=== PATIENT | female | born 1970 | race Caucasian/White ===

== ENCOUNTER 2022-03-14 11:56 | Observation (INO) | payer MEDICARE, OTHER ==
[2022-03-14] MEDS ORDERED: IPRATROPIUM-ALBUTEROL 3 ML NEB INHALATION STA (12:27)
[2022-03-14] MEDS ORDERED: methylPREDNISolone SOD SUCCI 125 MG/2 ML VIAL IV STA (12:27)
--- NOTE | 2022-03-14 12:56 | XR ---
EXAMINATION TYPE: XR chest 2V DATE OF EXAM: 03/14/2022 COMPARISON: NONE HISTORY: Difficulty in breathing. TECHNIQUE: Frontal and lateral views of the chest are obtained. FINDINGS: There is mild chronic emphysematous change without suspicious focal air space opacity, ple ural effusion, or pneumothorax seen. The cardiac silhouette size is within normal limits. Overlying EKG leads. Underlying scoliotic curvature in the upper lumbar spine is seen. IMPRESSION: Chronic emphysematous change without acute pulmonary process.
[2022-03-14 13:00] LABS: Basophils # (A) 0.1 k/uL (0-0.2); Basophils % (A) 1 %; Eosinophils # (A) 0.2 k/uL (0-0.7); Eosinophils % (A) 3 %; HCT 44.3 % (34.0-46.0); HGB 14.9 gm/dL (11.4-16.0); Lymphocytes # (A) 2.2 k/uL (1.0-4.8); Lymphocytes % (A) 40 %; MCH 33.5 pg (25.0-35.0); MCHC 33.6 g/dL (31.0-37.0); MCV 99.8 fL (80.0-100.0); Mean Platelet Volume 7.4; Monocytes # (A) 0.3 k/uL (0-1.0); Monocytes % (A) 6 %; Neutrophils # (A) 2.6 k/uL (1.3-7.7); Neutrophils % (A) 46 %; Platelet Count 308 k/uL (150-450); RBC 4.44 m/uL (3.80-5.40); RDW 12.9 % (11.5-15.5); WBC 5.5 k/uL (3.8-10.6)
[2022-03-14 13:19] LABS: INR 0.9 (<1.2); Prothrombin Time 10.3 sec (9.0-12.0)
[2022-03-14 13:21] LABS: ALT 21 U/L (4-34); AST 24 U/L (14-36); African American GFR (CKD) >90 (>60 ml/min/1.73 sqM); Albumin 4.9 g/dL (3.5-5.0); Alkaline Phosphatase 82 U/L (38-126); Anion Gap 5 mmol/L; Blood Urea Nitrogen 7 mg/dL (7-17); Calcium 9.2 mg/dL (8.4-10.2); Carbon Dioxide 30 mmol/L (22-30); Chloride 100 mmol/L (98-107); Glucose 92 mg/dL (74-99); Magnesium 2.1 mg/dL (1.6-2.3); Non-African American GFR(CKD) >90 (>60 ml/min/1.73 sqM); Potassium 4.2 mmol/L (3.5-5.1); Sodium 135 mmol/L (137-145); Total Bilirubin 0.5 mg/dL (0.2-1.3); Total Protein 7.2 g/dL (6.3-8.2)
--- NOTE | 2022-03-14 13:44 | ED ---
General Adult HPI - General Chief complaint: Shortness of Breath Stated complaint: asthma, COPD Time Seen by Provider: 03/14/22 12:16 Source: patient, RN notes reviewed Mode of arrival: ambulatory Limitations: no limitations - History of Present Illness Initial comments: This a 51-year-old female presents emergency Department with chief complaint of dyspnea. Patient states she has underlying asthma, COPD, HIV. Patient states that she is out of her medications unable to get them filled. She states she's been off for 10 days she states she's having increasing severe dyspnea and which she cannot complete a full sentence, she has difficulty and bleeding because the shortness of breath. She states she currently walk short distances. Patient reports increasing cough, cold like symptoms. Patient denies any abdominal pain. Patient states she is concerned that she is running out of her HIV medication is unable to obtain them. - Related Data Home Medications Medication Instructions Recorded Confirmed Albuterol Nebulized [Ventolin 2.5 mg INHALATION RT-Q4H PRN 03/14/22 03/14/22 Nebulized] Albuterol Sulfate [Albuterol 2 puff PO RT-Q6H PRN 03/14/22 03/14/22 Sulfate Hfa] Ascorbic Acid [Vitamin C] 500 mg PO DAILY 03/14/22 03/14/22 Bictegrav/Emtricit/Tenofov Ala 1 tab PO DAILY 03/14/22 03/14/22 [Biktarvy 50-200-25 mg Tablet] Cholecalciferol [Vitamin D3 (25 50 mcg PO DAILY 03/14/22 03/14/22 Mcg = 1000 Iu)] Ferrous Sulfate [Feosol] 325 mg PO DAILY 03/14/22 03/14/22 Fluticasone/Umeclidin/Vilanter 1 puff INHALATION RT-DAILY 03/14/22 03/14/22 [Trelegy Ellipta 200-62.5-25] Sertraline [Zoloft] 100 mg PO DAILY 03/14/22 03/14/22 traZODone HCL [Desyrel] 50 mg PO HS 03/14/22 03/14/22 Allergies Allergy/AdvReac Type Severity Reaction Status Date / Time Penicillins Allergy Anaphylaxis Verified 03/14/22 14:14 Review of Systems ROS Statement: Those systems with pertinent positive or pertinent negative responses have been documented in the HPI. ROS Other: All systems not noted in ROS Statement are negative. Past Medical History Past Medical History: Asthma, COPD Additional Past Medical History / Comment(s): hiv History of Any Multi-Drug Resistant Organisms: None Reported Past Surgical History: No Surgical Hx Reported Past Psychological History: Depression Smoking Status: Current every day smoker Past Alcohol Use History: None Reported Past Drug Use History: None Reported General Exam Limitations: no limitations General appearance: alert, in no apparent distress Head exam: Present: atraumatic, normocephalic, normal inspection Eye exam: Present: normal appearance, PERRL, EOMI. Absent: scleral icterus, conjunctival injection, periorbital swelling ENT exam: Present: normal exam, normal oropharynx, mucous membranes moist Neck exam: Present: normal inspection, full ROM. Absent: tenderness, meningismus, lymphadenopathy Respiratory exam: Present: respiratory distress, wheezes, decreased breath sounds. Absent: rales, rhonchi, stridor Cardiovascular Exam: Present: regular rate, normal rhythm, normal heart sounds. Absent: systolic murmur, diastolic murmur, rubs, gallop, clicks GI/Abdominal exam: Present: soft, normal bowel sounds. Absent: distended, tenderness, guarding, rebound, rigid Course Vital Signs 03/14/22 03/14/22 03/14/22 12:06 12:17 12:30 Temperature 98.1 F Pulse Rate 72 70 Respiratory 20 23 Rate Blood Pressure 161/109 160/100 O2 Sat by Pulse 100 97 98 Oximetry 03/14/22 03/14/22 03/14/22 13:00 13:05 13:15 Temperature Pulse Rate 63 66 65 Respiratory 20 Rate Blood Pressure 128/95 O2 Sat by Pulse 100 Oximetry 03/14/22 13:30 Temperature Pulse Rate 76 Respiratory 20 Rate Blood Pressure 138/99 O2 Sat by Pulse 99 Oximetry EKG Findings - EKG Comments: EKG Findings:: EKG performed at 12:17 sinus rhythm rate of 64 MS 157 QRS 80 QT/QTC 350/360 - EKG Results: EKG: interpreted by YIFAN Medical Decision Making - Medical Decision Making 51-year-old female presented for increasing dyspnea. Patient has Asthma, COPD, patient having acute exacerbation with no improvement after multiple treatments. Patiently admitted for IV steroids, further monitoring and she has HIV, - Lab Data Result diagrams: 03/14/22 12:33 03/14/22 12:33 Lab Results 03/14/22 03/14/22 03/14/22 Range/Units 12:33 12:33 12:33 WBC 5.5 (3.8-10.6) k/uL RBC 4.44 (3.80-5.40) m/uL Hgb 14.9 (11.4-16.0) gm/dL Hct 44.3 (34.0-46.0) % MCV 99.8 (80.0-100.0) fL MCH 33.5 (25.0-35.0) pg MCHC 33.6 (31.0-37.0) g/dL RDW 12.9 (11.5-15.5) % Plt Count 308 (150-450) k/uL MPV 7.4 Neutrophils % 46 % Lymphocytes % 40 % Monocytes % 6 % Eosinophils % 3 % Basophils % 1 % Neutrophils # 2.6 (1.3-7.7) k/uL Lymphocytes # 2.2 (1.0-4.8) k/uL Monocytes # 0.3 (0-1.0) k/uL Eosinophils # 0.2 (0-0.7) k/uL Basophils # 0.1 (0-0.2) k/uL PT 10.3 (9.0-12.0) sec INR 0.9 (<1.2) APTT 27.0 (22.0-30.0) sec Sodium 135 L (137-145) mmol/L Potassium 4.2 (3.5-5.1) mmol/L Chloride 100 (98-107) mmol/L Carbon Dioxide 30 (22-30) mmol/L Anion Gap 5 mmol/L BUN 7 (7-17) mg/dL Creatinine 0.62 (0.52-1.04) mg/dL Est GFR (CKD-EPI)AfAm >90 (>60 ml/min/1.73 sqM) Est GFR (CKD-EPI)NonAf >90 (>60 ml/min/1.73 sqM) Glucose 92 (74-99) mg/dL Plasma Lactic Acid Jarad (0.7-2.0) mmol/L Calcium 9.2 (8.4-10.2) mg/dL Magnesium 2.1 (1.6-2.3) mg/dL Total Bilirubin 0.5 (0.2-1.3) mg/dL AST 24 (14-36) U/L ALT 21 (4-34) U/L Alkaline Phosphatase 82 (38-126) U/L Troponin I (0.000-0.034) ng/mL NT-Pro-B Natriuret Pep pg/mL Total Protein 7.2 (6.3-8.2) g/dL Albumin 4.9 (3.5-5.0) g/dL 03/14/22 03/14/22 03/14/22 Range/Units 12:33 12:33 12:33 WBC (3.8-10.6) k/uL RBC (3.80-5.40) m/uL Hgb (11.4-16.0) gm/dL Hct (34.0-46.0) % MCV (80.0-100.0) fL MCH (25.0-35.0) pg MCHC (31.0-37.0) g/dL RDW (11.5-15.5) % Plt Count (150-450) k/uL MPV Neutrophils % % Lymphocytes % % Monocytes % % Eosinophils % % Basophils % % Neutrophils # (1.3-7.7) k/uL Lymphocytes # (1.0-4.8) k/uL Monocytes # (0-1.0) k/uL Eosinophils # (0-0.7) k/uL Basophils # (0-0.2) k/uL PT (9.0-12.0) sec INR (<1.2) APTT (22.0-30.0) sec Sodium (137-145) mmol/L Potassium (3.5-5.1) mmol/L Chloride (98-107) mmol/L Carbon Dioxide (22-30) mmol/L Anion Gap mmol/L BUN (7-17) mg/dL Creatinine (0.52-1.04) mg/dL Est GFR (CKD-EPI)AfAm (>60 ml/min/1.73 sqM) Est GFR (CKD-EPI)NonAf (>60 ml/min/1.73 sqM) Glucose (74-99) mg/dL Plasma Lactic Acid Jarad 1.0 (0.7-2.0) mmol/L Calcium (8.4-10.2) mg/dL Magnesium (1.6-2.3) mg/dL Total Bilirubin (0.2-1.3) mg/dL AST (14-36) U/L ALT (4-34) U/L Alkaline Phosphatase (38-126) U/L Troponin I <0.012 (0.000-0.034) ng/mL NT-Pro-B Natriuret Pep 55 pg/mL Total Protein (6.3-8.2) g/dL Albumin (3.5-5.0) g/dL Disposition Clinical Impression: COPD (chronic obstructive pulmonary disease), Acute respiratory distress, HIV disease Disposition: ADMITTED IP TO THIS HOSP Condition: Fair Is patient prescribed a controlled substance at d/c from ED?: No Referrals: None,Stated [Primary Care Provider] - 1-2 days Time of Disposition: 14:23
[2022-03-14] MEDS ORDERED: NALOXONE 0.4 MG/ML 1 ML VIAL IVP PRN (14:31)
[2022-03-14] MEDS ORDERED: IPRATROPIUM-ALBUTEROL 3 ML NEB INHALATION PRN (14:31)
[2022-03-14] MEDS: IPRATROPIUM-ALBUTEROL 3 ML NEB INHALATION SCH ×2 (17:18→21:06)
[2022-03-14] MEDS: methylPREDNISolone SOD SUCCI 125 MG/2 ML VIAL IV SCH (18:28)
[2022-03-14] MEDS ORDERED: DEXTROSE 50% SYRINGE 50 ML IVP PRN ×2 (18:50)
--- NOTE | 2022-03-14 19:08 | P.HPIM ---
History of Present Illness This is a pleasant 51 years old female with past medical history of COPD presents because of worsening dyspnea over the last 7-10 days, she stated productive cough with clear phlegm no hemoptysis. She is complaining of from chest pain in the lower lip gauge with cough only. 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 Patient is on 2 L oxygen via nasal cannula at home. She still smokes cigarettes and her 1 pack last 3 days, she states that she usually uses Chantix and she does not want a patch but she agrees to try to quit when she was counseled. Denies alcohol or illicit drugs. Vitals stable, afebrile saturating 98% on 2 L oxygen Labs reviewed showing unremarkable CBC, BMP, liver enzymes, troponin, proBNP. Influenza and Covid and RSV are undetected. Chest x-ray showing chronic emphysematous changes without acute pulmonary process. Patient was started on steroids and pulmonary team were consulted Patient states that she takes anti-HIV medication and she was following up with ID team in [place] before she moved to [place], she says she used to follow-up with Dr. Zaragoza and she will is willing to see him again Review of Systems Review of systems CONSTITUTIONAL: No fever, no malaise, no fatigue. HEENT: No recent visual problems or hearing problems. Denied any sore throat. CARDIOVASCULAR: No orthopnea, PND, no palpitations, no syncope. PULMONARY: No chest wall tenderness, no hemoptysis. GASTROINTESTINAL: No diarrhea, no nausea, no vomiting, no abdominal pain. Normoactive bowel sounds. NEUROLOGICAL: No headaches, no weakness, no numbness. HEMATOLOGICAL: Denies any bleeding or petechiae. GENITOURINARY: Denies any burning micturition, frequency, or urgency. MUSCULOSKELETAL/RHEUMATOLOGICAL: Denies any joint pain, swelling, or any muscle pain. ENDOCRINE: Denies any polyuria or polydipsia. Past Medical History Past Medical History: Asthma, COPD Additional Past Medical History / Comment(s): hiv History of Any Multi-Drug Resistant Organisms: None Reported Past Surgical History: No Surgical Hx Reported Past Psychological History: Depression Smoking Status: Current every day smoker Past Alcohol Use History: None Reported Past Drug Use History: None Reported Medications and Allergies Home Medications Medication Instructions Recorded Confirmed Type Albuterol Nebulized [Ventolin 2.5 mg INHALATION RT-Q4H PRN 03/14/22 03/14/22 History Nebulized] Albuterol Sulfate [Albuterol 2 puff PO RT-Q6H PRN 03/14/22 03/14/22 History Sulfate Hfa] Ascorbic Acid [Vitamin C] 500 mg PO DAILY 03/14/22 03/14/22 History Bictegrav/Emtricit/Tenofov Ala 1 tab PO DAILY 03/14/22 03/14/22 History [Biktarvy 50-200-25 mg Tablet] Cholecalciferol [Vitamin D3 (25 50 mcg PO DAILY 03/14/22 03/14/22 History Mcg = 1000 Iu)] Ferrous Sulfate [Feosol] 325 mg PO DAILY 03/14/22 03/14/22 History Fluticasone/Umeclidin/Vilanter 1 puff INHALATION RT-DAILY 03/14/22 03/14/22 History [Trelegy Ellipta 200-62.5-25] Sertraline [Zoloft] 100 mg PO DAILY 03/14/22 03/14/22 History traZODone HCL [Desyrel] 50 mg PO HS 03/14/22 03/14/22 History Allergies Allergy/AdvReac Type Severity Reaction Status Date / Time Penicillins Allergy Anaphylaxis Verified 03/14/22 14:14 Physical Exam Vitals: Vital Signs Temp Pulse Resp BP Pulse Ox 03/14/22 13:30 76 20 138/99 99 03/14/22 13:15 65 03/14/22 13:05 66 03/14/22 13:00 63 20 128/95 100 03/14/22 12:30 70 23 160/100 98 03/14/22 12:17 97 03/14/22 12:06 98.1 F 72 20 161/109 100 Intake and Output 03/13/22 03/14/22 03/14/22 22:59 06:59 14:59 Other: Weight 56.245 kg GENERAL: The patient is alert and oriented x3, not in any acute distress. Well developed, well nourished. HEENT: Pupils are round and equally reacting to light. EOMI. No scleral icterus. No conjunctival pallor. Normocephalic, atraumatic. No pharyngeal erythema. No thyromegaly. CARDIOVASCULAR: S1 and S2 present. No murmurs, rubs, or gallops. -PULMONARY: Chest is clear to auscultation, Bilateral expiratory wheezing. No crackles. ABDOMEN: Soft, nontender, nondistended, normoactive bowel sounds. No palpable organomegaly. MUSCULOSKELETAL: No joint swelling or deformity. EXTREMITIES: No cyanosis, clubbing, or pedal edema. NEUROLOGICAL: Gross neurological examination did not reveal any focal deficits. SKIN: No rashes. no petechiae. Results CBC & Chem 7: 03/14/22 12:33 03/14/22 12:33 Labs: Abnormal Lab Results - Last 24 Hours (Table) 03/14/22 Range/Units 12:33 Sodium 135 L (137-145) mmol/L Assessment and Plan Assessment: Acute COPD exacerbation Chronic hypoxic respiratory failure Patient with known diagnosis of HIV on a treatment Plan: Continue with IV Solu-Medrol Continue with bronchodilator Continue with home dose of oxygen Pulmonary consult Consult Dr. Zaragoza and resume her HIV medication Discontinue iron pills as hemoglobin is normal Labs and medication were reviewed.. Continue same treatment. Continue with symptomatic treatment. Resume home medication. Monitor lytes and vitals. DVT and GI prophylaxis. Further recommendations as per clinical course of the patient DVT prophylaxis: Subcutaneous heparin GI Prophylaxis: Pepcid
[2022-03-14] MEDS: traZODone HCL 50 MG TAB PO SCH (21:13)
[2022-03-14] MEDS: FAMOTIDINE 20 MG/2 ML VIAL IV SCH (21:13)
[2022-03-14] MEDS: HEPARIN SODIUM,PORCINE/PF 5,000 UNIT/0.5 ML SYRINGE SQ SCH (21:13)
[2022-03-14 22:08] LABS: Glucose,Whole Blood 168 mg/dL (70-110)
[2022-03-14] MEDS: INSULIN ASPART (NovoLOG) 100 UNIT/ML VIAL SQ SCH (22:14)
[2022-03-15] MEDS: methylPREDNISolone SOD SUCCI 125 MG/2 ML VIAL IV SCH ×4 (00:11→16:59)
[2022-03-15 06:53] LABS: Glucose,Whole Blood 143 mg/dL (70-110)
[2022-03-15] MEDS: INSULIN ASPART (NovoLOG) 100 UNIT/ML VIAL SQ SCH ×4 (06:56→21:49)
--- NOTE | 2022-03-15 06:57 | P.CNPUL ---
History of Present Illness Consult date: 03/15/22 Requesting physician: Kendall E Airstides Reason for consult: dyspnea, cough, COPD, hypoxemia Chief complaint: Shortness of breath, cough, wheezing. History of present illness: Pulmonary consult dated 03/15/2022. 51-year-old female who recently moved back to [place] from [place]. The patient does not have a family doctor. She presented to the emergency room on March 14, complaining of increasing shortness of breath. She has had a history of COPD, and HIV. The patient does not have a family doctor in this area. She's been smoking for many years. She comes in complaining of shortness of breath, cough, with occasional phlegm production, and wheezing. Currently, she is on 2 L of oxygen. She's not receiving any IV fluids. At home, she typically will have a nebulizer machine, a concentrator, an albuterol inhaler, and a Trelegy inhaler. She does not have any medications available to her at this time. She was admitted to the emergency department with a COPD exacerbation. CBC was normal. Coagulation studies were normal. Chemistry was essentially normal. Glucose 168. Troponin was negative. N-terminal proBNP was 55. Testing for influenza A and influenza B, RSV, and coronavirus, were all negative. Chest x-ray showed chronic emphysematous changes without acute abnormality. Review of Systems REVIEW OF SYSTEMS: CONSTITUTIONAL: [Negative.] NEUROLOGIC: [ Negative.] HEENT: [ Negative.] CARDIAC: [Negative.] PULMONARY: Shortness of breath, cough, and wheezing, with occasional phlegm production. GI: [Negative.] : [Negative.] RHEUMATOLOGIC: [ Negative.] IMMUNOLOGIC: [ Negative.] ENDOCRINE: [Negative. ] DERMATOLOGIC: [Negative.] Past Medical History Past Medical History: Asthma, COPD Additional Past Medical History / Comment(s): hiv History of Any Multi-Drug Resistant Organisms: None Reported Past Surgical History: No Surgical Hx Reported Past Psychological History: Depression Smoking Status: Current every day smoker Past Alcohol Use History: None Reported Past Drug Use History: None Reported Medications and Allergies Home Medications Medication Instructions Recorded Confirmed Type Albuterol Nebulized [Ventolin 2.5 mg INHALATION RT-Q4H PRN 03/14/22 03/14/22 History Nebulized] Albuterol Sulfate [Albuterol 2 puff PO RT-Q6H PRN 03/14/22 03/14/22 History Sulfate Hfa] Ascorbic Acid [Vitamin C] 500 mg PO DAILY 03/14/22 03/14/22 History Bictegrav/Emtricit/Tenofov Ala 1 tab PO DAILY 03/14/22 03/14/22 History [Biktarvy 50-200-25 mg Tablet] Cholecalciferol [Vitamin D3 (25 50 mcg PO DAILY 03/14/22 03/14/22 History Mcg = 1000 Iu)] Ferrous Sulfate [Feosol] 325 mg PO DAILY 03/14/22 03/14/22 History Fluticasone/Umeclidin/Vilanter 1 puff INHALATION RT-DAILY 03/14/22 03/14/22 History [Trelegy Ellipta 200-62.5-25] Sertraline [Zoloft] 100 mg PO DAILY 03/14/22 03/14/22 History traZODone HCL [Desyrel] 50 mg PO HS 03/14/22 03/14/22 History Allergies Allergy/AdvReac Type Severity Reaction Status Date / Time Penicillins Allergy Anaphylaxis Verified 03/14/22 14:14 Physical Exam Osteopathic Statement: *. No significant issues noted on an osteopathic structural exam other than those noted in the History and Physical/Consult. Vitals: Vital Signs Temp Pulse Pulse Resp BP BP Pulse Ox 03/15/22 02:49 97.6 F 71 19 102/70 94 L 03/14/22 19:59 98.8 F 78 18 120/72 99 03/14/22 18:09 98.6 F 76 17 139/82 98 03/14/22 17:57 97.8 F 82 20 137/82 99 03/14/22 17:34 72 03/14/22 17:18 68 03/14/22 17:00 71 21 130/80 100 03/14/22 16:00 66 20 131/75 98 03/14/22 15:00 67 22 124/93 99 03/14/22 14:00 74 20 153/75 100 03/14/22 13:30 76 20 138/99 99 03/14/22 13:15 65 03/14/22 13:05 66 03/14/22 13:00 63 20 128/95 100 03/14/22 12:30 70 23 160/100 98 03/14/22 12:17 97 03/14/22 12:06 98.1 F 72 20 161/109 100 Intake and Output 03/14/22 03/14/22 03/15/22 14:59 22:59 06:59 Other: Voiding Method Toilet # Voids 2 2 Weight 56.245 kg 56.245 kg No acute distress, oriented 3. No conversational dyspnea, audible wheezing, or use of accessory muscles. HEENT examination is grossly unremarkable. Neck supple. Full range of motion. No adenopathy thyromegaly or neck vein distention. Cardiovascular examination reveals regular rhythm rate. S1-S2 normal. No S3 or S4. No discernible murmur noted. Heart rate 71 bpm. Lungs reveal diffuse and course, bilateral inspiratory and expiratory rhonchi and wheezes. No crackles. Chest is rather noisy. 2 L saturation is 94%. Abdomen soft bowel sounds are heard. No masses or tenderness. Extremities are intact. No cyanosis clubbing or edema. Skin is without rash or lesion. Neurologic examination is brief but nonfocal. Results - Laboratory Findings CBC and BMP: 03/14/22 12:33 03/14/22 12:33 PT/INR, D-dimer PT 10.3 sec (9.0-12.0) 03/14/22 12:33 INR 0.9 (<1.2) 03/14/22 12:33 Abnormal lab findings: Abnormal Labs 03/14/22 03/14/22 12:33 22:07 Sodium 135 L POC Glucose (mg/dL) 168 H - Diagnostic Findings Chest x-ray: image reviewed Assessment and Plan Assessment: Acute COPD exacerbation, likely complicated by purulent tracheobronchitis. History of ongoing tobacco use with nicotine addition. History of HIV. Plan: Plan dated 03/15/2022. The patient is getting Solu-Medrol 60 mg every 6 hours. She is also getting 4 times a day and when necessary albuterol sulfate and ipratropium bromide. I will add Symbicort 160/4.5, 2 puffs twice a day, and a short course of oral antibiotics. She's counseled about the importance of smoking cessation. Nicotine patch should be added. We'll continue to follow. She will need to get a family doctor in this area. Time with Patient: Greater than 30
[2022-03-15] MEDS ORDERED: FERROUS SULFATE 325 MG TAB PO SCH (09:00)
[2022-03-15] MEDS: NICOTINE 14MG/24HR PATCH TRANSDERM SCH (09:02)
[2022-03-15] MEDS: CHOLECALCIFEROL 25 MCG (1000 IU) TABLET PO SCH (09:02)
[2022-03-15] MEDS: SERTRALINE 100 MG TAB PO SCH (09:02)
[2022-03-15] MEDS: FAMOTIDINE 20 MG/2 ML VIAL IV SCH (09:02)
[2022-03-15] MEDS: ASCORBIC ACID 500 MG TAB PO SCH (09:02)
[2022-03-15] MEDS: AZITHROMYCIN 500 MG TAB PO SCH (09:02)
[2022-03-15] MEDS: HEPARIN SODIUM,PORCINE/PF 5,000 UNIT/0.5 ML SYRINGE SQ SCH ×2 (09:02→21:49)
[2022-03-15] MEDS: IPRATROPIUM-ALBUTEROL 3 ML NEB INHALATION SCH ×4 (09:11→19:50)
[2022-03-15] MEDS: SYMBICORT 160-4.5 MCG INHALER INHALATION SCH ×2 (09:11→19:50)
[2022-03-15 12:05] LABS: Glucose,Whole Blood 162 mg/dL (70-110)
--- NOTE | 2022-03-15 12:50 | P.PN ---
Subjective This is a pleasant 51 years old female with past medical history of COPD presents because of worsening dyspnea over the last 7-10 days, she stated p roductive cough with clear phlegm no hemoptysis. She is complaining of from chest pain in the lower lip gauge with cough only. 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 Patient is on 2 L oxygen via nasal cannula at home. She still smokes cigarettes and her 1 pack last 3 days, she states that she usually uses Chantix and she does not want a patch but she agrees to try to quit when she was counseled. Denies alcohol or illicit drugs. Vitals stable, afebrile saturating 98% on 2 L oxygen Labs reviewed showing unremarkable CBC, BMP, liver enzymes, troponin, proBNP. Influenza and Covid and RSV are undetected. Chest x-ray showing chronic emphysematous changes without acute pulmonary process. Patient was started on steroids and pulmonary team were consulted Patient states that she takes anti-HIV medication and she was following up with ID team in [place] before she moved to [place], she says she used to follow-up with Dr. Zaragoza and she will is willing to see him again 03/15/2012 She is sitting up in bed, looks comfortable, minimal wheezing and dyspnea/tachypnea at rest. Chest x-ray showed chronic emphysematous changes Continue with IV Solu-Medrol Pulmonary consult Possible discharge in 24-48 or once pulmonary team clear The patient for dc Objective - Vital Signs Vital signs: Vital Signs Temp 98.1 F 03/15/22 07:00 Pulse 68 03/15/22 12:42 Resp 16 03/15/22 07:00 BP 116/73 03/15/22 07:00 Pulse Ox 98 03/15/22 09:14 FiO2 Intake & Output 03/14/22 03/15/22 03/15/22 18:59 06:59 18:59 Weight 56.245 kg Other: Voiding Method Toilet # Voids 2 - Exam GENERAL: The patient is alert and oriented x3, not in any acute distress. Well developed, well nourished. HEENT: Pupils are round and equally reacting to light. EOMI. No scleral icterus. No conjunctival pallor. Normocephalic, atraumatic. No pharyngeal erythema. No thyromegaly. CARDIOVASCULAR: S1 and S2 present. No murmurs, rubs, or gallops. -PULMONARY: Chest is clear to auscultation, scattered wheezing. No crepitation ABDOMEN: Soft, nontender, nondistended, normoactive bowel sounds. No palpable organomegaly. MUSCULOSKELETAL: No joint swelling or deformity. EXTREMITIES: No cyanosis, clubbing, or pedal edema. NEUROLOGICAL: Gross neurological examination did not reveal any focal deficits. SKIN: No rashes. no petechiae. - Labs CBC & Chem 7: 03/14/22 12:33 03/14/22 12:33 Labs: Abnormal Lab Results - Last 24 Hours (Table) 03/14/22 03/14/22 03/15/22 Range/Units 12:33 22:07 06:52 Sodium 135 L (137-145) mmol/L POC Glucose (mg/dL) 168 H 143 H (70-110) mg/dL 03/15/22 Range/Units 12:03 Sodium (137-145) mmol/L POC Glucose (mg/dL) 162 H (70-110) mg/dL Assessment and Plan Assessment: Acute COPD exacerbation Chronic hypoxic respiratory failure Patient with known diagnosis of HIV on a treatment Plan: Continue with IV Solu-Medrol Continue with bronchodilator Continue with home dose of oxygen Pulmonary consult Consult Dr. Zaragoza and resume her HIV medication Discontinue iron pills as hemoglobin is normal Labs and medication were reviewed.. Continue same treatment. Continue with symptomatic treatment. Resume home medication. Monitor lytes and vitals. DVT and GI prophylaxis. Further recommendations as per clinical course of the patient DVT prophylaxis: Subcutaneous heparin GI Prophylaxis: Pepcid
[2022-03-15 16:32] LABS: Glucose,Whole Blood 155 mg/dL (70-110)
[2022-03-15 21:46] LABS: Glucose,Whole Blood 181 mg/dL (70-110)
[2022-03-15] MEDS: FAMOTIDINE 20 MG TAB PO SCH (21:48)
[2022-03-15] MEDS: traZODone HCL 50 MG TAB PO SCH (21:48)
--- NOTE | 2022-03-15 23:56 | P.CONS ---
History of Present Illness - Reason for Consult Consult date: 03/15/22 - History of Present Illness Patient is a 51-year female with a past medical history difficult for HIV for many years patient currently has been on Biktarvy and the patient has previously followed with me however subsequently moved to [place] and has been following with an ID physician there patient has moved back to [place] however has not established with me in the office patient presented to [facility] yesterday afternoon for evaluation of increasing shortness of breath in this patient symptom has been getting worse for a day or 2 before presentation to the hospital patient mention she did use some inhaler without any improvement has been complaining of mostly shortness of breath but denies have any worsening cough or sputum production denies having any fever or any chills no nausea vomit ing no abdominal pain or any diarrhea patient on presentation to the hospital was afebrile and no fever has been recorded subsequently patient did have normal white count kidney function has been normal liver enzymes are normal patient did have a negative COVID RSV and influenza PCR patient did have a chest x-ray chronic emphysematous changes without acute process patient was admitted to hospital for COPD exacerbation infectious he was consulted for management of her HIV during this hospital stay and need for antibiotic therapy Past Medical History Past Medical History: Asthma, COPD Additional Past Medical History / Comment(s): hiv History of Any Multi-Drug Resistant Organisms: None Reported Past Surgical History: No Surgical Hx Reported Past Psychological History: Depression Smoking Status: Current every day smoker Past Alcohol Use History: None Reported Past Drug Use History: None Reported Medications and Allergies Home Medications Medication Instructions Recorded Confirmed Type Albuterol Nebulized [Ventolin 2.5 mg INHALATION RT-Q4H PRN 03/14/22 03/14/22 History Nebulized] Albuterol Sulfate [Albuterol 2 puff PO RT-Q6H PRN 03/14/22 03/14/22 History Sulfate Hfa] Ascorbic Acid [Vitamin C] 500 mg PO DAILY 03/14/22 03/14/22 History Bictegrav/Emtricit/Tenofov Ala 1 tab PO DAILY 03/14/22 03/14/22 History [Biktarvy 50-200-25 mg Tablet] Cholecalciferol [Vitamin D3 (25 50 mcg PO DAILY 03/14/22 03/14/22 History Mcg = 1000 Iu)] Ferrous Sulfate [Feosol] 325 mg PO DAILY 03/14/22 03/14/22 History Fluticasone/Umeclidin/Vilanter 1 puff INHALATION RT-DAILY 03/14/22 03/14/22 History [Trelegy Ellipta 200-62.5-25] Sertraline [Zoloft] 100 mg PO DAILY 03/14/22 03/14/22 History traZODone HCL [Desyrel] 50 mg PO HS 03/14/22 03/14/22 History Bictegrav/Emtricit/Tenofov Ala 1 each PO DAILY #30 tab 03/15/22 Rx [Biktarvy 50-200-25 mg Tablet] Allergies Allergy/AdvReac Type Severity Reaction Status Date / Time Penicillins Allergy Anaphylaxis Verified 03/14/22 14:14 Physical Exam Vitals: Vital Signs Temp Pulse Pulse Resp BP BP Pulse Ox 03/15/22 09:22 74 03/15/22 09:14 98 03/15/22 09:11 68 03/15/22 07:00 98.1 F 68 16 116/73 100 03/15/22 02:49 97.6 F 71 19 102/70 94 L 03/14/22 19:59 98.8 F 78 18 120/72 99 03/14/22 18:09 98.6 F 76 17 139/82 98 03/14/22 17:57 97.8 F 82 20 137/82 99 03/14/22 17:34 72 03/14/22 17:18 68 03/14/22 17:00 71 21 130/80 100 03/14/22 16:00 66 20 131/75 98 03/14/22 15:00 67 22 124/93 99 03/14/22 14:00 74 20 153/75 100 03/14/22 13:30 76 20 138/99 99 03/14/22 13:15 65 03/14/22 13:05 66 03/14/22 13:00 63 20 128/95 100 03/14/22 12:30 70 23 160/100 98 03/14/22 12:17 97 03/14/22 12:06 98.1 F 72 20 161/109 100 Intake and Output 03/14/22 03/15/22 03/15/22 22:59 06:59 14:59 Other: Voiding Method Toilet # Voids 2 2 Weight 56.245 kg Results CBC & Chem 7: 03/14/22 12:33 03/14/22 12:33 Labs: Abnormal Lab Results - Last 24 Hours (Table) 03/14/22 03/14/22 03/15/22 Range/Units 12:33 22:07 06:52 Sodium 135 L (137-145) mmol/L POC Glucose (mg/dL) 168 H 143 H (70-110) mg/dL Assessment and Plan Plan: 1patient with HIV for many years for the patient has been on Biktarvy and apparently the patient did have a controlled virological response with it prescription for Biktarvy has been sent to the pharmacy downstairs RN has been instructed was the patient received her prescription to send it on to the pharmacy to label it so the patient can receive her Biktarvy while the patient is in the hospital. 2 Patient with increasing shortness of breath more likely COPD exacerbation clinically not behaving as pneumonia no need for antibiotic therapy continue with the steroids and bronchodilator per pulmonary We will follow on clinical condition and cultures to further adjust medication if needed Thank you for this consultation will follow this patient along with you Time with Patient: Greater than 30
[2022-03-16] MEDS: methylPREDNISolone SOD SUCCI 125 MG/2 ML VIAL IV SCH ×2 (00:23→06:13)
[2022-03-16 06:08] LABS: Glucose,Whole Blood 137 mg/dL (70-110)
[2022-03-16] MEDS: INSULIN ASPART (NovoLOG) 100 UNIT/ML VIAL SQ SCH (06:11)
[2022-03-16 06:51] VITALS: BP 118/69; RESP 18; TEMP 97.7
--- NOTE | 2022-03-16 06:52 | P.PN ---
Subjective Progress Note Date: 03/16/22 Principal diagnosis: Shortness of breath. Pulmonary consult dated 03/15/2022. 51-year-old female who recently moved back to [place] from [place]. The patient does not have a family doctor. She presented to the emergency room on March 14, complaining of increasing shortness of breath. She has had a history of COPD, and HIV. The patient does not have a family doctor in this area. She's been smoking for many years. She comes in complaining of shortness of breath, cough, with occasional phlegm production, and wheezing. Currently, she is on 2 L of oxygen. She's not receiving any IV fluids. At home, she typically will have a nebulizer machine, a concentrator, an albuterol inhaler, and a Trelegy inhaler. She does not have any medications available to her at this time. She was admitted to the emergency department with a COPD exacerbation. CBC was normal. Coagulation studies were normal. Chemistry was essentially normal. Glucose 168. Troponin was negative. N-terminal proBNP was 55. Testing for influenza A and influenza B, RSV, and coronavirus, were all negative. Chest x-ray showed chronic emphysematous changes without acute abnormality. Progress note dated 03/16/2022. 51-year-old female, seen yesterday in consultation. She is seen again today is 632. The patient has a history of COPD, and is HIV positive. She came in basically with a COPD exacerbation. Has a history of ongoing heavy tobacco use. Currently, she is on room air. She's not receiving any IV fluids. She is doing much better today than she did yesterday. No new labs today other than a glucose of 137. The patient was given Zithromax, Symbicort, albuterol sulfate, ipratropium bromide, and Solu-Medrol. In my opinion, the patient has improved significantly since yesterday, and could be considered for possible discharge. Objective - Vital Signs Vital signs: Vital Signs Temp 97.9 F 03/16/22 03:39 Pulse 86 03/16/22 03:39 Resp 16 03/16/22 03:39 BP 113/73 03/16/22 03:39 Pulse Ox 92 L 03/16/22 03:39 FiO2 Intake & Output 03/15/22 03/15/22 03/16/22 06:59 18:59 06:59 Intake Total 236 Balance 236 Intake: Oral 236 Other: Voiding Method Toilet Toilet # Voids 2 1 1 - Exam No acute distress, oriented 3. No conversational dyspnea, audible wheezing, or use of accessory muscles. HEENT examination is grossly unremarkable. Neck supple. Full range of motion. No adenopathy thyromegaly or neck vein distention. Cardiovascular examination reveals regular rhythm rate. S1-S2 normal. No S3 or S4. No discernible murmur noted. Heart rate 86 bpm. Lungs reveal much improved bilateral breath sounds. Minimal scattered rhonchi. No wheezes or crackles. Breath sounds are diminished throughout. Abdomen soft bowel sounds are heard. No masses or tenderness. Extremities are intact. No cyanosis clubbing or edema. Skin is without rash or lesion. Neurologic examination is brief but nonfocal. - Labs CBC & Chem 7: 03/14/22 12:33 03/14/22 12:33 Labs: Abnormal Lab Results - Last 24 Hours (Table) 03/15/22 03/15/22 03/15/22 Range/Units 06:52 12:03 16:29 POC Glucose (mg/dL) 143 H 162 H 155 H (70-110) mg/dL 03/15/22 03/16/22 Range/Units 21:45 06:07 POC Glucose (mg/dL) 181 H 137 H (70-110) mg/dL Assessment and Plan Assessment: Acute COPD exacerbation, likely complicated by purulent tracheobronchitis. History of ongoing tobacco use with nicotine addition. History of HIV. Plan: Plan dated 03/15/2022. The patient is getting Solu-Medrol 60 mg every 6 hours. She is also getting 4 times a day and when necessary albuterol sulfate and ipratropium bromide. I will add Symbicort 160/4.5, 2 puffs twice a day, and a short course of oral antibiotics. She's counseled about the importance of smoking cessation. Nicotine patch should be added. We'll continue to follow. She will need to get a family doctor in this area. Plan dated 03/16/2022. The patient's much improved. She was not receiving any supplemental fluids, or oxygen. She sitting up in bed. There is no conversational dyspnea, or audible wheezing, or use of accessory muscles. In my opinion, the patient's much better. She is counseled about the importance of smoking cessation. She will need to find a family doctor. She could also be considered for discharge. I sent her home on albuterol, Symbicort, or equivalent, and prednisone with a burst and taper. Prednisone should be 40 mg, for 4 days, 30 mg for 4 days, 20 mg for 4 days, 10 mg 4 days, then stop. The patient's overall prognosis is guarded. I seriously doubt that she'll stop smoking. Time with Patient: Less than 30
[2022-03-16] MEDS: SYMBICORT 160-4.5 MCG INHALER INHALATION SCH (08:14)
[2022-03-16] MEDS: IPRATROPIUM-ALBUTEROL 3 ML NEB INHALATION SCH ×2 (08:15→11:20)
[2022-03-16] MEDS: HEPARIN SODIUM,PORCINE/PF 5,000 UNIT/0.5 ML SYRINGE SQ SCH (09:52)
[2022-03-16] MEDS: NICOTINE 14MG/24HR PATCH TRANSDERM SCH (09:52)
[2022-03-16] MEDS: AZITHROMYCIN 500 MG TAB PO SCH (09:53)
[2022-03-16] MEDS: CHOLECALCIFEROL 25 MCG (1000 IU) TABLET PO SCH (09:53)
[2022-03-16] MEDS: FAMOTIDINE 20 MG TAB PO SCH (09:53)
[2022-03-16] MEDS: SERTRALINE 100 MG TAB PO SCH (09:53)
[2022-03-16] MEDS: ASCORBIC ACID 500 MG TAB PO SCH (09:53)
[2022-03-16 11:29] VITALS: PULSE 78
[2022-03-16 12:09] LABS: Glucose,Whole Blood 132 mg/dL (70-110)
--- NOTE | 2022-03-16 22:23 | P.DS ---
Providers Date of admission: 03/14/22 15:22 Attending physician: Kendall Irving MD Consults: 03/14/22 14:31 Consult Physician Routine Consulting Provider: Davin Pro Consult Reason/Comments: copd Do you want consulting provider notified?: Yes 03/14/22 19:04 Consult Physician Routine Consulting Provider: Tushar Zaragoza Consult Reason/Comments: HIV Do you want consulting provider notified?: Yes, Notify in am Primary care physician: Stated None Hospital Course: Diagnoses: Acute COPD exacerbation Chronic hypoxic respiratory failure Patient with known diagnosis of HIV on a treatment Hospital course: This is a pleasant 51 years old female with past medical history of COPD presents because of worsening dyspnea over the last 7-10 days, she stated productive cough with clear phlegm no hemoptysis. She is complaining of from chest pain in the lower lip gauge with cough only. 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 Patient is on 2 L oxygen via nasal cannula at home. Patient admitted with COPD exacerbation and she was treated with IV Solu-Medrol, bronchodilator and short course of oral antibiotics and she showed interval improvement in her breathing is significantly improved and she does not need supplemental oxygen. She is on 2 L oxygen at home but she does not use it all the time and she has tabletop oxygen concentrator at home as well. On the day of discharge she denies chest pain or dyspnea. No GI or urinary symptoms. No fever. She is breathing quietly with his having muscles and she agrees to go home today Patient was cleared for discharge by welding machine operator plasma arc Problems and management plan were discussed with the patient and he verbalized understanding and acceptance Patient was found stable and can be discharged home in guarded prognosis however he needs follow-up as an outpatient. Patient was instructed to follow up with PCP within one week and patient agrees Patient was instructed to call her insurance provider to find PCP and she agrees Patient was instructed to follow up with Dr. Pro in [address] Zaragoza for her HIV treatment in 2 weeks and she agrees Physical exam Gen: patient is a AAOx3, no distress CVS: S1-S2, RRR, no murmur Lungs: B/L CTA, no wheezing Abdomen: soft, no distention, no tenderness, positive bowel sounds Extremity: no leg edema or induration Time spent more than 35 minutes Patient Condition at Discharge: Good Plan - Discharge Summary Discharge Rx Participant: No New Discharge Prescriptions: New INSULIN ASPART (NovoLOG) [NovoLOG (formulary)] 0 unit SQ ACHS each predniSONE 10 mg PO DIRECTED #40 tab Bictegrav/Emtricit/Tenofov Ala [Biktarvy 50-200-25 mg Tablet] 1 each PO DAILY #30 tab Famotidine [Pepcid] 20 mg PO BID #60 tab Budesonide-Formot 160-4.5 Mcg [Symbicort 160-4.5 Mcg Inhaler] 2 puff INHALATION RT-BID 30 Days #1 each Continue Albuterol Sulfate [Albuterol Sulfate Hfa] 2 puff PO RT-Q6H PRN PRN Reason: Shortness Of Breath traZODone HCL [Desyrel] 50 mg PO HS #15 tab Albuterol Nebulized [Ventolin Nebulized] 2.5 mg INHALATION RT-Q4H PRN #10 ml PRN Reason: Shortness Of Breath Cholecalciferol [Vitamin D3 (25 Mcg = 1000 Iu)] 50 mcg PO DAILY #20 tab Sertraline [Zoloft] 100 mg PO DAILY #30 tab Ascorbic Acid [Vitamin C] 500 mg PO DAILY #30 tab Discontinued Fluticasone/Umeclidin/Vilanter [Trelegy Ellipta 200-62.5-25] 1 puff INHALATION RT-DAILY Bictegrav/Emtricit/Tenofov Ala [Biktarvy 50-200-25 mg Tablet] 1 tab PO DAILY No Action Ferrous Sulfate [Feosol] 325 mg PO DAILY Discharge Medication List Albuterol Sulfate [Albuterol Sulfate Hfa] 2 puff PO RT-Q6H PRN 03/14/22 [History] Ferrous Sulfate [Feosol] 325 mg PO DAILY 03/14/22 [History] Bictegrav/Emtricit/Tenofov Ala [Biktarvy 50-200-25 mg Tablet] 1 each PO DAILY #30 tab 03/15/22 [Rx] Albuterol Nebulized [Ventolin Nebulized] 2.5 mg INHALATION RT-Q4H PRN #10 ml 03/16/22 [Rx] Ascorbic Acid [Vitamin C] 500 mg PO DAILY #30 tab 03/16/22 [Rx] Budesonide-Formot 160-4.5 Mcg [Symbicort 160-4.5 Mcg Inhaler] 2 puff INHALATION RT-BID 30 Days #1 each 03/16/22 [Rx] Cholecalciferol [Vitamin D3 (25 Mcg = 1000 Iu)] 50 mcg PO DAILY #20 tab 03/16/22 [Rx] Famotidine [Pepcid] 20 mg PO BID #60 tab 03/16/22 [Rx] INSULIN ASPART (NovoLOG) [NovoLOG (formulary)] 0 unit SQ ACHS each 03/16/22 [Rx] Sertraline [Zoloft] 100 mg PO DAILY #30 tab 03/16/22 [Rx] predniSONE 10 mg PO DIRECTED #40 tab 03/16/22 [Rx] traZODone HCL [Desyrel] 50 mg PO HS #15 tab 03/16/22 [Rx] Follow up Appointment(s)/Referral(s): Davin Pro DO [Doctor of Osteopathic Medicine] - 04/15/22 10:15 am None,Stated [Primary Care Provider] - 1-2 days Tushar Zaragoza MD [STAFF PHYSICIAN] - 03/28/22 2:00 pm Patient Instructions/Handouts: Famotidine (By mouth), Trazodone (By mouth), Albuterol (By breathing), Prednisone (By mouth), Ascorbic Acid (By mouth), Sertraline (By mouth), Vitamin D (By mouth), Budesonide/Formoterol (By breathing), Bictegravir/Emtricitabine/Tenofovir Alafenamide (By mouth), How to Stop Smoking (DC), COPD (Chronic Obstructive Pulmonary Disease) (DC), Basic Carbohydrate Counting (DC) Activity/Diet/Wound Care/Special Instructions: Low carbohydrate diet Activity is restricted till you see your doctor Call your health insurance provider to find nearby primary care doctor, call and make appointment within 1 week Discharge Disposition: HOME SELF-CARE
== END 2022-03-16 13:32 | disposition home or self-care (01) ==
LOC: EC 11:56 → 6NMEDSUR 15:22
PROVIDERS: ADMIT Internal Medicine; ATTEND Internal Medicine
DX: J44.1 Chronic obstructive pulmonary disease with (acute) exacerbation (principal); J96.11 Chronic respiratory failure with hypoxia; F32.A Depression, unspecified; B20 Human immunodeficiency virus [HIV] disease; F17.210 Nicotine dependence, cigarettes, uncomplicated; Z79.899 Other long term (current) drug therapy; Z88.0 Allergy status to penicillin; Z20.822 Contact with and (suspected) exposure to COVID-19
CPT/HCPCS: 96372 ×3; 96375; 96376 ×3; 96374; 99285; 36415; 94640 ×6; 94760 ×2; 93005; 83880; 80053; 83605; 83735; 84484; 85025; 85610; 85730; 83036; 87636; 71046; G0378 ×3; S4990 ×2; J2930 ×3; J1644 ×3

== ENCOUNTER → 2023-03-10 | Outpatient (CLI) | payer MEDICARE ==
--- NOTE | 2023-03-13 12:46 | MM ---
Reason for Exam: Screening (asymptomatic). Last mammogram was performed 11 year(s) and 0 month(s) ago. Patient History: Menarche at age 10. Patient has no children. Postmenopausal. 2007, Excisional Biopsy on the Left side. Paternal aunt had breast cancer. Risk Values: Princess 5 year model risk: 1.6%. NCI Lifetime model risk: 12.0%. Prior Study Comparison: 03/15/2012 Bilateral Diagnostic Mammogram, [facility]. 03/28/2012 Right Diagnostic Mammogram, [facility]. 09/27/2012 Right Diagnostic Mammogram, [facility]. Tissue Density: The breast tissue is heterogeneously dense. This may lower the sensitivity of mammography. Findings: Analyzed By CAD. There is no suspicious group of microcalcifications or new suspicious mass in either breast. Overall Assessment: Benign, BI-RAD 2 Management: Screening Mammogram of both breasts in 1 year. . Patient should continue monthly self-breast exams. A clinical breast exam by your physician is recommended on an annual basis. This exam should not preclude additional follow-up of suspicious palpable abnormalities. Note on Princess scores and lifetime risk: 1. A Princess score greater than 3% is considered moderate risk. If this is the case, consider specialist referral to assess eligibility for a risk reducing agent. 2. If overall lifetime risk for the development of breast cancer is 20% or higher, the patient may qualify for future screening with alternating mammogram and breast MRI. Electronically signed and approved by: Thiago Ortega M.D. Radiologis
== END | disposition home or self-care (01) ==
LOC: RADMAMWWP 13:54
PROVIDERS: ATTEND Family Medicine
DX: Z12.31 Encounter for screening mammogram for malignant neoplasm of breast (principal); Z78.0 Asymptomatic menopausal state; Z80.3 Family history of malignant neoplasm of breast
CPT/HCPCS: 77063; 77067

== ENCOUNTER 2023-08-10 12:59 | Inpatient (IN) | payer MEDICARE, OTHER ==
--- NOTE | 2023-08-10 13:15 | ED ---
General Adult HPI - General Chief complaint: Shortness of Breath Stated complaint: SOB Time Seen by Provider: 08/10/23 13:09 Source: patient, EMS, RN notes reviewed Mode of arrival: EMS Limitations: no limitations - History of Present Illness Initial comments: Patient is a 52-year-old female presenting to the emergency department with difficulty breathing. Symptoms have been present for the past 3 days. Occasional cough, nonproductive. No fever or recent upper respiratory infection. No calf pain or leg swelling. Patient does have history of similar symptoms previously associated with COPD. Patient is a former smoker. - Related Data Home Medications Medication Instructions Recorded Confirmed Albuterol Sulfate [Albuterol 2 puff PO RT-Q6H PRN 03/14/22 03/14/22 Sulfate Hfa] Ferrous Sulfate [Feosol] 325 mg PO DAILY 03/14/22 03/14/22 Previous Rx's Medication Instructions Recorded Bictegrav/Emtricit/Tenofov Ala 1 each PO DAILY #30 tab 03/15/22 [Biktarvy 50-200-25 mg Tablet] Albuterol Nebulized [Ventolin 2.5 mg INHALATION RT-Q4H PRN #10 ml 03/16/22 Nebulized] Ascorbic Acid [Vitamin C] 500 mg PO DAILY #30 tab 03/16/22 Budesonide-Formot 160-4.5 Mcg 2 puff INHALATION RT-BID 30 Days 03/16/22 [Symbicort 160-4.5 Mcg Inhaler] #1 each Cholecalciferol [Vitamin D3 (25 50 mcg PO DAILY #20 tab 03/16/22 Mcg = 1000 Iu)] Famotidine [Pepcid] 20 mg PO BID #60 tab 03/16/22 INSULIN ASPART (NovoLOG) [NovoLOG 0 unit SQ ACHS each 03/16/22 (formulary)] Sertraline [Zoloft] 100 mg PO DAILY #30 tab 03/16/22 predniSONE 10 mg PO DIRECTED #40 tab 03/16/22 traZODone HCL [Desyrel] 50 mg PO HS #15 tab 03/16/22 Allergies Allergy/AdvReac Type Severity Reaction Status Date / Time Penicillins Allergy Anaphylaxis Verified 05/22/23 19:02 Review of Systems ROS Statement: Those systems with pertinent positive or pertinent negative responses have been documented in the HPI. ROS Other: All systems not noted in ROS Statement are negative. Constitutional: Denies: fever Eyes: Denies: eye pain ENT: Denies: ear pain Respiratory: Reports: as per HPI, dyspnea Cardiovascular: Denies: chest pain Endocrine: Reports: fatigue Gastrointestinal: Denies: abdominal pain Musculoskeletal: Denies: back pain Past Medical History Past Medical History: Asthma, Blood Disorder, COPD Additional Past Medical History / Comment(s): hiv History of Any Multi-Drug Resistant Organisms: None Reported Past Surgical History: No Surgical Hx Reported Past Psychological History: Depression Smoking Status: Current every day smoker Past Alcohol Use History: None Reported, Occasional Past Drug Use History: None Reported General Exam Limitations: no limitations General appearance: alert Head exam: Present: normocephalic Eye exam: Present: normal appearance ENT exam: Present: normal oropharynx Neck exam: Present: normal inspection Respiratory exam: Present: respiratory distress, wheezes, decreased breath sounds Cardiovascular Exam: Present: regular rate, normal rhythm GI/Abdominal exam: Present: soft. Absent: tenderness Extremities exam: Present: normal inspection. Absent: pedal edema, calf tenderness Neurological exam: Present: alert Psychiatric exam: Present: normal affect, normal mood Skin exam: Present: normal color Course Vital Signs 08/10/23 08/10/23 08/10/23 13:04 13:10 13:25 Temperature 98.3 F Pulse Rate 84 Respiratory 26 H 26 H Rate Blood Pressure 146/74 O2 Sat by Pulse 100 Oximetry Fraction of 28 Inspired Oxygen (FIO2) 08/10/23 08/10/23 13:41 13:50 Temperature Pulse Rate 80 82 Respiratory Rate Blood Pressure O2 Sat by Pulse Oximetry Fraction of Inspired Oxygen (FIO2) EKG Findings - EKG Results: EKG: interpreted by ERMD (Right axis.), sinus rhythm, normal QRS, normal ST/T Medical Decision Making - Medical Decision Making Was pt. sent in by a medical professional or institution (, PA, RESIDENTIAL SALES CONSULTANT, urgent care, hospital, or alf...) When possible be specific @ -No Did you speak to anyone other than the patient for history (EMS, parent, family, police, friend...)? What history was obtained from this source @ -EMS provides history of medications provided during transport Did you review nursing and triage notes (agree or disagree)? Why? @ -I reviewed and agree with nursing and triage notes Were old charts reviewed (outside hosp., previous admission, EMS record, old EKG, old radiological studies, urgent care reports/EKG's, alf records)? Report findings @ -Previous chest x-ray shows no acute process, similar to today's findings. Differential Diagnosis (chest pain, altered mental status, abdominal pain women, abdominal pain men, vaginal bleeding, weakness, fever, dyspnea, syncope, headache, dizziness, GI bleed, back pain, seizure, CVA, palpatations, mental health, musculoskeletal)? @ -Differential Dyspnea: Coronary syndrome, arrhythmia, tamponade, asthma, COPD, pulmonary embolism, pneumonia, pneumothorax, pulmonary effusion, anaphylaxis, diabetic ketoacidosis, flailed chest, pulmonary contusion, diaphragmatic rupture, anemia, neuromuscular, this is not meant to be an all-inclusive list. EKG interpreted by me (3pts min.). @ -As above X-rays interpreted by me (1pt min.). @ -Chest x-ray shows no acute process CT interpreted by me (1pt min.). @ -None done U/S interpreted by me (1pt. min.). @ -None done What testing was considered but not performed or refused? (CT, X-rays, U/S, labs)? Why? @ -None What meds were considered but not given or refused? Why? @ -None Did you discuss the management of the patient with other professionals (professionals i.e. , PA, RESIDENTIAL SALES CONSULTANT, lab, RT, psych nurse, social sciences instructor, crop ranch hand, teacher, environmental protection officer, case operator)? Give summary @ -[facility] physician, Dr. Mejia who will admit covering Dr. Harvey. Was smoking cessation discussed for >3mins.? @ -No Was critical care preformed (if so, how long)? @ -31 minutes critical care time Were there social determinants of health that impacted care today? How? (Homelessness, low income, unemployed, alcoholism, drug addiction, transportation, low edu. Level, literacy, decrease access to med. care, [facility], rehab)? @ -No Was there de-escalation of care discussed even if they declined (Discuss DNR or withdrawal of care, Hospice)? DNR status @ -No What co-morbidities impacted this encounter? (DM, HTN, Smoking, COPD, CAD, Cancer, CVA, ARF, Chemo, Hep., AIDS, mental health diagnosis, sleep apnea, morbid obesity)? @ -COPD history and former smoker Was patient admitted / discharged? Hospital course, mention meds given and route, prescriptions, significant lab abnormalities, going to OR and other pertinent info. @ -Patient presents with respiratory distress and COPD. Patient significantly improved with nebulizers and BiPAP. Patient will be admitted. Admission orders written. C pulmonary consult will be placed t Undiagnosed new problem with uncertain prognosis? @ -No Drug Therapy requiring intensive monitoring for toxicity (Heparin, Nitro, Insulin, Cardizem)? @ -No Were any procedures done? @ -No Diagnosis/symptom? @ -COPD, respiratory failure, hyponatremia Acute, or Chronic, or Acute on Chronic? @ -Acute, acute Uncomplicated (without systemic symptoms) or Complicated (systemic symptoms)? @ -Complicated with hyponatremia and need for BiPAP Side effects of treatment? @ -No Exacerbation, Progression, or Severe Exacerbation? @ -No Poses a threat to life or bodily function? How? (Chest pain, USA, PA, pneumonia, PE, COPD, DKA, ARF, appy, cholecystitis, CVA, Diverticulitis, Homicidal, Arreola icidal, threat to staff... and all critical care pts) @ -No - Lab Data Result diagrams: 08/10/23 13:19 08/10/23 13:19 Lab Results 08/10/23 08/10/23 08/10/23 Range/Units 13:19 13:19 13:19 WBC 4.7 (3.8-10.6) k/uL RBC 4.53 (3.80-5.40) m/uL Hgb 14.5 (11.4-16.0) gm/dL Hct 45.3 (34.0-46.0) % MCV 100.0 (80.0-100.0) fL MCH 31.9 (25.0-35.0) pg MCHC 32.0 (31.0-37.0) g/dL RDW 12.9 (11.5-15.5) % Plt Count 241 (150-450) k/uL MPV 6.9 Neutrophils % 56 % Lymphocytes % 29 % Monocytes % 9 % Eosinophils % 2 % Basophils % 1 % Neutrophils # 2.6 (1.3-7.7) k/uL Lymphocytes # 1.3 (1.0-4.8) k/uL Monocytes # 0.4 (0-1.0) k/uL Eosinophils # 0.1 (0-0.7) k/uL Basophils # 0.1 (0-0.2) k/uL Sodium 126 L (137-145) mmol/L Potassium 4.3 (3.5-5.1) mmol/L Chloride 93 L (98-107) mmol/L Carbon Dioxide 29 (22-30) mmol/L Anion Gap 4 mmol/L BUN 8 (7-17) mg/dL Creatinine 0.39 L (0.52-1.04) mg/dL Est GFR (CKD-EPI)AfAm >90 (>60 ml/min/1.73 sqM) Est GFR (CKD-EPI)NonAf >90 (>60 ml/min/1.73 sqM) Glucose 107 H (74-99) mg/dL Plasma Lactic Acid Jarad 0.8 (0.7-2.0) mmol/L Calcium 8.0 L (8.4-10.2) mg/dL Magnesium 1.9 (1.6-2.3) mg/dL Total Bilirubin 0.3 (0.2-1.3) mg/dL AST 40 H (14-36) U/L ALT 38 H (4-34) U/L Alkaline Phosphatase 85 (38-126) U/L Total Protein 6.4 (6.3-8.2) g/dL Albumin 4.0 (3.5-5.0) g/dL Influenza Type A (PCR) (Not Detectd) Influenza Type B (PCR) (Not Detectd) RSV (PCR) (Not Detectd) SARS-CoV-2 (PCR) (Not Detectd) 08/10/23 Range/Units 13:19 WBC (3.8-10.6) k/uL RBC (3.80-5.40) m/uL Hgb (11.4-16.0) gm/dL Hct (34.0-46.0) % MCV (80.0-100.0) fL MCH (25.0-35.0) pg MCHC (31.0-37.0) g/dL RDW (11.5-15.5) % Plt Count (150-450) k/uL MPV Neutrophils % % Lymphocytes % % Monocytes % % Eosinophils % % Basophils % % Neutrophils # (1.3-7.7) k/uL Lymphocytes # (1.0-4.8) k/uL Monocytes # (0-1.0) k/uL Eosinophils # (0-0.7) k/uL Basophils # (0-0.2) k/uL Sodium (137-145) mmol/L Potassium (3.5-5.1) mmol/L Chloride (98-107) mmol/L Carbon Dioxide (22-30) mmol/L Anion Gap mmol/L BUN (7-17) mg/dL Creatinine (0.52-1.04) mg/dL Est GFR (CKD-EPI)AfAm (>60 ml/min/1.73 sqM) Est GFR (CKD-EPI)NonAf (>60 ml/min/1.73 sqM) Glucose (74-99) mg/dL Plasma Lactic Acid Jarad (0.7-2.0) mmol/L Calcium (8.4-10.2) mg/dL Magnesium (1.6-2.3) mg/dL Total Bilirubin (0.2-1.3) mg/dL AST (14-36) U/L ALT (4-34) U/L Alkaline Phosphatase (38-126) U/L Total Protein (6.3-8.2) g/dL Albumin (3.5-5.0) g/dL Influenza Type A (PCR) Not Detected (Not Detectd) Influenza Type B (PCR) Not Detected (Not Detectd) RSV (PCR) Not Detected (Not Detectd) SARS-CoV-2 (PCR) Not Detected (Not Detectd) Critical Care Time Critical Care Time: Yes Disposition Clinical Impression: COPD (chronic obstructive pulmonary disease), Acute respiratory failure, Hyponatremia Disposition: ADMITTED IP TO THIS [facility] Condition: Serious Is patient prescribed a controlled substance at d/c from ED?: No Referrals: Marlene Elizondo NPC [REFERRING] - 1-2 days Time of Disposition: 14:31
[2023-08-10 13:32] LABS: Basophils # (A) 0.1 k/uL (0-0.2); Basophils % (A) 1 %; Eosinophils # (A) 0.1 k/uL (0-0.7); Eosinophils % (A) 2 %; HCT 45.3 % (34.0-46.0); HGB 14.5 gm/dL (11.4-16.0); Lymphocytes # (A) 1.3 k/uL (1.0-4.8); Lymphocytes % (A) 29 %; MCH 31.9 pg (25.0-35.0); Mean Platelet Volume 6.9; Monocytes # (A) 0.4 k/uL (0-1.0); Monocytes % (A) 9 %; Neutrophils # (A) 2.6 k/uL (1.3-7.7); Neutrophils % (A) 56 %; Platelet Count 241 k/uL (150-450); RBC 4.53 m/uL (3.80-5.40); RDW 12.9 % (11.5-15.5); WBC 4.7 k/uL (3.8-10.6)
[2023-08-10] MEDS: methylPREDNISolone SOD SUCCI 125 MG/2 ML VIAL IV STA (13:38)
[2023-08-10] MEDS: SODIUM CHLORIDE 0.9% 1,000 ML IV STA (13:38)
[2023-08-10] MEDS: IPRATROPIUM-ALBUTEROL 3 ML NEB INHALATION STA (13:38)
[2023-08-10 13:49] LABS: ALT 38 U/L (4-34); AST 40 U/L (14-36); African American GFR (CKD) >90 (>60 ml/min/1.73 sqM); Alkaline Phosphatase 85 U/L (38-126); Anion Gap 4 mmol/L; Blood Urea Nitrogen 8 mg/dL (7-17); Carbon Dioxide 29 mmol/L (22-30); Chloride 93 mmol/L (98-107); Glucose 107 mg/dL (74-99); Magnesium 1.9 mg/dL (1.6-2.3); Non-African American GFR(CKD) >90 (>60 ml/min/1.73 sqM); Potassium 4.3 mmol/L (3.5-5.1); Sodium 126 mmol/L (137-145); Total Bilirubin 0.3 mg/dL (0.2-1.3); Total Protein 6.4 g/dL (6.3-8.2)
--- NOTE | 2023-08-10 13:59 | XR ---
EXAMINATION TYPE: XR chest 1V portable DATE OF EXAM: 08/10/2023 HISTORY: Shortness of breath. COMPARISON: 03/14/2022 TECHNIQUE: Single view of the chest is submitted. FINDINGS: Demonstrated are scattered senescent parenchymal change. Inflation compatible with COPD. There is no evidence for focal infiltrate. The heart is stable. Hilar and mediastinal structures are within normal limits. Degenerative changes are seen of the dorsal spine. IMPRESSION: 1. Chronic changes without evidence for acute pulmonary disease.
[2023-08-10] MEDS: AZITHROMYCIN 500 MG in SODIUM CHLORIDE 0.9% 250 ML IVPB SCH (16:05)
[2023-08-10] MEDS: IPRATROPIUM-ALBUTEROL 3 ML NEB INHALATION SCH (17:05)
[2023-08-10] MEDS: methylPREDNISolone SOD SUCCI 125 MG/2 ML VIAL IV SCH (17:49)
--- NOTE | 2023-08-10 21:37 | P.CNPUL ---
History of Present Illness Consult date: 08/10/23 Reason for consult: dyspnea, COPD History of present illness: This is a 52-year-old female patient with known history of COPD. The patient is maintained on Trelegy Ellipta on outpatient basis and she also has a DuoNeb nebulized treatment to be used on an as-needed basis. She is known to have HIV and currently she is on Biktarvy followed up by Dr. Salguero on outpatient basis regarding her HIV. She is not aware of her recent CD4 counts and viral loads. 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 She received several rounds of antibiotics and steroids for our office for PHARMACEUTICAL BOTANIST exacerbation she did not encounter any significant improvement. She ultimately came into the hospital for increased shortness of breath. She was briefly placed on BiPAP and the patient is currently on oxygen at 6 L/min nasal cannula with a pulse ox of 98%. She is quite short of breath even at rest. Not using accessory muscles of breathing. Sodium levels at 126, potassium is 4.3, bicarb is 29, BUN is at 8 with a creatinine of 0.39. WBC count of 4.7 with a hemoglobin of 14.5 and a platelet count of 241. The viral screen came back negative. The chest x-ray shows no acute abnormalities. There is hyperinflation consistent with COPD. Scattered senescent parenchymal changes are seen bilaterally. Findings are essentially consistent with COPD. She was started on bronchodilators with D uoNeb updrafts. She is also on IV Solu-Medrol. She was started on Zithromax as an empiric antibiotic coverage and she is also normal saline at rate of 75 cc an hour. No frequent hospital admissions for COPD exacerbation. Her last admission to the hospital was back in 2021 essentially same presentation. She has been trying to quit smoking and she has not smoked for the past several months. She has been smoking since the age of 11 and she carries more than [id number] smoking history. Review of Systems Constitutional: Reports as per HPI Eyes: denies as per HPI, denies blurred vision, denies bulging eye, denies decreased vision, denies diplopia, denies discharge, denies dry eye, denies irritation, denies itching, denies pain, denies photophobia, denies loss of peripheral vision, denies loss of vision, denies tunnel vision/blind spots Ears: deny: decreased hearing, ear discharge, earache, tinnitus Ears, nose, mouth and throat: Reports as per HPI Breasts: absent: as per HPI, change in shape, gynecomastia, masses, nipple discharge, pain, skin changes, swelling Cardiovascular: Reports decreased exercise tolerance, Reports dyspnea on exertion Respiratory: Reports cough, Reports dyspnea, Reports wheezing Gastrointestinal: Reports as per HPI Genitourinary: Reports as per HPI Menstruation: Reports as per HPI Musculoskeletal: Reports as per HPI Musculoskeletal: absent: ankle pain, ankle stiffness, ankle swelling, as per HPI, elbow pain, elbow stiffness, elbow swelling, foot pain, foot stiffness, foot swelling, hand pain, hand stiffness, hand swelling, hip pain, hip stiffness, hip swelling, knee pain, knee stiffness, knee swelling, shoulder pain, shoulder stiffness, shoulder swelling, wrist pain, wrist stiffness, wrist swelling Neurological: Reports as per HPI Psychiatric: Reports as per HPI Endocrine: Reports as per HPI Hematologic/Lymphatic: Reports as per HPI Allergic/Immunologic: Reports as per HPI Past Medical History Past Medical History: Asthma, Blood Disorder, COPD Additional Past Medical History / Comment(s): hiv History of Any Multi-Drug Resistant Organisms: None Reported Past Surgical History: No Surgical Hx Reported Past Psychological History: Depression Smoking Status: Current every day smoker Past Alcohol Use History: None Reported, Occasional Past Drug Use History: None Reported Medications and Allergies Home Medications Medication Instructions Recorded Confirmed Type Albuterol Sulfate [Albuterol 2 puff PO RT-Q4H PRN 03/14/22 08/10/23 History Sulfate Hfa] Bictegrav/Emtricit/Tenofov Ala 1 tab PO DAILY 08/10/23 08/10/23 History [Biktarvy 50-200-25 mg Tablet] Fluticasone/Umeclidin/Vilanter 1 puff INHALATION RT-DAILY 08/10/23 08/10/23 History [Trelegy Ellipta 200-62.5-25] Ipratropium-Albuterol Nebulize 3 ml INHALATION RT-Q6H PRN 08/10/23 08/10/23 History [Duoneb 0.5 mg-3 mg/3 ml Soln] Sertraline [Zoloft] 50 mg PO DAILY 08/10/23 08/10/23 History traZODone HCL [Desyrel] 100 mg PO HS 08/10/23 08/10/23 History Allergies Allergy/AdvReac Type Severity Reaction Status Date / Time Penicillins Allergy Anaphylaxis Verified 08/10/23 14:58 Physical Exam Vitals: Vital Signs Temp Pulse Resp BP Pulse Ox FiO2 08/10/23 20:03 88 08/10/23 19:57 84 08/10/23 17:55 86 18 142/76 98 08/10/23 17:14 82 08/10/23 17:06 78 08/10/23 16:05 89 22 140/78 99 08/10/23 15:31 96 08/10/23 14:47 80 26 H 142/74 100 08/10/23 13:50 82 08/10/23 13:41 80 08/10/23 13:25 28 08/10/23 13:10 26 H 100 08/10/23 13:04 98.3 F 84 26 H 146/74 100 Intake and Output 08/10/23 08/10/23 08/10/23 06:59 14:59 22:59 Other: Weight 63.503 kg Patient is mild degree of respiratory distress even at rest. She is currently on 6 L of O2 nasal cannula and she has been taken off the BiPAP. No signs of any CO2 narcosis. Head exam was generally normal. There was no scleral icterus or corneal arcus. Mucous membranes were moist. Neck was supple and without jugular venous distension, thyromegaly, or carotid bruits. Carotids were easily palpable bilaterally. There was no adenopathy. Lung sounds are diminished and the patient has a barrel chest. Marked diminished breath sound bilaterally patient lung bases. Scattered expiratory wheezes also appreciated. Cardiac exam revealed the PMI to be normally situated and sized. The rhythm was regular and no extrasystoles were noted during several minutes of auscultation. The first and second heart sounds were normal and physiologic splitting of the second heart sound was noted. There were no murmurs, rubs, clicks, or gallops. Abdominal exam revealed normal bowel sounds. The abdomen was soft, non-tender, and without masses, organomegaly, or appreciable enlargement of the abdominal aorta. Examination of the extremities revealed easily palpable radial, femoral and pedal pulses. There was no cyanosis, clubbing or edema. Examination of the skin revealed no evidence of significant rashes, suspicious appearing nevi or other concerning lesions. Neurologically, the patient is awake and alert and the patient does not have any focal neurological deficit. Cranial nerves are essentially intact. Results - Laboratory Findings CBC and BMP: 08/10/23 13:19 08/10/23 13:19 Abnormal lab findings: Abnormal Labs 08/10/23 13:19 Sodium 126 L Chloride 93 L Creatinine 0.39 L Glucose 107 H Calcium 8.0 L AST 40 H ALT 38 H - Diagnostic Findings Chest x-ray: image reviewed Assessment and Plan Plan: Acute exacerbation of chronic COPD, failed outpatient treatment despite being on antibiotics and steroids. Presented with worsening shortness of breath. Currently off the BiPAP and the patient is currently on 6 L of O2 nasal cannula, chest x-ray free of any acute pulmonary infiltrates Acute hypoxic respiratory failure secondary to above Advanced COPD at baseline and the patient has been maintained on Trelegy Ellipta on outpatient basis History of smoking History of HIV currently on Biktarvy. Viral count and CD4 counts are not known. No previous history of a persistent infections. The patient has not been receiving any form of antibiotic treatments such as Bactrim. I am assuming that her CD4 counts are adequate. Her infectious disease doctor is Dr. Salguero. Plan Agree on the current management of bronchodilators and steroids Continue DuoNeb updrafts Continue IV Solu-Medrol 60 mg every 6 hours Empiric antibiotic coverage with Zithromax Check CD4 count and viral load May be able to resume Trelegy Ellipta from home We will continue to follow.
[2023-08-10] MEDS: traZODone HCL 100 MG TAB PO SCH (21:44)
[2023-08-11] MEDS: SERTRALINE 50 MG TAB PO SCH (08:35)
[2023-08-11] MEDS: SYMBICORT 80-4.5 MCG INHALER INHALATION SCH (08:38)
[2023-08-11] MEDS: methylPREDNISolone SOD SUCCI 125 MG/2 ML VIAL IV SCH (12:10)
--- NOTE | 2023-08-11 14:50 | P.HPIM ---
History of Present Illness H&P Date: 08/11/23 Chief Complaint: As of breath 52-year-old female presenting to the emergency department with difficulty breathing. Symptoms have been present for the past 3 days. Occasional cough, nonproductive. No fever or recent upper respiratory infection. No calf pain or leg swelling. Patient does have history of similar symptoms previously associated with COPD. Patient is a former smoker, patient has more than 40 pack years history of smoking. Sodium levels at 126, potassium is 4.3, bicarb is 29, BUN is at 8 with a creatinine of 0.39. WBC count of 4.7 with a hemoglobin of 14.5 and a platelet count of 241. The viral screen came back negative. The chest x-ray shows no ac kole abnormalities. There is hyperinflation consistent with COPD. Scattered senescent parenchymal changes are seen bilaterally. Findings are essentially consistent with COPD. She was briefly placed on BiPAP and the patient is currently on oxygen at 6 L/min nasal cannula with a pulse ox of 98%. She is quite short of breath even at rest. Not using accessory muscles of breathing. She was started on bronchodilators with DuoNeb updrafts. She is also on IV Solu-Medrol. She was started on Zithromax as an empiric antibiotic coverage and she is also normal saline at rate of 75 cc an hour. Review of Systems REVIEW OF SYSTEMS: CONSTITUTIONAL: No fever, no malaise, no fatigue. HEENT: No recent visual problems or hearing problems. Denied any sore throat. CARDIOVASCULAR: No chest pain, orthopnea, PND, no palpitations, no syncope. PULMONARY: No shortness of breath, no cough, no hemoptysis. GASTROINTESTINAL: No diarrhea, no nausea, no vomiting, no abdominal pain. NEUROLOGICAL: No headaches, no weakness, no numbness. HEMATOLOGICAL: Denies any bleeding or petechiae. GENITOURINARY: Denies any burning micturition, frequency, or urgency. MUSCULOSKELETAL/RHEUMATOLOGICAL: Denies any joint pain, swelling, or any muscle pain. ENDOCRINE: Denies any polyuria or polydipsia. The rest of the 14-point review of systems is negative. Past Medical History Past Medical History: Asthma, Blood Disorder, COPD Additional Past Medical History / Comment(s): hiv History of Any Multi-Drug Resistant Organisms: None Reported Past Surgical History: No Surgical Hx Reported Past Psychological History: Depression Smoking Status: Current every day smoker Past Alcohol Use History: None Reported, Occasional Past Drug Use History: None Reported Medications and Allergies Home Medications Medication Instructions Recorded Confirmed Type Albuterol Sulfate [Albuterol 2 puff PO RT-Q4H PRN 03/14/22 08/10/23 History Sulfate Hfa] Bictegrav/Emtricit/Tenofov Ala 1 tab PO DAILY 08/10/23 08/10/23 History [Biktarvy 50-200-25 mg Tablet] Fluticasone/Umeclidin/Vilanter 1 puff INHALATION RT-DAILY 08/10/23 08/10/23 History [Trelegy Ellipta 200-62.5-25] Ipratropium-Albuterol Nebulize 3 ml INHALATION RT-Q6H PRN 08/10/23 08/10/23 History [Duoneb 0.5 mg-3 mg/3 ml Soln] Sertraline [Zoloft] 50 mg PO DAILY 08/10/23 08/10/23 History traZODone HCL [Desyrel] 100 mg PO HS 08/10/23 08/10/23 History Allergies Allergy/AdvReac Type Severity Reaction Status Date / Time Penicillins Allergy Anaphylaxis Verified 08/10/23 14:58 Physical Exam Vitals: Vital Signs Temp Pulse Resp BP Pulse Ox FiO2 08/11/23 10:59 98.1 F 89 18 119/84 97 08/11/23 08:51 80 18 08/11/23 08:40 79 20 08/11/23 08:33 78 20 116/87 97 08/11/23 06:29 84 18 155/90 98 08/11/23 04:10 80 16 112/70 98 08/11/23 01:23 72 16 125/72 98 08/10/23 20:03 88 08/10/23 19:57 84 08/10/23 17:55 86 18 142/76 98 08/10/23 17:14 82 08/10/23 17:06 78 08/10/23 16:05 89 22 140/78 99 08/10/23 15:31 96 08/10/23 14:47 80 26 H 142/74 100 08/10/23 13:50 82 08/10/23 13:41 80 08/10/23 13:25 28 08/10/23 13:10 26 H 100 08/10/23 13:04 98.3 F 84 26 H 146/74 100 Patient is mild degree of respiratory distress even at rest. She is currently on 6 L of O2 nasal cannula and she has been taken off the BiPAP. No signs of any CO2 narcosis. Head exam was generally normal. There was no scleral icterus or corneal arcus. Mucous membranes were moist. Neck was supple and without jugular venous distension, thyromegaly, or carotid bruits. Carotids were easily palpable bilaterally. There was no adenopathy. Lung sounds are diminished and the patient has a barrel chest. Marked diminished breath sound bilaterally patient lung bases. Scattered expiratory wheezes also appreciated. Cardiac exam revealed the PMI to be normally situated and sized. The rhythm was regular and no extrasystoles were noted during several minutes of auscultation. The first and second heart sounds were normal and physiologic splitting of the second heart sound was noted. There were no murmurs, rubs, clicks, or gallops. Abdominal exam revealed normal bowel sounds. The abdomen was soft, non-tender, and without masses, organomegaly, or appreciable enlargement of the abdominal aorta. Examination of the extremities revealed easily palpable radial, femoral and pedal pulses. There was no cyanosis, clubbing or edema. Examination of the skin revealed no evidence of significant rashes, suspicious appearing nevi or other concerning lesions. Neurologically, the patient is awake and alert and the patient does not have any focal neurological deficit. Cranial nerves are essentially intact. Results CBC & Chem 7: 08/10/23 13:19 08/10/23 13:19 Labs: Abnormal Lab Results - Last 24 Hours (Table) 08/10/23 Range/Units 13:19 Sodium 126 L (137-145) mmol/L Chloride 93 L (98-107) mmol/L Creatinine 0.39 L (0.52-1.04) mg/dL Glucose 107 H (74-99) mg/dL Calcium 8.0 L (8.4-10.2) mg/dL AST 40 H (14-36) U/L ALT 38 H (4-34) U/L Assessment and Plan Assessment: 1. Acute hypoxic respiratory failure; related to COPD exacerbation --We will continue with O2 at 6 L per nasal cannula keeping O2 saturation greater than 90% -Continue with Solu-Medrol nebulizer treatments -- Empiric antibiotic coverage with IV Rocephin 2. History of smoking cessation; counseling done on need for quitting smoking 3. HIV/AIDS; patient is currently on Biktarvy; viral load and CD4 counts have been addressed VT prophylaxis; SCDs CODE STATUS; full code
--- NOTE | 2023-08-11 15:32 | P.PN ---
Subjective Progress Note Date: 08/11/23 This is a 52-year-old female patient with known history of COPD. The patient is maintained on Trelegy Ellipta on outpatient basis and she also has a DuoNeb nebulized treatment to be used on an as-needed basis. She is known to have HIV and currently she is on Biktarvy followed up by Dr. Salguero on outpatient basis regarding her HIV. She is not aware of her recent CD4 counts and viral loads. She has been having issues with increased respiratory distress and [employer] exacerbation for the past 2 to 3 weeks. She received several rounds of antibiotics and steroids for our office for [employer] exacerbation she did not encounter any significant improvement. She ultimately came into the hospital for increased shortness of breath. She was briefly placed on BiPAP and the patient is currently on oxygen at 6 L/min nasal cannula with a pulse ox of 98%. She is quite short of breath even at rest. Not using accessory muscles of breathing. Sodium levels at 126, potassium is 4.3, bicarb is 29, BUN is at 8 with a creatinine of 0.39. WBC count of 4.7 with a hemoglobin of 14.5 and a platelet count of 241. The viral screen came back negative. The chest x-ray shows no acute abnormalities. There is hyperinflation consistent with COPD. Scattered senescent parenchymal changes are seen bilaterally. Findings are essentially consistent with COPD. She was started on bronchodilators with DuoNeb updrafts. She is also on IV Solu-Medrol. She was started on Zithromax as an empiric antibiotic coverage and she is also normal saline at rate of 75 cc an hour. No frequent hospital admissions for COPD exacerbation. Her last admission to the hospital was back in 2021 essentially same presentation. She has been trying to quit smoking and she has not smoked for the past several months. She has been smoking since the age of 11 and she carries more than [id number] smoking history. On 08/11/2023, the patient is being seen for a follow-up. The patient was hospitalized for an acute Exacerbation the patient is feeling better on today's evaluation this bronchospastic and wheezy. She is known to have HIV. Viral constant CD4 counts are still pending for now. She is currently on Zithromax, IV Solu-Medrol, DuoNeb nebulized treatments [id number]. She has failed outpatient treatment for that reason the patient was hospitalized. No fever. No altered mentation. No other new complaints otherwise for now. Oxygenation is stable on 3 L O2 nasal cannula with a pulse ox of 98%. Objective - Vital Signs Vital signs: Vital Signs Temp 98.5 F 08/11/23 11:25 Pulse 90 08/11/23 11:25 Resp 19 08/11/23 11:25 BP 131/75 08/11/23 11:25 Pulse Ox 98 08/11/23 11:25 FiO2 28 08/10/23 13:25 Intake & Output 08/10/23 08/11/23 08/11/23 18:59 06:59 18:59 Weight 63.503 kg - Exam Patient is mild degree of respiratory distress even at rest. She is currently on 6 L of O2 nasal cannula and she has been taken off the BiPAP. No signs of any CO2 narcosis. Head exam was generally normal. There was no scleral icterus or corneal arcus. Mucous membranes were moist. Neck was supple and without jugular venous distension, thyromegaly, or carotid bruits. Carotids were easily palpable bilaterally. There was no adenopathy. Lung sounds are diminished and the patient has a barrel chest. Marked diminished breath sound bilaterally patient lung bases. Scattered expiratory wheezes also appreciated. Cardiac exam revealed the PMI to be normally situated and sized. The rhythm was regular and no extrasystoles were noted during several minutes of auscultation. The first and second heart sounds were normal and physiologic splitting of the second heart sound was noted. There were no murmurs, rubs, clicks, or gallops. Abdominal exam revealed normal bowel sounds. The abdomen was soft, non-tender, and without masses, organomegaly, or appreciable enlargement of the abdominal aorta. Examination of the extremities revealed easily palpable radial, femoral and pedal pulses. There was no cyanosis, clubbing or edema. Examination of the skin revealed no evidence of significant rashes, suspicious appearing nevi or other concerning lesions. Neurologically, the patient is awake and alert and the patient does not have any focal neurological deficit. Cranial nerves are essentially intact. - Labs CBC & Chem 7: 08/10/23 13:19 08/10/23 13:19 Labs: Abnormal Lab Results - Last 24 Hours (Table) 08/10/23 Range/Units 13:19 Sodium 126 L (137-145) mmol/L Chloride 93 L (98-107) mmol/L Creatinine 0.39 L (0.52-1.04) mg/dL Glucose 107 H (74-99) mg/dL Calcium 8.0 L (8.4-10.2) mg/dL AST 40 H (14-36) U/L ALT 38 H (4-34) U/L Assessment and Plan Plan: Acute exacerbation of chronic COPD, failed outpatient treatment despite being on antibiotics and steroids. Presented with worsening shortness of breath. Currently off the BiPAP and the patient is currently on 3 L of O2 nasal cannula, chest x-ray free of any acute pulmonary infiltrates Acute hypoxic respiratory failure secondary to above, improved and the patient is currently on 3 L of oxygen nasal cannula Advanced COPD at baseline and the patient has been maintained on Trelegy Ellipta on outpatient basis History of smoking History of HIV currently on Biktarvy. Viral count and CD4 counts are not known. No previous history of a persistent infections. The patient has not been receiving any form of antibiotic treatments such as Bactrim. I am assuming that her CD4 counts are adequate. Her infectious disease doctor is Dr. Salguero. Plan Clinically improved and better compared to yesterday Agree on the current management of bronchodilators and steroids [facility] Continue IV Solu-Medrol 60 mg every 6 hours Empiric antibiotic coverage with Zithromax Check CD4 count and viral load May be able to resume Trelegy Ellipta from home We will continue to follow.
[2023-08-11] MEDS: guaiFENesin-DM 100-10MG/5ML 10 ML CUP PO PRN (21:32)
[2023-08-12] MEDS: IPRATROPIUM-ALBUTEROL 3 ML NEB INHALATION PRN (02:02)
[2023-08-12 12:22] LABS: T Helper Cell (CD4) 81 cell/ul (443-1471); T Helper Cell (CD4) % 28 % (35-66); T Suppressor Cell (CD8) 128 cell/ul (190-832); T Suppressor Cell (CD8) % 44 % (9-37); T4/T8 Ratio (CD4:CD8) 0.6 (1.0-3.7)
[2023-08-12 12:58] LABS: African American GFR (CKD) >90 (>60 ml/min/1.73 sqM); Anion Gap 3 mmol/L; Blood Urea Nitrogen 19 mg/dL (7-17); Calcium 8.8 mg/dL (8.4-10.2); Carbon Dioxide 37 mmol/L (22-30); Chloride 98 mmol/L (98-107); Glucose 119 mg/dL (74-99); Non-African American GFR(CKD) >90 (>60 ml/min/1.73 sqM); Potassium 4.5 mmol/L (3.5-5.1); Sodium 138 mmol/L (137-145)
[2023-08-12] MEDS: ALPRAZolam 0.5 MG TAB PO PRN (13:40)
--- NOTE | 2023-08-12 15:50 | P.PN ---
Subjective Progress Note Date: 08/12/23 This is a 52-year-old female patient with known history of COPD. The patient is maintained on Trelegy Ellipta on outpatient basis and she also has a DuoNeb nebulized treatment to be used on an as-needed basis. She is known to have HIV and currently she is on Biktarvy followed up by Dr. Salguero on outpatient basis regarding her HIV. She is not aware of her recent CD4 counts and viral loads. She has been having issues with increased respiratory distress and [employer] exacerbation for the past 2 to 3 weeks. She received several rounds of antibiotics and steroids for our office for [employer] exacerbation she did not encounter any significant improvement. She ultimately came into the hospital for increased shortness of breath. She was briefly placed on BiPAP and the patient is currently on oxygen at 6 L/min nasal cannula with a pulse ox of 98%. She is quite short of breath even at rest. Not using accessory muscles of breathing. Sodium levels at 126, potassium is 4.3, bicarb is 29, BUN is at 8 with a creatinine of 0.39. WBC count of 4.7 with a hemoglobin of 14.5 and a platelet count of 241. The viral screen came back negative. The chest x-ray shows no acute abnormalities. There is hyperinflation consistent with COPD. Scattered senescent parenchymal changes are seen bilaterally. Findings are essentially consistent with COPD. She was started on bronchodilators with DuoNeb updrafts. She is also on IV Solu-Medrol. She was started on Zithromax as an empiric antibiotic coverage and she is also normal saline at rate of 75 cc an hour. No frequent hospital admissions for COPD exacerbation. Her last admission to the hospital was back in 2021 essentially same presentation. She has been trying to quit smoking and she has not smoked for the past several months. She has been smoking since the age of 11 and she carries more than [id number] smoking history. On 08/11/2023, the patient is being seen for a follow-up. The patient was hospitalized for an acute Exacerbation the patient is feeling better on today's evaluation this bronchospastic and wheezy. She is known to have HIV. Viral constant CD4 counts are still pending for now. She is currently on Zithromax, IV Solu-Medrol, DuoNeb nebulized treatments [id number]. She has failed outpatient treatment for that reason the patient was hospitalized. No fever. No altered mentation. No other new complaints otherwise for now. Oxygenation is stable on 3 L O2 nasal cannula with a pulse ox of 98%. On today's evaluation of 08/12/2023, the patient reports limited improvement since yesterday. Still bronchospastic and wheezy and continues to be short of breath. Maintained on Symbicort and DuoNeb updrafts and maintained on IV Solu- Medrol 60 mg every 6 hours. She remains on empiric antibiotic coverage with IV Zithromax. No nausea vomiting or diarrhea. BUN is at 19 with a creatinine of 0.5 and a sodium levels at 138. No other significant events otherwise for now. The patient has a impaired CD4 count of 81. As such, the patient is high immunosuppressed and she may be potentially at risk of opportunistic infection. Patient continue antiretroviral treatment. Obtain a follow-up chest x-ray tomorrow. Objective - Vital Signs Vital signs: Vital Signs Temp 98.1 F 08/12/23 07:50 Pulse 98 08/12/23 09:35 Resp 17 08/12/23 07:50 BP 138/82 08/12/23 07:50 Pulse Ox 98 08/12/23 09:25 FiO2 28 08/10/23 13:25 Intake & Output 08/11/23 08/12/23 08/12/23 18:59 06:59 18:59 Other: Voiding Method Bedside Commode Diaper # Voids 5 - Exam Patient is mild degree of respiratory distress even at rest. She is currently on 6 L of O2 nasal cannula and she has been taken off the BiPAP. No signs of any CO2 narcosis. Head exam was generally normal. There was no scleral icterus or corneal arcus. Mucous membranes were moist. Neck was supple and without jugular venous distension, thyromegaly, or carotid bruits. Carotids were easily palpable bilaterally. There was no adenopathy. Lung sounds are diminished and the patient has a barrel chest. Marked diminished breath sound bilaterally patient lung bases. Scattered expiratory wheezes also appreciated. Cardiac exam revealed the PMI to be normally situated and sized. The rhythm was regular and no extrasystoles were noted during several minutes of auscultation. The first and second heart sounds were normal and physiologic splitting of the second heart sound was noted. There were no murmurs, rubs, clicks, or gallops. Abdominal exam revealed normal bowel sounds. The abdomen was soft, non-tender, and without masses, organomegaly, or appreciable enlargement of the abdominal aorta. Examination of the extremities revealed easily palpable radial, femoral and pedal pulses. There was no cyanosis, clubbing or edema. Examination of the skin revealed no evidence of significant rashes, suspicious appearing nevi or other concerning lesions. Neurologically, the patient is awake and alert and the patient does not have any focal neurological deficit. Cranial nerves are essentially intact. - Labs CBC & Chem 7: 08/10/23 13:19 08/12/23 12:13 Labs: Microbiology - Last 24 Hours (Table) 08/10/23 13:19 Blood Culture - Preliminary Blood Assessment and Plan Plan: Acute exacerbation of chronic COPD, failed outpatient treatment despite being on antibiotics and steroids. Presented with worsening shortness of breath. Currently off the BiPAP and the patient is currently on 3 L of O2 nasal cannula, chest x-ray free of any acute pulmonary infiltrates. The patient continues to be symptomatic although there is some limited improvement since yesterday. Acute hypoxic respiratory failure secondary to above, improved and the patient is currently on 3 L of oxygen nasal cannula Advanced COPD at baseline and the patient has been maintained on Trelegy Ellipta on outpatient basis History of smoking History of HIV currently on Biktarvy. Viral count and CD4 counts are not known. No previous history of a persistent infections. The patient has not been receiving any form of antibiotic treatments such as Bactrim. Her infectious disease doctor is Dr. Salguero. The CD4 count is at 81 Plan Clinically improved and better compared to yesterday, improvement is slow but steady. Agree on the current management of bronchodilators and steroids Continue [facility] Continue IV Solu-Medrol 60 mg every 6 hours Empiric antibiotic coverage with Zithromax The patient is immunosuppressed with a CD4 count of 81. Awaiting the viral load Repeat chest x-ray in the morning May be able to resume Trelegy Ellipta from home We will continue to follow.
--- NOTE | 2023-08-12 17:00 | P.PN ---
Subjective Progress Note Date: 08/12/23 52-year-old female presenting to the emergency department with difficulty breathing. Symptoms have been present for the past 3 days. Occasional cough, nonproductive. No fever or recent upper respiratory infection. No calf pain or leg swelling. Patient does have history of similar symptoms previously associated with COPD. Patient is a former smoker, patient has more than 40 pack years history of smoking. Sodium levels at 126, potassium is 4.3, bicarb is 29, BUN is at 8 with a creatinine of 0.39. WBC count of 4.7 with a hemoglobin of 14.5 and a platelet count of 241. The viral screen came back negative. The chest x-ray shows no acute abnormalities. There is hyperinflation consistent with COPD. Scattered senescent parenchymal changes are seen bilaterally. Findings are essentially consistent with COPD. She was briefly placed on BiPAP and the patient is currently on oxygen at 6 L/min nasal cannula with a pulse ox of 98%. She is quite short of breath even at rest. Not using accessory muscles of breathing. She was started on bronchodilators with Karen cramer. She is also on IV Solu-Medrol. She was started on Zithromax as an empiric antibiotic coverage and she is also normal saline at rate of 75 cc an hour. Objective - Vital Signs Vital signs: Vital Signs Temp 98.1 F 08/12/23 07:50 Pulse 98 08/12/23 09:35 Resp 17 08/12/23 07:50 BP 138/82 08/12/23 07:50 Pulse Ox 98 08/12/23 09:25 FiO2 28 08/10/23 13:25 Intake & Output 08/11/23 08/12/23 08/12/23 18:59 06:59 18:59 Other: Voiding Method Bedside Commode Diaper # Voids 5 - Exam Patient is mild degree of respiratory distress even at rest. She is currently on 6 L of O2 nasal cannula and she has been taken off the BiPAP. No signs of any CO2 narcosis. Head exam was generally normal. There was no scleral icterus or corneal arcus. Mucous membranes were moist. Neck was supple and without jugular venous distension, thyromegaly, or carotid bruits. Carotids were easily palpable bilaterally. There was no adenopathy. Lung sounds are diminished and the patient has a barrel chest. Marked diminished breath sound bilaterally patient lung bases. Scattered expiratory wheezes also appreciated. Cardiac exam revealed the PMI to be normally situated and sized. The rhythm was regular and no extrasystoles were noted during several minutes of auscultation. The first and second heart sounds were normal and physiologic splitting of the second heart sound was noted. There were no murmurs, rubs, clicks, or gallops. Abdominal exam revealed normal bowel sounds. The abdomen was soft, non-tender, and without masses, organomegaly, or appreciable enlargement of the abdominal aorta. Examination of the extremities revealed easily palpable radial, femoral and pedal pulses. There was no cyanosis, clubbing or edema. Examination of the skin revealed no evidence of significant rashes, suspicious appearing nevi or other concerning lesions. Neurologically, the patient is awake and alert and the patient does not have any focal neurological deficit. Cranial nerves are essentially intact. - Labs CBC & Chem 7: 08/10/23 13:19 08/12/23 12:13 Labs: Microbiology - Last 24 Hours (Table) 08/10/23 13:19 Blood Culture - Preliminary Blood Assessment and Plan Assessment: 1. Acute hypoxic respiratory failure; related to COPD exacerbation --We will continue with O2 at 6 L per nasal cannula keeping O2 saturation greater than 90% -Continue with Solu-Medrol nebulizer treatments -- Empiric antibiotic coverage with IV Rocephin 2. History of smoking cessation; counseling done on need for quitting smoking 3. HIV/AIDS; patient is currently on Biktarvy; viral load and CD4 counts have been addressed VT prophylaxis; SCDs CODE STATUS; full code
[2023-08-12] MEDS: ALPRAZolam 0.5 MG TAB PO STA (18:37)
[2023-08-12] MEDS: ONDANSETRON 4 MG/2 ML VIAL IVP PRN (20:37)
[2023-08-13 02:12] LABS: ABG Base Excess 15.1 mmol/L; ABG PH 7.24 (7.35-7.45); ABG PO2 69 mmHg (83-108); ABG TCO2 46 mmol/L (19-24); Allen Test Performed? Yes
[2023-08-13 02:16] LABS: ABG HCO3 43 mmol/L (21-25); ABG PCO2 98 mmHg (35-45)
[2023-08-13] MEDS: LORazepam 2 MG/ML INJ IV PRN (02:35)
[2023-08-13 02:48] LABS: Glucose,Whole Blood 146 mg/dL (70-110)
--- NOTE | 2023-08-13 02:56 | XR ---
EXAM: XR Chest, 1 View CLINICAL HISTORY: ITS.REASON XR Reason: hypercapnia TECHNIQUE: Frontal view of the chest. COMPARISON: No relevant prior studies available. FINDINGS: Lungs: No consolidation or mass. Pleural space: No acute findings Heart: No cardiomegaly. Bones/joints: No acute findings. IMPRESSION: No acute cardiopulmonary process.
[2023-08-13 05:55] LABS: Glucose,Whole Blood 120 mg/dL (70-110)
[2023-08-13] MEDS: INSULIN ASPART (NovoLOG) 100 UNIT/ML VIAL SQ SCH ×2 (06:00→18:09)
--- NOTE | 2023-08-13 07:45 | XR ---
EXAM: XR chest 1V portable CLINICAL INDICATION:Female, 52 years old with history of respiratory failure; [facility] COMPARISON: 08/13/2023 241AM, 08/10/2023 TECHNIQUE: Chest single view. FINDINGS: Lines/tubes/devices: No indwelling lines are seen. There are moderately dense and other extrinsic den sities over the field of view which can interfere with interpretation. Cardiomediastinum: Cardiac silhouette appears normal in size. Unremarkable mediastinal silhouette. Vasculature: No increased pulmonary vasculature. Lungs/pleura: No consolidation, sizeable effusion, or visible pneumothorax. Stable mildly prominent interstitial liberty ng markings and mild hyperinflation, likely chronic changes. Bones/soft tissues: Bony thorax appears grossly intact as seen. Regional soft tissues appear unremarkable. Mild degenerative changes. IMPRESSION: No acute findings, or significant interval change.
[2023-08-13 10:16] LABS: VBG PH 7.22 (7.31-7.41)
[2023-08-13 10:35] LABS: Basophils # (A) 0.1 k/uL (0-0.2); Basophils % (A) 0 %; Eosinophils % (A) 0 %; HCT 46.6 % (34.0-46.0); HGB 14.5 gm/dL (11.4-16.0); Hypochromasia Marked; Lymphocytes # (A) 1.3 k/uL (1.0-4.8); Lymphocytes % (A) 8 %; MCH 33.2 pg (25.0-35.0); Macrocytosis Moderate; Mean Platelet Volume 7.2; Monocytes # (A) 0.8 k/uL (0-1.0); Monocytes % (A) 5 %; Neutrophils # (A) 13.3 k/uL (1.3-7.7); Neutrophils % (A) 85 %; Platelet Count 306 k/uL (150-450); RBC 4.35 m/uL (3.80-5.40); WBC 15.7 k/uL (3.8-10.6)
--- NOTE | 2023-08-13 10:35 | P.PN ---
Subjective Progress Note Date: 08/13/23 This is a 52-year-old female patient with known history of COPD. The patient is maintained on Trelegy Ellipta on outpatient basis and she also has a DuoNeb nebulized treatment to be used on an as-needed basis. She is known to have HIV and currently she is on Biktarvy followed up by Dr. Salguero on outpatient basis regarding her HIV. She is not aware of her recent CD4 counts and viral loads. She has been having issues with increased respiratory distress and [employer] exacerbation for the past 2 to 3 weeks. She received several rounds of antibiotics and steroids for our office for [employer] exacerbation she did not encounter any significant improvement. She ultimately came into the hospital for increased shortness of breath. She was briefly placed on BiPAP and the patient is currently on oxygen at 6 L/min nasal cannula with a pulse ox of 98%. She is quite short of breath even at rest. Not using accessory muscles of breathing. Sodium levels at 126, potassium is 4.3, bicarb is 29, BUN is at 8 with a creatinine of 0.39. WBC count of 4.7 with a hemoglobin of 14.5 and a platelet count of 241. The viral screen came back negative. The chest x-ray shows no acute abnormalities. There is hyperinflation consistent with COPD. Scattered senescent parenchymal changes are seen bilaterally. Findings are essentially consistent with COPD. She was started on bronchodilators with DuoNeb updrafts. She is also on IV Solu-Medrol. She was started on Zithromax as an empiric antibiotic coverage and she is also normal saline at rate of 75 cc an hour. No frequent hospital admissions for COPD exacerbation. Her last admission to the hospital was back in 2021 essentially same presentation. She has been trying to quit smoking and she has not smoked for the past several months. She has been smoking since the age of 11 and she carries more than [id number] smoking history. On 08/11/2023, the patient is being seen for a follow-up. The patient was hospitalized for an acute Exacerbation the patient is feeling better on today's evaluation this bronchospastic and wheezy. She is known to have HIV. Viral constant CD4 counts are still pending for now. She is currently on Zithromax, IV Solu-Medrol, DuoNeb nebulized treatments [id number]. She has failed outpatient treatment for that reason the patient was hospitalized. No fever. No altered mentation. No other new complaints otherwise for now. Oxygenation is stable on 3 L O2 nasal cannula with a pulse ox of 98%. On today's evaluation of 08/12/2023, the patient reports limited improvement since yesterday. Still bronchospastic and wheezy and continues to be short of breath. Maintained on Symbicort and DuoNeb updrafts and maintained on IV Solu- Medrol 60 mg every 6 hours. She remains on empiric antibiotic coverage with IV Zithromax. No nausea vomiting or diarrhea. BUN is at 19 with a creatinine of 0.5 and a sodium levels at 138. No other significant events otherwise for now. The patient has a impaired CD4 count of 81. As such, the patient is high immunosuppressed and she may be potentially at risk of opportunistic infection. Patient continue antiretroviral treatment. Obtain a follow-up chest x-ray tomorrow. On 08/13/2023, the patient is quite lethargic on a BiPAP. Events from yesterday was noted. The patient became progressively more short of breath. She became restless, anxious, along with increased agitation and respiratory distress. The patient accordingly was placed on a BiPAP at a pressure of 12 over 5 cm of water and currently she is on #2 of 60%. She is generating a tidal volume of around about 400 with a minute ventilation of 7.4. Respirate is currently at 18. She is actively bronchospastic and wheezy. Blood gases that was done before the BiPAP utilization showed a pH of 7.24 with a pCO2 of 98 and pO2 of 69. Rest of the labs from today are still pending. A repeat chest x-ray was done this morning and it shows no evidence of any acute cardiopulmonary process. The patient remains on bronchodilators. The patient remains on IV Solu-Medrol 60 mg every 6 hours. As mentioned earlier, her CD4 count was low at 81. Nevertheless, no indication for any opportunistic infections at this point in time. Her temperature is low and the patient is afebrile and hemodynamically stable. She did receive Ativan 1 mg and she seems to be much more comfortable and synchronous with the BiPAP treatment. Will transfer the patient to the intensive care unit. Will repeat her blood gas. Use Precedex if needed. Objective - Vital Signs Vital signs: Vital Signs Temp 97.6 F 08/13/23 05:02 Pulse 98 08/13/23 08:55 Resp 17 08/13/23 05:02 BP 144/84 08/13/23 08:40 Pulse Ox 94 L 08/13/23 08:55 FiO2 80 08/13/23 09:30 Intake & Output 08/12/23 08/13/23 08/13/23 18:59 06:59 18:59 Other: Voiding Method Incontinent # Voids 3 - Exam Patient is mild degree of respiratory distress even at rest. She is currently on BiPAP at a pressure of 12 over 5 cm of water with an FiO2 of 60%. She is sedated on that effect of Ativan. The patient is tolerating the BiPAP reasonably well. Head exam was generally normal. There was no scleral icterus or corneal arcus. Mucous membranes were moist. Neck was supple and without jugular venous distension, thyromegaly, or carotid bruits. Carotids were easily palpable bilaterally. There was no adenopathy. Lung sounds are diminished and the patient has a barrel chest. Marked diminished breath sound bilaterally patient lung bases. Scattered expiratory wheezes also appreciated. There is prolongation of exhalation phase of breathing and marked diminished breath sounds bilaterally. Cardiac exam revealed the PMI to be normally situated and sized. The rhythm was regular and no extrasystoles were noted during several minutes of auscultation. The first and second heart sounds were normal and physiologic splitting of the second heart sound was noted. There were no murmurs, rubs, clicks, or gallops. Abdominal exam revealed normal bowel sounds. The abdomen was soft, non-tender, and without masses, organomegaly, or appreciable enlargement of the abdominal aorta. Examination of the extremities revealed easily palpable radial, femoral and pedal pulses. There was no cyanosis, clubbing or edema. Examination of the skin revealed no evidence of significant rashes, suspicious appearing nevi or other concerning lesions. Neurologically, the patient is lethargic and drowsy under the effect of Ativan. She is also on a BiPAP. Also, patient does not have any focal neurological deficit. Cranial nerves are essentially intact. - Labs CBC & Chem 7: 08/10/23 13:19 08/12/23 12:13 Labs: Abnormal Lab Results - Last 24 Hours (Table) 08/10/23 08/12/23 08/13/23 Range/Units 22:02 12:13 02:02 ABG pH 7.24 L (7.35-7.45) ABG pCO2 98 H* (35-45) mmHg ABG pO2 69 L (83-108) mmHg ABG HCO3 43 H* (21-25) mmol/L ABG Total CO2 46 H (19-24) mmol/L ABG O2 Saturation 93.0 L (94-97) % Carbon Dioxide 37 H (22-30) mmol/L BUN 19 H (7-17) mg/dL Glucose 119 H (74-99) mg/dL POC Glucose (mg/dL) (70-110) mg/dL T-Suppressor Cells 128 L (190-832) cell/ul % CD4 [place] 28 L (35-66) % Absolute CD4 [place] 81 L (443-1471) cell/ul CD4/CD8 Ratio 0.6 L (1.0-3.7) % CD8 Suppressor 44 H (9-37) % 08/13/23 08/13/23 Range/Units 02:47 05:54 ABG pH (7.35-7.45) ABG pCO2 (35-45) mmHg ABG pO2 (83-108) mmHg ABG HCO3 (21-25) mmol/L ABG Total CO2 (19-24) mmol/L ABG O2 Saturation (94-97) % Carbon Dioxide (22-30) mmol/L BUN (7-17) mg/dL Glucose (74-99) mg/dL POC Glucose (mg/dL) 146 H 120 H (70-110) mg/dL T-Suppressor Cells (190-832) cell/ul % CD4 [place] (35-66) % Absolute CD4 [place] (443-1471) cell/ul CD4/CD8 Ratio (1.0-3.7) % CD8 Suppressor (9-37) % Microbiology - Last 24 Hours (Table) 08/10/23 13:19 Blood Culture - Preliminary Blood Assessment and Plan Plan: Acute exacerbation of chronic COPD, failed outpatient treatment despite being on antibiotics and steroids. Presented with worsening shortness of breath. The patient was initially placed on a BiPAP and subsequently she was weaned off the BiPAP. However, over the past 12 to 24 hours, she has become more short of braulio th and she developed an acute on chronic hypercapnic respiratory failure. Requiring back to be placed on a BiPAP pressure of 12 over 5 cm of water with an FiO2 of 60%. She will need close monitoring while on the BiPAP. High risk for intubation mechanical ventilation. Chest x-ray shows no acute airspace disease or consolidation or pneumonia at this point. She remains on bronchodilators. She remains on IV Solu-Medrol. /Hypercapnic respiratory failure secondary to above Acute hypoxic Advanced COPD at baseline and the patient has been maintained on Trelegy Ellipta on outpatient basis History of smoking History of HIV currently on Biktarvy. Viral count and CD4 counts are not known. No previous history of a persistent infections. The patient has not been receiving any form of antibiotic treatments such as Bactrim. Her infectious disease doctor is Dr. Salguero. The CD4 count is at 81 Plan Transfer the patient to the intensive care unit Continue BiPAP therapy Obtain a follow-up blood gas Consider intubation if there is further decompensation or worsening in the respiratory acidosis Use Precedex if needed Agree on the current management of bronchodilators and steroids Continue [facility] Continue IV Solu-Medrol 60 mg every 6 hours Empiric antibiotic coverage with Zithromax in combination with Rocephin. The patient is immunosuppressed with a CD4 count of 81. Awaiting the viral load Repeat chest x-ray in the morning We will continue to follow. Condition is critical. This evaluation was done more than 30 minutes. Time with Patient: Greater than 30
[2023-08-13 10:46] LABS: MCV 107.1 fL (80.0-100.0)
[2023-08-13 11:10] LABS: Glucose,Whole Blood 163 mg/dL (70-110)
[2023-08-13 11:29] LABS: Glucose,Whole Blood 148 mg/dL (70-110)
[2023-08-13] MEDS: AZITHROMYCIN 500 MG in SODIUM CHLORIDE 0.9% 250 ML IVPB SCH (11:31)
[2023-08-13] MEDS: SODIUM CHLORIDE 0.9% 1,000 ML IV SCH (11:31)
[2023-08-13 11:36] LABS: ABG Base Excess 16.8 mmol/L; ABG Oxygen Saturation 99.1 % (94-97); ABG PH 7.22 (7.35-7.45); ABG PO2 205 mmHg (83-108); ABG TCO2 48 mmol/L (19-24); Allen Test Performed? Yes
[2023-08-13 11:42] LABS: ABG HCO3 45 mmol/L (21-25); ABG PCO2 109 mmHg (35-45)
[2023-08-13] MEDS: LEVOFLOXACIN 750MG-D5W PMX 750 MG in DEXTROSE/WATER 1 150ML.BAG IVPB SCH (12:08)
[2023-08-13] MEDS: CISATRACURIUM 2 MG/ML 5 ML VIAL IV ONE (12:44)
[2023-08-13 12:57] LABS: Calcium 9.1 mg/dL (8.7-10.3); Carbon Dioxide 38.2 mmol/L (21.6-31.8); Chloride 94 mmol/L (96-109); Glucose 168 mg/dL (70-110); Potassium 5.4 mmol/L (3.5-5.5); Sodium 141 mmol/L (135-145)
--- NOTE | 2023-08-13 13:34 | P.PCN ---
Date of Procedure: 08/13/23 Operative Findings: Preoperative Diagnosis: Acute hypercapnic respiratory failure Postoperative Diagnosis: Same Procedure(s) Performed: Intubation, insertion of a central line, insertion of an arterial line, bronchoscopy with bronchoalveolar lavage of the lingula Surgeon: Patti Portillo Estimated Blood Loss (ml): 0 Pathology: other Condition: critical Disposition: ICU Operative Findings: Intubation This procedure was done under emergency settings. At that point, the patient was given 10 mg of IV propofol. Following that, a #4 laryngoscope was utilized to visualize the posterior pharynx and larynx. Epiglottis was identified. The upper airway was full of gastric material, greenish, liquidy, and the material was also extending into her upper trachea. Manual aspiration was done using a suctioning device. While undergoing continuous aspiration and suctioning, I was able to utilize a #4 laryngoscope, a MAC blade, and I was able to visualize the vocal cords. Immediately under direct visualization, and #8 orotracheal tube was inserted and the balloon was inflated and manual bagging was performed. I noted some of the gastric material within the orotracheal tube. Breath sounds were equal bilaterally and there was positive, dioxide change on the, dioxide detector. Central Line Procedure Note Central Line Location: [_] Right or [_x] Left [_] Internal Jugular Vein or [x_] Subclavian Vein or [_] Femoral Vein Consent: [_] Consent was obtained from prior to the procedure. Indications, risks and benefits were discussed prior to the procedure. [x_] The procedure was performed emergently and the permission was implied because of the emergent nature. The [facility] Central Line Insertion Practices form was completed during and immediately following the procedure. A time out was performed. My hands were washed immediately prior to the procedure. I wore a surgical cap, mask with protective eyewear, full gown and sterile gloves throughout the procedure. The patient was placed in Trendelenburg position. The Left chest was prepped using chlorhexidine scrub and draped in sterile fashion using a three quarter sheet drape and sterile towels. Skin preparation was allowed to dry prior to skin puncture. Anatomic landmarks were identified. Anesthesia was achieved over the vein using 1% lidocaine. The introducer needle was inserted into the vein. Venous blood was withdrawn. The syringe was removed and a guidewire was advanced into the introducer needle. A small incision was made at the skin surface with a scalpel and the introducer needle was exchanged for a dilator over the guide wire. After appropriate dilation was obtained, the dilator was exchanged over the wire for an antimicrobial coated central venous catheter. The wire was removed and the catheter was sutured in place . A biopatch was placed at the insertion site. A sterile op-site was placed over the catheter and biopatch. The patient tolerated the procedure without any hemodynamic compromise. At time of procedure completion, all ports aspirated and flushed properly. Post-procedure chest x-ray : [_] Is pending at this time. [_x ] Shows adequate positioning of the catheter for use. Arterial line Indication: Hemodynamic monitoring. A time-out was completed verifying correct patient, procedure, site, positioning, and implant(s) or special equipment if applicable. The patients right groin was prepped and draped in sterile fashion. 1% Lidocaine was used to anesthetize the area. An 18G [place] arterial line was introduced into the right femoral artery. The catheter was threaded over the guide wire and the needle was removed with appropriate pulsatile blood return. Blood loss was minimal. The catheter was then sutured in place to the skin and a sterile dressing applied. Perfusion to the extremity distal to the point of catheter insertion was checked and found to be adequate. The patient tolerated the procedure well and there were no complications. Bronchoscopy This patient is already intubated on mechanical ventilator. Patient is sedated and paralyzed. Using the disposable bronchoscope, the procedure was completed. The flexible bronchoscope was easily passed through the orotracheal tube and a complete airway examination was done. Airways visualized including distal trachea, bilateral mainstem bronchi, right upper lobe bronchus, bronchus intermedius, right middle lobe and right lower lobe bronchus and the various 10 segments on the right and examination of the left side include the left upper lobe bronchus and the left lower lobe bronchus and the various 8 segments on the left. No abnormalities identified. No secretions. No mucosal abnormalities. The bronchoscope was wedged into superior segment of the lingula. A total of 0 cc of saline was infused. 20 cc was aspirated. Aspirate was nonbloody. This was sent for microbial cultures and analysis. Bronchoscope was removed. Oxygen saturations throughout the procedure. Patient tolerated the procedure well without any hemodynamic instability.
--- NOTE | 2023-08-13 13:37 | XR ---
EXAMINATION TYPE: XR chest 1V portable DATE OF EXAM: 08/13/2023 1:22 PM CLINICAL INDICATION:Female, 52 years old with history of Intubation, OGT insert, central line placeme nt; [facility] COMPARISON: Chest radiographs from 08/13/2023 TECHNIQUE: XR chest 1V portable Frontal view of the chest. FINDINGS: Lungs/Pleura: There is no evidence of pleural effusion, focal consolidation, or pneumothorax. Pulmonary vascularity: Unremarkable. Heart/mediastinum: Cardiomediastinal silhouette is unremarkable. Musculoskeletal: No acute osseous pathology. Other findings: None Lines/Tubes: Endotracheal tube with distal tip 7.9 cm above the angel. Nasogastric tube with its distal tip and side-port projecting under the diaphragm. Left central venous catheter with distal tip at the cavoatrial junction. IMPRESSION: 1. Consider advancement of 4 cm for optimal placement of endotracheal tube. 2. No acute cardiopulmonary disease/process.
[2023-08-13 13:41] LABS: ABG PH 7.35 (7.35-7.45); ABG PO2 >400 mmHg (83-108); ABG TCO2 44 mmol/L (19-24); Allen Test Performed? Yes
[2023-08-13 13:43] LABS: ABG HCO3 42 mmol/L (21-25); ABG PCO2 76 mmHg (35-45)
[2023-08-13 13:44] LABS: ABG Oxygen Saturation 99.7 % (94-97)
[2023-08-13 13:52] LABS: ALT 80 U/L (4-34); African American GFR (CKD) >90 (>60 ml/min/1.73 sqM); Albumin 3.4 g/dL (3.5-5.0); Anion Gap 1 mmol/L; Blood Urea Nitrogen 31 mg/dL (7-17); Calcium 8.2 mg/dL (8.4-10.2); Carbon Dioxide 39 mmol/L (22-30); Chloride 95 mmol/L (98-107); Glucose 182 mg/dL (74-99); Non-African American GFR(CKD) >90 (>60 ml/min/1.73 sqM); Sodium 135 mmol/L (137-145); Total Bilirubin 0.4 mg/dL (0.2-1.3); Total Protein 5.8 g/dL (6.3-8.2)
[2023-08-13 13:57] LABS: AST 52 U/L (14-36); Potassium 5.1 mmol/L (3.5-5.1)
[2023-08-13 13:58] LABS: Alkaline Phosphatase 53 U/L (38-126)
[2023-08-13] MEDS: CISATRACURIUM 200 MG in SODIUM CHLORIDE 0.9% 180 ML IV SCH (14:37)
--- NOTE | 2023-08-13 14:40 | P.PN ---
Subjective Progress Note Date: 08/13/23 52-year-old female presenting to the emergency department with difficulty breathing. Symptoms have been present for the past 3 days. Occasional cough, nonproductive. No fever or recent upper respiratory infection. No calf pain or leg swelling. Patient does have history of similar symptoms previously associated with COPD. Patient is a former smoker, patient has more than 40 pack years history of smoking. Sodium levels at 126, potassium is 4.3, bicarb is 29, BUN is at 8 with a creatinine of 0.39. WBC count of 4.7 with a hemoglobin of 14.5 and a platelet count of 241. The viral screen came back negative. The chest x-ray shows no acute abnormalities. There is hyperinflation consistent with COPD. Scattered senescent parenchymal changes are seen bilaterally. Findings are essentially consistent with COPD. She was briefly placed on BiPAP and the patient is currently on oxygen at 6 L/min nasal cannula with a pulse ox of 98%. She is quite short of breath even at rest. Not using accessory muscles of breathing. She was started on bronchodilators with Karen rinconfts. She is also on IV Solu-Medrol. She was started on Zithromax as an empiric antibiotic coverage and she is also normal saline at rate of 75 cc an hour. 08/13/2023 Patient is seen and evaluated in room at bedside; has been transferred to selective care unit; patient was getting short of breath and anxious with increasing agitation; patient was transferred to stepdown unit and placed on BiPAP --Patient continuing to be more lethargic this morning; evaluated by critical care service -- Chest x-ray completed this morning is negative for any acute process -Patient is currently on IV Solu-Medrol, bronchodilator nebulizer treatments and antibiotic therapy -- Patient is breathing comfortably with BiPAP; critical care planning to transfer patient to ICU for close monitoring with further recommendations once repeat blood gases are available Objective - Vital Signs Vital signs: Vital Signs Temp 97.6 F 08/13/23 05:02 Pulse 98 08/13/23 08:55 Resp 17 08/13/23 05:02 BP 144/84 08/13/23 08:40 Pulse Ox 94 L 08/13/23 08:55 FiO2 80 08/13/23 09:30 Intake & Output 04/13/24 04/14/24 04/14/24 18:59 06:59 18:59 Other: Voiding Method Incontinent # Voids 3 - Exam Patient is mild degree of respiratory distress even at rest. Patient is less responsive this morning. Head exam was generally normal. There was no scleral icterus or corneal arcus. M ucous membranes were moist. Neck was supple and without jugular venous distension, thyromegaly, or carotid bruits. Carotids were easily palpable bilaterally. There was no adenopathy. Lung sounds are diminished and the patient has a barrel chest. Marked diminished breath sound bilaterally patient lung bases. Scattered expiratory wheezes also appreciated. Cardiac exam revealed the PMI to be normally situated and sized. The rhythm was regular and no extrasystoles were noted during several minutes of auscultation. The first and second heart sounds were normal and physiologic splitting of the second heart sound was noted. There were no murmurs, rubs, clicks, or gallops. Abdominal exam revealed normal bowel sounds. The abdomen was soft, non-tender, and without masses, organomegaly, or appreciable enlargement of the abdominal aorta. Examination of the extremities revealed easily palpable radial, femoral and pedal pulses. There was no cyanosis, clubbing or edema. Examination of the skin revealed no evidence of significant rashes, suspicious appearing nevi or other concerning lesions. Neurologically; patient is more sleepy and lethargic; patient does not have any focal neurological deficit. Cranial nerves are essentially intact. - Labs CBC & Chem 7: 08/13/23 08:56 08/13/23 13:27 Labs: Abnormal Lab Results - Last 24 Hours (Table) 08/10/23 08/12/23 08/13/23 Range/Units 22:02 12:13 02:02 ABG pH 7.24 L (7.35-7.45) ABG pCO2 98 H* (35-45) mmHg ABG pO2 69 L (83-108) mmHg ABG HCO3 43 H* (21-25) mmol/L ABG Total CO2 46 H (19-24) mmol/L ABG O2 Saturation 93.0 L (94-97) % Carbon Dioxide 37 H (22-30) mmol/L BUN 19 H (7-17) mg/dL Glucose 119 H (74-99) mg/dL POC Glucose (mg/dL) (70-110) mg/dL T-Suppressor Cells 128 L (190-832) cell/ul % CD4 [place] 28 L (35-66) % Absolute CD4 [place] 81 L (443-1471) cell/ul CD4/CD8 Ratio 0.6 L (1.0-3.7) % CD8 Suppressor 44 H (9-37) % 08/13/23 08/13/23 Range/Units 02:47 05:54 ABG pH (7.35-7.45) ABG pCO2 (35-45) mmHg ABG pO2 (83-108) mmHg ABG HCO3 (21-25) mmol/L ABG Total CO2 (19-24) mmol/L ABG O2 Saturation (94-97) % Carbon Dioxide (22-30) mmol/L BUN (7-17) mg/dL Glucose (74-99) mg/dL POC Glucose (mg/dL) 146 H 120 H (70-110) mg/dL T-Suppressor Cells (190-832) cell/ul % CD4 [place] (35-66) % Absolute CD4 [place] (443-1471) cell/ul CD4/CD8 Ratio (1.0-3.7) % CD8 Suppressor (9-37) % Microbiology - Last 24 Hours (Table) 08/10/23 13:19 Blood Culture - Preliminary Blood Assessment and Plan Assessment: 1. Acute hypoxic respiratory failure; related to COPD exacerbation --We will continue with O2 at 6 L per nasal cannula keeping O2 saturation greater than 90% -Continue with Solu-Medrol nebulizer treatments -- Empiric antibiotic coverage with IV Rocephin 2. History of smoking cessation; counseling done on need for quitting smoking 3. HIV/AIDS; patient is currently on Biktarvy; viral load and CD4 counts have been addressed VT prophylaxis; SCDs CODE STATUS; full code
--- NOTE | 2023-08-13 17:13 | CT ---
EXAMINATION TYPE: CT brain wo con CT DLP: 1133.4 mGycm, Automated exposure control for dose reduction was used. DATE OF EXAM: 08/13/2023 4:44 PM COMPARISON: None. CLINICAL INDICATION:Female, 52 years old with history of unequal pupils, unequal pupils. r/o stroke TECHNIQUE: Brain: Axial CT images of the brain were obtained with coronal and sagittal reformats created and rev iewed. Contrast used: None. Oral contrast used: None. FINDINGS: Brain: Extra-axial spaces: No abnormal extra-axial fluid collections. Ventricular system: Within normal limits Cerebral parenchyma: No acute intraparenchymal hemorrhage or mass effect. Focal area of hypoattenuat ion involving the inferior right temporal lobe. Cerebellum: Unremarkable. Mass effect: No evidence of midline shift. Intracranial vasculature: unremarkable Soft tissues: Normal. Calvarium/osseous structures: No depressed skull fracture. Paranasal sinuses and mastoid air cells: Mucous retention cyst involving the right maxillary sinus. M ild mucosal thickening of ethmoid air cells. Visualized orbits: Orbital contents are intact. IMPRESSION: Focal area of hypoattenuation involving the inferior right temporal lobe. Findings may represent age- indeterminate infarct. Consider follow-up MRI of the brain for further evaluation. No evidence of hem orrhage.
[2023-08-13 18:04] LABS: Glucose,Whole Blood 161 mg/dL (70-110)
[2023-08-13] MEDS: CHLORHEXIDINE GLUCONATE 15 ML CUP MUCOUS MEM SCH (20:06)
[2023-08-13] MEDS: SODIUM CHLORIDE 0.9% 1,000 ML IV ONE (21:27)
[2023-08-13 23:38] LABS: Glucose,Whole Blood 162 mg/dL (70-110)
[2023-08-14 05:20] LABS: Basophils % (A) 0 %; Eosinophils % (A) 0 %; HGB 12.5 gm/dL (11.4-16.0); Hypochromasia Slight; Lymphocytes # (A) 0.6 k/uL (1.0-4.8); Lymphocytes % (A) 6 %; MCH 32.4 pg (25.0-35.0); MCHC 31.3 g/dL (31.0-37.0); MCV 103.7 fL (80.0-100.0); Macrocytosis Slight; Mean Platelet Volume 7.7; Monocytes # (A) 0.4 k/uL (0-1.0); Monocytes % (A) 4 %; Neutrophils # (A) 8.2 k/uL (1.3-7.7); Neutrophils % (A) 89 %; Platelet Count 206 k/uL (150-450); RBC 3.85 m/uL (3.80-5.40); RDW 13.3 % (11.5-15.5); WBC 9.2 k/uL (3.8-10.6)
[2023-08-14 05:30] LABS: African American GFR (CKD) >90 (>60 ml/min/1.73 sqM); Anion Gap -2 mmol/L; Blood Urea Nitrogen 29 mg/dL (7-17); Calcium 8.3 mg/dL (8.4-10.2); Carbon Dioxide 37 mmol/L (22-30); Chloride 100 mmol/L (98-107); Glucose 151 mg/dL (74-99); Non-African American GFR(CKD) >90 (>60 ml/min/1.73 sqM); Potassium 4.4 mmol/L (3.5-5.1); Sodium 135 mmol/L (137-145)
[2023-08-14 05:50] LABS: Glucose,Whole Blood 167 mg/dL (70-110)
[2023-08-14 06:08] LABS: ABG Base Excess 13.2 mmol/L; ABG HCO3 37 mmol/L (21-25); ABG PCO2 51 mmHg (35-45); ABG PH 7.47 (7.35-7.45); ABG TCO2 38 mmol/L (19-24); Allen Test Performed? Yes
[2023-08-14 06:12] LABS: ABG PO2 59 mmHg (83-108)
--- NOTE | 2023-08-14 07:57 | XR ---
EXAMINATION TYPE: XR chest 1V portable DATE OF EXAM: 08/14/2023 COMPARISON: 08/13/2023 INDICATION: Tube placement TECHNIQUE: Single frontal view of the chest is obtained. FINDINGS: The heart size is normal. The pulmonary vasculature is normal. The lungs are clear. There is hyperinflation compatible with COPD Endotracheal tube tip is above the angel. Nasogastric tube tip is in the left upper quadrant of the abdomen. Left central venous catheter tip is in the distal superior vena cava region. IMPRESSION: 1. No acute pulmonary process. 2. Emphysematous changes. 3. Multiple lines and catheters discussed above.
[2023-08-14] MEDS: PANTOPRAZOLE 40 MG/10 ML VIAL IV SCH (09:00)
[2023-08-14 09:07] LABS: HIV-1 RNA Not detected (Not detected)
[2023-08-14] MEDS: ENOXAPARIN 40 MG/0.4 ML SYRINGE SQ SCH (09:43)
[2023-08-14] MEDS: HYDROmorphone 1 MG/ML 1 ML SYRINGE IVP SCH (10:11)
--- NOTE | 2023-08-14 10:55 | P.PN ---
Subjective Progress Note Date: 08/14/23 Principal diagnosis: Acute hypoxic respiratory failure secondary to acute exacerbation of COPD This is a 52-year-old female patient with known history of COPD. The patient is maintained on Trelegy Ellipta on outpatient basis and she also has a DuoNeb nebulized treatment to be used on an as-needed basis. She is known to have HIV and currently she is on Biktarvy followed up by Dr. Salguero on outpatient basis regarding her HIV. She is not aware of her recent CD4 counts and viral loads. She has been having issues with increased respiratory distress and [employer] exacerbation for the past 2 to 3 weeks. She received several rounds of antibiotics and steroids for our office for [employer] OPER[employer] exacerbation she did not encounter any significant improvement. She ultimately came into the hospital for increased shortness of breath. She was briefly placed on BiPAP and the patient is currently on oxygen at 6 L/min nasal cannula with a pulse ox of 98%. She is quite short of breath even at rest. Not using accessory muscles of breathing. Sodium levels at 126, potassium is 4.3, bicarb is 29, BUN is at 8 with a creatinine of 0.39. WBC count of 4.7 with a hemoglobin of 14.5 and a platelet count of 241. The viral screen came back negative. The chest x-ray shows no acute abnormalities. There is hyperinflation consistent with COPD. Scattered senescent parenchymal changes are seen bilaterally. Findings are essentially consistent with COPD. She was started on bronchodilators with D uoNeb updrafts. She is also on IV Solu-Medrol. She was started on Zithromax as an empiric antibiotic coverage and she is also normal saline at rate of 75 cc an hour. No frequent hospital admissions for COPD exacerbation. Her last admission to the hospital was back in 2021 essentially same presentation. She has been trying to quit smoking and she has not smoked for the past several months. She has been smoking since the age of 11 and she carries more than [id number] smoking history. On 08/11/2023, the patient is being seen for a follow-up. The patient was hospitalized for an acute Exacerbation the patient is feeling better on today's evaluation this bronchospastic and wheezy. She is known to have HIV. Viral constant CD4 counts are still pending for now. She is currently on Zithromax, IV Solu-Medrol, DuoNeb nebulized treatments [id number]. She has failed outpatient treatment for that reason the patient was hospitalized. No fever. No altered mentation. No other new complaints otherwise for now. Oxygenation is stable on 3 L O2 nasal cannula with a pulse ox of 98%. On today's evaluation of 08/12/2023, the patient reports limited improvement since yesterday. Still bronchospastic and wheezy and continues to be short of breath. Maintained on Symbicort and DuoNeb updrafts and maintained on IV Solu- Medrol 60 mg every 6 hours. She remains on empiric antibiotic coverage with IV Zithromax. No nausea vomiting or diarrhea. BUN is at 19 with a creatinine of 0.5 and a sodium levels at 138. No other significant events otherwise for now. The patient has a impaired CD4 count of 81. As such, the patient is high immunosuppressed and she may be potentially at risk of opportunistic infection. Patient continue antiretroviral treatment. Obtain a follow-up chest x-ray tomorrow. On 08/13/2023, the patient is quite lethargic on a BiPAP. Events from yesterday was noted. The patient became progressively more short of breath. She became restless, anxious, along with increased agitation and respiratory distress. The patient accordingly was placed on a BiPAP at a pressure of 12 over 5 cm of water and currently she is on #2 of 60%. She is generating a tidal volume of around about 400 with a minute ventilation of 7.4. Respirate is currently at 18. She is actively bronchospastic and wheezy. Blood gases that was done before the BiPAP utilization showed a pH of 7.24 with a pCO2 of 98 and pO2 of 69. Rest of the labs from today are still pending. A repeat chest x-ray was done this morning and it shows no evidence of any acute cardiopulmonary process. The patient remains on bronchodilators. The patient remains on IV Solu-Medrol 60 mg every 6 hours. As mentioned earlier, her CD4 count was low at 81. Nevertheless, no indication for any opportunistic infections at this point in time. Her temperature is low and the patient is afebrile and hemodynamically stable. She did receive Ativan 1 mg and she seems to be much more comfortable and synchronous with the BiPAP treatment. Will transfer the patient to the intensive care unit. Will repeat her blood gas. Use Precedex if needed. Patient was placed today on 08/14/2023, patient was admitted few days ago, however yesterday patient was intubated and required mechanical ventilation. Patient is now on assist-control rate of 16 tidal volume 350 FiO2 45% and PEEP of 5 ABG on 40% and rate of 16 showed a pO2 of 59 pCO2 51 pH of 7.47 hence I increased the FiO2 to 45% and cut down the rate to 14. Patient will be allowed to have more permissive hypercapnia patient is still requiring significant amount of sedation including propofol at 50 mcg/kg/min Nimbex at 2 mcg/kg/min she is also on Dilaudid [id number], on Lovenox enteral feeding, and IV fluid at 0.9 normal saline at 75 cc/h. Patient is not requiring any pressors or any inotropes. Patient is immunocompromise, she does have history of HIV, and she has very low CD4 count of 81. She is definitely high risk for opportunistic infections, infectious disease was consulted. Considering her gases and considering her physical exam findings, patient is not quite ready for weaning, and I have no plans to wean and extubate today. I will keep the patient presently on Nimbex, she got intubated last night, and will continue broncho dilators, continue steroids, and continue enteral feeding/nutritional support. Chest x-ray this morning showed emphysematous changes, no acute pulmonary process. CT of the brain showed a focal area of hypoattenuation involving the inferior right temporal lobe.May represent an infarct, possibly chronic. BBC count today is 9.2 hemoglobin is 12.5 basic metabolic profile is normal bicarb is 37, renal profile is normal. Objective - Vital Signs Vital signs: Vital Signs Temp 98 F 08/14/23 00:00 Pulse 104 H 08/14/23 08:02 Resp 16 08/14/23 06:00 BP 138/83 08/14/23 06:00 Pulse Ox 98 08/14/23 06:00 FiO2 45 08/14/23 08:05 Intake & Output 08/13/23 08/14/23 08/14/23 18:59 06:59 18:59 Intake Total 9926.519 2412 94.937 Output Total 535 325 Balance 192.110 4163 94.937 Weight 55.2 kg 56.2 kg Intake: IV 968 1936 Azithromycin 500 mg In 250 Sodium Chloride 0.9% 250 ml @ 250 mls/hr IVPB DAILY [facility] Rx#:[id number] Levofloxacin 750Mg-D5w 100 Pmx 750 mg In Dextrose/ Water 1 150ml.bag @ 100 mls/hr IVPB Q24H [facility] Rx#: [id number] Normal Saline Pressure 18 36 Bag Sodium Chloride 0.9% 1, 600 900 000 ml @ 75 mls/hr IV . [id number] [facility] Rx#:[id number] Sodium Chloride 0.9% 1, 1000 000 ml @ 999 mls/hr IV . Q1H1M [facility] Rx#:[id number] Intake, IV Titration 73.686 200 94.937 Amount Cisatracurium 200 mg In 3.864 Sodium Chloride 0.9% 180 ml @ 1 MCG/KG/MIN 3.312 mls/hr IV .Q24H [facility] Rx#: [id number] propofoL 1,000 mg In 69.822 200 94.937 Empty Bag 1 bag @ 15 MCG/ KG/MIN 5.715 mls/hr IV . [id number] [facility] Rx#:[id number] Other 60 Output: Urine 535 325 Other: Voiding Method Indwelling Catheter Indwelling Catheter ABP, PAP, CO, CI - Last Documented Arterial Blood Pressure 109/74 - Exam General: Revealed 52-year-old female intubated mechanically ventilated sedated and paralyzed, in no distress Skin: Skin is warm and dry and no rashes or lesions are noted. Eye: Pupils are equal, round and reactive to light, extra-ocular movements are intact; there is normal conjunctiva bilaterally. Ears, nose, mouth and throat: There are moist mucous membranes and no oral lesions. Endotracheal tube and orogastric tubes are intact. Neck: The neck is supple, there is no tenderness or JVD. Cardiovascular: Normal S1-S2, no S3 gallop. No murmur. Respiratory: Extremely diminished breath sound bilaterally no rhonchi no wheezes Gastrointestinal: Soft, non-distended, non-tender abdomen without masses or organomegaly noted. There is no rebound or guarding present. Bowel sounds are unremarkable. Back: There is no tenderness to palpation in the midline. There is no obvious deformity. Musculoskeletal: Deformities and no limitation range of motion Neurological: Could not not assess patient is sedated and paralyzed Psychiatric: Could not assess patient is sedated and paralyzed - Labs CBC & Chem 7: 08/14/23 04:33 08/14/23 04:33 Labs: Abnormal Lab Results - Last 24 Hours (Table) 08/13/23 08/13/23 08/13/23 Range/Units 08:53 08:53 08:56 WBC 15.7 H (3.8-10.6) k/uL Hct 46.6 H (34.0-46.0) % MCV 107.1 H D (80.0-100.0) fL Neutrophils # 13.3 H (1.3-7.7) k/uL Lymphocytes # (1.0-4.8) k/uL ABG pH (7.35-7.45) ABG pCO2 (35-45) mmHg ABG pO2 (83-108) mmHg ABG HCO3 (21-25) mmol/L ABG Total CO2 (19-24) mmol/L ABG O2 Saturation (94-97) % VBG pH 7.22 L (7.31-7.41) VBG pCO2 95 H* (37-51) mmHg VBG HCO3 39 H (24-28) mmol/L Sodium (137-145) mmol/L Chloride 94 L (96-109) mmol/L Carbon Dioxide 38.2 H (21.6-31.8) mmol/L BUN (7-17) mg/dL Creatinine 0.5 L (0.6-1.5) mg/dL BUN/Creatinine Ratio 46.00 H (12.00-20.00) Ratio Glucose 168 H (70-110) mg/dL POC Glucose (mg/dL) (70-110) mg/dL Calcium (8.4-10.2) mg/dL AST (14-36) U/L ALT (4-34) U/L Total Protein (6.3-8.2) g/dL Albumin (3.5-5.0) g/dL 08/13/23 08/13/23 08/13/23 Range/Units 11:07 11:26 11:28 WBC (3.8-10.6) k/uL Hct (34.0-46.0) % MCV (80.0-100.0) fL Neutrophils # (1.3-7.7) k/uL Lymphocytes # (1.0-4.8) k/uL ABG pH 7.22 L (7.35-7.45) ABG pCO2 109 H* (35-45) mmHg ABG pO2 205 H (83-108) mmHg ABG HCO3 45 H* (21-25) mmol/L ABG Total CO2 48 H (19-24) mmol/L ABG O2 Saturation 99.1 H (94-97) % VBG pH (7.31-7.41) VBG pCO2 (37-51) mmHg VBG HCO3 (24-28) mmol/L Sodium (137-145) mmol/L Chloride (96-109) mmol/L Carbon Dioxide (21.6-31.8) mmol/L BUN (7-17) mg/dL Creatinine (0.6-1.5) mg/dL BUN/Creatinine Ratio (12.00-20.00) Ratio Glucose (70-110) mg/dL POC Glucose (mg/dL) 163 H 148 H (70-110) mg/dL Calcium (8.4-10.2) mg/dL AST (14-36) U/L ALT (4-34) U/L Total Protein (6.3-8.2) g/dL Albumin (3.5-5.0) g/dL 08/13/23 08/13/23 08/13/23 Range/Units 13:27 13:39 18:03 WBC (3.8-10.6) k/uL Hct (34.0-46.0) % MCV (80.0-100.0) fL Neutrophils # (1.3-7.7) k/uL Lymphocytes # (1.0-4.8) k/uL ABG pH (7.35-7.45) ABG pCO2 76 H* (35-45) mmHg ABG pO2 >400 H (83-108) mmHg ABG HCO3 42 H* (21-25) mmol/L ABG Total CO2 44 H (19-24) mmol/L ABG O2 Saturation 99.7 H (94-97) % VBG pH (7.31-7.41) VBG pCO2 (37-51) mmHg VBG HCO3 (24-28) mmol/L Sodium 135 L (137-145) mmol/L Chloride 95 L (96-109) mmol/L Carbon Dioxide 39 H (21.6-31.8) mmol/L BUN 31 H (7-17) mg/dL Creatinine 0.39 L (0.6-1.5) mg/dL BUN/Creatinine Ratio (12.00-20.00) Ratio Glucose 182 H (70-110) mg/dL POC Glucose (mg/dL) 161 H (70-110) mg/dL Calcium 8.2 L (8.4-10.2) mg/dL AST 52 H (14-36) U/L ALT 80 H (4-34) U/L Total Protein 5.8 L (6.3-8.2) g/dL Albumin 3.4 L (3.5-5.0) g/dL 08/13/23 08/14/23 08/14/23 Range/Units 23:37 04:33 04:33 WBC (3.8-10.6) k/uL Hct (34.0-46.0) % MCV 103.7 H (80.0-100.0) fL Neutrophils # 8.2 H (1.3-7.7) k/uL Lymphocytes # 0.6 L (1.0-4.8) k/uL ABG pH (7.35-7.45) ABG pCO2 (35-45) mmHg ABG pO2 (83-108) mmHg ABG HCO3 (21-25) mmol/L ABG Total CO2 (19-24) mmol/L ABG O2 Saturation (94-97) % VBG pH (7.31-7.41) VBG pCO2 (37-51) mmHg VBG HCO3 (24-28) mmol/L Sodium 135 L (137-145) mmol/L Chloride (96-109) mmol/L Carbon Dioxide 37 H (21.6-31.8) mmol/L BUN 29 H (7-17) mg/dL Creatinine 0.43 L (0.6-1.5) mg/dL BUN/Creatinine Ratio (12.00-20.00) Ratio Glucose 151 H (70-110) mg/dL POC Glucose (mg/dL) 162 H (70-110) mg/dL Calcium 8.3 L (8.4-10.2) mg/dL AST (14-36) U/L ALT (4-34) U/L Total Protein (6.3-8.2) g/dL Albumin (3.5-5.0) g/dL 08/14/23 08/14/23 Range/Units 05:48 06:01 WBC (3.8-10.6) k/uL Hct (34.0-46.0) % MCV (80.0-100.0) fL Neutrophils # (1.3-7.7) k/uL Lymphocytes # (1.0-4.8) k/uL ABG pH 7.47 H (7.35-7.45) ABG pCO2 51 H (35-45) mmHg ABG pO2 59 L* (83-108) mmHg ABG HCO3 37 H (21-25) mmol/L ABG Total CO2 38 H (19-24) mmol/L ABG O2 Saturation (94-97) % VBG pH (7.31-7.41) VBG pCO2 (37-51) mmHg VBG HCO3 (24-28) mmol/L Sodium (137-145) mmol/L Chloride (96-109) mmol/L Carbon Dioxide (21.6-31.8) mmol/L BUN (7-17) mg/dL Creatinine (0.6-1.5) mg/dL BUN/Creatinine Ratio (12.00-20.00) Ratio Glucose (70-110) mg/dL POC Glucose (mg/dL) 167 H (70-110) mg/dL Calcium (8.4-10.2) mg/dL AST (14-36) U/L ALT (4-34) U/L Total Protein (6.3-8.2) g/dL Albumin (3.5-5.0) g/dL Microbiology - Last 24 Hours (Table) 08/10/23 13:19 Blood Culture - Preliminary Blood Assessment and Plan Assessment: Impression: Acute hypoxic respiratory failure secondary to acute exacerbation of COPD requiring intubation mechanical ventilation on 08/13/2023. Advanced COPD History of HIV, currently on biktarvy, patient has very low CD4 count, she is prone to opportunistic infections, the plan is to continue empiric antibiotics, she is on Rocephin and Zithromax, will consult infectious disease to evaluate. Patient is status post bronchoscopy and BAL on 08/12, workup is pending cultures are pending.. Status post bronchoscopy and BAL 08/12 Recommendation: Continue ventilatory support Continue GI and DVT prophylaxis Starting nutritional support/enteral feeding Continue bronchodilators and steroids including Solu-Medrol 60 mg IV push every 6 hours, Zithromax and Rocephin Considering low CD4 count, infectious disease was consulted. Chest x-ray was reviewed Labs were all reviewed Patient is critically ill, she is in critical condition prognosis is guarded. Critical care time is over 30 minutes not including the time for procedures Will continue tofollow Time with Patient: Greater than 30
[2023-08-14 11:47] LABS: Glucose,Whole Blood 167 mg/dL (70-110)
[2023-08-14] MEDS: CLEVIDIPINE BUTYRATE 25 MG in EMPTY BAG 1 BAG IV SCH (12:10)
--- NOTE | 2023-08-14 12:12 | OP ---
OPERATIVE REPORT DATE OF SERVICE : PROCEDURE PERFORMED: Placement of right brachial arterial line. PREOPERATIVE DIAGNOSIS: Acute hypoxic respiratory failure. POSTOPERATIVE DIAGNOSIS: Acute hypoxic respiratory failure. ANESTHESIA USED: None deployed. DESCRIPTION OF PROCEDURE: The patient was placed in a supine position, right brachial region was prepared in a sterile fashion. Drapes were applied. The right brachial artery was palpated, easily cannulated. A guidewire was placed and a Cook's catheter was inserted over the guidewire. Good blood flow, good waveform noted, no complications. Line was secured using 3.0 silk sutures. Again, no complications. MMODL / IJN: [id number] /
--- NOTE | 2023-08-14 13:31 | P.PN ---
Subjective Progress Note Date: 08/14/23 52-year-old female presenting to the emergency department with difficulty breathing. Symptoms have been present for the past 3 days. Occasional cough, nonproductive. No fever or recent upper respiratory infection. No calf pain or leg swelling. Patient does have history of similar symptoms previously a ssociated with COPD. Patient is a former smoker, patient has more than 40 pack years history of smoking. Sodium levels at 126, potassium is 4.3, bicarb is 29, BUN is at 8 with a creatinine of 0.39. WBC count of 4.7 with a hemoglobin of 14.5 and a platelet count of 241. The viral screen came back negative. The chest x-ray shows no acute abnormalities. There is hyperinflation consistent with COPD. Scattered senescent parenchymal changes are seen bilaterally. Findings are essentially consistent with COPD. She was briefly placed on BiPAP and the patient is currently on oxygen at 6 L/min nasal cannula with a pulse ox of 98%. She is quite short of breath even at rest. Not using accessory muscles of breathing. She was started on bronchodilators with DuWoo salgadorafts. She is also on IV Solu-Medrol. She was started on Zithromax as an empiric antibiotic coverage and she is also normal saline at rate of 75 cc an hour. 08/13/2023 Patient is seen and evaluated in room at bedside; has been transferred to selective care unit; patient was getting short of breath and anxious with increasing agitation; patient was transferred to stepdown unit and placed on BiPAP --Patient continuing to be more lethargic this morning; evaluated by critical care service -- Chest x-ray completed this morning is negative for any acute process -Patient is currently on IV Solu-Medrol, bronchodilator nebulizer treatments and antibiotic therapy -- Patient is breathing comfortably with BiPAP; critical care planning to transfer patient to ICU for close monitoring with further recommendations once repeat blood gases are available 08/13. Patient seen and examined. Continues to be intubated. Patient history of HIV. Currently on propofol. Getting tube feeding as well REVIEW OF SYSTEMS: Intubated PHYSICAL EXAMINATION: GENERAL: The patient is alert and oriented x3, not in any acute distress. Well developed, well nourished. HEENT: Pupils are round and equally reacting to light. EOMI. No scleral icterus. No conjunctival pallor. Normocephalic, atraumatic. No pharyngeal erythema. No thyromegaly. CARDIOVASCULAR: S1 and S2 present. No murmurs, rubs, or gallops. PULMONARY: Chest is clear to auscultation, no wheezing or crackles. ABDOMEN: Soft, nontender, nondistended, normoactive bowel sounds. No palpable organomegaly. MUSCULOSKELETAL: No joint swelling or deformity. EXTREMITIES: No cyanosis, clubbing, or pedal edema. NEUROLOGICAL: Gross neurological examination did not reveal any focal deficits. SKIN: No rashes. Assessment and plan Acute exacerbation of chronic COPD Acute hypoxemic hypercapnic respiratory failure Advanced COPD at baseline History of smoking History of HIV currently on Biktarvy. Viral count and CD4 counts are not known. No previous history of a persistent infections. The patient has not been receiving any form of antibiotic treatments such as Bactrim. Her infectious disease doctor is Dr. Salguero. The CD4 count is at 81 Monitor vital signs Monitor CBC Monitor CMP Continue telemetry monitoring Aggressive bronchopulmonary hygiene Continue vent management per ICU Continue IV Solu-Medrol Continue IV Levaquin and azithromycin Continue breathing treatments Critical care following ID consulted Labs and medication were reviewed.. Continue same treatment. Continue with symptomatic treatment. Resume home medication. Monitor labs and vitals. DVT and GI prophylaxis. Further recommendations as per clinical course of the p atient Dictation was produced using [employer] dictation software. please excuse any grammatical, word or spelling errors. Objective - Vital Signs Vital signs: Vital Signs Temp 98 F 08/14/23 00:00 Pulse 104 H 08/14/23 08:02 Resp 16 08/14/23 06:00 BP 138/83 08/14/23 06:00 Pulse Ox 98 08/14/23 06:00 FiO2 45 08/14/23 08:05 Intake & Output 08/13/23 08/14/23 08/14/23 18:59 06:59 18:59 Intake Total 0906.391 2712 94.937 Output Total 535 325 Balance 761.273 5415 94.937 Weight 55.2 kg 56.2 kg Intake: IV 968 1936 Azithromycin 500 mg In 250 Sodium Chloride 0.9% 250 ml @ 250 mls/hr IVPB DAILY [facility] Rx#:[id number] Levofloxacin 750Mg-D5w 100 Pmx 750 mg In Dextrose/ Water 1 150ml.bag @ 100 mls/hr IVPB Q24H [facility] Rx#: [id number] Normal Saline Pressure 18 36 Bag Sodium Chloride 0.9% 1, 600 900 000 ml @ 75 mls/hr IV . [id number] [facility] Rx#:[id number] Sodium Chloride 0.9% 1, 1000 000 ml @ 999 mls/hr IV . Q1H1M [facility] Rx#:[id number] Intake, IV Titration 73.686 200 94.937 Amount Cisatracurium 200 mg In 3.864 Sodium Chloride 0.9% 180 ml @ 1 MCG/KG/MIN 3.312 mls/hr IV .Q24H [facility] Rx#: [id number] propofoL 1,000 mg In 69.822 200 94.937 Empty Bag 1 bag @ 15 MCG/ KG/MIN 5.715 mls/hr IV . [id number] [facility] Rx#:[id number] Other 60 Output: Urine 535 325 Other: Voiding Method Indwelling Catheter Indwelling Catheter ABP, PAP, CO, CI - Last Documented Arterial Blood Pressure 109/74 - Labs CBC & Chem 7: 08/14/23 04:33 08/14/23 04:33 Labs: Abnormal Lab Results - Last 24 Hours (Table) 08/13/23 08/13/23 08/13/23 Range/Units 08:53 08:53 08:56 WBC 15.7 H (3.8-10.6) k/uL Hct 46.6 H (34.0-46.0) % MCV 107.1 H D (80.0-100.0) fL Neutrophils # 13.3 H (1.3-7.7) k/uL Lymphocytes # (1.0-4.8) k/uL ABG pH (7.35-7.45) ABG pCO2 (35-45) mmHg ABG pO2 (83-108) mmHg ABG HCO3 (21-25) mmol/L ABG Total CO2 (19-24) mmol/L ABG O2 Saturation (94-97) % VBG pH 7.22 L (7.31-7.41) VBG pCO2 95 H* (37-51) mmHg VBG HCO3 39 H (24-28) mmol/L Sodium (137-145) mmol/L Chloride 94 L (96-109) mmol/L Carbon Dioxide 38.2 H (21.6-31.8) mmol/L BUN (7-17) mg/dL Creatinine 0.5 L (0.6-1.5) mg/dL BUN/Creatinine Ratio 46.00 H (12.00-20.00) Ratio Glucose 168 H (70-110) mg/dL POC Glucose (mg/dL) (70-110) mg/dL Calcium (8.4-10.2) mg/dL AST (14-36) U/L ALT (4-34) U/L Total Protein (6.3-8.2) g/dL Albumin (3.5-5.0) g/dL 08/13/23 08/13/23 08/13/23 Range/Units 11:07 11:26 11:28 WBC (3.8-10.6) k/uL Hct (34.0-46.0) % MCV (80.0-100.0) fL Neutrophils # (1.3-7.7) k/uL Lymphocytes # (1.0-4.8) k/uL ABG pH 7.22 L (7.35-7.45) ABG pCO2 109 H* (35-45) mmHg ABG pO2 205 H (83-108) mmHg ABG HCO3 45 H* (21-25) mmol/L ABG Total CO2 48 H (19-24) mmol/L ABG O2 Saturation 99.1 H (94-97) % VBG pH (7.31-7.41) VBG pCO2 (37-51) mmHg VBG HCO3 (24-28) mmol/L Sodium (137-145) mmol/L Chloride (96-109) mmol/L Carbon Dioxide (21.6-31.8) mmol/L BUN (7-17) mg/dL Creatinine (0.6-1.5) mg/dL BUN/Creatinine Ratio (12.00-20.00) Ratio Glucose (70-110) mg/dL POC Glucose (mg/dL) 163 H 148 H (70-110) mg/dL Calcium (8.4-10.2) mg/dL AST (14-36) U/L ALT (4-34) U/L Total Protein (6.3-8.2) g/dL Albumin (3.5-5.0) g/dL 08/13/23 08/13/23 08/13/23 Range/Units 13:27 13:39 18:03 WBC (3.8-10.6) k/uL Hct (34.0-46.0) % MCV (80.0-100.0) fL Neutrophils # (1.3-7.7) k/uL Lymphocytes # (1.0-4.8) k/uL ABG pH (7.35-7.45) ABG pCO2 76 H* (35-45) mmHg ABG pO2 >400 H (83-108) mmHg ABG HCO3 42 H* (21-25) mmol/L ABG Total CO2 44 H (19-24) mmol/L ABG O2 Saturation 99.7 H (94-97) % VBG pH (7.31-7.41) VBG pCO2 (37-51) mmHg VBG HCO3 (24-28) mmol/L Sodium 135 L (137-145) mmol/L Chloride 95 L (96-109) mmol/L Carbon Dioxide 39 H (21.6-31.8) mmol/L BUN 31 H (7-17) mg/dL Creatinine 0.39 L (0.6-1.5) mg/dL BUN/Creatinine Ratio (12.00-20.00) Ratio Glucose 182 H (70-110) mg/dL POC Glucose (mg/dL) 161 H (70-110) mg/dL Calcium 8.2 L (8.4-10.2) mg/dL AST 52 H (14-36) U/L ALT 80 H (4-34) U/L Total Protein 5.8 L (6.3-8.2) g/dL Albumin 3.4 L (3.5-5.0) g/dL 08/13/23 08/14/23 08/14/23 Range/Units 23:37 04:33 04:33 WBC (3.8-10.6) k/uL Hct (34.0-46.0) % MCV 103.7 H (80.0-100.0) fL Neutrophils # 8.2 H (1.3-7.7) k/uL Lymphocytes # 0.6 L (1.0-4.8) k/uL ABG pH (7.35-7.45) ABG pCO2 (35-45) mmHg ABG pO2 (83-108) mmHg ABG HCO3 (21-25) mmol/L ABG Total CO2 (19-24) mmol/L ABG O2 Saturation (94-97) % VBG pH (7.31-7.41) VBG pCO2 (37-51) mmHg VBG HCO3 (24-28) mmol/L Sodium 135 L (137-145) mmol/L Chloride (96-109) mmol/L Carbon Dioxide 37 H (21.6-31.8) mmol/L BUN 29 H (7-17) mg/dL Creatinine 0.43 L (0.6-1.5) mg/dL BUN/Creatinine Ratio (12.00-20.00) Ratio Glucose 151 H (70-110) mg/dL POC Glucose (mg/dL) 162 H (70-110) mg/dL Calcium 8.3 L (8.4-10.2) mg/dL AST (14-36) U/L ALT (4-34) U/L Total Protein (6.3-8.2) g/dL Albumin (3.5-5.0) g/dL 08/14/23 08/14/23 Range/Units 05:48 06:01 WBC (3.8-10.6) k/uL Hct (34.0-46.0) % MCV (80.0-100.0) fL Neutrophils # (1.3-7.7) k/uL Lymphocytes # (1.0-4.8) k/uL ABG pH 7.47 H (7.35-7.45) ABG pCO2 51 H (35-45) mmHg ABG pO2 59 L* (83-108) mmHg ABG HCO3 37 H (21-25) mmol/L ABG Total CO2 38 H (19-24) mmol/L ABG O2 Saturation (94-97) % VBG pH (7.31-7.41) VBG pCO2 (37-51) mmHg VBG HCO3 (24-28) mmol/L Sodium (137-145) mmol/L Chloride (96-109) mmol/L Carbon Dioxide (21.6-31.8) mmol/L BUN (7-17) mg/dL Creatinine (0.6-1.5) mg/dL BUN/Creatinine Ratio (12.00-20.00) Ratio Glucose (70-110) mg/dL POC Glucose (mg/dL) 167 H (70-110) mg/dL Calcium (8.4-10.2) mg/dL AST (14-36) U/L ALT (4-34) U/L Total Protein (6.3-8.2) g/dL Albumin (3.5-5.0) g/dL Microbiology - Last 24 Hours (Table) 08/10/23 13:19 Blood Culture - Preliminary Blood
[2023-08-14] MEDS: CISATRACURIUM 200 MG in SODIUM CHLORIDE 0.9% 180 ML IV SCH (15:19)
[2023-08-14 16:15] LABS: Appearance,BF Cloudy (Clear); RBC, Body Fluid 250 /UL (0-2000)
[2023-08-14] MEDS: CEFEPIME 2 GM in SODIUM CHLORIDE 0.9% 100 ML IVPB SCH (16:24)
[2023-08-14 17:14] LABS: Nucleated Cells, Body Fluid 14600 /UL
[2023-08-14 18:06] LABS: Glucose,Whole Blood 136 mg/dL (70-110)
[2023-08-14] MEDS: BUDESONIDE 1 MG/2 ML NEBU INHALATION SCH (19:33)
[2023-08-14] MEDS: FORMOTEROL FUMARATE 20 MCG/2 ML NEBU INHALATION SCH (19:33)
--- NOTE | 2023-08-14 21:20 | P.CONS ---
History of Present Illness - Reason for Consult Consult date: 08/14/23 HIV, respiratory failure Requesting physician: Pauline Green - Chief Complaint Increasing shortness of breath x few days - History of Present Illness Patient is a 52-year-old female with a past medical history significant for HIV on Biktarvy, also with a history of COPD presenting to the hospital 4 days ago for evaluation of increasing shortness of breath that ap parently has been getting worse for 3 days before presentation to the hospital patient on admission to the hospital was afebrile and no fever have been recorded subsequently, patient did have a normal white count elevation 4.7 white count was up to 15.7 yesterday however is down to 9.2 today kidney function has been normal liver enzymes mildly elevated, patient did have a negative influenza RSV and COVID testing, patient did have a chest x-ray on admission chronic changes without evidence for acute pulmonary process patient has been evaluated pulmonary service and the patient has been treated with the bronchodilators steroids and Levaquin patient did have worsening of respiratory status requiring intubation and admission to the ICU infectious disease was consulted this morning for further management of her antibiotic therapy at the time my evaluation the patient is intubated on the vent FiO2 is down to 45% patient is currently not requiring any pressor support, the local history of any nausea or vomiting led to her worsening respiratory status and intubation and no diarrhea has been reported history remains to be admitted. The patient intubated on the vent Review of Systems Positive points has been mentioned in HPI complete review could not be obtained because patient intubated on the vent Past Medical History Past Medical History: Asthma, Blood Disorder, COPD Additional Past Medical History / Comment(s): hiv History of Any Multi-Drug Resistant Organisms: None Reported Past Surgical History: No Surgical Hx Reported Past Psychological History: Depression Smoking Status: Current every day smoker Past Alcohol Use History: None Reported, Occasional Past Drug Use History: None Reported Medications and Allergies Home Medications Medication Instructions Recorded Confirmed Type Albuterol Sulfate [Albuterol 2 puff PO RT-Q4H PRN 03/14/22 08/10/23 History Sulfate Hfa] Bictegrav/Emtricit/Tenofov Ala 1 tab PO DAILY 08/10/23 08/10/23 History [Biktarvy 50-200-25 mg Tablet] Fluticasone/Umeclidin/Vilanter 1 puff INHALATION RT-DAILY 08/10/23 08/10/23 History [Trelegy Ellipta 200-62.5-25] Ipratropium-Albuterol Nebulize 3 ml INHALATION RT-Q6H PRN 08/10/23 08/10/23 H istory [Duoneb 0.5 mg-3 mg/3 ml Soln] Sertraline [Zoloft] 50 mg PO DAILY 08/10/23 08/10/23 History traZODone HCL [Desyrel] 100 mg PO HS 08/10/23 08/10/23 History Sulfamethox-Tmp 800-160Mg [Bactrim 1 tab PO DAILY #30 tab 09/04/23 Rx DS 800-160 mg] Bictegrav/Emtricit/Tenofov Ala 1 each PO DAILY 6 Days #30 tab 09/11/23 Rx [Biktarvy 50-200-25 mg Tablet] Docusate Oral Soln [Colace Oral 100 mg PO DAILY PRN ml 09/12/23 Rx Soln] Enoxaparin [Lovenox] 40 mg SQ DAILY each 09/12/23 Rx INSULIN ASPART (NovoLOG) [NovoLOG 0 unit SQ Q6HR each 09/12/23 Rx (formulary)] Lactulose [Cephulac] 20 gm PO BID PRN ml 09/12/23 Rx Magnesium Hydroxide [Milk of 2,400 mg PO BID PRN ml 09/12/23 Rx Magnesia] Metoprolol Tartrate [Lopressor] 12.5 mg PO BID tab 09/12/23 Rx Pantoprazole [Protonix] 40 mg PEG/G-TUBE DAILY #30 tab 09/12/23 Rx busPIRone HCl [Buspar] 30 mg PO BID tab 09/12/23 Rx predniSONE 10 mg PO DAILY tab 09/12/23 Rx Allergies Allergy/AdvReac Type Severity Reaction Status Date / Time Penicillins Allergy Anaphylaxis Verified 08/10/23 14:58 Physical Exam Vitals: Vital Signs Temp Pulse Resp BP Pulse Ox FiO2 08/14/23 08:05 45 08/14/23 08:02 104 H 08/14/23 07:50 105 H 08/14/23 06:10 45 08/14/23 06:00 110 H 16 138/83 98 45 08/14/23 05:00 95 16 120/77 98 40 04/15/24 04:25 92 08/14/23 04:18 40 08/14/23 04:16 84 08/14/23 04:00 92 16 125/80 98 40 08/14/23 03:00 92 16 135/89 100 40 08/14/23 02:00 94 16 166/104 100 40 08/14/23 01:00 104 H 16 124/77 100 40 08/14/23 00:00 98 F 106 H 16 139/90 100 40 08/13/23 23:48 40 08/13/23 23:37 99 08/13/23 23:31 40 08/13/23 23:30 98 08/13/23 23:00 88 16 149/88 100 40 08/13/23 22:00 99 16 123/88 100 40 08/13/23 21:00 106 H 16 104/76 99 40 08/13/23 20:24 112 H 08/13/23 20:19 40 08/13/23 20:18 102 H 08/13/23 20:00 99 F 105 H 16 106/81 100 40 08/13/23 19:00 105 H 16 97/74 93 L 40 08/13/23 18:00 108 H 16 130/89 97 40 08/13/23 17:00 99 16 129/89 100 40 08/13/23 16:02 90 08/13/23 16:00 97.9 F 87 16 111/74 100 40 08/13/23 15:52 88 08/13/23 15:00 89 16 108/76 98 40 08/13/23 14:00 93 19 136/93 100 40 08/13/23 13:57 40 08/13/23 13:38 100 08/13/23 13:00 117 H 16 142/91 100 100 08/13/23 12:48 100 08/13/23 12:00 97.6 F 129 H 17 142/91 99 60 08/13/23 11:38 93 08/13/23 11:37 60 08/13/23 11:28 90 08/13/23 11:27 92 24 133/86 99 08/13/23 11:11 60 Intake and Output 08/13/23 08/14/23 08/14/23 22:59 06:59 14:59 Intake Total 1927.780 724 94.937 Output Total 265 220 Balance 1662.780 504 94.937 Intake: IV 1702 624 Normal Saline Pressure 27 24 Bag Sodium Chloride 0.9% 1, 675 600 000 ml @ 75 mls/hr IV . [id number] [facility] Rx#:[id number] Sodium Chloride 0.9% 1, 1000 000 ml @ 999 mls/hr IV . Q1H1M [facility] Rx#:[id number] Intake, IV Titration 165.780 100 94.937 Amount Cisatracurium 200 mg In 3.864 Sodium Chloride 0.9% 180 ml @ 1 MCG/KG/MIN 3.312 mls/hr IV .Q24H [facility] Rx#: [id number] propofoL 1,000 mg In 161.916 100 94.937 Empty Bag 1 bag @ 15 MCG/ KG/MIN 5.715 mls/hr IV . [id number] [facility] Rx#:[id number] Other 60 Output: Urine 265 220 Other: Voiding Method Indwelling Catheter Indwelling Catheter Weight 56.2 kg ABP, PAP, CO, CI - Last 8 Hours Arterial Blood Pressure 109/74 Arterial Blood Pressure 115/70 Arterial Blood Pressure 100/60 GENERAL DESCRIPTION: Middle-aged female intubated on the [facility] HEENT: Shows Pallor , no scleral icterus. Oral mucous membrane is dry. NECK: Trachea central, no thyromegaly. LUNGS: Unlabored breathing. Decreased breath sounds at the base HEART: S1, S2, regular rate and rhythm. No loud murmur ABDOMEN: Soft, no tenderness , guarding or rigidity, no organomegaly EXTREMITIES: No edema of feet. SKIN: No rash, no masses palpable. NEUROLOGICAL: The patient is sedated on the vent Results CBC & Chem 7: 09/12/23 06:21 09/12/23 06:21 Labs: Abnormal Lab Results - Last 24 Hours (Table) 08/13/23 08/13/23 08/13/23 Range/Units 08:53 11:07 11:26 MCV (80.0-100.0) fL Neutrophils # (1.3-7.7) k/uL Lymphocytes # (1.0-4.8) k/uL ABG pH 7.22 L (7.35-7.45) ABG pCO2 109 H* (35-45) mmHg ABG pO2 205 H (83-108) mmHg ABG HCO3 45 H* (21-25) mmol/L ABG Total CO2 48 H (19-24) mmol/L ABG O2 Saturation 99.1 H (94-97) % Sodium (137-145) mmol/L Chloride 94 L (96-109) mmol/L Carbon Dioxide 38.2 H (21.6-31.8) mmol/L BUN (7-17) mg/dL Creatinine 0.5 L (0.6-1.5) mg/dL BUN/Creatinine Ratio 46.00 H (12.00-20.00) Ratio Glucose 168 H (70-110) mg/dL POC Glucose (mg/dL) 163 H (70-110) mg/dL Calcium (8.4-10.2) mg/dL AST (14-36) U/L ALT (4-34) U/L Total Protein (6.3-8.2) g/dL Albumin (3.5-5.0) g/dL 08/13/23 08/13/23 08/13/23 Range/Units 11:28 13:27 13:39 MCV (80.0-100.0) fL Neutrophils # (1.3-7.7) k/uL Lymphocytes # (1.0-4.8) k/uL ABG pH (7.35-7.45) ABG pCO2 76 H* (35-45) mmHg ABG pO2 >400 H (83-108) mmHg ABG HCO3 42 H* (21-25) mmol/L ABG Total CO2 44 H (19-24) mmol/L ABG O2 Saturation 99.7 H (94-97) % Sodium 135 L (137-145) mmol/L Chloride 95 L (96-109) mmol/L Carbon Dioxide 39 H (21.6-31.8) mmol/L BUN 31 H (7-17) mg/dL Creatinine 0.39 L (0.6-1.5) mg/dL BUN/Creatinine Ratio (12.00-20.00) Ratio Glucose 182 H (70-110) mg/dL POC Glucose (mg/dL) 148 H (70-110) mg/dL Calcium 8.2 L (8.4-10.2) mg/dL AST 52 H (14-36) U/L ALT 80 H (4-34) U/L Total Protein 5.8 L (6.3-8.2) g/dL Albumin 3.4 L (3.5-5.0) g/dL 08/13/23 08/13/23 08/14/23 Range/Units 18:03 23:37 04:33 MCV 103.7 H (80.0-100.0) fL Neutrophils # 8.2 H (1.3-7.7) k/uL Lymphocytes # 0.6 L (1.0-4.8) k/uL ABG pH (7.35-7.45) ABG pCO2 (35-45) mmHg ABG pO2 (83-108) mmHg ABG HCO3 (21-25) mmol/L ABG Total CO2 (19-24) mmol/L ABG O2 Saturation (94-97) % Sodium (137-145) mmol/L Chloride (96-109) mmol/L Carbon Dioxide (21.6-31.8) mmol/L BUN (7-17) mg/dL Creatinine (0.6-1.5) mg/dL BUN/Creatinine Ratio (12.00-20.00) Ratio Glucose (70-110) mg/dL POC Glucose (mg/dL) 161 H 162 H (70-110) mg/dL Calcium (8.4-10.2) mg/dL AST (14-36) U/L ALT (4-34) U/L Total Protein (6.3-8.2) g/dL Albumin (3.5-5.0) g/dL 08/14/23 08/14/23 08/14/23 Range/Units 04:33 05:48 06:01 MCV (80.0-100.0) fL Neutrophils # (1.3-7.7) k/uL Lymphocytes # (1.0-4.8) k/uL ABG pH 7.47 H (7.35-7.45) ABG pCO2 51 H (35-45) mmHg ABG pO2 59 L* (83-108) mmHg ABG HCO3 37 H (21-25) mmol/L ABG Total CO2 38 H (19-24) mmol/L ABG O2 Saturation (94-97) % Sodium 135 L (137-145) mmol/L Chloride (96-109) mmol/L Carbon Dioxide 37 H (21.6-31.8) mmol/L BUN 29 H (7-17) mg/dL Creatinine 0.43 L (0.6-1.5) mg/dL BUN/Creatinine Ratio (12.00-20.00) Ratio Glucose 151 H (70-110) mg/dL POC Glucose (mg/dL) 167 H (70-110) mg/dL Calcium 8.3 L (8.4-10.2) mg/dL AST (14-36) U/L ALT (4-34) U/L Total Protein (6.3-8.2) g/dL Albumin (3.5-5.0) g/dL Microbiology - Last 24 Hours (Table) 08/10/23 13:19 Blood Culture - Preliminary Blood Assessment and Plan (1) Acute respiratory failure Status: Acute Code(s): J96.00 - ACUTE RESPIRATORY FAILURE, UNSP W HYPOXIA OR HYPERCAPNIA SNOMED Code(s): 99704806 (2) HIV disease Status: Acute Code(s): B20 - HUMAN IMMUNODEFICIENCY VIRUS [HIV] DISEASE SNOMED Code(s): 31577240 Plan: 1patient presented to hospital with increasing shortness of breath which is likely multifactorial in this patient who did have a history of COPD and likely COPD is a patient with a tracheobronchitis underlying pneumonia less likely but not adequately especially patient with no fever or any elevated white count except 1 day 2-patient may benefit from CT angiogram of the chest diminished evidence of any PE and no significant evidence of any acute infiltrate as not has been seen on the chest x-ray 3-patient did have a penicillin allergy that will limit the number of antibiotics safe to use 4-patient empirically add cefepime and continue with the Levaquin We will follow on clinical condition and cultures to further adjust medication if needed Thank you for this consultation we will follow the patient along with you Dictation was produced using [employer] dictation software. please excuse any grammatical, word or spelling errors. Time with Patient: Greater than 30
[2023-08-15 00:01] LABS: Glucose,Whole Blood 162 mg/dL (70-110)
--- NOTE | 2023-08-15 00:07 | CT ---
EXAM: CT Angiography Chest With Intravenous Contrast CLINICAL HISTORY: ITS.REASON CT Reason: PE/Pneumonia TECHNIQUE: Axial computed tomographic angiography images of the chest with intravenous contrast. CTDI is 34.1 mGy and DLP is 391.1 mGy-cm. This CT exam was performed using one or more of the following dose reduction techniques: automated exposure control, adjustment of the mA and/or kV according to patient size, and/or use of iterative reconstruction technique. MIP reconstructed images were created and reviewed. COMPARISON: No relevant prior studies available. FINDINGS: Pulmonary arteries: Unremarkable. No pulmonary embolism. Aorta: No acute findings. No thoracic aortic aneurysm. Lungs: Spiculated nodule at the LEFT lung apex measures 9 mm. PET/CT scan should be considered to exclude lung cancer. Moderate-severe centrilobular emphysema. No consolidation. Pleural space: Unremarkable. No significant effusion. No pneumothorax. Heart: Unremarkable. No cardiomegaly. No significant pericardial effusion. No evidence of RV dysfunction. Bones/joints: No acute fracture. No dislocation. Soft tissues: Unremarkable. Lymph nodes: Unremarkable. No enlarged lymph nodes. Liver: Hepatic steatosis. Tubes, lines and devices: Endotracheal tube terminates in the trachea. Feeding tube terminates in the stomach. LEFT PICC line terminates in the SVC. IMPRESSION: 1. Spiculated nodule at the LEFT lung apex measures 9 mm. PET/CT scan should be considered to exclude lung cancer. 2. Endotracheal tube terminates in the trachea. 3. Moderate-severe centrilobular emphysema.
[2023-08-15 05:28] LABS: Glucose,Whole Blood 171 mg/dL (70-110)
[2023-08-15 05:47] LABS: Basophils % (A) 0 %; Eosinophils % (A) 0 %; HCT 34.3 % (34.0-46.0); HGB 10.3 gm/dL (11.4-16.0); Hypochromasia Moderate; Lymphocytes # (A) 0.2 k/uL (1.0-4.8); Lymphocytes % (A) 6 %; MCHC 30.2 g/dL (31.0-37.0); MCV 105.9 fL (80.0-100.0); Macrocytosis Moderate; Mean Platelet Volume 7.4; Monocytes # (A) 0.2 k/uL (0-1.0); Monocytes % (A) 5 %; Neutrophils # (A) 3.7 k/uL (1.3-7.7); Neutrophils % (A) 88 %; Platelet Count 187 k/uL (150-450); RBC 3.24 m/uL (3.80-5.40); RDW 13.1 % (11.5-15.5); WBC 4.2 k/uL (3.8-10.6)
[2023-08-15 05:47] LABS: ABG HCO3 37 mmol/L (21-25); ABG PH 7.29 (7.35-7.45); ABG PO2 165 mmHg (83-108); ABG TCO2 39 mmol/L (19-24); Allen Test Performed? Yes
[2023-08-15 05:49] LABS: ABG PCO2 76 mmHg (35-45)
[2023-08-15 05:58] LABS: African American GFR (CKD) >90 (>60 ml/min/1.73 sqM); Anion Gap -5 mmol/L; Blood Urea Nitrogen 25 mg/dL (7-17); C Reactive Protein 0.6 mg/dL (<1.0); Calcium 8.4 mg/dL (8.4-10.2); Carbon Dioxide 39 mmol/L (22-30); Chloride 103 mmol/L (98-107); Glucose 174 mg/dL (74-99); Non-African American GFR(CKD) >90 (>60 ml/min/1.73 sqM); Potassium 4.3 mmol/L (3.5-5.1); Sodium 137 mmol/L (137-145)
--- NOTE | 2023-08-15 09:25 | XR ---
EXAMINATION TYPE: XR chest 1V portable DATE OF EXAM: 08/15/2023 Comparison: 08/14/2023 Clinical History: 52-year-old female Tube placement Findings: ET and NG tube are satisfactory. Left subclavian CVC tip lower SVC. Heart normal size. Aorta and pulm onary vasculature within normal limits. Hyperinflation. No consolidation or pleural effusion. Impression: Hyperinflation may relate to a depth of inspiration or underlying emphysema. No acute process seen.
[2023-08-15] MEDS: fentaNYL (PF). 1,000 MCG in SODIUM CHLORIDE 0.9% 80 ML IV SCH (09:40)
[2023-08-15 11:23] LABS: Glucose,Whole Blood 173 mg/dL (70-110)
--- NOTE | 2023-08-15 12:04 | P.PN ---
Subjective Progress Note Date: 08/15/23 Principal diagnosis: Acute hypoxic respiratory failure secondary to acute exacerbation of COPD This is a 52-year-old female patient with known history of COPD. The patient is maintained on Trelegy Ellipta on outpatient basis and she also has a DuoNeb nebulized treatment to be used on an as-needed basis. She is known to have HIV and currently she is on Biktarvy followed up by Dr. Salguero on outpatient basis regarding her HIV. She is not aware of her recent CD4 counts and viral loads. She has been having issues with increased respiratory distress and [employer] exacerbation for the past 2 to 3 weeks. She received several rounds of antibiotics and steroids for our office for [employer] exacerbation she did not encounter any significant improvement. She ultimately came into the hospital for increased shortness of breath. She was briefly placed on BiPAP and the patient is currently on oxygen at 6 L/min nasal cannula with a pulse ox of 98%. She is quite short of breath even at rest. Not using accessory muscles of breathing. Sodium levels at 126, potassium is 4.3, bicarb is 29, BUN is at 8 with a creatinine of 0.39. WBC count of 4.7 with a hemoglobin of 14.5 and a platelet count of 241. The viral screen came back negative. The chest x-ray shows no acute abnormalities. There is hyperinflation consistent with COPD. Scattered senescent parenchymal changes are seen bilaterally. Findings are essentially consistent with COPD. She was started on bronchodilators with D uoNeb updrafts. She is also on IV Solu-Medrol. She was started on Zithromax as an empiric antibiotic coverage and she is also normal saline at rate of 75 cc an hour. No frequent hospital admissions for COPD exacerbation. Her last admission to the hospital was back in 2021 essentially same presentation. She has been trying to quit smoking and she has not smoked for the past several months. She has been smoking since the age of 11 and she carries more than [id number] smoking history. On 08/11/2023, the patient is being seen for a follow-up. The patient was hospitalized for an acute Exacerbation the patient is feeling better on today's evaluation this bronchospastic and wheezy. She is known to have HIV. Viral constant CD4 counts are still pending for now. She is currently on Zithromax, IV Solu-Medrol, DuoNeb nebulized treatments [id number]. She has failed outpatient treatment for that reason the patient was hospitalized. No fever. No altered mentation. No other new complaints otherwise for now. Oxygenation is stable on 3 L O2 nasal cannula with a pulse ox of 98%. On today's evaluation of 08/12/2023, the patient reports limited improvement since yesterday. Still bronchospastic and wheezy and continues to be short of breath. Maintained on Symbicort and DuoNeb updrafts and maintained on IV Solu- Medrol 60 mg every 6 hours. She remains on empiric antibiotic coverage with IV Zithromax. No nausea vomiting or diarrhea. BUN is at 19 with a creatinine of 0.5 and a sodium levels at 138. No other significant events otherwise for now. The patient has a impaired CD4 count of 81. As such, the patient is high immunosuppressed and she may be potentially at risk of opportunistic infection. Patient continue antiretroviral treatment. Obtain a follow-up chest x-ray tomorrow. On 08/13/2023, the patient is quite lethargic on a BiPAP. Events from yesterday was noted. The patient became progressively more short of breath. She became restless, anxious, along with increased agitation and respiratory distress. The patient accordingly was placed on a BiPAP at a pressure of 12 over 5 cm of water and currently she is on #2 of 60%. She is generating a tidal volume of around about 400 with a minute ventilation of 7.4. Respirate is currently at 18. She is actively bronchospastic and wheezy. Blood gases that was done before the BiPAP utilization showed a pH of 7.24 with a pCO2 of 98 and pO2 of 69. Rest of the labs from today are still pending. A repeat chest x-ray was done this morning and it shows no evidence of any acute cardiopulmonary process. The patient remains on bronchodilators. The patient remains on IV Solu-Medrol 60 mg every 6 hours. As mentioned earlier, her CD4 count was low at 81. Nevertheless, no indication for any opportunistic infections at this point in time. Her temperature is low and the patient is afebrile and hemodynamically stable. She did receive Ativan 1 mg and she seems to be much more comfortable and synchronous with the BiPAP treatment. Will transfer the patient to the intensive care unit. Will repeat her blood gas. Use Precedex if needed. Patient was placed today on 08/14/2023, patient was admitted few days ago, however yesterday patient was intubated and required mechanical ventilation. Patient is now on assist-control rate of 16 tidal volume 350 FiO2 45% and PEEP of 5 ABG on 40% and rate of 16 showed a pO2 of 59 pCO2 51 pH of 7.47 hence I increased the FiO2 to 45% and cut down the rate to 14. Patient will be allowed to have more permissive hypercapnia patient is still requiring significant amount of sedation including propofol at 50 mcg/kg/min Nimbex at 2 mcg/kg/min she is also on Dilaudid [id number], on Lovenox enteral feeding, and IV fluid at 0.9 normal saline at 75 cc/h. Patient is not requiring any pressors or any inotropes. Patient is immunocompromise, she does have history of HIV, and she has very low CD4 count of 81. She is definitely high risk for opportunistic infections, infectious disease was consulted. Considering her gases and considering her physical exam findings, patient is not quite ready for weaning, and I have no plans to wean and extubate today. I will keep the patient presently on Nimbex, she got intubated last night, and will continue broncho dilators, continue steroids, and continue enteral feeding/nutritional support. Chest x-ray this morning showed emphysematous changes, no acute pulmonary process. CT of the brain showed a focal area of hypoattenuation involving the inferior right temporal lobe.May represent an infarct, possibly chronic. BBC count today is 9.2 hemoglobin is 12.5 basic metabolic profile is normal bicarb is 37, renal profile is normal. Patient was reevaluated today on 08/15/2023, remains intubated and mechanically ventilated, remains in the ICU, she is on assist-control rate of 14 tidal volume 350 FiO2 45% PEEP of 5 ABG showed a pO2 of 165 pCO2 76 pH of 7.29. ABG showed a pO2 of 165 pCO2 76 pH of 7.29, hence FiO2 was cut down to 35% and rate increased up to 18. Remains on propofol at 50 mcg/kg/min, Nimbex at 2 mcg/kg/min, she is also on normal saline at 75 cc/h and receiving vital AF . Today my plan is to discontinue Nimbex, and likely start the patient on fentanyl at 0.5 mcg/kg/h. Antibiotics beltran the patient remains on cefepime and Levaquin. For some reason the infectious disease physician ordered a CT angiogram of the chest yesterday, although her presentation was clearly a presentation of COPD and the presentation clearly explains her clinical picture, CT angiogram of course showed no evidence of pulmonary embolism, it did show a 9 mm nodule which is something needs to be followed on outpatient basis, and possibly repeat CT of the chest in 6 months. Or at least try to retrieve any old scans on this patient in the past and see if this nodule was present before nonetheless the p atient will need a low-dose CT of the chest on annual basis anyway. Labs today showed WBC count of 4.2 hemoglobin 10.3, basic metabolic profile is normal renal profile is normal. Procalcitonin is less than 0.02 patient was seen by infectious disease and he kept the patient empirically on Levaquin and cefepime Objective - Vital Signs Vital signs: Vital Signs Temp 97.9 F 08/15/23 08:00 Pulse 86 08/15/23 11:30 Resp 18 08/15/23 11:00 BP 117/77 08/15/23 09:00 Pulse Ox 100 08/15/23 11:00 FiO2 35 08/15/23 11:24 Intake & Output 08/14/23 08/15/23 08/15/23 18:59 06:59 18:59 Intake Total 7489.739 7649.27 628.79 Output Total 335 415 180 Balance 1273.491 889.27 448.79 Weight 56.2 kg 60.1 kg Intake: IV 1258 936 390 Azithromycin 500 mg In 250 Sodium Chloride 0.9% 250 ml @ 250 mls/hr IVPB DAILY [facility] Rx#:[id number] Levofloxacin 750Mg-D5w 150 75 Pmx 750 mg In Dextrose/ Water 1 150ml.bag @ 100 mls/hr IVPB Q24H [facility] Rx#: [id number] Normal Saline Pressure 33 36 15 Bag Sodium Chloride 0.9% 1, 825 825 375 000 ml @ 75 mls/hr IV . [id number] [facility] Rx#:[id number] Intake, IV Titration 350.491 188.27 218.79 Amount Cefepime 2 gm In Sodium 100 Chloride 0.9% 100 ml @ 25 mls/hr IVPB Q8HR [facility] Rx# :[id number] Cisatracurium 200 mg In 155.554 118.79 Sodium Chloride 0.9% 180 ml @ 1 MCG/KG/MIN 3.312 mls/hr IV .Q24H [facility] Rx#: [id number] propofoL 1,000 mg In 194.937 188.27 Empty Bag 1 bag @ 15 MCG/ KG/MIN 5.715 mls/hr IV . [id number] [facility] Rx#:[id number] Tube Feeding 180 20 Output: Urine 335 415 180 Other: Voiding Method Indwelling Catheter Indwelling Catheter Indwelling Catheter ABP, PAP, CO, CI - Last Documented Arterial Blood Pressure 137/65 - Exam General: Revealed 52-year-old female intubated mechanically ventilated sedated and paralyzed, in no distress Skin: Skin is warm and dry and no rashes or lesions are noted. Eye: Pupils are equal, round and reactive to light, extra-ocular movements are intact; there is normal conjunctiva bilaterally. Ears, nose, mouth and throat: There are moist mucous membranes and no oral lesions. Endotracheal tube and orogastric tubes are intact. Neck: The neck is supple, there is no tenderness or JVD. Cardiovascular: Normal S1-S2, no S3 gallop. No murmur. Respiratory: Extremely diminished breath sound bilaterally no rhonchi no wheezes Gastrointestinal: Soft, non-distended, non-tender abdomen without masses or organomegaly noted. There is no rebound or guarding present. Bowel sounds are unremarkable. Back: There is no tenderness to palpation in the midline. There is no obvious deformity. Musculoskeletal: Deformities and no limitation range of motion Neurological: Could not not assess patient is sedated and paralyzed Psychiatric: Could not assess patient is sedated and paralyzed - Labs CBC & Chem 7: 08/15/23 05:27 08/15/23 05:27 Labs: Abnormal Lab Results - Last 24 Hours (Table) 08/13/23 08/14/23 08/14/23 Range/Units 13:30 18:04 23:59 RBC (3.80-5.40) m/uL Hgb (11.4-16.0) gm/dL MCV (80.0-100.0) fL MCHC (31.0-37.0) g/dL Lymphocytes # (1.0-4.8) k/uL ABG pH (7.35-7.45) ABG pCO2 (35-45) mmHg ABG pO2 (83-108) mmHg ABG HCO3 (21-25) mmol/L ABG Total CO2 (19-24) mmol/L ABG O2 Saturation (94-97) % Carbon Dioxide (22-30) mmol/L BUN (7-17) mg/dL Creatinine (0.52-1.04) mg/dL Glucose (74-99) mg/dL POC Glucose (mg/dL) 136 H 162 H (70-110) mg/dL Fluid Appearance Cloudy A (Clear) 08/15/23 08/15/23 08/15/23 Range/Units 05:22 05:27 05:27 RBC 3.24 L (3.80-5.40) m/uL Hgb 10.3 L (11.4-16.0) gm/dL MCV 105.9 H (80.0-100.0) fL MCHC 30.2 L (31.0-37.0) g/dL Lymphocytes # 0.2 L (1.0-4.8) k/uL ABG pH (7.35-7.45) ABG pCO2 (35-45) mmHg ABG pO2 (83-108) mmHg ABG HCO3 (21-25) mmol/L ABG Total CO2 (19-24) mmol/L ABG O2 Saturation (94-97) % Carbon Dioxide 39 H (22-30) mmol/L BUN 25 H (7-17) mg/dL Creatinine 0.47 L (0.52-1.04) mg/dL Glucose 174 H (74-99) mg/dL POC Glucose (mg/dL) 171 H (70-110) mg/dL Fluid Appearance (Clear) 08/15/23 08/15/23 Range/Units 05:44 11:21 RBC (3.80-5.40) m/uL Hgb (11.4-16.0) gm/dL MCV (80.0-100.0) fL MCHC (31.0-37.0) g/dL Lymphocytes # (1.0-4.8) k/uL ABG pH 7.29 L (7.35-7.45) ABG pCO2 76 H* (35-45) mmHg ABG pO2 165 H (83-108) mmHg ABG HCO3 37 H (21-25) mmol/L ABG Total CO2 39 H (19-24) mmol/L ABG O2 Saturation 98.0 H (94-97) % Carbon Dioxide (22-30) mmol/L BUN (7-17) mg/dL Creatinine (0.52-1.04) mg/dL Glucose (74-99) mg/dL POC Glucose (mg/dL) 173 H (70-110) mg/dL Fluid Appearance (Clear) Microbiology - Last 24 Hours (Table) 08/13/23 13:30 Gram Stain - Preliminary Bronchial Washings - Random Bronchial Washings Culture - Preliminary Rimma albicans Assessment and Plan Assessment: Impression: Acute hypoxic respiratory failure secondary to acute exacerbation of COPD requiring intubation mechanical ventilation on 08/13/2023. Advanced COPD Incidental finding of a left upper lobe 9 mm nodule seen on CT of the chest, needs outpatient follow History of HIV, currently on biktarvy, patient has very low CD4 count, she is prone to opportunistic infections, cultures have been negative from BAL, patient is empirically on cefepime and Levaquin Status post bronchoscopy and BAL 08/12 Recommendation: Discontinue Nimbex today. Vent changes were made today based on ABG. Antibiotics as per ID were noted. Continue ventilatory support Continue GI and DVT prophylaxis Continue nutritional support/enteral feeding Continue bronchodilators and steroids including Solu-Medrol 60 mg IV push every 6 hours Chest x-ray was reviewed Labs were all reviewed Remains critically ill, will likely transition in the next to fentanyl. Patient is not ready for any weaning based on the ABG findings today Critical care time is over 30 minutes not including the time for procedures Will continue tofollow Time with Patient: Greater than 30
[2023-08-15] MEDS: METOCLOPRAMIDE 5 MG/ML 2 ML VIAL IVP SCH (12:43)
--- NOTE | 2023-08-15 12:45 | P.PN ---
Subjective Progress Note Date: 08/15/23 52-year-old female presenting to the emergency department with difficulty breathing. Symptoms have been present for the past 3 days. Occasional cough, nonproductive. No fever or recent upper respiratory infection. No calf pain or leg swelling. Patient does have history of similar symptoms previously a ssociated with COPD. Patient is a former smoker, patient has more than 40 pack years history of smoking. Sodium levels at 126, potassium is 4.3, bicarb is 29, BUN is at 8 with a creatinine of 0.39. WBC count of 4.7 with a hemoglobin of 14.5 and a platelet count of 241. The viral screen came back negative. The chest x-ray shows no acute abnormalities. There is hyperinflation consistent with COPD. Scattered senescent parenchymal changes are seen bilaterally. Findings are essentially consistent with COPD. She was briefly placed on BiPAP and the patient is currently on oxygen at 6 L/min nasal cannula with a pulse ox of 98%. She is quite short of breath even at rest. Not using accessory muscles of breathing. She was started on bronchodilators with DuWoo salgadorafts. She is also on IV Solu-Medrol. She was started on Zithromax as an empiric antibiotic coverage and she is also normal saline at rate of 75 cc an hour. 08/13/2023 Patient is seen and evaluated in room at bedside; has been transferred to selective care unit; patient was getting short of breath and anxious with increasing agitation; patient was transferred to stepdown unit and placed on BiPAP --Patient continuing to be more lethargic this morning; evaluated by critical care service -- Chest x-ray completed this morning is negative for any acute process -Patient is currently on IV Solu-Medrol, bronchodilator nebulizer treatments and antibiotic therapy -- Patient is breathing comfortably with BiPAP; critical care planning to transfer patient to ICU for close monitoring with further recommendations once repeat blood gases are available 08/13. Patient seen and examined. Continues to be intubated. Patient history of HIV. Currently on propofol. Getting tube feeding as well 08/14. Patient seen and examined. Continues to be intubated. Blood work this morning showed WBC 4.2, hemoglobin 10.3, platelet count 187, sodium 130, potassium 4.3, BUN 25, creatinine 0.47. Antibiotics changed to IV cefepime and Levaquin REVIEW OF SYSTEMS: Intubated PHYSICAL EXAMINATION: GENERAL: The patient is intubated HEENT: Pupils are round and equally reacting to light. EOMI. No scleral icterus. No conjunctival pallor. Normocephalic, atraumatic. No pharyngeal erythema. No thyromegaly. CARDIOVASCULAR: S1 and S2 present. No murmurs, rubs, or gallops. PULMONARY: Chest is clear to auscultation, no wheezing or crackles. ABDOMEN: Soft, nontender, nondistended, normoactive bowel sounds. No palpable organomegaly. MUSCULOSKELETAL: No joint swelling or deformity. EXTREMITIES: No cyanosis, clubbing, or pedal edema. NEUROLOGICAL: Intubated and sedated SKIN: No rashes. Assessment and plan Acute exacerbation of chronic COPD Acute hypoxemic hypercapnic respiratory failure Pneumonia Advanced COPD at baseline History of smoking History of HIV currently on Biktarvy. Viral count and CD4 counts are not known. No previous history of a persistent infections. The patient has not been rec eiving any form of antibiotic treatments such as Bactrim. Her infectious disease doctor is Dr. Salguero. The CD4 count is at 81 Monitor vital signs Monitor CBC Monitor CMP Continue telemetry monitoring Aggressive bronchopulmonary hygiene Continue vent management per ICU Continue IV Solu-Medrol Continue IV Levaquin and cefepime Continue breathing treatments Continue tube feeding Critical care following ID following Labs and medication were reviewed.. Continue same treatment. Continue with sym ptomatic treatment. Resume home medication. Monitor labs and vitals. DVT and GI prophylaxis. Further recommendations as per clinical course of the patient Dictation was produced using [employer] dictation software. please excuse any grammatical, word or spelling errors. Objective - Vital Signs Vital signs: Vital Signs Temp 97.9 F 08/15/23 08:00 Pulse 86 08/15/23 11:30 Resp 18 08/15/23 11:00 BP 117/77 08/15/23 09:00 Pulse Ox 100 08/15/23 11:00 FiO2 35 08/15/23 11:24 Intake & Output 08/14/23 08/15/23 08/15/23 18:59 06:59 18:59 Intake Total 9251.097 0621.27 628.79 Output Total 335 415 180 Balance 1273.491 889.27 448.79 Weight 56.2 kg 60.1 kg Intake: IV 1258 936 390 Azithromycin 500 mg In 250 Sodium Chloride 0.9% 250 ml @ 250 mls/hr IVPB DAILY [facility] Rx#:[id number] Levofloxacin 750Mg-D5w 150 75 Pmx 750 mg In Dextrose/ Water 1 150ml.bag @ 100 mls/hr IVPB Q24H [facility] Rx#: [id number] Normal Saline Pressure 33 36 15 Bag Sodium Chloride 0.9% 1, 825 825 375 000 ml @ 75 mls/hr IV . [id number] [facility] Rx#:[id number] Intake, IV Titration 350.491 188.27 218.79 Amount Cefepime 2 gm In Sodium 100 Chloride 0.9% 100 ml @ 25 mls/hr IVPB Q8HR [facility] Rx# :[id number] Cisatracurium 200 mg In 155.554 118.79 Sodium Chloride 0.9% 180 ml @ 1 MCG/KG/MIN 3.312 mls/hr IV .Q24H [facility] Rx#: [id number] propofoL 1,000 mg In 194.937 188.27 Empty Bag 1 bag @ 15 MCG/ KG/MIN 5.715 mls/hr IV . [id number] [facility] Rx#:[id number] Tube Feeding 180 20 Output: Urine 335 415 180 Other: Voiding Method Indwelling Catheter Indwelling Catheter Indwelling Catheter ABP, PAP, CO, CI - Last Documented Arterial Blood Pressure 137/65 - Labs CBC & Chem 7: 08/15/23 05:27 08/15/23 05:27 Labs: Abnormal Lab Results - Last 24 Hours (Table) 08/13/23 08/14/23 08/14/23 Range/Units 13:30 18:04 23:59 RBC (3.80-5.40) m/uL Hgb (11.4-16.0) gm/dL MCV (80.0-100.0) fL MCHC (31.0-37.0) g/dL Lymphocytes # (1.0-4.8) k/uL ABG pH (7.35-7.45) ABG pCO2 (35-45) mmHg ABG pO2 (83-108) mmHg ABG HCO3 (21-25) mmol/L ABG Total CO2 (19-24) mmol/L ABG O2 Saturation (94-97) % Carbon Dioxide (22-30) mmol/L BUN (7-17) mg/dL Creatinine (0.52-1.04) mg/dL Glucose (74-99) mg/dL POC Glucose (mg/dL) 136 H 162 H (70-110) mg/dL Fluid Appearance Cloudy A (Clear) 08/15/23 08/15/23 08/15/23 Range/Units 05:22 05:27 05:27 RBC 3.24 L (3.80-5.40) m/uL Hgb 10.3 L (11.4-16.0) gm/dL MCV 105.9 H (80.0-100.0) fL MCHC 30.2 L (31.0-37.0) g/dL Lymphocytes # 0.2 L (1.0-4.8) k/uL ABG pH (7.35-7.45) ABG pCO2 (35-45) mmHg ABG pO2 (83-108) mmHg ABG HCO3 (21-25) mmol/L ABG Total CO2 (19-24) mmol/L ABG O2 Saturation (94-97) % Carbon Dioxide 39 H (22-30) mmol/L BUN 25 H (7-17) mg/dL Creatinine 0.47 L (0.52-1.04) mg/dL Glucose 174 H (74-99) mg/dL POC Glucose (mg/dL) 171 H (70-110) mg/dL Fluid Appearance (Clear) 08/15/23 08/15/23 Range/Units 05:44 11:21 RBC (3.80-5.40) m/uL Hgb (11.4-16.0) gm/dL MCV (80.0-100.0) fL MCHC (31.0-37.0) g/dL Lymphocytes # (1.0-4.8) k/uL ABG pH 7.29 L (7.35-7.45) ABG pCO2 76 H* (35-45) mmHg ABG pO2 165 H (83-108) mmHg ABG HCO3 37 H (21-25) mmol/L ABG Total CO2 39 H (19-24) mmol/L ABG O2 Saturation 98.0 H (94-97) % Carbon Dioxide (22-30) mmol/L BUN (7-17) mg/dL Creatinine (0.52-1.04) mg/dL Glucose (74-99) mg/dL POC Glucose (mg/dL) 173 H (70-110) mg/dL Fluid Appearance (Clear) Microbiology - Last 24 Hours (Table) 08/13/23 13:30 Gram Stain - Preliminary Bronchial Washings - Random Bronchial Washings Culture - Preliminary Rimma albicans
--- NOTE | 2023-08-15 12:54 | P.PN ---
Subjective Progress Note Date: 08/15/23 Principal diagnosis: Reason for follow-up is HIV and possible pneumonia Patient is a 52-year-old female with a past medical history significant for HIV on Biktarvy, also with a history of COPD presenting to the hospital for evaluation of increasing shortness of breath patient did have worsening respiratory status got intubated, patient did have a CT angiogram of the chest that was negative for PE did shows a lung nodule did not mention any infiltrate or consolidation. On today's evaluation that is 08/15/2023 patient remains to be afebrile, the patient remains to be intubated on the vent FiO2 is currently at 35% patient not requiring any pressor support to maintain her blood pressure no diarrhea and the changes reported by the nursing staff. Patient white count is 4.2, creatinine 0.47, bronchial wash currently growing Rimma albicans Objective - Vital Signs Vital signs: Vital Signs Temp 97.9 F 08/15/23 08:00 Pulse 86 08/15/23 11:00 Resp 18 08/15/23 11:00 BP 117/77 08/15/23 09:00 Pulse Ox 100 08/15/23 11:00 FiO2 35 08/15/23 10:00 Intake & Output 08/14/23 08/15/23 08/15/23 18:59 06:59 18:59 Intake Total 2922.526 6151.27 628.79 Output Total 335 415 180 Balance 1273.491 889.27 448.79 Weight 56.2 kg 60.1 kg Intake: IV 1258 936 390 Azithromycin 500 mg In 250 Sodium Chloride 0.9% 250 ml @ 250 mls/hr IVPB DAILY [facility] Rx#:[id number] Levofloxacin 750Mg-D5w 150 75 Pmx 750 mg In Dextrose/ Water 1 150ml.bag @ 100 mls/hr IVPB Q24H [facility] Rx#: [id number] Normal Saline Pressure 33 36 15 Bag Sodium Chloride 0.9% 1, 825 825 375 000 ml @ 75 mls/hr IV . [id number] [facility] Rx#:[id number] Intake, IV Titration 350.491 188.27 218.79 Amount Cefepime 2 gm In Sodium 100 Chloride 0.9% 100 ml @ 25 mls/hr IVPB Q8HR [facility] Rx# :[id number] Cisatracurium 200 mg In 155.554 118.79 Sodium Chloride 0.9% 180 ml @ 1 MCG/KG/MIN 3.312 mls/hr IV .Q24H [facility] Rx#: [id number] propofoL 1,000 mg In 194.937 188.27 Empty Bag 1 bag @ 15 MCG/ KG/MIN 5.715 mls/hr IV . [id number] [facility] Rx#:[id number] Tube Feeding 180 20 Output: Urine 335 415 180 Other: Voiding Method Indwelling Catheter Indwelling Catheter ABP, PAP, CO, CI - Last Documented Arterial Blood Pressure 137/65 - Exam GENERAL DESCRIPTION: Middle-aged female intubated on the vent RESPIRATORY SYSTEM: Unlabored breathing , decreased breath sounds at bases HEART: S1 S2 regular rate and rhythm , ABDOMEN: Soft , no tenderness EXTREMITIES: No edema feet - Labs CBC & Chem 7: 08/15/23 05:27 08/15/23 05:27 Labs: Abnormal Lab Results - Last 24 Hours (Table) 08/13/23 08/14/23 08/14/23 Range/Units 13:30 11:45 18:04 RBC (3.80-5.40) m/uL Hgb (11.4-16.0) gm/dL MCV (80.0-100.0) fL MCHC (31.0-37.0) g/dL Lymphocytes # (1.0-4.8) k/uL ABG pH (7.35-7.45) ABG pCO2 (35-45) mmHg ABG pO2 (83-108) mmHg ABG HCO3 (21-25) mmol/L ABG Total CO2 (19-24) mmol/L ABG O2 Saturation (94-97) % Carbon Dioxide (22-30) mmol/L BUN (7-17) mg/dL Creatinine (0.52-1.04) mg/dL Glucose (74-99) mg/dL POC Glucose (mg/dL) 167 H 136 H (70-110) mg/dL Fluid Appearance Cloudy A (Clear) 08/14/23 08/15/23 08/15/23 Range/Units 23:59 05:22 05:27 RBC (3.80-5.40) m/uL Hgb (11.4-16.0) gm/dL MCV (80.0-100.0) fL MCHC (31.0-37.0) g/dL Lymphocytes # (1.0-4.8) k/uL ABG pH (7.35-7.45) ABG pCO2 (35-45) mmHg ABG pO2 (83-108) mmHg ABG HCO3 (21-25) mmol/L ABG Total CO2 (19-24) mmol/L ABG O2 Saturation (94-97) % Carbon Dioxide 39 H (22-30) mmol/L BUN 25 H (7-17) mg/dL Creatinine 0.47 L (0.52-1.04) mg/dL Glucose 174 H (74-99) mg/dL POC Glucose (mg/dL) 162 H 171 H (70-110) mg/dL Fluid Appearance (Clear) 08/15/23 08/15/23 Range/Units 05:27 05:44 RBC 3.24 L (3.80-5.40) m/uL Hgb 10.3 L (11.4-16.0) gm/dL MCV 105.9 H (80.0-100.0) fL MCHC 30.2 L (31.0-37.0) g/dL Lymphocytes # 0.2 L (1.0-4.8) k/uL ABG pH 7.29 L (7.35-7.45) ABG pCO2 76 H* (35-45) mmHg ABG pO2 165 H (83-108) mmHg ABG HCO3 37 H (21-25) mmol/L ABG Total CO2 39 H (19-24) mmol/L ABG O2 Saturation 98.0 H (94-97) % Carbon Dioxide (22-30) mmol/L BUN (7-17) mg/dL Creatinine (0.52-1.04) mg/dL Glucose (74-99) mg/dL POC Glucose (mg/dL) (70-110) mg/dL Fluid Appearance (Clear) Microbiology - Last 24 Hours (Table) 08/13/23 13:30 Gram Stain - Preliminary Bronchial Washings - Random Assessment and Plan (1) Acute respiratory failure Current Visit: Yes Status: Acute Code(s): J96.00 - ACUTE RESPIRATORY FAILURE, UNSP W HYPOXIA OR HYPERCAPNIA SNOMED Code(s): 59324420 (2) HIV disease Current Visit: No Status: Acute Code(s): B20 - HUMAN IMMUNODEFICIENCY VIRUS [HIV] DISEASE SNOMED Code(s): 13371010 Plan: 1patient presented to hospital with increasing shortness of breath which is likely multifactorial in this patient who did have a history of COPD and likely COPD is a patient with a tracheobronchitis underlying pneumonia less likely but not adequately especially patient with no fever or any elevated white count except 1 day 2-patient did have a CT angiogram of the chest that was negative for PE did not show any evidence of pneumonia or interstitial infiltrate 3-patient did have a penicillin allergy that will limit the number of antibiotics safe to use 4-patient to continue with the cefepime and Levaquin, check urine for Legionella antigen Dictation was produced using [employer] dictation software. please excuse any grammatical, word or spelling errors. Time with Patient: Less than 30
[2023-08-15] MEDS: MIDAZOLAM HCL 50 MG in SODIUM CHLORIDE 0.9% 40 ML IV SCH (14:12)
[2023-08-15] MEDS: CISATRACURIUM 200 MG in SODIUM CHLORIDE 0.9% 180 ML IV SCH (14:46)
--- NOTE | 2023-08-15 15:04 | XR ---
EXAMINATION TYPE: XR chest 1V portable DATE OF EXAM: 08/15/2023 Comparison: Earlier today Clinical History: 52-year-old female shortness of breath Findings: ET and NG tubes are satisfactory. Left subclavian CVC tip lower SVC. Heart normal size. Mild hyperinf lation. No consolidation or pleural effusion. Impression: COPD. No acute process seen.
[2023-08-15 17:33] LABS: Glucose,Whole Blood 157 mg/dL (70-110)
[2023-08-15 23:41] LABS: Glucose,Whole Blood 157 mg/dL (70-110)
[2023-08-16] MEDS: ARTIFICIAL TEARS-HYPROMELLOSE DROPS 15 ML BTL BOTH EYES SCH (00:51)
[2023-08-16] MEDS: ARTIFICIAL TEARS OINTMENT 3.5 GM TUBE BOTH EYES SCH (00:51)
[2023-08-16 05:01] LABS: Basophils % (A) 0 %; Eosinophils % (A) 0 %; HCT 39.3 % (34.0-46.0); Hypochromasia Moderate; Lymphocytes # (A) 0.3 k/uL (1.0-4.8); Lymphocytes % (A) 5 %; MCH 32.3 pg (25.0-35.0); MCHC 30.5 g/dL (31.0-37.0); Macrocytosis Moderate; Mean Platelet Volume 7.2; Monocytes # (A) 0.2 k/uL (0-1.0); Monocytes % (A) 4 %; Neutrophils # (A) 4.5 k/uL (1.3-7.7); Neutrophils % (A) 90 %; Platelet Count 234 k/uL (150-450); RBC 3.71 m/uL (3.80-5.40); RDW 13.2 % (11.5-15.5)
[2023-08-16 05:12] LABS: African American GFR (CKD) >90 (>60 ml/min/1.73 sqM); Anion Gap -5 mmol/L; Blood Urea Nitrogen 27 mg/dL (7-17); Calcium 8.4 mg/dL (8.4-10.2); Carbon Dioxide 37 mmol/L (22-30); Chloride 107 mmol/L (98-107); Glucose 171 mg/dL (74-99); Non-African American GFR(CKD) >90 (>60 ml/min/1.73 sqM); Potassium 4.3 mmol/L (3.5-5.1); Sodium 139 mmol/L (137-145)
[2023-08-16 05:47] LABS: ABG Base Excess 8.2 mmol/L; ABG HCO3 35 mmol/L (21-25); ABG Oxygen Saturation 98.5 % (94-97); ABG PCO2 68 mmHg (35-45); ABG PH 7.31 (7.35-7.45); ABG PO2 103 mmHg (83-108); ABG TCO2 37 mmol/L (19-24); Allen Test Performed? Yes
[2023-08-16 05:53] LABS: Glucose,Whole Blood 152 mg/dL (70-110)
--- NOTE | 2023-08-16 08:15 | XR ---
EXAMINATION TYPE: XR chest 1V portable DATE OF EXAM: 08/16/2023 COMPARISON: 08/15/2023 INDICATION: Tube placement TECHNIQUE: Single frontal view of the chest is obtained. FINDINGS: The heart size is normal. The pulmonary vasculature is normal. Is some blunting left costophrenic angle. Minimal effusion may be present. Lung moralez otherwise appe ar clear Endotracheal tube tip is 4.7 cm above the angel. Nasogastric tube tip is within the left upper quadr ant of the abdomen. Left central venous catheter is present with the tip in the distal superior vena cava region. IMPRESSION: 1. Minimal left pleural effusion. 2. Lines and catheters discussed above.
[2023-08-16] MEDS: IPRATROPIUM-ALBUTEROL 3 ML NEB INHALATION SCH (11:15)
[2023-08-16 11:57] LABS: Glucose,Whole Blood 177 mg/dL (70-110)
--- NOTE | 2023-08-16 12:25 | P.PN ---
Subjective Progress Note Date: 08/16/23 Principal diagnosis: Acute hypoxic respiratory failure secondary to acute exacerbation of COPD This is a 52-year-old female patient with known history of COPD. The patient is maintained on Trelegy Ellipta on outpatient basis and she also has a DuoNeb nebulized treatment to be used on an as-needed basis. She is known to have HIV and currently she is on Biktarvy followed up by Dr. Salguero on outpatient basis regarding her HIV. She is not aware of her recent CD4 counts and viral loads. She has been having issues with increased respiratory distress and [employer] exacerbation for the past 2 to 3 weeks. She received several rounds of antibiotics and steroids for our office for [employer] exacerbation she did not encounter any significant improvement. She ultimately came into the hospital for increased shortness of breath. She was briefly placed on BiPAP and the patient is currently on oxygen at 6 L/min nasal cannula with a pulse ox of 98%. She is quite short of breath even at rest. Not using accessory muscles of breathing. Sodium levels at 126, potassium is 4.3, bicarb is 29, BUN is at 8 with a creatinine of 0.39. WBC count of 4.7 with a hemoglobin of 14.5 and a platelet count of 241. The viral screen came back negative. The chest x-ray shows no acute abnormalities. There is hyperinflation consistent with COPD. Scattered senescent parenchymal changes are seen bilaterally. Findings are essentially consistent with COPD. She was started on bronchodilators with D uoNeb updrafts. She is also on IV Solu-Medrol. She was started on Zithromax as an empiric antibiotic coverage and she is also normal saline at rate of 75 cc an hour. No frequent hospital admissions for COPD exacerbation. Her last admission to the hospital was back in 2021 essentially same presentation. She has been trying to quit smoking and she has not smoked for the past several months. She has been smoking since the age of 11 and she carries more than [id number] smoking history. On 08/11/2023, the patient is being seen for a follow-up. The patient was hospitalized for an acute Exacerbation the patient is feeling better on today's evaluation this bronchospastic and wheezy. She is known to have HIV. Viral constant CD4 counts are still pending for now. She is currently on Zithromax, IV Solu-Medrol, DuoNeb nebulized treatments [id number]. She has failed outpatient treatment for that reason the patient was hospitalized. No fever. No altered mentation. No other new complaints otherwise for now. Oxygenation is stable on 3 L O2 nasal cannula with a pulse ox of 98%. On today's evaluation of 08/12/2023, the patient reports limited improvement since yesterday. Still bronchospastic and wheezy and continues to be short of breath. Maintained on Symbicort and DuoNeb updrafts and maintained on IV Solu- Medrol 60 mg every 6 hours. She remains on empiric antibiotic coverage with IV Zithromax. No nausea vomiting or diarrhea. BUN is at 19 with a creatinine of 0.5 and a sodium levels at 138. No other significant events otherwise for now. The patient has a impaired CD4 count of 81. As such, the patient is high immunosuppressed and she may be potentially at risk of opportunistic infection. Patient continue antiretroviral treatment. Obtain a follow-up chest x-ray tomorrow. On 08/13/2023, the patient is quite lethargic on a BiPAP. Events from yesterday was noted. The patient became progressively more short of breath. She became restless, anxious, along with increased agitation and respiratory distress. The patient accordingly was placed on a BiPAP at a pressure of 12 over 5 cm of water and currently she is on #2 of 60%. She is generating a tidal volume of around about 400 with a minute ventilation of 7.4. Respirate is currently at 18. She is actively bronchospastic and wheezy. Blood gases that was done before the BiPAP utilization showed a pH of 7.24 with a pCO2 of 98 and pO2 of 69. Rest of the labs from today are still pending. A repeat chest x-ray was done this morning and it shows no evidence of any acute cardiopulmonary process. The patient remains on bronchodilators. The patient remains on IV Solu-Medrol 60 mg every 6 hours. As mentioned earlier, her CD4 count was low at 81. Nevertheless, no indication for any opportunistic infections at this point in time. Her temperature is low and the patient is afebrile and hemodynamically stable. She did receive Ativan 1 mg and she seems to be much more comfortable and synchronous with the BiPAP treatment. Will transfer the patient to the intensive care unit. Will repeat her blood gas. Use Precedex if needed. Patient was placed today on 08/14/2023, patient was admitted few days ago, however yesterday patient was intubated and required mechanical ventilation. Patient is now on assist-control rate of 16 tidal volume 350 FiO2 45% and PEEP of 5 ABG on 40% and rate of 16 showed a pO2 of 59 pCO2 51 pH of 7.47 hence I increased the FiO2 to 45% and cut down the rate to 14. Patient will be allowed to have more permissive hypercapnia patient is still requiring significant amount of sedation including propofol at 50 mcg/kg/min Nimbex at 2 mcg/kg/min she is also on Dilaudid [id number], on Lovenox enteral feeding, and IV fluid at 0.9 normal saline at 75 cc/h. Patient is not requiring any pressors or any inotropes. Patient is immunocompromise, she does have history of HIV, and she has very low CD4 count of 81. She is definitely high risk for opportunistic infections, infectious disease was consulted. Considering her gases and considering her physical exam findings, patient is not quite ready for weaning, and I have no plans to wean and extubate today. I will keep the patient presently on Nimbex, she got intubated last night, and will continue broncho dilators, continue steroids, and continue enteral feeding/nutritional support. Chest x-ray this morning showed emphysematous changes, no acute pulmonary process. CT of the brain showed a focal area of hypoattenuation involving the inferior right temporal lobe.May represent an infarct, possibly chronic. BBC count today is 9.2 hemoglobin is 12.5 basic metabolic profile is normal bicarb is 37, renal profile is normal. Patient was reevaluated today on 08/15/2023, remains intubated and mechanically ventilated, remains in the ICU, she is on assist-control rate of 14 tidal volume 350 FiO2 45% PEEP of 5 ABG showed a pO2 of 165 pCO2 76 pH of 7.29. ABG showed a pO2 of 165 pCO2 76 pH of 7.29, hence FiO2 was cut down to 35% and rate increased up to 18. Remains on propofol at 50 mcg/kg/min, Nimbex at 2 mcg/kg/min, she is also on normal saline at 75 cc/h and receiving vital AF . Today my plan is to discontinue Nimbex, and likely start the patient on fentanyl at 0.5 mcg/kg/h. Antibiotics beltran the patient remains on cefepime and Levaquin. For some reason the infectious disease physician ordered a CT angiogram of the chest yesterday, although her presentation was clearly a presentation of COPD and the presentation clearly explains her clinical picture, CT angiogram of course showed no evidence of pulmonary embolism, it did show a 9 mm nodule which is something needs to be followed on outpatient basis, and possibly repeat CT of the chest in 6 months. Or at least try to retrieve any old scans on this patient in the past and see if this nodule was present before nonetheless the p atient will need a low-dose CT of the chest on annual basis anyway. Labs today showed WBC count of 4.2 hemoglobin 10.3, basic metabolic profile is normal renal profile is normal. Procalcitonin is less than 0.02 patient was seen by infectious disease and he kept the patient empirically on Levaquin and cefepime Patient was elevated today on 08/16/2023, remains in the ICU, intubated and mechanically ventilated. Remains on assist-control rate of 18 tidal volume 350 FiO2 35% PEEP of 5 ABG showed a pO2 of 103 pCO2 68 pH of 7.31, hence no changes were made in vent settings. Patient continues to have relatively high peak airway pressures in the high 30s. Continues to be tight and seems to have poor air exchange. Yesterday the patient was given a trial off Nimbex, however could not tolerate going off Nimbex in spite of using propofol fentanyl and Versed. Patient had to go back on Nimbex yesterday because of extreme agitation and she was not synchronous with the ventilator, noted to be tachypneic, tachycardic, and she was bucking the ventilator. Not to mention she was developing signif icantly high airway pressure. Today the patient is back on Nimbex at 2 mcg/kg/min Fentanyl 1 mcg/kg/h propofol 60 mcg/kg/min she is receiving vital AF she is also 1.9 normal saline at 75 cc/h. Remains on antibiotics in the form of Levaquin and cefepime. Her cultures have been negative including BAL culture, she did have Rimma, doubt any significance, I infectious disease is addressing. Considering what I have noted yesterday when the patient was off Nimbex, and considering her overall clinical condition today, I have no plans to discontinue discontinue Nimbex today. Will continue with the present cocktail sedation including Nimbex fentanyl and propofol, and will continue mechanical ventilation without any major change. Also continue antibiotics. And bronchodilators as well as IV Solu-Medrol. Objective - Vital Signs Vital signs: Vital Signs Temp 97.6 F 08/16/23 08:00 Pulse 82 08/16/23 11:31 Resp 18 08/16/23 10:00 BP 128/78 08/16/23 10:00 Pulse Ox 100 08/16/23 10:00 FiO2 35 08/16/23 11:14 Intake & Output 08/15/23 08/16/23 08/16/23 18:59 06:59 18:59 Intake Total 9422.261 2090.447 746.972 Output Total 445 605 190 Balance 1094.348 481.447 556.972 Weight 60.1 kg 58.7 kg Intake: IV 1014 858 312 Normal Saline Pressure 39 33 12 Bag Sodium Chloride 0.9% 1, 975 825 300 000 ml @ 75 mls/hr IV . [id number] [facility] Rx#:[id number] Intake, IV Titration 505.348 228.447 341.972 Amount Cefepime 2 gm In Sodium 100 100 Chloride 0.9% 100 ml @ 25 mls/hr IVPB Q8HR [facility] Rx# :[id number] Cisatracurium 200 mg In 118.79 Sodium Chloride 0.9% 180 ml @ 1 MCG/KG/MIN 3.312 mls/hr IV .Q24H [facility] Rx#: [id number] Cisatracurium 200 mg In 153.195 Sodium Chloride 0.9% 180 ml @ 2 MCG/KG/MIN 7.212 mls/hr IV .Q24H [facility] Rx#: [id number] Midazolam HCl 50 mg In 0.167 Sodium Chloride 0.9% 40 ml @ 1 MG/HR 1 mls/hr IV .Q24H [facility] Rx#:[id number] fentaNYL (PF). 1,000 mcg 49.733 28.447 In Sodium Chloride 0.9% 80 ml @ 0.5 MCG/KG/HR 3. 005 mls/hr IV .Q24H [facility] Rx#:[id number] propofoL 1,000 mg In 236.658 200 88.777 Empty Bag 1 bag @ 15 MCG/ KG/MIN 5.715 mls/hr IV . [id number] [facility] Rx#:[id number] Tube Feeding 20 63 Other 30 Output: Urine 445 605 190 Other: Voiding Method Indwelling Catheter Indwelling Catheter Indwelling Catheter ABP, PAP, CO, CI - Last Documented Arterial Blood Pressure 122/53 - Exam General: Revealed 52-year-old female intubated mechanically ventilated sedated and paralyzed, in no distress Skin: Skin is warm and dry and no rashes or lesions are noted. Eye: Pupils are equal, round and reactive to light, extra-ocular movements are intact; there is normal conjunctiva bilaterally. Ears, nose, mouth and throat: There are moist mucous membranes and no oral lesions. Endotracheal tube and orogastric tubes are intact. Neck: The neck is supple, there is no tenderness or JVD. Cardiovascular: Normal S1-S2, no S3 gallop. No murmur. Respiratory: Minich breath sound bilaterally some wheezing bilaterally is also noted. Gastrointestinal: Soft, non-distended, non-tender abdomen without masses or organomegaly noted. no rebound or guarding present. Bowel sounds are unrema rkable. Musculoskeletal: No deformities noted. Neurological: Could not not assess patient is sedated and paralyzed Psychiatric: Could not assess patient is sedated and paralyzed - Labs CBC & Chem 7: 08/16/23 04:27 08/16/23 04:27 Labs: Abnormal Lab Results - Last 24 Hours (Table) 08/15/23 08/15/23 08/16/23 Range/Units 17:32 23:40 04:27 RBC 3.71 L (3.80-5.40) m/uL MCV 106.0 H (80.0-100.0) fL MCHC 30.5 L (31.0-37.0) g/dL Lymphocytes # 0.3 L (1.0-4.8) k/uL ABG pH (7.35-7.45) ABG pCO2 (35-45) mmHg ABG HCO3 (21-25) mmol/L ABG Total CO2 (19-24) mmol/L ABG O2 Saturation (94-97) % Carbon Dioxide (22-30) mmol/L BUN (7-17) mg/dL Creatinine (0.52-1.04) mg/dL Glucose (74-99) mg/dL POC Glucose (mg/dL) 157 H 157 H (70-110) mg/dL 08/16/23 08/16/23 08/16/23 Range/Units 04:27 05:43 05:52 RBC (3.80-5.40) m/uL MCV (80.0-100.0) fL MCHC (31.0-37.0) g/dL Lymphocytes # (1.0-4.8) k/uL ABG pH 7.31 L (7.35-7.45) ABG pCO2 68 H (35-45) mmHg ABG HCO3 35 H (21-25) mmol/L ABG Total CO2 37 H (19-24) mmol/L ABG O2 Saturation 98.5 H (94-97) % Carbon Dioxide 37 H (22-30) mmol/L BUN 27 H (7-17) mg/dL Creatinine 0.47 L (0.52-1.04) mg/dL Glucose 171 H (74-99) mg/dL POC Glucose (mg/dL) 152 H (70-110) mg/dL 08/16/23 Range/Units 11:55 RBC (3.80-5.40) m/uL MCV (80.0-100.0) fL MCHC (31.0-37.0) g/dL Lymphocytes # (1.0-4.8) k/uL ABG pH (7.35-7.45) ABG pCO2 (35-45) mmHg ABG HCO3 (21-25) mmol/L ABG Total CO2 (19-24) mmol/L ABG O2 Saturation (94-97) % Carbon Dioxide (22-30) mmol/L BUN (7-17) mg/dL Creatinine (0.52-1.04) mg/dL Glucose (74-99) mg/dL POC Glucose (mg/dL) 177 H (70-110) mg/dL Microbiology - Last 24 Hours (Table) 08/13/23 13:30 Gram Stain - Final Bronchial Washings - Random Bronchial Washings Culture - Final Rimma albicans 08/13/23 13:30 Acid Fast Bacilli Smear - Preliminary Sputum 08/10/23 13:19 Blood Culture - Final Blood Assessment and Plan Assessment: Impression: Acute hypoxic respiratory failure secondary to acute exacerbation of COPD requiring intubation mechanical ventilation on 08/13/2023. Advanced COPD Incidental finding of a left upper lobe 9 mm nodule seen on CT of the chest, needs outpatient follow History of HIV, on biktarvy, patient has very low CD4 count, she is prone to opportunistic infections, cultures have been negative from BAL, patient is empirically on cefepime and Levaquin Status post bronchoscopy and BAL 08/12 Rimma in the sputum/BAL, doubt significance however considering the patient has very low CD4 count, infectious disease may decide to treat Recommendation: Patient failed trial of stopping Nimbex hence she will go back on Nimbex again Continue same ventilatory settings and ventilatory support Continue antibiotics Continue GI and DVT prophylaxis Continue nutritional support/enteral feeding Continue bronchodilators and steroids including Solu-Medrol 60 mg IV push every 6 hours Daily x-rays of the chest Daily labs and address accordingly Remains critically ill, requiring significant amount of sedation and paralysis, otherwise could not properly ventilate. No plans to wean today or stop sedation or paralysis today. May have to seriously consider plans for tracheostomy and PEG tube placement if the patient remains as such. This will be decided upon in the next 4 to 5 days Critical care time is over 30 minutes not including the time for procedures Will continue tofollow Time with Patient: Greater than 30
--- NOTE | 2023-08-16 13:14 | P.PN ---
Subjective Progress Note Date: 08/16/23 52-year-old female presenting to the emergency department with difficulty breathing. Symptoms have been present for the past 3 days. Occasional cough, nonproductive. No fever or recent upper respiratory infection. No calf pain or leg swelling. Patient does have history of similar symptoms previously a ssociated with COPD. Patient is a former smoker, patient has more than 40 pack years history of smoking. Sodium levels at 126, potassium is 4.3, bicarb is 29, BUN is at 8 with a creatinine of 0.39. WBC count of 4.7 with a hemoglobin of 14.5 and a platelet count of 241. The viral screen came back negative. The chest x-ray shows no acute abnormalities. There is hyperinflation consistent with COPD. Scattered senescent parenchymal changes are seen bilaterally. Findings are essentially consistent with COPD. She was briefly placed on BiPAP and the patient is currently on oxygen at 6 L/min nasal cannula with a pulse ox of 98%. She is quite short of breath even at rest. Not using accessory muscles of breathing. She was started on bronchodilators with DuWoo salgadorafts. She is also on IV Solu-Medrol. She was started on Zithromax as an empiric antibiotic coverage and she is also normal saline at rate of 75 cc an hour. 08/13/2023 Patient is seen and evaluated in room at bedside; has been transferred to selective care unit; patient was getting short of breath and anxious with increasing agitation; patient was transferred to stepdown unit and placed on BiPAP --Patient continuing to be more lethargic this morning; evaluated by critical care service -- Chest x-ray completed this morning is negative for any acute process -Patient is currently on IV Solu-Medrol, bronchodilator nebulizer treatments and antibiotic therapy -- Patient is breathing comfortably with BiPAP; critical care planning to transfer patient to ICU for close monitoring with further recommendations once repeat blood gases are available 08/13. Patient seen and examined. Continues to be intubated. Patient history of HIV. Currently on propofol. Getting tube feeding as well 08/14. Patient seen and examined. Continues to be intubated. Blood work this morning showed WBC 4.2, hemoglobin 10.3, platelet count 187, sodium 130, potassium 4.3, BUN 25, creatinine 0.47. Antibiotics changed to IV cefepime and Levaquin 08/15. Patient seen examined. Continues to be intubated in the ICU, currently on propofol, Nimbex and fentanyl. Blood work done this morning showed WBC 5, hemoglobin 12, platelet count 234, sodium 139, potassium 4.3, BUN 27, creatinine 0.47 REVIEW OF SYSTEMS: Intubated PHYSICAL EXAMINATION: GENERAL: The patient is intubated HEENT: Pupils are round and equally reacting to light. EOMI. No scleral icterus. No conjunctival pallor. Normocephalic, atraumatic. No pharyngeal erythema. No thyromegaly. CARDIOVASCULAR: S1 and S2 present. No murmurs, rubs, or gallops. PULMONARY: Chest is clear to auscultation, no wheezing or crackles. ABDOMEN: Soft, nontender, nondistended, normoactive bowel sounds. No palpable organomegaly. MUSCULOSKELETAL: No joint swelling or deformity. EXTREMITIES: No cyanosis, clubbing, or pedal edema. NEUROLOGICAL: Intubated and sedated SKIN: No rashes. Assessment and plan Acute exacerbation of chronic COPD Acute hypoxemic hypercapnic respiratory failure Pneumonia Advanced COPD at baseline History of smoking History of HIV currently on Biktarvy. Viral count and CD4 counts are not known. No previous history of a persistent infections. The patient has not been receiving any form of antibiotic treatments such as Bactrim. Her infectious disease doctor is Dr. Salguero. The CD4 count is at 81 Monitor vital signs Monitor CBC Monitor CMP Continue telemetry monitoring Aggressive bronchopulmonary hygiene Continue vent management per ICU Continue IV Solu-Medrol Continue IV Levaquin and cefepime Continue breathing treatments Continue tube feeding Critical care following ID following Labs and medication were reviewed.. Continue same treatment. Continue with symptomatic treatment. Resume home medication. Monitor labs and vitals. DVT and GI prophylaxis. Further recommendations as per clinical course of the patient Dictation was produced using [employer] dictation software. please excuse any grammatical, word or spelling errors. Objective - Vital Signs Vital signs: Vital Signs Temp 97.9 F 08/16/23 12:00 Pulse 91 08/16/23 13:00 Resp 18 08/16/23 13:00 BP 122/72 08/16/23 13:00 Pulse Ox 99 08/16/23 13:00 FiO2 35 08/16/23 12:00 Intake & Output 08/15/23 08/16/23 08/16/23 18:59 06:59 18:59 Intake Total 8601.512 9674.447 746.972 Output Total 445 605 190 Balance 1094.348 481.447 556.972 Weight 60.1 kg 58.7 kg Intake: IV 1014 858 312 Normal Saline Pressure 39 33 12 Bag Sodium Chloride 0.9% 1, 975 825 300 000 ml @ 75 mls/hr IV . [id number] [facility] Rx#:[id number] Intake, IV Titration 505.348 228.447 341.972 Amount Cefepime 2 gm In Sodium 100 100 Chloride 0.9% 100 ml @ 25 mls/hr IVPB Q8HR [facility] Rx# :[id number] Cisatracurium 200 mg In 118.79 Sodium Chloride 0.9% 180 ml @ 1 MCG/KG/MIN 3.312 mls/hr IV .Q24H [facility] Rx#: [id number] Cisatracurium 200 mg In 153.195 Sodium Chloride 0.9% 180 ml @ 2 MCG/KG/MIN 7.212 mls/hr IV .Q24H [facility] Rx#: [id number] Midazolam HCl 50 mg In 0.167 Sodium Chloride 0.9% 40 ml @ 1 MG/HR 1 mls/hr IV .Q24H [facility] Rx#:[id number] fentaNYL (PF). 1,000 mcg 49.733 28.447 In Sodium Chloride 0.9% 80 ml @ 0.5 MCG/KG/HR 3. 005 mls/hr IV .Q24H [facility] Rx#:[id number] propofoL 1,000 mg In 236.658 200 88.777 Empty Bag 1 bag @ 15 MCG/ KG/MIN 5.715 mls/hr IV . [id number] [facility] Rx#:[id number] Tube Feeding 20 63 Other 30 Output: Urine 445 605 190 Other: Voiding Method Indwelling Catheter Indwelling Catheter Indwelling Catheter ABP, PAP, CO, CI - Last Documented Arterial Blood Pressure 120/53 - Labs CBC & Chem 7: 08/16/23 04:27 08/16/23 04:27 Labs: Abnormal Lab Results - Last 24 Hours (Table) 08/15/23 08/15/23 08/16/23 Range/Units 17:32 23:40 04:27 RBC 3.71 L (3.80-5.40) m/uL MCV 106.0 H (80.0-100.0) fL MCHC 30.5 L (31.0-37.0) g/dL Lymphocytes # 0.3 L (1.0-4.8) k/uL ABG pH (7.35-7.45) ABG pCO2 (35-45) mmHg ABG HCO3 (21-25) mmol/L ABG Total CO2 (19-24) mmol/L ABG O2 Saturation (94-97) % Carbon Dioxide (22-30) mmol/L BUN (7-17) mg/dL Creatinine (0.52-1.04) mg/dL Glucose (74-99) mg/dL POC Glucose (mg/dL) 157 H 157 H (70-110) mg/dL 08/16/23 08/16/23 08/16/23 Range/Units 04:27 05:43 05:52 RBC (3.80-5.40) m/uL MCV (80.0-100.0) fL MCHC (31.0-37.0) g/dL Lymphocytes # (1.0-4.8) k/uL ABG pH 7.31 L (7.35-7.45) ABG pCO2 68 H (35-45) mmHg ABG HCO3 35 H (21-25) mmol/L ABG Total CO2 37 H (19-24) mmol/L ABG O2 Saturation 98.5 H (94-97) % Carbon Dioxide 37 H (22-30) mmol/L BUN 27 H (7-17) mg/dL Creatinine 0.47 L (0.52-1.04) mg/dL Glucose 171 H (74-99) mg/dL POC Glucose (mg/dL) 152 H (70-110) mg/dL 08/16/23 Range/Units 11:55 RBC (3.80-5.40) m/uL MCV (80.0-100.0) fL MCHC (31.0-37.0) g/dL Lymphocytes # (1.0-4.8) k/uL ABG pH (7.35-7.45) ABG pCO2 (35-45) mmHg ABG HCO3 (21-25) mmol/L ABG Total CO2 (19-24) mmol/L ABG O2 Saturation (94-97) % Carbon Dioxide (22-30) mmol/L BUN (7-17) mg/dL Creatinine (0.52-1.04) mg/dL Glucose (74-99) mg/dL POC Glucose (mg/dL) 177 H (70-110) mg/dL Microbiology - Last 24 Hours (Table) 08/13/23 13:30 Gram Stain - Final Bronchial Washings - Random Bronchial Washings Culture - Final Rimma albicans 08/13/23 13:30 Acid Fast Bacilli Smear - Preliminary Sputum 08/10/23 13:19 Blood Culture - Final Blood
[2023-08-16 13:44] LABS: Pneumocystis jirovecii by DFA Negative (Negative)
--- NOTE | 2023-08-16 17:48 | P.PN ---
Subjective Progress Note Date: 08/16/23 Principal diagnosis: Reason for follow-up is HIV and possible pneumonia Patient is a 52-year-old female with a past medical history significant for HIV on Biktarvy, also with a history of COPD presenting to the hospital for evaluation of increasing shortness of breath patient did have worsening respiratory status got intubated, patient did have a CT angiogram of the chest that was negative for PE did shows a lung nodule did not mention any infiltrate or consolidation. On today's evaluation that is 08/16/2023, Patient is afebrile patient is currently on on the vent FiO2 of 35% no significant purulent secretions through the ET, patient cannot requiring any pressor support tolerating her tube feeds and no diarrhea has been reported. Patient did have a white count 5.0 creatinine 0.47, urine for Legionella antigen is negative, sputum for pneumocystis antigen negative Objective - Vital Signs Vital signs: Vital Signs Temp 97.9 F 08/16/23 16:00 Pulse 97 08/16/23 17:00 Resp 18 08/16/23 17:00 BP 113/73 08/16/23 17:00 Pulse Ox 96 08/16/23 17:00 FiO2 35 08/16/23 16:00 Intake & Output 08/15/23 08/16/23 08/16/23 18:59 06:59 18:59 Intake Total 9403.353 8857.447 2003.767 Output Total 445 605 570 Balance 1094.348 370.129 0728.767 Weight 60.1 kg 58.7 kg Intake: IV 1014 858 958 Levofloxacin 750Mg-D5w 100 Pmx 750 mg In Dextrose/ Water 1 150ml.bag @ 100 mls/hr IVPB Q24H [facility] Rx#: [id number] Normal Saline Pressure 39 33 33 Bag Sodium Chloride 0.9% 1, 975 825 825 000 ml @ 75 mls/hr IV . [id number] [facility] Rx#:[id number] Intake, IV Titration 505.348 228.447 745.767 Amount Cefepime 2 gm In Sodium 100 200 Chloride 0.9% 100 ml @ 25 mls/hr IVPB Q8HR [facility] Rx# :[id number] Cisatracurium 200 mg In 118.79 Sodium Chloride 0.9% 180 ml @ 1 MCG/KG/MIN 3.312 mls/hr IV .Q24H [facility] Rx#: [id number] Cisatracurium 200 mg In 173.479 Sodium Chloride 0.9% 180 ml @ 2 MCG/KG/MIN 7.212 mls/hr IV .Q24H [facility] Rx#: [id number] Midazolam HCl 50 mg In 0.167 Sodium Chloride 0.9% 40 ml @ 1 MG/HR 1 mls/hr IV .Q24H [facility] Rx#:[id number] fentaNYL (PF). 1,000 mcg 49.733 28.447 98.163 In Sodium Chloride 0.9% 80 ml @ 0.5 MCG/KG/HR 3. 005 mls/hr IV .Q24H [facility] Rx#:[id number] propofoL 1,000 mg In 236.658 200 274.125 Empty Bag 1 bag @ 15 MCG/ KG/MIN 5.715 mls/hr IV . [id number] [facility] Rx#:[id number] Tube Feeding 20 210 Other 90 Output: Urine 445 605 570 Other: Voiding Method Indwelling Catheter Indwelling Catheter Indwelling Catheter ABP, PAP, CO, CI - Last Documented Arterial Blood Pressure 108/77 - Exam GENERAL DESCRIPTION: Middle-aged female intubated on the vent RESPIRATORY SYSTEM: Unlabored breathing , decreased breath sounds at bases HEART: S1 S2 regular rate and rhythm , ABDOMEN: Soft , no tenderness EXTREMITIES: No edema feet - Labs CBC & Chem 7: 08/16/23 04:27 08/16/23 04:27 Labs: Abnormal Lab Results - Last 24 Hours (Table) 08/15/23 08/16/23 08/16/23 Range/Units 23:40 04:27 04:27 RBC 3.71 L (3.80-5.40) m/uL MCV 106.0 H (80.0-100.0) fL MCHC 30.5 L (31.0-37.0) g/dL Lymphocytes # 0.3 L (1.0-4.8) k/uL ABG pH (7.35-7.45) ABG pCO2 (35-45) mmHg ABG HCO3 (21-25) mmol/L ABG Total CO2 (19-24) mmol/L ABG O2 Saturation (94-97) % Carbon Dioxide 37 H (22-30) mmol/L BUN 27 H (7-17) mg/dL Creatinine 0.47 L (0.52-1.04) mg/dL Glucose 171 H (74-99) mg/dL POC Glucose (mg/dL) 157 H (70-110) mg/dL 08/16/23 08/16/23 08/16/23 Range/Units 05:43 05:52 11:55 RBC (3.80-5.40) m/uL MCV (80.0-100.0) fL MCHC (31.0-37.0) g/dL Lymphocytes # (1.0-4.8) k/uL ABG pH 7.31 L (7.35-7.45) ABG pCO2 68 H (35-45) mmHg ABG HCO3 35 H (21-25) mmol/L ABG Total CO2 37 H (19-24) mmol/L ABG O2 Saturation 98.5 H (94-97) % Carbon Dioxide (22-30) mmol/L BUN (7-17) mg/dL Creatinine (0.52-1.04) mg/dL Glucose (74-99) mg/dL POC Glucose (mg/dL) 152 H 177 H (70-110) mg/dL Microbiology - Last 24 Hours (Table) 08/13/23 13:30 Gram Stain - Preliminary Sputum 08/13/23 13:30 Gram Stain - Final Bronchial Washings - Random Bronchial Washings Culture - Final Rimma albicans 08/13/23 13:30 Acid Fast Bacilli Smear - Preliminary Sputum 08/10/23 13:19 Blood Culture - Final Blood Assessment and Plan (1) Acute respiratory failure Current Visit: Yes Status: Acute Code(s): J96.00 - ACUTE RESPIRATORY FAILURE, UNSP W HYPOXIA OR HYPERCAPNIA SNOMED Code(s): 03171036 (2) HIV disease Current Visit: No Status: Acute Code(s): B20 - HUMAN IMMUNODEFICIENCY VIRUS [HIV] DISEASE SNOMED Code(s): 38294232 Plan: 1patient presented to hospital with increasing shortness of breath which is likely multifactorial in this patient who did have a history of COPD and likely COPD is a patient with a tracheobronchitis underlying pneumonia less likely but not adequately especially patient with no fever or any elevated white count except 1 day 2-patient did have a CT angiogram of the chest that was negative for PE did not show any evidence of pneumonia or interstitial infiltrate 3-patient did have a penicillin allergy that will limit the number of antibiotics safe to use 4-patient sputum is growing Rimma which is likely colonization, pneumocystis and Legionella antigens were negative May continue antibiotic for another day or 2 and monitor clinical course closely Dictation was produced using [employer] dictation software. please excuse any grammatical, word or spelling errors. Time with Patient: Less than 30
[2023-08-16 18:02] LABS: Glucose,Whole Blood 141 mg/dL (70-110)
[2023-08-16 23:19] LABS: Glucose,Whole Blood 156 mg/dL (70-110)
[2023-08-17 05:14] LABS: Basophils % (A) 0 %; Eosinophils % (A) 0 %; HCT 38.8 % (34.0-46.0); Hypochromasia Moderate; Lymphocytes # (A) 0.2 k/uL (1.0-4.8); Lymphocytes % (A) 4 %; MCH 32.6 pg (25.0-35.0); MCV 105.3 fL (80.0-100.0); Macrocytosis Slight; Mean Platelet Volume 7.7; Monocytes # (A) 0.2 k/uL (0-1.0); Monocytes % (A) 4 %; Neutrophils # (A) 5.7 k/uL (1.3-7.7); Neutrophils % (A) 92 %; Platelet Count 231 k/uL (150-450); RBC 3.68 m/uL (3.80-5.40); RDW 13.3 % (11.5-15.5); WBC 6.2 k/uL (3.8-10.6)
[2023-08-17 05:36] LABS: African American GFR (CKD) >90 (>60 ml/min/1.73 sqM); Anion Gap -1 mmol/L; Blood Urea Nitrogen 29 mg/dL (7-17); Calcium 8.3 mg/dL (8.4-10.2); Carbon Dioxide 33 mmol/L (22-30); Chloride 108 mmol/L (98-107); Glucose 152 mg/dL (74-99); Non-African American GFR(CKD) >90 (>60 ml/min/1.73 sqM); Potassium 4.5 mmol/L (3.5-5.1); Sodium 140 mmol/L (137-145)
[2023-08-17 05:58] LABS: Glucose,Whole Blood 128 mg/dL (70-110)
[2023-08-17 06:13] LABS: ABG Base Excess 8.1 mmol/L; ABG HCO3 34 mmol/L (21-25); ABG Oxygen Saturation 98.6 % (94-97); ABG PCO2 65 mmHg (35-45); ABG PH 7.33 (7.35-7.45); ABG PO2 102 mmHg (83-108); ABG TCO2 36 mmol/L (19-24); Allen Test Performed? Yes
[2023-08-17] MEDS: DOCUSATE ORAL SOLN 100 MG/10 ML CUP PO PRN (09:31)
[2023-08-17 11:50] LABS: Glucose,Whole Blood 158 mg/dL (70-110)
[2023-08-17] MEDS: MIDAZOLAM HCL 50 MG in SODIUM CHLORIDE 0.9% 40 ML IV SCH (11:50)
--- NOTE | 2023-08-17 11:51 | XR ---
EXAMINATION TYPE: XR chest 1V portable DATE OF EXAM: 08/17/2023 Comparison: 08/16/2023 Clinical History: 52-year-old female mechanical ventilation Findings: Heart normal size. Aorta and pulmonary vasculature within normal limits. Mild hyperinflation. ET tube satisfactory. NG tube courses below the diaphragm. Left subclavian CVC tip lower SVC. Mild hyperinfl ation. No consolidation or pleural effusion. Impression: Hyperinflation may relate to depth of inspiration or underlying emphysema. No acute process seen.
--- NOTE | 2023-08-17 12:04 | P.PN ---
Subjective Progress Note Date: 08/17/23 Principal diagnosis: Acute hypoxic respiratory failure secondary to acute exacerbation of COPD This is a 52-year-old female patient with known history of COPD. The patient is maintained on Trelegy Ellipta on outpatient basis and she also has a DuoNeb nebulized treatment to be used on an as-needed basis. She is known to have HIV and currently she is on Biktarvy followed up by Dr. Salguero on outpatient basis regarding her HIV. She is not aware of her recent CD4 counts and viral loads. She has been having issues with increased respiratory distress and FISH PACKER exacerbation for the past 2 to 3 weeks. She received several rounds of antibiotics and steroids for our office for FISH PACKER exacerbation she did not encounter any significant improvement. She ultimately came into the hospital for increased shortness of breath. She was briefly placed on BiPAP and the patient is currently on oxygen at 6 L/min nasal cannula with a pulse ox of 98%. She is quite short of breath even at rest. Not using accessory muscles of breathing. Sodium levels at 126, potassium is 4.3, bicarb is 29, BUN is at 8 with a creatinine of 0.39. WBC count of 4.7 with a hemoglobin of 14.5 and a platelet count of 241. The viral screen came back negative. The chest x-ray shows no acute abnormalities. There is hyperinflation consistent with COPD. Scattered senescent parenchymal changes are seen bilaterally. Findings are essentially consistent with COPD. She was started on bronchodilators with D uoNeb updrafts. She is also on IV Solu-Medrol. She was started on Zithromax as an empiric antibiotic coverage and she is also normal saline at rate of 75 cc an hour. No frequent hospital admissions for COPD exacerbation. Her last admission to the hospital was back in 2021 essentially same presentation. She has been trying to quit smoking and she has not smoked for the past several months. She has been smoking since the age of 11 and she carries more than [id number] smoking history. On 08/11/2023, the patient is being seen for a follow-up. The patient was hospitalized for an acute Exacerbation the patient is feeling better on today's evaluation this bronchospastic and wheezy. She is known to have HIV. Viral constant CD4 counts are still pending for now. She is currently on Zithromax, IV Solu-Medrol, DuoNeb nebulized treatments [id number]. She has failed outpatient treatment for that reason the patient was hospitalized. No fever. No altered mentation. No other new complaints otherwise for now. Oxygenation is stable on 3 L O2 nasal cannula with a pulse ox of 98%. On today's evaluation of 08/12/2023, the patient reports limited improvement since yesterday. Still bronchospastic and wheezy and continues to be short of breath. Maintained on Symbicort and DuoNeb updrafts and maintained on IV Solu- Medrol 60 mg every 6 hours. She remains on empiric antibiotic coverage with IV Zithromax. No nausea vomiting or diarrhea. BUN is at 19 with a creatinine of 0.5 and a sodium levels at 138. No other significant events otherwise for now. The patient has a impaired CD4 count of 81. As such, the patient is high immunosuppressed and she may be potentially at risk of opportunistic infection. Patient continue antiretroviral treatment. Obtain a follow-up chest x-ray tomorrow. On 08/13/2023, the patient is quite lethargic on a BiPAP. Events from yesterday was noted. The patient became progressively more short of breath. She became restless, anxious, along with increased agitation and respiratory distress. The patient accordingly was placed on a BiPAP at a pressure of 12 over 5 cm of water and currently she is on #2 of 60%. She is generating a tidal volume of around about 400 with a minute ventilation of 7.4. Respirate is currently at 18. She is actively bronchospastic and wheezy. Blood gases that was done before the BiPAP utilization showed a pH of 7.24 with a pCO2 of 98 and pO2 of 69. Rest of the labs from today are still pending. A repeat chest x-ray was done this morning and it shows no evidence of any acute cardiopulmonary process. The patient remains on bronchodilators. The patient remains on IV Solu-Medrol 60 mg every 6 hours. As mentioned earlier, her CD4 count was low at 81. Nevertheless, no indication for any opportunistic infections at this point in time. Her temperature is low and the patient is afebrile and hemodynamically stable. She did receive Ativan 1 mg and she seems to be much more comfortable and synchronous with the BiPAP treatment. Will transfer the patient to the intensive care unit. Will repeat her blood gas. Use Precedex if needed. Patient was placed today on 08/14/2023, patient was admitted few days ago, however yesterday patient was intubated and required mechanical ventilation. Patient is now on assist-control rate of 16 tidal volume 350 FiO2 45% and PEEP of 5 ABG on 40% and rate of 16 showed a pO2 of 59 pCO2 51 pH of 7.47 hence I increased the FiO2 to 45% and cut down the rate to 14. Patient will be allowed to have more permissive hypercapnia patient is still requiring significant amount of sedation including propofol at 50 mcg/kg/min Nimbex at 2 mcg/kg/min she is also on Dilaudid [id number], on Lovenox enteral feeding, and IV fluid at 0.9 normal saline at 75 cc/h. Patient is not requiring any pressors or any inotropes. Patient is immunocompromise, she does have history of HIV, and she has very low CD4 count of 81. She is definitely high risk for opportunistic infections, infectious disease was consulted. Considering her gases and considering her physical exam findings, patient is not quite ready for weaning, and I have no plans to wean and extubate today. I will keep the patient presently on Nimbex, she got intubated last night, and will continue broncho dilators, continue steroids, and continue enteral feeding/nutritional support. Chest x-ray this morning showed emphysematous changes, no acute pulmonary process. CT of the brain showed a focal area of hypoattenuation involving the inferior right temporal lobe.May represent an infarct, possibly chronic. BBC count today is 9.2 hemoglobin is 12.5 basic metabolic profile is normal bicarb is 37, renal profile is normal. Patient was reevaluated today on 08/15/2023, remains intubated and mechanically ventilated, remains in the ICU, she is on assist-control rate of 14 tidal volume 350 FiO2 45% PEEP of 5 ABG showed a pO2 of 165 pCO2 76 pH of 7.29. ABG showed a pO2 of 165 pCO2 76 pH of 7.29, hence FiO2 was cut down to 35% and rate increased up to 18. Remains on propofol at 50 mcg/kg/min, Nimbex at 2 mcg/kg/min, she is also on normal saline at 75 cc/h and receiving vital AF . Today my plan is to discontinue Nimbex, and likely start the patient on fentanyl at 0.5 mcg/kg/h. Antibiotics beltran the patient remains on cefepime and Levaquin. For some reason the infectious disease physician ordered a CT angiogram of the chest yesterday, although her presentation was clearly a presentation of COPD and the presentation clearly explains her clinical picture, CT angiogram of course showed no evidence of pulmonary embolism, it did show a 9 mm nodule which is something needs to be followed on outpatient basis, and possibly repeat CT of the chest in 6 months. Or at least try to retrieve any old scans on this patient in the past and see if this nodule was present before nonetheless the p atient will need a low-dose CT of the chest on annual basis anyway. Labs today showed WBC count of 4.2 hemoglobin 10.3, basic metabolic profile is normal renal profile is normal. Procalcitonin is less than 0.02 patient was seen by infectious disease and he kept the patient empirically on Levaquin and cefepime Patient was elevated today on 08/16/2023, remains in the ICU, intubated and mechanically ventilated. Remains on assist-control rate of 18 tidal volume 350 FiO2 35% PEEP of 5 ABG showed a pO2 of 103 pCO2 68 pH of 7.31, hence no changes were made in vent settings. Patient continues to have relatively high peak airway pressures in the high 30s. Continues to be tight and seems to have poor air exchange. Yesterday the patient was given a trial off Nimbex, however could not tolerate going off Nimbex in spite of using propofol fentanyl and Versed. Patient had to go back on Nimbex yesterday because of extreme agitation and she was not synchronous with the ventilator, noted to be tachypneic, tachycardic, and she was bucking the ventilator. Not to mention she was developing signif icantly high airway pressure. Today the patient is back on Nimbex at 2 mcg/kg/min Fentanyl 1 mcg/kg/h propofol 60 mcg/kg/min she is receiving vital AF she is also 1.9 normal saline at 75 cc/h. Remains on antibiotics in the form of Levaquin and cefepime. Her cultures have been negative including BAL culture, she did have Rimma, doubt any significance, I infectious disease is addressing. Considering what I have noted yesterday when the patient was off Nimbex, and considering her overall clinical condition today, I have no plans to discontinue discontinue Nimbex today. Will continue with the present cocktail sedation including Nimbex fentanyl and propofol, and will continue mechanical ventilation without any major change. Also continue antibiotics. And bronchodilators as well as IV Solu-Medrol. Reevaluate today on 08/17/2023, patient remains in the ICU, intubated and mechanically ventilated. Remains on assist-control rate of 18 tidal volume 350 FiO2 35% and PEEP of 5 ABG showed a pO2 of 102 pCO2 65 pH of 7.33. Chest x-ray continues to show no evidence of any active process. Patient remains on propofol at 60 mcg/kg/min, Nimbex at 2 mcg/kg/min Fentanyl at 1 mcg/kg/h patient is receiving vital AF at she is remains on cefepime and Levaquin as per ID on the case. Today I plan to discontinue Nimbex and see if we could control patient's agitation adequately will fentanyl propofol and Versed if needed. Have tried in the past doing this, could not ventilate the patient without having to use Nimbex. However will try again to discontinue Nimbex and try to manage the patient with fentanyl propofol and Versed if possible. Otherwise I will place her back on Nimbex. Patient is hemodynamically stable, she is not requiring any pressors. She is receiving antibiotics is also receiving enteral feeding, and she is on GI and DVT prophylaxis. Objective - Vital Signs Vital signs: Vital Signs Temp 98.2 F 08/17/23 08:00 Pulse 90 08/17/23 11:05 Resp 18 08/17/23 10:00 BP 112/68 08/17/23 10:00 Pulse Ox 98 08/17/23 10:00 FiO2 35 08/17/23 10:55 Intake & Output 08/16/23 08/17/23 08/17/23 18:59 06:59 18:59 Intake Total 2102.767 1664.699 834.227 Output Total 610 710 200 Balance 1492.767 954.699 634.227 Weight 63.9 kg Intake: IV 1036 936 312 Levofloxacin 750Mg-D5w 100 Pmx 750 mg In Dextrose/ Water 1 150ml.bag @ 100 mls/hr IVPB Q24H [facility] Rx#: [id number] Normal Saline Pressure 36 36 12 Bag Sodium Chloride 0.9% 1, 900 900 300 000 ml @ 75 mls/hr IV . [id number] [facility] Rx#:[id number] Intake, IV Titration 745.767 386.699 348.227 Amount Cefepime 2 gm In Sodium 200 100 Chloride 0.9% 100 ml @ 25 mls/hr IVPB Q8HR [facility] Rx# :[id number] Cisatracurium 200 mg In 173.479 127.292 Sodium Chloride 0.9% 180 ml @ 2 MCG/KG/MIN 7.212 mls/hr IV .Q24H [facility] Rx#: [id number] fentaNYL (PF). 1,000 mcg 98.163 99.065 20.935 In Sodium Chloride 0.9% 80 ml @ 0.5 MCG/KG/HR 3. 005 mls/hr IV .Q24H [facility] Rx#:[id number] propofoL 1,000 mg In 274.125 287.634 100.000 Empty Bag 1 bag @ 15 MCG/ KG/MIN 5.715 mls/hr IV . [id number] [facility] Rx#:[id number] Tube Feeding 231 252 84 Other 90 90 90 Output: Urine 610 710 200 Other: Voiding Method Indwelling Catheter Indwelling Catheter Indwelling Catheter ABP, PAP, CO, CI - Last Documented Arterial Blood Pressure 138/59 - Exam General: Revealed 52-year-old female intubated mechanically ventilated sedated and paralyzed, in no distress Skin: Skin is warm and dry and no rashes or lesions are noted. Eye: Pupils are equal, round and reactive to light, extra-ocular movements are intact; there is normal conjunctiva bilaterally. Ears, nose, mouth and throat: There are moist mucous membranes and no oral lesions. Endotracheal tube and orogastric tubes are intact. Neck: The neck is supple, there is no tenderness or JVD. Cardiovascular: Normal S1-S2, no S3 gallop. No murmur. Respiratory: Minich breath sound bilaterally some wheezing bilaterally is also noted. Gastrointestinal: Soft, non-distended, non-tender abdomen without masses or organomegaly noted. no rebound or guarding present. Bowel sounds are unremarkable. Musculoskeletal: No deformities noted. Neurological: Could not not assess patient is sedated and paralyzed Psychiatric: Could not assess patient is sedated and paralyzed - Labs CBC & Chem 7: 08/17/23 04:51 08/17/23 04:51 Labs: Abnormal Lab Results - Last 24 Hours (Table) 08/16/23 08/16/23 08/17/23 Range/Units 18:00 23:17 04:51 RBC 3.68 L (3.80-5.40) m/uL MCV 105.3 H (80.0-100.0) fL Lymphocytes # 0.2 L (1.0-4.8) k/uL ABG pH (7.35-7.45) ABG pCO2 (35-45) mmHg ABG HCO3 (21-25) mmol/L ABG Total CO2 (19-24) mmol/L ABG O2 Saturation (94-97) % Chloride (98-107) mmol/L Carbon Dioxide (22-30) mmol/L BUN (7-17) mg/dL Creatinine (0.52-1.04) mg/dL Glucose (74-99) mg/dL POC Glucose (mg/dL) 141 H 156 H (70-110) mg/dL Calcium (8.4-10.2) mg/dL 08/17/23 08/17/23 08/17/23 Range/Units 04:51 05:57 06:07 RBC (3.80-5.40) m/uL MCV (80.0-100.0) fL Lymphocytes # (1.0-4.8) k/uL ABG pH 7.33 L (7.35-7.45) ABG pCO2 65 H (35-45) mmHg ABG HCO3 34 H (21-25) mmol/L ABG Total CO2 36 H (19-24) mmol/L ABG O2 Saturation 98.6 H (94-97) % Chloride 108 H (98-107) mmol/L Carbon Dioxide 33 H (22-30) mmol/L BUN 29 H (7-17) mg/dL Creatinine 0.49 L (0.52-1.04) mg/dL Glucose 152 H (74-99) mg/dL POC Glucose (mg/dL) 128 H (70-110) mg/dL Calcium 8.3 L (8.4-10.2) mg/dL 08/17/23 Range/Units 11:49 RBC (3.80-5.40) m/uL MCV (80.0-100.0) fL Lymphocytes # (1.0-4.8) k/uL ABG pH (7.35-7.45) ABG pCO2 (35-45) mmHg ABG HCO3 (21-25) mmol/L ABG Total CO2 (19-24) mmol/L ABG O2 Saturation (94-97) % Chloride (98-107) mmol/L Carbon Dioxide (22-30) mmol/L BUN (7-17) mg/dL Creatinine (0.52-1.04) mg/dL Glucose (74-99) mg/dL POC Glucose (mg/dL) 158 H (70-110) mg/dL Calcium (8.4-10.2) mg/dL Microbiology - Last 24 Hours (Table) 08/13/23 13:30 Gram Stain - Preliminary Sputum 08/13/23 13:30 Gram Stain - Final Bronchial Washings - Random Bronchial Washings Culture - Final Rimma albicans Assessment and Plan Assessment: Impression: Acute hypoxic respiratory failure secondary to acute exacerbation of COPD requiring intubation mechanical ventilation on 08/13/2023. Advanced COPD Incidental finding of a left upper lobe 9 mm nodule seen on CT of the chest, needs outpatient follow History of HIV, on biktarvy, patient has very low CD4 count, she is prone to opportunistic infections, cultures have been negative from BAL, patient is empirically on cefepime and Levaquin Status post bronchoscopy and BAL 08/12 Rimma in the sputum/BAL, doubt significance Failure to discontinue Nimbex, otherwise the patient will become extremely agitated and could not be ventilated and keep her synchronous with the ventilator. However we will try taking Nimbex off again Recommendation: Patient failed trial of stopping Nimbex Continue same ventilatory settings and ventilatory support Continue antibiotics Continue GI and DVT prophylaxis Continue nutritional support/enteral feeding Continue bronchodilators and steroids including Solu-Medrol 60 mg IV push every 6 hours Continue to monitor daily x-rays of the chest Continue to monitor daily labs Remains critically ill, requiring significant amount of sedation and paralysis, otherwise could not properly ventilate. No plans to wean today but will have an attempt of stopping Nimbex. May have to seriously consider plans for tracheostomy and PEG tube placement if the patient remains as such. This will be decided upon in the next 4 to 5 days Critical care time is over 30 minutes not including the time for procedures Will continue tofollow Time with Patient: Greater than 30
[2023-08-17] MEDS: MAGNESIUM HYDROXIDE 2,400 MG/30 ML CUP PO PRN (13:16)
--- NOTE | 2023-08-17 13:21 | P.PN ---
Subjective Progress Note Date: 08/17/23 52-year-old female presenting to the emergency department with difficulty breathing. Symptoms have been present for the past 3 days. Occasional cough, nonproductive. No fever or recent upper respiratory infection. No calf pain or leg swelling. Patient does have history of similar symptoms previously a ssociated with COPD. Patient is a former smoker, patient has more than 40 pack years history of smoking. Sodium levels at 126, potassium is 4.3, bicarb is 29, BUN is at 8 with a creatinine of 0.39. WBC count of 4.7 with a hemoglobin of 14.5 and a platelet count of 241. The viral screen came back negative. The chest x-ray shows no acute abnormalities. There is hyperinflation consistent with COPD. Scattered senescent parenchymal changes are seen bilaterally. Findings are essentially consistent with COPD. She was briefly placed on BiPAP and the patient is currently on oxygen at 6 L/min nasal cannula with a pulse ox of 98%. She is quite short of breath even at rest. Not using accessory muscles of breathing. She was started on bronchodilators with DuWoo salgadorafts. She is also on IV Solu-Medrol. She was started on Zithromax as an empiric antibiotic coverage and she is also normal saline at rate of 75 cc an hour. 08/13/2023 Patient is seen and evaluated in room at bedside; has been transferred to selective care unit; patient was getting short of breath and anxious with increasing agitation; patient was transferred to stepdown unit and placed on BiPAP --Patient continuing to be more lethargic this morning; evaluated by critical care service -- Chest x-ray completed this morning is negative for any acute process -Patient is currently on IV Solu-Medrol, bronchodilator nebulizer treatments and antibiotic therapy -- Patient is breathing comfortably with BiPAP; critical care planning to transfer patient to ICU for close monitoring with further recommendations once repeat blood gases are available 08/13. Patient seen and examined. Continues to be intubated. Patient history of HIV. Currently on propofol. Getting tube feeding as well 08/14. Patient seen and examined. Continues to be intubated. Blood work this morning showed WBC 4.2, hemoglobin 10.3, platelet count 187, sodium 130, potassium 4.3, BUN 25, creatinine 0.47. Antibiotics changed to IV cefepime and Levaquin 08/15. Patient seen examined. Continues to be intubated in the ICU, currently on propofol, Nimbex and fentanyl. Blood work done this morning showed WBC 5, hemoglobin 12, platelet count 234, sodium 139, potassium 4.3, BUN 27, creatinine 0.47 08/16. Patient seen and examined. Currently in ICU. Blood work done this morning showed WBC 6.2, hemoglobin 12, platelet count 231, sodium 140, potassium 4.5, BUN 29, creatinine 0.49. Nimbex was discontinued, continues to be on propofol and fentanyl. REVIEW OF SYSTEMS: Intubated PHYSICAL EXAMINATION: GENERAL: The patient is intubated HEENT: Pupils are round and equally reacting to light. EOMI. No scleral icterus. No conjunctival pallor. Normocephalic, atraumatic. No pharyngeal erythema. No thyromegaly. CARDIOVASCULAR: S1 and S2 present. No murmurs, rubs, or gallops. PULMONARY: Chest is clear to auscultation, no wheezing or crackles. ABDOMEN: Soft, nontender, nondistended, normoactive bowel sounds. No palpable organomegaly. MUSCULOSKELETAL: No joint swelling or deformity. EXTREMITIES: No cyanosis, clubbing, or pedal edema. NEUROLOGICAL: Intubated and sedated SKIN: No rashes. Assessment and plan Acute exacerbation of chronic COPD Acute hypoxemic hypercapnic respiratory failure Pneumonia Advanced COPD at baseline History of smoking History of HIV currently on Biktarvy. Viral count and CD4 counts are not known. No previous history of a persistent infections. The patient has not been receiving any form of antibiotic treatments such as Bactrim. Her infectious disease doctor is Dr. Salguero. The CD4 count is at 81 Monitor vital signs Monitor CBC Monitor CMP Continue telemetry monitoring Aggressive bronchopulmonary hygiene Continue vent management per ICU Continue IV Solu-Medrol Continue IV Levaquin and cefepime Continue breathing treatments Continue tube feeding Critical care following ID following Labs and medication were reviewed.. Continue same treatment. Continue with symptomatic treatment. Resume home medication. Monitor labs and vitals. DVT and GI prophylaxis. Further recommendations as per clinical course of the patient Dictation was produced using [employer] dictation software. please excuse any grammatical, word or spelling errors. Objective - Vital Signs Vital signs: Vital Signs Temp 98.3 F 08/17/23 12:00 Pulse 107 H 08/17/23 12:00 Resp 19 08/17/23 12:00 BP 112/68 08/17/23 09:00 Pulse Ox 95 08/17/23 12:00 FiO2 60 08/17/23 12:00 Intake & Output 08/16/23 08/17/23 08/17/23 18:59 06:59 18:59 Intake Total 2102.767 5347.579 3340.844 Output Total 610 710 280 Balance 1492.767 954.699 882.844 Weight 63.9 kg Intake: IV 1036 936 568 Levofloxacin 750Mg-D5w 100 100 Pmx 750 mg In Dextrose/ Water 1 150ml.bag @ 100 mls/hr IVPB Q24H [facility] Rx#: [id number] Normal Saline Pressure 36 36 18 Bag Sodium Chloride 0.9% 1, 900 900 450 000 ml @ 75 mls/hr IV . [id number] [facility] Rx#:[id number] Intake, IV Titration 745.767 386.699 348.844 Amount Cefepime 2 gm In Sodium 200 100 Chloride 0.9% 100 ml @ 25 mls/hr IVPB Q8HR [facility] Rx# :[id number] Cisatracurium 200 mg In 173.479 127.292 Sodium Chloride 0.9% 180 ml @ 2 MCG/KG/MIN 7.212 mls/hr IV .Q24H [facility] Rx#: [id number] Midazolam HCl 50 mg In 0.617 Sodium Chloride 0.9% 40 ml @ 1 MG/HR 1 mls/hr IV .Q24H [facility] Rx#:[id number] fentaNYL (PF). 1,000 mcg 98.163 99.065 20.935 In Sodium Chloride 0.9% 80 ml @ 0.5 MCG/KG/HR 3. 005 mls/hr IV .Q24H [facility] Rx#:[id number] propofoL 1,000 mg In 274.125 287.634 100.000 Empty Bag 1 bag @ 15 MCG/ KG/MIN 5.715 mls/hr IV . [id number] [facility] Rx#:[id number] Tube Feeding 231 252 126 Other 90 90 120 Output: Urine 610 710 280 Other: Voiding Method Indwelling Catheter Indwelling Catheter Indwelling Catheter ABP, PAP, CO, CI - Last Documented Arterial Blood Pressure 123/62 - Labs CBC & Chem 7: 08/17/23 04:51 08/17/23 04:51 Labs: Abnormal Lab Results - Last 24 Hours (Table) 08/16/23 08/16/23 08/17/23 Range/Units 18:00 23:17 04:51 RBC 3.68 L (3.80-5.40) m/uL MCV 105.3 H (80.0-100.0) fL Lymphocytes # 0.2 L (1.0-4.8) k/uL ABG pH (7.35-7.45) ABG pCO2 (35-45) mmHg ABG HCO3 (21-25) mmol/L ABG Total CO2 (19-24) mmol/L ABG O2 Saturation (94-97) % Chloride (98-107) mmol/L Carbon Dioxide (22-30) mmol/L BUN (7-17) mg/dL Creatinine (0.52-1.04) mg/dL Glucose (74-99) mg/dL POC Glucose (mg/dL) 141 H 156 H (70-110) mg/dL Calcium (8.4-10.2) mg/dL 08/17/23 08/17/23 08/17/23 Range/Units 04:51 05:57 06:07 RBC (3.80-5.40) m/uL MCV (80.0-100.0) fL Lymphocytes # (1.0-4.8) k/uL ABG pH 7.33 L (7.35-7.45) ABG pCO2 65 H (35-45) mmHg ABG HCO3 34 H (21-25) mmol/L ABG Total CO2 36 H (19-24) mmol/L ABG O2 Saturation 98.6 H (94-97) % Chloride 108 H (98-107) mmol/L Carbon Dioxide 33 H (22-30) mmol/L BUN 29 H (7-17) mg/dL Creatinine 0.49 L (0.52-1.04) mg/dL Glucose 152 H (74-99) mg/dL POC Glucose (mg/dL) 128 H (70-110) mg/dL Calcium 8.3 L (8.4-10.2) mg/dL 08/17/23 Range/Units 11:49 RBC (3.80-5.40) m/uL MCV (80.0-100.0) fL Lymphocytes # (1.0-4.8) k/uL ABG pH (7.35-7.45) ABG pCO2 (35-45) mmHg ABG HCO3 (21-25) mmol/L ABG Total CO2 (19-24) mmol/L ABG O2 Saturation (94-97) % Chloride (98-107) mmol/L Carbon Dioxide (22-30) mmol/L BUN (7-17) mg/dL Creatinine (0.52-1.04) mg/dL Glucose (74-99) mg/dL POC Glucose (mg/dL) 158 H (70-110) mg/dL Calcium (8.4-10.2) mg/dL Microbiology - Last 24 Hours (Table) 08/13/23 13:30 Gram Stain - Preliminary Sputum 08/13/23 13:30 Gram Stain - Final Bronchial Washings - Random Bronchial Washings Culture - Final Rimma albicans
--- NOTE | 2023-08-17 14:25 | P.PN ---
Subjective Progress Note Date: 08/17/23 Principal diagnosis: Reason for follow-up is HIV and possible pneumonia Patient is a 52-year-old female with a past medical history significant for HIV on Biktarvy, also with a history of COPD presenting to the hospital for evaluation of increasing shortness of breath patient did have worsening respiratory status got intubated, patient did have a CT angiogram of the chest that was negative for PE did shows a lung nodule did not mention any infiltrate or consolidation. On today's evaluation that is 08/17/2023, patient has been afebrile, patient remains to be debated on the vent patient apparently was currently on 60% no significant purulent secretions related has been tolerating her tube feeds no diarrhea has been reported by the patient has no bowel movement for the last few days as reported by the nursing staff. Patient white count 6.2, creatinine 0.49 bronchial wash with Rimma albicans chest x-ray hyperinflation no acute processes seen Objective - Vital Signs Vital signs: Vital Signs Temp 98.3 F 08/17/23 12:00 Pulse 106 H 08/17/23 13:00 Resp 18 08/17/23 13:00 BP 100/81 08/17/23 13:00 Pulse Ox 96 08/17/23 13:00 FiO2 60 08/17/23 12:00 Intake & Output 08/16/23 08/17/23 08/17/23 18:59 06:59 18:59 Intake Total 2102.767 9008.143 7546.611 Output Total 610 710 330 Balance 1492.767 954.699 965.611 Weight 63.9 kg Intake: IV 1036 936 646 Levofloxacin 750Mg-D5w 100 100 Pmx 750 mg In Dextrose/ Water 1 150ml.bag @ 100 mls/hr IVPB Q24H [facility] Rx#: [id number] Normal Saline Pressure 36 36 21 Bag Sodium Chloride 0.9% 1, 900 900 525 000 ml @ 75 mls/hr IV . [id number] [facility] Rx#:[id number] Intake, IV Titration 745.767 386.699 352.611 Amount Cefepime 2 gm In Sodium 200 100 Chloride 0.9% 100 ml @ 25 mls/hr IVPB Q8HR [facility] Rx# :[id number] Cisatracurium 200 mg In 173.479 127.292 Sodium Chloride 0.9% 180 ml @ 2 MCG/KG/MIN 7.212 mls/hr IV .Q24H [facility] Rx#: [id number] Midazolam HCl 50 mg In 4.384 Sodium Chloride 0.9% 40 ml @ 1 MG/HR 1 mls/hr IV .Q24H [facility] Rx#:[id number] fentaNYL (PF). 1,000 mcg 98.163 99.065 20.935 In Sodium Chloride 0.9% 80 ml @ 0.5 MCG/KG/HR 3. 005 mls/hr IV .Q24H [facility] Rx#:[id number] propofoL 1,000 mg In 274.125 287.634 100.000 Empty Bag 1 bag @ 15 MCG/ KG/MIN 5.715 mls/hr IV . [id number] [facility] Rx#:[id number] Tube Feeding 231 252 147 Other 90 90 150 Output: Urine 610 710 330 Other: Voiding Method Indwelling Catheter Indwelling Catheter Indwelling Catheter ABP, PAP, CO, CI - Last Documented Arterial Blood Pressure 124/56 - Exam GENERAL DESCRIPTION: Middle-aged female intubated on the vent RESPIRATORY SYSTEM: Unlabored breathing , decreased breath sounds at bases HEART: S1 S2 regular rate and rhythm , ABDOMEN: Soft , no tenderness EXTREMITIES: No edema feet - Labs CBC & Chem 7: 08/17/23 04:51 08/17/23 04:51 Labs: Abnormal Lab Results - Last 24 Hours (Table) 08/16/23 08/16/23 08/17/23 Range/Units 18:00 23:17 04:51 RBC 3.68 L (3.80-5.40) m/uL MCV 105.3 H (80.0-100.0) fL Lymphocytes # 0.2 L (1.0-4.8) k/uL ABG pH (7.35-7.45) ABG pCO2 (35-45) mmHg ABG HCO3 (21-25) mmol/L ABG Total CO2 (19-24) mmol/L ABG O2 Saturation (94-97) % Chloride (98-107) mmol/L Carbon Dioxide (22-30) mmol/L BUN (7-17) mg/dL Creatinine (0.52-1.04) mg/dL Glucose (74-99) mg/dL POC Glucose (mg/dL) 141 H 156 H (70-110) mg/dL Calcium (8.4-10.2) mg/dL 08/17/23 08/17/23 08/17/23 Range/Units 04:51 05:57 06:07 RBC (3.80-5.40) m/uL MCV (80.0-100.0) fL Lymphocytes # (1.0-4.8) k/uL ABG pH 7.33 L (7.35-7.45) ABG pCO2 65 H (35-45) mmHg ABG HCO3 34 H (21-25) mmol/L ABG Total CO2 36 H (19-24) mmol/L ABG O2 Saturation 98.6 H (94-97) % Chloride 108 H (98-107) mmol/L Carbon Dioxide 33 H (22-30) mmol/L BUN 29 H (7-17) mg/dL Creatinine 0.49 L (0.52-1.04) mg/dL Glucose 152 H (74-99) mg/dL POC Glucose (mg/dL) 128 H (70-110) mg/dL Calcium 8.3 L (8.4-10.2) mg/dL 08/17/23 Range/Units 11:49 RBC (3.80-5.40) m/uL MCV (80.0-100.0) fL Lymphocytes # (1.0-4.8) k/uL ABG pH (7.35-7.45) ABG pCO2 (35-45) mmHg ABG HCO3 (21-25) mmol/L ABG Total CO2 (19-24) mmol/L ABG O2 Saturation (94-97) % Chloride (98-107) mmol/L Carbon Dioxide (22-30) mmol/L BUN (7-17) mg/dL Creatinine (0.52-1.04) mg/dL Glucose (74-99) mg/dL POC Glucose (mg/dL) 158 H (70-110) mg/dL Calcium (8.4-10.2) mg/dL Microbiology - Last 24 Hours (Table) 08/13/23 13:30 Gram Stain - Preliminary Sputum Assessment and Plan (1) Acute respiratory failure Current Visit: Yes Status: Acute Code(s): J96.00 - ACUTE RESPIRATORY FAILURE, UNSP W HYPOXIA OR HYPERCAPNIA SNOMED Code(s): 95309815 (2) HIV disease Current Visit: No Status: Acute Code(s): B20 - HUMAN IMMUNODEFICIENCY VIRUS [HIV] DISEASE SNOMED Code(s): 81591006 Plan: 1patient presented to hospital with increasing shortness of breath which is likely multifactorial in this patient who did have a history of COPD and likely COPD is a patient with a tracheobronchitis underlying pneumonia less likely but not entirely excluded 2-patient did have a CT angiogram of the chest that was negative for PE did not show any evidence of pneumonia or interstitial infiltrate 3-patient did have a penicillin allergy that will limit the number of antibioti cs safe to use 4-patient sputum is growing Rimma which is likely colonization, pneumocystis and Legionella antigens were negative, We will discontinue cefepime and monitor closely off antibiotic therapy continue the [employer] for HIV Dictation was produced using [employer] dictation software. please excuse any grammatical, word or spelling errors. Time with Patient: Less than 30
[2023-08-17 17:37] LABS: Glucose,Whole Blood 127 mg/dL (70-110)
[2023-08-17 23:43] LABS: Glucose,Whole Blood 151 mg/dL (70-110)
[2023-08-18 05:11] LABS: Basophils % (A) 0 %; Eosinophils % (A) 0 %; HGB 11.9 gm/dL (11.4-16.0); Hypochromasia Slight; Lymphocytes # (A) 0.4 k/uL (1.0-4.8); Lymphocytes % (A) 7 %; MCH 33.8 pg (25.0-35.0); MCHC 32.3 g/dL (31.0-37.0); MCV 104.8 fL (80.0-100.0); Macrocytosis Slight; Mean Platelet Volume 7.9; Monocytes # (A) 0.2 k/uL (0-1.0); Monocytes % (A) 4 %; Neutrophils # (A) 5.2 k/uL (1.3-7.7); Neutrophils % (A) 88 %; Platelet Count 216 k/uL (150-450); RBC 3.53 m/uL (3.80-5.40); RDW 13.6 % (11.5-15.5); WBC 5.9 k/uL (3.8-10.6)
[2023-08-18 05:29] LABS: African American GFR (CKD) >90 (>60 ml/min/1.73 sqM); Anion Gap -2 mmol/L; Blood Urea Nitrogen 30 mg/dL (7-17); Calcium 8.2 mg/dL (8.4-10.2); Carbon Dioxide 36 mmol/L (22-30); Chloride 107 mmol/L (98-107); Glucose 155 mg/dL (74-99); Non-African American GFR(CKD) >90 (>60 ml/min/1.73 sqM); Potassium 4.6 mmol/L (3.5-5.1); Sodium 141 mmol/L (137-145)
[2023-08-18 05:43] LABS: Glucose,Whole Blood 146 mg/dL (70-110)
[2023-08-18 05:44] LABS: ABG Base Excess 10.9 mmol/L; ABG HCO3 37 mmol/L (21-25); ABG Oxygen Saturation 97.2 % (94-97); ABG PCO2 66 mmHg (35-45); ABG PH 7.35 (7.35-7.45); ABG PO2 85 mmHg (83-108); ABG TCO2 39 mmol/L (19-24); Allen Test Performed? Yes
--- NOTE | 2023-08-18 08:31 | XR ---
EXAMINATION TYPE: XR chest 1V portable DATE OF EXAM: 08/18/2023 COMPARISON: 08/17/2023 INDICATION: Assess lungs short of breath TECHNIQUE: Single frontal view of the chest is obtained. FINDINGS: The heart size is normal. The pulmonary vasculature is normal. There is minimal right pleural effusion, tiny left pleural effusion is present. There is endotracheal tube and nasogastric tube are in position. IMPRESSION: 1. Minimal pleural effusions. 2. Lines and catheters discussed above
[2023-08-18 12:16] LABS: Glucose,Whole Blood 158 mg/dL (70-110)
--- NOTE | 2023-08-18 13:23 | P.PN ---
Subjective Progress Note Date: 08/18/23 Principal diagnosis: Acute hypoxic respiratory failure secondary to acute exacerbation of COPD This is a 52-year-old female patient with known history of COPD. The patient is maintained on Trelegy Ellipta on outpatient basis and she also has a DuoNeb nebulized treatment to be used on an as-needed basis. She is known to have HIV and currently she is on Biktarvy followed up by Dr. Salguero on outpatient basis regarding her HIV. She is not aware of her recent CD4 counts and viral loads. She has been having issues with increased respiratory distress and SURGICAL CORSETIER exacerbation for the past 2 to 3 weeks. She received several rounds of antibiotics and steroids for our office for SURGICAL CORSETIER exacerbation she did not encounter any significant improvement. She ultimately came into the hospital for increased shortness of breath. She was briefly placed on BiPAP and the patient is currently on oxygen at 6 L/min nasal cannula with a pulse ox of 98%. She is quite short of breath even at rest. Not using accessory muscles of breathing. Sodium levels at 126, potassium is 4.3, bicarb is 29, BUN is at 8 with a creatinine of 0.39. WBC count of 4.7 with a hemoglobin of 14.5 and a platelet count of 241. The viral screen came back negative. The chest x-ray shows no acute abnormalities. There is hyperinflation consistent with COPD. Scattered senescent parenchymal changes are seen bilaterally. Findings are essentially consistent with COPD. She was started on bronchodilators with D uoNeb updrafts. She is also on IV Solu-Medrol. She was started on Zithromax as an empiric antibiotic coverage and she is also normal saline at rate of 75 cc an hour. No frequent hospital admissions for COPD exacerbation. Her last admission to the hospital was back in 2021 essentially same presentation. She has been trying to quit smoking and she has not smoked for the past several months. She has been smoking since the age of 11 and she carries more than [id number] smoking history. On 08/11/2023, the patient is being seen for a follow-up. The patient was hospitalized for an acute Exacerbation the patient is feeling better on today's evaluation this bronchospastic and wheezy. She is known to have HIV. Viral constant CD4 counts are still pending for now. She is currently on Zithromax, IV Solu-Medrol, DuoNeb nebulized treatments [id number]. She has failed outpatient treatment for that reason the patient was hospitalized. No fever. No altered mentation. No other new complaints otherwise for now. Oxygenation is stable on 3 L O2 nasal cannula with a pulse ox of 98%. On today's evaluation of 08/12/2023, the patient reports limited improvement since yesterday. Still bronchospastic and wheezy and continues to be short of breath. Maintained on Symbicort and DuoNeb updrafts and maintained on IV Solu- Medrol 60 mg every 6 hours. She remains on empiric antibiotic coverage with IV Zithromax. No nausea vomiting or diarrhea. BUN is at 19 with a creatinine of 0.5 and a sodium levels at 138. No other significant events otherwise for now. The patient has a impaired CD4 count of 81. As such, the patient is high immunosuppressed and she may be potentially at risk of opportunistic infection. Patient continue antiretroviral treatment. Obtain a follow-up chest x-ray tomorrow. On 08/13/2023, the patient is quite lethargic on a BiPAP. Events from yesterday was noted. The patient became progressively more short of breath. She became restless, anxious, along with increased agitation and respiratory distress. The patient accordingly was placed on a BiPAP at a pressure of 12 over 5 cm of water and currently she is on #2 of 60%. She is generating a tidal volume of around about 400 with a minute ventilation of 7.4. Respirate is currently at 18. She is actively bronchospastic and wheezy. Blood gases that was done before the BiPAP utilization showed a pH of 7.24 with a pCO2 of 98 and pO2 of 69. Rest of the labs from today are still pending. A repeat chest x-ray was done this morning and it shows no evidence of any acute cardiopulmonary process. The patient remains on bronchodilators. The patient remains on IV Solu-Medrol 60 mg every 6 hours. As mentioned earlier, her CD4 count was low at 81. Nevertheless, no indication for any opportunistic infections at this point in time. Her temperature is low and the patient is afebrile and hemodynamically stable. She did receive Ativan 1 mg and she seems to be much more comfortable and synchronous with the BiPAP treatment. Will transfer the patient to the intensive care unit. Will repeat her blood gas. Use Precedex if needed. Patient was placed today on 08/14/2023, patient was admitted few days ago, however yesterday patient was intubated and required mechanical ventilation. Patient is now on assist-control rate of 16 tidal volume 350 FiO2 45% and PEEP of 5 ABG on 40% and rate of 16 showed a pO2 of 59 pCO2 51 pH of 7.47 hence I increased the FiO2 to 45% and cut down the rate to 14. Patient will be allowed to have more permissive hypercapnia patient is still requiring significant amount of sedation including propofol at 50 mcg/kg/min Nimbex at 2 mcg/kg/min she is also on Dilaudid [id number], on Lovenox enteral feeding, and IV fluid at 0.9 normal saline at 75 cc/h. Patient is not requiring any pressors or any inotropes. Patient is immunocompromise, she does have history of HIV, and she has very low CD4 count of 81. She is definitely high risk for opportunistic infections, infectious disease was consulted. Considering her gases and considering her physical exam findings, patient is not quite ready for weaning, and I have no plans to wean and extubate today. I will keep the patient presently on Nimbex, she got intubated last night, and will continue broncho dilators, continue steroids, and continue enteral feeding/nutritional support. Chest x-ray this morning showed emphysematous changes, no acute pulmonary process. CT of the brain showed a focal area of hypoattenuation involving the inferior right temporal lobe.May represent an infarct, possibly chronic. BBC count today is 9.2 hemoglobin is 12.5 basic metabolic profile is normal bicarb is 37, renal profile is normal. Patient was reevaluated today on 08/15/2023, remains intubated and mechanically ventilated, remains in the ICU, she is on assist-control rate of 14 tidal volume 350 FiO2 45% PEEP of 5 ABG showed a pO2 of 165 pCO2 76 pH of 7.29. ABG showed a pO2 of 165 pCO2 76 pH of 7.29, hence FiO2 was cut down to 35% and rate increased up to 18. Remains on propofol at 50 mcg/kg/min, Nimbex at 2 mcg/kg/min, she is also on normal saline at 75 cc/h and receiving vital AF . Today my plan is to discontinue Nimbex, and likely start the patient on fentanyl at 0.5 mcg/kg/h. Antibiotics beltran the patient remains on cefepime and Levaquin. For some reason the infectious disease physician ordered a CT angiogram of the chest yesterday, although her presentation was clearly a presentation of COPD and the presentation clearly explains her clinical picture, CT angiogram of course showed no evidence of pulmonary embolism, it did show a 9 mm nodule which is something needs to be followed on outpatient basis, and possibly repeat CT of the chest in 6 months. Or at least try to retrieve any old scans on this patient in the past and see if this nodule was present before nonetheless the p atient will need a low-dose CT of the chest on annual basis anyway. Labs today showed WBC count of 4.2 hemoglobin 10.3, basic metabolic profile is normal renal profile is normal. Procalcitonin is less than 0.02 patient was seen by infectious disease and he kept the patient empirically on Levaquin and cefepime Patient was elevated today on 08/16/2023, remains in the ICU, intubated and mechanically ventilated. Remains on assist-control rate of 18 tidal volume 350 FiO2 35% PEEP of 5 ABG showed a pO2 of 103 pCO2 68 pH of 7.31, hence no changes were made in vent settings. Patient continues to have relatively high peak airway pressures in the high 30s. Continues to be tight and seems to have poor air exchange. Yesterday the patient was given a trial off Nimbex, however could not tolerate going off Nimbex in spite of using propofol fentanyl and Versed. Patient had to go back on Nimbex yesterday because of extreme agitation and she was not synchronous with the ventilator, noted to be tachypneic, tachycardic, and she was bucking the ventilator. Not to mention she was developing signif icantly high airway pressure. Today the patient is back on Nimbex at 2 mcg/kg/min Fentanyl 1 mcg/kg/h propofol 60 mcg/kg/min she is receiving vital AF she is also 1.9 normal saline at 75 cc/h. Remains on antibiotics in the form of Levaquin and cefepime. Her cultures have been negative including BAL culture, she did have Rimma, doubt any significance, I infectious disease is addressing. Considering what I have noted yesterday when the patient was off Nimbex, and considering her overall clinical condition today, I have no plans to discontinue discontinue Nimbex today. Will continue with the present cocktail sedation including Nimbex fentanyl and propofol, and will continue mechanical ventilation without any major change. Also continue antibiotics. And bronchodilators as well as IV Solu-Medrol. Reevaluate today on 08/17/2023, patient remains in the ICU, intubated and mechanically ventilated. Remains on assist-control rate of 18 tidal volume 350 FiO2 35% and PEEP of 5 ABG showed a pO2 of 102 pCO2 65 pH of 7.33. Chest x-ray continues to show no evidence of any active process. Patient remains on propofol at 60 mcg/kg/min, Nimbex at 2 mcg/kg/min Fentanyl at 1 mcg/kg/h patient is receiving vital AF at she is remains on cefepime and Levaquin as per ID on the case. Today I plan to discontinue Nimbex and see if we could control patient's agitation adequately will fentanyl propofol and Versed if needed. Have tried in the past doing this, could not ventilate the patient without having to use Nimbex. However will try again to discontinue Nimbex and try to manage the patient with fentanyl propofol and Versed if possible. Otherwise I will place her back on Nimbex. Patient is hemodynamically stable, she is not requiring any pressors. She is receiving antibiotics is also receiving enteral feeding, and she is on GI and DVT prophylaxis. Reevaluate today on 08/18/2023, patient remains in the ICU, intubated and mechanically ventilated, on assist-control rate of 18 tidal volume 350 FiO2 35% PEEP of 5 ABG showed a pO2 of 85 pCO2 66 pH of 7.35 hence no changes were made in ventilator settings. Patient remains on fentanyl at 2 mcg/kg/h, Versed 4 mg/h propofol at 70 mcg/kg/min she is off Nimbex now for the last 24 hours, and able to control patient with sedation as such. Patient is on vital AF , the plan is to cut down her propofol to 50 and increase her Versed if needed. No plans to wean and extubate today, however will start possibly attempting sedation holidays beginning tomorrow. Chest x-ray continues to show no evidence of active disease. WBC count is 5.9 hemoglobin is 11.9 basic metabolic profile is normal renal profile is normal Objective - Vital Signs Vital signs: Vital Signs Temp 97.1 F L 08/18/23 12:00 Pulse 83 08/18/23 12:00 Resp 18 08/18/23 12:00 BP 118/71 08/18/23 12:00 Pulse Ox 96 08/18/23 12:00 FiO2 35 08/18/23 11:33 Intake & Output 08/17/23 08/18/23 08/18/23 18:59 06:59 18:59 Intake Total 2109.529 1761 682.874 Output Total 550 780 260 Balance 1559.529 981 422.874 Weight 68.2 kg 68.2 kg Intake: IV 1036 1014 312 Levofloxacin 750Mg-D5w 100 Pmx 750 mg In Dextrose/ Water 1 150ml.bag @ 100 mls/hr IVPB Q24H [facility] Rx#: [id number] Normal Saline Pressure 36 39 12 Bag Sodium Chloride 0.9% 1, 900 975 300 000 ml @ 75 mls/hr IV . [id number] [facility] Rx#:[id number] Intake, IV Titration 641.529 441 256.874 Amount Cefepime 2 gm In Sodium 100 Chloride 0.9% 100 ml @ 25 mls/hr IVPB Q8HR [facility] Rx# :[id number] Cisatracurium 200 mg In 127.292 Sodium Chloride 0.9% 180 ml @ 2 MCG/KG/MIN 7.212 mls/hr IV .Q24H [facility] Rx#: [id number] Midazolam HCl 50 mg In 22.318 41 50.317 Sodium Chloride 0.9% 40 ml @ 1 MG/HR 1 mls/hr IV .Q24H [facility] Rx#:[id number] fentaNYL (PF). 1,000 mcg 100.000 100 100 In Sodium Chloride 0.9% 80 ml @ 0.5 MCG/KG/HR 3. 005 mls/hr IV .Q24H [facility] Rx#:[id number] propofoL 1,000 mg In 291.919 300 106.557 Empty Bag 1 bag @ 15 MCG/ KG/MIN 5.715 mls/hr IV . [id number] [facility] Rx#:[id number] Tube Feeding 252 273 84 Other 180 33 30 Output: Urine 550 780 260 Other: Voiding Method Indwelling Catheter Indwelling Catheter ABP, PAP, CO, CI - Last Documented Arterial Blood Pressure 123/61 - Exam General: Revealed 52-year-old female intubated mechanically ventilated sedated, not paralyzed today. Skin: Skin is warm and dry and no rashes or lesions are noted. Eye: Pupils are equal, round and reactive to light, extra-ocular movements are intact Ears, nose, mouth and throat: There are moist mucous membranes and no oral lesions. Endotracheal tube and orogastric tubes are intact. Neck: The neck is supple, there is no tenderness or JVD. Cardiovascular: Normal S1-S2, no S3 gallop. No murmur. Respiratory: Decreased breath sounds at the bases, no rhonchi no wheezes. Gastrointestinal: Soft nontender no megaly no rebound no guarding Musculoskeletal: No deformities noted. Neurological: Could not not assess patient is sedated Psychiatric: Could not assess patient is sedated - Labs CBC & Chem 7: 08/18/23 04:40 08/18/23 04:40 Labs: Abnormal Lab Results - Last 24 Hours (Table) 08/17/23 08/17/23 08/18/23 Range/Units 17:36 23:42 04:40 RBC 3.53 L (3.80-5.40) m/uL MCV 104.8 H (80.0-100.0) fL Lymphocytes # 0.4 L (1.0-4.8) k/uL ABG pCO2 (35-45) mmHg ABG HCO3 (21-25) mmol/L ABG Total CO2 (19-24) mmol/L ABG O2 Saturation (94-97) % Carbon Dioxide (22-30) mmol/L BUN (7-17) mg/dL Creatinine (0.52-1.04) mg/dL Glucose (74-99) mg/dL POC Glucose (mg/dL) 127 H 151 H (70-110) mg/dL Calcium (8.4-10.2) mg/dL 08/18/23 08/18/23 08/18/23 Range/Units 04:40 05:40 05:42 RBC (3.80-5.40) m/uL MCV (80.0-100.0) fL Lymphocytes # (1.0-4.8) k/uL ABG pCO2 66 H (35-45) mmHg ABG HCO3 37 H (21-25) mmol/L ABG Total CO2 39 H (19-24) mmol/L ABG O2 Saturation 97.2 H (94-97) % Carbon Dioxide 36 H (22-30) mmol/L BUN 30 H (7-17) mg/dL Creatinine 0.40 L (0.52-1.04) mg/dL Glucose 155 H (74-99) mg/dL POC Glucose (mg/dL) 146 H (70-110) mg/dL Calcium 8.2 L (8.4-10.2) mg/dL 08/18/23 Range/Units 12:14 RBC (3.80-5.40) m/uL MCV (80.0-100.0) fL Lymphocytes # (1.0-4.8) k/uL ABG pCO2 (35-45) mmHg ABG HCO3 (21-25) mmol/L ABG Total CO2 (19-24) mmol/L ABG O2 Saturation (94-97) % Carbon Dioxide (22-30) mmol/L BUN (7-17) mg/dL Creatinine (0.52-1.04) mg/dL Glucose (74-99) mg/dL POC Glucose (mg/dL) 158 H (70-110) mg/dL Calcium (8.4-10.2) mg/dL Microbiology - Last 24 Hours (Table) 08/13/23 13:30 Fungal Culture - Preliminary Bronchial Washings - Random Rimma albicans 08/13/23 13:30 Gram Stain - Final Sputum Sputum Culture - Final Rimma albicans Assessment and Plan Assessment: Impression: Acute hypoxic respiratory failure secondary to acute exacerbation of COPD requiring intubation mechanical ventilation on 08/13/2023. Advanced COPD Incidental finding of a left upper lobe 9 mm nodule seen on CT of the chest, needs outpatient follow History of HIV, on biktarvy, patient has very low CD4 count, she is prone to opportunistic infections, cultures have been negative from BAL, patient is empirically on cefepime and Levaquin Status post bronchoscopy and BAL 08/12, nondiagnostic Rimma in the sputum/BAL, doubt significance Recommendation: Continue sedation for now with fentanyl, propofol, and Versed, keep patient off Nimbex. Continue same ventilatory settings and ventilatory support Continue antibiotics Continue GI and DVT prophylaxis Continue nutritional support/enteral feeding Continue bronchodilators and steroids including Solu-Medrol 60 mg IV push every 6 hours Continue to monitor daily labs Remains critically ill Will start sedation interruption and sedation holidays in the next 24 hours Considering her severe COPD may eventually require trach and PEG tube placement but that is yet to be decided early next week. Critical care time is over 30 minutes Will continue tofollow Time with Patient: Greater than 30
--- NOTE | 2023-08-18 14:47 | P.PN ---
Subjective Progress Note Date: 08/18/23 52-year-old female presenting to the emergency department with difficulty breathing. Symptoms have been present for the past 3 days. Occasional cough, nonproductive. No fever or recent upper respiratory infection. No calf pain or leg swelling. Patient does have history of similar symptoms previously a ssociated with COPD. Patient is a former smoker, patient has more than 40 pack years history of smoking. Sodium levels at 126, potassium is 4.3, bicarb is 29, BUN is at 8 with a creatinine of 0.39. WBC count of 4.7 with a hemoglobin of 14.5 and a platelet count of 241. The viral screen came back negative. The chest x-ray shows no acute abnormalities. There is hyperinflation consistent with COPD. Scattered senescent parenchymal changes are seen bilaterally. Findings are essentially consistent with COPD. She was briefly placed on BiPAP and the patient is currently on oxygen at 6 L/min nasal cannula with a pulse ox of 98%. She is quite short of breath even at rest. Not using accessory muscles of breathing. She was started on bronchodilators with DuWoo salgadorafts. She is also on IV Solu-Medrol. She was started on Zithromax as an empiric antibiotic coverage and she is also normal saline at rate of 75 cc an hour. 08/13/2023 Patient is seen and evaluated in room at bedside; has been transferred to selective care unit; patient was getting short of breath and anxious with increasing agitation; patient was transferred to stepdown unit and placed on BiPAP --Patient continuing to be more lethargic this morning; evaluated by critical care service -- Chest x-ray completed this morning is negative for any acute process -Patient is currently on IV Solu-Medrol, bronchodilator nebulizer treatments and antibiotic therapy -- Patient is breathing comfortably with BiPAP; critical care planning to transfer patient to ICU for close monitoring with further recommendations once repeat blood gases are available 08/13. Patient seen and examined. Continues to be intubated. Patient history of HIV. Currently on propofol. Getting tube feeding as well 08/14. Patient seen and examined. Continues to be intubated. Blood work this morning showed WBC 4.2, hemoglobin 10.3, platelet count 187, sodium 130, potassium 4.3, BUN 25, creatinine 0.47. Antibiotics changed to IV cefepime and Levaquin 08/15. Patient seen examined. Continues to be intubated in the ICU, currently on propofol, Nimbex and fentanyl. Blood work done this morning showed WBC 5, hemoglobin 12, platelet count 234, sodium 139, potassium 4.3, BUN 27, creatinine 0.47 08/16. Patient seen and examined. Currently in ICU. Blood work done this morning showed WBC 6.2, hemoglobin 12, platelet count 231, sodium 140, potassium 4.5, BUN 29, creatinine 0.49. Nimbex was discontinued, continues to be on propofol and fentanyl. 08/17. Patient seen and examined. Currently on Versed, fentanyl and propofol. REVIEW OF SYSTEMS: Intubated PHYSICAL EXAMINATION: GENERAL: The patient is intubated HEENT: Pupils are round and equally reacting to light. EOMI. No scleral icterus. No conjunctival pallor. Normocephalic, atraumatic. No pharyngeal erythema. No thyromegaly. CARDIOVASCULAR: S1 and S2 present. No murmurs, rubs, or gallops. PULMONARY: Chest is clear to auscultation, no wheezing or crackles. ABDOMEN: Soft, nontender, nondistended, normoactive bowel sounds. No palpable organomegaly. MUSCULOSKELETAL: No joint swelling or deformity. EXTREMITIES: No cyanosis, clubbing, or pedal edema. NEUROLOGICAL: Intubated and sedated SKIN: No rashes. Assessment and plan Acute exacerbation of chronic COPD Acute hypoxemic hypercapnic respiratory failure Pneumonia Advanced COPD at baseline History of smoking History of HIV currently on Biktarvy. Viral count and CD4 counts are not known. No previous history of a persistent infections. The patient has not been receiving any form of antibiotic treatments such as Bactrim. Her infectious disease doctor is Dr. Salguero. The CD4 count is at 81 Monitor vital signs Monitor CBC Monitor CMP Continue telemetry monitoring Aggressive bronchopulmonary hygiene Continue vent management per ICU Continue IV Solu-Medrol Continue IV Levaquin Continue breathing treatments Continue tube feeding Critical care following ID following Labs and medication were reviewed.. Continue same treatment. Continue with symptomatic treatment. Resume home medication. Monitor labs and vitals. DVT and GI prophylaxis. Further recommendations as per clinical course of the patient Dictation was produced using [employer] dictation software. please excuse any grammatical, word or spelling errors. Objective - Vital Signs Vital signs: Vital Signs Temp 97.1 F L 08/18/23 12:00 Pulse 82 08/18/23 14:00 Resp 18 08/18/23 14:00 BP 118/71 08/18/23 12:00 Pulse Ox 96 08/18/23 14:00 FiO2 35 08/18/23 12:00 Intake & Output 08/17/23 08/18/23 08/18/23 18:59 06:59 18:59 Intake Total 2109.529 1761 1011.957 Output Total 550 780 410 Balance 1559.529 981 601.957 Weight 68.2 kg 68.2 kg Intake: IV 1036 1014 546 Levofloxacin 750Mg-D5w 100 Pmx 750 mg In Dextrose/ Water 1 150ml.bag @ 100 mls/hr IVPB Q24H [facility] Rx#: [id number] Normal Saline Pressure 36 39 21 Bag Sodium Chloride 0.9% 1, 900 975 525 000 ml @ 75 mls/hr IV . [id number] [facility] Rx#:[id number] Intake, IV Titration 641.529 441 258.957 Amount Cefepime 2 gm In Sodium 100 Chloride 0.9% 100 ml @ 25 mls/hr IVPB Q8HR [facility] Rx# :[id number] Cisatracurium 200 mg In 127.292 Sodium Chloride 0.9% 180 ml @ 2 MCG/KG/MIN 7.212 mls/hr IV .Q24H [facility] Rx#: [id number] Midazolam HCl 50 mg In 22.318 41 52.400 Sodium Chloride 0.9% 40 ml @ 1 MG/HR 1 mls/hr IV .Q24H [facility] Rx#:[id number] fentaNYL (PF). 1,000 mcg 100.000 100 100 In Sodium Chloride 0.9% 80 ml @ 0.5 MCG/KG/HR 3. 005 mls/hr IV .Q24H [facility] Rx#:[id number] propofoL 1,000 mg In 291.919 300 106.557 Empty Bag 1 bag @ 15 MCG/ KG/MIN 5.715 mls/hr IV . [id number] [facility] Rx#:[id number] Tube Feeding 252 273 147 Other 180 33 60 Output: Urine 550 780 410 Other: Voiding Method Indwelling Catheter Indwelling Catheter ABP, PAP, CO, CI - Last Documented Arterial Blood Pressure 129/63 - Labs CBC & Chem 7: 08/18/23 04:40 08/18/23 04:40 Labs: Abnormal Lab Results - Last 24 Hours (Table) 08/17/23 08/17/23 08/18/23 Range/Units 17:36 23:42 04:40 RBC 3.53 L (3.80-5.40) m/uL MCV 104.8 H (80.0-100.0) fL Lymphocytes # 0.4 L (1.0-4.8) k/uL ABG pCO2 (35-45) mmHg ABG HCO3 (21-25) mmol/L ABG Total CO2 (19-24) mmol/L ABG O2 Saturation (94-97) % Carbon Dioxide (22-30) mmol/L BUN (7-17) mg/dL Creatinine (0.52-1.04) mg/dL Glucose (74-99) mg/dL POC Glucose (mg/dL) 127 H 151 H (70-110) mg/dL Calcium (8.4-10.2) mg/dL 08/18/23 08/18/23 08/18/23 Range/Units 04:40 05:40 05:42 RBC (3.80-5.40) m/uL MCV (80.0-100.0) fL Lymphocytes # (1.0-4.8) k/uL ABG pCO2 66 H (35-45) mmHg ABG HCO3 37 H (21-25) mmol/L ABG Total CO2 39 H (19-24) mmol/L ABG O2 Saturation 97.2 H (94-97) % Carbon Dioxide 36 H (22-30) mmol/L BUN 30 H (7-17) mg/dL Creatinine 0.40 L (0.52-1.04) mg/dL Glucose 155 H (74-99) mg/dL POC Glucose (mg/dL) 146 H (70-110) mg/dL Calcium 8.2 L (8.4-10.2) mg/dL 08/18/23 Range/Units 12:14 RBC (3.80-5.40) m/uL MCV (80.0-100.0) fL Lymphocytes # (1.0-4.8) k/uL ABG pCO2 (35-45) mmHg ABG HCO3 (21-25) mmol/L ABG Total CO2 (19-24) mmol/L ABG O2 Saturation (94-97) % Carbon Dioxide (22-30) mmol/L BUN (7-17) mg/dL Creatinine (0.52-1.04) mg/dL Glucose (74-99) mg/dL POC Glucose (mg/dL) 158 H (70-110) mg/dL Calcium (8.4-10.2) mg/dL Microbiology - Last 24 Hours (Table) 08/13/23 13:30 Fungal Culture - Preliminary Bronchial Washings - Random Rimam albicans 08/13/23 13:30 Gram Stain - Final Sputum Sputum Culture - Final Rimma albicans
--- NOTE | 2023-08-18 14:49 | P.PN ---
Subjective Progress Note Date: 08/18/23 Principal diagnosis: Reason for follow-up is HIV and possible pneumonia Patient is a 52-year-old female with a past medical history significant for HIV on Biktarvy, also with a history of COPD presenting to the hospital for evaluation of increasing shortness of breath patient did have worsening respiratory status got intubated, patient did have a CT angiogram of the chest that was negative for PE did shows a lung nodule did not mention any infiltrate or consolidation. On today's evaluation that is 08/18/2023,the patient remains to be afebrile, the patient remains to be debated on the vent FiO2 is currently at 35% no significant purulent secretions through the ET patient currently not on any pressor support no diarrhea has been reported slowly being taken off the paralytics. The patient white count is 5.8, creatinine 0.40 sputum and bronchial washings are growing Rimma albicans Objective - Vital Signs Vital signs: Vital Signs Temp 97.1 F L 08/18/23 12:00 Pulse 82 08/18/23 14:00 Resp 18 08/18/23 14:00 BP 118/71 08/18/23 12:00 Pulse Ox 96 08/18/23 14:00 FiO2 35 08/18/23 12:00 Intake & Output 08/17/23 08/18/23 08/18/23 18:59 06:59 18:59 Intake Total 2109.529 1761 1011.957 Output Total 550 780 410 Balance 1559.529 981 601.957 Weight 68.2 kg 68.2 kg Intake: IV 1036 1014 546 Levofloxacin 750Mg-D5w 100 Pmx 750 mg In Dextrose/ Water 1 150ml.bag @ 100 mls/hr IVPB Q24H [facility] Rx#: [id number] Normal Saline Pressure 36 39 21 Bag Sodium Chloride 0.9% 1, 900 975 525 000 ml @ 75 mls/hr IV . [id number] [facility] Rx#:[id number] Intake, IV Titration 641.529 441 258.957 Amount Cefepime 2 gm In Sodium 100 Chloride 0.9% 100 ml @ 25 mls/hr IVPB Q8HR [facility] Rx# :[id number] Cisatracurium 200 mg In 127.292 Sodium Chloride 0.9% 180 ml @ 2 MCG/KG/MIN 7.212 mls/hr IV .Q24H [facility] Rx#: [id number] Midazolam HCl 50 mg In 22.318 41 52.400 Sodium Chloride 0.9% 40 ml @ 1 MG/HR 1 mls/hr IV .Q24H [facility] Rx#:[id number] fentaNYL (PF). 1,000 mcg 100.000 100 100 In Sodium Chloride 0.9% 80 ml @ 0.5 MCG/KG/HR 3. 005 mls/hr IV .Q24H [facility] Rx#:[id number] propofoL 1,000 mg In 291.919 300 106.557 Empty Bag 1 bag @ 15 MCG/ KG/MIN 5.715 mls/hr IV . [id number] [facility] Rx#:[id number] Tube Feeding 252 273 147 Other 180 33 60 Output: Urine 550 780 410 Other: Voiding Method Indwelling Catheter Indwelling Catheter ABP, PAP, CO, CI - Last Documented Arterial Blood Pressure 129/63 - Exam GENERAL DESCRIPTION: Middle-aged female intubated on the vent RESPIRATORY SYSTEM: Unlabored breathing , decreased breath sounds at bases HEART: S1 S2 regular rate and rhythm , ABDOMEN: Soft , no tenderness EXTREMITIES: No edema feet - Labs CBC & Chem 7: 08/18/23 04:40 08/18/23 04:40 Labs: Abnormal Lab Results - Last 24 Hours (Table) 08/17/23 08/17/23 08/18/23 Range/Units 17:36 23:42 04:40 RBC 3.53 L (3.80-5.40) m/uL MCV 104.8 H (80.0-100.0) fL Lymphocytes # 0.4 L (1.0-4.8) k/uL ABG pCO2 (35-45) mmHg ABG HCO3 (21-25) mmol/L ABG Total CO2 (19-24) mmol/L ABG O2 Saturation (94-97) % Carbon Dioxide (22-30) mmol/L BUN (7-17) mg/dL Creatinine (0.52-1.04) mg/dL Glucose (74-99) mg/dL POC Glucose (mg/dL) 127 H 151 H (70-110) mg/dL Calcium (8.4-10.2) mg/dL 08/18/23 08/18/23 08/18/23 Range/Units 04:40 05:40 05:42 RBC (3.80-5.40) m/uL MCV (80.0-100.0) fL Lymphocytes # (1.0-4.8) k/uL ABG pCO2 66 H (35-45) mmHg ABG HCO3 37 H (21-25) mmol/L ABG Total CO2 39 H (19-24) mmol/L ABG O2 Saturation 97.2 H (94-97) % Carbon Dioxide 36 H (22-30) mmol/L BUN 30 H (7-17) mg/dL Creatinine 0.40 L (0.52-1.04) mg/dL Glucose 155 H (74-99) mg/dL POC Glucose (mg/dL) 146 H (70-110) mg/dL Calcium 8.2 L (8.4-10.2) mg/dL 08/18/23 Range/Units 12:14 RBC (3.80-5.40) m/uL MCV (80.0-100.0) fL Lymphocytes # (1.0-4.8) k/uL ABG pCO2 (35-45) mmHg ABG HCO3 (21-25) mmol/L ABG Total CO2 (19-24) mmol/L ABG O2 Saturation (94-97) % Carbon Dioxide (22-30) mmol/L BUN (7-17) mg/dL Creatinine (0.52-1.04) mg/dL Glucose (74-99) mg/dL POC Glucose (mg/dL) 158 H (70-110) mg/dL Calcium (8.4-10.2) mg/dL Microbiology - Last 24 Hours (Table) 08/13/23 13:30 Fungal Culture - Preliminary Bronchial Washings - Random Rimma albicans 08/13/23 13:30 Gram Stain - Final Sputum Sputum Culture - Final Rimma albicans Assessment and Plan (1) Acute respiratory failure Current Visit: Yes Status: Acute Code(s): J96.00 - ACUTE RESPIRATORY FAILURE, UNSP W HYPOXIA OR HYPERCAPNIA SNOMED Code(s): 88941659 (2) HIV disease Current Visit: No Status: Acute Code(s): B20 - HUMAN IMMUNODEFICIENCY VIRUS [HIV] DISEASE SNOMED Code(s): 34975130 Plan: 1patient presented to hospital with increasing shortness of breath which is likely multifactorial in this patient who did have a history of COPD and likely COPD is a patient with a tracheobronchitis underlying pneumonia less likely but not entirely excluded 2-patient did have a CT angiogram of the chest that was negative for PE did not show any evidence of pneumonia or interstitial infiltrate 3-patient did have a penicillin allergy that will limit the number of antibiotics safe to use 4-patient sputum is growing Rimma which is likely colonization, pneumocystis and Legionella antigens were negative 5-Pt to continue the Biktarvy for HIV, Levaquin can be safely discontinued Dictation was produced using [employer] dictation software. please excuse any grammatical, word or spelling errors. Time with Patient: Less than 30
[2023-08-18 18:09] LABS: Glucose,Whole Blood 155 mg/dL (70-110)
[2023-08-18 23:37] LABS: Glucose,Whole Blood 145 mg/dL (70-110)
[2023-08-19 04:56] LABS: ABG Base Excess 11.6 mmol/L; ABG HCO3 37 mmol/L (21-25); ABG PCO2 68 mmHg (35-45); ABG PH 7.35 (7.35-7.45); ABG PO2 84 mmHg (83-108); ABG TCO2 39 mmol/L (19-24)
[2023-08-19 04:58] LABS: Allen Test Performed? No
[2023-08-19 05:32] LABS: Glucose,Whole Blood 106 mg/dL (70-110)
[2023-08-19 05:35] LABS: African American GFR (CKD) >90 (>60 ml/min/1.73 sqM); Anion Gap -1 mmol/L; Blood Urea Nitrogen 33 mg/dL (7-17); Calcium 8.2 mg/dL (8.4-10.2); Carbon Dioxide 36 mmol/L (22-30); Chloride 108 mmol/L (98-107); Glucose 142 mg/dL (74-99); Non-African American GFR(CKD) >90 (>60 ml/min/1.73 sqM); Potassium 4.8 mmol/L (3.5-5.1); Sodium 143 mmol/L (137-145)
[2023-08-19 05:38] LABS: HCT 39.5 % (34.0-46.0); HGB 11.9 gm/dL (11.4-16.0); Hypochromasia Moderate; MCH 32.1 pg (25.0-35.0); MCHC 30.1 g/dL (31.0-37.0); MCV 106.7 fL (80.0-100.0); Macrocytosis Moderate; Mean Platelet Volume 8.3; Platelet Count 233 k/uL (150-450); RDW 13.4 % (11.5-15.5); WBC 7.3 k/uL (3.8-10.6)
--- NOTE | 2023-08-19 08:41 | XR ---
EXAMINATION TYPE: XR chest 1V portable DATE OF EXAM: 08/19/2023 Comparison: 08/18/2023 Clinical History: 52-year-old female COPD exacerbation Findings: ET and NG tubes are satisfactory. Left subclavian CVC tip lower SVC. Heart normal size. Hyperinflatio n. No consolidation or pleural effusion. Impression: COPD. No acute cardiopulmonary process.
--- NOTE | 2023-08-19 11:56 | P.PN ---
Subjective Progress Note Date: 08/19/23 Principal diagnosis: Acute hypoxic respiratory failure secondary to acute exacerbation of COPD This is a 52-year-old female patient with known history of COPD. The patient is maintained on Trelegy Ellipta on outpatient basis and she also has a DuoNeb nebulized treatment to be used on an as-needed basis. She is known to have HIV and currently she is on Biktarvy followed up by Dr. Salguero on outpatient basis regarding her HIV. She is not aware of her recent CD4 counts and viral loads. She has been having issues with increased respiratory distress and [employer] exacerbation for the past 2 to 3 weeks. She received several rounds of antibiotics and steroids for our office for [employer] exacerbation she did not encounter any significant improvement. She ultimately came into the hospital for increased shortness of breath. She was briefly placed on BiPAP and the patient is currently on oxygen at 6 L/min nasal cannula with a pulse ox of 98%. She is quite short of breath even at rest. Not using accessory muscles of breathing. Sodium levels at 126, potassium is 4.3, bicarb is 29, BUN is at 8 with a creatinine of 0.39. WBC count of 4.7 with a hemoglobin of 14.5 and a platelet count of 241. The viral screen came back negative. The chest x-ray shows no acute abnormalities. There is hyperinflation consistent with COPD. Scattered senescent parenchymal changes are seen bilaterally. Findings are essentially consistent with COPD. She was started on bronchodilators with D uoNeb updrafts. She is also on IV Solu-Medrol. She was started on Zithromax as an empiric antibiotic coverage and she is also normal saline at rate of 75 cc an hour. No frequent hospital admissions for COPD exacerbation. Her last admission to the hospital was back in 2021 essentially same presentation. She has been trying to quit smoking and she has not smoked for the past several months. She has been smoking since the age of 11 and she carries more than [id number] smoking history. On 08/11/2023, the patient is being seen for a follow-up. The patient was hospitalized for an acute Exacerbation the patient is feeling better on today's evaluation this bronchospastic and wheezy. She is known to have HIV. Viral constant CD4 counts are still pending for now. She is currently on Zithromax, IV Solu-Medrol, DuoNeb nebulized treatments [id number]. She has failed outpatient treatment for that reason the patient was hospitalized. No fever. No altered mentation. No other new complaints otherwise for now. Oxygenation is stable on 3 L O2 nasal cannula with a pulse ox of 98%. On today's evaluation of 08/12/2023, the patient reports limited improvement since yesterday. Still bronchospastic and wheezy and continues to be short of breath. Maintained on Symbicort and DuoNeb updrafts and maintained on IV Solu- Medrol 60 mg every 6 hours. She remains on empiric antibiotic coverage with IV Zithromax. No nausea vomiting or diarrhea. BUN is at 19 with a creatinine of 0.5 and a sodium levels at 138. No other significant events otherwise for now. The patient has a impaired CD4 count of 81. As such, the patient is high immunosuppressed and she may be potentially at risk of opportunistic infection. Patient continue antiretroviral treatment. Obtain a follow-up chest x-ray tomorrow. On 08/13/2023, the patient is quite lethargic on a BiPAP. Events from yesterday was noted. The patient became progressively more short of breath. She became restless, anxious, along with increased agitation and respiratory distress. The patient accordingly was placed on a BiPAP at a pressure of 12 over 5 cm of water and currently she is on #2 of 60%. She is generating a tidal volume of around about 400 with a minute ventilation of 7.4. Respirate is currently at 18. She is actively bronchospastic and wheezy. Blood gases that was done before the BiPAP utilization showed a pH of 7.24 with a pCO2 of 98 and pO2 of 69. Rest of the labs from today are still pending. A repeat chest x-ray was done this morning and it shows no evidence of any acute cardiopulmonary process. The patient remains on bronchodilators. The patient remains on IV Solu-Medrol 60 mg every 6 hours. As mentioned earlier, her CD4 count was low at 81. Nevertheless, no indication for any opportunistic infections at this point in time. Her temperature is low and the patient is afebrile and hemodynamically stable. She did receive Ativan 1 mg and she seems to be much more comfortable and synchronous with the BiPAP treatment. Will transfer the patient to the intensive care unit. Will repeat her blood gas. Use Precedex if needed. Patient was placed today on 08/14/2023, patient was admitted few days ago, however yesterday patient was intubated and required mechanical ventilation. Patient is now on assist-control rate of 16 tidal volume 350 FiO2 45% and PEEP of 5 ABG on 40% and rate of 16 showed a pO2 of 59 pCO2 51 pH of 7.47 hence I increased the FiO2 to 45% and cut down the rate to 14. Patient will be allowed to have more permissive hypercapnia patient is still requiring significant amount of sedation including propofol at 50 mcg/kg/min Nimbex at 2 mcg/kg/min she is also on Dilaudid [id number], on Lovenox enteral feeding, and IV fluid at 0.9 normal saline at 75 cc/h. Patient is not requiring any pressors or any inotropes. Patient is immunocompromise, she does have history of HIV, and she has very low CD4 count of 81. She is definitely high risk for opportunistic infections, infectious disease was consulted. Considering her gases and considering her physical exam findings, patient is not quite ready for weaning, and I have no plans to wean and extubate today. I will keep the patient presently on Nimbex, she got intubated last night, and will continue broncho dilators, continue steroids, and continue enteral feeding/nutritional support. Chest x-ray this morning showed emphysematous changes, no acute pulmonary process. CT of the brain showed a focal area of hypoattenuation involving the inferior right temporal lobe.May represent an infarct, possibly chronic. BBC count today is 9.2 hemoglobin is 12.5 basic metabolic profile is normal bicarb is 37, renal profile is normal. Patient was reevaluated today on 08/15/2023, remains intubated and mechanically ventilated, remains in the ICU, she is on assist-control rate of 14 tidal volume 350 FiO2 45% PEEP of 5 ABG showed a pO2 of 165 pCO2 76 pH of 7.29. ABG showed a pO2 of 165 pCO2 76 pH of 7.29, hence FiO2 was cut down to 35% and rate increased up to 18. Remains on propofol at 50 mcg/kg/min, Nimbex at 2 mcg/kg/min, she is also on normal saline at 75 cc/h and receiving vital AF . Today my plan is to discontinue Nimbex, and likely start the patient on fentanyl at 0.5 mcg/kg/h. Antibiotics beltran the patient remains on cefepime and Levaquin. For some reason the infectious disease physician ordered a CT angiogram of the chest yesterday, although her presentation was clearly a presentation of COPD and the presentation clearly explains her clinical picture, CT angiogram of course showed no evidence of pulmonary embolism, it did show a 9 mm nodule which is something needs to be followed on outpatient basis, and possibly repeat CT of the chest in 6 months. Or at least try to retrieve any old scans on this patient in the past and see if this nodule was present before nonetheless the p atient will need a low-dose CT of the chest on annual basis anyway. Labs today showed WBC count of 4.2 hemoglobin 10.3, basic metabolic profile is normal renal profile is normal. Procalcitonin is less than 0.02 patient was seen by infectious disease and he kept the patient empirically on Levaquin and cefepime Patient was elevated today on 08/16/2023, remains in the ICU, intubated and mechanically ventilated. Remains on assist-control rate of 18 tidal volume 350 FiO2 35% PEEP of 5 ABG showed a pO2 of 103 pCO2 68 pH of 7.31, hence no changes were made in vent settings. Patient continues to have relatively high peak airway pressures in the high 30s. Continues to be tight and seems to have poor air exchange. Yesterday the patient was given a trial off Nimbex, however could not tolerate going off Nimbex in spite of using propofol fentanyl and Versed. Patient had to go back on Nimbex yesterday because of extreme agitation and she was not synchronous with the ventilator, noted to be tachypneic, tachycardic, and she was bucking the ventilator. Not to mention she was developing signif icantly high airway pressure. Today the patient is back on Nimbex at 2 mcg/kg/min Fentanyl 1 mcg/kg/h propofol 60 mcg/kg/min she is receiving vital AF she is also 1.9 normal saline at 75 cc/h. Remains on antibiotics in the form of Levaquin and cefepime. Her cultures have been negative including BAL culture, she did have Rimma, doubt any significance, I infectious disease is addressing. Considering what I have noted yesterday when the patient was off Nimbex, and considering her overall clinical condition today, I have no plans to discontinue discontinue Nimbex today. Will continue with the present cocktail sedation including Nimbex fentanyl and propofol, and will continue mechanical ventilation without any major change. Also continue antibiotics. And bronchodilators as well as IV Solu-Medrol. Reevaluate today on 08/17/2023, patient remains in the ICU, intubated and mechanically ventilated. Remains on assist-control rate of 18 tidal volume 350 FiO2 35% and PEEP of 5 ABG showed a pO2 of 102 pCO2 65 pH of 7.33. Chest x-ray continues to show no evidence of any active process. Patient remains on propofol at 60 mcg/kg/min, Nimbex at 2 mcg/kg/min Fentanyl at 1 mcg/kg/h patient is receiving vital AF at she is remains on cefepime and Levaquin as per ID on the case. Today I plan to discontinue Nimbex and see if we could control patient's agitation adequately will fentanyl propofol and Versed if needed. Have tried in the past doing this, could not ventilate the patient without having to use Nimbex. However will try again to discontinue Nimbex and try to manage the patient with fentanyl propofol and Versed if possible. Otherwise I will place her back on Nimbex. Patient is hemodynamically stable, she is not requiring any pressors. She is receiving antibiotics is also receiving enteral feeding, and she is on GI and DVT prophylaxis. Reevaluate today on 08/18/2023, patient remains in the ICU, intubated and mechanically ventilated, on assist-control rate of 18 tidal volume 350 FiO2 35% PEEP of 5 ABG showed a pO2 of 85 pCO2 66 pH of 7.35 hence no changes were made in ventilator settings. Patient remains on fentanyl at 2 mcg/kg/h, Versed 4 mg/h propofol at 70 mcg/kg/min she is off Nimbex now for the last 24 hours, and able to control patient with sedation as such. Patient is on vital AF , the plan is to cut down her propofol to 50 and increase her Versed if needed. No plans to wean and extubate today, however will start possibly attempting sedation holidays beginning tomorrow. Chest x-ray continues to show no evidence of active disease. WBC count is 5.9 hemoglobin is 11.9 basic metabolic profile is normal renal profile is normal Patient was reevaluated today on 08/19/2023, remains in the ICU, intubated and mechanically ventilated, presently on assist-control rate of 18 tidal volume 350 FiO2 35% PEEP of 5 ABG showed a pO2 of 84 pCO2 68 pH of 7.35. Patient is close most likely to her baseline pCO2 in the 60s. Patient is on enteral feeding/vital HP she is also on propofol at 15 but the plan to increase up to 50 and discontinue Versed which is 3 mg/h at present patient is also on fentanyl 1 mcg/kg/h and an IV fluid at 75 cc/h in the form of saline. I am planning today to hold sedation, and assess mental status, but I am not planning to proceed to extubation. Her overall pulmonary status remains marginal at best, chest x-ray showed COPD but no evidence of pneumonia. WBC count is normal 7.3 hemoglobin is 11.9 basic metabolic profile is normal bicarb is 36 renal profile is normal Objective - Vital Signs Vital signs: Vital Signs Temp 98.3 F 08/19/23 08:00 Pulse 92 08/19/23 11:47 Resp 18 08/19/23 11:00 BP 114/72 08/19/23 00:00 Pulse Ox 99 08/19/23 11:00 FiO2 35 08/19/23 11:37 Intake & Output 08/18/23 08/19/23 08/19/23 18:59 06:59 18:59 Intake Total 7856.713 8670.539 549.883 Output Total 595 735 440 Balance 1073.202 750.539 109.883 Weight 68.2 kg 67.4 kg Intake: IV 858 936 390 Normal Saline Pressure 33 36 15 Bag Sodium Chloride 0.9% 1, 825 900 375 000 ml @ 75 mls/hr IV . [id number] [facility] Rx#:[id number] Intake, IV Titration 489.202 297.539 24.883 Amount Midazolam HCl 50 mg In 86.550 44.117 12.183 Sodium Chloride 0.9% 40 ml @ 1 MG/HR 1 mls/hr IV .Q24H [facility] Rx#:[id number] fentaNYL (PF). 1,000 mcg 200 116.794 In Sodium Chloride 0.9% 80 ml @ 0.5 MCG/KG/HR 3. 005 mls/hr IV .Q24H [facility] Rx#:[id number] propofoL 1,000 mg In 202.652 136.628 12.7 Empty Bag 1 bag @ 15 MCG/ KG/MIN 5.715 mls/hr IV . [id number] [facility] Rx#:[id number] Tube Feeding 231 252 105 Other 90 30 Output: Urine 595 735 440 Other: Voiding Method Indwelling Catheter Indwelling Catheter ABP, PAP, CO, CI - Last Documented Arterial Blood Pressure 119/63 - Exam General: Revealed 52-year-old female intubated mechanically ventilated sedated, on propofol and Versed well as fentanyl Skin: Skin is warm and dry and no rashes or lesions are noted. Eye: Pupils are equal, round and reactive to light, extra-ocular movements are intact Ears, nose, mouth and throat: There are moist mucous membranes and no oral lesions. Endotracheal tube and orogastric tubes are intact. Neck: The neck is supple, there is no tenderness or JVD. Cardiovascular: Normal S1-S2, no S3 gallop. No murmur. Respiratory: Good breath sound bilaterally no rhonchi no wheezes Gastrointestinal: Soft nontender no megaly no rebound no guarding Musculoskeletal: No deformities noted. Neurological: Could not not assess patient is sedated Psychiatric: Could not assess patient is sedated - Labs CBC & Chem 7: 08/19/23 04:50 08/19/23 04:50 Labs: Abnormal Lab Results - Last 24 Hours (Table) 08/18/23 08/18/23 08/18/23 Range/Units 12:14 18:07 23:36 RBC (3.80-5.40) m/uL MCV (80.0-100.0) fL MCHC (31.0-37.0) g/dL ABG pCO2 (35-45) mmHg ABG HCO3 (21-25) mmol/L ABG Total CO2 (19-24) mmol/L Chloride (98-107) mmol/L Carbon Dioxide (22-30) mmol/L BUN (7-17) mg/dL Creatinine (0.52-1.04) mg/dL Glucose (74-99) mg/dL POC Glucose (mg/dL) 158 H 155 H 145 H (70-110) mg/dL Calcium (8.4-10.2) mg/dL 08/19/23 08/19/23 08/19/23 Range/Units 04:50 04:50 04:50 RBC 3.70 L (3.80-5.40) m/uL MCV 106.7 H (80.0-100.0) fL MCHC 30.1 L (31.0-37.0) g/dL ABG pCO2 68 H (35-45) mmHg ABG HCO3 37 H (21-25) mmol/L ABG Total CO2 39 H (19-24) mmol/L Chloride 108 H (98-107) mmol/L Carbon Dioxide 36 H (22-30) mmol/L BUN 33 H (7-17) mg/dL Creatinine 0.40 L (0.52-1.04) mg/dL Glucose 142 H (74-99) mg/dL POC Glucose (mg/dL) (70-110) mg/dL Calcium 8.2 L (8.4-10.2) mg/dL Microbiology - Last 24 Hours (Table) 08/13/23 13:30 Fungal Culture - Preliminary Bronchial Washings - Random Rimma albicans 08/13/23 13:30 Gram Stain - Final Sputum Sputum Culture - Final Rimma albicans Assessment and Plan Assessment: Impression: Acute hypoxic respiratory failure secondary to acute exacerbation of COPD requiring intubation mechanical ventilation on 08/13/2023. Advanced COPD Incidental finding of a left upper lobe 9 mm nodule seen on CT of the chest, needs outpatient follow History of HIV,patient has very low CD4 count, she is prone to opportunistic infections, cultures have been negative from BAL, patient is empirically on Levaquin, her cefepime has been discontinued Status post bronchoscopy and BAL 08/12, nondiagnostic Rimma in the sputum/BAL, doubt significance Recommendation: Continue sedation but most likely the patient will be sedated only with propofol instead of propofol and Versed and continue fentanyl. Patient to be having sedation interruption today/sedation holiday, and will assess mental status In the meantime continue same ventilatory settings and ventilatory support Continue antibiotics, as per infectious disease on the case. Continue GI and DVT prophylaxis Continue nutritional support/enteral feeding Continue bronchodilators and steroids including Solu-Medrol 60 mg IV push every 6 hours Remains critically ill Daily sedation interruption will be started today. And assessment of mental status even assessment for weaning depending on the mental status Evaristo critically ill. Critical care time is over 30 minutes Will continue tofollow Time with Patient: Greater than 30
[2023-08-19 12:40] LABS: Glucose,Whole Blood 115 mg/dL (70-110)
--- NOTE | 2023-08-19 14:40 | P.PN ---
Subjective Progress Note Date: 08/19/23 52-year-old female presenting to the emergency department with difficulty breathing. Symptoms have been present for the past 3 days. Occasional cough, nonproductive. No fever or recent upper respiratory infection. No calf pain or leg swelling. Patient does have history of similar symptoms previously a ssociated with COPD. Patient is a former smoker, patient has more than 40 pack years history of smoking. Sodium levels at 126, potassium is 4.3, bicarb is 29, BUN is at 8 with a creatinine of 0.39. WBC count of 4.7 with a hemoglobin of 14.5 and a platelet count of 241. The viral screen came back negative. The chest x-ray shows no acute abnormalities. There is hyperinflation consistent with COPD. Scattered senescent parenchymal changes are seen bilaterally. Findings are essentially consistent with COPD. She was briefly placed on BiPAP and the patient is currently on oxygen at 6 L/min nasal cannula with a pulse ox of 98%. She is quite short of breath even at rest. Not using accessory muscles of breathing. She was started on bronchodilators with DuWoo salgadorafts. She is also on IV Solu-Medrol. She was started on Zithromax as an empiric antibiotic coverage and she is also normal saline at rate of 75 cc an hour. 08/13/2023 Patient is seen and evaluated in room at bedside; has been transferred to selective care unit; patient was getting short of breath and anxious with increasing agitation; patient was transferred to stepdown unit and placed on BiPAP --Patient continuing to be more lethargic this morning; evaluated by critical care service -- Chest x-ray completed this morning is negative for any acute process -Patient is currently on IV Solu-Medrol, bronchodilator nebulizer treatments and antibiotic therapy -- Patient is breathing comfortably with BiPAP; critical care planning to transfer patient to ICU for close monitoring with further recommendations once repeat blood gases are available 08/13. Patient seen and examined. Continues to be intubated. Patient history of HIV. Currently on propofol. Getting tube feeding as well 08/14. Patient seen and examined. Continues to be intubated. Blood work this morning showed WBC 4.2, hemoglobin 10.3, platelet count 187, sodium 130, potassium 4.3, BUN 25, creatinine 0.47. Antibiotics changed to IV cefepime and Levaquin 08/15. Patient seen examined. Continues to be intubated in the ICU, currently on propofol, Nimbex and fentanyl. Blood work done this morning showed WBC 5, hemoglobin 12, platelet count 234, sodium 139, potassium 4.3, BUN 27, creatinine 0.47 08/16. Patient seen and examined. Currently in ICU. Blood work done this morning showed WBC 6.2, hemoglobin 12, platelet count 231, sodium 140, potassium 4.5, BUN 29, creatinine 0.49. Nimbex was discontinued, continues to be on propofol and fentanyl. 08/17. Patient seen and examined. Currently on Versed, fentanyl and propofol. 08/18. Patient examined in the ICU. Currently intubated. critical care planning sedation holiday today.prognosis remains guarded REVIEW OF SYSTEMS: Intubated PHYSICAL EXAMINATION: GENERAL: The patient is intubated HEENT: Pupils are round and equally reacting to light. EOMI. No scleral icterus. No conjunctival pallor. Normocephalic, atraumatic. No pharyngeal erythema. No thyromegaly. CARDIOVASCULAR: S1 and S2 present. No murmurs, rubs, or gallops. PULMONARY: Chest is clear to auscultation, no wheezing or crackles. ABDOMEN: Soft, nontender, nondistended, normoactive bowel sounds. No palpable organomegaly. MUSCULOSKELETAL: No joint swelling or deformity. EXTREMITIES: No cyanosis, clubbing, or pedal edema. NEUROLOGICAL: Intubated and sedated SKIN: No rashes. Assessment and plan Acute exacerbation of chronic COPD Acute hypoxemic hypercapnic respiratory failure Pneumonia Advanced COPD at baseline History of smoking History of HIV currently on Biktarvy. Viral count and CD4 counts are not known. No previous history of a persistent infections. The patient has not been receiving any form of antibiotic treatments such as Bactrim. Her infectious disease doctor is Dr. Salguero. The CD4 count is at 81 Monitor vital signs Monitor CBC Monitor CMP Continue telemetry monitoring Aggressive bronchopulmonary hygiene Continue vent management per ICU Continue IV Solu-Medrol Continue IV Levaquin Continue breathing treatments Continue tube feeding Critical care following ID following prognosis remains guarded Labs and medication were reviewed.. Continue same treatment. Continue with symptomatic treatment. Resume home medication. Monitor labs and vitals. DVT and GI prophylaxis. Further recommendations as per clinical course of the patient Dictation was produced using [employer] dictation software. please excuse any grammatical, word or spelling errors. Objective - Vital Signs Vital signs: Vital Signs Temp 98.3 F 08/19/23 12:00 Pulse 101 H 08/19/23 13:00 Resp 18 08/19/23 13:00 BP 114/72 08/19/23 00:00 Pulse Ox 95 08/19/23 13:00 FiO2 3 08/19/23 12:00 Intake & Output 08/18/23 08/19/23 08/19/23 18:59 06:59 18:59 Intake Total 9617.407 7778.539 831.586 Output Total 595 735 540 Balance 1073.202 750.539 291.586 Weight 68.2 kg 67.4 kg Intake: IV 858 936 546 Normal Saline Pressure 33 36 21 Bag Sodium Chloride 0.9% 1, 825 900 525 000 ml @ 75 mls/hr IV . [id number] [facility] Rx#:[id number] Intake, IV Titration 489.202 297.539 48.586 Amount Midazolam HCl 50 mg In 86.550 44.117 12.183 Sodium Chloride 0.9% 40 ml @ 1 MG/HR 1 mls/hr IV .Q24H [facility] Rx#:[id number] fentaNYL (PF). 1,000 mcg 200 116.794 In Sodium Chloride 0.9% 80 ml @ 0.5 MCG/KG/HR 3. 005 mls/hr IV .Q24H [facility] Rx#:[id number] propofoL 1,000 mg In 202.652 136.628 36.403 Empty Bag 1 bag @ 15 MCG/ KG/MIN 5.715 mls/hr IV . [id number] [facility] Rx#:[id number] Tube Feeding 231 252 147 Other 90 90 Output: Urine 595 735 540 Other: Voiding Method Indwelling Catheter Indwelling Catheter Indwelling Catheter ABP, PAP, CO, CI - Last Documented Arterial Blood Pressure 126/66 - Labs CBC & Chem 7: 08/19/23 04:50 08/19/23 04:50 Labs: Abnormal Lab Results - Last 24 Hours (Table) 08/18/23 08/18/23 08/19/23 Range/Units 18:07 23:36 04:50 RBC 3.70 L (3.80-5.40) m/uL MCV 106.7 H (80.0-100.0) fL MCHC 30.1 L (31.0-37.0) g/dL ABG pCO2 (35-45) mmHg ABG HCO3 (21-25) mmol/L ABG Total CO2 (19-24) mmol/L Chloride (98-107) mmol/L Carbon Dioxide (22-30) mmol/L BUN (7-17) mg/dL Creatinine (0.52-1.04) mg/dL Glucose (74-99) mg/dL POC Glucose (mg/dL) 155 H 145 H (70-110) mg/dL Calcium (8.4-10.2) mg/dL 08/19/23 08/19/23 08/19/23 Range/Units 04:50 04:50 12:39 RBC (3.80-5.40) m/uL MCV (80.0-100.0) fL MCHC (31.0-37.0) g/dL ABG pCO2 68 H (35-45) mmHg ABG HCO3 37 H (21-25) mmol/L ABG Total CO2 39 H (19-24) mmol/L Chloride 108 H (98-107) mmol/L Carbon Dioxide 36 H (22-30) mmol/L BUN 33 H (7-17) mg/dL Creatinine 0.40 L (0.52-1.04) mg/dL Glucose 142 H (74-99) mg/dL POC Glucose (mg/dL) 115 H (70-110) mg/dL Calcium 8.2 L (8.4-10.2) mg/dL Microbiology - Last 24 Hours (Table) 08/13/23 13:30 Fungal Culture - Preliminary Bronchial Washings - Random Rimma albicans 08/13/23 13:30 Gram Stain - Final Sputum Sputum Culture - Final Rimma albicans
[2023-08-19 17:53] LABS: Glucose,Whole Blood 107 mg/dL (70-110)
--- NOTE | 2023-08-19 19:23 | P.PN ---
Subjective Progress Note Date: 08/19/23 Principal diagnosis: Reason for follow-up is HIV and possible pneumonia Patient is a 52-year-old female with a past medical history significant for HIV on Biktarvy, also with a history of COPD presenting to the hospital for evaluation of increasing shortness of breath patient did have worsening respiratory status got intubated, patient did have a CT angiogram of the chest that was negative for PE did shows a lung nodule did not mention any infiltrate or consolidation. On today's evaluation that is 08/19/2023,the patient remains to be afebrile, patient is on the vent FiO2 is currently at 35% sedation is slowly being weaned off no significant purulent secretions related the patient is hemodynamically stable not requiring any pressor support and no diarrhea has been reported. Patient white count 7.3, creatinine 0.40 Objective - Vital Signs Vital signs: Vital Signs Temp 98.3 F 08/19/23 08:00 Pulse 92 08/19/23 11:47 Resp 18 08/19/23 11:00 BP 114/72 08/19/23 00:00 Pulse Ox 99 08/19/23 11:00 FiO2 35 08/19/23 11:37 Intake & Output 08/18/23 08/19/23 08/19/23 18:59 06:59 18:59 Intake Total 6275.000 7400.539 549.883 Output Total 595 735 440 Balance 1073.202 750.539 109.883 Weight 68.2 kg 67.4 kg Intake: IV 858 936 390 Normal Saline Pressure 33 36 15 Bag Sodium Chloride 0.9% 1, 825 900 375 000 ml @ 75 mls/hr IV . [id number] [facility] Rx#:[id number] Intake, IV Titration 489.202 297.539 24.883 Amount Midazolam HCl 50 mg In 86.550 44.117 12.183 Sodium Chloride 0.9% 40 ml @ 1 MG/HR 1 mls/hr IV .Q24H [facility] Rx#:[id number] fentaNYL (PF). 1,000 mcg 200 116.794 In Sodium Chloride 0.9% 80 ml @ 0.5 MCG/KG/HR 3. 005 mls/hr IV .Q24H [facility] Rx#:[id number] propofoL 1,000 mg In 202.652 136.628 12.7 Empty Bag 1 bag @ 15 MCG/ KG/MIN 5.715 mls/hr IV . [id number] [facility] Rx#:[id number] Tube Feeding 231 252 105 Other 90 30 Output: Urine 595 735 440 Other: Voiding Method Indwelling Catheter Indwelling Catheter ABP, PAP, CO, CI - Last Documented Arterial Blood Pressure 119/63 - Exam GENERAL DESCRIPTION: Middle-aged female intubated on the vent RESPIRATORY SYSTEM: Unlabored breathing , decreased breath sounds at bases HEART: S1 S2 regular rate and rhythm , ABDOMEN: Soft , no tenderness EXTREMITIES: No edema feet Exam completed with the help of [employer] - Labs CBC & Chem 7: 08/19/23 04:50 08/19/23 04:50 Labs: Abnormal Lab Results - Last 24 Hours (Table) 08/18/23 08/18/23 08/18/23 Range/Units 12:14 18:07 23:36 RBC (3.80-5.40) m/uL MCV (80.0-100.0) fL MCHC (31.0-37.0) g/dL ABG pCO2 (35-45) mmHg ABG HCO3 (21-25) mmol/L ABG Total CO2 (19-24) mmol/L Chloride (98-107) mmol/L Carbon Dioxide (22-30) mmol/L BUN (7-17) mg/dL Creatinine (0.52-1.04) mg/dL Glucose (74-99) mg/dL POC Glucose (mg/dL) 158 H 155 H 145 H (70-110) mg/dL Calcium (8.4-10.2) mg/dL 08/19/23 08/19/23 08/19/23 Range/Units 04:50 04:50 04:50 RBC 3.70 L (3.80-5.40) m/uL MCV 106.7 H (80.0-100.0) fL MCHC 30.1 L (31.0-37.0) g/dL ABG pCO2 68 H (35-45) mmHg ABG HCO3 37 H (21-25) mmol/L ABG Total CO2 39 H (19-24) mmol/L Chloride 108 H (98-107) mmol/L Carbon Dioxide 36 H (22-30) mmol/L BUN 33 H (7-17) mg/dL Creatinine 0.40 L (0.52-1.04) mg/dL Glucose 142 H (74-99) mg/dL POC Glucose (mg/dL) (70-110) mg/dL Calcium 8.2 L (8.4-10.2) mg/dL Microbiology - Last 24 Hours (Table) 08/13/23 13:30 Fungal Culture - Preliminary Bronchial Washings - Random Rimma albicans 08/13/23 13:30 Gram Stain - Final Sputum Sputum Culture - Final Rimma albicans Assessment and Plan (1) Acute respiratory failure Current Visit: Yes Status: Acute Code(s): J96.00 - ACUTE RESPIRATORY FAILURE, UNSP W HYPOXIA OR HYPERCAPNIA SNOMED Code(s): 39998741 (2) HIV disease Current Visit: No Status: Acute Code(s): B20 - HUMAN IMMUNODEFICIENCY VIRUS [HIV] DISEASE SNOMED Code(s): 35319652 Plan: 1patient presented to hospital with increasing shortness of breath which is likely multifactorial in this patient who did have a history of COPD and likely COPD is a patient with a tracheobronchitis underlying pneumonia less likely but not entirely excluded 2-patient did have a CT angiogram of the chest that was negative for PE did not show any evidence of pneumonia or interstitial infiltrate 3-patient did have a penicillin allergy that will limit the number of antibiotics safe to use 4-patient sputum is growing Rimma which is likely colonization, pneumocystis and Legionella antigens has been negative 5-patient to continue with Biktarvy for HIV, no need for systemic antibiotics continue with the steroids and bronchodilators per pulmonary Dictation was produced using [employer] dictation software. please excuse any grammatical, word or spelling errors. Time with Patient: Less than 30
[2023-08-19 23:02] LABS: Glucose,Whole Blood 136 mg/dL (70-110)
[2023-08-20 06:01] LABS: HCT 38.3 % (34.0-46.0); HGB 12.1 gm/dL (11.4-16.0); Hypochromasia Slight; MCH 32.9 pg (25.0-35.0); MCHC 31.5 g/dL (31.0-37.0); MCV 104.5 fL (80.0-100.0); Macrocytosis Slight; Mean Platelet Volume 7.4; Platelet Count 230 k/uL (150-450); RBC 3.67 m/uL (3.80-5.40); RDW 13.3 % (11.5-15.5); WBC 10.1 k/uL (3.8-10.6)
[2023-08-20 06:10] LABS: ABG Base Excess 16.9 mmol/L; ABG PCO2 68 mmHg (35-45); ABG PO2 71 mmHg (83-108); ABG TCO2 44 mmol/L (19-24)
[2023-08-20 06:13] LABS: African American GFR (CKD) >90 (>60 ml/min/1.73 sqM); Blood Urea Nitrogen 33 mg/dL (7-17); Calcium 8.2 mg/dL (8.4-10.2); Chloride 102 mmol/L (98-107); Glucose 135 mg/dL (74-99); Non-African American GFR(CKD) >90 (>60 ml/min/1.73 sqM); Potassium 4.4 mmol/L (3.5-5.1); Sodium 138 mmol/L (137-145)
[2023-08-20 06:13] LABS: Glucose,Whole Blood 139 mg/dL (70-110)
[2023-08-20 06:23] LABS: Anion Gap -3 mmol/L
[2023-08-20 06:28] LABS: Carbon Dioxide 39 mmol/L (22-30)
[2023-08-20 06:30] LABS: ABG HCO3 42 mmol/L (21-25)
--- NOTE | 2023-08-20 07:48 | XR ---
EXAMINATION TYPE: XR chest 1V portable DATE OF EXAM: 08/20/2023 Comparison: 08/19/2023 Clinical History: 52-year-old female copd exacerbation Findings: ET tube satisfactory. NG tube tip just below the GE junction level. Consider further advancement by 7 cm so that the sidehole enters the stomach. Heart normal size. Mild hyperinflation. Left subclavian CVC tip lower SVC. Patchy right lower lung opacity is developing. Impression: 1. Consider advancing the NG tube by 7 cm so that the sidehole enters the stomach. 2. Developing patchy opacity at the right lower lung.
[2023-08-20] MEDS: NYSTATIN 100,000 UNIT/ML SUSP 500,000 UNIT/5 ML CUP PO SCH (13:09)
--- NOTE | 2023-08-20 13:31 | P.PN ---
Subjective Progress Note Date: 08/20/23 Principal diagnosis: Acute hypoxic respiratory failure secondary to acute exacerbation of COPD This is a 52-year-old female patient with known history of COPD. The patient is maintained on Trelegy Ellipta on outpatient basis and she also has a DuoNeb nebulized treatment to be used on an as-needed basis. She is known to have HIV and currently she is on Biktarvy followed up by Dr. Salguero on outpatient basis regarding her HIV. She is not aware of her recent CD4 counts and viral loads. She has been having issues with increased respiratory distress and [employer] exacerbation for the past 2 to 3 weeks. She received several rounds of antibiotics and steroids for our office for [employer] exacerbation she did not encounter any significant improvement. She ultimately came into the hospital for increased shortness of breath. She was briefly placed on BiPAP and the patient is currently on oxygen at 6 L/min nasal cannula with a pulse ox of 98%. She is quite short of breath even at rest. Not using accessory muscles of breathing. Sodium levels at 126, potassium is 4.3, bicarb is 29, BUN is at 8 with a creatinine of 0.39. WBC count of 4.7 with a hemoglobin of 14.5 and a platelet count of 241. The viral screen came back negative. The chest x-ray shows no acute abnormalities. There is hyperinflation consistent with COPD. Scattered senescent parenchymal changes are seen bilaterally. Findings are essentially consistent with COPD. She was started on bronchodilators with D uoNeb updrafts. She is also on IV Solu-Medrol. She was started on Zithromax as an empiric antibiotic coverage and she is also normal saline at rate of 75 cc an hour. No frequent hospital admissions for COPD exacerbation. Her last admission to the hospital was back in 2021 essentially same presentation. She has been trying to quit smoking and she has not smoked for the past several months. She has been smoking since the age of 11 and she carries more than [id number] smoking history. On 08/11/2023, the patient is being seen for a follow-up. The patient was hospitalized for an acute Exacerbation the patient is feeling better on today's evaluation this bronchospastic and wheezy. She is known to have HIV. Viral constant CD4 counts are still pending for now. She is currently on Zithromax, IV Solu-Medrol, DuoNeb nebulized treatments [id number]. She has failed outpatient treatment for that reason the patient was hospitalized. No fever. No altered mentation. No other new complaints otherwise for now. Oxygenation is stable on 3 L O2 nasal cannula with a pulse ox of 98%. On today's evaluation of 08/12/2023, the patient reports limited improvement since yesterday. Still bronchospastic and wheezy and continues to be short of breath. Maintained on Symbicort and DuoNeb updrafts and maintained on IV Solu- Medrol 60 mg every 6 hours. She remains on empiric antibiotic coverage with IV Zithromax. No nausea vomiting or diarrhea. BUN is at 19 with a creatinine of 0.5 and a sodium levels at 138. No other significant events otherwise for now. The patient has a impaired CD4 count of 81. As such, the patient is high immunosuppressed and she may be potentially at risk of opportunistic infection. Patient continue antiretroviral treatment. Obtain a follow-up chest x-ray tomorrow. On 08/13/2023, the patient is quite lethargic on a BiPAP. Events from yesterday was noted. The patient became progressively more short of breath. She became restless, anxious, along with increased agitation and respiratory distress. The patient accordingly was placed on a BiPAP at a pressure of 12 over 5 cm of water and currently she is on #2 of 60%. She is generating a tidal volume of around about 400 with a minute ventilation of 7.4. Respirate is currently at 18. She is actively bronchospastic and wheezy. Blood gases that was done before the BiPAP utilization showed a pH of 7.24 with a pCO2 of 98 and pO2 of 69. Rest of the labs from today are still pending. A repeat chest x-ray was done this morning and it shows no evidence of any acute cardiopulmonary process. The patient remains on bronchodilators. The patient remains on IV Solu-Medrol 60 mg every 6 hours. As mentioned earlier, her CD4 count was low at 81. Nevertheless, no indication for any opportunistic infections at this point in time. Her temperature is low and the patient is afebrile and hemodynamically stable. She did receive Ativan 1 mg and she seems to be much more comfortable and synchronous with the BiPAP treatment. Will transfer the patient to the intensive care unit. Will repeat her blood gas. Use Precedex if needed. Patient was placed today on 08/14/2023, patient was admitted few days ago, however yesterday patient was intubated and required mechanical ventilation. Patient is now on assist-control rate of 16 tidal volume 350 FiO2 45% and PEEP of 5 ABG on 40% and rate of 16 showed a pO2 of 59 pCO2 51 pH of 7.47 hence I increased the FiO2 to 45% and cut down the rate to 14. Patient will be allowed to have more permissive hypercapnia patient is still requiring significant amount of sedation including propofol at 50 mcg/kg/min Nimbex at 2 mcg/kg/min she is also on Dilaudid [id number], on Lovenox enteral feeding, and IV fluid at 0.9 normal saline at 75 cc/h. Patient is not requiring any pressors or any inotropes. Patient is immunocompromise, she does have history of HIV, and she has very low CD4 count of 81. She is definitely high risk for opportunistic infections, infectious disease was consulted. Considering her gases and considering her physical exam findings, patient is not quite ready for weaning, and I have no plans to wean and extubate today. I will keep the patient presently on Nimbex, she got intubated last night, and will continue broncho dilators, continue steroids, and continue enteral feeding/nutritional support. Chest x-ray this morning showed emphysematous changes, no acute pulmonary process. CT of the brain showed a focal area of hypoattenuation involving the inferior right temporal lobe.May represent an infarct, possibly chronic. BBC count today is 9.2 hemoglobin is 12.5 basic metabolic profile is normal bicarb is 37, renal profile is normal. Patient was reevaluated today on 08/15/2023, remains intubated and mechanically ventilated, remains in the ICU, she is on assist-control rate of 14 tidal volume 350 FiO2 45% PEEP of 5 ABG showed a pO2 of 165 pCO2 76 pH of 7.29. ABG showed a pO2 of 165 pCO2 76 pH of 7.29, hence FiO2 was cut down to 35% and rate increased up to 18. Remains on propofol at 50 mcg/kg/min, Nimbex at 2 mcg/kg/min, she is also on normal saline at 75 cc/h and receiving vital AF . Today my plan is to discontinue Nimbex, and likely start the patient on fentanyl at 0.5 mcg/kg/h. Antibiotics beltran the patient remains on cefepime and Levaquin. For some reason the infectious disease physician ordered a CT angiogram of the chest yesterday, although her presentation was clearly a presentation of COPD and the presentation clearly explains her clinical picture, CT angiogram of course showed no evidence of pulmonary embolism, it did show a 9 mm nodule which is something needs to be followed on outpatient basis, and possibly repeat CT of the chest in 6 months. Or at least try to retrieve any old scans on this patient in the past and see if this nodule was present before nonetheless the p atient will need a low-dose CT of the chest on annual basis anyway. Labs today showed WBC count of 4.2 hemoglobin 10.3, basic metabolic profile is normal renal profile is normal. Procalcitonin is less than 0.02 patient was seen by infectious disease and he kept the patient empirically on Levaquin and cefepime Patient was elevated today on 08/16/2023, remains in the ICU, intubated and mechanically ventilated. Remains on assist-control rate of 18 tidal volume 350 FiO2 35% PEEP of 5 ABG showed a pO2 of 103 pCO2 68 pH of 7.31, hence no changes were made in vent settings. Patient continues to have relatively high peak airway pressures in the high 30s. Continues to be tight and seems to have poor air exchange. Yesterday the patient was given a trial off Nimbex, however could not tolerate going off Nimbex in spite of using propofol fentanyl and Versed. Patient had to go back on Nimbex yesterday because of extreme agitation and she was not synchronous with the ventilator, noted to be tachypneic, tachycardic, and she was bucking the ventilator. Not to mention she was developing signif icantly high airway pressure. Today the patient is back on Nimbex at 2 mcg/kg/min Fentanyl 1 mcg/kg/h propofol 60 mcg/kg/min she is receiving vital AF she is also 1.9 normal saline at 75 cc/h. Remains on antibiotics in the form of Levaquin and cefepime. Her cultures have been negative including BAL culture, she did have Rimma, doubt any significance, I infectious disease is addressing. Considering what I have noted yesterday when the patient was off Nimbex, and considering her overall clinical condition today, I have no plans to discontinue discontinue Nimbex today. Will continue with the present cocktail sedation including Nimbex fentanyl and propofol, and will continue mechanical ventilation without any major change. Also continue antibiotics. And bronchodilators as well as IV Solu-Medrol. Reevaluate today on 08/17/2023, patient remains in the ICU, intubated and mechanically ventilated. Remains on assist-control rate of 18 tidal volume 350 FiO2 35% and PEEP of 5 ABG showed a pO2 of 102 pCO2 65 pH of 7.33. Chest x-ray continues to show no evidence of any active process. Patient remains on propofol at 60 mcg/kg/min, Nimbex at 2 mcg/kg/min Fentanyl at 1 mcg/kg/h patient is receiving vital AF at she is remains on cefepime and Levaquin as per ID on the case. Today I plan to discontinue Nimbex and see if we could control patient's agitation adequately will fentanyl propofol and Versed if needed. Have tried in the past doing this, could not ventilate the patient without having to use Nimbex. However will try again to discontinue Nimbex and try to manage the patient with fentanyl propofol and Versed if possible. Otherwise I will place her back on Nimbex. Patient is hemodynamically stable, she is not requiring any pressors. She is receiving antibiotics is also receiving enteral feeding, and she is on GI and DVT prophylaxis. Reevaluate today on 08/18/2023, patient remains in the ICU, intubated and mechanically ventilated, on assist-control rate of 18 tidal volume 350 FiO2 35% PEEP of 5 ABG showed a pO2 of 85 pCO2 66 pH of 7.35 hence no changes were made in ventilator settings. Patient remains on fentanyl at 2 mcg/kg/h, Versed 4 mg/h propofol at 70 mcg/kg/min she is off Nimbex now for the last 24 hours, and able to control patient with sedation as such. Patient is on vital AF , the plan is to cut down her propofol to 50 and increase her Versed if needed. No plans to wean and extubate today, however will start possibly attempting sedation holidays beginning tomorrow. Chest x-ray continues to show no evidence of active disease. WBC count is 5.9 hemoglobin is 11.9 basic metabolic profile is normal renal profile is normal Patient was reevaluated today on 08/19/2023, remains in the ICU, intubated and mechanically ventilated, presently on assist-control rate of 18 tidal volume 350 FiO2 35% PEEP of 5 ABG showed a pO2 of 84 pCO2 68 pH of 7.35. Patient is close most likely to her baseline pCO2 in the 60s. Patient is on enteral feeding/vital HP she is also on propofol at 15 but the plan to increase up to 50 and discontinue Versed which is 3 mg/h at present patient is also on fentanyl 1 mcg/kg/h and an IV fluid at 75 cc/h in the form of saline. I am planning today to hold sedation, and assess mental status, but I am not planning to proceed to extubation. Her overall pulmonary status remains marginal at best, chest x-ray showed COPD but no evidence of pneumonia. WBC count is normal 7.3 hemoglobin is 11.9 basic metabolic profile is normal bicarb is 36 renal profile is normal Patient evaluated today on 08/20/2023, remains in the ICU, intubated and mechanically ventilated. Patient was given sedation holiday yesterday and early this morning, she gets extremely restless agitated, she was able to wiggle toes only, could not get any other responses on lower doses of sedation. However considering the patient is quite hypertensive off sedation, considering that the patient is definitely not ready for any form of weaning, the plan is to place back on fentanyl at 1 mcg/kg/h propofol will be increased back to 50 mcg/kg/min and will use Versed if necessary presently Versed is on hold. She is on 0.9 normal saline at 75 cc/h she is on Cleviprex at 13 mg/h patient is remains on antibiotics/Levaquin. Patient is developing a minimal patchy opacity in the right lower lobe which was not present previously, she is definitely a good set up for developing pneumonia. Ventilator settings today are assist-control rate of 18 tidal volume 350 FiO2 35% PEEP of 5 ABG showed a pO2 of 71 pCO2 68 pH of 7.40 hence no changes were made in vent settings. WBC count is 10.1 hemoglobin is 12 basic metabolic profile is normal except bicarb of 39 BUN is 33 creatinine 0.3 Objective - Vital Signs Vital signs: Vital Signs Temp 98.8 F 08/20/23 08:30 Pulse 98 08/20/23 12:38 Resp 18 08/20/23 11:15 BP 162/76 08/20/23 11:15 Pulse Ox 94 L 08/20/23 11:15 FiO2 35 08/20/23 11:26 Intake & Output 08/19/23 08/20/23 08/20/23 18:59 06:59 18:59 Intake Total 6874.316 8047.397 880.217 Output Total 870 1984 970 Balance 595.491 -763.603 -89.783 Weight 68.2 kg Intake: IV 936 936 476 Normal Saline Pressure 36 36 21 Bag Sodium Chloride 0.9% 1, 900 900 455 000 ml @ 75 mls/hr IV . [id number] [facility] Rx#:[id number] Intake, IV Titration 157.491 264.397 218.217 Amount Clevidipine Butyrate 25 51.834 82.800 mg In Empty Bag 1 bag @ 1 MG/HR 2 mls/hr IV .Q24H [facility] Rx#:[id number] Midazolam HCl 50 mg In 12.183 16.767 6.683 Sodium Chloride 0.9% 40 ml @ 1 MG/HR 1 mls/hr IV .Q24H [facility] Rx#:[id number] fentaNYL (PF). 1,000 mcg 73.122 100 In Sodium Chloride 0.9% 80 ml @ 0.5 MCG/KG/HR 3. 005 mls/hr IV .Q24H [facility] Rx#:[id number] propofoL 1,000 mg In 72.186 195.796 28.734 Empty Bag 1 bag @ 15 MCG/ KG/MIN 5.715 mls/hr IV . [id number] [facility] Rx#:[id number] Tube Feeding 252 21 126 Other 120 60 Output: Urine 870 1984 970 Other: Voiding Method Indwelling Catheter Indwelling Catheter Indwelling Catheter ABP, PAP, CO, CI - Last Documented Arterial Blood Pressure 158/67 - Exam General: Revealed 52-year-old female intubated mechanically ventilated sedated, on propofol, and fentanyl, presently Versed is on hold Skin: Skin is warm and dry and no rashes or lesions are noted. Eye: Pupils are equal, round and reactive to light, extra-ocular movements are intact Ears, nose, mouth and throat: There are moist mucous membranes and no oral lesions. Endotracheal tube and orogastric tubes are intact. Neck: The neck is supple, there is no tenderness or JVD. Cardiovascular: Normal S1-S2, no S3 gallop. No murmur. Respiratory: Good breath sound bilaterally no rhonchi no wheezes Gastrointestinal: Soft nontender no megaly no rebound no guarding Musculoskeletal: No deformities noted. Neurological: Opens eyes, wiggles toes, but no other responses could be obtained on lower dose of sedation Psychiatric: Could not assess - Labs CBC & Chem 7: 08/20/23 05:40 08/20/23 05:40 Labs: Abnormal Lab Results - Last 24 Hours (Table) 08/19/23 08/20/23 08/20/23 Range/Units 23:01 05:40 05:40 RBC 3.67 L (3.80-5.40) m/uL MCV 104.5 H (80.0-100.0) fL ABG pCO2 (35-45) mmHg ABG pO2 (83-108) mmHg ABG HCO3 (21-25) mmol/L ABG Total CO2 (19-24) mmol/L Carbon Dioxide 39 H (22-30) mmol/L BUN 33 H (7-17) mg/dL Creatinine 0.38 L (0.52-1.04) mg/dL Glucose 135 H (74-99) mg/dL POC Glucose (mg/dL) 136 H (70-110) mg/dL Calcium 8.2 L (8.4-10.2) mg/dL 08/20/23 08/20/23 Range/Units 06:13 06:20 RBC (3.80-5.40) m/uL MCV (80.0-100.0) fL ABG pCO2 68 H (35-45) mmHg ABG pO2 71 L (83-108) mmHg ABG HCO3 42 H* (21-25) mmol/L ABG Total CO2 44 H (19-24) mmol/L Carbon Dioxide (22-30) mmol/L BUN (7-17) mg/dL Creatinine (0.52-1.04) mg/dL Glucose (74-99) mg/dL POC Glucose (mg/dL) 139 H (70-110) mg/dL Calcium (8.4-10.2) mg/dL Assessment and Plan Assessment: Impression: Acute hypoxic respiratory failure secondary to acute exacerbation of COPD requiring intubation mechanical ventilation on 08/13/2023. Advanced COPD Incidental finding of a left upper lobe 9 mm nodule seen on CT of the chest, needs outpatient follow History of HIV,patient has very low CD4 count, she is prone to opportunistic infections, cultures have been negative from BAL, patient is empirically on Levaquin Status post bronchoscopy and BAL 08/12, nondiagnostic Rimma in the sputum/BAL, doubt clinical significance Recommendation: Continue ventilatory support Continue sedation, avoid Nimbex at any cost for now. Daily interruption of sedation and assessment of mental status and assessment for possible weaning although I believe patient will not wean easily and most likely she will require tracheostomy and PEG tube placement. Continue nutritional support/enteral feeding presently at goal Continue antibiotics, as per infectious disease on the case. Continue GI and DVT prophylaxis Continue bronchodilators and steroids including Solu-Medrol 60 mg IV push every 6 hours Patient is critically ill, prognosis is guarded, family was updated on her condition yesterday at bedside. And made aware that she may eventually require tracheostomy and PEG tube placement Critical care time is over 30 minutes Will continue tofollow Time with Patient: Greater than 30
[2023-08-20 13:40] LABS: Glucose,Whole Blood 138 mg/dL (70-110)
--- NOTE | 2023-08-20 13:56 | P.PN ---
Subjective Progress Note Date: 08/20/23 52-year-old female presenting to the emergency department with difficulty breathing. Symptoms have been present for the past 3 days. Occasional cough, nonproductive. No fever or recent upper respiratory infection. No calf pain or leg swelling. Patient does have history of similar symptoms previously a ssociated with COPD. Patient is a former smoker, patient has more than 40 pack years history of smoking. Sodium levels at 126, potassium is 4.3, bicarb is 29, BUN is at 8 with a creatinine of 0.39. WBC count of 4.7 with a hemoglobin of 14.5 and a platelet count of 241. The viral screen came back negative. The chest x-ray shows no acute abnormalities. There is hyperinflation consistent with COPD. Scattered senescent parenchymal changes are seen bilaterally. Findings are essentially consistent with COPD. She was briefly placed on BiPAP and the patient is currently on oxygen at 6 L/min nasal cannula with a pulse ox of 98%. She is quite short of breath even at rest. Not using accessory muscles of breathing. She was started on bronchodilators with DuWoo salgadorafts. She is also on IV Solu-Medrol. She was started on Zithromax as an empiric antibiotic coverage and she is also normal saline at rate of 75 cc an hour. 08/13/2023 Patient is seen and evaluated in room at bedside; has been transferred to selective care unit; patient was getting short of breath and anxious with increasing agitation; patient was transferred to stepdown unit and placed on BiPAP --Patient continuing to be more lethargic this morning; evaluated by critical care service -- Chest x-ray completed this morning is negative for any acute process -Patient is currently on IV Solu-Medrol, bronchodilator nebulizer treatments and antibiotic therapy -- Patient is breathing comfortably with BiPAP; critical care planning to transfer patient to ICU for close monitoring with further recommendations once repeat blood gases are available 08/13. Patient seen and examined. Continues to be intubated. Patient history of HIV. Currently on propofol. Getting tube feeding as well 08/14. Patient seen and examined. Continues to be intubated. Blood work this morning showed WBC 4.2, hemoglobin 10.3, platelet count 187, sodium 130, potassium 4.3, BUN 25, creatinine 0.47. Antibiotics changed to IV cefepime and Levaquin 08/15. Patient seen examined. Continues to be intubated in the ICU, currently on propofol, Nimbex and fentanyl. Blood work done this morning showed WBC 5, hemoglobin 12, platelet count 234, sodium 139, potassium 4.3, BUN 27, creatinine 0.47 08/16. Patient seen and examined. Currently in ICU. Blood work done this morning showed WBC 6.2, hemoglobin 12, platelet count 231, sodium 140, potassium 4.5, BUN 29, creatinine 0.49. Nimbex was discontinued, continues to be on propofol and fentanyl. 08/17. Patient seen and examined. Currently on Versed, fentanyl and propofol. 08/18. Patient examined in the ICU. Currently intubated. critical care planning sedation holiday today.prognosis remains guarded 08/19. Patient seen and examined. Patient was given sedation holiday, was moving only her toes. Continues to be intubated REVIEW OF SYSTEMS: Intubated PHYSICAL EXAMINATION: GENERAL: The patient is intubated HEENT: Pupils are round and equally reacting to light. EOMI. No scleral icterus. No conjunctival pallor. Normocephalic, atraumatic. No pharyngeal erythema. No thyromegaly. CARDIOVASCULAR: S1 and S2 present. No murmurs, rubs, or gallops. PULMONARY: Chest is clear to auscultation, no wheezing or crackles. ABDOMEN: Soft, nontender, nondistended, normoactive bowel sounds. No palpable organomegaly. MUSCULOSKELETAL: No joint swelling or deformity. EXTREMITIES: No cyanosis, clubbing, or pedal edema. NEUROLOGICAL: Intubated and sedated SKIN: No rashes. Assessment and plan Acute exacerbation of chronic COPD Acute hypoxemic hypercapnic respiratory failure Pneumonia Advanced COPD at baseline History of smoking History of HIV currently on Biktarvy. Viral count and CD4 counts are not known. No previous history of a persistent infections. The patient has not been receiving any form of antibiotic treatments such as Bactrim. Her infectious disease doctor is Dr. Salguero. The CD4 count is at 81 Monitor vital signs Monitor CBC Monitor CMP Continue telemetry monitoring Aggressive bronchopulmonary hygiene Continue vent management per ICU Continue IV Solu-Medrol Continue IV antibiotics Continue breathing treatments Continue tube feeding Critical care following ID following prognosis remains guarded Labs and medication were reviewed.. Continue same treatment. Continue with symptomatic treatment. Resume home medication. Monitor labs and vitals. DVT and GI prophylaxis. Further recommendations as per clinical course of the patient Dictation was produced using [employer] dictation software. please excuse any grammatical, word or spelling errors. Objective - Vital Signs Vital signs: Vital Signs Temp 98.8 F 08/20/23 08:30 Pulse 120 H 08/20/23 08:51 Resp 21 08/20/23 08:30 BP 128/61 08/20/23 07:30 Pulse Ox 92 L 08/20/23 08:30 FiO2 35 08/20/23 08:30 Intake & Output 08/19/23 08/20/23 08/20/23 18:59 06:59 18:59 Intake Total 1318.389 2882.397 220.864 Output Total 870 1985 120 Balance 595.491 -763.603 100.864 Weight 68.2 kg Intake: IV 936 936 156 Normal Saline Pressure 36 36 6 Bag Sodium Chloride 0.9% 1, 900 900 150 000 ml @ 75 mls/hr IV . [id number] [facility] Rx#:[id number] Intake, IV Titration 157.491 264.397 13.864 Amount Clevidipine Butyrate 25 51.834 1.266 mg In Empty Bag 1 bag @ 1 MG/HR 2 mls/hr IV .Q24H [facility] Rx#:[id number] Midazolam HCl 50 mg In 12.183 16.767 0.533 Sodium Chloride 0.9% 40 ml @ 1 MG/HR 1 mls/hr IV .Q24H [facility] Rx#:[id number] fentaNYL (PF). 1,000 mcg 73.122 In Sodium Chloride 0.9% 80 ml @ 0.5 MCG/KG/HR 3. 005 mls/hr IV .Q24H [facility] Rx#:[id number] propofoL 1,000 mg In 72.186 195.796 12.065 Empty Bag 1 bag @ 15 MCG/ KG/MIN 5.715 mls/hr IV . [id number] [facility] Rx#:[id number] Tube Feeding 252 21 21 Other 120 30 Output: Urine 870 1985 120 Other: Voiding Method Indwelling Catheter Indwelling Catheter ABP, PAP, CO, CI - Last Documented Arterial Blood Pressure 170/78 - Labs CBC & Chem 7: 08/20/23 05:40 08/20/23 05:40 Labs: Abnormal Lab Results - Last 24 Hours (Table) 08/19/23 08/19/23 08/20/23 Range/Units 12:39 23:01 05:40 RBC 3.67 L (3.80-5.40) m/uL MCV 104.5 H (80.0-100.0) fL ABG pCO2 (35-45) mmHg ABG pO2 (83-108) mmHg ABG HCO3 (21-25) mmol/L ABG Total CO2 (19-24) mmol/L Carbon Dioxide (22-30) mmol/L BUN (7-17) mg/dL Creatinine (0.52-1.04) mg/dL Glucose (74-99) mg/dL POC Glucose (mg/dL) 115 H 136 H (70-110) mg/dL Calcium (8.4-10.2) mg/dL 08/20/23 08/20/23 08/20/23 Range/Units 05:40 06:13 06:20 RBC (3.80-5.40) m/uL MCV (80.0-100.0) fL ABG pCO2 68 H (35-45) mmHg ABG pO2 71 L (83-108) mmHg ABG HCO3 42 H* (21-25) mmol/L ABG Total CO2 44 H (19-24) mmol/L Carbon Dioxide 39 H (22-30) mmol/L BUN 33 H (7-17) mg/dL Creatinine 0.38 L (0.52-1.04) mg/dL Glucose 135 H (74-99) mg/dL POC Glucose (mg/dL) 139 H (70-110) mg/dL Calcium 8.2 L (8.4-10.2) mg/dL
--- NOTE | 2023-08-20 14:09 | OP ---
OPERATIVE REPORT DATE OF SERVICE : PROCEDURE PERFORMED: Placement of right radial arterial line. PREOPERATIVE DIAGNOSIS: Acute hypoxic and hypercapnic respiratory failure. POSTOPERATIVE DIAGNOSIS: Acute hypoxic and hypercapnic respiratory failure. ANESTHESIA USED: None deployed. DESCRIPTION OF PROCEDURE: The patient was placed in a supine position, the right wrist was prepped and draped in a sterile fashion. Drapes were applied. The right radial artery was palpated, cannulated, a guidewire was placed. A Cook's catheter was inserted over the guidewire, and the guidewire was removed. Good blood flow, good waveform, no complications. Line was secured using 3.0 silk sutures. MMODL / IJN: [id number] /
[2023-08-20 18:38] LABS: Glucose,Whole Blood 143 mg/dL (70-110)
[2023-08-20 23:26] LABS: Glucose,Whole Blood 127 mg/dL (70-110)
[2023-08-21 05:10] LABS: ABG Base Excess 19.1 mmol/L; ABG Oxygen Saturation 93.9 % (94-97); ABG PCO2 70 mmHg (35-45); ABG PO2 63 mmHg (83-108); ABG TCO2 46 mmol/L (19-24); Allen Test Performed? Yes
[2023-08-21 05:10] LABS: Basophils % (A) 0 %; Eosinophils % (A) 0 %; HCT 38.3 % (34.0-46.0); HGB 12.2 gm/dL (11.4-16.0); Lymphocytes # (A) 0.5 k/uL (1.0-4.8); Lymphocytes % (A) 5 %; MCHC 31.9 g/dL (31.0-37.0); MCV 103.5 fL (80.0-100.0); Macrocytosis Slight; Mean Platelet Volume 7.2; Monocytes # (A) 0.4 k/uL (0-1.0); Monocytes % (A) 3 %; Neutrophils # (A) 10.5 k/uL (1.3-7.7); Neutrophils % (A) 91 %; Platelet Count 248 k/uL (150-450); RDW 13.3 % (11.5-15.5); WBC 11.6 k/uL (3.8-10.6)
[2023-08-21 05:31] LABS: ABG HCO3 44 mmol/L (21-25)
[2023-08-21 05:39] LABS: African American GFR (CKD) >90 (>60 ml/min/1.73 sqM); Anion Gap -2 mmol/L; Blood Urea Nitrogen 23 mg/dL (7-17); Calcium 7.7 mg/dL (8.4-10.2); Chloride 95 mmol/L (98-107); Glucose 161 mg/dL (74-99); Non-African American GFR(CKD) >90 (>60 ml/min/1.73 sqM); Potassium 4.1 mmol/L (3.5-5.1); Sodium 133 mmol/L (137-145)
[2023-08-21 05:40] LABS: Glucose,Whole Blood 164 mg/dL (70-110)
[2023-08-21 05:46] LABS: Carbon Dioxide 40 mmol/L (22-30)
--- NOTE | 2023-08-21 07:48 | XR ---
EXAMINATION TYPE: XR chest 1V portable DATE OF EXAM: 08/21/2023 COMPARISON: 08/20/2023 HISTORY: SOB, Follow Up FINDINGS: Indwelling tubes and catheters are unchanged. Improved aeration at the lung bases. Stable appearance of the cardio-mediastinal structures at this time. IMPRESSION: 1. Improved aeration at the lung bases.Clinical correlation and follow up until resolution is recomm ended.
--- NOTE | 2023-08-21 11:27 | P.PN ---
Subjective Progress Note Date: 08/21/23 Principal diagnosis: Respiratory failure. Patient was elevated today on 08/16/2023, remains in the ICU, intubated and mechanically ventilated. Remains on assist-control rate of 18 tidal volume 350 FiO2 35% PEEP of 5 ABG showed a pO2 of 103 pCO2 68 pH of 7.31, hence no changes were made in vent settings. Patient continues to have relatively high peak airway pressures in the high 30s. Continues to be tight and seems to have poor air exchange. Yesterday the patient was given a trial off Nimbex, however could not tolerate going off Nimbex in spite of using propofol fentanyl and Versed. Patient had to go back on Nimbex yesterday because of extreme agitation and she was not synchronous with the ventilator, noted to be tachypneic, tachycardic, and she was bucking the ventilator. Not to mention she was developing significantly high airway pressure. Today the patient is back on Nimbex at 2 mcg/kg/min Fentanyl 1 mcg/kg/h propofol 60 mcg/kg/min she is receiving vital AF she is also 1.9 normal saline at 75 cc/h. Remains on antibiotics in the form of Levaquin and cefepime. Her cultures have been negative including BAL culture, she did have Rimma, doubt any significance, I infectious disease is addressing. Considering what I have noted yesterday when the patient was off Nimbex, and considering her overall clinical condition today, I have no plans to discontinue discontinue Nimbex today. Will continue with the present cocktail sedation including Nimbex fentanyl and propofol, and will continue mechanical ventilation without any major change. Also continue antibiotics. And bronchodilators as well as IV Solu-Medrol. Reevaluate today on 08/17/2023, patient remains in the ICU, intubated and mechanically ventilated. Remains on assist-control rate of 18 tidal volume 350 FiO2 35% and PEEP of 5 ABG showed a pO2 of 102 pCO2 65 pH of 7.33. Chest x-ray continues to show no evidence of any active process. Patient remains on propofol at 60 mcg/kg/min, Nimbex at 2 mcg/kg/min Fentanyl at 1 mcg/kg/h patient is receiving vital AF at she is remains on cefepime and Levaquin as per ID on the case. Today I plan to discontinue Nimbex and see if we could control patient's agitation adequately will fentanyl propofol and Versed if needed. Have tried in the past doing this, could not ventilate the patient without having to use Nimbex. However will try again to discontinue Nimbex and try to manage the patient with fentanyl propofol and Versed if possible. Otherwise I will place her back on Nimbex. Patient is hemodynamically stable, she is not requiring any pressors. She is receiving antibiotics is also receiving enteral feeding, and she is on GI and DVT prophylaxis. Reevaluate today on 08/18/2023, patient remains in the ICU, intubated and mechanically ventilated, on assist-control rate of 18 tidal volume 350 FiO2 35% PEEP of 5 ABG showed a pO2 of 85 pCO2 66 pH of 7.35 hence no changes were made in ventilator settings. Patient remains on fentanyl at 2 mcg/kg/h, Versed 4 mg/h propofol at 70 mcg/kg/min she is off Nimbex now for the last 24 hours, and able to control patient with sedation as such. Patient is on vital AF , the plan is to cut down her propofol to 50 and increase her Versed if needed. No plans to wean and extubate today, however will start possibly attempting sedation holidays beginning tomorrow. Chest x-ray continues to show no evidence of active disease. WBC count is 5.9 hemoglobin is 11.9 basic metabolic profile is normal renal profile is normal Patient was reevaluated today on 08/19/2023, remains in the ICU, intubated and mechanically ventilated, presently on assist-control rate of 18 tidal volume 350 FiO2 35% PEEP of 5 ABG showed a pO2 of 84 pCO2 68 pH of 7.35. Patient is close most likely to her baseline pCO2 in the 60s. Patient is on enteral feeding/vital HP she is also on propofol at 15 but the plan to increase up to 50 and discontinue Versed which is 3 mg/h at present patient is also on fentanyl 1 mcg/kg/h and an IV fluid at 75 cc/h in the form of saline. I am planning today to hold sedation, and assess mental status, but I am not planning to proceed to extubation. Her overall pulmonary status remains marginal at best, chest x-ray showed COPD but no evidence of pneumonia. WBC count is normal 7.3 hemoglobin is 11.9 basic metabolic profile is normal bicarb is 36 renal profile is normal Patient evaluated today on 08/20/2023, remains in the ICU, intubated and mechanically ventilated. Patient was given sedation holiday yesterday and early this morning, she gets extremely restless agitated, she was able to wiggle toes only, could not get any other responses on lower doses of sedation. However considering the patient is quite hypertensive off sedation, considering that the patient is definitely not ready for any form of weaning, the plan is to place back on fentanyl at 1 mcg/kg/h propofol will be increased back to 50 mcg/kg/min and will use Versed if necessary presently Versed is on hold. She is on 0.9 normal saline at 75 cc/h she is on Cleviprex at 13 mg/h patient is remains on antibiotics/Levaquin. Patient is developing a minimal patchy opacity in the right lower lobe which was not present previously, she is definitely a good set up for developing pneumonia. Ventilator settings today are assist-control rate of 18 tidal volume 350 FiO2 35% PEEP of 5 ABG showed a pO2 of 71 pCO2 68 pH of 7.40 hence no changes were made in vent settings. WBC count is 10.1 hemoglobin is 12 basic metabolic profile is normal except bicarb of 39 BUN is 33 creatinine 0.3 Progress note dated August 21, 2023. This is a 52-year-old female who was admitted on August 09. She came in with COPD exacerbation, and was intubated on August 12. She remains on the ventilator. She is on volume assist-control, rate 18, tidal volume 350, FiO2 35%, and PEEP of 5. Blood gases show pO2 of 63, pCO2 of 70, pH is 7.40. She continues on propofol at 40 mcg/kg/min, fentanyl at 1.5 mcg/kg/h, and Versed at 3 mg an hour. She is getting saline at 75 cc an hour, and vital AF at goal, which is 21 cc an hour. Because she has not made any headway towards weaning and extubation, we will ask surgery for tracheostomy and PEG tube placement. Current laboratory includes a white count 11.6, hemoglobin 12.2, hematocrit 38.3, and a normal platelet count. Sodium 133, potassium 4.1, chloride 95, CO2 40, BUN 23, and creatinine 0.29. Calcium 7.7. Sputum and bronchial washings were positive only for Rimma albicans. Chest x-ray shows improved aeration at the lung bases. Objective - Vital Signs Vital signs: Vital Signs Temp 98.7 F 08/21/23 04:00 Pulse 98 08/21/23 08:34 Resp 18 08/21/23 07:00 BP 98/61 08/21/23 07:00 Pulse Ox 95 08/21/23 07:00 FiO2 35 08/21/23 08:17 Intake & Output 08/20/23 08/21/23 08/21/23 18:59 06:59 18:59 Intake Total 0107.161 3791.701 146.299 Output Total 1505 1710 40 Balance 209.649 -26.299 106.299 Weight 68.4 kg 68.4 kg Intake: IV 966 936 78 Levofloxacin 750Mg-D5w 100 Pmx 750 mg In Dextrose/ Water 1 150ml.bag @ 100 mls/hr IVPB Q24H [facility] Rx#: [id number] Normal Saline Pressure 36 36 3 Bag Sodium Chloride 0.9% 1, 830 900 75 000 ml @ 75 mls/hr IV . [id number] [facility] Rx#:[id number] Intake, IV Titration 427.649 465.701 47.299 Amount Clevidipine Butyrate 25 159.100 110.401 mg In Empty Bag 1 bag @ 1 MG/HR 2 mls/hr IV .Q24H [facility] Rx#:[id number] Midazolam HCl 50 mg In 15.416 43.199 6.801 Sodium Chloride 0.9% 40 ml @ 1 MG/HR 1 mls/hr IV .Q24H [facility] Rx#:[id number] fentaNYL (PF). 1,000 mcg 141.068 58.932 In Sodium Chloride 0.9% 80 ml @ 0.5 MCG/KG/HR 3. 005 mls/hr IV .Q24H [facility] Rx#:[id number] propofoL 1,000 mg In 112.065 253.169 40.498 Empty Bag 1 bag @ 15 MCG/ KG/MIN 5.715 mls/hr IV . [id number] [facility] Rx#:[id number] Tube Feeding 231 252 21 Other 90 30 Output: Urine 1505 1710 40 Other: Voiding Method Indwelling Catheter Indwelling Catheter ABP, PAP, CO, CI - Last Documented Arterial Blood Pressure 101/46 - Exam No acute distress, sedated, with an orally placed endotracheal tube. HEENT examination is grossly unremarkable. Neck supple. Full range of motion. No adenopathy thyromegaly or neck vein distention. Cardiovascular examination reveals regular rhythm rate. S1-S2 normal. No S3 or S4. No discernible murmur noted. Heart sounds are distant. Heart rate 98 bpm. Lungs reveal scattered bilateral rhonchi. No wheezes or crackles. Breath sounds equal. Saturations are in the mid 90s. Abdomen soft, with bowel sounds. No masses or tenderness. Extremities are intact. No cyanosis clubbing or edema. Skin is without rash or lesion. Neurologic examination cannot be adequately assessed at this time. - Labs CBC & Chem 7: 08/21/23 04:50 08/21/23 04:50 Labs: Abnormal Lab Results - Last 24 Hours (Table) 08/20/23 08/20/23 08/20/23 Range/Units 13:39 18:36 23:24 WBC (3.8-10.6) k/uL RBC (3.80-5.40) m/uL MCV (80.0-100.0) fL Neutrophils # (1.3-7.7) k/uL Lymphocytes # (1.0-4.8) k/uL ABG pCO2 (35-45) mmHg ABG pO2 (83-108) mmHg ABG HCO3 (21-25) mmol/L ABG Total CO2 (19-24) mmol/L ABG O2 Saturation (94-97) % Sodium (137-145) mmol/L Chloride (98-107) mmol/L Carbon Dioxide (22-30) mmol/L BUN (7-17) mg/dL Creatinine (0.52-1.04) mg/dL Glucose (74-99) mg/dL POC Glucose (mg/dL) 138 H 143 H 127 H (70-110) mg/dL Calcium (8.4-10.2) mg/dL 08/21/23 08/21/23 08/21/23 Range/Units 04:50 04:50 05:08 WBC 11.6 H (3.8-10.6) k/uL RBC 3.70 L (3.80-5.40) m/uL MCV 103.5 H (80.0-100.0) fL Neutrophils # 10.5 H (1.3-7.7) k/uL Lymphocytes # 0.5 L (1.0-4.8) k/uL ABG pCO2 70 H (35-45) mmHg ABG pO2 63 L (83-108) mmHg ABG HCO3 44 H* (21-25) mmol/L ABG Total CO2 46 H (19-24) mmol/L ABG O2 Saturation 93.9 L (94-97) % Sodium 133 L (137-145) mmol/L Chloride 95 L (98-107) mmol/L Carbon Dioxide 40 H (22-30) mmol/L BUN 23 H (7-17) mg/dL Creatinine 0.29 L (0.52-1.04) mg/dL Glucose 161 H (74-99) mg/dL POC Glucose (mg/dL) (70-110) mg/dL Calcium 7.7 L (8.4-10.2) mg/dL 08/21/23 Range/Units 05:38 WBC (3.8-10.6) k/uL RBC (3.80-5.40) m/uL MCV (80.0-100.0) fL Neutrophils # (1.3-7.7) k/uL Lymphocytes # (1.0-4.8) k/uL ABG pCO2 (35-45) mmHg ABG pO2 (83-108) mmHg ABG HCO3 (21-25) mmol/L ABG Total CO2 (19-24) mmol/L ABG O2 Saturation (94-97) % Sodium (137-145) mmol/L Chloride (98-107) mmol/L Carbon Dioxide (22-30) mmol/L BUN (7-17) mg/dL Creatinine (0.52-1.04) mg/dL Glucose (74-99) mg/dL POC Glucose (mg/dL) 164 H (70-110) mg/dL Calcium (8.4-10.2) mg/dL Assessment and Plan Assessment: Acute hypoxemic respiratory failure, secondary to COPD exacerbation, status post intubation and mechanical ventilation on August 13, 2023. Advanced COPD. Left upper lobe pulmonary nodule, 9 mm. History of HIV. Status post bronchoscopy and BAL, August 12, nondiagnostic. Sputum samples, positive for Rimma albicans. Plan: Plan dated August 21, 2023. The patient has not really made any headway towards weaning and extubation. She was intubated on August 12. She has not been intubated for 9 days. Will ask surgery for tracheostomy and PEG tube placement. Patient continues on propofol, fentanyl, and Versed. She is receiving tube feedings. Blood gases have been reviewed. Labs, x-rays, and all medications are reviewed. Prognosis is guarded. We will continue to follow make recommendations along the way. Time with Patient: Greater than 30
[2023-08-21 11:53] LABS: Glucose,Whole Blood 154 mg/dL (70-110)
--- NOTE | 2023-08-21 12:41 | P.PN ---
Subjective Progress Note Date: 08/21/23 This is a 52-year-old female who initially came into the hospital due to difficulty breathing and cough. Patient was found to have significant COPD exacerbation and required intubation. She continues in the intensive care unit she is on the mechanical ventilator with an FiO2 of 35% with a PEEP of 5. She is currently on an IV Versed and IV fentanyl infusion as well as IV Solu-Medrol. She is currently sedated with propofol. patient is maintained on Biktarvy also for history of HIV. On enteral feedings. Chest x-ray today shows improved aeration of the lung bases. Labs today reveal a white blood cell count of 11.6, sodium 133, BUN of 23, creatinine of 0.29. Her glucose is in the 120s to 130s range. CO2 of 40. Sputum culture was found to be positive for Rimma. She is being considered for trach and PEG tube placement. Unable to complete a review of systems as patient is currently intubated and sedated on the mechanical ventilator PHYSICAL EXAMINATION: GENERAL: The patient is alert and oriented x0, not in any acute distress. Well developed, well nourished. Sedated. HEENT: Pupils are round and equally reacting to light. EOMI. No scleral icterus. No conjunctival pallor. Normocephalic, atraumatic. No pharyngeal erythema. No thyromegaly. CARDIOVASCULAR: S1 and S2 present. No murmurs, rubs, or gallops. PULMONARY: Chest is clear to auscultation, no wheezing or crackles. ABDOMEN: Soft, nontender, nondistended, normoactive bowel sounds. No palpable organomegaly. MUSCULOSKELETAL: No joint swelling or deformity. EXTREMITIES: No cyanosis, clubbing, or pedal edema. NEUROLOGICAL: Unable to asses pt is sedated SKIN: No rashes. Assessment and Plan -Acute exacerbation of chronic COPD -Acute hypoxemic hypercapnic respiratory failure requiring mechanical intubation -Rimma albicans in the sputum -Left upper lobe nodule -Steroid induced hyperglycemia -Advanced COPD at baseline -History of smoking -History of HIV currently on Biktarvy. Viral count and CD4 counts are not known. No previous history of a persistent infections. The patient has not been receiving any form of antibiotic treatments such as Bactrim. Her infectious disease doctor is Dr. Salguero. The CD4 count is at 81 -Chronic nicotine use GI prophylaxis: Protonix DVT prophylaxis: Lovenox Full Code Plan Continue with IV solumedrol, updrafts Mechanical ventilator per nuclear operations specialist Continue on enteral tube feedings Continue accuchecks Q6h and sliding scale insulin Patient is being considered for trach and PEG tube placement Continues on propofol, fentanyl and versed Repeat labs in the AM The impression and plan of care has been dictated by Vangie Barton Nurse Practitioner as directed. Dr. Dann MD I have performed a history and physical examination and medical decision making of this patient, discussed the same with the dictator, and agree with the dictators assessment and plan as written, documented as a scribe. Based on total visit time, I have performed more than 50% of this visit. Objective - Vital Signs Vital signs: Vital Signs Temp 98.7 F 08/21/23 04:00 Pulse 80 08/21/23 11:40 Resp 18 08/21/23 07:00 BP 98/61 08/21/23 07:00 Pulse Ox 95 08/21/23 07:00 FiO2 35 08/21/23 11:28 Intake & Output 08/20/23 08/21/23 08/21/23 18:59 06:59 18:59 Intake Total 5929.601 1966.701 146.299 Output Total 1505 1710 40 Balance 209.649 -26.299 106.299 Weight 68.4 kg 68.4 kg Intake: IV 966 936 78 Levofloxacin 750Mg-D5w 100 Pmx 750 mg In Dextrose/ Water 1 150ml.bag @ 100 mls/hr IVPB Q24H [facility] Rx#: [id number] Normal Saline Pressure 36 36 3 Bag Sodium Chloride 0.9% 1, 830 900 75 000 ml @ 75 mls/hr IV . [id number] [facility] Rx#:[id number] Intake, IV Titration 427.649 465.701 47.299 Amount Clevidipine Butyrate 25 159.100 110.401 mg In Empty Bag 1 bag @ 1 MG/HR 2 mls/hr IV .Q24H [facility] Rx#:[id number] Midazolam HCl 50 mg In 15.416 43.199 6.801 Sodium Chloride 0.9% 40 ml @ 1 MG/HR 1 mls/hr IV .Q24H [facility] Rx#:[id number] fentaNYL (PF). 1,000 mcg 141.068 58.932 In Sodium Chloride 0.9% 80 ml @ 0.5 MCG/KG/HR 3. 005 mls/hr IV .Q24H [facility] Rx#:[id number] propofoL 1,000 mg In 112.065 253.169 40.498 Empty Bag 1 bag @ 15 MCG/ KG/MIN 5.715 mls/hr IV . [id number] [facility] Rx#:[id number] Tube Feeding 231 252 21 Other 90 30 Output: Urine 1505 1710 40 Other: Voiding Method Indwelling Catheter Indwelling Catheter ABP, PAP, CO, CI - Last Documented Arterial Blood Pressure 101/46 - Labs CBC & Chem 7: 08/21/23 04:50 08/21/23 04:50 Labs: Abnormal Lab Results - Last 24 Hours (Table) 08/20/23 08/20/23 08/20/23 Range/Units 13:39 18:36 23:24 WBC (3.8-10.6) k/uL RBC (3.80-5.40) m/uL MCV (80.0-100.0) fL Neutrophils # (1.3-7.7) k/uL Lymphocytes # (1.0-4.8) k/uL ABG pCO2 (35-45) mmHg ABG pO2 (83-108) mmHg ABG HCO3 (21-25) mmol/L ABG Total CO2 (19-24) mmol/L ABG O2 Saturation (94-97) % Sodium (137-145) mmol/L Chloride (98-107) mmol/L Carbon Dioxide (22-30) mmol/L BUN (7-17) mg/dL Creatinine (0.52-1.04) mg/dL Glucose (74-99) mg/dL POC Glucose (mg/dL) 138 H 143 H 127 H (70-110) mg/dL Calcium (8.4-10.2) mg/dL 08/21/23 08/21/23 08/21/23 Range/Units 04:50 04:50 05:08 WBC 11.6 H (3.8-10.6) k/uL RBC 3.70 L (3.80-5.40) m/uL MCV 103.5 H (80.0-100.0) fL Neutrophils # 10.5 H (1.3-7.7) k/uL Lymphocytes # 0.5 L (1.0-4.8) k/uL ABG pCO2 70 H (35-45) mmHg ABG pO2 63 L (83-108) mmHg ABG HCO3 44 H* (21-25) mmol/L ABG Total CO2 46 H (19-24) mmol/L ABG O2 Saturation 93.9 L (94-97) % Sodium 133 L (137-145) mmol/L Chloride 95 L (98-107) mmol/L Carbon Dioxide 40 H (22-30) mmol/L BUN 23 H (7-17) mg/dL Creatinine 0.29 L (0.52-1.04) mg/dL Glucose 161 H (74-99) mg/dL POC Glucose (mg/dL) (70-110) mg/dL Calcium 7.7 L (8.4-10.2) mg/dL 08/21/23 08/21/23 Range/Units 05:38 11:51 WBC (3.8-10.6) k/uL RBC (3.80-5.40) m/uL MCV (80.0-100.0) fL Neutrophils # (1.3-7.7) k/uL Lymphocytes # (1.0-4.8) k/uL ABG pCO2 (35-45) mmHg ABG pO2 (83-108) mmHg ABG HCO3 (21-25) mmol/L ABG Total CO2 (19-24) mmol/L ABG O2 Saturation (94-97) % Sodium (137-145) mmol/L Chloride (98-107) mmol/L Carbon Dioxide (22-30) mmol/L BUN (7-17) mg/dL Creatinine (0.52-1.04) mg/dL Glucose (74-99) mg/dL POC Glucose (mg/dL) 164 H 154 H (70-110) mg/dL Calcium (8.4-10.2) mg/dL Assessment and Plan Time with Patient: Less than 30
--- NOTE | 2023-08-21 15:45 | P.GSCN ---
History of Present Illness Consult date: 08/21/23 History of present illness: CHIEF COMPLAINT: Shortness of breath HISTORY OF PRESENT ILLNESS: This is a 52-year-old male who presented the hospital with shortness of breath thousand to have evidence of COPD exacerbation and respiratory failure. Patient was intubated on August 12. They are having difficulty weaning patient. Surgical consult has been requested for tra cheostomy and PEG tube placement. PAST MEDICAL HISTORY: Asthma, COPD, HIV PAST SURGICAL HISTORY: See below MEDICATIONS: See below ALLERGIES: See below SOCIAL HISTORY: No illicit drug use. REVIEW OF SYSTEMS: Patient intubated and sedated unable to obtain PHYSICAL EXAM: VITAL SIGNS: Reviewed GENERAL: no acute distress. ABDOMEN: Soft. Nondistended. Nontender NEUROLOGIC: Intubated and sedated LABORATORY DATA: WBC 11.6 Hgb 12.2 platelets 248 Sodium is 133 potassium 4.1 creatinine 0.29 Albumin 3.4 IMAGING: ASSESSMENT: 1. Acute hypoxic respiratory failure with difficulty to wean from the vent 2. COPD exacerbation 3. Moderate protein calorie malnutrition 4. History of HIV PLAN: -Patient scheduled for PEG tube placement and tracheostomy tomorrow, 08/22/[address] Chiu -Hold tube feedings after midnight and hold Lovenox in the morning Physician Floor Winder note has been reviewed by physician. Signing provider agrees with the documented findings, assessment, and plan of care. Past Medical History Past Medical History: Asthma, Blood Disorder, COPD Additional Past Medical History / Comment(s): hiv History of Any Multi-Drug Resistant Organisms: None Reported Past Surgical History: No Surgical Hx Reported Past Psychological History: Depression Smoking Status: Current every day smoker Past Alcohol Use History: None Reported, Occasional Past Drug Use History: None Reported Medications and Allergies Home Medications Medication Instructions Recorded Confirmed Type Albuterol Sulfate [Albuterol 2 puff PO RT-Q4H PRN 03/14/22 08/10/23 History Sulfate Hfa] Bictegrav/Emtricit/Tenofov Ala 1 tab PO DAILY 08/10/23 08/10/23 History [Biktarvy 50-200-25 mg Tablet] Fluticasone/Umeclidin/Vilanter 1 puff INHALATION RT-DAILY 08/10/23 08/10/23 History [Trelegy Ellipta 200-62.5-25] Ipratropium-Albuterol Nebulize 3 ml INHALATION RT-Q6H PRN 08/10/23 08/10/23 History [Duoneb 0.5 mg-3 mg/3 ml Soln] Sertraline [Zoloft] 50 mg PO DAILY 08/10/23 08/10/23 History traZODone HCL [Desyrel] 100 mg PO HS 08/10/23 08/10/23 History Allergies Allergy/AdvReac Type Severity Reaction Status Date / Time Penicillins Allergy Anaphylaxis Verified 08/10/23 14:58 Surgical - Exam Vital Signs Temp Pulse Resp BP Pulse Ox 98.3 F 84 26 H 146/74 100 08/10/23 13:04 08/10/23 13:04 08/10/23 13:04 08/10/23 13:04 08/10/23 13:04 Results - Labs 08/21/23 04:50 08/21/23 04:50 Abnormal Lab Results - Last 24 Hours (Table) 08/20/23 08/20/23 08/21/23 Range/Units 18:36 23:24 04:50 WBC (3.8-10.6) k/uL RBC (3.80-5.40) m/uL MCV (80.0-100.0) fL Neutrophils # (1.3-7.7) k/uL Lymphocytes # (1.0-4.8) k/uL ABG pCO2 (35-45) mmHg ABG pO2 (83-108) mmHg ABG HCO3 (21-25) mmol/L ABG Total CO2 (19-24) mmol/L ABG O2 Saturation (94-97) % Sodium 133 L (137-145) mmol/L Chloride 95 L (98-107) mmol/L Carbon Dioxide 40 H (22-30) mmol/L BUN 23 H (7-17) mg/dL Creatinine 0.29 L (0.52-1.04) mg/dL Glucose 161 H (74-99) mg/dL POC Glucose (mg/dL) 143 H 127 H (70-110) mg/dL Calcium 7.7 L (8.4-10.2) mg/dL 08/21/23 08/21/23 08/21/23 Range/Units 04:50 05:08 05:38 WBC 11.6 H (3.8-10.6) k/uL RBC 3.70 L (3.80-5.40) m/uL MCV 103.5 H (80.0-100.0) fL Neutrophils # 10.5 H (1.3-7.7) k/uL Lymphocytes # 0.5 L (1.0-4.8) k/uL ABG pCO2 70 H (35-45) mmHg ABG pO2 63 L (83-108) mmHg ABG HCO3 44 H* (21-25) mmol/L ABG Total CO2 46 H (19-24) mmol/L ABG O2 Saturation 93.9 L (94-97) % Sodium (137-145) mmol/L Chloride (98-107) mmol/L Carbon Dioxide (22-30) mmol/L BUN (7-17) mg/dL Creatinine (0.52-1.04) mg/dL Glucose (74-99) mg/dL POC Glucose (mg/dL) 164 H (70-110) mg/dL Calcium (8.4-10.2) mg/dL 08/21/23 Range/Units 11:51 WBC (3.8-10.6) k/uL RBC (3.80-5.40) m/uL MCV (80.0-100.0) fL Neutrophils # (1.3-7.7) k/uL Lymphocytes # (1.0-4.8) k/uL ABG pCO2 (35-45) mmHg ABG pO2 (83-108) mmHg ABG HCO3 (21-25) mmol/L ABG Total CO2 (19-24) mmol/L ABG O2 Saturation (94-97) % Sodium (137-145) mmol/L Chloride (98-107) mmol/L Carbon Dioxide (22-30) mmol/L BUN (7-17) mg/dL Creatinine (0.52-1.04) mg/dL Glucose (74-99) mg/dL POC Glucose (mg/dL) 154 H (70-110) mg/dL Calcium (8.4-10.2) mg/dL Diabetes panel 08/21/23 Range/Units 04:50 Sodium 133 L (137-145) mmol/L Potassium 4.1 (3.5-5.1) mmol/L Chloride 95 L (98-107) mmol/L Carbon Dioxide 40 H (22-30) mmol/L BUN 23 H (7-17) mg/dL Creatinine 0.29 L (0.52-1.04) mg/dL Glucose 161 H (74-99) mg/dL Calcium 7.7 L (8.4-10.2) mg/dL Calcium panel 08/21/23 Range/Units 04:50 Calcium 7.7 L (8.4-10.2) mg/dL Pituitary panel 08/21/23 Range/Units 04:50 Sodium 133 L (137-145) mmol/L Potassium 4.1 (3.5-5.1) mmol/L Chloride 95 L (98-107) mmol/L Carbon Dioxide 40 H (22-30) mmol/L BUN 23 H (7-17) mg/dL Creatinine 0.29 L (0.52-1.04) mg/dL Glucose 161 H (74-99) mg/dL Calcium 7.7 L (8.4-10.2) mg/dL Adrenal panel 08/21/23 Range/Units 04:50 Sodium 133 L (137-145) mmol/L Potassium 4.1 (3.5-5.1) mmol/L Chloride 95 L (98-107) mmol/L Carbon Dioxide 40 H (22-30) mmol/L BUN 23 H (7-17) mg/dL Creatinine 0.29 L (0.52-1.04) mg/dL Glucose 161 H (74-99) mg/dL Calcium 7.7 L (8.4-10.2) mg/dL
[2023-08-21 17:52] LABS: Glucose,Whole Blood 164 mg/dL (70-110)
[2023-08-21 23:31] LABS: Glucose,Whole Blood 162 mg/dL (70-110)
[2023-08-22 05:41] LABS: Glucose,Whole Blood 136 mg/dL (70-110)
[2023-08-22 05:50] LABS: Basophils % (A) 0 %; Eosinophils % (A) 0 %; HGB 11.6 gm/dL (11.4-16.0); Lymphocytes # (A) 0.6 k/uL (1.0-4.8); Lymphocytes % (A) 6 %; MCH 32.1 pg (25.0-35.0); MCHC 31.5 g/dL (31.0-37.0); MCV 102.1 fL (80.0-100.0); Macrocytosis Slight; Mean Platelet Volume 7.5; Monocytes # (A) 0.3 k/uL (0-1.0); Monocytes % (A) 3 %; Neutrophils # (A) 9.6 k/uL (1.3-7.7); Neutrophils % (A) 90 %; Platelet Count 224 k/uL (150-450); RBC 3.62 m/uL (3.80-5.40); RDW 13.3 % (11.5-15.5); WBC 10.7 k/uL (3.8-10.6)
[2023-08-22 06:02] LABS: African American GFR (CKD) >90 (>60 ml/min/1.73 sqM); Blood Urea Nitrogen 25 mg/dL (7-17); Calcium 7.9 mg/dL (8.4-10.2); Chloride 97 mmol/L (98-107); Glucose 136 mg/dL (74-99); Magnesium 2.4 mg/dL (1.6-2.3); Non-African American GFR(CKD) >90 (>60 ml/min/1.73 sqM); Potassium 4.5 mmol/L (3.5-5.1); Sodium 135 mmol/L (137-145)
[2023-08-22 06:08] LABS: Anion Gap 2 mmol/L
[2023-08-22 06:13] LABS: ABG Base Excess 19.1 mmol/L; ABG PCO2 67 mmHg (35-45); ABG PH 7.42 (7.35-7.45); ABG PO2 80 mmHg (83-108); ABG TCO2 46 mmol/L (19-24); Allen Test Performed? Yes
[2023-08-22 06:14] LABS: ABG HCO3 44 mmol/L (21-25)
[2023-08-22 06:15] LABS: Carbon Dioxide 36 mmol/L (22-30)
--- NOTE | 2023-08-22 08:43 | XR ---
EXAMINATION TYPE: XR chest 1V portable DATE OF EXAM: 08/22/2023 COMPARISON: 08/21/2023 HISTORY: SOB, Follow Up FINDINGS: Indwelling tubes and catheters are unchanged. No focal infiltrates seen. Stable appearance of the cardio-mediastinal structures at this time. Blunting left costophrenic angle. IMPRESSION: 1. Stable portable chest. Clinical correlation and follow up until resolution is recommended.
--- NOTE | 2023-08-22 10:34 | P.PN ---
Subjective Progress Note Date: 08/22/23 Principal diagnosis: Respiratory failure. Patient was elevated today on 08/16/2023, remains in the ICU, intubated and mechanically ventilated. Remains on assist-control rate of 18 tidal volume 350 FiO2 35% PEEP of 5 ABG showed a pO2 of 103 pCO2 68 pH of 7.31, hence no changes were made in vent settings. Patient continues to have relatively high peak airway pressures in the high 30s. Continues to be tight and seems to have poor air exchange. Yesterday the patient was given a trial off Nimbex, however could not tolerate going off Nimbex in spite of using propofol fentanyl and Versed. Patient had to go back on Nimbex yesterday because of extreme agitation and she was not synchronous with the ventilator, noted to be tachypneic, tachycardic, and she was bucking the ventilator. Not to mention she was developing significantly high airway pressure. Today the patient is back on Nimbex at 2 mcg/kg/min Fentanyl 1 mcg/kg/h propofol 60 mcg/kg/min she is receiving vital AF she is also 1.9 normal saline at 75 cc/h. Remains on antibiotics in the form of Levaquin and cefepime. Her cultures have been negative including BAL culture, she did have Rimma, doubt any significance, I infectious disease is addressing. Considering what I have noted yesterday when the patient was off Nimbex, and considering her overall clinical condition today, I have no plans to discontinue discontinue Nimbex today. Will continue with the present cocktail sedation including Nimbex fentanyl and propofol, and will continue mechanical ventilation without any major change. Also continue antibiotics. And bronchodilators as well as IV Solu-Medrol. Reevaluate today on 08/17/2023, patient remains in the ICU, intubated and mechanically ventilated. Remains on assist-control rate of 18 tidal volume 350 FiO2 35% and PEEP of 5 ABG showed a pO2 of 102 pCO2 65 pH of 7.33. Chest x-ray continues to show no evidence of any active process. Patient remains on propofol at 60 mcg/kg/min, Nimbex at 2 mcg/kg/min Fentanyl at 1 mcg/kg/h patient is receiving vital AF at she is remains on cefepime and Levaquin as per ID on the case. Today I plan to discontinue Nimbex and see if we could control patient's agitation adequately will fentanyl propofol and Versed if needed. Have tried in the past doing this, could not ventilate the patient without having to use Nimbex. However will try again to discontinue Nimbex and try to manage the patient with fentanyl propofol and Versed if possible. Otherwise I will place her back on Nimbex. Patient is hemodynamically stable, she is not requiring any pressors. She is receiving antibiotics is also receiving enteral feeding, and she is on GI and DVT prophylaxis. Reevaluate today on 08/18/2023, patient remains in the ICU, intubated and mechanically ventilated, on assist-control rate of 18 tidal volume 350 FiO2 35% PEEP of 5 ABG showed a pO2 of 85 pCO2 66 pH of 7.35 hence no changes were made in ventilator settings. Patient remains on fentanyl at 2 mcg/kg/h, Versed 4 mg/h propofol at 70 mcg/kg/min she is off Nimbex now for the last 24 hours, and able to control patient with sedation as such. Patient is on vital AF , the plan is to cut down her propofol to 50 and increase her Versed if needed. No plans to wean and extubate today, however will start possibly attempting sedation holidays beginning tomorrow. Chest x-ray continues to show no evidence of active disease. WBC count is 5.9 hemoglobin is 11.9 basic metabolic profile is normal renal profile is normal Patient was reevaluated today on 08/19/2023, remains in the ICU, intubated and mechanically ventilated, presently on assist-control rate of 18 tidal volume 350 FiO2 35% PEEP of 5 ABG showed a pO2 of 84 pCO2 68 pH of 7.35. Patient is close most likely to her baseline pCO2 in the 60s. Patient is on enteral feeding/vital HP she is also on propofol at 15 but the plan to increase up to 50 and discontinue Versed which is 3 mg/h at present patient is also on fentanyl 1 mcg/kg/h and an IV fluid at 75 cc/h in the form of saline. I am planning today to hold sedation, and assess mental status, but I am not planning to proceed to extubation. Her overall pulmonary status remains marginal at best, chest x-ray showed COPD but no evidence of pneumonia. WBC count is normal 7.3 hemoglobin is 11.9 basic metabolic profile is normal bicarb is 36 renal profile is normal Patient evaluated today on 08/20/2023, remains in the ICU, intubated and mechanically ventilated. Patient was given sedation holiday yesterday and early this morning, she gets extremely restless agitated, she was able to wiggle toes only, could not get any other responses on lower doses of sedation. However considering the patient is quite hypertensive off sedation, considering that the patient is definitely not ready for any form of weaning, the plan is to place back on fentanyl at 1 mcg/kg/h propofol will be increased back to 50 mcg/kg/min and will use Versed if necessary presently Versed is on hold. She is on 0.9 normal saline at 75 cc/h she is on Cleviprex at 13 mg/h patient is remains on antibiotics/Levaquin. Patient is developing a minimal patchy opacity in the right lower lobe which was not present previously, she is definitely a good set up for developing pneumonia. Ventilator settings today are assist-control rate of 18 tidal volume 350 FiO2 35% PEEP of 5 ABG showed a pO2 of 71 pCO2 68 pH of 7.40 hence no changes were made in vent settings. WBC count is 10.1 hemoglobin is 12 basic metabolic profile is normal except bicarb of 39 BUN is 33 creatinine 0.3 Progress note dated August 21, 2023. This is a 52-year-old female who was admitted on August 09. She came in with COPD exacerbation, and was intubated on August 12. She remains on the ventilator. She is on volume assist-control, rate 18, tidal volume 350, FiO2 35%, and PEEP of 5. Blood gases show pO2 of 63, pCO2 of 70, pH is 7.40. She continues on propofol at 40 mcg/kg/min, fentanyl at 1.5 mcg/kg/h, and Versed at 3 mg an hour. She is getting saline at 75 cc an hour, and vital AF at goal, which is 21 cc an hour. Because she has not made any headway towards weaning and extubation, we will ask surgery for tracheostomy and PEG tube placement. Current laboratory includes a white count 11.6, hemoglobin 12.2, hematocrit 38.3, and a normal platelet count. Sodium 133, potassium 4.1, chloride 95, CO2 40, BUN 23, and creatinine 0.29. Calcium 7.7. Sputum and bronchial washings were positive only for Rimma albicans. Chest x-ray shows improved aeration at the lung bases. Progress note dated August 22, 2023. This is a 52-year-old female who was admitted on August 09. She came in with COPD exacerbation, and was intubated on August 12. She remains on the ventilator. The patient's ventilator settings include volume assist-control, rate 18, tidal volume 350, FiO2 35%, and PEEP of 5. Blood gases show pO2 of 80, pCO2 of 67, pH is 7.42. The patient is getting saline at 75 cc an hour, propofol at 55 mcg/kg/min, fentanyl at 1.5 mcg/kg/h, Versed at 6 mg an hour, and tube feedings are on hold, for possible tracheostomy and PEG tube placement today. The patient's peak airway pressures 37, with a plateau pressure of 20. White count of 10.7, hemoglobin 11.6, hematocrit 37, and platelet count was normal. Sodium 135, potassium 4.5, chlorides 97, CO2 36, BUN 25, and creatinine is 0.36. Glucose is 136. Magnesium 2.4. Calcium 7.9. Chest x-ray shows no changes, compared to the prior chest x-ray. Objective - Vital Signs Vital signs: Vital Signs Temp 97.9 F 08/22/23 08:00 Pulse 73 08/22/23 10:00 Resp 18 08/22/23 10:00 BP 128/86 08/22/23 07:00 Pulse Ox 99 08/22/23 10:00 FiO2 35 08/22/23 08:00 Intake & Output 08/21/23 08/22/23 08/22/23 18:59 06:59 18:59 Intake Total 9352.374 2677.447 312 Output Total 630 565 245 Balance 742.947 774.447 67 Weight 68.4 kg 71 kg Intake: IV 1011 858 312 Normal Saline Pressure 36 33 12 Bag Sodium Chloride 0.9% 1, 975 825 300 000 ml @ 75 mls/hr IV . [id number] [facility] Rx#:[id number] Intake, IV Titration 340.947 349.447 Amount Clevidipine Butyrate 25 20.901 43.2 mg In Empty Bag 1 bag @ 1 MG/HR 2 mls/hr IV .Q24H [facility] Rx#:[id number] Midazolam HCl 50 mg In 36.601 70.2 Sodium Chloride 0.9% 40 ml @ 1 MG/HR 1 mls/hr IV .Q24H [facility] Rx#:[id number] fentaNYL (PF). 1,000 mcg 100 88.197 In Sodium Chloride 0.9% 80 ml @ 0.5 MCG/KG/HR 3. 005 mls/hr IV .Q24H [facility] Rx#:[id number] propofoL 1,000 mg In 183.445 147.85 Empty Bag 1 bag @ 15 MCG/ KG/MIN 5.715 mls/hr IV . [id number] [facility] Rx#:[id number] Tube Feeding 21 132 Output: Urine 630 565 245 Other: Voiding Method Indwelling Catheter Indwelling Catheter Indwelling Catheter # Bowel Movements 0 ABP, PAP, CO, CI - Last Documented Arterial Blood Pressure 154/74 - Exam No acute distress, sedated, with an orally placed endotracheal tube. HEENT examination is grossly unremarkable. Neck supple. Full range of motion. No adenopathy thyromegaly or neck vein distention. Cardiovascular examination reveals regular rhythm rate. S1-S2 normal. No S3 or S4. No discernible murmur noted. Heart sounds are distant. Heart rate 73 bpm. Lungs reveal scattered bilateral rhonchi. No wheezes or crackles. Breath sounds equal. Saturations are 99% Abdomen soft, with bowel sounds. No masses or tenderness. Extremities are intact. No cyanosis clubbing or edema. Skin is without rash or lesion. Neurologic examination cannot be adequately assessed at this time. - Labs CBC & Chem 7: 08/22/23 05:25 08/22/23 05:25 Labs: Abnormal Lab Results - Last 24 Hours (Table) 08/21/23 08/21/23 08/21/23 Range/Units 11:51 17:51 23:30 WBC (3.8-10.6) k/uL RBC (3.80-5.40) m/uL MCV (80.0-100.0) fL Neutrophils # (1.3-7.7) k/uL Lymphocytes # (1.0-4.8) k/uL ABG pCO2 (35-45) mmHg ABG pO2 (83-108) mmHg ABG HCO3 (21-25) mmol/L ABG Total CO2 (19-24) mmol/L Sodium (137-145) mmol/L Chloride (98-107) mmol/L Carbon Dioxide (22-30) mmol/L BUN (7-17) mg/dL Creatinine (0.52-1.04) mg/dL Glucose (74-99) mg/dL POC Glucose (mg/dL) 154 H 164 H 162 H (70-110) mg/dL Calcium (8.4-10.2) mg/dL Magnesium (1.6-2.3) mg/dL 08/22/23 08/22/23 08/22/23 Range/Units 05:25 05:25 05:39 WBC 10.7 H (3.8-10.6) k/uL RBC 3.62 L (3.80-5.40) m/uL MCV 102.1 H (80.0-100.0) fL Neutrophils # 9.6 H (1.3-7.7) k/uL Lymphocytes # 0.6 L (1.0-4.8) k/uL ABG pCO2 (35-45) mmHg ABG pO2 (83-108) mmHg ABG HCO3 (21-25) mmol/L ABG Total CO2 (19-24) mmol/L Sodium 135 L (137-145) mmol/L Chloride 97 L (98-107) mmol/L Carbon Dioxide 36 H (22-30) mmol/L BUN 25 H (7-17) mg/dL Creatinine 0.36 L (0.52-1.04) mg/dL Glucose 136 H (74-99) mg/dL POC Glucose (mg/dL) 136 H (70-110) mg/dL Calcium 7.9 L (8.4-10.2) mg/dL Magnesium 2.4 H (1.6-2.3) mg/dL 08/22/23 Range/Units 06:10 WBC (3.8-10.6) k/uL RBC (3.80-5.40) m/uL MCV (80.0-100.0) fL Neutrophils # (1.3-7.7) k/uL Lymphocytes # (1.0-4.8) k/uL ABG pCO2 67 H (35-45) mmHg ABG pO2 80 L (83-108) mmHg ABG HCO3 44 H* (21-25) mmol/L ABG Total CO2 46 H (19-24) mmol/L Sodium (137-145) mmol/L Chloride (98-107) mmol/L Carbon Dioxide (22-30) mmol/L BUN (7-17) mg/dL Creatinine (0.52-1.04) mg/dL Glucose (74-99) mg/dL POC Glucose (mg/dL) (70-110) mg/dL Calcium (8.4-10.2) mg/dL Magnesium (1.6-2.3) mg/dL Microbiology - Last 24 Hours (Table) 08/13/23 13:30 Acid Fast Bacilli Smear - Preliminary Sputum Acid Fast Bacilli Culture - Preliminary Assessment and Plan Assessment: Acute hypoxemic respiratory failure, secondary to COPD exacerbation, status post intubation and mechanical ventilation on August 13, 2023. Anticipated tracheostomy and PEG tube placement, August 22, 2023. Advanced COPD. Left upper lobe pulmonary nodule, 9 mm. History of HIV. Status post bronchoscopy and BAL, August 12, nondiagnostic. Sputum samples, positive for Rimma albicans. Plan: Plan dated August 21, 2023. The patient has not really made any headway towards weaning and extubation. She was intubated on August 12. She has not been intubated for 9 days. Will ask surgery for tracheostomy and PEG tube placement. Patient continues on propofol, fentanyl, and Versed. She is receiving tube feedings. Blood gases have been reviewed. Labs, x-rays, and all medications are reviewed. Prognosis is guarded. We will continue to follow make recommendations along the way. Plan dated August 22, 2023. The patient's tube feeds are on hold, for anticipated tracheostomy tube placement and PEG tube placement today. The patient has a very high peak airway pressure 37 cm of water, and a plateau pressure of 20. The large peak to plateau difference, suggest increased airway resistance. Labs, x-rays, and medications are reviewed. The patient is maintained on propofol, fentanyl, and Versed. Blood gases show pO2 of 80, pCO2 of 67, and a pH of 7.42. Labs, x- rays, medications are reviewed. Prognosis is certainly guarded. We will continue to follow the patient, and make recommendations along the way. Time with Patient: Greater than 30
[2023-08-22 12:46] LABS: Glucose,Whole Blood 139 mg/dL (70-110)
--- NOTE | 2023-08-22 14:12 | P.PN ---
Subjective Progress Note Date: 08/21/23 Principal diagnosis: Reason for follow-up is HIV and possible pneumonia Patient is a 52-year-old female with a past medical history significant for HIV on Biktarvy, also with a history of COPD presenting to the hospital for evaluation of increasing shortness of breath patient did have worsening respiratory status got intubated, patient did have a CT angiogram of the chest that was negative for PE did shows a lung nodule did not mention any infiltrate or consolidation. On today's evaluation that is 08/21/2023, Patient is afebrile patient is currently on on the vent FiO2 of 35% no significant purulent secretions through the ET patient oriented to face no diarrhea has been reported patient requiring any pressor support Patient did have white count 11.6 creatinine is 0.29 Objective - Vital Signs Vital signs: Vital Signs Temp 98.6 F 08/21/23 20:00 Pulse 100 08/21/23 21:00 Resp 27 H 08/21/23 21:00 BP 113/63 08/21/23 21:00 Pulse Ox 97 08/21/23 21:00 FiO2 35 08/21/23 21:00 Intake & Output 08/21/23 08/21/23 08/22/23 06:59 18:59 06:59 Intake Total 7019.901 7724.947 313.05 Output Total 1710 630 150 Balance -26.299 742.947 163.05 Weight 68.4 kg 68.4 kg Intake: IV 936 1011 156 Normal Saline Pressure 36 36 6 Bag Sodium Chloride 0.9% 1, 900 975 150 000 ml @ 75 mls/hr IV . [id number] [facility] Rx#:[id number] Intake, IV Titration 465.701 340.947 91.05 Amount Clevidipine Butyrate 25 110.401 20.901 43.2 mg In Empty Bag 1 bag @ 1 MG/HR 2 mls/hr IV .Q24H [facility] Rx#:[id number] Midazolam HCl 50 mg In 43.199 36.601 Sodium Chloride 0.9% 40 ml @ 1 MG/HR 1 mls/hr IV .Q24H [facility] Rx#:[id number] fentaNYL (PF). 1,000 mcg 58.932 100 In Sodium Chloride 0.9% 80 ml @ 0.5 MCG/KG/HR 3. 005 mls/hr IV .Q24H [facility] Rx#:[id number] propofoL 1,000 mg In 253.169 183.445 47.85 Empty Bag 1 bag @ 15 MCG/ KG/MIN 5.715 mls/hr IV . [id number] [facility] Rx#:[id number] Tube Feeding 252 21 66 Other 30 Output: Urine 1710 630 150 Other: Voiding Method Indwelling Catheter Indwelling Catheter ABP, PAP, CO, CI - Last Documented Arterial Blood Pressure 110/57 - Exam GENERAL DESCRIPTION: Middle-aged female intubated on the vent RESPIRATORY SYSTEM: Unlabored breathing , decreased breath sounds at bases HEART: S1 S2 regular rate and rhythm , ABDOMEN: Soft , no tenderness EXTREMITIES: No edema feet - Labs CBC & Chem 7: 08/22/23 05:25 08/22/23 05:25 Labs: Abnormal Lab Results - Last 24 Hours (Table) 08/20/23 08/21/23 08/21/23 Range/Units 23:24 04:50 04:50 WBC 11.6 H (3.8-10.6) k/uL RBC 3.70 L (3.80-5.40) m/uL MCV 103.5 H (80.0-100.0) fL Neutrophils # 10.5 H (1.3-7.7) k/uL Lymphocytes # 0.5 L (1.0-4.8) k/uL ABG pCO2 (35-45) mmHg ABG pO2 (83-108) mmHg ABG HCO3 (21-25) mmol/L ABG Total CO2 (19-24) mmol/L ABG O2 Saturation (94-97) % Sodium 133 L (137-145) mmol/L Chloride 95 L (98-107) mmol/L Carbon Dioxide 40 H (22-30) mmol/L BUN 23 H (7-17) mg/dL Creatinine 0.29 L (0.52-1.04) mg/dL Glucose 161 H (74-99) mg/dL POC Glucose (mg/dL) 127 H (70-110) mg/dL Calcium 7.7 L (8.4-10.2) mg/dL 08/21/23 08/21/23 08/21/23 Range/Units 05:08 05:38 11:51 WBC (3.8-10.6) k/uL RBC (3.80-5.40) m/uL MCV (80.0-100.0) fL Neutrophils # (1.3-7.7) k/uL Lymphocytes # (1.0-4.8) k/uL ABG pCO2 70 H (35-45) mmHg ABG pO2 63 L (83-108) mmHg ABG HCO3 44 H* (21-25) mmol/L ABG Total CO2 46 H (19-24) mmol/L ABG O2 Saturation 93.9 L (94-97) % Sodium (137-145) mmol/L Chloride (98-107) mmol/L Carbon Dioxide (22-30) mmol/L BUN (7-17) mg/dL Creatinine (0.52-1.04) mg/dL Glucose (74-99) mg/dL POC Glucose (mg/dL) 164 H 154 H (70-110) mg/dL Calcium (8.4-10.2) mg/dL 08/21/23 Range/Units 17:51 WBC (3.8-10.6) k/uL RBC (3.80-5.40) m/uL MCV (80.0-100.0) fL Neutrophils # (1.3-7.7) k/uL Lymphocytes # (1.0-4.8) k/uL ABG pCO2 (35-45) mmHg ABG pO2 (83-108) mmHg ABG HCO3 (21-25) mmol/L ABG Total CO2 (19-24) mmol/L ABG O2 Saturation (94-97) % Sodium (137-145) mmol/L Chloride (98-107) mmol/L Carbon Dioxide (22-30) mmol/L BUN (7-17) mg/dL Creatinine (0.52-1.04) mg/dL Glucose (74-99) mg/dL POC Glucose (mg/dL) 164 H (70-110) mg/dL Calcium (8.4-10.2) mg/dL Microbiology - Last 24 Hours (Table) 08/13/23 13:30 Acid Fast Bacilli Smear - Preliminary Sputum Acid Fast Bacilli Culture - Preliminary Assessment and Plan (1) Acute respiratory failure Current Visit: Yes Status: Acute Code(s): J96.00 - ACUTE RESPIRATORY FAILURE, UNSP W HYPOXIA OR HYPERCAPNIA SNOMED Code(s): 63949100 (2) HIV disease Current Visit: No Status: Acute Code(s): B20 - HUMAN IMMUNODEFICIENCY VIRUS [HIV] DISEASE SNOMED Code(s): 16209740 Plan: 1patient presented to hospital with increasing shortness of breath which is likely multifactorial in this patient who did have a history of COPD and likely COPD is a patient with a tracheobronchitis underlying pneumonia less likely but not entirely excluded 2-patient did have a CT angiogram of the chest that was negative for PE did not show any evidence of pneumonia or interstitial infiltrate 3-patient did have a penicillin allergy that will limit the number of antibiotics safe to use 4-patient sputum is growing Rimma which is likely colonization, pneumocystis and Legionella antigens has been negative, patient is currently being monitored closely off antibiotic therapy 5-patient to continue with Biktarvy for HIV and continue supportive care Dictation was produced using [employer] dictation software. please excuse any grammatical, word or spelling errors. Time with Patient: Less than 30
--- NOTE | 2023-08-22 14:14 | P.PN ---
Subjective Progress Note Date: 08/22/23 Principal diagnosis: Reason for follow-up is HIV and possible pneumonia Patient is a 52-year-old female with a past medical history significant for HIV on Biktarvy, also with a history of COPD presenting to the hospital for evaluation of increasing shortness of breath patient did have worsening respiratory status got intubated, patient did have a CT angiogram of the chest that was negative for PE did shows a lung nodule did not mention any infiltrate or consolidation. On today's evaluation that is 08/22/2023, patient has been afebrile, patient remains to be debated on the vent FiO2 is at 35% no significant purulent secretions through the ET no diarrhea has been reported and the patient not requiring any pressor support per the nursing staff Patient white count is down to 10.7 creatinine 0.36 Objective - Vital Signs Vital signs: Vital Signs Temp 97.7 F 08/22/23 12:00 Pulse 74 08/22/23 14:00 Resp 18 08/22/23 14:00 BP 128/86 08/22/23 07:00 Pulse Ox 98 08/22/23 14:00 FiO2 35 08/22/23 12:00 Intake & Output 08/21/23 08/22/23 08/22/23 18:59 06:59 18:59 Intake Total 6189.244 2705.447 843.4 Output Total 630 565 430 Balance 742.947 774.447 413.4 Weight 68.4 kg 71 kg 71 kg Intake: IV 1011 858 624 Normal Saline Pressure 36 33 24 Bag Sodium Chloride 0.9% 1, 975 825 600 000 ml @ 75 mls/hr IV . [id number] [facility] Rx#:[id number] Intake, IV Titration 340.947 349.447 219.4 Amount Clevidipine Butyrate 25 20.901 43.2 mg In Empty Bag 1 bag @ 1 MG/HR 2 mls/hr IV .Q24H [facility] Rx#:[id number] Midazolam HCl 50 mg In 36.601 70.2 19.4 Sodium Chloride 0.9% 40 ml @ 1 MG/HR 1 mls/hr IV .Q24H [facility] Rx#:[id number] fentaNYL (PF). 1,000 mcg 100 88.197 100 In Sodium Chloride 0.9% 80 ml @ 0.5 MCG/KG/HR 3. 005 mls/hr IV .Q24H [facility] Rx#:[id number] propofoL 1,000 mg In 183.445 147.85 100 Empty Bag 1 bag @ 15 MCG/ KG/MIN 5.715 mls/hr IV . [id number] [facility] Rx#:[id number] Tube Feeding 21 132 Output: Urine 630 565 430 Other: Voiding Method Indwelling Catheter Indwelling Catheter Indwelling Catheter # Bowel Movements 0 ABP, PAP, CO, CI - Last Documented Arterial Blood Pressure 156/74 - Exam GENERAL DESCRIPTION: Middle-aged female intubated on the vent RESPIRATORY SYSTEM: Unlabored breathing , decreased breath sounds at bases HEART: S1 S2 regular rate and rhythm , ABDOMEN: Soft , no tenderness EXTREMITIES: No edema feet - Labs CBC & Chem 7: 08/22/23 05:25 08/22/23 05:25 Labs: Abnormal Lab Results - Last 24 Hours (Table) 08/21/23 08/21/23 08/22/23 Range/Units 17:51 23:30 05:25 WBC 10.7 H (3.8-10.6) k/uL RBC 3.62 L (3.80-5.40) m/uL MCV 102.1 H (80.0-100.0) fL Neutrophils # 9.6 H (1.3-7.7) k/uL Lymphocytes # 0.6 L (1.0-4.8) k/uL ABG pCO2 (35-45) mmHg ABG pO2 (83-108) mmHg ABG HCO3 (21-25) mmol/L ABG Total CO2 (19-24) mmol/L Sodium (137-145) mmol/L Chloride (98-107) mmol/L Carbon Dioxide (22-30) mmol/L BUN (7-17) mg/dL Creatinine (0.52-1.04) mg/dL Glucose (74-99) mg/dL POC Glucose (mg/dL) 164 H 162 H (70-110) mg/dL Calcium (8.4-10.2) mg/dL Magnesium (1.6-2.3) mg/dL 08/22/23 08/22/23 08/22/23 Range/Units 05:25 05:39 06:10 WBC (3.8-10.6) k/uL RBC (3.80-5.40) m/uL MCV (80.0-100.0) fL Neutrophils # (1.3-7.7) k/uL Lymphocytes # (1.0-4.8) k/uL ABG pCO2 67 H (35-45) mmHg ABG pO2 80 L (83-108) mmHg ABG HCO3 44 H* (21-25) mmol/L ABG Total CO2 46 H (19-24) mmol/L Sodium 135 L (137-145) mmol/L Chloride 97 L (98-107) mmol/L Carbon Dioxide 36 H (22-30) mmol/L BUN 25 H (7-17) mg/dL Creatinine 0.36 L (0.52-1.04) mg/dL Glucose 136 H (74-99) mg/dL POC Glucose (mg/dL) 136 H (70-110) mg/dL Calcium 7.9 L (8.4-10.2) mg/dL Magnesium 2.4 H (1.6-2.3) mg/dL 08/22/23 Range/Units 12:43 WBC (3.8-10.6) k/uL RBC (3.80-5.40) m/uL MCV (80.0-100.0) fL Neutrophils # (1.3-7.7) k/uL Lymphocytes # (1.0-4.8) k/uL ABG pCO2 (35-45) mmHg ABG pO2 (83-108) mmHg ABG HCO3 (21-25) mmol/L ABG Total CO2 (19-24) mmol/L Sodium (137-145) mmol/L Chloride (98-107) mmol/L Carbon Dioxide (22-30) mmol/L BUN (7-17) mg/dL Creatinine (0.52-1.04) mg/dL Glucose (74-99) mg/dL POC Glucose (mg/dL) 139 H (70-110) mg/dL Calcium (8.4-10.2) mg/dL Magnesium (1.6-2.3) mg/dL Microbiology - Last 24 Hours (Table) 08/13/23 13:30 Acid Fast Bacilli Smear - Preliminary Sputum Acid Fast Bacilli Culture - Preliminary Assessment and Plan (1) Acute respiratory failure Current Visit: Yes Status: Acute Code(s): J96.00 - ACUTE RESPIRATORY FAILURE, UNSP W HYPOXIA OR HYPERCAPNIA SNOMED Code(s): 96141923 (2) HIV disease Current Visit: No Status: Acute Code(s): B20 - HUMAN IMMUNODEFICIENCY VIRUS [HIV] DISEASE SNOMED Code(s): 54791702 Plan: 1patient presented to hospital with increasing shortness of breath which is likely multifactorial in this patient who did have a history of COPD and likely COPD is a patient with a tracheobronchitis underlying pneumonia less likely but not entirely excluded 2-patient did have a CT angiogram of the chest that was negative for PE did not show any evidence of pneumonia or interstitial infiltrate 3-patient did have a penicillin allergy that will limit the number of antibiotics safe to use 4-patient sputum is growing Rimma which is likely colonization, pneumocystis and Legionella antigens has been negative, patient is currently being monitored closely off antibiotic therapy, did have mild elevated white count yesterday trending down and will be monitored closely 5-patient to continue with Biktarvy for HIV scheduled for trach and PEG as the patient failed to be weaned off the vent as per discussion with nursing staff Dictation was produced using [email or web address] dictation software. please excuse any grammatical, word or spelling errors. Time with Patient: Less than 30
--- NOTE | 2023-08-22 14:39 | P.PN ---
Subjective Progress Note Date: 08/22/23 This is a 52-year-old female who initially came into the hospital due to difficulty breathing and cough. Patient was found to have significant COPD exacerbation and required intubation. She continues in the intensive care unit she is on the mechanical ventilator with an FiO2 of 35% with a PEEP of 5. She is currently on an IV Versed and IV fentanyl infusion as well as IV Solu-Medrol. She is currently sedated with propofol. patient is maintained on Biktarvy also for history of HIV. On enteral feedings. Chest x-ray today shows improved aeration of the lung bases. Labs today reveal a white blood cell count of 11.6, sodium 133, BUN of 23, creatinine of 0.29. Her glucose is in the 120s to 130s range. CO2 of 40. Sputum culture was found to be positive for Rimma. She is being considered for trach and PEG tube placement. 08/22/2023 Patient evaluated in follow up today in the ICU. Remains on the mechanical ventilator with FiO2 of 35% and PEEP of 5. Patient is scheduled for PEG/Trach placement today. Remains on IV fentanyl, IV versed, IV propofol, IV solumedrol. Patient is being hydrated with normal saline. Chest xray today shows no focal infiltrates. Unable to complete a review of systems as patient is currently intubated and sedated on the mechanical ventilator PHYSICAL EXAMINATION: GENERAL: The patient is alert and oriented x0, not in any acute distress. Well developed, well nourished. Sedated. HEENT: Pupils are round and equally reacting to light. EOMI. No scleral icterus. No conjunctival pallor. Normocephalic, atraumatic. No pharyngeal erythema. No thyromegaly. CARDIOVASCULAR: S1 and S2 present. No murmurs, rubs, or gallops. PULMONARY: Chest is clear to auscultation, no wheezing or crackles. ABDOMEN: Soft, nontender, nondistended, normoactive bowel sounds. No palpable organomegaly. MUSCULOSKELETAL: No joint swelling or deformity. EXTREMITIES: No cyanosis, clubbing, or pedal edema. NEUROLOGICAL: Unable to asses pt is sedated SKIN: No rashes. Assessment and Plan -Acute exacerbation of chronic COPD -Acute hypoxemic hypercapnic respiratory failure requiring mechanical intubation -Rimma albicans in the sputum -Left upper lobe nodule -Steroid induced hyperglycemia -Advanced COPD at baseline -History of smoking -History of HIV currently on Biktarvy. Viral count and CD4 counts are not known. No previous history of a persistent infections. The patient has not been receiving any form of antibiotic treatments such as Bactrim. Her infectious disease doctor is Dr. Salguero. The CD4 count is at 81 -Chronic nicotine use GI prophylaxis: Protonix DVT prophylaxis: Lovenox Full Code Plan Continue with IV solumedrol, updrafts Mechanical ventilator per rivet tosser Continue on enteral tube feedings Continue accuchecks Q6h and sliding scale insulin Patient is being considered for trach and PEG tube placement Continues on propofol, fentanyl and versed Repeat labs in the AM The impression and plan of care has been dictated by Vangie Barton, Nurse Practitioner as directed. Dr. Dann MD I have performed a history and physical examination and medical decision making of this patient, discussed the same with the dictator, and agree with the d ictators assessment and plan as written, documented as a scribe. Based on total visit time, I have performed more than 50% of this visit. Objective - Vital Signs Vital signs: Vital Signs Temp 97.7 F 08/22/23 12:00 Pulse 79 08/22/23 12:00 Resp 18 08/22/23 12:00 BP 128/86 08/22/23 07:00 Pulse Ox 98 08/22/23 12:00 FiO2 35 08/22/23 12:00 Intake & Output 08/21/23 08/22/23 08/22/23 18:59 06:59 18:59 Intake Total 6429.685 3784.447 587.4 Output Total 630 565 330 Balance 742.947 774.447 257.4 Weight 68.4 kg 71 kg Intake: IV 1011 858 468 Normal Saline Pressure 36 33 18 Bag Sodium Chloride 0.9% 1, 975 825 450 000 ml @ 75 mls/hr IV . [id number] [facility] Rx#:[id number] Intake, IV Titration 340.947 349.447 119.4 Amount Clevidipine Butyrate 25 20.901 43.2 mg In Empty Bag 1 bag @ 1 MG/HR 2 mls/hr IV .Q24H [facility] Rx#:[id number] Midazolam HCl 50 mg In 36.601 70.2 19.4 Sodium Chloride 0.9% 40 ml @ 1 MG/HR 1 mls/hr IV .Q24H [facility] Rx#:[id number] fentaNYL (PF). 1,000 mcg 100 88.197 100 In Sodium Chloride 0.9% 80 ml @ 0.5 MCG/KG/HR 3. 005 mls/hr IV .Q24H [facility] Rx#:[id number] propofoL 1,000 mg In 183.445 147.85 Empty Bag 1 bag @ 15 MCG/ KG/MIN 5.715 mls/hr IV . [id number] [facility] Rx#:[id number] Tube Feeding 21 132 Output: Urine 630 565 330 Other: Voiding Method Indwelling Catheter Indwelling Catheter Indwelling Catheter # Bowel Movements 0 ABP, PAP, CO, CI - Last Documented Arterial Blood Pressure 151/71 - Labs CBC & Chem 7: 08/22/23 05:25 08/22/23 05:25 Labs: Abnormal Lab Results - Last 24 Hours (Table) 08/21/23 08/21/23 08/22/23 Range/Units 17:51 23:30 05:25 WBC 10.7 H (3.8-10.6) k/uL RBC 3.62 L (3.80-5.40) m/uL MCV 102.1 H (80.0-100.0) fL Neutrophils # 9.6 H (1.3-7.7) k/uL Lymphocytes # 0.6 L (1.0-4.8) k/uL ABG pCO2 (35-45) mmHg ABG pO2 (83-108) mmHg ABG HCO3 (21-25) mmol/L ABG Total CO2 (19-24) mmol/L Sodium (137-145) mmol/L Chloride (98-107) mmol/L Carbon Dioxide (22-30) mmol/L BUN (7-17) mg/dL Creatinine (0.52-1.04) mg/dL Glucose (74-99) mg/dL POC Glucose (mg/dL) 164 H 162 H (70-110) mg/dL Calcium (8.4-10.2) mg/dL Magnesium (1.6-2.3) mg/dL 08/22/23 08/22/23 08/22/23 Range/Units 05:25 05:39 06:10 WBC (3.8-10.6) k/uL RBC (3.80-5.40) m/uL MCV (80.0-100.0) fL Neutrophils # (1.3-7.7) k/uL Lymphocytes # (1.0-4.8) k/uL ABG pCO2 67 H (35-45) mmHg ABG pO2 80 L (83-108) mmHg ABG HCO3 44 H* (21-25) mmol/L ABG Total CO2 46 H (19-24) mmol/L Sodium 135 L (137-145) mmol/L Chloride 97 L (98-107) mmol/L Carbon Dioxide 36 H (22-30) mmol/L BUN 25 H (7-17) mg/dL Creatinine 0.36 L (0.52-1.04) mg/dL Glucose 136 H (74-99) mg/dL POC Glucose (mg/dL) 136 H (70-110) mg/dL Calcium 7.9 L (8.4-10.2) mg/dL Magnesium 2.4 H (1.6-2.3) mg/dL 08/22/23 Range/Units 12:43 WBC (3.8-10.6) k/uL RBC (3.80-5.40) m/uL MCV (80.0-100.0) fL Neutrophils # (1.3-7.7) k/uL Lymphocytes # (1.0-4.8) k/uL ABG pCO2 (35-45) mmHg ABG pO2 (83-108) mmHg ABG HCO3 (21-25) mmol/L ABG Total CO2 (19-24) mmol/L Sodium (137-145) mmol/L Chloride (98-107) mmol/L Carbon Dioxide (22-30) mmol/L BUN (7-17) mg/dL Creatinine (0.52-1.04) mg/dL Glucose (74-99) mg/dL POC Glucose (mg/dL) 139 H (70-110) mg/dL Calcium (8.4-10.2) mg/dL Magnesium (1.6-2.3) mg/dL Microbiology - Last 24 Hours (Table) 08/13/23 13:30 Acid Fast Bacilli Smear - Preliminary Sputum Acid Fast Bacilli Culture - Preliminary Assessment and Plan Time with Patient: Less than 30
--- NOTE | 2023-08-22 14:40 | P.PN ---
Subjective Progress Note Date: 08/22/23 CHIEF COMPLAINT: Respiratory failure HISTORY OF PRESENT ILLNESS: Patient remains in the ICU intubated and on mechanical ventilation. Patient having difficulty to wean from the vent. Afebrile. WBC 10.7 PHYSICAL EXAM: VITAL SIGNS: Reviewed. GENERAL: no acute distress. HEENT: No sclera icterus. Moist buccal mucosa. Head is atraumatic, normocephalic. ABDOMEN: Soft. Nondistended. Nontender. NEUROLOGIC: Intubated and sedated ASSESSMENT: 1. Acute hypoxic respiratory failure with difficulty to wean from the vent 2. COPD exacerbation 3. Moderate protein calorie malnutrition 4. History of HIV PLAN: -Patient scheduled for tracheostomy today with Dr. Chiu and PEG tube has been rescheduled for tomorrow Physician Roofing Superintendent note has been reviewed by physician. Signing provider agrees with the documented findings, assessment, and plan of care. Objective - Vital Signs Vital signs: Vital Signs Temp 97.7 F 08/22/23 12:00 Pulse 74 08/22/23 14:00 Resp 18 08/22/23 14:00 BP 128/86 08/22/23 07:00 Pulse Ox 98 08/22/23 14:00 FiO2 35 08/22/23 12:00 Intake & Output 08/21/23 08/22/23 08/22/23 18:59 06:59 18:59 Intake Total 8759.473 8896.447 843.4 Output Total 630 565 430 Balance 742.947 774.447 413.4 Weight 68.4 kg 71 kg 71 kg Intake: IV 1011 858 624 Normal Saline Pressure 36 33 24 Bag Sodium Chloride 0.9% 1, 975 825 600 000 ml @ 75 mls/hr IV . [id number] [facility] Rx#:[id number] Intake, IV Titration 340.947 349.447 219.4 Amount Clevidipine Butyrate 25 20.901 43.2 mg In Empty Bag 1 bag @ 1 MG/HR 2 mls/hr IV .Q24H [facility] Rx#:[id number] Midazolam HCl 50 mg In 36.601 70.2 19.4 Sodium Chloride 0.9% 40 ml @ 1 MG/HR 1 mls/hr IV .Q24H [facility] Rx#:[id number] fentaNYL (PF). 1,000 mcg 100 88.197 100 In Sodium Chloride 0.9% 80 ml @ 0.5 MCG/KG/HR 3. 005 mls/hr IV .Q24H [facility] Rx#:[id number] propofoL 1,000 mg In 183.445 147.85 100 Empty Bag 1 bag @ 15 MCG/ KG/MIN 5.715 mls/hr IV . [id number] [facility] Rx#:[id number] Tube Feeding 21 132 Output: Urine 630 565 430 Other: Voiding Method Indwelling Catheter Indwelling Catheter Indwelling Catheter # Bowel Movements 0 ABP, PAP, CO, CI - Last Documented Arterial Blood Pressure 156/74 - Labs CBC & Chem 7: 08/22/23 05:25 08/22/23 05:25 Labs: Abnormal Lab Results - Last 24 Hours (Table) 08/21/23 08/21/23 08/22/23 Range/Units 17:51 23:30 05:25 WBC 10.7 H (3.8-10.6) k/uL RBC 3.62 L (3.80-5.40) m/uL MCV 102.1 H (80.0-100.0) fL Neutrophils # 9.6 H (1.3-7.7) k/uL Lymphocytes # 0.6 L (1.0-4.8) k/uL ABG pCO2 (35-45) mmHg ABG pO2 (83-108) mmHg ABG HCO3 (21-25) mmol/L ABG Total CO2 (19-24) mmol/L Sodium (137-145) mmol/L Chloride (98-107) mmol/L Carbon Dioxide (22-30) mmol/L BUN (7-17) mg/dL Creatinine (0.52-1.04) mg/dL Glucose (74-99) mg/dL POC Glucose (mg/dL) 164 H 162 H (70-110) mg/dL Calcium (8.4-10.2) mg/dL Magnesium (1.6-2.3) mg/dL 08/22/23 08/22/23 08/22/23 Range/Units 05:25 05:39 06:10 WBC (3.8-10.6) k/uL RBC (3.80-5.40) m/uL MCV (80.0-100.0) fL Neutrophils # (1.3-7.7) k/uL Lymphocytes # (1.0-4.8) k/uL ABG pCO2 67 H (35-45) mmHg ABG pO2 80 L (83-108) mmHg ABG HCO3 44 H* (21-25) mmol/L ABG Total CO2 46 H (19-24) mmol/L Sodium 135 L (137-145) mmol/L Chloride 97 L (98-107) mmol/L Carbon Dioxide 36 H (22-30) mmol/L BUN 25 H (7-17) mg/dL Creatinine 0.36 L (0.52-1.04) mg/dL Glucose 136 H (74-99) mg/dL POC Glucose (mg/dL) 136 H (70-110) mg/dL Calcium 7.9 L (8.4-10.2) mg/dL Magnesium 2.4 H (1.6-2.3) mg/dL 08/22/23 Range/Units 12:43 WBC (3.8-10.6) k/uL RBC (3.80-5.40) m/uL MCV (80.0-100.0) fL Neutrophils # (1.3-7.7) k/uL Lymphocytes # (1.0-4.8) k/uL ABG pCO2 (35-45) mmHg ABG pO2 (83-108) mmHg ABG HCO3 (21-25) mmol/L ABG Total CO2 (19-24) mmol/L Sodium (137-145) mmol/L Chloride (98-107) mmol/L Carbon Dioxide (22-30) mmol/L BUN (7-17) mg/dL Creatinine (0.52-1.04) mg/dL Glucose (74-99) mg/dL POC Glucose (mg/dL) 139 H (70-110) mg/dL Calcium (8.4-10.2) mg/dL Magnesium (1.6-2.3) mg/dL Microbiology - Last 24 Hours (Table) 08/13/23 13:30 Acid Fast Bacilli Smear - Preliminary Sputum Acid Fast Bacilli Culture - Preliminary
[2023-08-22 18:06] LABS: Glucose,Whole Blood 124 mg/dL (70-110)
[2023-08-23 00:12] LABS: Glucose,Whole Blood 112 mg/dL (70-110)
[2023-08-23 05:09] LABS: Basophils % (A) 0 %; Eosinophils % (A) 0 %; HCT 37.4 % (34.0-46.0); Lymphocytes # (A) 0.5 k/uL (1.0-4.8); Lymphocytes % (A) 4 %; MCH 32.6 pg (25.0-35.0); MCHC 32.1 g/dL (31.0-37.0); MCV 101.3 fL (80.0-100.0); Mean Platelet Volume 7.5; Monocytes # (A) 0.5 k/uL (0-1.0); Monocytes % (A) 4 %; Neutrophils # (A) 12.2 k/uL (1.3-7.7); Neutrophils % (A) 92 %; Platelet Count 230 k/uL (150-450); RBC 3.69 m/uL (3.80-5.40); RDW 13.3 % (11.5-15.5); WBC 13.4 k/uL (3.8-10.6)
[2023-08-23 05:29] LABS: African American GFR (CKD) >90 (>60 ml/min/1.73 sqM); Blood Urea Nitrogen 19 mg/dL (7-17); Calcium 8.1 mg/dL (8.4-10.2); Chloride 100 mmol/L (98-107); Glucose 134 mg/dL (74-99); Non-African American GFR(CKD) >90 (>60 ml/min/1.73 sqM); Potassium 4.1 mmol/L (3.5-5.1); Sodium 136 mmol/L (137-145)
[2023-08-23 05:32] LABS: Glucose,Whole Blood 128 mg/dL (70-110)
[2023-08-23 05:35] LABS: Anion Gap -6 mmol/L
[2023-08-23 05:38] LABS: ABG Base Excess 18.1 mmol/L; ABG Oxygen Saturation 98.2 % (94-97); ABG PCO2 63 mmHg (35-45); ABG PH 7.44 (7.35-7.45); ABG PO2 91 mmHg (83-108); ABG TCO2 44 mmol/L (19-24); Allen Test Performed? Yes
[2023-08-23 05:43] LABS: ABG HCO3 42 mmol/L (21-25)
[2023-08-23 05:46] LABS: Carbon Dioxide 42 mmol/L (22-30)
--- NOTE | 2023-08-23 07:33 | XR ---
EXAMINATION TYPE: XR chest 1V portable DATE OF EXAM: 08/23/2023 COMPARISON: NONE HISTORY: SOB, Follow Up FINDINGS: Indwelling tubes and catheters are unchanged. Vascular crowding left medial lung base. No definite focal consolidation. Stable appearance of the cardio-mediastinal structures at this time. IMPRESSION: 1. Stable portable chest. Clinical correlation and follow up until resolution is recommended.
[2023-08-23] MEDS: LIDOCAINE 1% INJ 10MG/ML (20 ML MDV) SQ ONE (10:44)
--- NOTE | 2023-08-23 11:29 | P.PN ---
Subjective Progress Note Date: 08/23/23 Principal diagnosis: Respiratory failure. Patient was elevated today on 08/16/2023, remains in the ICU, intubated and mechanically ventilated. Remains on assist-control rate of 18 tidal volume 350 FiO2 35% PEEP of 5 ABG showed a pO2 of 103 pCO2 68 pH of 7.31, hence no changes were made in vent settings. Patient continues to have relatively high peak airway pressures in the high 30s. Continues to be tight and seems to have poor air exchange. Yesterday the patient was given a trial off Nimbex, however could not tolerate going off Nimbex in spite of using propofol fentanyl and Versed. Patient had to go back on Nimbex yesterday because of extreme agitation and she was not synchronous with the ventilator, noted to be tachypneic, tachycardic, and she was bucking the ventilator. Not to mention she was developing significantly high airway pressure. Today the patient is back on Nimbex at 2 mcg/kg/min Fentanyl 1 mcg/kg/h propofol 60 mcg/kg/min she is receiving vital AF she is also 1.9 normal saline at 75 cc/h. Remains on antibiotics in the form of Levaquin and cefepime. Her cultures have been negative including BAL culture, she did have Rimma, doubt any significance, I infectious disease is addressing. Considering what I have noted yesterday when the patient was off Nimbex, and considering her overall clinical condition today, I have no plans to discontinue discontinue Nimbex today. Will continue with the present cocktail sedation including Nimbex fentanyl and propofol, and will continue mechanical ventilation without any major change. Also continue antibiotics. And bronchodilators as well as IV Solu-Medrol. Reevaluate today on 08/17/2023, patient remains in the ICU, intubated and mechanically ventilated. Remains on assist-control rate of 18 tidal volume 350 FiO2 35% and PEEP of 5 ABG showed a pO2 of 102 pCO2 65 pH of 7.33. Chest x-ray continues to show no evidence of any active process. Patient remains on propofol at 60 mcg/kg/min, Nimbex at 2 mcg/kg/min Fentanyl at 1 mcg/kg/h patient is receiving vital AF at she is remains on cefepime and Levaquin as per ID on the case. Today I plan to discontinue Nimbex and see if we could control patient's agitation adequately will fentanyl propofol and Versed if needed. Have tried in the past doing this, could not ventilate the patient without having to use Nimbex. However will try again to discontinue Nimbex and try to manage the patient with fentanyl propofol and Versed if possible. Otherwise I will place her back on Nimbex. Patient is hemodynamically stable, she is not requiring any pressors. She is receiving antibiotics is also receiving enteral feeding, and she is on GI and DVT prophylaxis. Reevaluate today on 08/18/2023, patient remains in the ICU, intubated and mechanically ventilated, on assist-control rate of 18 tidal volume 350 FiO2 35% PEEP of 5 ABG showed a pO2 of 85 pCO2 66 pH of 7.35 hence no changes were made in ventilator settings. Patient remains on fentanyl at 2 mcg/kg/h, Versed 4 mg/h propofol at 70 mcg/kg/min she is off Nimbex now for the last 24 hours, and able to control patient with sedation as such. Patient is on vital AF , the plan is to cut down her propofol to 50 and increase her Versed if needed. No plans to wean and extubate today, however will start possibly attempting sedation holidays beginning tomorrow. Chest x-ray continues to show no evidence of active disease. WBC count is 5.9 hemoglobin is 11.9 basic metabolic profile is normal renal profile is normal Patient was reevaluated today on 08/19/2023, remains in the ICU, intubated and mechanically ventilated, presently on assist-control rate of 18 tidal volume 350 FiO2 35% PEEP of 5 ABG showed a pO2 of 84 pCO2 68 pH of 7.35. Patient is close most likely to her baseline pCO2 in the 60s. Patient is on enteral feeding/vital HP she is also on propofol at 15 but the plan to increase up to 50 and discontinue Versed which is 3 mg/h at present patient is also on fentanyl 1 mcg/kg/h and an IV fluid at 75 cc/h in the form of saline. I am planning today to hold sedation, and assess mental status, but I am not planning to proceed to extubation. Her overall pulmonary status remains marginal at best, chest x-ray showed COPD but no evidence of pneumonia. WBC count is normal 7.3 hemoglobin is 11.9 basic metabolic profile is normal bicarb is 36 renal profile is normal Patient evaluated today on 08/20/2023, remains in the ICU, intubated and mechanically ventilated. Patient was given sedation holiday yesterday and early this morning, she gets extremely restless agitated, she was able to wiggle toes only, could not get any other responses on lower doses of sedation. However considering the patient is quite hypertensive off sedation, considering that the patient is definitely not ready for any form of weaning, the plan is to place back on fentanyl at 1 mcg/kg/h propofol will be increased back to 50 mcg/kg/min and will use Versed if necessary presently Versed is on hold. She is on 0.9 normal saline at 75 cc/h she is on Cleviprex at 13 mg/h patient is remains on antibiotics/Levaquin. Patient is developing a minimal patchy opacity in the right lower lobe which was not present previously, she is definitely a good set up for developing pneumonia. Ventilator settings today are assist-control rate of 18 tidal volume 350 FiO2 35% PEEP of 5 ABG showed a pO2 of 71 pCO2 68 pH of 7.40 hence no changes were made in vent settings. WBC count is 10.1 hemoglobin is 12 basic metabolic profile is normal except bicarb of 39 BUN is 33 creatinine 0.3 Progress note dated August 21, 2023. This is a 52-year-old female who was admitted on August 09. She came in with COPD exacerbation, and was intubated on August 12. She remains on the ventilator. She is on volume assist-control, rate 18, tidal volume 350, FiO2 35%, and PEEP of 5. Blood gases show pO2 of 63, pCO2 of 70, pH is 7.40. She continues on propofol at 40 mcg/kg/min, fentanyl at 1.5 mcg/kg/h, and Versed at 3 mg an hour. She is getting saline at 75 cc an hour, and vital AF at goal, which is 21 cc an hour. Because she has not made any headway towards weaning and extubation, we will ask surgery for tracheostomy and PEG tube placement. Current laboratory includes a white count 11.6, hemoglobin 12.2, hematocrit 38.3, and a normal platelet count. Sodium 133, potassium 4.1, chloride 95, CO2 40, BUN 23, and creatinine 0.29. Calcium 7.7. Sputum and bronchial washings were positive only for Rimma albicans. Chest x-ray shows improved aeration at the lung bases. Progress note dated August 22, 2023. This is a 52-year-old female who was admitted on August 09. She came in with COPD exacerbation, and was intubated on August 12. She remains on the ventilator. The patient's ventilator settings include volume assist-control, rate 18, tidal volume 350, FiO2 35%, and PEEP of 5. Blood gases show pO2 of 80, pCO2 of 67, pH is 7.42. The patient is getting saline at 75 cc an hour, propofol at 55 mcg/kg/min, fentanyl at 1.5 mcg/kg/h, Versed at 6 mg an hour, and tube feedings are on hold, for possible tracheostomy and PEG tube placement today. The patient's peak airway pressures 37, with a plateau pressure of 20. White count of 10.7, hemoglobin 11.6, hematocrit 37, and platelet count was normal. Sodium 135, potassium 4.5, chlorides 97, CO2 36, BUN 25, and creatinine is 0.36. Glucose is 136. Magnesium 2.4. Calcium 7.9. Chest x-ray shows no changes, compared to the prior chest x-ray. Progress note dated August 23, 2023. 52-year-old female admitted on August 09. She was admitted with a diagnosis of COPD exacerbation, and was intubated on August 12. She remains on the ventilator. Hopefully, today she will go for a tracheostomy, and PEG tube placement. She remains on the ventilator, with settings of volume assist- control, rate 18, tidal volume 350, FiO2 35%, and PEEP of 5. Blood gases show pO2 of 91, pCO2 of 63, pH is 7.44. The patient continues on saline at 75 cc an hour, Versed drip at 6 mg an hour, propofol at 55 mcg/kg/min, and fentanyl at 1.5 mcg/kg/h. Tube feeds are on hold. Will also ask for a PICC line, from interventional radiology. Currently, white count 13.4, globin 12, hematocrit 37.4, and platelet count 230,000. Sodium 136, potassium 4.1, chlorides 100, CO2 42, BUN 19, creatinine 0.30. Calcium is 8.1. Glucose is 128. Sputum, and bronchoscopy washings, does show evidence of Rimma albicans. Chest x-ray shows no definite focal consolidations. Objective - Vital Signs Vital signs: Vital Signs Temp 97.6 F 08/23/23 04:00 Pulse 104 H 08/23/23 11:00 Resp 20 08/23/23 11:00 BP 130/83 08/23/23 11:00 Pulse Ox 93 L 08/23/23 11:00 FiO2 35 08/23/23 10:43 Intake & Output 08/22/23 08/23/23 08/23/23 18:59 06:59 18:59 Intake Total 2420.617 4074.839 399.313 Output Total 760 2305 95 Balance 598.222 -970.161 304.313 Weight 71 kg 67.6 kg Intake: IV 936 861 234 Normal Saline Pressure 36 36 9 Bag Sodium Chloride 0.9% 1, 900 825 225 000 ml @ 75 mls/hr IV . [id number] [facility] Rx#:[id number] Intake, IV Titration 362.222 413.839 165.313 Amount Clevidipine Butyrate 25 0.067 52.5 mg In Empty Bag 1 bag @ 1 MG/HR 2 mls/hr IV .Q24H [facility] Rx#:[id number] Midazolam HCl 50 mg In 19.4 97.6 Sodium Chloride 0.9% 40 ml @ 1 MG/HR 1 mls/hr IV .Q24H [facility] Rx#:[id number] fentaNYL (PF). 1,000 mcg 154.391 45.609 100 In Sodium Chloride 0.9% 80 ml @ 0.5 MCG/KG/HR 3. 005 mls/hr IV .Q24H [facility] Rx#:[id number] propofoL 1,000 mg In 188.364 218.130 65.313 Empty Bag 1 bag @ 15 MCG/ KG/MIN 5.715 mls/hr IV . [id number] [facility] Rx#:[id number] Oral 60 Other 60 Output: Urine 760 2305 90 Estimated Blood Loss 5 Other: Voiding Method Indwelling Catheter Indwelling Catheter Indwelling Catheter # Bowel Movements 0 ABP, PAP, CO, CI - Last Documented Arterial Blood Pressure 152/86 - Exam No acute distress, sedated, with an orally placed endotracheal tube. HEENT examination is grossly unremarkable. Neck supple. Full range of motion. No adenopathy thyromegaly or neck vein distention. Cardiovascular examination reveals regular rhythm rate. S1-S2 normal. No S3 or S4. No discernible murmur noted. Heart sounds are distant. Heart rate 89 bpm. Lungs reveal scattered bilateral rhonchi. No wheezes or crackles. Breath sounds equal. Saturations are 97 % Abdomen soft, with bowel sounds. No masses or tenderness. Extremities are intact. No cyanosis clubbing or edema. Skin is without rash or lesion. Neurologic examination cannot be adequately assessed at this time. - Labs CBC & Chem 7: 08/23/23 04:54 08/23/23 04:54 Labs: Abnormal Lab Results - Last 24 Hours (Table) 08/22/23 08/22/23 08/23/23 Range/Units 12:43 18:05 00:11 WBC (3.8-10.6) k/uL RBC (3.80-5.40) m/uL MCV (80.0-100.0) fL Neutrophils # (1.3-7.7) k/uL Lymphocytes # (1.0-4.8) k/uL ABG pCO2 (35-45) mmHg ABG HCO3 (21-25) mmol/L ABG Total CO2 (19-24) mmol/L ABG O2 Saturation (94-97) % Sodium (137-145) mmol/L Carbon Dioxide (22-30) mmol/L BUN (7-17) mg/dL Creatinine (0.52-1.04) mg/dL Glucose (74-99) mg/dL POC Glucose (mg/dL) 139 H 124 H 112 H (70-110) mg/dL Calcium (8.4-10.2) mg/dL 08/23/23 08/23/23 08/23/23 Range/Units 04:54 04:54 05:30 WBC 13.4 H (3.8-10.6) k/uL RBC 3.69 L (3.80-5.40) m/uL MCV 101.3 H (80.0-100.0) fL Neutrophils # 12.2 H (1.3-7.7) k/uL Lymphocytes # 0.5 L (1.0-4.8) k/uL ABG pCO2 (35-45) mmHg ABG HCO3 (21-25) mmol/L ABG Total CO2 (19-24) mmol/L ABG O2 Saturation (94-97) % Sodium 136 L (137-145) mmol/L Carbon Dioxide 42 H* (22-30) mmol/L BUN 19 H (7-17) mg/dL Creatinine 0.30 L (0.52-1.04) mg/dL Glucose 134 H (74-99) mg/dL POC Glucose (mg/dL) 128 H (70-110) mg/dL Calcium 8.1 L (8.4-10.2) mg/dL 08/23/23 Range/Units 05:40 WBC (3.8-10.6) k/uL RBC (3.80-5.40) m/uL MCV (80.0-100.0) fL Neutrophils # (1.3-7.7) k/uL Lymphocytes # (1.0-4.8) k/uL ABG pCO2 63 H (35-45) mmHg ABG HCO3 42 H* (21-25) mmol/L ABG Total CO2 44 H (19-24) mmol/L ABG O2 Saturation 98.2 H (94-97) % Sodium (137-145) mmol/L Carbon Dioxide (22-30) mmol/L BUN (7-17) mg/dL Creatinine (0.52-1.04) mg/dL Glucose (74-99) mg/dL POC Glucose (mg/dL) (70-110) mg/dL Calcium (8.4-10.2) mg/dL Assessment and Plan Assessment: Acute hypoxemic respiratory failure, secondary to COPD exacerbation, status post intubation and mechanical ventilation on August 13, 2023. Anticipated tracheostomy and PEG tube placement, August 23, 2023. Advanced COPD. Left upper lobe pulmonary nodule, 9 mm. History of HIV. Status post bronchoscopy and BAL, August 12, nondiagnostic. Sputum samples, positive for Rimma albicans. Plan: Plan dated August 21, 2023. The patient has not really made any headway towards weaning and extubation. She was intubated on August 12. She has not been intubated for 9 days. Will ask surgery for tracheostomy and PEG tube placement. Patient continues on propofol, fentanyl, and Versed. She is receiving tube feedings. Blood gases have been reviewed. Labs, x-rays, and all medications are reviewed. Prognosis is guarded. We will continue to follow make recommendations along the way. Plan dated August 22, 2023. The patient's tube feeds are on hold, for anticipated tracheostomy tube placement and PEG tube placement today. The patient has a very high peak airway pressure 37 cm of water, and a plateau pressure of 20. The large peak to p lateau difference, suggest increased airway resistance. Labs, x-rays, and medications are reviewed. The patient is maintained on propofol, fentanyl, and Versed. Blood gases show pO2 of 80, pCO2 of 67, and a pH of 7.42. Labs, x- rays, medications are reviewed. Prognosis is certainly guarded. We will continue to follow the patient, and make recommendations along the way. Plan dated August 23, 2023. The patient is supposed to go to the operating room today, for tracheostomy tube, and feeding tube/PEG tube. In addition, we will ask interventional radiology to place a PICC line on this patient. The patient continues on saline at 75 cc an hour, Versed at 6 mg an hour, propofol at 55 mcg/kg/min, and fentanyl at 1.5 mcg/kg/h. In addition, blood gases show pO2 of 91, pCO2 of 63, and a pH of 7.44. Labs, x-rays, and medications are reviewed. The patient's overall prognosis remains guarded. We will continue to follow the patient, and make recommendations along the way. Time with Patient: Greater than 30
[2023-08-23 11:46] LABS: Glucose,Whole Blood 170 mg/dL (70-110)
--- NOTE | 2023-08-23 12:34 | P.OP ---
Date of Procedure: 08/23/23 Preoperative Diagnosis: malnutrition Respiratory failure Postoperative Diagnosis: malnutrition Respiratory failure Procedure(s) Performed: tracheostomy and PEG tube Anesthesia: FEMI Surgeon: Rocco Chiu Estimated Blood Loss (ml): 5 Pathology: none sent Condition: stable Disposition: PACU Operative Findings: #8 Shiley fenestrated Description of Procedure: The patient's placed on the bed in the supine position. The patient received general anesthesia. The neck was prepped and draped in usual sterile fashion. A standard transverse skin incision was made approximately 2 cm above the sternal notch. Using electrocautery the subcutaneous tissues were divided. The platysma was divided. A Wheatlander retractor was placed in the wound. Next the strap muscles were divided in the midline. Another weatlander retractor was placed the wound. The pretracheal fat was then divided with left cautery. The trachea was exposed. At this point the SILVER CHASER advance the and the tracheal tube into the right mainstem bronchus. The balloon was inflated. A tracheotomy was then performed between the second and third tracheal rings. The perivascular tissues a gracilis the trachea. The endotracheal tube was brought back under direct vision. And then the #8 Portex tracheostomy tube was placed into the trachea. End-tidal CO2 was confirmed. The patient had been connected to the ventilator. The patient was ventilated satisfactory. The skin incision site was then closed with 3-0 nylon after the retractors were withdrawn. An umbilical tie was used to secure the tracheostomy tube. Next the gastroscope placed oropharynx passed in the esophagus and stomach. There is no evidence of any outlet obstruction. Stomach was insufflated with air. The light reflux seen the anterior abdominal wall. The abdomen was prepped and draped usual fashion. The skin was incised. And the needles placed and stomach under direct visualization. The needle was snared. And the wires placed through the needle and the wire was snared and brought the oropharynx. The PEG tube was placed over top the wire brought down to the stomach. The PEG tube was secured. At the 3 cm rubi. The one-piece bolster was used. Patient tolerated procedure well.
--- NOTE | 2023-08-23 16:31 | P.PN ---
Subjective Progress Note Date: 08/23/23 This is a 52-year-old female who initially came into the hospital due to difficulty breathing and cough. Patient was found to have significant COPD exacerbation and required intubation. She continues in the intensive care unit she is on the mechanical ventilator with an FiO2 of 35% with a PEEP of 5. She is currently on an IV Versed and IV fentanyl infusion as well as IV Solu-Medrol. She is currently sedated with propofol. patient is maintained on Biktarvy also for history of HIV. On enteral feedings. Chest x-ray today shows improved aeration of the lung bases. Labs today reveal a white blood cell count of 11.6, sodium 133, BUN of 23, creatinine of 0.29. Her glucose is in the 120s to 130s range. CO2 of 40. Sputum culture was found to be positive for Rimma. She is being considered for trach and PEG tube placement. 08/22/2023 Patient evaluated in follow up today in the ICU. Remains on the mechanical ventilator with FiO2 of 35% and PEEP of 5. Patient is scheduled for PEG/Trach placement today. Remains on IV fentanyl, IV versed, IV propofol, IV solumedrol. Patient is being hydrated with normal saline. Chest xray today shows no focal infiltrates. 08/23/2023 Patient remains in the intensive care unit. Patient is currently on the mechanical ventilator. Patient underwent trach and PEG tube placement today. Remains on IV fentanyl, IV versed, IV propofol, IV solumedrol. Patient remains on Biktarvy. Unable to be considered for rehab or select specialty at this time due to the cost of the Biktarvy medication which will need to be continued at this time. White blood cell count today 13.4, sodium 136, BUN 19, creatinine 0.30. CO2 level 42. Blood glucose 170. Unable to complete a review of systems as patient is currently intubated and sedated on the mechanical ventilator PHYSICAL EXAMINATION: GENERAL: The patient is alert and oriented x0, not in any acute distress. Well developed, well nourished. Sedated. HEENT: Pupils are round and equally reacting to light. EOMI. No scleral icterus. No conjunctival pallor. Normocephalic, atraumatic. No pharyngeal erythema. No thyromegaly. CARDIOVASCULAR: S1 and S2 present. No murmurs, rubs, or gallops. PULMONARY: Chest is clear to auscultation, no wheezing or crackles. ABDOMEN: Soft, nontender, nondistended, normoactive bowel sounds. No palpable organomegaly. MUSCULOSKELETAL: No joint swelling or deformity. EXTREMITIES: No cyanosis, clubbing, or pedal edema. NEUROLOGICAL: Unable to asses pt is sedated SKIN: No rashes. Assessment and Plan -Acute exacerbation of chronic COPD -Acute hypoxemic hypercapnic respiratory failure requiring mechanical intubation -Rimma albicans in the sputum -Left upper lobe nodule -Steroid induced hyperglycemia -Advanced COPD at baseline -History of smoking -History of HIV currently on Biktarvy. Viral count and CD4 counts are not known. No previous history of a persistent infections. The patient has not been receiving any form of antibiotic treatments such as Bactrim. Her infectious disease doctor is Dr. Salguero. The CD4 count is at 81 -Chronic nicotine use GI prophylaxis: Protonix DVT prophylaxis: Lovenox Full Code Plan Continue with IV solumedrol, updrafts Mechanical ventilator per gripper attacher Continue on enteral tube feedings Continue accuchecks Q6h and sliding scale insulin Status post trach and PEG tube placement. Continues on propofol, fentanyl and versed Repeat labs in the AM Prognosis remains guarded. The impression and plan of care has been dictated by Vangie Barton, Nurse Practitioner as directed. Dr. Dann MD I have performed a history and physical examination and medical decision making of this patient, discussed the same with the dictator, and agree with the dictators assessment and plan as written, documented as a scribe. Based on total visit time, I have performed more than 50% of this visit. Objective - Vital Signs Vital signs: Vital Signs Temp 97.6 F 08/23/23 04:00 Pulse 66 08/23/23 13:30 Resp 18 08/23/23 13:30 BP 119/79 08/23/23 13:30 Pulse Ox 100 08/23/23 13:30 FiO2 100 08/23/23 12:00 Intake & Output 08/22/23 08/23/23 08/23/23 18:59 06:59 18:59 Intake Total 1338.668 6805.839 605.313 Output Total 760 2305 150 Balance 598.222 -970.161 455.313 Weight 71 kg 67.6 kg Intake: IV 936 861 390 Normal Saline Pressure 36 36 15 Bag Sodium Chloride 0.9% 1, 900 825 375 000 ml @ 75 mls/hr IV . [id number] [facility] Rx#:[id number] Intake, IV Titration 362.222 413.839 215.313 Amount Clevidipine Butyrate 25 0.067 52.5 mg In Empty Bag 1 bag @ 1 MG/HR 2 mls/hr IV .Q24H [facility] Rx#:[id number] Midazolam HCl 50 mg In 19.4 97.6 50 Sodium Chloride 0.9% 40 ml @ 1 MG/HR 1 mls/hr IV .Q24H [facility] Rx#:[id number] fentaNYL (PF). 1,000 mcg 154.391 45.609 100 In Sodium Chloride 0.9% 80 ml @ 0.5 MCG/KG/HR 3. 005 mls/hr IV .Q24H [facility] Rx#:[id number] propofoL 1,000 mg In 188.364 218.130 65.313 Empty Bag 1 bag @ 15 MCG/ KG/MIN 5.715 mls/hr IV . [id number] [facility] Rx#:[id number] Oral 60 Other 60 Output: Urine 760 2305 145 Estimated Blood Loss 5 Other: Voiding Method Indwelling Catheter Indwelling Catheter Indwelling Catheter # Bowel Movements 0 ABP, PAP, CO, CI - Last Documented Arterial Blood Pressure 143/79 - Labs CBC & Chem 7: 08/23/23 04:54 08/23/23 04:54 Labs: Abnormal Lab Results - Last 24 Hours (Table) 08/22/23 08/23/23 08/23/23 Range/Units 18:05 00:11 04:54 WBC 13.4 H (3.8-10.6) k/uL RBC 3.69 L (3.80-5.40) m/uL MCV 101.3 H (80.0-100.0) fL Neutrophils # 12.2 H (1.3-7.7) k/uL Lymphocytes # 0.5 L (1.0-4.8) k/uL ABG pCO2 (35-45) mmHg ABG HCO3 (21-25) mmol/L ABG Total CO2 (19-24) mmol/L ABG O2 Saturation (94-97) % Sodium (137-145) mmol/L Carbon Dioxide (22-30) mmol/L BUN (7-17) mg/dL Creatinine (0.52-1.04) mg/dL Glucose (74-99) mg/dL POC Glucose (mg/dL) 124 H 112 H (70-110) mg/dL Calcium (8.4-10.2) mg/dL 08/23/23 08/23/23 08/23/23 Range/Units 04:54 05:30 05:40 WBC (3.8-10.6) k/uL RBC (3.80-5.40) m/uL MCV (80.0-100.0) fL Neutrophils # (1.3-7.7) k/uL Lymphocytes # (1.0-4.8) k/uL ABG pCO2 63 H (35-45) mmHg ABG HCO3 42 H* (21-25) mmol/L ABG Total CO2 44 H (19-24) mmol/L ABG O2 Saturation 98.2 H (94-97) % Sodium 136 L (137-145) mmol/L Carbon Dioxide 42 H* (22-30) mmol/L BUN 19 H (7-17) mg/dL Creatinine 0.30 L (0.52-1.04) mg/dL Glucose 134 H (74-99) mg/dL POC Glucose (mg/dL) 128 H (70-110) mg/dL Calcium 8.1 L (8.4-10.2) mg/dL 08/23/23 Range/Units 11:44 WBC (3.8-10.6) k/uL RBC (3.80-5.40) m/uL MCV (80.0-100.0) fL Neutrophils # (1.3-7.7) k/uL Lymphocytes # (1.0-4.8) k/uL ABG pCO2 (35-45) mmHg ABG HCO3 (21-25) mmol/L ABG Total CO2 (19-24) mmol/L ABG O2 Saturation (94-97) % Sodium (137-145) mmol/L Carbon Dioxide (22-30) mmol/L BUN (7-17) mg/dL Creatinine (0.52-1.04) mg/dL Glucose (74-99) mg/dL POC Glucose (mg/dL) 170 H (70-110) mg/dL Calcium (8.4-10.2) mg/dL Assessment and Plan Time with Patient: Less than 30
[2023-08-23 17:12] LABS: Glucose,Whole Blood 130 mg/dL (70-110)
[2023-08-23 17:59] LABS: Glucose,Whole Blood 127 mg/dL (70-110)
[2023-08-23 23:50] LABS: Glucose,Whole Blood 78 mg/dL (70-110)
[2023-08-24 04:28] LABS: Basophils % (A) 0 %; Eosinophils % (A) 0 %; HCT 37.5 % (34.0-46.0); HGB 12.2 gm/dL (11.4-16.0); Lymphocytes # (A) 0.4 k/uL (1.0-4.8); Lymphocytes % (A) 3 %; MCH 32.8 pg (25.0-35.0); MCHC 32.4 g/dL (31.0-37.0); MCV 101.2 fL (80.0-100.0); Macrocytosis Slight; Mean Platelet Volume 7.7; Monocytes # (A) 0.6 k/uL (0-1.0); Monocytes % (A) 4 %; Neutrophils % (A) 93 %; Platelet Count 202 k/uL (150-450); RBC 3.71 m/uL (3.80-5.40); RDW 13.6 % (11.5-15.5)
[2023-08-24 04:33] LABS: ALT 88 U/L (4-34); AST 73 U/L (14-36); African American GFR (CKD) >90 (>60 ml/min/1.73 sqM); Albumin 2.6 g/dL (3.5-5.0); Alkaline Phosphatase 46 U/L (38-126); Blood Urea Nitrogen 26 mg/dL (7-17); Chloride 102 mmol/L (98-107); Glucose 125 mg/dL (74-99); Magnesium 2.3 mg/dL (1.6-2.3); Non-African American GFR(CKD) >90 (>60 ml/min/1.73 sqM); Potassium 4.2 mmol/L (3.5-5.1); Sodium 136 mmol/L (137-145); Total Bilirubin 0.4 mg/dL (0.2-1.3); Total Protein 4.6 g/dL (6.3-8.2)
[2023-08-24 04:39] LABS: Anion Gap 0 mmol/L
[2023-08-24 04:51] LABS: Carbon Dioxide 34 mmol/L (22-30)
[2023-08-24 05:22] LABS: Glucose,Whole Blood 87 mg/dL (70-110)
[2023-08-24 05:51] LABS: ABG Base Excess 15.2 mmol/L; ABG Oxygen Saturation 96.2 % (94-97); ABG PCO2 63 mmHg (35-45); ABG PH 7.41 (7.35-7.45); ABG PO2 76 mmHg (83-108); ABG TCO2 42 mmol/L (19-24); Allen Test Performed? Yes
[2023-08-24 05:52] LABS: ABG HCO3 39 mmol/L (21-25)
--- NOTE | 2023-08-24 07:55 | XR ---
EXAMINATION TYPE: XR chest 1V portable DATE OF EXAM: 08/24/2023 HISTORY: Shortness of breath. COMPARISON: 08/23/2023 TECHNIQUE: Single view of the chest is submitted. FINDINGS: Tracheostomy tube is in place. Left subclavian central venous line unchanged. Increased density right perihilar and right suprahilar region may reflect underlying infiltrate. The heart is stable. Hilar and mediastinal structures are within normal limits. Degenerative changes are seen of the dorsal spine. IMPRESSION: 1. Increased density right perihilar and right suprahilar region may reflect underlying infiltrate.
[2023-08-24] MEDS: LIDOCAINE 1% INJ 10MG/ML (20 ML MDV) SQ ONE (10:21)
--- NOTE | 2023-08-24 11:05 | XR ---
EXAMINATION TYPE: XR chest 1V portable DATE OF EXAM: 08/24/2023 HISTORY: Shortness of breath. COMPARISON: 08/24/2023 TECHNIQUE: Single view of the chest is submitted. FINDINGS: Right-sided PICC line with distal tip overlying the SVC. No evidence for pneumothorax. Tracheostomy t ube in place. Hyperinflation persists. There is no evidence for focal infiltrate. The heart is stable. Hilar and mediastinal structures are within normal limits. Degenerative changes are seen of the dorsal spine. IMPRESSION: 1. Chronic changes without evidence for acute pulmonary disease.
--- NOTE | 2023-08-24 11:19 | P.OP ---
Date of Procedure: 08/24/23 Description of Procedure: Date of Procedure: Preoperative Diagnosis: Need for long-term IV antibiotic access. Postoperative Diagnosis: Same. Procedure(s) Performed: Ultrasound-guided cannulation right brachial vein. Insertion of peripherally inserted central catheter under fluoroscopic guidance using chest x-rays. Anesthesia: local (1% Xylocaine.) Surgeon: Angel Estimated Blood Loss (ml): 5 IV fluids (ml): 0 Urine output (ml): 0 Pathology: none sent Condition: stable Disposition: no change Description of Procedure: Patient was in ICU and remained here for the procedure the right upper extremity sterilely prepped and draped in usual manner. Ultrasound was utilized to identify the brachial vein which was normally compressible free of visible thrombus. There was no suitable appearing basilic or cephalic vein noted. There was significant edema through the tissues. Permenant image was stored. 1% Xylocaine was utilized for local anesthesia tissues overlying the vein. Through this anesthetized area and with the aid of ultrasound a micropuncture needle was utilized to cannulate the vein. Once cannulated, Softip guidewire was advanced into the vein. The needle was withdrawn and a micropuncture sheath and dilator advanced over the guidewire. The guidewire was withdrawn, the PICC line was measured externally. The catheter was cut to size and advanced without resistance. The sheath was peeled away. Site was confirmed with a chest x-ray and interpretation with adequate positioning in the cavoatrial junction. Blood was easily withdrawn through the catheter and the catheter was then flushed with heparinized saline solution and secured to the skin. Patient tolerated procedure well and was returned to their room in satisfactory and stable condition.
[2023-08-24 11:35] LABS: Glucose,Whole Blood 111 mg/dL (70-110)
--- NOTE | 2023-08-24 11:51 | P.PN ---
Subjective Progress Note Date: 08/24/23 CHIEF COMPLAINT: Respiratory failure HISTORY OF PRESENT ILLNESS: Patient remains in the ICU on mechanical ventilation. She is postop day #1 status post tracheostomy and PEG tube placement. Afebrile. WBC 15 PHYSICAL EXAM: VITAL SIGNS: Reviewed. GENERAL: no acute distress. HEENT: Trach site clean dry and intact ABDOMEN: Soft. Nondistended. Nontender. PEG tube site clean dry and intact NEUROLOGIC: Intubated and sedated ASSESSMENT: 1. Acute hypoxic respiratory failure with difficulty to wean from the vent 2. COPD exacerbation 3. Moderate protein calorie malnutrition 4. History of HIV PLAN: -Consult dietitian to start tube feedings today -Continue ICU management -Continue supportive care Physician Voice Studies Director note has been reviewed by physician. Signing provider agrees with the documented findings, assessment, and plan of care. Objective - Vital Signs Vital signs: Vital Signs Temp 97.5 F L 08/24/23 08:00 Pulse 89 08/24/23 11:32 Resp 18 08/24/23 11:32 BP 121/78 08/24/23 10:00 Pulse Ox 98 08/24/23 10:00 FiO2 35 08/24/23 11:27 Intake & Output 08/23/23 08/24/23 08/24/23 18:59 06:59 18:59 Intake Total 3294.513 5747.72 400.65 Output Total 345 525 100 Balance 828.313 825.72 300.65 Weight 74.7 kg Intake: IV 858 1014 234 Normal Saline Pressure 33 39 9 Bag Sodium Chloride 0.9% 1, 825 975 225 000 ml @ 75 mls/hr IV . [id number] [facility] Rx#:[id number] Intake, IV Titration 315.313 336.72 116.65 Amount Midazolam HCl 50 mg In 50 103.0 16.65 Sodium Chloride 0.9% 40 ml @ 1 MG/HR 1 mls/hr IV .Q24H [facility] Rx#:[id number] fentaNYL (PF). 1,000 mcg 100 100 100 In Sodium Chloride 0.9% 80 ml @ 0.5 MCG/KG/HR 3. 005 mls/hr IV .Q24H [facility] Rx#:[id number] propofoL 1,000 mg In 165.313 133.72 Empty Bag 1 bag @ 15 MCG/ KG/MIN 5.715 mls/hr IV . [id number] [facility] Rx#:[id number] Tube Feeding 50 Output: Urine 340 525 100 Estimated Blood Loss 5 Other: Voiding Method Indwelling Catheter Indwelling Catheter Indwelling Catheter ABP, PAP, CO, CI - Last Documented Arterial Blood Pressure 135/64 - Labs CBC & Chem 7: 08/24/23 04:00 08/24/23 04:00 Labs: Abnormal Lab Results - Last 24 Hours (Table) 08/23/23 08/23/23 08/23/23 Range/Units 11:44 17:10 17:58 WBC (3.8-10.6) k/uL RBC (3.80-5.40) m/uL MCV (80.0-100.0) fL Neutrophils # (1.3-7.7) k/uL Lymphocytes # (1.0-4.8) k/uL ABG pCO2 (35-45) mmHg ABG pO2 (83-108) mmHg ABG HCO3 (21-25) mmol/L ABG Total CO2 (19-24) mmol/L Sodium (137-145) mmol/L Carbon Dioxide (22-30) mmol/L BUN (7-17) mg/dL Creatinine (0.52-1.04) mg/dL Glucose (74-99) mg/dL POC Glucose (mg/dL) 170 H 130 H 127 H (70-110) mg/dL Calcium (8.4-10.2) mg/dL AST (14-36) U/L ALT (4-34) U/L Total Protein (6.3-8.2) g/dL Albumin (3.5-5.0) g/dL 08/24/23 08/24/23 08/24/23 Range/Units 04:00 04:00 05:47 WBC 15.0 H (3.8-10.6) k/uL RBC 3.71 L (3.80-5.40) m/uL MCV 101.2 H (80.0-100.0) fL Neutrophils # 14.0 H (1.3-7.7) k/uL Lymphocytes # 0.4 L (1.0-4.8) k/uL ABG pCO2 63 H (35-45) mmHg ABG pO2 76 L (83-108) mmHg ABG HCO3 39 H (21-25) mmol/L ABG Total CO2 42 H (19-24) mmol/L Sodium 136 L (137-145) mmol/L Carbon Dioxide 34 H (22-30) mmol/L BUN 26 H (7-17) mg/dL Creatinine 0.28 L (0.52-1.04) mg/dL Glucose 125 H (74-99) mg/dL POC Glucose (mg/dL) (70-110) mg/dL Calcium 8.0 L (8.4-10.2) mg/dL AST 73 H (14-36) U/L ALT 88 H (4-34) U/L Total Protein 4.6 L (6.3-8.2) g/dL Albumin 2.6 L (3.5-5.0) g/dL 08/24/23 Range/Units 11:33 WBC (3.8-10.6) k/uL RBC (3.80-5.40) m/uL MCV (80.0-100.0) fL Neutrophils # (1.3-7.7) k/uL Lymphocytes # (1.0-4.8) k/uL ABG pCO2 (35-45) mmHg ABG pO2 (83-108) mmHg ABG HCO3 (21-25) mmol/L ABG Total CO2 (19-24) mmol/L Sodium (137-145) mmol/L Carbon Dioxide (22-30) mmol/L BUN (7-17) mg/dL Creatinine (0.52-1.04) mg/dL Glucose (74-99) mg/dL POC Glucose (mg/dL) 111 H (70-110) mg/dL Calcium (8.4-10.2) mg/dL AST (14-36) U/L ALT (4-34) U/L Total Protein (6.3-8.2) g/dL Albumin (3.5-5.0) g/dL
--- NOTE | 2023-08-24 12:07 | P.PN ---
Subjective Progress Note Date: 08/24/23 Principal diagnosis: Respiratory failure. Patient was elevated today on 08/16/2023, remains in the ICU, intubated and mechanically ventilated. Remains on assist-control rate of 18 tidal volume 350 FiO2 35% PEEP of 5 ABG showed a pO2 of 103 pCO2 68 pH of 7.31, hence no changes were made in vent settings. Patient continues to have relatively high peak airway pressures in the high 30s. Continues to be tight and seems to have poor air exchange. Yesterday the patient was given a trial off Nimbex, however could not tolerate going off Nimbex in spite of using propofol fentanyl and Versed. Patient had to go back on Nimbex yesterday because of extreme agitation and she was not synchronous with the ventilator, noted to be tachypneic, tachycardic, and she was bucking the ventilator. Not to mention she was developing significantly high airway pressure. Today the patient is back on Nimbex at 2 mcg/kg/min Fentanyl 1 mcg/kg/h propofol 60 mcg/kg/min she is receiving vital AF she is also 1.9 normal saline at 75 cc/h. Remains on antibiotics in the form of Levaquin and cefepime. Her cultures have been negative including BAL culture, she did have Rimma, doubt any significance, I infectious disease is addressing. Considering what I have noted yesterday when the patient was off Nimbex, and considering her overall clinical condition today, I have no plans to discontinue discontinue Nimbex today. Will continue with the present cocktail sedation including Nimbex fentanyl and propofol, and will continue mechanical ventilation without any major change. Also continue antibiotics. And bronchodilators as well as IV Solu-Medrol. Reevaluate today on 08/17/2023, patient remains in the ICU, intubated and mechanically ventilated. Remains on assist-control rate of 18 tidal volume 350 FiO2 35% and PEEP of 5 ABG showed a pO2 of 102 pCO2 65 pH of 7.33. Chest x-ray continues to show no evidence of any active process. Patient remains on propofol at 60 mcg/kg/min, Nimbex at 2 mcg/kg/min Fentanyl at 1 mcg/kg/h patient is receiving vital AF at she is remains on cefepime and Levaquin as per ID on the case. Today I plan to discontinue Nimbex and see if we could control patient's agitation adequately will fentanyl propofol and Versed if needed. Have tried in the past doing this, could not ventilate the patient without having to use Nimbex. However will try again to discontinue Nimbex and try to manage the patient with fentanyl propofol and Versed if possible. Otherwise I will place her back on Nimbex. Patient is hemodynamically stable, she is not requiring any pressors. She is receiving antibiotics is also receiving enteral feeding, and she is on GI and DVT prophylaxis. Reevaluate today on 08/18/2023, patient remains in the ICU, intubated and mechanically ventilated, on assist-control rate of 18 tidal volume 350 FiO2 35% PEEP of 5 ABG showed a pO2 of 85 pCO2 66 pH of 7.35 hence no changes were made in ventilator settings. Patient remains on fentanyl at 2 mcg/kg/h, Versed 4 mg/h propofol at 70 mcg/kg/min she is off Nimbex now for the last 24 hours, and able to control patient with sedation as such. Patient is on vital AF , the plan is to cut down her propofol to 50 and increase her Versed if needed. No plans to wean and extubate today, however will start possibly attempting sedation holidays beginning tomorrow. Chest x-ray continues to show no evidence of active disease. WBC count is 5.9 hemoglobin is 11.9 basic metabolic profile is normal renal profile is normal Patient was reevaluated today on 08/19/2023, remains in the ICU, intubated and mechanically ventilated, presently on assist-control rate of 18 tidal volume 350 FiO2 35% PEEP of 5 ABG showed a pO2 of 84 pCO2 68 pH of 7.35. Patient is close most likely to her baseline pCO2 in the 60s. Patient is on enteral feeding/vital HP she is also on propofol at 15 but the plan to increase up to 50 and discontinue Versed which is 3 mg/h at present patient is also on fentanyl 1 mcg/kg/h and an IV fluid at 75 cc/h in the form of saline. I am planning today to hold sedation, and assess mental status, but I am not planning to proceed to extubation. Her overall pulmonary status remains marginal at best, chest x-ray showed COPD but no evidence of pneumonia. WBC count is normal 7.3 hemoglobin is 11.9 basic metabolic profile is normal bicarb is 36 renal profile is normal Patient evaluated today on 08/20/2023, remains in the ICU, intubated and mechanically ventilated. Patient was given sedation holiday yesterday and early this morning, she gets extremely restless agitated, she was able to wiggle toes only, could not get any other responses on lower doses of sedation. However considering the patient is quite hypertensive off sedation, considering that the patient is definitely not ready for any form of weaning, the plan is to place back on fentanyl at 1 mcg/kg/h propofol will be increased back to 50 mcg/kg/min and will use Versed if necessary presently Versed is on hold. She is on 0.9 normal saline at 75 cc/h she is on Cleviprex at 13 mg/h patient is remains on antibiotics/Levaquin. Patient is developing a minimal patchy opacity in the right lower lobe which was not present previously, she is definitely a good set up for developing pneumonia. Ventilator settings today are assist-control rate of 18 tidal volume 350 FiO2 35% PEEP of 5 ABG showed a pO2 of 71 pCO2 68 pH of 7.40 hence no changes were made in vent settings. WBC count is 10.1 hemoglobin is 12 basic metabolic profile is normal except bicarb of 39 BUN is 33 creatinine 0.3 Progress note dated August 21, 2023. This is a 52-year-old female who was admitted on August 09. She came in with COPD exacerbation, and was intubated on August 12. She remains on the ventilator. She is on volume assist-control, rate 18, tidal volume 350, FiO2 35%, and PEEP of 5. Blood gases show pO2 of 63, pCO2 of 70, pH is 7.40. She continues on propofol at 40 mcg/kg/min, fentanyl at 1.5 mcg/kg/h, and Versed at 3 mg an hour. She is getting saline at 75 cc an hour, and vital AF at goal, which is 21 cc an hour. Because she has not made any headway towards weaning and extubation, we will ask surgery for tracheostomy and PEG tube placement. Current laboratory includes a white count 11.6, hemoglobin 12.2, hematocrit 38.3, and a normal platelet count. Sodium 133, potassium 4.1, chloride 95, CO2 40, BUN 23, and creatinine 0.29. Calcium 7.7. Sputum and bronchial washings were positive only for Rimma albicans. Chest x-ray shows improved aeration at the lung bases. Progress note dated August 22, 2023. This is a 52-year-old female who was admitted on August 09. She came in with COPD exacerbation, and was intubated on August 12. She remains on the ventilator. The patient's ventilator settings include volume assist-control, rate 18, tidal volume 350, FiO2 35%, and PEEP of 5. Blood gases show pO2 of 80, pCO2 of 67, pH is 7.42. The patient is getting saline at 75 cc an hour, propofol at 55 mcg/kg/min, fentanyl at 1.5 mcg/kg/h, Versed at 6 mg an hour, and tube feedings are on hold, for possible tracheostomy and PEG tube placement today. The patient's peak airway pressures 37, with a plateau pressure of 20. White count of 10.7, hemoglobin 11.6, hematocrit 37, and platelet count was normal. Sodium 135, potassium 4.5, chlorides 97, CO2 36, BUN 25, and creatinine is 0.36. Glucose is 136. Magnesium 2.4. Calcium 7.9. Chest x-ray shows no changes, compared to the prior chest x-ray. Progress note dated August 23, 2023. 52-year-old female admitted on August 09. She was admitted with a diagnosis of COPD exacerbation, and was intubated on August 12. She remains on the ventilator. Hopefully, today she will go for a tracheostomy, and PEG tube placement. She remains on the ventilator, with settings of volume assist- control, rate 18, tidal volume 350, FiO2 35%, and PEEP of 5. Blood gases show pO2 of 91, pCO2 of 63, pH is 7.44. The patient continues on saline at 75 cc an hour, Versed drip at 6 mg an hour, propofol at 55 mcg/kg/min, and fentanyl at 1.5 mcg/kg/h. Tube feeds are on hold. Will also ask for a PICC line, from interventional radiology. Currently, white count 13.4, globin 12, hematocrit 37.4, and platelet count 230,000. Sodium 136, potassium 4.1, chlorides 100, CO2 42, BUN 19, creatinine 0.30. Calcium is 8.1. Glucose is 128. Sputum, and bronchoscopy washings, does show evidence of Rimma albicans. Chest x-ray shows no definite focal consolidations. Progress note dated August 24, 2023. 52-year-old female admitted on August 09. She was admitted with a diagnosis of COPD exacerbation, and was intubated on August 12. She remains on the ventilator. The patient underwent a tracheostomy and PEG tube placement yesterday. She will have a PICC line placed today, i.e. August 23. Current ventilator settings include volume assist-control, rate 18, tidal volume 350, FiO2 35%, PEEP of 5. Blood gases show pO2 of 76, pCO2 of 63, pH is 7.41. The patient continues on Versed at 4 mg an hour, saline at 75 cc an hour, propofol at 40 mcg/kg/min, and fentanyl at 1.5 mcg/kg/h. Current white count 15, hemoglobin 12.2, hematocrit 37.5, and platelet count was normal. Sodium 136, potassium 4.2, chlorides 102, CO2 34, BUN 26, and creatinine 0.28. Glucose is 111. Albumin is 2.6 calcium 8.0. Chest x-ray is largely unchanged. Objective - Vital Signs Vital signs: Vital Signs Temp 97.5 F L 08/24/23 08:00 Pulse 89 08/24/23 11:42 Resp 18 08/24/23 11:42 BP 121/78 08/24/23 10:00 Pulse Ox 98 08/24/23 10:00 FiO2 35 08/24/23 11:27 Intake & Output 08/23/23 08/24/23 08/24/23 18:59 06:59 18:59 Intake Total 9722.591 7195.72 400.65 Output Total 345 525 100 Balance 828.313 825.72 300.65 Weight 74.7 kg Intake: IV 858 1014 234 Normal Saline Pressure 33 39 9 Bag Sodium Chloride 0.9% 1, 825 975 225 000 ml @ 75 mls/hr IV . [id number] [facility] Rx#:[id number] Intake, IV Titration 315.313 336.72 116.65 Amount Midazolam HCl 50 mg In 50 103.0 16.65 Sodium Chloride 0.9% 40 ml @ 1 MG/HR 1 mls/hr IV .Q24H [facility] Rx#:[id number] fentaNYL (PF). 1,000 mcg 100 100 100 In Sodium Chloride 0.9% 80 ml @ 0.5 MCG/KG/HR 3. 005 mls/hr IV .Q24H [facility] Rx#:[id number] propofoL 1,000 mg In 165.313 133.72 Empty Bag 1 bag @ 15 MCG/ KG/MIN 5.715 mls/hr IV . [id number] [facility] Rx#:[id number] Tube Feeding 50 Output: Urine 340 525 100 Estimated Blood Loss 5 Other: Voiding Method Indwelling Catheter Indwelling Catheter Indwelling Catheter ABP, PAP, CO, CI - Last Documented Arterial Blood Pressure 135/64 - Exam No acute distress, sedated, with an midline tracheostomy tube. HEENT examination is grossly unremarkable. Neck supple. Full range of motion. No adenopathy thyromegaly or neck vein distention. Cardiovascular examination reveals regular rhythm rate. S1-S2 normal. No S3 or S4. No discernible murmur noted. Heart sounds are distant. Heart rate 85 bpm. Lungs reveal scattered bilateral rhonchi. No wheezes or crackles. Breath sounds equal. Saturations are 98 % Abdomen soft, with bowel sounds. No masses or tenderness. PEG tube is noted. Extremities are intact. No cyanosis clubbing or edema. Skin is without rash or lesion. Neurologic examination cannot be adequately assessed at this time. - Labs CBC & Chem 7: 08/24/23 04:00 08/24/23 04:00 Labs: Abnormal Lab Results - Last 24 Hours (Table) 08/23/23 08/23/23 08/24/23 Range/Units 17:10 17:58 04:00 WBC 15.0 H (3.8-10.6) k/uL RBC 3.71 L (3.80-5.40) m/uL MCV 101.2 H (80.0-100.0) fL Neutrophils # 14.0 H (1.3-7.7) k/uL Lymphocytes # 0.4 L (1.0-4.8) k/uL ABG pCO2 (35-45) mmHg ABG pO2 (83-108) mmHg ABG HCO3 (21-25) mmol/L ABG Total CO2 (19-24) mmol/L Sodium (137-145) mmol/L Carbon Dioxide (22-30) mmol/L BUN (7-17) mg/dL Creatinine (0.52-1.04) mg/dL Glucose (74-99) mg/dL POC Glucose (mg/dL) 130 H 127 H (70-110) mg/dL Calcium (8.4-10.2) mg/dL AST (14-36) U/L ALT (4-34) U/L Total Protein (6.3-8.2) g/dL Albumin (3.5-5.0) g/dL 08/24/23 08/24/23 08/24/23 Range/Units 04:00 05:47 11:33 WBC (3.8-10.6) k/uL RBC (3.80-5.40) m/uL MCV (80.0-100.0) fL Neutrophils # (1.3-7.7) k/uL Lymphocytes # (1.0-4.8) k/uL ABG pCO2 63 H (35-45) mmHg ABG pO2 76 L (83-108) mmHg ABG HCO3 39 H (21-25) mmol/L ABG Total CO2 42 H (19-24) mmol/L Sodium 136 L (137-145) mmol/L Carbon Dioxide 34 H (22-30) mmol/L BUN 26 H (7-17) mg/dL Creatinine 0.28 L (0.52-1.04) mg/dL Glucose 125 H (74-99) mg/dL POC Glucose (mg/dL) 111 H (70-110) mg/dL Calcium 8.0 L (8.4-10.2) mg/dL AST 73 H (14-36) U/L ALT 88 H (4-34) U/L Total Protein 4.6 L (6.3-8.2) g/dL Albumin 2.6 L (3.5-5.0) g/dL Assessment and Plan Assessment: Acute hypoxemic respiratory failure, secondary to COPD exacerbation, status post intubation and mechanical ventilation on August 13, 2023. S/P tracheostomy and PEG tube placement, August 23, 2023. Advanced COPD. Left upper lobe pulmonary nodule, 9 mm. History of HIV. Status post bronchoscopy and BAL, August 12, nondiagnostic. Sputum samples, positive for Rimma albicans. Plan: Plan dated August 21, 2023. The patient has not really made any headway towards weaning and extubation. She was intubated on August 12. She has not been intubated for 9 days. Will ask surgery for tracheostomy and PEG tube placement. Patient continues on propofol, fentanyl, and Versed. She is receiving tube feedings. Blood gases have been reviewed. Labs, x-rays, and all medications are reviewed. Prognosis is guarded. We will continue to follow make recommendations along the way. Plan dated August 22, 2023. The patient's tube feeds are on hold, for anticipated tracheostomy tube placement and PEG tube placement today. The patient has a very high peak airway pressure 37 cm of water, and a plateau pressure of 20. The large peak to plateau difference, suggest increased airway resistance. Labs, x-rays, and medications are reviewed. The patient is maintained on propofol, fentanyl, and Versed. Blood gases show pO2 of 80, pCO2 of 67, and a pH of 7.42. Labs, x- rays, medications are reviewed. Prognosis is certainly guarded. We will continue to follow the patient, and make recommendations along the way. Plan dated August 23, 2023. The patient is supposed to go to the operating room today, for tracheostomy tube, and feeding tube/PEG tube. In addition, we will ask interventional radiology to place a PICC line on this patient. The patient continues on saline at 75 cc an hour, Versed at 6 mg an hour, propofol at 55 mcg/kg/min, and fe ntanyl at 1.5 mcg/kg/h. In addition, blood gases show pO2 of 91, pCO2 of 63, and a pH of 7.44. Labs, x-rays, and medications are reviewed. The patient's overall prognosis remains guarded. We will continue to follow the patient, and make recommendations along the way. Plan dated August 24, 2023. The patient had a tracheostomy and PEG tube placed yesterday. The patient will have a PICC line placed today. The patient continues on the ventilator. Gases show a pO2 of 76, pCO2 of 63, pH is 7.41. The patient continues on Versed 4 mg an hour, saline at 75 cc an hour, propofol at 40 mcg/kg/min, and fentanyl at 1.5 mcg/kg/h. Labs, x-rays, and medications are reviewed. We will continue to fo llow the patient, make recommendations along the way. Prognosis is certainly very guarded. Time with Patient: Greater than 30
[2023-08-24 12:39] LABS: Glucose,Whole Blood 62 mg/dL (70-110)
[2023-08-24] MEDS: DEXTROSE 50% SYRINGE 50 ML IVP STA (12:41)
--- NOTE | 2023-08-24 12:52 | IR ---
EXAMINATION TYPE: IR cvc insert >=5 years DATE OF EXAM: 08/24/2023 FLUOROSCOPY Incomp IVF/Blood draws, port CRX, 5F 32mc rt brachial PICC. No images provided. No radiation dose pro vided. Please refer to vascular surgery procedure note.
[2023-08-24 13:07] LABS: Glucose,Whole Blood 71 mg/dL (70-110)
[2023-08-24 15:27] LABS: Glucose,Whole Blood 100 mg/dL (70-110)
--- NOTE | 2023-08-24 15:55 | P.PN ---
Subjective Progress Note Date: 08/23/23 Principal diagnosis: Reason for follow-up is HIV and possible pneumonia Patient is a 52-year-old female with a past medical history significant for HIV on Biktarvy, also with a history of COPD presenting to the hospital for evaluation of increasing shortness of breath patient did have worsening respiratory status got intubated, patient did have a CT angiogram of the chest that was negative for PE did shows a lung nodule did not mention any infiltrate or consolidation. On today's evaluation that is 08/23/2023,the patient remains to be afebrile patient remains to be debated on the vent FiO2 currently at 35% no significant paralyzation the ED diarrhea or any other changes reported by nursing staff the patient is scheduled for a tracheostomy this morning. Patient white count is 13.4, creatinine is 0.30 Objective - Vital Signs Vital signs: Vital Signs Temp 97.6 F 08/23/23 04:00 Pulse 104 H 08/23/23 11:00 Resp 20 08/23/23 11:00 BP 130/83 08/23/23 11:00 Pulse Ox 93 L 08/23/23 11:00 FiO2 35 08/23/23 12:00 Intake & Output 08/22/23 08/23/23 08/23/23 18:59 06:59 18:59 Intake Total 8955.758 7705.839 555.313 Output Total 760 2305 150 Balance 598.222 -970.161 405.313 Weight 71 kg 67.6 kg Intake: IV 936 861 390 Normal Saline Pressure 36 36 15 Bag Sodium Chloride 0.9% 1, 900 825 375 000 ml @ 75 mls/hr IV . [id number] [facility] Rx#:[id number] Intake, IV Titration 362.222 413.839 165.313 Amount Clevidipine Butyrate 25 0.067 52.5 mg In Empty Bag 1 bag @ 1 MG/HR 2 mls/hr IV .Q24H [facility] Rx#:[id number] Midazolam HCl 50 mg In 19.4 97.6 Sodium Chloride 0.9% 40 ml @ 1 MG/HR 1 mls/hr IV .Q24H [facility] Rx#:[id number] fentaNYL (PF). 1,000 mcg 154.391 45.609 100 In Sodium Chloride 0.9% 80 ml @ 0.5 MCG/KG/HR 3. 005 mls/hr IV .Q24H [facility] Rx#:[id number] propofoL 1,000 mg In 188.364 218.130 65.313 Empty Bag 1 bag @ 15 MCG/ KG/MIN 5.715 mls/hr IV . [id number] [facility] Rx#:[id number] Oral 60 Other 60 Output: Urine 760 2305 145 Estimated Blood Loss 5 Other: Voiding Method Indwelling Catheter Indwelling Catheter Indwelling Catheter # Bowel Movements 0 ABP, PAP, CO, CI - Last Documented Arterial Blood Pressure 152/86 - Exam GENERAL DESCRIPTION: Middle-aged female intubated on the vent RESPIRATORY SYSTEM: Unlabored breathing , decreased breath sounds at bases HEART: S1 S2 regular rate and rhythm , ABDOMEN: Soft , no tenderness EXTREMITIES: No edema feet - Labs CBC & Chem 7: 08/24/23 04:00 08/24/23 04:00 Labs: Abnormal Lab Results - Last 24 Hours (Table) 08/22/23 08/22/23 08/23/23 Range/Units 12:43 18:05 00:11 WBC (3.8-10.6) k/uL RBC (3.80-5.40) m/uL MCV (80.0-100.0) fL Neutrophils # (1.3-7.7) k/uL Lymphocytes # (1.0-4.8) k/uL ABG pCO2 (35-45) mmHg ABG HCO3 (21-25) mmol/L ABG Total CO2 (19-24) mmol/L ABG O2 Saturation (94-97) % Sodium (137-145) mmol/L Carbon Dioxide (22-30) mmol/L BUN (7-17) mg/dL Creatinine (0.52-1.04) mg/dL Glucose (74-99) mg/dL POC Glucose (mg/dL) 139 H 124 H 112 H (70-110) mg/dL Calcium (8.4-10.2) mg/dL 08/23/23 08/23/23 08/23/23 Range/Units 04:54 04:54 05:30 WBC 13.4 H (3.8-10.6) k/uL RBC 3.69 L (3.80-5.40) m/uL MCV 101.3 H (80.0-100.0) fL Neutrophils # 12.2 H (1.3-7.7) k/uL Lymphocytes # 0.5 L (1.0-4.8) k/uL ABG pCO2 (35-45) mmHg ABG HCO3 (21-25) mmol/L ABG Total CO2 (19-24) mmol/L ABG O2 Saturation (94-97) % Sodium 136 L (137-145) mmol/L Carbon Dioxide 42 H* (22-30) mmol/L BUN 19 H (7-17) mg/dL Creatinine 0.30 L (0.52-1.04) mg/dL Glucose 134 H (74-99) mg/dL POC Glucose (mg/dL) 128 H (70-110) mg/dL Calcium 8.1 L (8.4-10.2) mg/dL 08/23/23 08/23/23 Range/Units 05:40 11:44 WBC (3.8-10.6) k/uL RBC (3.80-5.40) m/uL MCV (80.0-100.0) fL Neutrophils # (1.3-7.7) k/uL Lymphocytes # (1.0-4.8) k/uL ABG pCO2 63 H (35-45) mmHg ABG HCO3 42 H* (21-25) mmol/L ABG Total CO2 44 H (19-24) mmol/L ABG O2 Saturation 98.2 H (94-97) % Sodium (137-145) mmol/L Carbon Dioxide (22-30) mmol/L BUN (7-17) mg/dL Creatinine (0.52-1.04) mg/dL Glucose (74-99) mg/dL POC Glucose (mg/dL) 170 H (70-110) mg/dL Calcium (8.4-10.2) mg/dL Assessment and Plan (1) Acute respiratory failure Current Visit: Yes Status: Acute Code(s): J96.00 - ACUTE RESPIRATORY FAILURE, UNSP W HYPOXIA OR HYPERCAPNIA SNOMED Code(s): 43704144 (2) HIV disease Current Visit: No Status: Acute Code(s): B20 - HUMAN IMMUNODEFICIENCY VIRUS [HIV] DISEASE SNOMED Code(s): 48413675 Plan: 1patient presented to hospital with increasing shortness of breath which is likely multifactorial in this patient who did have a history of COPD and likely COPD is a patient with a tracheobronchitis underlying pneumonia less likely but not entirely excluded 2-patient did have a CT angiogram of the chest that was negative for PE did not show any evidence of pneumonia or interstitial infiltrate 3-patient did have a penicillin allergy that will limit the number of antibiotics safe to use 4-patient sputum is growing Rimma which is likely colonization, pneumocystis and Legionella antigens has been negative, patient is currently being monitored closely off antibiotic therapy, patient did have a slight worsening of leukocytosis if any persistent elevation of white count we will add Diflucan/Eraxis depending upon drug interaction 5-patient to continue with Biktarvy for HIV issue of patient not able to get her Biktarvy at this especially discussed with the wrapper caser however discontinuation of antibiotic for a month or 2 may may risk worsening of her HIV infection this was explained to the wrapper caser in layman terms Dictation was produced using [employer] dictation software. please excuse any grammatical, word or spelling errors. Time with Patient: Less than 30
--- NOTE | 2023-08-24 15:57 | P.PN ---
Subjective Progress Note Date: 08/24/23 Principal diagnosis: Reason for follow-up is HIV and possible pneumonia Patient is a 52-year-old female with a past medical history significant for HIV on Biktarvy, also with a history of COPD presenting to the hospital for evaluation of increasing shortness of breath patient did have worsening respiratory status got intubated, patient did have a CT angiogram of the chest that was negative for PE did shows a lung nodule did not mention any infiltrate or consolidation.Patient is status post tracheostomy completed on 08/23/2023 On today's evaluation that is 08/24/2023,the patient remains to be afebrile, patient is on the vent through the trach FiO2 stable at 35% no significant purulent secretions through the ET diarrhea or any other changes reported by nursing staff. Patient white count is up to 15,000, creatinine is 0.28, sputum and bronchial washing has been Rimma albicans Objective - Vital Signs Vital signs: Vital Signs Temp 97.3 F L 08/24/23 12:00 Pulse 108 H 08/24/23 15:28 Resp 18 08/24/23 15:28 BP 152/90 08/24/23 12:30 Pulse Ox 98 08/24/23 12:30 FiO2 35 08/24/23 15:10 Intake & Output 08/23/23 08/24/23 08/24/23 18:59 06:59 18:59 Intake Total 1548.140 6170.72 622.93 Output Total 345 525 180 Balance 828.313 825.72 442.93 Weight 74.7 kg Intake: IV 858 1014 390 Normal Saline Pressure 33 39 15 Bag Sodium Chloride 0.9% 1, 825 975 375 000 ml @ 75 mls/hr IV . [id number] [facility] Rx#:[id number] Intake, IV Titration 315.313 336.72 182.93 Amount Midazolam HCl 50 mg In 50 103.0 16.65 Sodium Chloride 0.9% 40 ml @ 1 MG/HR 1 mls/hr IV .Q24H [facility] Rx#:[id number] fentaNYL (PF). 1,000 mcg 100 100 100 In Sodium Chloride 0.9% 80 ml @ 0.5 MCG/KG/HR 3. 005 mls/hr IV .Q24H [facility] Rx#:[id number] propofoL 1,000 mg In 165.313 133.72 66.28 Empty Bag 1 bag @ 15 MCG/ KG/MIN 5.715 mls/hr IV . [id number] [facility] Rx#:[id number] Tube Feeding 50 Output: Urine 340 525 180 Estimated Blood Loss 5 Other: Voiding Method Indwelling Catheter Indwelling Catheter Indwelling Catheter ABP, PAP, CO, CI - Last Documented Arterial Blood Pressure 153/76 - Exam GENERAL DESCRIPTION: Middle-aged female intubated on the vent through the trach RESPIRATORY SYSTEM: Unlabored breathing , decreased breath sounds at bases HEART: S1 S2 regular rate and rhythm , ABDOMEN: Soft , no tenderness EXTREMITIES: No edema feet - Labs CBC & Chem 7: 08/24/23 04:00 08/24/23 04:00 Labs: Abnormal Lab Results - Last 24 Hours (Table) 08/23/23 08/23/23 08/24/23 Range/Units 17:10 17:58 04:00 WBC 15.0 H (3.8-10.6) k/uL RBC 3.71 L (3.80-5.40) m/uL MCV 101.2 H (80.0-100.0) fL Neutrophils # 14.0 H (1.3-7.7) k/uL Lymphocytes # 0.4 L (1.0-4.8) k/uL ABG pCO2 (35-45) mmHg ABG pO2 (83-108) mmHg ABG HCO3 (21-25) mmol/L ABG Total CO2 (19-24) mmol/L Sodium (137-145) mmol/L Carbon Dioxide (22-30) mmol/L BUN (7-17) mg/dL Creatinine (0.52-1.04) mg/dL Glucose (74-99) mg/dL POC Glucose (mg/dL) 130 H 127 H (70-110) mg/dL Calcium (8.4-10.2) mg/dL AST (14-36) U/L ALT (4-34) U/L Total Protein (6.3-8.2) g/dL Albumin (3.5-5.0) g/dL 08/24/23 08/24/23 08/24/23 Range/Units 04:00 05:47 11:33 WBC (3.8-10.6) k/uL RBC (3.80-5.40) m/uL MCV (80.0-100.0) fL Neutrophils # (1.3-7.7) k/uL Lymphocytes # (1.0-4.8) k/uL ABG pCO2 63 H (35-45) mmHg ABG pO2 76 L (83-108) mmHg ABG HCO3 39 H (21-25) mmol/L ABG Total CO2 42 H (19-24) mmol/L Sodium 136 L (137-145) mmol/L Carbon Dioxide 34 H (22-30) mmol/L BUN 26 H (7-17) mg/dL Creatinine 0.28 L (0.52-1.04) mg/dL Glucose 125 H (74-99) mg/dL POC Glucose (mg/dL) 111 H (70-110) mg/dL Calcium 8.0 L (8.4-10.2) mg/dL AST 73 H (14-36) U/L ALT 88 H (4-34) U/L Total Protein 4.6 L (6.3-8.2) g/dL Albumin 2.6 L (3.5-5.0) g/dL // Range/Units 12:38 WBC (3.8-10.6) k/uL RBC (3.80-5.40) m/uL MCV (80.0-100.0) fL Neutrophils # (1.3-7.7) k/uL Lymphocytes # (1.0-4.8) k/uL ABG pCO2 (35-45) mmHg ABG pO2 (83-108) mmHg ABG HCO3 (21-25) mmol/L ABG Total CO2 (19-24) mmol/L Sodium (137-145) mmol/L Carbon Dioxide (22-30) mmol/L BUN (7-17) mg/dL Creatinine (0.52-1.04) mg/dL Glucose (74-99) mg/dL POC Glucose (mg/dL) 62 L (70-110) mg/dL Calcium (8.4-10.2) mg/dL AST (14-36) U/L ALT (4-34) U/L Total Protein (6.3-8.2) g/dL Albumin (3.5-5.0) g/dL Assessment and Plan (1) Acute respiratory failure Current Visit: Yes Status: Acute Code(s): J96.00 - ACUTE RESPIRATORY FAILURE, UNSP W HYPOXIA OR HYPERCAPNIA SNOMED Code(s): 17761028 (2) HIV disease Current Visit: No Status: Acute Code(s): B20 - HUMAN IMMUNODEFICIENCY VIRUS [HIV] DISEASE SNOMED Code(s): 08797030 Plan: 1patient presented to hospital with increasing shortness of breath which is likely multifactorial in this patient who did have a history of COPD and likely COPD is a patient with a tracheobronchitis underlying pneumonia less likely but not entirely excluded 2-patient did have a CT angiogram of the chest that was negative for PE did not show any evidence of pneumonia or interstitial infiltrate 3-patient did have a penicillin allergy that will limit the number of antibiotics safe to use 4-patient to continue with Biktarvy for HIV 5-patient sputum is growing Rimma which is likely colonization however the patient did have further worsening of the white count could be component of oropharyngeal candidiasis we will add Eraxis as we are not able to add Diflucan because of drug interaction with the propofol and monitor her vitals closely Dictation was produced using [employer] dictation software. please excuse any grammatical, word or spelling errors. Time with Patient: Less than 30
[2023-08-24] MEDS: CLEVIDIPINE BUTYRATE 25 MG in EMPTY BAG 1 BAG IV SCH (16:10)
[2023-08-24] MEDS: DEXTROSE 50% SYRINGE 50 ML IVP ONE (16:11)
[2023-08-24] MEDS: ANIDULAFUNGIN 200 MG in SODIUM CHLORIDE 0.9% 200 ML IVPB ONE (17:51)
--- NOTE | 2023-08-24 20:54 | P.PN ---
Subjective Progress Note Date: 08/24/23 This is a 52-year-old female who initially came into the hospital due to difficulty breathing and cough. Patient was found to have significant COPD exacerbation and required intubation. She continues in the intensive care unit she is on the mechanical ventilator with an FiO2 of 35% with a PEEP of 5. She is currently on an IV Versed and IV fentanyl infusion as well as IV Solu-Medrol. She is currently sedated with propofol. patient is maintained on Biktarvy also for history of HIV. On enteral feedings. Chest x-ray today shows improved aeration of the lung bases. Labs today reveal a white blood cell count of 11.6, sodium 133, BUN of 23, creatinine of 0.29. Her glucose is in the 120s to 130s range. CO2 of 40. Sputum culture was found to be positive for Sergio. She is being considered for trach and PEG tube placement. 08/22/2023 Patient evaluated in follow up today in the ICU. Remains on the mechanical ventilator with FiO2 of 35% and PEEP of 5. Patient is scheduled for PEG/Trach placement today. Remains on IV fentanyl, IV versed, IV propofol, IV solumedrol. Patient is being hydrated with normal saline. Chest xray today shows no focal infiltrates. 08/23/2023 Patient remains in the intensive care unit. Patient is currently on the mechanical ventilator. Patient underwent trach and PEG tube placement today. Remains on IV fentanyl, IV versed, IV propofol, IV solumedrol. Patient remains on Biktarvy. Unable to be considered for rehab or select specialty at this time due to the cost of the Biktarvy medication which will need to be continued at this time. White blood cell count today 13.4, sodium 136, BUN 19, creatinine 0.30. CO2 level 42. Blood glucose 170. 08/24/2023 Patient is evaluated today in the ICU. Patient is postoperative trach and peg tube placement. Remains on mechanical ventilator with FiO2 of 35% and PEEP of 5. Currently on IV fentanyl, IV versed, IV propofol and remains on high dose IV solumedrol. Sputum culture was positive for sergio patient is having worsening WBC today is 15k and ID has recommended to start the patient on IV anidulafungin. Patient is being hydrated with normal saline running at 75 mls/hr. Tube feedings were placed on hold for the PEG tube placement and are to be resumed today. Unable to complete a review of systems as patient is currently intubated and sedated on the mechanical ventilator PHYSICAL EXAMINATION: GENERAL: The patient is alert and oriented x0, not in any acute distress. Well developed, well nourished. Sedated. HEENT: Pupils are round and equally reacting to light. EOMI. No scleral icterus. No conjunctival pallor. Normocephalic, atraumatic. No pharyngeal erythema. No thyromegaly. CARDIOVASCULAR: S1 and S2 present. No murmurs, rubs, or gallops. PULMONARY: Chest is clear to auscultation, no wheezing or crackles. ABDOMEN: Soft, nontender, nondistended, normoactive bowel sounds. No palpable organomegaly. MUSCULOSKELETAL: No joint swelling or deformity. EXTREMITIES: No cyanosis, clubbing, or pedal edema. NEUROLOGICAL: Unable to asses pt is sedated SKIN: No rashes. Assessment and Plan -Acute exacerbation of chronic COPD -Acute hypoxemic hypercapnic respiratory failure requiring mechanical vent ilation -Sergio albicans in the sputum -Left upper lobe nodule -Steroid induced hyperglycemia -Advanced COPD at baseline -History of smoking -History of HIV currently on Biktarvy. Viral count and CD4 counts are not known. No previous history of a persistent infections. The patient has not bee n receiving any form of antibiotic treatments such as Bactrim. Her infectious disease doctor is Dr. Salguero. The CD4 count is at 81 -Moderate protein calorie malnutrition -Chronic nicotine use GI prophylaxis: Protonix DVT prophylaxis: Lovenox Full Code Plan Continue with IV solumedrol, [facility] Mechanical ventilator per gas adjuster Continue on enteral tube feedings which are to be resumed today Continue accuchecks Q6h and sliding scale insulin Status post trach and PEG tube placement. Continues on propofol, fentanyl and versed Patient has been started on IV anidulafungin Repeat labs in the AM Prognosis remains guarded. The impression and plan of care has been dictated by Vangie Barton, Nurse Practitioner as directed. Dr. Dann MD I have performed a history and physical examination and medical decision making of this patient, discussed the same with the dictator, and agree with the dictators assessment and plan as written, documented as a scribe. Based on total visit time, I have performed more than 50% of this visit. Objective - Vital Signs Vital signs: Vital Signs Temp 97.3 F L 08/24/23 12:00 Pulse 87 08/24/23 12:30 Resp 17 08/24/23 12:30 BP 152/90 08/24/23 12:30 Pulse Ox 98 08/24/23 12:30 FiO2 35 08/24/23 12:00 Intake & Output 08/23/23 08/24/23 08/24/23 18:59 06:59 18:59 Intake Total 6086.640 3541.72 622.93 Output Total 345 525 180 Balance 828.313 825.72 442.93 Weight 74.7 kg Intake: IV 858 1014 390 Normal Saline Pressure 33 39 15 Bag Sodium Chloride 0.9% 1, 825 975 375 000 ml @ 75 mls/hr IV . [id number] [facility] Rx#:[id number] Intake, IV Titration 315.313 336.72 182.93 Amount Midazolam HCl 50 mg In 50 103.0 16.65 Sodium Chloride 0.9% 40 ml @ 1 MG/HR 1 mls/hr IV .Q24H [facility] Rx#:[id number] fentaNYL (PF). 1,000 mcg 100 100 100 In Sodium Chloride 0.9% 80 ml @ 0.5 MCG/KG/HR 3. 005 mls/hr IV .Q24H [facility] Rx#:[id number] propofoL 1,000 mg In 165.313 133.72 66.28 Empty Bag 1 bag @ 15 MCG/ KG/MIN 5.715 mls/hr IV . [id number] [facility] Rx#:[id number] Tube Feeding 50 Output: Urine 340 525 180 Estimated Blood Loss 5 Other: Voiding Method Indwelling Catheter Indwelling Catheter Indwelling Catheter ABP, PAP, CO, CI - Last Documented Arterial Blood Pressure 153/76 - Labs CBC & Chem 7: 08/24/23 04:00 08/24/23 04:00 Labs: Abnormal Lab Results - Last 24 Hours (Table) 08/23/23 08/23/23 08/24/23 Range/Units 17:10 17:58 04:00 WBC 15.0 H (3.8-10.6) k/uL RBC 3.71 L (3.80-5.40) m/uL MCV 101.2 H (80.0-100.0) fL Neutrophils # 14.0 H (1.3-7.7) k/uL Lymphocytes # 0.4 L (1.0-4.8) k/uL ABG pCO2 (35-45) mmHg ABG pO2 (83-108) mmHg ABG HCO3 (21-25) mmol/L ABG Total CO2 (19-24) mmol/L Sodium (137-145) mmol/L Carbon Dioxide (22-30) mmol/L BUN (7-17) mg/dL Creatinine (0.52-1.04) mg/dL Glucose (74-99) mg/dL POC Glucose (mg/dL) 130 H 127 H (70-110) mg/dL Calcium (8.4-10.2) mg/dL AST (14-36) U/L ALT (4-34) U/L Total Protein (6.3-8.2) g/dL Albumin (3.5-5.0) g/dL 08/24/23 08/24/23 08/24/23 Range/Units 04:00 05:47 11:33 WBC (3.8-10.6) k/uL RBC (3.80-5.40) m/uL MCV (80.0-100.0) fL Neutrophils # (1.3-7.7) k/uL Lymphocytes # (1.0-4.8) k/uL ABG pCO2 63 H (35-45) mmHg ABG pO2 76 L (83-108) mmHg ABG HCO3 39 H (21-25) mmol/L ABG Total CO2 42 H (19-24) mmol/L Sodium 136 L (137-145) mmol/L Carbon Dioxide 34 H (22-30) mmol/L BUN 26 H (7-17) mg/dL Creatinine 0.28 L (0.52-1.04) mg/dL Glucose 125 H (74-99) mg/dL POC Glucose (mg/dL) 111 H (70-110) mg/dL Calcium 8.0 L (8.4-10.2) mg/dL AST 73 H (14-36) U/L ALT 88 H (4-34) U/L Total Protein 4.6 L (6.3-8.2) g/dL Albumin 2.6 L (3.5-5.0) g/dL 08/24/23 Range/Units 12:38 WBC (3.8-10.6) k/uL RBC (3.80-5.40) m/uL MCV (80.0-100.0) fL Neutrophils # (1.3-7.7) k/uL Lymphocytes # (1.0-4.8) k/uL ABG pCO2 (35-45) mmHg ABG pO2 (83-108) mmHg ABG HCO3 (21-25) mmol/L ABG Total CO2 (19-24) mmol/L Sodium (137-145) mmol/L Carbon Dioxide (22-30) mmol/L BUN (7-17) mg/dL Creatinine (0.52-1.04) mg/dL Glucose (74-99) mg/dL POC Glucose (mg/dL) 62 L (70-110) mg/dL Calcium (8.4-10.2) mg/dL AST (14-36) U/L ALT (4-34) U/L Total Protein (6.3-8.2) g/dL Albumin (3.5-5.0) g/dL Assessment and Plan Time with Patient: Less than 30
[2023-08-24 23:33] LABS: Glucose,Whole Blood 100 mg/dL (70-110)
[2023-08-25 04:48] LABS: Basophils # (A) 0.1 k/uL (0-0.2); Basophils % (A) 0 %; Eosinophils % (A) 0 %; HGB 13.7 gm/dL (11.4-16.0); Lymphocytes # (A) 0.3 k/uL (1.0-4.8); Lymphocytes % (A) 2 %; MCHC 31.8 g/dL (31.0-37.0); MCV 100.6 fL (80.0-100.0); Mean Platelet Volume 7.4; Monocytes # (A) 0.7 k/uL (0-1.0); Monocytes % (A) 4 %; Neutrophils # (A) 15.7 k/uL (1.3-7.7); Neutrophils % (A) 93 %; Platelet Count 233 k/uL (150-450); RBC 4.28 m/uL (3.80-5.40); RDW 13.4 % (11.5-15.5); WBC 16.9 k/uL (3.8-10.6)
[2023-08-25 04:56] LABS: African American GFR (CKD) >90 (>60 ml/min/1.73 sqM); Blood Urea Nitrogen 24 mg/dL (7-17); Chloride 100 mmol/L (98-107); Glucose 155 mg/dL (74-99); Non-African American GFR(CKD) >90 (>60 ml/min/1.73 sqM); Sodium 136 mmol/L (137-145)
[2023-08-25 05:03] LABS: Anion Gap -1 mmol/L; Carbon Dioxide 37 mmol/L (22-30)
[2023-08-25 05:26] LABS: Glucose,Whole Blood 64 mg/dL (70-110)
[2023-08-25 05:28] LABS: ABG Base Excess 15.3 mmol/L; ABG HCO3 39 mmol/L (21-25); ABG Oxygen Saturation 95.3 % (94-97); ABG PCO2 56 mmHg (35-45); ABG PH 7.45 (7.35-7.45); ABG PO2 69 mmHg (83-108); ABG TCO2 41 mmol/L (19-24)
[2023-08-25 06:15] LABS: Allen Test Performed? no
[2023-08-25 06:25] LABS: Glucose,Whole Blood 91 mg/dL (70-110)
--- NOTE | 2023-08-25 07:13 | XR ---
EXAMINATION TYPE: XR chest 1V portable DATE OF EXAM: 08/25/2023 HISTORY: Shortness of breath. COMPARISON: 08/24/2023 TECHNIQUE: Single view of the chest is submitted. FINDINGS: Hyperinflation compatible with COPD. Tracheostomy tube is unchanged in position. Right-sided PICC line is also noted. There is no evidence for focal infiltrate. The heart is stable. Hilar and mediastinal structures are within normal limits. Degenerative changes are seen of the dorsal spine. IMPRESSION: 1. Chronic changes without evidence for acute pulmonary disease.
[2023-08-25] MEDS: LORazepam 1 MG TAB PO SCH (09:15)
--- NOTE | 2023-08-25 11:11 | P.PN ---
Subjective Progress Note Date: 08/25/23 Principal diagnosis: Respiratory failure. Patient was elevated today on 08/16/2023, remains in the ICU, intubated and mechanically ventilated. Remains on assist-control rate of 18 tidal volume 350 FiO2 35% PEEP of 5 ABG showed a pO2 of 103 pCO2 68 pH of 7.31, hence no changes were made in vent settings. Patient continues to have relatively high peak airway pressures in the high 30s. Continues to be tight and seems to have poor air exchange. Yesterday the patient was given a trial off Nimbex, however could not tolerate going off Nimbex in spite of using propofol fentanyl and Versed. Patient had to go back on Nimbex yesterday because of extreme agitation and she was not synchronous with the ventilator, noted to be tachypneic, tachycardic, and she was bucking the ventilator. Not to mention she was developing significantly high airway pressure. Today the patient is back on Nimbex at 2 mcg/kg/min Fentanyl 1 mcg/kg/h propofol 60 mcg/kg/min she is receiving vital AF she is also 1.9 normal saline at 75 cc/h. Remains on antibiotics in the form of Levaquin and cefepime. Her cultures have been negative including BAL culture, she did have Rimma, doubt any significance, I infectious disease is addressing. Considering what I have noted yesterday when the patient was off Nimbex, and considering her overall clinical condition today, I have no plans to discontinue discontinue Nimbex today. Will continue with the present cocktail sedation including Nimbex fentanyl and propofol, and will continue mechanical ventilation without any major change. Also continue antibiotics. And bronchodilators as well as IV Solu-Medrol. Reevaluate today on 08/17/2023, patient remains in the ICU, intubated and mechanically ventilated. Remains on assist-control rate of 18 tidal volume 350 FiO2 35% and PEEP of 5 ABG showed a pO2 of 102 pCO2 65 pH of 7.33. Chest x-ray continues to show no evidence of any active process. Patient remains on propofol at 60 mcg/kg/min, Nimbex at 2 mcg/kg/min Fentanyl at 1 mcg/kg/h patient is receiving vital AF at she is remains on cefepime and Levaquin as per ID on the case. Today I plan to discontinue Nimbex and see if we could control patient's agitation adequately will fentanyl propofol and Versed if needed. Have tried in the past doing this, could not ventilate the patient without having to use Nimbex. However will try again to discontinue Nimbex and try to manage the patient with fentanyl propofol and Versed if possible. Otherwise I will place her back on Nimbex. Patient is hemodynamically stable, she is not requiring any pressors. She is receiving antibiotics is also receiving enteral feeding, and she is on GI and DVT prophylaxis. Reevaluate today on 08/18/2023, patient remains in the ICU, intubated and mechanically ventilated, on assist-control rate of 18 tidal volume 350 FiO2 35% PEEP of 5 ABG showed a pO2 of 85 pCO2 66 pH of 7.35 hence no changes were made in ventilator settings. Patient remains on fentanyl at 2 mcg/kg/h, Versed 4 mg/h propofol at 70 mcg/kg/min she is off Nimbex now for the last 24 hours, and able to control patient with sedation as such. Patient is on vital AF , the plan is to cut down her propofol to 50 and increase her Versed if needed. No plans to wean and extubate today, however will start possibly attempting sedation holidays beginning tomorrow. Chest x-ray continues to show no evidence of active disease. WBC count is 5.9 hemoglobin is 11.9 basic metabolic profile is normal renal profile is normal Patient was reevaluated today on 08/19/2023, remains in the ICU, intubated and mechanically ventilated, presently on assist-control rate of 18 tidal volume 350 FiO2 35% PEEP of 5 ABG showed a pO2 of 84 pCO2 68 pH of 7.35. Patient is close most likely to her baseline pCO2 in the 60s. Patient is on enteral feeding/vital HP she is also on propofol at 15 but the plan to increase up to 50 and discontinue Versed which is 3 mg/h at present patient is also on fentanyl 1 mcg/kg/h and an IV fluid at 75 cc/h in the form of saline. I am planning today to hold sedation, and assess mental status, but I am not planning to proceed to extubation. Her overall pulmonary status remains marginal at best, chest x-ray showed COPD but no evidence of pneumonia. WBC count is normal 7.3 hemoglobin is 11.9 basic metabolic profile is normal bicarb is 36 renal profile is normal Patient evaluated today on 08/20/2023, remains in the ICU, intubated and mechanically ventilated. Patient was given sedation holiday yesterday and early this morning, she gets extremely restless agitated, she was able to wiggle toes only, could not get any other responses on lower doses of sedation. However considering the patient is quite hypertensive off sedation, considering that the patient is definitely not ready for any form of weaning, the plan is to place back on fentanyl at 1 mcg/kg/h propofol will be increased back to 50 mcg/kg/min and will use Versed if necessary presently Versed is on hold. She is on 0.9 normal saline at 75 cc/h she is on Cleviprex at 13 mg/h patient is remains on antibiotics/Levaquin. Patient is developing a minimal patchy opacity in the right lower lobe which was not present previously, she is definitely a good set up for developing pneumonia. Ventilator settings today are assist-control rate of 18 tidal volume 350 FiO2 35% PEEP of 5 ABG showed a pO2 of 71 pCO2 68 pH of 7.40 hence no changes were made in vent settings. WBC count is 10.1 hemoglobin is 12 basic metabolic profile is normal except bicarb of 39 BUN is 33 creatinine 0.3 Progress note dated August 21, 2023. This is a 52-year-old female who was admitted on August 09. She came in with COPD exacerbation, and was intubated on August 12. She remains on the ventilator. She is on volume assist-control, rate 18, tidal volume 350, FiO2 35%, and PEEP of 5. Blood gases show pO2 of 63, pCO2 of 70, pH is 7.40. She continues on propofol at 40 mcg/kg/min, fentanyl at 1.5 mcg/kg/h, and Versed at 3 mg an hour. She is getting saline at 75 cc an hour, and vital AF at goal, which is 21 cc an hour. Because she has not made any headway towards weaning and extubation, we will ask surgery for tracheostomy and PEG tube placement. Current laboratory includes a white count 11.6, hemoglobin 12.2, hematocrit 38.3, and a normal platelet count. Sodium 133, potassium 4.1, chloride 95, CO2 40, BUN 23, and creatinine 0.29. Calcium 7.7. Sputum and bronchial washings were positive only for Rimma albicans. Chest x-ray shows improved aeration at the lung bases. Progress note dated August 22, 2023. This is a 52-year-old female who was admitted on August 09. She came in with COPD exacerbation, and was intubated on August 12. She remains on the ventilator. The patient's ventilator settings include volume assist-control, rate 18, tidal volume 350, FiO2 35%, and PEEP of 5. Blood gases show pO2 of 80, pCO2 of 67, pH is 7.42. The patient is getting saline at 75 cc an hour, propofol at 55 mcg/kg/min, fentanyl at 1.5 mcg/kg/h, Versed at 6 mg an hour, and tube feedings are on hold, for possible tracheostomy and PEG tube placement today. The patient's peak airway pressures 37, with a plateau pressure of 20. White count of 10.7, hemoglobin 11.6, hematocrit 37, and platelet count was normal. Sodium 135, potassium 4.5, chlorides 97, CO2 36, BUN 25, and creatinine is 0.36. Glucose is 136. Magnesium 2.4. Calcium 7.9. Chest x-ray shows no changes, compared to the prior chest x-ray. Progress note dated August 23, 2023. 52-year-old female admitted on August 09. She was admitted with a diagnosis of COPD exacerbation, and was intubated on August 12. She remains on the ventilator. Hopefully, today she will go for a tracheostomy, and PEG tube placement. She remains on the ventilator, with settings of volume assist- control, rate 18, tidal volume 350, FiO2 35%, and PEEP of 5. Blood gases show pO2 of 91, pCO2 of 63, pH is 7.44. The patient continues on saline at 75 cc an hour, Versed drip at 6 mg an hour, propofol at 55 mcg/kg/min, and fentanyl at 1.5 mcg/kg/h. Tube feeds are on hold. Will also ask for a PICC line, from interventional radiology. Currently, white count 13.4, globin 12, hematocrit 37.4, and platelet count 230,000. Sodium 136, potassium 4.1, chlorides 100, CO2 42, BUN 19, creatinine 0.30. Calcium is 8.1. Glucose is 128. Sputum, and bronchoscopy washings, does show evidence of Rimma albicans. Chest x-ray shows no definite focal consolidations. Progress note dated August 24, 2023. 52-year-old female admitted on August 09. She was admitted with a diagnosis of COPD exacerbation, and was intubated on August 12. She remains on the ventilator. The patient underwent a tracheostomy and PEG tube placement yesterday. She will have a PICC line placed today, i.e. August 23. Current ventilator settings include volume assist-control, rate 18, tidal volume 350, FiO2 35%, PEEP of 5. Blood gases show pO2 of 76, pCO2 of 63, pH is 7.41. The patient continues on Versed at 4 mg an hour, saline at 75 cc an hour, propofol at 40 mcg/kg/min, and fentanyl at 1.5 mcg/kg/h. Current white count 15, hemoglobin 12.2, hematocrit 37.5, and platelet count was normal. Sodium 136, potassium 4.2, chlorides 102, CO2 34, BUN 26, and creatinine 0.28. Glucose is 111. Albumin is 2.6 calcium 8.0. Chest x-ray is largely unchanged. Progress note dated August 25, 2023. 52-year-old female admitted on August 09, with a diagnosis of COPD exacerbation. The patient was intubated on August 12, for respiratory failure. The patient had a tracheostomy tube placed and PEG tube placed, on August 22. She remains on the mechanical ventilator. She is on volume assist-control, rate 18, tidal volume 350, FiO2 35%, PEEP of 5. Blood gases show pO2 of 69, pCO2 of 56, pH is 7.45. The patient is getting saline at 75 cc an hour, Cleveprex is currently off. The patient is also receiving propofol at 50 mcg/kg/min, and fentanyl at 2 mcg/kg/h. In addition, the patient is receiving Versed at 5 mg an hour, and vital, at goal, which is 33 cc an hour. White count is 16.9, hemoglobin 13.7, hematocrit 43, platelet count 233,000. Sodium 136, potassium 4, chlorides 100, CO2 37, BUN 24, creatinine 0.27. Glucose is 91. Calcium is 8. Microbiologic sampling is revealing evidence of Rimma albicans, in sputum, and bronchial washings. The patient's chest x-ray is mostly unchanged. Chronic changes are noted bilaterally. Objective - Vital Signs Vital signs: Vital Signs Temp 98.1 F 08/25/23 08:00 Pulse 84 08/25/23 10:00 Resp 18 08/25/23 10:00 BP 100/61 08/25/23 10:00 Pulse Ox 98 08/25/23 10:00 FiO2 35 08/25/23 08:13 Intake & Output 08/24/23 08/25/23 08/25/23 18:59 06:59 18:59 Intake Total 5406.420 9696.136 424.316 Output Total 410 1560 380 Balance 1033.430 -203.864 44.316 Weight 73.5 kg Intake: IV 858 1014 9 Normal Saline Pressure 33 39 9 Bag Sodium Chloride 0.9% 1, 825 975 000 ml @ 75 mls/hr IV . [id number] [facility] Rx#:[id number] Intake, IV Titration 307.430 342.136 41.316 Amount Clevidipine Butyrate 25 8.667 5.267 21.1 mg In Empty Bag 1 bag @ 1 MG/HR 2 mls/hr IV .Q24H [facility] Rx#:[id number] Midazolam HCl 50 mg In 32.483 54.116 20.216 Sodium Chloride 0.9% 40 ml @ 1 MG/HR 1 mls/hr IV .Q24H [facility] Rx#:[id number] fentaNYL (PF). 1,000 mcg 100 182.753 In Sodium Chloride 0.9% 80 ml @ 0.5 MCG/KG/HR 3. 005 mls/hr IV .Q24H [facility] Rx#:[id number] propofoL 1,000 mg In 166.280 100 Empty Bag 1 bag @ 15 MCG/ KG/MIN 5.715 mls/hr IV . [id number] [facility] Rx#:[id number] Tube Feeding 248 99 Lipid 225 Sodium Chloride 0.9% 1, 225 000 ml @ 75 mls/hr IV . [id number] [facility] Rx#:[id number] Other 30 50 Output: Urine 410 1560 380 Other: Voiding Method Indwelling Catheter Indwelling Catheter Indwelling Catheter ABP, PAP, CO, CI - Last Documented Arterial Blood Pressure 93/49 - Exam No acute distress, sedated, with an midline tracheostomy tube. HEENT examination is grossly unremarkable. Neck supple. Full range of motion. No adenopathy thyromegaly or neck vein distention. Cardiovascular examination reveals regular rhythm rate. S1-S2 normal. No S3 or S4. No discernible murmur noted. Heart sounds are distant. Heart rate 84 bpm. Lungs reveal scattered bilateral rhonchi. No wheezes or crackles. Breath sounds equal. Saturations are 97 % Abdomen soft, with bowel sounds. No masses or tenderness. PEG tube is noted. Extremities are intact. No cyanosis clubbing or edema. Skin is without rash or lesion. Neurologic examination cannot be adequately assessed at this time. - Labs CBC & Chem 7: 08/25/23 04:37 08/25/23 04:37 Labs: Abnormal Lab Results - Last 24 Hours (Table) 08/24/23 08/24/23 08/25/23 Range/Units 11:33 12:38 04:37 WBC 16.9 H (3.8-10.6) k/uL MCV 100.6 H (80.0-100.0) fL Neutrophils # 15.7 H (1.3-7.7) k/uL Lymphocytes # 0.3 L (1.0-4.8) k/uL ABG pCO2 (35-45) mmHg ABG pO2 (83-108) mmHg ABG HCO3 (21-25) mmol/L ABG Total CO2 (19-24) mmol/L Sodium (137-145) mmol/L Carbon Dioxide (22-30) mmol/L BUN (7-17) mg/dL Creatinine (0.52-1.04) mg/dL Glucose (74-99) mg/dL POC Glucose (mg/dL) 111 H 62 L (70-110) mg/dL Calcium (8.4-10.2) mg/dL 08/25/23 08/25/23 08/25/23 Range/Units 04:37 05:23 05:26 WBC (3.8-10.6) k/uL MCV (80.0-100.0) fL Neutrophils # (1.3-7.7) k/uL Lymphocytes # (1.0-4.8) k/uL ABG pCO2 56 H (35-45) mmHg ABG pO2 69 L (83-108) mmHg ABG HCO3 39 H (21-25) mmol/L ABG Total CO2 41 H (19-24) mmol/L Sodium 136 L (137-145) mmol/L Carbon Dioxide 37 H (22-30) mmol/L BUN 24 H (7-17) mg/dL Creatinine 0.27 L (0.52-1.04) mg/dL Glucose 155 H (74-99) mg/dL POC Glucose (mg/dL) 64 L (70-110) mg/dL Calcium 8.0 L (8.4-10.2) mg/dL Assessment and Plan Assessment: Acute hypoxemic respiratory failure, secondary to COPD exacerbation, status post intubation and mechanical ventilation on August 13, 2023. S/P tracheostomy and PEG tube placement, August 23, 2023. Advanced COPD. Left upper lobe pulmonary nodule, 9 mm. History of HIV. Status post bronchoscopy and BAL, August 12, nondiagnostic. Sputum samples, positive for Rimma albicans. Plan: Plan dated August 21, 2023. The patient has not really made any headway towards weaning and extubation. She was intubated on August 12. She has not been intubated for 9 days. Will ask surgery for tracheostomy and PEG tube placement. Patient continues on propofol, fentanyl, and Versed. She is receiving tube feedings. Blood gases have been reviewed. Labs, x-rays, and all medications are reviewed. Prognosis is guarded. We will continue to follow make recommendations along the way. Plan dated August 22, 2023. The patient's tube feeds are on hold, for anticipated tracheostomy tube placement and PEG tube placement today. The patient has a very high peak airway pressure 37 cm of water, and a plateau pressure of 20. The large peak to plateau difference, suggest increased airway resistance. Labs, x-rays, and medications are reviewed. The patient is maintained on propofol, fentanyl, and Versed. Blood gases show pO2 of 80, pCO2 of 67, and a pH of 7.42. Labs, x- rays, medications are reviewed. Prognosis is certainly guarded. We will continue to follow the patient, and make recommendations along the way. Plan dated August 23, 2023. The patient is supposed to go to the operating room today, for tracheostomy tube , and feeding tube/PEG tube. In addition, we will ask interventional radiology to place a PICC line on this patient. The patient continues on saline at 75 cc an hour, Versed at 6 mg an hour, propofol at 55 mcg/kg/min, and fentanyl at 1.5 mcg/kg/h. In addition, blood gases show pO2 of 91, pCO2 of 63, and a pH of 7.44. Labs, x-rays, and medications are reviewed. The patient's overall prognosis remains guarded. We will continue to follow the patient, and make recommendations along the way. Plan dated August 24, 2023. The patient had a tracheostomy and PEG tube placed yesterday. The patient will have a PICC line placed today. The patient continues on the ventilator. Gases show a pO2 of 76, pCO2 of 63, pH is 7.41. The patient continues on Versed 4 mg an hour, saline at 75 cc an hour, propofol at 40 mcg/kg/min, and fentanyl at 1.5 mcg/kg/h. Labs, x-rays, and medications are reviewed. We will continue to follow the patient, make recommendations along the way. Prognosis is certainly very guarded. Plan dated August 25, 2023. The patient continues on appropriate antibiotics. In addition, we will add some Ativan 1 mg every 6 hours, down the PEG tube, to see if we can get the patient off of the Versed drip. Labs, x-rays, and medications are reviewed. Blood gases are reasonable with a pO2 of 69, pCO2 of 56, pH is 7.45. The patient continues on propofol, fentanyl, and Versed. The patient is receiving tube feedings at goal. The patient is also getting saline at 75 cc an hour. The patient's overall prognosis remains very guarded. We will continue to follow and make recommendations along the way. Time with Patient: Greater than 30
[2023-08-25 11:39] LABS: Glucose,Whole Blood 158 mg/dL (70-110)
[2023-08-25] MEDS ORDERED: LORazepam 1 MG TAB PO SCH (12:00)
[2023-08-25 14:27] LABS: Hepatitis B Surface Antigen Nonreactive (Nonreactive); Hepatitis C IgG Antibody Nonreactive (Nonreactive)
[2023-08-25] MEDS: ANIDULAFUNGIN 100 MG in SODIUM CHLORIDE 0.9% 100 ML IVPB SCH (15:47)
--- NOTE | 2023-08-25 16:20 | P.PN ---
Subjective Progress Note Date: 08/25/23 CHIEF COMPLAINT: Respiratory failure HISTORY OF PRESENT ILLNESS: Patient remains in the ICU on mechanical ventilation. She is postop day #2 status post tracheostomy and PEG tube placement. Patient on tube feeds at 33 mL/h afebrile. PHYSICAL EXAM: VITAL SIGNS: Reviewed. GENERAL: no acute distress. HEENT: Trach site clean dry and intact ABDOMEN: Soft. Nondistended. Nontender. PEG tube site clean dry and intact NEUROLOGIC: Intubated and sedated ASSESSMENT: 1. Acute hypoxic respiratory failure with difficulty to wean from the vent 2. COPD exacerbation 3. Moderate protein calorie malnutrition 4. History of HIV PLAN: -Continue tube feeds. Titrate tube feeds per dietitian recommendations -Continue ICU management -Continue supportive care Physician Supervisor [employer] note has been reviewed by physician. Signing provider agrees with the documented findings, assessment, and plan of care. Objective - Vital Signs Vital signs: Vital Signs Temp 97.6 F 08/25/23 16:00 Pulse 80 08/25/23 16:00 Resp 22 08/25/23 16:00 BP 104/64 08/25/23 16:00 Pulse Ox 98 08/25/23 16:00 FiO2 35 08/25/23 16:00 Intake & Output 08/24/23 08/25/23 08/25/23 18:59 06:59 18:59 Intake Total 1918.800 2239.136 1484.527 Output Total 410 1560 580 Balance 1033.430 -203.864 904.527 Weight 73.5 kg Intake: IV 858 1014 702 Normal Saline Pressure 33 39 27 Bag Sodium Chloride 0.9% 1, 825 975 675 000 ml @ 75 mls/hr IV . [id number] [facility] Rx#:[id number] Intake, IV Titration 307.430 342.136 345.527 Amount Anidulafungin 100 mg In 100 Sodium Chloride 0.9% 100 ml @ 84 mls/hr IVPB DAILY @1600 [facility] Rx#:[id number] Clevidipine Butyrate 25 8.667 5.267 21.1 mg In Empty Bag 1 bag @ 1 MG/HR 2 mls/hr IV .Q24H [facility] Rx#:[id number] Midazolam HCl 50 mg In 32.483 54.116 27.466 Sodium Chloride 0.9% 40 ml @ 1 MG/HR 1 mls/hr IV .Q24H [facility] Rx#:[id number] fentaNYL (PF). 1,000 mcg 100 182.753 96.961 In Sodium Chloride 0.9% 80 ml @ 0.5 MCG/KG/HR 3. 005 mls/hr IV .Q24H [facility] Rx#:[id number] propofoL 1,000 mg In 166.280 100 100 Empty Bag 1 bag @ 15 MCG/ KG/MIN 5.715 mls/hr IV . [id number] [facility] Rx#:[id number] Tube Feeding 248 297 Other 30 140 Output: Urine 410 1560 580 Other: Voiding Method Indwelling Catheter Indwelling Catheter Indwelling Catheter ABP, PAP, CO, CI - Last Documented Arterial Blood Pressure 145/70 - Labs CBC & Chem 7: 08/25/23 04:37 08/25/23 04:37 Labs: Abnormal Lab Results - Last 24 Hours (Table) 08/25/23 08/25/23 08/25/23 Range/Units 04:37 04:37 05:23 WBC 16.9 H (3.8-10.6) k/uL MCV 100.6 H (80.0-100.0) fL Neutrophils # 15.7 H (1.3-7.7) k/uL Lymphocytes # 0.3 L (1.0-4.8) k/uL ABG pCO2 (35-45) mmHg ABG pO2 (83-108) mmHg ABG HCO3 (21-25) mmol/L ABG Total CO2 (19-24) mmol/L Sodium 136 L (137-145) mmol/L Carbon Dioxide 37 H (22-30) mmol/L BUN 24 H (7-17) mg/dL Creatinine 0.27 L (0.52-1.04) mg/dL Glucose 155 H (74-99) mg/dL POC Glucose (mg/dL) 64 L (70-110) mg/dL Calcium 8.0 L (8.4-10.2) mg/dL 08/25/23 08/25/23 Range/Units 05:26 11:36 WBC (3.8-10.6) k/uL MCV (80.0-100.0) fL Neutrophils # (1.3-7.7) k/uL Lymphocytes # (1.0-4.8) k/uL ABG pCO2 56 H (35-45) mmHg ABG pO2 69 L (83-108) mmHg ABG HCO3 39 H (21-25) mmol/L ABG Total CO2 41 H (19-24) mmol/L Sodium (137-145) mmol/L Carbon Dioxide (22-30) mmol/L BUN (7-17) mg/dL Creatinine (0.52-1.04) mg/dL Glucose (74-99) mg/dL POC Glucose (mg/dL) 158 H (70-110) mg/dL Calcium (8.4-10.2) mg/dL
[2023-08-25 17:48] LABS: Glucose,Whole Blood 122 mg/dL (70-110)
--- NOTE | 2023-08-25 20:24 | P.PN ---
Subjective Progress Note Date: 08/25/23 This is a 52-year-old female who initially came into the hospital due to difficulty breathing and cough. Patient was found to have significant COPD exacerbation and required intubation. She continues in the intensive care unit she is on the mechanical ventilator with an FiO2 of 35% with a PEEP of 5. She is currently on an IV Versed and IV fentanyl infusion as well as IV Solu-Medrol. She is currently sedated with propofol. patient is maintained on Biktarvy also for history of HIV. On enteral feedings. Chest x-ray today shows improved aeration of the lung bases. Labs today reveal a white blood cell count of 11.6, sodium 133, BUN of 23, creatinine of 0.29. Her glucose is in the 120s to 130s range. CO2 of 40. Sputum culture was found to be positive for Sergio. She is being considered for trach and PEG tube placement. 08/22/2023 Patient evaluated in follow up today in the ICU. Remains on the mechanical ventilator with FiO2 of 35% and PEEP of 5. Patient is scheduled for PEG/Trach placement today. Remains on IV fentanyl, IV versed, IV propofol, IV solumedrol. Patient is being hydrated with normal saline. Chest xray today shows no focal infiltrates. 08/23/2023 Patient remains in the intensive care unit. Patient is currently on the mechanical ventilator. Patient underwent trach and PEG tube placement today. Remains on IV fentanyl, IV versed, IV propofol, IV solumedrol. Patient remains on Biktarvy. Unable to be considered for rehab or select specialty at this time due to the cost of the Biktarvy medication which will need to be continued at this time. White blood cell count today 13.4, sodium 136, BUN 19, creatinine 0.30. CO2 level 42. Blood glucose 170. 08/24/2023 Patient is evaluated today in the ICU. Patient is postoperative trach and peg tube placement. Remains on mechanical ventilator with FiO2 of 35% and PEEP of 5. Currently on IV fentanyl, IV versed, IV propofol and remains on high dose IV solumedrol. Sputum culture was positive for sergio patient is having worsening WBC today is 15k and ID has recommended to start the patient on IV anidulafungin. Patient is being hydrated with normal saline running at 75 mls/hr. Tube feedings were placed on hold for the PEG tube placement and are to be resumed today. 08/25/2023 Patient evaluated today in the ICU, patient remains on the mechanical ventilator. White blood cell count up to 16.9. Continues on IV anidulafungin. Chest xray today reveals chronic changes without acute cardiopulmonary disease. Patient on IV precedex, IV fentanyl, IV versed, IV propofol. Remains on normal saline. Continues on high dose IV solumedrol. Resumed on enteral feedings. Unable to complete a review of systems as patient is currently intubated and sedated on the mechanical ventilator PHYSICAL EXAMINATION: GENERAL: The patient is alert and oriented x0, not in any acute distress. Well developed, well nourished. Sedated. HEENT: Pupils are round and equally reacting to light. EOMI. No scleral icterus. No conjunctival pallor. Normocephalic, atraumatic. No pharyngeal erythema. No thyromegaly. CARDIOVASCULAR: S1 and S2 present. No murmurs, rubs, or gallops. PULMONARY: Chest is clear to auscultation, no wheezing or crackles. ABDOMEN: Soft, nontender, nondistended, normoactive bowel sounds. No palpable organomegaly. MUSCULOSKELETAL: No joint swelling or deformity. EXTREMITIES: No cyanosis, clubbing, or pedal edema. NEUROLOGICAL: Unable to asses pt is sedated SKIN: No rashes. Assessment and Plan -Acute exacerbation of chronic COPD -Acute hypoxemic hypercapnic respiratory failure requiring intubation on 08/12 -Sergio albicans in the sputum -Left upper lobe nodule -Steroid induced hyperglycemia -Advanced COPD at baseline -History of smoking -History of HIV currently on Biktarvy. Viral count and CD4 counts are not known. No previous history of a persistent infections. The patient has not been receiving any form of antibiotic treatments such as Bactrim. Her infectious disease doctor is Dr. Salguero. The CD4 count is at 81 -Moderate protein calorie malnutrition -Chronic nicotine use GI prophylaxis: Protonix DVT prophylaxis: Lovenox Full Code Plan Continue with IV solumedrol, updrafts Mechanical ventilator per special education secretary Continue on enteral tube feedings which have been resumed. Continue accuchecks Q6h and sliding scale insulin Status post trach and PEG tube placement. Continues on propofol, fentanyl and versed Educational Specialist starting the patient on ativan with the goal of weaning off the versed gtt. Patient has been started on IV anidulafungin Repeat labs in the AM Prognosis remains guarded. The impression and plan of care has been dictated by Vangie Barton, Nurse Practitioner as directed. Dr. Dann MD I have performed a history and physical examination and medical decision making of this patient, discussed the same with the dictator, and agree with the dictators assessment and plan as written, documented as a scribe. Based on total visit time, I have performed more than 50% of this visit. Objective - Vital Signs Vital signs: Vital Signs Temp 98 F 08/25/23 12:00 Pulse 70 08/25/23 14:00 Resp 18 08/25/23 14:00 BP 106/75 08/25/23 14:00 Pulse Ox 97 08/25/23 14:00 FiO2 35 08/25/23 12:00 Intake & Output 08/24/23 08/25/23 08/25/23 18:59 06:59 18:59 Intake Total 5543.192 8987.136 782.783 Output Total 410 1560 455 Balance 1033.430 -203.864 327.783 Weight 73.5 kg Intake: IV 858 1014 390 Normal Saline Pressure 33 39 15 Bag Sodium Chloride 0.9% 1, 825 975 375 000 ml @ 75 mls/hr IV . [id number] [facility] Rx#:[id number] Intake, IV Titration 307.430 342.136 147.783 Amount Clevidipine Butyrate 25 8.667 5.267 21.1 mg In Empty Bag 1 bag @ 1 MG/HR 2 mls/hr IV .Q24H [facility] Rx#:[id number] Midazolam HCl 50 mg In 32.483 54.116 26.683 Sodium Chloride 0.9% 40 ml @ 1 MG/HR 1 mls/hr IV .Q24H [facility] Rx#:[id number] fentaNYL (PF). 1,000 mcg 100 182.753 In Sodium Chloride 0.9% 80 ml @ 0.5 MCG/KG/HR 3. 005 mls/hr IV .Q24H [facility] Rx#:[id number] propofoL 1,000 mg In 166.280 100 100 Empty Bag 1 bag @ 15 MCG/ KG/MIN 5.715 mls/hr IV . [id number] [facility] Rx#:[id number] Tube Feeding 248 165 Other 30 80 Output: Urine 410 1560 455 Other: Voiding Method Indwelling Catheter Indwelling Catheter Indwelling Catheter ABP, PAP, CO, CI - Last Documented Arterial Blood Pressure 107/53 - Labs CBC & Chem 7: 08/25/23 04:37 08/25/23 04:37 Labs: Abnormal Lab Results - Last 24 Hours (Table) 08/25/23 08/25/23 08/25/23 Range/Units 04:37 04:37 05:23 WBC 16.9 H (3.8-10.6) k/uL MCV 100.6 H (80.0-100.0) fL Neutrophils # 15.7 H (1.3-7.7) k/uL Lymphocytes # 0.3 L (1.0-4.8) k/uL ABG pCO2 (35-45) mmHg ABG pO2 (83-108) mmHg ABG HCO3 (21-25) mmol/L ABG Total CO2 (19-24) mmol/L Sodium 136 L (137-145) mmol/L Carbon Dioxide 37 H (22-30) mmol/L BUN 24 H (7-17) mg/dL Creatinine 0.27 L (0.52-1.04) mg/dL Glucose 155 H (74-99) mg/dL POC Glucose (mg/dL) 64 L (70-110) mg/dL Calcium 8.0 L (8.4-10.2) mg/dL 08/25/23 08/25/23 Range/Units 05:26 11:36 WBC (3.8-10.6) k/uL MCV (80.0-100.0) fL Neutrophils # (1.3-7.7) k/uL Lymphocytes # (1.0-4.8) k/uL ABG pCO2 56 H (35-45) mmHg ABG pO2 69 L (83-108) mmHg ABG HCO3 39 H (21-25) mmol/L ABG Total CO2 41 H (19-24) mmol/L Sodium (137-145) mmol/L Carbon Dioxide (22-30) mmol/L BUN (7-17) mg/dL Creatinine (0.52-1.04) mg/dL Glucose (74-99) mg/dL POC Glucose (mg/dL) 158 H (70-110) mg/dL Calcium (8.4-10.2) mg/dL Assessment and Plan Time with Patient: Less than 30
--- NOTE | 2023-08-25 20:55 | P.PN ---
Subjective Progress Note Date: 08/25/23 Principal diagnosis: Reason for follow-up is HIV and possible pneumonia Patient is a 52-year-old female with a past medical history significant for HIV on Biktarvy, also with a history of COPD presenting to the hospital for evaluation of increasing shortness of breath patient did have worsening respiratory status got intubated, patient did have a CT angiogram of the chest that was negative for PE did shows a lung nodule did not mention any infiltrate or consolidation.Patient is status post tracheostomy completed on 08/23/2023 On today's evaluation that is 08/25/2023, the patient continues to be afebrile, the patient is intubated on the vent through the trach with FiO2 of 35% no significant purulent secretions through the ET vomiting or any diarrhea rather patient is constipated no bowel movement. Patient white count is 16.27 Objective - Vital Signs Vital signs: Vital Signs Temp 97.6 F 08/25/23 16:00 Pulse 87 08/25/23 20:14 Resp 20 08/25/23 19:58 BP 147/93 08/25/23 19:00 Pulse Ox 98 08/25/23 19:00 FiO2 35 08/25/23 19:43 Intake & Output 08/25/23 08/25/23 08/26/23 06:59 18:59 06:59 Intake Total 8675.543 1740.594 123.399 Output Total 1560 645 30 Balance -407.958 9903.594 93.399 Weight 73.5 kg 73.5 kg Intake: IV 1014 858 78 Normal Saline Pressure 39 33 3 Bag Sodium Chloride 0.9% 1, 975 825 75 000 ml @ 75 mls/hr IV . [id number] [facility] Rx#:[id number] Intake, IV Titration 342.136 445.594 12.399 Amount Anidulafungin 100 mg In 100 Sodium Chloride 0.9% 100 ml @ 84 mls/hr IVPB DAILY @1600 [facility] Rx#:[id number] Clevidipine Butyrate 25 5.267 21.167 11.133 mg In Empty Bag 1 bag @ 1 MG/HR 2 mls/hr IV .Q24H [facility] Rx#:[id number] Midazolam HCl 50 mg In 54.116 27.466 1.266 Sodium Chloride 0.9% 40 ml @ 1 MG/HR 1 mls/hr IV .Q24H [facility] Rx#:[id number] fentaNYL (PF). 1,000 mcg 182.753 96.961 In Sodium Chloride 0.9% 80 ml @ 0.5 MCG/KG/HR 3. 005 mls/hr IV .Q24H [facility] Rx#:[id number] propofoL 1,000 mg In 100 200 Empty Bag 1 bag @ 15 MCG/ KG/MIN 5.715 mls/hr IV . [id number] [facility] Rx#:[id number] Tube Feeding 363 33 Other 170 Output: Urine 1560 645 30 Other: Voiding Method Indwelling Catheter Indwelling Catheter ABP, PAP, CO, CI - Last Documented Arterial Blood Pressure 167/83 - Exam GENERAL DESCRIPTION: Middle-aged female intubated on the vent through the trach RESPIRATORY SYSTEM: Unlabored breathing , decreased breath sounds at bases HEART: S1 S2 regular rate and rhythm , ABDOMEN: Soft , no tenderness EXTREMITIES: No edema feet - Labs CBC & Chem 7: 08/25/23 04:37 08/25/23 04:37 Labs: Abnormal Lab Results - Last 24 Hours (Table) 08/25/23 08/25/23 08/25/23 Range/Units 04:37 04:37 05:23 WBC 16.9 H (3.8-10.6) k/uL MCV 100.6 H (80.0-100.0) fL Neutrophils # 15.7 H (1.3-7.7) k/uL Lymphocytes # 0.3 L (1.0-4.8) k/uL ABG pCO2 (35-45) mmHg ABG pO2 (83-108) mmHg ABG HCO3 (21-25) mmol/L ABG Total CO2 (19-24) mmol/L Sodium 136 L (137-145) mmol/L Carbon Dioxide 37 H (22-30) mmol/L BUN 24 H (7-17) mg/dL Creatinine 0.27 L (0.52-1.04) mg/dL Glucose 155 H (74-99) mg/dL POC Glucose (mg/dL) 64 L (70-110) mg/dL Calcium 8.0 L (8.4-10.2) mg/dL 08/25/23 08/25/23 08/25/23 Range/Units 05:26 11:36 17:47 WBC (3.8-10.6) k/uL MCV (80.0-100.0) fL Neutrophils # (1.3-7.7) k/uL Lymphocytes # (1.0-4.8) k/uL ABG pCO2 56 H (35-45) mmHg ABG pO2 69 L (83-108) mmHg ABG HCO3 39 H (21-25) mmol/L ABG Total CO2 41 H (19-24) mmol/L Sodium (137-145) mmol/L Carbon Dioxide (22-30) mmol/L BUN (7-17) mg/dL Creatinine (0.52-1.04) mg/dL Glucose (74-99) mg/dL POC Glucose (mg/dL) 158 H 122 H (70-110) mg/dL Calcium (8.4-10.2) mg/dL Assessment and Plan (1) Acute respiratory failure Current Visit: Yes Status: Acute Code(s): J96.00 - ACUTE RESPIRATORY FAILURE, UNSP W HYPOXIA OR HYPERCAPNIA SNOMED Code(s): 46202759 (2) HIV disease Current Visit: No Status: Acute Code(s): B20 - HUMAN IMMUNODEFICIENCY VIRUS [HIV] DISEASE SNOMED Code(s): 21918021 Plan: 1patient presented to hospital with increasing shortness of breath which is likely multifactorial in this patient who did have a history of COPD and likely COPD is a patient with a tracheobronchitis underlying pneumonia less likely but not entirely excluded 2-patient did have a CT angiogram of the chest that was negative for PE did not show any evidence of pneumonia or interstitial infiltrate 3-patient did have a penicillin allergy that will limit the number of antibiotics safe to use 4-patient to continue with Biktarvy for HIV 5-patient sputum is growing Rimma which is likely colonization however the patient did have worsening of the white count could be component of orophar yngeal candidiasis patient to continue with Eraxis and watch her white count closely Dictation was produced using [employer] dictation software. please excuse any grammatical, word or spelling errors. Time with Patient: Less than 30
[2023-08-25 23:45] LABS: Glucose,Whole Blood 126 mg/dL (70-110)
[2023-08-26 04:19] LABS: Basophils # (A) 0.1 k/uL (0-0.2); Basophils % (A) 0 %; Eosinophils % (A) 0 %; HCT 41.4 % (34.0-46.0); HGB 12.9 gm/dL (11.4-16.0); Lymphocytes # (A) 0.2 k/uL (1.0-4.8); Lymphocytes % (A) 1 %; MCH 31.1 pg (25.0-35.0); MCHC 31.1 g/dL (31.0-37.0); MCV 99.9 fL (80.0-100.0); Mean Platelet Volume 7.4; Monocytes # (A) 0.6 k/uL (0-1.0); Monocytes % (A) 4 %; Neutrophils # (A) 16.7 k/uL (1.3-7.7); Neutrophils % (A) 94 %; Platelet Count 238 k/uL (150-450); RBC 4.14 m/uL (3.80-5.40); RDW 13.4 % (11.5-15.5); WBC 17.7 k/uL (3.8-10.6)
[2023-08-26 04:42] LABS: African American GFR (CKD) >90 (>60 ml/min/1.73 sqM); Blood Urea Nitrogen 21 mg/dL (7-17); Calcium 7.7 mg/dL (8.4-10.2); Chloride 99 mmol/L (98-107); Glucose 143 mg/dL (74-99); Magnesium 2.4 mg/dL (1.6-2.3); Non-African American GFR(CKD) >90 (>60 ml/min/1.73 sqM); Sodium 135 mmol/L (137-145)
[2023-08-26 04:49] LABS: Anion Gap -2 mmol/L
[2023-08-26 04:56] LABS: Carbon Dioxide 38 mmol/L (22-30)
[2023-08-26 06:10] LABS: ABG Base Excess 15.9 mmol/L; ABG Oxygen Saturation 96.5 % (94-97); ABG PCO2 57 mmHg (35-45); ABG PH 7.46 (7.35-7.45); ABG PO2 74 mmHg (83-108); ABG TCO2 42 mmol/L (19-24)
[2023-08-26 06:37] LABS: ABG HCO3 40 mmol/L (21-25)
[2023-08-26 06:40] LABS: Glucose,Whole Blood 153 mg/dL (70-110)
--- NOTE | 2023-08-26 09:17 | XR ---
EXAMINATION TYPE: XR chest 1V portable DATE OF EXAM: 08/26/2023 Comparison: 08/25/2023 Clinical History: 52-year-old female Tracheostomy tube placement Findings: Tracheostomy cannula. Heart normal size. Hyperinflation. Right PICC line to the mid SVC level. No fra nk consolidation. No sizable pleural effusion on the frontal view. Impression: COPD. No definite acute process.
[2023-08-26] MEDS: LORazepam 1 MG TAB PO SCH (09:23)
[2023-08-26] MEDS: HYDROmorphone 1 MG/ML 1 ML SYRINGE IVP SCH ×2 (09:35→12:50)
[2023-08-26 11:39] LABS: Glucose,Whole Blood 148 mg/dL (70-110)
[2023-08-26] MEDS ORDERED: HYDROmorphone 1 MG/ML 1 ML SYRINGE IVP SCH (12:00)
--- NOTE | 2023-08-26 13:14 | P.PN ---
Subjective Progress Note Date: 08/26/23 Principal diagnosis: Respiratory failure. Patient was elevated today on 08/16/2023, remains in the ICU, intubated and mechanically ventilated. Remains on assist-control rate of 18 tidal volume 350 FiO2 35% PEEP of 5 ABG showed a pO2 of 103 pCO2 68 pH of 7.31, hence no changes were made in vent settings. Patient continues to have relatively high peak airway pressures in the high 30s. Continues to be tight and seems to have poor air exchange. Yesterday the patient was given a trial off Nimbex, however could not tolerate going off Nimbex in spite of using propofol fentanyl and Versed. Patient had to go back on Nimbex yesterday because of extreme agitation and she was not synchronous with the ventilator, noted to be tachypneic, tachycardic, and she was bucking the ventilator. Not to mention she was developing significantly high airway pressure. Today the patient is back on Nimbex at 2 mcg/kg/min Fentanyl 1 mcg/kg/h propofol 60 mcg/kg/min she is receiving vital AF she is also 1.9 normal saline at 75 cc/h. Remains on antibiotics in the form of Levaquin and cefepime. Her cultures have been negative including BAL culture, she did have Rimma, doubt any significance, I infectious disease is addressing. Considering what I have noted yesterday when the patient was off Nimbex, and considering her overall clinical condition today, I have no plans to discontinue discontinue Nimbex today. Will continue with the present cocktail sedation including Nimbex fentanyl and propofol, and will continue mechanical ventilation without any major change. Also continue antibiotics. And bronchodilators as well as IV Solu-Medrol. Reevaluate today on 08/17/2023, patient remains in the ICU, intubated and mechanically ventilated. Remains on assist-control rate of 18 tidal volume 350 FiO2 35% and PEEP of 5 ABG showed a pO2 of 102 pCO2 65 pH of 7.33. Chest x-ray continues to show no evidence of any active process. Patient remains on propofol at 60 mcg/kg/min, Nimbex at 2 mcg/kg/min Fentanyl at 1 mcg/kg/h patient is receiving vital AF at she is remains on cefepime and Levaquin as per ID on the case. Today I plan to discontinue Nimbex and see if we could control patient's agitation adequately will fentanyl propofol and Versed if needed. Have tried in the past doing this, could not ventilate the patient without having to use Nimbex. However will try again to discontinue Nimbex and try to manage the patient with fentanyl propofol and Versed if possible. Otherwise I will place her back on Nimbex. Patient is hemodynamically stable, she is not requiring any pressors. She is receiving antibiotics is also receiving enteral feeding, and she is on GI and DVT prophylaxis. Reevaluate today on 08/18/2023, patient remains in the ICU, intubated and mechanically ventilated, on assist-control rate of 18 tidal volume 350 FiO2 35% PEEP of 5 ABG showed a pO2 of 85 pCO2 66 pH of 7.35 hence no changes were made in ventilator settings. Patient remains on fentanyl at 2 mcg/kg/h, Versed 4 mg/h propofol at 70 mcg/kg/min she is off Nimbex now for the last 24 hours, and able to control patient with sedation as such. Patient is on vital AF , the plan is to cut down her propofol to 50 and increase her Versed if needed. No plans to wean and extubate today, however will start possibly attempting sedation holidays beginning tomorrow. Chest x-ray continues to show no evidence of active disease. WBC count is 5.9 hemoglobin is 11.9 basic metabolic profile is normal renal profile is normal Patient was reevaluated today on 08/19/2023, remains in the ICU, intubated and mechanically ventilated, presently on assist-control rate of 18 tidal volume 350 FiO2 35% PEEP of 5 ABG showed a pO2 of 84 pCO2 68 pH of 7.35. Patient is close most likely to her baseline pCO2 in the 60s. Patient is on enteral feeding/vital HP she is also on propofol at 15 but the plan to increase up to 50 and discontinue Versed which is 3 mg/h at present patient is also on fentanyl 1 mcg/kg/h and an IV fluid at 75 cc/h in the form of saline. I am planning today to hold sedation, and assess mental status, but I am not planning to proceed to extubation. Her overall pulmonary status remains marginal at best, chest x-ray showed COPD but no evidence of pneumonia. WBC count is normal 7.3 hemoglobin is 11.9 basic metabolic profile is normal bicarb is 36 renal profile is normal Patient evaluated today on 08/20/2023, remains in the ICU, intubated and mechanically ventilated. Patient was given sedation holiday yesterday and early this morning, she gets extremely restless agitated, she was able to wiggle toes only, could not get any other responses on lower doses of sedation. However considering the patient is quite hypertensive off sedation, considering that the patient is definitely not ready for any form of weaning, the plan is to place back on fentanyl at 1 mcg/kg/h propofol will be increased back to 50 mcg/kg/min and will use Versed if necessary presently Versed is on hold. She is on 0.9 normal saline at 75 cc/h she is on Cleviprex at 13 mg/h patient is remains on antibiotics/Levaquin. Patient is developing a minimal patchy opacity in the right lower lobe which was not present previously, she is definitely a good set up for developing pneumonia. Ventilator settings today are assist-control rate of 18 tidal volume 350 FiO2 35% PEEP of 5 ABG showed a pO2 of 71 pCO2 68 pH of 7.40 hence no changes were made in vent settings. WBC count is 10.1 hemoglobin is 12 basic metabolic profile is normal except bicarb of 39 BUN is 33 creatinine 0.3 Progress note dated August 21, 2023. This is a 52-year-old female who was admitted on August 09. She came in with COPD exacerbation, and was intubated on August 12. She remains on the ventilator. She is on volume assist-control, rate 18, tidal volume 350, FiO2 35%, and PEEP of 5. Blood gases show pO2 of 63, pCO2 of 70, pH is 7.40. She continues on propofol at 40 mcg/kg/min, fentanyl at 1.5 mcg/kg/h, and Versed at 3 mg an hour. She is getting saline at 75 cc an hour, and vital AF at goal, which is 21 cc an hour. Because she has not made any headway towards weaning and extubation, we will ask surgery for tracheostomy and PEG tube placement. Current laboratory includes a white count 11.6, hemoglobin 12.2, hematocrit 38.3, and a normal platelet count. Sodium 133, potassium 4.1, chloride 95, CO2 40, BUN 23, and creatinine 0.29. Calcium 7.7. Sputum and bronchial washings were positive only for Rimma albicans. Chest x-ray shows improved aeration at the lung bases. Progress note dated August 22, 2023. This is a 52-year-old female who was admitted on August 09. She came in with COPD exacerbation, and was intubated on August 12. She remains on the ventilator. The patient's ventilator settings include volume assist-control, rate 18, tidal volume 350, FiO2 35%, and PEEP of 5. Blood gases show pO2 of 80, pCO2 of 67, pH is 7.42. The patient is getting saline at 75 cc an hour, propofol at 55 mcg/kg/min, fentanyl at 1.5 mcg/kg/h, Versed at 6 mg an hour, and tube feedings are on hold, for possible tracheostomy and PEG tube placement today. The patient's peak airway pressures 37, with a plateau pressure of 20. White count of 10.7, hemoglobin 11.6, hematocrit 37, and platelet count was normal. Sodium 135, potassium 4.5, chlorides 97, CO2 36, BUN 25, and creatinine is 0.36. Glucose is 136. Magnesium 2.4. Calcium 7.9. Chest x-ray shows no changes, compared to the prior chest x-ray. Progress note dated August 23, 2023. 52-year-old female admitted on August 09. She was admitted with a diagnosis of COPD exacerbation, and was intubated on August 12. She remains on the ventilator. Hopefully, today she will go for a tracheostomy, and PEG tube placement. She remains on the ventilator, with settings of volume assist- control, rate 18, tidal volume 350, FiO2 35%, and PEEP of 5. Blood gases show pO2 of 91, pCO2 of 63, pH is 7.44. The patient continues on saline at 75 cc an hour, Versed drip at 6 mg an hour, propofol at 55 mcg/kg/min, and fentanyl at 1.5 mcg/kg/h. Tube feeds are on hold. Will also ask for a PICC line, from interventional radiology. Currently, white count 13.4, globin 12, hematocrit 37.4, and platelet count 230,000. Sodium 136, potassium 4.1, chlorides 100, CO2 42, BUN 19, creatinine 0.30. Calcium is 8.1. Glucose is 128. Sputum, and bronchoscopy washings, does show evidence of Rimma albicans. Chest x-ray shows no definite focal consolidations. Progress note dated August 24, 2023. 52-year-old female admitted on August 09. She was admitted with a diagnosis of COPD exacerbation, and was intubated on August 12. She remains on the ventilator. The patient underwent a tracheostomy and PEG tube placement yesterday. She will have a PICC line placed today, i.e. August 23. Current ventilator settings include volume assist-control, rate 18, tidal volume 350, FiO2 35%, PEEP of 5. Blood gases show pO2 of 76, pCO2 of 63, pH is 7.41. The patient continues on Versed at 4 mg an hour, saline at 75 cc an hour, propofol at 40 mcg/kg/min, and fentanyl at 1.5 mcg/kg/h. Current white count 15, hemoglobin 12.2, hematocrit 37.5, and platelet count was normal. Sodium 136, potassium 4.2, chlorides 102, CO2 34, BUN 26, and creatinine 0.28. Glucose is 111. Albumin is 2.6 calcium 8.0. Chest x-ray is largely unchanged. Progress note dated August 25, 2023. 52-year-old female admitted on August 09, with a diagnosis of COPD exacerbation. The patient was intubated on August 12, for respiratory failure. The patient had a tracheostomy tube placed and PEG tube placed, on August 22. She remains on the mechanical ventilator. She is on volume assist-control, rate 18, tidal volume 350, FiO2 35%, PEEP of 5. Blood gases show pO2 of 69, pCO2 of 56, pH is 7.45. The patient is getting saline at 75 cc an hour, Cleveprex is currently off. The patient is also receiving propofol at 50 mcg/kg/min, and fentanyl at 2 mcg/kg/h. In addition, the patient is receiving Versed at 5 mg an hour, and vital, at goal, which is 33 cc an hour. White count is 16.9, hemoglobin 13.7, hematocrit 43, platelet count 233,000. Sodium 136, potassium 4, chlorides 100, CO2 37, BUN 24, creatinine 0.27. Glucose is 91. Calcium is 8. Microbiologic sampling is revealing evidence of Rimma albicans, in sputum, and bronchial washings. The patient's chest x-ray is mostly unchanged. Chronic changes are noted bilaterally. Progress note dated August 26, 2023. The patient is seen today in room 253. She remains on the mechanical ventilator. She is on volume assist-control, rate 18, tidal volume 350, FiO2 35%, PEEP of 5. Blood gases show pO2 74, pCO2 57, pH is 7.46. He is getting saline at 75 cc an hour, she has been on and off of Cleviprex. Currently, Versed is off. The patient continues on fentanyl at 2 mcg/kg/h, and vital AF at 33 cc an hour, which is goal. In addition, the patient's Solu-Medrol was converted to prednisone 40 mg a day. We will add Dilaudid, increase the Ativan frequency, and the patient continues on her antifungal, i.e. Eraxis. White count is 17.7, hemoglobin 12.9, hematocrit 41.4, and platelet count 238,000. Sodium 135, potassium 4, chloride 99, CO2 38, BUN 21, and creatinine 0.25. Magnesium is 2.4. Calcium 7.7. Glucose 148. The patient's chest x-ray is largely unchanged. Objective - Vital Signs Vital signs: Vital Signs Temp 97.9 F 08/26/23 12:00 Pulse 79 08/26/23 12:00 Resp 18 08/26/23 12:00 BP 100/59 08/26/23 12:00 Pulse Ox 100 08/26/23 12:00 FiO2 35 08/26/23 12:00 Intake & Output 08/25/23 08/26/23 08/26/23 18:59 06:59 18:59 Intake Total 8296.794 9676.406 689.156 Output Total 645 1095 420 Balance 1191.594 678.406 269.156 Weight 73.5 kg 75.2 kg Intake: IV 858 936 390 Normal Saline Pressure 33 36 15 Bag Sodium Chloride 0.9% 1, 825 900 375 000 ml @ 75 mls/hr IV . [id number] [facility] Rx#:[id number] Intake, IV Titration 445.594 351.406 74.156 Amount Anidulafungin 100 mg In 100 Sodium Chloride 0.9% 100 ml @ 84 mls/hr IVPB DAILY @1600 [facility] Rx#:[id number] Clevidipine Butyrate 25 21.167 23.033 mg In Empty Bag 1 bag @ 1 MG/HR 2 mls/hr IV .Q24H [facility] Rx#:[id number] Midazolam HCl 50 mg In 27.466 19.832 Sodium Chloride 0.9% 40 ml @ 1 MG/HR 1 mls/hr IV .Q24H [facility] Rx#:[id number] fentaNYL (PF). 1,000 mcg 96.961 132.655 74.156 In Sodium Chloride 0.9% 80 ml @ 0.5 MCG/KG/HR 3. 005 mls/hr IV .Q24H [facility] Rx#:[id number] propofoL 1,000 mg In 200 175.886 Empty Bag 1 bag @ 15 MCG/ KG/MIN 5.715 mls/hr IV . [id number] [facility] Rx#:[id number] Tube Feeding 363 396 165 Other 170 90 60 Output: Urine 645 1095 420 Other: Voiding Method Indwelling Catheter Indwelling Catheter Indwelling Catheter # Bowel Movements 1 ABP, PAP, CO, CI - Last Documented Arterial Blood Pressure 115/50 - Exam No acute distress, sedated, with an midline tracheostomy tube. HEENT examination is grossly unremarkable. Neck supple. Full range of motion. No adenopathy thyromegaly or neck vein distention. Cardiovascular examination reveals regular rhythm rate. S1-S2 normal. No S3 or S4. No discernible murmur noted. Heart sounds are distant. Heart rate 79 bpm. Lungs reveal scattered bilateral rhonchi. No wheezes or crackles. Breath sounds equal. Saturations are 96 % Abdomen soft, with bowel sounds. No masses or tenderness. PEG tube is noted. Extremities are intact. No cyanosis clubbing or edema. Skin is without rash or lesion. Neurologic examination cannot be adequately assessed at this time. - Labs CBC & Chem 7: 08/26/23 04:08 08/26/23 04:08 Labs: Abnormal Lab Results - Last 24 Hours (Table) 08/25/23 08/25/23 08/26/23 Range/Units 17:47 23:44 04:08 WBC 17.7 H (3.8-10.6) k/uL Neutrophils # 16.7 H (1.3-7.7) k/uL Lymphocytes # 0.2 L (1.0-4.8) k/uL ABG pH (7.35-7.45) ABG pCO2 (35-45) mmHg ABG pO2 (83-108) mmHg ABG HCO3 (21-25) mmol/L ABG Total CO2 (19-24) mmol/L Sodium (137-145) mmol/L Carbon Dioxide (22-30) mmol/L BUN (7-17) mg/dL Creatinine (0.52-1.04) mg/dL Glucose (74-99) mg/dL POC Glucose (mg/dL) 122 H 126 H (70-110) mg/dL Calcium (8.4-10.2) mg/dL Magnesium (1.6-2.3) mg/dL 08/26/23 08/26/23 08/26/23 Range/Units 04:08 04:10 06:38 WBC (3.8-10.6) k/uL Neutrophils # (1.3-7.7) k/uL Lymphocytes # (1.0-4.8) k/uL ABG pH 7.46 H (7.35-7.45) ABG pCO2 57 H (35-45) mmHg ABG pO2 74 L (83-108) mmHg ABG HCO3 40 H* (21-25) mmol/L ABG Total CO2 42 H (19-24) mmol/L Sodium 135 L (137-145) mmol/L Carbon Dioxide 38 H (22-30) mmol/L BUN 21 H (7-17) mg/dL Creatinine 0.25 L (0.52-1.04) mg/dL Glucose 143 H (74-99) mg/dL POC Glucose (mg/dL) 153 H (70-110) mg/dL Calcium 7.7 L (8.4-10.2) mg/dL Magnesium 2.4 H (1.6-2.3) mg/dL 08/26/23 Range/Units 11:37 WBC (3.8-10.6) k/uL Neutrophils # (1.3-7.7) k/uL Lymphocytes # (1.0-4.8) k/uL ABG pH (7.35-7.45) ABG pCO2 (35-45) mmHg ABG pO2 (83-108) mmHg ABG HCO3 (21-25) mmol/L ABG Total CO2 (19-24) mmol/L Sodium (137-145) mmol/L Carbon Dioxide (22-30) mmol/L BUN (7-17) mg/dL Creatinine (0.52-1.04) mg/dL Glucose (74-99) mg/dL POC Glucose (mg/dL) 148 H (70-110) mg/dL Calcium (8.4-10.2) mg/dL Magnesium (1.6-2.3) mg/dL Assessment and Plan Assessment: Acute hypoxemic respiratory failure, secondary to COPD exacerbation, status post intubation and mechanical ventilation on August 13, 2023. S/P tracheostomy and PEG tube placement, August 23, 2023. Advanced COPD. Left upper lobe pulmonary nodule, 9 mm. History of HIV. Status post bronchoscopy and BAL, August 12, nondiagnostic. Sputum samples, positive for Rimma albicans. Plan: Plan dated August 21, 2023. The patient has not really made any headway towards weaning and extubation. She was intubated on August 12. She has not been intubated for 9 days. Will ask surgery for tracheostomy and PEG tube placement. Patient continues on propofol, fentanyl, and Versed. She is receiving tube feedings. Blood gases have been reviewed. Labs, x-rays, and all medications are reviewed. Prognosis is guarded. We will continue to follow make recommendations along the way. Plan dated August 22, 2023. The patient's tube feeds are on hold, for anticipated tracheostomy tube placement and PEG tube placement today. The patient has a very high peak airway pressure 37 cm of water, and a plateau pressure of 20. The large peak to plateau difference, suggest increased airway resistance. Labs, x-rays, and medications are reviewed. The patient is maintained on propofol, fentanyl, and Versed. Blood gases show pO2 of 80, pCO2 of 67, and a pH of 7.42. Labs, x- rays, medications are reviewed. Prognosis is certainly guarded. We will continue to follow the patient, and make recommendations along the way. Plan dated August 23, 2023. The patient is supposed to go to the operating room today, for tracheostomy tube, and feeding tube/PEG tube. In addition, we will ask interventional radiology to place a PICC line on this patient. The patient continues on saline at 75 cc an hour, Versed at 6 mg an hour, propofol at 55 mcg/kg/min, and fentanyl at 1.5 mcg/kg/h. In addition, blood gases show pO2 of 91, pCO2 of 63, and a pH of 7.44. Labs, x-rays, and medications are reviewed. The patient's overall prognosis remains guarded. We will continue to follow the patient, and make recommendations along the way. Plan dated August 24, 2023. The patient had a tracheostomy and PEG tube placed yesterday. The patient will have a PICC line placed today. The patient continues on the ventilator. Gases show a pO2 of 76, pCO2 of 63, pH is 7.41. The patient continues on Versed 4 mg an hour, saline at 75 cc an hour, propofol at 40 mcg/kg/min, and fentanyl at 1.5 mcg/kg/h. Labs, x-rays, and medications are reviewed. We will continue to follow the patient, make recommendations along the way. Prognosis is certainly very guarded. Plan dated August 25, 2023. The patient continues on appropriate antibiotics. In addition, we will add some Ativan 1 mg every 6 hours, down the PEG tube, to see if we can get the patient off of the Versed drip. Labs, x-rays, and medications are reviewed. Blood gases are reasonable with a pO2 of 69, pCO2 of 56, pH is 7.45. The patient continues on propofol, fentanyl, and Versed. The patient is receiving tube f eedings at goal. The patient is also getting saline at 75 cc an hour. The patient's overall prognosis remains very guarded. We will continue to follow and make recommendations along the way. Plan dated August 26, 2023. The patient is seen today in room 253. The patient continues on the mechanical ventilator. In addition, she continues on saline at 75 cc an hour. Throughout the night, she has been on and off of Cleviprex. Currently, the Versed has been weaned off. She continues on fentanyl at 2 mcg/kg/h. She is also getting tube feedings at goal, which is 33 cc an hour. We will add Dilaudid to the regimen, and increase the frequency of Ativan. In addition, we will convert the Solu- Medrol to prednisone. The patient does continue on Eraxis. Labs, x-rays, and medications are reviewed. The patient's overall prognosis remains very guarded. We will continue to follow and make recommendations where appropriate. Time with Patient: Greater than 30
[2023-08-26 17:30] LABS: Glucose,Whole Blood 109 mg/dL (70-110)
--- NOTE | 2023-08-26 18:33 | P.PN ---
Subjective Progress Note Date: 08/26/23 Patient on ventilator full support. Patient is status post tracheostomy and gastrostomy tube placement. Patient is tolerating tube feeds at this time. No reports of moderate residuals. Neck: Tracheostomy intact. Abdomen: Gastrostomy tube intact. Plan: 1. Wean vent as tolerated. 2. Tube feeds goals per dietitian Objective - Vital Signs Vital signs: Vital Signs Temp 97.8 F 08/26/23 16:00 Pulse 90 08/26/23 18:00 Resp 17 08/26/23 18:00 BP 162/86 08/26/23 18:00 Pulse Ox 97 08/26/23 18:00 FiO2 35 08/26/23 16:00 Intake & Output 08/25/23 08/26/23 08/26/23 18:59 06:59 18:59 Intake Total 8737.880 5560.406 1855.558 Output Total 645 1095 975 Balance 1191.594 678.406 880.558 Weight 73.5 kg 75.2 kg Intake: IV 858 936 936 Normal Saline Pressure 33 36 36 Bag Sodium Chloride 0.9% 1, 825 900 900 000 ml @ 75 mls/hr IV . [id number] [facility] Rx#:[id number] Intake, IV Titration 445.594 351.406 353.558 Amount Anidulafungin 100 mg In 100 100 Sodium Chloride 0.9% 100 ml @ 84 mls/hr IVPB DAILY @1600 [facility] Rx#:[id number] Clevidipine Butyrate 25 21.167 23.033 38.333 mg In Empty Bag 1 bag @ 1 MG/HR 2 mls/hr IV .Q24H [facility] Rx#:[id number] Midazolam HCl 50 mg In 27.466 19.832 Sodium Chloride 0.9% 40 ml @ 1 MG/HR 1 mls/hr IV .Q24H [facility] Rx#:[id number] fentaNYL (PF). 1,000 mcg 96.961 132.655 115.225 In Sodium Chloride 0.9% 80 ml @ 0.5 MCG/KG/HR 3. 005 mls/hr IV .Q24H [facility] Rx#:[id number] propofoL 1,000 mg In 200 175.886 100 Empty Bag 1 bag @ 15 MCG/ KG/MIN 5.715 mls/hr IV . [id number] [facility] Rx#:[id number] Tube Feeding 363 396 396 Other 170 90 170 Output: Urine 705 1095 975 Other: Voiding Method Indwelling Catheter Indwelling Catheter Indwelling Catheter # Bowel Movements 1 ABP, PAP, CO, CI - Last Documented Arterial Blood Pressure 121/62 - Labs CBC & Chem 7: 08/26/23 04:08 08/26/23 04:08 Labs: Abnormal Lab Results - Last 24 Hours (Table) 08/25/23 08/26/23 08/26/23 Range/Units 23:44 04:08 04:08 WBC 17.7 H (3.8-10.6) k/uL Neutrophils # 16.7 H (1.3-7.7) k/uL Lymphocytes # 0.2 L (1.0-4.8) k/uL ABG pH (7.35-7.45) ABG pCO2 (35-45) mmHg ABG pO2 (83-108) mmHg ABG HCO3 (21-25) mmol/L ABG Total CO2 (19-24) mmol/L Sodium 135 L (137-145) mmol/L Carbon Dioxide 38 H (22-30) mmol/L BUN 21 H (7-17) mg/dL Creatinine 0.25 L (0.52-1.04) mg/dL Glucose 143 H (74-99) mg/dL POC Glucose (mg/dL) 126 H (70-110) mg/dL Calcium 7.7 L (8.4-10.2) mg/dL Magnesium 2.4 H (1.6-2.3) mg/dL 08/26/23 08/26/23 08/26/23 Range/Units 04:10 06:38 11:37 WBC (3.8-10.6) k/uL Neutrophils # (1.3-7.7) k/uL Lymphocytes # (1.0-4.8) k/uL ABG pH 7.46 H (7.35-7.45) ABG pCO2 57 H (35-45) mmHg ABG pO2 74 L (83-108) mmHg ABG HCO3 40 H* (21-25) mmol/L ABG Total CO2 42 H (19-24) mmol/L Sodium (137-145) mmol/L Carbon Dioxide (22-30) mmol/L BUN (7-17) mg/dL Creatinine (0.52-1.04) mg/dL Glucose (74-99) mg/dL POC Glucose (mg/dL) 153 H 148 H (70-110) mg/dL Calcium (8.4-10.2) mg/dL Magnesium (1.6-2.3) mg/dL
--- NOTE | 2023-08-26 19:18 | P.PN ---
Subjective Progress Note Date: 08/26/23 This is a 52-year-old female who initially came into the hospital due to difficulty breathing and cough. Patient was found to have significant COPD exacerbation and required intubation. She continues in the intensive care unit she is on the mechanical ventilator with an FiO2 of 35% with a PEEP of 5. She is currently on an IV Versed and IV fentanyl infusion as well as IV Solu-Medrol. She is currently sedated with propofol. patient is maintained on Biktarvy also for history of HIV. On enteral feedings. Chest x-ray today shows improved aeration of the lung bases. Labs today reveal a white blood cell count of 11.6, sodium 133, BUN of 23, creatinine of 0.29. Her glucose is in the 120s to 130s range. CO2 of 40. Sputum culture was found to be positive for Sergio. She is being considered for trach and PEG tube placement. 08/22/2023 Patient evaluated in follow up today in the ICU. Remains on the mechanical ventilator with FiO2 of 35% and PEEP of 5. Patient is scheduled for PEG/Trach placement today. Remains on IV fentanyl, IV versed, IV propofol, IV solumedrol. Patient is being hydrated with normal saline. Chest xray today shows no focal infiltrates. 08/23/2023 Patient remains in the intensive care unit. Patient is currently on the mechanical ventilator. Patient underwent trach and PEG tube placement today. Remains on IV fentanyl, IV versed, IV propofol, IV solumedrol. Patient remains on Biktarvy. Unable to be considered for rehab or select specialty at this time due to the cost of the Biktarvy medication which will need to be continued at this time. White blood cell count today 13.4, sodium 136, BUN 19, creatinine 0.30. CO2 level 42. Blood glucose 170. 08/24/2023 Patient is evaluated today in the ICU. Patient is postoperative trach and peg tube placement. Remains on mechanical ventilator with FiO2 of 35% and PEEP of 5. Currently on IV fentanyl, IV versed, IV propofol and remains on high dose IV solumedrol. Sputum culture was positive for sergio patient is having worsening WBC today is 15k and ID has recommended to start the patient on IV anidulafungin. Patient is being hydrated with normal saline running at 75 mls/hr. Tube feedings were placed on hold for the PEG tube placement and are to be resumed today. 08/25/2023 Patient evaluated today in the ICU, patient remains on the mechanical ventilator. White blood cell count up to 16.9. Continues on IV anidulafungin. Chest xray today reveals chronic changes without acute cardiopulmonary disease. Patient on IV precedex, IV fentanyl, IV versed, IV propofol. Remains on normal saline. Continues on high dose IV solumedrol. Resumed on enteral feedings. 08/26/2023 Patient seen in follow-up continues to be in the ICU with multiple medical consultations following. Patient remains on mechanical ventilation with an FiO2 of 35%. Patient is currently weaned off Cleviprex and continues on fentanyl. Patient also maintained on antifungal with infectious disease following. Tube feedings at goal and patient is tolerating. Patient is afebrile although white count continues to remain elevated, possibly steroid effect and patient is being transition to oral prednisone. Continue with breathing inhalational treatments and follow-up on chest x-ray. Unable to complete a review of systems as patient is currently intubated and sedated on the mechanical ventilator PHYSICAL EXAMINATION: GENERAL: The patient is alert and oriented x0, not in any acute distress. Well developed, well nourished. Sedated. Ill-appearing HEENT: Pupils are round and equally reacting to light. EOMI. No scleral icterus. No conjunctival pallor. Normocephalic, atraumatic. No pharyngeal erythema. No thyromegaly. CARDIOVASCULAR: S1 and S2 present. No murmurs, rubs, or gallops. PULMONARY: Diminished breath sounds bilaterally with scattered rhonchi noted.. ABDOMEN: Soft, nontender, nondistended, normoactive bowel sounds. No palpable organomegaly. MUSCULOSKELETAL: No joint swelling or deformity. EXTREMITIES: No cyanosis, clubbing, mild generalized edema noted NEUROLOGICAL: Unable to asses pt is sedated SKIN: No rashes. Assessment and Plan -Acute exacerbation of chronic COPD -Acute hypoxemic hypercapnic respiratory failure requiring intubation on 08/12 status post PEG tube and tracheostomy placement -Sergio albicans in the sputum -Left upper lobe nodule -Steroid induced hyperglycemia -Advanced COPD at baseline -History of smoking -History of HIV currently on Biktarvy. Viral count and CD4 counts are not kno wn. No previous history of a persistent infections. The patient has not been receiving any form of antibiotic treatments such as Bactrim. Her infectious disease doctor is Dr. Salguero. The CD4 count is at 81 -Moderate protein calorie malnutrition -Chronic nicotine use GI prophylaxis: Protonix DVT prophylaxis: Lovenox Full Code Plan Continue with updrafts with pulmonary following and patient has been transition to oral prednisone Continue antifungals with infectious disease following Mechanical ventilator per director federal, status post PEG and trach FiO2 is 35% with a PEEP of 5 Continue on enteral tube feedings currently at goal and tolerating, monitor for residuals closely Continue accuchecks Q6h and sliding scale insulin Continues on propofol, fentanyl and versed, undergoing weaning trials Mh Teacher continues with the patient on ativan with the goal of weaning off the versed gtt. Repeat labs in the AM Overall prognosis is extremely poor and remains guarded. The impression and plan of care has been dictated by Deirdre Ashley, Nurse Practitioner as directed. Dr. Dann MD I have performed a history and physical examination and medical decision making of this patient, discussed the same with the dictator, and agree with the dictators assessment and plan as written, documented as a scribe. Based on total visit time, I have performed more than 50% of this visit. Objective - Vital Signs Vital signs: Vital Signs Temp 98.1 F 08/26/23 08:00 Pulse 81 08/26/23 09:00 Resp 18 08/26/23 09:00 BP 102/59 08/26/23 09:00 Pulse Ox 98 08/26/23 09:00 FiO2 35 08/26/23 08:00 Intake & Output 08/25/23 08/26/23 08/26/23 18:59 06:59 18:59 Intake Total 1771.284 3658.406 393 Output Total 645 1095 270 Balance 1191.594 678.406 123 Weight 73.5 kg 75.2 kg Intake: IV 858 936 234 Normal Saline Pressure 33 36 9 Bag Sodium Chloride 0.9% 1, 825 900 225 000 ml @ 75 mls/hr IV . [id number] [facility] Rx#:[id number] Intake, IV Titration 445.594 351.406 Amount Anidulafungin 100 mg In 100 Sodium Chloride 0.9% 100 ml @ 84 mls/hr IVPB DAILY @1600 [facility] Rx#:[id number] Clevidipine Butyrate 25 21.167 23.033 mg In Empty Bag 1 bag @ 1 MG/HR 2 mls/hr IV .Q24H [facility] Rx#:[id number] Midazolam HCl 50 mg In 27.466 19.832 Sodium Chloride 0.9% 40 ml @ 1 MG/HR 1 mls/hr IV .Q24H [facility] Rx#:[id number] fentaNYL (PF). 1,000 mcg 96.961 132.655 In Sodium Chloride 0.9% 80 ml @ 0.5 MCG/KG/HR 3. 005 mls/hr IV .Q24H [facility] Rx#:[id number] propofoL 1,000 mg In 200 175.886 Empty Bag 1 bag @ 15 MCG/ KG/MIN 5.715 mls/hr IV . [id number] [facility] Rx#:[id number] Tube Feeding 363 396 99 Other 170 90 60 Output: Urine 645 1095 270 Other: Voiding Method Indwelling Catheter Indwelling Catheter # Bowel Movements 1 ABP, PAP, CO, CI - Last Documented Arterial Blood Pressure 123/58 - Labs CBC & Chem 7: 08/26/23 04:08 08/26/23 04:08 Labs: Abnormal Lab Results - Last 24 Hours (Table) 08/25/23 08/25/23 08/25/23 Range/Units 11:36 17:47 23:44 WBC (3.8-10.6) k/uL Neutrophils # (1.3-7.7) k/uL Lymphocytes # (1.0-4.8) k/uL ABG pH (7.35-7.45) ABG pCO2 (35-45) mmHg ABG pO2 (83-108) mmHg ABG HCO3 (21-25) mmol/L ABG Total CO2 (19-24) mmol/L Sodium (137-145) mmol/L Carbon Dioxide (22-30) mmol/L BUN (7-17) mg/dL Creatinine (0.52-1.04) mg/dL Glucose (74-99) mg/dL POC Glucose (mg/dL) 158 H 122 H 126 H (70-110) mg/dL Calcium (8.4-10.2) mg/dL Magnesium (1.6-2.3) mg/dL 08/26/23 08/26/23 08/26/23 Range/Units 04:08 04:08 04:10 WBC 17.7 H (3.8-10.6) k/uL Neutrophils # 16.7 H (1.3-7.7) k/uL Lymphocytes # 0.2 L (1.0-4.8) k/uL ABG pH 7.46 H (7.35-7.45) ABG pCO2 57 H (35-45) mmHg ABG pO2 74 L (83-108) mmHg ABG HCO3 40 H* (21-25) mmol/L ABG Total CO2 42 H (19-24) mmol/L Sodium 135 L (137-145) mmol/L Carbon Dioxide 38 H (22-30) mmol/L BUN 21 H (7-17) mg/dL Creatinine 0.25 L (0.52-1.04) mg/dL Glucose 143 H (74-99) mg/dL POC Glucose (mg/dL) (70-110) mg/dL Calcium 7.7 L (8.4-10.2) mg/dL Magnesium 2.4 H (1.6-2.3) mg/dL 08/26/23 Range/Units 06:38 WBC (3.8-10.6) k/uL Neutrophils # (1.3-7.7) k/uL Lymphocytes # (1.0-4.8) k/uL ABG pH (7.35-7.45) ABG pCO2 (35-45) mmHg ABG pO2 (83-108) mmHg ABG HCO3 (21-25) mmol/L ABG Total CO2 (19-24) mmol/L Sodium (137-145) mmol/L Carbon Dioxide (22-30) mmol/L BUN (7-17) mg/dL Creatinine (0.52-1.04) mg/dL Glucose (74-99) mg/dL POC Glucose (mg/dL) 153 H (70-110) mg/dL Calcium (8.4-10.2) mg/dL Magnesium (1.6-2.3) mg/dL
--- NOTE | 2023-08-26 21:29 | P.PN ---
Subjective Progress Note Date: 08/26/23 Principal diagnosis: Reason for follow-up is HIV and possible pneumonia Patient is a 52-year-old female with a past medical history significant for HIV on Biktarvy, also with a history of COPD presenting to the hospital for evaluation of increasing shortness of breath patient did have worsening respiratory status got intubated, patient did have a CT angiogram of the chest that was negative for PE did shows a lung nodule did not mention any infiltrate or consolidation.Patient is status post tracheostomy completed on 08/23/2023 On today's evaluation that is 08/26/2023, Patient is afebrile patient is currently on the vent through the trach FiO2 35% no significant purulent secretions in the ET,, diarrhea or any other changes reported by the nursing staff. Patient white count is 17.7, creatinine is 0.25 sputum with Rimma albicans Objective - Vital Signs Vital signs: Vital Signs Temp 97.9 F 08/26/23 12:00 Pulse 87 08/26/23 15:45 Resp 22 08/26/23 15:45 BP 139/85 08/26/23 15:45 Pulse Ox 98 08/26/23 15:45 FiO2 35 08/26/23 15:14 Intake & Output 08/25/23 08/26/23 08/26/23 18:59 06:59 18:59 Intake Total 9128.202 5058.406 1297.029 Output Total 645 1095 575 Balance 1191.594 678.406 722.029 Weight 73.5 kg 75.2 kg Intake: IV 858 936 702 Normal Saline Pressure 33 36 27 Bag Sodium Chloride 0.9% 1, 825 900 675 000 ml @ 75 mls/hr IV . [id number] [facility] Rx#:[id number] Intake, IV Titration 445.594 351.406 188.029 Amount Anidulafungin 100 mg In 100 Sodium Chloride 0.9% 100 ml @ 84 mls/hr IVPB DAILY @1600 [facility] Rx#:[id number] Clevidipine Butyrate 25 21.167 23.033 0.200 mg In Empty Bag 1 bag @ 1 MG/HR 2 mls/hr IV .Q24H [facility] Rx#:[id number] Midazolam HCl 50 mg In 27.466 19.832 Sodium Chloride 0.9% 40 ml @ 1 MG/HR 1 mls/hr IV .Q24H [facility] Rx#:[id number] fentaNYL (PF). 1,000 mcg 96.961 132.655 87.829 In Sodium Chloride 0.9% 80 ml @ 0.5 MCG/KG/HR 3. 005 mls/hr IV .Q24H [facility] Rx#:[id number] propofoL 1,000 mg In 200 175.886 100 Empty Bag 1 bag @ 15 MCG/ KG/MIN 5.715 mls/hr IV . [id number] [facility] Rx#:[id number] Tube Feeding 363 396 297 Other 170 90 110 Output: Urine 645 1095 575 Other: Voiding Method Indwelling Catheter Indwelling Catheter Indwelling Catheter # Bowel Movements 1 ABP, PAP, CO, CI - Last Documented Arterial Blood Pressure 141/63 - Exam GENERAL DESCRIPTION: Middle-aged female intubated on the vent through the trach RESPIRATORY SYSTEM: Unlabored breathing , decreased breath sounds at bases HEART: S1 S2 regular rate and rhythm , ABDOMEN: Soft , no tenderness EXTREMITIES: No edema feet - Labs CBC & Chem 7: 08/26/23 04:08 08/26/23 04:08 Labs: Abnormal Lab Results - Last 24 Hours (Table) 08/25/23 08/25/23 08/26/23 Range/Units 17:47 23:44 04:08 WBC 17.7 H (3.8-10.6) k/uL Neutrophils # 16.7 H (1.3-7.7) k/uL Lymphocytes # 0.2 L (1.0-4.8) k/uL ABG pH (7.35-7.45) ABG pCO2 (35-45) mmHg ABG pO2 (83-108) mmHg ABG HCO3 (21-25) mmol/L ABG Total CO2 (19-24) mmol/L Sodium (137-145) mmol/L Carbon Dioxide (22-30) mmol/L BUN (7-17) mg/dL Creatinine (0.52-1.04) mg/dL Glucose (74-99) mg/dL POC Glucose (mg/dL) 122 H 126 H (70-110) mg/dL Calcium (8.4-10.2) mg/dL Magnesium (1.6-2.3) mg/dL 08/26/23 08/26/23 08/26/23 Range/Units 04:08 04:10 06:38 WBC (3.8-10.6) k/uL Neutrophils # (1.3-7.7) k/uL Lymphocytes # (1.0-4.8) k/uL ABG pH 7.46 H (7.35-7.45) ABG pCO2 57 H (35-45) mmHg ABG pO2 74 L (83-108) mmHg ABG HCO3 40 H* (21-25) mmol/L ABG Total CO2 42 H (19-24) mmol/L Sodium 135 L (137-145) mmol/L Carbon Dioxide 38 H (22-30) mmol/L BUN 21 H (7-17) mg/dL Creatinine 0.25 L (0.52-1.04) mg/dL Glucose 143 H (74-99) mg/dL POC Glucose (mg/dL) 153 H (70-110) mg/dL Calcium 7.7 L (8.4-10.2) mg/dL Magnesium 2.4 H (1.6-2.3) mg/dL 08/26/23 Range/Units 11:37 WBC (3.8-10.6) k/uL Neutrophils # (1.3-7.7) k/uL Lymphocytes # (1.0-4.8) k/uL ABG pH (7.35-7.45) ABG pCO2 (35-45) mmHg ABG pO2 (83-108) mmHg ABG HCO3 (21-25) mmol/L ABG Total CO2 (19-24) mmol/L Sodium (137-145) mmol/L Carbon Dioxide (22-30) mmol/L BUN (7-17) mg/dL Creatinine (0.52-1.04) mg/dL Glucose (74-99) mg/dL POC Glucose (mg/dL) 148 H (70-110) mg/dL Calcium (8.4-10.2) mg/dL Magnesium (1.6-2.3) mg/dL Assessment and Plan (1) Acute respiratory failure Current Visit: Yes Status: Acute Code(s): J96.00 - ACUTE RESPIRATORY DONTE LURE, UNSP W HYPOXIA OR HYPERCAPNIA SNOMED Code(s): 10131227 (2) HIV disease Current Visit: No Status: Acute Code(s): B20 - HUMAN IMMUNODEFICIENCY VIRUS [HIV] DISEASE SNOMED Code(s): 16220603 Plan: 1patient presented to hospital with increasing shortness of breath which is likely multifactorial in this patient who did have a history of COPD and likely COPD is a patient with a tracheobronchitis underlying pneumonia less likely but not entirely excluded 2-patient did have a CT angiogram of the chest that was negative for PE did not show any evidence of pneumonia or interstitial infiltrate 3-patient did have a penicillin allergy that will limit the number of antibiotics safe to use 4-patient to continue with Biktarvy for HIV 5-patient sputum is growing Rimma which is likely colonization however the patient did have worsening of the white count could be component of oropharyngeal candidiasis, for the patient was started on Eraxis white count still trending up more likely steroid related as no history of any worsening infection and will monitor closely Dictation was produced using [employer] dictation software. please excuse any grammatical, word or spelling errors. Time with Patient: Less than 30
[2023-08-26 23:27] LABS: Glucose,Whole Blood 96 mg/dL (70-110)
[2023-08-27 04:31] LABS: African American GFR (CKD) >90 (>60 ml/min/1.73 sqM); Blood Urea Nitrogen 19 mg/dL (7-17); Calcium 7.4 mg/dL (8.4-10.2); Chloride 100 mmol/L (98-107); Glucose 86 mg/dL (74-99); Magnesium 2.3 mg/dL (1.6-2.3); Non-African American GFR(CKD) >90 (>60 ml/min/1.73 sqM); Potassium 3.8 mmol/L (3.5-5.1); Sodium 136 mmol/L (137-145)
[2023-08-27 04:37] LABS: Anion Gap 0 mmol/L; Carbon Dioxide 36 mmol/L (22-30)
[2023-08-27 04:43] LABS: Basophils % (A) 0 %; Eosinophils % (A) 0 %; HCT 39.4 % (34.0-46.0); HGB 12.4 gm/dL (11.4-16.0); Lymphocytes # (A) 1.7 k/uL (1.0-4.8); Lymphocytes % (A) 12 %; MCH 31.5 pg (25.0-35.0); MCHC 31.6 g/dL (31.0-37.0); MCV 99.8 fL (80.0-100.0); Mean Platelet Volume 7.6; Monocytes # (A) 0.5 k/uL (0-1.0); Monocytes % (A) 3 %; Neutrophils % (A) 84 %; Platelet Count 202 k/uL (150-450); RBC 3.95 m/uL (3.80-5.40); RDW 13.6 % (11.5-15.5); WBC 14.3 k/uL (3.8-10.6)
[2023-08-27 05:13] LABS: ABG Base Excess 15.2 mmol/L; ABG Oxygen Saturation 96.7 % (94-97); ABG PCO2 60 mmHg (35-45); ABG PH 7.43 (7.35-7.45); ABG PO2 79 mmHg (83-108); ABG TCO2 41 mmol/L (19-24)
[2023-08-27 05:58] LABS: ABG HCO3 40 mmol/L (21-25); Allen Test Performed? no
[2023-08-27] MEDS: POTASSIUM CHLORIDE 10 MEQ in WATER FOR INJECTION 1 100ML.BAG IVPB SCH (06:46)
[2023-08-27 06:56] LABS: Glucose,Whole Blood 60 mg/dL (70-110)
[2023-08-27] MEDS ORDERED: DEXTROSE 50% SYRINGE 50 ML IVP PRN (06:59)
[2023-08-27] MEDS: DEXTROSE 50% SYRINGE 50 ML IVP PRN (07:02)
[2023-08-27 07:22] LABS: Glucose,Whole Blood 101 mg/dL (70-110)
[2023-08-27] MEDS: DEXTROSE 50% SYRINGE 50 ML IVP ONE (08:01)
[2023-08-27] MEDS: predniSONE 20 MG TAB PO SCH (08:02)
[2023-08-27] MEDS: QUEtiapine 50 MG TAB PO SCH (09:57)
--- NOTE | 2023-08-27 10:04 | XR ---
EXAM: XR chest 1V portable CLINICAL INDICATION:Female, 52 years old with history of trach tube placement; [facility] COMPARISON: 08/26/2023 and before TECHNIQUE: Chest single view. FINDINGS: Lines/tubes/devices: Tracheostomy cannula noted in place. Stable position of right arm PICC or centra l line with tip over the SVC. EKG leads and other presumed extrinsic radiodensities overlie the chest . Cardiomediastinum: Cardiac silhouette appears normal in size. Stable mediastinal silhouette. Vasculature: No increased pulmonary vasculature. Lungs/pleura: No consolidation, sizeable effusion, or visible pneumothorax. Similar-appearing mild coarsening of in terstitium. Bones/soft tissues: Bony thorax appears grossly intact as seen. Regional soft tissues appear unremarkable. IMPRESSION: 1. Lines and tubes in place, as above. 2. Stable cardiopulmonary status.
[2023-08-27 11:39] LABS: Glucose,Whole Blood 115 mg/dL (70-110)
[2023-08-27 11:39] LABS: Glucose,Whole Blood 106 mg/dL (70-110)
--- NOTE | 2023-08-27 11:50 | P.PN ---
Subjective Progress Note Date: 08/27/23 Principal diagnosis: Respiratory failure. Patient was elevated today on 08/16/2023, remains in the ICU, intubated and mechanically ventilated. Remains on assist-control rate of 18 tidal volume 350 FiO2 35% PEEP of 5 ABG showed a pO2 of 103 pCO2 68 pH of 7.31, hence no changes were made in vent settings. Patient continues to have relatively high peak airway pressures in the high 30s. Continues to be tight and seems to have poor air exchange. Yesterday the patient was given a trial off Nimbex, however could not tolerate going off Nimbex in spite of using propofol fentanyl and Versed. Patient had to go back on Nimbex yesterday because of extreme agitation and she was not synchronous with the ventilator, noted to be tachypneic, tachycardic, and she was bucking the ventilator. Not to mention she was developing significantly high airway pressure. Today the patient is back on Nimbex at 2 mcg/kg/min Fentanyl 1 mcg/kg/h propofol 60 mcg/kg/min she is receiving vital AF she is also 1.9 normal saline at 75 cc/h. Remains on antibiotics in the form of Levaquin and cefepime. Her cultures have been negative including BAL culture, she did have Rimma, doubt any significance, I infectious disease is addressing. Considering what I have noted yesterday when the patient was off Nimbex, and considering her overall clinical condition today, I have no plans to discontinue discontinue Nimbex today. Will continue with the present cocktail sedation including Nimbex fentanyl and propofol, and will continue mechanical ventilation without any major change. Also continue antibiotics. And bronchodilators as well as IV Solu-Medrol. Reevaluate today on 08/17/2023, patient remains in the ICU, intubated and mechanically ventilated. Remains on assist-control rate of 18 tidal volume 350 FiO2 35% and PEEP of 5 ABG showed a pO2 of 102 pCO2 65 pH of 7.33. Chest x-ray continues to show no evidence of any active process. Patient remains on propofol at 60 mcg/kg/min, Nimbex at 2 mcg/kg/min Fentanyl at 1 mcg/kg/h patient is receiving vital AF at she is remains on cefepime and Levaquin as per ID on the case. Today I plan to discontinue Nimbex and see if we could control patient's agitation adequately will fentanyl propofol and Versed if needed. Have tried in the past doing this, could not ventilate the patient without having to use Nimbex. However will try again to discontinue Nimbex and try to manage the patient with fentanyl propofol and Versed if possible. Otherwise I will place her back on Nimbex. Patient is hemodynamically stable, she is not requiring any pressors. She is receiving antibiotics is also receiving enteral feeding, and she is on GI and DVT prophylaxis. Reevaluate today on 08/18/2023, patient remains in the ICU, intubated and mechanically ventilated, on assist-control rate of 18 tidal volume 350 FiO2 35% PEEP of 5 ABG showed a pO2 of 85 pCO2 66 pH of 7.35 hence no changes were made in ventilator settings. Patient remains on fentanyl at 2 mcg/kg/h, Versed 4 mg/h propofol at 70 mcg/kg/min she is off Nimbex now for the last 24 hours, and able to control patient with sedation as such. Patient is on vital AF , the plan is to cut down her propofol to 50 and increase her Versed if needed. No plans to wean and extubate today, however will start possibly attempting sedation holidays beginning tomorrow. Chest x-ray continues to show no evidence of active disease. WBC count is 5.9 hemoglobin is 11.9 basic metabolic profile is normal renal profile is normal Patient was reevaluated today on 08/19/2023, remains in the ICU, intubated and mechanically ventilated, presently on assist-control rate of 18 tidal volume 350 FiO2 35% PEEP of 5 ABG showed a pO2 of 84 pCO2 68 pH of 7.35. Patient is close most likely to her baseline pCO2 in the 60s. Patient is on enteral feeding/vital HP she is also on propofol at 15 but the plan to increase up to 50 and discontinue Versed which is 3 mg/h at present patient is also on fentanyl 1 mcg/kg/h and an IV fluid at 75 cc/h in the form of saline. I am planning today to hold sedation, and assess mental status, but I am not planning to proceed to extubation. Her overall pulmonary status remains marginal at best, chest x-ray showed COPD but no evidence of pneumonia. WBC count is normal 7.3 hemoglobin is 11.9 basic metabolic profile is normal bicarb is 36 renal profile is normal Patient evaluated today on 08/20/2023, remains in the ICU, intubated and mechanically ventilated. Patient was given sedation holiday yesterday and early this morning, she gets extremely restless agitated, she was able to wiggle toes only, could not get any other responses on lower doses of sedation. However considering the patient is quite hypertensive off sedation, considering that the patient is definitely not ready for any form of weaning, the plan is to place back on fentanyl at 1 mcg/kg/h propofol will be increased back to 50 mcg/kg/min and will use Versed if necessary presently Versed is on hold. She is on 0.9 normal saline at 75 cc/h she is on Cleviprex at 13 mg/h patient is remains on antibiotics/Levaquin. Patient is developing a minimal patchy opacity in the right lower lobe which was not present previously, she is definitely a good set up for developing pneumonia. Ventilator settings today are assist-control rate of 18 tidal volume 350 FiO2 35% PEEP of 5 ABG showed a pO2 of 71 pCO2 68 pH of 7.40 hence no changes were made in vent settings. WBC count is 10.1 hemoglobin is 12 basic metabolic profile is normal except bicarb of 39 BUN is 33 creatinine 0.3 Progress note dated August 21, 2023. This is a 52-year-old female who was admitted on August 09. She came in with COPD exacerbation, and was intubated on August 12. She remains on the ventilator. She is on volume assist-control, rate 18, tidal volume 350, FiO2 35%, and PEEP of 5. Blood gases show pO2 of 63, pCO2 of 70, pH is 7.40. She continues on propofol at 40 mcg/kg/min, fentanyl at 1.5 mcg/kg/h, and Versed at 3 mg an hour. She is getting saline at 75 cc an hour, and vital AF at goal, which is 21 cc an hour. Because she has not made any headway towards weaning and extubation, we will ask surgery for tracheostomy and PEG tube placement. Current laboratory includes a white count 11.6, hemoglobin 12.2, hematocrit 38.3, and a normal platelet count. Sodium 133, potassium 4.1, chloride 95, CO2 40, BUN 23, and creatinine 0.29. Calcium 7.7. Sputum and bronchial washings were positive only for Rimma albicans. Chest x-ray shows improved aeration at the lung bases. Progress note dated August 22, 2023. This is a 52-year-old female who was admitted on August 09. She came in with COPD exacerbation, and was intubated on August 12. She remains on the ventilator. The patient's ventilator settings include volume assist-control, rate 18, tidal volume 350, FiO2 35%, and PEEP of 5. Blood gases show pO2 of 80, pCO2 of 67, pH is 7.42. The patient is getting saline at 75 cc an hour, propofol at 55 mcg/kg/min, fentanyl at 1.5 mcg/kg/h, Versed at 6 mg an hour, and tube feedings are on hold, for possible tracheostomy and PEG tube placement today. The patient's peak airway pressures 37, with a plateau pressure of 20. White count of 10.7, hemoglobin 11.6, hematocrit 37, and platelet count was normal. Sodium 135, potassium 4.5, chlorides 97, CO2 36, BUN 25, and creatinine is 0.36. Glucose is 136. Magnesium 2.4. Calcium 7.9. Chest x-ray shows no changes, compared to the prior chest x-ray. Progress note dated August 23, 2023. 52-year-old female admitted on August 09. She was admitted with a diagnosis of COPD exacerbation, and was intubated on August 12. She remains on the ventilator. Hopefully, today she will go for a tracheostomy, and PEG tube placement. She remains on the ventilator, with settings of volume assist- control, rate 18, tidal volume 350, FiO2 35%, and PEEP of 5. Blood gases show pO2 of 91, pCO2 of 63, pH is 7.44. The patient continues on saline at 75 cc an hour, Versed drip at 6 mg an hour, propofol at 55 mcg/kg/min, and fentanyl at 1.5 mcg/kg/h. Tube feeds are on hold. Will also ask for a PICC line, from interventional radiology. Currently, white count 13.4, globin 12, hematocrit 37.4, and platelet count 230,000. Sodium 136, potassium 4.1, chlorides 100, CO2 42, BUN 19, creatinine 0.30. Calcium is 8.1. Glucose is 128. Sputum, and bronchoscopy washings, does show evidence of Rimma albicans. Chest x-ray shows no definite focal consolidations. Progress note dated August 24, 2023. 52-year-old female admitted on August 09. She was admitted with a diagnosis of COPD exacerbation, and was intubated on August 12. She remains on the ventilator. The patient underwent a tracheostomy and PEG tube placement yesterday. She will have a PICC line placed today, i.e. August 23. Current ventilator settings include volume assist-control, rate 18, tidal volume 350, FiO2 35%, PEEP of 5. Blood gases show pO2 of 76, pCO2 of 63, pH is 7.41. The patient continues on Versed at 4 mg an hour, saline at 75 cc an hour, propofol at 40 mcg/kg/min, and fentanyl at 1.5 mcg/kg/h. Current white count 15, hemoglobin 12.2, hematocrit 37.5, and platelet count was normal. Sodium 136, potassium 4.2, chlorides 102, CO2 34, BUN 26, and creatinine 0.28. Glucose is 111. Albumin is 2.6 calcium 8.0. Chest x-ray is largely unchanged. Progress note dated August 25, 2023. 52-year-old female admitted on August 09, with a diagnosis of COPD exacerbation. The patient was intubated on August 12, for respiratory failure. The patient had a tracheostomy tube placed and PEG tube placed, on August 22. She remains on the mechanical ventilator. She is on volume assist-control, rate 18, tidal volume 350, FiO2 35%, PEEP of 5. Blood gases show pO2 of 69, pCO2 of 56, pH is 7.45. The patient is getting saline at 75 cc an hour, Cleveprex is currently off. The patient is also receiving propofol at 50 mcg/kg/min, and fentanyl at 2 mcg/kg/h. In addition, the patient is receiving Versed at 5 mg an hour, and vital, at goal, which is 33 cc an hour. White count is 16.9, hemoglobin 13.7, hematocrit 43, platelet count 233,000. Sodium 136, potassium 4, chlorides 100, CO2 37, BUN 24, creatinine 0.27. Glucose is 91. Calcium is 8. Microbiologic sampling is revealing evidence of Rimma albicans, in sputum, and bronchial washings. The patient's chest x-ray is mostly unchanged. Chronic changes are noted bilaterally. Progress note dated August 26, 2023. The patient is seen today in room 253. She remains on the mechanical ventilator. She is on volume assist-control, rate 18, tidal volume 350, FiO2 35%, PEEP of 5. Blood gases show pO2 74, pCO2 57, pH is 7.46. He is getting saline at 75 cc an hour, she has been on and off of Cleviprex. Currently, Versed is off. The patient continues on fentanyl at 2 mcg/kg/h, and vital AF at 33 cc an hour, which is goal. In addition, the patient's Solu-Medrol was converted to prednisone 40 mg a day. We will add Dilaudid, increase the Ativan frequency, and the patient continues on her antifungal, i.e. Eraxis. White count is 17.7, hemoglobin 12.9, hematocrit 41.4, and platelet count 238,000. Sodium 135, potassium 4, chloride 99, CO2 38, BUN 21, and creatinine 0.25. Magnesium is 2.4. Calcium 7.7. Glucose 148. The patient's chest x-ray is largely unchanged. Progress note dated August 27, 2023. The patient is again seen today in the intensive care unit, room 253. She remains on the volume assist-control mode, rate 18, tidal volume 350, FiO2 35%, PEEP of 5. Blood gases show pO2 79, pCO2 of 60, pH 7.43. The patient is getting saline at 75 cc an hour, propofol at 50 mcg/kg/min, and vital AF at goal, which is 33 cc an hour. White count 14.3, hemoglobin 12.4, hematocrit 39.4, and platelet count normal. Sodium 136, potassium 3.8, chlorides 100, CO2 36, BUN 19, and creatinine 0.33. Glucose is 106. Microbiologic sampling has always been negative, save for Rimma albicans. The patient does continue on a Eraxis. The patient's chest x-ray is largely unchanged. Objective - Vital Signs Vital signs: Vital Signs Temp 98.4 F 08/27/23 08:00 Pulse 102 H 08/27/23 11:26 Resp 18 08/27/23 11:00 BP 100/62 08/27/23 11:00 Pulse Ox 99 08/27/23 11:00 FiO2 35 08/27/23 11:12 Intake & Output 08/26/23 08/27/23 08/27/23 18:59 06:59 18:59 Intake Total 0016.638 4337.063 700.297 Output Total 975 1165 380 Balance 981.259 462.063 320.297 Weight 76.1 kg Intake: IV 936 861 315 Normal Saline Pressure 36 36 15 Bag Sodium Chloride 0.9% 1, 900 825 300 000 ml @ 75 mls/hr IV . [id number] [facility] Rx#:[id number] Intake, IV Titration 454.259 280.063 173.297 Amount Anidulafungin 100 mg In 100 Sodium Chloride 0.9% 100 ml @ 84 mls/hr IVPB DAILY @1600 [facility] Rx#:[id number] Clevidipine Butyrate 25 38.800 mg In Empty Bag 1 bag @ 1 MG/HR 2 mls/hr IV .Q24H [facility] Rx#:[id number] Potassium Chloride 10 meq 100 In Water For Injection 1 100ml.bag @ 100 mls/hr IVPB Q1H [facility] Rx#: [id number] fentaNYL (PF). 1,000 mcg 116.076 59.883 In Sodium Chloride 0.9% 80 ml @ 0.5 MCG/KG/HR 3. 005 mls/hr IV .Q24H [facility] Rx#:[id number] propofoL 1,000 mg In 199.383 220.180 73.297 Empty Bag 1 bag @ 15 MCG/ KG/MIN 5.715 mls/hr IV . [id number] [facility] Rx#:[id number] Tube Feeding 396 396 132 Other 170 90 80 Output: Urine 975 1165 380 Other: Voiding Method Indwelling Catheter Indwelling Catheter Indwelling Catheter ABP, PAP, CO, CI - Last Documented Arterial Blood Pressure 135/60 - Exam No acute distress, sedated, with an midline tracheostomy tube. HEENT examination is grossly unremarkable. Neck supple. Full range of motion. No adenopathy thyromegaly or neck vein distention. Cardiovascular examination reveals regular rhythm rate. S1-S2 normal. No S3 or S4. No discernible murmur noted. Heart sounds are distant. Heart rate 88 bpm. Lungs reveal scattered bilateral rhonchi. No wheezes or crackles. Breath sounds equal. Saturations are 98 % Abdomen soft, with bowel sounds. No masses or tenderness. PEG tube is noted. Extremities are intact. No cyanosis clubbing or edema. Skin is without rash or lesion. Neurologic examination cannot be adequately assessed at this time. - Labs CBC & Chem 7: 08/27/23 04:03 08/27/23 04:03 Labs: Abnormal Lab Results - Last 24 Hours (Table) 08/27/23 08/27/23 08/27/23 Range/Units 04:03 04:03 05:11 WBC 14.3 H (3.8-10.6) k/uL Neutrophils # 12.0 H (1.3-7.7) k/uL ABG pCO2 60 H (35-45) mmHg ABG pO2 79 L (83-108) mmHg ABG HCO3 40 H* (21-25) mmol/L ABG Total CO2 41 H (19-24) mmol/L Sodium 136 L (137-145) mmol/L Carbon Dioxide 36 H (22-30) mmol/L BUN 19 H (7-17) mg/dL Creatinine 0.33 L (0.52-1.04) mg/dL POC Glucose (mg/dL) (70-110) mg/dL Calcium 7.4 L (8.4-10.2) mg/dL 08/27/23 08/27/23 Range/Units 06:55 11:36 WBC (3.8-10.6) k/uL Neutrophils # (1.3-7.7) k/uL ABG pCO2 (35-45) mmHg ABG pO2 (83-108) mmHg ABG HCO3 (21-25) mmol/L ABG Total CO2 (19-24) mmol/L Sodium (137-145) mmol/L Carbon Dioxide (22-30) mmol/L BUN (7-17) mg/dL Creatinine (0.52-1.04) mg/dL POC Glucose (mg/dL) 60 L 115 H (70-110) mg/dL Calcium (8.4-10.2) mg/dL Assessment and Plan Assessment: Acute hypoxemic respiratory failure, secondary to COPD exacerbation, status post intubation and mechanical ventilation on August 13, 2023. S/P tracheostomy and PEG tube placement, August 23, 2023. Advanced COPD. Left upper lobe pulmonary nodule, 9 mm. History of HIV. Status post bronchoscopy and BAL, August 12, nondiagnostic. Sputum samples, positive for Rimma albicans. Plan: Plan dated August 21, 2023. The patient has not really made any headway towards weaning and extubation. She was intubated on August 12. She has not been intubated for 9 days. Will ask surgery for tracheostomy and PEG tube placement. Patient continues on propofol, fentanyl, and Versed. She is receiving tube feedings. Blood gases have been reviewed. Labs, x-rays, and all medications are reviewed. Prognosis is guarded. We will continue to follow make recommendations along the way. Plan dated August 22, 2023. The patient's tube feeds are on hold, for anticipated tracheostomy tube placement and PEG tube placement today. The patient has a very high peak airway pressure 37 cm of water, and a plateau pressure of 20. The large peak to plateau difference, suggest increased airway resistance. Labs, x-rays, and medications are reviewed. The patient is maintained on propofol, fentanyl, and Versed. Blood gases show pO2 of 80, pCO2 of 67, and a pH of 7.42. Labs, x- rays, medications are reviewed. Prognosis is certainly guarded. We will continue to follow the patient, and make recommendations along the way. Plan dated August 23, 2023. The patient is supposed to go to the operating room today, for tracheostomy tube, and feeding tube/PEG tube. In addition, we will ask interventional radiology to place a PICC line on this patient. The patient continues on saline at 75 cc an hour, Versed at 6 mg an hour, propofol at 55 mcg/kg/min, and fentanyl at 1.5 mcg/kg/h. In addition, blood gases show pO2 of 91, pCO2 of 63, and a pH of 7.44. Labs, x-rays, and medications are reviewed. The patient's era prognosis remains guarded. We will continue to follow the patient, and make recommendations along the way. Plan dated August 24, 2023. The patient had a tracheostomy and PEG tube placed yesterday. The patient will have a PICC line placed today. The patient continues on the ventilator. Gases show a pO2 of 76, pCO2 of 63, pH is 7.41. The patient continues on Versed 4 mg an hour, saline at 75 cc an hour, propofol at 40 mcg/kg/min, and fentanyl at 1.5 mcg/kg/h. Labs, x-rays, and medications are reviewed. We will continue to follow the patient, make recommendations along the way. Prognosis is certainly very guarded. Plan dated August 25, 2023. The patient continues on appropriate antibiotics. In addition, we will add some Ativan 1 mg every 6 hours, down the PEG tube, to see if we can get the patient off of the Versed drip. Labs, x-rays, and medications are reviewed. Blood g ases are reasonable with a pO2 of 69, pCO2 of 56, pH is 7.45. The patient continues on propofol, fentanyl, and Versed. The patient is receiving tube feedings at goal. The patient is also getting saline at 75 cc an hour. The patient's overall prognosis remains very guarded. We will continue to follow and make recommendations along the way. Plan dated August 26, 2023. The patient is seen today in room 253. The patient continues on the mechanical ventilator. In addition, she continues on saline at 75 cc an hour. Throughout the night, she has been on and off of Cleviprex. Currently, the Versed has been weaned off. She continues on fentanyl at 2 mcg/kg/h. She is also getting tube feedings at goal, which is 33 cc an hour. We will add Dilaudid to the regimen, and increase the frequency of Ativan. In addition, we will convert the Solu- Medrol to prednisone. The patient does continue on Eraxis. Labs, x-rays, and medications are reviewed. The patient's overall prognosis remains very guarded. We will continue to follow and make recommendations where appropriate. Plan dated August 27, 2023. The patient is seen today in room 253. The patient continues on mechanical ventilator. The patient continues on propofol at 50 mcg/kg/min. Will start Seroquel 50 mg 3 times a day. She continues on Eraxis as per infectious diseases. We will check a chest x-ray today. In addition to the propofol, she continues on Dilaudid, and Ativan. We have been able to wean her off the Versed , and the fentanyl. She continues on tube feedings at 33 cc an hour, which is goal. Labs x-rays, and medications are reviewed. We will continue to follow make recommendations were appropriate. Prognosis is certainly guarded. Time with Patient: Greater than 30
--- NOTE | 2023-08-27 12:23 | P.PN ---
Progress Note - Text Progress Note Date: 08/27/23 patient remained stable in the ICU. Her tracheostomy site is clean dry tach. She'll continue receive supportive care.
--- NOTE | 2023-08-27 13:41 | P.PN ---
Subjective Progress Note Date: 08/27/23 52-year-old female who initially came into the hospital due to difficulty breathing and cough. Patient was found to have significant COPD exacerbation and required intubation. She continues in the intensive care unit she is on the mechanical ventilator with an FiO2 of 35% with a PEEP of 5. She is currently on an IV Versed and IV fentanyl infusion as well as IV Solu-Medrol. She is currently sedated with propofol. patient is maintained on Biktarvy also for history of HIV. On enteral feedings. Chest x-ray today shows improved aeration of the lung bases. Labs today reveal a white blood cell count of 11.6, sodium 133, BUN of 23, creatinine of 0.29. Her glucose is in the 120s to 130s range. CO2 of 40. Sputum culture was found to be positive for Rimma. She is being considered for trach and PEG tube placement. 08/22/2023 Patient evaluated in follow up today in the ICU. Remains on the mechanical ventilator with FiO2 of 35% and PEEP of 5. Patient is scheduled for PEG/Trach placement today. Remains on IV fentanyl, IV versed, IV propofol, IV solumedrol. Patient is being hydrated with normal saline. Chest xray today shows no focal infiltrates. 08/23/2023 Patient remains in the intensive care unit. Patient is currently on the mechanical ventilator. Patient underwent trach and PEG tube placement today. Remains on IV fentanyl, IV versed, IV propofol, IV solumedrol. Patient remains on Biktarvy. Unable to be considered for rehab or select specialty at this time due to the cost of the Biktarvy medication which will need to be continued at this time. White blood cell count today 13.4, sodium 136, BUN 19, creatinine 0.30. CO2 level 42. Blood glucose 170. 08/24/2023 Patient is evaluated today in the ICU. Patient is postoperative trach and peg tube placement. Remains on mechanical ventilator with FiO2 of 35% and PEEP of 5. Currently on IV fentanyl, IV versed, IV propofol and remains on high dose IV solumedrol. Sputum culture was positive for rimma patient is having worsening WBC today is 15k and ID has recommended to start the patient on IV anidulafungin. Patient is being hydrated with normal saline running at 75 mls/hr. Tube feedings were placed on hold for the PEG tube placement and are to be resumed today. 08/25/2023 Patient evaluated today in the ICU, patient remains on the mechanical ventilator. White blood cell count up to 16.9. Continues on IV anidulafungin. Chest xray today reveals chronic changes without acute cardiopulmonary disease. Patient on IV precedex, IV fentanyl, IV versed, IV propofol. Remains on normal saline. Continues on high dose IV solumedrol. Resumed on enteral feedings. 08/26/2023 Patient seen in follow-up continues to be in the ICU with multiple medical consultations following. Patient remains on mechanical ventilation with an FiO2 of 35%. Patient is currently weaned off Cleviprex and continues on fentanyl. Patient also maintained on antifungal with infectious disease following. Tube feedings at goal and patient is tolerating. Patient is afebrile although white count continues to remain elevated, possibly steroid effect and patient is being transition to oral prednisone. Continue with breathing inhalational treatments and follow-up on chest x-ray. 08/27/23 : Patient seen and evaluated in medical ICU vitals reviewed, blood work reviewed WBC 14.3, arterial blood gas reviewed pH 7.43/pCO2 60/pO2 79/serum chemistry sodium 136 BUN 19 creatinine 0.33 calcium of 7.4 PHYSICAL EXAMINATION: GENERAL: The patient is alert and oriented x 0, Sedated. Ill-appearing, trach in place, on vent HEENT: Normocephalic, atraumatic. CARDIOVASCULAR: S1 and S2 present. No murmurs, rubs, or gallops. PULMONARY: Diminished breath sounds bilaterally with scattered rhonchi noted.. ABDOMEN: Soft, nontender, nondistended, normoactive bowel sounds. No palpable organomegaly. MUSCULOSKELETAL: No joint swelling or deformity. EXTREMITIES: No cyanosis, clubbing, mild generalized edema noted NEUROLOGICAL: Patient is sedated Assessment and Plan -Acute exacerbation of chronic COPD -Acute hypoxemic hypercapnic respiratory failure requiring intubation on 08/12 status post PEG tube and tracheostomy placement -Rimma albicans in the sputum -Left upper lobe nodule -History of HIV currently on Biktarvy. Viral count and CD4 counts are not known. No previous history of a persistent infections. The patient has not been receiving any form of antibiotic treatments such as Bactrim. Her infectious disease doctor is Dr. Salguero. The CD4 count is at 81 -Moderate protein calorie malnutrition -Chronic nicotine use * Continue medical management in ICU, seen by pulmonary medicine, infectious disease * In regards to hypoxemic hypercapnic respiratory failure continue patient on mechanical ventilation, s/p PEG tube placement, s/p trach, continue sedation with fentanyl and propofol * In regards to malnutrition continue patient on enteral tube feeding * Wean vent as tolerated, tube feeds at goal managed by dietitian * In regards to HIV continue current treatment seen by infectious disease * Prognosis remains guarded Objective - Vital Signs Vital signs: Vital Signs Temp 98.4 F 08/27/23 08:00 Pulse 90 08/27/23 09:00 Resp 18 08/27/23 09:00 BP 142/80 08/27/23 09:00 Pulse Ox 98 08/27/23 09:00 FiO2 35 08/27/23 08:00 Intake & Output 08/26/23 08/27/23 08/27/23 18:59 06:59 18:59 Intake Total 5964.297 4579.063 331.675 Output Total 975 1165 100 Balance 981.259 462.063 231.675 Weight 76.1 kg Intake: IV 936 861 81 Normal Saline Pressure 36 36 6 Bag Sodium Chloride 0.9% 1, 900 825 75 000 ml @ 75 mls/hr IV . [id number] [facility] Rx#:[id number] Intake, IV Titration 454.259 280.063 157.675 Amount Anidulafungin 100 mg In 100 Sodium Chloride 0.9% 100 ml @ 84 mls/hr IVPB DAILY @1600 [facility] Rx#:[id number] Clevidipine Butyrate 25 38.800 mg In Empty Bag 1 bag @ 1 MG/HR 2 mls/hr IV .Q24H [facility] Rx#:[id number] Potassium Chloride 10 meq 100 In Water For Injection 1 100ml.bag @ 100 mls/hr IVPB Q1H [facility] Rx#: [id number] fentaNYL (PF). 1,000 mcg 116.076 59.883 In Sodium Chloride 0.9% 80 ml @ 0.5 MCG/KG/HR 3. 005 mls/hr IV .Q24H [facility] Rx#:[id number] propofoL 1,000 mg In 199.383 220.180 57.675 Empty Bag 1 bag @ 15 MCG/ KG/MIN 5.715 mls/hr IV . [id number] [facility] Rx#:[id number] Tube Feeding 396 396 33 Other 170 90 60 Output: Urine 975 1165 100 Other: Voiding Method Indwelling Catheter Indwelling Catheter Indwelling Catheter ABP, PAP, CO, CI - Last Documented Arterial Blood Pressure 131/60 - Labs CBC & Chem 7: 08/27/23 04:03 08/27/23 04:03 Labs: Abnormal Lab Results - Last 24 Hours (Table) 08/26/23 08/27/23 08/27/23 Range/Units 11:37 04:03 04:03 WBC 14.3 H (3.8-10.6) k/uL Neutrophils # 12.0 H (1.3-7.7) k/uL ABG pCO2 (35-45) mmHg ABG pO2 (83-108) mmHg ABG HCO3 (21-25) mmol/L ABG Total CO2 (19-24) mmol/L Sodium 136 L (137-145) mmol/L Carbon Dioxide 36 H (22-30) mmol/L BUN 19 H (7-17) mg/dL Creatinine 0.33 L (0.52-1.04) mg/dL POC Glucose (mg/dL) 148 H (70-110) mg/dL Calcium 7.4 L (8.4-10.2) mg/dL 08/27/23 08/27/23 Range/Units 05:11 06:55 WBC (3.8-10.6) k/uL Neutrophils # (1.3-7.7) k/uL ABG pCO2 60 H (35-45) mmHg ABG pO2 79 L (83-108) mmHg ABG HCO3 40 H* (21-25) mmol/L ABG Total CO2 41 H (19-24) mmol/L Sodium (137-145) mmol/L Carbon Dioxide (22-30) mmol/L BUN (7-17) mg/dL Creatinine (0.52-1.04) mg/dL POC Glucose (mg/dL) 60 L (70-110) mg/dL Calcium (8.4-10.2) mg/dL
[2023-08-27 18:17] LABS: Glucose,Whole Blood 100 mg/dL (70-110)
[2023-08-28 00:59] LABS: Glucose,Whole Blood 64 mg/dL (70-110)
[2023-08-28 01:16] LABS: Glucose,Whole Blood 77 mg/dL (70-110)
[2023-08-28 03:33] LABS: Glucose,Whole Blood 98 mg/dL (70-110)
[2023-08-28 04:29] LABS: HGB 11.7 gm/dL (11.4-16.0); MCH 32.4 pg (25.0-35.0); MCHC 32.5 g/dL (31.0-37.0); MCV 99.5 fL (80.0-100.0); Mean Platelet Volume 7.9; Platelet Count 190 k/uL (150-450); RBC 3.62 m/uL (3.80-5.40); RDW 13.8 % (11.5-15.5); WBC 12.6 k/uL (3.8-10.6)
[2023-08-28 04:45] LABS: ABG Base Excess 17.6 mmol/L; ABG Oxygen Saturation 98.2 % (94-97); ABG PCO2 56 mmHg (35-45); ABG PH 7.48 (7.35-7.45); ABG PO2 93 mmHg (83-108); ABG TCO2 43 mmol/L (19-24)
[2023-08-28 04:48] LABS: ABG HCO3 41 mmol/L (21-25); Allen Test Performed? no
[2023-08-28 04:58] LABS: African American GFR (CKD) >90 (>60 ml/min/1.73 sqM); Anion Gap -3 mmol/L; Blood Urea Nitrogen 15 mg/dL (7-17); Calcium 7.4 mg/dL (8.4-10.2); Carbon Dioxide 39 mmol/L (22-30); Chloride 99 mmol/L (98-107); Glucose 93 mg/dL (74-99); Non-African American GFR(CKD) >90 (>60 ml/min/1.73 sqM); Potassium 3.8 mmol/L (3.5-5.1); Sodium 135 mmol/L (137-145)
[2023-08-28 06:16] LABS: Glucose,Whole Blood 71 mg/dL (70-110)
[2023-08-28] MEDS: POTASSIUM CHLORIDE 10 MEQ in WATER FOR INJECTION 1 100ML.BAG IVPB SCH (06:36)
[2023-08-28 06:57] LABS: Glucose,Whole Blood 77 mg/dL (70-110)
--- NOTE | 2023-08-28 07:17 | XR ---
EXAMINATION TYPE: XR chest 1V portable DATE OF EXAM: 08/28/2023 4:59 AM CLINICAL INDICATION:Female, 52 years old with history of trach tube placement; COMPARISON: Chest radiograph from one day prior. TECHNIQUE: XR chest 1V portable Frontal view of the chest. FINDINGS: Lungs/Pleura: There is no evidence of pleural effusion, focal consolidation, or pneumothorax. Pulmonary vascularity: Unremarkable. Heart/mediastinum: Cardiomediastinal silhouette is unremarkable. Musculoskeletal: No acute osseous pathology. Other findings: None Lines/Tubes: Tracheostomy cannula tip projecting over the trachea. Right-sided PICC line with distal tip at the cavoatrial junction. IMPRESSION: No acute cardiopulmonary disease/process.
--- NOTE | 2023-08-28 07:55 | P.PN ---
Subjective Progress Note Date: 08/27/23 Principal diagnosis: Reason for follow-up is HIV and possible pneumonia Patient is a 52-year-old female with a past medical history significant for HIV on Biktarvy, also with a history of COPD presenting to the hospital for evaluation of increasing shortness of breath patient did have worsening respiratory status got intubated, patient did have a CT angiogram of the chest that was negative for PE did shows a lung nodule did not mention any infiltrate or consolidation.Patient is status post tracheostomy completed on 08/23/2023 On today's evaluation that is 08/27/2023, patient has been afebrile, patient is breathing comfortably and is currently on the vent through the trach FiO2 35% no significant purulent secretions through the ET patient is hemodynamically stable not requiring pressor support and no diarrhea has been reported. Patient white count is trending down to 14.3 creatinine 0.33 Objective - Vital Signs Vital signs: Vital Signs Temp 98.6 F 08/27/23 12:00 Pulse 101 H 08/27/23 14:00 Resp 18 08/27/23 14:00 BP 86/51 08/27/23 14:00 Pulse Ox 100 08/27/23 14:00 FiO2 35 08/27/23 12:00 Intake & Output 08/26/23 08/27/23 08/27/23 18:59 06:59 18:59 Intake Total 7310.621 4855.063 1124.747 Output Total 975 1165 1430 Balance 981.259 462.063 -305.253 Weight 76.1 kg Intake: IV 936 861 549 Normal Saline Pressure 36 36 24 Bag Sodium Chloride 0.9% 1, 900 825 525 000 ml @ 75 mls/hr IV . [id number] [facility] Rx#:[id number] Intake, IV Titration 454.259 280.063 214.747 Amount Anidulafungin 100 mg In 100 Sodium Chloride 0.9% 100 ml @ 84 mls/hr IVPB DAILY @1600 [facility] Rx#:[id number] Clevidipine Butyrate 25 38.800 mg In Empty Bag 1 bag @ 1 MG/HR 2 mls/hr IV .Q24H [facility] Rx#:[id number] Potassium Chloride 10 meq 100 In Water For Injection 1 100ml.bag @ 100 mls/hr IVPB Q1H [facility] Rx#: [id number] fentaNYL (PF). 1,000 mcg 116.076 59.883 In Sodium Chloride 0.9% 80 ml @ 0.5 MCG/KG/HR 3. 005 mls/hr IV .Q24H [facility] Rx#:[id number] propofoL 1,000 mg In 199.383 220.180 114.747 Empty Bag 1 bag @ 15 MCG/ KG/MIN 5.715 mls/hr IV . [id number] [facility] Rx#:[id number] Tube Feeding 396 396 231 Other 170 90 130 Output: Urine 975 1165 1430 Other: Voiding Method Indwelling Catheter Indwelling Catheter Indwelling Catheter ABP, PAP, CO, CI - Last Documented Arterial Blood Pressure 112/51 - Exam GENERAL DESCRIPTION: Middle-aged female intubated on the vent through the trach RESPIRATORY SYSTEM: Unlabored breathing , decreased breath sounds at bases HEART: S1 S2 regular rate and rhythm , ABDOMEN: Soft , no tenderness EXTREMITIES: No edema feet - Labs CBC & Chem 7: 08/28/23 04:10 08/28/23 04:10 Labs: Abnormal Lab Results - Last 24 Hours (Table) 08/27/23 08/27/23 08/27/23 Range/Units 04:03 04:03 05:11 WBC 14.3 H (3.8-10.6) k/uL Neutrophils # 12.0 H (1.3-7.7) k/uL ABG pCO2 60 H (35-45) mmHg ABG pO2 79 L (83-108) mmHg ABG HCO3 40 H* (21-25) mmol/L ABG Total CO2 41 H (19-24) mmol/L Sodium 136 L (137-145) mmol/L Carbon Dioxide 36 H (22-30) mmol/L BUN 19 H (7-17) mg/dL Creatinine 0.33 L (0.52-1.04) mg/dL POC Glucose (mg/dL) (70-110) mg/dL Calcium 7.4 L (8.4-10.2) mg/dL 08/27/23 08/27/23 Range/Units 06:55 11:36 WBC (3.8-10.6) k/uL Neutrophils # (1.3-7.7) k/uL ABG pCO2 (35-45) mmHg ABG pO2 (83-108) mmHg ABG HCO3 (21-25) mmol/L ABG Total CO2 (19-24) mmol/L Sodium (137-145) mmol/L Carbon Dioxide (22-30) mmol/L BUN (7-17) mg/dL Creatinine (0.52-1.04) mg/dL POC Glucose (mg/dL) 60 L 115 H (70-110) mg/dL Calcium (8.4-10.2) mg/dL Assessment and Plan (1) Acute respiratory failure Current Visit: Yes Status: Acute Code(s): J96.00 - ACUTE RESPIRATORY FAILURE, UNSP W HYPOXIA OR HYPERCAPNIA SNOMED Code(s): 93800199 (2) HIV disease Current Visit: No Status: Acute Code(s): B20 - HUMAN IMMUNODEFICIENCY VIRUS [HIV] DISEASE SNOMED Code(s): 07677403 Plan: 1patient presented to hospital with increasing shortness of breath which is likely multifactorial in this patient who did have a history of COPD and likely COPD is a patient with a tracheobronchitis underlying pneumonia less likely but not entirely excluded 2-patient did have a CT angiogram of the chest that was negative for PE did not show any evidence of pneumonia or interstitial infiltrate 3-patient did have a penicillin allergy that will limit the number of antibiotics safe to use 4-patient to continue with Biktarvy for HIV 5-patient sputum is growing Rimma which is likely colonization however the patient did have worsening of the white count could be component of oropharyngeal candidiasis, patient white count is trending down with addition of Eraxis to continue and will monitor clinical course closely Dictation was produced using [employer] dictation software. please excuse any grammatical, word or spelling errors. Time with Patient: Less than 30
[2023-08-28] MEDS: DEXMEDETOMIDINE/0.9% NACL(PMX) 400 MCG in EMPTY BAG 1 BAG IV SCH (09:32)
[2023-08-28 12:03] LABS: Glucose,Whole Blood 83 mg/dL (70-110)
--- NOTE | 2023-08-28 12:10 | P.PN ---
Subjective Progress Note Date: 08/28/23 52-year-old female who initially came into the hospital due to difficulty breathing and cough. Patient was found to have significant COPD exacerbation and required intubation. She continues in the intensive care unit she is on the mechanical ventilator with an FiO2 of 35% with a PEEP of 5. She is currently on an IV Versed and IV fentanyl infusion as well as IV Solu-Medrol. She is currently sedated with propofol. patient is maintained on Biktarvy also for history of HIV. On enteral feedings. Chest x-ray today shows improved aeration of the lung bases. Labs today reveal a white blood cell count of 11.6, sodium 133, BUN of 23, creatinine of 0.29. Her glucose is in the 120s to 130s range. CO2 of 40. Sputum culture was found to be positive for Rimma. She is being considered for trach and PEG tube placement. 08/22/2023 Patient evaluated in follow up today in the ICU. Remains on the mechanical ventilator with FiO2 of 35% and PEEP of 5. Patient is scheduled for PEG/Trach placement today. Remains on IV fentanyl, IV versed, IV propofol, IV solumedrol. Patient is being hydrated with normal saline. Chest xray today shows no focal infiltrates. 08/23/2023 Patient remains in the intensive care unit. Patient is currently on the mechanical ventilator. Patient underwent trach and PEG tube placement today. Remains on IV fentanyl, IV versed, IV propofol, IV solumedrol. Patient remains on Biktarvy. Unable to be considered for rehab or select specialty at this time due to the cost of the Biktarvy medication which will need to be continued at this time. White blood cell count today 13.4, sodium 136, BUN 19, creatinine 0.30. CO2 level 42. Blood glucose 170. 08/24/2023 Patient is evaluated today in the ICU. Patient is postoperative trach and peg tube placement. Remains on mechanical ventilator with FiO2 of 35% and PEEP of 5. Currently on IV fentanyl, IV versed, IV propofol and remains on high dose IV solumedrol. Sputum culture was positive for rimma patient is having worsening WBC today is 15k and ID has recommended to start the patient on IV anidulafungin. Patient is being hydrated with normal saline running at 75 mls/hr. Tube feedings were placed on hold for the PEG tube placement and are to be resumed today. 08/25/2023 Patient evaluated today in the ICU, patient remains on the mechanical ventilator. White blood cell count up to 16.9. Continues on IV anidulafungin. Chest xray today reveals chronic changes without acute cardiopulmonary disease. Patient on IV precedex, IV fentanyl, IV versed, IV propofol. Remains on normal saline. Continues on high dose IV solumedrol. Resumed on enteral feedings. 08/26/2023 Patient seen in follow-up continues to be in the ICU with multiple medical consultations following. Patient remains on mechanical ventilation with an FiO2 of 35%. Patient is currently weaned off Cleviprex and continues on fentanyl. Patient also maintained on antifungal with infectious disease following. Tube feedings at goal and patient is tolerating. Patient is afebrile although white count continues to remain elevated, possibly steroid effect and patient is being transition to oral prednisone. Continue with breathing inhalational treatments and follow-up on chest x-ray. 08/27/23 : Patient seen and evaluated in medical ICU vitals reviewed, blood work reviewed WBC 14.3, arterial blood gas reviewed pH 7.43/pCO2 60/pO2 79/serum chemistry sodium 136 BUN 19 creatinine 0.33 calcium of 7.4 08/28/23: Patient seen and evaluated at bedside, patient remains on ventilator through trach, vitals reviewed, FiO2 35% and arterial blood gas reviewed, serum chemistry showed sodium 135 creatinine 0.17 calcium of 7.4 blood glucose of 77, continue antifungal, infectious disease following. Patient transition to Precedex, propofol weaned off PHYSICAL EXAMINATION: GENERAL: The patient is alert and oriented x 0, Sedated. Ill-appearing, trach in place, on vent HEENT: Normocephalic, atraumatic. CARDIOVASCULAR: S1 and S2 present. No murmurs, rubs, or gallops. PULMONARY: Diminished breath sounds bilaterally with scattered rhonchi noted.. ABDOMEN: Soft, nontender, nondistended, normoactive bowel sounds. No palpable organomegaly. MUSCULOSKELETAL: No joint swelling or deformity. EXTREMITIES: No cyanosis, clubbing, mild generalized edema noted NEUROLOGICAL: Patient is sedated Assessment and Plan * Acute hypoxemic hypercapnic respiratory failure requiring intubation on 08/12 status post PEG tube and tracheostomy placement * Acute exacerbation of COPD * S/p tracheostomy * Multifocal pneumonia, with Rimma albicans * Left upper lobe nodule * History of HIV currently on Biktarvy. Viral count and CD4 counts are not known. No previous history of a persistent infections. The patient has not been receiving any form of antibiotic treatments such as Bactrim. Her infectious disease doctor is Dr. Salguero. The CD4 count is at 81 * Moderate protein calorie malnutrition * Chronic nicotine use * Continue medical management in ICU, seen by pulmonary medicine, infectious disease * In regards to hypoxemic hypercapnic respiratory failure continue patient on mechanical ventilation, s/p PEG tube placement, s/p trach, continue sedation, weaned off propofol, on Precedex * In regards to malnutrition continue patient on enteral tube feeding * Wean vent as tolerated, tube feeds at goal managed by dietitian * In regards to HIV continue current treatment seen by infectious disease * Prognosis remains guarded Objective - Vital Signs Vital signs: Vital Signs Temp 98.4 F 08/28/23 04:00 Pulse 109 H 08/28/23 08:21 Resp 18 08/28/23 07:00 BP 116/70 08/28/23 07:00 Pulse Ox 98 08/28/23 07:00 FiO2 35 08/28/23 07:52 Intake & Output 08/27/23 08/28/23 08/28/23 18:59 06:59 18:59 Intake Total 5790.944 9829.692 118.620 Output Total 2115 2290 175 Balance -354.784 -712.308 -56.380 Weight 78.2 kg Intake: IV 861 936 78 Normal Saline Pressure 36 36 3 Bag Sodium Chloride 0.9% 1, 825 900 75 000 ml @ 75 mls/hr IV . [id number] [facility] Rx#:[id number] Intake, IV Titration 356.216 155.692 7.620 Amount Anidulafungin 100 mg In 100 Sodium Chloride 0.9% 100 ml @ 84 mls/hr IVPB DAILY @1600 [facility] Rx#:[id number] Potassium Chloride 10 meq 100 In Water For Injection 1 100ml.bag @ 100 mls/hr IVPB Q1H [facility] Rx#: [id number] propofoL 1,000 mg In 156.216 155.692 7.620 Empty Bag 1 bag @ 15 MCG/ KG/MIN 5.715 mls/hr IV . [id number] [facility] Rx#:[id number] Tube Feeding 363 396 33 Other 180 90 Output: Urine 2110 2290 175 Other: Voiding Method Indwelling Catheter Indwelling Catheter ABP, PAP, CO, CI - Last Documented Arterial Blood Pressure 145/68 - Labs CBC & Chem 7: 08/28/23 04:10 08/28/23 04:10 Labs: Abnormal Lab Results - Last 24 Hours (Table) 08/27/23 08/28/23 08/28/23 Range/Units 11:36 00:57 04:10 WBC 12.6 H (3.8-10.6) k/uL RBC 3.62 L (3.80-5.40) m/uL ABG pH (7.35-7.45) ABG pCO2 (35-45) mmHg ABG HCO3 (21-25) mmol/L ABG Total CO2 (19-24) mmol/L ABG O2 Saturation (94-97) % Sodium (137-145) mmol/L Carbon Dioxide (22-30) mmol/L Creatinine (0.52-1.04) mg/dL POC Glucose (mg/dL) 115 H 64 L (70-110) mg/dL Calcium (8.4-10.2) mg/dL 08/28/23 08/28/23 Range/Units 04:10 04:42 WBC (3.8-10.6) k/uL RBC (3.80-5.40) m/uL ABG pH 7.48 H (7.35-7.45) ABG pCO2 56 H (35-45) mmHg ABG HCO3 41 H* (21-25) mmol/L ABG Total CO2 43 H (19-24) mmol/L ABG O2 Saturation 98.2 H (94-97) % Sodium 135 L (137-145) mmol/L Carbon Dioxide 39 H (22-30) mmol/L Creatinine 0.17 L (0.52-1.04) mg/dL POC Glucose (mg/dL) (70-110) mg/dL Calcium 7.4 L (8.4-10.2) mg/dL
--- NOTE | 2023-08-28 12:21 | P.PN ---
Subjective Progress Note Date: 08/28/23 CHIEF COMPLAINT: Respiratory failure HISTORY OF PRESENT ILLNESS: Patient remains in the ICU on mechanical ventilation. She is status post tracheostomy and PEG tube placement. Patient is tolerating tube feeds. Tube feeds are at 28 mL/h. PHYSICAL EXAM: VITAL SIGNS: Reviewed. GENERAL: no acute distress. HEENT: Trach site clean dry and intact ABDOMEN: Soft. Nondistended. Nontender. PEG tube site clean dry and intact NEUROLOGIC: Intubated and sedated ASSESSMENT: 1. Acute hypoxic respiratory failure with difficulty to wean from the vent 2. COPD exacerbation 3. Moderate protein calorie malnutrition 4. History of HIV PLAN: -Continue tube feeds. Titrate tube feeds per dietitian recommendations -Continue ICU management -Continue supportive care Physician [employer] note has been reviewed by physician. Signing provider agrees with the documented findings, assessment, and plan of care. Objective - Vital Signs Vital signs: Vital Signs Temp 98.7 F 08/28/23 12:00 Pulse 115 H 08/28/23 12:15 Resp 17 08/28/23 12:00 BP 101/54 08/28/23 12:00 Pulse Ox 99 08/28/23 12:00 FiO2 35 08/28/23 12:10 Intake & Output 08/27/23 08/28/23 08/28/23 18:59 06:59 18:59 Intake Total 3387.436 1242.692 825.787 Output Total 2115 2290 1975 Balance -354.784 -712.308 -1149.213 Weight 78.2 kg Intake: IV 861 936 568 Normal Saline Pressure 36 36 18 Bag Potassium Chloride 10 meq 100 In Water For Injection 1 100ml.bag @ 100 mls/hr IVPB Q1H [facility] Rx#: [id number] Sodium Chloride 0.9% 1, 825 900 450 000 ml @ 75 mls/hr IV . [id number] [facility] Rx#:[id number] Intake, IV Titration 356.216 155.692 14.787 Amount Anidulafungin 100 mg In 100 Sodium Chloride 0.9% 100 ml @ 84 mls/hr IVPB DAILY @1600 [facility] Rx#:[id number] Clevidipine Butyrate 25 7.167 mg In Empty Bag 1 bag @ 1 MG/HR 2 mls/hr IV .Q24H [facility] Rx#:[id number] Potassium Chloride 10 meq 100 In Water For Injection 1 100ml.bag @ 100 mls/hr IVPB Q1H [facility] Rx#: [id number] propofoL 1,000 mg In 156.216 155.692 7.620 Empty Bag 1 bag @ 15 MCG/ KG/MIN 5.715 mls/hr IV . [id number] [facility] Rx#:[id number] Tube Feeding 363 396 183 Other 180 90 60 Output: Urine 2115 2290 1975 Other: Voiding Method Indwelling Catheter Indwelling Catheter # Bowel Movements 1 ABP, PAP, CO, CI - Last Documented Arterial Blood Pressure 109/58 - Labs CBC & Chem 7: 08/28/23 04:10 08/28/23 04:10 Labs: Abnormal Lab Results - Last 24 Hours (Table) 08/28/23 08/28/23 08/28/23 Range/Units 00:57 04:10 04:10 WBC 12.6 H (3.8-10.6) k/uL RBC 3.62 L (3.80-5.40) m/uL ABG pH (7.35-7.45) ABG pCO2 (35-45) mmHg ABG HCO3 (21-25) mmol/L ABG Total CO2 (19-24) mmol/L ABG O2 Saturation (94-97) % Sodium 135 L (137-145) mmol/L Carbon Dioxide 39 H (22-30) mmol/L Creatinine 0.17 L (0.52-1.04) mg/dL POC Glucose (mg/dL) 64 L (70-110) mg/dL Calcium 7.4 L (8.4-10.2) mg/dL 08/28/23 Range/Units 04:42 WBC (3.8-10.6) k/uL RBC (3.80-5.40) m/uL ABG pH 7.48 H (7.35-7.45) ABG pCO2 56 H (35-45) mmHg ABG HCO3 41 H* (21-25) mmol/L ABG Total CO2 43 H (19-24) mmol/L ABG O2 Saturation 98.2 H (94-97) % Sodium (137-145) mmol/L Carbon Dioxide (22-30) mmol/L Creatinine (0.52-1.04) mg/dL POC Glucose (mg/dL) (70-110) mg/dL Calcium (8.4-10.2) mg/dL
--- NOTE | 2023-08-28 13:06 | P.PN ---
Subjective Progress Note Date: 08/28/23 On today's evaluation of 08/28/2023, the patient is being seen for a follow-up. This is a case of advanced COPD maintained on Trelegy Ellipta on outpatient basis along with HIV with low CD4 counts, presented to the hospital with respiratory failure multiple requiring intubation and mechanical ventilation. The patient is post prolonged ventilator dependent respiratory failure and the patient was given a tracheostomy tube that was inserted on 08/23/2023. Noted the patient was intubated on 08/13/2023. This morning, the patient is on propofol running at 50 mcg/kg/min and the patient will be given a sedation holiday. The patient is also normal sinus rate of 75 cc an hour. She is on assist-control mode at the rate of 18, tidal volume of 350, FiO2 is at 35% with a PEEP of 5. The chest x-ray from today is showing adequate positioning of the tracheostomy tube. The patient also has a right upper extremity PICC line catheter in place. No evidence of any cardiopulmonary abnormalities. No infiltrates or airspace disease. The patient remains on bronchodilators [id number] with DuoNedex updrafts. The patient remains on prednisone 40 mg p.o. daily as part of burst taper. The patient is on Lovenox for DVT prophylaxis. The patient is sitting PEG tube feeding and the patient has a vital AF at a rate of 33 cc an hour. Fluid balance is -1 L over the past 24 hours. No other significant events overnight. The blood gas from today shows a pH of 7.48 with a pCO2 of 56 and pO2 of 93. WBC count of 12.6 with a hemoglobin of 11.7, BUN is at 15 with a creatinine of 0.17 and sodium is at 135 and a potassium level of 3.8. Blood sugars at 83 from this morning. The bronchial wash was positive for Rimma and the patient is currently on Eraxis. Objective - Vital Signs Vital signs: Vital Signs Temp 98.4 F 08/28/23 04:00 Pulse 105 H 08/28/23 08:02 Resp 18 08/28/23 07:00 BP 116/70 08/28/23 07:00 Pulse Ox 98 08/28/23 07:00 FiO2 35 08/28/23 07:52 Intake & Output 04/28/24 04/29/24 04/29/24 18:59 06:59 18:59 Intake Total 6967.298 8008.692 118.620 Output Total 2115 2290 175 Balance -354.784 -712.308 -56.380 Weight 78.2 kg Intake: IV 861 936 78 Normal Saline Pressure 36 36 3 Bag Sodium Chloride 0.9% 1, 825 900 75 000 ml @ 75 mls/hr IV . [id number] [facility] Rx#:[id number] Intake, IV Titration 356.216 155.692 7.620 Amount Anidulafungin 100 mg In 100 Sodium Chloride 0.9% 100 ml @ 84 mls/hr IVPB DAILY @1600 [facility] Rx#:[id number] Potassium Chloride 10 meq 100 In Water For Injection 1 100ml.bag @ 100 mls/hr IVPB Q1H [facility] Rx#: [id number] propofoL 1,000 mg In 156.216 155.692 7.620 Empty Bag 1 bag @ 15 MCG/ KG/MIN 5.715 mls/hr IV . [id number] [facility] Rx#:[id number] Tube Feeding 363 396 33 Other 180 90 Output: Urine 2114 2290 175 Other: Voiding Method Indwelling Catheter Indwelling Catheter ABP, PAP, CO, CI - Last Documented Arterial Blood Pressure 145/68 - Exam Patient is currently sedated and calm and comfortable on the mechanical ventilator. Tracheostomy tube in place. Head exam was generally normal. There was no scleral icterus or corneal arcus. Mucous membranes were moist. Neck was supple and without jugular venous distension, thyromegaly, or carotid bruits. Carotids were easily palpable bilaterally. There was no adenopathy. The patient is tracheostomy tube in place and exit site is dry clean and intact and patient has a number HI tracheostomy tube in place Lung sounds are diminished and the patient has a barrel chest. Marked diminished breath sound bilaterally patient lung bases. Scattered expiratory wheezes also appreciated. There is prolongation of exhalation phase of breathing and marked diminished breath sounds bilaterally. Cardiac exam revealed the PMI to be normally situated and sized. The rhythm was regular and no extrasystoles were noted during several minutes of auscultation. The first and second heart sounds were normal and physiologic splitting of the second heart sound was noted. There were no murmurs, rubs, clicks, or gallops. Abdominal exam revealed normal bowel sounds. The abdomen was soft, non-tender, and without masses, organomegaly, or appreciable enlargement of the abdominal aorta. PEG tube site is dry clean and intact Examination of the extremities revealed easily palpable radial, femoral and pedal pulses. There was no cyanosis, clubbing or edema. Examination of the skin revealed no evidence of significant rashes, suspicious appearing nevi or other concerning lesions. Neurologically, the patient is lethargic and sleepy at this point. Significant motor weakness in all 4 extremities. Pupils are equal reactive to light. No facial asymmetry. - Labs CBC & Chem 7: 08/28/23 04:10 08/28/23 04:10 Labs: Abnormal Lab Results - Last 24 Hours (Table) 08/27/23 08/28/23 08/28/23 Range/Units 11:36 00:57 04:10 WBC 12.6 H (3.8-10.6) k/uL RBC 3.62 L (3.80-5.40) m/uL ABG pH (7.35-7.45) ABG pCO2 (35-45) mmHg ABG HCO3 (21-25) mmol/L ABG Total CO2 (19-24) mmol/L ABG O2 Saturation (94-97) % Sodium (137-145) mmol/L Carbon Dioxide (22-30) mmol/L Creatinine (0.52-1.04) mg/dL POC Glucose (mg/dL) 115 H 64 L (70-110) mg/dL Calcium (8.4-10.2) mg/dL 08/28/23 08/28/23 Range/Units 04:10 04:42 WBC (3.8-10.6) k/uL RBC (3.80-5.40) m/uL ABG pH 7.48 H (7.35-7.45) ABG pCO2 56 H (35-45) mmHg ABG HCO3 41 H* (21-25) mmol/L ABG Total CO2 43 H (19-24) mmol/L ABG O2 Saturation 98.2 H (94-97) % Sodium 135 L (137-145) mmol/L Carbon Dioxide 39 H (22-30) mmol/L Creatinine 0.17 L (0.52-1.04) mg/dL POC Glucose (mg/dL) (70-110) mg/dL Calcium 7.4 L (8.4-10.2) mg/dL Assessment and Plan Plan: Acute exacerbation of chronic COPD, failed outpatient treatment despite being on antibiotics and steroids. The patient failed inpatient BiPAP therapy and the patient ultimately was intubated on 08/13/2023 and the patient is a tracheostomy tube insertion on 08/23/2023 for prolonged ventilator dependent respiratory failure. Chest x-ray remains free of any pulm pulmonary infiltrates. Bronchoscopy yielded Rimma and the patient is currently on Eraxis. Prolonged respiratory failure requiring intubation and mechanical ventilation and tracheostomy tube for ongoing respiratory support. Acute hypoxic/hypercapnic respiratory failure secondary to above, remains on mechanical ventilator for respiratory support. Advanced COPD at baseline and the patient has been maintained on Trelegy Ellipta on outpatient basis History of smoking History of HIV currently on Biktarvy. Viral count and CD4 counts are not known. No previous history of a persistent infections. The patient has not been receiving any form of antibiotic treatments such as Bactrim. Her infectious disease doctor is Dr. Salguero. The CD4 count is at 81 Enteral feeding for nutritional support and the patient was given a PEG tube Left upper lobe pulmonary nodule measuring 9 mm in size, nonspecific finding. Plan Continue ventilator support for now, no changes Continue bronchodilators Continue prednisone burst taper Continue Eraxis Provide the patient is sedation holiday and assess readiness to wean, check weaning parameters if possible. Use Precedex if needed. Continue Lovenox for DVT prophylaxis Continue enteral feeding for nutritional support Rest of the medication will be kept unchanged including Biktarvy for HIV treatment Prognosis remains poor. Will continue to follow make further recommendations based on her progress. Condition is critical. This evaluation was done more than 30 minutes. Time with Patient: Greater than 30
[2023-08-28 17:42] LABS: Glucose,Whole Blood 114 mg/dL (70-110)
[2023-08-29 00:21] LABS: Glucose,Whole Blood 106 mg/dL (70-110)
[2023-08-29 04:55] LABS: HCT 36.4 % (34.0-46.0); HGB 11.4 gm/dL (11.4-16.0); MCH 31.6 pg (25.0-35.0); MCHC 31.5 g/dL (31.0-37.0); MCV 100.5 fL (80.0-100.0); Mean Platelet Volume 8.3; Platelet Count 210 k/uL (150-450); RBC 3.62 m/uL (3.80-5.40); RDW 13.5 % (11.5-15.5); WBC 13.1 k/uL (3.8-10.6)
[2023-08-29 05:05] LABS: ABG Base Excess 15.4 mmol/L; ABG PCO2 59 mmHg (35-45); ABG PH 7.44 (7.35-7.45); ABG PO2 122 mmHg (83-108); ABG TCO2 41 mmol/L (19-24); Allen Test Performed? Yes
[2023-08-29 05:08] LABS: ABG HCO3 40 mmol/L (21-25)
[2023-08-29 05:18] LABS: African American GFR (CKD) >90 (>60 ml/min/1.73 sqM); Blood Urea Nitrogen 13 mg/dL (7-17); Calcium 7.6 mg/dL (8.4-10.2); Chloride 98 mmol/L (98-107); Glucose 106 mg/dL (74-99); Non-African American GFR(CKD) >90 (>60 ml/min/1.73 sqM); Potassium 3.9 mmol/L (3.5-5.1); Sodium 133 mmol/L (137-145)
[2023-08-29 05:24] LABS: Anion Gap -3 mmol/L; Carbon Dioxide 38 mmol/L (22-30)
[2023-08-29 05:28] LABS: Glucose,Whole Blood 109 mg/dL (70-110)
[2023-08-29] MEDS: POTASSIUM BICARBONATE/CIT AC 20 MEQ TABLET.EFF NG-TUBE SCH (06:03)
--- NOTE | 2023-08-29 07:49 | P.PN ---
Subjective Progress Note Date: 08/28/23 Principal diagnosis: Reason for follow-up is HIV and possible pneumonia Patient is a 52-year-old female with a past medical history significant for HIV on Biktarvy, also with a history of COPD presenting to the hospital for evaluation of increasing shortness of breath patient did have worsening respiratory status got intubated, patient did have a CT angiogram of the chest that was negative for PE did shows a lung nodule did not mention any infiltrate or consolidation.Patient is status post tracheostomy completed on 08/23/2023 On today's evaluation that is 08/28/2023,the patient remains to be afebrile, patient is on the vent through the trach FiO2 of 35%, the patient is hemodynamically stable not requiring any pressor support no diarrhea or any other changes reported by nursing staff. Patient white count is down to 12.6, creatinine is 0.17 Objective - Vital Signs Vital signs: Vital Signs Temp 98.7 F 08/28/23 12:00 Pulse 123 H 08/28/23 14:00 Resp 17 08/28/23 14:00 BP 104/87 08/28/23 14:00 Pulse Ox 99 08/28/23 14:00 FiO2 35 08/28/23 14:00 Intake & Output 08/27/23 08/28/23 08/28/23 18:59 06:59 18:59 Intake Total 5534.846 6277.692 1037.787 Output Total 2115 2290 2525 Balance -354.784 -712.308 -1487.213 Weight 78.2 kg 78.2 kg Intake: IV 861 936 724 Normal Saline Pressure 36 36 24 Bag Potassium Chloride 10 meq 100 In Water For Injection 1 100ml.bag @ 100 mls/hr IVPB Q1H [facility] Rx#: [id number] Sodium Chloride 0.9% 1, 825 900 600 000 ml @ 75 mls/hr IV . [id number] [facility] Rx#:[id number] Intake, IV Titration 356.216 155.692 14.787 Amount Anidulafungin 100 mg In 100 Sodium Chloride 0.9% 100 ml @ 84 mls/hr IVPB DAILY @1600 [facility] Rx#:[id number] Clevidipine Butyrate 25 7.167 mg In Empty Bag 1 bag @ 1 MG/HR 2 mls/hr IV .Q24H [facility] Rx#:[id number] Potassium Chloride 10 meq 100 In Water For Injection 1 100ml.bag @ 100 mls/hr IVPB Q1H [facility] Rx#: [id number] propofoL 1,000 mg In 156.216 155.692 7.620 Empty Bag 1 bag @ 15 MCG/ KG/MIN 5.715 mls/hr IV . [id number] [facility] Rx#:[id number] Tube Feeding 363 396 239 Other 180 90 60 Output: Urine 2115 2290 2525 Other: Voiding Method Indwelling Catheter Indwelling Catheter Indwelling Catheter # Bowel Movements 1 ABP, PAP, CO, CI - Last Documented Arterial Blood Pressure 109/58 - Exam GENERAL DESCRIPTION: Middle-aged female intubated on the vent through the trach RESPIRATORY SYSTEM: Unlabored breathing , decreased breath sounds at bases HEART: S1 S2 regular rate and rhythm , ABDOMEN: Soft , no tenderness EXTREMITIES: No edema feet - Labs CBC & Chem 7: 08/29/23 04:42 08/29/23 04:42 Labs: Abnormal Lab Results - Last 24 Hours (Table) 08/28/23 08/28/23 08/28/23 Range/Units 00:57 04:10 04:10 WBC 12.6 H (3.8-10.6) k/uL RBC 3.62 L (3.80-5.40) m/uL ABG pH (7.35-7.45) ABG pCO2 (35-45) mmHg ABG HCO3 (21-25) mmol/L ABG Total CO2 (19-24) mmol/L ABG O2 Saturation (94-97) % Sodium 135 L (137-145) mmol/L Carbon Dioxide 39 H (22-30) mmol/L Creatinine 0.17 L (0.52-1.04) mg/dL POC Glucose (mg/dL) 64 L (70-110) mg/dL Calcium 7.4 L (8.4-10.2) mg/dL 08/28/23 Range/Units 04:42 WBC (3.8-10.6) k/uL RBC (3.80-5.40) m/uL ABG pH 7.48 H (7.35-7.45) ABG pCO2 56 H (35-45) mmHg ABG HCO3 41 H* (21-25) mmol/L ABG Total CO2 43 H (19-24) mmol/L ABG O2 Saturation 98.2 H (94-97) % Sodium (137-145) mmol/L Carbon Dioxide (22-30) mmol/L Creatinine (0.52-1.04) mg/dL POC Glucose (mg/dL) (70-110) mg/dL Calcium (8.4-10.2) mg/dL Assessment and Plan (1) Acute respiratory failure Current Visit: Yes Status: Acute Code(s): J96.00 - ACUTE RESPIRATORY FAILURE, UNSP W HYPOXIA OR HYPERCAPNIA SNOMED Code(s): 86522072 (2) HIV disease Current Visit: No Status: Acute Code(s): B20 - HUMAN IMMUNODEFICIENCY VIRUS [HIV] DISEASE SNOMED Code(s): 96515057 Plan: 1patient presented to hospital with increasing shortness of breath which is likely multifactorial in this patient who did have a history of COPD and likely COPD is a patient with a tracheobronchitis underlying pneumonia less likely but not entirely excluded 2-patient did have a CT angiogram of the chest that was negative for PE did not show any evidence of pneumonia or interstitial infiltrate 3-patient did have a penicillin allergy that will limit the number of antibiotics safe to use 4-patient to continue with Biktarvy for HIV 5-patient sputum is growing Rimma which is likely colonization however the patient did have worsening of the white count could be component of oropharyn geal candidiasis, patient has been started on Eraxis and the patient white count is trending down to continue and monitor clinical course closely Dictation was produced using [employer] dictation software. please excuse any grammatical, word or spelling errors. Time with Patient: Less than 30
[2023-08-29] MEDS: HYDROmorphone 1 MG/ML 1 ML SYRINGE IVP SCH (09:15)
[2023-08-29] MEDS: NALOXONE 0.4 MG/ML 1 ML VIAL IVP PRN (09:58)
[2023-08-29 11:11] LABS: Glucose,Whole Blood 135 mg/dL (70-110)
--- NOTE | 2023-08-29 11:46 | P.PN ---
Subjective Progress Note Date: 08/29/23 CHIEF COMPLAINT: Respiratory failure HISTORY OF PRESENT ILLNESS: Patient remains in the ICU on mechanical ventilation. She is status post tracheostomy and PEG tube placement. Patient is tolerating tube feeds. Tube feeds are at 28 mL/h. There is a small leak at the trach site. Patient is holding her tidal volumes. Afebrile. PHYSICAL EXAM: VITAL SIGNS: Reviewed. GENERAL: no acute distress. HEENT: Trach site with small leak. ABDOMEN: Soft. Nondistended. Nontender. PEG tube site clean dry and intact NEUROLOGIC: Intubated and sedated ASSESSMENT: 1. Acute hypoxic respiratory failure with difficulty to wean from the vent 2. COPD exacerbation 3. Moderate protein calorie malnutrition 4. History of HIV PLAN: -Continue tube feeds. Titrate tube feeds per dietitian recommendations -Continue to monitor tracheostomy -Continue ICU management -Continue supportive care Physician Instructor Psych[employer] A[employer] note has been reviewed by physician. Signing provider agrees with the documented findings, assessment, and plan of care. Objective - Vital Signs Vital signs: Vital Signs Temp 98.6 F 08/29/23 10:00 Pulse 107 H 08/29/23 11:00 Resp 20 08/29/23 11:00 BP 113/90 08/29/23 11:00 Pulse Ox 99 08/29/23 11:00 FiO2 35 08/29/23 08:37 Intake & Output 08/28/23 08/29/23 08/29/23 18:59 06:59 18:59 Intake Total 5726.768 4506.907 494.577 Output Total 3675 2900 2075 Balance -1977.213 -1546.093 -1580.423 Weight 78.2 kg 77 kg Intake: IV 1214 936 312 Anidulafungin 100 mg In 100 Sodium Chloride 0.9% 100 ml @ 84 mls/hr IVPB DAILY @1600 [facility] Rx#:[id number] Normal Saline Pressure 39 36 12 Bag Potassium Chloride 10 meq 100 In Water For Injection 1 100ml.bag @ 100 mls/hr IVPB Q1H [facility] Rx#: [id number] Sodium Chloride 0.9% 1, 975 900 300 000 ml @ 75 mls/hr IV . [id number] [facility] Rx#:[id number] Intake, IV Titration 14.787 77.907 12.577 Amount Clevidipine Butyrate 25 7.167 mg In Empty Bag 1 bag @ 1 MG/HR 2 mls/hr IV .Q24H [facility] Rx#:[id number] Dexmedetomidine/0.9% NaCl 77.907 12.577 (Pmx) 400 mcg In Empty Bag 1 bag @ 0.2 MCG/KG/HR 3.91 mls/hr IV .Q24H [facility] Rx#:[id number] propofoL 1,000 mg In 7.620 Empty Bag 1 bag @ 15 MCG/ KG/MIN 5.715 mls/hr IV . [id number] [facility] Rx#:[id number] Tube Feeding 379 280 140 Other 90 60 30 Output: Urine 3675 2900 2075 Other: Voiding Method Indwelling Catheter Indwelling Catheter Indwelling Catheter # Bowel Movements 1 1 ABP, PAP, CO, CI - Last Documented Arterial Blood Pressure 109/59 - Labs CBC & Chem 7: 08/29/23 04:42 08/29/23 04:42 Labs: Abnormal Lab Results - Last 24 Hours (Table) 08/28/23 08/29/23 08/29/23 Range/Units 17:40 04:42 04:42 WBC 13.1 H (3.8-10.6) k/uL RBC 3.62 L (3.80-5.40) m/uL MCV 100.5 H (80.0-100.0) fL ABG pCO2 (35-45) mmHg ABG pO2 (83-108) mmHg ABG HCO3 (21-25) mmol/L ABG Total CO2 (19-24) mmol/L ABG O2 Saturation (94-97) % Sodium 133 L (137-145) mmol/L Carbon Dioxide 38 H (22-30) mmol/L Creatinine 0.20 L (0.52-1.04) mg/dL Glucose 106 H (74-99) mg/dL POC Glucose (mg/dL) 114 H (70-110) mg/dL Calcium 7.6 L (8.4-10.2) mg/dL 08/29/23 08/29/23 Range/Units 05:00 11:09 WBC (3.8-10.6) k/uL RBC (3.80-5.40) m/uL MCV (80.0-100.0) fL ABG pCO2 59 H (35-45) mmHg ABG pO2 122 H (83-108) mmHg ABG HCO3 40 H* (21-25) mmol/L ABG Total CO2 41 H (19-24) mmol/L ABG O2 Saturation 99.0 H (94-97) % Sodium (137-145) mmol/L Carbon Dioxide (22-30) mmol/L Creatinine (0.52-1.04) mg/dL Glucose (74-99) mg/dL POC Glucose (mg/dL) 135 H (70-110) mg/dL Calcium (8.4-10.2) mg/dL Microbiology - Last 24 Hours (Table) 08/13/23 13:30 Acid Fast Bacilli Smear - Preliminary Sputum Acid Fast Bacilli Culture - Preliminary
--- NOTE | 2023-08-29 12:29 | P.PN ---
Subjective Progress Note Date: 08/29/23 52-year-old female who initially came into the hospital due to difficulty breathing and cough. Patient was found to have significant COPD exacerbation and required intubation. She continues in the intensive care unit she is on the mechanical ventilator with an FiO2 of 35% with a PEEP of 5. She is currently on an IV Versed and IV fentanyl infusion as well as IV Solu-Medrol. She is currently sedated with propofol. patient is maintained on Biktarvy also for history of HIV. On enteral feedings. Chest x-ray today shows improved aeration of the lung bases. Labs today reveal a white blood cell count of 11.6, sodium 133, BUN of 23, creatinine of 0.29. Her glucose is in the 120s to 130s range. CO2 of 40. Sputum culture was found to be positive for Rimma. She is being considered for trach and PEG tube placement. 08/22/2023 Patient evaluated in follow up today in the ICU. Remains on the mechanical ventilator with FiO2 of 35% and PEEP of 5. Patient is scheduled for PEG/Trach placement today. Remains on IV fentanyl, IV versed, IV propofol, IV solumedrol. Patient is being hydrated with normal saline. Chest xray today shows no focal infiltrates. 08/23/2023 Patient remains in the intensive care unit. Patient is currently on the mechanical ventilator. Patient underwent trach and PEG tube placement today. Remains on IV fentanyl, IV versed, IV propofol, IV solumedrol. Patient remains on Biktarvy. Unable to be considered for rehab or select specialty at this time due to the cost of the Biktarvy medication which will need to be continued at this time. White blood cell count today 13.4, sodium 136, BUN 19, creatinine 0.30. CO2 level 42. Blood glucose 170. 08/24/2023 Patient is evaluated today in the ICU. Patient is postoperative trach and peg tube placement. Remains on mechanical ventilator with FiO2 of 35% and PEEP of 5. Currently on IV fentanyl, IV versed, IV propofol and remains on high dose IV solumedrol. Sputum culture was positive for rimma patient is having worsening WBC today is 15k and ID has recommended to start the patient on IV anidulafungin. Patient is being hydrated with normal saline running at 75 mls/hr. Tube feedings were placed on hold for the PEG tube placement and are to be resumed today. 08/25/2023 Patient evaluated today in the ICU, patient remains on the mechanical ventilator. White blood cell count up to 16.9. Continues on IV anidulafungin. Chest xray today reveals chronic changes without acute cardiopulmonary disease. Patient on IV precedex, IV fentanyl, IV versed, IV propofol. Remains on normal saline. Continues on high dose IV solumedrol. Resumed on enteral feedings. 08/26/2023 Patient seen in follow-up continues to be in the ICU with multiple medical consultations following. Patient remains on mechanical ventilation with an FiO2 of 35%. Patient is currently weaned off Cleviprex and continues on fentanyl. Patient also maintained on antifungal with infectious disease following. Tube feedings at goal and patient is tolerating. Patient is afebrile although white count continues to remain elevated, possibly steroid effect and patient is being transition to oral prednisone. Continue with breathing inhalational treatments and follow-up on chest x-ray. 08/27/23 : Patient seen and evaluated in medical ICU vitals reviewed, blood work reviewed WBC 14.3, arterial blood gas reviewed pH 7.43/pCO2 60/pO2 79/serum chemistry sodium 136 BUN 19 creatinine 0.33 calcium of 7.4 08/28/23: Patient seen and evaluated at bedside, patient remains on ventilator through trach, vitals reviewed, FiO2 35% and arterial blood gas reviewed, serum chemistry showed sodium 135 creatinine 0.17 calcium of 7.4 blood glucose of 77, continue antifungal, infectious disease following. Patient transition to Precedex, propofol weaned off 08/29/23: Patient seen and evaluated bedside, planning to wean off ventilator, serial ABGs obtained, spontaneous breathing trial done, serum chemistry reviewed sodium 133, carbon dioxide 38, arterial blood gas shows metabolic alkalosis with respiratory compensation, continue management and medical ICU. PHYSICAL EXAMINATION: GENERAL: The patient is alert and oriented x 0, Sedated. Ill-appearing, trach in place, on vent HEENT: Normocephalic, atraumatic. CARDIOVASCULAR: S1 and S2 present. Tachycardia noted PULMONARY: Diminished breath sounds bilaterally with scattered rhonchi noted.. ABDOMEN: Soft, nontender, nondistended, normoactive bowel sounds. No palpable organomegaly. MUSCULOSKELETAL: No joint swelling or deformity. EXTREMITIES: No cyanosis, clubbing, mild generalized edema noted NEUROLOGICAL: Patient is sedated Assessment and Plan * Acute hypoxemic hypercapnic respiratory failure requiring intubation on 08/12 status post PEG tube and tracheostomy placement * Acute exacerbation of COPD * S/p tracheostomy * Multifocal pneumonia, with Rimma albicans * Left upper lobe nodule * History of HIV currently on Biktarvy. Viral count and CD4 counts are not known. No previous history of a persistent infections. The patient has not been receiving any form of antibiotic treatments such as Bactrim. Her infectious disease doctor is Dr. Salguero. The CD4 count is at 81 * Moderate protein calorie malnutrition * Chronic nicotine use * Continue medical management in ICU, seen by pulmonary medicine, infectious disease * In regards to hypoxemic hypercapnic respiratory failure continue patient on mechanical ventilation, s/p PEG tube placement, s/p trach, continue sedation, weaned off propofol, on Precedex which has been weaned off as well. Patient continues to remain encephalopathic, difficult to arouse. * In regards to malnutrition continue patient on enteral tube feeding * Wean vent as tolerated, tube feeds at goal managed by dietitian * In regards to HIV continue current treatment seen by infectious disease * Prognosis remains guarded Objective - Vital Signs Vital signs: Vital Signs Temp 97.7 F 08/29/23 04:00 Pulse 125 H 08/29/23 09:00 Resp 21 08/29/23 09:00 BP 152/99 08/29/23 09:00 Pulse Ox 100 08/29/23 09:00 FiO2 35 08/29/23 08:37 Intake & Output 08/28/23 08/29/23 08/29/23 18:59 06:59 18:59 Intake Total 9953.685 7415.907 242 Output Total 3675 2900 550 Balance -1977.213 -1546.093 -308 Weight 78.2 kg 77 kg Intake: IV 1214 936 156 Anidulafungin 100 mg In 100 Sodium Chloride 0.9% 100 ml @ 84 mls/hr IVPB DAILY @1600 [facility] Rx#:[id number] Normal Saline Pressure 39 36 6 Bag Potassium Chloride 10 meq 100 In Water For Injection 1 100ml.bag @ 100 mls/hr IVPB Q1H [facility] Rx#: [id number] Sodium Chloride 0.9% 1, 975 900 150 000 ml @ 75 mls/hr IV . [id number] [facility] Rx#:[id number] Intake, IV Titration 14.787 77.907 Amount Clevidipine Butyrate 25 7.167 mg In Empty Bag 1 bag @ 1 MG/HR 2 mls/hr IV .Q24H [facility] Rx#:[id number] Dexmedetomidine/0.9% NaCl 77.907 (Pmx) 400 mcg In Empty Bag 1 bag @ 0.2 MCG/KG/HR 3.91 mls/hr IV .Q24H [facility] Rx#:[id number] propofoL 1,000 mg In 7.620 Empty Bag 1 bag @ 15 MCG/ KG/MIN 5.715 mls/hr IV . [id number] [facility] Rx#:[id number] Tube Feeding 379 280 56 Other 90 60 30 Output: Urine 3675 2900 550 Other: Voiding Method Indwelling Catheter Indwelling Catheter # Bowel Movements 1 1 ABP, PAP, CO, CI - Last Documented Arterial Blood Pressure 177/86 - Labs CBC & Chem 7: 08/29/23 04:42 08/29/23 04:42 Labs: Abnormal Lab Results - Last 24 Hours (Table) 08/28/23 08/29/23 08/29/23 Range/Units 17:40 04:42 04:42 WBC 13.1 H (3.8-10.6) k/uL RBC 3.62 L (3.80-5.40) m/uL MCV 100.5 H (80.0-100.0) fL ABG pCO2 (35-45) mmHg ABG pO2 (83-108) mmHg ABG HCO3 (21-25) mmol/L ABG Total CO2 (19-24) mmol/L ABG O2 Saturation (94-97) % Sodium 133 L (137-145) mmol/L Carbon Dioxide 38 H (22-30) mmol/L Creatinine 0.20 L (0.52-1.04) mg/dL Glucose 106 H (74-99) mg/dL POC Glucose (mg/dL) 114 H (70-110) mg/dL Calcium 7.6 L (8.4-10.2) mg/dL 08/29/23 Range/Units 05:00 WBC (3.8-10.6) k/uL RBC (3.80-5.40) m/uL MCV (80.0-100.0) fL ABG pCO2 59 H (35-45) mmHg ABG pO2 122 H (83-108) mmHg ABG HCO3 40 H* (21-25) mmol/L ABG Total CO2 41 H (19-24) mmol/L ABG O2 Saturation 99.0 H (94-97) % Sodium (137-145) mmol/L Carbon Dioxide (22-30) mmol/L Creatinine (0.52-1.04) mg/dL Glucose (74-99) mg/dL POC Glucose (mg/dL) (70-110) mg/dL Calcium (8.4-10.2) mg/dL Microbiology - Last 24 Hours (Table) 08/13/23 13:30 Acid Fast Bacilli Smear - Preliminary Sputum Acid Fast Bacilli Culture - Preliminary
--- NOTE | 2023-08-29 12:40 | XR ---
EXAMINATION TYPE: XR chest 1V portable DATE OF EXAM: 08/29/2023 COMPARISON: 08/28/2023 INDICATION: Mechanical ventilation TECHNIQUE: Single frontal view of the chest is obtained. FINDINGS: The heart size is normal. The pulmonary vasculature is normal. The lungs are clear. PICC line is present on the right with the tip in the superior vena cava region. Tracheostomy tube is in the midline. IMPRESSION: 1. No acute pulmonary process.
--- NOTE | 2023-08-29 13:01 | P.PN ---
Subjective Progress Note Date: 08/29/23 On today's evaluation of 08/28/2023, the patient is being seen for a follow-up. This is a case of advanced COPD maintained on Trelegy Ellipta on outpatient basis along with HIV with low CD4 counts, presented to the hospital with respiratory failure multiple requiring intubation and mechanical ventilation. The patient is post prolonged ventilator dependent respiratory failure and the patient was given a tracheostomy tube that was inserted on 08/23/2023. Noted the patient was intubated on 08/13/2023. This morning, the patient is on propofol running at 50 mcg/kg/min and the patient will be given a sedation holiday. The patient is also normal sinus rate of 75 cc an hour. She is on assist-control mode at the rate of 18, tidal volume of 350, FiO2 is at 35% with a PEEP of 5. The chest x-ray from today is showing adequate positioning of the tracheostomy tube. The patient also has a right upper extremity PICC line catheter in place. No evidence of any cardiopulmonary abnormalities. No infiltrates or airspace disease. The patient remains on bronchodilators [id number] with Karen cramer. The patient remains on prednisone 40 mg p.o. daily as part of burst taper. The patient is on Lovenox for DVT prophylaxis. The patient is sitting PEG tube feeding and the patient has a vital AF at a rate of 33 cc an hour. Fluid balance is -1 L over the past 24 hours. No other significant events overnight. The blood gas from today shows a pH of 7.48 with a pCO2 of 56 and pO2 of 93. WBC count of 12.6 with a hemoglobin of 11.7, BUN is at 15 with a creatinine of 0.17 and sodium is at 135 and a potassium level of 3.8. Blood sugars at 83 from this morning. The bronchial wash was positive for Rimma and the patient is currently on Eraxis. On today's evaluation of 08/29/2023, I am seeing the patient for a follow-up. The patient remains on mechanical ventilator and the patient has a tracheostomy tube in place. The patient has been off propofol for the past 24 hours. Currently she is not receiving any form of sedative medications. She is very sluggishly responsive. Unable to communicate. Remains quite obtunded. Could be residual effect of various sedatives given to this patient over the past few weeks. She remains assist-control mode of mechanical ventilation at the rate of 18, tidal volume of 350, FiO2 of 35% with a PEEP of 5. Blood gas with a pH of 7.44 with pCO2 of 39 and pO2 of 122. Chest x-ray shows no acute abnormalities. Is consistent with COPD. Last procedure consolidation. Sodium level is 133 with a potassium level of 3.9, BUN is at 15 with a creatinine of 0.2 and a potassium level is at 3.9. WBC count is at 15.1 with a hemoglobin of 11.4 and a platelet count of 210. Remains on DuoNeb nebulized treatments [id number]. Remains on prednisone 40 mg p.o. daily. Remains on Lovenox for DVT prophylaxis 40 mg subcu on a daily basis. SSI scale coverage and the patient is also receiving enteral feeding for nutritional support with vital AF at the rate of 23 cc an hour through a PEG tube. Cardiac rhythm is sinus. No other significant events over the past 24 hours at this point in time. Objective - Vital Signs Vital signs: Vital Signs Temp 97.7 F 08/29/23 04:00 Pulse 120 H 08/29/23 08:44 Resp 18 08/29/23 07:00 BP 123/86 08/29/23 07:00 Pulse Ox 98 08/29/23 07:00 FiO2 35 08/29/23 08:37 Intake & Output 08/28/23 08/29/23 08/29/23 18:59 06:59 18:59 Intake Total 0604.697 4182.907 242 Output Total 3675 2900 550 Balance -1977.213 -1546.093 -308 Weight 78.2 kg 77 kg Intake: IV 1214 936 156 Anidulafungin 100 mg In 100 Sodium Chloride 0.9% 100 ml @ 84 mls/hr IVPB DAILY @1600 [facility] Rx#:[id number] Normal Saline Pressure 39 36 6 Bag Potassium Chloride 10 meq 100 In Water For Injection 1 100ml.bag @ 100 mls/hr IVPB Q1H [facility] Rx#: [id number] Sodium Chloride 0.9% 1, 975 900 150 000 ml @ 75 mls/hr IV . [id number] [facility] Rx#:[id number] Intake, IV Titration 14.787 77.907 Amount Clevidipine Butyrate 25 7.167 mg In Empty Bag 1 bag @ 1 MG/HR 2 mls/hr IV .Q24H [facility] Rx#:[id number] Dexmedetomidine/0.9% NaCl 77.907 (Pmx) 400 mcg In Empty Bag 1 bag @ 0.2 MCG/KG/HR 3.91 mls/hr IV .Q24H [facility] Rx#:[id number] propofoL 1,000 mg In 7.620 Empty Bag 1 bag @ 15 MCG/ KG/MIN 5.715 mls/hr IV . [id number] [facility] Rx#:[id number] Tube Feeding 379 280 56 Other 90 60 30 Output: Urine 3675 2900 550 Other: Voiding Method Indwelling Catheter Indwelling Catheter # Bowel Movements 1 1 ABP, PAP, CO, CI - Last Documented Arterial Blood Pressure 138/63 - Exam Patient is currently sedated and calm and comfortable on the mechanical ventilator. Tracheostomy tube in place. Lethargic, currently off sedation. Responds to painful stimulation. Does not follow commands. Motor function is essentially absent and extremely weak Head exam was generally normal. There was no scleral icterus or corneal arcus. Mucous membranes were moist. Neck was supple and without jugular venous distension, thyromegaly, or carotid bruits. Carotids were easily palpable bilaterally. There was no adenopathy. The patient is tracheostomy tube in place and exit site is dry clean and intact and patient has a number HI tracheostomy tube in place Lung sounds are diminished and the patient has a barrel chest. Marked diminished breath sound bilaterally patient lung bases. Scattered expiratory wheezes also appreciated. There is prolongation of exhalation phase of breathing and marked diminished breath sounds bilaterally. Cardiac exam revealed the PMI to be normally situated and sized. The rhythm was regular and no extrasystoles were noted during several minutes of auscultation. The first and second heart sounds were normal and physiologic splitting of the second heart sound was noted. There were no murmurs, rubs, clicks, or gallops. Abdominal exam revealed normal bowel sounds. The abdomen was soft, non-tender, and without masses, organomegaly, or appreciable enlargement of the abdominal aorta. PEG tube site is dry clean and intact Examination of the extremities revealed easily palpable radial, femoral and pedal pulses. There was no cyanosis, clubbing or edema. Examination of the skin revealed no evidence of significant rashes, suspicious appearing nevi or other concerning lesions. Neurologically, the patient is lethargic and sleepy at this point. Significant motor weakness in all 4 extremities. Pupils are equal reactive to light. No facial asymmetry. - Labs CBC & Chem 7: 08/29/23 04:42 08/29/23 04:42 Labs: Abnormal Lab Results - Last 24 Hours (Table) 08/28/23 08/29/23 08/29/23 Range/Units 17:40 04:42 04:42 WBC 13.1 H (3.8-10.6) k/uL RBC 3.62 L (3.80-5.40) m/uL MCV 100.5 H (80.0-100.0) fL ABG pCO2 (35-45) mmHg ABG pO2 (83-108) mmHg ABG HCO3 (21-25) mmol/L ABG Total CO2 (19-24) mmol/L ABG O2 Saturation (94-97) % Sodium 133 L (137-145) mmol/L Carbon Dioxide 38 H (22-30) mmol/L Creatinine 0.20 L (0.52-1.04) mg/dL Glucose 106 H (74-99) mg/dL POC Glucose (mg/dL) 114 H (70-110) mg/dL Calcium 7.6 L (8.4-10.2) mg/dL 08/29/23 Range/Units 05:00 WBC (3.8-10.6) k/uL RBC (3.80-5.40) m/uL MCV (80.0-100.0) fL ABG pCO2 59 H (35-45) mmHg ABG pO2 122 H (83-108) mmHg ABG HCO3 40 H* (21-25) mmol/L ABG Total CO2 41 H (19-24) mmol/L ABG O2 Saturation 99.0 H (94-97) % Sodium (137-145) mmol/L Carbon Dioxide (22-30) mmol/L Creatinine (0.52-1.04) mg/dL Glucose (74-99) mg/dL POC Glucose (mg/dL) (70-110) mg/dL Calcium (8.4-10.2) mg/dL Microbiology - Last 24 Hours (Table) 08/13/23 13:30 Acid Fast Bacilli Smear - Preliminary Sputum Acid Fast Bacilli Culture - Preliminary Assessment and Plan Plan: Acute exacerbation of chronic COPD, failed outpatient treatment despite being on antibiotics and steroids. The patient failed inpatient BiPAP therapy and the patient ultimately was intubated on 08/13/2023 and the patient is a tracheostomy tube insertion on 08/23/2023 for prolonged ventilator dependent respiratory failure. Chest x-ray remains free of any pulm pulmonary infiltrates. Bronchoscopy yielded Rimma and the patient is currently on Eraxis. Prolonged respiratory failure requiring intubation and mechanical ventilation and tracheostomy tube for ongoing respiratory support. Adequate oxygenation and ventilation on today's blood gases. Chest x-ray shows no acute abnormalities and is consistent with COPD. Acute hypoxic/hypercapnic respiratory failure secondary to above, remains on mechanical ventilator for respiratory support. Advanced COPD at baseline and the patient has been maintained on Trelegy Ellipta on outpatient basis History of smoking History of HIV currently on Biktarvy. Viral count and CD4 counts are not known. No previous history of a persistent infections. The patient has not been receiving any form of antibiotic treatments such as Bactrim. Her infectious disease doctor is Dr. Salguero. The CD4 count is at 81 Enteral feeding for nutritional support and the patient was given a PEG tube Left upper lobe pulmonary nodule measuring 9 mm in size, nonspecific finding. Encephalopathy, likely drug-induced and monitoring the mental status. 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 Plan Continue ventilator support and switch this patient from assist-control mode of mechanical ventilation to pressure support and I put the patient on pressure support of 20 with a PEEP of 5. She demonstrated adequate tidal volumes and adequate respiratory rate. She was comfortable on this mode of mechanical ventilation. Will keep the patient off sedative medications for now and monitor mental status. Continue bronchodilators Continue prednisone burst taper Continue Eraxis There is profound weakness along with encephalopathy this patient. This could be a drug-induced encephalopathy due to the large dose of medication the patient received for sedation. Continue Lovenox for DVT prophylaxis Continue enteral feeding for nutritional support Rest of the medication will be kept unchanged including Biktarvy for HIV treatment Prognosis remains poor. Will continue to follow make further recommendations based on her progress. Condition is critical. This evaluation was done more than 30 minutes. Time with Patient: Greater than 30
[2023-08-29] MEDS: HYDROmorphone 0.5 MG/0.5 ML SYRINGE IVP SCH (17:00)
[2023-08-29 17:49] LABS: Glucose,Whole Blood 143 mg/dL (70-110)
[2023-08-30 00:27] LABS: Glucose,Whole Blood 107 mg/dL (70-110)
[2023-08-30 04:47] LABS: ABG Base Excess 13.2 mmol/L; ABG HCO3 37 mmol/L (21-25); ABG Oxygen Saturation 98.5 % (94-97); ABG PCO2 50 mmHg (35-45); ABG PH 7.47 (7.35-7.45); ABG PO2 101 mmHg (83-108); ABG TCO2 38 mmol/L (19-24); Allen Test Performed? Yes
[2023-08-30 05:14] LABS: HCT 35.8 % (34.0-46.0); HGB 11.6 gm/dL (11.4-16.0); MCH 32.3 pg (25.0-35.0); MCHC 32.5 g/dL (31.0-37.0); MCV 99.2 fL (80.0-100.0); Mean Platelet Volume 7.4; Platelet Count 225 k/uL (150-450); RBC 3.61 m/uL (3.80-5.40); RDW 13.4 % (11.5-15.5); WBC 12.9 k/uL (3.8-10.6)
[2023-08-30 05:14] LABS: Glucose,Whole Blood 68 mg/dL (70-110)
[2023-08-30 05:25] LABS: African American GFR (CKD) >90 (>60 ml/min/1.73 sqM); Anion Gap -3 mmol/L; Blood Urea Nitrogen 14 mg/dL (7-17); Calcium 7.8 mg/dL (8.4-10.2); Carbon Dioxide 37 mmol/L (22-30); Chloride 97 mmol/L (98-107); Glucose 88 mg/dL (74-99); Non-African American GFR(CKD) >90 (>60 ml/min/1.73 sqM); Potassium 3.6 mmol/L (3.5-5.1); Sodium 131 mmol/L (137-145)
[2023-08-30 05:40] LABS: Glucose,Whole Blood 122 mg/dL (70-110)
--- NOTE | 2023-08-30 06:37 | CA ---
Transthoracic Echo Report Name: Neli Veloz Age: 52 Gender: F : 1970 Exam Date: 08/29/2023 08:52 Exam Location: [facility] Ht (in): 65 Wt (lb): 172 Ordering Physician: Patti Portillo MD Attending/Referring Phys: Blasting Entryman Janette Dhillon RDCS Procedure CPT: Indications: LV function Cardiac Hx: Technical Quality: Very technically difficult study Contrast 1: Definity Total Dose (mL): 2 Contrast 2: Total Dose (mL): MEASUREMENTS (Male / Female) Normal Values 2D ECHO LV Diastolic Volume MOD BP 66.9 cm??? 67 - 155 / 56 - 104 cm??? LV Systolic Volume MOD BP 20.0 cm??? 22 - 58 / 19 - 49 cm??? LV Ejection Fraction MOD BP 70.2 % >= 55 % LV Cardiac Index MOD BP 3187.7 cm???/min???m??? LV Diastolic Volume MOD 4C 58.1 cm??? LV Systolic Volume MOD 4C 16.1 cm??? LV Ejection Fraction MOD 4C 72.2 % LV Cardiac Index MOD 4C 2853.8 cm???/min???m??? LV Diastolic Length 4C 7.5 cm LV Systolic Length 4C 5.8 cm LV Diastolic Volume MOD 2C 73.9 cm??? LV Systolic Volume MOD 2C 24.7 cm??? LV Ejection Fraction MOD 2C 66.6 % LV Cardiac Index MOD 2C 3343.8 cm???/min???m??? LV Diastolic Length 2C 7.8 cm LV Systolic Length 2C 5.7 cm DOPPLER AV Peak Velocity 132.5 cm/s AV Peak Gradient 7.0 mmHg AV Mean Velocity 91.2 cm/s AV Mean Gradient 3.8 mmHg AV Velocity Time Integral 22.1 cm FINDINGS Left Ventricle Left ventricular ejection fraction is estimated at 65-70 %. Left ventricular cavity size normal. No obvious regional wall motion abnormalities. Right Ventricle Right ventricle not well visualized. Unable to estimate the right ventricular systolic pressure. Right Atrium Right atrium not well visualized. Left Atrium Normal left atrial size. Mitral Valve Structurally normal mitral valve. No mitral stenosis, regurgitation or prolapse. Aortic Valve Aortic valve not well visualized. No aortic valve stenosis or regurgitation. Tricuspid Valve Structurally normal tricuspid valve. No tricuspid stenosis, regurgitation or prolapse. Pulmonic Valve Pulmonic valve not well visualized. Pericardium No pericardial effusion. Left pleural effusion. Aorta Aortic root and proximal ascending aorta not well visualized. CONCLUSIONS Technically difficult study Normal LV systolic function Poorly visualized intracardiac valves Previewed by: Dr. Cristobal Covington MD (Electronically Signed) Final Date: 30 Aug 2023 06:36
--- NOTE | 2023-08-30 07:38 | XR ---
EXAMINATION TYPE: XR chest 1V portable DATE OF EXAM: 08/30/2023 5:24 AM CLINICAL INDICATION:Female, 52 years old with history of mechanical ventilation; [facility] COMPARISON: Chest radiographs from 08/29/2023. TECHNIQUE: XR chest 1V portable Frontal view of the chest. FINDINGS: Lungs/Pleura: There is no evidence of pleural effusion, focal consolidation, or pneumothorax. Pulmonary vascularity: Unremarkable. Heart/mediastinum: Cardiomediastinal silhouette is unremarkable. Musculoskeletal: No acute osseous pathology. Other findings: None Lines/Tubes: Tracheostomy cannula tip projecting over the trachea. Right-sided PICC line with distal tip at the cavoatrial junction. IMPRESSION: No acute cardiopulmonary disease/process.
[2023-08-30] MEDS: busPIRone HCl 10 MG TAB PO SCH (09:25)
[2023-08-30 11:27] LABS: Glucose,Whole Blood 125 mg/dL (70-110)
--- NOTE | 2023-08-30 11:31 | P.PN ---
Subjective Progress Note Date: 08/30/23 CHIEF COMPLAINT: Respiratory failure HISTORY OF PRESENT ILLNESS: Patient remains in the ICU on mechanical ventilation. She is status post tracheostomy and PEG tube placement. Patient is tolerating tube feeds. Tube feeds are at 28 mL/h which is goal. There is a small leak at the trach site. Patient is holding her tidal volumes. Afebrile. WBC 12.9 PHYSICAL EXAM: VITAL SIGNS: Reviewed. GENERAL: no acute distress. HEENT: Trach site with small leak. ABDOMEN: Soft. Nondistended. Nontender. PEG tube site clean dry and intact NEUROLOGIC: Intubated and sedated ASSESSMENT: 1. Acute hypoxic respiratory failure with difficulty to wean from the vent 2. COPD exacerbation 3. Moderate protein calorie malnutrition 4. History of HIV PLAN: -Continue tube feeds -Continue to monitor tracheostomy -Continue ICU management -Continue supportive care Physician Cell Inspector note has been reviewed by physician. Signing provider agrees with the documented findings, assessment, and plan of care. Objective - Vital Signs Vital signs: Vital Signs Temp 98.3 F 08/30/23 08:00 Pulse 83 08/30/23 11:00 Resp 18 08/30/23 11:00 BP 95/71 08/30/23 11:00 Pulse Ox 100 08/30/23 11:00 FiO2 35 08/30/23 11:16 Intake & Output 08/29/23 08/30/23 08/30/23 18:59 06:59 18:59 Intake Total 1974.116 7138 557.17 Output Total 3560 2525 550 Balance -2201.142 -1147 7.17 Weight 71.9 kg Intake: IV 858 1014 312 Normal Saline Pressure 33 39 12 Bag Sodium Chloride 0.9% 1, 825 975 300 000 ml @ 75 mls/hr IV . [id number] [facility] Rx#:[id number] Intake, IV Titration 14.858 33.17 Amount Dexmedetomidine/0.9% NaCl 14.858 33.17 (Pmx) 400 mcg In Empty Bag 1 bag @ 0.2 MCG/KG/HR 3.91 mls/hr IV .Q24H [facility] Rx#:[id number] Oral 70 Tube Feeding 336 364 112 Other 150 30 Output: Urine 3560 2525 550 Other: Voiding Method Indwelling Catheter Indwelling Catheter Indwelling Catheter # Bowel Movements 2 ABP, PAP, CO, CI - Last Documented Arterial Blood Pressure 98/44 - Labs CBC & Chem 7: 08/30/23 04:35 08/30/23 04:35 Labs: Abnormal Lab Results - Last 24 Hours (Table) 08/29/23 08/30/23 08/30/23 Range/Units 17:46 04:35 04:35 WBC 12.9 H (3.8-10.6) k/uL RBC 3.61 L (3.80-5.40) m/uL ABG pH (7.35-7.45) ABG pCO2 (35-45) mmHg ABG HCO3 (21-25) mmol/L ABG Total CO2 (19-24) mmol/L ABG O2 Saturation (94-97) % Sodium 131 L (137-145) mmol/L Chloride 97 L (98-107) mmol/L Carbon Dioxide 37 H (22-30) mmol/L Creatinine 0.18 L (0.52-1.04) mg/dL POC Glucose (mg/dL) 143 H (70-110) mg/dL Calcium 7.8 L (8.4-10.2) mg/dL 08/30/23 08/30/23 08/30/23 Range/Units 04:45 05:13 05:38 WBC (3.8-10.6) k/uL RBC (3.80-5.40) m/uL ABG pH 7.47 H (7.35-7.45) ABG pCO2 50 H (35-45) mmHg ABG HCO3 37 H (21-25) mmol/L ABG Total CO2 38 H (19-24) mmol/L ABG O2 Saturation 98.5 H (94-97) % Sodium (137-145) mmol/L Chloride (98-107) mmol/L Carbon Dioxide (22-30) mmol/L Creatinine (0.52-1.04) mg/dL POC Glucose (mg/dL) 68 L 122 H (70-110) mg/dL Calcium (8.4-10.2) mg/dL 08/30/23 Range/Units 11:26 WBC (3.8-10.6) k/uL RBC (3.80-5.40) m/uL ABG pH (7.35-7.45) ABG pCO2 (35-45) mmHg ABG HCO3 (21-25) mmol/L ABG Total CO2 (19-24) mmol/L ABG O2 Saturation (94-97) % Sodium (137-145) mmol/L Chloride (98-107) mmol/L Carbon Dioxide (22-30) mmol/L Creatinine (0.52-1.04) mg/dL POC Glucose (mg/dL) 125 H (70-110) mg/dL Calcium (8.4-10.2) mg/dL
--- NOTE | 2023-08-30 11:36 | P.PN ---
Subjective Progress Note Date: 08/30/23 On today's evaluation of 08/28/2023, the patient is being seen for a follow-up. This is a case of advanced COPD maintained on Trelegy Ellipta on outpatient basis along with HIV with low CD4 counts, presented to the hospital with respiratory failure multiple requiring intubation and mechanical ventilation. The patient is post prolonged ventilator dependent respiratory failure and the patient was given a tracheostomy tube that was inserted on 08/23/2023. Noted the patient was intubated on 08/13/2023. This morning, the patient is on propofol running at 50 mcg/kg/min and the patient will be given a sedation holiday. The patient is also normal sinus rate of 75 cc an hour. She is on assist-control mode at the rate of 18, tidal volume of 350, FiO2 is at 35% with a PEEP of 5. The chest x-ray from today is showing adequate positioning of the tracheostomy tube. The patient also has a right upper extremity PICC line catheter in place. No evidence of any cardiopulmonary abnormalities. No infiltrates or airspace disease. The patient remains on bronchodilators [id number] with Karen cramer. The patient remains on prednisone 40 mg p.o. daily as part of burst taper. The patient is on Lovenox for DVT prophylaxis. The patient is sitting PEG tube feeding and the patient has a vital AF at a rate of 33 cc an hour. Fluid balance is -1 L over the past 24 hours. No other significant events overnight. The blood gas from today shows a pH of 7.48 with a pCO2 of 56 and pO2 of 93. WBC count of 12.6 with a hemoglobin of 11.7, BUN is at 15 with a creatinine of 0.17 and sodium is at 135 and a potassium level of 3.8. Blood sugars at 83 from this morning. The bronchial wash was positive for Rimma and the patient is currently on Eraxis. On today's evaluation of 08/29/2023, I am seeing the patient for a follow-up. The patient remains on mechanical ventilator and the patient has a tracheostomy tube in place. The patient has been off propofol for the past 24 hours. Currently she is not receiving any form of sedative medications. She is very sluggishly responsive. Unable to communicate. Remains quite obtunded. Could be residual effect of various sedatives given to this patient over the past few weeks. She remains assist-control mode of mechanical ventilation at the rate of 18, tidal volume of 350, FiO2 of 35% with a PEEP of 5. Blood gas with a pH of 7.44 with pCO2 of 39 and pO2 of 122. Chest x-ray shows no acute abnormalities. Is consistent with COPD. Last procedure consolidation. Sodium level is 133 with a potassium level of 3.9, BUN is at 15 with a creatinine of 0.2 and a potassium level is at 3.9. WBC count is at 15.1 with a hemoglobin of 11.4 and a platelet count of 210. Remains on DuoNeb nebulized treatments [id number]. Remains on prednisone 40 mg p.o. daily. Remains on Lovenox for DVT prophylaxis 40 mg subcu on a daily basis. SSI scale coverage and the patient is also receiving enteral feeding for nutritional support with vital AF at the rate of 23 cc an hour through a PEG tube. Cardiac rhythm is sinus. No other significant events over the past 24 hours at this point in time. On today's evaluation of 08/30/2023, the patient seems to be struggling while being on a volume cycle mechanical ventilation. The patient is on a assist- control of 18, tidal volume of 350, FiO2 of 35% with a PEEP of 5. Chest x-ray remains unchanged. The patient has been off Precedex. The sedation was discontinued 7 AM in the morning. While being off sedation, the patient does not show adequate mentation. She senses painful stimulation. Does not follow any commands. She is profoundly weak and debilitated. She remains in normal sinus rhythm 75 cc an hour. Fluid balance is -3.5 L over the past 24 hours. Blood gas from today show a pH of 7.47 with a pCO2 of 50 and pO2 of 101. The patient is on vital AF at rate of 28 cc an hour. She remains on bronchodilators. She remains on prednisone 40 mg p.o. daily. She is also on Seroquel. Seroquel is being given a dose of 50 mg 3 times daily and the patient is also on Zoloft 50 mg p.o. daily. BuSpar will be also added for increased anxiety. Objective - Vital Signs Vital signs: Vital Signs Temp 98.3 F 08/30/23 08:00 Pulse 83 08/30/23 11:00 Resp 18 08/30/23 11:00 BP 95/71 08/30/23 11:00 Pulse Ox 100 08/30/23 11:00 FiO2 35 08/30/23 11:16 Intake & Output 08/29/23 08/30/23 08/30/23 18:59 06:59 18:59 Intake Total 3582.214 3657 557.17 Output Total 3560 2525 550 Balance -2201.142 -1147 7.17 Weight 71.9 kg Intake: IV 858 1014 312 Normal Saline Pressure 33 39 12 Bag Sodium Chloride 0.9% 1, 825 975 300 000 ml @ 75 mls/hr IV . [id number] [facility] Rx#:[id number] Intake, IV Titration 14.858 33.17 Amount Dexmedetomidine/0.9% NaCl 14.858 33.17 (Pmx) 400 mcg In Empty Bag 1 bag @ 0.2 MCG/KG/HR 3.91 mls/hr IV .Q24H [facility] Rx#:[id number] Oral 70 Tube Feeding 336 364 112 Other 150 30 Output: Urine 3560 2525 550 Other: Voiding Method Indwelling Catheter Indwelling Catheter Indwelling Catheter # Bowel Movements 2 ABP, PAP, CO, CI - Last Documented Arterial Blood Pressure 98/44 - Exam Patient is currently sedated and calm and comfortable on the mechanical ventilator. Tracheostomy tube in place. Lethargic, currently off sedation. Responds to painful stimulation. Does not follow commands. Motor function is essentially absent and extremely weak Head exam was generally normal. There was no scleral icterus or corneal arcus. Mucous membranes were moist. Neck was supple and without jugular venous distension, thyromegaly, or carotid bruits. Carotids were easily palpable bilaterally. There was no adenopathy. The patient is tracheostomy tube in place and exit site is dry clean and intact and patient has a number HI tracheostomy tube in place Lung sounds are diminished and the patient has a barrel chest. Marked diminished breath sound bilaterally patient lung bases. Scattered expiratory wheezes also appreciated. There is prolongation of exhalation phase of breathing and marked diminished breath sounds bilaterally. Cardiac exam revealed the PMI to be normally situated and sized. The rhythm was regular and no extrasystoles were noted during several minutes of auscultation. The first and second heart sounds were normal and physiologic splitting of the second heart sound was noted. There were no murmurs, rubs, clicks, or gallops. Abdominal exam revealed normal bowel sounds. The abdomen was soft, non-tender, and without masses, organomegaly, or appreciable enlargement of the abdominal aorta. PEG tube site is dry clean and intact Examination of the extremities revealed easily palpable radial, femoral and pedal pulses. There was no cyanosis, clubbing or edema. Examination of the skin revealed no evidence of significant rashes, suspicious appearing nevi or other concerning lesions. Neurologically, the patient is lethargic and sleepy at this point. Significant motor weakness in all 4 extremities. Pupils are equal reactive to light. No facial asymmetry. - Labs CBC & Chem 7: 08/30/23 04:35 08/30/23 04:35 Labs: Abnormal Lab Results - Last 24 Hours (Table) 08/29/23 08/30/23 08/30/23 Range/Units 17:46 04:35 04:35 WBC 12.9 H (3.8-10.6) k/uL RBC 3.61 L (3.80-5.40) m/uL ABG pH (7.35-7.45) ABG pCO2 (35-45) mmHg ABG HCO3 (21-25) mmol/L ABG Total CO2 (19-24) mmol/L ABG O2 Saturation (94-97) % Sodium 131 L (137-145) mmol/L Chloride 97 L (98-107) mmol/L Carbon Dioxide 37 H (22-30) mmol/L Creatinine 0.18 L (0.52-1.04) mg/dL POC Glucose (mg/dL) 143 H (70-110) mg/dL Calcium 7.8 L (8.4-10.2) mg/dL 08/30/23 08/30/23 08/30/23 Range/Units 04:45 05:13 05:38 WBC (3.8-10.6) k/uL RBC (3.80-5.40) m/uL ABG pH 7.47 H (7.35-7.45) ABG pCO2 50 H (35-45) mmHg ABG HCO3 37 H (21-25) mmol/L ABG Total CO2 38 H (19-24) mmol/L ABG O2 Saturation 98.5 H (94-97) % Sodium (137-145) mmol/L Chloride (98-107) mmol/L Carbon Dioxide (22-30) mmol/L Creatinine (0.52-1.04) mg/dL POC Glucose (mg/dL) 68 L 122 H (70-110) mg/dL Calcium (8.4-10.2) mg/dL 08/30/23 Range/Units 11:26 WBC (3.8-10.6) k/uL RBC (3.80-5.40) m/uL ABG pH (7.35-7.45) ABG pCO2 (35-45) mmHg ABG HCO3 (21-25) mmol/L ABG Total CO2 (19-24) mmol/L ABG O2 Saturation (94-97) % Sodium (137-145) mmol/L Chloride (98-107) mmol/L Carbon Dioxide (22-30) mmol/L Creatinine (0.52-1.04) mg/dL POC Glucose (mg/dL) 125 H (70-110) mg/dL Calcium (8.4-10.2) mg/dL Assessment and Plan Plan: Acute exacerbation of chronic COPD, failed outpatient treatment despite being on antibiotics and steroids. The patient failed inpatient BiPAP therapy and the patient ultimately was intubated on 08/13/2023 and the patient is a tracheostomy tube insertion on 08/23/2023 for prolonged ventilator dependent respiratory failure. Chest x-ray remains free of any pulm pulmonary infiltrates. Bronchoscopy yielded Rimma and the patient is currently on Eraxis. Prolonged respiratory failure requiring intubation and mechanical ventilation and tracheostomy tube for ongoing respiratory support. Adequate oxygenation and ventilation on today's blood gases. Chest x-ray shows no acute abnormalities and is consistent with COPD. Acute hypoxic/hypercapnic respiratory failure secondary to above, remains [facility] for respiratory support. Advanced COPD at baseline and the patient has been maintained on Trelegy Ellipta on outpatient basis History of smoking History of HIV currently on Biktarvy. Viral count and CD4 counts are not known. No previous history of a persistent infections. The patient has not been receiving any form of antibiotic treatments such as Bactrim. Her infectious disease doctor is Dr. Salguero. The CD4 count is at 81 Enteral feeding for nutritional support and the patient was given a PEG tube Left upper lobe pulmonary nodule measuring 9 mm in size, nonspecific finding. Encephalopathy, likely drug-induced and monitoring the mental status. The patient is still requiring sedation on and off. Precedex was discontinued this morning at around 7:00. 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 Plan Keep the patient off Precedex and monitor the mentation. Add BuSpar for increased anxiety Continue Seroquel and Zoloft Continue ventilator support and switch this patient to pressure control mode of mechanical ventilation at rate of 18, pressure control of 15, PEEP of 5 and an inspiratory time of 0.8. Will keep the patient off sedative medications for now and monitor mental status. Continue bronchodilators Continue prednisone burst taper, currently on 40 mg Continue Eraxis There is profound weakness along with encephalopathy this patient. This could be a drug-induced encephalopathy due to the large dose of medication the patient received for sedation. Continue Lovenox for DVT prophylaxis Continue enteral feeding for nutritional support Rest of the medication will be kept unchanged including Biktarvy for HIV treatment Prognosis remains poor. Will continue to follow make further recommendations based on her progress. Will try to transfer this patient to select specialty. Is going to be a very difficult wean. Patient is profoundly weak and debilitated. Mental status is also an ongoing issue although I believe that this is still part related to metabolic encephalopathy/drug-induced encephalopathy. Condition is critical. This evaluation was done more than 30 minutes. Time with Patient: Greater than 30
[2023-08-30 17:07] LABS: Glucose,Whole Blood 137 mg/dL (70-110)
--- NOTE | 2023-08-30 23:30 | P.PN ---
Subjective 52-year-old female who initially came into the hospital due to difficulty breathing and cough. Patient was found to have significant COPD exacerbation and required intubation. She continues in the intensive care unit she is on the mechanical ventilator with an FiO2 of 35% with a PEEP of 5. She is currently on an IV Versed and IV fentanyl infusion as well as IV Solu-Medrol. She is currently sedated with propofol. patient is maintained on Biktarvy also for history of HIV. On enteral feedings. Chest x-ray today shows improved aeration of the lung bases. Labs today reveal a white blood cell count of 11.6, sodium 133, BUN of 23, creatinine of 0.29. Her glucose is in the 120s to 130s range. CO2 of 40. Sputum culture was found to be positive for Rimma. She is being considered for trach and PEG tube placement. 08/22/2023 Patient evaluated in follow up today in the ICU. Remains on the mechanical ventilator with FiO2 of 35% and PEEP of 5. Patient is scheduled for PEG/Trach placement today. Remains on IV fentanyl, IV versed, IV propofol, IV solumedrol. Patient is being hydrated with normal saline. Chest xray today shows no focal infiltrates. 08/23/2023 Patient remains in the intensive care unit. Patient is currently on the [facility] ventilator. Patient underwent trach and PEG tube placement today. Remains on IV fentanyl, IV versed, IV propofol, IV solumedrol. Patient remains on Biktarvy. Unable to be considered for rehab or select specialty at this time due to the cost of the Biktarvy medication which will need to be continued at this time. White blood cell count today 13.4, sodium 136, BUN 19, creatinine 0.30. CO2 level 42. Blood glucose 170. 08/24/2023 Patient is evaluated today in the ICU. Patient is postoperative trach and peg tube placement. Remains on mechanical ventilator with FiO2 of 35% and PEEP of 5. Currently on IV fentanyl, IV versed, IV propofol and remains on high dose IV solumedrol. Sputum culture was positive for rimma patient is having worsening WBC today is 15k and ID has recommended to start the patient on IV anidulafungin. Patient is being hydrated with normal saline running at 75 m ls/hr. Tube feedings were placed on hold for the PEG tube placement and are to be resumed today. 08/25/2023 Patient evaluated today in the ICU, patient remains on the mechanical ventilator. White blood cell count up to 16.9. Continues on IV anidulafungin. Chest xray today reveals chronic changes without acute cardiopulmonary disease. Patient on IV precedex, IV fentanyl, IV versed, IV propofol. Remains on normal saline. Continues on high dose IV solumedrol. Resumed on enteral feedings. 08/26/2023 Patient seen in follow-up continues to be in the ICU with multiple medical consultations following. Patient remains on mechanical ventilation with an FiO2 of 35%. Patient is currently weaned off Cleviprex and continues on fentanyl. Patient also maintained on antifungal with infectious disease following. Tube feedings at goal and patient is tolerating. Patient is afebrile although white count continues to remain elevated, possibly steroid effect and patient is being transition to oral prednisone. Continue with breathing inhalational treatments and follow-up on chest x-ray. 08/27/23 : Patient seen and evaluated in medical ICU vitals reviewed, blood work reviewed WBC 14.3, arterial blood gas reviewed pH 7.43/pCO2 60/pO2 79/serum chemistry sodium 136 BUN 19 creatinine 0.33 calcium of 7.4 08/28/23: Patient seen and evaluated at bedside, patient remains on ventilator through trach, vitals reviewed, FiO2 35% and arterial blood gas reviewed, serum chemistry showed sodium 135 creatinine 0.17 calcium of 7.4 blood glucose of 77, continue antifungal, infectious disease following. Patient transition to Precedex, propofol weaned off 08/29/23: Patient seen and evaluated bedside, planning to wean off ventilator, serial ABGs obtained, spontaneous breathing trial done, serum chemistry reviewed sodium 133, carbon dioxide 38, arterial blood gas shows metabolic alkalosis with respiratory compensation, continue management and medical ICU. 08/30/2023 Patient is a sleepy, she was still on Precedex when seen in the morning Tracheostomy on mechanical ventilation, PEEP of 5 and FiO2 of 35% Blood pressure is 81/35, heart rate 92 Patient has Ortiz catheter with clear yellow urine. Fecal management system. Mild leukocytosis of 12.9 Sputum culture growing Rimma, patient currently on Eraxis and nystatin Also on prednisone 40 mg for her severe COPD seen on CT of the chest Patient also on HIV treatment and normal saline 75 mL/h Objective - Vital Signs Vital signs: Vital Signs Temp 98.3 F 08/30/23 08:00 Pulse 126 H 08/30/23 09:00 Resp 22 08/30/23 09:00 BP 91/61 08/30/23 08:00 Pulse Ox 98 08/30/23 09:00 FiO2 35 08/30/23 09:10 Intake & Output 08/29/23 08/30/23 08/30/23 18:59 06:59 18:59 Intake Total 3513.934 8189 345.17 Output Total 3560 2525 350 Balance -2201.142 -1147 -4.83 Weight 71.9 kg Intake: IV 858 1014 156 Normal Saline Pressure 33 39 6 Bag Sodium Chloride 0.9% 1, 825 975 150 000 ml @ 75 mls/hr IV . [id number] [facility] Rx#:[id number] Intake, IV Titration 14.858 33.17 Amount Dexmedetomidine/0.9% NaCl 14.858 33.17 (Pmx) 400 mcg In Empty Bag 1 bag @ 0.2 MCG/KG/HR 3.91 mls/hr IV .Q24H [facility] Rx#:[id number] Oral 70 Tube Feeding 336 364 56 Other 150 30 Output: Urine 3560 2525 350 Other: Voiding Method Indwelling Catheter Indwelling Catheter Indwelling Catheter # Bowel Movements 2 ABP, PAP, CO, CI - Last Documented Arterial Blood Pressure 173/85 - Exam -GENERAL: The patient is sleepy HEENT: Pupils are round and equally reacting to light. EOMI. No scleral icterus. No conjunctival pallor. Normocephalic, atraumatic. No pharyngeal erythema. No thyromegaly. CARDIOVASCULAR: S1 and S2 present. No murmurs, rubs, or gallops. -PULMONARY: Chest is clear to auscultation, no wheezing , no crackles. S/p trach collar, on mechanical ventilation ABDOMEN: Soft, nontender, nondistended, normoactive bowel sounds. No palpable organomegaly. MUSCULOSKELETAL: No joint swelling or deformity. EXTREMITIES: No cyanosis, clubbing, or pedal edema. NEUROLOGICAL: Gross neurological examination did not reveal any focal deficits. SKIN: No rashes. no petechiae. - Labs CBC & Chem 7: 08/30/23 04:35 08/30/23 04:35 Labs: Abnormal Lab Results - Last 24 Hours (Table) 08/29/23 08/29/23 08/30/23 Range/Units 11:09 17:46 04:35 WBC 12.9 H (3.8-10.6) k/uL RBC 3.61 L (3.80-5.40) m/uL ABG pH (7.35-7.45) ABG pCO2 (35-45) mmHg ABG HCO3 (21-25) mmol/L ABG Total CO2 (19-24) mmol/L ABG O2 Saturation (94-97) % Sodium (137-145) mmol/L Chloride (98-107) mmol/L Carbon Dioxide (22-30) mmol/L Creatinine (0.52-1.04) mg/dL POC Glucose (mg/dL) 135 H 143 H (70-110) mg/dL Calcium (8.4-10.2) mg/dL 08/30/23 08/30/23 08/30/23 Range/Units 04:35 04:45 05:13 WBC (3.8-10.6) k/uL RBC (3.80-5.40) m/uL ABG pH 7.47 H (7.35-7.45) ABG pCO2 50 H (35-45) mmHg ABG HCO3 37 H (21-25) mmol/L ABG Total CO2 38 H (19-24) mmol/L ABG O2 Saturation 98.5 H (94-97) % Sodium 131 L (137-145) mmol/L Chloride 97 L (98-107) mmol/L Carbon Dioxide 37 H (22-30) mmol/L Creatinine 0.18 L (0.52-1.04) mg/dL POC Glucose (mg/dL) 68 L (70-110) mg/dL Calcium 7.8 L (8.4-10.2) mg/dL 08/30/23 Range/Units 05:38 WBC (3.8-10.6) k/uL RBC (3.80-5.40) m/uL ABG pH (7.35-7.45) ABG pCO2 (35-45) mmHg ABG HCO3 (21-25) mmol/L ABG Total CO2 (19-24) mmol/L ABG O2 Saturation (94-97) % Sodium (137-145) mmol/L Chloride (98-107) mmol/L Carbon Dioxide (22-30) mmol/L Creatinine (0.52-1.04) mg/dL POC Glucose (mg/dL) 122 H (70-110) mg/dL Calcium (8.4-10.2) mg/dL Assessment and Plan Assessment: * Acute hypoxemic hypercapnic respiratory failure requiring intubation on 08/12 status post PEG tube and tracheostomy placement, S/p tracheostomy * Acute exacerbation of COPD * metabolic toxic encephalopathy * Patient with right inferior temporal infarct * Multifocal pneumonia, with Rimma albicans * Left upper lobe nodule , spiculated ,require PET scan at a later stage * HIV currently on Biktarvy. Viral count and CD4 counts are not known. No previous history of a persistent infections. The patient has not been receiving any form of antibiotic treatments such as Bactrim. Her infectious disease doctor is Dr. Salguero. The CD4 count is at 81 * Moderate protein calorie malnutrition * Chronic nicotine use Plan: Patient remains on mechanical ventilation with pulmonary/critical care team on the case Patient remains on sedation Remains on antifungal treatment with Eraxis and nystatin Continue with prednisone 40 mg Continue with normal saline 75 mL/h HIV treatment biktravy Pulmonary, infectious disease and general surgery team on the case Labs and medication were reviewed.. Monitor labs and vitals. DVT and GI prophylaxis. Further recommendations as per clinical course of the patient DVT prophylaxis: Subcutaneous Lovenoxheparin GI Prophylaxis: Pepcid Prognosis is guarded
[2023-08-31 00:05] LABS: Glucose,Whole Blood 60 mg/dL (70-110)
[2023-08-31 00:58] LABS: Glucose,Whole Blood 41 mg/dL (70-110)
[2023-08-31 01:02] LABS: Glucose,Whole Blood 131 mg/dL (70-110)
[2023-08-31 04:57] LABS: HCT 33.9 % (34.0-46.0); HGB 10.9 gm/dL (11.4-16.0); MCH 31.9 pg (25.0-35.0); MCHC 32.2 g/dL (31.0-37.0); Mean Platelet Volume 7.7; Platelet Count 234 k/uL (150-450); RBC 3.42 m/uL (3.80-5.40); RDW 13.7 % (11.5-15.5); WBC 13.5 k/uL (3.8-10.6)
[2023-08-31 05:10] LABS: African American GFR (CKD) >90 (>60 ml/min/1.73 sqM); Anion Gap 0 mmol/L; Blood Urea Nitrogen 13 mg/dL (7-17); Calcium 7.7 mg/dL (8.4-10.2); Carbon Dioxide 34 mmol/L (22-30); Chloride 99 mmol/L (98-107); Glucose 88 mg/dL (74-99); Non-African American GFR(CKD) >90 (>60 ml/min/1.73 sqM); Potassium 3.4 mmol/L (3.5-5.1); Sodium 133 mmol/L (137-145)
[2023-08-31 05:44] LABS: Glucose,Whole Blood 96 mg/dL (70-110)
[2023-08-31 06:07] LABS: ABG Base Excess 10.7 mmol/L; ABG HCO3 34 mmol/L (21-25); ABG Oxygen Saturation 98.9 % (94-97); ABG PCO2 45 mmHg (35-45); ABG PH 7.49 (7.35-7.45); ABG PO2 112 mmHg (83-108); ABG TCO2 36 mmol/L (19-24); Allen Test Performed? Yes
--- NOTE | 2023-08-31 06:11 | P.PN ---
Subjective Progress Note Date: 08/31/23 Principal diagnosis: Respiratory failure. Patient was elevated today on 08/16/2023, remains in the ICU, intubated and mechanically ventilated. Remains on assist-control rate of 18 tidal volume 350 FiO2 35% PEEP of 5 ABG showed a pO2 of 103 pCO2 68 pH of 7.31, hence no changes were made in vent settings. Patient continues to have relatively high peak airway pressures in the high 30s. Continues to be tight and seems to have poor air exchange. Yesterday the patient was given a trial off Nimbex, however could not tolerate going off Nimbex in spite of using propofol fentanyl and Versed. Patient had to go back on Nimbex yesterday because of extreme agitation and she was not synchronous with the ventilator, noted to be tachypneic, tachycardic, and she was bucking the ventilator. Not to mention she was developing significantly high airway pressure. Today the patient is back on Nimbex at 2 mcg/kg/min Fentanyl 1 mcg/kg/h propofol 60 mcg/kg/min she is receiving vital AF she is also 1.9 normal saline at 75 cc/h. Remains on antibiotics in the form of Levaquin and cefepime. Her cultures have been negative including BAL culture, she did have Rimma, doubt any significance, I infectious disease is addressing. Considering what I have noted yesterday when the patient was off Nimbex, and considering her overall clinical condition today, I have no plans to discontinue discontinue Nimbex today. Will continue with the present cocktail sedation including Nimbex fentanyl and propofol, and will continue mechanical ventilation without any major change. Also continue antibiotics. And bronchodilators as well as IV Solu-Medrol. Reevaluate today on 08/17/2023, patient remains in the ICU, intubated and mechanically ventilated. Remains on assist-control rate of 18 tidal volume 350 FiO2 35% and PEEP of 5 ABG showed a pO2 of 102 pCO2 65 pH of 7.33. Chest x-ray continues to show no evidence of any active process. Patient remains on propofol at 60 mcg/kg/min, Nimbex at 2 mcg/kg/min Fentanyl at 1 mcg/kg/h patient is receiving vital AF at she is remains on cefepime and Levaquin as per ID on the case. Today I plan to discontinue Nimbex and see if we could control patient's agitation adequately will fentanyl propofol and Versed if needed. Have tried in the past doing this, could not ventilate the patient without having to use Nimbex. However will try again to discontinue Nimbex and try to manage the patient with fentanyl propofol and Versed if possible. Otherwise I will place her back on Nimbex. Patient is hemodynamically stable, she is not requiring any pressors. She is receiving antibiotics is also receiving enteral feeding, and she is on GI and DVT prophylaxis. Reevaluate today on 08/18/2023, patient remains in the ICU, intubated and mechanically ventilated, on assist-control rate of 18 tidal volume 350 FiO2 35% PEEP of 5 ABG showed a pO2 of 85 pCO2 66 pH of 7.35 hence no changes were made in ventilator settings. Patient remains on fentanyl at 2 mcg/kg/h, Versed 4 mg/h propofol at 70 mcg/kg/min she is off Nimbex now for the last 24 hours, and able to control patient with sedation as such. Patient is on vital AF , the plan is to cut down her propofol to 50 and increase her Versed if needed. No plans to wean and extubate today, however will start possibly attempting sedation holidays beginning tomorrow. Chest x-ray continues to show no evidence of active disease. WBC count is 5.9 hemoglobin is 11.9 basic metabolic profile is normal renal profile is normal Patient was reevaluated today on 08/19/2023, remains in the ICU, intubated and mechanically ventilated, presently on assist-control rate of 18 tidal volume 350 FiO2 35% PEEP of 5 ABG showed a pO2 of 84 pCO2 68 pH of 7.35. Patient is close most likely to her baseline pCO2 in the 60s. Patient is on enteral feeding/vital HP she is also on propofol at 15 but the plan to increase up to 50 and discontinue Versed which is 3 mg/h at present patient is also on fentanyl 1 mcg/kg/h and an IV fluid at 75 cc/h in the form of saline. I am planning today to hold sedation, and assess mental status, but I am not planning to proceed to extubation. Her overall pulmonary status remains marginal at best, chest x-ray showed COPD but no evidence of pneumonia. WBC count is normal 7.3 hemoglobin is 11.9 basic metabolic profile is normal bicarb is 36 renal profile is normal Patient evaluated today on 08/20/2023, remains in the ICU, intubated and mechanically ventilated. Patient was given sedation holiday yesterday and early this morning, she gets extremely restless agitated, she was able to wiggle toes only, could not get any other responses on lower doses of sedation. However considering the patient is quite hypertensive off sedation, considering that the patient is definitely not ready for any form of weaning, the plan is to place back on fentanyl at 1 mcg/kg/h propofol will be increased back to 50 mcg/kg/min and will use Versed if necessary presently Versed is on hold. She is on 0.9 normal saline at 75 cc/h she is on Cleviprex at 13 mg/h patient is remains on antibiotics/Levaquin. Patient is developing a minimal patchy opacity in the right lower lobe which was not present previously, she is definitely a good set up for developing pneumonia. Ventilator settings today are assist-control rate of 18 tidal volume 350 FiO2 35% PEEP of 5 ABG showed a pO2 of 71 pCO2 68 pH of 7.40 hence no changes were made in vent settings. WBC count is 10.1 hemoglobin is 12 basic metabolic profile is normal except bicarb of 39 BUN is 33 creatinine 0.3 Progress note dated August 21, 2023. This is a 52-year-old female who was admitted on August 09. She came in with COPD exacerbation, and was intubated on August 12. She remains on the ventilator. She is on volume assist-control, rate 18, tidal volume 350, FiO2 35%, and PEEP of 5. Blood gases show pO2 of 63, pCO2 of 70, pH is 7.40. She continues on propofol at 40 mcg/kg/min, fentanyl at 1.5 mcg/kg/h, and Versed at 3 mg an hour. She is getting saline at 75 cc an hour, and vital AF at goal, which is 21 cc an hour. Because she has not made any headway towards weaning and extubation, we will ask surgery for tracheostomy and PEG tube placement. Current laboratory includes a white count 11.6, hemoglobin 12.2, hematocrit 38.3, and a normal platelet count. Sodium 133, potassium 4.1, chloride 95, CO2 40, BUN 23, and creatinine 0.29. Calcium 7.7. Sputum and bronchial washings were positive only for Rimma albicans. Chest x-ray shows improved aeration at the lung bases. Progress note dated August 22, 2023. This is a 52-year-old female who was admitted on August 09. She came in with COPD exacerbation, and was intubated on August 12. She remains on the ventilator. The patient's ventilator settings include volume assist-control, rate 18, tidal volume 350, FiO2 35%, and PEEP of 5. Blood gases show pO2 of 80, pCO2 of 67, pH is 7.42. The patient is getting saline at 75 cc an hour, propofol at 55 mcg/kg/min, fentanyl at 1.5 mcg/kg/h, Versed at 6 mg an hour, and tube feedings are on hold, for possible tracheostomy and PEG tube placement today. The patient's peak airway pressures 37, with a plateau pressure of 20. White count of 10.7, hemoglobin 11.6, hematocrit 37, and platelet count was normal. Sodium 135, potassium 4.5, chlorides 97, CO2 36, BUN 25, and creatinine is 0.36. Glucose is 136. Magnesium 2.4. Calcium 7.9. Chest x-ray shows no changes, compared to the prior chest x-ray. Progress note dated August 23, 2023. 52-year-old female admitted on August 09. She was admitted with a diagnosis of COPD exacerbation, and was intubated on August 12. She remains on the ventilator. Hopefully, today she will go for a tracheostomy, and PEG tube placement. She remains on the ventilator, with settings of volume assist- control, rate 18, tidal volume 350, FiO2 35%, and PEEP of 5. Blood gases show pO2 of 91, pCO2 of 63, pH is 7.44. The patient continues on saline at 75 cc an hour, Versed drip at 6 mg an hour, propofol at 55 mcg/kg/min, and fentanyl at 1.5 mcg/kg/h. Tube feeds are on hold. Will also ask for a PICC line, from interventional radiology. Currently, white count 13.4, globin 12, hematocrit 37.4, and platelet count 230,000. Sodium 136, potassium 4.1, chlorides 100, CO2 42, BUN 19, creatinine 0.30. Calcium is 8.1. Glucose is 128. Sputum, and bronchoscopy washings, does show evidence of Rimma albicans. Chest x-ray shows no definite focal consolidations. Progress note dated August 24, 2023. 52-year-old female admitted on August 09. She was admitted with a diagnosis of COPD exacerbation, and was intubated on August 12. She remains on the ventilator. The patient underwent a tracheostomy and PEG tube placement yesterday. She will have a PICC line placed today, i.e. August 23. Current ventilator settings include volume assist-control, rate 18, tidal volume 350, FiO2 35%, PEEP of 5. Blood gases show pO2 of 76, pCO2 of 63, pH is 7.41. The patient continues on Versed at 4 mg an hour, saline at 75 cc an hour, propofol at 40 mcg/kg/min, and fentanyl at 1.5 mcg/kg/h. Current white count 15, hemoglobin 12.2, hematocrit 37.5, and platelet count was normal. Sodium 136, potassium 4.2, chlorides 102, CO2 34, BUN 26, and creatinine 0.28. Glucose is 111. Albumin is 2.6 calcium 8.0. Chest x-ray is largely unchanged. Progress note dated August 25, 2023. 52-year-old female admitted on August 09, with a diagnosis of COPD exacerbation. The patient was intubated on August 12, for respiratory failure. The patient had a tracheostomy tube placed and PEG tube placed, on August 22. She remains on the mechanical ventilator. She is on volume assist-control, rate 18, tidal volume 350, FiO2 35%, PEEP of 5. Blood gases show pO2 of 69, pCO2 of 56, pH is 7.45. The patient is getting saline at 75 cc an hour, Cleveprex is currently off. The patient is also receiving propofol at 50 mcg/kg/min, and fentanyl at 2 mcg/kg/h. In addition, the patient is receiving Versed at 5 mg an hour, and vital, at goal, which is 33 cc an hour. White count is 16.9, hemoglobin 13.7, hematocrit 43, platelet count 233,000. Sodium 136, potassium 4, chlorides 100, CO2 37, BUN 24, creatinine 0.27. Glucose is 91. Calcium is 8. Microbiologic sampling is revealing evidence of Rimma albicans, in sputum, and bronchial washings. The patient's chest x-ray is mostly unchanged. Chronic changes are noted bilaterally. Progress note dated August 26, 2023. The patient is seen today in room 253. She remains on the mechanical ventilator. She is on volume assist-control, rate 18, tidal volume 350, FiO2 35%, PEEP of 5. Blood gases show pO2 74, pCO2 57, pH is 7.46. He is getting saline at 75 cc an hour, she has been on and off of Cleviprex. Currently, Versed is off. The patient continues on fentanyl at 2 mcg/kg/h, and vital AF at 33 cc an hour, which is goal. In addition, the patient's Solu-Medrol was converted to prednisone 40 mg a day. We will add Dilaudid, increase the Ativan frequency, and the patient continues on her antifungal, i.e. Eraxis. White count is 17.7, hemoglobin 12.9, hematocrit 41.4, and platelet count 238,000. Sodium 135, potassium 4, chloride 99, CO2 38, BUN 21, and creatinine 0.25. Magnesium is 2.4. Calcium 7.7. Glucose 148. The patient's chest x-ray is largely unchanged. Progress note dated August 27, 2023. The patient is again seen today in the intensive care unit, room 253. She remains on the volume assist-control mode, rate 18, tidal volume 350, FiO2 35%, PEEP of 5. Blood gases show pO2 79, pCO2 of 60, pH 7.43. The patient is getting saline at 75 cc an hour, propofol at 50 mcg/kg/min, and vital AF at goal, which is 33 cc an hour. White count 14.3, hemoglobin 12.4, hematocrit 39.4, and platelet count normal. Sodium 136, potassium 3.8, chlorides 100, CO2 36, BUN 19, and creatinine 0.33. Glucose is 106. Microbiologic sampling has always been negative, save for Rimma albicans. The patient does continue on a Eraxis. The patient's chest x-ray is largely unchanged. On today's evaluation of 08/28/2023, the patient is being seen for a follow-up. This is a case of advanced COPD maintained on Trelegy Ellipta on outpatient basis along with HIV with low CD4 counts, presented to the hospital with respiratory failure multiple requiring intubation and mechanical ventilation. T he patient is post prolonged ventilator dependent respiratory failure and the patient was given a tracheostomy tube that was inserted on 08/23/2023. Noted the patient was intubated on 08/13/2023. This morning, the patient is on propofol running at 50 mcg/kg/min and the patient will be given a sedation holiday. The patient is also normal sinus rate of 75 cc an hour. She is on assist-control mode at the rate of 18, tidal volume of 350, FiO2 is at 35% with a PEEP of 5. The chest x-ray from today is showing adequate positioning of the tracheostomy tube. The patient also has a right upper extremity PICC line catheter in place. No evidence of any cardiopulmonary abnormalities. No infiltrates or airspace disease. The patient remains on bronchodilators [id number] with DuoNeb updrafts. The patient remains on prednisone 40 mg p.o. daily as part of burst taper. The patient is on Lovenox for DVT prophylaxis. The patient is sitting PEG tube feeding and the patient has a vital AF at a rate of 33 cc an hour. Fluid balance is -1 L over the past 24 hours. No other significant events overnight. The blood gas from today shows a pH of 7.48 with a pCO2 of 56 and pO2 of 93. WBC count of 12.6 with a hemoglobin of 11.7, BUN is at 15 with a creatinine of 0.17 and sodium is at 135 and a potassium level of 3.8. Blood sugars at 83 from this morning. The bronchial wash was positive for Rimma and the patient is currently on Eraxis. On today's evaluation of 08/29/2023, I am seeing the patient for a follow-up. The patient remains on mechanical ventilator and the patient has a tracheostomy tube in place. The patient has been off propofol for the past 24 hours. Currently she is not receiving any form of sedative medications. She is very sluggishly responsive. Unable to communicate. Remains quite obtunded. Could be residual effect of various sedatives given to this patient over the past few weeks. She remains assist-control mode of mechanical ventilation at the rate of 18, tidal volume of 350, FiO2 of 35% with a PEEP of 5. Blood gas with a pH of 7.44 with pCO2 of 39 and pO2 of 122. Chest x-ray shows no acute abnormalities. Is consistent with COPD. Last procedure consolidation. Sodium level is 133 with a potassium level of 3.9, BUN is at 15 with a creatinine of 0.2 and a potassium level is at 3.9. WBC count is at 15.1 with a hemoglobin of 11.4 and a platelet count of 210. Remains on DuoNeb nebulized treatments [id number]. Remains on prednisone 40 mg p.o. daily. Remains on Lovenox for DVT prophylaxis 40 mg subcu on a daily basis. SSI scale coverage and the patient is also receiving enteral feeding for nutritional support with vital AF at the rate of 23 cc an hour through a PEG tube. Cardiac rhythm is sinus. No other significant events over the past 24 hours at this point in time. On today's evaluation of 08/30/2023, the patient seems to be struggling while being on a volume cycle mechanical ventilation. The patient is on a assist-co ntrol of 18, tidal volume of 350, FiO2 of 35% with a PEEP of 5. Chest x-ray remains unchanged. The patient has been off Precedex. The sedation was discontinued 7 AM in the morning. While being off sedation, the patient does not show adequate mentation. She senses painful stimulation. Does not follow any commands. She is profoundly weak and debilitated. She remains in normal sinus rhythm 75 cc an hour. Fluid balance is -3.5 L over the past 24 hours. Blood gas from today show a pH of 7.47 with a pCO2 of 50 and pO2 of 101. The patient is on vital AF at rate of 28 cc an hour. She remains on bronchodilators. She remains on prednisone 40 mg p.o. daily. She is also on Seroquel. Seroquel is being given a dose of 50 mg 3 times daily and the patient is also on Zoloft 50 mg p.o. daily. BuSpar will be also added for increased anxiety. Progress note dated August 31, 2023. The patient is seen today in room 253. The patient has been converted to pressure assist control mode of ventilation. Her inspiratory pressure is 15 cmH2O, and a respiratory time of 0.75 seconds. Her rate is 18, FiO2 35%, PEEP of 5. Currently, she is on saline at 75 cc an hour, vital AF at 38 cc an hour, which is goal, and I have asked the nurse to use Cleviprex, as needed, for blood pressure support. Current laboratory data includes a white count 13.5, hemoglobin 10.9, hematocrit 33.9, and a normal platelet count. Sodium 133, potassium 3.4, chlorides 99, CO2 34, BUN 13, creatinine 0.17. Glucose is 88. Calcium is 7.7. Blood gases are currently pending. Chest x-ray reveals clear lung moralez. There is a midline tracheostomy tube. Objective - Vital Signs Vital signs: Vital Signs Temp 98.0 F 08/31/23 00:00 Pulse 107 H 08/31/23 04:24 Resp 15 08/31/23 03:00 BP 139/95 08/31/23 03:00 Pulse Ox 93 L 08/31/23 03:00 FiO2 35 08/31/23 04:10 Intake & Output 08/30/23 08/30/23 08/31/23 06:59 18:59 06:59 Intake Total 1378 1487.17 928 Output Total 2525 3210 1525 Balance -1147 -1722.83 -597 Weight 71.9 kg 71.9 kg 66.4 kg Intake: IV 1014 936 624 Normal Saline Pressure 39 36 24 Bag Sodium Chloride 0.9% 1, 975 900 600 000 ml @ 75 mls/hr IV . [id number] [facility] Rx#:[id number] Intake, IV Titration 33.17 0 Amount Clevidipine Butyrate 25 0 mg In Empty Bag 1 bag @ 1 MG/HR 2 mls/hr IV .Q24H [facility] Rx#:[id number] Dexmedetomidine/0.9% NaCl 33.17 (Pmx) 400 mcg In Empty Bag 1 bag @ 0.2 MCG/KG/HR 3.91 mls/hr IV .Q24H [facility] Rx#:[id number] Oral 70 Tube Feeding 364 358 304 Other 90 Output: Urine 2525 3210 1525 Other: Voiding Method Indwelling Catheter Indwelling Catheter Indwelling Catheter # Bowel Movements 2 ABP, PAP, CO, CI - Last Documented Arterial Blood Pressure 167/79 - Exam No acute distress, off sedation, with an midline tracheostomy tube. HEENT examination is grossly unremarkable. Neck supple. Full range of motion. No adenopathy thyromegaly or neck vein distention. Cardiovascular examination reveals regular rhythm rate. S1-S2 normal. No S3 or S4. No discernible murmur noted. Heart sounds are distant. Heart rate 100 bpm. Lungs reveal scattered bilateral rhonchi. No wheezes or crackles. Breath sounds equal. Saturations are 94 % Abdomen soft, with bowel sounds. No masses or tenderness. PEG tube is noted. Extremities are intact. No cyanosis clubbing or edema. Skin is without rash or lesion. Neurologic examination is improved. - Labs CBC & Chem 7: 08/31/23 04:21 08/31/23 04:21 Labs: Abnormal Lab Results - Last 24 Hours (Table) 08/30/23 08/30/23 08/31/23 Range/Units 11:26 16:57 00:03 WBC (3.8-10.6) k/uL RBC (3.80-5.40) m/uL Hgb (11.4-16.0) gm/dL Hct (34.0-46.0) % Sodium (137-145) mmol/L Potassium (3.5-5.1) mmol/L Carbon Dioxide (22-30) mmol/L Creatinine (0.52-1.04) mg/dL POC Glucose (mg/dL) 125 H 137 H 60 L (70-110) mg/dL Calcium (8.4-10.2) mg/dL 08/31/23 08/31/23 08/31/23 Range/Units 00:57 01:00 04:21 WBC 13.5 H (3.8-10.6) k/uL RBC 3.42 L (3.80-5.40) m/uL Hgb 10.9 L (11.4-16.0) gm/dL Hct 33.9 L (34.0-46.0) % Sodium (137-145) mmol/L Potassium (3.5-5.1) mmol/L Carbon Dioxide (22-30) mmol/L Creatinine (0.52-1.04) mg/dL POC Glucose (mg/dL) 41 L 131 H (70-110) mg/dL Calcium (8.4-10.2) mg/dL 08/31/23 Range/Units 04:21 WBC (3.8-10.6) k/uL RBC (3.80-5.40) m/uL Hgb (11.4-16.0) gm/dL Hct (34.0-46.0) % Sodium 133 L (137-145) mmol/L Potassium 3.4 L (3.5-5.1) mmol/L Carbon Dioxide 34 H (22-30) mmol/L Creatinine 0.17 L (0.52-1.04) mg/dL POC Glucose (mg/dL) (70-110) mg/dL Calcium 7.7 L (8.4-10.2) mg/dL Assessment and Plan Assessment: Acute exacerbation of chronic COPD, failed outpatient treatment despite being on antibiotics and steroids. The patient failed inpatient BiPAP therapy and the patient ultimately was intubated on 08/13/2023 and the patient is a tracheostomy tube insertion on 08/23/2023 for prolonged ventilator dependent respiratory failure. Chest x-ray remains free of any pulm pulmonary infiltrates. Bronchoscopy yielded Rimma and the patient is currently on Eraxis. Prolonged respiratory failure requiring intubation and mechanical ventilation and tracheostomy tube for ongoing respiratory support. Adequate oxygenation and ventilation on today's blood gases. Chest x-ray shows no acute abnormalities and is consistent with COPD. Acute hypoxic/hypercapnic respiratory failure secondary to above, remains on mechanical ventilator for respiratory support. Advanced COPD at baseline and the patient has been maintained on Trelegy Ellipta on outpatient basis History of smoking History of HIV currently on Biktarvy. Viral count and CD4 counts are not known. No previous history of a persistent infections. The patient has not been receiving any form of antibiotic treatments such as Bactrim. Her infectious disease doctor is Dr. Salguero. The CD4 count is at 81 Enteral feeding for nutritional support and the patient was given a PEG tube Left upper lobe pulmonary nodule measuring 9 mm in size, nonspecific finding. Encephalopathy, likely drug-induced and monitoring the mental status. The patient is still requiring sedation on and off. Precedex was discontinued this morning at around 7:00. 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 Plan: Plan dated August 21, 2023. The patient has not really made any headway towards weaning and extubation. She was intubated on August 12. She has not been intubated for 9 days. Will ask surgery for tracheostomy and PEG tube placement. Patient continues on propofol, fentanyl, and Versed. She is receiving tube feedings. Blood gases have been reviewed. Labs, x-rays, and all medications are reviewed. Prognosis is guarded. We will continue to follow make recommendations along the way. Plan dated August 22, 2023. The patient's tube feeds are on hold, for anticipated tracheostomy tube placement and PEG tube placement today. The patient has a very high peak airway pressure 37 cm of water, and a plateau pressure of 20. The large peak to plateau difference, suggest increased airway resistance. Labs, x-rays, and medications are reviewed. The patient is maintained on propofol, fentanyl, and Versed. Blood gases show pO2 of 80, pCO2 of 67, and a pH of 7.42. Labs, x- rays, medications are reviewed. Prognosis is certainly guarded. We will continue to follow the patient, and make recommendations along the way. Plan dated August 23, 2023. The patient is supposed to go to the operating room today, for tracheostomy t ube, and feeding tube/PEG tube. In addition, we will ask interventional radiology to place a PICC line on this patient. The patient continues on saline at 75 cc an hour, Versed at 6 mg an hour, propofol at 55 mcg/kg/min, and fentanyl at 1.5 mcg/kg/h. In addition, blood gases show pO2 of 91, pCO2 of 63, and a pH of 7.44. Labs, x-rays, and medications are reviewed. The patient's overall prognosis remains guarded. We will continue to follow the patient, and make recommendations along the way. Plan dated August 24, 2023. The patient had a tracheostomy and PEG tube placed yesterday. The patient will have a PICC line placed today. The patient continues on the ventilator. Gases show a pO2 of 76, pCO2 of 63, pH is 7.41. The patient continues on Versed 4 mg an hour, saline at 75 cc an hour, propofol at 40 mcg/kg/min, and fentanyl at 1.5 mcg/kg/h. Labs, x-rays, and medications are reviewed. We will continue to follow the patient, make recommendations along the way. Prognosis is certainly very guarded. Plan dated August 25, 2023. The patient continues on appropriate antibiotics. In addition, we will add some Ativan 1 mg every 6 hours, down the PEG tube, to see if we can get the patient off of the Versed drip. Labs, x-rays, and medications are reviewed. Blood gases are reasonable with a pO2 of 69, pCO2 of 56, pH is 7.45. The patient continues on propofol, fentanyl, and Versed. The patient is receiving tube feedings at goal. The patient is also getting saline at 75 cc an hour. The patient's overall prognosis remains very guarded. We will continue to follow and make recommendations along the way. Plan dated August 26, 2023. The patient is seen today in room 253. The patient continues on the mechanical ventilator. In addition, she continues on saline at 75 cc an hour. Throughout the night, she has been on and off of Cleviprex. Currently, the Versed has been weaned off. She continues on fentanyl at 2 mcg/kg/h. She is also getting tube feedings at goal, which is 33 cc an hour. We will add Dilaudid to the regimen, and increase the frequency of Ativan. In addition, we will convert the Solu- Medrol to prednisone. The patient does continue on Eraxis. Labs, x-rays, and medications are reviewed. The patient's overall prognosis remains very guarded. We will continue to follow and make recommendations where appropriate. Plan dated August 27, 2023. The patient is seen today in room 253. The patient continues on mechanical ventilator. The patient continues on propofol at 50 mcg/kg/min. Will start Seroquel 50 mg 3 times a day. She continues on Eraxis as per infectious diseases. We will check a chest x-ray today. In addition to the propofol, she continues on Dilaudid, and Ativan. We have been able to wean her off the Versed, and the fentanyl. She continues on tube feedings at 33 cc an hour, which is goal. Labs x-rays, and medications are reviewed. We will continue to follow make recommendations were appropriate. Prognosis is certainly guarded. Plan dated August 31, 2023. Keep the patient off Precedex and monitor the mentation. Add BuSpar for increased anxiety Continue Seroquel and Zoloft Continue ventilator support and switch this patient to pressure control mode of mechanical ventilation at rate of 18, pressure control of 15, PEEP of 5 and an inspiratory time of 0.8. Will keep the patient off sedative medications for now and monitor mental status. Continue bronchodilators Continue prednisone burst taper, currently on 40 mg Continue Eraxis There is profound weakness along with encephalopathy this patient. This could be a drug-induced encephalopathy due to the large dose of medication the patient received for sedation. Continue Lovenox for DVT prophylaxis Continue enteral feeding for nutritional support Rest of the medication will be kept unchanged including Biktarvy for HIV treatment Prognosis remains poor. Will continue to follow make further recommendations based on her progress. Will try to transfer this patient to select specialty. Is going to be a very difficult wean. Patient is profoundly weak and debilitated. Mental status is also an ongoing issue although I believe that this is still part related to metabolic encephalopathy/drug-induced encephalopathy. Cleviprex as needed for blood pressure control. Time with Patient: Greater than 30
--- NOTE | 2023-08-31 08:22 | XR ---
EXAMINATION TYPE: XR chest 1V portable DATE OF EXAM: 08/31/2023 COMPARISON: 08/30/2023 INDICATION: Mechanical ventilation TECHNIQUE: Single frontal view of the chest is obtained. Patient is rotated to the right FINDINGS: The heart size is normal. The pulmonary vasculature is normal. The lungs are clear. Catheter enters on the right with tip in the superior vena cava region. Tracheostomy tube is in the m idline. IMPRESSION: 1. No acute pulmonary process.
[2023-08-31] MEDS: POTASSIUM CHLORIDE 10 MEQ in WATER FOR INJECTION 1 100ML.BAG IVPB SCH (08:35)
--- NOTE | 2023-08-31 09:59 | P.PN ---
Subjective Progress Note Date: 08/31/23 CHIEF COMPLAINT: Respiratory failure HISTORY OF PRESENT ILLNESS: Patient remains in the ICU on mechanical ventilation. She is status post tracheostomy and PEG tube placement. Patient is tolerating tube feeds. Tube feeds are at 38 mL/h. Afebrile PHYSICAL EXAM: VITAL SIGNS: Reviewed. GENERAL: no acute distress. HEENT: Trach site clean, dry no leak currently ABDOMEN: Soft. Nondistended. Nontender. PEG tube site clean dry and intact NEUROLOGIC: Intubated and sedated ASSESSMENT: 1. Acute hypoxic respiratory failure with difficulty to wean from the vent 2. COPD exacerbation 3. Moderate protein calorie malnutrition 4. History of HIV PLAN: -Continue tube feeds -Continue to monitor tracheostomy -Continue ICU management -Continue supportive care Physician [place] Superintendent note has been reviewed by physician. Signing provider agrees with the documented findings, assessment, and plan of care. Objective - Vital Signs Vital signs: Vital Signs Temp 98.6 F 08/31/23 08:00 Pulse 134 H 08/31/23 09:00 Resp 17 08/31/23 09:00 BP 110/62 08/31/23 09:00 Pulse Ox 100 08/31/23 09:00 FiO2 35 08/31/23 08:00 Intake & Output 08/30/23 08/31/23 08/31/23 18:59 06:59 18:59 Intake Total 1487.17 1276.933 508 Output Total 3210 2150 275 Balance -1722.83 -873.067 233 Weight 71.9 kg 66.4 kg Intake: IV 936 858 234 Normal Saline Pressure 36 33 9 Bag Sodium Chloride 0.9% 1, 900 825 225 000 ml @ 75 mls/hr IV . [id number] [facility] Rx#:[id number] Intake, IV Titration 33.17 0.933 100 Amount Clevidipine Butyrate 25 0.933 mg In Empty Bag 1 bag @ 1 MG/HR 2 mls/hr IV .Q24H [facility] Rx#:[id number] Dexmedetomidine/0.9% NaCl 33.17 (Pmx) 400 mcg In Empty Bag 1 bag @ 0.2 MCG/KG/HR 3.91 mls/hr IV .Q24H [facility] Rx#:[id number] Potassium Chloride 10 meq 100 In Water For Injection 1 100ml.bag @ 100 mls/hr IVPB Q1HR [facility] Rx#: [id number] Oral 70 Tube Feeding 358 418 114 Other 90 60 Output: Urine 3210 2150 275 Other: Voiding Method Indwelling Catheter Indwelling Catheter # Bowel Movements 1 ABP, PAP, CO, CI - Last Documented Arterial Blood Pressure 117/67 - Labs CBC & Chem 7: 08/31/23 04:21 08/31/23 04:21 Labs: Abnormal Lab Results - Last 24 Hours (Table) 08/30/23 08/30/23 08/31/23 Range/Units 11:26 16:57 00:03 WBC (3.8-10.6) k/uL RBC (3.80-5.40) m/uL Hgb (11.4-16.0) gm/dL Hct (34.0-46.0) % ABG pH (7.35-7.45) ABG pO2 (83-108) mmHg ABG HCO3 (21-25) mmol/L ABG Total CO2 (19-24) mmol/L ABG O2 Saturation (94-97) % Sodium (137-145) mmol/L Potassium (3.5-5.1) mmol/L Carbon Dioxide (22-30) mmol/L Creatinine (0.52-1.04) mg/dL POC Glucose (mg/dL) 125 H 137 H 60 L (70-110) mg/dL Calcium (8.4-10.2) mg/dL 08/31/23 08/31/23 08/31/23 Range/Units 00:57 01:00 04:21 WBC 13.5 H (3.8-10.6) k/uL RBC 3.42 L (3.80-5.40) m/uL Hgb 10.9 L (11.4-16.0) gm/dL Hct 33.9 L (34.0-46.0) % ABG pH (7.35-7.45) ABG pO2 (83-108) mmHg ABG HCO3 (21-25) mmol/L ABG Total CO2 (19-24) mmol/L ABG O2 Saturation (94-97) % Sodium (137-145) mmol/L Potassium (3.5-5.1) mmol/L Carbon Dioxide (22-30) mmol/L Creatinine (0.52-1.04) mg/dL POC Glucose (mg/dL) 41 L 131 H (70-110) mg/dL Calcium (8.4-10.2) mg/dL 08/31/23 08/31/23 Range/Units 04:21 06:04 WBC (3.8-10.6) k/uL RBC (3.80-5.40) m/uL Hgb (11.4-16.0) gm/dL Hct (34.0-46.0) % ABG pH 7.49 H (7.35-7.45) ABG pO2 112 H (83-108) mmHg ABG HCO3 34 H (21-25) mmol/L ABG Total CO2 36 H (19-24) mmol/L ABG O2 Saturation 98.9 H (94-97) % Sodium 133 L (137-145) mmol/L Potassium 3.4 L (3.5-5.1) mmol/L Carbon Dioxide 34 H (22-30) mmol/L Creatinine 0.17 L (0.52-1.04) mg/dL POC Glucose (mg/dL) (70-110) mg/dL Calcium 7.7 L (8.4-10.2) mg/dL
[2023-08-31 12:00] LABS: Glucose,Whole Blood 141 mg/dL (70-110)
--- NOTE | 2023-08-31 13:45 | P.PN ---
Subjective 52-year-old female who initially came into the hospital due to difficulty breathing and cough. Patient was found to have significant COPD exacerbation and required intubation. She continues in the intensive care unit she is on the mechanical ventilator with an FiO2 of 35% with a PEEP of 5. She is currently on an IV Versed and IV fentanyl infusion as well as IV Solu-Medrol. She is currently sedated with propofol. patient is maintained on Biktarvy also for history of HIV. On enteral feedings. Chest x-ray today shows improved aeration of the lung bases. Labs today reveal a white blood cell count of 11.6, sodium 133, BUN of 23, creatinine of 0.29. Her glucose is in the 120s to 130s range. CO2 of 40. Sputum culture was found to be positive for Rimma. She is being considered for trach and PEG tube placement. 08/22/2023 Patient evaluated in follow up today in the ICU. Remains on the mechanical ventilator with FiO2 of 35% and PEEP of 5. Patient is scheduled for PEG/Trach placement today. Remains on IV fentanyl, IV versed, IV propofol, IV solumedrol. Patient is being hydrated with normal saline. Chest xray today shows no focal infiltrates. 08/23/2023 Patient remains in the intensive care unit. Patient is currently on the [facility] ventilator. Patient underwent trach and PEG tube placement today. Remains on IV fentanyl, IV versed, IV propofol, IV solumedrol. Patient remains on Biktarvy. Unable to be considered for rehab or select specialty at this time due to the cost of the Biktarvy medication which will need to be continued at this time. White blood cell count today 13.4, sodium 136, BUN 19, creatinine 0.30. CO2 level 42. Blood glucose 170. 08/24/2023 Patient is evaluated today in the ICU. Patient is postoperative trach and peg tube placement. Remains on mechanical ventilator with FiO2 of 35% and PEEP of 5. Currently on IV fentanyl, IV versed, IV propofol and remains on high dose IV solumedrol. Sputum culture was positive for rimma patient is having worsening WBC today is 15k and ID has recommended to start the patient on IV anidulafungin. Patient is being hydrated with normal saline running at 75 m ls/hr. Tube feedings were placed on hold for the PEG tube placement and are to be resumed today. 08/25/2023 Patient evaluated today in the ICU, patient remains on the mechanical ventilator. White blood cell count up to 16.9. Continues on IV anidulafungin. Chest xray today reveals chronic changes without acute cardiopulmonary disease. Patient on IV precedex, IV fentanyl, IV versed, IV propofol. Remains on normal saline. Continues on high dose IV solumedrol. Resumed on enteral feedings. 08/26/2023 Patient seen in follow-up continues to be in the ICU with multiple medical consultations following. Patient remains on mechanical ventilation with an FiO2 of 35%. Patient is currently weaned off Cleviprex and continues on fentanyl. Patient also maintained on antifungal with infectious disease following. Tube feedings at goal and patient is tolerating. Patient is afebrile although white count continues to remain elevated, possibly steroid effect and patient is being transition to oral prednisone. Continue with breathing inhalational treatments and follow-up on chest x-ray. 08/27/23 : Patient seen and evaluated in medical ICU vitals reviewed, blood work reviewed WBC 14.3, arterial blood gas reviewed pH 7.43/pCO2 60/pO2 79/serum chemistry sodium 136 BUN 19 creatinine 0.33 calcium of 7.4 08/28/23: Patient seen and evaluated at bedside, patient remains on ventilator through trach, vitals reviewed, FiO2 35% and arterial blood gas reviewed, serum chemistry showed sodium 135 creatinine 0.17 calcium of 7.4 blood glucose of 77, continue antifungal, infectious disease following. Patient transition to Precedex, propofol weaned off 08/29/23: Patient seen and evaluated bedside, planning to wean off ventilator, serial ABGs obtained, spontaneous breathing trial done, serum chemistry reviewed sodium 133, carbon dioxide 38, arterial blood gas shows metabolic alkalosis with respiratory compensation, continue management and medical ICU. 08/30/2023 Patient is a sleepy, she was still on Precedex when seen in the morning Tracheostomy on mechanical ventilation, PEEP of 5 and FiO2 of 35% Blood pressure is 81/35, heart rate 92 Patient has Ortiz catheter with clear yellow urine. Fecal management system. Mild leukocytosis of 12.9 Sputum culture growing Rimma, patient currently on Eraxis and nystatin Also on prednisone 40 mg for her severe COPD seen on CT of the chest Patient also on HIV treatment and normal saline 75 mL/h 08/31/2023 Patient s/p tracheostomy, patient nonverbal today but she open her eyes spontaneously after stopping Precedex yesterday. She able to follow simple commands slowly for example opening her mouth. Other exam is restricted. Patient is still generally weak She is still treated for her pneumonia and COPD exacerbation with Eraxis for culture positive for Rimma and also she is on prednisone 40 mg taper She is to receive HIV medication which is her home medication no other new complaint Plan to discharge to select with pulmonary team recommendation will follow closely for her pneumonia and respiratory failure other medical problem Objective - Vital Signs Vital signs: Vital Signs Temp 98.6 F 08/31/23 08:00 Pulse 85 08/31/23 11:18 Resp 18 08/31/23 11:00 BP 95/54 08/31/23 11:00 Pulse Ox 100 08/31/23 11:00 FiO2 35 08/31/23 11:06 Intake & Output 08/30/23 08/31/23 08/31/23 18:59 06:59 18:59 Intake Total 1487.17 1276.933 940 Output Total 3210 2150 815 Balance -1722.83 -873.067 125 Weight 71.9 kg 66.4 kg Intake: IV 936 858 390 Normal Saline Pressure 36 33 15 Bag Sodium Chloride 0.9% 1, 900 825 375 000 ml @ 75 mls/hr IV . [id number] [facility] Rx#:[id number] Intake, IV Titration 33.17 0.933 300 Amount Clevidipine Butyrate 25 0.933 mg In Empty Bag 1 bag @ 1 MG/HR 2 mls/hr IV .Q24H [facility] Rx#:[id number] Dexmedetomidine/0.9% NaCl 33.17 (Pmx) 400 mcg In Empty Bag 1 bag @ 0.2 MCG/KG/HR 3.91 mls/hr IV .Q24H [facility] Rx#:[id number] Potassium Chloride 10 meq 300 In Water For Injection 1 100ml.bag @ 100 mls/hr IVPB Q1HR [facility] Rx#: [id number] Oral 70 Tube Feeding 358 418 190 Other 90 60 Output: Urine 3210 2150 815 Other: Voiding Method Indwelling Catheter Indwelling Catheter Indwelling Catheter # Bowel Movements 1 ABP, PAP, CO, CI - Last Documented Arterial Blood Pressure 83/47 - Exam -GENERAL: The patient is sleepy HEENT: Pupils are round and equally reacting to light. EOMI. No scleral icterus. No conjunctival pallor. Normocephalic, atraumatic. No pharyngeal erythema. No thyromegaly. CARDIOVASCULAR: S1 and S2 present. No murmurs, rubs, or gallops. -PULMONARY: Chest is clear to auscultation, no wheezing , no crackles. S/p trach collar, on mechanical ventilation ABDOMEN: Soft, nontender, nondistended, normoactive bowel sounds. No palpable organomegaly. MUSCULOSKELETAL: No joint swelling or deformity. EXTREMITIES: No cyanosis, clubbing, or pedal edema. NEUROLOGICAL: Gross neurological examination did not reveal any focal deficits. SKIN: No rashes. no petechiae. - Labs CBC & Chem 7: 08/31/23 04:21 08/31/23 04:21 Labs: Abnormal Lab Results - Last 24 Hours (Table) 08/30/23 08/31/23 08/31/23 Range/Units 16:57 00:03 00:57 WBC (3.8-10.6) k/uL RBC (3.80-5.40) m/uL Hgb (11.4-16.0) gm/dL Hct (34.0-46.0) % ABG pH (7.35-7.45) ABG pO2 (83-108) mmHg ABG HCO3 (21-25) mmol/L ABG Total CO2 (19-24) mmol/L ABG O2 Saturation (94-97) % Sodium (137-145) mmol/L Potassium (3.5-5.1) mmol/L Carbon Dioxide (22-30) mmol/L Creatinine (0.52-1.04) mg/dL POC Glucose (mg/dL) 137 H 60 L 41 L (70-110) mg/dL Calcium (8.4-10.2) mg/dL 08/31/23 08/31/23 08/31/23 Range/Units 01:00 04:21 04:21 WBC 13.5 H (3.8-10.6) k/uL RBC 3.42 L (3.80-5.40) m/uL Hgb 10.9 L (11.4-16.0) gm/dL Hct 33.9 L (34.0-46.0) % ABG pH (7.35-7.45) ABG pO2 (83-108) mmHg ABG HCO3 (21-25) mmol/L ABG Total CO2 (19-24) mmol/L ABG O2 Saturation (94-97) % Sodium 133 L (137-145) mmol/L Potassium 3.4 L (3.5-5.1) mmol/L Carbon Dioxide 34 H (22-30) mmol/L Creatinine 0.17 L (0.52-1.04) mg/dL POC Glucose (mg/dL) 131 H (70-110) mg/dL Calcium 7.7 L (8.4-10.2) mg/dL 08/31/23 08/31/23 Range/Units 06:04 11:57 WBC (3.8-10.6) k/uL RBC (3.80-5.40) m/uL Hgb (11.4-16.0) gm/dL Hct (34.0-46.0) % ABG pH 7.49 H (7.35-7.45) ABG pO2 112 H (83-108) mmHg ABG HCO3 34 H (21-25) mmol/L ABG Total CO2 36 H (19-24) mmol/L ABG O2 Saturation 98.9 H (94-97) % Sodium (137-145) mmol/L Potassium (3.5-5.1) mmol/L Carbon Dioxide (22-30) mmol/L Creatinine (0.52-1.04) mg/dL POC Glucose (mg/dL) 141 H (70-110) mg/dL Calcium (8.4-10.2) mg/dL Assessment and Plan Assessment: * Acute hypoxemic hypercapnic respiratory failure requiring intubation on 08/12 status post PEG tube and tracheostomy placement, S/p tracheostomy * Acute exacerbation of COPD * metabolic toxic encephalopathy * Patient with right inferior temporal infarct * Multifocal pneumonia, with Rimma albicans * Left upper lobe nodule , spiculated ,require PET scan at a later stage * HIV currently on Biktarvy. Viral count and CD4 counts are not known. No previous history of a persistent infections. The patient has not been receiving any form of antibiotic treatments such as Bactrim. Her infectious disease doctor is Dr. Salguero. The CD4 count is at 81 * Moderate protein calorie malnutrition * Chronic nicotine use Plan: Patient remains on mechanical ventilation with pulmonary/critical care team on the case Patient remains on sedation Remains on antifungal treatment with Eraxis and nystatin Continue with prednisone 40 mg Continue with normal saline 75 mL/h HIV treatment biktravy Pulmonary, infectious disease and general surgery team on the case Labs and medication were reviewed.. Monitor labs and vitals. DVT and GI prophylaxis. Further recommendations as per clinical course of the patient DVT prophylaxis: Subcutaneous Lovenoxheparin GI Prophylaxis: Pepcid Prognosis is guarded
[2023-08-31 18:03] LABS: Glucose,Whole Blood 127 mg/dL (70-110)
[2023-09-01] MEDS ORDERED: Potassium Replacement Protocol 1 EACH MISC MISCELLANE PRN (00:03)
[2023-09-01 00:58] LABS: Glucose,Whole Blood 88 mg/dL (70-110)
[2023-09-01] MEDS: POTASSIUM CHLORIDE ER 20 MEQ TAB.ER PO SCH ×2 (01:18→20:17)
[2023-09-01 05:31] LABS: Glucose,Whole Blood 85 mg/dL (70-110)
[2023-09-01 05:44] LABS: ABG Base Excess 10.3 mmol/L; ABG HCO3 34 mmol/L (21-25); ABG Oxygen Saturation 98.9 % (94-97); ABG PCO2 45 mmHg (35-45); ABG PH 7.48 (7.35-7.45); ABG PO2 118 mmHg (83-108); ABG TCO2 35 mmol/L (19-24); Allen Test Performed? Yes
[2023-09-01 06:28] LABS: HCT 31.7 % (34.0-46.0); HGB 10.5 gm/dL (11.4-16.0); MCH 32.4 pg (25.0-35.0); MCHC 33.2 g/dL (31.0-37.0); MCV 97.5 fL (80.0-100.0); Mean Platelet Volume 7.7; Platelet Count 249 k/uL (150-450); RBC 3.25 m/uL (3.80-5.40); RDW 13.8 % (11.5-15.5); WBC 9.7 k/uL (3.8-10.6)
[2023-09-01 06:34] LABS: African American GFR (CKD) >90 (>60 ml/min/1.73 sqM); Anion Gap 1 mmol/L; Blood Urea Nitrogen 12 mg/dL (7-17); Calcium 8.2 mg/dL (8.4-10.2); Carbon Dioxide 32 mmol/L (22-30); Chloride 99 mmol/L (98-107); Glucose 93 mg/dL (74-99); Non-African American GFR(CKD) >90 (>60 ml/min/1.73 sqM); Potassium 3.6 mmol/L (3.5-5.1); Sodium 132 mmol/L (137-145)
[2023-09-01] MEDS: POTASSIUM CHLORIDE 10 MEQ in WATER FOR INJECTION 1 100ML.BAG IVPB SCH (08:06)
--- NOTE | 2023-09-01 09:08 | P.PN ---
Subjective Progress Note Date: 08/29/23 Principal diagnosis: Reason for follow-up is HIV and possible pneumonia Patient is a 52-year-old female with a past medical history significant for HIV on Biktarvy, also with a history of COPD presenting to the hospital for evaluation of increasing shortness of breath patient did have worsening respiratory status got intubated, patient did have a CT angiogram of the chest that was negative for PE did shows a lung nodule did not mention any infiltrate or consolidation.Patient is status post tracheostomy completed on 08/23/2023 On today's evaluation that is 08/29/2023,the patient remains to be afebrile, patient is on the vent FiO2 is currently stable at 35% no significant purulent secretions through the ET patient has been tolerating her tube feeds and no diarrhea has been reported. Patient white count is 13.1, creatinine 0.20 Objective - Vital Signs Vital signs: Vital Signs Temp 98.6 F 08/29/23 10:00 Pulse 98 08/29/23 13:00 Resp 16 08/29/23 13:00 BP 110/76 08/29/23 12:00 Pulse Ox 100 08/29/23 13:00 FiO2 35 08/29/23 12:27 Intake & Output 08/28/23 08/29/23 08/29/23 18:59 06:59 18:59 Intake Total 1592.909 7499.907 708.858 Output Total 3675 2900 2400 Balance -1977.213 -1546.093 -1691.142 Weight 78.2 kg 77 kg Intake: IV 1214 936 468 Anidulafungin 100 mg In 100 Sodium Chloride 0.9% 100 ml @ 84 mls/hr IVPB DAILY @1600 [facility] Rx#:[id number] Normal Saline Pressure 39 36 18 Bag Potassium Chloride 10 meq 100 In Water For Injection 1 100ml.bag @ 100 mls/hr IVPB Q1H [facility] Rx#: [id number] Sodium Chloride 0.9% 1, 975 900 450 000 ml @ 75 mls/hr IV . [id number] [facility] Rx#:[id number] Intake, IV Titration 14.787 77.907 14.858 Amount Clevidipine Butyrate 25 7.167 mg In Empty Bag 1 bag @ 1 MG/HR 2 mls/hr IV .Q24H [facility] Rx#:[id number] Dexmedetomidine/0.9% NaCl 77.907 14.858 (Pmx) 400 mcg In Empty Bag 1 bag @ 0.2 MCG/KG/HR 3.91 mls/hr IV .Q24H [facility] Rx#:[id number] propofoL 1,000 mg In 7.620 Empty Bag 1 bag @ 15 MCG/ KG/MIN 5.715 mls/hr IV . [id number] [facility] Rx#:[id number] Tube Feeding 379 280 196 Other 90 60 30 Output: Urine 3675 2900 2400 Other: Voiding Method Indwelling Catheter Indwelling Catheter Indwelling Catheter # Bowel Movements 1 1 ABP, PAP, CO, CI - Last Documented Arterial Blood Pressure 86/47 - Exam GENERAL DESCRIPTION: Middle-aged female intubated on the vent through the trach RESPIRATORY SYSTEM: Unlabored breathing , decreased breath sounds at bases HEART: S1 S2 regular rate and rhythm , ABDOMEN: Soft , no tenderness EXTREMITIES: No edema feet - Labs CBC & Chem 7: 09/01/23 05:47 09/01/23 05:47 Labs: Abnormal Lab Results - Last 24 Hours (Table) 08/28/23 08/29/23 08/29/23 Range/Units 17:40 04:42 04:42 WBC 13.1 H (3.8-10.6) k/uL RBC 3.62 L (3.80-5.40) m/uL MCV 100.5 H (80.0-100.0) fL ABG pCO2 (35-45) mmHg ABG pO2 (83-108) mmHg ABG HCO3 (21-25) mmol/L ABG Total CO2 (19-24) mmol/L ABG O2 Saturation (94-97) % Sodium 133 L (137-145) mmol/L Carbon Dioxide 38 H (22-30) mmol/L Creatinine 0.20 L (0.52-1.04) mg/dL Glucose 106 H (74-99) mg/dL POC Glucose (mg/dL) 114 H (70-110) mg/dL Calcium 7.6 L (8.4-10.2) mg/dL 08/29/23 08/29/23 Range/Units 05:00 11:09 WBC (3.8-10.6) k/uL RBC (3.80-5.40) m/uL MCV (80.0-100.0) fL ABG pCO2 59 H (35-45) mmHg ABG pO2 122 H (83-108) mmHg ABG HCO3 40 H* (21-25) mmol/L ABG Total CO2 41 H (19-24) mmol/L ABG O2 Saturation 99.0 H (94-97) % Sodium (137-145) mmol/L Carbon Dioxide (22-30) mmol/L Creatinine (0.52-1.04) mg/dL Glucose (74-99) mg/dL POC Glucose (mg/dL) 135 H (70-110) mg/dL Calcium (8.4-10.2) mg/dL Microbiology - Last 24 Hours (Table) 08/13/23 13:30 Acid Fast Bacilli Smear - Preliminary Sputum Acid Fast Bacilli Culture - Preliminary Assessment and Plan (1) Acute respiratory failure Current Visit: Yes Status: Acute Code(s): J96.00 - ACUTE RESPIRATORY FAILURE, UNSP W HYPOXIA OR HYPERCAPNIA SNOMED Code(s): 02266488 (2) HIV disease Current Visit: No Status: Acute Code(s): B20 - HUMAN IMMUNODEFICIENCY VIRUS [HIV] DISEASE SNOMED Code(s): 10635318 Plan: 1patient presented to hospital with increasing shortness of breath which is likely multifactorial in this patient who did have a history of COPD and likely COPD is a patient with a tracheobronchitis underlying pneumonia less likely but not entirely excluded 2-patient did have a CT angiogram of the chest that was negative for PE did not show any evidence of pneumonia or interstitial infiltrate 3-patient did have a penicillin allergy that will limit the number of an tibiotics safe to use 4-patient to continue with Biktarvy for HIV 5-patient sputum is growing Rimma which is likely colonization however the patient did have worsening of the white count could be component of oropharyngeal candidiasis 6-we will continue the patient on Eraxis and monitor white count closely Dictation was produced using [employer] dictation software. please excuse any grammatical, word or spelling errors. Time with Patient: Less than 30
--- NOTE | 2023-09-01 09:09 | P.PN ---
Subjective Progress Note Date: 08/30/23 Principal diagnosis: Reason for follow-up is HIV and possible pneumonia Patient is a 52-year-old female with a past medical history significant for HIV on Biktarvy, also with a history of COPD presenting to the hospital for evaluation of increasing shortness of breath patient did have worsening respiratory status got intubated, patient did have a CT angiogram of the chest that was negative for PE did shows a lung nodule did not mention any infiltrate or consolidation.Patient is status post tracheostomy completed on 08/23/2023 On today's evaluation that is 08/30/2023, the patient continues to be afebrile, the patient is on the vent intubated through the trach no significant purulent secretions through the ET patient not requiring any pressor support and no other changes reported by nursing staff Patient white count is down to 12.9, creatinine is 0.18 Objective - Vital Signs Vital signs: Vital Signs Temp 98.2 F 08/30/23 12:00 Pulse 89 08/30/23 12:00 Resp 18 08/30/23 12:00 BP 92/59 08/30/23 12:00 Pulse Ox 99 08/30/23 12:00 FiO2 35 08/30/23 12:00 Intake & Output 08/29/23 08/30/23 08/30/23 18:59 06:59 18:59 Intake Total 6062.258 1469 635.17 Output Total 3560 2525 900 Balance -2201.142 -1147 -264.83 Weight 71.9 kg Intake: IV 858 1014 390 Normal Saline Pressure 33 39 15 Bag Sodium Chloride 0.9% 1, 825 975 375 000 ml @ 75 mls/hr IV . [id number] [facility] Rx#:[id number] Intake, IV Titration 14.858 33.17 Amount Dexmedetomidine/0.9% NaCl 14.858 33.17 (Pmx) 400 mcg In Empty Bag 1 bag @ 0.2 MCG/KG/HR 3.91 mls/hr IV .Q24H [facility] Rx#:[id number] Oral 70 Tube Feeding 336 364 112 Other 150 30 Output: Urine 3560 2525 900 Other: Voiding Method Indwelling Catheter Indwelling Catheter Indwelling Catheter # Bowel Movements 2 ABP, PAP, CO, CI - Last Documented Arterial Blood Pressure 111/51 - Exam GENERAL DESCRIPTION: Middle-aged female intubated on the vent through the trach RESPIRATORY SYSTEM: Unlabored breathing , decreased breath sounds at bases HEART: S1 S2 regular rate and rhythm , ABDOMEN: Soft , no tenderness EXTREMITIES: No edema feet - Labs CBC & Chem 7: 09/01/23 05:47 09/01/23 05:47 Labs: Abnormal Lab Results - Last 24 Hours (Table) 08/29/23 08/30/23 08/30/23 Range/Units 17:46 04:35 04:35 WBC 12.9 H (3.8-10.6) k/uL RBC 3.61 L (3.80-5.40) m/uL ABG pH (7.35-7.45) ABG pCO2 (35-45) mmHg ABG HCO3 (21-25) mmol/L ABG Total CO2 (19-24) mmol/L ABG O2 Saturation (94-97) % Sodium 131 L (137-145) mmol/L Chloride 97 L (98-107) mmol/L Carbon Dioxide 37 H (22-30) mmol/L Creatinine 0.18 L (0.52-1.04) mg/dL POC Glucose (mg/dL) 143 H (70-110) mg/dL Calcium 7.8 L (8.4-10.2) mg/dL 08/30/23 08/30/23 08/30/23 Range/Units 04:45 05:13 05:38 WBC (3.8-10.6) k/uL RBC (3.80-5.40) m/uL ABG pH 7.47 H (7.35-7.45) ABG pCO2 50 H (35-45) mmHg ABG HCO3 37 H (21-25) mmol/L ABG Total CO2 38 H (19-24) mmol/L ABG O2 Saturation 98.5 H (94-97) % Sodium (137-145) mmol/L Chloride (98-107) mmol/L Carbon Dioxide (22-30) mmol/L Creatinine (0.52-1.04) mg/dL POC Glucose (mg/dL) 68 L 122 H (70-110) mg/dL Calcium (8.4-10.2) mg/dL 08/30/23 Range/Units 11:26 WBC (3.8-10.6) k/uL RBC (3.80-5.40) m/uL ABG pH (7.35-7.45) ABG pCO2 (35-45) mmHg ABG HCO3 (21-25) mmol/L ABG Total CO2 (19-24) mmol/L ABG O2 Saturation (94-97) % Sodium (137-145) mmol/L Chloride (98-107) mmol/L Carbon Dioxide (22-30) mmol/L Creatinine (0.52-1.04) mg/dL POC Glucose (mg/dL) 125 H (70-110) mg/dL Calcium (8.4-10.2) mg/dL Assessment and Plan (1) Acute respiratory failure Current Visit: Yes Status: Acute Code(s): J96.00 - ACUTE RESPIRATORY FAILURE, UNSP W HYPOXIA OR HYPERCAPNIA SNOMED Code(s): 29063912 (2) HIV disease Current Visit: No Status: Acute Code(s): B20 - HUMAN IMMUNODEFICIENCY VIRUS [HIV] DISEASE SNOMED Code(s): 56012350 Plan: 1patient presented to hospital with increasing shortness of breath which is likely multifactorial in this patient who did have a history of COPD and likely COPD is a patient with a tracheobronchitis underlying pneumonia less likely but not entirely excluded 2-patient did have a CT angiogram of the chest that was negative for PE did not show any evidence of pneumonia or interstitial infiltrate 3-patient did have a penicillin allergy that will limit the number of antibiotics safe to use 4-patient to continue with Biktarvy for HIV 5-patient sputum is growing Rimma which is likely colonization however the patient did have worsening of the white count could be component of oropharyngeal candidiasis 6-patient white count is trending down continue with Eraxis and monitor clinical course closely Dictation was produced using [employer] dictation software. please excuse any grammatical, word or spelling errors. Time with Patient: Less than 30
--- NOTE | 2023-09-01 09:10 | P.PN ---
Subjective Progress Note Date: 08/31/23 Principal diagnosis: Reason for follow-up is HIV and possible pneumonia Patient is a 52-year-old female with a past medical history significant for HIV on Biktarvy, also with a history of COPD presenting to the hospital for evaluation of increasing shortness of breath patient did have worsening respiratory status got intubated, patient did have a CT angiogram of the chest that was negative for PE did shows a lung nodule did not mention any infiltrate or consolidation.Patient is status post tracheostomy completed on 08/23/2023 On today's evaluation that is 08/31/2023, Patient is afebrile patient is currently intubated on the vent through the trach patient FiO2 is stable at 35% patient seem to be slightly more awake and try to communicate but hard to understand still having some diarrhea however the patient has had multiple laxatives Patient white count slightly up to 13.5, creatinine 0.17 Objective - Vital Signs Vital signs: Vital Signs Temp 98.6 F 08/31/23 08:00 Pulse 81 08/31/23 14:00 Resp 18 08/31/23 14:00 BP 138/86 08/31/23 14:00 Pulse Ox 100 08/31/23 14:00 FiO2 35 08/31/23 12:00 Intake & Output 08/30/23 08/31/23 08/31/23 18:59 06:59 18:59 Intake Total 1487.17 5834.964 8778 Output Total 3210 2150 1989 Balance -1722.83 -873.067 -572 Weight 71.9 kg 66.4 kg Intake: IV 936 858 624 Normal Saline Pressure 36 33 24 Bag Sodium Chloride 0.9% 1, 900 825 600 000 ml @ 75 mls/hr IV . [id number] [facility] Rx#:[id number] Intake, IV Titration 33.17 0.933 400 Amount Clevidipine Butyrate 25 0.933 mg In Empty Bag 1 bag @ 1 MG/HR 2 mls/hr IV .Q24H [facility] Rx#:[id number] Dexmedetomidine/0.9% NaCl 33.17 (Pmx) 400 mcg In Empty Bag 1 bag @ 0.2 MCG/KG/HR 3.91 mls/hr IV .Q24H [facility] Rx#:[id number] Potassium Chloride 10 meq 400 In Water For Injection 1 100ml.bag @ 100 mls/hr IVPB Q1HR [facility] Rx#: [id number] Oral 70 Tube Feeding 358 418 304 Other 90 90 Output: Urine 3210 2150 1989 Other: Voiding Method Indwelling Catheter Indwelling Catheter Indwelling Catheter # Bowel Movements 1 ABP, PAP, CO, CI - Last Documented Arterial Blood Pressure 95/54 - Exam GENERAL DESCRIPTION: Middle-aged female intubated on the vent through the trach RESPIRATORY SYSTEM: Unlabored breathing , decreased breath sounds at bases HEART: S1 S2 regular rate and rhythm , ABDOMEN: Soft , no tenderness EXTREMITIES: No edema feet - Labs CBC & Chem 7: 09/01/23 05:47 09/01/23 05:47 Labs: Abnormal Lab Results - Last 24 Hours (Table) 08/30/23 08/31/23 08/31/23 Range/Units 16:57 00:03 00:57 WBC (3.8-10.6) k/uL RBC (3.80-5.40) m/uL Hgb (11.4-16.0) gm/dL Hct (34.0-46.0) % ABG pH (7.35-7.45) ABG pO2 (83-108) mmHg ABG HCO3 (21-25) mmol/L ABG Total CO2 (19-24) mmol/L ABG O2 Saturation (94-97) % Sodium (137-145) mmol/L Potassium (3.5-5.1) mmol/L Carbon Dioxide (22-30) mmol/L Creatinine (0.52-1.04) mg/dL POC Glucose (mg/dL) 137 H 60 L 41 L (70-110) mg/dL Calcium (8.4-10.2) mg/dL 08/31/23 08/31/23 08/31/23 Range/Units 01:00 04:21 04:21 WBC 13.5 H (3.8-10.6) k/uL RBC 3.42 L (3.80-5.40) m/uL Hgb 10.9 L (11.4-16.0) gm/dL Hct 33.9 L (34.0-46.0) % ABG pH (7.35-7.45) ABG pO2 (83-108) mmHg ABG HCO3 (21-25) mmol/L ABG Total CO2 (19-24) mmol/L ABG O2 Saturation (94-97) % Sodium 133 L (137-145) mmol/L Potassium 3.4 L (3.5-5.1) mmol/L Carbon Dioxide 34 H (22-30) mmol/L Creatinine 0.17 L (0.52-1.04) mg/dL POC Glucose (mg/dL) 131 H (70-110) mg/dL Calcium 7.7 L (8.4-10.2) mg/dL 08/31/23 08/31/23 Range/Units 06:04 11:57 WBC (3.8-10.6) k/uL RBC (3.80-5.40) m/uL Hgb (11.4-16.0) gm/dL Hct (34.0-46.0) % ABG pH 7.49 H (7.35-7.45) ABG pO2 112 H (83-108) mmHg ABG HCO3 34 H (21-25) mmol/L ABG Total CO2 36 H (19-24) mmol/L ABG O2 Saturation 98.9 H (94-97) % Sodium (137-145) mmol/L Potassium (3.5-5.1) mmol/L Carbon Dioxide (22-30) mmol/L Creatinine (0.52-1.04) mg/dL POC Glucose (mg/dL) 141 H (70-110) mg/dL Calcium (8.4-10.2) mg/dL Assessment and Plan (1) Acute respiratory failure Current Visit: Yes Status: Acute Code(s): J96.00 - ACUTE RESPIRATORY FAILURE, UNSP W HYPOXIA OR HYPERCAPNIA SNOMED Code(s): 66553131 (2) HIV disease Current Visit: No Status: Acute Code(s): B20 - HUMAN IMMUNODEFICIENCY VIRUS [HIV] DISEASE SNOMED Code(s): 20248635 Plan: 1patient presented to hospital with increasing shortness of breath which is likely multifactorial in this patient who did have a history of COPD and likely COPD is a patient with a tracheobronchitis underlying pneumonia less likely but not entirely excluded 2-patient did have a CT angiogram of the chest that was negative for PE did not show any evidence of pneumonia or interstitial infiltrate 3-patient did have a penicillin allergy that will limit the number of antibiotics safe to use 4-patient to continue with Biktarvy for HIV 5-patient sputum is growing Rimma which is likely colonization however the patient did have worsening of the white count could be component of oropharyngeal candidiasis 6-patient to continue with Eraxis will repeat CBC with a.m. labs and monitor clinical course closely Dictation was produced using [employer] dictation software. please excuse any grammatical, word or spelling errors. Time with Patient: Less than 30
--- NOTE | 2023-09-01 09:24 | XR ---
EXAMINATION TYPE: XR chest 1V portable DATE OF EXAM: 09/01/2023 5:25 AM CLINICAL INDICATION:Female, 52 years old with history of vent; COMPARISON: Chest radiographs from 08/31/2023. TECHNIQUE: XR chest 1V portable Frontal view of the chest. FINDINGS: Lungs/Pleura: There is no evidence of pleural effusion, focal consolidation, or pneumothorax. Pulmonary vascularity: Unremarkable. Heart/mediastinum: Cardiomediastinal silhouette is unremarkable. Musculoskeletal: No acute osseous pathology. Other findings: None Lines/Tubes: Tracheostomy cannula tip projecting over the trachea. IMPRESSION: No acute cardiopulmonary disease/process.
[2023-09-01] MEDS: FUROSEMIDE 10 MG/ML 4 ML VIAL IV STA (10:12)
--- NOTE | 2023-09-01 12:00 | P.PN ---
Subjective Progress Note Date: 09/01/23 CHIEF COMPLAINT: Respiratory failure HISTORY OF PRESENT ILLNESS: Patient remains in the ICU on mechanical ventilation. She is status post tracheostomy and PEG tube placement. Patient is tolerating tube feeds. Tube feeds are at 48 mL/h. Afebrile PHYSICAL EXAM: VITAL SIGNS: Reviewed. GENERAL: no acute distress. HEENT: Trach site clean, dry no leak currently ABDOMEN: Soft. Nondistended. Nontender. PEG tube site clean dry and intact ASSESSMENT: 1. Acute hypoxic respiratory failure with difficulty to wean from the vent 2. COPD exacerbation 3. Moderate protein calorie malnutrition 4. History of HIV PLAN: -Continue tube feeds -Continue to monitor tracheostomy -Continue ICU management -Continue supportive care Physician Drying Unit Felting Machine Operator note has been reviewed by physician. Signing provider agrees with the documented findings, assessment, and plan of care. Objective - Vital Signs Vital signs: Vital Signs Temp 98.3 F 09/01/23 08:00 Pulse 122 H 09/01/23 11:56 Resp 17 09/01/23 11:00 BP 153/92 09/01/23 10:00 Pulse Ox 92 L 09/01/23 11:00 FiO2 35 09/01/23 11:11 Intake & Output 08/31/23 09/01/23 09/01/23 18:59 06:59 18:59 Intake Total 1882 1412 430 Output Total 3190 2825 1045 Balance -1308 -1413 -615 Weight 62.6 kg Intake: IV 936 936 182 Normal Saline Pressure 36 36 12 Bag Sodium Chloride 0.9% 1, 900 900 170 000 ml @ 20 mls/hr IV . Q24H [facility] Rx#:[id number] Intake, IV Titration 400 200 Amount Potassium Chloride 10 meq 200 In Water For Injection 1 100ml.bag @ 100 mls/hr IVPB Q1H [facility] Rx#: [id number] Potassium Chloride 10 meq 400 In Water For Injection 1 100ml.bag @ 100 mls/hr IVPB Q1HR [facility] Rx#: [id number] Tube Feeding 456 476 48 Other 90 Output: Urine 3190 2825 1045 Other: Voiding Method Indwelling Catheter Indwelling Catheter Indwelling Catheter # Bowel Movements 1 1 ABP, PAP, CO, CI - Last Documented Arterial Blood Pressure 133/72 - Labs CBC & Chem 7: 09/01/23 05:47 09/01/23 05:47 Labs: Abnormal Lab Results - Last 24 Hours (Table) 08/31/23 08/31/23 09/01/23 Range/Units 11:57 18:01 05:39 RBC (3.80-5.40) m/uL Hgb (11.4-16.0) gm/dL Hct (34.0-46.0) % ABG pH 7.48 H (7.35-7.45) ABG pO2 118 H (83-108) mmHg ABG HCO3 34 H (21-25) mmol/L ABG Total CO2 35 H (19-24) mmol/L ABG O2 Saturation 98.9 H (94-97) % Sodium (137-145) mmol/L Carbon Dioxide (22-30) mmol/L Creatinine (0.52-1.04) mg/dL POC Glucose (mg/dL) 141 H 127 H (70-110) mg/dL Calcium (8.4-10.2) mg/dL 09/01/23 09/01/23 Range/Units 05:47 05:47 RBC 3.25 L (3.80-5.40) m/uL Hgb 10.5 L (11.4-16.0) gm/dL Hct 31.7 L (34.0-46.0) % ABG pH (7.35-7.45) ABG pO2 (83-108) mmHg ABG HCO3 (21-25) mmol/L ABG Total CO2 (19-24) mmol/L ABG O2 Saturation (94-97) % Sodium 132 L (137-145) mmol/L Carbon Dioxide 32 H (22-30) mmol/L Creatinine 0.18 L (0.52-1.04) mg/dL POC Glucose (mg/dL) (70-110) mg/dL Calcium 8.2 L (8.4-10.2) mg/dL
[2023-09-01 12:08] LABS: Magnesium 1.8 mg/dL (1.6-2.3)
[2023-09-01 12:21] LABS: Glucose,Whole Blood 147 mg/dL (70-110)
--- NOTE | 2023-09-01 13:07 | P.PN ---
Subjective Progress Note Date: 09/01/23 On today's evaluation of 08/28/2023, the patient is being seen for a follow-up. This is a case of advanced COPD maintained on Trelegy Ellipta on outpatient basis along with HIV with low CD4 counts, presented to the hospital with respiratory failure multiple requiring intubation and mechanical ventilation. The patient is post prolonged ventilator dependent respiratory failure and the patient was given a tracheostomy tube that was inserted on 08/23/2023. Noted the patient was intubated on 08/13/2023. This morning, the patient is on propofol running at 50 mcg/kg/min and the patient will be given a sedation holiday. The patient is also normal sinus rate of 75 cc an hour. She is on assist-control mode at the rate of 18, tidal volume of 350, FiO2 is at 35% with a PEEP of 5. The chest x-ray from today is showing adequate positioning of the tracheostomy tube. The patient also has a right upper extremity PICC line catheter in place. No evidence of any cardiopulmonary abnormalities. No infiltrates or airspace disease. The patient remains on bronchodilators [id number] with Karen cramer. The patient remains on prednisone 40 mg p.o. daily as part of burst taper. The patient is on Lovenox for DVT prophylaxis. The patient is sitting PEG tube feeding and the patient has a vital AF at a rate of 33 cc an hour. Fluid balance is -1 L over the past 24 hours. No other significant events overnight. The blood gas from today shows a pH of 7.48 with a pCO2 of 56 and pO2 of 93. WBC count of 12.6 with a hemoglobin of 11.7, BUN is at 15 with a creatinine of 0.17 and sodium is at 135 and a potassium level of 3.8. Blood sugars at 83 from this morning. The bronchial wash was positive for Rimma and the patient is currently on Eraxis. On today's evaluation of 08/29/2023, I am seeing the patient for a follow-up. The patient remains on mechanical ventilator and the patient has a tracheostomy tube in place. The patient has been off propofol for the past 24 hours. Currently she is not receiving any form of sedative medications. She is very sluggishly responsive. Unable to communicate. Remains quite obtunded. Could be residual effect of various sedatives given to this patient over the past few weeks. She remains assist-control mode of mechanical ventilation at the rate of 18, tidal volume of 350, FiO2 of 35% with a PEEP of 5. Blood gas with a pH of 7.44 with pCO2 of 39 and pO2 of 122. Chest x-ray shows no acute abnormalities. Is consistent with COPD. Last procedure consolidation. Sodium level is 133 with a potassium level of 3.9, BUN is at 15 with a creatinine of 0.2 and a potassium level is at 3.9. WBC count is at 15.1 with a hemoglobin of 11.4 and a platelet count of 210. Remains on DuoNeb nebulized treatments [id number]. Remains on prednisone 40 mg p.o. daily. Remains on Lovenox for DVT prophylaxis 40 mg subcu on a daily basis. SSI scale coverage and the patient is also receiving enteral feeding for nutritional support with vital AF at the rate of 23 cc an hour through a PEG tube. Cardiac rhythm is sinus. No other significant events over the past 24 hours at this point in time. On today's evaluation of 08/30/2023, the patient seems to be struggling while being on a volume cycle mechanical ventilation. The patient is on a assist- control of 18, tidal volume of 350, FiO2 of 35% with a PEEP of 5. Chest x-ray remains unchanged. The patient has been off Precedex. The sedation was discontinued 7 AM in the morning. While being off sedation, the patient does not show adequate mentation. She senses painful stimulation. Does not follow any commands. She is profoundly weak and debilitated. She remains in normal sinus rhythm 75 cc an hour. Fluid balance is -3.5 L over the past 24 hours. Blood gas from today show a pH of 7.47 with a pCO2 of 50 and pO2 of 101. The patient is on vital AF at rate of 28 cc an hour. She remains on bronchodilators. She remains on prednisone 40 mg p.o. daily. She is also on Seroquel. Seroquel is being given a dose of 50 mg 3 times daily and the patient is also on Zoloft 50 mg p.o. daily. BuSpar will be also added for increased anxiety. On 09/01/2023, the patient is being seen for a follow-up. 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 Nevertheless, the patient is very comfortable in her breathing. She is off sedation for the past 48 hours. She is currently on a pressure control mode of mechanical ventilation at rate of 18, with a pressure control of 15, FiO2 35% with a PEEP of 5. Blood gas showed pH of 7.48 with a pCO2 of 45 and pO2 of 118. Chest x-ray from today shows no acute abnormalities. The patient has a tracheostomy tube in place. No significant orotracheal secretions. Hemodynamically stable. Receiving vital AF at rate of 40 cc an hour. She has a fecal management system in place and she has some liquidy stool. Overall fluid balance is -2.5 L over the past 24 hours and the patient is producing excess amount of urine output. WBC count at 9.7 hemoglobin 10.5 and a platelet count of 249. BUN is at 12 with a creatinine of 0.18 and a sodium level is at 132. Responsive, able to communicate and answer questions appropriately. No significant agitation. Objective - Vital Signs Vital signs: Vital Signs Temp 99.2 F 09/01/23 04:00 Pulse 116 H 09/01/23 08:52 Resp 18 09/01/23 07:00 BP 144/102 09/01/23 07:00 Pulse Ox 100 09/01/23 07:00 FiO2 35 09/01/23 07:58 Intake & Output 08/31/23 09/01/23 09/01/23 18:59 06:59 18:59 Intake Total 1882 1412 126 Output Total 3190 2825 300 Balance -1308 -1413 -174 Weight 62.6 kg Intake: IV 936 936 78 Normal Saline Pressure 36 36 3 Bag Sodium Chloride 0.9% 1, 900 900 75 000 ml @ 75 mls/hr IV . [id number] FREDO Rx#:[id number] Intake, IV Titration 400 Amount Potassium Chloride 10 meq 400 In Water For Injection 1 100ml.bag @ 100 mls/hr IVPB Q1HR [facility]O Rx#: [id number] Tube Feeding 456 476 48 Other 90 Output: Urine 3190 2825 300 Other: Voiding Method Indwelling Catheter Indwelling Catheter # Bowel Movements 1 1 ABP, PAP, CO, CI - Last Documented Arterial Blood Pressure 124/67 - Exam Patient is currently sedated and calm and comfortable on the mechanical ventilator. Tracheostomy tube in place. Lethargic, currently off sedation. Communicating and alert and the patient is currently off sedatives. Head exam was generally normal. There was no scleral icterus or corneal arcus. Mucous membranes were moist. Neck was supple and without jugular venous distension, thyromegaly, or carotid bruits. Carotids were easily palpable bilaterally. There was no adenopathy. The patient is tracheostomy tube in place and exit site is dry clean and intact and patient has a number HI tracheostomy tube in place Lung sounds are diminished and the patient has a barrel chest. Marked diminished breath sound bilaterally patient lung bases. Scattered expiratory wheezes also appreciated. There is prolongation of exhalation phase of breathing and marked diminished breath sounds bilaterally. Cardiac exam revealed the PMI to be normally situated and sized. The rhythm was regular and no extrasystoles were noted during several minutes of auscultation. The first and second heart sounds were normal and physiologic splitting of the second heart sound was noted. There were no murmurs, rubs, clicks, or gallops. Abdominal exam revealed normal bowel sounds. The abdomen was soft, non-tender, and without masses, organomegaly, or appreciable enlargement of the abdominal aorta. PEG tube site is dry clean and intact Examination of the extremities revealed easily palpable radial, femoral and pedal pulses. There was no cyanosis, clubbing or edema. Examination of the skin revealed no evidence of significant rashes, suspicious appearing nevi or other concerning lesions. Neurologically, the patient is awake and alert. Significant motor weakness in all 4 extremities. Pupils are equal reactive to light. No facial asymmetry. - Labs CBC & Chem 7: 09/01/23 05:47 09/01/23 11:45 Labs: Abnormal Lab Results - Last 24 Hours (Table) 08/31/23 08/31/23 09/01/23 Range/Units 11:57 18:01 05:39 RBC (3.80-5.40) m/uL Hgb (11.4-16.0) gm/dL Hct (34.0-46.0) % ABG pH 7.48 H (7.35-7.45) ABG pO2 118 H (83-108) mmHg ABG HCO3 34 H (21-25) mmol/L ABG Total CO2 35 H (19-24) mmol/L ABG O2 Saturation 98.9 H (94-97) % Sodium (137-145) mmol/L Carbon Dioxide (22-30) mmol/L Creatinine (0.52-1.04) mg/dL POC Glucose (mg/dL) 141 H 127 H (70-110) mg/dL Calcium (8.4-10.2) mg/dL 09/01/23 09/01/23 Range/Units 05:47 05:47 RBC 3.25 L (3.80-5.40) m/uL Hgb 10.5 L (11.4-16.0) gm/dL Hct 31.7 L (34.0-46.0) % ABG pH (7.35-7.45) ABG pO2 (83-108) mmHg ABG HCO3 (21-25) mmol/L ABG Total CO2 (19-24) mmol/L ABG O2 Saturation (94-97) % Sodium 132 L (137-145) mmol/L Carbon Dioxide 32 H (22-30) mmol/L Creatinine 0.18 L (0.52-1.04) mg/dL POC Glucose (mg/dL) (70-110) mg/dL Calcium 8.2 L (8.4-10.2) mg/dL Assessment and Plan Plan: Acute exacerbation of chronic COPD, failed outpatient treatment despite being on antibiotics and steroids. The patient failed inpatient BiPAP therapy and the patient ultimately was intubated on 08/13/2023 and the patient is a tracheostomy tube insertion on 08/23/2023 for prolonged ventilator dependent respiratory fa ilure. Chest x-ray remains free of any pulm pulmonary infiltrates. Bronchoscopy yielded Rimma and the patient is currently on Eraxis. The patient is currently on pressure control mode of mechanical ventilation. Breathing comfortably, chest x-ray is adequate. Blood gas is also adequate. Prolonged respiratory failure requiring intubation and mechanical ventilation and tracheostomy tube for ongoing respiratory support. Adequate oxygenation and ventilation on today's blood gases. Chest x-ray shows no acute abnormalities and is consistent with COPD. Acute hypoxic/hypercapnic respiratory failure secondary to above, remains on mechanical ventilator for respiratory support. The patient is post tracheostomy tube insertion Advanced COPD at baseline and the patient has been maintained on Trelegy Ellipta on outpatient basis History of smoking History of HIV currently on Biktarvy. Viral count and CD4 counts are not known. No previous history of a persistent infections. The patient has not been receiving any form of antibiotic treatments such as Bactrim. Her infectious disease doctor is Dr. Salguero. The CD4 count is at 81 Enteral feeding for nutritional support and the patient was given a PEG tube Left upper lobe pulmonary nodule measuring 9 mm in size, nonspecific finding. Encephalopathy, likely drug-induced and monitoring the mental status. The patient is still requiring sedation on and off. Precedex was discontinued this morning at around 7:00. 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 Plan Keep the patient off sedatives Continue BuSpar for increased anxiety Continue Seroquel and Zoloft Switch this patient to a pressure support mode of mechanical ventilation with a pressure support of 7 and a PEEP of 5 IV fluids will be switched to KVO Decrease the prednisone down to 20 mg p.o. daily Mental status is adequate and the patient has profound weakness in all 4 extremities. She would benefit from aggressive physical therapy. Continue bronchodilators Continue prednisone burst taper, currently on 40 mg Continue Lovenox for DVT prophylaxis Continue enteral feeding for nutritional support Rest of the medication will be kept unchanged including Biktarvy for HIV treatment Prognosis remains poor. Will continue to follow make further recommendations based on her progress. Good candidate for select specialty and appropriate consultation will be done. She will need obviously prolonged weaning and rehabilitation. Condition is critical. This evaluation was done more than 30 minutes. Time with Patient: Greater than 30
[2023-09-01] MEDS ORDERED: Magnesium Replacement Protocol 1 EACH MISC MISCELLANE PRN (14:32)
[2023-09-01] MEDS: MAGNESIUM SULFATE-D5W PMX 1 GM in DEXTROSE/WATER 1 100ML.BAG IVPB ONE (14:46)
[2023-09-01 17:51] LABS: Glucose,Whole Blood 147 mg/dL (70-110)
--- NOTE | 2023-09-01 19:32 | P.PN ---
Subjective 52-year-old female who initially came into the hospital due to difficulty breathing and cough. Patient was found to have significant COPD exacerbation and required intubation. She continues in the intensive care unit she is on the mechanical ventilator with an FiO2 of 35% with a PEEP of 5. She is currently on an IV Versed and IV fentanyl infusion as well as IV Solu-Medrol. She is currently sedated with propofol. patient is maintained on Biktarvy also for history of HIV. On enteral feedings. Chest x-ray today shows improved aeration of the lung bases. Labs today reveal a white blood cell count of 11.6, sodium 133, BUN of 23, creatinine of 0.29. Her glucose is in the 120s to 130s range. CO2 of 40. Sputum culture was found to be positive for Rimma. She is being considered for trach and PEG tube placement. 08/22/2023 Patient evaluated in follow up today in the ICU. Remains on the mechanical ventilator with FiO2 of 35% and PEEP of 5. Patient is scheduled for PEG/Trach placement today. Remains on IV fentanyl, IV versed, IV propofol, IV solumedrol. Patient is being hydrated with normal saline. Chest xray today shows no focal infiltrates. 08/23/2023 Patient remains in the intensive care unit. Patient is currently on the [facility] ventilator. Patient underwent trach and PEG tube placement today. Remains on IV fentanyl, IV versed, IV propofol, IV solumedrol. Patient remains on Biktarvy. Unable to be considered for rehab or select specialty at this time due to the cost of the Biktarvy medication which will need to be continued at this time. White blood cell count today 13.4, sodium 136, BUN 19, creatinine 0.30. CO2 level 42. Blood glucose 170. 08/24/2023 Patient is evaluated today in the ICU. Patient is postoperative trach and peg tube placement. Remains on mechanical ventilator with FiO2 of 35% and PEEP of 5. Currently on IV fentanyl, IV versed, IV propofol and remains on high dose IV solumedrol. Sputum culture was positive for rimma patient is having worsening WBC today is 15k and ID has recommended to start the patient on IV anidulafungin. Patient is being hydrated with normal saline running at 75 m ls/hr. Tube feedings were placed on hold for the PEG tube placement and are to be resumed today. 08/25/2023 Patient evaluated today in the ICU, patient remains on the mechanical ventilator. White blood cell count up to 16.9. Continues on IV anidulafungin. Chest xray today reveals chronic changes without acute cardiopulmonary disease. Patient on IV precedex, IV fentanyl, IV versed, IV propofol. Remains on normal saline. Continues on high dose IV solumedrol. Resumed on enteral feedings. 08/26/2023 Patient seen in follow-up continues to be in the ICU with multiple medical consultations following. Patient remains on mechanical ventilation with an FiO2 of 35%. Patient is currently weaned off Cleviprex and continues on fentanyl. Patient also maintained on antifungal with infectious disease following. Tube feedings at goal and patient is tolerating. Patient is afebrile although white count continues to remain elevated, possibly steroid effect and patient is being transition to oral prednisone. Continue with breathing inhalational treatments and follow-up on chest x-ray. 08/27/23 : Patient seen and evaluated in medical ICU vitals reviewed, blood work reviewed WBC 14.3, arterial blood gas reviewed pH 7.43/pCO2 60/pO2 79/serum chemistry sodium 136 BUN 19 creatinine 0.33 calcium of 7.4 08/28/23: Patient seen and evaluated at bedside, patient remains on ventilator through trach, vitals reviewed, FiO2 35% and arterial blood gas reviewed, serum chemistry showed sodium 135 creatinine 0.17 calcium of 7.4 blood glucose of 77, continue antifungal, infectious disease following. Patient transition to Precedex, propofol weaned off 08/29/23: Patient seen and evaluated bedside, planning to wean off ventilator, serial ABGs obtained, spontaneous breathing trial done, serum chemistry reviewed sodium 133, carbon dioxide 38, arterial blood gas shows metabolic alkalosis with respiratory compensation, continue management and medical ICU. 08/30/2023 Patient is a sleepy, she was still on Precedex when seen in the morning Tracheostomy on mechanical ventilation, PEEP of 5 and FiO2 of 35% Blood pressure is 81/35, heart rate 92 Patient has Ortiz catheter with clear yellow urine. Fecal management system. Mild leukocytosis of 12.9 Sputum culture growing Rimma, patient currently on Eraxis and nystatin Also on prednisone 40 mg for her severe COPD seen on CT of the chest Patient also on HIV treatment and normal saline 75 mL/h 08/31/2023 Patient s/p tracheostomy, patient nonverbal today but she open her eyes spontaneously after stopping Precedex yesterday. She able to follow simple commands slowly for example opening her mouth. Other exam is restricted. Patient is still generally weak She is still treated for her pneumonia and COPD exacerbation with Eraxis for culture positive for Rimma and also she is on prednisone 40 mg taper She is to receive HIV medication which is her home medication no other new complaint Plan to discharge to select with pulmonary team recommendation will follow closely for her pneumonia and respiratory failure other medical problem 09/01/2023 Patient today is awake and interactive however nonverbal because of the tracheostomy. 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 We will check creatinine kinase tomorrow She remains on Eraxis and nystatin orally. Prednisone dose lowered to 20 mg today and WBC came back to normal at 9.7. Hemoglobin stable. She remains for HIV treatment Objective - Vital Signs Vital signs: Vital Signs Temp 98.9 F 09/01/23 12:00 Pulse 110 H 09/01/23 13:00 Resp 18 09/01/23 13:00 BP 153/92 09/01/23 10:00 Pulse Ox 99 09/01/23 13:00 FiO2 35 09/01/23 12:00 Intake & Output 08/31/23 09/01/23 09/01/23 18:59 06:59 18:59 Intake Total 1882 1412 476 Output Total 3190 2825 3245 Balance -8781 -4600 -9149 Weight 62.6 kg 62.6 kg Intake: IV 936 936 228 Normal Saline Pressure 36 36 18 Bag Sodium Chloride 0.9% 1, 900 900 210 000 ml @ 20 mls/hr IV . Q24H [facility] Rx#:[id number] Intake, IV Titration 400 200 Amount Potassium Chloride 10 meq 200 In Water For Injection 1 100ml.bag @ 100 mls/hr IVPB Q1H [facility] Rx#: [id number] Potassium Chloride 10 meq 400 In Water For Injection 1 100ml.bag @ 100 mls/hr IVPB Q1HR [facility]O Rx#: [id number] Tube Feeding 456 476 48 Other 90 Output: Urine 3190 2825 3245 Other: Voiding Method Indwelling Catheter Indwelling Catheter Indwelling Catheter # Bowel Movements 1 1 ABP, PAP, CO, CI - Last Documented Arterial Blood Pressure 97/51 - Exam -GENERAL: The patient is sleepy HEENT: Pupils are round and equally reacting to light. EOMI. No scleral icterus. No conjunctival pallor. Normocephalic, atraumatic. No pharyngeal erythema. No thyromegaly. CARDIOVASCULAR: S1 and S2 present. No murmurs, rubs, or gallops. -PULMONARY: Chest is clear to auscultation, no wheezing , no crackles. S/p trach collar, on mechanical ventilation ABDOMEN: Soft, nontender, nondistended, normoactive bowel sounds. No palpable organomegaly. MUSCULOSKELETAL: No joint swelling or deformity. EXTREMITIES: No cyanosis, clubbing, or pedal edema. NEUROLOGICAL: Gross neurological examination did not reveal any focal deficits. SKIN: No rashes. no petechiae. - Labs CBC & Chem 7: 09/01/23 05:47 09/01/23 18:45 Labs: Abnormal Lab Results - Last 24 Hours (Table) 08/31/23 09/01/23 09/01/23 Range/Units 18:01 05:39 05:47 RBC 3.25 L (3.80-5.40) m/uL Hgb 10.5 L (11.4-16.0) gm/dL Hct 31.7 L (34.0-46.0) % ABG pH 7.48 H (7.35-7.45) ABG pO2 118 H (83-108) mmHg ABG HCO3 34 H (21-25) mmol/L ABG Total CO2 35 H (19-24) mmol/L ABG O2 Saturation 98.9 H (94-97) % Sodium (137-145) mmol/L Carbon Dioxide (22-30) mmol/L Creatinine (0.52-1.04) mg/dL POC Glucose (mg/dL) 127 H (70-110) mg/dL Calcium (8.4-10.2) mg/dL 09/01/23 09/01/23 Range/Units 05:47 12:19 RBC (3.80-5.40) m/uL Hgb (11.4-16.0) gm/dL Hct (34.0-46.0) % ABG pH (7.35-7.45) ABG pO2 (83-108) mmHg ABG HCO3 (21-25) mmol/L ABG Total CO2 (19-24) mmol/L ABG O2 Saturation (94-97) % Sodium 132 L (137-145) mmol/L Carbon Dioxide 32 H (22-30) mmol/L Creatinine 0.18 L (0.52-1.04) mg/dL POC Glucose (mg/dL) 147 H (70-110) mg/dL Calcium 8.2 L (8.4-10.2) mg/dL Assessment and Plan Assessment: * Acute hypoxemic hypercapnic respiratory failure requiring intubation on 08/12 status post PEG tube and tracheostomy placement, S/p tracheostomy * Acute exacerbation of COPD * metabolic toxic encephalopathy * Patient with right inferior temporal infarct * Multifocal pneumonia, with Rimma albicans * Left upper lobe nodule , spiculated ,require PET scan at a later stage * HIV currently on Biktarvy. Viral count and CD4 counts are not known. No previous history of a persistent infections. The patient has not been receiving any form of antibiotic treatments such as Bactrim. Her infectious disease doctor is Dr. Salguero. The CD4 count is at 81 * Moderate protein calorie malnutrition * Chronic nicotine use Plan: Patient remains on mechanical ventilation with pulmonary/critical care team on the case Patient currently is awake Remains on antifungal treatment with Eraxis and nystatin Continue with prednisone 20 mg HIV treatment biktravy Pulmonary, infectious disease and general surgery team on the case Labs and medication were reviewed.. Monitor labs and vitals. DVT and GI prophylaxis. Further recommendations as per clinical course of the patient DVT prophylaxis: Subcutaneous Lovenoxheparin GI Prophylaxis: Pepcid Prognosis is guarded
[2023-09-01 23:42] LABS: Glucose,Whole Blood 105 mg/dL (70-110)
[2023-09-02 06:11] LABS: Glucose,Whole Blood 111 mg/dL (70-110)
[2023-09-02 06:14] LABS: ABG Base Excess 10.2 mmol/L; ABG HCO3 34 mmol/L (21-25); ABG Oxygen Saturation 99.1 % (94-97); ABG PCO2 48 mmHg (35-45); ABG PH 7.46 (7.35-7.45); ABG PO2 131 mmHg (83-108); ABG TCO2 36 mmol/L (19-24); Allen Test Performed? Yes
--- NOTE | 2023-09-02 06:44 | XR ---
EXAMINATION TYPE: XR chest 1V portable DATE OF EXAM: 09/02/2023 COMPARISON: 09/01/2023 HISTORY: Shortness of breath TECHNIQUE: Single frontal view of the chest is obtained. FINDINGS: There is a right-sided PICC line tip which is in the SVC/junction. There is a tracheostomy tube. The lungs are clear. There is no pleural effusion or pneumothorax. Heart and pulmonary vasculature are normal. The osseous structures are intact IMPRESSION: No acute cardiopulmonary disease with no interval change.
[2023-09-02 06:53] LABS: HCT 32.3 % (34.0-46.0); HGB 10.7 gm/dL (11.4-16.0); MCH 32.4 pg (25.0-35.0); MCHC 33.2 g/dL (31.0-37.0); MCV 97.5 fL (80.0-100.0); Mean Platelet Volume 7.6; Platelet Count 285 k/uL (150-450); RBC 3.31 m/uL (3.80-5.40); RDW 13.3 % (11.5-15.5); WBC 8.9 k/uL (3.8-10.6)
[2023-09-02 07:18] LABS: African American GFR (CKD) >90 (>60 ml/min/1.73 sqM); Anion Gap 1 mmol/L; Blood Urea Nitrogen 19 mg/dL (7-17); Carbon Dioxide 33 mmol/L (22-30); Chloride 99 mmol/L (98-107); Glucose 119 mg/dL (74-99); Non-African American GFR(CKD) >90 (>60 ml/min/1.73 sqM); Potassium 3.5 mmol/L (3.5-5.1); Sodium 133 mmol/L (137-145)
--- NOTE | 2023-09-02 07:33 | P.PN ---
Subjective Progress Note Date: 09/01/23 Principal diagnosis: Reason for follow-up is HIV and possible pneumonia Patient is a 52-year-old female with a past medical history significant for HIV on Biktarvy, also with a history of COPD presenting to the hospital for evaluation of increasing shortness of breath patient did have worsening respiratory status got intubated, patient did have a CT angiogram of the chest that was negative for PE did shows a lung nodule did not mention any infiltrate or consolidation.Patient is status post tracheostomy completed on 08/23/2023 On today's evaluation that is 09/01/2023, patient has been afebrile, patient is breathing comfortably and is currently on the vent through the trach FiO2 35% patient is awake and able to communicate with the nursing staff and express need s no vomiting or any worsening diarrhea has been reported. Patient white count is normal at 9.7 creatinine 0.18 Objective - Vital Signs Vital signs: Vital Signs Temp 98.9 F 09/01/23 12:00 Pulse 120 H 09/01/23 12:00 Resp 18 09/01/23 12:00 BP 153/92 09/01/23 10:00 Pulse Ox 99 09/01/23 12:00 FiO2 35 09/01/23 12:00 Intake & Output 08/31/23 09/01/23 09/01/23 18:59 06:59 18:59 Intake Total 1882 1412 476 Output Total 3190 2825 3245 Balance -9398 -6373 -2119 Weight 62.6 kg 62.6 kg Intake: IV 936 936 228 Normal Saline Pressure 36 36 18 Bag Sodium Chloride 0.9% 1, 900 900 210 000 ml @ 20 mls/hr IV . Q24H [facility] Rx#:[id number] Intake, IV Titration 400 200 Amount Potassium Chloride 10 meq 200 In Water For Injection 1 100ml.bag @ 100 mls/hr IVPB Q1H [facility] Rx#: [id number] Potassium Chloride 10 meq 400 In Water For Injection 1 100ml.bag @ 100 mls/hr IVPB Q1HR [facility] Rx#: [id number] Tube Feeding 456 476 48 Other 90 Output: Urine 3190 2825 3245 Other: Voiding Method Indwelling Catheter Indwelling Catheter Indwelling Catheter # Bowel Movements 1 1 ABP, PAP, CO, CI - Last Documented Arterial Blood Pressure 114/61 - Exam GENERAL DESCRIPTION: Middle-aged female intubated on the vent through the trach RESPIRATORY SYSTEM: Unlabored breathing , decreased breath sounds at bases HEART: S1 S2 regular rate and rhythm , ABDOMEN: Soft , no tenderness EXTREMITIES: No edema feet - Labs CBC & Chem 7: 09/02/23 05:00 09/02/23 06:51 Labs: Abnormal Lab Results - Last 24 Hours (Table) 08/31/23 09/01/23 09/01/23 Range/Units 18:01 05:39 05:47 RBC 3.25 L (3.80-5.40) m/uL Hgb 10.5 L (11.4-16.0) gm/dL Hct 31.7 L (34.0-46.0) % ABG pH 7.48 H (7.35-7.45) ABG pO2 118 H (83-108) mmHg ABG HCO3 34 H (21-25) mmol/L ABG Total CO2 35 H (19-24) mmol/L ABG O2 Saturation 98.9 H (94-97) % Sodium (137-145) mmol/L Carbon Dioxide (22-30) mmol/L Creatinine (0.52-1.04) mg/dL POC Glucose (mg/dL) 127 H (70-110) mg/dL Calcium (8.4-10.2) mg/dL 09/01/23 09/01/23 Range/Units 05:47 12:19 RBC (3.80-5.40) m/uL Hgb (11.4-16.0) gm/dL Hct (34.0-46.0) % ABG pH (7.35-7.45) ABG pO2 (83-108) mmHg ABG HCO3 (21-25) mmol/L ABG Total CO2 (19-24) mmol/L ABG O2 Saturation (94-97) % Sodium 132 L (137-145) mmol/L Carbon Dioxide 32 H (22-30) mmol/L Creatinine 0.18 L (0.52-1.04) mg/dL POC Glucose (mg/dL) 147 H (70-110) mg/dL Calcium 8.2 L (8.4-10.2) mg/dL Assessment and Plan (1) Acute respiratory failure Current Visit: Yes Status: Acute Code(s): J96.00 - ACUTE RESPIRATORY FAILURE, UNSP W HYPOXIA OR HYPERCAPNIA SNOMED Code(s): 47555560 (2) HIV disease Current Visit: No Status: Acute Code(s): B20 - HUMAN IMMUNODEFICIENCY VIRUS [HIV] DISEASE SNOMED Code(s): 47960502 Plan: 1patient presented to hospital with increasing shortness of breath which is likely multifactorial in this patient who did have a history of COPD and likely COPD is a patient with a tracheobronchitis underlying pneumonia less likely but not entirely excluded 2-patient did have a CT angiogram of the chest that was negative for PE did not show any evidence of pneumonia or interstitial infiltrate 3-patient did have a penicillin allergy that will limit the number of antibiotics safe to use 4-patient to continue with Biktarvy for HIV 5-patient sputum is growing Rimma which is likely colonization however the patient did have worsening of the white count could be component of oropharyngeal candidiasis, the patient white count has normalized with addition of Eraxis which will be continued and monitor clinical course closely Dictation was produced using [employer] dictation software. please excuse any grammatical, word or spelling errors. Time with Patient: Less than 30
[2023-09-02] MEDS ORDERED: POTASSIUM CHLORIDE ER 20 MEQ TAB.ER PO SCH (08:00)
[2023-09-02] MEDS: predniSONE 20 MG TAB PO SCH (08:33)
[2023-09-02] MEDS: POTASSIUM BICARBONATE/CIT AC 20 MEQ TABLET.EFF NG-TUBE SCH (08:33)
[2023-09-02 11:59] LABS: Glucose,Whole Blood 133 mg/dL (70-110)
--- NOTE | 2023-09-02 12:47 | P.PN ---
Subjective Progress Note Date: 09/02/23 On today's evaluation of 08/28/2023, the patient is being seen for a follow-up. This is a case of advanced COPD maintained on Trelegy Ellipta on outpatient basis along with HIV with low CD4 counts, presented to the hospital with respiratory failure multiple requiring intubation and mechanical ventilation. The patient is post prolonged ventilator dependent respiratory failure and the patient was given a tracheostomy tube that was inserted on 08/23/2023. Noted the patient was intubated on 08/13/2023. This morning, the patient is on propofol running at 50 mcg/kg/min and the patient will be given a sedation holiday. The patient is also normal sinus rate of 75 cc an hour. She is on assist-control mode at the rate of 18, tidal volume of 350, FiO2 is at 35% with a PEEP of 5. The chest x-ray from today is showing adequate positioning of the tracheostomy tube. The patient also has a right upper extremity PICC line catheter in place. No evidence of any cardiopulmonary abnormalities. No infiltrates or airspace disease. The patient remains on bronchodilators [id number] with Karen cramer. The patient remains on prednisone 40 mg p.o. daily as part of burst taper. The patient is on Lovenox for DVT prophylaxis. The patient is sitting PEG tube feeding and the patient has a vital AF at a rate of 33 cc an hour. Fluid balance is -1 L over the past 24 hours. No other significant events overnight. The blood gas from today shows a pH of 7.48 with a pCO2 of 56 and pO2 of 93. WBC count of 12.6 with a hemoglobin of 11.7, BUN is at 15 with a creatinine of 0.17 and sodium is at 135 and a potassium level of 3.8. Blood sugars at 83 from this morning. The bronchial wash was positive for Rimma and the patient is currently on Eraxis. On today's evaluation of 08/29/2023, I am seeing the patient for a follow-up. The patient remains on mechanical ventilator and the patient has a tracheostomy tube in place. The patient has been off propofol for the past 24 hours. Currently she is not receiving any form of sedative medications. She is very sluggishly responsive. Unable to communicate. Remains quite obtunded. Could be residual effect of various sedatives given to this patient over the past few weeks. She remains assist-control mode of mechanical ventilation at the rate of 18, tidal volume of 350, FiO2 of 35% with a PEEP of 5. Blood gas with a pH of 7.44 with pCO2 of 39 and pO2 of 122. Chest x-ray shows no acute abnormalities. Is consistent with COPD. Last procedure consolidation. Sodium level is 133 with a potassium level of 3.9, BUN is at 15 with a creatinine of 0.2 and a potassium level is at 3.9. WBC count is at 15.1 with a hemoglobin of 11.4 and a platelet count of 210. Remains on DuoNeb nebulized treatments [id number]. Remains on prednisone 40 mg p.o. daily. Remains on Lovenox for DVT prophylaxis 40 mg subcu on a daily basis. SSI scale coverage and the patient is also receiving enteral feeding for nutritional support with vital AF at the rate of 23 cc an hour through a PEG tube. Cardiac rhythm is sinus. No other significant events over the past 24 hours at this point in time. On today's evaluation of 08/30/2023, the patient seems to be struggling while being on a volume cycle mechanical ventilation. The patient is on a assist- control of 18, tidal volume of 350, FiO2 of 35% with a PEEP of 5. Chest x-ray remains unchanged. The patient has been off Precedex. The sedation was discontinued 7 AM in the morning. While being off sedation, the patient does not show adequate mentation. She senses painful stimulation. Does not follow any commands. She is profoundly weak and debilitated. She remains in normal sinus rhythm 75 cc an hour. Fluid balance is -3.5 L over the past 24 hours. Blood gas from today show a pH of 7.47 with a pCO2 of 50 and pO2 of 101. The patient is on vital AF at rate of 28 cc an hour. She remains on bronchodilators. She remains on prednisone 40 mg p.o. daily. She is also on Seroquel. Seroquel is being given a dose of 50 mg 3 times daily and the patient is also on Zoloft 50 mg p.o. daily. BuSpar will be also added for increased anxiety. On 09/01/2023, the patient is being seen for a follow-up. 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 Nevertheless, the patient is very comfortable in her breathing. She is off sedation for the past 48 hours. She is currently on a pressure control mode of mechanical ventilation at rate of 18, with a pressure control of 15, FiO2 35% with a PEEP of 5. Blood gas showed pH of 7.48 with a pCO2 of 45 and pO2 of 118. Chest x-ray from today shows no acute abnormalities. The patient has a tracheostomy tube in place. No significant orotracheal secretions. Hemodynamically stable. Receiving vital AF at rate of 40 cc an hour. She has a fecal management system in place and she has some liquidy stool. Overall fluid balance is -2.5 L over the past 24 hours and the patient is producing excess amount of urine output. WBC count at 9.7 hemoglobin 10.5 and a platelet count of 249. BUN is at 12 with a creatinine of 0.18 and a sodium level is at 132. Responsive, able to communicate and answer questions appropriately. No significant agitation. On 09/02/2023, the patient is being seen for a follow-up. Awake and alert and communicating. 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 Currently on pressure control at the rate of 18, pressure control of 15 with a nighttime of 0.7 seconds with an FiO2 of 35% with a PEEP of 5. Blood gas showed pH of 7.46 with a pCO2 of 48 and pO2 of 131. She is negative fluid balance of 4.6 L. IV fluids at KVO. She is on vital AF at the rate of 65 cc an hour. No other complaints otherwise for now. Blood work from today show a WBC count of 8.9, sodium is at 133, potassium is at 3.5, BUN is 19 with a creatinine 0.2. Glucose is 133. She is calm and comfortable. She is currently on BuSpar. She is also on Seroquel 50 mg p.o. 3 times daily. She remains on bronchodilators. No other changes in her condition. Objective - Vital Signs Vital signs: Vital Signs Temp 99.2 F 09/02/23 04:00 Pulse 106 H 09/02/23 08:58 Resp 18 09/02/23 07:00 BP 132/78 09/01/23 15:00 Pulse Ox 99 09/02/23 07:00 FiO2 35 09/02/23 08:36 Intake & Output 09/01/23 09/02/23 09/02/23 18:59 06:59 18:59 Intake Total 774 917 74 Output Total 4215 2080 175 Balance -3441 -1163 -101 Weight 62.6 kg 61.8 kg Intake: IV 296 156 13 Normal Saline Pressure 36 36 3 Bag Sodium Chloride 0.9% 1, 260 120 10 000 ml @ 20 mls/hr IV . Q24H [facility] Rx#:[id number] Intake, IV Titration 430 Amount Anidulafungin 100 mg In 100 Sodium Chloride 0.9% 100 ml @ 84 mls/hr IVPB DAILY @1600 [facility] Rx#:[id number] Magnesium Sulfate-D5w Pmx 100 1 gm In Dextrose/Water 1 100ml.bag @ 100 mls/hr IVPB ONCE ONE Rx#: [id number] Potassium Chloride 10 meq 200 In Water For Injection 1 100ml.bag @ 100 mls/hr IVPB Q1H [facility] Rx#: [id number] Sodium Chloride 0.9% 1, 30 000 ml @ 20 mls/hr IV . Q24H [facility] Rx#:[id number] Tube Feeding 48 671 61 Other 90 Output: Urine 421 2080 175 Other: Voiding Method Indwelling Catheter Indwelling Catheter # Bowel Movements 1 ABP, PAP, CO, CI - Last Documented Arterial Blood Pressure 108/52 - Exam Patient is currently sedated and calm and comfortable on the mechanical ventilator. Tracheostomy tube in place. Lethargic, currently off sedation. Communicating and alert and the patient is currently off sedatives. Head exam was generally normal. There was no scleral icterus or corneal arcus. Mucous membranes were moist. Neck was supple and without jugular venous distension, thyromegaly, or carotid bruits. Carotids were easily palpable bilaterally. There was no adenopathy. The patient is tracheostomy tube in place and exit site is dry clean and intact and patient has a number HI tracheostomy tube in place Lung sounds are diminished and the patient has a barrel chest. Marked diminished breath sound bilaterally patient lung bases. Scattered expiratory wheezes also appreciated. There is prolongation of exhalation phase of breathing and marked diminished breath sounds bilaterally. Cardiac exam revealed the PMI to be normally situated and sized. The rhythm was regular and no extrasystoles were noted during several minutes of auscultation. The first and second heart sounds were normal and physiologic splitting of the second heart sound was noted. There were no murmurs, rubs, clicks, or gallops. Abdominal exam revealed normal bowel sounds. The abdomen was soft, non-tender, and without masses, organomegaly, or appreciable enlargement of the abdominal aorta. PEG tube site is dry clean and intact Examination of the extremities revealed easily palpable radial, femoral and pedal pulses. There was no cyanosis, clubbing or edema. Examination of the skin revealed no evidence of significant rashes, suspicious appearing nevi or other concerning lesions. Neurologically, the patient is awake and alert. Significant motor weakness in all 4 extremities. Pupils are equal reactive to light. No facial asymmetry. - Labs CBC & Chem 7: 09/02/23 05:00 09/02/23 06:51 Labs: Abnormal Lab Results - Last 24 Hours (Table) 09/01/23 09/01/23 09/02/23 Range/Units 12:19 17:50 05:00 RBC 3.31 L (3.80-5.40) m/uL Hgb 10.7 L (11.4-16.0) gm/dL Hct 32.3 L (34.0-46.0) % ABG pH (7.35-7.45) ABG pCO2 (35-45) mmHg ABG pO2 (83-108) mmHg ABG HCO3 (21-25) mmol/L ABG Total CO2 (19-24) mmol/L ABG O2 Saturation (94-97) % Sodium (137-145) mmol/L Carbon Dioxide (22-30) mmol/L BUN (7-17) mg/dL Creatinine (0.52-1.04) mg/dL Glucose (74-99) mg/dL POC Glucose (mg/dL) 147 H 147 H (70-110) mg/dL Calcium (8.4-10.2) mg/dL 09/02/23 09/02/23 09/02/23 Range/Units 06:08 06:10 06:51 RBC (3.80-5.40) m/uL Hgb (11.4-16.0) gm/dL Hct (34.0-46.0) % ABG pH 7.46 H (7.35-7.45) ABG pCO2 48 H (35-45) mmHg ABG pO2 131 H (83-108) mmHg ABG HCO3 34 H (21-25) mmol/L ABG Total CO2 36 H (19-24) mmol/L ABG O2 Saturation 99.1 H (94-97) % Sodium 133 L (137-145) mmol/L Carbon Dioxide 33 H (22-30) mmol/L BUN 19 H (7-17) mg/dL Creatinine 0.20 L (0.52-1.04) mg/dL Glucose 119 H (74-99) mg/dL POC Glucose (mg/dL) 111 H (70-110) mg/dL Calcium 8.0 L (8.4-10.2) mg/dL Assessment and Plan Plan: Acute exacerbation of chronic COPD, failed outpatient treatment despite being on antibiotics and steroids. The patient failed inpatient BiPAP therapy and the patient ultimately was intubated on 08/13/2023 and the patient is a tracheostomy tube insertion on 08/23/2023 for prolonged ventilator dependent respiratory failure. Chest x-ray remains free of any pulm pulmonary infiltrates. Bronchoscopy yielded Rimma and the patient is currently on Eraxis. The patient is currently on pressure control mode of mechanical ventilation. Breathing comfortably, chest x-ray is adequate. Blood gas is also adequate. Prolonged respiratory failure requiring intubation and mechanical ventilation and tracheostomy tube for ongoing respiratory support. Adequate oxygenation and ventilation on today's blood gases. Chest x-ray shows no acute abnormalities and is consistent with COPD. Acute hypoxic/hypercapnic respiratory failure secondary to above, remains on mechanical ventilator for respiratory support. The patient is post tracheostomy tube insertion Advanced COPD at baseline and the patient has been maintained on Trelegy Ellipta on outpatient basis History of smoking History of HIV currently on Biktarvy. Viral count and CD4 counts are not known. No previous history of a persistent infections. The patient has not been receiving any form of antibiotic treatments such as Bactrim. Her infectious disease doctor is Dr. Salguero. The CD4 count is at 81 Enteral feeding for nutritional support and the patient was given a PEG tube Left upper lobe pulmonary nodule measuring 9 mm in size, nonspecific finding. Encephalopathy, likely drug-induced and monitoring the mental status. The patient is still requiring sedation on and off. Precedex was discontinued this morning at around 7:00. 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 Plan Keep the patient off sedatives I will keep the patient off sedative. Continue BuSpar for increased anxiety Continue Seroquel and Zoloft Switch this patient to a pressure support mode of mechanical ventilation with a pressure support of 12 and a PEEP of 5, this which was done and the patient is able to breathe comfortably IV fluids KVO Decrease the prednisone down to 20 mg p.o. daily Mental status is adequate and the patient has profound weakness in all 4 extremities. She would benefit from aggressive physical therapy. Continue bronchodilators Continue prednisone burst taper, currently on 40 mg, will gradually taper down the steroids due to ongoing weakness. Drop the prednisone down to 20 mg p.o. daily. Continue Lovenox for DVT prophylaxis Continue enteral feeding for nutritional support Rest of the medication will be kept unchanged including Biktarvy for HIV treatment Prognosis remains poor. Will continue to follow make further recommendations based on her progress. Good candidate for select specialty and appropriate consultation will be done. She will need obviously prolonged weaning and rehabilitation. Condition is critical. This evaluation was done more than 30 minutes. Time with Patient: Greater than 30
--- NOTE | 2023-09-02 13:10 | P.PN ---
Subjective Progress Note Date: 09/02/23 Principal diagnosis: Reason for follow-up is HIV and possible pneumonia Patient is a 52-year-old female with a past medical history significant for HIV on Biktarvy, also with a history of COPD presenting to the hospital for evaluation of increasing shortness of breath patient did have worsening respiratory status got intubated, patient did have a CT angiogram of the chest that was negative for PE did shows a lung nodule did not mention any infiltrate or consolidation.Patient is status post tracheostomy completed on 08/23/2023 On today's evaluation that is 09/02/2023,the patient remains to be afebrile the patient remains to be intubated on the vent through the trach, FiO2 stable at 35% patient is hemodynamic stable not requiring any pressor support no worsening reported by the nursing staff. Patient did have a white count of 8.9, creatinine 0.20 Objective - Vital Signs Vital signs: Vital Signs Temp 98.4 F 09/02/23 08:00 Pulse 116 H 09/02/23 12:05 Resp 19 09/02/23 11:00 BP 132/78 09/01/23 15:00 Pulse Ox 100 09/02/23 11:00 FiO2 35 09/02/23 12:03 Intake & Output 09/01/23 09/02/23 09/02/23 18:59 06:59 18:59 Intake Total 774 917 400 Output Total 4218 2080 1225 [facility] -3441 -1163 -825 Weight 62.6 kg 61.8 kg Intake: IV 296 156 65 Normal Saline Pressure 36 36 15 Bag Sodium Chloride 0.9% 1, 260 120 50 000 ml @ 20 mls/hr IV . Q24H [facility] Rx#:[id number] Intake, IV Titration 430 Amount Anidulafungin 100 mg In 100 Sodium Chloride 0.9% 100 ml @ 84 mls/hr IVPB DAILY @1600 [facility] Rx#:[id number] Magnesium Sulfate-D5w Pmx 100 1 gm In Dextrose/Water 1 100ml.bag @ 100 mls/hr IVPB ONCE ONE Rx#: [id number] Potassium Chloride 10 meq 200 In Water For Injection 1 100ml.bag @ 100 mls/hr IVPB Q1H [facility] Rx#: [id number] Sodium Chloride 0.9% 1, 30 000 ml @ 20 mls/hr IV . Q24H [facility] Rx#:[id number] Tube Feeding 48 671 305 Other 90 30 Output: Urine 4215 5087 1225 Other: Voiding Method Indwelling Catheter Indwelling Catheter Indwelling Catheter # Bowel Movements 1 ABP, PAP, CO, CI - Last Documented Arterial Blood Pressure 138/64 - Exam GENERAL DESCRIPTION: Middle-aged female intubated on the vent through the trach RESPIRATORY SYSTEM: Unlabored breathing , decreased breath sounds at bases HEART: S1 S2 regular rate and rhythm , ABDOMEN: Soft , no tenderness EXTREMITIES: No edema feet - Labs CBC & Chem 7: 09/02/23 05:00 09/02/23 06:51 Labs: Abnormal Lab Results - Last 24 Hours (Table) 09/01/23 09/01/23 09/02/23 Range/Units 12:19 17:50 05:00 RBC 3.31 L (3.80-5.40) m/uL Hgb 10.7 L (11.4-16.0) gm/dL Hct 32.3 L (34.0-46.0) % ABG pH (7.35-7.45) ABG pCO2 (35-45) mmHg ABG pO2 (83-108) mmHg ABG HCO3 (21-25) mmol/L ABG Total CO2 (19-24) mmol/L ABG O2 Saturation (94-97) % Sodium (137-145) mmol/L Carbon Dioxide (22-30) mmol/L BUN (7-17) mg/dL Creatinine (0.52-1.04) mg/dL Glucose (74-99) mg/dL POC Glucose (mg/dL) 147 H 147 H (70-110) mg/dL Calcium (8.4-10.2) mg/dL 09/02/23 09/02/23 09/02/23 Range/Units 06:08 06:10 06:51 RBC (3.80-5.40) m/uL Hgb (11.4-16.0) gm/dL Hct (34.0-46.0) % ABG pH 7.46 H (7.35-7.45) ABG pCO2 48 H (35-45) mmHg ABG pO2 131 H (83-108) mmHg ABG HCO3 34 H (21-25) mmol/L ABG Total CO2 36 H (19-24) mmol/L ABG O2 Saturation 99.1 H (94-97) % Sodium 133 L (137-145) mmol/L Carbon Dioxide 33 H (22-30) mmol/L BUN 19 H (7-17) mg/dL Creatinine 0.20 L (0.52-1.04) mg/dL Glucose 119 H (74-99) mg/dL POC Glucose (mg/dL) 111 H (70-110) mg/dL Calcium 8.0 L (8.4-10.2) mg/dL 09/02/23 Range/Units 11:57 RBC (3.80-5.40) m/uL Hgb (11.4-16.0) gm/dL Hct (34.0-46.0) % ABG pH (7.35-7.45) ABG pCO2 (35-45) mmHg ABG pO2 (83-108) mmHg ABG HCO3 (21-25) mmol/L ABG Total CO2 (19-24) mmol/L ABG O2 Saturation (94-97) % Sodium (137-145) mmol/L Carbon Dioxide (22-30) mmol/L BUN (7-17) mg/dL Creatinine (0.52-1.04) mg/dL Glucose (74-99) mg/dL POC Glucose (mg/dL) 133 H (70-110) mg/dL Calcium (8.4-10.2) mg/dL Assessment and Plan (1) Acute respiratory failure Current Visit: Yes Status: Acute Code(s): J96.00 - ACUTE RESPIRATORY FAILURE, UNSP W HYPOXIA OR HYPERCAPNIA SNOMED Code(s): 29850493 (2) HIV disease Current Visit: No Status: Acute Code(s): B20 - HUMAN IMMUNODEFICIENCY VIRUS [HIV] DISEASE SNOMED Code(s): 40215648 Plan: 1patient presented to hospital with increasing shortness of breath which is likely multifactorial in this patient who did have a history of COPD and likely COPD is a patient with a tracheobronchitis underlying pneumonia less likely but not entirely excluded 2-patient did have a CT angiogram of the chest that was negative for PE did not show any evidence of pneumonia or interstitial infiltrate 3-patient did have a penicillin allergy that will limit the number of antibiotics safe to use 4-patient to continue with Biktarvy for HIV, HIV viral load is currently pending 5-patient sputum is growing Rimma which is likely colonization however the patient did have worsening of the white count could be component of oropharyngeal candidiasis, the patient white count has normalized with addition of Eraxis which will be continued over the weekend and monitor clinical course closely Dictation was produced using [employer] dictation software. please excuse any grammatical, word or spelling errors. Time with Patient: Less than 30
--- NOTE | 2023-09-02 13:18 | P.PN ---
Subjective Progress Note Date: 09/02/23 52-year-old female who initially came into the hospital due to difficulty breathing and cough. Patient was found to have significant COPD exacerbation and required intubation. She continues in the intensive care unit she is on the mechanical ventilator with an FiO2 of 35% with a PEEP of 5. She is currently on an IV Versed and IV fentanyl infusion as well as IV Solu-Medrol. She is currently sedated with propofol. patient is maintained on Biktarvy also for history of HIV. On enteral feedings. Chest x-ray today shows improved aeration of the lung bases. Labs today reveal a white blood cell count of 11.6, sodium 133, BUN of 23, creatinine of 0.29. Her glucose is in the 120s to 130s range. CO2 of 40. Sputum culture was found to be positive for Rimma. She is being considered for trach and PEG tube placement. 08/22/2023 Patient evaluated in follow up today in the ICU. Remains on the mechanical ventilator with FiO2 of 35% and PEEP of 5. Patient is scheduled for PEG/Trach placement today. Remains on IV fentanyl, IV versed, IV propofol, IV solumedrol. Patient is being hydrated with normal saline. Chest xray today shows no focal infiltrates. 08/23/2023 Patient remains in the intensive care unit. Patient is currently on the mechanical ventilator. Patient underwent trach and PEG tube placement today. Remains on IV fentanyl, IV versed, IV propofol, IV solumedrol. Patient remains on Biktarvy. Unable to be considered for rehab or select specialty at this time due to the cost of the Biktarvy medication which will need to be continued at this time. White blood cell count today 13.4, sodium 136, BUN 19, creatinine 0.30. CO2 level 42. Blood glucose 170. 08/24/2023 Patient is evaluated today in the ICU. Patient is postoperative trach and peg tube placement. Remains on mechanical ventilator with FiO2 of 35% and PEEP of 5. Currently on IV fentanyl, IV versed, IV propofol and remains on high dose IV solumedrol. Sputum culture was positive for rimma patient is having worsening WBC today is 15k and ID has recommended to start the patient on IV anidulafungin. Patient is being hydrated with normal saline running at 75 mls/hr. Tube feedings were placed on hold for the PEG tube placement and are to be resumed today. 08/25/2023 Patient evaluated today in the ICU, patient remains on the mechanical ventilator. White blood cell count up to 16.9. Continues on IV anidulafungin. Chest xray today reveals chronic changes without acute cardiopulmonary disease. Patient on IV precedex, IV fentanyl, IV versed, IV propofol. Remains on normal saline. Continues on high dose IV solumedrol. Resumed on enteral feedings. 08/26/2023 Patient seen in follow-up continues to be in the ICU with multiple medical consultations following. Patient remains on mechanical ventilation with an FiO2 of 35%. Patient is currently weaned off Cleviprex and continues on fentanyl. Patient also maintained on antifungal with infectious disease following. Tube feedings at goal and patient is tolerating. Patient is afebrile although white count continues to remain elevated, possibly steroid effect and patient is being transition to oral prednisone. Continue with breathing inhalational treatments and follow-up on chest x-ray. 08/27/23 : Patient seen and evaluated in medical ICU vitals reviewed, blood work reviewed WBC 14.3, arterial blood gas reviewed pH 7.43/pCO2 60/pO2 79/serum chemistry sodium 136 BUN 19 creatinine 0.33 calcium of 7.4 08/28/23: Patient seen and evaluated at bedside, patient remains on ventilator through trach, vitals reviewed, FiO2 35% and arterial blood gas reviewed, serum chemistry showed sodium 135 creatinine 0.17 calcium of 7.4 blood glucose of 77, continue antifungal, infectious disease following. Patient transition to Precedex, propofol weaned off 08/29/23: Patient seen and evaluated bedside, planning to wean off ventilator, serial ABGs obtained, spontaneous breathing trial done, serum chemistry reviewed sodium 133, carbon dioxide 38, arterial blood gas shows metabolic alkalosis with respiratory compensation, continue management and medical ICU. 08/30/2023 Patient is a sleepy, she was still on Precedex when seen in the morning Tracheostomy on mechanical ventilation, PEEP of 5 and FiO2 of 35% Blood pressure is 81/35, heart rate 92 Patient has Ortiz catheter with clear yellow urine. Fecal management system. Mild leukocytosis of 12.9 Sputum culture growing Rimma, patient currently on Eraxis and nystatin Also on prednisone 40 mg for her severe COPD seen on CT of the chest Patient also on HIV treatment and normal saline 75 mL/h 08/31/2023 Patient s/p tracheostomy, patient nonverbal today but she open her eyes spontaneously after stopping Precedex yesterday. She able to follow simple commands slowly for example opening her mouth. Other exam is restricted. Patient is still generally weak She is still treated for her pneumonia and COPD exacerbation with Eraxis for culture positive for Rimma and also she is on prednisone 40 mg taper She is to receive HIV medication which is her home medication no other new complaint Plan to discharge to select with pulmonary team recommendation will follow closely for her pneumonia and respiratory failure other medical problem 09/01/2023 Patient today is awake and interactive however nonverbal because of the tracheostomy. 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 We will check creatinine kinase tomorrow She remains on Eraxis and nystatin orally. Prednisone dose lowered to 20 mg today and WBC came back to normal at 9.7. Hemoglobin stable. She remains for HIV treatment 09/02/2023 : Patient seen and evaluated bedside, patient remains on mechanical ventilator through tracheostomy serum chemistry reviewed, sodium 133 potassium 3.5 BUN 19 creatinine 0.2 calcium of 8. Arterial blood gas reviewed pH 7.46, pCO2 48, bicarb 34. Patient is off Precedex, continue to remain disoriented PHYSICAL EXAMINATION: GENERAL: The patient is alert and oriented x 1 , Ill-appearing, trach in place, on vent HEENT: Normocephalic, atraumatic. CARDIOVASCULAR: S1 and S2 present. Tachycardia noted PULMONARY: Diminished breath sounds bilaterally with scattered rhonchi noted.. ABDOMEN: Soft, nontender, nondistended, normoactive bowel sounds. No palpable organomegaly. MUSCULOSKELETAL: No joint swelling or deformity. EXTREMITIES: No cyanosis, clubbing, mild generalized edema noted NEUROLOGICAL: Alert however disoriented not following commands Assessment and Plan * Acute hypoxemic hypercapnic respiratory failure requiring intubation on 08/12 status post PEG tube and tracheostomy placement * Acute exacerbation of COPD * S/p tracheostomy * Multifocal pneumonia, with Rimma albicans * Left upper lobe nodule * History of HIV currently on Biktarvy. Viral count and CD4 counts are not known. No previous history of a persistent infections. The patient has not been receiving any form of antibiotic treatments such as Bactrim. Her infectious disease doctor is Dr. Salguero. The CD4 count is at 81 * Moderate protein calorie malnutrition * Chronic nicotine use * Continue medical management in ICU, seen by pulmonary medicine, infectious disease * In regards to hypoxemic hypercapnic respiratory failure continue patient on mechanical ventilation, s/p PEG tube placement, s/p trach, continue sedation, weaned off propofol, on Precedex which has been weaned off as well. Patient continues to remain encephalopathic, disoriented * In regards to malnutrition continue patient on enteral tube feeding * Wean vent as tolerated, tube feeds at goal managed by dietitian * In regards to HIV continue current treatment seen by infectious disease * Prognosis remains guarded Objective - Vital Signs Vital signs: Vital Signs Temp 99.2 F 09/02/23 04:00 Pulse 106 H 09/02/23 08:58 Resp 18 09/02/23 07:00 BP 132/78 09/01/23 15:00 Pulse Ox 99 09/02/23 07:00 FiO2 35 09/02/23 08:36 Intake & Output 09/01/23 09/02/23 09/02/23 18:59 06:59 18:59 Intake Total 774 917 74 Output Total 4215 2080 175 Balance -3441 -1163 -101 Weight 62.6 kg 61.8 kg Intake: IV 296 156 13 Normal Saline Pressure 36 36 3 Bag Sodium Chloride 0.9% 1, 260 120 10 000 ml @ 20 mls/hr IV . Q24H [facility] Rx#:[id number] Intake, IV Titration 430 Amount Anidulafungin 100 mg In 100 Sodium Chloride 0.9% 100 ml @ 84 mls/hr IVPB DAILY @1600 [facility] Rx#:[id number] Magnesium Sulfate-D5w Pmx 100 1 gm In Dextrose/Water 1 100ml.bag @ 100 mls/hr IVPB ONCE ONE Rx#: [id number] Potassium Chloride 10 meq 200 In Water For Injection 1 100ml.bag @ 100 mls/hr IVPB Q1H [facility] Rx#: [id number] Sodium Chloride 0.9% 1, 30 000 ml @ 20 mls/hr IV . Q24H [facility] Rx#:[id number] Tube Feeding 48 671 61 Other 90 Output: Urine 4215 2080 175 Other: Voiding Method Indwelling Catheter Indwelling Catheter # Bowel Movements 1 ABP, PAP, CO, CI - Last Documented Arterial Blood Pressure 108/52 - Labs CBC & Chem 7: 09/02/23 05:00 09/02/23 06:51 Labs: Abnormal Lab Results - Last 24 Hours (Table) 09/01/23 09/01/23 09/02/23 Range/Units 12:19 17:50 05:00 RBC 3.31 L (3.80-5.40) m/uL Hgb 10.7 L (11.4-16.0) gm/dL Hct 32.3 L (34.0-46.0) % ABG pH (7.35-7.45) ABG pCO2 (35-45) mmHg ABG pO2 (83-108) mmHg ABG HCO3 (21-25) mmol/L ABG Total CO2 (19-24) mmol/L ABG O2 Saturation (94-97) % Sodium (137-145) mmol/L Carbon Dioxide (22-30) mmol/L BUN (7-17) mg/dL Creatinine (0.52-1.04) mg/dL Glucose (74-99) mg/dL POC Glucose (mg/dL) 147 H 147 H (70-110) mg/dL Calcium (8.4-10.2) mg/dL 09/02/23 09/02/23 09/02/23 Range/Units 06:08 06:10 06:51 RBC (3.80-5.40) m/uL Hgb (11.4-16.0) gm/dL Hct (34.0-46.0) % ABG pH 7.46 H (7.35-7.45) ABG pCO2 48 H (35-45) mmHg ABG pO2 131 H (83-108) mmHg ABG HCO3 34 H (21-25) mmol/L ABG Total CO2 36 H (19-24) mmol/L ABG O2 Saturation 99.1 H (94-97) % Sodium 133 L (137-145) mmol/L Carbon Dioxide 33 H (22-30) mmol/L BUN 19 H (7-17) mg/dL Creatinine 0.20 L (0.52-1.04) mg/dL Glucose 119 H (74-99) mg/dL POC Glucose (mg/dL) 111 H (70-110) mg/dL Calcium 8.0 L (8.4-10.2) mg/dL
[2023-09-02 18:42] LABS: Glucose,Whole Blood 130 mg/dL (70-110)
[2023-09-03 01:03] LABS: Glucose,Whole Blood 108 mg/dL (70-110)
[2023-09-03 05:54] LABS: ABG Base Excess 10.1 mmol/L; ABG HCO3 34 mmol/L (21-25); ABG Oxygen Saturation 98.9 % (94-97); ABG PCO2 46 mmHg (35-45); ABG PH 7.48 (7.35-7.45); ABG PO2 133 mmHg (83-108); ABG TCO2 35 mmol/L (19-24); Allen Test Performed? Yes
[2023-09-03 06:12] LABS: HCT 29.5 % (34.0-46.0); HGB 9.6 gm/dL (11.4-16.0); MCH 31.9 pg (25.0-35.0); MCHC 32.7 g/dL (31.0-37.0); MCV 97.8 fL (80.0-100.0); Mean Platelet Volume 9.1; Platelet Count 265 k/uL (150-450); RBC 3.02 m/uL (3.80-5.40); RDW 13.4 % (11.5-15.5)
--- NOTE | 2023-09-03 06:21 | XR ---
EXAMINATION TYPE: XR chest 1V portable DATE OF EXAM: 09/03/2023 COMPARISON: 09/02/2023 HISTORY: Shortness of breath TECHNIQUE: Single frontal view of the chest is obtained. FINDINGS: No change in the tracheostomy tube and right-sided PICC line.. There is a percutaneous gastrostomy tu be in the stomach. Heart and pulmonary vasculature are normal. The lungs are clear. There is no pleural effusion or pneu mothorax. The osseous structures are intact IMPRESSION: No acute cardiopulmonary disease and no interval change.
[2023-09-03 06:42] LABS: African American GFR (CKD) >90 (>60 ml/min/1.73 sqM); Anion Gap 0 mmol/L; Blood Urea Nitrogen 22 mg/dL (7-17); Calcium 8.3 mg/dL (8.4-10.2); Carbon Dioxide 34 mmol/L (22-30); Chloride 99 mmol/L (98-107); Glucose 102 mg/dL (74-99); Non-African American GFR(CKD) >90 (>60 ml/min/1.73 sqM); Sodium 133 mmol/L (137-145)
[2023-09-03 11:13] LABS: Glucose,Whole Blood 169 mg/dL (70-110)
--- NOTE | 2023-09-03 11:31 | P.PN ---
Subjective Progress Note Date: 09/03/23 On today's evaluation of 08/28/2023, the patient is being seen for a follow-up. This is a case of advanced COPD maintained on Trelegy Ellipta on outpatient basis along with HIV with low CD4 counts, presented to the hospital with respiratory failure multiple requiring intubation and mechanical ventilation. The patient is post prolonged ventilator dependent respiratory failure and the patient was given a tracheostomy tube that was inserted on 08/23/2023. Noted the patient was intubated on 08/13/2023. This morning, the patient is on propofol running at 50 mcg/kg/min and the patient will be given a sedation holiday. The patient is also normal sinus rate of 75 cc an hour. She is on assist-control mode at the rate of 18, tidal volume of 350, FiO2 is at 35% with a PEEP of 5. The chest x-ray from today is showing adequate positioning of the tracheostomy tube. The patient also has a right upper extremity PICC line catheter in place. No evidence of any cardiopulmonary abnormalities. No infiltrates or airspace disease. The patient remains on bronchodilators [id number] with Karen cramer. The patient remains on prednisone 40 mg p.o. daily as part of burst taper. The patient is on Lovenox for DVT prophylaxis. The patient is sitting PEG tube feeding and the patient has a vital AF at a rate of 33 cc an hour. Fluid balance is -1 L over the past 24 hours. No other significant events overnight. The blood gas from today shows a pH of 7.48 with a pCO2 of 56 and pO2 of 93. WBC count of 12.6 with a hemoglobin of 11.7, BUN is at 15 with a creatinine of 0.17 and sodium is at 135 and a potassium level of 3.8. Blood sugars at 83 from this morning. The bronchial wash was positive for Rimma and the patient is currently on Eraxis. On today's evaluation of 08/29/2023, I am seeing the patient for a follow-up. The patient remains on mechanical ventilator and the patient has a tracheostomy tube in place. The patient has been off propofol for the past 24 hours. Currently she is not receiving any form of sedative medications. She is very sluggishly responsive. Unable to communicate. Remains quite obtunded. Could be residual effect of various sedatives given to this patient over the past few weeks. She remains assist-control mode of mechanical ventilation at the rate of 18, tidal volume of 350, FiO2 of 35% with a PEEP of 5. Blood gas with a pH of 7.44 with pCO2 of 39 and pO2 of 122. Chest x-ray shows no acute abnormalities. Is consistent with COPD. Last procedure consolidation. Sodium level is 133 with a potassium level of 3.9, BUN is at 15 with a creatinine of 0.2 and a potassium level is at 3.9. WBC count is at 15.1 with a hemoglobin of 11.4 and a platelet count of 210. Remains on DuoNeb nebulized treatments [id number]. Remains on prednisone 40 mg p.o. daily. Remains on Lovenox for DVT prophylaxis 40 mg subcu on a daily basis. SSI scale coverage and the patient is also receiving enteral feeding for nutritional support with vital AF at the rate of 23 cc an hour through a PEG tube. Cardiac rhythm is sinus. No other significant events over the past 24 hours at this point in time. On today's evaluation of 08/30/2023, the patient seems to be struggling while being on a volume cycle mechanical ventilation. The patient is on a assist- control of 18, tidal volume of 350, FiO2 of 35% with a PEEP of 5. Chest x-ray remains unchanged. The patient has been off Precedex. The sedation was discontinued 7 AM in the morning. While being off sedation, the patient does not show adequate mentation. She senses painful stimulation. Does not follow any commands. She is profoundly weak and debilitated. She remains in normal sinus rhythm 75 cc an hour. Fluid balance is -3.5 L over the past 24 hours. Blood gas from today show a pH of 7.47 with a pCO2 of 50 and pO2 of 101. The patient is on vital AF at rate of 28 cc an hour. She remains on bronchodilators. She remains on prednisone 40 mg p.o. daily. She is also on Seroquel. Seroquel is being given a dose of 50 mg 3 times daily and the patient is also on Zoloft 50 mg p.o. daily. BuSpar will be also added for increased anxiety. On 09/01/2023, the patient is being seen for a follow-up. 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 Nevertheless, the patient is very comfortable in her breathing. She is off sedation for the past 48 hours. She is currently on a pressure control mode of mechanical ventilation at rate of 18, with a pressure control of 15, FiO2 35% with a PEEP of 5. Blood gas showed pH of 7.48 with a pCO2 of 45 and pO2 of 118. Chest x-ray from today shows no acute abnormalities. The patient has a tracheostomy tube in place. No significant orotracheal secretions. Hemodynamically stable. Receiving vital AF at rate of 40 cc an hour. She has a fecal management system in place and she has some liquidy stool. Overall fluid balance is -2.5 L over the past 24 hours and the patient is producing excess amount of urine output. WBC count at 9.7 hemoglobin 10.5 and a platelet count of 249. BUN is at 12 with a creatinine of 0.18 and a sodium level is at 132. Responsive, able to communicate and answer questions appropriately. No significant agitation. On 09/02/2023, the patient is being seen for a follow-up. Awake and alert and communicating. 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 Currently on pressure control at the rate of 18, pressure control of 15 with a nighttime of 0.7 seconds with an FiO2 of 35% with a PEEP of 5. Blood gas showed pH of 7.46 with a pCO2 of 48 and pO2 of 131. She is negative fluid balance of 4.6 L. IV fluids at KVO. She is on vital AF at the rate of 65 cc an hour. No other complaints otherwise for now. Blood work from today show a WBC count of 8.9, sodium is at 133, potassium is at 3.5, BUN is 19 with a creatinine 0.2. Glucose is 133. She is calm and comfortable. She is currently on BuSpar. She is also on Seroquel 50 mg p.o. 3 times daily. She remains on bronchodilators. No other changes in her condition. 09/03/2023, the patient is awake, sitting up on a recliner on a pressure support mode of mechanical ventilation at the pressure of 12 with a PEEP of 5. She is comfortable with the blood gas showed a pH of 7.48 with a pCO2 of 46 and pO2 of 133. She is profoundly weak. Trying to move her extremities and she is involved in physical therapy and passive range of motion. She is still on the same bronchodilators. Prednisone is currently down to 20 mg. She is on vital AF at the rate of 61. She is looking into going into select specialty. The white cell count is at 7 with a hemoglobin of 9.6 and a platelet count of 265. BUN is 22 with a creatinine 0.15 and a sodium level is at 133 with a potassium level of 4.0. No fever. Mental status is adequate. No agitation. Fluid balance is -2.1 L over the past 24 hours. Objective - Vital Signs Vital signs: Vital Signs Temp 98.6 F 09/03/23 08:00 Pulse 111 H 09/03/23 09:08 Resp 17 09/03/23 09:00 BP 132/80 09/03/23 09:00 Pulse Ox 98 09/03/23 09:00 FiO2 40 09/03/23 09:05 Intake & Output 09/02/23 09/03/23 09/03/23 18:59 06:59 18:59 Intake Total 1152 116 168 Output Total 2490 900 375 Balance -1338 -784 -207 Weight 62 kg Intake: IV 269 116 6 Anidulafungin 100 mg In 100 Sodium Chloride 0.9% 100 ml @ 84 mls/hr IVPB DAILY @1600 [facility] Rx#:[id number] Normal Saline Pressure 39 36 6 Bag Sodium Chloride 0.9% 1, 130 80 000 ml @ 20 mls/hr IV . Q24H [facility] Rx#:[id number] Intake, IV Titration 40 Amount Sodium Chloride 0.9% 1, 40 000 ml @ 20 mls/hr IV . Q24H [facility] Rx#:[id number] Tube Feeding 793 122 Other 90 Output: Urine 2490 900 375 Other: Voiding Method Indwelling Catheter Indwelling Catheter # Bowel Movements 1 ABP, PAP, CO, CI - Last Documented Arterial Blood Pressure 138/70 - Exam Patient is currently sedated and calm and comfortable on the mechanical ventilator. Tracheostomy tube in place. Lethargic, currently off sedation. Awake and alert and communicating Head exam was generally normal. There was no scleral icterus or corneal arcus. Mucous membranes were moist. Neck was supple and without jugular venous distension, thyromegaly, or carotid bruits. Carotids were easily palpable bilaterally. There was no adenopathy. The patient is tracheostomy tube in place and exit site is dry clean and intact and patient has a number HI tracheostomy tube in place Lung sounds are diminished and the patient has a barrel chest. Marked diminished breath sound bilaterally patient lung bases. Scattered expiratory wheezes also appreciated. There is prolongation of exhalation phase of breathing and marked diminished breath sounds bilaterally. Cardiac exam revealed the PMI to be normally situated and sized. The rhythm was regular and no extrasystoles were noted during several minutes of auscultation. The first and second heart sounds were normal and physiologic splitting of the second heart sound was noted. There were no murmurs, rubs, clicks, or gallops. Abdominal exam revealed normal bowel sounds. The abdomen was soft, non-tender, and without masses, organomegaly, or appreciable enlargement of the abdominal aorta. PEG tube site is dry clean and intact Examination of the extremities revealed easily palpable radial, femoral and pedal pulses. There was no cyanosis, clubbing or edema. Examination of the skin revealed no evidence of significant rashes, suspicious appearing nevi or other concerning lesions. Neurologically, the patient is awake and alert. Significant motor weakness in all 4 extremities. Pupils are equal reactive to light. No facial asymmetry. - Labs CBC & Chem 7: 09/03/23 06:00 09/03/23 06:00 Labs: Abnormal Lab Results - Last 24 Hours (Table) 09/02/23 09/02/23 09/03/23 Range/Units 11:57 18:41 05:50 RBC (3.80-5.40) m/uL Hgb (11.4-16.0) gm/dL Hct (34.0-46.0) % ABG pH 7.48 H (7.35-7.45) ABG pCO2 46 H (35-45) mmHg ABG pO2 133 H (83-108) mmHg ABG HCO3 34 H (21-25) mmol/L ABG Total CO2 35 H (19-24) mmol/L ABG O2 Saturation 98.9 H (94-97) % Sodium (137-145) mmol/L Carbon Dioxide (22-30) mmol/L BUN (7-17) mg/dL Creatinine (0.52-1.04) mg/dL Glucose (74-99) mg/dL POC Glucose (mg/dL) 133 H 130 H (70-110) mg/dL Calcium (8.4-10.2) mg/dL 09/03/23 09/03/23 Range/Units 06:00 06:00 RBC 3.02 L (3.80-5.40) m/uL Hgb 9.6 L (11.4-16.0) gm/dL Hct 29.5 L (34.0-46.0) % ABG pH (7.35-7.45) ABG pCO2 (35-45) mmHg ABG pO2 (83-108) mmHg ABG HCO3 (21-25) mmol/L ABG Total CO2 (19-24) mmol/L ABG O2 Saturation (94-97) % Sodium 133 L (137-145) mmol/L Carbon Dioxide 34 H (22-30) mmol/L BUN 22 H (7-17) mg/dL Creatinine 0.15 L (0.52-1.04) mg/dL Glucose 102 H (74-99) mg/dL POC Glucose (mg/dL) (70-110) mg/dL Calcium 8.3 L (8.4-10.2) mg/dL Assessment and Plan Plan: Acute exacerbation of chronic COPD, failed outpatient treatment despite being on antibiotics and steroids. The patient failed inpatient BiPAP therapy and the patient ultimately was intubated on 08/13/2023 and the patient is a tracheostomy tube insertion on 08/23/2023 for prolonged ventilator dependent respiratory failure. Chest x-ray remains free of any pulm pulmonary infiltrates. Bronchoscopy yielded Rimma and the patient is currently on Eraxis. The patient is currently on pressure support mode of spontaneous breathing. Pressure support of 12 with a PEEP of 5. Adequate oxygenation. Chest x-ray findings are stable. Prolonged respiratory failure requiring intubation and mechanical ventilation and tracheostomy tube for ongoing respiratory support. Acute hypoxic/hypercapnic respiratory failure secondary to above, remains on mechanical ventilator for respiratory support. The patient is post tracheostomy tube insertion, undergoing gradual wean and currently she is on a pressure support mode of mechanical ventilation. Advanced COPD at baseline and the patient has been maintained on Trelegy Ellipta on outpatient basis History of smoking History of HIV currently on Biktarvy. Viral count and CD4 counts are not known. No previous history of a persistent infections. The patient has not been receiving any form of antibiotic treatments such as Bactrim. Her infectious disease doctor is Dr. Salguero. The CD4 count is at 81 Enteral feeding for nutritional support and the patient was given a PEG tube Left upper lobe pulmonary nodule measuring 9 mm in size, nonspecific finding. Encephalopathy, likely drug-induced and monitoring the mental status. The patient is still requiring sedation on and off. Precedex was discontinued this morning at around 7:00. 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 Plan Awake and alert and sitting up in a recliner Continue BuSpar for increased anxiety Continue Seroquel and Zoloft pressure support of 12 and a PEEP of 5, this which was done and the patient is able to breathe comfortably IV fluids KVO Decrease the prednisone down to 20 mg p.o. daily Mental status is adequate and the patient has profound weakness in all 4 extremi ties. She would benefit from aggressive physical therapy. Continue bronchodilators Continue prednisone burst taper, currently on 40 mg, will gradually taper down the steroids due to ongoing weakness. Drop the prednisone down to 20 mg p.o. daily. Continue Lovenox for DVT prophylaxis Continue enteral feeding for nutritional support Rest of the medication will be kept unchanged including Biktarvy for HIV treatment Prognosis remains poor. Will continue to follow make further recommendations based on her progress. Good candidate for select specialty and appropriate consultation will be done. She will need obviously prolonged weaning and rehabilitation. Condition is critical. This evaluation was done more than 30 minutes. Time with Patient: Greater than 30
--- NOTE | 2023-09-03 12:38 | P.PN ---
Subjective Progress Note Date: 09/03/23 52-year-old female who initially came into the hospital due to difficulty breathing and cough. Patient was found to have significant COPD exacerbation and required intubation. She continues in the intensive care unit she is on the mechanical ventilator with an FiO2 of 35% with a PEEP of 5. She is currently on an IV Versed and IV fentanyl infusion as well as IV Solu-Medrol. She is currently sedated with propofol. patient is maintained on Biktarvy also for history of HIV. On enteral feedings. Chest x-ray today shows improved aeration of the lung bases. Labs today reveal a white blood cell count of 11.6, sodium 133, BUN of 23, creatinine of 0.29. Her glucose is in the 120s to 130s range. CO2 of 40. Sputum culture was found to be positive for Rimma. She is being considered for trach and PEG tube placement. 08/22/2023 Patient evaluated in follow up today in the ICU. Remains on the mechanical ventilator with FiO2 of 35% and PEEP of 5. Patient is scheduled for PEG/Trach placement today. Remains on IV fentanyl, IV versed, IV propofol, IV solumedrol. Patient is being hydrated with normal saline. Chest xray today shows no focal infiltrates. 08/23/2023 Patient remains in the intensive care unit. Patient is currently on the mechanical ventilator. Patient underwent trach and PEG tube placement today. Remains on IV fentanyl, IV versed, IV propofol, IV solumedrol. Patient remains on Biktarvy. Unable to be considered for rehab or select specialty at this time due to the cost of the Biktarvy medication which will need to be continued at this time. White blood cell count today 13.4, sodium 136, BUN 19, creatinine 0.30. CO2 level 42. Blood glucose 170. 08/24/2023 Patient is evaluated today in the ICU. Patient is postoperative trach and peg tube placement. Remains on mechanical ventilator with FiO2 of 35% and PEEP of 5. Currently on IV fentanyl, IV versed, IV propofol and remains on high dose IV solumedrol. Sputum culture was positive for rimma patient is having worsening WBC today is 15k and ID has recommended to start the patient on IV anidulafungin. Patient is being hydrated with normal saline running at 75 mls/hr. Tube feedings were placed on hold for the PEG tube placement and are to be resumed today. 08/25/2023 Patient evaluated today in the ICU, patient remains on the mechanical ventilator. White blood cell count up to 16.9. Continues on IV anidulafungin. Chest xray today reveals chronic changes without acute cardiopulmonary disease. Patient on IV precedex, IV fentanyl, IV versed, IV propofol. Remains on normal saline. Continues on high dose IV solumedrol. Resumed on enteral feedings. 08/26/2023 Patient seen in follow-up continues to be in the ICU with multiple medical consultations following. Patient remains on mechanical ventilation with an FiO2 of 35%. Patient is currently weaned off Cleviprex and continues on fentanyl. Patient also maintained on antifungal with infectious disease following. Tube feedings at goal and patient is tolerating. Patient is afebrile although white count continues to remain elevated, possibly steroid effect and patient is being transition to oral prednisone. Continue with breathing inhalational treatments and follow-up on chest x-ray. 08/27/23 : Patient seen and evaluated in medical ICU vitals reviewed, blood work reviewed WBC 14.3, arterial blood gas reviewed pH 7.43/pCO2 60/pO2 79/serum chemistry sodium 136 BUN 19 creatinine 0.33 calcium of 7.4 08/28/23: Patient seen and evaluated at bedside, patient remains on ventilator through trach, vitals reviewed, FiO2 35% and arterial blood gas reviewed, serum chemistry showed sodium 135 creatinine 0.17 calcium of 7.4 blood glucose of 77, continue antifungal, infectious disease following. Patient transition to Precedex, propofol weaned off 08/29/23: Patient seen and evaluated bedside, planning to wean off ventilator, serial ABGs obtained, spontaneous breathing trial done, serum chemistry reviewed sodium 133, carbon dioxide 38, arterial blood gas shows metabolic alkalosis with respiratory compensation, continue management and medical ICU. 08/30/2023 Patient is a sleepy, she was still on Precedex when seen in the morning Tracheostomy on mechanical ventilation, PEEP of 5 and FiO2 of 35% Blood pressure is 81/35, heart rate 92 Patient has Ortiz catheter with clear yellow urine. Fecal management system. Mild leukocytosis of 12.9 Sputum culture growing Rimma, patient currently on Eraxis and nystatin Also on prednisone 40 mg for her severe COPD seen on CT of the chest Patient also on HIV treatment and normal saline 75 mL/h 08/31/2023 Patient s/p tracheostomy, patient nonverbal today but she open her eyes spontaneously after stopping Precedex yesterday. She able to follow simple commands slowly for example opening her mouth. Other exam is restricted. Patient is still generally weak She is still treated for her pneumonia and COPD exacerbation with Eraxis for culture positive for Rimma and also she is on prednisone 40 mg taper She is to receive HIV medication which is her home medication no other new complaint Plan to discharge to [facility] with pulmonary team recommendation will follow closely for her pneumonia and respiratory failure other medical problem 09/01/2023 Patient today is awake and interactive however nonverbal because of the tracheostomy. 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 We will check creatinine kinase tomorrow She remains on Eraxis and nystatin orally. Prednisone dose lowered to 20 mg today and WBC came back to normal at 9.7. Hemoglobin stable. She remains for HIV treatment 09/02/2023 : Patient seen and evaluated bedside, patient remains on mechanical ventilator through tracheostomy serum chemistry reviewed, sodium 133 potassium 3.5 BUN 19 creatinine 0.2 calcium of 8. Arterial blood gas reviewed pH 7.46, pCO2 48, bicarb 34. Patient is off Precedex, continue to remain disoriented 09/03/23: Patient seen and evaluated bedside, patient is ventilated, blood work reviewed, CBC reviewed hemoglobin 9.6, platelet count 265. Serum chemistry sod ium 133 potassium 4, and 0.15 patient weaned off sedation, weaned off ventilator placed on CPAP settings, pulmonary medicine following PHYSICAL EXAMINATION: GENERAL: The patient is alert and oriented x 1 , Ill-appearing, trach in place, on vent HEENT: Normocephalic, atraumatic. CARDIOVASCULAR: S1 and S2 present. Tachycardia noted PULMONARY: Diminished breath sounds bilaterally with scattered rhonchi noted.. ABDOMEN: Soft, nontender, nondistended, normoactive bowel sounds. No palpable organomegaly. MUSCULOSKELETAL: No joint swelling or deformity. EXTREMITIES: No cyanosis, clubbing, mild generalized edema noted NEUROLOGICAL: Alert however disoriented not following commands Assessment and Plan * Acute hypoxemic hypercapnic respiratory failure requiring intubation on 08/12 status post PEG tube and tracheostomy placement * Acute exacerbation of COPD * S/p tracheostomy * Multifocal pneumonia, with Rimma albicans * Left upper lobe nodule * History of HIV currently on Biktarvy. Viral count and CD4 counts are not know n. No previous history of a persistent infections. The patient has not been receiving any form of antibiotic treatments such as Bactrim. Her infectious disease doctor is Dr. Salguero. The CD4 count is at 81 * Moderate protein calorie malnutrition * Chronic nicotine use * Continue medical management in ICU, seen by pulmonary medicine, infectious disease * In regards to hypoxemic hypercapnic respiratory failure continue patient on mechanical ventilation, s/p PEG tube placement, s/p trach, continue sedation, weaned off propofol, on Precedex which has been weaned off as well. Patient continues to remain encephalopathic, disoriented * In regards to multifocal pneumonia with Rimma albicans continue patient on Eraxis * In regards to malnutrition continue patient on enteral tube feeding * Wean vent as tolerated, tube feeds at goal managed by dietitian * In regards to HIV continue current treatment seen by infectious disease * Prognosis remains guarded Objective - Vital Signs Vital signs: Vital Signs Temp 98.6 F 09/03/23 08:00 Pulse 111 H 09/03/23 09:08 Resp 17 09/03/23 09:00 BP 132/80 09/03/23 09:00 Pulse Ox 98 09/03/23 09:00 FiO2 40 09/03/23 09:05 Intake & Output 09/02/23 09/03/23 09/03/23 18:59 06:59 18:59 Intake Total 1152 116 168 Output Total 2490 900 375 Balance -1338 -784 -207 Weight 62 kg Intake: IV 269 116 6 Anidulafungin 100 mg In 100 Sodium Chloride 0.9% 100 ml @ 84 mls/hr IVPB DAILY @1600 [facility] Rx#:[id number] Normal Saline Pressure 39 36 6 Bag Sodium Chloride 0.9% 1, 130 80 000 ml @ 20 mls/hr IV . Q24H [facility] Rx#:[id number] Intake, IV Titration 40 Amount Sodium Chloride 0.9% 1, 40 000 ml @ 20 mls/hr IV . Q24H [facility] Rx#:[id number] Tube Feeding 793 122 Other 90 Output: Urine 2490 900 375 Other: Voiding Method Indwelling Catheter Indwelling Catheter # Bowel Movements 1 ABP, PAP, CO, CI - Last Documented Arterial Blood Pressure 138/70 - Labs CBC & Chem 7: 09/03/23 06:00 09/03/23 06:00 Labs: Abnormal Lab Results - Last 24 Hours (Table) 09/02/23 09/02/23 09/03/23 Range/Units 11:57 18:41 05:50 RBC (3.80-5.40) m/uL Hgb (11.4-16.0) gm/dL Hct (34.0-46.0) % ABG pH 7.48 H (7.35-7.45) ABG pCO2 46 H (35-45) mmHg ABG pO2 133 H (83-108) mmHg ABG HCO3 34 H (21-25) mmol/L ABG Total CO2 35 H (19-24) mmol/L ABG O2 Saturation 98.9 H (94-97) % Sodium (137-145) mmol/L Carbon Dioxide (22-30) mmol/L BUN (7-17) mg/dL Creatinine (0.52-1.04) mg/dL Glucose (74-99) mg/dL POC Glucose (mg/dL) 133 H 130 H (70-110) mg/dL Calcium (8.4-10.2) mg/dL 09/03/23 09/03/23 Range/Units 06:00 06:00 RBC 3.02 L (3.80-5.40) m/uL Hgb 9.6 L (11.4-16.0) gm/dL Hct 29.5 L (34.0-46.0) % ABG pH (7.35-7.45) ABG pCO2 (35-45) mmHg ABG pO2 (83-108) mmHg ABG HCO3 (21-25) mmol/L ABG Total CO2 (19-24) mmol/L ABG O2 Saturation (94-97) % Sodium 133 L (137-145) mmol/L Carbon Dioxide 34 H (22-30) mmol/L BUN 22 H (7-17) mg/dL Creatinine 0.15 L (0.52-1.04) mg/dL Glucose 102 H (74-99) mg/dL POC Glucose (mg/dL) (70-110) mg/dL Calcium 8.3 L (8.4-10.2) mg/dL
[2023-09-03 17:26] LABS: Glucose,Whole Blood 129 mg/dL (70-110)
--- NOTE | 2023-09-03 19:02 | P.PN ---
Subjective Progress Note Date: 09/03/23 Patient is sitting up in chair. She is awake and alert. She is at goal tube feeds. Neck: Tracheostomy intact. Abdomen: Gastrostomy tube intact. Plan: 1. [facility] when medically stable Objective - Vital Signs Vital signs: Vital Signs Temp 98.1 F 09/03/23 16:00 Pulse 99 09/03/23 18:00 Resp 12 09/03/23 18:00 BP 110/81 09/03/23 18:00 Pulse Ox 99 09/03/23 18:00 FiO2 35 09/03/23 16:00 Intake & Output 09/03/23 09/03/23 09/04/23 06:59 18:59 06:59 Intake Total 116 987 Output Total 900 1782 Balance -784 -795 Weight 62 kg Intake: IV 116 15 Normal Saline Pressure 36 15 Bag Sodium Chloride 0.9% 1, 80 000 ml @ 20 mls/hr IV . Q24H [facility] Rx#:[id number] Intake, IV Titration 240 Amount Sodium Chloride 0.9% 1, 240 000 ml @ 20 mls/hr IV . Q24H [facility] Rx#:[id number] Tube Feeding 732 Output: Urine 900 1782 Other: Voiding Method Indwelling Catheter Indwelling Catheter ABP, PAP, CO, CI - Last Documented Arterial Blood Pressure 109/53 - Labs CBC & Chem 7: 09/03/23 06:00 09/03/23 06:00 Labs: Abnormal Lab Results - Last 24 Hours (Table) 09/03/23 09/03/23 09/03/23 Range/Units 05:50 06:00 06:00 RBC 3.02 L (3.80-5.40) m/uL Hgb 9.6 L (11.4-16.0) gm/dL Hct 29.5 L (34.0-46.0) % ABG pH 7.48 H (7.35-7.45) ABG pCO2 46 H (35-45) mmHg ABG pO2 133 H (83-108) mmHg ABG HCO3 34 H (21-25) mmol/L ABG Total CO2 35 H (19-24) mmol/L ABG O2 Saturation 98.9 H (94-97) % Sodium 133 L (137-145) mmol/L Carbon Dioxide 34 H (22-30) mmol/L BUN 22 H (7-17) mg/dL Creatinine 0.15 L (0.52-1.04) mg/dL Glucose 102 H (74-99) mg/dL POC Glucose (mg/dL) (70-110) mg/dL Calcium 8.3 L (8.4-10.2) mg/dL 09/03/23 09/03/23 Range/Units 11:11 17:24 RBC (3.80-5.40) m/uL Hgb (11.4-16.0) gm/dL Hct (34.0-46.0) % ABG pH (7.35-7.45) ABG pCO2 (35-45) mmHg ABG pO2 (83-108) mmHg ABG HCO3 (21-25) mmol/L ABG Total CO2 (19-24) mmol/L ABG O2 Saturation (94-97) % Sodium (137-145) mmol/L Carbon Dioxide (22-30) mmol/L BUN (7-17) mg/dL Creatinine (0.52-1.04) mg/dL Glucose (74-99) mg/dL POC Glucose (mg/dL) 169 H 129 H (70-110) mg/dL Calcium (8.4-10.2) mg/dL
--- NOTE | 2023-09-03 21:59 | XR ---
EXAMINATION TYPE: XR chest 1V DATE OF EXAM: 09/03/2023 9:50 PM CLINICAL INDICATION:Female, 52 years old with history of Trach/SOB; [facility] COMPARISON: Chest radiographs from same day TECHNIQUE: XR chest 1V Frontal view of the chest. FINDINGS: Lungs/Pleura: There is no evidence of pleural effusion, focal consolidation, or pneumothorax. Pulmonary vascularity: Unremarkable. Heart/mediastinum: Cardiomediastinal silhouette is unremarkable. Musculoskeletal: No acute osseous pathology. Other findings: Right-sided PICC line terminating at the cavoatrial junction. Tracheostomy tube is se en in place. IMPRESSION: No acute cardiopulmonary disease/process.
[2023-09-04 00:24] LABS: Glucose,Whole Blood 106 mg/dL (70-110)
[2023-09-04 05:57] LABS: Glucose,Whole Blood 132 mg/dL (70-110)
[2023-09-04 06:10] LABS: Anion Gap 1 mmol/L; Blood Urea Nitrogen 18 mg/dL (7-17); Calcium 8.7 mg/dL (8.4-10.2); Carbon Dioxide 34 mmol/L (22-30); Chloride 98 mmol/L (98-107); Glucose 104 mg/dL (74-99); Potassium 3.3 mmol/L (3.5-5.1); Sodium 133 mmol/L (137-145)
[2023-09-04 07:03] LABS: HCT 29.6 % (34.0-46.0); HGB 9.9 gm/dL (11.4-16.0); MCH 33.2 pg (25.0-35.0); MCHC 33.4 g/dL (31.0-37.0); MCV 99.4 fL (80.0-100.0); Platelet Count 263 k/uL (150-450); RBC 2.98 m/uL (3.80-5.40); RDW 13.9 % (11.5-15.5); WBC 6.4 k/uL (3.8-10.6)
[2023-09-04 07:15] LABS: African American GFR (CKD) >90 (>60 ml/min/1.73 sqM); Non-African American GFR(CKD) >90 (>60 ml/min/1.73 sqM)
[2023-09-04] MEDS ORDERED: POTASSIUM CHLORIDE 10 MEQ in WATER FOR INJECTION 1 100ML.BAG IVPB SCH (09:15)
[2023-09-04] MEDS: POTASSIUM BICARBONATE/CIT AC 20 MEQ TABLET.EFF NG-TUBE SCH (09:34)
[2023-09-04 11:58] LABS: Glucose,Whole Blood 155 mg/dL (70-110)
--- NOTE | 2023-09-04 12:36 | P.PN ---
Subjective Progress Note Date: 09/04/23 CHIEF COMPLAINT: Respiratory failure HISTORY OF PRESENT ILLNESS: Patient remains in the ICU on mechanical ventilation. She is status post tracheostomy and PEG tube placement. Patient is tolerating tube feeds. Tube feeds are at 61 mL/h. Patient scheduled [facility] be [facility]. Per nursing staff there is an area of excoriation around the trach site. PHYSICAL EXAM: VITAL SIGNS: Reviewed. GENERAL: no acute distress. HEENT: Trach site clean, dry no leak currently ABDOMEN: Soft. Nondistended. Nontender. PEG tube site clean dry and intact ASSESSMENT: 1. Acute hypoxic respiratory failure with difficulty to wean from the vent 2. COPD exacerbation 3. Moderate protein calorie malnutrition 4. History of HIV PLAN: -Continue tube feeds -Continue local wound care to tracheostomy site -Patient scheduled to be discharged to [facility] today Physician Breakdown Worker note has been reviewed by physician. Signing provider agrees with the documented findings, assessment, and plan of care. Objective - Vital Signs Vital signs: Vital Signs Temp 98.1 F 09/04/23 08:00 Pulse 107 H 09/04/23 11:46 Resp 17 09/04/23 11:00 BP 143/91 09/04/23 11:00 Pulse Ox 98 09/04/23 11:00 FiO2 35 09/04/23 11:35 Intake & Output 09/03/23 09/04/23 09/04/23 18:59 06:59 18:59 Intake Total 1168 1062 121 Output Total 1882 620 110 Balance -714 442 11 Weight 55.2 kg 55.2 kg Intake: IV 115 40 Anidulafungin 100 mg In 100 Sodium Chloride 0.9% 100 ml @ 84 mls/hr IVPB DAILY @1600 [facility] Rx#:[id number] Normal Saline Pressure 15 Bag Sodium Chloride 0.9% 1, 40 000 ml @ 20 mls/hr IV . Q24H [facility] Rx#:[id number] Intake, IV Titration 260 240 20 Amount Sodium Chloride 0.9% 1, 260 240 20 000 ml @ 20 mls/hr IV . Q24H [facility] Rx#:[id number] Tube Feeding 793 732 61 Other 90 Output: Urine 1882 620 110 Other: Voiding Method Indwelling Catheter Indwelling Catheter Indwelling Catheter ABP, PAP, CO, CI - Last Documented Arterial Blood Pressure 109/53 - Labs CBC & Chem 7: 09/04/23 05:27 09/04/23 05:35 Labs: Abnormal Lab Results - Last 24 Hours (Table) 09/03/23 09/04/23 09/04/23 Range/Units 17:24 05:27 05:35 RBC 2.98 L (3.80-5.40) m/uL Hgb 9.9 L (11.4-16.0) gm/dL Hct 29.6 L (34.0-46.0) % Sodium 133 L (137-145) mmol/L Potassium 3.3 L (3.5-5.1) mmol/L Carbon Dioxide 34 H (22-30) mmol/L BUN 18 H (7-17) mg/dL Creatinine <0.15 L (0.52-1.04) mg/dL Glucose 104 H (74-99) mg/dL POC Glucose (mg/dL) 129 H (70-110) mg/dL 09/04/23 09/04/23 Range/Units 05:56 11:57 RBC (3.80-5.40) m/uL Hgb (11.4-16.0) gm/dL Hct (34.0-46.0) % Sodium (137-145) mmol/L Potassium (3.5-5.1) mmol/L Carbon Dioxide (22-30) mmol/L BUN (7-17) mg/dL Creatinine (0.52-1.04) mg/dL Glucose (74-99) mg/dL POC Glucose (mg/dL) 132 H 155 H (70-110) mg/dL
--- NOTE | 2023-09-04 12:41 | P.PN ---
Subjective Progress Note Date: 09/04/23 Principal diagnosis: Acute hypoxic respiratory failure secondary to acute exacerbation of COPD This is a 52-year-old female patient with known history of COPD. The patient is maintained on Trelegy Ellipta on outpatient basis and she also has a DuoNeb nebulized treatment to be used on an as-needed basis. She is known to have HIV and currently she is on Biktarvy followed up by Dr. Salguero on outpatient basis regarding her HIV. She is not aware of her recent CD4 counts and viral loads. She has been having issues with increased respiratory distress and [employer] exacerbation for the past 2 to 3 weeks. She received several rounds of antibiotics and steroids for our office for [employer] exacerbation she did not encounter any significant improvement. She ultimately came into the hospital for increased shortness of breath. She was briefly placed on BiPAP and the patient is currently on oxygen at 6 L/min nasal cannula with a pulse ox of 98%. She is quite short of breath even at rest. Not using accessory muscles of breathing. Sodium levels at 126, potassium is 4.3, bicarb is 29, BUN is at 8 with a creatinine of 0.39. WBC count of 4.7 with a hemoglobin of 14.5 and a platelet count of 241. The viral screen came back negative. The chest x-ray shows no acute abnormalities. There is hyperinflation consistent with COPD. Scattered senescent parenchymal changes are seen bilaterally. Findings are essentially consistent with COPD. She was started on bronchodilators with D uoNeb updrafts. She is also on IV Solu-Medrol. She was started on Zithromax as an empiric antibiotic coverage and she is also normal saline at rate of 75 cc an hour. No frequent hospital admissions for COPD exacerbation. Her last admission to the hospital was back in 2021 essentially same presentation. She has been trying to quit smoking and she has not smoked for the past several months. She has been smoking since the age of 11 and she carries more than [id number] smoking history. On 08/11/2023, the patient is being seen for a follow-up. The patient was hospitalized for an acute Exacerbation the patient is feeling better on today's evaluation this bronchospastic and wheezy. She is known to have HIV. Viral constant CD4 counts are still pending for now. She is currently on Zithromax, IV Solu-Medrol, DuoNeb nebulized treatments [id number]. She has failed outpatient treatment for that reason the patient was hospitalized. No fever. No altered mentation. No other new complaints otherwise for now. Oxygenation is stable on 3 L O2 nasal cannula with a pulse ox of 98%. On today's evaluation of 08/12/2023, the patient reports limited improvement since yesterday. Still bronchospastic and wheezy and continues to be short of breath. Maintained on Symbicort and DuoNeb updrafts and maintained on IV Solu- Medrol 60 mg every 6 hours. She remains on empiric antibiotic coverage with IV Zithromax. No nausea vomiting or diarrhea. BUN is at 19 with a creatinine of 0.5 and a sodium levels at 138. No other significant events otherwise for now. The patient has a impaired CD4 count of 81. As such, the patient is high immunosuppressed and she may be potentially at risk of opportunistic infection. Patient continue antiretroviral treatment. Obtain a follow-up chest x-ray tomorrow. On 08/13/2023, the patient is quite lethargic on a BiPAP. Events from yesterday was noted. The patient became progressively more short of breath. She became restless, anxious, along with increased agitation and respiratory distress. The patient accordingly was placed on a BiPAP at a pressure of 12 over 5 cm of water and currently she is on #2 of 60%. She is generating a tidal volume of around about 400 with a minute ventilation of 7.4. Respirate is currently at 18. She is actively bronchospastic and wheezy. Blood gases that was done before the BiPAP utilization showed a pH of 7.24 with a pCO2 of 98 and pO2 of 69. Rest of the labs from today are still pending. A repeat chest x-ray was done this morning and it shows no evidence of any acute cardiopulmonary process. The patient remains on bronchodilators. The patient remains on IV Solu-Medrol 60 mg every 6 hours. As mentioned earlier, her CD4 count was low at 81. Nevertheless, no indication for any opportunistic infections at this point in time. Her temperature is low and the patient is afebrile and hemodynamically stable. She did receive Ativan 1 mg and she seems to be much more comfortable and synchronous with the BiPAP treatment. Will transfer the patient to the intensive care unit. Will repeat her blood gas. Use Precedex if needed. Patient was placed today on 08/14/2023, patient was admitted few days ago, however yesterday patient was intubated and required mechanical ventilation. Patient is now on assist-control rate of 16 tidal volume 350 FiO2 45% and PEEP of 5 ABG on 40% and rate of 16 showed a pO2 of 59 pCO2 51 pH of 7.47 hence I increased the FiO2 to 45% and cut down the rate to 14. Patient will be allowed to have more permissive hypercapnia patient is still requiring significant amount of sedation including propofol at 50 mcg/kg/min Nimbex at 2 mcg/kg/min she is also on Dilaudid [id number], on Lovenox enteral feeding, and IV fluid at 0.9 normal saline at 75 cc/h. Patient is not requiring any pressors or any inotropes. Patient is immunocompromise, she does have history of HIV, and she has very low CD4 count of 81. She is definitely high risk for opportunistic infections, infectious disease was consulted. Considering her gases and considering her physical exam findings, patient is not quite ready for weaning, and I have no plans to wean and extubate today. I will keep the patient presently on Nimbex, she got intubated last night, and will continue broncho dilators, continue steroids, and continue enteral feeding/nutritional support. Chest x-ray this morning showed emphysematous changes, no acute pulmonary process. CT of the brain showed a focal area of hypoattenuation involving the inferior right temporal lobe.May represent an infarct, possibly chronic. BBC count today is 9.2 hemoglobin is 12.5 basic metabolic profile is normal bicarb is 37, renal profile is normal. 09/03/2023, the patient is awake, sitting up on a recliner on a pressure support mode of mechanical ventilation at the pressure of 12 with a PEEP of 5. She is comfortable with the blood gas showed a pH of 7.48 with a pCO2 of 46 and pO2 of 133. She is profoundly weak. Trying to move her extremities and she is involved in physical therapy and passive range of motion. She is still on the same bronchodilators. Prednisone is currently down to 20 mg. She is on vital AF at the rate of 61. She is [facility]. The white cell count is at 7 with a hemoglobin of 9.6 and a platelet count of 265. BUN is 22 with a creatinine 0.15 and a sodium level is at 133 with a potassium level of 4.0. No fever. Mental status is adequate. No agitation. Fluid balance is -2.1 L over the past 24 hours. Patient was reevaluated today on 09/04/2023, remains in the ICU, remains intubated and mechanically ventilated. However the patient is tolerating pressure support quite well. She is on pressure support of 12, and I cut down her pressure support to 10. Patient has been in the ICU now for the last 25 days. She is awake, follows all simple instructions but the patient is extremely and profoundly weak. 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 Patient continues to have tracheostomy in place, and I am not planning to go to [facility] at this point yet, we will try to taper down her pressure support from 12-10. Remains on enteral feeding receiving vital AF at 51 cc/h via PEG tube, this is at goal. Labs today were reviewed she had a WBC count of 6.4 hemoglobin 9.9 basic metabolic profile is normal potassium 3.3 bein g addressed accordingly renal profile is normal. Chest x-ray showed no evidence of pneumonia, patient does have right-sided PICC line terminating in the cavoatrial junction. Tracheostomy is intact her last sputum culture was +08/12 for Rimma albicans, her bronchial washings have been positive for Rimma albicans, patient has been receiving Eraxis all along. Infectious disease will most likely discontinue Eraxis today. Objective - Vital Signs Vital signs: Vital Signs Temp 98.1 F 09/04/23 08:00 Pulse 107 H 09/04/23 11:46 Resp 17 09/04/23 11:00 BP 143/91 09/04/23 11:00 Pulse Ox 98 09/04/23 11:00 FiO2 35 09/04/23 11:35 Intake & Output 09/03/23 09/04/23 09/04/23 18:59 06:59 18:59 Intake Total 1168 1062 121 Output Total 1882 620 110 Balance -714 442 11 Weight 55.2 kg 55.2 kg Intake: IV 115 40 Anidulafungin 100 mg In 100 Sodium Chloride 0.9% 100 ml @ 84 mls/hr IVPB DAILY @1600 [facility] Rx#:[id number] Normal Saline Pressure 15 Bag Sodium Chloride 0.9% 1, 40 000 ml @ 20 mls/hr IV . Q24H [facility] Rx#:[id number] Intake, IV Titration 260 240 20 Amount Sodium Chloride 0.9% 1, 260 240 20 000 ml @ 20 mls/hr IV . Q24H [facility] Rx#:[id number] Tube Feeding 793 732 61 Other 90 Output: Urine 1882 620 110 Other: Voiding Method Indwelling Catheter Indwelling Catheter Indwelling Catheter ABP, PAP, CO, CI - Last Documented Arterial Blood Pressure 109/53 - Exam General: Revealed 52-year-old female, awake, in no distress, she has tracheostomy in place, connected to mechanical ventilation presently on pressure support and CPAP Skin: Skin is warm and dry and no rashes or lesions are noted. Eye: Pupils are equal, round and reactive to light, extra-ocular movements are intact Ears, nose, mouth and throat: There are moist mucous membranes and no oral lesions. Neck: The neck is supple, there is no tenderness or JVD. Cardiovascular: Normal S1-S2, no S3 gallop. No murmur. Respiratory: Good breath sound bilaterally no rhonchi no wheezes Gastrointestinal: Soft nontender no megaly no rebound no guarding Musculoskeletal: Generalized and significant weakness noted bilaterally in upper and lower extremities. Neurological: Alert and oriented x 3, however the patient has profound weakness throughout related to critical illness polyneuropathy Psychiatric: Normal mood, affect and normal mental status examination. Skin: No rashes - Labs CBC & Chem 7: 09/04/23 05:27 09/04/23 05:35 Labs: Abnormal Lab Results - Last 24 Hours (Table) 09/03/23 09/04/23 09/04/23 Range/Units 17:24 05:27 05:35 RBC 2.98 L (3.80-5.40) m/uL Hgb 9.9 L (11.4-16.0) gm/dL Hct 29.6 L (34.0-46.0) % Sodium 133 L (137-145) mmol/L Potassium 3.3 L (3.5-5.1) mmol/L Carbon Dioxide 34 H (22-30) mmol/L BUN 18 H (7-17) mg/dL Creatinine <0.15 L (0.52-1.04) mg/dL Glucose 104 H (74-99) mg/dL POC Glucose (mg/dL) 129 H (70-110) mg/dL 09/04/23 09/04/23 Range/Units 05:56 11:57 RBC (3.80-5.40) m/uL Hgb (11.4-16.0) gm/dL Hct (34.0-46.0) % Sodium (137-145) mmol/L Potassium (3.5-5.1) mmol/L Carbon Dioxide (22-30) mmol/L BUN (7-17) mg/dL Creatinine (0.52-1.04) mg/dL Glucose (74-99) mg/dL POC Glucose (mg/dL) 132 H 155 H (70-110) mg/dL Assessment and Plan Assessment: Impression: Acute hypoxic respiratory failure secondary to acute exacerbation of COPD requiring intubation mechanical ventilation on 08/13/2023. Also requiring tracheostomy for failure to wean continues to have tracheostomy in place, and presently on pressure support mode of mechanical ventilation with CPAP and pressure support of 12 Advanced COPD left upper lobe 9 mm nodule seen on CT of the chest, needs outpatient follow History of HIV,patient has very low CD4 count, she is prone to opportunistic infections, cultures have been negative from BAL, patient is empirically on Levaquin Status post bronchoscopy and BAL 08/12, nondiagnostic Critical illness polyneuropathy with profound weakness Rimma in the sputum/BAL, receiving Eraxis as per ID on the case for Recommendation: Continue ventilatory support, however the patient is now on pressure support of 10 and CPAP. Continue BuSpar for anxiet Continue Seroquel and Zoloft. Continue nutritional support/enteral feeding, patient is on vital AF at 51 cc/h via PEG tube Infectious disease to address her Eraxis Continue bronchodilators Continue GI and DVT prophylaxis Continue the tapering of prednisone Continue on Biktarvy for HIV treatment financial services representative and case management working on possible placement for this patient especially with her critical illness polyneuropathy. Patient is a good candidate for [facility]. Critical care time is over 30 minutes Will continue to follow Time with Patient: Greater than 30
--- NOTE | 2023-09-04 13:06 | P.PN ---
Subjective Progress Note Date: 09/04/23 52-year-old female who initially came into the hospital due to difficulty breathing and cough. Patient was found to have significant COPD exacerbation and required intubation. She continues in the intensive care unit she is on the mechanical ventilator with an FiO2 of 35% with a PEEP of 5. She is currently on an IV Versed and IV fentanyl infusion as well as IV Solu-Medrol. She is currently sedated with propofol. patient is maintained on Biktarvy also for history of HIV. On enteral feedings. Chest x-ray today shows improved aeration of the lung bases. Labs today reveal a white blood cell count of 11.6, sodium 133, BUN of 23, creatinine of 0.29. Her glucose is in the 120s to 130s range. CO2 of 40. Sputum culture was found to be positive for Rimma. She is being considered for trach and PEG tube placement. 08/22/2023 Patient evaluated in follow up today in the ICU. Remains on the mechanical ventilator with FiO2 of 35% and PEEP of 5. Patient is scheduled for PEG/Trach placement today. Remains on IV fentanyl, IV versed, IV propofol, IV solumedrol. Patient is being hydrated with normal saline. Chest xray today shows no focal infiltrates. 08/23/2023 Patient remains in the intensive care unit. Patient is currently on the mechanical ventilator. Patient underwent trach and PEG tube placement today. Remains on IV fentanyl, IV versed, IV propofol, IV solumedrol. Patient remains on Biktarvy. Unable to be considered for rehab or select specialty at this time due to the cost of the Biktarvy medication which will need to be continued at this time. White blood cell count today 13.4, sodium 136, BUN 19, creatinine 0.30. CO2 level 42. Blood glucose 170. 08/24/2023 Patient is evaluated today in the ICU. Patient is postoperative trach and peg tube placement. Remains on mechanical ventilator with FiO2 of 35% and PEEP of 5. Currently on IV fentanyl, IV versed, IV propofol and remains on high dose IV solumedrol. Sputum culture was positive for rimma patient is having worsening WBC today is 15k and ID has recommended to start the patient on IV anidulafungin. Patient is being hydrated with normal saline running at 75 mls/hr. Tube feedings were placed on hold for the PEG tube placement and are to be resumed today. 08/25/2023 Patient evaluated today in the ICU, patient remains on the mechanical ventilator. White blood cell count up to 16.9. Continues on IV anidulafungin. Chest xray today reveals chronic changes without acute cardiopulmonary disease. Patient on IV precedex, IV fentanyl, IV versed, IV propofol. Remains on normal saline. Continues on high dose IV solumedrol. Resumed on enteral feedings. 08/26/2023 Patient seen in follow-up continues to be in the ICU with multiple medical consultations following. Patient remains on mechanical ventilation with an FiO2 of 35%. Patient is currently weaned off Cleviprex and continues on fentanyl. Patient also maintained on antifungal with infectious disease following. Tube feedings at goal and patient is tolerating. Patient is afebrile although white count continues to remain elevated, possibly steroid effect and patient is being transition to oral prednisone. Continue with breathing inhalational treatments and follow-up on chest x-ray. 08/27/23 : Patient seen and evaluated in medical ICU vitals reviewed, blood work reviewed WBC 14.3, arterial blood gas reviewed pH 7.43/pCO2 60/pO2 79/serum chemistry sodium 136 BUN 19 creatinine 0.33 calcium of 7.4 08/28/23: Patient seen and evaluated at bedside, patient remains on ventilator through trach, vitals reviewed, FiO2 35% and arterial blood gas reviewed, serum chemistry showed sodium 135 creatinine 0.17 calcium of 7.4 blood glucose of 77, continue antifungal, infectious disease following. Patient transition to Precedex, propofol weaned off 08/29/23: Patient seen and evaluated bedside, planning to wean off ventilator, serial ABGs obtained, spontaneous breathing trial done, serum chemistry reviewed sodium 133, carbon dioxide 38, arterial blood gas shows metabolic alkalosis with respiratory compensation, continue management and medical ICU. 08/30/2023 Patient is a sleepy, she was still on Precedex when seen in the morning Tracheostomy on mechanical ventilation, PEEP of 5 and FiO2 of 35% Blood pressure is 81/35, heart rate 92 Patient has Ortiz catheter with clear yellow urine. Fecal management system. Mild leukocytosis of 12.9 Sputum culture growing Rimma, patient currently on Eraxis and nystatin Also on prednisone 40 mg for her severe COPD seen on CT of the chest Patient also on HIV treatment and normal saline 75 mL/h 08/31/2023 Patient s/p tracheostomy, patient nonverbal today but she open her eyes spontaneously after stopping Precedex yesterday. She able to follow simple commands slowly for example opening her mouth. Other exam is restricted. Patient is still generally weak She is still treated for her pneumonia and COPD exacerbation with Eraxis for culture positive for Rimma and also she is on prednisone 40 mg taper She is to receive HIV medication which is her home medication no other new complaint Plan to discharge to [facility] with pulmonary team recommendation will follow closely for her pneumonia and respiratory failure other medical problem 09/01/2023 Patient today is awake and interactive however nonverbal because of the tracheostomy. 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 We will check creatinine kinase tomorrow She remains on Eraxis and nystatin orally. Prednisone dose lowered to 20 mg today and WBC came back to normal at 9.7. Hemoglobin stable. She remains for HIV treatment 09/02/2023 : Patient seen and evaluated bedside, patient remains on mechanical ventilator through tracheostomy serum chemistry reviewed, sodium 133 potassium 3.5 BUN 19 creatinine 0.2 calcium of 8. Arterial blood gas reviewed pH 7.46, pCO2 48, bicarb 34. Patient is off Precedex, continue to remain disoriented 09/03/23: Patient seen and evaluated bedside, patient is ventilated, blood work reviewed, CBC reviewed hemoglobin 9.6, platelet count 265. Serum chemistry sod ium 133 potassium 4, and 0.15 patient weaned off sedation, weaned off ventilator placed on CPAP settings, pulmonary medicine following 09/04/23: Patient seen and evaluated at bedside, blood work reviewed hemoglobin 9.9, serum chemistry sodium 133 potassium 3.3, patient remains on ventilator through trach. Potassium replaced and has improved patient does follow commands now PHYSICAL EXAMINATION: GENERAL: The patient is alert and oriented x 2 , Ill-appearing, trach in place, on vent, following commands HEENT: Normocephalic, atraumatic. CARDIOVASCULAR: S1 and S2 present. Tachycardia noted PULMONARY: Diminished breath sounds bilaterally with scattered rhonchi noted.. ABDOMEN: Soft, nontender, nondistended, normoactive bowel sounds. No palpable organomegaly. MUSCULOSKELETAL: No joint swelling or deformity. EXTREMITIES: No cyanosis, clubbing, mild generalized edema noted NEUROLOGICAL: Alert however disoriented not following commands Assessment and Plan * Acute hypoxemic hypercapnic respiratory failure requiring intubation on 08/12 status post PEG tube and tracheostomy placement * Acute exacerbation of COPD * S/p tracheostomy * Multifocal pneumonia, with Rimma albicans * Left upper lobe nodule * History of HIV currently on Biktarvy. Viral count and CD4 counts are not known. No previous history of a persistent infections. The patient has not been receiving any form of antibiotic treatments such as Bactrim. Her infectious disease doctor is Dr. Salguero. The CD4 count is at 81 * Moderate protein calorie malnutrition * Chronic nicotine use * Continue medical management in ICU, seen by pulmonary medicine, infectious disease * In regards to hypoxemic hypercapnic respiratory failure continue patient on mechanical ventilation, s/p PEG tube placement, s/p trach, continue sedation, weaned off propofol, on Precedex which has been weaned off as well. Patient continues to remain encephalopathic, disoriented * In regards to multifocal pneumonia with Rimma albicans continue patient on Eraxis, management infectious disease * In regards to malnutrition continue patient on enteral tube feeding * Wean vent as tolerated, tube feeds at goal managed by dietitian * In regards to HIV continue current treatment seen by infectious disease * Prognosis remains guarded Objective - Vital Signs Vital signs: Vital Signs Temp 99.2 F 09/04/23 04:00 Pulse 104 H 09/04/23 08:19 Resp 21 09/04/23 07:00 BP 135/94 09/04/23 06:00 Pulse Ox 100 09/04/23 07:00 FiO2 35 09/04/23 08:38 Intake & Output 09/03/23 09/04/23 09/04/23 18:59 06:59 18:59 Intake Total 1168 1062 81 Output Total 1882 620 35 Balance -714 442 46 Weight 55.2 kg Intake: IV 115 Anidulafungin 100 mg In 100 Sodium Chloride 0.9% 100 ml @ 84 mls/hr IVPB DAILY @1600 [facility] Rx#:[id number] Normal Saline Pressure 15 Bag Intake, IV Titration 260 240 20 Amount Sodium Chloride 0.9% 1, 260 240 20 000 ml @ 20 mls/hr IV . Q24H [facility] Rx#:[id number] Tube Feeding 793 732 61 Other 90 Output: Urine 1882 620 35 Other: Voiding Method Indwelling Catheter Indwelling Catheter ABP, PAP, CO, CI - Last Documented Arterial Blood Pressure 109/53 - Labs CBC & Chem 7: 09/04/23 05:27 09/04/23 05:35 Labs: Abnormal Lab Results - Last 24 Hours (Table) 09/03/23 09/03/23 09/04/23 Range/Units 11:11 17:24 05:27 RBC 2.98 L (3.80-5.40) m/uL Hgb 9.9 L (11.4-16.0) gm/dL Hct 29.6 L (34.0-46.0) % Sodium (137-145) mmol/L Potassium (3.5-5.1) mmol/L Carbon Dioxide (22-30) mmol/L BUN (7-17) mg/dL Creatinine (0.52-1.04) mg/dL Glucose (74-99) mg/dL POC Glucose (mg/dL) 169 H 129 H (70-110) mg/dL 09/04/23 09/04/23 Range/Units 05:35 05:56 RBC (3.80-5.40) m/uL Hgb (11.4-16.0) gm/dL Hct (34.0-46.0) % Sodium 133 L (137-145) mmol/L Potassium 3.3 L (3.5-5.1) mmol/L Carbon Dioxide 34 H (22-30) mmol/L BUN 18 H (7-17) mg/dL Creatinine <0.15 L (0.52-1.04) mg/dL Glucose 104 H (74-99) mg/dL POC Glucose (mg/dL) 132 H (70-110) mg/dL
[2023-09-04 14:33] LABS: HIV-1 RNA DETECTED (Not detected); HIV-1 RNA, Quant <20 Copies/mL (<20); LOG HIV Copies/mL <1.30 (<1.30)
[2023-09-04 14:49] LABS: Anion Gap 2 mmol/L; Blood Urea Nitrogen 19 mg/dL (7-17); Calcium 8.7 mg/dL (8.4-10.2); Carbon Dioxide 34 mmol/L (22-30); Chloride 97 mmol/L (98-107); Glucose 142 mg/dL (74-99); Potassium 4.8 mmol/L (3.5-5.1); Sodium 133 mmol/L (137-145)
[2023-09-04 14:53] LABS: African American GFR (CKD) >90 (>60 ml/min/1.73 sqM); Non-African American GFR(CKD) >90 (>60 ml/min/1.73 sqM)
[2023-09-04 17:46] LABS: Glucose,Whole Blood 137 mg/dL (70-110)
--- NOTE | 2023-09-04 19:09 | P.PN ---
Subjective Progress Note Date: 09/03/23 Principal diagnosis: Reason for follow-up is HIV and possible pneumonia Patient is a 52-year-old female with a past medical history significant for HIV on Biktarvy, also with a history of COPD presenting to the hospital for evaluation of increasing shortness of breath patient did have worsening respiratory status got intubated, patient did have a CT angiogram of the chest that was negative for PE did shows a lung nodule did not mention any infiltrate or consolidation.Patient is status post tracheostomy completed on 08/23/2023 On today's evaluation that is 09/03/2023,the patient remains to be afebrile, patient is on the vent FiO2 currently at 35% patient is awake and also some simple question patient has been tolerating her tube feeds no other changes reported by the nursing staff. Patient white count of 7.0 creatinine 0.15, HIV RNA is less than 20 Objective - Vital Signs Vital signs: Vital Signs Temp 98.1 F 09/03/23 16:00 Pulse 99 09/03/23 18:00 Resp 12 09/03/23 18:00 BP 110/81 09/03/23 18:00 Pulse Ox 99 09/03/23 18:00 FiO2 35 09/03/23 16:00 Intake & Output 09/02/23 09/03/23 09/03/23 18:59 06:59 18:59 Intake Total 1152 116 906 Output Total 2490 900 1652 [facility] -[phone] Weight 62 kg Intake: IV 269 116 15 Anidulafungin 100 mg In 100 Sodium Chloride 0.9% 100 ml @ 84 mls/hr IVPB DAILY @1600 [facility] Rx#:[id number] Normal Saline Pressure 39 36 15 Bag Sodium Chloride 0.9% 1, 130 80 000 ml @ 20 mls/hr IV . Q24H [facility] Rx#:[id number] Intake, IV Titration 220 Amount Sodium Chloride 0.9% 1, 220 000 ml @ 20 mls/hr IV . Q24H [facility] Rx#:[id number] Tube Feeding 793 671 Other 90 Output: Urine 2490 900 1652 Other: Voiding Method Indwelling Catheter Indwelling Catheter Indwelling Catheter # Bowel Movements 1 ABP, PAP, CO, CI - Last Documented Arterial Blood Pressure 109/53 - Exam GENERAL DESCRIPTION: Middle-aged female intubated on the vent through the trach RESPIRATORY SYSTEM: Unlabored breathing , decreased breath sounds at bases HEART: S1 S2 regular rate and rhythm , ABDOMEN: Soft , no tenderness EXTREMITIES: No edema feet - Labs CBC & Chem 7: 09/04/23 05:27 09/04/23 14:20 Labs: Abnormal Lab Results - Last 24 Hours (Table) 09/02/23 09/03/23 09/03/23 Range/Units 18:41 05:50 06:00 RBC 3.02 L (3.80-5.40) m/uL Hgb 9.6 L (11.4-16.0) gm/dL Hct 29.5 L (34.0-46.0) % ABG pH 7.48 H (7.35-7.45) ABG pCO2 46 H (35-45) mmHg ABG pO2 133 H (83-108) mmHg ABG HCO3 34 H (21-25) mmol/L ABG Total CO2 35 H (19-24) mmol/L ABG O2 Saturation 98.9 H (94-97) % Sodium (137-145) mmol/L Carbon Dioxide (22-30) mmol/L BUN (7-17) mg/dL Creatinine (0.52-1.04) mg/dL Glucose (74-99) mg/dL POC Glucose (mg/dL) 130 H (70-110) mg/dL Calcium (8.4-10.2) mg/dL 09/03/23 09/03/23 09/03/23 Range/Units 06:00 11:11 17:24 RBC (3.80-5.40) m/uL Hgb (11.4-16.0) gm/dL Hct (34.0-46.0) % ABG pH (7.35-7.45) ABG pCO2 (35-45) mmHg ABG pO2 (83-108) mmHg ABG HCO3 (21-25) mmol/L ABG Total CO2 (19-24) mmol/L ABG O2 Saturation (94-97) % Sodium 133 L (137-145) mmol/L Carbon Dioxide 34 H (22-30) mmol/L BUN 22 H (7-17) mg/dL Creatinine 0.15 L (0.52-1.04) mg/dL Glucose 102 H (74-99) mg/dL POC Glucose (mg/dL) 169 H 129 H (70-110) mg/dL Calcium 8.3 L (8.4-10.2) mg/dL Assessment and Plan (1) Acute respiratory failure Current Visit: Yes Status: Acute Code(s): J96.00 - ACUTE RESPIRATORY DONTE LURE, UNSP W HYPOXIA OR HYPERCAPNIA SNOMED Code(s): 16698652 (2) HIV disease Current Visit: No Status: Acute Code(s): B20 - HUMAN IMMUNODEFICIENCY VIRUS [HIV] DISEASE SNOMED Code(s): 07225674 Plan: 1patient presented to hospital with increasing shortness of breath which is likely multifactorial in this patient who did have a history of COPD and likely COPD is a patient with a tracheobronchitis underlying pneumonia less likely but not entirely excluded 2-patient did have a CT angiogram of the chest that was negative for PE did not show any evidence of pneumonia or interstitial infiltrate 3-patient did have a penicillin allergy that will limit the number of antibiotics safe to use 4-patient to continue with Biktarvy for HIV, HIV viral load is undetected 5-patient sputum is growing Rimma which is likely colonization however the patient did have worsening of the white count could be component of oropharyn geal candidiasis, the patient white count has normalized with addition of Eraxis which will be continued over the weekend and continue supportive care Dictation was produced using [employer] dictation software. please excuse any grammatical, word or spelling errors. Time with Patient: Less than 30
--- NOTE | 2023-09-04 19:10 | P.PN ---
Subjective Progress Note Date: 09/04/23 Principal diagnosis: Reason for follow-up is HIV and possible pneumonia Patient is a 52-year-old female with a past medical history significant for HIV on Biktarvy, also with a history of COPD presenting to the hospital for evaluation of increasing shortness of breath patient did have worsening respiratory status got intubated, patient did have a CT angiogram of the chest that was negative for PE did shows a lung nodule did not mention any infiltrate or consolidation.Patient is status post tracheostomy completed on 08/23/2023 On today's evaluation that is 09/04/2023, the patient continues to be afebrile, the patient is on the vent through the trach, patient FiO2 is currently stable at 35% no significant purulent secretions through the ET or any changes reported by the nursing staff. Patient white count 6.4, creatinine 0.15 Objective - Vital Signs Vital signs: Vital Signs Temp 98.1 F 09/04/23 08:00 Pulse 107 H 09/04/23 11:46 Resp 17 09/04/23 11:00 BP 143/91 09/04/23 11:00 Pulse Ox 98 09/04/23 11:00 FiO2 35 09/04/23 11:35 Intake & Output 09/03/23 09/04/23 09/04/23 18:59 06:59 18:59 Intake Total 1168 1062 121 Output Total 1882 620 110 Balance -714 442 11 Weight 55.2 kg 55.2 kg Intake: IV 115 40 Anidulafungin 100 mg In 100 Sodium Chloride 0.9% 100 ml @ 84 mls/hr IVPB DAILY @1600 [facility] Rx#:[id number] Normal Saline Pressure 15 Bag Sodium Chloride 0.9% 1, 40 000 ml @ 20 mls/hr IV . Q24H [facility] Rx#:[id number] Intake, IV Titration 260 240 20 Amount Sodium Chloride 0.9% 1, 260 240 20 000 ml @ 20 mls/hr IV . Q24H [facility] Rx#:[id number] Tube Feeding 793 732 61 Other 90 Output: Urine 1882 620 110 Other: Voiding Method Indwelling Catheter Indwelling Catheter Indwelling Catheter ABP, PAP, CO, CI - Last Documented Arterial Blood Pressure 109/53 - Exam GENERAL DESCRIPTION: Middle-aged female intubated on the vent through the trach RESPIRATORY SYSTEM: Unlabored breathing , decreased breath sounds at bases HEART: S1 S2 regular rate and rhythm , ABDOMEN: Soft , no tenderness EXTREMITIES: No edema feet - Labs CBC & Chem 7: 09/04/23 05:27 09/04/23 14:20 Labs: Abnormal Lab Results - Last 24 Hours (Table) 09/03/23 09/04/23 09/04/23 Range/Units 17:24 05:27 05:35 RBC 2.98 L (3.80-5.40) m/uL Hgb 9.9 L (11.4-16.0) gm/dL Hct 29.6 L (34.0-46.0) % Sodium 133 L (137-145) mmol/L Potassium 3.3 L (3.5-5.1) mmol/L Carbon Dioxide 34 H (22-30) mmol/L BUN 18 H (7-17) mg/dL Creatinine <0.15 L (0.52-1.04) mg/dL Glucose 104 H (74-99) mg/dL POC Glucose (mg/dL) 129 H (70-110) mg/dL 09/04/23 09/04/23 Range/Units 05:56 11:57 RBC (3.80-5.40) m/uL Hgb (11.4-16.0) gm/dL Hct (34.0-46.0) % Sodium (137-145) mmol/L Potassium (3.5-5.1) mmol/L Carbon Dioxide (22-30) mmol/L BUN (7-17) mg/dL Creatinine (0.52-1.04) mg/dL Glucose (74-99) mg/dL POC Glucose (mg/dL) 132 H 155 H (70-110) mg/dL Assessment and Plan (1) Acute respiratory failure Current Visit: Yes Status: Acute Code(s): J96.00 - ACUTE RESPIRATORY FAILURE, UNSP W HYPOXIA OR HYPERCAPNIA SNOMED Code(s): 59367369 (2) HIV disease Current Visit: No Status: Acute Code(s): B20 - HUMAN IMMUNODEFICIENCY VIRUS [HIV] DISEASE SNOMED Code(s): 39875633 Plan: 1patient presented to hospital with increasing shortness of breath which is likely multifactorial in this patient who did have a history of COPD and likely COPD is a patient with a tracheobronchitis underlying pneumonia less likely but not entirely excluded 2-patient did have a CT angiogram of the chest that was negative for PE did not show any evidence of pneumonia or interstitial infiltrate 3-patient did have a penicillin allergy that will limit the number of antibiotics safe to use 4-patient to continue with Biktarvy for HIV, Bactrim DS for PCP prophylaxis, the patient HIV viral load is undetected 5-patient sputum is growing Rimma which is likely colonization however the patient did have worsening of the white count could be component of oropharyngeal candidiasis, the patient white count has normalized with addition of Eraxis which can be discontinued on discharge as the patient has received adequate antifungal therapy Dictation was produced using [employer] dictation software. please excuse any grammatical, word or spelling errors. Time with Patient: Less than 30
[2023-09-04] MEDS: SULFAMETHOX-TMP 800-160MG 1 EACH TAB PO SCH (19:25)
[2023-09-04 23:36] LABS: Glucose,Whole Blood 99 mg/dL (70-110)
[2023-09-05 05:36] LABS: Glucose,Whole Blood 109 mg/dL (70-110)
[2023-09-05 06:25] LABS: HGB 9.7 gm/dL (11.4-16.0); MCH 32.2 pg (25.0-35.0); MCHC 32.4 g/dL (31.0-37.0); MCV 99.2 fL (80.0-100.0); Mean Platelet Volume 7.4; Platelet Count 318 k/uL (150-450); RBC 3.02 m/uL (3.80-5.40); RDW 13.7 % (11.5-15.5)
[2023-09-05 06:37] LABS: African American GFR (CKD) >90 (>60 ml/min/1.73 sqM); Anion Gap 2 mmol/L; Blood Urea Nitrogen 21 mg/dL (7-17); Calcium 8.8 mg/dL (8.4-10.2); Carbon Dioxide 32 mmol/L (22-30); Chloride 97 mmol/L (98-107); Glucose 102 mg/dL (74-99); Non-African American GFR(CKD) >90 (>60 ml/min/1.73 sqM); Sodium 131 mmol/L (137-145)
[2023-09-05 11:56] LABS: Glucose,Whole Blood 152 mg/dL (70-110)
--- NOTE | 2023-09-05 12:24 | P.PN ---
Subjective Progress Note Date: 09/05/23 CHIEF COMPLAINT: Respiratory failure HISTORY OF PRESENT ILLNESS: Patient remains in the ICU on mechanical ventilation. She is status post tracheostomy and PEG tube placement. Patient is tolerating tube feeds. Sitting at bedside chair. PHYSICAL EXAM: VITAL SIGNS: Reviewed. GENERAL: no acute distress. HEENT: Trach site clean, dry no leak currently ABDOMEN: Soft. Nondistended. Nontender. PEG tube site clean dry and intact ASSESSMENT: 1. Acute hypoxic respiratory failure with difficulty to wean from the vent 2. COPD exacerbation 3. Moderate protein calorie malnutrition 4. History of HIV PLAN: -Continue tube feeds -Continue local wound care to tracheostomy site -They are working on discharging patient to ECF when stable Physician Plate Hanger note has been reviewed by physician. Signing provider agrees with the documented findings, assessment, and plan of care. Objective - Vital Signs Vital signs: Vital Signs Temp 98.3 F 09/05/23 08:00 Pulse 99 09/05/23 11:19 Resp 15 09/05/23 11:19 BP 136/79 09/05/23 11:00 Pulse Ox 98 09/05/23 11:00 FiO2 35 09/05/23 11:19 Intake & Output 09/04/23 09/05/23 09/05/23 18:59 06:59 18:59 Intake Total 341 913 153 Output Total 765 775 110 Balance -424 138 43 Weight 55.2 kg 57.5 kg Intake: IV 260 240 100 Anidulafungin 100 mg In 100 Sodium Chloride 0.9% 100 ml @ 84 mls/hr IVPB DAILY @1600 [facility] Rx#:[id number] Sodium Chloride 0.9% 1, 160 240 100 000 ml @ 20 mls/hr IV . Q24H [facility] Rx#:[id number] Intake, IV Titration 20 Amount Sodium Chloride 0.9% 1, 20 000 ml @ 20 mls/hr IV . Q24H [facility] Rx#:[id number] Tube Feeding 61 583 53 Other 90 Output: Urine 765 775 110 Other: Voiding Method Indwelling Catheter Indwelling Catheter Indwelling Catheter ABP, PAP, CO, CI - Last Documented Arterial Blood Pressure 109/53 - Labs CBC & Chem 7: 09/05/23 05:38 09/05/23 05:38 Labs: Abnormal Lab Results - Last 24 Hours (Table) 0509/04/23 09/04/23 Range/Units 05:20 14:20 17:44 RBC (3.80-5.40) m/uL Hgb (11.4-16.0) gm/dL Hct (34.0-46.0) % Sodium 133 L (137-145) mmol/L Chloride 97 L (98-107) mmol/L Carbon Dioxide 34 H (22-30) mmol/L BUN 19 H (7-17) mg/dL Creatinine <0.15 L (0.52-1.04) mg/dL Glucose 142 H (74-99) mg/dL POC Glucose (mg/dL) 137 H (70-110) mg/dL HIV-1 RNA (PCR) DETECTED A (Not detected) 09/05/23 09/05/23 09/05/23 Range/Units 05:38 05:38 11:51 RBC 3.02 L (3.80-5.40) m/uL Hgb 9.7 L (11.4-16.0) gm/dL Hct 30.0 L (34.0-46.0) % Sodium 131 L (137-145) mmol/L Chloride 97 L (98-107) mmol/L Carbon Dioxide 32 H (22-30) mmol/L BUN 21 H (7-17) mg/dL Creatinine 0.17 L (0.52-1.04) mg/dL Glucose 102 H (74-99) mg/dL POC Glucose (mg/dL) 152 H (70-110) mg/dL HIV-1 RNA (PCR) (Not detected) Microbiology - Last 24 Hours (Table) 08/13/23 13:30 Acid Fast Bacilli Smear - Preliminary Sputum Acid Fast Bacilli Culture - Preliminary
[2023-09-05 12:57] LABS: Appearance,Urine Clear (Clear); Bacteria,Urine Rare /hpf; Bilirubin,Urine Negative (Negative); Blood,Urine Trace (Negative); Color,Urine Colorless; Glucose,Urine (UA) Negative (Negative); Ketones,Urine Negative (Negative); Leukocyte Esterase,Urine Negative (Negative); Nitrite,Urine Negative (Negative); Protein,Urine Negative (Negative); RBC,Urine 1 /hpf (0-5); Specific Gravity,Urine 1.003 (1.001-1.035); Urobilinogen,Urine <2.0 mg/dL (<2.0); WBC,Urine 1 /hpf (0-5)
--- NOTE | 2023-09-05 13:04 | P.PN ---
Subjective Progress Note Date: 09/05/23 Principal diagnosis: Acute hypoxic respiratory failure secondary to acute exacerbation of COPD This is a 52-year-old female patient with known history of COPD. The patient is maintained on Trelegy Ellipta on outpatient basis and she also has a DuoNeb nebulized treatment to be used on an as-needed basis. She is known to have HIV and currently she is on Biktarvy followed up by Dr. aSlguero on outpatient basis regarding her HIV. She is not aware of her recent CD4 counts and viral loads. She has been having issues with increased respiratory distress and HEAD BUCKER exacerbation for the past 2 to 3 weeks. She received several rounds of antibiotics and steroids for our office for HEAD BUCKER exacerbation she did not encounter any significant improvement. She ultimately came into the hospital for increased shortness of breath. She was briefly placed on BiPAP and the patient is currently on oxygen at 6 L/min nasal cannula with a pulse ox of 98%. She is quite short of breath even at rest. Not using accessory muscles of breathing. Sodium levels at 126, potassium is 4.3, bicarb is 29, BUN is at 8 with a creatinine of 0.39. WBC count of 4.7 with a hemoglobin of 14.5 and a platelet count of 241. The viral screen came back negative. The chest x-ray shows no acute abnormalities. There is hyperinflation consistent with COPD. Scattered senescent parenchymal changes are seen bilaterally. Findings are essentially consistent with COPD. She was started on bronchodilators with D uoNeb updrafts. She is also on IV Solu-Medrol. She was started on Zithromax as an empiric antibiotic coverage and she is also normal saline at rate of 75 cc an hour. No frequent hospital admissions for COPD exacerbation. Her last admission to the hospital was back in 2021 essentially same presentation. She has been trying to quit smoking and she has not smoked for the past several months. She has been smoking since the age of 11 and she carries more than [id number] smoking history. On 08/11/2023, the patient is being seen for a follow-up. The patient was hospitalized for an acute Exacerbation the patient is feeling better on today's evaluation this bronchospastic and wheezy. She is known to have HIV. Viral constant CD4 counts are still pending for now. She is currently on Zithromax, IV Solu-Medrol, DuoNeb nebulized treatments [id number]. She has failed outpatient treatment for that reason the patient was hospitalized. No fever. No altered mentation. No other new complaints otherwise for now. Oxygenation is stable on 3 L O2 nasal cannula with a pulse ox of 98%. On today's evaluation of 08/12/2023, the patient reports limited improvement since yesterday. Still bronchospastic and wheezy and continues to be short of breath. Maintained on Symbicort and DuoNeb updrafts and maintained on IV Solu- Medrol 60 mg every 6 hours. She remains on empiric antibiotic coverage with IV Zithromax. No nausea vomiting or diarrhea. BUN is at 19 with a creatinine of 0.5 and a sodium levels at 138. No other significant events otherwise for now. The patient has a impaired CD4 count of 81. As such, the patient is high immunosuppressed and she may be potentially at risk of opportunistic infection. Patient continue antiretroviral treatment. Obtain a follow-up chest x-ray tomorrow. On 08/13/2023, the patient is quite lethargic on a BiPAP. Events from yesterday was noted. The patient became progressively more short of breath. She became restless, anxious, along with increased agitation and respiratory distress. The patient accordingly was placed on a BiPAP at a pressure of 12 over 5 cm of water and currently she is on #2 of 60%. She is generating a tidal volume of around about 400 with a minute ventilation of 7.4. Respirate is currently at 18. She is actively bronchospastic and wheezy. Blood gases that was done before the BiPAP utilization showed a pH of 7.24 with a pCO2 of 98 and pO2 of 69. Rest of the labs from today are still pending. A repeat chest x-ray was done this morning and it shows no evidence of any acute cardiopulmonary process. The patient remains on bronchodilators. The patient remains on IV Solu-Medrol 60 mg every 6 hours. As mentioned earlier, her CD4 count was low at 81. Nevertheless, no indication for any opportunistic infections at this point in time. Her temperature is low and the patient is afebrile and hemodynamically stable. She did receive Ativan 1 mg and she seems to be much more comfortable and synchronous with the BiPAP treatment. Will transfer the patient to the intensive care unit. Will repeat her blood gas. Use Precedex if needed. Patient was placed today on 08/14/2023, patient was admitted few days ago, however yesterday patient was intubated and required mechanical ventilation. Patient is now on assist-control rate of 16 tidal volume 350 FiO2 45% and PEEP of 5 ABG on 40% and rate of 16 showed a pO2 of 59 pCO2 51 pH of 7.47 hence I increased the FiO2 to 45% and cut down the rate to 14. Patient will be allowed to have more permissive hypercapnia patient is still requiring significant amount of sedation including propofol at 50 mcg/kg/min Nimbex at 2 mcg/kg/min she is also on Dilaudid [id number], on Lovenox enteral feeding, and IV fluid at 0.9 normal saline at 75 cc/h. Patient is not requiring any pressors or any inotropes. Patient is immunocompromise, she does have history of HIV, and she has very low CD4 count of 81. She is definitely high risk for opportunistic infections, infectious disease was consulted. Considering her gases and considering her physical exam findings, patient is not quite ready for weaning, and I have no plans to wean and extubate today. I will keep the patient presently on Nimbex, she got intubated last night, and will continue broncho dilators, continue steroids, and continue enteral feeding/nutritional support. Chest x-ray this morning showed emphysematous changes, no acute pulmonary process. CT of the brain showed a focal area of hypoattenuation involving the inferior right temporal lobe.May represent an infarct, possibly chronic. BBC count today is 9.2 hemoglobin is 12.5 basic metabolic profile is normal bicarb is 37, renal profile is normal. 09/03/2023, the patient is awake, sitting up on a recliner on a pressure support mode of mechanical ventilation at the pressure of 12 with a PEEP of 5. She is comfortable with the blood gas showed a pH of 7.48 with a pCO2 of 46 and pO2 of 133. She is profoundly weak. Trying to move her extremities and she is involved in physical therapy and passive range of motion. She is still on the same bronchodilators. Prednisone is currently down to 20 mg. She is on vital AF at the rate of 61. She is looking into going into [facility]. The white cell count is at 7 with a hemoglobin of 9.6 and a platelet count of 265. BUN is 22 with a creatinine 0.15 and a sodium level is at 133 with a potassium level of 4.0. No fever. Mental status is adequate. No agitation. Fluid balance is -2.1 L over the past 24 hours. Patient was reevaluated today on 09/04/2023, remains in the ICU, remains intubated and mechanically ventilated. However the patient is tolerating pressure support quite well. She is on pressure support of 12, and I cut down her pressure support to 10. Patient has been in the ICU now for the last 25 days. She is awake, follows all simple instructions but the patient is extremely and profoundly weak. 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 Patient continues to have tracheostomy in place, and I am not planning to go to trach collar at this point yet, we will try to taper down her pressure support from 12-10. Remains on enteral feeding receiving vital AF at 51 cc/h via PEG tube, this is at goal. Labs today were reviewed she had a WBC count of 6.4 hemoglobin 9.9 basic metabolic profile is normal potassium 3.3 bein g addressed accordingly renal profile is normal. Chest x-ray showed no evidence of pneumonia, patient does have right-sided PICC line terminating in the cavoatrial junction. Tracheostomy is intact her last sputum culture was +08/12 for Rimma albicans, her bronchial washings have been positive for Rimma albicans, patient has been receiving Eraxis all along. Infectious disease will most likely discontinue Eraxis today. Patient was reevaluated today on 09/05/2023, patient is now sitting at the bedside chair, remains on pressure support mode of mechanical ventilation, today I gave the patient a trial of trach collar, patient failed within less than 10 minutes, she was noted to be short of breath, tachycardic, tachypneic, and she had to be placed back on pressure support mode of mechanical ventilation with pressure support of 12 and CPAP. Chest x-ray continues to show no evidence of active disease. CBC and basic metabolic profile today are relatively normal, bicarb is 32. Patient was denied transfer to LTAC facility, could not reach her insurance for peer to peer review. Left a message. Meantime we will continue to have daily trials and weaning trials for weaning this patient from mechanical ventilation. 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 Hence in my assessment patient will definitely benefit from transfer to an LTAC facility. They could handle the weaning process over a period of time. She needs physical therapy to get her muscle weakness improved. Objective - Vital Signs Vital signs: Vital Signs Temp 98.3 F 09/05/23 08:00 Pulse 99 09/05/23 11:19 Resp 15 09/05/23 11:19 BP 136/79 09/05/23 11:00 Pulse Ox 98 09/05/23 11:00 FiO2 35 09/05/23 11:19 Intake & Output 09/04/23 09/05/23 09/05/23 18:59 06:59 18:59 Intake Total 341 913 153 Output Total 765 775 110 Balance -424 138 43 Weight 55.2 kg 57.5 kg Intake: IV 260 240 100 Anidulafungin 100 mg In 100 Sodium Chloride 0.9% 100 ml @ 84 mls/hr IVPB DAILY @1600 [facility] Rx#:[id number] Sodium Chloride 0.9% 1, 160 240 100 000 ml @ 20 mls/hr IV . Q24H [facility] Rx#:[id number] Intake, IV Titration 20 Amount Sodium Chloride 0.9% 1, 20 000 ml @ 20 mls/hr IV . Q24H [facility] Rx#:[id number] Tube Feeding 61 583 53 Other 90 Output: Urine 765 775 110 Other: Voiding Method Indwelling Catheter Indwelling Catheter Indwelling Catheter ABP, PAP, CO, CI - Last Documented Arterial Blood Pressure 109/53 - Exam General: Revealed 52-year-old female, awake, in no distress, she has tracheostomy in place, Skin: Skin is warm and dry and no rashes or lesions are noted. Eye: Pupils are equal, round and reactive to light, extra-ocular movements are intact Ears, nose, mouth and throat: There are moist mucous membranes and no oral lesions. Neck: The neck is supple, there is no tenderness or JVD. Tracheostomy is intact. Cardiovascular: Normal S1-S2, no S3 gallop. No murmur. Respiratory: Good breath sound bilaterally no rhonchi no wheezes Gastrointestinal: Soft nontender no megaly no rebound no guarding Musculoskeletal: Generalized and significant weakness noted bilaterally in upper and lower extremities. Neurological: Alert and oriented x 3, however the patient has profound weakness throughout related to critical illness polyneuropathy Psychiatric: Normal mood, affect and normal mental status examination. Skin: No rashes - Labs CBC & Chem 7: 09/05/23 05:38 09/05/23 05:38 Labs: Abnormal Lab Results - Last 24 Hours (Table) 09/02/23 09/04/23 09/04/23 Range/Units 05:20 14:20 17:44 RBC (3.80-5.40) m/uL Hgb (11.4-16.0) gm/dL Hct (34.0-46.0) % Sodium 133 L (137-145) mmol/L Chloride 97 L (98-107) mmol/L Carbon Dioxide 34 H (22-30) mmol/L BUN 19 H (7-17) mg/dL Creatinine <0.15 L (0.52-1.04) mg/dL Glucose 142 H (74-99) mg/dL POC Glucose (mg/dL) 137 H (70-110) mg/dL Urine Blood (Negative) Urine Bacteria (None) /hpf HIV-1 RNA (PCR) DETECTED A (Not detected) 09/05/23 09/05/23 09/05/23 Range/Units 05:38 05:38 11:51 RBC 3.02 L (3.80-5.40) m/uL Hgb 9.7 L (11.4-16.0) gm/dL Hct 30.0 L (34.0-46.0) % Sodium 131 L (137-145) mmol/L Chloride 97 L (98-107) mmol/L Carbon Dioxide 32 H (22-30) mmol/L BUN 21 H (7-17) mg/dL Creatinine 0.17 L (0.52-1.04) mg/dL Glucose 102 H (74-99) mg/dL POC Glucose (mg/dL) 152 H (70-110) mg/dL Urine Blood (Negative) Urine Bacteria (None) /hpf HIV-1 RNA (PCR) (Not detected) 09/05/23 Range/Units 12:37 RBC (3.80-5.40) m/uL Hgb (11.4-16.0) gm/dL Hct (34.0-46.0) % Sodium (137-145) mmol/L Chloride (98-107) mmol/L Carbon Dioxide (22-30) mmol/L BUN (7-17) mg/dL Creatinine (0.52-1.04) mg/dL Glucose (74-99) mg/dL POC Glucose (mg/dL) (70-110) mg/dL Urine Blood Trace H (Negative) Urine Bacteria Rare H (None) /hpf HIV-1 RNA (PCR) (Not detected) Microbiology - Last 24 Hours (Table) 08/13/23 13:30 Acid Fast Bacilli Smear - Preliminary Sputum Acid Fast Bacilli Culture - Preliminary Assessment and Plan Assessment: Impression: Acute hypoxic respiratory failure secondary to acute exacerbation of COPD re quiring intubation mechanical ventilation on 08/13/2023. Also requiring tracheostomy for failure to wean continues to have tracheostomy in place, and presently on pressure support mode of mechanical ventilation with CPAP and pressure support of 12 Advanced COPD left upper lobe 9 mm nodule seen on CT of the chest, needs outpatient follow History of HIV,patient has very low CD4 count, she is prone to opportunistic infections, cultures have been negative from BAL, patient is empirically on Levaquin Status post bronchoscopy and BAL 08/12, nondiagnostic Critical illness polyneuropathy with profound weakness Rimma in the sputum/BAL, receiving Eraxis as per ID on the case Failure to wean from mechanical ventilation, patient is tolerating pressure support mode of mechanical ventilation with CPAP, however she could not tolerate trach collar for more than 10 minutes. Will continue to try daily assessment for weaning but I am strongly recommending transfer to LTAC. Recommendation: Continue ventilatory support, continue to taper down the pressure support she is presently on pressure support of 12 with CPAP Continue BuSpar for anxiet Continue Seroquel and Zoloft. Continue nutritional support/enteral feeding, patient is on vital AF at 51 cc/h via PEG tube Continue bronchodilators Continue GI and DVT prophylaxis Continue the tapering of prednisone Continue on Biktarvy for HIV treatment Chronically recommending LTAC transfer. Patient is a good candidate for [facility]. C Will continue to follow Time with Patient: Less than 30
[2023-09-05 18:55] LABS: Glucose,Whole Blood 130 mg/dL (70-110)
[2023-09-05 23:45] LABS: Glucose,Whole Blood 111 mg/dL (70-110)
[2023-09-06 05:40] LABS: Glucose,Whole Blood 123 mg/dL (70-110)
--- NOTE | 2023-09-06 06:00 | P.PN ---
Subjective Progress Note Date: 09/05/23 52-year-old female who initially came into the hospital due to difficulty breathing and cough. Patient was found to have significant COPD exacerbation and required intubation. She continues in the intensive care unit she is on the mechanical ventilator with an FiO2 of 35% with a PEEP of 5. She is currently on an IV Versed and IV fentanyl infusion as well as IV Solu-Medrol. She is currently sedated with propofol. patient is maintained on Biktarvy also for history of HIV. On enteral feedings. Chest x-ray today shows improved aeration of the lung bases. Labs today reveal a white blood cell count of 11.6, sodium 133, BUN of 23, creatinine of 0.29. Her glucose is in the 120s to 130s range. CO2 of 40. Sputum culture was found to be positive for Sergio. She is being considered for trach and PEG tube placement. 08/22/2023 Patient evaluated in follow up today in the ICU. Remains on the mechanical ventilator with FiO2 of 35% and PEEP of 5. Patient is scheduled for PEG/Trach placement today. Remains on IV fentanyl, IV versed, IV propofol, IV solumedrol. Patient is being hydrated with normal saline. Chest xray today shows no focal infiltrates. 08/23/2023 Patient remains in the intensive care unit. Patient is currently on the mechanical ventilator. Patient underwent trach and PEG tube placement today. Remains on IV fentanyl, IV versed, IV propofol, IV solumedrol. Patient remains on Biktarvy. Unable to be considered for rehab or select specialty at this time due to the cost of the Biktarvy medication which will need to be continued at this time. White blood cell count today 13.4, sodium 136, BUN 19, creatinine 0.30. CO2 level 42. Blood glucose 170. 08/24/2023 Patient is evaluated today in the ICU. Patient is postoperative trach and peg tube placement. Remains on mechanical ventilator with FiO2 of 35% and PEEP of 5. Currently on IV fentanyl, IV versed, IV propofol and remains on high dose IV solumedrol. Sputum culture was positive for sergio patient is having worsening WBC today is 15k and ID has recommended to start the patient on IV anidulafungin. Patient is being hydrated with normal saline running at 75 mls/hr. Tube feedings were placed on hold for the PEG tube placement and are to be resumed today. 08/25/2023 Patient evaluated today in the ICU, patient remains on the mechanical ventilator. White blood cell count up to 16.9. Continues on IV anidulafungin. C hest xray today reveals chronic changes without acute cardiopulmonary disease. Patient on IV precedex, IV fentanyl, IV versed, IV propofol. Remains on normal saline. Continues on high dose IV solumedrol. Resumed on enteral feedings. 08/26/2023 Patient seen in follow-up continues to be in the ICU with multiple medical consultations following. Patient remains on mechanical ventilation with an FiO2 of 35%. Patient is currently weaned off Cleviprex and continues on fentanyl. Patient also maintained on antifungal with infectious disease following. Tube feedings at goal and patient is tolerating. Patient is afebrile although white count continues to remain elevated, possibly steroid effect and patient is being transition to oral prednisone. Continue with breathing inhalational treatments and follow-up on chest x-ray. 08/27/23 : Patient seen and evaluated in medical ICU vitals reviewed, blood work reviewed WBC 14.3, arterial blood gas reviewed pH 7.43/pCO2 60/pO2 79/serum chemistry sodium 136 BUN 19 creatinine 0.33 calcium of 7.4 08/28/23: Patient seen and evaluated at bedside, patient remains on ventilator through trach, vitals reviewed, FiO2 35% and arterial blood gas reviewed, serum chemistry showed sodium 135 creatinine 0.17 calcium of 7.4 blood glucose of 77, continue antifungal, infectious disease following. Patient transition to Precedex, propofol weaned off 08/29/23: Patient seen and evaluated bedside, planning to wean off ventilator, serial ABGs obtained, spontaneous breathing trial done, serum chemistry reviewed sodium 133, carbon dioxide 38, arterial blood gas shows metabolic alkalosis with respiratory compensation, continue management and medical ICU. 08/30/2023 Patient is a sleepy, she was still on Precedex when seen in the morning Tracheostomy on mechanical ventilation, PEEP of 5 and FiO2 of 35% Blood pressure is 81/35, heart rate 92 Patient has Ortiz catheter with clear yellow urine. Fecal management system. Mild leukocytosis of 12.9 Sputum culture growing Sergio, patient currently on Eraxis and nystatin Also on prednisone 40 mg for her severe COPD seen on CT of the chest Patient also on HIV treatment and normal saline 75 mL/h 08/31/2023 Patient s/p tracheostomy, patient nonverbal today but she open her eyes spontaneously after stopping Precedex yesterday. She able to follow simple commands slowly for example opening her mouth. Other exam is restricted. Patient is still generally weak She is still treated for her pneumonia and COPD exacerbation with Eraxis for culture positive for Sergio and also she is on prednisone 40 mg taper She is to receive HIV medication which is her home medication no other new complaint Plan to discharge to select with pulmonary team recommendation will follow closely for her pneumonia and respiratory failure other medical problem 09/01/2023 Patient today is awake and interactive however nonverbal because of the tracheostomy. 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 We will check creatinine kinase tomorrow She remains on Eraxis and nystatin orally. Prednisone dose lowered to 20 mg today and WBC came back to normal at 9.7. Hemoglobin stable. She remains for HIV treatment 09/02/2023 : Patient seen and evaluated bedside, patient remains on mechanical ventilator through tracheostomy serum chemistry reviewed, sodium 133 potassium 3.5 BUN 19 creatinine 0.2 calcium of 8. Arterial blood gas reviewed pH 7.46, pCO2 48, bicarb 34. Patient is off Precedex, continue to remain disoriented 09/03/23: Patient seen and evaluated bedside, patient is ventilated, blood work reviewed, CBC reviewed hemoglobin 9.6, platelet count 265. Serum chemistry sodi um 133 potassium 4, and 0.15 patient weaned off sedation, weaned off ventilator placed on CPAP settings, pulmonary medicine following 09/04/23: Patient seen and evaluated at bedside, blood work reviewed hemoglobin 9.9, serum chemistry sodium 133 potassium 3.3, patient remains on ventilator through trach. Potassium replaced and has improved patient does follow commands now 09/05/2023 Patient is evaluated in follow up in the ICU. Patient is sitting up in the chair with visitor at the bedside. Patient is in good spirits. Able to communicate, alert and oriented. Continues on the ventilator through the trach, did fail an attempt to be weaned to the trach collar today. Continues on enteral feedings. Reports some mild abdominal cramping. White blood cell count normal. Stable hemoglobin. Sodium level 131. Does continue with significant peripheral edema. Review of Systems Constitutional: Denied any fatigue denied any fever. Cardio vascular: denied any chest pain, palpitations Gastrointestinal: denied any nausea, vomiting, diarrhea Pulmonary: Denied any shortness of breath cough Neurologic denied any new focal deficits All inpatient medications were reviewed and appropriate changes in these medications as dictated in the interval history and assessment and plan. PHYSICAL EXAMINATION: GENERAL: The patient is alert and oriented x 2 , Ill-appearing, trach in place, on vent, following commands HEENT: Normocephalic, atraumatic. CARDIOVASCULAR: S1 and S2 present. Tachycardia noted PULMONARY: Diminished breath sounds bilaterally with scattered rhonchi noted.. ABDOMEN: Soft, nontender, nondistended, normoactive bowel sounds. No palpable organomegaly. MUSCULOSKELETAL: No joint swelling or deformity. EXTREMITIES: No cyanosis, clubbing, mild generalized edema noted NEUROLOGICAL: Alert however disoriented not following commands Assessment and Plan -Acute hypoxemic hypercapnic respiratory failure requiring intubation on 08/12 status post PEG tube and tracheostomy placement continues on the mechanical ventilator -Acute exacerbation of COPD -S/p tracheostomy -Hyponatremia -Multifocal pneumonia, with Sergio albicans continue on eraxis while inpatient, mycostatin discontinued -Left upper lobe nodule -History of HIV currently on Biktarvy. Viral count and CD4 counts are not known. No previous history of a persistent infections. The patient has not been receiving any form of antibiotic treatments such as Bactrim. Her infectious disease doctor is Dr. Salguero. The CD4 count is at 81 -Moderate protein calorie malnutrition continues with enteral nutrition -Chronic nicotine use GI prophylaxis DVT prophylaxis Full Code Patient failed an attempt to wean to the trach collar today and remains on the mechanical ventilator. Repeat BMP in the AM. Discharge planning in progress. The impression and plan of care has been dictated by Vangie Barton, Nurse Practitioner as directed. Dr. Dann MD I have performed a history and physical examination and medical decision making of this patient, discussed the same with the dictator, and agree with the dictators assessment and plan as written, documented as a scribe. Based on total visit time, I have performed more than 50% of this visit. Objective - Vital Signs Vital signs: Vital Signs Temp 98.2 F 09/05/23 12:00 Pulse 105 H 09/05/23 14:00 Resp 14 09/05/23 14:00 BP 104/58 09/05/23 14:00 Pulse Ox 98 09/05/23 14:00 FiO2 35 09/05/23 12:00 Intake & Output 09/04/23 09/05/23 09/05/23 18:59 06:59 18:59 Intake Total 341 913 213 Output Total 765 775 116 Balance -424 138 -357 Weight 55.2 kg 57.5 kg Intake: IV 260 240 160 Anidulafungin 100 mg In 100 Sodium Chloride 0.9% 100 ml @ 84 mls/hr IVPB DAILY @1600 [facility] Rx#:[id number] Sodium Chloride 0.9% 1, 160 240 160 000 ml @ 20 mls/hr IV . Q24H [facility] Rx#:[id number] Intake, IV Titration 20 Amount Sodium Chloride 0.9% 1, 20 000 ml @ 20 mls/hr IV . Q24H [facility] Rx#:[id number] Tube Feeding 61 583 53 Other 90 Output: Urine 982 323 827 Other: Voiding Method Indwelling Catheter Indwelling Catheter Indwelling Catheter ABP, PAP, CO, CI - Last Documented Arterial Blood Pressure 109/53 - Labs CBC & Chem 7: 09/05/23 05:38 09/05/23 05:38 Labs: Abnormal Lab Results - Last 24 Hours (Table) 09/04/23 09/04/23 09/05/23 Range/Units 14:20 17:44 05:38 RBC 3.02 L (3.80-5.40) m/uL Hgb 9.7 L (11.4-16.0) gm/dL Hct 30.0 L (34.0-46.0) % Sodium 133 L (137-145) mmol/L Chloride 97 L (98-107) mmol/L Carbon Dioxide 34 H (22-30) mmol/L BUN 19 H (7-17) mg/dL Creatinine <0.15 L (0.52-1.04) mg/dL Glucose 142 H (74-99) mg/dL POC Glucose (mg/dL) 137 H (70-110) mg/dL Urine Blood (Negative) Urine Bacteria (None) /hpf 09/05/23 09/05/23 09/05/23 Range/Units 05:38 11:51 12:37 RBC (3.80-5.40) m/uL Hgb (11.4-16.0) gm/dL Hct (34.0-46.0) % Sodium 131 L (137-145) mmol/L Chloride 97 L (98-107) mmol/L Carbon Dioxide 32 H (22-30) mmol/L BUN 21 H (7-17) mg/dL Creatinine 0.17 L (0.52-1.04) mg/dL Glucose 102 H (74-99) mg/dL POC Glucose (mg/dL) 152 H (70-110) mg/dL Urine Blood Trace H (Negative) Urine Bacteria Rare H (None) /hpf Microbiology - Last 24 Hours (Table) 08/13/23 13:30 Acid Fast Bacilli Smear - Preliminary Sputum Acid Fast Bacilli Culture - Preliminary Assessment and Plan Time with Patient: Less than 30
[2023-09-06 06:22] LABS: Basophils % (A) 0 %; Eosinophils # (A) 0.1 k/uL (0-0.7); Eosinophils % (A) 3 %; HCT 29.1 % (34.0-46.0); HGB 9.5 gm/dL (11.4-16.0); Lymphocytes # (A) 1.2 k/uL (1.0-4.8); Lymphocytes % (A) 33 %; MCH 32.4 pg (25.0-35.0); MCHC 32.6 g/dL (31.0-37.0); MCV 99.3 fL (80.0-100.0); Mean Platelet Volume 7.3; Monocytes # (A) 0.3 k/uL (0-1.0); Monocytes % (A) 8 %; Neutrophils # (A) 2.1 k/uL (1.3-7.7); Neutrophils % (A) 54 %; Platelet Count 311 k/uL (150-450); RBC 2.93 m/uL (3.80-5.40); RDW 13.6 % (11.5-15.5); WBC 3.8 k/uL (3.8-10.6)
[2023-09-06 06:36] LABS: African American GFR (CKD) >90 (>60 ml/min/1.73 sqM); Anion Gap 1 mmol/L; Blood Urea Nitrogen 18 mg/dL (7-17); Calcium 8.9 mg/dL (8.4-10.2); Carbon Dioxide 32 mmol/L (22-30); Chloride 100 mmol/L (98-107); Glucose 125 mg/dL (74-99); Non-African American GFR(CKD) >90 (>60 ml/min/1.73 sqM); Potassium 3.4 mmol/L (3.5-5.1); Sodium 133 mmol/L (137-145)
[2023-09-06] MEDS: POTASSIUM BICARBONATE/CIT AC 20 MEQ TABLET.EFF NG-TUBE SCH (06:42)
--- NOTE | 2023-09-06 10:24 | P.PN ---
Subjective Progress Note Date: 09/06/23 CHIEF COMPLAINT: Respiratory failure HISTORY OF PRESENT ILLNESS: Patient remains in the ICU. She is status post tracheostomy and PEG tube placement. Patient is tolerating tube feeds. Sitting at bedside chair. PHYSICAL EXAM: VITAL SIGNS: Reviewed. GENERAL: no acute distress. HEENT: Trach site clean, dry and intact ABDOMEN: Soft. Nondistended. Nontender. PEG tube site clean dry and intact ASSESSMENT: 1. Acute hypoxic respiratory failure with difficulty to wean from the vent 2. COPD exacerbation 3. Moderate protein calorie malnutrition 4. History of HIV PLAN: -Continue tube feeds -Continue local wound care to tracheostomy site -They are working on discharging patient to ECF when stable Physician Air Bag Curer note has been reviewed by physician. Signing provider agrees with the documented findings, assessment, and plan of care. Objective - Vital Signs Vital signs: Vital Signs Temp 98.6 F 09/06/23 04:00 Pulse 113 H 09/06/23 08:28 Resp 21 09/06/23 08:28 BP 112/74 09/06/23 07:00 Pulse Ox 100 09/06/23 07:00 FiO2 35 09/06/23 08:42 Intake & Output 09/05/23 09/06/23 09/06/23 18:59 06:59 18:59 Intake Total 393 913 73 Output Total 925 930 50 Balance -532 -17 23 Weight 57.9 kg Intake: IV 340 240 20 Anidulafungin 100 mg In 100 Sodium Chloride 0.9% 100 ml @ 84 mls/hr IVPB DAILY @1600 [facility] Rx#:[id number] Sodium Chloride 0.9% 1, 240 240 20 000 ml @ 20 mls/hr IV . Q24H [facility] Rx#:[id number] Tube Feeding 53 583 53 Other 90 Output: Urine 925 930 50 Other: Voiding Method Indwelling Catheter Indwelling Catheter ABP, PAP, CO, CI - Last Documented Arterial Blood Pressure 109/53 - Labs CBC & Chem 7: 09/06/23 06:10 09/06/23 06:10 Labs: Abnormal Lab Results - Last 24 Hours (Table) 09/05/23 09/05/23 09/05/23 Range/Units 11:51 12:37 18:53 RBC (3.80-5.40) m/uL Hgb (11.4-16.0) gm/dL Hct (34.0-46.0) % Sodium (137-145) mmol/L Potassium (3.5-5.1) mmol/L Carbon Dioxide (22-30) mmol/L BUN (7-17) mg/dL Creatinine (0.52-1.04) mg/dL Glucose (74-99) mg/dL POC Glucose (mg/dL) 152 H 130 H (70-110) mg/dL Urine Blood Trace H (Negative) Urine Bacteria Rare H (None) /hpf 09/05/23 09/06/23 09/06/23 Range/Units 23:43 05:38 06:10 RBC 2.93 L (3.80-5.40) m/uL Hgb 9.5 L (11.4-16.0) gm/dL Hct 29.1 L (34.0-46.0) % Sodium (137-145) mmol/L Potassium (3.5-5.1) mmol/L Carbon Dioxide (22-30) mmol/L BUN (7-17) mg/dL Creatinine (0.52-1.04) mg/dL Glucose (74-99) mg/dL POC Glucose (mg/dL) 111 H 123 H (70-110) mg/dL Urine Blood (Negative) Urine Bacteria (None) /hpf 09/06/23 Range/Units 06:10 RBC (3.80-5.40) m/uL Hgb (11.4-16.0) gm/dL Hct (34.0-46.0) % Sodium 133 L (137-145) mmol/L Potassium 3.4 L (3.5-5.1) mmol/L Carbon Dioxide 32 H (22-30) mmol/L BUN 18 H (7-17) mg/dL Creatinine 0.18 L (0.52-1.04) mg/dL Glucose 125 H (74-99) mg/dL POC Glucose (mg/dL) (70-110) mg/dL Urine Blood (Negative) Urine Bacteria (None) /hpf
--- NOTE | 2023-09-06 11:14 | P.PN ---
Subjective Progress Note Date: 09/06/23 Principal diagnosis: Acute hypoxic respiratory failure secondary to acute exacerbation of COPD This is a 52-year-old female patient with known history of COPD. The patient is maintained on Trelegy Ellipta on outpatient basis and she also has a DuoNeb nebulized treatment to be used on an as-needed basis. She is known to have HIV and currently she is on Biktarvy followed up by Dr. Salguero on outpatient basis regarding her HIV. She is not aware of her recent CD4 counts and viral loads. She has been having issues with increased respiratory distress and [employer] exacerbation for the past 2 to 3 weeks. She received several rounds of antibiotics and steroids for our office for [employer] exacerbation she did not encounter any significant improvement. She ultimately came into the hospital for increased shortness of breath. She was briefly placed on BiPAP and the patient is currently on oxygen at 6 L/min nasal cannula with a pulse ox of 98%. She is quite short of breath even at rest. Not using accessory muscles of breathing. Sodium levels at 126, potassium is 4.3, bicarb is 29, BUN is at 8 with a creatinine of 0.39. WBC count of 4.7 with a hemoglobin of 14.5 and a platelet count of 241. The viral screen came back negative. The chest x-ray shows no acute abnormalities. There is hyperinflation consistent with COPD. Scattered senescent parenchymal changes are seen bilaterally. Findings are essentially consistent with COPD. She was started on bronchodilators with D uoNeb updrafts. She is also on IV Solu-Medrol. She was started on Zithromax as an empiric antibiotic coverage and she is also normal saline at rate of 75 cc an hour. No frequent hospital admissions for COPD exacerbation. Her last admission to the hospital was back in 2021 essentially same presentation. She has been trying to quit smoking and she has not smoked for the past several months. She has been smoking since the age of 11 and she carries more than [id number] smoking history. On 08/11/2023, the patient is being seen for a follow-up. The patient was hospitalized for an acute Exacerbation the patient is feeling better on today's evaluation this bronchospastic and wheezy. She is known to have HIV. Viral constant CD4 counts are still pending for now. She is currently on Zithromax, IV Solu-Medrol, DuoNeb nebulized treatments [id number]. She has failed outpatient treatment for that reason the patient was hospitalized. No fever. No altered mentation. No other new complaints otherwise for now. Oxygenation is stable on 3 L O2 nasal cannula with a pulse ox of 98%. On today's evaluation of 08/12/2023, the patient reports limited improvement since yesterday. Still bronchospastic and wheezy and continues to be short of breath. Maintained on Symbicort and DuoNeb updrafts and maintained on IV Solu- Medrol 60 mg every 6 hours. She remains on empiric antibiotic coverage with IV Zithromax. No nausea vomiting or diarrhea. BUN is at 19 with a creatinine of 0.5 and a sodium levels at 138. No other significant events otherwise for now. The patient has a impaired CD4 count of 81. As such, the patient is high immunosuppressed and she may be potentially at risk of opportunistic infection. Patient continue antiretroviral treatment. Obtain a follow-up chest x-ray tomorrow. On 08/13/2023, the patient is quite lethargic on a BiPAP. Events from yesterday was noted. The patient became progressively more short of breath. She became restless, anxious, along with increased agitation and respiratory distress. The patient accordingly was placed on a BiPAP at a pressure of 12 over 5 cm of water and currently she is on #2 of 60%. She is generating a tidal volume of around about 400 with a minute ventilation of 7.4. Respirate is currently at 18. She is actively bronchospastic and wheezy. Blood gases that was done before the BiPAP utilization showed a pH of 7.24 with a pCO2 of 98 and pO2 of 69. Rest of the labs from today are still pending. A repeat chest x-ray was done this morning and it shows no evidence of any acute cardiopulmonary process. The patient remains on bronchodilators. The patient remains on IV Solu-Medrol 60 mg every 6 hours. As mentioned earlier, her CD4 count was low at 81. Nevertheless, no indication for any opportunistic infections at this point in time. Her temperature is low and the patient is afebrile and hemodynamically stable. She did receive Ativan 1 mg and she seems to be much more comfortable and synchronous with the BiPAP treatment. Will transfer the patient to the intensive care unit. Will repeat her blood gas. Use Precedex if needed. Patient was placed today on 08/14/2023, patient was admitted few days ago, however yesterday patient was intubated and required mechanical ventilation. Patient is now on assist-control rate of 16 tidal volume 350 FiO2 45% and PEEP of 5 ABG on 40% and rate of 16 showed a pO2 of 59 pCO2 51 pH of 7.47 hence I increased the FiO2 to 45% and cut down the rate to 14. Patient will be allowed to have more permissive hypercapnia patient is still requiring significant amount of sedation including propofol at 50 mcg/kg/min Nimbex at 2 mcg/kg/min she is also on Dilaudid [id number], on Lovenox enteral feeding, and IV fluid at 0.9 normal saline at 75 cc/h. Patient is not requiring any pressors or any inotropes. Patient is immunocompromise, she does have history of HIV, and she has very low CD4 count of 81. She is definitely high risk for opportunistic infections, infectious disease was consulted. Considering her gases and considering her physical exam findings, patient is not quite ready for weaning, and I have no plans to wean and extubate today. I will keep the patient presently on Nimbex, she got intubated last night, and will continue broncho dilators, continue steroids, and continue enteral feeding/nutritional support. Chest x-ray this morning showed emphysematous changes, no acute pulmonary process. CT of the brain showed a focal area of hypoattenuation involving the inferior right temporal lobe.May represent an infarct, possibly chronic. BBC count today is 9.2 hemoglobin is 12.5 basic metabolic profile is normal bicarb is 37, renal profile is normal. 09/03/2023, the patient is awake, sitting up on a recliner on a pressure support mode of mechanical ventilation at the pressure of 12 with a PEEP of 5. She is comfortable with the blood gas showed a pH of 7.48 with a pCO2 of 46 and pO2 of 133. She is profoundly weak. Trying to move her extremities and she is involved in physical therapy and passive range of motion. She is still on the same bronchodilators. Prednisone is currently down to 20 mg. She is on vital AF at the rate of 61. She is looking into going into [facility]. The white cell count is at 7 with a hemoglobin of 9.6 and a platelet count of 265. BUN is 22 with a creatinine 0.15 and a sodium level is at 133 with a potassium level of 4.0. No fever. Mental status is adequate. No agitation. Fluid balance is -2.1 L over the past 24 hours. Patient was reevaluated today on 09/04/2023, remains in the ICU, remains intubated and mechanically ventilated. However the patient is tolerating pressure support quite well. She is on pressure support of 12, and I cut down her pressure support to 10. Patient has been in the ICU now for the last 25 days. She is awake, follows all simple instructions but the patient is extremely and profoundly weak. 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 Patient continues to have tracheostomy in place, and I am not planning to go to trach collar at this point yet, we will try to taper down her pressure support from 12-10. Remains on enteral feeding receiving vital AF at 51 cc/h via PEG tube, this is at goal. Labs today were reviewed she had a WBC count of 6.4 hemoglobin 9.9 basic metabolic profile is normal potassium 3.3 bein g addressed accordingly renal profile is normal. Chest x-ray showed no evidence of pneumonia, patient does have right-sided PICC line terminating in the cavoatrial junction. Tracheostomy is intact her last sputum culture was +08/12 for Rimma albicans, her bronchial washings have been positive for Rimma albicans, patient has been receiving Eraxis all along. Infectious disease will most likely discontinue Eraxis today. Patient was reevaluated today on 09/05/2023, patient is now sitting at the bedside chair, remains on pressure support mode of mechanical ventilation, today I gave the patient a trial of trach collar, patient failed within less than 10 minutes, she was noted to be short of breath, tachycardic, tachypneic, and she had to be placed back on pressure support mode of mechanical ventilation with pressure support of 12 and CPAP. Chest x-ray continues to show no evidence of active disease. CBC and basic metabolic profile today are relatively normal, bicarb is 32. Patient was denied transfer to LTAC facility, could not reach her insurance for peer to peer review. Left a message. Meantime we will continue to have daily trials and weaning trials for weaning this patient from mechanical ventilation. 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 Hence in my assessment patient will definitely benefit from transfer to an LTAC facility. They could handle the weaning process over a period of time. She needs physical therapy to get her muscle weakness improved. Patient was reevaluated today on 09/06/2023, patient has been doing fairly well over the last 24 hours with pressure support only of 14, however the patient seems to be tiring out, and seems to be developing more shortness of breath today compared to yesterday. She is getting a bit restless agitated, tachypneic and tachycardic, I tried the patient on IMV mode along with pressure support con tinue to do poorly, hence I transitioned the patient completely to assist- control mode of mechanical ventilation with assist-control rate of 12 tidal volume 400 FiO2 35% and PEEP of 5 obviously the patient is not ready to be weaned further and she is not doing great with pressure support only but she did well for 24 hours my plan today is to rest her back on assist-control mode of mechanical ventilation. Patient is getting nutritional support via PEG tube, she is on Eraxis and on Bactrim. Chest x-ray continues to show no evidence of infiltrate. WBC count today is 3.8 hemoglobin 9.5 basic metabolic profile is normal potassium is a bit low at 3.4 BUN is 18 creatinine 0.18. Patient remains on Biktarvy, patient is also on prednisone 20 mg daily. Remains on bronchodilators/DuoNeb updrafts and she is also on Pulmicort and Perforomist. Objective - Vital Signs Vital signs: Vital Signs Temp 98.4 F 09/06/23 08:00 Pulse 98 09/06/23 10:00 Resp 19 09/06/23 10:00 BP 105/58 09/06/23 10:00 Pulse Ox 97 09/06/23 10:00 FiO2 35 09/06/23 10:00 Intake & Output 09/05/23 09/06/23 09/06/23 18:59 06:59 18:59 Intake Total 393 913 73 Output Total 680 930 50 Balance -532 -17 23 Weight 57.9 kg Intake: IV 340 240 20 Anidulafungin 100 mg In 100 Sodium Chloride 0.9% 100 ml @ 84 mls/hr IVPB DAILY @1600 [facility] Rx#:[id number] Sodium Chloride 0.9% 1, 240 240 20 000 ml @ 20 mls/hr IV . Q24H [facility] Rx#:[id number] Tube Feeding 53 583 53 Other 90 Output: Urine 925 930 50 Other: Voiding Method Indwelling Catheter Indwelling Catheter # Bowel Movements 1 ABP, PAP, CO, CI - Last Documented Arterial Blood Pressure 109/53 - Exam General: Revealed 52-year-old female, awake, i seems to be in mild distress on pressure support mode of mechanical ventilation. Skin: Skin is warm and dry and no rashes or lesions are noted. Eye: Pupils are equal, round and reactive to light, extra-ocular movements are intact Ears, nose, mouth and throat: There are moist mucous membranes and no oral lesions. Neck: The neck is supple, there is no tenderness or JVD. Tracheostomy is intact. Cardiovascular: Normal S1-S2, no S3 gallop. No murmur. Respiratory: Good breath sound bilaterally no rhonchi no wheezes Gastrointestinal: Soft nontender no megaly no rebound no guarding Musculoskeletal: Generalized and significant weakness noted bilaterally in upper and lower extremities. Neurological: Alert and oriented x 3, however the patient has profound weakness throughout related to critical illness polyneuropathy Psychiatric: Normal mood, affect and normal mental status examination. Skin: No rashes - Labs CBC & Chem 7: 09/06/23 06:10 09/06/23 06:10 Labs: Abnormal Lab Results - Last 24 Hours (Table) 09/05/23 09/05/23 09/05/23 Range/Units 11:51 12:37 18:53 RBC (3.80-5.40) m/uL Hgb (11.4-16.0) gm/dL Hct (34.0-46.0) % Sodium (137-145) mmol/L Potassium (3.5-5.1) mmol/L Carbon Dioxide (22-30) mmol/L BUN (7-17) mg/dL Creatinine (0.52-1.04) mg/dL Glucose (74-99) mg/dL POC Glucose (mg/dL) 152 H 130 H (70-110) mg/dL Urine Blood Trace H (Negative) Urine Bacteria Rare H (None) /hpf 09/05/23 09/06/23 09/06/23 Range/Units 23:43 05:38 06:10 RBC 2.93 L (3.80-5.40) m/uL Hgb 9.5 L (11.4-16.0) gm/dL Hct 29.1 L (34.0-46.0) % Sodium (137-145) mmol/L Potassium (3.5-5.1) mmol/L Carbon Dioxide (22-30) mmol/L BUN (7-17) mg/dL Creatinine (0.52-1.04) mg/dL Glucose (74-99) mg/dL POC Glucose (mg/dL) 111 H 123 H (70-110) mg/dL Urine Blood (Negative) Urine Bacteria (None) /hpf 09/06/23 Range/Units 06:10 RBC (3.80-5.40) m/uL Hgb (11.4-16.0) gm/dL Hct (34.0-46.0) % Sodium 133 L (137-145) mmol/L Potassium 3.4 L (3.5-5.1) mmol/L Carbon Dioxide 32 H (22-30) mmol/L BUN 18 H (7-17) mg/dL Creatinine 0.18 L (0.52-1.04) mg/dL Glucose 125 H (74-99) mg/dL POC Glucose (mg/dL) (70-110) mg/dL Urine Blood (Negative) Urine Bacteria (None) /hpf Assessment and Plan Assessment: Impression: Acute hypoxic respiratory failure secondary to acute exacerbation of COPD requiring intubation mechanical ventilation on 08/13/2023. Also requiring tracheostomy for failure to wean continues to have tracheostomy in place, patient tolerated pressure support for mechanical ventilation for about 24 hours, however today I am switching her back to assist mode with volume control. Advanced COPD left upper lobe 9 mm nodule seen on CT of the chest, needs outpatient follow History of HIV,patient has very low CD4 count, she is prone to opportunistic infections, cultures have been negative from BAL, patient is empirically on Levaquin Status post bronchoscopy and BAL 08/12, nondiagnostic Critical illness polyneuropathy with profound weakness Rimma in the sputum/BAL, receiving Eraxis as per ID on the case Failure to wean from mechanical ventilation, still recommend patient needs to have to be transferred to LTAC facility. Recommendation: Placed back on assist mode of mechanical ventilation today. Patient is having difficulty with pressure support and did not tolerate pressure support with IMV mode. Continue BuSpar for anxiet Continue Seroquel and Zoloft. Continue nutritional support/enteral feeding, patient is on vital AF at 51 cc/h via PEG tube Continue bronchodilators Continue GI and DVT prophylaxis Continue the tapering of prednisone Continue on Biktarvy for HIV treatment, continue Bactrim, and Eraxis to be decided upon by infectious disease I am still recommending that the patient needs LTAC facility for further weaning Patient remains critically ill, critical care time is over 30-minute Will continue to follow Time with Patient: Greater than 30
[2023-09-06 11:53] LABS: Glucose,Whole Blood 161 mg/dL (70-110)
--- NOTE | 2023-09-06 12:02 | XR ---
EXAMINATION TYPE: XR chest 1V portable DATE OF EXAM: 09/06/2023 Comparison: 09/03/2023 Clinical History: 52-year-old female respiratory assessment Findings: Tracheostomy cannula. Right PICC tip lower SVC. Heart normal size. Mild hyperinflation. Interstitial density appears to be improving. No consolidation or pleural effusion. Impression: Suspect underlying COPD. Aeration appears to have improved. No definite acute process.
--- NOTE | 2023-09-06 15:45 | P.PN ---
Subjective Progress Note Date: 09/06/23 52-year-old female who initially came into the hospital due to difficulty breathing and cough. Patient was found to have significant COPD exacerbation and required intubation. She continues in the intensive care unit she is on the mechanical ventilator with an FiO2 of 35% with a PEEP of 5. She is currently on an IV Versed and IV fentanyl infusion as well as IV Solu-Medrol. She is currently sedated with propofol. patient is maintained on Biktarvy also for history of HIV. On enteral feedings. Chest x-ray today shows improved aeration of the lung bases. Labs today reveal a white blood cell count of 11.6, sodium 133, BUN of 23, creatinine of 0.29. Her glucose is in the 120s to 130s range. CO2 of 40. Sputum culture was found to be positive for Rimma. She is being considered for trach and PEG tube placement. 08/22/2023 Patient evaluated in follow up today in the ICU. Remains on the mechanical ventilator with FiO2 of 35% and PEEP of 5. Patient is scheduled for PEG/Trach placement today. Remains on IV fentanyl, IV versed, IV propofol, IV solumedrol. Patient is being hydrated with normal saline. Chest xray today shows no focal infiltrates. 08/23/2023 Patient remains in the intensive care unit. Patient is currently on the mechanical ventilator. Patient underwent trach and PEG tube placement today. Remains on IV fentanyl, IV versed, IV propofol, IV solumedrol. Patient remains on Biktarvy. Unable to be considered for rehab or select specialty at this time due to the cost of the Biktarvy medication which will need to be continued at this time. White blood cell count today 13.4, sodium 136, BUN 19, creatinine 0.30. CO2 level 42. Blood glucose 170. 08/24/2023 Patient is evaluated today in the ICU. Patient is postoperative trach and peg tube placement. Remains on mechanical ventilator with FiO2 of 35% and PEEP of 5. Currently on IV fentanyl, IV versed, IV propofol and remains on high dose IV solumedrol. Sputum culture was positive for rimma patient is having worsening WBC today is 15k and ID has recommended to start the patient on IV anidulafungin. Patient is being hydrated with normal saline running at 75 mls/hr. Tube feedings were placed on hold for the PEG tube placement and are to be resumed today. 08/25/2023 Patient evaluated today in the ICU, patient remains on the mechanical ventilator. White blood cell count up to 16.9. Continues on IV anidulafungin. C hest xray today reveals chronic changes without acute cardiopulmonary disease. Patient on IV precedex, IV fentanyl, IV versed, IV propofol. Remains on normal saline. Continues on high dose IV solumedrol. Resumed on enteral feedings. 08/26/2023 Patient seen in follow-up continues to be in the ICU with multiple medical consultations following. Patient remains on mechanical ventilation with an FiO2 of 35%. Patient is currently weaned off Cleviprex and continues on fentanyl. Patient also maintained on antifungal with infectious disease following. Tube feedings at goal and patient is tolerating. Patient is afebrile although white count continues to remain elevated, possibly steroid effect and patient is being transition to oral prednisone. Continue with breathing inhalational treatments and follow-up on chest x-ray. 08/27/23 : Patient seen and evaluated in medical ICU vitals reviewed, blood work reviewed WBC 14.3, arterial blood gas reviewed pH 7.43/pCO2 60/pO2 79/serum chemistry sodium 136 BUN 19 creatinine 0.33 calcium of 7.4 08/28/23: Patient seen and evaluated at bedside, patient remains on ventilator through trach, vitals reviewed, FiO2 35% and arterial blood gas reviewed, serum chemistry showed sodium 135 creatinine 0.17 calcium of 7.4 blood glucose of 77, continue antifungal, infectious disease following. Patient transition to Precedex, propofol weaned off 08/29/23: Patient seen and evaluated bedside, planning to wean off ventilator, serial ABGs obtained, spontaneous breathing trial done, serum chemistry reviewed sodium 133, carbon dioxide 38, arterial blood gas shows metabolic alkalosis with respiratory compensation, continue management and medical ICU. 08/30/2023 Patient is a sleepy, she was still on Precedex when seen in the morning Tracheostomy on mechanical ventilation, PEEP of 5 and FiO2 of 35% Blood pressure is 81/35, heart rate 92 Patient has Ortiz catheter with clear yellow urine. Fecal management system. Mild leukocytosis of 12.9 Sputum culture growing Rimma, patient currently on Eraxis and nystatin Also on prednisone 40 mg for her severe COPD seen on CT of the chest Patient also on HIV treatment and normal saline 75 mL/h 08/31/2023 Patient s/p tracheostomy, patient nonverbal today but she open her eyes spontaneously after stopping Precedex yesterday. She able to follow simple commands slowly for example opening her mouth. Other exam is restricted. Patient is still generally weak She is still treated for her pneumonia and COPD exacerbation with Eraxis for culture positive for Rimma and also she is on prednisone 40 mg taper She is to receive HIV medication which is her home medication no other new complaint Plan to discharge to select with pulmonary team recommendation will follow closely for her pneumonia and respiratory failure other medical problem 09/01/2023 Patient today is awake and interactive however nonverbal because of the tracheostomy. 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 We will check creatinine kinase tomorrow She remains on Eraxis and nystatin orally. Prednisone dose lowered to 20 mg today and WBC came back to normal at 9.7. Hemoglobin stable. She remains for HIV treatment 09/02/2023 : Patient seen and evaluated bedside, patient remains on mechanical ventilator through tracheostomy serum chemistry reviewed, sodium 133 potassium 3.5 BUN 19 creatinine 0.2 calcium of 8. Arterial blood gas reviewed pH 7.46, pCO2 48, bicarb 34. Patient is off Precedex, continue to remain disoriented 09/03/23: Patient seen and evaluated bedside, patient is ventilated, blood work reviewed, CBC reviewed hemoglobin 9.6, platelet count 265. Serum chemistry sodi um 133 potassium 4, and 0.15 patient weaned off sedation, weaned off ventilator placed on CPAP settings, pulmonary medicine following 09/04/23: Patient seen and evaluated at bedside, blood work reviewed hemoglobin 9.9, serum chemistry sodium 133 potassium 3.3, patient remains on ventilator through trach. Potassium replaced and has improved patient does follow commands now 09/05/2023 Patient is evaluated in follow up in the ICU. Patient is sitting up in the chair with visitor at the bedside. Patient is in good spirits. Able to communicate, alert and oriented. Continues on the ventilator through the trach, did fail an attempt to be weaned to the trach collar today. Continues on enteral feedings. Reports some mild abdominal cramping. White blood cell count normal. Stable hemoglobin. Sodium level 131. Does continue with significant peripheral edema. 09/06/2023 Patient is evaluated in follow-up today in the intensive care unit. She is currently sitting up at the bedside. Patient has been frustrated today with attempts at communication. She remains on the mechanical ventilator through the trach currently on an FiO2 of 35% with oxygen saturations in the high 90s. Patient will continue IV Eraxis while inpatient with no further antibiotics needed on discharge. Chest x-ray today which shows underlying COPD aeration appears to have improved with no definite acute process. Patient is pending a peer to peer for patient to discharge to LTAC. Review of Systems Constitutional: Denied any fatigue denied any fever. Cardio vascular: denied any chest pain , palpitations Gastrointestinal: denied any nausea, vomiting, diarrhea Pulmonary: Denied any shortness of breath cough Neurologic denied any new focal deficits All inpatient medications were reviewed and appropriate changes in these medications as dictated in the interval history and assessment and plan. PHYSICAL EXAMINATION: GENERAL: The patient is alert and oriented x 3 , Ill-appearing, trach in place, on vent, following commands HEENT: Normocephalic, atraumatic. CARDIOVASCULAR: S1 and S2 present. Tachycardia noted PULMONARY: Diminished breath sounds bilaterally with scattered rhonchi noted.. ABDOMEN: Soft, nontender, nondistended, normoactive bowel sounds. No palpable organomegaly. MUSCULOSKELETAL: No joint swelling or deformity. EXTREMITIES: No cyanosis, clubbing, mild generalized edema noted NEUROLOGICAL: Alert however disoriented not following commands Assessment and Plan -Acute hypoxemic hypercapnic respiratory failure requiring intubation on 08/12 status post PEG tube and tracheostomy placement continues on the mechanical ventilator -Acute exacerbation of COPD -S/p tracheostomy -Hyponatremia -Multifocal pneumonia, with Rimma albicans continue on eraxis while inpatient, mycostatin discontinued -Left upper lobe nodule -History of HIV currently on Biktarvy. Viral count and CD4 counts are not known. No previous history of a persistent infections. The patient has not been receiving any form of antibiotic treatments such as Bactrim. Her infectious disease doctor is Dr. Salguero. The CD4 count is at 81 -Moderate protein calorie malnutrition continues with enteral nutrition -Chronic nicotine use GI prophylaxis DVT prophylaxis Full Code Patient failed an attempt to wean to the trach collar today and remains on the mechanical ventilator. Repeat BMP in the AM. Discharge planning in progress needs peer to peer for discharge to LTAC. The impression and plan of care has been dictated by Vangie Barton, Nurse Practitioner as directed. Dr. Dann MD I have performed a history and physical examination and medical decision making of this patient, discussed the same with the dictator, and agree with the dictators assessment and plan as written, documented as a scribe. Based on total visit time, I have performed more than 50% of this visit. Objective - Vital Signs Vital signs: Vital Signs Temp 98.6 F 09/06/23 04:00 Pulse 113 H 09/06/23 08:28 Resp 21 09/06/23 08:28 BP 112/74 09/06/23 07:00 Pulse Ox 100 09/06/23 07:00 FiO2 35 09/06/23 08:42 Intake & Output 09/05/23 09/06/23 09/06/23 18:59 06:59 18:59 Intake Total 393 913 73 Output Total 925 930 50 Balance -532 -17 23 Weight 57.9 kg Intake: IV 340 240 20 Anidulafungin 100 mg In 100 Sodium Chloride 0.9% 100 ml @ 84 mls/hr IVPB DAILY @1600 [facility] Rx#:[id number] Sodium Chloride 0.9% 1, 240 240 20 000 ml @ 20 mls/hr IV . Q24H [facility] Rx#:[id number] Tube Feeding 53 583 53 Other 90 Output: Urine 925 930 50 Other: Voiding Method Indwelling Catheter Indwelling Catheter ABP, PAP, CO, CI - Last Documented Arterial Blood Pressure 109/53 - Labs CBC & Chem 7: 09/06/23 06:10 09/06/23 06:10 Labs: Abnormal Lab Results - Last 24 Hours (Table) 09/05/23 09/05/23 09/05/23 Range/Units 11:51 12:37 18:53 RBC (3.80-5.40) m/uL Hgb (11.4-16.0) gm/dL Hct (34.0-46.0) % Sodium (137-145) mmol/L Potassium (3.5-5.1) mmol/L Carbon Dioxide (22-30) mmol/L BUN (7-17) mg/dL Creatinine (0.52-1.04) mg/dL Glucose (74-99) mg/dL POC Glucose (mg/dL) 152 H 130 H (70-110) mg/dL Urine Blood Trace H (Negative) Urine Bacteria Rare H (None) /hpf 09/05/23 09/06/23 09/06/23 Range/Units 23:43 05:38 06:10 RBC 2.93 L (3.80-5.40) m/uL Hgb 9.5 L (11.4-16.0) gm/dL Hct 29.1 L (34.0-46.0) % Sodium (137-145) mmol/L Potassium (3.5-5.1) mmol/L Carbon Dioxide (22-30) mmol/L BUN (7-17) mg/dL Creatinine (0.52-1.04) mg/dL Glucose (74-99) mg/dL POC Glucose (mg/dL) 111 H 123 H (70-110) mg/dL Urine Blood (Negative) Urine Bacteria (None) /hpf 09/06/23 Range/Units 06:10 RBC (3.80-5.40) m/uL Hgb (11.4-16.0) gm/dL Hct (34.0-46.0) % Sodium 133 L (137-145) mmol/L Potassium 3.4 L (3.5-5.1) mmol/L Carbon Dioxide 32 H (22-30) mmol/L BUN 18 H (7-17) mg/dL Creatinine 0.18 L (0.52-1.04) mg/dL Glucose 125 H (74-99) mg/dL POC Glucose (mg/dL) (70-110) mg/dL Urine Blood (Negative) Urine Bacteria (None) /hpf Assessment and Plan Time with Patient: Less than 30
[2023-09-06 18:01] LABS: Glucose,Whole Blood 121 mg/dL (70-110)
[2023-09-07] LABS: Glucose,Whole Blood 107 mg/dL (70-110)
[2023-09-07 05:33] LABS: Basophils % (A) 0 %; Eosinophils # (A) 0.2 k/uL (0-0.7); Eosinophils % (A) 3 %; HCT 28.6 % (34.0-46.0); HGB 9.7 gm/dL (11.4-16.0); Lymphocytes # (A) 1.4 k/uL (1.0-4.8); Lymphocytes % (A) 30 %; MCH 33.5 pg (25.0-35.0); MCHC 33.9 g/dL (31.0-37.0); Mean Platelet Volume 7.6; Monocytes # (A) 0.3 k/uL (0-1.0); Monocytes % (A) 6 %; Neutrophils # (A) 2.7 k/uL (1.3-7.7); Neutrophils % (A) 56 %; Platelet Count 316 k/uL (150-450); RBC 2.89 m/uL (3.80-5.40); RDW 13.8 % (11.5-15.5); WBC 4.8 k/uL (3.8-10.6)
[2023-09-07 06:05] LABS: African American GFR (CKD) >90 (>60 ml/min/1.73 sqM); Anion Gap 4 mmol/L; Blood Urea Nitrogen 16 mg/dL (7-17); Calcium 8.9 mg/dL (8.4-10.2); Carbon Dioxide 28 mmol/L (22-30); Chloride 99 mmol/L (98-107); Glucose 116 mg/dL (74-99); Non-African American GFR(CKD) >90 (>60 ml/min/1.73 sqM); Potassium 3.6 mmol/L (3.5-5.1); Sodium 131 mmol/L (137-145)
[2023-09-07] MEDS: POTASSIUM CHLORIDE 10 MEQ in WATER FOR INJECTION 1 100ML.BAG IVPB SCH (06:19)
[2023-09-07 06:30] LABS: Glucose,Whole Blood 123 mg/dL (70-110)
[2023-09-07] MEDS: HYDROmorphone 0.5 MG/0.5 ML SYRINGE IVP PRN (10:08)
--- NOTE | 2023-09-07 10:29 | P.PN ---
Subjective Progress Note Date: 09/07/23 CHIEF COMPLAINT: Respiratory failure HISTORY OF PRESENT ILLNESS: Patient remains in the ICU. She is status post tracheostomy and PEG tube placement. Patient is tolerating tube feeds. HR 121. Afebrile. WBC 4.9 PHYSICAL EXAM: VITAL SIGNS: Reviewed. GENERAL: no acute distress. HEENT: Trach site clean, dry and intact ABDOMEN: Soft. Nondistended. Nontender. PEG tube site clean dry and intact ASSESSMENT: 1. Acute hypoxic respiratory failure with difficulty to wean from the vent 2. COPD exacerbation 3. Moderate protein calorie malnutrition 4. History of HIV PLAN: -Continue tube feeds -Continue local wound care to tracheostomy site -social work is arranging placement Physician Film Touch Up Inspector note has been reviewed by physician. Signing provider agrees with the documented findings, assessment, and plan of care. Objective - Vital Signs Vital signs: Vital Signs Temp 98.3 F 09/07/23 08:00 Pulse 121 H 09/07/23 10:00 Resp 23 09/07/23 10:00 BP 124/72 09/07/23 10:00 Pulse Ox 99 09/07/23 10:00 FiO2 35 09/07/23 08:25 Intake & Output 09/06/23 09/07/23 09/07/23 18:59 06:59 18:59 Intake Total 1013 913 422 Output Total 875 840 110 Balance 138 73 312 Weight 58 kg Intake: IV 330 240 180 Anidulafungin 100 mg In 100 Sodium Chloride 0.9% 100 ml @ 84 mls/hr IVPB DAILY @1600 [facility] Rx#:[id number] Potassium Chloride 10 meq 100 In Water For Injection 1 100ml.bag @ 100 mls/hr IVPB Q1H [facility] Rx#: [id number] Sodium Chloride 0.9% 1, 230 240 80 000 ml @ 20 mls/hr IV . Q24H [facility] Rx#:[id number] Oral 100 Tube Feeding 583 583 212 Other 90 30 Output: Urine 875 840 110 Other: Voiding Method Indwelling Catheter Indwelling Catheter Indwelling Catheter # Bowel Movements 1 ABP, PAP, CO, CI - Last Documented Arterial Blood Pressure 109/53 - Labs CBC & Chem 7: 09/07/23 05:10 09/07/23 05:10 Labs: Abnormal Lab Results - Last 24 Hours (Table) 09/06/23 09/06/23 09/07/23 Range/Units 11:51 17:59 05:10 RBC 2.89 L (3.80-5.40) m/uL Hgb 9.7 L (11.4-16.0) gm/dL Hct 28.6 L (34.0-46.0) % Sodium (137-145) mmol/L Creatinine (0.52-1.04) mg/dL Glucose (74-99) mg/dL POC Glucose (mg/dL) 161 H 121 H (70-110) mg/dL 09/07/23 09/07/23 Range/Units 05:10 06:29 RBC (3.80-5.40) m/uL Hgb (11.4-16.0) gm/dL Hct (34.0-46.0) % Sodium 131 L (137-145) mmol/L Creatinine 0.15 L (0.52-1.04) mg/dL Glucose 116 H (74-99) mg/dL POC Glucose (mg/dL) 123 H (70-110) mg/dL
[2023-09-07 11:51] LABS: Glucose,Whole Blood 142 mg/dL (70-110)
--- NOTE | 2023-09-07 12:26 | P.PN ---
Subjective Progress Note Date: 09/07/23 Principal diagnosis: Acute hypoxic respiratory failure secondary to acute exacerbation of COPD This is a 52-year-old female patient with known history of COPD. The patient is maintained on Trelegy Ellipta on outpatient basis and she also has a DuoNeb nebulized treatment to be used on an as-needed basis. She is known to have HIV and currently she is on Biktarvy followed up by Dr. Salguero on outpatient basis regarding her HIV. She is not aware of her recent CD4 counts and viral loads. 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 She ultimately came into the hospital for increased shortness of breath. She was briefly placed on BiPAP and the patient is currently on oxygen at 6 L/min nasal cannula with a pulse ox of 98%. She is quite short of breath even at rest. Not using accessory muscles of breathing. Sodium levels at 126, potassium is 4.3, bicarb is 29, BUN is at 8 with a creatinine of 0.39. WBC count of 4.7 with a hemoglobin of 14.5 and a platelet count of 241. The viral screen came back negative. The chest x-ray shows no acute abnormalities. There is hyperinflation consistent with COPD. Scattered senescent parenchymal changes are seen bilaterally. Findings are essentially consistent with COPD. She was started on bronchodilators with D uoNeb updrafts. She is also on IV Solu-Medrol. She was started on Zithromax as an empiric antibiotic coverage and she is also normal saline at rate of 75 cc an hour. No frequent hospital admissions for COPD exacerbation. Her last admission to the hospital was back in 2021 essentially same presentation. She has been trying to quit smoking and she has not smoked for the past several months. She has been smoking since the age of 11 and she carries more than [id number] smoking history. On 08/11/2023, the patient is being seen for a follow-up. The patient was hospitalized for an acute Exacerbation the patient is feeling better on today's evaluation this bronchospastic and wheezy. She is known to have HIV. Viral constant CD4 counts are still pending for now. She is currently on Zithromax, IV Solu-Medrol, DuoNeb nebulized treatments [id number]. She has failed outpatient treatment for that reason the patient was hospitalized. No fever. No altered mentation. No other new complaints otherwise for now. Oxygenation is stable on 3 L O2 nasal cannula with a pulse ox of 98%. On today's evaluation of 08/12/2023, the patient reports limited improvement since yesterday. Still bronchospastic and wheezy and continues to be short of breath. Maintained on Symbicort and DuoNeb updrafts and maintained on IV Solu- Medrol 60 mg every 6 hours. She remains on empiric antibiotic coverage with IV Zithromax. No nausea vomiting or diarrhea. BUN is at 19 with a creatinine of 0.5 and a sodium levels at 138. No other significant events otherwise for now. The patient has a impaired CD4 count of 81. As such, the patient is high immunosuppressed and she may be potentially at risk of opportunistic infection. Patient continue antiretroviral treatment. Obtain a follow-up chest x-ray tomorrow. On 08/13/2023, the patient is quite lethargic on a BiPAP. Events from yesterday was noted. The patient became progressively more short of breath. She became restless, anxious, along with increased agitation and respiratory distress. The patient accordingly was placed on a BiPAP at a pressure of 12 over 5 cm of water and currently she is on #2 of 60%. She is generating a tidal volume of around about 400 with a minute ventilation of 7.4. Respirate is currently at 18. She is actively bronchospastic and wheezy. Blood gases that was done before the BiPAP utilization showed a pH of 7.24 with a pCO2 of 98 and pO2 of 69. Rest of the labs from today are still pending. A repeat chest x-ray was done this morning and it shows no evidence of any acute cardiopulmonary process. The patient remains on bronchodilators. The patient remains on IV Solu-Medrol 60 mg every 6 hours. As mentioned earlier, her CD4 count was low at 81. Nevertheless, no indication for any opportunistic infections at this point in time. Her temperature is low and the patient is afebrile and hemodynamically stable. She did receive Ativan 1 mg and she seems to be much more comfortable and synchronous with the BiPAP treatment. Will transfer the patient to the intensive care unit. Will repeat her blood gas. Use Precedex if needed. Patient was placed today on 08/14/2023, patient was admitted few days ago, however yesterday patient was intubated and required mechanical ventilation. Patient is now on assist-control rate of 16 tidal volume 350 FiO2 45% and PEEP of 5 ABG on 40% and rate of 16 showed a pO2 of 59 pCO2 51 pH of 7.47 hence I increased the FiO2 to 45% and cut down the rate to 14. Patient will be allowed to have more permissive hypercapnia patient is still requiring significant amount of sedation including propofol at 50 mcg/kg/min Nimbex at 2 mcg/kg/min she is also on Dilaudid [id number], on Lovenox enteral feeding, and IV fluid at 0.9 normal saline at 75 cc/h. Patient is not requiring any pressors or any inotropes. Patient is immunocompromise, she does have history of HIV, and she has very low CD4 count of 81. She is definitely high risk for opportunistic infections, infectious disease was consulted. Considering her gases and considering her physical exam findings, patient is not quite ready for weaning, and I have no plans to wean and extubate today. I will keep the patient presently on Nimbex, she got intubated last night, and will continue broncho dilators, continue steroids, and continue enteral feeding/nutritional support. Chest x-ray this morning showed emphysematous changes, no acute pulmonary process. CT of the brain showed a focal area of hypoattenuation involving the inferior right temporal lobe.May represent an infarct, possibly chronic. BBC count today is 9.2 hemoglobin is 12.5 basic metabolic profile is normal bicarb is 37, renal profile is normal. 09/03/2023, the patient is awake, sitting up on a recliner on a pressure support mode of mechanical ventilation at the pressure of 12 with a PEEP of 5. She is comfortable with the blood gas showed a pH of 7.48 with a pCO2 of 46 and pO2 of 133. She is profoundly weak. Trying to move her extremities and she is involved in physical therapy and passive range of motion. She is still on the same bronchodilators. Prednisone is currently down to 20 mg. She is on vital AF at the rate of 61. She is looking into going into [facility]. The white cell count is at 7 with a hemoglobin of 9.6 and a platelet count of 265. BUN is 22 with a creatinine 0.15 and a sodium level is at 133 with a potassium level of 4.0. No fever. Mental status is adequate. No agitation. Fluid balance is -2.1 L over the past 24 hours. Patient was reevaluated today on 09/04/2023, remains in the ICU, remains intubated and mechanically ventilated. However the patient is tolerating pressure support quite well. She is on pressure support of 12, and I cut down her pressure support to 10. Patient has been in the ICU now for the last 25 days. She is awake, follows all simple instructions but the patient is extremely and profoundly weak. 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 Patient continues to have tracheostomy in place, and I am not planning to go to trach collar at this point yet, we will try to taper down her pressure support from 12-10. Remains on enteral feeding receiving vital AF at 51 cc/h via PEG tube, this is at goal. Labs today were reviewed she had a WBC count of 6.4 hemoglobin 9.9 basic metabolic profile is normal potassium 3.3 bein g addressed accordingly renal profile is normal. Chest x-ray showed no evidence of pneumonia, patient does have right-sided PICC line terminating in the cavoatrial junction. Tracheostomy is intact her last sputum culture was +08/12 for Rimma albicans, her bronchial washings have been positive for Rimma albicans, patient has been receiving Eraxis all along. Infectious disease will most likely discontinue Eraxis today. Patient was reevaluated today on 09/05/2023, patient is now sitting at the bedside chair, remains on pressure support mode of mechanical ventilation, today I gave the patient a trial of trach collar, patient failed within less than 10 minutes, she was noted to be short of breath, tachycardic, tachypneic, and she had to be placed back on pressure support mode of mechanical ventilation with pressure support of 12 and CPAP. Chest x-ray continues to show no evidence of active disease. CBC and basic metabolic profile today are relatively normal, bicarb is 32. Patient was denied transfer to LTAC facility, could not reach her insurance for peer to peer review. Left a message. Meantime we will continue to have daily trials and weaning trials for weaning this patient from mechanical ventilation. 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 Hence in my assessment patient will definitely benefit from transfer to an LTAC facility. They could handle the weaning process over a period of time. She needs physical therapy to get her muscle weakness improved. Patient was reevaluated today on 09/06/2023, patient has been doing fairly well over the last 24 hours with pressure support only of 14, however the patient seems to be tiring out, and seems to be developing more shortness of breath today compared to yesterday. She is getting a bit restless agitated, tachypneic and tachycardic, I tried the patient on IMV mode along with pressure support con tinue to do poorly, hence I transitioned the patient completely to assist- control mode of mechanical ventilation with assist-control rate of 12 tidal volume 400 FiO2 35% and PEEP of 5 obviously the patient is not ready to be weaned further and she is not doing great with pressure support only but she did well for 24 hours my plan today is to rest her back on assist-control mode of mechanical ventilation. Patient is getting nutritional support via PEG tube, she is on Eraxis and on Bactrim. Chest x-ray continues to show no evidence of infiltrate. WBC count today is 3.8 hemoglobin 9.5 basic metabolic profile is normal potassium is a bit low at 3.4 BUN is 18 creatinine 0.18. Patient remains on Biktarvy, patient is also on prednisone 20 mg daily. Remains on bronchodilators/DuoNeb updrafts and she is also on Pulmicort and Perforomist. Patient was earlier today on 09/07/2023, remains in the ICU, intubated and mechanically ventilated. Patient is not tolerating trials of weaning, yesterday I had to place back on. Ventilatory support, and she remains on assist-control mode of mechanical ventilation, AC rate of 12, tidal volume 400 FiO2 35% and PEEP of 5. Patient seems to be very comfortable on that mode of mechanical ventilation, however I plan today to give her a trial of pressure support again and I will likely alternate pressure support mode of mechanical ventilation with pressure support of 14 and every 2 hours alternate with assist-control mode of mechanical ventilation. WBC count is 4.8 hemoglobin 9.7 basic metabolic profile is normal renal profile is normal. Chest x-ray showed no evidence of infiltrate Objective - Vital Signs Vital signs: Vital Signs Temp 97.7 F 09/07/23 12:00 Pulse 92 09/07/23 12:08 Resp 16 09/07/23 12:08 BP 99/56 09/07/23 12:00 Pulse Ox 100 09/07/23 12:00 FiO2 35 09/07/23 12:03 Intake & Output 09/06/23 09/07/23 09/07/23 18:59 06:59 18:59 Intake Total 1013 913 515 Output Total 875 840 365 Balance 138 73 150 Weight 58 kg Intake: IV 330 240 220 Anidulafungin 100 mg In 100 Sodium Chloride 0.9% 100 ml @ 84 mls/hr IVPB DAILY @1600 [facility] Rx#:[id number] Potassium Chloride 10 meq 100 In Water For Injection 1 100ml.bag @ 100 mls/hr IVPB Q1H [facility] Rx#: [id number] Sodium Chloride 0.9% 1, 230 240 120 000 ml @ 20 mls/hr IV . Q24H [facility] Rx#:[id number] Oral 100 Tube Feeding 583 583 265 Other 90 30 Output: Urine 875 840 365 Other: Voiding Method Indwelling Catheter Indwelling Catheter Indwelling Catheter # Bowel Movements 1 ABP, PAP, CO, CI - Last Documented Arterial Blood Pressure 109/53 - Exam General: Revealed 52-year-old female, awake, in no distress. Skin: Skin is warm and dry and no rashes or lesions are noted. Eye: Pupils are equal, round and reactive to light, extra-ocular movements are intact Ears, nose, mouth and throat: There are moist mucous membranes and no oral lesions. Neck: The neck is supple, there is no tenderness or JVD. Tracheostomy is intact. Cardiovascular: Normal S1-S2, no S3 gallop. No murmur. Respiratory: Good breath sound bilaterally no rhonchi no wheezes Gastrointestinal: Soft nontender no megaly no rebound no guarding Musculoskeletal: Continues to have profound muscle weakness bilaterally. Neurological: Alert and oriented x 3, generally weak Psychiatric: Normal mood, affect and normal mental status examination. Skin: No rashes - Labs CBC & Chem 7: 09/07/23 05:10 09/07/23 05:10 Labs: Abnormal Lab Results - Last 24 Hours (Table) 05/08/24 05/09/24 05/09/24 Range/Units 17:59 05:10 05:10 RBC 2.89 L (3.80-5.40) m/uL Hgb 9.7 L (11.4-16.0) gm/dL Hct 28.6 L (34.0-46.0) % Sodium 131 L (137-145) mmol/L Creatinine 0.15 L (0.52-1.04) mg/dL Glucose 116 H (74-99) mg/dL POC Glucose (mg/dL) 121 H (70-110) mg/dL 09/07/23 09/07/23 Range/Units 06:29 11:50 RBC (3.80-5.40) m/uL Hgb (11.4-16.0) gm/dL Hct (34.0-46.0) % Sodium (137-145) mmol/L Creatinine (0.52-1.04) mg/dL Glucose (74-99) mg/dL POC Glucose (mg/dL) 123 H 142 H (70-110) mg/dL Assessment and Plan Assessment: Impression: Acute hypoxic respiratory failure secondary to acute exacerbation of COPD requiring intubation mechanical ventilation on 08/13/2023. Also requiring tracheostomy for failure to wean continues to have tracheostomy in place, patient tolerated pressure support for mechanical ventilation for about 24 hours, today patient is on assist-control mode of mechanical ventilation, and will try out to alternate this mode with pressure support mode of mechanical ventilation every 2 hours. Advanced COPD left upper lobe 9 mm nodule seen on CT of the chest, needs outpatient follow History of HIV,patient has very low CD4 count, she is prone to opportunistic infections, cultures have been negative from BAL, patient is empirically on Levaquin Status post bronchoscopy and BAL 08/12, nondiagnostic Critical illness polyneuropathy with profound weakness Rimma in the sputum/BAL, receiving Eraxis as per ID on the case Failure to wean from mechanical ventilation, still recommend patient needs to have to be transferred to LTAC facility. Recommendation: Alternate pressure support and assist-control mode of mechanical ventilation today. Continue BuSpar for anxiet Continue Seroquel and Zoloft. Continue nutritional support/enteral feeding, patient is on vital AF at 51 cc/h via PEG tube Continue bronchodilators Continue GI and DVT prophylaxis Continue the tapering of prednisone Continue on Biktarvy for HIV treatment, continue Bactrim Based on the overall picture, I believe this patient will take a long time for full extubation for mechanical ventilation, hence I am recommending LTAC transfer this is going to be a very long process may take months I am still recommending that the patient needs LTAC facility for further weaning Patient remains critically ill, critical care time is over 30-minute Will continue to follow Time with Patient: Greater than 30
--- NOTE | 2023-09-07 17:34 | P.PN ---
Subjective Progress Note Date: 09/05/23 Principal diagnosis: Reason for follow-up is HIV and possible pneumonia Patient is a 52-year-old female with a past medical history significant for HIV on Biktarvy, also with a history of COPD presenting to the hospital for evaluation of increasing shortness of breath patient did have worsening respiratory status got intubated, patient did have a CT angiogram of the chest that was negative for PE did shows a lung nodule did not mention any infiltrate or consolidation.Patient is status post tracheostomy completed on 08/23/2023 On today's evaluation that is 09/05/2023, Patient did have low-grade fever 100.5 at midnight patient is afebrile since then, the patient intubated on the vent FiO2 is currently at 35% and no secretions through the ET patient not requiring any pressor support no diarrhea has been reported. Patient white count is 5.0 creatinine 0.17 Objective - Vital Signs Vital signs: Vital Signs Temp 98.2 F 09/05/23 12:00 Pulse 105 H 09/05/23 14:00 Resp 14 09/05/23 14:00 BP 104/58 09/05/23 14:00 Pulse Ox 98 09/05/23 14:00 FiO2 35 09/05/23 12:00 Intake & Output 09/04/23 09/05/23 09/05/23 18:59 06:59 18:59 Intake Total 341 913 213 Output Total 765 775 570 Balance -424 138 -357 Weight 55.2 kg 57.5 kg Intake: IV 260 240 160 Anidulafungin 100 mg In 100 Sodium Chloride 0.9% 100 ml @ 84 mls/hr IVPB DAILY @1600 [facility] Rx#:[id number] Sodium Chloride 0.9% 1, 160 240 160 000 ml @ 20 mls/hr IV . Q24H [facility] Rx#:[id number] Intake, IV Titration 20 Amount Sodium Chloride 0.9% 1, 20 000 ml @ 20 mls/hr IV . Q24H [facility] Rx#:[id number] Tube Feeding 61 583 53 Other 90 Output: Urine 765 775 570 Other: Voiding Method Indwelling Catheter Indwelling Catheter Indwelling Catheter ABP, PAP, CO, CI - Last Documented Arterial Blood Pressure 109/53 - Exam GENERAL DESCRIPTION: Middle-aged female intubated on the vent through the trach RESPIRATORY SYSTEM: Unlabored breathing , decreased breath sounds at bases HEART: S1 S2 regular rate and rhythm , ABDOMEN: Soft , no tenderness EXTREMITIES: No edema feet - Labs CBC & Chem 7: 09/07/23 05:10 09/07/23 12:17 Labs: Abnormal Lab Results - Last 24 Hours (Table) 09/04/23 09/05/23 09/05/23 Range/Units 17:44 05:38 05:38 RBC 3.02 L (3.80-5.40) m/uL Hgb 9.7 L (11.4-16.0) gm/dL Hct 30.0 L (34.0-46.0) % Sodium 131 L (137-145) mmol/L Chloride 97 L (98-107) mmol/L Carbon Dioxide 32 H (22-30) mmol/L BUN 21 H (7-17) mg/dL Creatinine 0.17 L (0.52-1.04) mg/dL Glucose 102 H (74-99) mg/dL POC Glucose (mg/dL) 137 H (70-110) mg/dL Urine Blood (Negative) Urine Bacteria (None) /hpf 09/05/23 09/05/23 Range/Units 11:51 12:37 RBC (3.80-5.40) m/uL Hgb (11.4-16.0) gm/dL Hct (34.0-46.0) % Sodium (137-145) mmol/L Chloride (98-107) mmol/L Carbon Dioxide (22-30) mmol/L BUN (7-17) mg/dL Creatinine (0.52-1.04) mg/dL Glucose (74-99) mg/dL POC Glucose (mg/dL) 152 H (70-110) mg/dL Urine Blood Trace H (Negative) Urine Bacteria Rare H (None) /hpf Microbiology - Last 24 Hours (Table) 08/13/23 13:30 Acid Fast Bacilli Smear - Preliminary Sputum Acid Fast Bacilli Culture - Preliminary Assessment and Plan (1) Acute respiratory failure Current Visit: Yes Status: Acute Code(s): J96.00 - ACUTE RESPIRATORY FAILURE, UNSP W HYPOXIA OR HYPERCAPNIA SNOMED Code(s): 56386308 (2) HIV disease Current Visit: No Status: Acute Code(s): B20 - HUMAN IMMUNODEFICIENCY VIRUS [HIV] DISEASE SNOMED Code(s): 95310524 (3) Oropharyngeal candidiasis Current Visit: Yes Status: Acute Code(s): B37.0 - CANDIDAL STOMATITIS SNOMED Code(s): 58392763 Plan: 1patient presented to hospital with increasing shortness of breath which is likely multifactorial in this patient who did have a history of COPD and likely COPD is a patient with a tracheobronchitis underlying pneumonia less likely but not entirely excluded 2-patient did have a CT angiogram of the chest that was negative for PE did not show any evidence of pneumonia or interstitial infiltrate 3-patient did have a penicillin allergy that will limit the number of antibiotics safe to use 4-patient to continue with Biktarvy for HIV, Bactrim DS for PCP prophylaxis, the patient HIV viral load is undetected 5-patient sputum is growing Rimma which is likely colonization however the patient did have worsening of the white count could be component of oropha ryngeal candidiasis, the patient white count has normalized with addition of Eraxis which can be continued to finish her course of therapy Dictation was produced using [employer] dictation software. please excuse any grammatical, word or spelling errors. Time with Patient: Less than 30
--- NOTE | 2023-09-07 17:35 | P.PN ---
Subjective Progress Note Date: 09/06/23 Principal diagnosis: Reason for follow-up is HIV and possible pneumonia Patient is a 52-year-old female with a past medical history significant for HIV on Biktarvy, also with a history of COPD presenting to the hospital for evaluation of increasing shortness of breath patient did have worsening respiratory status got intubated, patient did have a CT angiogram of the chest that was negative for PE did shows a lung nodule did not mention any infiltrate or consolidation.Patient is status post tracheostomy completed on 08/23/2023 On today's evaluation that is 09/06/2023, patient did have a low-grade fever of 99.8 at midnight however the patient has been afebrile since then, the patient remains to be intubated on the vent FiO2 stable at 35% no purulent secretions t hrough the ET diarrhea or any other changes reported by nursing staff patient not requiring any pressor support. Patient white count is 3.8 creatinine 0.18 Objective - Vital Signs Vital signs: Vital Signs Temp 98.4 F 09/06/23 08:00 Pulse 89 09/06/23 11:17 Resp 18 09/06/23 11:17 BP 104/55 09/06/23 11:00 Pulse Ox 97 09/06/23 11:00 FiO2 35 09/06/23 11:10 Intake & Output 09/05/23 09/06/23 09/06/23 18:59 06:59 18:59 Intake Total 393 913 465 Output Total 925 930 300 Balance -532 -17 165 Weight 57.9 kg Intake: IV 340 240 100 Anidulafungin 100 mg In 100 Sodium Chloride 0.9% 100 ml @ 84 mls/hr IVPB DAILY @1600 [facility] Rx#:[id number] Sodium Chloride 0.9% 1, 240 240 100 000 ml @ 20 mls/hr IV . Q24H [facility] Rx#:[id number] Oral 100 Tube Feeding 53 583 265 Other 90 Output: Urine 925 930 300 Other: Voiding Method Indwelling Catheter Indwelling Catheter # Bowel Movements 1 ABP, PAP, CO, CI - Last Documented Arterial Blood Pressure 109/53 - Exam GENERAL DESCRIPTION: Middle-aged female intubated on the vent through the trach RESPIRATORY SYSTEM: Unlabored breathing , decreased breath sounds at bases HEART: S1 S2 regular rate and rhythm , ABDOMEN: Soft , no tenderness EXTREMITIES: No edema feet - Labs CBC & Chem 7: 09/07/23 05:10 09/07/23 12:17 Labs: Abnormal Lab Results - Last 24 Hours (Table) 09/05/23 09/05/23 09/06/23 Range/Units 18:53 23:43 05:38 RBC (3.80-5.40) m/uL Hgb (11.4-16.0) gm/dL Hct (34.0-46.0) % Sodium (137-145) mmol/L Potassium (3.5-5.1) mmol/L Carbon Dioxide (22-30) mmol/L BUN (7-17) mg/dL Creatinine (0.52-1.04) mg/dL Glucose (74-99) mg/dL POC Glucose (mg/dL) 130 H 111 H 123 H (70-110) mg/dL 09/06/23 09/06/23 09/06/23 Range/Units 06:10 06:10 11:51 RBC 2.93 L (3.80-5.40) m/uL Hgb 9.5 L (11.4-16.0) gm/dL Hct 29.1 L (34.0-46.0) % Sodium 133 L (137-145) mmol/L Potassium 3.4 L (3.5-5.1) mmol/L Carbon Dioxide 32 H (22-30) mmol/L BUN 18 H (7-17) mg/dL Creatinine 0.18 L (0.52-1.04) mg/dL Glucose 125 H (74-99) mg/dL POC Glucose (mg/dL) 161 H (70-110) mg/dL Assessment and Plan (1) Acute respiratory failure Current Visit: Yes Status: Acute Code(s): J96.00 - ACUTE RESPIRATORY FAILURE, UNSP W HYPOXIA OR HYPERCAPNIA SNOMED Code(s): 72385196 (2) HIV disease Current Visit: No Status: Acute Code(s): B20 - HUMAN IMMUNODEFICIENCY VIRUS [HIV] DISEASE SNOMED Code(s): 07395463 Plan: 1patient presented to hospital with increasing shortness of breath which is likely multifactorial in this patient who did have a history of COPD and likely COPD is a patient with a tracheobronchitis underlying pneumonia less likely but not entirely excluded 2-patient did have a CT angiogram of the chest that was negative for PE did not show any evidence of pneumonia or interstitial infiltrate 3-patient did have a penicillin allergy that will limit the number of antibiotics safe to use 4-patient to continue with Biktarvy for HIV, Bactrim DS for PCP prophylaxis, the patient HIV viral load is undetected 5-patient sputum is growing Rimma which is likely colonization however the patient did have worsening of the white count could be component of oropharyngeal candidiasis, the patient white count has normalized with addition of Eraxis plan is to finish a total course of therapy Dictation was produced using [employer] dictation software. please excuse any grammatical, word or spelling errors. Time with Patient: Less than 30
--- NOTE | 2023-09-07 17:36 | P.PN ---
Subjective Progress Note Date: 09/07/23 Principal diagnosis: Reason for follow-up is HIV and possible pneumonia Patient is a 52-year-old female with a past medical history significant for HIV on Biktarvy, also with a history of COPD presenting to the hospital for evaluation of increasing shortness of breath patient did have worsening respiratory status got intubated, patient did have a CT angiogram of the chest that was negative for PE did shows a lung nodule did not mention any infiltrate or consolidation.Patient is status post tracheostomy completed on 08/23/2023 On today's evaluation that is 09/07/2023,the patient has been afebrile, patient remains to be on the vent FiO2 is currently stable at 35% no purulent secretions through the ET or any other changes reported by the nursing staff no diarrhea has been reported. Patient white count is 4.8 creatinine 0.15 Objective - Vital Signs Vital signs: Vital Signs Temp 97.7 F 09/07/23 12:00 Pulse 104 H 09/07/23 15:00 Resp 14 09/07/23 15:00 BP 98/65 09/07/23 15:00 Pulse Ox 99 09/07/23 15:00 FiO2 35 09/07/23 12:03 Intake & Output 09/06/23 09/07/23 09/07/23 18:59 06:59 18:59 Intake Total 1013 913 817 Output Total 875 840 625 Balance 138 73 192 Weight 58 kg 58 kg Intake: IV 330 240 280 Anidulafungin 100 mg In 100 Sodium Chloride 0.9% 100 ml @ 84 mls/hr IVPB DAILY @1600 [facility] Rx#:[id number] Potassium Chloride 10 meq 100 In Water For Injection 1 100ml.bag @ 100 mls/hr IVPB Q1H [facility] Rx#: [id number] Sodium Chloride 0.9% 1, 230 240 180 000 ml @ 20 mls/hr IV . Q24H [facility] Rx#:[id number] Oral 100 Tube Feeding 583 583 477 Other 90 60 Output: Urine 875 840 625 Other: Voiding Method Indwelling Catheter Indwelling Catheter Indwelling Catheter # Bowel Movements 1 ABP, PAP, CO, CI - Last Documented Arterial Blood Pressure 109/53 - Exam GENERAL DESCRIPTION: Middle-aged female intubated on the vent through the trach RESPIRATORY SYSTEM: Unlabored breathing , decreased breath sounds at bases HEART: S1 S2 regular rate and rhythm , ABDOMEN: Soft , no tenderness EXTREMITIES: No edema feet - Labs CBC & Chem 7: 09/07/23 05:10 09/07/23 12:17 Labs: Abnormal Lab Results - Last 24 Hours (Table) 09/06/23 09/07/23 09/07/23 Range/Units 17:59 05:10 05:10 RBC 2.89 L (3.80-5.40) m/uL Hgb 9.7 L (11.4-16.0) gm/dL Hct 28.6 L (34.0-46.0) % Sodium 131 L (137-145) mmol/L Creatinine 0.15 L (0.52-1.04) mg/dL Glucose 116 H (74-99) mg/dL POC Glucose (mg/dL) 121 H (70-110) mg/dL 09/07/23 09/07/23 Range/Units 06:29 11:50 RBC (3.80-5.40) m/uL Hgb (11.4-16.0) gm/dL Hct (34.0-46.0) % Sodium (137-145) mmol/L Creatinine (0.52-1.04) mg/dL Glucose (74-99) mg/dL POC Glucose (mg/dL) 123 H 142 H (70-110) mg/dL Assessment and Plan (1) Acute respiratory failure Current Visit: Yes Status: Acute Code(s): J96.00 - ACUTE RESPIRATORY FAILURE, UNSP W HYPOXIA OR HYPERCAPNIA SNOMED Code(s): 89256168 (2) HIV disease Current Visit: No Status: Acute Code(s): B20 - HUMAN IMMUNODEFICIENCY VIRUS [HIV] DISEASE SNOMED Code(s): 66007784 Plan: 1patient presented to hospital with increasing shortness of breath which is likely multifactorial in this patient who did have a history of COPD and likely COPD is a patient with a tracheobronchitis underlying pneumonia less likely but not entirely excluded 2-patient did have a CT angiogram of the chest that was negative for PE did not show any evidence of pneumonia or interstitial infiltrate 3-patient did have a penicillin allergy that will limit the number of antibiotics safe to use 4-patient to continue with Biktarvy for HIV, Bactrim DS for PCP prophylaxis, the patient HIV viral load is undetected 5-patient sputum is growing Rimma which is likely colonization however the patient did have worsening of the white count could be component of oropharyngeal candidiasis, the patient white count has normalized and the patient received adequate IV Eraxis for underlying oropharyngeal candidiasis required discontinue Eraxis and monitor the patient closely off antifungal therapy Dictation was produced using [employer] dictation software. please excuse any grammatical, word or spelling errors. Time with Patient: Less than 30
[2023-09-07 17:58] LABS: Glucose,Whole Blood 138 mg/dL (70-110)
--- NOTE | 2023-09-07 21:37 | P.PN ---
Subjective Progress Note Date: 09/07/23 52-year-old female who initially came into the hospital due to difficulty breathing and cough. Patient was found to have significant COPD exacerbation and required intubation. She continues in the intensive care unit she is on the mechanical ventilator with an FiO2 of 35% with a PEEP of 5. She is currently on an IV Versed and IV fentanyl infusion as well as IV Solu-Medrol. She is currently sedated with propofol. patient is maintained on Biktarvy also for history of HIV. On enteral feedings. Chest x-ray today shows improved aeration of the lung bases. Labs today reveal a white blood cell count of 11.6, sodium 133, BUN of 23, creatinine of 0.29. Her glucose is in the 120s to 130s range. CO2 of 40. Sputum culture was found to be positive for Sergio. She is being considered for trach and PEG tube placement. 08/22/2023 Patient evaluated in follow up today in the ICU. Remains on the mechanical ventilator with FiO2 of 35% and PEEP of 5. Patient is scheduled for PEG/Trach placement today. Remains on IV fentanyl, IV versed, IV propofol, IV solumedrol. Patient is being hydrated with normal saline. Chest xray today shows no focal infiltrates. 08/23/2023 Patient remains in the intensive care unit. Patient is currently on the mechanical ventilator. Patient underwent trach and PEG tube placement today. Remains on IV fentanyl, IV versed, IV propofol, IV solumedrol. Patient remains on Biktarvy. Unable to be considered for rehab or select specialty at this time due to the cost of the Biktarvy medication which will need to be continued at this time. White blood cell count today 13.4, sodium 136, BUN 19, creatinine 0.30. CO2 level 42. Blood glucose 170. 08/24/2023 Patient is evaluated today in the ICU. Patient is postoperative trach and peg tube placement. Remains on mechanical ventilator with FiO2 of 35% and PEEP of 5. Currently on IV fentanyl, IV versed, IV propofol and remains on high dose IV solumedrol. Sputum culture was positive for sergio patient is having worsening WBC today is 15k and ID has recommended to start the patient on IV anidulafungin. Patient is being hydrated with normal saline running at 75 mls/hr. Tube feedings were placed on hold for the PEG tube placement and are to be resumed today. 08/25/2023 Patient evaluated today in the ICU, patient remains on the mechanical ventilator. White blood cell count up to 16.9. Continues on IV anidulafungin. C hest xray today reveals chronic changes without acute cardiopulmonary disease. Patient on IV precedex, IV fentanyl, IV versed, IV propofol. Remains on normal saline. Continues on high dose IV solumedrol. Resumed on enteral feedings. 08/26/2023 Patient seen in follow-up continues to be in the ICU with multiple medical consultations following. Patient remains on mechanical ventilation with an FiO2 of 35%. Patient is currently weaned off Cleviprex and continues on fentanyl. Patient also maintained on antifungal with infectious disease following. Tube feedings at goal and patient is tolerating. Patient is afebrile although white count continues to remain elevated, possibly steroid effect and patient is being transition to oral prednisone. Continue with breathing inhalational treatments and follow-up on chest x-ray. 08/27/23 : Patient seen and evaluated in medical ICU vitals reviewed, blood work reviewed WBC 14.3, arterial blood gas reviewed pH 7.43/pCO2 60/pO2 79/serum chemistry sodium 136 BUN 19 creatinine 0.33 calcium of 7.4 08/28/23: Patient seen and evaluated at bedside, patient remains on ventilator through trach, vitals reviewed, FiO2 35% and arterial blood gas reviewed, serum chemistry showed sodium 135 creatinine 0.17 calcium of 7.4 blood glucose of 77, continue antifungal, infectious disease following. Patient transition to Precedex, propofol weaned off 08/29/23: Patient seen and evaluated bedside, planning to wean off ventilator, serial ABGs obtained, spontaneous breathing trial done, serum chemistry reviewed sodium 133, carbon dioxide 38, arterial blood gas shows metabolic alkalosis with respiratory compensation, continue management and medical ICU. 08/30/2023 Patient is a sleepy, she was still on Precedex when seen in the morning Tracheostomy on mechanical ventilation, PEEP of 5 and FiO2 of 35% Blood pressure is 81/35, heart rate 92 Patient has Ortiz catheter with clear yellow urine. Fecal management system. Mild leukocytosis of 12.9 Sputum culture growing Sergio, patient currently on Eraxis and nystatin Also on prednisone 40 mg for her severe COPD seen on CT of the chest Patient also on HIV treatment and normal saline 75 mL/h 08/31/2023 Patient s/p tracheostomy, patient nonverbal today but she open her eyes spontaneously after stopping Precedex yesterday. She able to follow simple commands slowly for example opening her mouth. Other exam is restricted. Patient is still generally weak She is still treated for her pneumonia and COPD exacerbation with Eraxis for culture positive for Sergio and also she is on prednisone 40 mg taper She is to receive HIV medication which is her home medication no other new complaint Plan to discharge to select with pulmonary team recommendation will follow closely for her pneumonia and respiratory failure other medical problem 09/01/2023 Patient today is awake and interactive however nonverbal because of the tracheostomy. 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 We will check creatinine kinase tomorrow She remains on Eraxis and nystatin orally. Prednisone dose lowered to 20 mg today and WBC came back to normal at 9.7. Hemoglobin stable. She remains for HIV treatment 09/02/2023 : Patient seen and evaluated bedside, patient remains on mechanical ventilator through tracheostomy serum chemistry reviewed, sodium 133 potassium 3.5 BUN 19 creatinine 0.2 calcium of 8. Arterial blood gas reviewed pH 7.46, pCO2 48, bicarb 34. Patient is off Precedex, continue to remain disoriented 09/03/23: Patient seen and evaluated bedside, patient is ventilated, blood work reviewed, CBC reviewed hemoglobin 9.6, platelet count 265. Serum chemistry sodi um 133 potassium 4, and 0.15 patient weaned off sedation, weaned off ventilator placed on CPAP settings, pulmonary medicine following 09/04/23: Patient seen and evaluated at bedside, blood work reviewed hemoglobin 9.9, serum chemistry sodium 133 potassium 3.3, patient remains on ventilator through trach. Potassium replaced and has improved patient does follow commands now 09/05/2023 Patient is evaluated in follow up in the ICU. Patient is sitting up in the chair with visitor at the bedside. Patient is in good spirits. Able to communicate, alert and oriented. Continues on the ventilator through the trach, did fail an attempt to be weaned to the trach collar today. Continues on enteral feedings. Reports some mild abdominal cramping. White blood cell count normal. Stable hemoglobin. Sodium level 131. Does continue with significant peripheral edema. 09/06/2023 Patient is evaluated in follow-up today in the intensive care unit. She is currently sitting up at the bedside. Patient has been frustrated today with attempts at communication. She remains on the mechanical ventilator through the trach currently on an FiO2 of 35% with oxygen saturations in the high 90s. Patient will continue IV Eraxis while inpatient with no further antibiotics needed on discharge. Chest x-ray today which shows underlying COPD aeration appears to have improved with no definite acute process. Patient is pending a peer to peer for patient to discharge to LTAC. 09/07/2023 Patient is evaluated today in the ICU. Failed weaning off the mechanical ventilator today. Pending peer to peer for LTAC and awaiting phone call back from [facility]. White blood cell count 4.8, hgb 9.7, sodium 131, potassium 3.6, BUN 16, creatinine 0.15. Glucose 130s. Remains on enteral feedings with vital AF at 53 mls/hr which is goal. Patient has been tachycardic today heart rate in the 110s. Review of Systems Constitutional: Denied any fatigue denied any fever. Cardio vascular: denied any chest pain , palpitations Gastrointestinal: denied any nausea, vomiting, diarrhea Pulmonary: Denied any shortness of breath cough Neurologic denied any new focal deficits All inpatient medications were reviewed and appropriate changes in these medications as dictated in the interval history and assessment and plan. PHYSICAL EXAMINATION: GENERAL: The patient is alert and oriented x 3 , Ill-appearing, trach in place, on vent, following commands HEENT: Normocephalic, atraumatic. CARDIOVASCULAR: S1 and S2 present. Tachycardia noted PULMONARY: Diminished breath sounds bilaterally with scattered rhonchi noted.. ABDOMEN: Soft, nontender, nondistended, normoactive bowel sounds. No palpable organomegaly. MUSCULOSKELETAL: No joint swelling or deformity. EXTREMITIES: No cyanosis, clubbing, mild generalized edema noted NEUROLOGICAL: Alert however disoriented not following commands Assessment and Plan -Acute hypoxemic hypercapnic respiratory failure requiring intubation on 08/12 status post PEG tube and tracheostomy placement continues on the mechanical ventilator -Acute exacerbation of COPD -S/p tracheostomy -Hyponatremia -Multifocal pneumonia, with Sergio albicans continue on eraxis while inpatient, mycostatin discontinued -Left upper lobe nodule -History of HIV currently on Biktarvy. Viral count and CD4 counts are not known. No previous history of a persistent infections. The patient has not been receiving any form of antibiotic treatments such as Bactrim. Her infectious disease doctor is Dr. Salguero. The CD4 count is at 81 -Moderate protein calorie malnutrition continues with enteral nutrition -Chronic nicotine use GI prophylaxis DVT prophylaxis Full Code Patient failed an attempt to wean to the trach collar today and remains on the mechanical ventilator. Repeat BMP in the AM. Start on low dose beta milton twice a day for the tachycardia. Discharge planning in progress needs peer to p eer for discharge to LTAC. The impression and plan of care has been dictated by Vangie Barton, Nurse Practitioner as directed. Dr. Dann MD I have performed a history and physical examination and medical decision making of this patient, discussed the same with the dictator, and agree with the dictators assessment and plan as written, documented as a scribe. Based on total visit time, I have performed more than 50% of this visit. Objective - Vital Signs Vital signs: Vital Signs Temp 98.7 F 09/07/23 16:00 Pulse 117 H 09/07/23 19:53 Resp 18 09/07/23 19:00 BP 110/71 09/07/23 19:00 Pulse Ox 98 09/07/23 19:00 FiO2 35 09/07/23 19:40 Intake & Output 09/07/23 09/07/23 09/08/23 06:59 18:59 06:59 Intake Total 913 1166 73 Output Total 840 930 100 Balance 73 236 -27 Weight 58 kg 58 kg Intake: IV 240 440 20 Anidulafungin 100 mg In 100 Sodium Chloride 0.9% 100 ml @ 84 mls/hr IVPB DAILY @1600 [facility] Rx#:[id number] Potassium Chloride 10 meq 100 In Water For Injection 1 100ml.bag @ 100 mls/hr IVPB Q1H [facility] Rx#: [id number] Sodium Chloride 0.9% 1, 240 240 20 000 ml @ 20 mls/hr IV . Q24H [facility] Rx#:[id number] Tube Feeding 583 636 53 Other 90 90 Output: Urine 840 930 100 Other: Voiding Method Indwelling Catheter Indwelling Catheter ABP, PAP, CO, CI - Last Documented Arterial Blood Pressure 109/53 - Labs CBC & Chem 7: 09/07/23 05:10 09/07/23 12:17 Labs: Abnormal Lab Results - Last 24 Hours (Table) 09/07/23 09/07/2309/06/24 Range/Units 05:10 05:10 06:29 RBC 2.89 L (3.80-5.40) m/uL Hgb 9.7 L (11.4-16.0) gm/dL Hct 28.6 L (34.0-46.0) % Sodium 131 L (137-145) mmol/L Creatinine 0.15 L (0.52-1.04) mg/dL Glucose 116 H (74-99) mg/dL POC Glucose (mg/dL) 123 H (70-110) mg/dL 09/07/23 09/07/23 Range/Units 11:50 17:56 RBC (3.80-5.40) m/uL Hgb (11.4-16.0) gm/dL Hct (34.0-46.0) % Sodium (137-145) mmol/L Creatinine (0.52-1.04) mg/dL Glucose (74-99) mg/dL POC Glucose (mg/dL) 142 H 138 H (70-110) mg/dL Assessment and Plan Time with Patient: Less than 30
[2023-09-07] MEDS: METOPROLOL TARTRATE 12.5 MG TAB PO SCH (21:50)
[2023-09-08 00:58] LABS: Glucose,Whole Blood 98 mg/dL (70-110)
[2023-09-08 04:50] LABS: Basophils % (A) 1 %; Eosinophils # (A) 0.1 k/uL (0-0.7); Eosinophils % (A) 2 %; HCT 31.5 % (34.0-46.0); Lymphocytes # (A) 1.5 k/uL (1.0-4.8); Lymphocytes % (A) 30 %; MCH 31.7 pg (25.0-35.0); MCHC 31.8 g/dL (31.0-37.0); MCV 99.7 fL (80.0-100.0); Mean Platelet Volume 7.2; Monocytes # (A) 0.3 k/uL (0-1.0); Monocytes % (A) 7 %; Neutrophils # (A) 2.8 k/uL (1.3-7.7); Neutrophils % (A) 57 %; Platelet Count 360 k/uL (150-450); RBC 3.16 m/uL (3.80-5.40); RDW 13.5 % (11.5-15.5); WBC 4.9 k/uL (3.8-10.6)
[2023-09-08 05:00] LABS: African American GFR (CKD) >90 (>60 ml/min/1.73 sqM); Anion Gap 4 mmol/L; Blood Urea Nitrogen 17 mg/dL (7-17); Carbon Dioxide 28 mmol/L (22-30); Chloride 98 mmol/L (98-107); Glucose 96 mg/dL (74-99); Non-African American GFR(CKD) >90 (>60 ml/min/1.73 sqM); Potassium 3.8 mmol/L (3.5-5.1); Sodium 130 mmol/L (137-145)
[2023-09-08] MEDS: POTASSIUM CHLORIDE 10 MEQ in WATER FOR INJECTION 1 100ML.BAG IVPB SCH (05:56)
[2023-09-08 06:46] LABS: Glucose,Whole Blood 108 mg/dL (70-110)
--- NOTE | 2023-09-08 08:12 | XR ---
EXAMINATION TYPE: XR abdomen 1V DATE OF EXAM: 09/08/2023 Comparison: 06/06/2010 Clinical History: 52-year-old female pain, distention, constipation Findings: Lung bases are clear. Supine imaging limited for assessment of free air. Prominent stool distending the rectum up to 7.6 cm wide. There is diffuse air distention of the colon with some portions dilated up to 6.3 cm. No dilated small bowel loops are seen. Impression: Diffuse air distention of the colon with some portions mildly dilated up to 6.3 cm. Given solid stool distending the rectum up to 7.6 cm wide, correlate to exclude the possibility of fecal impaction.
[2023-09-08] MEDS: LACTULOSE 20 GM/30 ML CUP PO PRN (09:31)
[2023-09-08] MEDS: bisacodyL 10 MG SUPP RECTAL PRN (11:38)
--- NOTE | 2023-09-08 11:48 | P.PN ---
Subjective Progress Note Date: 09/08/23 CHIEF COMPLAINT: Respiratory failure HISTORY OF PRESENT ILLNESS: Patient remains in the ICU. She is status post tracheostomy and PEG tube placement. Patient is tolerating tube feeds. Afebrile. PHYSICAL EXAM: VITAL SIGNS: Reviewed. HEENT: Trach site clean, dry and intact ABDOMEN: PEG tube site clean dry and intact ASSESSMENT: 1. Acute hypoxic respiratory failure 2. COPD exacerbation 3. Moderate protein calorie malnutrition 4. History of HIV PLAN: -Continue tube feeds -Continue local wound care to tracheostomy site -social work is arranging placement Physician Software Engineering Manager note has been reviewed by physician. Signing provider agrees with the documented findings, assessment, and plan of care. Objective - Vital Signs Vital signs: Vital Signs Temp 98.5 F 09/08/23 08:00 Pulse 94 09/08/23 11:46 Resp 21 09/08/23 11:46 BP 112/79 09/08/23 11:00 Pulse Ox 100 09/08/23 11:00 FiO2 35 09/08/23 11:42 Intake & Output 09/07/23 09/08/23 09/08/23 18:59 06:59 18:59 Intake Total 1166 880 240 Output Total 930 685 105 Balance 236 195 135 Weight 58 kg 58.7 kg Intake: IV 440 260 180 Anidulafungin 100 mg In 100 Sodium Chloride 0.9% 100 ml @ 84 mls/hr IVPB DAILY @1600 [facility] Rx#:[id number] Potassium Chloride 10 meq 100 In Water For Injection 1 100ml.bag @ 100 mls/hr IVPB Q1H [facility] Rx#: [id number] Potassium Chloride 10 meq 100 In Water For Injection 1 100ml.bag @ 100 mls/hr IVPB Q1H [facility] Rx#: [id number] Sodium Chloride 0.9% 1, 240 260 80 000 ml @ 20 mls/hr IV . Q24H [facility] Rx#:[id number] Oral 60 Tube Feeding 636 530 Other 90 90 Output: Urine 930 685 105 Other: Voiding Method Indwelling Catheter Indwelling Catheter Indwelling Catheter ABP, PAP, CO, CI - Last Documented Arterial Blood Pressure 109/53 - Labs CBC & Chem 7: 09/08/23 04:27 09/08/23 04:19 Labs: Abnormal Lab Results - Last 24 Hours (Table) 09/07/23 09/07/23 09/08/23 Range/Units 11:50 17:56 04:19 RBC (3.80-5.40) m/uL Hgb (11.4-16.0) gm/dL Hct (34.0-46.0) % Sodium 130 L (137-145) mmol/L Creatinine 0.16 L (0.52-1.04) mg/dL POC Glucose (mg/dL) 142 H 138 H (70-110) mg/dL 09/08/23 Range/Units 04:27 RBC 3.16 L (3.80-5.40) m/uL Hgb 10.0 L (11.4-16.0) gm/dL Hct 31.5 L (34.0-46.0) % Sodium (137-145) mmol/L Creatinine (0.52-1.04) mg/dL POC Glucose (mg/dL) (70-110) mg/dL
[2023-09-08 11:49] LABS: Glucose,Whole Blood 123 mg/dL (70-110)
--- NOTE | 2023-09-08 12:07 | P.PN ---
Subjective Progress Note Date: 09/08/23 Principal diagnosis: Acute hypoxic respiratory failure secondary to acute exacerbation of COPD This is a 52-year-old female patient with known history of COPD. The patient is maintained on Trelegy Ellipta on outpatient basis and she also has a DuoNeb nebulized treatment to be used on an as-needed basis. She is known to have HIV and currently she is on Biktarvy followed up by Dr. Salguero on outpatient basis regarding her HIV. She is not aware of her recent CD4 counts and viral loads. She has been having issues with increased respiratory distress and [employer] exacerbation for the past 2 to 3 weeks. She received several rounds of antibiotics and steroids for our office for [employer] exacerbation she did not encounter any significant improvement. She ultimately came into the hospital for increased shortness of breath. She was briefly placed on BiPAP and the patient is currently on oxygen at 6 L/min nasal cannula with a pulse ox of 98%. She is quite short of breath even at rest. Not using accessory muscles of breathing. Sodium levels at 126, potassium is 4.3, bicarb is 29, BUN is at 8 with a creatinine of 0.39. WBC count of 4.7 with a hemoglobin of 14.5 and a platelet count of 241. The viral screen came back negative. The chest x-ray shows no acute abnormalities. There is hyperinflation consistent with COPD. Scattered senescent parenchymal changes are seen bilaterally. Findings are essentially consistent with COPD. She was started on bronchodilators with D uoNeb updrafts. She is also on IV Solu-Medrol. She was started on Zithromax as an empiric antibiotic coverage and she is also normal saline at rate of 75 cc an hour. No frequent hospital admissions for COPD exacerbation. Her last admission to the hospital was back in 2021 essentially same presentation. She has been trying to quit smoking and she has not smoked for the past several months. She has been smoking since the age of 11 and she carries more than [id number] smoking history. On 08/11/2023, the patient is being seen for a follow-up. The patient was hospitalized for an acute Exacerbation the patient is feeling better on today's evaluation this bronchospastic and wheezy. She is known to have HIV. Viral constant CD4 counts are still pending for now. She is currently on Zithromax, IV Solu-Medrol, DuoNeb nebulized treatments [id number]. She has failed outpatient treatment for that reason the patient was hospitalized. No fever. No altered mentation. No other new complaints otherwise for now. Oxygenation is stable on 3 L O2 nasal cannula with a pulse ox of 98%. On today's evaluation of 08/12/2023, the patient reports limited improvement since yesterday. Still bronchospastic and wheezy and continues to be short of breath. Maintained on Symbicort and DuoNeb updrafts and maintained on IV Solu- Medrol 60 mg every 6 hours. She remains on empiric antibiotic coverage with IV Zithromax. No nausea vomiting or diarrhea. BUN is at 19 with a creatinine of 0.5 and a sodium levels at 138. No other significant events otherwise for now. The patient has a impaired CD4 count of 81. As such, the patient is high immunosuppressed and she may be potentially at risk of opportunistic infection. Patient continue antiretroviral treatment. Obtain a follow-up chest x-ray tomorrow. On 08/13/2023, the patient is quite lethargic on a BiPAP. Events from yesterday was noted. The patient became progressively more short of breath. She became restless, anxious, along with increased agitation and respiratory distress. The patient accordingly was placed on a BiPAP at a pressure of 12 over 5 cm of water and currently she is on #2 of 60%. She is generating a tidal volume of around about 400 with a minute ventilation of 7.4. Respirate is currently at 18. She is actively bronchospastic and wheezy. Blood gases that was done before the BiPAP utilization showed a pH of 7.24 with a pCO2 of 98 and pO2 of 69. Rest of the labs from today are still pending. A repeat chest x-ray was done this morning and it shows no evidence of any acute cardiopulmonary process. The patient remains on bronchodilators. The patient remains on IV Solu-Medrol 60 mg every 6 hours. As mentioned earlier, her CD4 count was low at 81. Nevertheless, no indication for any opportunistic infections at this point in time. Her temperature is low and the patient is afebrile and hemodynamically stable. She did receive Ativan 1 mg and she seems to be much more comfortable and synchronous with the BiPAP treatment. Will transfer the patient to the intensive care unit. Will repeat her blood gas. Use Precedex if needed. Patient was placed today on 08/14/2023, patient was admitted few days ago, however yesterday patient was intubated and required mechanical ventilation. Patient is now on assist-control rate of 16 tidal volume 350 FiO2 45% and PEEP of 5 ABG on 40% and rate of 16 showed a pO2 of 59 pCO2 51 pH of 7.47 hence I increased the FiO2 to 45% and cut down the rate to 14. Patient will be allowed to have more permissive hypercapnia patient is still requiring significant amount of sedation including propofol at 50 mcg/kg/min Nimbex at 2 mcg/kg/min she is also on Dilaudid [id number], on Lovenox enteral feeding, and IV fluid at 0.9 normal saline at 75 cc/h. Patient is not requiring any pressors or any inotropes. Patient is immunocompromise, she does have history of HIV, and she has very low CD4 count of 81. She is definitely high risk for opportunistic infections, infectious disease was consulted. Considering her gases and considering her physical exam findings, patient is not quite ready for weaning, and I have no plans to wean and extubate today. I will keep the patient presently on Nimbex, she got intubated last night, and will continue broncho dilators, continue steroids, and continue enteral feeding/nutritional support. Chest x-ray this morning showed emphysematous changes, no acute pulmonary process. CT of the brain showed a focal area of hypoattenuation involving the inferior right temporal lobe.May represent an infarct, possibly chronic. BBC count today is 9.2 hemoglobin is 12.5 basic metabolic profile is normal bicarb is 37, renal profile is normal. 09/03/2023, the patient is awake, sitting up on a recliner on a pressure support mode of mechanical ventilation at the pressure of 12 with a PEEP of 5. She is comfortable with the blood gas showed a pH of 7.48 with a pCO2 of 46 and pO2 of 133. She is profoundly weak. Trying to move her extremities and she is involved in physical therapy and passive range of motion. She is still on the same bronchodilators. Prednisone is currently down to 20 mg. She is on vital AF at the rate of 61. She is looking into going into [facility]. The white cell count is at 7 with a hemoglobin of 9.6 and a platelet count of 265. BUN is 22 with a creatinine 0.15 and a sodium level is at 133 with a potassium level of 4.0. No fever. Mental status is adequate. No agitation. Fluid balance is -2.1 L over the past 24 hours. Patient was reevaluated today on 09/04/2023, remains in the ICU, remains intubated and mechanically ventilated. However the patient is tolerating pressure support quite well. She is on pressure support of 12, and I cut down her pressure support to 10. Patient has been in the ICU now for the last 25 days. She is awake, follows all simple instructions but the patient is extremely and profoundly weak. 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 Patient continues to have tracheostomy in place, and I am not planning to go to trach collar at this point yet, we will try to taper down her pressure support from 12-10. Remains on enteral feeding receiving vital AF at 51 cc/h via PEG tube, this is at goal. Labs today were reviewed she had a WBC count of 6.4 hemoglobin 9.9 basic metabolic profile is normal potassium 3.3 bein g addressed accordingly renal profile is normal. Chest x-ray showed no evidence of pneumonia, patient does have right-sided PICC line terminating in the cavoatrial junction. Tracheostomy is intact her last sputum culture was +08/12 for Rimma albicans, her bronchial washings have been positive for Rimma albicans, patient has been receiving Eraxis all along. Infectious disease will most likely discontinue Eraxis today. Patient was reevaluated today on 09/05/2023, patient is now sitting at the bedside chair, remains on pressure support mode of mechanical ventilation, today I gave the patient a trial of trach collar, patient failed within less than 10 minutes, she was noted to be short of breath, tachycardic, tachypneic, and she had to be placed back on pressure support mode of mechanical ventilation with pressure support of 12 and CPAP. Chest x-ray continues to show no evidence of active disease. CBC and basic metabolic profile today are relatively normal, bicarb is 32. Patient was denied transfer to LTAC facility, could not reach her insurance for peer to peer review. Left a message. Meantime we will continue to have daily trials and weaning trials for weaning this patient from mechanical ventilation. 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 Hence in my assessment patient will definitely benefit from transfer to an LTAC facility. They could handle the weaning process over a period of time. She needs physical therapy to get her muscle weakness improved. Patient was reevaluated today on 09/06/2023, patient has been doing fairly well over the last 24 hours with pressure support only of 14, however the patient seems to be tiring out, and seems to be developing more shortness of breath today compared to yesterday. She is getting a bit restless agitated, tachypneic and tachycardic, I tried the patient on IMV mode along with pressure support con tinue to do poorly, hence I transitioned the patient completely to assist- control mode of mechanical ventilation with assist-control rate of 12 tidal volume 400 FiO2 35% and PEEP of 5 obviously the patient is not ready to be weaned further and she is not doing great with pressure support only but she did well for 24 hours my plan today is to rest her back on assist-control mode of mechanical ventilation. Patient is getting nutritional support via PEG tube, she is on Eraxis and on Bactrim. Chest x-ray continues to show no evidence of infiltrate. WBC count today is 3.8 hemoglobin 9.5 basic metabolic profile is normal potassium is a bit low at 3.4 BUN is 18 creatinine 0.18. Patient remains on Biktarvy, patient is also on prednisone 20 mg daily. Remains on bronchodilators/DuoNeb updrafts and she is also on Pulmicort and Perforomist. Patient was earlier today on 09/07/2023, remains in the ICU, intubated and mechanically ventilated. Patient is not tolerating trials of weaning, yesterday I had to place back on. Ventilatory support, and she remains on assist-control mode of mechanical ventilation, AC rate of 12, tidal volume 400 FiO2 35% and PEEP of 5. Patient seems to be very comfortable on that mode of mechanical ventilation, however I plan today to give her a trial of pressure support again and I will likely alternate pressure support mode of mechanical ventilation with pressure support of 14 and every 2 hours alternate with assist-control mode of mechanical ventilation. WBC count is 4.8 hemoglobin 9.7 basic metabolic profile is normal renal profile is normal. Chest x-ray showed no evidence of infiltrate Patient was currently on 09/08/2023, remains in the ICU intubated and mechanically ventilated, patient has been a failure to wean, yesterday we alternated pressure support mode of mechanical ventilation with assist-control mode of mechanical ventilation throughout the day and transitioning was done every 2 hours. Patient did well today I plan to extend the pressure support mode of mechanical ventilation longer or as long as the patient tolerates. She will be on pressure support of 14. No backup IMV rate, patient seems to be tolerating that mode very well. However the patient seems to have developed some fecal impaction or constipation with distended abdomen, and dilated bowel loops, patient is receiving MiraLAX and lactulose, and her abdominal distention will be addressed with decompression from the PEG tube, and will continue MiraLAX and lactulose. On physical examination she does not have a surgical abdomen but that is a bit of a concern if the patient does not decompress. For her severe critical illness polyneuropathy and myopathy I am recommending evaluation by neurology. Patient is again very difficult to wean, and I still believe the patient would benefit and she will be better off in LTAC, chest x- ray continues to show no infiltrate. WBC count is 4.9 hemoglobin is 10.0 basic metabolic profile is normal sodium is a bit low at 130 renal profile is normal Objective - Vital Signs Vital signs: Vital Signs Temp 98.5 F 09/08/23 08:00 Pulse 94 09/08/23 11:46 Resp 21 09/08/23 11:46 BP 112/79 09/08/23 11:00 Pulse Ox 100 09/08/23 11:00 FiO2 35 09/08/23 11:42 Intake & Output 09/07/23 09/08/23 09/08/23 18:59 06:59 18:59 Intake Total 1166 880 240 Output Total 930 685 105 Balance 236 195 135 Weight 58 kg 58.7 kg Intake: IV 440 260 180 Anidulafungin 100 mg In 100 Sodium Chloride 0.9% 100 ml @ 84 mls/hr IVPB DAILY @1600 [facility] Rx#:[id number] Potassium Chloride 10 meq 100 In Water For Injection 1 100ml.bag @ 100 mls/hr IVPB Q1H [facility] Rx#: [id number] Potassium Chloride 10 meq 100 In Water For Injection 1 100ml.bag @ 100 mls/hr IVPB Q1H [facility] Rx#: [id number] Sodium Chloride 0.9% 1, 240 260 80 000 ml @ 20 mls/hr IV . Q24H [facility] Rx#:[id number] Oral 60 Tube Feeding 636 530 Other 90 90 Output: Urine 930 685 105 Other: Voiding Method Indwelling Catheter Indwelling Catheter Indwelling Catheter ABP, PAP, CO, CI - Last Documented Arterial Blood Pressure 109/53 - Exam General: Revealed 52-year-old female, awake, in no distress. Presently on pressure support mode of mechanical ventilation with pressure support of 14 Skin: Skin is warm and dry and no rashes or lesions are noted. Eye: Pupils are equal, round and reactive to light, extra-ocular movements are intact Ears, nose, mouth and throat: There are moist mucous membranes and no oral lesions. Neck: The neck is supple, there is no tenderness or JVD. Tracheostomy is intact. Cardiovascular: Normal S1-S2, no S3 gallop. No murmur. Respiratory: Good breath sound bilaterally no rhonchi no wheezes Gastrointestinal: Abdomen is slightly distended tender, negative bowel sounds. Musculoskeletal: Continues to have profound muscle weakness bilaterally. Neurological: Alert and oriented x 3, generally weak Psychiatric: Normal mood, affect and normal mental status examination. Skin: No rashes - Labs CBC & Chem 7: 09/08/23 04:27 09/08/23 04:19 Labs: Abnormal Lab Results - Last 24 Hours (Table) 09/07/23 09/08/23 09/08/23 Range/Units 17:56 04:19 04:27 RBC 3.16 L (3.80-5.40) m/uL Hgb 10.0 L (11.4-16.0) gm/dL Hct 31.5 L (34.0-46.0) % Sodium 130 L (137-145) mmol/L Creatinine 0.16 L (0.52-1.04) mg/dL POC Glucose (mg/dL) 138 H (70-110) mg/dL 09/08/23 Range/Units 11:37 RBC (3.80-5.40) m/uL Hgb (11.4-16.0) gm/dL Hct (34.0-46.0) % Sodium (137-145) mmol/L Creatinine (0.52-1.04) mg/dL POC Glucose (mg/dL) 123 H (70-110) mg/dL Assessment and Plan Assessment: Impression: Acute hypoxic respiratory failure secondary to acute exacerbation of COPD requiring intubation mechanical ventilation on 08/13/2023. Also requiring tracheostomy for failure to wean continues to have tracheostomy in place, patient tolerated pressure support for mechanical ventilation for about 24 hours, today patient is on assist-control mode of mechanical ventilation, and will try out to alternate this mode with pressure support mode of mechanical ventilation every 2 hours. Advanced COPD left upper lobe 9 mm nodule seen on CT of the chest, needs outpatient follow History of HIV,patient has very low CD4 count, she is prone to opportunistic infections, cultures have been negative from BAL, patient is empirically on Levaquin Status post bronchoscopy and BAL 08/12, nondiagnostic Critical illness polyneuropathy with profound weakness Rimma in the sputum/BAL, receiving Eraxis as per ID on the case Failure to wean from mechanical ventilation, still recommend patient needs to have to be transferred to LTAC facility. Abdominal distention and possibly fecal impaction, patient is receiving MiraLAX lactulose and she will have PEG tube to suction Recommendation: Continue weaning trials with pressure support mode of mechanical ventilation today with pressure support of 14 Continue BuSpar for anxiet Continue Seroquel and Zoloft. Hold tube feeding and apply PEG tube to suction Continue MiraLAX and continue lactulose Hold enteral feeding for now today. Continue bronchodilators Continue GI and DVT prophylaxis Continue steroids, taper Continue on Biktarvy for HIV treatment, continue Bactrim Patient remains critically ill Critical care time is over 30 minutes Again I am strongly recommending placement of the patient in LTAC facility as she will be a very slow weaning process and may take months Will continue to follow Time with Patient: Greater than 30
--- NOTE | 2023-09-08 13:17 | P.CNNES ---
History of Present Illness Consult date: 09/08/23 Requesting physician: Cinthya Villegas Reason for Consult: foot drop History of Present Illness: This is a 52-year-old woman with history of HIV, who presented because of respiratory distress facility on 08/10/2023. Some of the history is obtained from ICU nurses, medical record. Please consulted for foot drop. According to the patient prior to coming to the hospital she was doing well she was walking without any assistance. And she could not give me the details of what transpired and that led her to come to the hospital. Seems she has been having respiratory distress and COPD exacerbation for the last 2 to 3 weeks per [facility] team. As a result of her shortness of breath and as a result she required intubation mechanical ventilation on 08/13/2023 then eventually she required a trach and a PEG. During this hospital visit she was on IV Nimbex. It was felt the patient is having foot drop per the ICU team. Patient continues to be in ICU. Per the patient she has minimal neck pain. Denies of any lower back pain. She was adamant that prior to this admission she was walking without any assistance and denies any difficulty swallowing. She denies any history of stroke or seizures in the past. Denies any recent contacts or fevers. Some of the workup during this hospital visit consisted of: Sodium is 130 POC glucose is 123 Calcium is 9.0 AST of 73 ALT of 88. CRP is 0.6. He suppressor cell is 128. Reviewed the rest of the lab workup. CT head is reported as focal area of hypoattenuation involving the inferior right temporal lobe. Finding may represent age-indeterminate infarct. Consider follow-up MRI of the brain for further evaluation. No evidence of hemorrhage. I personally reviewed the CT and I had a hard time appreciating the hypoattenuation reported. 2D echo was reported as technically difficult study. Normal left ventricle systolic function. Poorly visualized intracardiac valves. Review of Systems The positive and negative as per HPI. Past Medical History Past Medical History: Asthma, Blood Disorder, COPD Additional Past Medical History / Comment(s): hiv History of Any Multi-Drug Resistant Organisms: None Reported Past Surgical History: No Surgical Hx Reported Past Psychological History: Depression Smoking Status: Current every day smoker Past Alcohol Use History: None Reported, Occasional Past Drug Use History: None Reported Medications and Allergies Home Medications Medication Instructions Recorded Confirmed Type Albuterol Sulfate [Albuterol 2 puff PO RT-Q4H PRN 03/14/22 08/10/23 History Sulfate Hfa] Bictegrav/Emtricit/Tenofov Ala 1 tab PO DAILY 08/10/23 08/10/23 History [Biktarvy 50-200-25 mg Tablet] Fluticasone/Umeclidin/Vilanter 1 puff INHALATION RT-DAILY 08/10/23 08/10/23 History [Trelegy Ellipta 200-62.5-25] Ipratropium-Albuterol Nebulize 3 ml INHALATION RT-Q6H PRN 08/10/23 08/10/23 History [Duoneb 0.5 mg-3 mg/3 ml Soln] Sertraline [Zoloft] 50 mg PO DAILY 08/10/23 08/10/23 History traZODone HCL [Desyrel] 100 mg PO HS 08/10/23 08/10/23 History Sulfamethox-Tmp 800-160Mg [Bactrim 1 tab PO DAILY #30 tab 09/04/23 Rx DS 800-160 mg] Allergies Allergy/AdvReac Type Severity Reaction Status Date / Time Penicillins Allergy Anaphylaxis Verified 08/10/23 14:58 Physical Examination - Vital Signs Vital Signs: Vital Signs Temp Pulse Resp BP Pulse Ox FiO2 09/08/23 12:19 35 09/08/23 12:00 106 H 28 H 121/87 98 09/08/23 11:46 94 21 09/08/23 11:42 35 09/08/23 11:32 90 21 09/08/23 11:30 35 09/08/23 11:00 88 13 112/79 100 09/08/23 10:20 35 09/08/23 10:00 102 H 12 123/81 100 09/08/23 09:00 112 H 16 126/86 100 09/08/23 08:37 95 15 09/08/23 08:27 94 15 09/08/23 08:12 86 17 09/08/23 08:07 35 09/08/23 08:00 98.5 F 85 16 129/90 100 35 09/08/23 07:00 93 18 125/98 100 09/08/23 06:00 107 H 25 H 120/100 99 09/08/23 05:00 108 H 22 118/83 99 35 09/08/23 04:00 99 24 102/83 99 35 09/08/23 03:49 97 09/08/23 03:41 95 35 09/08/23 03:00 93 20 112/73 100 35 09/08/23 02:00 97 21 114/71 100 09/08/23 01:00 98.4 F 101 H 21 118/72 100 35 09/08/23 00:03 90 14 118/72 100 09/08/23 00:00 87 19 104/67 100 35 09/07/23 23:54 82 09/07/23 23:48 35 09/07/23 23:47 80 09/07/23 23:00 85 12 96/67 100 09/07/23 22:00 102 H 10 L 109/77 98 35 09/07/23 21:56 35 09/07/23 21:00 112 H 13 104/74 100 09/07/23 20:00 123 H 22 110/71 98 35 09/07/23 19:53 117 H 09/07/23 19:46 117 H 09/07/23 19:40 35 09/07/23 19:34 35 09/07/23 19:33 111 H 09/07/23 19:00 111 H 18 110/71 98 09/07/23 18:00 117 H 17 116/76 99 09/07/23 17:00 130 H 12 124/88 98 09/07/23 16:21 118 H 26 H 09/07/23 16:08 110 H 16 09/07/23 16:00 98.7 F 111 H 13 118/83 98 35 09/07/23 15:15 35 09/07/23 15:00 104 H 14 98/65 99 09/07/23 14:00 103 H 17 109/69 99 09/07/23 13:00 111 H 17 109/69 100 Intake and Output 09/07/23 09/08/23 09/08/23 22:59 06:59 14:59 Intake Total 774 528 260 Output Total 705 385 150 Balance 69 143 110 Intake: IV 260 180 200 Anidulafungin 100 mg In 100 Sodium Chloride 0.9% 100 ml @ 84 mls/hr IVPB DAILY @1600 [facility] Rx#:[id number] Potassium Chloride 10 meq 100 In Water For Injection 1 100ml.bag @ 100 mls/hr IVPB Q1H [facility] Rx#: [id number] Sodium Chloride 0.9% 1, 160 180 100 000 ml @ 20 mls/hr IV . Q24H [facility] Rx#:[id number] Oral 60 Tube Feeding 424 318 Other 90 30 Output: Urine 705 385 150 Other: Voiding Method Indwelling Catheter Indwelling Catheter Indwelling Catheter Weight 58.7 kg General: Lying in bed and is not in acute distress. HENT: Supple neck Resp: Trach on ventilator. Abdomen: +ve PEG tube Neuro: The patient is awake alert oriented to self and place. She is communicating and able to understand her thru reading her lip. She is following simple commands. Pupils are round, equal, about 3mm and reactive to light. Visual moralez are full to confrontation. EOM is intact and no nystagmus. No facial weakness. Motor: Limited. Strength is elbow extension are 4- to 4+ bilaterally, hand unified communications engineer are 2-3/5 bilaterally, otherwise uppers are 1-2. In lowers: hips are 2/5 bilaterally, knee extension are 4 bilaterally, ankle plantarflexion are 3/5 bilaterally, has bilateral foot drop. Reflex (R/L): biceps0-1+/0-1+ , triceps2+/1+, brachioradialis 1+/1+, patellar 2+/0-1+. ankles are 0/0. Plantars are mute bilaterally. Results - Laboratory Findings CBC and BMP: 09/08/23 04:27 09/08/23 04:19 Abnormal Lab Findings: Abnormal Labs 08/10/23 08/10/23 08/12/23 13:19 22:02 12:13 WBC RBC Hgb Hct MCV MCHC Neutrophils # Lymphocytes # ABG pH ABG pCO2 ABG pO2 ABG HCO3 ABG Total CO2 ABG O2 Saturation VBG pH VBG pCO2 VBG HCO3 Sodium 126 L Potassium Chloride 93 L Carbon Dioxide 37 H BUN 19 H Creatinine 0.39 L BUN/Creatinine Ratio Glucose 107 H 119 H POC Glucose (mg/dL) Calcium 8.0 L Magnesium AST 40 H ALT 38 H Total Protein Albumin Urine Blood Urine Bacteria Fluid Appearance T-Suppressor Cells 128 L % CD4 [place] 28 L Absolute CD4 [place] 81 L CD4/CD8 Ratio 0.6 L % CD8 Suppressor 44 H HIV-1 RNA (PCR) 08/13/23 08/13/23 08/13/23 02:02 02:47 05:54 WBC RBC Hgb Hct MCV MCHC Neutrophils # Lymphocytes # ABG pH 7.24 L ABG pCO2 98 H* ABG pO2 69 L ABG HCO3 43 H* ABG Total CO2 46 H ABG O2 Saturation 93.0 L VBG pH VBG pCO2 VBG HCO3 Sodium Potassium Chloride Carbon Dioxide BUN Creatinine BUN/Creatinine Ratio Glucose POC Glucose (mg/dL) 146 H 120 H Calcium Magnesium AST ALT Total Protein Albumin Urine Blood Urine Bacteria Fluid Appearance T-Suppressor Cells % CD4 [place] Absolute CD4 [place] CD4/CD8 Ratio % CD8 Suppressor HIV-1 RNA (PCR) 08/13/23 08/13/23 08/13/23 08:53 08:53 08:56 WBC 15.7 H RBC Hgb Hct 46.6 H MCV 107.1 H D MCHC Neutrophils # 13.3 H Lymphocytes # ABG pH ABG pCO2 ABG pO2 ABG HCO3 ABG Total CO2 ABG O2 Saturation VBG pH 7.22 L VBG pCO2 95 H* VBG HCO3 39 H Sodium Potassium Chloride 94 L Carbon Dioxide 38.2 H BUN Creatinine 0.5 L BUN/Creatinine Ratio 46.00 H Glucose 168 H POC Glucose (mg/dL) Calcium Magnesium AST ALT Total Protein Albumin Urine Blood Urine Bacteria Fluid Appearance T-Suppressor Cells % CD4 [place] Absolute CD4 [place] CD4/CD8 Ratio % CD8 Suppressor HIV-1 RNA (PCR) 08/13/23 08/13/23 08/13/23 11:07 11:26 11:28 WBC RBC Hgb Hct MCV MCHC Neutrophils # Lymphocytes # ABG pH 7.22 L ABG pCO2 109 H* ABG pO2 205 H ABG HCO3 45 H* ABG Total CO2 48 H ABG O2 Saturation 99.1 H VBG pH VBG pCO2 VBG HCO3 Sodium Potassium Chloride Carbon Dioxide BUN Creatinine BUN/Creatinine Ratio Glucose POC Glucose (mg/dL) 163 H 148 H Calcium Magnesium AST ALT Total Protein Albumin Urine Blood Urine Bacteria Fluid Appearance T-Suppressor Cells % CD4 [place] Absolute CD4 [place] CD4/CD8 Ratio % CD8 Suppressor HIV-1 RNA (PCR) 08/13/23 08/13/23 08/13/23 13:27 13:30 13:39 WBC RBC Hgb Hct MCV MCHC Neutrophils # Lymphocytes # ABG pH ABG pCO2 76 H* ABG pO2 >400 H ABG HCO3 42 H* ABG Total CO2 44 H ABG O2 Saturation 99.7 H VBG pH VBG pCO2 VBG HCO3 Sodium 135 L Potassium Chloride 95 L Carbon Dioxide 39 H BUN 31 H Creatinine 0.39 L BUN/Creatinine Ratio Glucose 182 H POC Glucose (mg/dL) Calcium 8.2 L Magnesium AST 52 H ALT 80 H Total Protein 5.8 L Albumin 3.4 L Urine Blood Urine Bacteria Fluid Appearance Cloudy A T-Suppressor Cells % CD4 [place] Absolute CD4 [place] CD4/CD8 Ratio % CD8 Suppressor HIV-1 RNA (PCR) 08/13/23 08/13/23 08/14/23 18:03 23:37 04:33 WBC RBC Hgb Hct MCV 103.7 H MCHC Neutrophils # 8.2 H Lymphocytes # 0.6 L ABG pH ABG pCO2 ABG pO2 ABG HCO3 ABG Total CO2 ABG O2 Saturation VBG pH VBG pCO2 VBG HCO3 Sodium Potassium Chloride Carbon Dioxide BUN Creatinine BUN/Creatinine Ratio Glucose POC Glucose (mg/dL) 161 H 162 H Calcium Magnesium AST ALT Total Protein Albumin Urine Blood Urine Bacteria Fluid Appearance T-Suppressor Cells % CD4 [place] Absolute CD4 [place] CD4/CD8 Ratio % CD8 Suppressor HIV-1 RNA (PCR) 08/14/23 08/14/23 08/14/23 04:33 05:48 06:01 WBC RBC Hgb Hct MCV MCHC Neutrophils # Lymphocytes # ABG pH 7.47 H ABG pCO2 51 H ABG pO2 59 L* ABG HCO3 37 H ABG Total CO2 38 H ABG O2 Saturation VBG pH VBG pCO2 VBG HCO3 Sodium 135 L Potassium Chloride Carbon Dioxide 37 H BUN 29 H Creatinine 0.43 L BUN/Creatinine Ratio Glucose 151 H POC Glucose (mg/dL) 167 H Calcium 8.3 L Magnesium AST ALT Total Protein Albumin Urine Blood Urine Bacteria Fluid Appearance T-Suppressor Cells % CD4 [place] Absolute CD4 [place] CD4/CD8 Ratio % CD8 Suppressor HIV-1 RNA (PCR) 08/14/23 08/14/23 08/14/23 11:45 18:04 23:59 WBC RBC Hgb Hct MCV MCHC Neutrophils # Lymphocytes # ABG pH ABG pCO2 ABG pO2 ABG HCO3 ABG Total CO2 ABG O2 Saturation VBG pH VBG pCO2 VBG HCO3 Sodium Potassium Chloride Carbon Dioxide BUN Creatinine BUN/Creatinine Ratio Glucose POC Glucose (mg/dL) 167 H 136 H 162 H Calcium Magnesium AST ALT Total Protein Albumin Urine Blood Urine Bacteria Fluid Appearance T-Suppressor Cells % CD4 [place] Absolute CD4 [place] CD4/CD8 Ratio % CD8 Suppressor HIV-1 RNA (PCR) 08/15/23 08/15/23 08/15/23 05:22 05:27 05:27 WBC RBC 3.24 L Hgb 10.3 L Hct MCV 105.9 H MCHC 30.2 L Neutrophils # Lymphocytes # 0.2 L ABG pH ABG pCO2 ABG pO2 ABG HCO3 ABG Total CO2 ABG O2 Saturation VBG pH VBG pCO2 VBG HCO3 Sodium Potassium Chloride Carbon Dioxide 39 H BUN 25 H Creatinine 0.47 L BUN/Creatinine Ratio Glucose 174 H POC Glucose (mg/dL) 171 H Calcium Magnesium AST ALT Total Protein Albumin Urine Blood Urine Bacteria Fluid Appearance T-Suppressor Cells % CD4 [place] Absolute CD4 [place] CD4/CD8 Ratio % CD8 Suppressor HIV-1 RNA (PCR) 08/15/23 08/15/23 08/15/23 05:44 11:21 17:32 WBC RBC Hgb Hct MCV MCHC Neutrophils # Lymphocytes # ABG pH 7.29 L ABG pCO2 76 H* ABG pO2 165 H ABG HCO3 37 H ABG Total CO2 39 H ABG O2 Saturation 98.0 H VBG pH VBG pCO2 VBG HCO3 Sodium Potassium Chloride Carbon Dioxide BUN Creatinine BUN/Creatinine Ratio Glucose POC Glucose (mg/dL) 173 H 157 H Calcium Magnesium AST ALT Total Protein Albumin Urine Blood Urine Bacteria Fluid Appearance T-Suppressor Cells % CD4 [place] Absolute CD4 [place] CD4/CD8 Ratio % CD8 Suppressor HIV-1 RNA (PCR) 08/15/23 08/16/23 08/16/23 23:40 04:27 04:27 WBC RBC 3.71 L Hgb Hct MCV 106.0 H MCHC 30.5 L Neutrophils # Lymphocytes # 0.3 L ABG pH ABG pCO2 ABG pO2 ABG HCO3 ABG Total CO2 ABG O2 Saturation VBG pH VBG pCO2 VBG HCO3 Sodium Potassium Chloride Carbon Dioxide 37 H BUN 27 H Creatinine 0.47 L BUN/Creatinine Ratio Glucose 171 H POC Glucose (mg/dL) 157 H Calcium Magnesium AST ALT Total Protein Albumin Urine Blood Urine Bacteria Fluid Appearance T-Suppressor Cells % CD4 [place] Absolute CD4 [place] CD4/CD8 Ratio % CD8 Suppressor HIV-1 RNA (PCR) 08/16/23 08/16/23 08/16/23 05:43 05:52 11:55 WBC RBC Hgb Hct MCV MCHC Neutrophils # Lymphocytes # ABG pH 7.31 L ABG pCO2 68 H ABG pO2 ABG HCO3 35 H ABG Total CO2 37 H ABG O2 Saturation 98.5 H VBG pH VBG pCO2 VBG HCO3 Sodium Potassium Chloride Carbon Dioxide BUN Creatinine BUN/Creatinine Ratio Glucose POC Glucose (mg/dL) 152 H 177 H Calcium Magnesium AST ALT Total Protein Albumin Urine Blood Urine Bacteria Fluid Appearance T-Suppressor Cells % CD4 [place] Absolute CD4 [place] CD4/CD8 Ratio % CD8 Suppressor HIV-1 RNA (PCR) 08/16/23 08/16/23 08/17/23 18:00 23:17 04:51 WBC RBC 3.68 L Hgb Hct MCV 105.3 H MCHC Neutrophils # Lymphocytes # 0.2 L ABG pH ABG pCO2 ABG pO2 ABG HCO3 ABG Total CO2 ABG O2 Saturation VBG pH VBG pCO2 VBG HCO3 Sodium Potassium Chloride Carbon Dioxide BUN Creatinine BUN/Creatinine Ratio Glucose POC Glucose (mg/dL) 141 H 156 H Calcium Magnesium AST ALT Total Protein Albumin Urine Blood Urine Bacteria Fluid Appearance T-Suppressor Cells % CD4 [place] Absolute CD4 [place] CD4/CD8 Ratio % CD8 Suppressor HIV-1 RNA (PCR) 08/17/23 08/17/23 08/17/23 04:51 05:57 06:07 WBC RBC Hgb Hct MCV MCHC Neutrophils # Lymphocytes # ABG pH 7.33 L ABG pCO2 65 H ABG pO2 ABG HCO3 34 H ABG Total CO2 36 H ABG O2 Saturation 98.6 H VBG pH VBG pCO2 VBG HCO3 Sodium Potassium Chloride 108 H Carbon Dioxide 33 H BUN 29 H Creatinine 0.49 L BUN/Creatinine Ratio Glucose 152 H POC Glucose (mg/dL) 128 H Calcium 8.3 L Magnesium AST ALT Total Protein Albumin Urine Blood Urine Bacteria Fluid Appearance T-Suppressor Cells % CD4 [place] Absolute CD4 [place] CD4/CD8 Ratio % CD8 Suppressor HIV-1 RNA (PCR) 08/17/23 08/17/23 08/17/23 11:49 17:36 23:42 WBC RBC Hgb Hct MCV MCHC Neutrophils # Lymphocytes # ABG pH ABG pCO2 ABG pO2 ABG HCO3 ABG Total CO2 ABG O2 Saturation VBG pH VBG pCO2 VBG HCO3 Sodium Potassium Chloride Carbon Dioxide BUN Creatinine BUN/Creatinine Ratio Glucose POC Glucose (mg/dL) 158 H 127 H 151 H Calcium Magnesium AST ALT Total Protein Albumin Urine Blood Urine Bacteria Fluid Appearance T-Suppressor Cells % CD4 [place] Absolute CD4 [place] CD4/CD8 Ratio % CD8 Suppressor HIV-1 RNA (PCR) 08/18/23 08/18/23 08/18/23 04:40 04:40 05:40 WBC RBC 3.53 L Hgb Hct MCV 104.8 H MCHC Neutrophils # Lymphocytes # 0.4 L ABG pH ABG pCO2 66 H ABG pO2 ABG HCO3 37 H ABG Total CO2 39 H ABG O2 Saturation 97.2 H VBG pH VBG pCO2 VBG HCO3 Sodium Potassium Chloride Carbon Dioxide 36 H BUN 30 H Creatinine 0.40 L BUN/Creatinine Ratio Glucose 155 H POC Glucose (mg/dL) Calcium 8.2 L Magnesium AST ALT Total Protein Albumin Urine Blood Urine Bacteria Fluid Appearance T-Suppressor Cells % CD4 [place] Absolute CD4 [place] CD4/CD8 Ratio % CD8 Suppressor HIV-1 RNA (PCR) 08/18/23 08/18/23 08/18/23 05:42 12:14 18:07 WBC RBC Hgb Hct MCV MCHC Neutrophils # Lymphocytes # ABG pH ABG pCO2 ABG pO2 ABG HCO3 ABG Total CO2 ABG O2 Saturation VBG pH VBG pCO2 VBG HCO3 Sodium Potassium Chloride Carbon Dioxide BUN Creatinine BUN/Creatinine Ratio Glucose POC Glucose (mg/dL) 146 H 158 H 155 H Calcium Magnesium AST ALT Total Protein Albumin Urine Blood Urine Bacteria Fluid Appearance T-Suppressor Cells % CD4 [place] Absolute CD4 [place] CD4/CD8 Ratio % CD8 Suppressor HIV-1 RNA (PCR) 08/18/23 08/19/23 08/19/23 23:36 04:50 04:50 WBC RBC 3.70 L Hgb Hct MCV 106.7 H MCHC 30.1 L Neutrophils # Lymphocytes # ABG pH ABG pCO2 ABG pO2 ABG HCO3 ABG Total CO2 ABG O2 Saturation VBG pH VBG pCO2 VBG HCO3 Sodium Potassium Chloride 108 H Carbon Dioxide 36 H BUN 33 H Creatinine 0.40 L BUN/Creatinine Ratio Glucose 142 H POC Glucose (mg/dL) 145 H Calcium 8.2 L Magnesium AST ALT Total Protein Albumin Urine Blood Urine Bacteria Fluid Appearance T-Suppressor Cells % CD4 [place] Absolute CD4 [place] CD4/CD8 Ratio % CD8 Suppressor HIV-1 RNA (PCR) 08/19/23 08/19/23 08/19/23 04:50 12:39 23:01 WBC RBC Hgb Hct MCV MCHC Neutrophils # Lymphocytes # ABG pH ABG pCO2 68 H ABG pO2 ABG HCO3 37 H ABG Total CO2 39 H ABG O2 Saturation VBG pH VBG pCO2 VBG HCO3 Sodium Potassium Chloride Carbon Dioxide BUN Creatinine BUN/Creatinine Ratio Glucose POC Glucose (mg/dL) 115 H 136 H Calcium Magnesium AST ALT Total Protein Albumin Urine Blood Urine Bacteria Fluid Appearance T-Suppressor Cells % CD4 [place] Absolute CD4 [place] CD4/CD8 Ratio % CD8 Suppressor HIV-1 RNA (PCR) 08/20/23 08/20/23 08/20/23 05:40 05:40 06:13 WBC RBC 3.67 L Hgb Hct MCV 104.5 H MCHC Neutrophils # Lymphocytes # ABG pH ABG pCO2 ABG pO2 ABG HCO3 ABG Total CO2 ABG O2 Saturation VBG pH VBG pCO2 VBG HCO3 Sodium Potassium Chloride Carbon Dioxide 39 H BUN 33 H Creatinine 0.38 L BUN/Creatinine Ratio Glucose 135 H POC Glucose (mg/dL) 139 H Calcium 8.2 L Magnesium AST ALT Total Protein Albumin Urine Blood Urine Bacteria Fluid Appearance T-Suppressor Cells % CD4 [place] Absolute CD4 [place] CD4/CD8 Ratio % CD8 Suppressor HIV-1 RNA (PCR) 08/20/23 08/20/23 08/20/23 06:20 13:39 18:36 WBC RBC Hgb Hct MCV MCHC Neutrophils # Lymphocytes # ABG pH ABG pCO2 68 H ABG pO2 71 L ABG HCO3 42 H* ABG Total CO2 44 H ABG O2 Saturation VBG pH VBG pCO2 VBG HCO3 Sodium Potassium Chloride Carbon Dioxide BUN Creatinine BUN/Creatinine Ratio Glucose POC Glucose (mg/dL) 138 H 143 H Calcium Magnesium AST ALT Total Protein Albumin Urine Blood Urine Bacteria Fluid Appearance T-Suppressor Cells % CD4 [place] Absolute CD4 [place] CD4/CD8 Ratio % CD8 Suppressor HIV-1 RNA (PCR) 08/20/23 08/21/23 08/21/23 23:24 04:50 04:50 WBC 11.6 H RBC 3.70 L Hgb Hct MCV 103.5 H MCHC Neutrophils # 10.5 H Lymphocytes # 0.5 L ABG pH ABG pCO2 ABG pO2 ABG HCO3 ABG Total CO2 ABG O2 Saturation VBG pH VBG pCO2 VBG HCO3 Sodium 133 L Potassium Chloride 95 L Carbon Dioxide 40 H BUN 23 H Creatinine 0.29 L BUN/Creatinine Ratio Glucose 161 H POC Glucose (mg/dL) 127 H Calcium 7.7 L Magnesium AST ALT Total Protein Albumin Urine Blood Urine Bacteria Fluid Appearance T-Suppressor Cells % CD4 [place] Absolute CD4 [place] CD4/CD8 Ratio % CD8 Suppressor HIV-1 RNA (PCR) 08/21/23 08/21/23 08/21/23 05:08 05:38 11:51 WBC RBC Hgb Hct MCV MCHC Neutrophils # Lymphocytes # ABG pH ABG pCO2 70 H ABG pO2 63 L ABG HCO3 44 H* ABG Total CO2 46 H ABG O2 Saturation 93.9 L VBG pH VBG pCO2 VBG HCO3 Sodium Potassium Chloride Carbon Dioxide BUN Creatinine BUN/Creatinine Ratio Glucose POC Glucose (mg/dL) 164 H 154 H Calcium Magnesium AST ALT Total Protein Albumin Urine Blood Urine Bacteria Fluid Appearance T-Suppressor Cells % CD4 [place] Absolute CD4 [place] CD4/CD8 Ratio % CD8 Suppressor HIV-1 RNA (PCR) 08/21/23 08/21/23 08/22/23 17:51 23:30 05:25 WBC 10.7 H RBC 3.62 L Hgb Hct MCV 102.1 H MCHC Neutrophils # 9.6 H Lymphocytes # 0.6 L ABG pH ABG pCO2 ABG pO2 ABG HCO3 ABG Total CO2 ABG O2 Saturation VBG pH VBG pCO2 VBG HCO3 Sodium Potassium Chloride Carbon Dioxide BUN Creatinine BUN/Creatinine Ratio Glucose POC Glucose (mg/dL) 164 H 162 H Calcium Magnesium AST ALT Total Protein Albumin Urine Blood Urine Bacteria Fluid Appearance T-Suppressor Cells % CD4 [place] Absolute CD4 [place] CD4/CD8 Ratio % CD8 Suppressor HIV-1 RNA (PCR) 08/22/23 08/22/23 08/22/23 05:25 05:39 06:10 WBC RBC Hgb Hct MCV MCHC Neutrophils # Lymphocytes # ABG pH ABG pCO2 67 H ABG pO2 80 L ABG HCO3 44 H* ABG Total CO2 46 H ABG O2 Saturation VBG pH VBG pCO2 VBG HCO3 Sodium 135 L Potassium Chloride 97 L Carbon Dioxide 36 H BUN 25 H Creatinine 0.36 L BUN/Creatinine Ratio Glucose 136 H POC Glucose (mg/dL) 136 H Calcium 7.9 L Magnesium 2.4 H AST ALT Total Protein Albumin Urine Blood Urine Bacteria Fluid Appearance T-Suppressor Cells % CD4 [place] Absolute CD4 [place] CD4/CD8 Ratio % CD8 Suppressor HIV-1 RNA (PCR) 08/22/23 08/22/23 08/23/23 12:43 18:05 00:11 WBC RBC Hgb Hct MCV MCHC Neutrophils # Lymphocytes # ABG pH ABG pCO2 ABG pO2 ABG HCO3 ABG Total CO2 ABG O2 Saturation VBG pH VBG pCO2 VBG HCO3 Sodium Potassium Chloride Carbon Dioxide BUN Creatinine BUN/Creatinine Ratio Glucose POC Glucose (mg/dL) 139 H 124 H 112 H Calcium Magnesium AST ALT Total Protein Albumin Urine Blood Urine Bacteria Fluid Appearance T-Suppressor Cells % CD4 [place] Absolute CD4 [place] CD4/CD8 Ratio % CD8 Suppressor HIV-1 RNA (PCR) 08/23/23 08/23/23 08/23/23 04:54 04:54 05:30 WBC 13.4 H RBC 3.69 L Hgb Hct MCV 101.3 H MCHC Neutrophils # 12.2 H Lymphocytes # 0.5 L ABG pH ABG pCO2 ABG pO2 ABG HCO3 ABG Total CO2 ABG O2 Saturation VBG pH VBG pCO2 VBG HCO3 Sodium 136 L Potassium Chloride Carbon Dioxide 42 H* BUN 19 H Creatinine 0.30 L BUN/Creatinine Ratio Glucose 134 H POC Glucose (mg/dL) 128 H Calcium 8.1 L Magnesium AST ALT Total Protein Albumin Urine Blood Urine Bacteria Fluid Appearance T-Suppressor Cells % CD4 [place] Absolute CD4 [place] CD4/CD8 Ratio % CD8 Suppressor HIV-1 RNA (PCR) 08/23/23 08/23/23 08/23/23 05:40 11:44 17:10 WBC RBC Hgb Hct MCV MCHC Neutrophils # Lymphocytes # ABG pH ABG pCO2 63 H ABG pO2 ABG HCO3 42 H* ABG Total CO2 44 H ABG O2 Saturation 98.2 H VBG pH VBG pCO2 VBG HCO3 Sodium Potassium Chloride Carbon Dioxide BUN Creatinine BUN/Creatinine Ratio Glucose POC Glucose (mg/dL) 170 H 130 H Calcium Magnesium AST ALT Total Protein Albumin Urine Blood Urine Bacteria Fluid Appearance T-Suppressor Cells % CD4 [place] Absolute CD4 [place] CD4/CD8 Ratio % CD8 Suppressor HIV-1 RNA (PCR) 08/23/23 08/24/23 08/24/23 17:58 04:00 04:00 WBC 15.0 H RBC 3.71 L Hgb Hct MCV 101.2 H MCHC Neutrophils # 14.0 H Lymphocytes # 0.4 L ABG pH ABG pCO2 ABG pO2 ABG HCO3 ABG Total CO2 ABG O2 Saturation VBG pH VBG pCO2 VBG HCO3 Sodium 136 L Potassium Chloride Carbon Dioxide 34 H BUN 26 H Creatinine 0.28 L BUN/Creatinine Ratio Glucose 125 H POC Glucose (mg/dL) 127 H Calcium 8.0 L Magnesium AST 73 H ALT 88 H Total Protein 4.6 L Albumin 2.6 L Urine Blood Urine Bacteria Fluid Appearance T-Suppressor Cells % CD4 [place] Absolute CD4 [place] CD4/CD8 Ratio % CD8 Suppressor HIV-1 RNA (PCR) 08/24/23 08/24/23 08/24/23 05:47 11:33 12:38 WBC RBC Hgb Hct MCV MCHC Neutrophils # Lymphocytes # ABG pH ABG pCO2 63 H ABG pO2 76 L ABG HCO3 39 H ABG Total CO2 42 H ABG O2 Saturation VBG pH VBG pCO2 VBG HCO3 Sodium Potassium Chloride Carbon Dioxide BUN Creatinine BUN/Creatinine Ratio Glucose POC Glucose (mg/dL) 111 H 62 L Calcium Magnesium AST ALT Total Protein Albumin Urine Blood Urine Bacteria Fluid Appearance T-Suppressor Cells % CD4 [place] Absolute CD4 [place] CD4/CD8 Ratio % CD8 Suppressor HIV-1 RNA (PCR) 08/25/23 08/25/23 08/25/23 04:37 04:37 05:23 WBC 16.9 H RBC Hgb Hct MCV 100.6 H MCHC Neutrophils # 15.7 H Lymphocytes # 0.3 L ABG pH ABG pCO2 ABG pO2 ABG HCO3 ABG Total CO2 ABG O2 Saturation VBG pH VBG pCO2 VBG HCO3 Sodium 136 L Potassium Chloride Carbon Dioxide 37 H BUN 24 H Creatinine 0.27 L BUN/Creatinine Ratio Glucose 155 H POC Glucose (mg/dL) 64 L Calcium 8.0 L Magnesium AST ALT Total Protein Albumin Urine Blood Urine Bacteria Fluid Appearance T-Suppressor Cells % CD4 [place] Absolute CD4 [place] CD4/CD8 Ratio % CD8 Suppressor HIV-1 RNA (PCR) 08/25/23 08/25/23 08/25/23 05:26 11:36 17:47 WBC RBC Hgb Hct MCV MCHC Neutrophils # Lymphocytes # ABG pH ABG pCO2 56 H ABG pO2 69 L ABG HCO3 39 H ABG Total CO2 41 H ABG O2 Saturation VBG pH VBG pCO2 VBG HCO3 Sodium Potassium Chloride Carbon Dioxide BUN Creatinine BUN/Creatinine Ratio Glucose POC Glucose (mg/dL) 158 H 122 H Calcium Magnesium AST ALT Total Protein Albumin Urine Blood Urine Bacteria Fluid Appearance T-Suppressor Cells % CD4 [place] Absolute CD4 [place] CD4/CD8 Ratio % CD8 Suppressor HIV-1 RNA (PCR) 0408/26/23 08/26/23 23:44 04:08 04:08 WBC 17.7 H RBC Hgb Hct MCV MCHC Neutrophils # 16.7 H Lymphocytes # 0.2 L ABG pH ABG pCO2 ABG pO2 ABG HCO3 ABG Total CO2 ABG O2 Saturation VBG pH VBG pCO2 VBG HCO3 Sodium 135 L Potassium Chloride Carbon Dioxide 38 H BUN 21 H Creatinine 0.25 L BUN/Creatinine Ratio Glucose 143 H POC Glucose (mg/dL) 126 H Calcium 7.7 L Magnesium 2.4 H AST ALT Total Protein Albumin Urine Blood Urine Bacteria Fluid Appearance T-Suppressor Cells % CD4 [place] Absolute CD4 [place] CD4/CD8 Ratio % CD8 Suppressor HIV-1 RNA (PCR) 08/26/23 08/26/23 08/26/23 04:10 06:38 11:37 WBC RBC Hgb Hct MCV MCHC Neutrophils # Lymphocytes # ABG pH 7.46 H ABG pCO2 57 H ABG pO2 74 L ABG HCO3 40 H* ABG Total CO2 42 H ABG O2 Saturation VBG pH VBG pCO2 VBG HCO3 Sodium Potassium Chloride Carbon Dioxide BUN Creatinine BUN/Creatinine Ratio Glucose POC Glucose (mg/dL) 153 H 148 H Calcium Magnesium AST ALT Total Protein Albumin Urine Blood Urine Bacteria Fluid Appearance T-Suppressor Cells % CD4 [place] Absolute CD4 [place] CD4/CD8 Ratio % CD8 Suppressor HIV-1 RNA (PCR) 08/27/23 08/27/23 08/27/23 04:03 04:03 05:11 WBC 14.3 H RBC Hgb Hct MCV MCHC Neutrophils # 12.0 H Lymphocytes # ABG pH ABG pCO2 60 H ABG pO2 79 L ABG HCO3 40 H* ABG Total CO2 41 H ABG O2 Saturation VBG pH VBG pCO2 VBG HCO3 Sodium 136 L Potassium Chloride Carbon Dioxide 36 H BUN 19 H Creatinine 0.33 L BUN/Creatinine Ratio Glucose POC Glucose (mg/dL) Calcium 7.4 L Magnesium AST ALT Total Protein Albumin Urine Blood Urine Bacteria Fluid Appearance T-Suppressor Cells % CD4 [place] Absolute CD4 [place] CD4/CD8 Ratio % CD8 Suppressor HIV-1 RNA (PCR) 08/27/23 08/27/23 08/28/23 06:55 11:36 00:57 WBC RBC Hgb Hct MCV MCHC Neutrophils # Lymphocytes # ABG pH ABG pCO2 ABG pO2 ABG HCO3 ABG Total CO2 ABG O2 Saturation VBG pH VBG pCO2 VBG HCO3 Sodium Potassium Chloride Carbon Dioxide BUN Creatinine BUN/Creatinine Ratio Glucose POC Glucose (mg/dL) 60 L 115 H 64 L Calcium Magnesium AST ALT Total Protein Albumin Urine Blood Urine Bacteria Fluid Appearance T-Suppressor Cells % CD4 [place] Absolute CD4 [place] CD4/CD8 Ratio % CD8 Suppressor HIV-1 RNA (PCR) 08/28/23 08/28/23 08/28/23 04:10 04:10 04:42 WBC 12.6 H RBC 3.62 L Hgb Hct MCV MCHC Neutrophils # Lymphocytes # ABG pH 7.48 H ABG pCO2 56 H ABG pO2 ABG HCO3 41 H* ABG Total CO2 43 H ABG O2 Saturation 98.2 H VBG pH VBG pCO2 VBG HCO3 Sodium 135 L Potassium Chloride Carbon Dioxide 39 H BUN Creatinine 0.17 L BUN/Creatinine Ratio Glucose POC Glucose (mg/dL) Calcium 7.4 L Magnesium AST ALT Total Protein Albumin Urine Blood Urine Bacteria Fluid Appearance T-Suppressor Cells % CD4 [place] CD4 [place] CD4/CD8 Ratio % CD8 Suppressor HIV-1 RNA (PCR) 08/28/23 08/29/23 08/29/23 17:40 04:42 04:42 WBC 13.1 H RBC 3.62 L Hgb Hct MCV 100.5 H MCHC Neutrophils # Lymphocytes # ABG pH ABG pCO2 ABG pO2 ABG HCO3 ABG Total CO2 ABG O2 Saturation VBG pH VBG pCO2 VBG HCO3 Sodium 133 L Potassium Chloride Carbon Dioxide 38 H BUN Creatinine 0.20 L BUN/Creatinine Ratio Glucose 106 H POC Glucose (mg/dL) 114 H Calcium 7.6 L Magnesium AST ALT Total Protein Albumin Urine Blood Urine Bacteria Fluid Appearance T-Suppressor Cells % CD4 [place] CD4 [place] CD4/CD8 Ratio % CD8 Suppressor HIV-1 RNA (PCR) 08/29/23 08/29/23 08/29/23 05:00 11:09 17:46 WBC RBC Hgb Hct MCV MCHC Neutrophils # Lymphocytes # ABG pH ABG pCO2 59 H ABG pO2 122 H ABG HCO3 40 H* ABG Total CO2 41 H ABG O2 Saturation 99.0 H VBG pH VBG pCO2 VBG HCO3 Sodium Potassium Chloride Carbon Dioxide BUN Creatinine BUN/Creatinine Ratio Glucose POC Glucose (mg/dL) 135 H 143 H Calcium Magnesium AST ALT Total Protein Albumin Urine Blood Urine Bacteria Fluid Appearance T-Suppressor Cells % CD4 [place] Absolute CD4 [place] CD4/CD8 Ratio % CD8 Suppressor HIV-1 RNA (PCR) 08/30/23 08/30/23 08/30/23 04:35 04:35 04:45 WBC 12.9 H RBC 3.61 L Hgb Hct MCV MCHC Neutrophils # Lymphocytes # ABG pH 7.47 H ABG pCO2 50 H ABG pO2 ABG HCO3 37 H ABG Total CO2 38 H ABG O2 Saturation 98.5 H VBG pH VBG pCO2 VBG HCO3 Sodium 131 L Potassium Chloride 97 L Carbon Dioxide 37 H BUN Creatinine 0.18 L BUN/Creatinine Ratio Glucose POC Glucose (mg/dL) Calcium 7.8 L Magnesium AST ALT Total Protein Albumin Urine Blood Urine Bacteria Fluid Appearance T-Suppressor Cells % CD4 [place] Absolute CD4 [place] CD4/CD8 Ratio % CD8 Suppressor HIV-1 RNA (PCR) 08/30/23 08/30/23 08/30/23 05:13 05:38 11:26 WBC RBC Hgb Hct MCV MCHC Neutrophils # Lymphocytes # ABG pH ABG pCO2 ABG pO2 ABG HCO3 ABG Total CO2 ABG O2 Saturation VBG pH VBG pCO2 VBG HCO3 Sodium Potassium Chloride Carbon Dioxide BUN Creatinine BUN/Creatinine Ratio Glucose POC Glucose (mg/dL) 68 L 122 H 125 H Calcium Magnesium AST ALT Total Protein Albumin Urine Blood Urine Bacteria Fluid Appearance T-Suppressor Cells % CD4 [place] Absolute CD4 [place] CD4/CD8 Ratio % CD8 Suppressor HIV-1 RNA (PCR) 08/30/23 08/31/23 08/31/23 16:57 00:03 00:57 WBC RBC Hgb Hct MCV MCHC Neutrophils # Lymphocytes # ABG pH ABG pCO2 ABG pO2 ABG HCO3 ABG Total CO2 ABG O2 Saturation VBG pH VBG pCO2 VBG HCO3 Sodium Potassium Chloride Carbon Dioxide BUN Creatinine BUN/Creatinine Ratio Glucose POC Glucose (mg/dL) 137 H 60 L 41 L Calcium Magnesium AST ALT Total Protein Albumin Urine Blood Urine Bacteria Fluid Appearance T-Suppressor Cells % CD4 [place] Absolute CD4 [place] CD4/CD8 Ratio % CD8 Suppressor HIV-1 RNA (PCR) 08/31/23 08/31/23 08/31/23 01:00 04:21 04:21 WBC 13.5 H RBC 3.42 L Hgb 10.9 L Hct 33.9 L MCV MCHC Neutrophils # Lymphocytes # ABG pH ABG pCO2 ABG pO2 ABG HCO3 ABG Total CO2 ABG O2 Saturation VBG pH VBG pCO2 VBG HCO3 Sodium 133 L Potassium 3.4 L Chloride Carbon Dioxide 34 H BUN Creatinine 0.17 L BUN/Creatinine Ratio Glucose POC Glucose (mg/dL) 131 H Calcium 7.7 L Magnesium AST ALT Total Protein Albumin Urine Blood Urine Bacteria Fluid Appearance T-Suppressor Cells % CD4 [place] Absolute CD4 [place] CD4/CD8 Ratio % CD8 Suppressor HIV-1 RNA (PCR) 08/31/23 08/31/23 08/31/23 06:04 11:57 18:01 WBC RBC Hgb Hct MCV MCHC Neutrophils # Lymphocytes # ABG pH 7.49 H ABG pCO2 ABG pO2 112 H ABG HCO3 34 H ABG Total CO2 36 H ABG O2 Saturation 98.9 H VBG pH VBG pCO2 VBG HCO3 Sodium Potassium Chloride Carbon Dioxide BUN Creatinine BUN/Creatinine Ratio Glucose POC Glucose (mg/dL) 141 H 127 H Calcium Magnesium AST ALT Total Protein Albumin Urine Blood Urine Bacteria Fluid Appearance T-Suppressor Cells % CD4 [place] Absolute CD4 [place] CD4/CD8 Ratio % CD8 Suppressor HIV-1 RNA (PCR) 09/01/23 09/01/23 09/01/23 05:39 05:47 05:47 WBC RBC 3.25 L Hgb 10.5 L Hct 31.7 L MCV MCHC Neutrophils # Lymphocytes # ABG pH 7.48 H ABG pCO2 ABG pO2 118 H ABG HCO3 34 H ABG Total CO2 35 H ABG O2 Saturation 98.9 H VBG pH VBG pCO2 VBG HCO3 Sodium 132 L Potassium Chloride Carbon Dioxide 32 H BUN Creatinine 0.18 L BUN/Creatinine Ratio Glucose POC Glucose (mg/dL) Calcium 8.2 L Magnesium AST ALT Total Protein Albumin Urine Blood Urine Bacteria Fluid Appearance T-Suppressor Cells % CD4 [place] Absolute CD4 [place] CD4/CD8 Ratio % CD8 Suppressor HIV-1 RNA (PCR) 09/01/23 09/01/23 09/02/23 12:19 17:50 05:00 WBC RBC 3.31 L Hgb 10.7 L Hct 32.3 L MCV MCHC Neutrophils # Lymphocytes # ABG pH ABG pCO2 ABG pO2 ABG HCO3 ABG Total CO2 ABG O2 Saturation VBG pH VBG pCO2 VBG HCO3 Sodium Potassium Chloride Carbon Dioxide BUN Creatinine BUN/Creatinine Ratio Glucose POC Glucose (mg/dL) 147 H 147 H Calcium Magnesium AST ALT Total Protein Albumin Urine Blood Urine Bacteria Fluid Appearance T-Suppressor Cells % CD4 [place] Absolute CD4 [place] CD4/CD8 Ratio % CD8 Suppressor HIV-1 RNA (PCR) 09/02/23 09/02/23 09/02/23 05:20 06:08 06:10 WBC RBC Hgb Hct MCV MCHC Neutrophils # Lymphocytes # ABG pH 7.46 H ABG pCO2 48 H ABG pO2 131 H ABG HCO3 34 H ABG Total CO2 36 H ABG O2 Saturation 99.1 H VBG pH VBG pCO2 VBG HCO3 Sodium Potassium Chloride Carbon Dioxide BUN Creatinine BUN/Creatinine Ratio Glucose POC Glucose (mg/dL) 111 H Calcium Magnesium AST ALT Total Protein Albumin Urine Blood Urine Bacteria Fluid Appearance T-Suppressor Cells % CD4 [place] Absolute CD4 [place] CD4/CD8 Ratio % CD8 Suppressor HIV-1 RNA (PCR) DETECTED A 09/02/23 09/02/23 09/02/23 06:51 11:57 18:41 WBC RBC Hgb Hct MCV MCHC Neutrophils # Lymphocytes # ABG pH ABG pCO2 ABG pO2 ABG HCO3 ABG Total CO2 ABG O2 Saturation VBG pH VBG pCO2 VBG HCO3 Sodium 133 L Potassium Chloride Carbon Dioxide 33 H BUN 19 H Creatinine 0.20 L BUN/Creatinine Ratio Glucose 119 H POC Glucose (mg/dL) 133 H 130 H Calcium 8.0 L Magnesium AST ALT Total Protein Albumin Urine Blood Urine Bacteria Fluid Appearance T-Suppressor Cells % CD4 [place] Absolute CD4 [place] CD4/CD8 Ratio % CD8 Suppressor HIV-1 RNA (PCR) 09/03/23 09/03/23 09/03/23 05:50 06:00 06:00 WBC RBC 3.02 L Hgb 9.6 L Hct 29.5 L MCV MCHC Neutrophils # Lymphocytes # ABG pH 7.48 H ABG pCO2 46 H ABG pO2 133 H ABG HCO3 34 H ABG Total CO2 35 H ABG O2 Saturation 98.9 H VBG pH VBG pCO2 VBG HCO3 Sodium 133 L Potassium Chloride Carbon Dioxide 34 H BUN 22 H Creatinine 0.15 L BUN/Creatinine Ratio Glucose 102 H POC Glucose (mg/dL) Calcium 8.3 L Magnesium AST ALT Total Protein Albumin Urine Blood Urine Bacteria Fluid Appearance T-Suppressor Cells % CD4 [place] Absolute CD4 [place] CD4/CD8 Ratio % CD8 Suppressor HIV-1 RNA (PCR) 09/03/23 09/03/23 09/04/23 11:11 17:24 05:27 WBC RBC 2.98 L Hgb 9.9 L Hct 29.6 L MCV MCHC Neutrophils # Lymphocytes # ABG pH ABG pCO2 ABG pO2 ABG HCO3 ABG Total CO2 ABG O2 Saturation VBG pH VBG pCO2 VBG HCO3 Sodium Potassium Chloride Carbon Dioxide BUN Creatinine BUN/Creatinine Ratio Glucose POC Glucose (mg/dL) 169 H 129 H Calcium Magnesium AST ALT Total Protein Albumin Urine Blood Urine Bacteria Fluid Appearance T-Suppressor Cells % CD4 [place] Absolute CD4 [place] CD4/CD8 Ratio % CD8 Suppressor HIV-1 RNA (PCR) 09/04/23 09/04/23 09/04/23 05:35 05:56 11:57 WBC RBC Hgb Hct MCV MCHC Neutrophils # Lymphocytes # ABG pH ABG pCO2 ABG pO2 ABG HCO3 ABG Total CO2 ABG O2 Saturation VBG pH VBG pCO2 VBG HCO3 Sodium 133 L Potassium 3.3 L Chloride Carbon Dioxide 34 H BUN 18 H Creatinine <0.15 L BUN/Creatinine Ratio Glucose 104 H POC Glucose (mg/dL) 132 H 155 H Calcium Magnesium AST ALT Total Protein Albumin Urine Blood Urine Bacteria Fluid Appearance T-Suppressor Cells % CD4 [place] Absolute CD4 [place] CD4/CD8 Ratio % CD8 Suppressor HIV-1 RNA (PCR) 09/04/23 09/04/23 09/05/23 14:20 17:44 05:38 WBC RBC 3.02 L Hgb 9.7 L Hct 30.0 L MCV MCHC Neutrophils # Lymphocytes # ABG pH ABG pCO2 ABG pO2 ABG HCO3 ABG Total CO2 ABG O2 Saturation VBG pH VBG pCO2 VBG HCO3 Sodium 133 L Potassium Chloride 97 L Carbon Dioxide 34 H BUN 19 H Creatinine <0.15 L BUN/Creatinine Ratio Glucose 142 H POC Glucose (mg/dL) 137 H Calcium Magnesium AST ALT Total Protein Albumin Urine Blood Urine Bacteria Fluid Appearance T-Suppressor Cells % CD4 [place] Absolute CD4 [place] CD4/CD8 Ratio % CD8 Suppressor HIV-1 RNA (PCR) 09/05/23 09/05/23 09/05/23 05:38 11:51 12:37 WBC RBC Hgb Hct MCV MCHC Neutrophils # Lymphocytes # ABG pH ABG pCO2 ABG pO2 ABG HCO3 ABG Total CO2 ABG O2 Saturation VBG pH VBG pCO2 VBG HCO3 Sodium 131 L Potassium Chloride 97 L Carbon Dioxide 32 H BUN 21 H Creatinine 0.17 L BUN/Creatinine Ratio Glucose 102 H POC Glucose (mg/dL) 152 H Calcium Magnesium AST ALT Total Protein Albumin Urine Blood Trace H Urine Bacteria Rare H Fluid Appearance T-Suppressor Cells % CD4 [place] Absolute CD4 [place] CD4/CD8 Ratio % CD8 Suppressor HIV-1 RNA (PCR) 09/05/23 09/05/23 09/06/23 18:53 23:43 05:38 WBC RBC Hgb Hct MCV MCHC Neutrophils # Lymphocytes # ABG pH ABG pCO2 ABG pO2 ABG HCO3 ABG Total CO2 ABG O2 Saturation VBG pH VBG pCO2 VBG HCO3 Sodium Potassium Chloride Carbon Dioxide BUN Creatinine BUN/Creatinine Ratio Glucose POC Glucose (mg/dL) 130 H 111 H 123 H Calcium Magnesium AST ALT Total Protein Albumin Urine Blood Urine Bacteria Fluid Appearance T-Suppressor Cells % CD4 [place] Absolute CD4 [place] CD4/CD8 Ratio % CD8 Suppressor HIV-1 RNA (PCR) 09/06/23 09/06/23 09/06/23 06:10 06:10 11:51 WBC RBC 2.93 L Hgb 9.5 L Hct 29.1 L MCV MCHC Neutrophils # Lymphocytes # ABG pH ABG pCO2 ABG pO2 ABG HCO3 ABG Total CO2 ABG O2 Saturation VBG pH VBG pCO2 VBG HCO3 Sodium 133 L Potassium 3.4 L Chloride Carbon Dioxide 32 H BUN 18 H Creatinine 0.18 L BUN/Creatinine Ratio Glucose 125 H POC Glucose (mg/dL) 161 H Calcium Magnesium AST ALT Total Protein Albumin Urine Blood Urine Bacteria Fluid Appearance T-Suppressor Cells % CD4 [place] Absolute CD4 [place] CD4/CD8 Ratio % CD8 Suppressor HIV-1 RNA (PCR) 09/06/23 09/07/23 09/07/23 17:59 05:10 05:10 WBC RBC 2.89 L Hgb 9.7 L Hct 28.6 L MCV MCHC Neutrophils # Lymphocytes # ABG pH ABG pCO2 ABG pO2 ABG HCO3 ABG Total CO2 ABG O2 Saturation VBG pH VBG pCO2 VBG HCO3 Sodium 131 L Potassium Chloride Carbon Dioxide BUN Creatinine 0.15 L BUN/Creatinine Ratio Glucose 116 H POC Glucose (mg/dL) 121 H Calcium Magnesium AST ALT Total Protein Albumin Urine Blood Urine Bacteria Fluid Appearance T-Suppressor Cells % CD4 [place] Absolute CD4 [place] CD4/CD8 Ratio % CD8 Suppressor HIV-1 RNA (PCR) 09/07/23 09/07/23 09/07/23 06:29 11:50 17:56 WBC RBC Hgb Hct MCV MCHC Neutrophils # Lymphocytes # ABG pH ABG pCO2 ABG pO2 ABG HCO3 ABG Total CO2 ABG O2 Saturation VBG pH VBG pCO2 VBG HCO3 Sodium Potassium Chloride Carbon Dioxide BUN Creatinine BUN/Creatinine Ratio Glucose POC Glucose (mg/dL) 123 H 142 H 138 H Calcium Magnesium AST ALT Total Protein Albumin Urine Blood Urine Bacteria Fluid Appearance T-Suppressor Cells % CD4 [place] Absolute CD4 [place] CD4/CD8 Ratio % CD8 Suppressor HIV-1 RNA (PCR) 09/08/23 09/08/23 09/08/23 04:19 04:27 11:37 WBC RBC 3.16 L Hgb 10.0 L Hct 31.5 L MCV MCHC Neutrophils # Lymphocytes # ABG pH ABG pCO2 ABG pO2 ABG HCO3 ABG Total CO2 ABG O2 Saturation VBG pH VBG pCO2 VBG HCO3 Sodium 130 L Potassium Chloride Carbon Dioxide BUN Creatinine 0.16 L BUN/Creatinine Ratio Glucose POC Glucose (mg/dL) 123 H Calcium Magnesium AST ALT Total Protein Albumin Urine Blood Urine Bacteria Fluid Appearance T-Suppressor Cells % CD4 [place] Absolute CD4 [place] CD4/CD8 Ratio % CD8 Suppressor HIV-1 RNA (PCR) Assessment and Plan Assessment: Is a 52-year-old woman with history of HIV, COPD who presented to the emergency department 08/10/2023 for respiratory distress. As a result patient was intubated on a ventilator on 08/13/2023 and then eventually got a tracheostomy a nd event 2. She was on Nimbex during the initial phase of her hospital visit. Patient is having generalized weakness. Generalized weakness seems more critical illness polyneuropathy versus myopathy. CT of the head on 08/13/2023 reveals focal area of hypoattenuation involving the inferior right temporal lobe of indeterminate age. That would not explain the patient's symptoms above. I reviewed the CT and I had difficulty appreciating any large hypoattenuation. Acute hypoxic respiratory failure secondary due to acute exacerbation of COPD requiring mechanical ventilation currently she has tracheostomy Mild transamnitis Advance COPD Left upper lobe 9 mm nodule on the CT chest AIDS with a CD4 less than 200 Abdominal distention and possibly fecal impaction Plan: I will get a repeat CT of the head. In addition I will get a CT of the cervical spine Ordered CK level, TSH, vitamin B12, folate, ammonia and Hemoglobin A1c. Commend EMG with nerve conduction study as an outpatient I would recommend MRI of the brain to assess whether her lesion reported on the CT is truly an old stroke versus a lesion from her immunosuppression leading to LELA virus possibly and leading into PML. PT and OT are on board and patient needs to work with therapy. Will defer the rest of the medical management to primary and other specialists The plan discussed with the patient and the ICU nurse Thank you for the consultation. Dr. Narayanan will resume neurology service tomorrow A.M. Time with Patient: Greater than 30
--- NOTE | 2023-09-08 14:44 | P.PN ---
Subjective Progress Note Date: 09/08/23 52-year-old female presenting to the emergency department with difficulty breathing. Symptoms have been present for the past 3 days. Occasional cough, nonproductive. No fever or recent upper respiratory infection. No calf pain or leg swelling. Patient does have history of similar symptoms previously associated with COPD. Patient is a former smoker, patient has more than 40 pack years history of smoking. Sodium levels at 126, potassium is 4.3, bicarb is 29, BUN is at 8 with a creatinine of 0.39. WBC count of 4.7 with a hemoglobin of 14.5 and a platelet count of 241. The viral screen came back negative. The chest x-ray shows no acute abnormalities. There is hyperinflation consistent with COPD. Scattered senescent parenchymal changes are seen bilaterally. Findings are essentially consistent with COPD. She was briefly placed on BiPAP and the patient is currently on oxygen at 6 L/min nasal cannula with a pulse ox of 98%. She is quite short of breath even at rest. Not using accessory muscles of breathing. She was started on bronchodilators with DuoNeb updrafts. She is also on IV Solu-Medrol. She was started on Zithromax as an empiric antibiotic coverage and she is also normal saline at rate of 75 cc an hour. 09/08/2023 Patient is seen and evaluated in room at bedside; patient presented to hospital with increasing shortness of breath which is li gerard multifactorial in this patient who did have a history of COPD and likely COPD is a patient with a tracheobronchitis underlying pneumonia less likely but not entirely excluded -patient did have a CT angiogram of the chest that was negative for PE did not show any evidence of pneumonia or interstitial infiltrate -patient did have a penicillin allergy that will limit the number of antibiotics safe to use -patient to continue with Biktarvy for HIV, Bactrim DS for PCP prophylaxis, the patient HIV viral load is undetected -patient sputum is growing Rim[place] which is likely colonization however the patient did have worsening of the white count could be component of oropharyngeal candidiasis, the patient white count has normalized and the patient received adequate IV Eraxis for underlying oropharyngeal candidiasis required discontinue Eraxis and monitor the patient closely off antifungal th erapy Objective - Vital Signs Vital signs: Vital Signs Temp 98.5 F 09/08/23 08:00 Pulse 112 H 05/10/24 09:00 Resp 16 09/08/23 09:00 BP 126/86 09/08/23 09:00 Pulse Ox 100 09/08/23 09:00 FiO2 35 09/08/23 08:07 Intake & Output 09/07/23 09/08/23 09/08/23 18:59 06:59 18:59 Intake Total 1166 880 140 Output Total 930 685 70 Balance 236 195 70 Weight 58 kg 58.7 kg Intake: IV 440 260 140 Anidulafungin 100 mg In 100 Sodium Chloride 0.9% 100 ml @ 84 mls/hr IVPB DAILY @1600 [facility] Rx#:[id number] Potassium Chloride 10 meq 100 In Water For Injection 1 100ml.bag @ 100 mls/hr IVPB Q1H [facility] Rx#: [id number] Potassium Chloride 10 meq 100 In Water For Injection 1 100ml.bag @ 100 mls/hr IVPB Q1H [facility] Rx#: [id number] Sodium Chloride 0.9% 1, 240 260 40 000 ml @ 20 mls/hr IV . Q24H [facility] Rx#:[id number] Tube Feeding 636 530 Other 90 90 Output: Urine 930 685 70 Other: Voiding Method Indwelling Catheter Indwelling Catheter Indwelling Catheter ABP, PAP, CO, CI - Last Documented Arterial Blood Pressure 109/53 - Exam General: Revealed 52-year-old female, awake, in no distress. Presently on pressure support mode of mechanical ventilation with pressure support of 14 Skin: Skin is warm and dry and no rashes or lesions are noted. Eye: Pupils are equal, round and reactive to light, extra-ocular movements are intact Ears, nose, mouth and throat: There are moist mucous membranes and no oral lesions. Neck: The neck is supple, there is no tenderness or JVD. Tracheostomy is intact. Cardiovascular: Normal S1-S2, no S3 gallop. No murmur. Respiratory: Good breath sound bilaterally no rhonchi no wheezes Gastrointestinal: Abdomen is slightly distended tender, negative bowel sounds. Musculoskeletal: Continues to have profound muscle weakness bilaterally. Neurological: Alert and oriented x 3, generally weak Psychiatric: Normal mood, affect and normal mental status examination. - Labs CBC & Chem 7: 09/08/23 04:27 09/08/23 04:19 Labs: Abnormal Lab Results - Last 24 Hours (Table) 09/07/23 09/07/23 09/08/23 Range/Units 11:50 17:56 04:19 RBC (3.80-5.40) m/uL Hgb (11.4-16.0) gm/dL Hct (34.0-46.0) % Sodium 130 L (137-145) mmol/L Creatinine 0.16 L (0.52-1.04) mg/dL POC Glucose (mg/dL) 142 H 138 H (70-110) mg/dL 09/08/23 Range/Units 04:27 RBC 3.16 L (3.80-5.40) m/uL Hgb 10.0 L (11.4-16.0) gm/dL Hct 31.5 L (34.0-46.0) % Sodium (137-145) mmol/L Creatinine (0.52-1.04) mg/dL POC Glucose (mg/dL) (70-110) mg/dL Assessment and Plan Assessment: 1. Acute hypoxic respiratory failure; related to COPD exacerbation --We will continue with O2 at 6 L per nasal cannula keeping O2 saturation greater than 90% -Continue with Solu-Medrol nebulizer treatments -- Empiric antibiotic coverage with IV Rocephin 2. History of smoking cessation; counseling done on need for quitting smoking 3. HIV/AIDS; patient is currently on Biktarvy; viral load and CD4 counts have been addressed VT prophylaxis; SCDs CODE STATUS; full code
--- NOTE | 2023-09-08 14:57 | CT ---
EXAMINATION TYPE: CT brain cspine wo con DATE OF EXAM: 09/08/2023 COMPARISON: Head CT dated 08/13/2023 HISTORY: ?hypoattenuation right temporal on 07/[address] DLP: 1247.8 mGycm Automated exposure control for dose reduction was used. TECHNIQUE: CT scan of the head and cervical spine are performed without contrast. Findings: Head CT: Ventricles, basal cisterns and sulci over convexities within normal limits and there is no mass, mass effect or shift of midline structures. No abnormal density is seen throughout the brain parenchyma and there is no acute intra or extra-axia l hemorrhage. No decreased density is seen within the right temporal lobe on the current study. Posterior fossa including the brainstem, fourth ventricle and cerebellar pontine angles are grossly n ormal. The intraorbital contents appear normal and symmetric. There is mild chronic inflammatory change in t he right maxillary sinus. Mastoid air cells are well aerated. CT cervical spine: Craniovertebral junction relationships and prevertebral soft tissues are normal. The cervical vertebral segments are normal in height and alignment and there is no fracture subluxati on. There is mild degenerative disc disease with mild disc space narrowing and spondylosis at the C5-6 an d C6-7 levels. There is moderate facet arthropathy in the upper cervical spine on the right. There is mild degenerat ion of the uncovertebral joints at C5-6 and C6-7. There is no bony encroachment of the cervical canal. There is mild bony neural foraminal encroachment at C2-3 on the right. The paraspinal soft tissues unremarkable. IMPRESSION: 1. Head CT: No acute bleed or mass effect. 2. CT cervical spine: No acute trauma. Degenerative changes as described above.
[2023-09-08 15:35] LABS: Creatine Kinase 59 U/L (30-135)
--- NOTE | 2023-09-08 16:00 | P.PN ---
Subjective Progress Note Date: 09/08/23 Principal diagnosis: Reason for follow-up is HIV and possible pneumonia Patient is a 52-year-old female with a past medical history significant for HIV on Biktarvy, also with a history of COPD presenting to the hospital for evaluation of increasing shortness of breath patient did have worsening respiratory status got intubated, patient did have a CT angiogram of the chest that was negative for PE did shows a lung nodule did not mention any infiltrate or consolidation.Patient is status post tracheostomy completed on 08/23/2023 On today's evaluation that is 09/08/2023,the patient remains to be afebrile, patient is on the vent through the trach FiO2 35% patient is awake alert and also some simple question no chest pain no vomiting or diarrhea has been reported by the nursing staff. Patient white count is 4.9, creatinine 0.16 Objective - Vital Signs Vital signs: Vital Signs Temp 98.5 F 09/08/23 08:00 Pulse 106 H 09/08/23 12:00 Resp 28 H 09/08/23 12:00 BP 121/87 09/08/23 12:00 Pulse Ox 98 09/08/23 12:00 FiO2 35 09/08/23 12:19 Intake & Output 09/07/23 09/08/23 09/08/23 18:59 06:59 18:59 Intake Total 1166 880 260 Output Total 930 685 150 Balance 236 195 110 Weight 58 kg 58.7 kg Intake: IV 440 260 200 Anidulafungin 100 mg In 100 Sodium Chloride 0.9% 100 ml @ 84 mls/hr IVPB DAILY @1600 [facility] Rx#:[id number] Potassium Chloride 10 meq 100 In Water For Injection 1 100ml.bag @ 100 mls/hr IVPB Q1H [facility] Rx#: [id number] Potassium Chloride 10 meq 100 In Water For Injection 1 100ml.bag @ 100 mls/hr IVPB Q1H [facility] Rx#: [id number] Sodium Chloride 0.9% 1, 240 260 100 000 ml @ 20 mls/hr IV . Q24H [facility] Rx#:[id number] Oral 60 Tube Feeding 636 530 Other 90 90 Output: Urine 930 685 150 Other: Voiding Method Indwelling Catheter Indwelling Catheter Indwelling Catheter ABP, PAP, CO, CI - Last Documented Arterial Blood Pressure 109/53 - Exam GENERAL DESCRIPTION: Middle-aged female intubated on the vent through the trach RESPIRATORY SYSTEM: Unlabored breathing , decreased breath sounds at bases HEART: S1 S2 regular rate and rhythm , ABDOMEN: Soft , no tenderness EXTREMITIES: No edema feet - Labs CBC & Chem 7: 09/08/23 04:27 09/08/23 04:19 Labs: Abnormal Lab Results - Last 24 Hours (Table) 09/07/23 09/08/23 09/08/23 Range/Units 17:56 04:19 04:27 RBC 3.16 L (3.80-5.40) m/uL Hgb 10.0 L (11.4-16.0) gm/dL Hct 31.5 L (34.0-46.0) % Sodium 130 L (137-145) mmol/L Creatinine 0.16 L (0.52-1.04) mg/dL POC Glucose (mg/dL) 138 H (70-110) mg/dL 09/08/23 Range/Units 11:37 RBC (3.80-5.40) m/uL Hgb (11.4-16.0) gm/dL Hct (34.0-46.0) % Sodium (137-145) mmol/L Creatinine (0.52-1.04) mg/dL POC Glucose (mg/dL) 123 H (70-110) mg/dL Assessment and Plan (1) Acute respiratory failure Current Visit: Yes Status: Acute Code(s): J96.00 - ACUTE RESPIRATORY FAILURE, UNSP W HYPOXIA OR HYPERCAPNIA SNOMED Code(s): 38498976 (2) HIV disease Current Visit: No Status: Acute Code(s): B20 - HUMAN IMMUNODEFICIENCY VIRUS [HIV] DISEASE SNOMED Code(s): 55017708 Plan: 1patient presented to hospital with increasing shortness of breath which is likely multifactorial in this patient who did have a history of COPD and likely COPD is a patient with a tracheobronchitis underlying pneumonia less likely but not entirely excluded 2-patient did have a CT angiogram of the chest that was negative for PE did not show any evidence of pneumonia or interstitial infiltrate 3-patient did have a penicillin allergy that will limit the number of antib iotics safe to use 4-patient to continue with Biktarvy for HIV, Bactrim DS for PCP prophylaxis, the patient HIV viral load is undetected 5-patient sputum is growing Rimma which is likely colonization however the patient did have worsening of the white count could be component of oropharyngeal candidiasis, the patient white count has normalized and the patient received adequate IV Eraxis for underlying oropharyngeal candidiasis and Eraxis has been discontinued will monitor closely Dictation was produced using [employer] dictation software. please excuse any grammatical, word or spelling errors. Time with Patient: Less than 30
[2023-09-08 18:07] LABS: Glucose,Whole Blood 120 mg/dL (70-110)
[2023-09-09 02:10] LABS: Glucose,Whole Blood 79 mg/dL (70-110)
[2023-09-09 04:29] LABS: Basophils % (A) 1 %; Eosinophils # (A) 0.2 k/uL (0-0.7); Eosinophils % (A) 2 %; HCT 32.7 % (34.0-46.0); HGB 10.4 gm/dL (11.4-16.0); Lymphocytes # (A) 1.8 k/uL (1.0-4.8); Lymphocytes % (A) 26 %; MCH 31.3 pg (25.0-35.0); MCHC 31.7 g/dL (31.0-37.0); MCV 98.7 fL (80.0-100.0); Mean Platelet Volume 7.5; Monocytes # (A) 0.5 k/uL (0-1.0); Monocytes % (A) 7 %; Neutrophils % (A) 61 %; Platelet Count 370 k/uL (150-450); RBC 3.31 m/uL (3.80-5.40); RDW 13.7 % (11.5-15.5); WBC 6.6 k/uL (3.8-10.6)
[2023-09-09 04:53] LABS: African American GFR (CKD) >90 (>60 ml/min/1.73 sqM); Anion Gap 5 mmol/L; Blood Urea Nitrogen 10 mg/dL (7-17); Calcium 8.4 mg/dL (8.4-10.2); Carbon Dioxide 27 mmol/L (22-30); Chloride 96 mmol/L (98-107); Glucose 81 mg/dL (74-99); Non-African American GFR(CKD) >90 (>60 ml/min/1.73 sqM); Potassium 3.5 mmol/L (3.5-5.1); Sodium 128 mmol/L (137-145)
[2023-09-09 05:29] LABS: Glucose,Whole Blood 82 mg/dL (70-110)
[2023-09-09] MEDS: POTASSIUM CHLORIDE 20 MEQ in WATER FOR INJECTION 1 100ML.BAG IVPB SCH (05:41)
--- NOTE | 2023-09-09 10:11 | P.PN ---
Subjective Progress Note Date: 09/09/23 Principal diagnosis: Acute hypoxic respiratory failure secondary to acute exacerbation of COPD This is a 52-year-old female patient with known history of COPD. The patient is maintained on Trelegy Ellipta on outpatient basis and she also has a DuoNeb nebulized treatment to be used on an as-needed basis. She is known to have HIV and currently she is on Biktarvy followed up by Dr. Salguero on outpatient basis regarding her HIV. She is not aware of her recent CD4 counts and viral loads. She has been having issues with increased respiratory distress and [employer] exacerbation for the past 2 to 3 weeks. She received several rounds of antibiotics and steroids for our office for [employer] exacerbation she did not encounter any significant improvement. She ultimately came into the hospital for increased shortness of breath. She was briefly placed on BiPAP and the patient is currently on oxygen at 6 L/min nasal cannula with a pulse ox of 98%. She is quite short of breath even at rest. Not using accessory muscles of breathing. Sodium levels at 126, potassium is 4.3, bicarb is 29, BUN is at 8 with a creatinine of 0.39. WBC count of 4.7 with a hemoglobin of 14.5 and a platelet count of 241. The viral screen came back negative. The chest x-ray shows no acute abnormalities. There is hyperinflation consistent with COPD. Scattered senescent parenchymal changes are seen bilaterally. Findings are essentially consistent with COPD. She was started on bronchodilators with D uoNeb updrafts. She is also on IV Solu-Medrol. She was started on Zithromax as an empiric antibiotic coverage and she is also normal saline at rate of 75 cc an hour. No frequent hospital admissions for COPD exacerbation. Her last admission to the hospital was back in 2021 essentially same presentation. She has been trying to quit smoking and she has not smoked for the past several months. She has been smoking since the age of 11 and she carries more than [id number] smoking history. On 08/11/2023, the patient is being seen for a follow-up. The patient was hospitalized for an acute Exacerbation the patient is feeling better on today's evaluation this bronchospastic and wheezy. She is known to have HIV. Viral constant CD4 counts are still pending for now. She is currently on Zithromax, IV Solu-Medrol, DuoNeb nebulized treatments [id number]. She has failed outpatient treatment for that reason the patient was hospitalized. No fever. No altered mentation. No other new complaints otherwise for now. Oxygenation is stable on 3 L O2 nasal cannula with a pulse ox of 98%. On today's evaluation of 08/12/2023, the patient reports limited improvement since yesterday. Still bronchospastic and wheezy and continues to be short of breath. Maintained on Symbicort and DuoNeb updrafts and maintained on IV Solu- Medrol 60 mg every 6 hours. She remains on empiric antibiotic coverage with IV Zithromax. No nausea vomiting or diarrhea. BUN is at 19 with a creatinine of 0.5 and a sodium levels at 138. No other significant events otherwise for now. The patient has a impaired CD4 count of 81. As such, the patient is high immunosuppressed and she may be potentially at risk of opportunistic infection. Patient continue antiretroviral treatment. Obtain a follow-up chest x-ray tomorrow. On 08/13/2023, the patient is quite lethargic on a BiPAP. Events from yesterday was noted. The patient became progressively more short of breath. She became restless, anxious, along with increased agitation and respiratory distress. The patient accordingly was placed on a BiPAP at a pressure of 12 over 5 cm of water and currently she is on #2 of 60%. She is generating a tidal volume of around about 400 with a minute ventilation of 7.4. Respirate is currently at 18. She is actively bronchospastic and wheezy. Blood gases that was done before the BiPAP utilization showed a pH of 7.24 with a pCO2 of 98 and pO2 of 69. Rest of the labs from today are still pending. A repeat chest x-ray was done this morning and it shows no evidence of any acute cardiopulmonary process. The patient remains on bronchodilators. The patient remains on IV Solu-Medrol 60 mg every 6 hours. As mentioned earlier, her CD4 count was low at 81. Nevertheless, no indication for any opportunistic infections at this point in time. Her temperature is low and the patient is afebrile and hemodynamically stable. She did receive Ativan 1 mg and she seems to be much more comfortable and synchronous with the BiPAP treatment. Will transfer the patient to the intensive care unit. Will repeat her blood gas. Use Precedex if needed. Patient was placed today on 08/14/2023, patient was admitted few days ago, however yesterday patient was intubated and required mechanical ventilation. Patient is now on assist-control rate of 16 tidal volume 350 FiO2 45% and PEEP of 5 ABG on 40% and rate of 16 showed a pO2 of 59 pCO2 51 pH of 7.47 hence I increased the FiO2 to 45% and cut down the rate to 14. Patient will be allowed to have more permissive hypercapnia patient is still requiring significant amount of sedation including propofol at 50 mcg/kg/min Nimbex at 2 mcg/kg/min she is also on Dilaudid [id number], on Lovenox enteral feeding, and IV fluid at 0.9 normal saline at 75 cc/h. Patient is not requiring any pressors or any inotropes. Patient is immunocompromise, she does have history of HIV, and she has very low CD4 count of 81. She is definitely high risk for opportunistic infections, infectious disease was consulted. Considering her gases and considering her physical exam findings, patient is not quite ready for weaning, and I have no plans to wean and extubate today. I will keep the patient presently on Nimbex, she got intubated last night, and will continue broncho dilators, continue steroids, and continue enteral feeding/nutritional support. Chest x-ray this morning showed emphysematous changes, no acute pulmonary process. CT of the brain showed a focal area of hypoattenuation involving the inferior right temporal lobe.May represent an infarct, possibly chronic. BBC count today is 9.2 hemoglobin is 12.5 basic metabolic profile is normal bicarb is 37, renal profile is normal. 09/03/2023, the patient is awake, sitting up on a recliner on a pressure support mode of mechanical ventilation at the pressure of 12 with a PEEP of 5. She is comfortable with the blood gas showed a pH of 7.48 with a pCO2 of 46 and pO2 of 133. She is profoundly weak. Trying to move her extremities and she is involved in physical therapy and passive range of motion. She is still on the same bronchodilators. Prednisone is currently down to 20 mg. She is on vital AF at the rate of 61. She is looking into [facility] into [facility]. The white cell count is at 7 with a hemoglobin of 9.6 and a platelet count of 265. BUN is 22 with a creatinine 0.15 and a sodium level is at 133 with a potassium level of 4.0. No fever. Mental status is adequate. No agitation. Fluid balance is -2.1 L over the past 24 hours. Patient was reevaluated today on 09/04/2023, remains in the ICU, remains intubated and mechanically ventilated. However the patient is tolerating pressure support quite well. She is on pressure support of 12, and I cut down her pressure support to 10. Patient has been in the ICU now for the last 25 days. She is awake, follows all simple instructions but the patient is extremely and profoundly weak. 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 Patient continues to have tracheostomy in place, and I am not planning to go to trach collar at this point yet, we will try to taper down her pressure support from 12-10. Remains on enteral feeding receiving vital AF at 51 cc/h via PEG tube, this is at goal. Labs today were reviewed she had a WBC count of 6.4 hemoglobin 9.9 basic metabolic profile is normal potassium 3.3 bein g addressed accordingly renal profile is normal. Chest x-ray showed no evidence of pneumonia, patient does have right-sided PICC line terminating in the cavoatrial junction. Tracheostomy is intact her last sputum culture was +08/12 for Rimma albicans, her bronchial washings have been positive for Rimma albicans, patient has been receiving Eraxis all along. Infectious disease will most likely discontinue Eraxis today. Patient was reevaluated today on 09/05/2023, patient is now sitting at the bedside chair, remains on pressure support mode of mechanical ventilation, today I gave the patient a trial of trach collar, patient failed within less than 10 minutes, she was noted to be short of breath, tachycardic, tachypneic, and she had to be placed back on pressure support mode of mechanical ventilation with pressure support of 12 and CPAP. Chest x-ray continues to show no evidence of active disease. CBC and basic metabolic profile today are relatively normal, bicarb is 32. Patient was denied transfer to LTAC facility, could not reach her insurance for peer to peer review. Left a message. Meantime we will continue to have daily trials and weaning trials for weaning this patient from mechanical ventilation. 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 Hence in my assessment patient will definitely benefit from transfer to an LTAC facility. They could handle the weaning process over a period of time. She needs physical therapy to get her muscle weakness improved. Patient was reevaluated today on 09/06/2023, patient has been doing fairly well over the last 24 hours with pressure support only of 14, however the patient seems to be tiring out, and seems to be developing more shortness of breath today compared to yesterday. She is getting a bit restless agitated, tachypneic and tachycardic, I tried the patient on IMV mode along with pressure support con tinue to do poorly, hence I transitioned the patient completely to assist- control mode of mechanical ventilation with assist-control rate of 12 tidal volume 400 FiO2 35% and PEEP of 5 obviously the patient is not ready to be weaned further and she is not doing great with pressure support only but she did well for 24 hours my plan today is to rest her back on assist-control mode of mechanical ventilation. Patient is getting nutritional support via PEG tube, she is on Eraxis and on Bactrim. Chest x-ray continues to show no evidence of infiltrate. WBC count today is 3.8 hemoglobin 9.5 basic metabolic profile is normal potassium is a bit low at 3.4 BUN is 18 creatinine 0.18. Patient remains on Biktarvy, patient is also on prednisone 20 mg daily. Remains on bronchodilators/DuoNeb updrafts and she is also on Pulmicort and Perforomist. Patient was earlier today on 09/07/2023, remains in the ICU, intubated and mechanically ventilated. Patient is not tolerating trials of weaning, yesterday I had to place back on. Ventilatory support, and she remains on assist-control mode of mechanical ventilation, AC rate of 12, tidal volume 400 FiO2 35% and PEEP of 5. Patient seems to be very comfortable on that mode of mechanical ventilation, however I plan today to give her a trial of pressure support again and I will likely alternate pressure support mode of mechanical ventilation with pressure support of 14 and every 2 hours alternate with assist-control mode of mechanical ventilation. WBC count is 4.8 hemoglobin 9.7 basic metabolic profile is normal renal profile is normal. Chest x-ray showed no evidence of infiltrate Patient was currently on 09/08/2023, remains in the ICU intubated and mechanically ventilated, patient has been a failure to wean, yesterday we alternated pressure support mode of mechanical ventilation with assist-control mode of mechanical ventilation throughout the day and transitioning was done every 2 hours. Patient did well today I plan to extend the pressure support mode of mechanical ventilation longer or as long as the patient tolerates. She will be on pressure support of 14. No backup IMV rate, patient seems to be tolerating that mode very well. However the patient seems to have developed some fecal impaction or constipation with distended abdomen, and dilated bowel loops, patient is receiving MiraLAX and lactulose, and her abdominal distention will be addressed with decompression from the PEG tube, and will continue MiraLAX and lactulose. On physical examination she does not have a surgical abdomen but that is a bit of a concern if the patient does not decompress. For her severe critical illness polyneuropathy and myopathy I am recommending evaluation by neurology. Patient is again very difficult to wean, and I still believe the patient would benefit and she will be better off in LTAC, chest x- ray continues to show no infiltrate. WBC count is 4.9 hemoglobin is 10.0 basic metabolic profile is normal sodium is a bit low at 130 renal profile is normal Patient was reevaluated today on 09/09/2023, remains in the ICU intubated and mechanically ventilated. Yesterday the patient had about 6 hours of pressure support mode of mechanical ventilation with pressure support of 14 and CPAP. However after 6 hours patient felt that she needed to go back on AC mode and she was placed back on AC mode has been on the AC mode for overnight. She is now on assist-control rate of 12 tidal volume 400 FiO2 55%, and PEEP of 5. WBC count today 6.6 hemoglobin 10.4, sodium is a bit low at 128 potassium 3.5 bicarb is 27 BUN is 10 creatinine 0.18. Patient continues to have some vague abdominal discomfort although she had a good bowel movement yesterday. And her abdominal findings are less concerning today, she is not as tender, and she is not as distended. Will likely resume feeding again today via PEG tube. Patient was seen by neurology yesterday for her critical illness polyneuropathy/myopathy the recommendation is mostly at this point physical therapy and Occupational Therapy and recommending EMG with nerve conduction study as an outpatient. Objective - Vital Signs Vital signs: Vital Signs Temp 98.2 F 09/09/23 04:00 Pulse 115 H 09/09/23 08:52 Resp 17 09/09/23 06:00 BP 143/93 09/09/23 06:00 Pulse Ox 99 09/09/23 06:00 FiO2 35 09/09/23 08:00 Intake & Output 09/08/23 09/09/23 09/09/23 18:59 06:59 18:59 Intake Total 380 240 Output Total 755 700 Balance -375 -460 Weight 57.1 kg Intake: IV 320 240 Potassium Chloride 10 meq 100 In Water For Injection 1 100ml.bag @ 100 mls/hr IVPB Q1H [facility] Rx#: [id number] Sodium Chloride 0.9% 1, 220 240 000 ml @ 20 mls/hr IV . Q24H [facility] Rx#:[id number] Oral 60 Output: Urine 755 700 Other: Voiding Method Indwelling Catheter Indwelling Catheter # Bowel Movements 1 ABP, PAP, CO, CI - Last Documented Arterial Blood Pressure 109/53 - Exam General: Revealed 52-year-old female, awake, in no distress. Remains on assist- control mode of mechanical ventilation this morning Skin: Skin is warm and dry and no rashes or lesions are noted. Eye: Pupils are equal, round and reactive to light, extra-ocular movements are intact Ears, nose, mouth and throat: There are moist mucous membranes and no oral lesions. Neck: The neck is supple, there is no tenderness or JVD. Tracheostomy is intact. Cardiovascular: Normal S1-S2, no S3 gallop. No murmur. Respiratory: Good breath sound bilaterally no rhonchi no wheezes Gastrointestinal: Soft, nontender, no rebound no guarding, not distended today as it was yesterday. Musculoskeletal: Continues to have profound muscle weakness bilaterally. Neurological: Alert and oriented x 3, generally weak Psychiatric: Normal mood, affect and normal mental status examination. Skin: No rashes - Labs CBC & Chem 7: 09/09/23 04:03 09/09/23 04:03 Labs: Abnormal Lab Results - Last 24 Hours (Table) 09/08/23 09/08/23 09/08/23 Range/Units 11:37 14:42 14:42 RBC (3.80-5.40) m/uL Hgb (11.4-16.0) gm/dL Hct (34.0-46.0) % Sodium (137-145) mmol/L Chloride (98-107) mmol/L Creatinine (0.52-1.04) mg/dL POC Glucose (mg/dL) 123 H (70-110) mg/dL Hemoglobin A1c 6.1 H (<=6.0) % Vitamin B12 1037.0 H (200.0-944.0) pg/mL 09/08/23 09/09/23 09/09/23 Range/Units 18:06 04:03 04:03 RBC 3.31 L (3.80-5.40) m/uL Hgb 10.4 L (11.4-16.0) gm/dL Hct 32.7 L (34.0-46.0) % Sodium 128 L (137-145) mmol/L Chloride 96 L (98-107) mmol/L Creatinine 0.18 L (0.52-1.04) mg/dL POC Glucose (mg/dL) 120 H (70-110) mg/dL Hemoglobin A1c (<=6.0) % Vitamin B12 (200.0-944.0) pg/mL Assessment and Plan Assessment: Impression: Acute hypoxic respiratory failure secondary to acute exacerbation of COPD requ iring intubation mechanical ventilation on 08/13/2023. Also requiring tracheostomy for failure to wean continues to have tracheostomy in place, patient tolerated pressure support for mechanical ventilation for about 24 hours, today patient is on assist-control mode of mechanical ventilation, and will try out to alternate this mode with pressure support mode of mechanical ventilation every 2 hours. Advanced COPD left upper lobe 9 mm nodule seen on CT of the chest, needs outpatient follow History of HIV,patient has very low CD4 count, she is prone to opportunistic infections, cultures have been negative from BAL, patient is empirically on Levaquin Status post bronchoscopy and BAL 08/12, nondiagnostic Critical illness polyneuropathy with profound weakness Rimma in the sputum/BAL, receiving Eraxis as per ID on the case Failure to wean from mechanical ventilation, still recommend patient needs to have to be transferred to LTAC facility. Abdominal distention, resolved today after she had a bowel movement yesterday. Recommendation: Patient will be placed back on pressure support mode of mechanical ventilation with a pressure support of 14, and will continue as long as is tolerated. Continue BuSpar for anxiet Continue Seroquel and Zoloft. Resume nutritional support/enteral feeding Continue MiraLAX and continue lactulose Continue bronchodilators Continue GI and DVT prophylaxis Continue steroids, taper Continue on Biktarvy for HIV treatment, continue Bactrim Patient remains critically ill Critical care time is over 30 minutes I am still recommending LTAC placement. Will continue to follow Time with Patient: Greater than 30
[2023-09-09 12:00] LABS: Glucose,Whole Blood 89 mg/dL (70-110)
--- NOTE | 2023-09-09 13:23 | P.PN ---
Subjective Progress Note Date: 09/09/23 Principal diagnosis: Reason for follow-up is HIV and possible pneumonia Patient is a 52-year-old female with a past medical history significant for HIV on Biktarvy, also with a history of COPD presenting to the hospital for evaluation of increasing shortness of breath patient did have worsening respiratory status got intubated, patient did have a CT angiogram of the chest that was negative for PE did shows a lung nodule did not mention any infiltrate or consolidation.Patient is status post tracheostomy completed on 08/23/2023 On today's evaluation that is 09/09/2023, the patient continues to be afebrile, the patient is on line through the trach with an FiO2 of 35% patient is awake alert and also some simple question denies any chest pain no worsening cough vom iting or diarrhea reported by the nursing staff. Patient white count is 6.6, creatinine 0.18 Objective - Vital Signs Vital signs: Vital Signs Temp 98.2 F 09/09/23 04:00 Pulse 115 H 09/09/23 08:52 Resp 17 09/09/23 06:00 BP 143/93 09/09/23 06:00 Pulse Ox 99 09/09/23 06:00 FiO2 35 09/09/23 07:32 Intake & Output 09/08/23 09/09/23 09/09/23 18:59 06:59 18:59 Intake Total 380 240 Output Total 755 700 Balance -375 -460 Weight 57.1 kg Intake: IV 320 240 Potassium Chloride 10 meq 100 In Water For Injection 1 100ml.bag @ 100 mls/hr IVPB Q1H [facility] Rx#: [id number] Sodium Chloride 0.9% 1, 220 240 000 ml @ 20 mls/hr IV . Q24H [facility] Rx#:[id number] Oral 60 Output: Urine 755 700 Other: Voiding Method Indwelling Catheter Indwelling Catheter # Bowel Movements 1 ABP, PAP, CO, CI - Last Documented Arterial Blood Pressure 109/53 - Exam GENERAL DESCRIPTION: Middle-aged female intubated on the vent through the trach RESPIRATORY SYSTEM: Unlabored breathing , decreased breath sounds at bases HEART: S1 S2 regular rate and rhythm , ABDOMEN: Soft , no tenderness EXTREMITIES: No edema feet - Labs CBC & Chem 7: 09/09/23 04:03 09/09/23 04:03 Labs: Abnormal Lab Results - Last 24 Hours (Table) 09/08/23 09/08/23 09/08/23 Range/Units 11:37 14:42 14:42 RBC (3.80-5.40) m/uL Hgb (11.4-16.0) gm/dL Hct (34.0-46.0) % Sodium (137-145) mmol/L Chloride (98-107) mmol/L Creatinine (0.52-1.04) mg/dL POC Glucose (mg/dL) 123 H (70-110) mg/dL Hemoglobin A1c 6.1 H (<=6.0) % Vitamin B12 1037.0 H (200.0-944.0) pg/mL 09/08/23 09/09/23 09/09/23 Range/Units 18:06 04:03 04:03 RBC 3.31 L (3.80-5.40) m/uL Hgb 10.4 L (11.4-16.0) gm/dL Hct 32.7 L (34.0-46.0) % Sodium 128 L (137-145) mmol/L Chloride 96 L (98-107) mmol/L Creatinine 0.18 L (0.52-1.04) mg/dL POC Glucose (mg/dL) 120 H (70-110) mg/dL Hemoglobin A1c (<=6.0) % Vitamin B12 (200.0-944.0) pg/mL Assessment and Plan (1) Acute respiratory failure Current Visit: Yes Status: Acute Code(s): J96.00 - ACUTE RESPIRATORY FAILURE, UNSP W HYPOXIA OR HYPERCAPNIA SNOMED Code(s): 53669751 (2) HIV disease Current Visit: No Status: Acute Code(s): B20 - HUMAN IMMUNODEFICIENCY VIRUS [HIV] DISEASE SNOMED Code(s): 99323921 Plan: 1patient presented to hospital with increasing shortness of breath which is likely multifactorial in this patient who did have a history of COPD and likely COPD is a patient with a tracheobronchitis underlying pneumonia less likely but not entirely excluded 2-patient did have a CT angiogram of the chest that was negative for PE did not show any evidence of pneumonia or interstitial infiltrate 3-patient did have a penicillin allergy that will limit the number of antibiotics safe to use 4-patient to continue with Biktarvy for HIV, Bactrim DS for PCP prophylaxis, the patient HIV viral load is undetectable 5-patient sputum is growing Rimma which is likely colonization however the patient did have worsening of the white count could be component of oropharyngeal candidiasis, the patient white count has normalized and the patient received adequate IV Eraxis for underlying oropharyngeal candidiasis we will continue to monitor the patient closely off antibiotic and antifungal Dictation was produced using [employer] dictation software. please excuse any grammatical, word or spelling errors. Time with Patient: Less than 30
--- NOTE | 2023-09-09 14:32 | P.PN ---
Subjective Progress Note Date: 09/09/23 52-year-old female presenting to the emergency department with difficulty breathing. Symptoms have been present for the past 3 days. Occasional cough, nonproductive. No fever or recent upper respiratory infection. No calf pain or leg swelling. Patient does have history of similar symptoms previously associated with COPD. Patient is a former smoker, patient has more than 40 pack years history of smoking. Sodium levels at 126, potassium is 4.3, bicarb is 29, BUN is at 8 with a creatinine of 0.39. WBC count of 4.7 with a hemoglobin of 14.5 and a platelet count of 241. The viral screen came back negative. The chest x-ray shows no acute abnormalities. There is hyperinflation consistent with COPD. Scattered senescent parenchymal changes are seen bilaterally. Findings are essentially consistent with COPD. She was briefly placed on BiPAP and the patient is currently on oxygen at 6 L/min nasal cannula with a pulse ox of 98%. She is quite short of breath even at rest. Not using accessory muscles of breathing. She was started on bronchodilators with DuoNeb updrafts. She is also on IV Solu-Medrol. She was started on Zithromax as an empiric antibiotic coverage and she is also normal saline at rate of 75 cc an hour. 09/08/2023 Patient is seen and evaluated in room at bedside; patient presented to hospital with increasing shortness of breath which is li gerard multifactorial in this patient who did have a history of COPD and likely COPD is a patient with a tracheobronchitis underlying pneumonia less likely but not entirely excluded -patient did have a CT angiogram of the chest that was negative for PE did not show any evidence of pneumonia or interstitial infiltrate -patient did have a penicillin allergy that will limit the number of antibiotics safe to use -patient to continue with Biktarvy for HIV, Bactrim DS for PCP prophylaxis, the patient HIV viral load is undetected -patient sputum is growing Rimma which is likely colonization however the patient did have worsening of the white count could be component of oropharyngeal candidiasis, the patient white count has normalized and the patient received adequate IV Eraxis for underlying oropharyngeal candidiasis required discontinue Eraxis and monitor the patient closely off antifungal th erapy 09/09/2023 Patient is seen and evaluated in room at [facility]; remains in the ICU intubated and mechanically ventilated. Vital signs review shows temperature of 98.2, pulse 115, respirations 17 and blood pressure 143/93 -- Labs are reviewed WBC count today 6.6 hemoglobin 10.4, sodium is a bit low at 128 potassium 3.5 bicarb is 27 BUN is 10 creatinine 0.18. - Will likely resume feeding again today via PEG tube. Patient was seen by neurology yesterday for her critical illness polyneuropathy/myopathy the recommendation is mostly at this point physical therapy and Occupational Therapy and recommending EMG with nerve conduction study as an outpatient. Objective - Vital Signs Vital signs: Vital Signs Temp 98.2 F 09/09/23 04:00 Pulse 115 H 09/09/23 08:52 Resp 17 09/09/23 06:00 BP 143/93 09/09/23 06:00 Pulse Ox 99 09/09/23 06:00 FiO2 35 09/09/23 07:32 Intake & Output 09/08/23 09/09/23 09/09/23 18:59 06:59 18:59 Intake Total 380 240 Output Total 755 700 Balance -375 -460 Weight 57.1 kg Intake: IV 320 240 Potassium Chloride 10 meq 100 In Water For Injection 1 100ml.bag @ 100 mls/hr IVPB Q1H [facility] Rx#: [id number] Sodium Chloride 0.9% 1, 220 240 000 ml @ 20 mls/hr IV . Q24H [facility] Rx#:[id number] Oral 60 Output: Urine 755 700 Other: Voiding Method Indwelling Catheter Indwelling Catheter # Bowel Movements 1 ABP, PAP, CO, CI - Last Documented Arterial Blood Pressure 109/53 - Exam General: Revealed 52-year-old female, awake, in no distress. Presently on pressure support mode of mechanical ventilation with pressure support of 14 Skin: Skin is warm and dry and no rashes or lesions are noted. Eye: Pupils are equal, round and reactive to light, extra-ocular movements are intact Ears, nose, mouth and throat: There are moist mucous membranes and no oral lesions. Neck: The neck is supple, there is no tenderness or JVD. Tracheostomy is intact. Cardiovascular: Normal S1-S2, no S3 gallop. No murmur. Respiratory: Good breath sound bilaterally no rhonchi no wheezes Gastrointestinal: Abdomen is slightly distended tender, negative bowel sounds. Musculoskeletal: Continues to have profound muscle weakness bilaterally. Neurological: Alert and oriented x 3, generally weak Psychiatric: Normal mood, affect and normal mental status examination. - Labs CBC & Chem 7: 09/09/23 04:03 09/09/23 04:03 Labs: Abnormal Lab Results - Last 24 Hours (Table) 09/08/23 09/08/23 09/08/23 Range/Units 11:37 14:42 14:42 RBC (3.80-5.40) m/uL Hgb (11.4-16.0) gm/dL Hct (34.0-46.0) % Sodium (137-145) mmol/L Chloride (98-107) mmol/L Creatinine (0.52-1.04) mg/dL POC Glucose (mg/dL) 123 H (70-110) mg/dL Hemoglobin A1c 6.1 H (<=6.0) % Vitamin B12 1037.0 H (200.0-944.0) pg/mL 09/08/23 09/09/23 09/09/23 Range/Units 18:06 04:03 04:03 RBC 3.31 L (3.80-5.40) m/uL Hgb 10.4 L (11.4-16.0) gm/dL Hct 32.7 L (34.0-46.0) % Sodium 128 L (137-145) mmol/L Chloride 96 L (98-107) mmol/L Creatinine 0.18 L (0.52-1.04) mg/dL POC Glucose (mg/dL) 120 H (70-110) mg/dL Hemoglobin A1c (<=6.0) % Vitamin B12 (200.0-944.0) pg/mL Assessment and Plan Assessment: 1. Acute hypoxic respiratory failure; related to COPD exacerbation --We will continue with O2 at 6 L per nasal cannula keeping O2 saturation greater than 90% -Continue with Solu-Medrol nebulizer treatments -- Empiric antibiotic coverage with IV Rocephin 2. History of smoking cessation; counseling done on need for quitting smoking 3. HIV/AIDS; patient is currently on Biktarvy; viral load and CD4 counts have been addressed VT prophylaxis; SCDs CODE STATUS; full code
[2023-09-09 17:19] LABS: Glucose,Whole Blood 89 mg/dL (70-110)
--- NOTE | 2023-09-09 18:11 | P.PN ---
Subjective Principal diagnosis: ASSESSMENT: 1. Acute hypoxic respiratory failure 2. COPD exacerbation 3. Moderate protein calorie malnutrition 4. History of HIV 5. constipation PLAN: -Continue tube feeds -Continue local wound care to tracheostomy site -social work is arranging placement Patient seen and evaluated at bedside. Patient doing well, patient has mild abdominal pain in the lower abdomen. Objective - Vital Signs Vital signs: Vital Signs Temp 98.2 F 09/09/23 16:00 Pulse 133 H 09/09/23 17:00 Resp 20 09/09/23 17:00 BP 163/91 09/09/23 17:00 Pulse Ox 98 09/09/23 13:00 FiO2 35 09/09/23 16:00 Intake & Output 09/08/23 09/09/23 09/09/23 18:59 06:59 18:59 Intake Total 380 240 400 Output Total 755 700 625 Balance -375 -460 -225 Weight 57.1 kg Intake: IV 320 240 200 Potassium Chloride 10 meq 100 In Water For Injection 1 100ml.bag @ 100 mls/hr IVPB Q1H [facility] Rx#: [id number] Sodium Chloride 0.9% 1, 220 240 200 000 ml @ 20 mls/hr IV . Q24H [facility] Rx#:[id number] Intake, IV Titration 100 Amount Potassium Chloride 20 meq 100 In Water For Injection 1 100ml.bag @ 50 mls/hr IVPB Q2H [facility] Rx#: [id number] Oral 60 100 Output: Urine 755 700 625 Other: Voiding Method Indwelling Catheter Indwelling Catheter Indwelling Catheter # Bowel Movements 1 ABP, PAP, CO, CI - Last Documented Arterial Blood Pressure 109/53 - Exam gen: nad cv: rrr pul: non labored currently on minimal vent settings abd: soft, tender to palpation in the lower abdomen w/ fullness - Labs CBC & Chem 7: 09/09/23 04:03 09/09/23 04:03 Labs: Abnormal Lab Results - Last 24 Hours (Table) 09/08/23 09/08/23 09/09/23 Range/Units 14:42 14:42 04:03 RBC 3.31 L (3.80-5.40) m/uL Hgb 10.4 L (11.4-16.0) gm/dL Hct 32.7 L (34.0-46.0) % Sodium (137-145) mmol/L Chloride (98-107) mmol/L Creatinine (0.52-1.04) mg/dL Hemoglobin A1c 6.1 H (<=6.0) % Vitamin B12 1037.0 H (200.0-944.0) pg/mL 09/09/23 Range/Units 04:03 RBC (3.80-5.40) m/uL Hgb (11.4-16.0) gm/dL Hct (34.0-46.0) % Sodium 128 L (137-145) mmol/L Chloride 96 L (98-107) mmol/L Creatinine 0.18 L (0.52-1.04) mg/dL Hemoglobin A1c (<=6.0) % Vitamin B12 (200.0-944.0) pg/mL
[2023-09-10 00:44] LABS: Glucose,Whole Blood 72 mg/dL (70-110)
[2023-09-10 05:01] LABS: HCT 31.8 % (34.0-46.0); HGB 10.2 gm/dL (11.4-16.0); MCH 31.5 pg (25.0-35.0); MCHC 32.1 g/dL (31.0-37.0); MCV 98.2 fL (80.0-100.0); Mean Platelet Volume 6.9; Platelet Count 433 k/uL (150-450); RBC 3.24 m/uL (3.80-5.40); RDW 13.4 % (11.5-15.5); WBC 6.9 k/uL (3.8-10.6)
[2023-09-10 05:13] LABS: African American GFR (CKD) >90 (>60 ml/min/1.73 sqM); Anion Gap 9 mmol/L; Blood Urea Nitrogen 12 mg/dL (7-17); Calcium 8.9 mg/dL (8.4-10.2); Carbon Dioxide 24 mmol/L (22-30); Chloride 91 mmol/L (98-107); Glucose 67 mg/dL (74-99); Non-African American GFR(CKD) >90 (>60 ml/min/1.73 sqM); Potassium 3.9 mmol/L (3.5-5.1); Sodium 124 mmol/L (137-145)
[2023-09-10 05:26] LABS: Glucose,Whole Blood 68 mg/dL (70-110)
[2023-09-10] MEDS: POTASSIUM CHLORIDE 10 MEQ in WATER FOR INJECTION 1 100ML.BAG IVPB SCH (05:48)
[2023-09-10 05:54] LABS: Glucose,Whole Blood 143 mg/dL (70-110)
--- NOTE | 2023-09-10 11:02 | P.PN ---
Subjective Progress Note Date: 09/10/23 Patient was seen for a follow-up. Patient is laying comfortably in the bed. Patient has tracheostomy. Per respiratory therapist, patient is CPAP being very well. Patient is fully alert and awake. She is not able to speak, but understands everything and sees with lips "feeling good". Patient nods "no" for headache. Patient is laying comfortably in the bed. Appears in no distress. Objective - Vital Signs Vital signs: Vital Signs Temp 98.2 F 09/09/23 16:00 Pulse 133 H 09/09/23 17:00 Resp 20 09/09/23 17:00 BP 163/91 09/09/23 17:00 Pulse Ox 98 09/09/23 13:00 FiO2 35 09/09/23 16:00 Intake & Output 09/08/23 09/09/23 09/09/23 18:59 06:59 18:59 Intake Total 380 240 400 Output Total 755 700 625 Balance -375 -460 -225 Weight 57.1 kg Intake: IV 320 240 200 Potassium Chloride 10 meq 100 In Water For Injection 1 100ml.bag @ 100 mls/hr IVPB Q1H [facility] Rx#: [id number] Sodium Chloride 0.9% 1, 220 240 200 000 ml @ 20 mls/hr IV . Q24H [facility] Rx#:[id number] Intake, IV Titration 100 Amount Potassium Chloride 20 meq 100 In Water For Injection 1 100ml.bag @ 50 mls/hr IVPB Q2H [facility] Rx#: [id number] Oral 60 100 Output: Urine 755 700 625 Other: Voiding Method Indwelling Catheter Indwelling Catheter Indwelling Catheter # Bowel Movements 1 ABP, PAP, CO, CI - Last Documented Arterial Blood Pressure 109/53 - Exam Patient is on ventilator, via tracheostomy. Patient is on CPAP at this time. Patient's comprehension is intact. Sensorium is very clear. On cranial nerve examination pupils are equal, round and reactive to light, visu al moralez are full, extraocular's are intact. Her face appears symmetric. On muscle strength testing her shoulder shrug is normal bilaterally. Deltoids are 3-2+, biceps 1-2, hip flexion 1-2, ankle dorsiflexion 2-3 bilaterally. Reflexes are trace at the biceps, 0 brachioradialis, 1+ at the knees and patient has boots on. Cerebellar functions and gait cannot be tested. Sensations are equal. - Labs CBC & Chem 7: 09/10/23 04:20 09/10/23 04:20 Labs: Abnormal Lab Results - Last 24 Hours (Table) 09/08/23 09/08/23 09/08/23 Range/Units 14:42 14:42 18:06 RBC (3.80-5.40) m/uL Hgb (11.4-16.0) gm/dL Hct (34.0-46.0) % Sodium (137-145) mmol/L Chloride (98-107) mmol/L Creatinine (0.52-1.04) mg/dL POC Glucose (mg/dL) 120 H (70-110) mg/dL Hemoglobin A1c 6.1 H (<=6.0) % Vitamin B12 1037.0 H (200.0-944.0) pg/mL 09/09/23 09/09/23 Range/Units 04:03 04:03 RBC 3.31 L (3.80-5.40) m/uL Hgb 10.4 L (11.4-16.0) gm/dL Hct 32.7 L (34.0-46.0) % Sodium 128 L (137-145) mmol/L Chloride 96 L (98-107) mmol/L Creatinine 0.18 L (0.52-1.04) mg/dL POC Glucose (mg/dL) (70-110) mg/dL Hemoglobin A1c (<=6.0) % Vitamin B12 (200.0-944.0) pg/mL Assessment and Plan Assessment: Is a 52-year-old woman with history of HIV, COPD who presented to the emergency department 08/10/2023 for respiratory distress. As a result patient was intubated on a ventilator on 08/13/2023 and then eventually got a tracheostomy. She was on Nimbex during the initial phase of her hospital visit. Patient is having generalized weakness. Generalized weakness seems more critical illness polyneuropathy versus myopathy. Patient has hyporeflexia, but reflexes are still present. CT of the head on 08/13/2023 reveals focal area of hypoattenuation involving the inferior right temporal lobe of indeterminate age. That would not explain the patient's symptoms above. I reviewed the CT and I had difficulty appreciating any large hypoattenuation. Acute hypoxic respiratory failure secondary due to acute exacerbation of COPD requiring mechanical ventilation currently she has tracheostomy Mild transamnitis Advance COPD Left upper lobe 9 mm nodule on the CT chest AIDS with a CD4 less than 200 Abdominal distention and possibly fecal impaction Plan: Repeat CT of the head and cervical spine from 09/08/2023, showed no acute process. Some degenerative changes of the spine. I personally reviewed CT head, agree with the findings. CK level 59, TSH 0.793, vitamin B12 1037, folate 21.7, ammonia 9 and Hemoglobin A1c 6.1, all normal. Commend EMG with nerve conduction study as an outpatient Dr. Pro has recommended MRI of the brain to assess whether her lesion reported on the CT is truly an old stroke versus a lesion from her immunosuppression leading to LELA virus possibly and leading into PML. PT and OT are on board and patient needs to work with therapy. Will defer the rest of the medical management to primary and other specialists Neurology will follow.
--- NOTE | 2023-09-10 11:05 | P.PN ---
Subjective Progress Note Date: 09/10/23 patient's PEG tube site is clean. Tracheostomy site is clean. She'll continue supportive care. Objective - Vital Signs Vital signs: Vital Signs Temp 98.1 F 09/10/23 09:00 Pulse 122 H 09/10/23 09:00 Resp 18 09/10/23 09:00 BP 134/89 09/10/23 09:00 Pulse Ox 99 09/10/23 09:00 FiO2 35 09/10/23 10:48 Intake & Output 09/09/23 09/10/23 09/10/23 18:59 06:59 18:59 Intake Total 450 335 150 Output Total 695 300 75 Balance -245 35 75 Intake: IV 240 220 140 Sodium Chloride 0.9% 1, 240 220 140 000 ml @ 75 mls/hr IV . [id number] [facility] Rx#:[id number] Intake, IV Titration 100 Amount Potassium Chloride 20 meq 100 In Water For Injection 1 100ml.bag @ 50 mls/hr IVPB Q2H [facility] Rx#: [id number] Oral 100 Tube Feeding 10 85 10 Other 30 Output: Urine 695 300 75 Other: Voiding Method Indwelling Catheter Indwelling Catheter Indwelling Catheter ABP, PAP, CO, CI - Last Documented Arterial Blood Pressure 109/53 - Labs CBC & Chem 7: 09/10/23 04:20 09/10/23 04:20 Labs: Abnormal Lab Results - Last 24 Hours (Table) 09/10/23 09/10/23 09/10/23 Range/Units 04:20 04:20 05:25 RBC 3.24 L (3.80-5.40) m/uL Hgb 10.2 L (11.4-16.0) gm/dL Hct 31.8 L (34.0-46.0) % Sodium 124 L (137-145) mmol/L Chloride 91 L (98-107) mmol/L Creatinine 0.21 L (0.52-1.04) mg/dL Glucose 67 L (74-99) mg/dL POC Glucose (mg/dL) 68 L (70-110) mg/dL 09/10/23 Range/Units 05:52 RBC (3.80-5.40) m/uL Hgb (11.4-16.0) gm/dL Hct (34.0-46.0) % Sodium (137-145) mmol/L Chloride (98-107) mmol/L Creatinine (0.52-1.04) mg/dL Glucose (74-99) mg/dL POC Glucose (mg/dL) 143 H (70-110) mg/dL
--- NOTE | 2023-09-10 11:11 | P.PN ---
Subjective Progress Note Date: 09/10/23 Principal diagnosis: Acute hypoxic respiratory failure secondary to acute exacerbation of COPD This is a 52-year-old female patient with known history of COPD. The patient is maintained on Trelegy Ellipta on outpatient basis and she also has a DuoNeb nebulized treatment to be used on an as-needed basis. She is known to have HIV and currently she is on Biktarvy followed up by Dr. Salguero on outpatient basis regarding her HIV. She is not aware of her recent CD4 counts and viral loads. She has been having issues with increased respiratory distress and OUTPATIENT THERAPIST exacerbation for the past 2 to 3 weeks. She received several rounds of antibiotics and steroids for our office for OUTPATIENT THERAPIST exacerbation she did not encounter any significant improvement. She ultimately came into the hospital for increased shortness of breath. She was briefly placed on BiPAP and the patient is currently on oxygen at 6 L/min nasal cannula with a pulse ox of 98%. She is quite short of breath even at rest. Not using accessory muscles of breathing. Sodium levels at 126, potassium is 4.3, bicarb is 29, BUN is at 8 with a creatinine of 0.39. WBC count of 4.7 with a hemoglobin of 14.5 and a platelet count of 241. The viral screen came back negative. The chest x-ray shows no acute abnormalities. There is hyperinflation consistent with COPD. Scattered senescent parenchymal changes are seen bilaterally. Findings are essentially consistent with COPD. She was started on bronchodilators with D uoNeb updrafts. She is also on IV Solu-Medrol. She was started on Zithromax as an empiric antibiotic coverage and she is also normal saline at rate of 75 cc an hour. No frequent hospital admissions for COPD exacerbation. Her last admission to the hospital was back in 2021 essentially same presentation. She has been trying to quit smoking and she has not smoked for the past several months. She has been smoking since the age of 11 and she carries more than [id number] smoking history. On 08/11/2023, the patient is being seen for a follow-up. The patient was hospitalized for an acute Exacerbation the patient is feeling better on today's evaluation this bronchospastic and wheezy. She is known to have HIV. Viral constant CD4 counts are still pending for now. She is currently on Zithromax, IV Solu-Medrol, DuoNeb nebulized treatments [id number]. She has failed outpatient treatment for that reason the patient was hospitalized. No fever. No altered mentation. No other new complaints otherwise for now. Oxygenation is stable on 3 L O2 nasal cannula with a pulse ox of 98%. On today's evaluation of 08/12/2023, the patient reports limited improvement since yesterday. Still bronchospastic and wheezy and continues to be short of breath. Maintained on Symbicort and DuoNeb updrafts and maintained on IV Solu- Medrol 60 mg every 6 hours. She remains on empiric antibiotic coverage with IV Zithromax. No nausea vomiting or diarrhea. BUN is at 19 with a creatinine of 0.5 and a sodium levels at 138. No other significant events otherwise for now. The patient has a impaired CD4 count of 81. As such, the patient is high immunosuppressed and she may be potentially at risk of opportunistic infection. Patient continue antiretroviral treatment. Obtain a follow-up chest x-ray tomorrow. On 08/13/2023, the patient is quite lethargic on a BiPAP. Events from yesterday was noted. The patient became progressively more short of breath. She became restless, anxious, along with increased agitation and respiratory distress. The patient accordingly was placed on a BiPAP at a pressure of 12 over 5 cm of water and currently she is on #2 of 60%. She is generating a tidal volume of around about 400 with a minute ventilation of 7.4. Respirate is currently at 18. She is actively bronchospastic and wheezy. Blood gases that was done before the BiPAP utilization showed a pH of 7.24 with a pCO2 of 98 and pO2 of 69. Rest of the labs from today are still pending. A repeat chest x-ray was done this morning and it shows no evidence of any acute cardiopulmonary process. The patient remains on bronchodilators. The patient remains on IV Solu-Medrol 60 mg every 6 hours. As mentioned earlier, her CD4 count was low at 81. Nevertheless, no indication for any opportunistic infections at this point in time. Her temperature is low and the patient is afebrile and hemodynamically stable. She did receive Ativan 1 mg and she seems to be much more comfortable and synchronous with the BiPAP treatment. Will transfer the patient to the intensive care unit. Will repeat her blood gas. Use Precedex if needed. Patient was placed today on 08/14/2023, patient was admitted few days ago, however yesterday patient was intubated and required mechanical ventilation. Patient is now on assist-control rate of 16 tidal volume 350 FiO2 45% and PEEP of 5 ABG on 40% and rate of 16 showed a pO2 of 59 pCO2 51 pH of 7.47 hence I increased the FiO2 to 45% and cut down the rate to 14. Patient will be allowed to have more permissive hypercapnia patient is still requiring significant amount of sedation including propofol at 50 mcg/kg/min Nimbex at 2 mcg/kg/min she is also on Dilaudid [id number], on Lovenox enteral feeding, and IV fluid at 0.9 normal saline at 75 cc/h. Patient is not requiring any pressors or any inotropes. Patient is immunocompromise, she does have history of HIV, and she has very low CD4 count of 81. She is definitely high risk for opportunistic infections, infectious disease was consulted. Considering her gases and considering her physical exam findings, patient is not quite ready for weaning, and I have no plans to wean and extubate today. I will keep the patient presently on Nimbex, she got intubated last night, and will continue broncho dilators, continue steroids, and continue enteral feeding/nutritional support. Chest x-ray this morning showed emphysematous changes, no acute pulmonary process. CT of the brain showed a focal area of hypoattenuation involving the inferior right temporal lobe.May represent an infarct, possibly chronic. BBC count today is 9.2 hemoglobin is 12.5 basic metabolic profile is normal bicarb is 37, renal profile is normal. 09/03/2023, the patient is awake, sitting up on a recliner on a pressure support mode of mechanical ventilation at the pressure of 12 with a PEEP of 5. She is comfortable with the blood gas showed a pH of 7.48 with a pCO2 of 46 and pO2 of 133. She is profoundly weak. Trying to move her extremities and she is involved in physical therapy and passive range of motion. She is still on the same bronchodilators. Prednisone is currently down to 20 mg. She is on vital AF at the rate of 61. She is looking into going into [facility]. The white cell count is at 7 with a hemoglobin of 9.6 and a platelet count of 265. BUN is 22 with a creatinine 0.15 and a sodium level is at 133 with a potassium level of 4.0. No fever. Mental status is adequate. No agitation. Fluid balance is -2.1 L over the past 24 hours. Patient was reevaluated today on 09/04/2023, remains in the ICU, remains intubated and mechanically ventilated. However the patient is tolerating pressure support quite well. She is on pressure support of 12, and I cut down her pressure support to 10. Patient has been in the ICU now for the last 25 days. She is awake, follows all simple instructions but the patient is extremely and profoundly weak. 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 Patient continues to have tracheostomy in place, and I am not planning to go to trach collar at this point yet, we will try to taper down her pressure support from 12-10. Remains on enteral feeding receiving vital AF at 51 cc/h via PEG tube, this is at goal. Labs today were reviewed she had a WBC count of 6.4 hemoglobin 9.9 basic metabolic profile is normal potassium 3.3 bein g addressed accordingly renal profile is normal. Chest x-ray showed no evidence of pneumonia, patient does have right-sided PICC line terminating in the cavoatrial junction. Tracheostomy is intact her last sputum culture was +08/12 for Rimma albicans, her bronchial washings have been positive for Rimma albicans, patient has been receiving Eraxis all along. Infectious disease will most likely discontinue Eraxis today. Patient was reevaluated today on 09/05/2023, patient is now sitting at the bedside chair, remains on pressure support mode of mechanical ventilation, today I gave the patient a trial of trach collar, patient failed within less than 10 minutes, she was noted to be short of breath, tachycardic, tachypneic, and she had to be placed back on pressure support mode of mechanical ventilation with pressure support of 12 and CPAP. Chest x-ray continues to show no evidence of active disease. CBC and basic metabolic profile today are relatively normal, bicarb is 32. Patient was denied transfer to LTAC facility, could not reach her insurance for peer to peer review. Left a message. Meantime we will continue to have daily trials and weaning trials for weaning this patient from mechanical ventilation. 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 Hence in my assessment patient will definitely benefit from transfer to an LTAC facility. They could handle the weaning process over a period of time. She needs physical therapy to get her muscle weakness improved. Patient was reevaluated today on 09/06/2023, patient has been doing fairly well over the last 24 hours with pressure support only of 14, however the patient seems to be tiring out, and seems to be developing more shortness of breath today compared to yesterday. She is getting a bit restless agitated, tachypneic and tachycardic, I tried the patient on IMV mode along with pressure support con tinue to do poorly, hence I transitioned the patient completely to assist- control mode of mechanical ventilation with assist-control rate of 12 tidal volume 400 FiO2 35% and PEEP of 5 obviously the patient is not ready to be weaned further and she is not doing great with pressure support only but she did well for 24 hours my plan today is to rest her back on assist-control mode of mechanical ventilation. Patient is getting nutritional support via PEG tube, she is on Eraxis and on Bactrim. Chest x-ray continues to show no evidence of infiltrate. WBC count today is 3.8 hemoglobin 9.5 basic metabolic profile is normal potassium is a bit low at 3.4 BUN is 18 creatinine 0.18. Patient remains on Biktarvy, patient is also on prednisone 20 mg daily. Remains on bronchodilators/DuoNeb updrafts and she is also on Pulmicort and Perforomist. Patient was earlier today on 09/07/2023, remains in the ICU, intubated and mechanically ventilated. Patient is not tolerating trials of weaning, yesterday I had to place back on. Ventilatory support, and she remains on assist-control mode of mechanical ventilation, AC rate of 12, tidal volume 400 FiO2 35% and PEEP of 5. Patient seems to be very comfortable on that mode of mechanical ventilation, however I plan today to give her a trial of pressure support again and I will likely alternate pressure support mode of mechanical ventilation with pressure support of 14 and every 2 hours alternate with assist-control mode of mechanical ventilation. WBC count is 4.8 hemoglobin 9.7 basic metabolic profile is normal renal profile is normal. Chest x-ray showed no evidence of infiltrate Patient was currently on 09/08/2023, remains in the ICU intubated and mechanically ventilated, patient has been a failure to wean, yesterday we alternated pressure support mode of mechanical ventilation with assist-control mode of mechanical ventilation throughout the day and transitioning was done every 2 hours. Patient did well today I plan to extend the pressure support mode of mechanical ventilation longer or as long as the patient tolerates. She will be on pressure support of 14. No backup IMV rate, patient seems to be tolerating that mode very well. However the patient seems to have developed some fecal impaction or constipation with distended abdomen, and dilated bowel loops, patient is receiving MiraLAX and lactulose, and her abdominal distention will be addressed with decompression from the PEG tube, and will continue MiraLAX and lactulose. On physical examination she does not have a surgical abdomen but that is a bit of a concern if the patient does not decompress. For her severe critical illness polyneuropathy and myopathy I am recommending evaluation by neurology. Patient is again very difficult to wean, and I still believe the patient would benefit and she will be better off in LTAC, chest x- ray continues to show no infiltrate. WBC count is 4.9 hemoglobin is 10.0 basic metabolic profile is normal sodium is a bit low at 130 renal profile is normal Patient was reevaluated today on 09/09/2023, remains in the ICU intubated and mechanically ventilated. Yesterday the patient had about 6 hours of pressure support mode of mechanical ventilation with pressure support of 14 and CPAP. However after 6 hours patient felt that she needed to go back on AC mode and she was placed back on AC mode has been on the AC mode for overnight. She is now on assist-control rate of 12 tidal volume 400 FiO2 55%, and PEEP of 5. WBC count today 6.6 hemoglobin 10.4, sodium is a bit low at 128 potassium 3.5 bicarb is 27 BUN is 10 creatinine 0.18. Patient continues to have some vague abdominal discomfort although she had a good bowel movement yesterday. And her abdominal findings are less concerning today, she is not as tender, and she is not as distended. Will likely resume feeding again today via PEG tube. Patient was seen by neurology yesterday for her critical illness polyneuropathy/myopathy the recommendation is mostly at this point physical therapy and Occupational Therapy and recommending EMG with nerve conduction study as an outpatient. Patient was reevaluated today on 09/10/2023 remains in the ICU, intubated, mecha nically ventilated. However the patient was able to tolerate at least 8 hours of pressure support/CPAP yesterday with a pressure support of 14. Patient will be given another trial of pressure support today and continue to give her these trials on a daily basis eventually cut down on the pressure support from 14 to lower pressures 12 and eventually to 8. In the meantime the patient continues to have intermittent episodes of abdominal distention her last bowel movement was 2 days ago, patient will have her PEG tube on suction today, will continue with the lactulose and with MiraLAX. For her low sodium today of 124, I am recommending 0.9 normal saline increased to 100 cc/h since we are planning to hold her feedings for the next 24 hours. Patient seems to be tolerating pressure support of 14 today well. Moving good tidal volumes in the range of 360-400 and her respiratory rate is in the teens. Overall the patient is doing well, the main 2 issues at this point are related to her profound critical illness polyneuropathy and weakness and related to failure to wean and decannulate tracheostomy, and both issues are related Objective - Vital Signs Vital signs: Vital Signs Temp 98.1 F 09/10/23 09:00 Pulse 122 H 09/10/23 09:00 Resp 18 09/10/23 09:00 BP 134/89 09/10/23 09:00 Pulse Ox 99 09/10/23 09:00 FiO2 35 09/10/23 10:48 Intake & Output 09/09/23 09/10/23 09/10/23 18:59 06:59 18:59 Intake Total 450 335 150 Output Total 695 300 75 Balance -245 35 75 Intake: IV 240 220 140 Sodium Chloride 0.9% 1, 240 220 140 000 ml @ 75 mls/hr IV . [id number] [facility] Rx#:[id number] Intake, IV Titration 100 Amount Potassium Chloride 20 meq 100 In Water For Injection 1 100ml.bag @ 50 mls/hr IVPB Q2H [facility] Rx#: [id number] Oral 100 Tube Feeding 10 85 10 Other 30 Output: Urine 695 300 75 Other: Voiding Method Indwelling Catheter Indwelling Catheter Indwelling Catheter ABP, PAP, CO, CI - Last Documented Arterial Blood Pressure 109/53 - Exam General: Revealed 52-year-old female, awake, in no distress. On pressure support mode of mechanical ventilation, pressure support of 14 Skin: Skin is warm and dry and no rashes or lesions are noted. Eye: Pupils are equal, round and reactive to light, extra-ocular movements are intact Ears, nose, mouth and throat: There are moist mucous membranes and no oral lesions. Neck: The neck is supple, there is no tenderness or JVD. Tracheostomy is intact. Cardiovascular: Normal S1-S2, no S3 gallop. No murmur. Respiratory: Good breath sound bilaterally no rhonchi no wheezes Gastrointestinal: Soft, nontender, no rebound no guarding, not distended today as it was yesterday. Musculoskeletal: Continues to have profound muscle weakness bilaterally. Neurological: Alert and oriented x 3, profoundly weak Psychiatric: Normal mood, affect and normal mental status examination. Skin: No rashes - Labs CBC & Chem 7: 09/10/23 04:20 09/10/23 04:20 Labs: Abnormal Lab Results - Last 24 Hours (Table) 09/10/23 09/10/23 09/10/23 Range/Units 04:20 04:20 05:25 RBC 3.24 L (3.80-5.40) m/uL Hgb 10.2 L (11.4-16.0) gm/dL Hct 31.8 L (34.0-46.0) % Sodium 124 L (137-145) mmol/L Chloride 91 L (98-107) mmol/L Creatinine 0.21 L (0.52-1.04) mg/dL Glucose 67 L (74-99) mg/dL POC Glucose (mg/dL) 68 L (70-110) mg/dL 09/10/23 Range/Units 05:52 RBC (3.80-5.40) m/uL Hgb (11.4-16.0) gm/dL Hct (34.0-46.0) % Sodium (137-145) mmol/L Chloride (98-107) mmol/L Creatinine (0.52-1.04) mg/dL Glucose (74-99) mg/dL POC Glucose (mg/dL) 143 H (70-110) mg/dL Assessment and Plan Assessment: Impression: Acute hypoxic respiratory failure secondary to acute exacerbation of COPD requiring intubation mechanical ventilation on 08/13/2023. Also requiring tracheostomy for failure to wean continues to have tracheostomy in place, patient tolerated pressure support for mechanical ventilation for about 24 hours, today patient is on assist-control mode of mechanical ventilation, and will try out to alternate this mode with pressure support mode of mechanical ventilation every 2 hours. Advanced COPD left upper lobe 9 mm nodule seen on CT of the chest, needs outpatient follow History of HIV,patient has very low CD4 count, she is prone to opportunistic infections, cultures have been negative from BAL, patient is empirically on Levaquin Status post bronchoscopy and BAL 08/12, nondiagnostic Critical illness polyneuropathy with profound weakness Rimma in the sputum/BAL, receiving Eraxis as per ID on the case Failure to wean from mechanical ventilation, still recommend patient needs to have to be transferred to LTAC facility. Abdominal distention, resolved today after she had a bowel movement yesterday. Recommendation: Continue physical therapy and Occupational Therapy Strongly recommend LTAC transfer patient will be difficult to wean and eventually decannulate this may take months. Continue daily trials of pressure support of 14 and eventually cut down the pressure support from 14 gradually down to 8 in the next few days. Continue Zoloft, patient is refusing to take her Seroquel. Enteral feeding once her abdominal discomfort and constipation resolved Continue MiraLAX and continue lactulose Continue bronchodilators Continue GI and DVT prophylaxis Continue tapering of steroids, patient is now on prednisone at 10 mg daily Continue on Biktarvy for HIV treatment, continue Bactrim Will continue to follow Time with Patient: Less than 30
[2023-09-10 11:58] LABS: Glucose,Whole Blood 90 mg/dL (70-110)
--- NOTE | 2023-09-10 13:25 | XR ---
EXAMINATION TYPE: XR chest 1V portable DATE OF EXAM: 09/10/2023 Comparison: 09/06/2023 Clinical History: 52-year-old female c/o sob Findings: Tracheostomy cannula. Right PICC tip mid SVC. Heart upper limits of normal in size. Hyperinflation. N o consolidation or pleural effusion. Impression: COPD. No definite acute process.
[2023-09-10 18:08] LABS: Glucose,Whole Blood 78 mg/dL (70-110)
[2023-09-10 23:38] LABS: Glucose,Whole Blood 64 mg/dL (70-110)
[2023-09-11 00:04] LABS: Glucose,Whole Blood 162 mg/dL (70-110)
[2023-09-11 06:08] LABS: HCT 31.3 % (34.0-46.0); MCH 31.3 pg (25.0-35.0); MCHC 31.9 g/dL (31.0-37.0); Platelet Count 444 k/uL (150-450); RDW 13.3 % (11.5-15.5); WBC 6.1 k/uL (3.8-10.6)
[2023-09-11 06:56] LABS: Band Neutrophils % 5 %; Eosinophils # (M) 0.18 k/uL (0-0.7); Lymphocytes # (M) 1.71 k/uL (1.0-4.8); Metamyelocytes # (M) 0.31 k/uL (0); Metamyelocytes % 5 %; Monocytes # (M) 0.67 k/uL (0-1.0); Myelocytes # (M) 0.06 k/uL (0); Myelocytes % 1 %; Neutrophils % (M) 47 %; Nucleated Red Blood Cells 0 /100 WBC (0-0); Total Cells Counted 200
[2023-09-11 07:03] LABS: African American GFR (CKD) >90 (>60 ml/min/1.73 sqM); Anion Gap 9 mmol/L; Blood Urea Nitrogen 6 mg/dL (7-17); Calcium 8.8 mg/dL (8.4-10.2); Carbon Dioxide 22 mmol/L (22-30); Chloride 93 mmol/L (98-107); Glucose 75 mg/dL (74-99); Non-African American GFR(CKD) >90 (>60 ml/min/1.73 sqM); Potassium 3.4 mmol/L (3.5-5.1); Sodium 124 mmol/L (137-145)
[2023-09-11] MEDS ORDERED: Potassium Replacement Protocol 1 EACH MISC MISCELLANE PRN (07:08)
[2023-09-11] MEDS: POTASSIUM BICARBONATE/CIT AC 20 MEQ TABLET.EFF NG-TUBE SCH (08:24)
[2023-09-11] MEDS: predniSONE 10 MG TAB PO SCH (08:25)
[2023-09-11 08:50] LABS: Glucose,Whole Blood 86 mg/dL (70-110)
--- NOTE | 2023-09-11 10:57 | P.PN ---
Subjective Progress Note Date: 09/11/23 Principal diagnosis: Respiratory failure. Patient was elevated today on 08/16/2023, remains in the ICU, intubated and mechanically ventilated. Remains on assist-control rate of 18 tidal volume 350 FiO2 35% PEEP of 5 ABG showed a pO2 of 103 pCO2 68 pH of 7.31, hence no changes were made in vent settings. Patient continues to have relatively high peak airway pressures in the high 30s. Continues to be tight and seems to have poor air exchange. Yesterday the patient was given a trial off Nimbex, however could not tolerate going off Nimbex in spite of using propofol fentanyl and Versed. Patient had to go back on Nimbex yesterday because of extreme agitation and she was not synchronous with the ventilator, noted to be tachypneic, tachycardic, and she was bucking the ventilator. Not to mention she was developing significantly high airway pressure. Today the patient is back on Nimbex at 2 mcg/kg/min Fentanyl 1 mcg/kg/h propofol 60 mcg/kg/min she is receiving vital AF she is also 1.9 normal saline at 75 cc/h. Remains on antibiotics in the form of Levaquin and cefepime. Her cultures have been negative including BAL culture, she did have Rimma, doubt any significance, I infectious disease is addressing. Considering what I have noted yesterday when the patient was off Nimbex, and considering her overall clinical condition today, I have no plans to discontinue discontinue Nimbex today. Will continue with the present cocktail sedation including Nimbex fentanyl and propofol, and will continue mechanical ventilation without any major change. Also continue antibiotics. And bronchodilators as well as IV Solu-Medrol. Reevaluate today on 08/17/2023, patient remains in the ICU, intubated and mechanically ventilated. Remains on assist-control rate of 18 tidal volume 350 FiO2 35% and PEEP of 5 ABG showed a pO2 of 102 pCO2 65 pH of 7.33. Chest x-ray continues to show no evidence of any active process. Patient remains on propofol at 60 mcg/kg/min, Nimbex at 2 mcg/kg/min Fentanyl at 1 mcg/kg/h patient is receiving vital AF at she is remains on cefepime and Levaquin as per ID on the case. Today I plan to discontinue Nimbex and see if we could control patient's agitation adequately will fentanyl propofol and Versed if needed. Have tried in the past doing this, could not ventilate the patient without having to use Nimbex. However will try again to discontinue Nimbex and try to manage the patient with fentanyl propofol and Versed if possible. Otherwise I will place her back on Nimbex. Patient is hemodynamically stable, she is not requiring any pressors. She is receiving antibiotics is also receiving enteral feeding, and she is on GI and DVT prophylaxis. Reevaluate today on 08/18/2023, patient remains in the ICU, intubated and mechanically ventilated, on assist-control rate of 18 tidal volume 350 FiO2 35% PEEP of 5 ABG showed a pO2 of 85 pCO2 66 pH of 7.35 hence no changes were made in ventilator settings. Patient remains on fentanyl at 2 mcg/kg/h, Versed 4 mg/h propofol at 70 mcg/kg/min she is off Nimbex now for the last 24 hours, and able to control patient with sedation as such. Patient is on vital AF , the plan is to cut down her propofol to 50 and increase her Versed if needed. No plans to wean and extubate today, however will start possibly attempting sedation holidays beginning tomorrow. Chest x-ray continues to show no evidence of active disease. WBC count is 5.9 hemoglobin is 11.9 basic metabolic profile is normal renal profile is normal Patient was reevaluated today on 08/19/2023, remains in the ICU, intubated and mechanically ventilated, presently on assist-control rate of 18 tidal volume 350 FiO2 35% PEEP of 5 ABG showed a pO2 of 84 pCO2 68 pH of 7.35. Patient is close most likely to her baseline pCO2 in the 60s. Patient is on enteral feeding/vital HP she is also on propofol at 15 but the plan to increase up to 50 and discontinue Versed which is 3 mg/h at present patient is also on fentanyl 1 mcg/kg/h and an IV fluid at 75 cc/h in the form of saline. I am planning today to hold sedation, and assess mental status, but I am not planning to proceed to extubation. Her overall pulmonary status remains marginal at best, chest x-ray showed COPD but no evidence of pneumonia. WBC count is normal 7.3 hemoglobin is 11.9 basic metabolic profile is normal bicarb is 36 renal profile is normal Patient evaluated today on 08/20/2023, remains in the ICU, intubated and mechanically ventilated. Patient was given sedation holiday yesterday and early this morning, she gets extremely restless agitated, she was able to wiggle toes only, could not get any other responses on lower doses of sedation. However considering the patient is quite hypertensive off sedation, considering that the patient is definitely not ready for any form of weaning, the plan is to place back on fentanyl at 1 mcg/kg/h propofol will be increased back to 50 mcg/kg/min and will use Versed if necessary presently Versed is on hold. She is on 0.9 normal saline at 75 cc/h she is on Cleviprex at 13 mg/h patient is remains on antibiotics/Levaquin. Patient is developing a minimal patchy opacity in the right lower lobe which was not present previously, she is definitely a good set up for developing pneumonia. Ventilator settings today are assist-control rate of 18 tidal volume 350 FiO2 35% PEEP of 5 ABG showed a pO2 of 71 pCO2 68 pH of 7.40 hence no changes were made in vent settings. WBC count is 10.1 hemoglobin is 12 basic metabolic profile is normal except bicarb of 39 BUN is 33 creatinine 0.3 Progress note dated August 21, 2023. This is a 52-year-old female who was admitted on August 09. She came in with COPD exacerbation, and was intubated on August 12. She remains on the ventilator. She is on volume assist-control, rate 18, tidal volume 350, FiO2 35%, and PEEP of 5. Blood gases show pO2 of 63, pCO2 of 70, pH is 7.40. She continues on propofol at 40 mcg/kg/min, fentanyl at 1.5 mcg/kg/h, and Versed at 3 mg an hour. She is getting saline at 75 cc an hour, and vital AF at goal, which is 21 cc an hour. Because she has not made any headway towards weaning and extubation, we will ask surgery for tracheostomy and PEG tube placement. Current laboratory includes a white count 11.6, hemoglobin 12.2, hematocrit 38.3, and a normal platelet count. Sodium 133, potassium 4.1, chloride 95, CO2 40, BUN 23, and creatinine 0.29. Calcium 7.7. Sputum and bronchial washings were positive only for Rimma albicans. Chest x-ray shows improved aeration at the lung bases. Progress note dated August 22, 2023. This is a 52-year-old female who was admitted on August 09. She came in with COPD exacerbation, and was intubated on August 12. She remains on the ventilator. The patient's ventilator settings include volume assist-control, rate 18, tidal volume 350, FiO2 35%, and PEEP of 5. Blood gases show pO2 of 80, pCO2 of 67, pH is 7.42. The patient is getting saline at 75 cc an hour, propofol at 55 mcg/kg/min, fentanyl at 1.5 mcg/kg/h, Versed at 6 mg an hour, and tube feedings are on hold, for possible tracheostomy and PEG tube placement today. The patient's peak airway pressures 37, with a plateau pressure of 20. White count of 10.7, hemoglobin 11.6, hematocrit 37, and platelet count was normal. Sodium 135, potassium 4.5, chlorides 97, CO2 36, BUN 25, and creatinine is 0.36. Glucose is 136. Magnesium 2.4. Calcium 7.9. Chest x-ray shows no changes, compared to the prior chest x-ray. Progress note dated August 23, 2023. 52-year-old female admitted on August 09. She was admitted with a diagnosis of COPD exacerbation, and was intubated on August 12. She remains on the ventilator. Hopefully, today she will go for a tracheostomy, and PEG tube placement. She remains on the ventilator, with settings of volume assist- control, rate 18, tidal volume 350, FiO2 35%, and PEEP of 5. Blood gases show pO2 of 91, pCO2 of 63, pH is 7.44. The patient continues on saline at 75 cc an hour, Versed drip at 6 mg an hour, propofol at 55 mcg/kg/min, and fentanyl at 1.5 mcg/kg/h. Tube feeds are on hold. Will also ask for a PICC line, from interventional radiology. Currently, white count 13.4, globin 12, hematocrit 37.4, and platelet count 230,000. Sodium 136, potassium 4.1, chlorides 100, CO2 42, BUN 19, creatinine 0.30. Calcium is 8.1. Glucose is 128. Sputum, and bronchoscopy washings, does show evidence of Rimma albicans. Chest x-ray shows no definite focal consolidations. Progress note dated August 24, 2023. 52-year-old female admitted on August 09. She was admitted with a diagnosis of COPD exacerbation, and was intubated on August 12. She remains on the ventilator. The patient underwent a tracheostomy and PEG tube placement yesterday. She will have a PICC line placed today, i.e. August 23. Current ventilator settings include volume assist-control, rate 18, tidal volume 350, FiO2 35%, PEEP of 5. Blood gases show pO2 of 76, pCO2 of 63, pH is 7.41. The patient continues on Versed at 4 mg an hour, saline at 75 cc an hour, propofol at 40 mcg/kg/min, and fentanyl at 1.5 mcg/kg/h. Current white count 15, hemoglobin 12.2, hematocrit 37.5, and platelet count was normal. Sodium 136, potassium 4.2, chlorides 102, CO2 34, BUN 26, and creatinine 0.28. Glucose is 111. Albumin is 2.6 calcium 8.0. Chest x-ray is largely unchanged. Progress note dated August 25, 2023. 52-year-old female admitted on August 09, with a diagnosis of COPD exacerbation. The patient was intubated on August 12, for respiratory failure. The patient had a tracheostomy tube placed and PEG tube placed, on August 22. She remains on the mechanical ventilator. She is on volume assist-control, rate 18, tidal volume 350, FiO2 35%, PEEP of 5. Blood gases show pO2 of 69, pCO2 of 56, pH is 7.45. The patient is getting saline at 75 cc an hour, Cleveprex is currently off. The patient is also receiving propofol at 50 mcg/kg/min, and fentanyl at 2 mcg/kg/h. In addition, the patient is receiving Versed at 5 mg an hour, and vital, at goal, which is 33 cc an hour. White count is 16.9, hemoglobin 13.7, hematocrit 43, platelet count 233,000. Sodium 136, potassium 4, chlorides 100, CO2 37, BUN 24, creatinine 0.27. Glucose is 91. Calcium is 8. Microbiologic sampling is revealing evidence of Rimma albicans, in sputum, and bronchial washings. The patient's chest x-ray is mostly unchanged. Chronic changes are noted bilaterally. Progress note dated August 26, 2023. The patient is seen today in room 253. She remains on the mechanical ventilator. She is on volume assist-control, rate 18, tidal volume 350, FiO2 35%, PEEP of 5. Blood gases show pO2 74, pCO2 57, pH is 7.46. He is getting saline at 75 cc an hour, she has been on and off of Cleviprex. Currently, Versed is off. The patient continues on fentanyl at 2 mcg/kg/h, and vital AF at 33 cc an hour, which is goal. In addition, the patient's Solu-Medrol was converted to prednisone 40 mg a day. We will add Dilaudid, increase the Ativan frequency, and the patient continues on her antifungal, i.e. Eraxis. White count is 17.7, hemoglobin 12.9, hematocrit 41.4, and platelet count 238,000. Sodium 135, potassium 4, chloride 99, CO2 38, BUN 21, and creatinine 0.25. Magnesium is 2.4. Calcium 7.7. Glucose 148. The patient's chest x-ray is largely unchanged. Progress note dated August 27, 2023. The patient is again seen today in the intensive care unit, room 253. She remains on the volume assist-control mode, rate 18, tidal volume 350, FiO2 35%, PEEP of 5. Blood gases show pO2 79, pCO2 of 60, pH 7.43. The patient is getting saline at 75 cc an hour, propofol at 50 mcg/kg/min, and vital AF at goal, which is 33 cc an hour. White count 14.3, hemoglobin 12.4, hematocrit 39.4, and platelet count normal. Sodium 136, potassium 3.8, chlorides 100, CO2 36, BUN 19, and creatinine 0.33. Glucose is 106. Microbiologic sampling has always been negative, save for Rimma albicans. The patient does continue on a Eraxis. The patient's chest x-ray is largely unchanged. On today's evaluation of 08/28/2023, the patient is being seen for a follow-up. This is a case of advanced COPD maintained on Trelegy Ellipta on outpatient basis along with HIV with low CD4 counts, presented to the hospital with respiratory failure multiple requiring intubation and mechanical ventilation. T he patient is post prolonged ventilator dependent respiratory failure and the patient was given a tracheostomy tube that was inserted on 08/23/2023. Noted the patient was intubated on 08/13/2023. This morning, the patient is on propofol running at 50 mcg/kg/min and the patient will be given a sedation holiday. The patient is also normal sinus rate of 75 cc an hour. She is on assist-control mode at the rate of 18, tidal volume of 350, FiO2 is at 35% with a PEEP of 5. The chest x-ray from today is showing adequate positioning of the tracheostomy tube. The patient also has a right upper extremity PICC line catheter in place. No evidence of any cardiopulmonary abnormalities. No infiltrates or airspace disease. The patient remains on bronchodilators [id number] with DuoNeb updrafts. The patient remains on prednisone 40 mg p.o. daily as part of burst taper. The patient is on Lovenox for DVT prophylaxis. The patient is sitting PEG tube feeding and the patient has a vital AF at a rate of 33 cc an hour. Fluid balance is -1 L over the past 24 hours. No other significant events overnight. The blood gas from today shows a pH of 7.48 with a pCO2 of 56 and pO2 of 93. WBC count of 12.6 with a hemoglobin of 11.7, BUN is at 15 with a creatinine of 0.17 and sodium is at 135 and a potassium level of 3.8. Blood sugars at 83 from this morning. The bronchial wash was positive for Rimma and the patient is currently on Eraxis. On today's evaluation of 08/29/2023, I am seeing the patient for a follow-up. The patient remains on mechanical ventilator and the patient has a tracheostomy tube in place. The patient has been off propofol for the past 24 hours. Currently she is not receiving any form of sedative medications. She is very sluggishly responsive. Unable to communicate. Remains quite obtunded. Could be residual effect of various sedatives given to this patient over the past few weeks. She remains assist-control mode of mechanical ventilation at the rate of 18, tidal volume of 350, FiO2 of 35% with a PEEP of 5. Blood gas with a pH of 7.44 with pCO2 of 39 and pO2 of 122. Chest x-ray shows no acute abnormalities. Is consistent with COPD. Last procedure consolidation. Sodium level is 133 with a potassium level of 3.9, BUN is at 15 with a creatinine of 0.2 and a potassium level is at 3.9. WBC count is at 15.1 with a hemoglobin of 11.4 and a platelet count of 210. Remains on DuoNeb nebulized treatments [id number]. Remains on prednisone 40 mg p.o. daily. Remains on Lovenox for DVT prophylaxis 40 mg subcu on a daily basis. SSI scale coverage and the patient is also receiving enteral feeding for nutritional support with vital AF at the rate of 23 cc an hour through a PEG tube. Cardiac rhythm is sinus. No other significant events over the past 24 hours at this point in time. On today's evaluation of 08/30/2023, the patient seems to be struggling while being on a volume cycle mechanical ventilation. The patient is on a assist-co ntrol of 18, tidal volume of 350, FiO2 of 35% with a PEEP of 5. Chest x-ray remains unchanged. The patient has been off Precedex. The sedation was discontinued 7 AM in the morning. While being off sedation, the patient does not show adequate mentation. She senses painful stimulation. Does not follow any commands. She is profoundly weak and debilitated. She remains in normal sinus rhythm 75 cc an hour. Fluid balance is -3.5 L over the past 24 hours. Blood gas from today show a pH of 7.47 with a pCO2 of 50 and pO2 of 101. The patient is on vital AF at rate of 28 cc an hour. She remains on bronchodilators. She remains on prednisone 40 mg p.o. daily. She is also on Seroquel. Seroquel is being given a dose of 50 mg 3 times daily and the patient is also on Zoloft 50 mg p.o. daily. BuSpar will be also added for increased anxiety. Progress note dated August 31, 2023. The patient is seen today in room 253. The patient has been converted to pressure assist control mode of ventilation. Her inspiratory pressure is 15 cmH2O, and a respiratory time of 0.75 seconds. Her rate is 18, FiO2 35%, PEEP of 5. Currently, she is on saline at 75 cc an hour, vital AF at 38 cc an hour, which is goal, and I have asked the nurse to use Cleviprex, as needed, for blood pressure support. Current laboratory data includes a white count 13.5, hemoglobin 10.9, hematocrit 33.9, and a normal platelet count. Sodium 133, potassium 3.4, chlorides 99, CO2 34, BUN 13, creatinine 0.17. Glucose is 88. Calcium is 7.7. Blood gases are currently pending. Chest x-ray reveals clear lung moralez. There is a midline tracheostomy tube. Patient was earlier today on 09/07/2023, remains in the ICU, intubated and mechanically ventilated. Patient is not tolerating trials of weaning, yesterday I had to place back on. Ventilatory support, and she remains on assist-control mode of mechanical ventilation, AC rate of 12, tidal volume 400 FiO2 35% and PEEP of 5. Patient seems to be very comfortable on that mode of mechanical ventilation, however I plan today to give her a trial of pressure support again and I will likely alternate pressure support mode of mechanical ventilation with pressure support of 14 and every 2 hours alternate with assist-control mode of mechanical ventilation. WBC count is 4.8 hemoglobin 9.7 basic metabolic profile is normal renal profile is normal. Chest x-ray showed no evidence of infiltrate Patient was currently on 09/08/2023, remains in the ICU intubated and mecha nically ventilated, patient has been a failure to wean, yesterday we alternated pressure support mode of mechanical ventilation with assist-control mode of mechanical ventilation throughout the day and transitioning was done every 2 hours. Patient did well today I plan to extend the pressure support mode of mechanical ventilation longer or as long as the patient tolerates. She will be on pressure support of 14. No backup IMV rate, patient seems to be tolerating that mode very well. However the patient seems to have developed some fecal impaction or constipation with distended abdomen, and dilated bowel loops, patient is receiving MiraLAX and lactulose, and her abdominal distention will be addressed with decompression from the PEG tube, and will continue MiraLAX and lactulose. On physical examination she does not have a surgical abdomen but that is a bit of a concern if the patient does not decompress. For her severe critical illness polyneuropathy and myopathy I am recommending evaluation by neurology. Patient is again very difficult to wean, and I still believe the patient would benefit and she will be better off in LTAC, chest x-ray continues to show no infiltrate. WBC count is 4.9 hemoglobin is 10.0 basic metabolic profile is normal sodium is a bit low at 130 renal profile is normal Patient was reevaluated today on 09/09/2023, remains in the ICU intubated and mechanically ventilated. Yesterday the patient had about 6 hours of pressure support mode of mechanical ventilation with pressure support of 14 and CPAP. However after 6 hours patient felt that she needed to go back on AC mode and she was placed back on AC mode has been on the AC mode for overnight. She is now on assist-control rate of 12 tidal volume 400 FiO2 55%, and PEEP of 5. WBC count today 6.6 hemoglobin 10.4, sodium is a bit low at 128 potassium 3.5 bicarb is 27 BUN is 10 creatinine 0.18. Patient continues to have some vague abdominal discomfort although she had a good bowel movement yesterday. And her abdominal findings are less concerning today, she is not as tender, and she is not as distended. Will likely resume feeding again today via PEG tube. Patient was seen by neurology yesterday for her critical illness polyneuropathy/myopathy the recommendation is mostly at this point physical therapy and Occupational Therapy and recommending EMG with nerve conduction study as an outpatient. Patient was reevaluated today on 09/10/2023 remains in the ICU, intubated, mechanically ventilated. However the patient was able to tolerate at least 8 hours of pressure support/CPAP yesterday with a pressure support of 14. Patient will be given another trial of pressure support today and continue to give her these trials on a daily basis eventually cut down on the pressure support from 14 to lower pressures 12 and eventually to 8. In the meantime the patient continues to have intermittent episodes of abdominal distention her last bowel movement was 2 days ago, patient will have her PEG tube on suction today, will continue with the lactulose and with MiraLAX. For her low sodium today of 124, I am recommending 0.9 normal saline increased to 100 cc/h since we are planning to hold her feedings for the next 24 hours. Patient seems to be tolerating pressure support of 14 today well. Moving good tidal volumes in the range of 360-400 and her respiratory rate is in the teens. Overall the patient is doing well, the main 2 issues at this point are related to her profound critical illness polyneuropathy and weakness and related to failure to wean and decannulate tracheostomy, and both issues are related Progress note dated September 11, 2023. The patient is seen today in room 253. The patient has not been in the hospital for 32 days. She is currently on pressure support of 14, to be turned down to 12, and CPAP of 5. She is getting FiO2 35%. She is also receiving saline at 75 cc an hour, vital AF at 20 cc an hour, and Bactrim DS. She request some trazodone for sleep at nighttime. We will discontinue her Seroquel. Current labs include a white count of 6.1, hemoglobin 10, hematocrit 31.3, and a platelet count of 444,000. Sodium 124, potassium 3.4, chloride 93, CO2 22, BUN 6, creatinine 0.20. Calcium is 8.8. Glucose is 86. Chest x-ray shows changes of COPD. No acute process is noted. She does have a midline tracheostomy tube. Objective - Vital Signs Vital signs: Vital Signs Temp 98.4 F 09/11/23 08:00 Pulse 105 H 09/11/23 10:00 Resp 12 09/11/23 10:00 BP 130/92 09/11/23 10:00 Pulse Ox 99 09/11/23 10:00 FiO2 35 09/11/23 08:00 Intake & Output 09/10/23 09/11/23 09/11/23 18:59 06:59 18:59 Intake Total 900 900 225 Output Total 965 820 350 Balance -65 80 -125 Weight 55 kg Intake: IV 290 900 225 Sodium Chloride 0.9% 1, 290 900 225 000 ml @ 75 mls/hr IV . [id number] [facility] Rx#:[id number] Intake, IV Titration 600 Amount Sodium Chloride 0.9% 1, 600 000 ml @ 75 mls/hr IV . [id number] [facility] Rx#:[id number] Tube Feeding 10 Output: Urine 965 820 350 Other: Voiding Method Indwelling Catheter Indwelling Catheter ABP, PAP, CO, CI - Last Documented Arterial Blood Pressure 109/53 - Exam No acute distress, off sedation, with an midline tracheostomy tube. HEENT examination is grossly unremarkable. Neck supple. Full range of motion. No adenopathy thyromegaly or neck vein distention. Cardiovascular examination reveals regular rhythm rate. S1-S2 normal. No S3 or S4. No discernible murmur noted. Heart sounds are distant. Heart rate 105 bpm. Lungs reveal scattered bilateral rhonchi. No wheezes or crackles. Breath sounds equal. Saturations are 99 % Abdomen soft, with bowel sounds. No masses or tenderness. PEG tube is noted. Extremities are intact. No cyanosis clubbing or edema. Skin is without rash or lesion. Neurologic examination is much improved. - Labs CBC & Chem 7: 09/11/23 05:39 09/11/23 05:39 Labs: Abnormal Lab Results - Last 24 Hours (Table) 09/10/23 09/11/23 09/11/23 Range/Units 23:36 00:02 05:39 RBC 3.20 L (3.80-5.40) m/uL Hgb 10.0 L (11.4-16.0) gm/dL Hct 31.3 L (34.0-46.0) % Metamyelocytes # (Man) 0.31 H (0) k/uL Myelocytes # (Manual) 0.06 H (0) k/uL Sodium (137-145) mmol/L Potassium (3.5-5.1) mmol/L Chloride (98-107) mmol/L BUN (7-17) mg/dL Creatinine (0.52-1.04) mg/dL POC Glucose (mg/dL) 64 L 162 H (70-110) mg/dL 09/11/23 Range/Units 05:39 RBC (3.80-5.40) m/uL Hgb (11.4-16.0) gm/dL Hct (34.0-46.0) % Metamyelocytes # (Man) (0) k/uL Myelocytes # (Manual) (0) k/uL Sodium 124 L (137-145) mmol/L Potassium 3.4 L (3.5-5.1) mmol/L Chloride 93 L (98-107) mmol/L BUN 6 L (7-17) mg/dL Creatinine 0.20 L (0.52-1.04) mg/dL POC Glucose (mg/dL) (70-110) mg/dL Assessment and Plan Assessment: Acute exacerbation of chronic COPD, failed outpatient treatment despite being on antibiotics and steroids. The patient failed inpatient BiPAP therapy and the patient ultimately was intubated on 08/13/2023 and the patient is a tracheostomy tube insertion on 08/23/2023 for prolonged ventilator dependent respiratory audra lure. Chest x-ray remains free of any pulm pulmonary infiltrates. Prolonged respiratory failure requiring intubation and mechanical ventilation and tracheostomy tube for ongoing respiratory support. Adequate oxygenation and ventilation on today's blood gases. Chest x-ray shows no acute abnormalities and is consistent with COPD. Acute hypoxic/hypercapnic respiratory failure secondary to above, remains on mechanical ventilator for respiratory support. Advanced COPD at baseline and the patient has been maintained on Trelegy Ellipta on outpatient basis History of smoking History of HIV currently on Biktarvy. Viral count and CD4 counts are not known. No previous history of a persistent infections. The patient has not been receiving any form of antibiotic treatments such as Bactrim. Her infectious disease doctor is Dr. Salguero. The CD4 count is at 81 Enteral feeding for nutritional support and the patient was given a PEG tube Left upper lobe pulmonary nodule measuring 9 mm in size, nonspecific finding. Encephalopathy, likely drug-induced and monitoring the mental status. Intermittent abdominal distention and pain, somewhat improved. 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 Plan: Plan dated August 21, 2023. The patient has not really made any headway towards weaning and extubation. She was intubated on August 12. She has not been intubated for 9 days. Will ask surgery for tracheostomy and PEG tube placement. Patient continues on propofol, fentanyl, and Versed. She is receiving tube feedings. Blood gases have been reviewed. Labs, x-rays, and all medications are reviewed. Prognosis is guarded. We will continue to follow make recommendations along the way. Plan dated August 22, 2023. The patient's tube feeds are on hold, for anticipated tracheostomy tube placement and PEG tube placement today. The patient has a very high peak airway pressure 37 cm of water, and a plateau pressure of 20. The large peak to plateau difference, suggest increased airway resistance. Labs, x-rays, and medications are reviewed. The patient is maintained on propofol, fentanyl, and Versed. Blood gases show pO2 of 80, pCO2 of 67, and a pH of 7.42. Labs, x- rays, medications are reviewed. Prognosis is certainly guarded. We will continue to follow the patient, and make recommendations along the way. Plan dated August 23, 2023. The patient is supposed to go to the operating room today, for tracheostomy tube, and feeding tube/PEG tube. In addition, we will ask interventional radiology to place a PICC line on this patient. The patient continues on saline at 75 cc an hour, Versed at 6 mg an hour, propofol at 55 mcg/kg/min, and fentanyl at 1.5 mcg/kg/h. In addition, blood gases show pO2 of 91, pCO2 of 63, and a pH of 7.44. Labs, x-rays, and medications are reviewed. The patient's overall prognosis remains guarded. We will continue to follow the patient, and make recommendations along the way. Plan dated August 24, 2023. The patient had a tracheostomy and PEG tube placed yesterday. The patient will have a PICC line placed today. The patient continues on the ventilator. Gases show a pO2 of 76, pCO2 of 63, pH is 7.41. The patient continues on Versed 4 mg an hour, saline at 75 cc an hour, propofol at 40 mcg/kg/min, and fentanyl at 1.5 mcg/kg/h. Labs, x-rays, and medications are reviewed. We will continue to follow the patient, make recommendations along the way. Prognosis is certainly very guarded. Plan dated August 25, 2023. The patient continues on appropriate antibiotics. In addition, we will add some Ativan 1 mg every 6 hours, down the PEG tube, to see if we can get the patient off of the Versed drip. Labs, x-rays, and medications are reviewed. Blood gases are reasonable with a pO2 of 69, pCO2 of 56, pH is 7.45. The patient continues on propofol, fentanyl, and Versed. The patient is receiving tube feedings at goal. The patient is also getting saline at 75 cc an hour. The patient's overall prognosis remains very guarded. We will continue to follow and make recommendations along the way. Plan dated August 26, 2023. The patient is seen today in room 253. The patient continues on the mechanical ventilator. In addition, she continues on saline at 75 cc an hour. Throughout the night, she has been on and off of Cleviprex. Currently, the Versed has been weaned off. She continues on fentanyl at 2 mcg/kg/h. She is also getting tube feedings at goal, which is 33 cc an hour. We will add Dilaudid to the regimen, and increase the frequency of Ativan. In addition, we will convert the Solu- Medrol to prednisone. The patient does continue on Eraxis. Labs, x-rays, and medications are reviewed. The patient's overall prognosis remains very guarded. We will continue to follow and make recommendations where appropriate. Plan dated August 27, 2023. The patient is seen today in room 253. The patient continues on mechanical ventilator. The patient continues on propofol at 50 mcg/kg/min. Will start S eroquel 50 mg 3 times a day. She continues on Eraxis as per infectious diseases. We will check a chest x-ray today. In addition to the propofol, she continues on Dilaudid, and Ativan. We have been able to wean her off the Versed, and the fentanyl. She continues on tube feedings at 33 cc an hour, which is goal. Labs x-rays, and medications are reviewed. We will continue to follow make recommendations were appropriate. Prognosis is certainly guarded. Plan dated September 11, 2023. The patient appears to be doing relatively well. We will lower her pressure support from 14-12, and eventually get her down to 5 blood pressure support, and attempt trach collar tomorrow. The patient is getting saline at 75 cc an hour. Vital AF is running at 20 cc an hour. That is been on and off because of abdominal pain and distention. She continues on Bactrim DS. FiO2 is 35%. Labs, x-rays, medications are reviewed. Her Seroquel was discontinued in favor of trazodone, 100 mg, at bedtime. We will continue to follow make recommendations. Prognosis is guarded. Time with Patient: Greater than 30
[2023-09-11 12:02] LABS: Glucose,Whole Blood 106 mg/dL (70-110)
[2023-09-11 14:16] VITALS: BMI 20.1
--- NOTE | 2023-09-11 15:46 | P.PN ---
Subjective Progress Note Date: 09/11/23 CHIEF COMPLAINT: Respiratory failure HISTORY OF PRESENT ILLNESS: Patient remains in the ICU. She is status post tracheostomy and PEG tube placement. Patient is tolerating tube feeds. PHYSICAL EXAM: VITAL SIGNS: Reviewed. HEENT: Trach site clean, dry and intact ABDOMEN: PEG tube site clean dry and intact ASSESSMENT: 1. Acute hypoxic respiratory failure 2. COPD exacerbation 3. Moderate protein calorie malnutrition 4. History of HIV PLAN: -Continue supportive care Physician Printing Supervisor note has been reviewed by physician. Signing provider agrees with the documented findings, assessment, and plan of care. Objective - Vital Signs Vital signs: Vital Signs Temp 98.4 F 09/11/23 08:00 Pulse 99 09/11/23 11:58 Resp 12 09/11/23 10:00 BP 130/92 09/11/23 10:00 Pulse Ox 99 09/11/23 10:00 FiO2 35 09/11/23 11:26 Intake & Output 09/10/23 09/11/23 09/11/23 18:59 06:59 18:59 Intake Total 900 900 225 Output Total 965 820 350 Balance -65 80 -125 Weight 55 kg Intake: IV 290 900 225 Sodium Chloride 0.9% 1, 290 900 225 000 ml @ 75 mls/hr IV . [id number] [facility] Rx#:[id number] Intake, IV Titration 600 Amount Sodium Chloride 0.9% 1, 600 000 ml @ 75 mls/hr IV . [id number] [facility] Rx#:[id number] Tube Feeding 10 Output: Urine 965 820 350 Other: Voiding Method Indwelling Catheter Indwelling Catheter ABP, PAP, CO, CI - Last Documented Arterial Blood Pressure 109/53 - Labs CBC & Chem 7: 09/11/23 05:39 09/11/23 05:39 Labs: Abnormal Lab Results - Last 24 Hours (Table) 09/10/23 09/11/23 09/11/23 Range/Units 23:36 00:02 05:39 RBC 3.20 L (3.80-5.40) m/uL Hgb 10.0 L (11.4-16.0) gm/dL Hct 31.3 L (34.0-46.0) % Metamyelocytes # (Man) 0.31 H (0) k/uL Myelocytes # (Manual) 0.06 H (0) k/uL Sodium (137-145) mmol/L Potassium (3.5-5.1) mmol/L Chloride (98-107) mmol/L BUN (7-17) mg/dL Creatinine (0.52-1.04) mg/dL POC Glucose (mg/dL) 64 L 162 H (70-110) mg/dL 09/11/23 Range/Units 05:39 RBC (3.80-5.40) m/uL Hgb (11.4-16.0) gm/dL Hct (34.0-46.0) % Metamyelocytes # (Man) (0) k/uL Myelocytes # (Manual) (0) k/uL Sodium 124 L (137-145) mmol/L Potassium 3.4 L (3.5-5.1) mmol/L Chloride 93 L (98-107) mmol/L BUN 6 L (7-17) mg/dL Creatinine 0.20 L (0.52-1.04) mg/dL POC Glucose (mg/dL) (70-110) mg/dL
[2023-09-11 16:33] VITALS: TEMP 98.2
[2023-09-11 18:51] LABS: Glucose,Whole Blood 86 mg/dL (70-110)
[2023-09-11] MEDS: traZODone HCL 100 MG TAB PO SCH (21:16)
--- NOTE | 2023-09-11 21:17 | XR ---
EXAMINATION TYPE: XR chest 1V portable DATE OF EXAM: 09/11/2023 9:08 PM CLINICAL INDICATION:Female, 52 years old with history of Trach/SOB; COMPARISON: Chest radiographs from 09/10/2023 TECHNIQUE: XR chest 1V portable Frontal view of the chest. FINDINGS: Lungs/Pleura: There is no evidence of pleural effusion, focal consolidation, or pneumothorax. Pulmonary vascularity: Unremarkable. Heart/mediastinum: Cardiomediastinal silhouette is unremarkable. Musculoskeletal: No acute osseous pathology. Other findings: None Lines/Tubes: Tracheostomy cannula tip projecting over the trachea. Right-sided PICC line with distal tip at the cavoatrial junction. IMPRESSION: No acute cardiopulmonary disease/process. Right PICC line tip and Tracheostomy cannula in stable/satisfactory position.
--- NOTE | 2023-09-11 22:00 | P.PN ---
Subjective Progress Note Date: 09/10/23 Principal diagnosis: Reason for follow-up is HIV and possible pneumonia Patient is a 52-year-old female with a past medical history significant for HIV on Biktarvy, also with a history of COPD presenting to the hospital for evaluation of increasing shortness of breath patient did have worsening respiratory status got intubated, patient did have a CT angiogram of the chest that was negative for PE did shows a lung nodule did not mention any infiltrate or consolidation.Patient is status post tracheostomy completed on 08/23/2023 On today's evaluation that is 09/10/2023, Patient is afebrile patient is currently on the vent through the trach FiO2 stable at 35% no significant purulent secretions through the ET patient tolerated tube feeds no diarrhea has been reported. Patient white count is 6.9 creatinine 0.21 Objective - Vital Signs Vital signs: Vital Signs Temp 98.1 F 09/10/23 09:00 Pulse 122 H 09/10/23 09:00 Resp 18 09/10/23 09:00 BP 134/89 09/10/23 09:00 Pulse Ox 99 09/10/23 09:00 FiO2 35 09/10/23 10:48 Intake & Output 09/09/23 09/10/23 09/10/23 18:59 06:59 18:59 Intake Total 450 335 150 Output Total 695 300 75 Balance -245 35 75 Intake: IV 240 220 140 Sodium Chloride 0.9% 1, 240 220 140 000 ml @ 75 mls/hr IV . [id number] [facility] Rx#:[id number] Intake, IV Titration 100 Amount Potassium Chloride 20 meq 100 In Water For Injection 1 100ml.bag @ 50 mls/hr IVPB Q2H [facility] Rx#: [id number] Oral 100 Tube Feeding 10 85 10 Other 30 Output: Urine 695 300 75 Other: Voiding Method Indwelling Catheter Indwelling Catheter Indwelling Catheter ABP, PAP, CO, CI - Last Documented Arterial Blood Pressure 109/53 - Exam GENERAL DESCRIPTION: Middle-aged female intubated on the vent through the trach RESPIRATORY SYSTEM: Unlabored breathing , decreased breath sounds at bases HEART: S1 S2 regular rate and rhythm , ABDOMEN: Soft , no tenderness EXTREMITIES: No edema feet - Labs CBC & Chem 7: 09/11/23 05:39 09/11/23 05:39 Labs: Abnormal Lab Results - Last 24 Hours (Table) 09/10/23 09/10/23 09/10/23 Range/Units 04:20 04:20 05:25 RBC 3.24 L (3.80-5.40) m/uL Hgb 10.2 L (11.4-16.0) gm/dL Hct 31.8 L (34.0-46.0) % Sodium 124 L (137-145) mmol/L Chloride 91 L (98-107) mmol/L Creatinine 0.21 L (0.52-1.04) mg/dL Glucose 67 L (74-99) mg/dL POC Glucose (mg/dL) 68 L (70-110) mg/dL 09/10/23 Range/Units 05:52 RBC (3.80-5.40) m/uL Hgb (11.4-16.0) gm/dL Hct (34.0-46.0) % Sodium (137-145) mmol/L Chloride (98-107) mmol/L Creatinine (0.52-1.04) mg/dL Glucose (74-99) mg/dL POC Glucose (mg/dL) 143 H (70-110) mg/dL Assessment and Plan (1) Acute respiratory failure Current Visit: Yes Status: Acute Code(s): J96.00 - ACUTE RESPIRATORY FAILURE, UNSP W HYPOXIA OR HYPERCAPNIA SNOMED Code(s): 41588665 (2) HIV disease Current Visit: No Status: Acute Code(s): B20 - HUMAN IMMUNODEFICIENCY VIRUS [HIV] DISEASE SNOMED Code(s): 01794795 Plan: 1patient presented to hospital with increasing shortness of breath which is likely multifactorial in this patient who did have a history of COPD and likely COPD is a patient with a tracheobronchitis underlying pneumonia less likely but not entirely excluded 2-patient did have a CT angiogram of the chest that was negative for PE did not show any evidence of pneumonia or interstitial infiltrate 3-patient did have a penicillin allergy that will limit the number of antibiotics safe to use 4-patient to continue with Biktarvy for HIV, Bactrim DS for PCP prophylaxis, the patient HIV viral load is undetectable 5-patient sputum is growing Rimma which is likely colonization however the patient did have worsening of the white count could be component of oropharyngeal candidiasis, for the patient received adequate antifungal therapy and is currently being monitored closely off antibiotic as well as antifungal therapy Dictation was produced using [employer] dictation software. please excuse any grammatical, word or spelling errors. Time with Patient: Less than 30
--- NOTE | 2023-09-11 22:03 | P.PN ---
Subjective Progress Note Date: 09/11/23 Principal diagnosis: Reason for follow-up is HIV and possible pneumonia Patient is a 52-year-old female with a past medical history significant for HIV on Biktarvy, also with a history of COPD presenting to the hospital for evaluation of increasing shortness of breath patient did have worsening respiratory status got intubated, patient did have a CT angiogram of the chest that was negative for PE did shows a lung nodule did not mention any infiltrate or consolidation.Patient is status post tracheostomy completed on 08/23/2023 On today's evaluation that is 09/11/2023, patient has been afebrile, patient is breathing comfortably and is currently on the vent through the trach FiO2 of 35% the patient is awake and alert and answer simple question denies any chest pain or worsening cough no vomiting or diarrhea has been reported. Patient did have white count 6.1, creatinine 0.20 Objective - Vital Signs Vital signs: Vital Signs Temp 98.4 F 09/11/23 08:00 Pulse 99 09/11/23 11:58 Resp 12 09/11/23 10:00 BP 130/92 09/11/23 10:00 Pulse Ox 99 09/11/23 10:00 FiO2 35 09/11/23 11:26 Intake & Output 09/10/23 09/11/23 09/11/23 18:59 06:59 18:59 Intake Total 900 900 225 Output Total 965 820 350 Balance -65 80 -125 Weight 55 kg Intake: IV 290 900 225 Sodium Chloride 0.9% 1, 290 900 225 000 ml @ 75 mls/hr IV . [id number] [facility] Rx#:[id number] Intake, IV Titration 600 Amount Sodium Chloride 0.9% 1, 600 000 ml @ 75 mls/hr IV . [id number] [facility] Rx#:[id number] Tube Feeding 10 Output: Urine 965 820 350 Other: Voiding Method Indwelling Catheter Indwelling Catheter ABP, PAP, CO, CI - Last Documented Arterial Blood Pressure 109/53 - Exam GENERAL DESCRIPTION: Middle-aged female intubated on the vent through the trach RESPIRATORY SYSTEM: Unlabored breathing , decreased breath sounds at bases HEART: S1 S2 regular rate and rhythm , ABDOMEN: Soft , no tenderness EXTREMITIES: No edema feet - Labs CBC & Chem 7: 09/11/23 05:39 09/11/23 05:39 Labs: Abnormal Lab Results - Last 24 Hours (Table) 09/10/23 09/11/23 09/11/23 Range/Units 23:36 00:02 05:39 RBC 3.20 L (3.80-5.40) m/uL Hgb 10.0 L (11.4-16.0) gm/dL Hct 31.3 L (34.0-46.0) % Metamyelocytes # (Man) 0.31 H (0) k/uL Myelocytes # (Manual) 0.06 H (0) k/uL Sodium (137-145) mmol/L Potassium (3.5-5.1) mmol/L Chloride (98-107) mmol/L BUN (7-17) mg/dL Creatinine (0.52-1.04) mg/dL POC Glucose (mg/dL) 64 L 162 H (70-110) mg/dL 09/11/23 Range/Units 05:39 RBC (3.80-5.40) m/uL Hgb (11.4-16.0) gm/dL Hct (34.0-46.0) % Metamyelocytes # (Man) (0) k/uL Myelocytes # (Manual) (0) k/uL Sodium 124 L (137-145) mmol/L Potassium 3.4 L (3.5-5.1) mmol/L Chloride 93 L (98-107) mmol/L BUN 6 L (7-17) mg/dL Creatinine 0.20 L (0.52-1.04) mg/dL POC Glucose (mg/dL) (70-110) mg/dL Assessment and Plan (1) Acute respiratory failure Current Visit: Yes Status: Acute Code(s): J96.00 - ACUTE RESPIRATORY FAILURE, UNSP W HYPOXIA OR HYPERCAPNIA SNOMED Code(s): 38188728 (2) HIV disease Current Visit: No Status: Acute Code(s): B20 - HUMAN IMMUNODEFICIENCY VIRUS [HIV] DISEASE SNOMED Code(s): 44625562 Plan: 1patient presented to hospital with increasing shortness of breath which is likely multifactorial in this patient who did have a history of COPD and likely COPD is a patient with a tracheobronchitis underlying pneumonia less likely but not entirely excluded 2-patient did have a CT angiogram of the chest that was negative for PE did not show any evidence of pneumonia or interstitial infiltrate 3-patient did have a penicillin allergy that will limit the number of antibiotics safe to use 4--patient sputum is growing Rimma which is likely colonization however the patient did have worsening of the white count could be component of oropharyngeal candidiasis, for the patient received adequate antifungal therapy and is currently being monitored closely off antibiotic as well as antifungal therapy 5-patient with HIV viral load undetectable patient to continue with the Biktarvy along with the Bactrim DS and the prescription for Biktarvy has been sent to the pharmacy so the patient can continue with her medication on transfer to [facility] Dictation was produced using [employer]ü dictation software. please excuse any grammatical, word or spelling errors. Time with Patient: Less than 30
[2023-09-12 06:17] LABS: Glucose,Whole Blood 80 mg/dL (70-110)
[2023-09-12 07:39] LABS: HCT 30.5 % (34.0-46.0); HGB 9.7 gm/dL (11.4-16.0); MCHC 31.9 g/dL (31.0-37.0); MCV 97.4 fL (80.0-100.0); Platelet Count 516 k/uL (150-450); RBC 3.13 m/uL (3.80-5.40); RDW 13.2 % (11.5-15.5); WBC 5.6 k/uL (3.8-10.6)
[2023-09-12 08:26] LABS: African American GFR (CKD) >90 (>60 ml/min/1.73 sqM); Anion Gap 5 mmol/L; Blood Urea Nitrogen 3 mg/dL (7-17); Calcium 8.8 mg/dL (8.4-10.2); Carbon Dioxide 27 mmol/L (22-30); Chloride 100 mmol/L (98-107); Glucose 76 mg/dL (74-99); Non-African American GFR(CKD) >90 (>60 ml/min/1.73 sqM); Potassium 3.6 mmol/L (3.5-5.1); Sodium 132 mmol/L (137-145)
[2023-09-12 08:41] LABS: Band Neutrophils % 6 %; Eosinophils # (M) 0.06 k/uL (0-0.7); Metamyelocytes # (M) 0.22 k/uL (0); Metamyelocytes % 4 %; Monocytes # (M) 0.84 k/uL (0-1.0); Myelocytes # (M) 0.17 k/uL (0); Myelocytes % 3 %; Neutrophils % (M) 47 %; Nucleated Red Blood Cells 0 /100 WBC (0-0); Total Cells Counted 200
--- NOTE | 2023-09-12 09:39 | P.PN ---
Subjective 52-year-old female who initially came into the hospital due to difficulty breathing and cough. Patient was found to have significant COPD exacerbation and required intubation. She continues in the intensive care unit she is on the mechanical ventilator with an FiO2 of 35% with a PEEP of 5. She is currently on an IV Versed and IV fentanyl infusion as well as IV Solu-Medrol. She is currently sedated with propofol. patient is maintained on Biktarvy also for history of HIV. On enteral feedings. Chest x-ray today shows improved aeration of the lung bases. Labs today reveal a white blood cell count of 11.6, sodium 133, BUN of 23, creatinine of 0.29. Her glucose is in the 120s to 130s range. CO2 of 40. Sputum culture was found to be positive for Rimma. She is being considered for trach and PEG tube placement. 08/22/2023 Patient evaluated in follow up today in the ICU. Remains on the mechanical ventilator with FiO2 of 35% and PEEP of 5. Patient is scheduled for PEG/Trach placement today. Remains on IV fentanyl, IV versed, IV propofol, IV solumedrol. Patient is being hydrated with normal saline. Chest xray today shows no focal infiltrates. 08/23/2023 Patient remains in the intensive care unit. [facility] Patient underwent trach and PEG tube placement today. Remains on IV fentanyl, IV versed, IV propofol, IV solumedrol. Patient remains on Biktarvy. Unable to be considered for rehab or select specialty at this time due to the cost of the Biktarvy medication which will need to be continued at this time. White blood cell count today 13.4, sodium 136, BUN 19, creatinine 0.30. CO2 level 42. Blood glucose 170. 08/24/2023 Patient is evaluated today in the ICU. Patient is postoperative trach and peg tube placement. Remains on mechanical ventilator with FiO2 of 35% and PEEP of 5. Currently on IV fentanyl, IV versed, IV propofol and remains on high dose IV solumedrol. Sputum culture was positive for rimma patient is having worsening WBC today is 15k and ID has recommended to start the patient on IV anidulafungin. Patient is being hydrated with normal saline running at 75 m ls/hr. Tube feedings were placed on hold for the PEG tube placement and are to be resumed today. 08/25/2023 Patient evaluated today in the ICU, patient remains on the mechanical ventilator. White blood cell count up to 16.9. Continues on IV anidulafungin. Chest xray today reveals chronic changes without acute cardiopulmonary disease. Patient on IV precedex, IV fentanyl, IV versed, IV propofol. Remains on normal saline. Continues on high dose IV solumedrol. Resumed on enteral feedings. 08/26/2023 Patient seen in follow-up continues to be in the ICU with multiple medical consultations following. Patient remains on mechanical ventilation with an FiO2 of 35%. Patient is currently weaned off Cleviprex and continues on fentanyl. Patient also maintained on antifungal with infectious disease following. Tube feedings at goal and patient is tolerating. Patient is afebrile although white count continues to remain elevated, possibly steroid effect and patient is being transition to oral prednisone. Continue with breathing inhalational treatments and follow-up on chest x-ray. 08/27/23 : Patient seen and evaluated in medical ICU vitals reviewed, blood work reviewed WBC 14.3, arterial blood gas reviewed pH 7.43/pCO2 60/pO2 79/serum chemistry sodium 136 BUN 19 creatinine 0.33 calcium of 7.4 08/28/23: Patient seen and evaluated at bedside, patient remains on ventilator through trach, vitals reviewed, FiO2 35% and arterial blood gas reviewed, serum chemistry showed sodium 135 creatinine 0.17 calcium of 7.4 blood glucose of 77, continue antifungal, infectious disease following. Patient transition to Precedex, propofol weaned off 08/29/23: Patient seen and evaluated bedside, planning to wean off ventilator, serial ABGs obtained, spontaneous breathing trial done, serum chemistry reviewed sodium 133, carbon dioxide 38, arterial blood gas shows metabolic alkalosis with respiratory compensation, continue management and medical ICU. 08/30/2023 Patient is a sleepy, she was still on Precedex when seen in the morning Tracheostomy on mechanical ventilation, PEEP of 5 and FiO2 of 35% Blood pressure is 81/35, heart rate 92 Patient has Ortiz catheter with clear yellow urine. Fecal management system. Mild leukocytosis of 12.9 Sputum culture growing Rimma, patient currently on Eraxis and nystatin Also on prednisone 40 mg for her severe COPD seen on CT of the chest Patient also on HIV treatment and normal saline 75 mL/h 08/31/2023 Patient s/p tracheostomy, patient nonverbal today but she open her eyes spontaneously after stopping Precedex yesterday. She able to follow simple commands slowly for example opening her mouth. Other exam is restricted. Patient is still generally weak She is still treated for her pneumonia and COPD exacerbation with Eraxis for culture positive for Rimma and also she is on prednisone 40 mg taper She is to receive HIV medication which is her home medication no other new complaint Plan to discharge to select with pulmonary team recommendation will follow closely for her pneumonia and respiratory failure other medical problem 09/01/2023 Patient today is awake and interactive however nonverbal because of the tracheostomy. 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 We will check creatinine kinase tomorrow She remains on Eraxis and nystatin orally. Prednisone dose lowered to 20 mg today and WBC came back to normal at 9.7. Hemoglobin stable. She remains for HIV treatment I am resuming the care of the patient on 09/11/2023 Fully awake and oriented, able to communicate through hands and lips Patient mentation significantly improved compared to last time, she is sitting up in bed She denies pain or any specific complaint Tracheostomy in place Objective - Vital Signs Vital signs: Vital Signs Temp 98.2 F 09/11/23 16:00 Pulse 100 09/11/23 22:00 Resp 18 09/11/23 22:00 BP 144/86 09/11/23 22:00 Pulse Ox 98 09/11/23 22:00 FiO2 35 09/11/23 20:00 Intake & Output 09/11/23 09/11/23 09/12/23 06:59 18:59 06:59 Intake Total 900 1025 345 Output Total 820 910 265 Balance 80 115 80 Weight 55 kg 55 kg Intake: IV 900 825 225 Sodium Chloride 0.9% 1, 900 825 225 000 ml @ 75 mls/hr IV . [id number] [facility] Rx#:[id number] Tube Feeding 200 90 Other 30 Output: Urine 820 910 265 Other: Voiding Method Indwelling Catheter Indwelling Catheter ABP, PAP, CO, CI - Last Documented Arterial Blood Pressure 109/53 - Exam -GENERAL: The patient is sleepy HEENT: Pupils are round and equally reacting to light. EOMI. No scleral icterus. No conjunctival pallor. Normocephalic, atraumatic. No pharyngeal erythema. No thyromegaly. CARDIOVASCULAR: S1 and S2 present. No murmurs, rubs, or gallops. -PULMONARY: Chest is clear to auscultation, no wheezing , no crackles. S/p trach collar, on mechanical ventilation ABDOMEN: Soft, nontender, nondistended, normoactive bowel sounds. No palpable organomegaly. MUSCULOSKELETAL: No joint swelling or deformity. EXTREMITIES: No cyanosis, clubbing, or pedal edema. NEUROLOGICAL: Gross neurological examination did not reveal any focal deficits. SKIN: No rashes. no petechiae. - Labs CBC & Chem 7: 09/11/23 05:39 09/11/23 05:39 Labs: Abnormal Lab Results - Last 24 Hours (Table) 09/10/23 09/11/23 09/11/23 Range/Units 23:36 00:02 05:39 RBC 3.20 L (3.80-5.40) m/uL Hgb 10.0 L (11.4-16.0) gm/dL Hct 31.3 L (34.0-46.0) % Metamyelocytes # (Man) 0.31 H (0) k/uL Myelocytes # (Manual) 0.06 H (0) k/uL Sodium (137-145) mmol/L Potassium (3.5-5.1) mmol/L Chloride (98-107) mmol/L BUN (7-17) mg/dL Creatinine (0.52-1.04) mg/dL POC Glucose (mg/dL) 64 L 162 H (70-110) mg/dL 09/11/23 Range/Units 05:39 RBC (3.80-5.40) m/uL Hgb (11.4-16.0) gm/dL Hct (34.0-46.0) % Metamyelocytes # (Man) (0) k/uL Myelocytes # (Manual) (0) k/uL Sodium 124 L (137-145) mmol/L Potassium 3.4 L (3.5-5.1) mmol/L Chloride 93 L (98-107) mmol/L BUN 6 L (7-17) mg/dL Creatinine 0.20 L (0.52-1.04) mg/dL POC Glucose (mg/dL) (70-110) mg/dL Microbiology - Last 24 Hours (Table) 08/13/23 13:30 Acid Fast Bacilli Smear - Preliminary Sputum Acid Fast Bacilli Culture - Preliminary Assessment and Plan Assessment: * Acute hypoxemic hypercapnic respiratory failure requiring intubation on 08/12 status post PEG tube and tracheostomy placement, S/p tracheostomy * Acute exacerbation of COPD * metabolic toxic encephalopathy * Patient with right inferior temporal infarct * Multifocal pneumonia, with Rimma albicans * Left upper lobe nodule , spiculated ,require PET scan at a later stage * HIV currently on Biktarvy. Viral count and CD4 counts are not known. No previous history of a persistent infections. The patient has not been receiving any form of antibiotic treatments such as Bactrim. Her infectious disease doctor is Dr. Salguero. The CD4 count is at 81 * Moderate protein calorie malnutrition * Chronic nicotine use Plan: Patient remains on mechanical ventilation with pulmonary/critical care team on the case Patient currently is awake Remains on antifungal treatment with Eraxis and nystatin Continue with prednisone 20 mg HIV treatment biktravy Pulmonary, infectious disease and general surgery team on the case Labs and medication were reviewed.. Monitor labs and vitals. DVT and GI prophylaxis. Further recommendations as per clinical course of the patient DVT prophylaxis: Subcutaneous Lovenoxheparin GI Prophylaxis: Pepcid Prognosis is guarded
--- NOTE | 2023-09-12 09:56 | P.DS ---
Providers Date of admission: 08/10/23 14:33 Attending physician: Kendall Irving MD Consults: 08/10/23 14:31 Consult Physician Routine Consulting Provider: Patti Portillo Consult Reason/Comments: copd, bipap Do you want consulting provider notified?: Yes 08/14/23 09:16 Consult Physician Routine Consulting Provider: Tushar Zaragoza Consult Reason/Comments: HIV, respiratory failure Do you want consulting provider notified?: Yes 08/21/23 15:07 Consult Physician Routine Consulting Provider: Rocco Chiu Consult Reason/Comments: trach and peg insertion Do you want consulting provider notified?: Already Contacted 09/08/23 09:04 Consult Physician Routine Consulting Provider: Davin Pro Consult Reason/Comments: Critical illness polymyopathy Do you want consulting provider notified?: Yes 09/08/23 11:24 Consult Physician Routine Consulting Provider: Steve Pro Consult Reason/Comments: foot drop Do you want consulting provider notified?: Already Contacted Primary care physician: Francisco Harvey Hospital Course: Discharge diagnoses: * Acute hypoxemic hypercapnic respiratory failure requiring intubation on 08/12 status post PEG tube and tracheostomy placement, S/p tracheostomy. Patient currently is vent dependent respiratory failure * Acute exacerbation of COPD with moderate to severe emphysema. Improved. Currently on steroids * metabolic toxic encephalopathy. Resolved and patient back to baseline * Patient with right inferior temporal infarct. Neurologist evaluated the patient and recommended MRI to differentiate stroke versus HIV infection, * * Left upper lobe nodule , spiculated ,require PET scan at a later stage * HIV currently on Biktarvy. Viral count and CD4 counts are not known. No previous history of a persistent infections. The patient has not been receiving any form of antibiotic treatments such as Bactrim. Her infectious disease doctor is Dr. Salguero. The CD4 count is at 81 * Moderate protein calorie malnutrition * Chronic nicotine use Hospital course: 52-year-old female who initially came into the hospital due to difficulty breathing and cough. Patient was found to have significant COPD exacerbation . Patient was treated in the ICU after she failed BiPAP and she was to be intubated on 08/12 and switch to tracheostomy on 08/22 patient was followed closely by pulmonary/critical care team and general surgery team. Also patient evaluated by neurologist and infectious disease team. Patient currently vent dependent respiratory failure, she is s/p tracheostomy and PEG tube placement. Her mentation was confused however improved with time. Currently she is awake alert and able to communicate through hand and lips, she cannot make sounds. She denies pain or specific complaint. No chest pain or send significant tachypnea. Abdomen looks soft and no urinary complaint. Patient is hemodynamically stable Patient evaluated by infectious disease team for her history of HIV, patient was on HIV medication Biktarvy at home which is continued here. Bactrim added to the regimen by infectious disease. Her infectious disease specialist in the outpatient setting is Dr. Salguero Neurologist also evaluated the patient and recommended MRI of the brain to assess whether her lesion reported on the CT is truly an old stroke versus a lesion from her immunosuppression leading to LELA virus possibly and leading into PML. Patient currently kept on normal saline 75 mL/h. She requiring IV Dilaudid once or twice a day and 0.5 mg. Also she received an empty emetic mastication. PEG tube was running. Patient was cleared for discharge by all consultants including pulmonary team infectious disease and general surgery team and neurologist Patient will be discharged to problems and management plan were discussed with the patient and he verbalized understanding and acceptance Patient was found stable and can be discharged home in guarded prognosis however he needs follow-up as an outpatient. Patient was instructed to follow up with PCP within one week and patient agrees Also patient is recommended to follow-up with her infectious disease, mechanic's assistant and neurologist as an outpatient Patient is going to [facility] Physical exam Gen: patient is a AAOx3, no distress. S/p tracheostomy and PEG tube in place CVS: S1-S2, RRR, no murmur Lungs: B/L CTA, no wheezing Abdomen: soft, no distention, no tenderness, positive bowel sounds Extremity: no leg edema or induration Time spent more than 35 minutes Patient Condition at Discharge: Serious Plan - Discharge Summary Discharge Rx Participant: Yes New Discharge Prescriptions: New Docusate Oral Soln [Colace Oral Soln] 100 mg PO DAILY PRN ml PRN Reason: Constipation Enoxaparin [Lovenox] 40 mg SQ DAILY each Magnesium Hydroxide [Milk of Magnesia] 2,400 mg PO BID PRN ml PRN Reason: Constipation INSULIN ASPART (NovoLOG) [NovoLOG (formulary)] 0 unit SQ Q6HR each predniSONE 10 mg PO DAILY tab Pantoprazole [Protonix] 40 mg PEG/G-TUBE DAILY #30 tab Sulfamethox-Tmp 800-160Mg [Bactrim DS 800-160 mg] 1 tab PO DAILY #30 tab Bictegrav/Emtricit/Tenofov Ala [Biktarvy 50-200-25 mg Tablet] 1 each PO DAILY 6 Days #30 tab busPIRone HCl [Buspar] 30 mg PO BID tab Lactulose [Cephulac] 20 gm PO BID PRN ml PRN Reason: Constipation Metoprolol Tartrate [Lopressor] 12.5 mg PO BID tab Continue Albuterol Sulfate [Albuterol Sulfate Hfa] 2 puff PO RT-Q4H PRN PRN Reason: Shortness Of Breath Sertraline [Zoloft] 50 mg PO DAILY Ipratropium-Albuterol Nebulize [Duoneb 0.5 mg-3 mg/3 ml Soln] 3 ml INHALATION RT-Q6H PRN PRN Reason: Shortness Of Breath Fluticasone/Umeclidin/Vilanter [Trelegy Ellipta 200-62.5-25] 1 puff INHALATION RT-DAILY traZODone HCL [Desyrel] 100 mg PO HS Bictegrav/Emtricit/Tenofov Ala [Biktarvy 50-200-25 mg Tablet] 1 tab PO DAILY Discharge Medication List Albuterol Sulfate [Albuterol Sulfate Hfa] 2 puff PO RT-Q4H PRN 03/14/22 [History] Bictegrav/Emtricit/Tenofov Ala [Biktarvy 50-200-25 mg Tablet] 1 tab PO DAILY 08/10/23 [History] Fluticasone/Umeclidin/Vilanter [Trelegy Ellipta 200-62.5-25] 1 puff INHALATION RT-DAILY 08/10/23 [History] Ipratropium-Albuterol Nebulize [Duoneb 0.5 mg-3 mg/3 ml Soln] 3 ml INHALATION RT-Q6H PRN 08/10/23 [History] Sertraline [Zoloft] 50 mg PO DAILY 08/10/23 [History] traZODone HCL [Desyrel] 100 mg PO HS 08/10/23 [History] Sulfamethox-Tmp 800-160Mg [Bactrim DS 800-160 mg] 1 tab PO DAILY #30 tab 09/04/23 [Rx] Bictegrav/Emtricit/Tenofov Ala [Biktarvy 50-200-25 mg Tablet] 1 each PO DAILY 6 Days #30 tab 09/11/23 [Rx] Docusate Oral Soln [Colace Oral Soln] 100 mg PO DAILY PRN ml 09/12/23 [Rx] Enoxaparin [Lovenox] 40 mg SQ DAILY each 09/12/23 [Rx] INSULIN ASPART (NovoLOG) [NovoLOG (formulary)] 0 unit SQ Q6HR each 09/12/23 [Rx] Lactulose [Cephulac] 20 gm PO BID PRN ml 09/12/23 [Rx] Magnesium Hydroxide [Milk of Magnesia] 2,400 mg PO BID PRN ml 09/12/23 [Rx] Metoprolol Tartrate [Lopressor] 12.5 mg PO BID tab 09/12/23 [Rx] Pantoprazole [Protonix] 40 mg PEG/G-TUBE DAILY #30 tab 09/12/23 [Rx] busPIRone HCl [Buspar] 30 mg PO BID tab 09/12/23 [Rx] predniSONE 10 mg PO DAILY tab 09/12/23 [Rx] Follow up Appointment(s)/Referral(s): Marlene Elizondo NPC [REFERRING] - 1-2 days Tushar Zaragoza MD [STAFF PHYSICIAN] - 4 Weeks Activity/Diet/Wound Care/Special Instructions: [employer] Appeal has been approved. Discharge to [facility] in [place] on 09/12/23
--- NOTE | 2023-09-12 10:50 | P.PN ---
Subjective Progress Note Date: 09/12/23 Principal diagnosis: Respiratory failure. Patient was elevated today on 08/16/2023, remains in the ICU, intubated and mechanically ventilated. Remains on assist-control rate of 18 tidal volume 350 FiO2 35% PEEP of 5 ABG showed a pO2 of 103 pCO2 68 pH of 7.31, hence no changes were made in vent settings. Patient continues to have relatively high peak airway pressures in the high 30s. Continues to be tight and seems to have poor air exchange. Yesterday the patient was given a trial off Nimbex, however could not tolerate going off Nimbex in spite of using propofol fentanyl and Versed. Patient had to go back on Nimbex yesterday because of extreme agitation and she was not synchronous with the ventilator, noted to be tachypneic, tachycardic, and she was bucking the ventilator. Not to mention she was developing significantly high airway pressure. Today the patient is back on Nimbex at 2 mcg/kg/min Fentanyl 1 mcg/kg/h propofol 60 mcg/kg/min she is receiving vital AF she is also 1.9 normal saline at 75 cc/h. Remains on antibiotics in the form of Levaquin and cefepime. Her cultures have been negative including BAL culture, she did have Rimma, doubt any significance, I infectious disease is addressing. Considering what I have noted yesterday when the patient was off Nimbex, and considering her overall clinical condition today, I have no plans to discontinue discontinue Nimbex today. Will continue with the present cocktail sedation including Nimbex fentanyl and propofol, and will continue mechanical ventilation without any major change. Also continue antibiotics. And bronchodilators as well as IV Solu-Medrol. Reevaluate today on 08/17/2023, patient remains in the ICU, intubated and mechanically ventilated. Remains on assist-control rate of 18 tidal volume 350 FiO2 35% and PEEP of 5 ABG showed a pO2 of 102 pCO2 65 pH of 7.33. Chest x-ray continues to show no evidence of any active process. Patient remains on propofol at 60 mcg/kg/min, Nimbex at 2 mcg/kg/min Fentanyl at 1 mcg/kg/h patient is receiving vital AF at she is remains on cefepime and Levaquin as per ID on the case. Today I plan to discontinue Nimbex and see if we could control patient's agitation adequately will fentanyl propofol and Versed if needed. Have tried in the past doing this, could not ventilate the patient without having to use Nimbex. However will try again to discontinue Nimbex and try to manage the patient with fentanyl propofol and Versed if possible. Otherwise I will place her back on Nimbex. Patient is hemodynamically stable, she is not requiring any pressors. She is receiving antibiotics is also receiving enteral feeding, and she is on GI and DVT prophylaxis. Reevaluate today on 08/18/2023, patient remains in the ICU, intubated and mechanically ventilated, on assist-control rate of 18 tidal volume 350 FiO2 35% PEEP of 5 ABG showed a pO2 of 85 pCO2 66 pH of 7.35 hence no changes were made in ventilator settings. Patient remains on fentanyl at 2 mcg/kg/h, Versed 4 mg/h propofol at 70 mcg/kg/min she is off Nimbex now for the last 24 hours, and able to control patient with sedation as such. Patient is on vital AF , the plan is to cut down her propofol to 50 and increase her Versed if needed. No plans to wean and extubate today, however will start possibly attempting sedation holidays beginning tomorrow. Chest x-ray continues to show no evidence of active disease. WBC count is 5.9 hemoglobin is 11.9 basic metabolic profile is normal renal profile is normal Patient was reevaluated today on 08/19/2023, remains in the ICU, intubated and mechanically ventilated, presently on assist-control rate of 18 tidal volume 350 FiO2 35% PEEP of 5 ABG showed a pO2 of 84 pCO2 68 pH of 7.35. Patient is close most likely to her baseline pCO2 in the 60s. Patient is on enteral feeding/vital HP she is also on propofol at 15 but the plan to increase up to 50 and discontinue Versed which is 3 mg/h at present patient is also on fentanyl 1 mcg/kg/h and an IV fluid at 75 cc/h in the form of saline. I am planning today to hold sedation, and assess mental status, but I am not planning to proceed to extubation. Her overall pulmonary status remains marginal at best, chest x-ray showed COPD but no evidence of pneumonia. WBC count is normal 7.3 hemoglobin is 11.9 basic metabolic profile is normal bicarb is 36 renal profile is normal Patient evaluated today on 08/20/2023, remains in the ICU, intubated and mechanically ventilated. Patient was given sedation holiday yesterday and early this morning, she gets extremely restless agitated, she was able to wiggle toes only, could not get any other responses on lower doses of sedation. However considering the patient is quite hypertensive off sedation, considering that the patient is definitely not ready for any form of weaning, the plan is to place back on fentanyl at 1 mcg/kg/h propofol will be increased back to 50 mcg/kg/min and will use Versed if necessary presently Versed is on hold. She is on 0.9 normal saline at 75 cc/h she is on Cleviprex at 13 mg/h patient is remains on antibiotics/Levaquin. Patient is developing a minimal patchy opacity in the right lower lobe which was not present previously, she is definitely a good set up for developing pneumonia. Ventilator settings today are assist-control rate of 18 tidal volume 350 FiO2 35% PEEP of 5 ABG showed a pO2 of 71 pCO2 68 pH of 7.40 hence no changes were made in vent settings. WBC count is 10.1 hemoglobin is 12 basic metabolic profile is normal except bicarb of 39 BUN is 33 creatinine 0.3 Progress note dated August 21, 2023. This is a 52-year-old female who was admitted on August 09. She came in with COPD exacerbation, and was intubated on August 12. She remains on the ventilator. She is on volume assist-control, rate 18, tidal volume 350, FiO2 35%, and PEEP of 5. Blood gases show pO2 of 63, pCO2 of 70, pH is 7.40. She continues on propofol at 40 mcg/kg/min, fentanyl at 1.5 mcg/kg/h, and Versed at 3 mg an hour. She is getting saline at 75 cc an hour, and vital AF at goal, which is 21 cc an hour. Because she has not made any headway towards weaning and extubation, we will ask surgery for tracheostomy and PEG tube placement. Current laboratory includes a white count 11.6, hemoglobin 12.2, hematocrit 38.3, and a normal platelet count. Sodium 133, potassium 4.1, chloride 95, CO2 40, BUN 23, and creatinine 0.29. Calcium 7.7. Sputum and bronchial washings were positive only for Rimma albicans. Chest x-ray shows improved aeration at the lung bases. Progress note dated August 22, 2023. This is a 52-year-old female who was admitted on August 09. She came in with COPD exacerbation, and was intubated on August 12. She remains on the ventilator. The patient's ventilator settings include volume assist-control, rate 18, tidal volume 350, FiO2 35%, and PEEP of 5. Blood gases show pO2 of 80, pCO2 of 67, pH is 7.42. The patient is getting saline at 75 cc an hour, propofol at 55 mcg/kg/min, fentanyl at 1.5 mcg/kg/h, Versed at 6 mg an hour, and tube feedings are on hold, for possible tracheostomy and PEG tube placement today. The patient's peak airway pressures 37, with a plateau pressure of 20. White count of 10.7, hemoglobin 11.6, hematocrit 37, and platelet count was normal. Sodium 135, potassium 4.5, chlorides 97, CO2 36, BUN 25, and creatinine is 0.36. Glucose is 136. Magnesium 2.4. Calcium 7.9. Chest x-ray shows no changes, compared to the prior chest x-ray. Progress note dated August 23, 2023. 52-year-old female admitted on August 09. She was admitted with a diagnosis of COPD exacerbation, and was intubated on August 12. She remains on the ventilator. Hopefully, today she will go for a tracheostomy, and PEG tube placement. She remains on the ventilator, with settings of volume assist- control, rate 18, tidal volume 350, FiO2 35%, and PEEP of 5. Blood gases show pO2 of 91, pCO2 of 63, pH is 7.44. The patient continues on saline at 75 cc an hour, Versed drip at 6 mg an hour, propofol at 55 mcg/kg/min, and fentanyl at 1.5 mcg/kg/h. Tube feeds are on hold. Will also ask for a PICC line, from interventional radiology. Currently, white count 13.4, globin 12, hematocrit 37.4, and platelet count 230,000. Sodium 136, potassium 4.1, chlorides 100, CO2 42, BUN 19, creatinine 0.30. Calcium is 8.1. Glucose is 128. Sputum, and bronchoscopy washings, does show evidence of Rimma albicans. Chest x-ray shows no definite focal consolidations. Progress note dated August 24, 2023. 52-year-old female admitted on August 09. She was admitted with a diagnosis of COPD exacerbation, and was intubated on August 12. She remains on the ventilator. The patient underwent a tracheostomy and PEG tube placement yesterday. She will have a PICC line placed today, i.e. August 23. Current ventilator settings include volume assist-control, rate 18, tidal volume 350, FiO2 35%, PEEP of 5. Blood gases show pO2 of 76, pCO2 of 63, pH is 7.41. The patient continues on Versed at 4 mg an hour, saline at 75 cc an hour, propofol at 40 mcg/kg/min, and fentanyl at 1.5 mcg/kg/h. Current white count 15, hemoglobin 12.2, hematocrit 37.5, and platelet count was normal. Sodium 136, potassium 4.2, chlorides 102, CO2 34, BUN 26, and creatinine 0.28. Glucose is 111. Albumin is 2.6 calcium 8.0. Chest x-ray is largely unchanged. Progress note dated August 25, 2023. 52-year-old female admitted on August 09, with a diagnosis of COPD exacerbation. The patient was intubated on August 12, for respiratory failure. The patient had a tracheostomy tube placed and PEG tube placed, on August 22. She remains on the mechanical ventilator. She is on volume assist-control, rate 18, tidal volume 350, FiO2 35%, PEEP of 5. Blood gases show pO2 of 69, pCO2 of 56, pH is 7.45. The patient is getting saline at 75 cc an hour, Cleveprex is currently off. The patient is also receiving propofol at 50 mcg/kg/min, and fentanyl at 2 mcg/kg/h. In addition, the patient is receiving Versed at 5 mg an hour, and vital, at goal, which is 33 cc an hour. White count is 16.9, hemoglobin 13.7, hematocrit 43, platelet count 233,000. Sodium 136, potassium 4, chlorides 100, CO2 37, BUN 24, creatinine 0.27. Glucose is 91. Calcium is 8. Microbiologic sampling is revealing evidence of Rimma albicans, in sputum, and bronchial washings. The patient's chest x-ray is mostly unchanged. Chronic changes are noted bilaterally. Progress note dated August 26, 2023. The patient is seen today in room 253. She remains on the mechanical ventilator. She is on volume assist-control, rate 18, tidal volume 350, FiO2 35%, PEEP of 5. Blood gases show pO2 74, pCO2 57, pH is 7.46. He is getting saline at 75 cc an hour, she has been on and off of Cleviprex. Currently, Versed is off. The patient continues on fentanyl at 2 mcg/kg/h, and vital AF at 33 cc an hour, which is goal. In addition, the patient's Solu-Medrol was converted to prednisone 40 mg a day. We will add Dilaudid, increase the Ativan frequency, and the patient continues on her antifungal, i.e. Eraxis. White count is 17.7, hemoglobin 12.9, hematocrit 41.4, and platelet count 238,000. Sodium 135, potassium 4, chloride 99, CO2 38, BUN 21, and creatinine 0.25. Magnesium is 2.4. Calcium 7.7. Glucose 148. The patient's chest x-ray is largely unchanged. Progress note dated August 27, 2023. The patient is again seen today in the intensive care unit, room 253. She remains on the volume assist-control mode, rate 18, tidal volume 350, FiO2 35%, PEEP of 5. Blood gases show pO2 79, pCO2 of 60, pH 7.43. The patient is getting saline at 75 cc an hour, propofol at 50 mcg/kg/min, and vital AF at goal, which is 33 cc an hour. White count 14.3, hemoglobin 12.4, hematocrit 39.4, and platelet count normal. Sodium 136, potassium 3.8, chlorides 100, CO2 36, BUN 19, and creatinine 0.33. Glucose is 106. Microbiologic sampling has always been negative, save for Rimma albicans. The patient does continue on a Eraxis. The patient's chest x-ray is largely unchanged. On today's evaluation of 08/28/2023, the patient is being seen for a follow-up. This is a case of advanced COPD maintained on Trelegy Ellipta on outpatient basis along with HIV with low CD4 counts, presented to the hospital with respiratory failure multiple requiring intubation and mechanical ventilation. T he patient is post prolonged ventilator dependent respiratory failure and the patient was given a tracheostomy tube that was inserted on 08/23/2023. Noted the patient was intubated on 08/13/2023. This morning, the patient is on propofol running at 50 mcg/kg/min and the patient will be given a sedation holiday. The patient is also normal sinus rate of 75 cc an hour. She is on assist-control mode at the rate of 18, tidal volume of 350, FiO2 is at 35% with a PEEP of 5. The chest x-ray from today is showing adequate positioning of the tracheostomy tube. The patient also has a right upper extremity PICC line catheter in place. No evidence of any cardiopulmonary abnormalities. No infiltrates or airspace disease. The patient remains on bronchodilators [id number] with DuoNeb updrafts. The patient remains on prednisone 40 mg p.o. daily as part of burst taper. The patient is on Lovenox for DVT prophylaxis. The patient is sitting PEG tube feeding and the patient has a vital AF at a rate of 33 cc an hour. Fluid balance is -1 L over the past 24 hours. No other significant events overnight. The blood gas from today shows a pH of 7.48 with a pCO2 of 56 and pO2 of 93. WBC count of 12.6 with a hemoglobin of 11.7, BUN is at 15 with a creatinine of 0.17 and sodium is at 135 and a potassium level of 3.8. Blood sugars at 83 from this morning. The bronchial wash was positive for Rimma and the patient is currently on Eraxis. On today's evaluation of 08/29/2023, I am seeing the patient for a follow-up. The patient remains on mechanical ventilator and the patient has a tracheostomy tube in place. The patient has been off propofol for the past 24 hours. Currently she is not receiving any form of sedative medications. She is very sluggishly responsive. Unable to communicate. Remains quite obtunded. Could be residual effect of various sedatives given to this patient over the past few weeks. She remains assist-control mode of mechanical ventilation at the rate of 18, tidal volume of 350, FiO2 of 35% with a PEEP of 5. Blood gas with a pH of 7.44 with pCO2 of 39 and pO2 of 122. Chest x-ray shows no acute abnormalities. Is consistent with COPD. Last procedure consolidation. Sodium level is 133 with a potassium level of 3.9, BUN is at 15 with a creatinine of 0.2 and a potassium level is at 3.9. WBC count is at 15.1 with a hemoglobin of 11.4 and a platelet count of 210. Remains on DuoNeb nebulized treatments [id number]. Remains on prednisone 40 mg p.o. daily. Remains on Lovenox for DVT prophylaxis 40 mg subcu on a daily basis. SSI scale coverage and the patient is also receiving enteral feeding for nutritional support with vital AF at the rate of 23 cc an hour through a PEG tube. Cardiac rhythm is sinus. No other significant events over the past 24 hours at this point in time. On today's evaluation of 08/30/2023, the patient seems to be struggling while being on a volume cycle mechanical ventilation. The patient is on a assist-co ntrol of 18, tidal volume of 350, FiO2 of 35% with a PEEP of 5. Chest x-ray remains unchanged. The patient has been off Precedex. The sedation was discontinued 7 AM in the morning. While being off sedation, the patient does not show adequate mentation. She senses painful stimulation. Does not follow any commands. She is profoundly weak and debilitated. She remains in normal sinus rhythm 75 cc an hour. Fluid balance is -3.5 L over the past 24 hours. Blood gas from today show a pH of 7.47 with a pCO2 of 50 and pO2 of 101. The patient is on vital AF at rate of 28 cc an hour. She remains on bronchodilators. She remains on prednisone 40 mg p.o. daily. She is also on Seroquel. Seroquel is being given a dose of 50 mg 3 times daily and the patient is also on Zoloft 50 mg p.o. daily. BuSpar will be also added for increased anxiety. Progress note dated August 31, 2023. The patient is seen today in room 253. The patient has been converted to pressure assist control mode of ventilation. Her inspiratory pressure is 15 cmH2O, and a respiratory time of 0.75 seconds. Her rate is 18, FiO2 35%, PEEP of 5. Currently, she is on saline at 75 cc an hour, vital AF at 38 cc an hour, which is goal, and I have asked the nurse to use Cleviprex, as needed, for blood pressure support. Current laboratory data includes a white count 13.5, hemoglobin 10.9, hematocrit 33.9, and a normal platelet count. Sodium 133, potassium 3.4, chlorides 99, CO2 34, BUN 13, creatinine 0.17. Glucose is 88. Calcium is 7.7. Blood gases are currently pending. Chest x-ray reveals clear lung moralez. There is a midline tracheostomy tube. Patient was earlier today on 09/07/2023, remains in the ICU, intubated and mechanically ventilated. Patient is not tolerating trials of weaning, yesterday I had to place back on. Ventilatory support, and she remains on assist-control mode of mechanical ventilation, AC rate of 12, tidal volume 400 FiO2 35% and PEEP of 5. Patient seems to be very comfortable on that mode of mechanical ventilation, however I plan today to give her a trial of pressure support again and I will likely alternate pressure support mode of mechanical ventilation with pressure support of 14 and every 2 hours alternate with assist-control mode of mechanical ventilation. WBC count is 4.8 hemoglobin 9.7 basic metabolic profile is normal renal profile is normal. Chest x-ray showed no evidence of infiltrate Patient was currently on 09/08/2023, remains in the ICU intubated and mecha nically ventilated, patient has been a failure to wean, yesterday we alternated pressure support mode of mechanical ventilation with assist-control mode of mechanical ventilation throughout the day and transitioning was done every 2 hours. Patient did well today I plan to extend the pressure support mode of mechanical ventilation longer or as long as the patient tolerates. She will be on pressure support of 14. No backup IMV rate, patient seems to be tolerating that mode very well. However the patient seems to have developed some fecal impaction or constipation with distended abdomen, and dilated bowel loops, patient is receiving MiraLAX and lactulose, and her abdominal distention will be addressed with decompression from the PEG tube, and will continue MiraLAX and lactulose. On physical examination she does not have a surgical abdomen but that is a bit of a concern if the patient does not decompress. For her severe critical illness polyneuropathy and myopathy I am recommending evaluation by neurology. Patient is again very difficult to wean, and I still believe the patient would benefit and she will be better off in LTAC, chest x-ray continues to show no infiltrate. WBC count is 4.9 hemoglobin is 10.0 basic metabolic profile is normal sodium is a bit low at 130 renal profile is normal Patient was reevaluated today on 09/09/2023, remains in the ICU intubated and mechanically ventilated. Yesterday the patient had about 6 hours of pressure support mode of mechanical ventilation with pressure support of 14 and CPAP. However after 6 hours patient felt that she needed to go back on AC mode and she was placed back on AC mode has been on the AC mode for overnight. She is now on assist-control rate of 12 tidal volume 400 FiO2 55%, and PEEP of 5. WBC count today 6.6 hemoglobin 10.4, sodium is a bit low at 128 potassium 3.5 bicarb is 27 BUN is 10 creatinine 0.18. Patient continues to have some vague abdominal discomfort although she had a good bowel movement yesterday. And her abdominal findings are less concerning today, she is not as tender, and she is not as distended. Will likely resume feeding again today via PEG tube. Patient was seen by neurology yesterday for her critical illness polyneuropathy/myopathy the recommendation is mostly at this point physical therapy and Occupational Therapy and recommending EMG with nerve conduction study as an outpatient. Patient was reevaluated today on 09/10/2023 remains in the ICU, intubated, mechanically ventilated. However the patient was able to tolerate at least 8 hours of pressure support/CPAP yesterday with a pressure support of 14. Patient will be given another trial of pressure support today and continue to give her these trials on a daily basis eventually cut down on the pressure support from 14 to lower pressures 12 and eventually to 8. In the meantime the patient continues to have intermittent episodes of abdominal distention her last bowel movement was 2 days ago, patient will have her PEG tube on suction today, will continue with the lactulose and with MiraLAX. For her low sodium today of 124, I am recommending 0.9 normal saline increased to 100 cc/h since we are planning to hold her feedings for the next 24 hours. Patient seems to be tolerating pressure support of 14 today well. Moving good tidal volumes in the range of 360-400 and her respiratory rate is in the teens. Overall the patient is doing well, the main 2 issues at this point are related to her profound critical illness polyneuropathy and weakness and related to failure to wean and decannulate tracheostomy, and both issues are related Progress note dated September 11, 2023. The patient is seen today in room 253. The patient has not been in the hospital for 32 days. She is currently on pressure support of 14, to be turned down to 12, and CPAP of 5. She is getting FiO2 35%. She is also receiving saline at 75 cc an hour, vital AF at 20 cc an hour, and Bactrim DS. She request some trazodone for sleep at nighttime. We will discontinue her Seroquel. Current labs include a white count of 6.1, hemoglobin 10, hematocrit 31.3, and a platelet count of 444,000. Sodium 124, potassium 3.4, chloride 93, CO2 22, BUN 6, creatinine 0.20. Calcium is 8.8. Glucose is 86. Chest x-ray shows changes of COPD. No acute process is noted. She does have a midline tracheostomy tube. Progress note dated September 12, 2023. The patient is seen today in room 253. The patient will likely be discharged to long-term acute care today. She continues on pressure support of 6, CPAP of 5. She is getting FiO2 35%. The patient is getting saline at 75 cc an hour, and vital AF at 30 cc an hour, with a goal of 53. The patient's formoterol will be discontinued, as she appears to have side effects from this medication. Labs include a white count 5.6, hemoglobin 9.7, hematocrit 30.5, and platelet count of 516,000. Sodium 132, potassium 3.6, chlorides 100, CO2 27, BUN 3, creatinine 0.18. Glucose is 80. Calcium is 8.8. No chest x-ray today. No blood gas today. The patient does have a midline tracheostomy tube. Objective - Vital Signs Vital signs: Vital Signs Temp 98.2 F 09/12/23 08:00 Pulse 94 09/12/23 10:00 Resp 26 H 09/12/23 10:00 BP 106/73 09/12/23 10:00 Pulse Ox 98 09/12/23 10:00 FiO2 35 09/12/23 10:36 Intake & Output 09/11/23 09/12/23 09/12/23 18:59 06:59 18:59 Intake Total 1025 1350 450 Output Total 910 1165 385 Balance 115 185 65 Weight 55 kg Intake: IV 825 900 300 Sodium Chloride 0.9% 1, 825 900 300 000 ml @ 75 mls/hr IV . [id number] [facility] [place] Rx#:[id number] Tube Feeding 200 360 120 Other 90 30 Output: Urine 910 1165 385 Other: Voiding Method Indwelling Catheter Indwelling Catheter ABP, PAP, CO, CI - Last Documented Arterial Blood Pressure 109/53 - Exam No acute distress, off sedation, with an midline tracheostomy tube. The patient is awake and alert. HEENT examination is grossly unremarkable. Neck supple. Full range of motion. No adenopathy thyromegaly or neck vein distention. Cardiovascular examination reveals regular rhythm rate. S1-S2 normal. No S3 or S4. No discernible murmur noted. Heart sounds are distant. Heart rate 94 bpm. Lungs reveal scattered bilateral rhonchi. No wheezes or crackles. Breath sounds equal. Saturations are 98 % Abdomen soft, with bowel sounds. No masses or tenderness. PEG tube is noted. Extremities are intact. No cyanosis clubbing or edema. Skin is without rash or lesion. Neurologic examination is much improved. - Labs CBC & Chem 7: 09/12/23 06:21 09/12/23 06:21 Labs: Abnormal Lab Results - Last 24 Hours (Table) 09/12/23 09/12/23 Range/Units 06:21 06:21 RBC 3.13 L (3.80-5.40) m/uL Hgb 9.7 L (11.4-16.0) gm/dL Hct 30.5 L (34.0-46.0) % Plt Count 516 H (150-450) k/uL Metamyelocytes # (Man) 0.22 H (0) k/uL Myelocytes # (Manual) 0.17 H (0) k/uL Sodium 132 L (137-145) mmol/L BUN 3 L (7-17) mg/dL Creatinine 0.18 L (0.52-1.04) mg/dL Microbiology - Last 24 Hours (Table) 08/13/23 13:30 Acid Fast Bacilli Smear - Preliminary Sputum Acid Fast Bacilli Culture - Preliminary Assessment and Plan Assessment: Acute exacerbation of chronic COPD, failed outpatient treatment despite being on antibiotics and steroids. The patient failed inpatient BiPAP therapy and the patient ultimately was intubated on 08/13/2023 and the patient is a tracheostomy tube insertion on 08/23/2023 for prolonged ventilator dependent respiratory failure. Chest x-ray remains free of any pulm pulmonary infiltrates. Prolonged respiratory failure requiring intubation and mechanical ventilation and tracheostomy tube for ongoing respiratory support. Adequate oxygenation and ventilation on today's blood gases. Chest x-ray shows no acute abnormalities and is consistent with COPD. Acute hypoxic/hypercapnic respiratory failure secondary to above, remains on mechanical ventilator for respiratory support. Advanced COPD at baseline and the patient has been maintained on Trelegy Ellipta on outpatient basis History of smoking History of HIV currently on Biktarvy. Viral count and CD4 counts are not known. No previous history of a persistent infections. The patient has not been receiving any form of antibiotic treatments such as Bactrim. Her infectious disease doctor is Dr. Salguero. The CD4 count is at 81 Enteral feeding for nutritional support and the patient was given a PEG tube Left upper lobe pulmonary nodule measuring 9 mm in size, nonspecific finding. Encephalopathy, likely drug-induced and monitoring the mental status. Intermittent abdominal distention and pain, somewhat improved. 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 Plan: Plan dated August 21, 2023. The patient has not really made any headway towards weaning and extubation. She was intubated on August 12. She has not been intubated for 9 days. Will ask surgery for tracheostomy and PEG tube placement. Patient continues on propofol, fentanyl, and Versed. She is receiving tube feedings. Blood gases have been reviewed. Labs, x-rays, and all medications are reviewed. Prognosis is guarded. We will continue to follow make recommendations along the way. Plan dated August 22, 2023. The patient's tube feeds are on hold, for anticipated tracheostomy tube placement and PEG tube placement today. The patient has a very high peak airway pressure 37 cm of water, and a plateau pressure of 20. The large peak to plateau difference, suggest increased airway resistance. Labs, x-rays, and medications are reviewed. The patient is maintained on propofol, fentanyl, and Versed. Blood gases show pO2 of 80, pCO2 of 67, and a pH of 7.42. Labs, x- rays, medications are reviewed. Prognosis is certainly guarded. We will continue to follow the patient, and make recommendations along the way. Plan dated August 23, 2023. The patient is supposed to go to the operating room today, for tracheostomy tube, and feeding tube/PEG tube. In addition, we will ask interventional radiology to place a PICC line on this patient. The patient continues on saline at 75 cc an hour, Versed at 6 mg an hour, propofol at 55 mcg/kg/min, and fentan yl at 1.5 mcg/kg/h. In addition, blood gases show pO2 of 91, pCO2 of 63, and a pH of 7.44. Labs, x-rays, and medications are reviewed. The patient's overall prognosis remains guarded. We will continue to follow the patient, and make recommendations along the way. Plan dated August 24, 2023. The patient had a tracheostomy and PEG tube placed yesterday. The patient will have a PICC line placed today. The patient continues on the ventilator. Gases show a pO2 of 76, pCO2 of 63, pH is 7.41. The patient continues on Versed 4 mg an hour, saline at 75 cc an hour, propofol at 40 mcg/kg/min, and fentanyl at 1.5 mcg/kg/h. Labs, x-rays, and medications are reviewed. We will continue to follow the patient, make recommendations along the way. Prognosis is certainly very guarded. Plan dated August 25, 2023. The patient continues on appropriate antibiotics. In addition, we will add some Ativan 1 mg every 6 hours, down the PEG tube, to see if we can get the patient off of the Versed drip. Labs, x-rays, and medications are reviewed. Blood gases are reasonable with a pO2 of 69, pCO2 of 56, pH is 7.45. The patient continues on propofol, fentanyl, and Versed. The patient is receiving tube feedings at goal. The patient is also getting saline at 75 cc an hour. The patient's overall prognosis remains very guarded. We will continue to follow and make recommendations along the way. Plan dated August 26, 2023. The patient is seen today in room 253. The patient continues on the mechanical ventilator. In addition, she continues on saline at 75 cc an hour. Throughout the night, she has been on and off of Cleviprex. Currently, the Versed has been weaned off. She continues on fentanyl at 2 mcg/kg/h. She is also getting tube feedings at goal, which is 33 cc an hour. We will add Dilaudid to the regimen, and increase the frequency of Ativan. In addition, we will convert the Solu- Medrol to prednisone. The patient does continue on Eraxis. Labs, x-rays, and medications are reviewed. The patient's overall prognosis remains very guarded. We will continue to follow and make recommendations where appropriate. Plan dated August 27, 2023. The patient is seen today in room 253. The patient continues on mechanical ventilator. The patient continues on propofol at 50 mcg/kg/min. Will start Seroquel 50 mg 3 times a day. She continues on Eraxis as per infectious diseas es. We will check a chest x-ray today. In addition to the propofol, she continues on Dilaudid, and Ativan. We have been able to wean her off the Versed, and the fentanyl. She continues on tube feedings at 33 cc an hour, which is goal. Labs x-rays, and medications are reviewed. We will continue to follow make recommendations were appropriate. Prognosis is certainly guarded. Plan dated September 11, 2023. The patient appears to be doing relatively well. We will lower her pressure support from 14-12, and eventually get her down to 5 blood pressure support, and attempt trach collar tomorrow. The patient is getting saline at 75 cc an hour. Vital AF is running at 20 cc an hour. That is been on and off because of abdominal pain and distention. She continues on Bactrim DS. FiO2 is 35%. L abs, x-rays, medications are reviewed. Her Seroquel was discontinued in favor of trazodone, 100 mg, at bedtime. We will continue to follow make recommendations. Prognosis is guarded. Plan dated September 12, 2023. The patient had an uneventful night. The patient has been weaned down to pressure support of 6, and CPAP of 5. Her respiratory status is stable. She is receiving oxygen at 35%. She is getting saline at 75 cc an hour, and vital AF at 30 cc an hour, with a goal of 53. We will DC her formoterol. The plan is to transfer her to a long-term acute care facility today. Labs, x-rays, me dications are reviewed. The patient remains critically ill, but stable. We will continue to follow the patient, should she not get discharged. Her Seroquel was discontinued in favor of trazodone, 100 mg at bedtime. Time with Patient: Greater than 30
[2023-09-12 11:36] LABS: Glucose,Whole Blood 118 mg/dL (70-110)
--- NOTE | 2023-09-12 15:38 | P.PN ---
Subjective Progress Note Date: 09/12/23 CHIEF COMPLAINT: Respiratory failure HISTORY OF PRESENT ILLNESS: Patient remains in the ICU. She is status post tracheostomy and PEG tube placement. Patient is tolerating tube feeds. PHYSICAL EXAM: VITAL SIGNS: Reviewed. HEENT: Trach site clean, dry and intact ABDOMEN: PEG tube site clean dry and intact ASSESSMENT: 1. Acute hypoxic respiratory failure 2. COPD exacerbation 3. Moderate protein calorie malnutrition 4. History of HIV PLAN: -Continue tube feeds -Patient being discharged to [facility] today Physician Signal Helper note has been reviewed by physician. Signing provider agrees with the documented findings, assessment, and plan of care. Objective - Vital Signs Vital signs: Vital Signs Temp 98.2 F 09/12/23 08:00 Pulse 101 H 09/12/23 15:03 Resp 17 09/12/23 14:00 BP 120/84 09/12/23 14:00 Pulse Ox 98 09/12/23 14:00 FiO2 35 09/12/23 15:03 Intake & Output 09/11/23 09/12/23 09/12/23 18:59 06:59 18:59 Intake Total 1025 1350 920 Output Total 910 1165 615 Balance 115 185 305 Weight 55 kg Intake: IV 825 900 600 Sodium Chloride 0.9% 1, 825 900 600 000 ml @ 75 mls/hr IV . [id number] [facility] Rx#:[id number] Tube Feeding 200 360 260 Other 90 60 Output: Urine 910 1165 615 Other: Voiding Method Indwelling Catheter Indwelling Catheter Indwelling Catheter ABP, PAP, CO, CI - Last Documented Arterial Blood Pressure 109/53 - Labs CBC & Chem 7: 09/12/23 06:21 09/12/23 06:21 Labs: Abnormal Lab Results - Last 24 Hours (Table) 09/12/23 09/12/23 09/12/23 Range/Units 06:21 06:21 11:33 RBC 3.13 L (3.80-5.40) m/uL Hgb 9.7 L (11.4-16.0) gm/dL Hct 30.5 L (34.0-46.0) % Plt Count 516 H (150-450) k/uL Metamyelocytes # (Man) 0.22 H (0) k/uL Myelocytes # (Manual) 0.17 H (0) k/uL Sodium 132 L (137-145) mmol/L BUN 3 L (7-17) mg/dL Creatinine 0.18 L (0.52-1.04) mg/dL POC Glucose (mg/dL) 118 H (70-110) mg/dL Microbiology - Last 24 Hours (Table) 08/13/23 13:30 Acid Fast Bacilli Smear - Preliminary Sputum Acid Fast Bacilli Culture - Preliminary
[2023-09-12 15:48] VITALS: PULSE 100
[2023-09-12 15:50] VITALS: BP 122/86; RESP 18
--- NOTE | 2023-09-13 07:51 | P.PN ---
Subjective Progress Note Date: 08/20/23 Principal diagnosis: Reason for follow-up is HIV and possible pneumonia Patient is a 52-year-old female with a past medical history significant for HIV on Biktarvy, also with a history of COPD presenting to the hospital for evaluation of increasing shortness of breath patient did have worsening respiratory status got intubated, patient did have a CT angiogram of the chest that was negative for PE did shows a lung nodule did not mention any infiltrate or consolidation. On today's evaluation that is 08/20/2023, the patient continues to be afebrile, the patient is on the vent FiO2 is currently stable at 35% no significant purulent secretions through the ET diarrhea or any change reported by the nursing staff patient not requiring any pressor support Patient did have white count 10.1, creatinine 0.38 Objective - Vital Signs Vital signs: Vital Signs Temp 98.8 F 08/20/23 08:30 Pulse 120 H 08/20/23 09:12 Resp 21 08/20/23 08:30 BP 128/61 08/20/23 07:30 Pulse Ox 92 L 08/20/23 08:30 FiO2 35 08/20/23 08:30 Intake & Output 08/19/23 08/20/23 08/20/23 18:59 06:59 18:59 Intake Total 6688.489 1163.397 220.864 Output Total 870 1985 120 Balance 595.491 -763.603 100.864 Weight 68.2 kg Intake: IV 936 936 156 Normal Saline Pressure 36 36 6 Bag Sodium Chloride 0.9% 1, 900 900 150 000 ml @ 75 mls/hr IV . [id number] [facility] Rx#:[id number] Intake, IV Titration 157.491 264.397 13.864 Amount Clevidipine Butyrate 25 51.834 1.266 mg In Empty Bag 1 bag @ 1 MG/HR 2 mls/hr IV .Q24H [facility] Rx#:[id number] Midazolam HCl 50 mg In 12.183 16.767 0.533 Sodium Chloride 0.9% 40 ml @ 1 MG/HR 1 mls/hr IV .Q24H [facility] Rx#:[id number] fentaNYL (PF). 1,000 mcg 73.122 In Sodium Chloride 0.9% 80 ml @ 0.5 MCG/KG/HR 3. 005 mls/hr IV .Q24H [facility] Rx#:[id number] propofoL 1,000 mg In 72.186 195.796 12.065 Empty Bag 1 bag @ 15 MCG/ KG/MIN 5.715 mls/hr IV . [id number] [facility] Rx#:[id number] Tube Feeding 252 21 21 Other 120 30 Output: Urine 870 1985 120 Other: Voiding Method Indwelling Catheter Indwelling Catheter ABP, PAP, CO, CI - Last Documented Arterial Blood Pressure 170/78 - Exam GENERAL DESCRIPTION: Middle-aged female intubated on the vent RESPIRATORY SYSTEM: Unlabored breathing , decreased breath sounds at bases HEART: S1 S2 regular rate and rhythm , ABDOMEN: Soft , no tenderness EXTREMITIES: No edema feet Exam completed with the help of APPLICATIONS CONSULTANT - Labs CBC & Chem 7: 08/22/23 05:25 08/22/23 05:25 Labs: Abnormal Lab Results - Last 24 Hours (Table) 08/19/23 08/19/23 08/20/23 Range/Units 12:39 23:01 05:40 RBC 3.67 L (3.80-5.40) m/uL MCV 104.5 H (80.0-100.0) fL ABG pCO2 (35-45) mmHg ABG pO2 (83-108) mmHg ABG HCO3 (21-25) mmol/L ABG Total CO2 (19-24) mmol/L Carbon Dioxide (22-30) mmol/L BUN (7-17) mg/dL Creatinine (0.52-1.04) mg/dL Glucose (74-99) mg/dL POC Glucose (mg/dL) 115 H 136 H (70-110) mg/dL Calcium (8.4-10.2) mg/dL 08/20/23 08/20/23 08/20/23 Range/Units 05:40 06:13 06:20 RBC (3.80-5.40) m/uL MCV (80.0-100.0) fL ABG pCO2 68 H (35-45) mmHg ABG pO2 71 L (83-108) mmHg ABG HCO3 42 H* (21-25) mmol/L ABG Total CO2 44 H (19-24) mmol/L Carbon Dioxide 39 H (22-30) mmol/L BUN 33 H (7-17) mg/dL Creatinine 0.38 L (0.52-1.04) mg/dL Glucose 135 H (74-99) mg/dL POC Glucose (mg/dL) 139 H (70-110) mg/dL Calcium 8.2 L (8.4-10.2) mg/dL Assessment and Plan (1) Acute respiratory failure Current Visit: Yes Status: Acute Code(s): J96.00 - ACUTE RESPIRATORY FAILURE, UNSP W HYPOXIA OR HYPERCAPNIA SNOMED Code(s): 65117223 (2) HIV disease Current Visit: No Status: Acute Code(s): B20 - HUMAN IMMUNODEFICIENCY VIRUS [HIV] DISEASE SNOMED Code(s): 54347384 Plan: 1patient presented to hospital with increasing shortness of breath which is likely multifactorial in this patient who did have a history of COPD and likely COPD is a patient with a tracheobronchitis underlying pneumonia less likely but not entirely excluded 2-patient did have a CT angiogram of the chest that was negative for PE did not show any evidence of pneumonia or interstitial infiltrate 3-patient did have a penicillin allergy that will limit the number of antibiotics safe to use 4-patient sputum is growing Rimma which is likely colonization, pneumocystis and Legionella antigens has been negative 5-patient to continue with Biktarvy for HIV, no need for systemic antibiotic therapy Dictation was produced using [employer] dictation software. please excuse any grammatical, word or spelling errors. Time with Patient: Less than 30
--- NOTE | 2023-09-13 07:51 | P.PN ---
Subjective Progress Note Date: 09/12/23 Principal diagnosis: Reason for follow-up is HIV and possible pneumonia Patient is a 52-year-old female with a past medical history significant for HIV on Biktarvy, also with a history of COPD presenting to the hospital for evaluation of increasing shortness of breath patient did have worsening respiratory status got intubated, patient did have a CT angiogram of the chest that was negative for PE did shows a lung nodule did not mention any infiltrate or consolidation.Patient is status post tracheostomy completed on 08/23/2023 On today's evaluation that is 09/12/2023,the patient denies any fever or any chills, patient is breathing comfortably currently on the vent FiO2 of 35%, the patient denies chest pain shortness of breath and no significant cough, patient denies abdominal pain, no nausea vomiting or diarrhea. Patient white count is 5.6 creatinine 0.18 Objective - Vital Signs Vital signs: Vital Signs Temp 98.2 F 09/12/23 08:00 Pulse 103 H 09/12/23 14:00 Resp 17 09/12/23 14:00 BP 120/84 09/12/23 14:00 Pulse Ox 98 09/12/23 14:00 FiO2 35 09/12/23 14:00 Intake & Output 09/11/23 09/12/23 09/12/23 18:59 06:59 18:59 Intake Total 1025 1350 920 Output Total 910 1165 615 Balance 115 185 305 Weight 55 kg Intake: IV 825 900 600 Sodium Chloride 0.9% 1, 825 900 600 000 ml @ 75 mls/hr IV . [id number] [facility] Rx#:[id number] Tube Feeding 200 360 260 Other 90 60 Output: Urine 910 1165 615 Other: Voiding Method Indwelling Catheter Indwelling Catheter Indwelling Catheter ABP, PAP, CO, CI - Last Documented Arterial Blood Pressure 109/53 - Exam GENERAL DESCRIPTION: Middle-aged female intubated on the vent through the trach RESPIRATORY SYSTEM: Unlabored breathing , decreased breath sounds at bases HEART: S1 S2 regular rate and rhythm , ABDOMEN: Soft , no tenderness EXTREMITIES: No edema feet - Labs CBC & Chem 7: 09/12/23 06:21 09/12/23 06:21 Labs: Abnormal Lab Results - Last 24 Hours (Table) 09/12/23 09/12/2309/11/24 Range/Units 06:21 06:21 11:33 RBC 3.13 L (3.80-5.40) m/uL Hgb 9.7 L (11.4-16.0) gm/dL Hct 30.5 L (34.0-46.0) % Plt Count 516 H (150-450) k/uL Metamyelocytes # (Man) 0.22 H (0) k/uL Myelocytes # (Manual) 0.17 H (0) k/uL Sodium 132 L (137-145) mmol/L BUN 3 L (7-17) mg/dL Creatinine 0.18 L (0.52-1.04) mg/dL POC Glucose (mg/dL) 118 H (70-110) mg/dL Microbiology - Last 24 Hours (Table) 08/13/23 13:30 Acid Fast Bacilli Smear - Preliminary Sputum Acid Fast Bacilli Culture - Preliminary Assessment and Plan (1) Acute respiratory failure Status: Acute Code(s): J96.00 - ACUTE RESPIRATORY FAILURE, UNSP W HYPOXIA OR HYPERCAPNIA SNOMED Code(s): 73715630 (2) HIV disease Status: Acute Code(s): B20 - HUMAN IMMUNODEFICIENCY VIRUS [HIV] DISEASE SNOMED Code(s): 22962254 Plan: 1patient presented to hospital with increasing shortness of breath which is likely multifactorial in this patient who did have a history of COPD and likely COPD is a patient with a tracheobronchitis underlying pneumonia less likely but not entirely excluded 2-patient did have a CT angiogram of the chest that was negative for PE did not show any evidence of pneumonia or interstitial infiltrate 3-patient did have a penicillin allergy that will limit the number of antibiotics safe to use 4--patient sputum is growing Rimma which is likely colonization however the patient did have worsening of the white count could be component of oropharyngeal candidiasis, for the patient received adequate antifungal therapy and there is no need for any antifungal or antibiotic therapy on discharge 5-patient with HIV viral load undetectable patient to continue with the Biktarvy along with the Bactrim DS and close outpatient follow-up once discharged from the rehab Dictation was produced using [employer] dictation software. please excuse any grammatical, word or spelling errors. Time with Patient: Less than 30
== END 2023-09-12 17:08 | DRG 4 ==
LOC: EC 12:59 → 3SCARD 14:33 → 4SSUR 08-11 09:58 → 3SCARD 08-13 02:40 → 2SICU 08-13 11:12
PROVIDERS: ADMIT Internal Medicine; ATTEND Internal Medicine
PROC: 5A09357 Assistance with Respiratory Ventilation, Less than 24 Consecutive Hours, Continuous Positive Airway Pressure (ICD-10-PCS; 2023-08-10)
PROC: 5A1955Z Respiratory Ventilation, Greater than 96 Consecutive Hours (ICD-10-PCS; 2023-08-13)
PROC: 0BH18EZ Insertion of Endotracheal Airway into Trachea, Via Natural or Artificial Opening Endoscopic (ICD-10-PCS; 2023-08-13)
PROC: 0B9H8ZX Drainage of Lung Lingula, Via Natural or Artificial Opening Endoscopic, Diagnostic (ICD-10-PCS; 2023-08-13)
PROC: 03HY32Z Insertion of Monitoring Device into Upper Artery, Percutaneous Approach (ICD-10-PCS; 2023-08-14)
PROC: 4A133B1 Monitoring of Arterial Pressure, Peripheral, Percutaneous Approach (ICD-10-PCS; 2023-08-14)
PROC: 4A133J1 Monitoring of Arterial Pulse, Peripheral, Percutaneous Approach (ICD-10-PCS; 2023-08-14)
PROC: 3E0G76Z Introduction of Nutritional Substance into Upper GI, Via Natural or Artificial Opening (ICD-10-PCS; 2023-08-14)
PROC: 03HY32Z Insertion of Monitoring Device into Upper Artery, Percutaneous Approach (ICD-10-PCS; 2023-08-20)
PROC: 4A133B1 Monitoring of Arterial Pressure, Peripheral, Percutaneous Approach (ICD-10-PCS; 2023-08-20)
PROC: 4A133J1 Monitoring of Arterial Pulse, Peripheral, Percutaneous Approach (ICD-10-PCS; 2023-08-20)
PROC: 0DH63UZ Insertion of Feeding Device into Stomach, Percutaneous Approach (ICD-10-PCS; 2023-08-23)
PROC: 3E0G76Z Introduction of Nutritional Substance into Upper GI, Via Natural or Artificial Opening (ICD-10-PCS; 2023-08-23)
PROC: 0B110Z4 Bypass Trachea to Cutaneous, Open Approach (ICD-10-PCS; principal; 2023-08-23 07:30)
PROC: 02HV33Z Insertion of Infusion Device into Superior Vena Cava, Percutaneous Approach (ICD-10-PCS; 2023-08-24)
DX: J44.1 Chronic obstructive pulmonary disease with (acute) exacerbation (principal); G92.8 Other toxic encephalopathy; J96.01 Acute respiratory failure with hypoxia; J96.02 Acute respiratory failure with hypercapnia; G62.81 Critical illness polyneuropathy; E44.0 Moderate protein-calorie malnutrition; B20 Human immunodeficiency virus [HIV] disease; G72.81 Critical illness myopathy; E87.3 Alkalosis; B37.0 Candidal stomatitis; E87.1 Hypo-osmolality and hyponatremia; J43.8 Other emphysema; G70.89 Other specified myoneural disorders; Z79.4 Long term (current) use of insulin; K56.41 Fecal impaction; F41.9 Anxiety disorder, unspecified; M21.379 Foot drop, unspecified foot; R74.01 Elevation of levels of liver transaminase levels; T38.0X5A Adverse effect of glucocorticoids and synthetic analogues, initial encounter; R91.1 Solitary pulmonary nodule; R73.09 Other abnormal glucose; Z87.891 Personal history of nicotine dependence; Z79.51 Long term (current) use of inhaled steroids; Z79.899 Other long term (current) drug therapy; Z88.0 Allergy status to penicillin; Z86.73 Personal history of transient ischemic attack (TIA), and cerebral infarction without residual deficits; Z68.20 Body mass index [BMI] 20.0-20.9, adult
CPT/HCPCS: 36410; 36415; 36573; 36600; 43246; 70450; 71045; 71275; 72125; 74018; 76937; 80048; 80053; 81001; 82140; 82550; 82607; 82746; 82803; 82805; 83036; 83605; 83735; 84132; 84145; 84443; 85025; 85027; 86140; 86360; 86701; 86803; 87040; 87070; 87102; 87116; 87205; 87206; 87281; 87340; 87449; 87496; 87498; 87502; 87529; 87535; 87536; 87634; 87635; 87636; 87798; 89050; 93005; 93306; 94002; 94003; 94640; 94660; 94760; 96361; 96365; 96366; 96375; 96376; 99291

== ENCOUNTER 2023-09-30 02:40 | Emergency (ER) | payer MEDICARE, OTHER ==
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
[2023-09-30] MEDS: IPRATROPIUM-ALBUTEROL 3 ML NEB INHALATION STA (07:52)
[2023-09-30 10:55] VITALS: RESP 18; TEMP 98.7
[2023-09-30 15:48] VITALS: BP 135/56; PULSE 87
== END 2023-09-30 16:00 | disposition home or self-care (01) ==
LOC: EC 02:40
DX: J44.1 Chronic obstructive pulmonary disease with (acute) exacerbation (principal); F17.200 Nicotine dependence, unspecified, uncomplicated; Z88.0 Allergy status to penicillin
CPT/HCPCS: 94640; 99285

== ENCOUNTER 2023-11-04 22:22 | Observation (INO) | payer MEDICARE, OTHER ==
--- NOTE | 2023-11-04 23:17 | ED ---
General Adult HPI - General Chief complaint: Shortness of Breath Stated complaint: TK Time Seen by Provider: 11/04/23 22:26 Source: patient, EMS, RN notes reviewed, old records reviewed Mode of arrival: EMS Limitations: no limitations - History of Present Illness Initial comments: 53-year-old female history of COPD, recent prolonged intubation status post tracheostomy and tracheostomy reversal presents for evaluation of cough and dyspnea. Patient denies fever. Denies central chest pain. Patient states that her roommate does continue to smoke, she herself has quit smoking but she is exposed. - Related Data Home Medications Medication Instructions Recorded Confirmed Albuterol Sulfate [Albuterol 2 puff PO RT-Q4H PRN 03/14/22 09/30/23 Sulfate Hfa] Bictegrav/Emtricit/Tenofov Ala 1 tab PO DAILY 08/10/23 09/30/23 [Biktarvy 50-200-25 mg Tablet] Fluticasone/Umeclidin/Vilanter 1 puff INHALATION RT-DAILY 08/10/23 09/30/23 [Trelegy Ellipta 200-62.5-25] Ipratropium-Albuterol Nebulize 3 ml INHALATION RT-Q4H 08/10/23 09/30/23 [Duoneb 0.5 mg-3 mg/3 ml Soln] Sertraline [Zoloft] 50 mg PO DAILY 08/10/23 09/30/23 traZODone HCL [Desyrel] 100 mg PO HS 08/10/23 09/30/23 Cholecalciferol (Vitamin D3) 50 mcg PO DAILY 09/30/23 09/30/23 [Vitamin D3 (50 Mcg = 2000 Iu)] Famotidine [Pepcid] 20 mg PO BID 09/30/23 09/30/23 Allergies Allergy/AdvReac Type Severity Reaction Status Date / Time Penicillins Allergy Anaphylaxis Verified 09/30/23 11:10 Review of Systems ROS Statement: Those systems with pertinent positive or pertinent negative responses have been documented in the HPI. ROS Other: All systems not noted in ROS Statement are negative. Past Medical History Past Medical History: Asthma, Blood Disorder, COPD, CVA/TIA Additional Past Medical History / Comment(s): hiv History of Any Multi-Drug Resistant Organisms: None Reported Past Surgical History: No Surgical Hx Reported Past Psychological History: Depression Smoking Status: Current every day smoker Past Alcohol Use History: None Reported, Occasional Past Drug Use History: None Reported General Exam Limitations: no limitations General appearance: alert, in no apparent distress Head exam: Present: atraumatic, normocephalic Eye exam: Present: normal appearance, PERRL ENT exam: Present: normal exam Neck exam: Present: normal inspection. Absent: tenderness, meningismus Respiratory exam: Present: respiratory distress, wheezes, decreased breath sounds. Absent: stridor Cardiovascular Exam: Present: regular rate, normal rhythm GI/Abdominal exam: Present: soft. Absent: distended, tenderness, guarding Course Vital Signs 11/04/23 11/04/23 11/05/23 22:39 23:35 00:03 Pulse Rate 97 98 104 H Respiratory 18 24 Rate Blood Pressure 161/105 O2 Sat by Pulse 99 Oximetry Medical Decision Making - Medical Decision Making Was pt. sent in by a medical professional or institution (, PA, CONTACT LENS CUTTER, urgent care, hospital, or senior care...) When possible be specific @ -No Did you speak to anyone other than the patient for history (EMS, parent, family, police, friend...)? What history was obtained from this source @ -No Did you review nursing and triage notes (agree or disagree)? Why? @ -I reviewed and agree with nursing and triage notes Were old charts reviewed (outside hosp., previous admission, EMS record, old EKG, old radiological studies, urgent care reports/EKG's, senior care records)? Report findings @ -No old charts were reviewed Differential Dyspnea: Coronary syndrome, arrhythmia, tamponade, asthma, COPD, pulmonary embolism, pneumonia, pneumothorax, pulmonary effusion, anaphylaxis, diabetic ketoacidosis, flailed chest, pulmonary contusion, diaphragmatic rupture, anemia, neuromuscular, this is not meant to be an all-inclusive list. EKG interpreted by me (3pts min.). @Sinus rhythm rate of 88, MO interval 141, QRS duration 82, QTc [address] segment elevation. X-rays interpreted by me (1pt min.). @X-ray showing hyperinflation, no focal pneumonia, no pneumothorax] CT interpreted by me (1pt min.). @ -None done U/S interpreted by me (1pt. min.). @ -None done What testing was considered but not performed or refused? (CT, X-rays, U/S, labs)? Why? @ -None What meds were considered but not given or refused? Why? @ -None Did you discuss the management of the patient with other professionals (professionals i.e. , PA, CONTACT LENS CUTTER, lab, RT, psych nurse, social service coordinator, remanufacturing technician, teacher, aboriginal home school liaison officer, embedded case manager)? Give summary @ -EMH Was smoking cessation discussed for >3mins.? @ -No Was critical care preformed (if so, how long)? @ yes, COPD exacerbation, 35 minutes Were there social determinants of health that impacted care today? How? (Homelessness, low income, unemployed, alcoholism, drug addiction, pierre sportation, low edu. Level, literacy, decrease access to med. care, group home, rehab)? @ -No Was there de-escalation of care discussed even if they declined (Discuss DNR or withdrawal of care, Hospice)? DNR status @ -No What co-morbidities impacted this encounter? (DM, HTN, Smoking, COPD, CAD, Cancer, CVA, ARF, Chemo, Hep., AIDS, mental health diagnosis, sleep apnea, morbid obesity)? @ -COPD Was patient admitted / discharged? Hospital course, mention meds given and route, prescriptions, significant lab abnormalities, going to OR and other pertinent info. @ -D3-year-old female presenting for evaluation of increased cough and dyspnea history of COPD. Patient is in sinus rhythm. Vital signs are stable. She has chest x-ray which is clear of focal pneumonia, no pneumothorax. Laboratory testing is essentially unremarkable. Patient will be admitted for treatment of COPD exacerbation with pulmonology on consult. Undiagnosed new problem with uncertain prognosis? @ -No Drug Therapy requiring intensive monitoring for toxicity (Heparin, Nitro, Insulin, Cardizem)? @ -No Were any procedures done? @ -No Diagnosis/symptom? @ -COPD exacerbation Acute, or Chronic, or Acute on Chronic? @ -Acute Uncomplicated (without systemic symptoms) or Complicated (systemic symptoms)? @ -Default Side effects of treatment? @ -No Exacerbation, Progression, or Severe Exacerbation? @ -No Poses a threat to life or bodily function? How? (Chest pain, [place], [place], pneumonia, PE, COPD, DKA, ARF, appy, cholecystitis, CVA, Diverticulitis, Homicidal, Suicidal, threat to staff... and all critical care pts) @ -[yes Respiratory failure - Lab Data Result diagrams: 11/04/23 22:58 11/04/23 22:58 Lab Results 11/04/23 11/04/23 11/04/23 Range/Units 22:58 22:58 22:58 WBC 6.1 (3.8-10.6) k/uL RBC 4.39 (3.80-5.40) m/uL Hgb 13.4 D (11.4-16.0) gm/dL Hct 43.9 (34.0-46.0) % MCV 99.9 (80.0-100.0) fL MCH 30.4 (25.0-35.0) pg MCHC 30.5 L (31.0-37.0) g/dL RDW 14.1 (11.5-15.5) % Plt Count 401 (150-450) k/uL MPV 6.8 Neutrophils % 52 % Lymphocytes % 37 % Monocytes % 5 % Eosinophils % 2 % Basophils % 1 % Neutrophils # 3.1 (1.3-7.7) k/uL Lymphocytes # 2.2 (1.0-4.8) k/uL Monocytes # 0.3 (0-1.0) k/uL Eosinophils # 0.1 (0-0.7) k/uL Basophils # 0.1 (0-0.2) k/uL PT 9.7 L (10.0-12.5) sec INR 0.9 (<1.2) APTT 26.2 (22.0-30.0) sec Sodium 131 L (137-145) mmol/L Potassium 4.8 (3.5-5.1) mmol/L Chloride 92 L (98-107) mmol/L Carbon Dioxide 34 H (22-30) mmol/L Anion Gap 5 mmol/L BUN 17 (7-17) mg/dL Creatinine 0.35 L (0.52-1.04) mg/dL Est GFR (CKD-EPI)AfAm >90 (>60 ml/min/1.73 sqM) Est GFR (CKD-EPI)NonAf >90 (>60 ml/min/1.73 sqM) Glucose 105 H (74-99) mg/dL Plasma Lactic Acid Jarad (0.7-2.0) mmol/L Calcium 9.5 (8.4-10.2) mg/dL Magnesium 2.1 (1.6-2.3) mg/dL Total Bilirubin 0.7 (0.2-1.3) mg/dL AST 44 H (14-36) U/L ALT 24 (4-34) U/L Alkaline Phosphatase 88 (38-126) U/L Troponin I (0.000-0.034) ng/mL NT-Pro-B Natriuret Pep 64 pg/mL Total Protein 8.2 (6.3-8.2) g/dL Albumin 4.9 (3.5-5.0) g/dL 11/04/23 11/04/23 Range/Units 22:58 22:58 WBC (3.8-10.6) k/uL RBC (3.80-5.40) m/uL Hgb (11.4-16.0) gm/dL Hct (34.0-46.0) % MCV (80.0-100.0) fL MCH (25.0-35.0) pg MCHC (31.0-37.0) g/dL RDW (11.5-15.5) % Plt Count (150-450) k/uL MPV Neutrophils % % Lymphocytes % % Monocytes % % Eosinophils % % Basophils % % Neutrophils # (1.3-7.7) k/uL Lymphocytes # (1.0-4.8) k/uL Monocytes # (0-1.0) k/uL Eosinophils # (0-0.7) k/uL Basophils # (0-0.2) k/uL PT (10.0-12.5) sec INR (<1.2) APTT (22.0-30.0) sec Sodium (137-145) mmol/L Potassium (3.5-5.1) mmol/L Chloride (98-107) mmol/L Carbon Dioxide (22-30) mmol/L Anion Gap mmol/L BUN (7-17) mg/dL Creatinine (0.52-1.04) mg/dL Est GFR (CKD-EPI)AfAm (>60 ml/min/1.73 sqM) Est GFR (CKD-EPI)NonAf (>60 ml/min/1.73 sqM) Glucose (74-99) mg/dL Plasma Lactic Acid Jarad 1.0 (0.7-2.0) mmol/L Calcium (8.4-10.2) mg/dL Magnesium (1.6-2.3) mg/dL Total Bilirubin (0.2-1.3) mg/dL AST (14-36) U/L ALT (4-34) U/L Alkaline Phosphatase (38-126) U/L Troponin I <0.012 (0.000-0.034) ng/mL NT-Pro-B Natriuret Pep pg/mL Total Protein (6.3-8.2) g/dL Albumin (3.5-5.0) g/dL Critical Care Time Critical Care Time: Yes Total Critical Care Time: 35 Disposition Clinical Impression: COPD (chronic obstructive pulmonary disease) Disposition: ADMITTED IP TO THIS HOSP Condition: Stable Is patient prescribed a controlled substance at d/c from ED?: No Referrals: Francisco Harvey [Primary Care Provider] - 1-2 days Time of Disposition: 00:57
[2023-11-04] MEDS: methylPREDNISolone SOD SUCCI 125 MG/2 ML VIAL IV STA (23:23)
[2023-11-04 23:26] LABS: Basophils # (A) 0.1 k/uL (0-0.2); Basophils % (A) 1 %; Eosinophils # (A) 0.1 k/uL (0-0.7); Eosinophils % (A) 2 %; HCT 43.9 % (34.0-46.0); Lymphocytes # (A) 2.2 k/uL (1.0-4.8); Lymphocytes % (A) 37 %; MCH 30.4 pg (25.0-35.0); MCHC 30.5 g/dL (31.0-37.0); MCV 99.9 fL (80.0-100.0); Mean Platelet Volume 6.8; Monocytes # (A) 0.3 k/uL (0-1.0); Monocytes % (A) 5 %; Neutrophils # (A) 3.1 k/uL (1.3-7.7); Neutrophils % (A) 52 %; Platelet Count 401 k/uL (150-450); RBC 4.39 m/uL (3.80-5.40); RDW 14.1 % (11.5-15.5); WBC 6.1 k/uL (3.8-10.6)
[2023-11-04] MEDS: ALBUTEROL NEBULIZED 2.5 MG/3 ML INHALATION STA (23:35)
[2023-11-04] MEDS: IPRATROPIUM 0.5 MG/2.5 ML NEBU INHALATION STA (23:35)
[2023-11-04 23:36] LABS: INR 0.9 (<1.2); Partial Thromboplastin Time 26.2 sec (22.0-30.0); Prothrombin Time 9.7 sec (10.0-12.5)
[2023-11-04 23:38] LABS: ALT 24 U/L (4-34); AST 44 U/L (14-36); African American GFR (CKD) >90 (>60 ml/min/1.73 sqM); Albumin 4.9 g/dL (3.5-5.0); Alkaline Phosphatase 88 U/L (38-126); Anion Gap 5 mmol/L; Blood Urea Nitrogen 17 mg/dL (7-17); Calcium 9.5 mg/dL (8.4-10.2); Carbon Dioxide 34 mmol/L (22-30); Chloride 92 mmol/L (98-107); Glucose 105 mg/dL (74-99); Magnesium 2.1 mg/dL (1.6-2.3); Non-African American GFR(CKD) >90 (>60 ml/min/1.73 sqM); Sodium 131 mmol/L (137-145); Total Bilirubin 0.7 mg/dL (0.2-1.3); Total Protein 8.2 g/dL (6.3-8.2)
[2023-11-04 23:39] LABS: Potassium 4.8 mmol/L (3.5-5.1)
[2023-11-04 23:43] LABS: NT-Pro-B-Type Natriuretic Pept 64 pg/mL
[2023-11-05 00:06] LABS: HGB 13.4 gm/dL (11.4-16.0)
--- NOTE | 2023-11-05 00:49 | XR ---
EXAM: XR Chest, 2 Views CLINICAL HISTORY: ITS.REASON XR Reason: difficulty breathing TECHNIQUE: Frontal and lateral views of the chest. COMPARISON: No relevant prior studies available. FINDINGS: Lungs: Unremarkable. No consolidation. Pleural space: Unremarkable. No pneumothorax. Heart: Unremarkable. No cardiomegaly. Mediastinum: Unremarkable. Normal mediastinal contour. Bones/joints: Unremarkable. No acute fracture. IMPRESSION: No consolidation.
[2023-11-05] MEDS ORDERED: NALOXONE 0.4 MG/ML 1 ML VIAL IVP PRN ×2 (00:54→09:15)
[2023-11-05] MEDS: AZITHROMYCIN 500 MG in SODIUM CHLORIDE 0.9% 250 ML IVPB STA (01:29)
[2023-11-05] MEDS: SODIUM CHLORIDE 0.9% 1,000 ML IV SCH (01:30)
[2023-11-05] MEDS: traZODone HCL 100 MG TAB PO STA ×2 (01:36)
[2023-11-05] MEDS: IPRATROPIUM-ALBUTEROL 3 ML NEB INHALATION PRN (05:52)
[2023-11-05] MEDS: methylPREDNISolone SOD SUCCI 125 MG/2 ML VIAL IV SCH (06:39)
[2023-11-05] MEDS: IPRATROPIUM-ALBUTEROL 3 ML NEB INHALATION SCH (07:31)
[2023-11-05] MEDS ORDERED: ACETAMINOPHEN TAB 325 MG TAB PO PRN (09:08)
[2023-11-05] MEDS ORDERED: MAG HYDROX/AL HYDROX/SIMETH 30 ML CUP PO PRN (09:08)
[2023-11-05] MEDS ORDERED: NALOXONE 0.4 MG/ML 1 ML VIAL IV PRN (09:08)
[2023-11-05] MEDS ORDERED: ONDANSETRON 4 MG/2 ML VIAL IVP PRN (09:08)
[2023-11-05] MEDS ORDERED: BENZONATATE 100 MG CAP PO PRN (09:15)
[2023-11-05] MEDS: guaiFENesin 600 MG TABLET.ER PO SCH (10:12)
[2023-11-05] MEDS: DOXYCYCLINE 100 MG CAP PO SCH (10:12)
[2023-11-05] MEDS: ALPRAZolam 0.5 MG TAB PO PRN (11:22)
--- NOTE | 2023-11-05 13:07 | P.HPIM ---
History of Present Illness H&P Date: 11/05/23 History of present illness; patient is a 53-year-old lady with past medically significant for COPD, recent admission to ICU for respiratory failure with subsequent intubation and tracheostomy with PEG tube placement who presented to hospital for shortness of breath. Patient states that she was all right couple of days ago and started noticing increasing shortness of breath. Shortness of breath was present at rest and on exertion. No complaint of cough. Denies any fever or chills. No chest pain. There is no complaint of orthopnea, PND. Patient denies any nausea, vomiting or abdominal pain. Because of the symptoms, patient went to the ER Initial lab work done in the ER showed WBC X11, hemoglobin 13.4, platelet count 401, sodium 139, potassium 4.8, BUN 17, creatinine 0.35, glucose 105, AST 44, ALT 24 albumin 4.9 EKG done in the ER showed heart rate of 88 , no ST segment elevation or depression seen, no T-wave inversions seen. Chest x-ray done in the ER no evidence of any pneumonia Patient admitted to internal medicine service REVIEW OF SYSTEMS: CONSTITUTIONAL: No fever, no malaise, no fatigue. HEENT: No recent visual problems or hearing problems. Denied any sore throat. CARDIOVASCULAR: As mentioned above PULMONARY: As mentioned above GASTROINTESTINAL: No diarrhea, no nausea, no vomiting, no abdominal pain. NEUROLOGICAL: No headaches, no weakness, no numbness. HEMATOLOGICAL: Denies any bleeding or petechiae. GENITOURINARY: Denies any burning micturition, frequency, or urgency. MUSCULOSKELETAL/RHEUMATOLOGICAL: Denies any joint pain, swelling, or any muscle pain. ENDOCRINE: Denies any polyuria or polydipsia. The rest of the 14-point review of systems is negative. PHYSICAL EXAMINATION: GENERAL: The patient is alert and oriented x3, not in any acute distress. Well developed, well nourished. HEENT: Pupils are round and equally reacting to light. EOMI. No scleral icterus. No conjunctival pallor. Normocephalic, atraumatic. No pharyngeal erythema. No th yromegaly. CARDIOVASCULAR: S1 and S2 present. No murmurs, rubs, or gallops. PULMONARY: Coarse breath sounds bilaterally, no wheezing or crackles. ABDOMEN: Soft, nontender, nondistended, normoactive bowel sounds. No palpable organomegaly. MUSCULOSKELETAL: No joint swelling or deformity. EXTREMITIES: No cyanosis, clubbing, or pedal edema. NEUROLOGICAL: Gross neurological examination did not reveal any focal deficits. SKIN: No rashes. Assessment and plan Acute hypoxic respiratory failure Acute COPD exacerbation History of HIV Moderate protein calorie malnutrition Chronic nicotine use Monitor vital signs Monitor CBC Monitor CMP Start doxycycline Continue ox supplementation Aggressive bronchopulmonary hygiene Added Mucinex Added Tessalon Perles Start IV Solu-Medrol Start breathing treatments Consult pulmonary Labs and medication were reviewed.. Continue same treatment. Continue with symptomatic treatment. Resume home medication. Monitor labs and vitals. DVT and GI prophylaxis. Further recommendations as per clinical course of the patient Dictation was produced using [employer] dictation software. please excuse any grammatical, word or spelling errors. Past Medical History Past Medical History: Asthma, Blood Disorder, COPD, CVA/TIA Additional Past Medical History / Comment(s): hiv History of Any Multi-Drug Resistant Organisms: None Reported Past Surgical History: No Surgical Hx Reported Additional Past Surgical History / Comment(s): peg and tracheostomy reversal 2023 Past Anesthesia/Blood Transfusion Reactions: No Reported Reaction Past Psychological History: Anxiety, Depression, Panic Disorder Smoking Status: Former smoker Past Alcohol Use History: None Reported, Occasional Past Drug Use History: None Reported Medications and Allergies Home Medications Medication Instructions Recorded Confirmed Type Albuterol Sulfate [Albuterol 2 puff PO RT-Q4H PRN 03/14/22 11/05/23 History Sulfate Hfa] Bictegrav/Emtricit/Tenofov Ala 1 tab PO DAILY 08/10/23 11/05/23 History [Biktarvy 50-200-25 mg Tablet] Ipratropium-Albuterol Nebulize 3 ml INHALATION RT-Q4H PRN 08/10/23 11/05/23 History [Duoneb 0.5 mg-3 mg/3 ml Soln] Sertraline [Zoloft] 50 mg PO DAILY 08/10/23 11/05/23 History traZODone HCL [Desyrel] 200 mg PO HS 08/10/23 11/05/23 History Famotidine [Pepcid] 20 mg PO BID 09/30/23 11/05/23 History ALPRAZolam [Xanax] 0.25 mg PO BID 11/05/23 11/05/23 History Ondansetron [Zofran] 4 mg PO BID PRN 11/05/23 11/05/23 History Allergies Allergy/AdvReac Type Severity Reaction Status Date / Time Milk Containing Products Allergy Nausea & Verified 11/05/23 10:11 (Dairy) Vomiting & Diarrhea Penicillins Allergy Anaphylaxis Verified 11/05/23 09:38 Physical Exam Vitals: Vital Signs Temp Pulse Pulse Resp BP BP Pulse Ox 11/05/23 08:00 97.6 F 82 25 H 129/84 94 L 11/05/23 06:03 99 11/05/23 05:50 92 11/05/23 05:35 98.0 F 84 20 147/100 97 11/05/23 00:03 104 H 24 11/04/23 23:35 98 11/04/23 22:39 97 18 161/105 99 Intake and Output 11/04/23 11/05/23 11/05/23 22:59 06:59 14:59 Intake Total 75 Balance 75 Intake: Intake, IV Titration 75 Amount Sodium Chloride 0.9% 1, 75 000 ml @ 75 mls/hr IV . [id number] [facility] Rx#:[id number] Other: # Voids 1 # Bowel Movements 1 Weight 50.802 kg 50.802 kg Results CBC & Chem 7: 11/04/23 22:58 11/04/23 22:58 Labs: Abnormal Lab Results - Last 24 Hours (Table) 11/04/23 11/04/23 11/04/23 Range/Units 22:58 22:58 22:58 MCHC 30.5 L (31.0-37.0) g/dL PT 9.7 L (10.0-12.5) sec Sodium 131 L (137-145) mmol/L Chloride 92 L (98-107) mmol/L Carbon Dioxide 34 H (22-30) mmol/L Creatinine 0.35 L (0.52-1.04) mg/dL Glucose 105 H (74-99) mg/dL AST 44 H (14-36) U/L
--- NOTE | 2023-11-05 13:25 | P.CNPUL ---
History of Present Illness Consult date: 11/05/23 Reason for consult: dyspnea, COPD History of present illness: 53-year-old female patient being seen in consultation for shortness of breath. The patient is well-known to me. She had a prolonged hospitalization approximately a month ago and her course was complicated by stroke exacerbation, prolonged respiratory failure requiring prolonged mechanical ventilation and use of a tracheostomy tube for further weaning. The patient was also given a PEG tube. She was in acute on chronic hypoxic and hypercapnic respiratory failure and she does have advanced COPD maintained on Trelegy Ellipta on outpatient basis. She is also known to have HIV maintained on Biktarvy on an outpatient basis with a CD4 count of 81. Noted following her discharge, the patient was sent to LTAC and following that she was discharged home. She is not smoking patient is being exposed to secondhand cigarette smoke. Her condition is essentially improved and she has become stronger. She has been decannulated. PEG tube is out. She is able to swallow. She came into the emergency department yesterday because of some worsening shortness of breath. Chest x-ray shows no acute abnormalities. 9 months of pleurisy. No nausea vomiting or abdominal pain. No altered mentation. The white cell count is at 6 with a hemoglobin 15.4 and a platelet count of 401. Normal coagulation profile. Normal electrolytes. The viral screen was done and this was negative. Troponins are negative. The patient is currently on oxygen at 2 L/min nasal cannula with a pulse ox of 95%. She has excessive sinus congestion at this point in time. Review of Systems Eyes: denies as per HPI, denies blurred vision, denies bulging eye, denies decreased vision, denies diplopia, denies discharge, denies dry eye, denies irritation, denies itching, denies pain, denies photophobia, denies loss of peripheral vision, denies loss of vision, denies tunnel vision/blind spots Ears: deny: decreased hearing, ear discharge, earache, tinnitus Ears, nose, mouth and throat: Reports as per HPI Breasts: absent: as per HPI, change in shape, gynecomastia, masses, nipple discharge, pain, skin changes, swelling Cardiovascular: Reports decreased exercise tolerance, Reports dyspnea on exertion Respiratory: Reports cough, Reports dyspnea, Reports wheezing Gastrointestinal: Reports as per HPI Genitourinary: Reports as per HPI Menstruation: Reports as per HPI Musculoskeletal: Reports as per HPI Musculoskeletal: absent: ankle pain, ankle stiffness, ankle swelling, as per HPI, elbow pain, elbow stiffness, elbow swelling, foot pain, foot stiffness, foot swelling, hand pain, hand stiffness, hand swelling, hip pain, hip stiffness, hip swelling, knee pain, knee stiffness, knee swelling, shoulder pain, shoulder stiffness, shoulder swelling, wrist pain, wrist stiffness, wrist swelling Neurological: Reports as per HPI Psychiatric: Reports as per HPI Endocrine: Reports as per HPI Hematologic/Lymphatic: Reports as per HPI Allergic/Immunologic: Reports as per HPI Constitutional: Reports fatigue, Reports poor appetite, Reports weight loss Eyes: denies as per HPI, denies blurred vision, denies bulging eye, denies de creased vision, denies diplopia, denies discharge, denies dry eye, denies irritation, denies itching, denies pain, denies photophobia, denies loss of peripheral vision, denies loss of vision, denies tunnel vision/blind spots Ears: deny: decreased hearing, ear discharge, earache, tinnitus Ears, nose, mouth and throat: Reports as per HPI Breasts: absent: as per HPI, change in shape, gynecomastia, masses, nipple discharge, pain, skin changes, swelling Breasts: Reports as per HPI Cardiovascular: Reports as per HPI, Reports decreased exercise tolerance, Reports dyspnea on exertion Respiratory: Reports dyspnea Gastrointestinal: Reports as per HPI Genitourinary: Reports as per HPI Menstruation: Reports as per HPI Musculoskeletal: Reports as per HPI Musculoskeletal: absent: ankle pain, ankle stiffness, ankle swelling, as per HPI, elbow pain, elbow stiffness, elbow swelling, foot pain, foot stiffness, foot swelling, hand pain, hand stiffness, hand swelling, hip pain, hip stiffness, hip swelling, knee pain, knee stiffness, knee swelling, shoulder pain, shoulder stiffness, shoulder swelling, wrist pain, wrist stiffness, wrist swelling Integumentary: Reports as per HPI Neurological: Reports as per HPI, Reports weakness Psychiatric: Reports as per HPI Endocrine: Reports as per HPI, Reports fatigue Hematologic/Lymphatic: Reports as per HPI Past Medical History Past Medical History: Asthma, Blood Disorder, COPD, CVA/TIA Additional Past Medical History / Comment(s): hiv History of Any Multi-Drug Resistant Organisms: None Reported Past Surgical History: No Surgical Hx Reported Additional Past Surgical History / Comment(s): peg and tracheostomy reversal 2023 Past Anesthesia/Blood Transfusion Reactions: No Reported Reaction Past Psychological History: Anxiety, Depression, Panic Disorder Smoking Status: Former smoker Past Alcohol Use History: None Reported, Occasional Past Drug Use History: None Reported Medications and Allergies Home Medications Medication Instructions Recorded Confirmed Type Albuterol Sulfate [Albuterol 2 puff PO RT-Q4H PRN 03/14/22 11/05/23 History Sulfate Hfa] Bictegrav/Emtricit/Tenofov Ala 1 tab PO DAILY 08/10/23 11/05/23 History [Biktarvy 50-200-25 mg Tablet] Ipratropium-Albuterol Nebulize 3 ml INHALATION RT-Q4H PRN 08/10/23 11/05/23 History [Duoneb 0.5 mg-3 mg/3 ml Soln] Sertraline [Zoloft] 50 mg PO DAILY 08/10/23 11/05/23 History traZODone HCL [Desyrel] 200 mg PO HS 08/10/23 11/05/23 History Famotidine [Pepcid] 20 mg PO BID 09/30/23 11/05/23 History ALPRAZolam [Xanax] 0.25 mg PO BID 11/05/23 11/05/23 History Ondansetron [Zofran] 4 mg PO BID PRN 11/05/23 11/05/23 History Allergies Allergy/AdvReac Type Severity Reaction Status Date / Time Milk Containing Products Allergy Nausea & Verified 11/05/23 10:11 (Dairy) Vomiting & Diarrhea Penicillins Allergy Anaphylaxis Verified 11/05/23 09:38 Physical Exam Vitals: Vital Signs Temp Pulse Pulse Resp BP BP Pulse Ox 11/05/23 09:08 94 L 11/05/23 08:00 97.6 F 82 25 H 129/84 94 L 11/05/23 06:03 99 11/05/23 05:50 92 11/05/23 05:35 98.0 F 84 20 147/100 97 11/05/23 00:03 104 H 24 11/04/23 23:35 98 11/04/23 22:39 97 18 161/105 99 Intake and Output 11/04/23 11/05/23 11/05/23 22:59 06:59 14:59 Intake Total 75 Balance 75 Intake: Intake, IV Titration 75 Amount Sodium Chloride 0.9% 1, 75 000 ml @ 75 mls/hr IV . [id number] [facility] Rx#:[id number] Other: # Voids 1 # Bowel Movements 1 Weight 50.802 kg 50.802 kg General: Revealed 52-year-old female, calm and comfortable on 2 L of oxygen by nasal cannula Skin: Skin is warm and dry and no rashes or lesions are noted. Eye: Pupils are equal, round and reactive to light, extra-ocular movements are intact Ears, nose, mouth and throat: There are moist mucous membranes and no oral lesions. Neck: The neck is supple, there is no tenderness or JVD. Tracheostomy is scar is dry clean and intact Cardiovascular: Normal S1-S2, no S3 gallop. No murmur. Respiratory: Good breath sound bilaterally no rhonchi no wheezes Gastrointestinal: Soft, nontender, no rebound no guarding, not distended, soft Musculoskeletal: Continues to have profound muscle weakness bilaterally. Neurological: Alert and oriented x 3, able to ambulate. No significant muscle atrophy. No focal neurological deficits. Psychiatric: Normal mood, affect and normal mental status examination. Results - Laboratory Findings CBC and BMP: 11/04/23 22:58 11/04/23 22:58 PT/INR, D-dimer PT 9.7 sec (10.0-12.5) L 11/04/23 22:58 INR 0.9 (<1.2) 11/04/23 22:58 Abnormal lab findings: Abnormal Labs 11/04/23 11/04/23 11/04/23 22:58 22:58 22:58 MCHC 30.5 L PT 9.7 L Sodium 131 L Chloride 92 L Carbon Dioxide 34 H Creatinine 0.35 L Glucose 105 H AST 44 H - Diagnostic Findings Chest x-ray: image reviewed Assessment and Plan Plan: Acute exacerbation of chronic COPD. Patient is has a COPD and the patient has recovered from her recent hospitalization for COPD exacerbation that was complicated by prolonged respiratory failure. Chest x-ray is free of any acute pulmonary infiltrates. She is currently on 2 L of oxygen by nasal cannula History of prolonged respiratory failure due to acute exacerbation and the patient was intubated on 08/13/2023 and the patient is a tracheostomy tube insertion on 08/23/2023 for prolonged ventilator dependent respiratory failure. Chest x-ray remains free of any pulm pulmonary infiltrates. Bronchoscopy yielded Rimma. Ultimately the patient was weaned off the mechanical ventilator. Went to LTAC and she improved and the tracheostomy was decannulated. Advanced COPD at baseline and the patient has been maintained on Trelegy Ellipta on outpatient basis History of smoking, currently inactive History of HIV currently on Biktarvy. Viral count and CD4 counts are not known. No previous history of a persistent infections. The patient has not been receiving any form of antibiotic treatments such as Bactrim. Her infectious disease doctor is Dr. Salguero. The CD4 count is at 81 Left upper lobe pulmonary nodule measuring 9 mm in size, nonspecific finding. Plan titrate oxygen flow to maintain saturation above 90%, currently on [address] [facility] May utilize Trelegy Ellipta from home and this should be also continued on outpatient basis Not smoking for now IV Solu-Medrol Continue Biktarvy Resume home medications Will continue to follow
[2023-11-05] MEDS ORDERED: ONDANSETRON 4 MG TAB PO PRN (18:56)
[2023-11-05] MEDS: BUDESONIDE 0.5 MG/2 ML NEBU INHALATION SCH (20:33)
[2023-11-05] MEDS: FORMOTEROL FUMARATE 20 MCG/2 ML NEBU INHALATION SCH (20:33)
[2023-11-05] MEDS: traZODone HCL 100 MG TAB PO SCH (20:52)
[2023-11-05] MEDS: FAMOTIDINE 20 MG TAB PO SCH (20:53)
[2023-11-05] MEDS ORDERED: MELATONIN 3 MG TABLET PO PRN (21:00)
[2023-11-06] MEDS: ENOXAPARIN 40 MG/0.4 ML SYRINGE SQ SCH (08:37)
[2023-11-06] MEDS: SERTRALINE 50 MG TAB PO SCH (08:43)
[2023-11-06 10:45] LABS: Basophils # (A) 0 X 10*3/uL (0.00-0.10); Basophils % (A) 0 %; Eosinophils # (A) 0 X 10*3/uL (0.04-0.35); Eosinophils % (A) 0 %; HCT 33.4 % (37.2-46.3); HGB 10.6 g/dL (12.0-15.0); Lymphocytes # (A) 0.79 X 10*3/uL (0.90-5.00); Lymphocytes % (A) 18.3 %; MCH 30.8 pg (27.0-32.0); MCHC 31.7 g/dL (32.0-37.0); MCV 97.1 FL (80.0-97.0); Mean Platelet Volume 8.9 FL (9.5-12.2); Monocytes # (A) 0.19 X 10*3/uL (0.20-1.00); Monocytes % (A) 4.4 %; NRBC Per 100 WBC 0 X 10*3/uL (0.00-0.01); Neutrophils # (A) 3.32 X 10*3/uL (1.80-7.70); Neutrophils % (A) 77.1 %; Platelet Count 353 X 10*3/uL (140-440); RBC 3.44 X 10*6/uL (4.10-5.20); RDW 14.6 % (11.5-14.5); WBC 4.31 X 10*3/uL (4.50-10.00)
[2023-11-06 10:53] LABS: ALT 16 U/L (8-44); AST 15 U/L (13-35); Albumin/Globulin Ratio 2.11 Ratio (1.60-3.17); Alkaline Phosphatase 77 U/L (41-126); Blood Urea Nitrogen 15.2 mg/dL (9.0-27.0); Calcium 9.1 mg/dL (8.7-10.3); Carbon Dioxide 30.5 mmol/L (21.6-31.8); Chloride 100 mmol/L (96-109); Globulin 1.9 g/dL (1.6-3.3); Glucose 159 mg/dL (70-110); Potassium 4.7 mmol/L (3.5-5.5); Sodium 138 mmol/L (135-145); Total Bilirubin <0.2 mg/dL (0.3-1.2); Total Protein 5.9 g/dL (6.2-8.2)
[2023-11-06] MEDS: NON FORMULARY DRUG (Bictegrav/Emtricit/Tenofov Ala [Biktarvy 50-200-25 Mg Tablet] 1 EACH T PO SCH ×2 (11:28→11:34)
[2023-11-06 12:00] LABS: Glucose,Whole Blood 141 mg/dL (70-110)
[2023-11-06 12:36] VITALS: BMI 21.1
--- NOTE | 2023-11-06 12:41 | P.PN ---
Subjective Progress Note Date: 11/06/23 53-year-old female patient being seen in consultation for shortness of breath. The patient is well-known to me. She had a prolonged hospitalization approximately a month ago and her course was complicated by stroke exacerbation, prolonged respiratory failure requiring prolonged mechanical ventilation and use of a tracheostomy tube for further weaning. The patient was also given a PEG tube. She was in acute on chronic hypoxic and hypercapnic respiratory failure and she does have advanced COPD maintained on Trelegy Ellipta on outpatient basis. She is also known to have HIV maintained on Biktarvy on an outpatient basis with a CD4 count of 81. Noted following her discharge, the patient was sent to LTAC and following that she was discharged home. She is not smoking patient is being exposed to secondhand cigarette smoke. Her condition is essentially improved and she has become stronger. She has been decannulated. PEG tube is out. She is able to swallow. She came into the emergency dep artment yesterday because of some worsening shortness of breath. Chest x-ray shows no acute abnormalities. 9 months of pleurisy. No nausea vomiting or abdominal pain. No altered mentation. The white cell count is at 6 with a hemoglobin 15.4 and a platelet count of 401. Normal coagulation profile. Normal electrolytes. The viral screen was done and this was negative. Troponins are negative. The patient is currently on oxygen at 2 L/min nasal cannula with a pulse ox of 95%. She has excessive sinus congestion at this point in time. The patient is seen today November 06, 2023 in follow-up in the regular medical floor. She is currently sitting up in bed. Awake and alert in no acute distre ss. She is currently maintaining good O2 saturations in the 90s on 2 L/min per nasal cannula. She has been afebrile. Hemodynamically stable. She is continued on DuoNeb inhalations, Pulmicort and Perforomist inhalations, Solu- Medrol. Empiric antibiotics in the form of doxycycline. White count 4.3. Hemoglobin 10.6. Platelets 353. Sodium 138. Potassium 4.7. Bicarb 31. BUN 15. Creatinine 0.4. Glucose 159. Viral screen was negative. Objective - Vital Signs Vital signs: Vital Signs Temp 97.8 F 11/06/23 07:47 Pulse 80 11/06/23 12:06 Resp 16 11/06/23 08:38 BP 117/65 11/06/23 07:47 Pulse Ox 99 11/06/23 07:47 FiO2 Intake & Output 11/05/23 11/06/23 11/06/23 18:59 06:59 18:59 Intake Total 238 0 221 Balance 238 0 221 Intake: Oral 238 0 221 Other: Voiding Method Toilet Toilet Toilet # Voids 1 # Bowel Movements 1 - Exam GENERAL EXAM: Alert, pleasant, thin 53-year-old female, on 2 L nasal cannula, comfortable in no apparent distress. HEAD: Normocephalic. EYES: Normal reaction of pupils, equal size. NOSE: Clear with pink turbinates. THROAT: No erythema or exudates. Dressing over previous tracheostomy site clean and dry. NECK: No masses, no JVD. CHEST: No chest wall deformity. LUNGS: Equal air entry with no crackles, wheeze, rhonchi or dullness. CVS: S1 and S2 normal with no audible murmur, regular rhythm. ABDOMEN: Former PEG tube site clean and dry. No hepatosplenomegaly, normal bowel sounds, no guarding or rigidity. SPINE: No scoliosis or deformity SKIN: No rashes CENTRAL NERVOUS SYSTEM: No focal deficits, tone is normal in all 4 extremities. EXTREMITIES: There is no peripheral edema. No clubbing, no cyanosis. Peripheral pulses are intact. - Labs CBC & Chem 7: 11/06/23 06:40 11/06/23 06:40 Labs: Abnormal Lab Results - Last 24 Hours (Table) 11/06/23 11/06/23 11/06/23 Range/Units 06:40 06:40 11:59 WBC 4.31 L (4.50-10.00) X 10*3/uL RBC 3.44 L (4.10-5.20) X 10*6/uL Hgb 10.6 L (12.0-15.0) g/dL Hct 33.4 L (37.2-46.3) % MCV 97.1 H (80.0-97.0) FL MCHC 31.7 L (32.0-37.0) g/dL RDW 14.6 H (11.5-14.5) % MPV 8.9 L (9.5-12.2) FL Lymphocytes # 0.79 L (0.90-5.00) X 10*3/uL Monocytes # 0.19 L (0.20-1.00) X 10*3/uL Eosinophils # 0 L (0.04-0.35) X 10*3/uL Creatinine 0.4 L (0.6-1.5) mg/dL BUN/Creatinine Ratio 38.00 H (12.00-20.00) Ratio Glucose 159 H (70-110) mg/dL POC Glucose (mg/dL) 141 H (70-110) mg/dL Total Bilirubin <0.2 L (0.3-1.2) mg/dL Total Protein 5.9 L (6.2-8.2) g/dL Assessment and Plan Assessment: Acute exacerbation of chronic COPD. Patient is has a COPD and the patient has recovered from her recent hospitalization for COPD exacerbation that was complicated by prolonged respiratory failure. Chest x-ray is free of any acute pulmonary infiltrates. Procalcitonin negative at 0.03 History of prolonged respiratory failure due to acute exacerbation and the patient was intubated on 08/13/2023 and the patient is a tracheostomy tube insertion on 08/23/2023 for prolonged ventilator dependent respiratory failure. Chest x-ray remains free of any pulmonary infiltrates. Bronchoscopy yielded Rimma. Ultimately the patient was weaned off the mechanical ventilator. Went to LTAC and she improved and the tracheostomy was decannulated. Advanced COPD at baseline and the patient has been maintained on Trelegy Ellipta on outpatient basis History of smoking, currently inactive History of HIV currently on Biktarvy. Viral counts are not known. No previous history of a persistent infections. The patient has not been receiving any form of antibiotic treatments such as Bactrim. Her infectious disease doctor is Dr. Salguero. The CD4 count is at 81 Left upper lobe pulmonary nodule measuring 9 mm in size, nonspecific finding. Plan: The patient was seen and evaluated Labs and medication reviewed Currently stable and on 2 L nasal cannula Continue the current treatment plan Probable discharge in the a.m. We will continue to follow I have personally seen and examined the patient, performed the documentation and the assessment and plan as written. Number of minutes spent on the visit: 10.
[2023-11-07 02:38] VITALS: RESP 16
[2023-11-07 07:05] VITALS: BP 126/86; TEMP 97.9
[2023-11-07 09:00] VITALS: PULSE 84
--- NOTE | 2023-11-07 12:24 | P.PN ---
Subjective Progress Note Date: 11/07/23 53-year-old female patient being seen in consultation for shortness of breath. The patient is well-known to me. She had a prolonged hospitalization approximately a month ago and her course was complicated by stroke exacerbation, prolonged respiratory failure requiring prolonged mechanical ventilation and use of a tracheostomy tube for further weaning. The patient was also given a PEG tube. She was in acute on chronic hypoxic and hypercapnic respiratory failure and she does have advanced COPD maintained on Trelegy Ellipta on outpatient basis. She is also known to have HIV maintained on Biktarvy on an outpatient basis with a CD4 count of 81. Noted following her discharge, the patient was sent to LTAC and following that she was discharged home. She is not smoking patient is being exposed to secondhand cigarette smoke. Her condition is essentially improved and she has become stronger. She has been decannulated. PEG tube is out. She is able to swallow. She came into the emergency dep artment yesterday because of some worsening shortness of breath. Chest x-ray shows no acute abnormalities. 9 months of pleurisy. No nausea vomiting or abdominal pain. No altered mentation. The white cell count is at 6 with a hemoglobin 15.4 and a platelet count of 401. Normal coagulation profile. Normal electrolytes. The viral screen was done and this was negative. Troponins are negative. The patient is currently on oxygen at 2 L/min nasal cannula with a pulse ox of 95%. She has excessive sinus congestion at this point in time. The patient is seen today November 06, 2023 in follow-up in the regular medical floor. She is currently sitting up in bed. Awake and alert in no acute distre ss. She is currently maintaining good O2 saturations in the 90s on 2 L/min per nasal cannula. She has been afebrile. Hemodynamically stable. She is continued on DuoNeb inhalations, Pulmicort and Perforomist inhalations, Solu- Medrol. Empiric antibiotics in the form of doxycycline. White count 4.3. Hemoglobin 10.6. Platelets 353. Sodium 138. Potassium 4.7. Bicarb 31. BUN 15. Creatinine 0.4. Glucose 159. Viral screen was negative. The patient is seen today November 07, 2023 in follow-up on the regular medical floor. She is awake and alert in no acute distress. Feeling quite a bit better today compared to yesterday. She is maintaining good O2 saturations in the 90s on 2 L/min per nasal cannula. Blood cultures revealed no growth. Blood sugar 141. She remains on DuoNeb inhalations, Pulmicort and Perforomist inhalations, Solu-Medrol and Mucinex. Lovenox for DVT prophylaxis. Empiric antibiotics in the form of Vibramycin. Objective - Vital Signs Vital signs: Vital Signs Temp 97.9 F 11/07/23 07:05 Pulse 84 11/07/23 09:09 Resp 16 11/07/23 07:05 BP 126/86 11/07/23 07:05 Pulse Ox 97 11/07/23 07:05 FiO2 Intake & Output 11/06/23 11/07/23 11/07/23 18:59 06:59 18:59 Intake Total 457 220 Balance 457 220 Weight 50.802 kg Intake: Oral 457 220 Other: Voiding Method Toilet # Voids 2 2 # Bowel Movements 1 - Exam GENERAL EXAM: Alert, 53-year-old female, sitting up in bed, on 2 L nasal cannula, in no apparent distress. HEAD: Normocephalic. EYES: Normal reaction of pupils, equal size. NOSE: Clear with pink turbinates. THROAT: No erythema or exudates. Dressing over previous tracheostomy site clean and dry. NECK: No masses, no JVD. CHEST: No chest wall deformity. LUNGS: Equal air entry with no crackles, wheeze, rhonchi or dullness. CVS: S1 and S2 normal with no audible murmur, regular rhythm. ABDOMEN: Former PEG tube site clean and dry. No hepatosplenomegaly, normal bowel sounds, no guarding or rigidity. SPINE: No scoliosis or deformity SKIN: No rashes CENTRAL NERVOUS SYSTEM: No focal deficits, tone is normal in all 4 extremities. EXTREMITIES: There is no peripheral edema. No clubbing, no cyanosis. Peripheral pulses are intact. - Labs CBC & Chem 7: 11/06/23 06:40 11/06/23 06:40 Labs: Microbiology - Last 24 Hours (Table) 11/04/23 23:05 Blood Culture - Preliminary Blood 11/04/23 22:50 Blood Culture - Preliminary Blood Assessment and Plan Assessment: Acute exacerbation of chronic COPD. Patient is has a COPD and the patient has recovered from her recent hospitalization for COPD exacerbation that was complicated by prolonged respiratory failure. Chest x-ray is free of any acute pulmonary infiltrates. Procalcitonin negative at 0.03 History of prolonged respiratory failure due to acute exacerbation and the patient was intubated on 08/13/2023 and the patient is a tracheostomy tube insertion on 08/23/2023 for prolonged ventilator dependent respiratory failure. Chest x-ray remains free of any pulmonary infiltrates. Bronchoscopy yielded Rimma. Ultimately the patient was weaned off the mechanical ventilator. Went to LTAC and she improved and the tracheostomy was decannulated. Advanced COPD at baseline and the patient has been maintained on Trelegy Ellipta on outpatient basis History of smoking, currently inactive History of HIV currently on Biktarvy. No previous history of a persistent infections. Her infectious disease doctor is Dr. Salguero. Left upper lobe pulmonary nodule measuring 9 mm in size, nonspecific finding. Plan: The patient was seen and evaluated Labs and medication reviewed Cleared for discharge from the pulmonary standpoint Continue her home oxygen, nebulized treatments Continue her Trelegy, albuterol HFA Complete a prednisone taper Follow-up in our office in 1 week This patient was seen independently by the pulmonary nurse practitioner addressing pulmonary issues I have personally seen and examined the patient, performed the documentation and the assessment and plan as written. Number of minutes spent on the visit: 25.
== END 2023-11-07 14:05 | disposition home or self-care (01) ==
LOC: EC 22:22 → INTOOBSV 11-05 00:54 → 5NMEDONC 11-05 00:54 → 6NMEDSUR 11-05 05:05 → UNDODISIN 11-07 14:05
PROVIDERS: ADMIT Hospitalist; ATTEND Hospitalist
DX: J44.1 Chronic obstructive pulmonary disease with (acute) exacerbation (principal); J96.01 Acute respiratory failure with hypoxia; F32.A Depression, unspecified; F41.9 Anxiety disorder, unspecified; R91.1 Solitary pulmonary nodule; E44.0 Moderate protein-calorie malnutrition; Z68.21 Body mass index [BMI] 21.0-21.9, adult; Z21 Asymptomatic human immunodeficiency virus [HIV] infection status; Z93.0 Tracheostomy status; Z86.73 Personal history of transient ischemic attack (TIA), and cerebral infarction without residual deficits; Z87.891 Personal history of nicotine dependence; Z79.899 Other long term (current) drug therapy; Z79.51 Long term (current) use of inhaled steroids; Z88.0 Allergy status to penicillin; Z11.52 Encounter for screening for COVID-19
CPT/HCPCS: 96376 ×4; 96361 ×3; 96372 ×2; 96365; 96366; 96375; 99291; 36415; 94640 ×6; 93005; 83880; 80053 ×2; 83605; 83735; 84484; 85025 ×2; 85610; 85730; 87040; 84145; 87636; 71046; G0378 ×3; J0456; J1650 ×2; J2919 ×4

== ENCOUNTER 2023-11-27 00:24 | Inpatient (IN) | payer MEDICARE, OTHER ==
[2023-11-27] MEDS: predniSONE 20 MG TAB PO STA (01:26)
[2023-11-27 01:30] LABS: ALT 27 U/L (4-34); AST 30 U/L (14-36); African American GFR (CKD) >90 (>60 ml/min/1.73 sqM); Albumin 4.3 g/dL (3.5-5.0); Alkaline Phosphatase 61 U/L (38-126); Anion Gap 3 mmol/L; Blood Urea Nitrogen 11 mg/dL (7-17); Carbon Dioxide 33 mmol/L (22-30); Chloride 83 mmol/L (98-107); Glucose 104 mg/dL (74-99); Non-African American GFR(CKD) >90 (>60 ml/min/1.73 sqM); Potassium 4.1 mmol/L (3.5-5.1); Total Bilirubin 0.5 mg/dL (0.2-1.3); Total Protein 6.5 g/dL (6.3-8.2)
[2023-11-27 01:33] LABS: Basophils % (A) 0 %; Eosinophils # (A) 0.1 k/uL (0-0.7); Eosinophils % (A) 2 %; HCT 39.1 % (34.0-46.0); HGB 12.4 gm/dL (11.4-16.0); Lymphocytes # (A) 2.5 k/uL (1.0-4.8); Lymphocytes % (A) 41 %; MCH 31.1 pg (25.0-35.0); MCHC 31.8 g/dL (31.0-37.0); MCV 97.8 fL (80.0-100.0); Mean Platelet Volume 6.7; Monocytes # (A) 0.6 k/uL (0-1.0); Monocytes % (A) 9 %; Neutrophils # (A) 2.9 k/uL (1.3-7.7); Neutrophils % (A) 46 %; Platelet Count 298 k/uL (150-450); RDW 14.2 % (11.5-15.5); WBC 6.3 k/uL (3.8-10.6)
[2023-11-27 01:34] LABS: INR 0.9 (<1.2); Partial Thromboplastin Time 26.3 sec (22.0-30.0); Prothrombin Time 10.1 sec (10.0-12.5)
--- NOTE | 2023-11-27 01:56 | XR ---
EXAM: XR Chest, 1 View CLINICAL HISTORY: ITS.REASON XR Reason: dyspnea TECHNIQUE: Frontal view of the chest. COMPARISON: 11/24/2023 FINDINGS: Lungs: No consolidation. No overt edema. Pleural space: No pleural effusion. No pneumothorax. Heart: Unremarkable. No cardiomegaly. IMPRESSION: No acute cardiopulmonary abnormality.
[2023-11-27] MEDS ORDERED: NALOXONE 0.4 MG/ML 1 ML VIAL IVP PRN (02:33)
[2023-11-27 02:38] LABS: Sodium 119 mmol/L (137-145)
[2023-11-27] MEDS: IPRATROPIUM-ALBUTEROL 3 ML NEB INHALATION PRN (02:46)
[2023-11-27] MEDS: SODIUM CHLORIDE 0.9% 1,000 ML BAG IV STA (02:55)
[2023-11-27 03:02] LABS: VBG PH 7.37 (7.31-7.41)
--- NOTE | 2023-11-27 03:33 | ED ---
SOB HPI - General Chief Complaint: Shortness of Breath Stated Complaint: TK Time Seen by Provider: 11/27/23 00:28 Source: patient, EMS Mode of arrival: EMS Limitations: no limitations - History of Present Illness Initial Comments: This patient is a 53-year-old woman with history of COPD who presents with what she believes is exacerbation of her COPD going on about a day now. Patient describes shortness of breath, indicates she does have some chest tightness. She has noted a little bit of cough, no sputum. No fever or chills noted. No hemoptysis. The patient states she has been using her inhaled medication but they are not helping very much at this point. Patient states that she is currently on a prednisone taper, states she believes she is down to 10 mg/day. MD Complaint: shortness of breath, cough Onset/Timin -: days(s) Severity scale (1-10): 0 Consistency: constant Improves With: upright position Worsens With: exertion Known History Of: COPD Associated Symptoms: cough Treatments Prior to Arrival: bronchodilator - Related Data Home Medications Medication Instructions Recorded Confirmed Albuterol Sulfate [Albuterol 2 puff PO RT-Q4H PRN 03/14/22 11/27/23 Sulfate Hfa] Bictegrav/Emtricit/Tenofov Ala 1 tab PO DAILY 08/10/23 11/27/23 [Biktarvy 50-200-25 mg Tablet] Ipratropium-Albuterol Nebulize 3 ml INHALATION RT-Q4H PRN 08/10/23 11/27/23 [Duoneb 0.5 mg-3 mg/3 ml Soln] Famotidine [Pepcid] 20 mg PO BID 09/30/23 11/27/23 Ondansetron [Zofran] 4 mg PO BID PRN 11/05/23 11/27/23 ALPRAZolam [Xanax] 0.5 mg PO BID 11/27/23 11/27/23 Diurex 2 tab PO Q4H PRN MDD 6 tabs 11/27/23 11/27/23 Fluticasone Propionate [Flonase 1 - 2 spray EA NOSTRIL DAILY PRN 11/27/23 11/27/23 Allergy Relief] Ibuprofen [Motrin Ib] 200 - 400 mg PO Q6H PRN 11/27/23 11/27/23 Motrin Dual Action 2 tab PO Q6H PRN 11/27/23 11/27/23 Simethicone [Gas-X] 125 - 250 mg PO ACHS PRN MDD 4 11/27/23 11/27/23 pills Previous Rx's Medication Instructions Recorded Fluticasone/Umeclidin/Vilanter 1 inhalation INHALATION DAILY #1 11/07/23 [Trelegy Ellipta 100-62.5-25] each Bictegrav/Emtricit/Tenofov Ala 1 each PO DAILY #30 tab 11/27/23 [Biktarvy 50-200-25 mg Tablet] predniSONE See Taper PO DAILY 14 Days #32 tab 11/28/23 Mirtazapine [Remeron] 7.5 mg PO HS 30 Days #30 tab 12/25/23 Allergies Allergy/AdvReac Type Severity Reaction Status Date / Time Penicillins Allergy Anaphylaxis Verified 12/25/23 16:08 Milk Containing Products AdvReac Nausea & Verified 12/25/23 16:08 (Dairy) Vomiting & Diarrhea Review of Systems ROS Statement: Those systems with pertinent positive or pertinent negative responses have been documented in the HPI. ROS Other: All systems not noted in ROS Statement are negative. Constitutional: Denies: fever, chills, weakness Respiratory: Reports: cough, dyspnea, wheezes. Denies: hemoptysis Cardiovascular: Reports: dyspnea on exertion. Denies: chest pain, palpitations, edema, syncope Gastrointestinal: Denies: abdominal pain, nausea, vomiting, diarrhea Genitourinary: Denies: dysuria, hematuria Musculoskeletal: Denies: back pain Skin: Denies: rash Neurological: Denies: headache, weakness Psychiatric: Reports: anxiety Past Medical History Past Medical History: Asthma, Blood Disorder, COPD, CVA/TIA Additional Past Medical History / Comment(s): hiv History of Any Multi-Drug Resistant Organisms: None Reported Past Surgical History: No Surgical Hx Reported Additional Past Surgical History / Comment(s): peg and tracheostomy reversal 2023 Past Anesthesia/Blood Transfusion Reactions: No Reported Reaction Past Psychological History: Anxiety, Depression, Panic Disorder Smoking Status: Former smoker Past Alcohol Use History: None Reported, Occasional Past Drug Use History: None Reported - Past Family History Mother History Unknown: Yes General Exam Limitations: no limitations General appearance: alert, in distress Head exam: Present: atraumatic, normocephalic Eye exam: Present: normal appearance. Absent: scleral icterus, conjunctival injection Neck exam: Present: normal inspection Respiratory exam: Present: respiratory distress, wheezes, accessory muscle use, decreased breath sounds, prolonged expiratory, other (Pursed-lip Breathing). Absent: rales, rhonchi, stridor, chest wall tenderness Cardiovascular Exam: Present: regular rate, normal rhythm, normal heart sounds. Absent: systolic murmur, diastolic murmur, rubs, gallop GI/Abdominal exam: Present: soft. Absent: distended, tenderness, guarding, rebound, rigid, mass Extremities exam: Present: normal inspection, normal capillary refill. Absent: pedal edema, calf tenderness Back exam: Present: normal inspection. Absent: CVA tenderness (R), CVA tenderness (L) Neurological exam: Present: alert Skin exam: Present: warm, dry, intact, normal color. Absent: rash Course Vital Signs 11/27/23 11/27/23 11/27/23 00:25 02:00 02:46 Temperature 97.1 F L Pulse Rate 81 90 93 Respiratory 28 H 24 Rate Blood Pressure 179/101 163/99 O2 Sat by Pulse 99 96 Oximetry Fraction of 50 Inspired Oxygen (FIO2) 11/27/23 11/27/23 11/27/23 02:56 05:38 07:37 Temperature Pulse Rate 89 81 89 Respiratory 28 H Rate Blood Pressure 148/91 O2 Sat by Pulse 97 98 Oximetry Fraction of Inspired Oxygen (FIO2) 11/27/23 11/27/23 11/27/23 07:51 08:27 10:33 Temperature 98.7 F Pulse Rate 92 81 76 Respiratory 18 20 Rate Blood Pressure 149/93 129/84 O2 Sat by Pulse 98 93 L Oximetry Fraction of Inspired Oxygen (FIO2) Medical Decision Making - Medical Decision Making The patient had chest x-ray that I interpreted as negative for acute infiltrate, pneumothorax, congestive heart failure Was pt. sent in by a medical professional or institution (, PA, CHIEF AIRLINE RADIO OPERATOR, urgent care, hospital, or detention...) When possible be specific @ -[No] Did you speak to anyone other than the patient for history (EMS, parent, family, police, friend...)? What history was obtained from this source @ -[No] Did you review nursing and triage notes (agree or disagree)? Why? @ -[I reviewed and agree with nursing and triage notes] Were old charts reviewed (outside hosp., previous admission, EMS record, old EKG, old radiological studies, urgent care reports/EKG's, detention records)? Report findings @ -[No old charts were reviewed] Differential Diagnosis (chest pain, altered mental status, abdominal pain women, abdominal pain men, vaginal bleeding, weakness, fever, dyspnea, syncope, headache, dizziness, GI bleed, back pain, seizure, CVA, palpatations, mental health, musculoskeletal)? @ -[Differential Dyspnea: Coronary syndrome, arrhythmia, tamponade, asthma, COPD, pulmonary embolism, pneumonia, pneumothorax, pulmonary effusion, anaphylaxis, diabetic ketoacidosis, flailed chest, pulmonary contusion, diaphragmatic rupture, anemia, neuromuscular, this is not meant to be an all-inclusive list. EKG interpreted by me (3pts min.). @ -[As above] X-rays interpreted by me (1pt min.). @ -[I interpreted as above CT interpreted by me (1pt min.). @ -[None done] U/S interpreted by me (1pt. min.). @ -[None done] What testing was considered but not performed or refused? (CT, X-rays, U/S, labs)? Why? @ -[None] What meds were considered but not given or refused? Why? @ -[None] Did you discuss the management of the patient with other professionals (professionals i.e. , PA, CHIEF AIRLINE RADIO OPERATOR, lab, RT, psych nurse, elementary school social worker, procurement clerk, teacher, preventive medicine officer, case filler)? Give summary @ -[Case discussed with admitting physician and treatment recommendations are incorporated Was smoking cessation discussed for >3mins.? @ -[No] Was critical care preformed (if so, how long)? @ -[No] Were there social determinants of health that impacted care today? How? (Homelessness, low income, unemployed, alcoholism, drug addiction, transportation, low edu. Level, literacy, decrease access to med. care, usp, rehab)? @ -[No] Was there de-escalation of care discussed even if they declined (Discuss DNR or withdrawal of care, Hospice)? DNR status @ -[No] What co-morbidities impacted this encounter? (DM, HTN, Smoking, COPD, CAD, Cancer, CVA, ARF, Chemo, Hep., AIDS, mental health diagnosis, sleep apnea, morbid obesity)? @ -[COPD Was patient admitted / discharged? Hospital course, mention meds given and route, prescriptions, significant lab abnormalities, going to OR and other pertinent info. @ -[Patient is a 53-year-old woman here with exacerbation of her underlying COPD. The workup also finds that she has marked hyponatremia. The patient started on treatment for both COPD and hyponatremia and will be admitted Undiagnosed new problem with uncertain prognosis? @ -[No] Drug Therapy requiring intensive monitoring for toxicity (Heparin, Nitro, Insulin, Cardizem)? @ -[No] Were any procedures done? @ -[No] Diagnosis/symptom? @ -[Acute exacerbation of COPD Acute hyponatremia Acute, or Chronic, or Acute on Chronic? @ -[Acute Uncomplicated (without systemic symptoms) or Complicated (systemic symptoms)? @ -[Uncomplicated Side effects of treatment? @ -[No] Exacerbation, Progression, or Severe Exacerbation? @ -[No] Poses a threat to life or bodily function? How? (Chest pain, USA, PR, pneumonia, PE, COPD, DKA, ARF, appy, cholecystitis, CVA, Diverticulitis, Homicidal, Suicidal, threat to staff... and all critical care pts) @ -[Yes - Lab Data Result diagrams: 11/28/23 06:17 11/28/23 06:17 Lab Results 11/27/23 11/27/23 11/27/23 Range/Units 00:51 00:51 00:51 WBC 6.3 (3.8-10.6) k/uL RBC 4.00 (3.80-5.40) m/uL Hgb 12.4 (11.4-16.0) gm/dL Hct 39.1 (34.0-46.0) % MCV 97.8 (80.0-100.0) fL MCH 31.1 (25.0-35.0) pg MCHC 31.8 (31.0-37.0) g/dL RDW 14.2 (11.5-15.5) % Plt Count 298 (150-450) k/uL MPV 6.7 Neutrophils % 46 % Lymphocytes % 41 % Monocytes % 9 % Eosinophils % 2 % Basophils % 0 % Neutrophils # 2.9 (1.3-7.7) k/uL Lymphocytes # 2.5 (1.0-4.8) k/uL Monocytes # 0.6 (0-1.0) k/uL Eosinophils # 0.1 (0-0.7) k/uL Basophils # 0.0 (0-0.2) k/uL PT 10.1 (10.0-12.5) sec INR 0.9 (<1.2) APTT 26.3 (22.0-30.0) sec D-Dimer 0.30 (<0.60) mg/L FEU Sodium 119 L* (137-145) mmol/L Potassium 4.1 (3.5-5.1) mmol/L Chloride 83 L (98-107) mmol/L Carbon Dioxide 33 H (22-30) mmol/L Anion Gap 3 mmol/L BUN 11 (7-17) mg/dL Creatinine 0.33 L (0.52-1.04) mg/dL Est GFR (CKD-EPI)AfAm >90 (>60 ml/min/1.73 sqM) Est GFR (CKD-EPI)NonAf >90 (>60 ml/min/1.73 sqM) Glucose 104 H (74-99) mg/dL Plasma Lactic Acid Jarad (0.7-2.0) mmol/L Calcium 9.0 (8.4-10.2) mg/dL Total Bilirubin 0.5 (0.2-1.3) mg/dL AST 30 (14-36) U/L ALT 27 (4-34) U/L Alkaline Phosphatase 61 (38-126) U/L Troponin I (0.000-0.034) ng/mL Total Protein 6.5 (6.3-8.2) g/dL Albumin 4.3 (3.5-5.0) g/dL 11/27/23 11/27/23 Range/Units 00:51 00:51 WBC (3.8-10.6) k/uL RBC (3.80-5.40) m/uL Hgb (11.4-16.0) gm/dL Hct (34.0-46.0) % MCV (80.0-100.0) fL MCH (25.0-35.0) pg MCHC (31.0-37.0) g/dL RDW (11.5-15.5) % Plt Count (150-450) k/uL MPV Neutrophils % % Lymphocytes % % Monocytes % % Eosinophils % % Basophils % % Neutrophils # (1.3-7.7) k/uL Lymphocytes # (1.0-4.8) k/uL Monocytes # (0-1.0) k/uL Eosinophils # (0-0.7) k/uL Basophils # (0-0.2) k/uL PT (10.0-12.5) sec INR (<1.2) APTT (22.0-30.0) sec D-Dimer (<0.60) mg/L FEU Sodium (137-145) mmol/L Potassium (3.5-5.1) mmol/L Chloride (98-107) mmol/L Carbon Dioxide (22-30) mmol/L Anion Gap mmol/L BUN (7-17) mg/dL Creatinine (0.52-1.04) mg/dL Est GFR (CKD-EPI)AfAm (>60 ml/min/1.73 sqM) Est GFR (CKD-EPI)NonAf (>60 ml/min/1.73 sqM) Glucose (74-99) mg/dL Plasma Lactic Acid Jarad 0.7 (0.7-2.0) mmol/L Calcium (8.4-10.2) mg/dL Total Bilirubin (0.2-1.3) mg/dL AST (14-36) U/L ALT (4-34) U/L Alkaline Phosphatase (38-126) U/L Troponin I <0.012 (0.000-0.034) ng/mL Total Protein (6.3-8.2) g/dL Albumin (3.5-5.0) g/dL - EKG Data -: EKG Interpreted by Me EKG shows normal: sinus rhythm (With sinus arrhythmia), axis (Normal), intervals ( normal), QRS complexes (Normal), ST-T waves (Normal) Rate: normal (Rate 83 bpm) Disposition Clinical Impression: COPD (chronic obstructive pulmonary disease), Hyponatremia Disposition: ADMITTED IP TO THIS [facility] Condition: Fair Is patient prescribed a controlled substance at d/c from ED?: No
[2023-11-27] MEDS: ONDANSETRON 4 MG/2 ML VIAL IVP STA (05:32)
[2023-11-27] MEDS: SYMBICORT 80-4.5 MCG INHALER INHALATION SCH (07:37)
[2023-11-27] MEDS: IPRATROPIUM-ALBUTEROL 3 ML NEB INHALATION SCH (07:37)
[2023-11-27] MEDS: AZITHROMYCIN 500 MG TAB PO SCH (08:24)
[2023-11-27] MEDS: FAMOTIDINE 20 MG TAB PO SCH (08:24)
[2023-11-27] MEDS: predniSONE 20 MG TAB PO SCH (08:25)
[2023-11-27] MEDS: ALPRAZolam 0.25 MG TAB PO SCH (08:25)
[2023-11-27] MEDS: SERTRALINE 50 MG TAB PO SCH (09:25)
[2023-11-27 11:59] LABS: African American GFR (CKD) >90 (>60 ml/min/1.73 sqM); Anion Gap 3 mmol/L; Blood Urea Nitrogen 7 mg/dL (7-17); Calcium 9.1 mg/dL (8.4-10.2); Carbon Dioxide 32 mmol/L (22-30); Chloride 87 mmol/L (98-107); Glucose 129 mg/dL (74-99); Non-African American GFR(CKD) >90 (>60 ml/min/1.73 sqM); Potassium 4.8 mmol/L (3.5-5.1); Sodium 122 mmol/L (137-145)
[2023-11-27 13:31] LABS: Creatinine,Urine Random 21.5 mg/dL; Protein/Creatinine Ratio,Urine 0.744
--- NOTE | 2023-11-27 15:47 | P.HPIM ---
History of Present Illness H&P Date: 11/27/23 History of present illness; 53-year-old female presents to the emergency department with what she believes to be COPD exacerbation. Patient describes shortness of breath and some chest tightness. She states she has a slight cough with no sputum production. Denying fever and chills. States that she has been using her inhaled medication, however they have not been helping at this time. Past medical history is significant for COPD, CVA/TIA, asthma and HIV. Patient states she is currently on a prednisone taper, stating she believes she is down to 10 mg daily. Patient states recently, however she cannot recall exactly when, she was diagnosed with sinus infection. States that she has taken antibiotics and steroids, however she continues to have localized pressure behind both of her eyes. States it is constantly there however it varies in intensity throughout the day, with seemingly nothing making it better or worse. While in the emergency department she received her morning medications, and the respiratory therapist came to give her a breathing treatment, however this precipitated nausea and vomiting. Patient states she has been dealing with a lot of nausea and vomiting the past couple of days, unable to keep much food down. She has been able to drink water and his head Ensures to allow for her to have some nutrients. Upon seeing the patient at the bedside later in the mo rning, she states she is feeling better, no longer has nausea/vomiting she had earlier and states that she has not had difficulty breathing. Initial lab work done in the ER showed unremarkable CBC, sodium 119, chloride 83, carbon dioxide 33, creatinine 0.33, serum glucose 104. Venous blood gas sh owed pH of 7.37, pCO2 of 63, HCO3 of 36 EKG done in the ER showed heart rate of 83, showed sinus rhythm with sinus arrhythmia. Chest x-ray done in the ER showed no acute cardiopulmonary abnormality Patient admitted to internal medicine service REVIEW OF SYSTEMS: CONSTITUTIONAL: No fever, no malaise, no fatigue. HEENT: No recent visual problems or hearing problems. Denied any sore throat. CARDIOVASCULAR: No chest pain, orthopnea, PND, no palpitations, no syncope. PULMONARY: Shortness of breath and some coughing. GASTROINTESTINAL: Nausea and vomiting with moderate right-sided abdominal pain. NEUROLOGICAL: Bilateral, equal sinus headache. HEMATOLOGICAL: Denies any bleeding or petechiae. GENITOURINARY: Denies any burning micturition, frequency, or urgency. MUSCULOSKELETAL/RHEUMATOLOGICAL: Denies any joint pain, swelling, or any muscle pain. ENDOCRINE: Denies any polyuria or polydipsia. The rest of the 14-point review of systems is negative. PHYSICAL EXAMINATION: GENERAL: The patient is alert and oriented x3, not in any acute distress. Well developed, well nourished. HEENT: Pupils are round and equally reacting to light. EOMI. No scleral icterus. No conjunctival pallor. Normocephalic, atraumatic. No pharyngeal erythema. No thyromegaly. CARDIOVASCULAR: S1 and S2 present. No murmurs, rubs, or gallops. PULMONARY: Chest is clear to auscultation, no wheezing or crackles. ABDOMEN: Slight tenderness to light palpation over the right side of her abdomen. MUSCULOSKELETAL: No joint swelling or deformity. EXTREMITIES: No cyanosis, clubbing, or pedal edema. NEUROLOGICAL: Gross neurological examination did not reveal any focal deficits. SKIN: No rashes. Assessment and plan #COPD exacerbation At home patient utilizes Flonase, DuoNeb and Trelegy to control her COPD Patient utilizes 2 L nasal cannula at home Since patient's arrival she has been saturating in the 90s on 2 L and now 3 L nasal cannula Patient currently on Zithromax 500 mg for 3 doses and prednisone 40 mg daily for 5 doses #Nausea and vomiting secondary to COPD exacerbation Patient states 2-day history of nausea and vomiting, unable to keep any food down Patient states that she has been able to drink some water and tried having ensures since she was unable to have any food Patient states she has started to get a little appetite back #Hyponatremia possibly secondary to dehydration On arrival patient sodium was 119. patient states her sodium is usually low however this was lower than usual Following some IV rehydration on recheck patient sodium is 122 Serum and urine osmolality, random urine sodium, random urine protein/creatinine ratio ordered #Sinus headache Patient states that with her sinus infection she has had a bad sinus headache States the pain is constantly there however fluctuates in intensity Sudafed has helped a little at times #HIV Patient takes Biktarvy 50 200 25 mg tablet Infectious disease consulted, per recommendation CD4 and CD8 flow routine and HIV 1 RNA ultraquant routine ordered Continue to monitor vital signs, monitor CBC, monitor BMP. Monitor for CD4 and CD flupirtine, as well as HIV-1 RNA ultra quant. Monitor for serum and urine osmolality, as well as random urine protein/creatinine ratio and random urine sodium. Labs and medication were reviewed. Continue with symptomatic treatment. Resume home medication. Monitor labs and vitals. DVT and GI prophylaxis. Further r ecommendations as per clinical course of the patient Dictation was produced using [employer] dictation software. please excuse any grammatical, word or spelling errors. Attestation Attestation/ Engine Tester Note: Attestation to History and physical, Participation (I saw and evaluated the patient with the Resident, and I reviewed and discussed the patient with the Resident and agree with the Resident's findings and plans as documented above., management reviewed and discussed), I agree with findings & plan, Provider Signature (DOUGIE SEO, AMMY Smith. Past Medical History Past Medical History: Asthma, Blood Disorder, COPD, CVA/TIA Additional Past Medical History / Comment(s): hiv History of Any Multi-Drug Resistant Organisms: None Reported Past Surgical History: No Surgical Hx Reported Additional Past Surgical History / Comment(s): peg and tracheostomy reversal 2023 Past Anesthesia/Blood Transfusion Reactions: No Reported Reaction Past Psychological History: Anxiety, Depression, Panic Disorder Smoking Status: Former smoker Past Alcohol Use History: None Reported, Occasional Past Drug Use History: None Reported - Past Family History Mother History Unknown: Yes Medications and Allergies Home Medications Medication Instructions Recorded Confirmed Type Albuterol Sulfate [Albuterol 2 puff PO RT-Q4H PRN 03/14/22 11/27/23 History Sulfate Hfa] Bictegrav/Emtricit/Tenofov Ala 1 tab PO DAILY 08/10/23 11/27/23 History [Biktarvy 50-200-25 mg Tablet] Ipratropium-Albuterol Nebulize 3 ml INHALATION RT-Q4H PRN 08/10/23 11/27/23 History [Duoneb 0.5 mg-3 mg/3 ml Soln] Famotidine [Pepcid] 20 mg PO BID 09/30/23 11/27/23 History Ondansetron [Zofran] 4 mg PO BID PRN 11/05/23 11/27/23 History Fluticasone/Umeclidin/Vilanter 1 inhalation INHALATION DAILY #1 11/07/23 11/27/23 Rx [Trelegy Ellipta 100-62.5-25] each ALPRAZolam [Xanax] 0.5 mg PO BID 11/27/23 11/27/23 History Bictegrav/Emtricit/Tenofov Ala 1 each PO DAILY #30 tab 11/27/23 Rx [Biktarvy 50-200-25 mg Tablet] Diurex 2 tab PO Q4H PRN MDD 6 tabs 11/27/23 11/27/23 History Fluticasone Propionate [Flonase 1 - 2 spray EA NOSTRIL DAILY PRN 11/27/23 11/27/23 History Allergy Relief] Ibuprofen [Motrin Ib] 200 - 400 mg PO Q6H PRN 11/27/23 11/27/23 History Motrin Dual Action 2 tab PO Q6H PRN 11/27/23 11/27/23 History Simethicone [Gas-X] 125 - 250 mg PO ACHS PRN MDD 4 11/27/23 11/27/23 History pills predniSONE See Taper PO DAILY 14 Days #32 tab 11/28/23 Rx Mirtazapine [Remeron] 7.5 mg PO HS 30 Days #30 tab 12/25/23 Rx Allergies Allergy/AdvReac Type Severity Reaction Status Date / Time Penicillins Allergy Anaphylaxis Verified 12/25/23 16:08 Milk Containing Products AdvReac Nausea & Verified 12/25/23 16:08 (Dairy) Vomiting & Diarrhea Physical Exam Vitals: Vital Signs Temp Pulse Resp BP Pulse Ox FiO2 11/27/23 07:51 92 11/27/23 07:37 89 98 11/27/23 05:38 81 28 H 148/91 97 11/27/23 02:56 89 11/27/23 02:46 93 50 11/27/23 02:00 90 24 163/99 96 11/27/23 00:25 97.1 F L 81 28 H 179/101 99 Intake and Output 11/26/23 11/27/23 11/27/23 22:59 06:59 14:59 Other: Weight 51.256 kg Results CBC & Chem 7: 11/28/23 06:17 11/28/23 06:17 Labs: Abnormal Lab Results - Last 24 Hours (Table) 07/29/24 07/29/24 Range/Units 00:51 02:33 VBG pCO2 63 H (37-51) mmHg VBG HCO3 36 H (24-28) mmol/L Sodium 119 L* (137-145) mmol/L Chloride 83 L (98-107) mmol/L Carbon Dioxide 33 H (22-30) mmol/L Creatinine 0.33 L (0.52-1.04) mg/dL Glucose 104 H (74-99) mg/dL
[2023-11-27] MEDS: ONDANSETRON 4 MG TAB PO PRN (20:07)
[2023-11-27] MEDS: traZODone HCL 100 MG TAB PO SCH (20:57)
[2023-11-27] MEDS: HEPARIN SODIUM,PORCINE 5,000 UNIT/ML 1 ML VIAL SQ SCH (20:57)
--- NOTE | 2023-11-27 22:00 | P.CONS ---
History of Present Illness - Reason for Consult Consult date: 11/27/23 HIV patient Requesting physician: William Zambrano - Chief Complaint Shortness of breath and cough x few days - History of Present Illness Patient is a 53-year-old female with a past medical history significant for HIV on Biktarvy also have history of CVA TIA COPD and asthma patient presenting to the hospital for evaluation of increasing shortness of breath that apparently has been getting worse for the last few days patient is complaining of chest tightness has been complaining of cough mild in intensity but not bring up any sputum patient denies high-grade fever or any chills patient mention she has been using her inhaler medication without any improvemen t for the patient present to the hospital patient has been a tapering course of prednisone which is currently down to 10 mg/day with worsening respiratory symptoms patient did present to the hospital on arrival to the ER the patient was afebrile and no fever have been recorded subsequently patient was not tachycardic or hypotensive no O2 sats on room air has been documented patient is currently on a 2 L current oxygen patient did have white count of 6.3 creatinine 0.33 liver isms are normal patient did have a chest x-ray no acute cardiopulmonary disease abnormality patient has been admitted to the hospital concerning for COPD exacerbation, infectious was consulted for further management of her HIV unfortunately patient has not been very compliant with a follow-up visit and mention she ran out of the medication and was not taking it for the last few days also Review of Systems Positive point and negatives has been mentioned in the HPI, complete review of systems was performed and all other systems are negative Past Medical History Past Medical History: Asthma, Blood Disorder, COPD, CVA/TIA Additional Past Medical History / Comment(s): hiv History of Any Multi-Drug Resistant Organisms: None Reported Past Surgical History: No Surgical Hx Reported Additional Past Surgical History / Comment(s): peg and tracheostomy reversal 2023 Past Anesthesia/Blood Transfusion Reactions: No Reported Reaction Past Psychological History: Anxiety, Depression, Panic Disorder Smoking Status: Former smoker Past Alcohol Use History: None Reported, Occasional Past Drug Use History: None Reported - Past Family History Mother History Unknown: Yes Medications and Allergies Home Medications Medication Instructions Recorded Confirmed Type Albuterol Sulfate [Albuterol 2 puff PO RT-Q4H PRN 03/14/22 11/27/23 History Sulfate Hfa] Bictegrav/Emtricit/Tenofov Ala 1 tab PO DAILY 08/10/23 11/27/23 History [Biktarvy 50-200-25 mg Tablet] Ipratropium-Albuterol Nebulize 3 ml INHALATION RT-Q4H PRN 08/10/23 11/27/23 History [Duoneb 0.5 mg-3 mg/3 ml Soln] Sertraline [Zoloft] 50 mg PO DAILY 08/10/23 11/27/23 History traZODone HCL [Desyrel] 200 mg PO HS 08/10/23 11/27/23 History Famotidine [Pepcid] 20 mg PO BID 09/30/23 11/27/23 History Ondansetron [Zofran] 4 mg PO BID PRN 11/05/23 11/27/23 History Fluticasone/Umeclidin/Vilanter 1 inhalation INHALATION DAILY #1 11/07/23 11/27/23 Rx [Trelegy Ellipta 100-62.5-25] each predniSONE See Taper PO DIRECTED #30 tab 11/07/23 11/27/23 Rx ALPRAZolam [Xanax] 0.5 mg PO BID 11/27/23 11/27/23 History Bictegrav/Emtricit/Tenofov Ala 1 each PO DAILY #30 tab 11/27/23 Rx [Biktarvy 50-200-25 mg Tablet] Diurex 2 tab PO Q4H PRN MDD 6 tabs 11/27/23 11/27/23 History Fluticasone Propionate [Flonase 1 - 2 spray EA NOSTRIL DAILY PRN 11/27/23 11/27/23 History Allergy Relief] Ibuprofen [Motrin Ib] 200 - 400 mg PO Q6H PRN 11/27/23 11/27/23 History Motrin Dual Action 2 tab PO Q6H PRN 11/27/23 11/27/23 History Simethicone [Gas-X] 125 - 250 mg PO ACHS PRN MDD 4 11/27/23 11/27/23 History pills Allergies Allergy/AdvReac Type Severity Reaction Status Date / Time Penicillins Allergy Anaphylaxis Verified 11/27/23 00:29 Milk Containing Products AdvReac Nausea & Verified 11/27/23 00:29 (Dairy) Vomiting & Diarrhea Physical Exam Vitals: Vital Signs Temp Pulse Resp BP Pulse Ox FiO2 11/27/23 08:27 81 18 149/93 98 11/27/23 07:51 92 11/27/23 07:37 89 98 11/27/23 05:38 81 28 H 148/91 97 11/27/23 02:56 89 11/27/23 02:46 93 50 11/27/23 02:00 90 24 163/99 96 11/27/23 00:25 97.1 F L 81 28 H 179/101 99 Intake and Output 11/26/23 11/27/23 11/27/23 22:59 06:59 14:59 Other: Weight 51.256 kg GENERAL DESCRIPTION: Middle-aged female lying in bed, no distress. No tachypnea or accessory muscle of respiration use. HEENT: Shows Pallor , no scleral icterus. Oral mucous membrane is dry. No pharyngeal erythema or thrush NECK: Trachea central, no thyromegaly. LUNGS: Unlabored breathing. Coarse breath sounds bilateral occasional wheeze HEART: S1, S2, regular rate and rhythm. No loud murmur ABDOMEN: Soft, no tenderness , guarding or rigidity, no organomegaly EXTREMITIES: No edema of feet. SKIN: No rash, no masses palpable. NEUROLOGICAL: The patient is awake, alert, oriented x3, mood and affect normal. Results CBC & Chem 7: 11/27/23 00:51 11/27/23 11:20 Labs: Abnormal Lab Results - Last 24 Hours (Table) 11/27/23 11/27/23 Range/Units 00:51 02:33 VBG pCO2 63 H (37-51) mmHg VBG HCO3 36 H (24-28) mmol/L Sodium 119 L* (137-145) mmol/L Chloride 83 L (98-107) mmol/L Carbon Dioxide 33 H (22-30) mmol/L Creatinine 0.33 L (0.52-1.04) mg/dL Glucose 104 H (74-99) mg/dL Assessment and Plan (1) Penicillin allergy Current Visit: Yes Status: Acute Code(s): Z88.0 - ALLERGY STATUS TO PENICILLIN SNOMED Code(s): 14209500 (2) HIV disease Current Visit: No Status: Acute Code(s): B20 - HUMAN IMMUNODEFICIENCY VIRUS [HIV] DISEASE SNOMED Code(s): 05475069 Plan: 1patient with a history of HIV for many years for the patient has been on Biktarvy unfortunately the patient did have some issues with compliance as the patient did not follow-up for an office visit and apparently did not have her medication 2-we will obtain HIV viral load and CD4 count 3-prescription was sent to the local pharmacy which can be picked up and we will start her Biktarvy while inpatient 4shortness of breath more likely related to underlying COPD exacerbation the tracheobronchitis not behaving as pneumonia hence we will hold on any systemic antibiotics We will follow on clinical condition and cultures to further adjust medication if needed Thank you for this consultation we will follow the patient along with you Dictation was produced using [employer] dictation software. please excuse any grammatical, word or spelling errors. Time with Patient: Greater than 30
[2023-11-28 00:42] VITALS: RESP 18
[2023-11-28 07:18] LABS: Basophils % (A) 1 %; Eosinophils % (A) 1 %; HCT 36.1 % (34.0-46.0); HGB 11.4 gm/dL (11.4-16.0); Hypochromasia Slight; Lymphocytes # (A) 2.1 k/uL (1.0-4.8); Lymphocytes % (A) 56 %; MCH 31.1 pg (25.0-35.0); MCHC 31.6 g/dL (31.0-37.0); MCV 98.5 fL (80.0-100.0); Mean Platelet Volume 7.1; Monocytes # (A) 0.3 k/uL (0-1.0); Monocytes % (A) 8 %; Neutrophils # (A) 1.2 k/uL (1.3-7.7); Neutrophils % (A) 32 %; Platelet Count 289 k/uL (150-450); RBC 3.67 m/uL (3.80-5.40); RDW 13.9 % (11.5-15.5); WBC 3.8 k/uL (3.8-10.6)
[2023-11-28 08:09] LABS: African American GFR (CKD) >90 (>60 ml/min/1.73 sqM); Anion Gap -1 mmol/L; Blood Urea Nitrogen 7 mg/dL (7-17); Calcium 8.6 mg/dL (8.4-10.2); Carbon Dioxide 39 mmol/L (22-30); Chloride 93 mmol/L (98-107); Glucose 94 mg/dL (74-99); Non-African American GFR(CKD) >90 (>60 ml/min/1.73 sqM); Potassium 3.9 mmol/L (3.5-5.1); Sodium 131 mmol/L (137-145)
[2023-11-28 08:48] VITALS: TEMP 97.8
[2023-11-28 09:25] LABS: HIV-1 RNA Not detected (Not detected); HIV-1 RNA, Quant <20 Copies/mL (<20); LOG HIV Copies/mL <1.30 (<1.30)
[2023-11-28 12:27] VITALS: BP 108/70; PULSE 89
[2023-11-28 13:38] LABS: T4/T8 Ratio (CD4:CD8) 0.4 (1.0-3.7)
--- NOTE | 2023-11-28 14:30 | P.DS ---
Providers Date of admission: 11/27/23 02:33 Attending physician: Cheli Zavaleta Consults: 11/27/23 06:42 Consult Physician Stat Consulting Provider: Tushar Zaragoza Consult Reason/Comments: HIV patient Do you want consulting provider notified?: Yes Primary care physician: Francisco Harvey [facility] Hospital Course: Discharge diagnoses; #COPD exacerbation At home patient utilizes Flonase, DuoNeb and Trelegy to control her COPD Patient utilizes 2 L nasal cannula at home Since patient's arrival she has been saturating in the 90s on 2 L and now 3 L nasal cannula Patient currently on Zithromax 500 mg for 3 doses and prednisone 40 mg daily for 5 doses #Nausea and vomiting secondary to COPD exacerbation Patient states 2-day history of nausea and vomiting, unable to keep any food down Patient states that she has been able to drink some water and tried having ensures since she was unable to have any food Patient states she has started to get a little appetite back #Hyponatremia possibly secondary to dehydration On arrival patient sodium was 119. patient states her sodium is usually low however this was lower than usual Following some IV rehydration on recheck patient sodium is 122 Serum and urine osmolality, random urine sodium, random urine protein/creatinine ratio ordered Sodium of 131, serum osmolality 269, urine osmolality 273, urine random sodium 51, urine creatinine 21.5, protein/creatinine ratio 0.744, urine total protein 16 #Sinus headache Patient states that with her sinus infection she has had a bad sinus headache States the pain is constantly there however fluctuates in intensity Sudafed has helped a little at times #HIV Patient takes Biktarvy 50 200 25 mg tablet Infectious disease consulted, per recommendation CD4 and CD8 flow routine and HIV 1 RNA ultraquant routine ordered Per infectious disease Biktarvy restarted while patient is inpatient Prescription sent to local pharmacy which can be picked up following the patient's release from the hospital HIV-1 RNA quant less than 20, HIV RNA logcopies/mL Ult less than 1.3, HIV-1 RNA (PCR) not detected Hospital course; 53-year-old female presents to the emergency department with what she believes to be COPD exacerbation. Patient describes shortness of breath and some chest tightness. She states she has a slight cough with no sputum production. Denying fever and chills. States that she has been using her inhaled medication, however they have not been helping at this time. Past medical history is significant for COPD, CVA/TIA, asthma and HIV. Patient states she is currently on a prednisone taper, stating she believes she is down to 10 mg daily. Patient states recently, however she cannot recall exactly when, she was diagnosed with sinus infection. States that she has taken antibiotics and steroids, however she continues to have localized pressure behind both of her eyes. States it is constantly there however it varies in intensity throughout the day, with seemingly nothing making it better or worse. While in the emergency department she received her morning medications, and the respiratory therapist came to give her a breathing treatment, however this precipitated nausea and vomiting. Patient states she has been dealing with a lot of nausea and vomiting the past couple of days, unable to keep much food down. She has been able to drink water and his head Ensures to allow for her to have some nutrients. Upon seeing the patient at the bedside later in the morning, she states she is feeling better, no longer has nausea/vomiting she had earlier and states that she has not had difficulty breathing. Initial lab work done in the ER showed unremarkable CBC, sodium 119, chloride 83, carbon dioxide 33, creatinine 0.33, serum glucose 104. Venous blood gas showed pH of 7.37, pCO2 of 63, HCO3 of 36 EKG done in the ER showed heart rate of 83, showed sinus rhythm with sinus arrhythmia. Chest x-ray done in the ER showed no acute cardiopulmonary abnormality 11/27 - Patient seen at bedside today. Patient states she feels well, however still nauseous albeit better than yesterday. She is continuing to improve from what she felt during her COPD exacerbation, and comments there is no difficulty with her breathing. She states that she has been able to drink okay, however has not had the biggest appetite. Overnight patient's blood pressure remained well-controlled, most recently reading 120/76 well-contained saturating upper 90s where she has improved from being on 3 L nasal cannula to 2 L starting late last night and throughout this morning. Due to the patient's status as being HIV positive infectious disease was consulted. Patient states that she has not been very compliant with follow-up and mentions that she ran out of her medication, Biktarvy, and had not been taking it for the last few days. Per IDs recommendation we are obtaining an HIV viral load and CD4 count, as well as restarting the patient on Biktarvy while inpatient. Labs drawn yesterday indicated serum osmolality 269, urine osmolality of 273, urine random sodium 51, urine creatinine 21.5, protein/creatinine ratio 0.744, urine total protein of 16. Drawn today showed sodium 131. Patient cleared for discharge from medicine perspective, she will start a new prednisone taper 40 mg for the next 2 days followed by 30 mg for 4 days, then 20 mg for 4 days, and then 10 mg for 4 days. She is encouraged to continue consistent follow-up with her infectious disease doctor, as her HIV is well-controlled. Labs done today - sodium 131, serum osmolality 269, urine osmolality 273, urine sodium 51, urine creatinine 21.5, urine protein/creatinine ratio 0.744, urine total protein 16 Imaging none today - none. PHYSICAL EXAMINATION: GENERAL: The patient is alert and oriented x3, not in any acute distress. Well developed, well nourished. HEENT: Pupils are round and equally reacting to light. EOMI. No scleral icterus. No conjunctival pallor. Normocephalic, atraumatic. No pharyngeal erythema. No thyromegaly. CARDIOVASCULAR: S1 and S2 present. No murmurs, rubs, or gallops. PULMONARY: Chest is clear to auscultation, no wheezing or crackles. ABDOMEN: Soft, nontender, nondistended, normoactive bowel sounds. No palpable organomegaly. MUSCULOSKELETAL: No joint swelling or deformity. EXTREMITIES: No cyanosis, clubbing, or pedal edema. NEUROLOGICAL: Gross neurological examination did not reveal any focal deficits. SKIN: No rashes. Dictation was produced using [email or web address] dictation software. please excuse any grammatical, word or spelling errors. 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 Note: Attestation to D/C Summary, Participation (I saw and evaluated the patient with the Resident, and I reviewed and discussed the patient with the Resident and agree with the Resident's findings and plans as documented above., immediately available, management reviewed and discussed), I agree with findings & plan, Provider Signature (DOUGIE SEO, AMMY Monahan Patient Condition at Discharge: Fair Plan - Discharge Summary Discharge Rx Participant: Yes New Discharge Prescriptions: New Bictegrav/Emtricit/Tenofov Ala [Biktarvy 50-200-25 mg Tablet] 1 each PO DAILY #30 tab predniSONE See Taper PO DAILY 14 Days #32 tab Continue Albuterol Sulfate [Albuterol Sulfate Hfa] 2 puff PO RT-Q4H PRN PRN Reason: Shortness Of Breath Ipratropium-Albuterol Nebulize [Duoneb 0.5 mg-3 mg/3 ml Soln] 3 ml INHALATION RT-Q4H PRN PRN Reason: Shortness Of Breath Famotidine [Pepcid] 20 mg PO BID ALPRAZolam [Xanax] 0.5 mg PO BID Motrin Dual Action 2 tab PO Q6H PRN PRN Reason: Pain Ibuprofen [Motrin Ib] 200 - 400 mg PO Q6H PRN PRN Reason: Pain Or Fever > 100.5 Fluticasone Propionate [Flonase Allergy Relief] 1 - 2 spray EA NOSTRIL DAILY PRN PRN Reason: Congestion Bictegrav/Emtricit/Tenofov Ala [Biktarvy 50-200-25 mg Tablet] 1 tab PO DAILY Ondansetron [Zofran] 4 mg PO BID PRN PRN Reason: Nausea Fluticasone/Umeclidin/Vilanter [Trelegy Ellipta 100-62.5-25] 1 inhalation INHALATION DAILY #1 each Simethicone [Gas-X] 125 - 250 mg PO ACHS PRN MDD 4 pills PRN Reason: gas Diurex 2 tab PO Q4H PRN MDD 6 tabs PRN Reason: weight gain/bloating Discontinued predniSONE See Taper PO DIRECTED #30 tab No Action Mirtazapine [Remeron] 7.5 mg PO HS 30 Days #30 tab Discharge Medication List Albuterol Sulfate [Albuterol Sulfate Hfa] 2 puff PO RT-Q4H PRN 03/14/22 [History] Bictegrav/Emtricit/Tenofov Ala [Biktarvy 50-200-25 mg Tablet] 1 tab PO DAILY 08/10/23 [History] Ipratropium-Albuterol Nebulize [Duoneb 0.5 mg-3 mg/3 ml Soln] 3 ml INHALATION RT-Q4H PRN 08/10/23 [History] Famotidine [Pepcid] 20 mg PO BID 09/30/23 [History] Ondansetron [Zofran] 4 mg PO BID PRN 11/05/23 [History] Fluticasone/Umeclidin/Vilanter [Trelegy Ellipta 100-62.5-25] 1 inhalation INHALATION DAILY #1 each 11/07/23 [Rx] ALPRAZolam [Xanax] 0.5 mg PO BID 11/27/23 [History] Bictegrav/Emtricit/Tenofov Ala [Biktarvy 50-200-25 mg Tablet] 1 each PO DAILY #30 tab 11/27/23 [Rx] Diurex 2 tab PO Q4H PRN MDD 6 tabs 11/27/23 [History] Fluticasone Propionate [Flonase Allergy Relief] 1 - 2 spray EA NOSTRIL DAILY PRN 11/27/23 [History] Ibuprofen [Motrin Ib] 200 - 400 mg PO Q6H PRN 11/27/23 [History] Motrin Dual Action 2 tab PO Q6H PRN 11/27/23 [History] Simethicone [Gas-X] 125 - 250 mg PO ACHS PRN MDD 4 pills 11/27/23 [History] predniSONE See Taper PO DAILY 14 Days #32 tab 11/28/23 [Rx] Mirtazapine [Remeron] 7.5 mg PO HS 30 Days #30 tab 12/25/23 [Rx] Follow up Appointment(s)/Referral(s): Francisco Harvey [Primary Care Provider] - 1 Week Tushar Zaragoza MD [STAFF PHYSICIAN] - 1 Week Discharge Disposition: HOME SELF-CARE
--- NOTE | 2023-11-28 15:33 | P.PN ---
Subjective Progress Note Date: 11/28/23 Principal diagnosis: Reason for follow-up is HIV Patient is a 53-year-old female with a past medical history significant for HIV on Biktarvy also have history of CVA TIA COPD and asthma patient presenting to the hospital for evaluation of increasing shortness of breath, ID was consulted because of her history of HIV. On today's evaluation that is 11/28/2023, Patient is afebrile patient is currently on room air and denies having any shortness of breath, the patient denies any chest pain or cough, the patient denies any nausea vomiting did not have any abdominal pain and no diarrhea. Patient mention feeling better Patient white count is 3.8, creatinine 0.38 Objective - Vital Signs Vital signs: Vital Signs Temp 97.8 F 11/28/23 08:00 Pulse 89 11/28/23 12:00 Resp 18 11/28/23 12:00 BP 108/70 11/28/23 12:00 Pulse Ox 100 11/28/23 12:00 FiO2 40 11/27/23 16:34 Intake & Output 11/27/23 11/28/23 11/28/23 18:59 06:59 18:59 Intake Total 240 10 Output Total 1000 Balance 240 -990 Weight 51.256 kg 51.6 kg Intake: IV 10 Invasive Line 1 10 Oral 240 Output: Urine 1000 Other: Voiding Method Toilet # Voids 1 2 # Bowel Movements 0 - Exam GENERAL DESCRIPTION: Middle-aged female lying in bed in no distress RESPIRATORY SYSTEM: Unlabored breathing , decreased breath sounds at bases HEART: S1 S2 regular rate and rhythm , ABDOMEN: Soft , no tenderness EXTREMITIES: No edema feet - Labs CBC & Chem 7: 11/28/23 06:17 11/28/23 06:17 Labs: Abnormal Lab Results - Last 24 Hours (Table) 11/27/23 11/27/23 11/27/23 Range/Units 11:20 11:20 13:01 RBC (3.80-5.40) m/uL Neutrophils # (1.3-7.7) k/uL Sodium (137-145) mmol/L Chloride (98-107) mmol/L Carbon Dioxide (22-30) mmol/L Creatinine (0.52-1.04) mg/dL Osmolality 269 L (275-295) mOsm/kg Urine Osmolality 273 L (400-1100) mOsm/kg T-Suppressor Cells 188 L (190-832) cell/ul % CD4 [place] 21 L (35-66) % Absolute CD4 [place] 83 L (443-1471) cell/ul CD4/CD8 Ratio 0.4 L (1.0-3.7) % CD8 Supp[place] 47 H (9-37) % 11/28/23 11/28/23 Range/Units 06:17 06:17 RBC 3.67 L (3.80-5.40) m/uL Neutrophils # 1.2 L (1.3-7.7) k/uL Sodium 131 L (137-145) mmol/L Chloride 93 L (98-107) mmol/L Carbon Dioxide 39 H (22-30) mmol/L Creatinine 0.38 L (0.52-1.04) mg/dL Osmolality (275-295) mOsm/kg Urine Osmolality (400-1100) mOsm/kg T-Suppressor Cells (190-832) cell/ul % CD4 [place] (35-66) % Absolute CD4 [place] (443-1471) cell/ul CD4/CD8 Ratio (1.0-3.7) % CD8 Supp[place] (9-37) % Assessment and Plan (1) Penicillin allergy Status: Acute Code(s): Z88.0 - ALLERGY STATUS TO PENICILLIN SNOMED Code(s): 26056160 (2) HIV disease Status: Acute Code(s): B20 - HUMAN IMMUNODEFICIENCY VIRUS [HIV] DISEASE SNOMED Code(s): 58528746 Plan: 1patient with a history of HIV for many years for the patient has been on Biktarvy unfortunately the patient did have some issues with compliance as the patient did not follow-up for an office visit and apparently did not have her medication 2-we will obtain HIV viral load and CD4 count 3-patient did have her Biktarvy filled at the local pharmacy and she has been getting it since yesterday CD4 count and viral load are currently pending patient has been advised to follow-up in the office for continuation of the care Dictation was produced using [employer] software. please excuse any grammatical, word or spelling errors. Time with Patient: Less than 30
--- NOTE | 2023-12-01 11:57 | CDI ---
Documentation Clarification Form Date: From: Julianna Duarte Phone: [phone] Admit Date: 11/27/2023 02:33:00 AM Patient Name: Neli Veloz Visit Number: [id number] Discharge Date: 11/28/2023 02:38:00 PM ATTENTION: The Clinical Documentation Specialists (CDI) and [facility] Coding Staff appreciate your assistance in clarifying documentation. Please respond to the clarification below the line at the bottom and electronically sign. The CDI & [facility] Coding staff will review the response and follow-up if needed. Please note: Queries are made part of the Legal Health Record. If you have any questions, please contact the author of this message via ITS. Dr. David Hawkins Your patient has shortness of breath noted in the record. Based on this information and the findings below, is there an additional diagnosis that is clinically appropriate for this patient? History/Risk Factors: 53yo w/ a h/o COPD, asthma, HIV on Biktarvy. She was recently diagnosed with a sinus infection and was started on a prednisone taper prior to arrival Home oxygen: 2L [place] Clinical Indicators: ER record noted respiratory distress, wheezes, accessory muscle use, decreased breath sounds, prolonged expiratory and pursed-lip breathing. showroom manager 11/26 @ 28 noted shortness of breath, persistent dyspnea, talking in phrases and short of breath w/ activity showroom manager 11/26 @ 1999 noted persistent dyspnea, SOB w/ activity, shallow resps Vital signs: 11/26 @ 0025 97.1, 81, 28, 179/101, 99% on 2L [place] 11/26 @ 0200 90, 24, 163/99, 96% on 2L [place] 11/26 @ 1999 98.3, 84, 19, 134/85, 96% on 2L [place] Treatment: SVN, Zithromax po, prednisone po, Symbicort Is there an additional diagnosis that is clinically appropriate for this patient? [ ] Acute on Chronic Respiratory Failure [ x ] Chronic Respiratory Failure [ ] Acute Respiratory Distress [ ] Acute Respiratory Insufficiency [ ] Other Diagnosis, please specify [ ] Unable to determine (Template Last Revised: May 2023) MTDD
== END 2023-11-28 14:38 | disposition home or self-care (01) | DRG 191 ==
LOC: EC 00:24 → 5NMEDONC 02:33 → 3SCARD 06:21
PROVIDERS: ADMIT Hospitalist; ATTEND Hospitalist
DX: J44.1 Chronic obstructive pulmonary disease with (acute) exacerbation (principal); B20 Human immunodeficiency virus [HIV] disease; J96.10 Chronic respiratory failure, unspecified whether with hypoxia or hypercapnia; E87.1 Hypo-osmolality and hyponatremia; E86.0 Dehydration; G44.89 Other headache syndrome; Z86.73 Personal history of transient ischemic attack (TIA), and cerebral infarction without residual deficits; Z79.51 Long term (current) use of inhaled steroids; Z79.899 Other long term (current) drug therapy; Z88.0 Allergy status to penicillin; Z91.011 Allergy to milk products; Z87.891 Personal history of nicotine dependence
CPT/HCPCS: 36415; 71045; 80048; 80053; 82570; 82803; 83605; 83930; 83935; 84156; 84300; 84484; 85025; 85379; 85610; 85730; 86360; 87536; 93005; 94640; 94660; 94760

== ENCOUNTER 2023-12-05 06:16 | Emergency (ER) | payer MEDICARE, OTHER ==
[2023-12-05] MEDS ORDERED: methylPREDNISolone SOD SUCCI 125 MG/2 ML VIAL ONE (07:02)
[2023-12-05] MEDS ORDERED: WATER FOR INJECTION, STERILE 10 ML IV ONE (07:02)
[2023-12-05] MEDS ORDERED: IPRATROPIUM-ALBUTEROL 3 ML NEB ONE ×2 (08:02→11:37)
[2023-12-05] MEDS ORDERED: FAMOTIDINE 20 MG TAB ONE (11:00)
[2023-12-05] MEDS ORDERED: SERTRALINE 100 MG TAB ONE (11:01)
[2023-12-05] MEDS ORDERED: methylPREDNISolone SOD SUCCI 40 MG/ML 1 ML VIAL ONE (13:10)
== END 2023-12-05 14:50 | disposition left against medical advice (07) ==
LOC: EC 06:16
DX: Z53.21 Procedure and treatment not carried out due to patient leaving prior to being seen by health care provider (principal)
CPT/HCPCS: 93005; 99499

== ENCOUNTER 2023-12-09 12:34 | Inpatient (IN) | payer MEDICARE, OTHER ==
[~2023-12-09 12:34] MED LIST: ALBUTEROL NEBULIZED 2.5 MG/3 ML INHALATION ONE; IPRATROPIUM 0.5 MG/2.5 ML NEBU INHALATION ONE; IPRATROPIUM-ALBUTEROL 3 ML NEB ONE; MAGNESIUM SULFATE-D5W PMX 100 ML IVPB ONE; ONDANSETRON 4 MG/2 ML VIAL ONE; cefTRIAXone IN SWFI 1,000 MG/10 ML SYRINGE IVP ONE
[2023-12-09] MEDS ORDERED: FAMOTIDINE 20 MG TAB ONE (19:47)
[2023-12-09] MEDS ORDERED: PANTOPRAZOLE 40 MG TABLET PO ONE (19:47)
[2023-12-09] MEDS ORDERED: methylPREDNISolone SOD SUCCI 125 MG/2 ML VIAL ONE (19:48)
[2023-12-09] MEDS ORDERED: ALPRAZolam 0.5 MG TAB ONE (19:54)
[2023-12-09] MEDS ORDERED: traZODone HCL 100 MG TAB ONE (20:53)
[2023-12-09] MEDS ORDERED: IPRATROPIUM-ALBUTEROL 3 ML NEB ONE (23:59)
[2023-12-09] MEDS ORDERED: BUDESONIDE 0.5 MG/2 ML NEBU ONE (23:59)
[2023-12-09] MEDS ORDERED: FLUTICASONE 220 MCG INHALER INHALATION ONE (23:59)
[2023-12-10] MEDS ORDERED: methylPREDNISolone SOD SUCCI 125 MG/2 ML VIAL ONE ×4 (02:16→20:10)
[2023-12-10] MEDS ORDERED: IPRATROPIUM-ALBUTEROL 3 ML NEB ONE ×2 (07:00→08:00)
[2023-12-10] MEDS ORDERED: SODIUM CHLORIDE 0.65% NASAL SPRAY 44 ML BTL ONE (07:00)
[2023-12-10] MEDS ORDERED: BUDESONIDE 0.5 MG/2 ML NEBU ONE (08:00)
[2023-12-10] MEDS ORDERED: PANTOPRAZOLE 40 MG TABLET PO ONE ×2 (08:47→20:10)
[2023-12-10] MEDS ORDERED: SERTRALINE 50 MG TAB ONE (08:47)
[2023-12-10] MEDS ORDERED: FAMOTIDINE 20 MG TAB ONE ×2 (08:47→20:10)
[2023-12-10] MEDS ORDERED: ALPRAZolam 0.5 MG TAB ONE ×2 (08:59→18:54)
[2023-12-10] MEDS ORDERED: INSULIN ASPART (NovoLOG) 100 UNIT/ML VIAL SQ ONE (16:47)
[2023-12-10] MEDS ORDERED: traZODone HCL 100 MG TAB ONE (20:10)
[2023-12-10] MEDS ORDERED: ACETAMINOPHEN TAB 325 MG TAB ONE (20:10)
[2023-12-11] MEDS ORDERED: ZINC OXIDE PASTE (Z-GUARD) 1 APPLIC TOPICAL ONE (01:38)
[2023-12-11] MEDS ORDERED: BUDESONIDE 0.5 MG/2 ML NEBU ONE (08:00)
[2023-12-11] MEDS ORDERED: IPRATROPIUM-ALBUTEROL 3 ML NEB ONE (08:00)
[2023-12-11] MEDS ORDERED: PANTOPRAZOLE 40 MG TABLET PO ONE (09:46)
[2023-12-11] MEDS ORDERED: FAMOTIDINE 20 MG TAB ONE (09:47)
[2023-12-11] MEDS ORDERED: SERTRALINE 50 MG TAB ONE (09:48)
[2023-12-11] MEDS ORDERED: methylPREDNISolone SOD SUCCI 125 MG/2 ML VIAL ONE ×2 (09:49→13:48)
[2023-12-11] MEDS ORDERED: ALPRAZolam 0.5 MG TAB ONE (09:59)
--- NOTE | 2024-01-10 14:40 | XR ---
Patient Neli Veloz ID [id number] Order # EXAMINATION TYPE: XR chest 1V portable DATE OF EXAM: 12/17/2023 COMPARISON: No comparison available on downtime PACS. INDICATION: Difficulty breathing upper abdominal pain TECHNIQUE: Single frontal view of the chest is obtained. FINDINGS: The heart size is normal. The pulmonary vasculature is normal. Hyperinflation findings the diaphragms compatible with COPD. No free air is under the diaphragm IMPRESSION: 1. No acute pulmonary process. 2 COPD
--- NOTE | 2024-01-10 15:52 | XR ---
Site ID [facility] Neli Kruger ID [id number] EXAMINATION TYPE: XR chest 1V DATE OF EXAM: 12/09/2023 11:56 AM CLINICAL INDICATION:SOB COMPARISON: Chest radiographs from TECHNIQUE: XR chest 1V Frontal view of the chest. FINDINGS: Lungs/Pleura: There is no evidence of pleural effusion, focal consolidation, or pneumothorax. Pulmonary vascularity: Unremarkable. Heart/mediastinum: Cardiomediastinal silhouette is unremarkable. Musculoskeletal: No acute osseous pathology. Other findings: None IMPRESSION: No acute cardiopulmonary disease/process.
== END 2023-12-11 17:10 | disposition home or self-care (01) | DRG 190 ==
LOC: UNDODISIN 12:34 → 3SCARD 12:34
PROVIDERS: ADMIT Hospitalist; ATTEND Hospitalist
PROC: 5A09457 Assistance with Respiratory Ventilation, 24-96 Consecutive Hours, Continuous Positive Airway Pressure (ICD-10-PCS; principal; 2023-12-09)
DX: J44.1 Chronic obstructive pulmonary disease with (acute) exacerbation (principal); J96.21 Acute and chronic respiratory failure with hypoxia; E87.1 Hypo-osmolality and hyponatremia; F32.A Depression, unspecified; F41.9 Anxiety disorder, unspecified; Z21 Asymptomatic human immunodeficiency virus [HIV] infection status; E11.65 Type 2 diabetes mellitus with hyperglycemia; Z79.899 Other long term (current) drug therapy
CPT/HCPCS: 71045; 94640; 94660; 94760; 96365; 96366; 96372; 96375; 99285

== ENCOUNTER 2023-12-16 17:45 | Inpatient (IN) | payer MEDICARE, OTHER ==
[~2023-12-16 17:45] MED LIST changes: +AZITHROMYCIN 500 MG VIAL IVPB ONE; +LORazepam 2 MG/ML INJ ONE; -MAGNESIUM SULFATE-D5W PMX 100 ML IVPB ONE; +SODIUM CHLORIDE 0.9% 250 ML BAG ONE; +SODIUM CHLORIDE 0.9% 50 ML BAG ONE; +SODIUM CHLORIDE 0.9% 500 ML BAG ONE; +cefTRIAXone 2 GM VIAL ONE; -cefTRIAXone IN SWFI 1,000 MG/10 ML SYRINGE IVP ONE; +methylPREDNISolone SOD SUCCI 125 MG/2 ML VIAL ONE
[2023-12-16] MEDS ORDERED: SODIUM CHLORIDE 0.9% 1,000 ML BAG ONE (23:59)
[2023-12-16] MEDS ORDERED: methylPREDNISolone SOD SUCCI 125 MG/2 ML VIAL ONE (23:59)
[2023-12-17] MEDS ORDERED: IPRATROPIUM-ALBUTEROL 3 ML NEB ONE ×3 (07:49→23:59)
[2023-12-17] MEDS ORDERED: SERTRALINE 50 MG TAB ONE ×2 (09:54→23:59)
[2023-12-17] MEDS ORDERED: AZITHROMYCIN 500 MG TAB ONE ×2 (09:54→23:59)
[2023-12-17] MEDS ORDERED: ALPRAZolam 0.5 MG TAB ONE ×3 (10:06→23:59)
[2023-12-17] MEDS ORDERED: methylPREDNISolone SOD SUCCI 125 MG/2 ML VIAL ONE ×4 (11:38→23:59)
[2023-12-17] MEDS ORDERED: INSULIN ASPART (NovoLOG) 100 UNIT/ML VIAL SQ ONE ×4 (11:39→23:59)
[2023-12-17] MEDS ORDERED: LORazepam 2 MG/ML INJ ONE ×2 (18:13→23:59)
[2023-12-17] MEDS ORDERED: traZODone HCL 100 MG TAB ONE ×2 (20:46→23:59)
[2023-12-17] MEDS ORDERED: traZODone HCL 50 MG TAB ONE (23:59)
[2023-12-18] MEDS ORDERED: IPRATROPIUM-ALBUTEROL 3 ML NEB ONE ×2 (05:07→15:00)
[2023-12-18] MEDS ORDERED: methylPREDNISolone SOD SUCCI 125 MG/2 ML VIAL ONE ×3 (06:19→15:00)
[2023-12-18] MEDS ORDERED: AZITHROMYCIN 500 MG TAB ONE ×2 (09:40→15:00)
[2023-12-18] MEDS ORDERED: SERTRALINE 50 MG TAB ONE ×2 (09:41→15:00)
[2023-12-18] MEDS ORDERED: ALPRAZolam 0.5 MG TAB ONE ×2 (09:42→15:00)
[2023-12-18] MEDS ORDERED: FAMOTIDINE 20 MG TAB ONE (12:14)
[2023-12-18] MEDS ORDERED: ONDANSETRON ODT 4 MG TAB ONE (12:15)
[2023-12-22] MEDS ORDERED: IPRATROPIUM-ALBUTEROL 3 ML NEB ONE ×3 (07:49→15:02)
[2023-12-22] MEDS ORDERED: predniSONE 20 MG TAB ONE (08:21)
[2023-12-22] MEDS ORDERED: THIAMINE 100 MG TAB ONE (08:21)
[2023-12-22] MEDS ORDERED: ENOXAPARIN 40 MG/0.4 ML SYRINGE SQ ONE (08:21)
[2023-12-22] MEDS ORDERED: FAMOTIDINE 20 MG TAB ONE ×2 (14:05→20:59)
[2023-12-22] MEDS ORDERED: FOLIC ACID 1 MG TAB ONE (14:05)
[2023-12-22] MEDS ORDERED: ALPRAZolam 0.5 MG TAB ONE ×2 (14:05→20:12)
[2023-12-22] MEDS ORDERED: MULTIVITAMINS, THERA 1 EACH TAB ONE (14:05)
[2023-12-22] MEDS ORDERED: ONDANSETRON 4 MG/2 ML VIAL ONE (16:52)
--- NOTE | 2024-01-16 15:47 | XR ---
Patient Neli Veloz ID [id number] Order # EXAMINATION TYPE: XR chest 1V DATE OF EXAM: 12/16/2023 COMPARISON: No comparison available on downtime PACS. INDICATION: Short of breath TECHNIQUE: Single frontal view of the chest is obtained. FINDINGS: The heart size is normal. The pulmonary vasculature is normal. The lungs are clear. IMPRESSION: 1. No acute pulmonary process.
== END 2023-12-18 15:42 | disposition left against medical advice (07) | DRG 190 ==
LOC: UNDODISIN 17:45 → 3SCARD 17:45
PROVIDERS: ADMIT Hospitalist; ATTEND Hospitalist
DX: J44.1 Chronic obstructive pulmonary disease with (acute) exacerbation (principal); J96.21 Acute and chronic respiratory failure with hypoxia; Z99.81 Dependence on supplemental oxygen; Z21 Asymptomatic human immunodeficiency virus [HIV] infection status; Z53.29 Procedure and treatment not carried out because of patient's decision for other reasons; I10 Essential (primary) hypertension; F32.A Depression, unspecified; F41.9 Anxiety disorder, unspecified; Z79.51 Long term (current) use of inhaled steroids; Z87.891 Personal history of nicotine dependence; Z88.0 Allergy status to penicillin; Z91.011 Allergy to milk products; Z79.899 Other long term (current) drug therapy
CPT/HCPCS: 71045; 94640; 94760; 96365; 96375; 99291

== ENCOUNTER 2023-12-22 03:30 | Inpatient (IN) | payer MEDICARE, OTHER ==
[2023-12-22] MEDS ORDERED: IPRATROPIUM-ALBUTEROL 3 ML NEB ONE (23:59)
[2023-12-22] MEDS ORDERED: SYMBICORT 160-4.5 MCG INHALER INHALATION ONE (23:59)
[2023-12-22] MEDS ORDERED: SODIUM CHLORIDE 0.9% 1,000 ML BAG ONE (23:59)
[2023-12-23] MEDS ORDERED: ONDANSETRON 4 MG/2 ML VIAL ONE (08:03)
[2023-12-23] MEDS ORDERED: FAMOTIDINE 20 MG TAB ONE ×2 (08:03→21:30)
[2023-12-23] MEDS ORDERED: ALPRAZolam 0.5 MG TAB ONE ×3 (08:03→21:30)
[2023-12-23] MEDS ORDERED: predniSONE 20 MG TAB ONE (08:03)
[2023-12-23] MEDS ORDERED: FOLIC ACID 1 MG TAB ONE (08:03)
[2023-12-23] MEDS ORDERED: THIAMINE 100 MG TAB ONE (08:03)
[2023-12-23] MEDS ORDERED: MULTIVITAMINS, THERA 1 EACH TAB ONE (08:03)
[2023-12-23] MEDS ORDERED: ENOXAPARIN 40 MG/0.4 ML SYRINGE SQ ONE (08:04)
[2023-12-23] MEDS ORDERED: IPRATROPIUM-ALBUTEROL 3 ML NEB ONE ×2 (08:12→23:59)
[2023-12-23] MEDS ORDERED: NALOXONE 0.4 MG/ML 1 ML VIAL IVP PRN (11:59)
[2023-12-23] MEDS ORDERED: ACETAMINOPHEN TAB 325 MG TAB PO PRN (12:30)
[2023-12-23] MEDS ORDERED: ACETAMINOPHEN TAB 325 MG TAB ONE (12:57)
[2023-12-23] MEDS ORDERED: NALOXONE 0.4 MG/ML 1 ML VIAL IV PRN (14:25)
[2023-12-23] MEDS ORDERED: MIRTAZAPINE 15 MG TAB ONE (21:35)
[2023-12-23] MEDS ORDERED: SODIUM CHLORIDE 0.9% 1,000 ML BAG ONE (23:59)
[2023-12-24] MEDS ORDERED: MORPHINE SULFATE 4 MG/ML SYRINGE IVP PRN
[2023-12-24] MEDS ORDERED: SODIUM CHLORIDE 0.65% NASAL SPRAY 44 ML BTL NASAL PRN
[2023-12-24] MEDS ORDERED: ONDANSETRON 4 MG/2 ML VIAL IVP PRN
[2023-12-24] MEDS ORDERED: SIMETHICONE 80 MG CHEWABLE PO PRN
[2023-12-24] MEDS ORDERED: LORazepam 2 MG/ML INJ IV PRN ×6 (03:02)
[2023-12-24] MEDS: IPRATROPIUM-ALBUTEROL 3 ML NEB INHALATION SCH (03:53)
[2023-12-24] MEDS: MIRTAZAPINE 15 MG TAB PO SCH (05:31)
[2023-12-24] MEDS: SODIUM CHLORIDE 0.9% 1,000 ML IV SCH (05:31)
[2023-12-24] MEDS ORDERED: PATIENTS OWN MED PO SCH (09:00)
[2023-12-24] MEDS ORDERED: ALPRAZolam 0.5 MG TAB PO SCH (09:00)
[2023-12-24] MEDS: predniSONE 20 MG TAB PO SCH (09:11)
[2023-12-24] MEDS: THIAMINE 100 MG TAB PO SCH (09:11)
[2023-12-24] MEDS: ENOXAPARIN 40 MG/0.4 ML SYRINGE SQ SCH (09:11)
[2023-12-24] MEDS: FOLIC ACID 1 MG TAB PO SCH (09:11)
[2023-12-24] MEDS: ALPRAZolam 0.5 MG TAB PO PRN (09:11)
[2023-12-24] MEDS: FAMOTIDINE 20 MG TAB PO SCH (09:11)
[2023-12-24] MEDS: MULTIVITAMINS, THERA 1 EACH TAB PO SCH (09:11)
[2023-12-24] MEDS: FLUTICASONE NASAL 50MCG/SPRAY 16GM BTL EA NOSTRIL SCH (09:12)
[2023-12-24] MEDS: SYMBICORT 160-4.5 MCG INHALER INHALATION SCH (09:19)
[2023-12-24] MEDS: BIKTARVY PO SCH (09:56)
[2023-12-24 10:26] LABS: HCT 40.7 % (34.0-46.0); Hypochromasia Moderate; MCH 31.3 pg (25.0-35.0); MCHC 31.8 g/dL (31.0-37.0); MCV 98.5 fL (80.0-100.0); Mean Platelet Volume 6.7; Platelet Count 262 k/uL (150-450); RBC 4.14 m/uL (3.80-5.40); RDW 14.1 % (11.5-15.5)
[2023-12-24 10:49] LABS: African American GFR (CKD) >90 (>60 ml/min/1.73 sqM); Blood Urea Nitrogen 13 mg/dL (7-17); Calcium 8.4 mg/dL (8.4-10.2); Chloride 92 mmol/L (98-107); Glucose 73 mg/dL (74-99); Non-African American GFR(CKD) >90 (>60 ml/min/1.73 sqM); Potassium 3.5 mmol/L (3.5-5.1); Sodium 131 mmol/L (137-145)
[2023-12-24 10:55] LABS: Anion Gap 1 mmol/L
[2023-12-24 10:59] LABS: Carbon Dioxide 38 mmol/L (22-30)
--- NOTE | 2023-12-24 12:16 | P.PN ---
Subjective Progress Note Date: 12/24/23 Principal diagnosis: Shortness of breath and weakness Patient feeling better, anxiety is improved. Denies chest pain or shortness of breath. No fevers or chills. No nausea or vomiting. No overnight events. Objective - Vital Signs Vital signs: Vital Signs Temp 97.4 F L 12/24/23 04:14 Pulse 78 12/24/23 09:40 Resp 16 12/24/23 07:23 BP 127/78 12/24/23 04:14 Pulse Ox 99 12/24/23 09:24 FiO2 40 12/24/23 03:15 Intake & Output 12/23/23 12/24/23 12/24/23 18:59 06:59 18:59 Intake Total 10 Balance 10 Weight 51.5 kg Intake: IV 10 Invasive Line 1 10 Other: Voiding Method Bedside Commode - Exam Constitutional: No acute distress, conversant, pleasant Eyes: Anicteric sclerae, moist conjunctiva, no lid-lag Pupils equal round reactive to light ENMT: NC/AT Oropharynx clear, no erythema, exudates Neck: Supple, FROM, no masses, or JVD No carotid bruits No thyromegaly Lungs: Clear to auscultation Clear to percussion Normal respiratory effort, no accessory muscle use Cardiovascular: Heart regular in rate and rhythm, No murmurs, gallops, or rubs No peripheral edema Abdominal: Soft Nontender, no guarding, rebound or rigidity Abdomen moving with respiration Normoactive bowel sounds No hepatomegaly, No splenomegaly No palpable mass No abdominal wall hernia noted Skin: Normal temperature, tone, texture, turgor No induration No subcutaneous nodules No rash, lesions No ulcers Extremities: No digital cyanosis No clubbing Pedal pulses intact and symmetrical Radial pulses intact and symmetrical No calf tenderness Psychiatric: Alert and oriented to person, place and time Appropriate affect fair judgement Neuro Muscles Strength 5/5 in all 4 extremities Sensation to light touch grossly present throughout Cranial nerves II-XII grossly intact No focal sensory deficits Lymphatics: no palpable cervical or supraclavicular , or inguinal lymph nodes - Labs CBC & Chem 7: 12/24/23 10:20 12/24/23 10:00 Labs: Abnormal Lab Results - Last 24 Hours (Table) 12/24/23 Range/Units 10:00 Sodium 131 L (137-145) mmol/L Chloride 92 L (98-107) mmol/L Carbon Dioxide 38 H (22-30) mmol/L Creatinine 0.47 L (0.52-1.04) mg/dL Glucose 73 L (74-99) mg/dL Assessment and Plan Plan: #COPD exacerbation At home patient utilizes Flonase, DuoNeb and Trelegy to control her COPD Patient utilizes 2 L nasal cannula at home Patient currently on DuoNebs and prednisone 40 mg daily for 5 doses #Hyponatremia possibly secondary to SSRI This is a recurrent problem, has history of previous hospitalization for the same Serum and urine osmolality, random urine sodium ordered Sodium improved to 131, continue to monitor # Anxiety and depression -She was seen by psychiatry who switched her to Remeron for her anxiety -Xanax as needed initiated #HIV Patient takes Biktarvy 50 200 25 mg tablet, will continue Anticipate discharge in a.m. if sodium continues to improve
--- NOTE | 2023-12-24 12:29 | P.PN ---
Subjective Progress Note Date: 12/24/23 The patient is seen today December 24, 2023 in follow-up on the regular medical floor. She is currently sitting up in bed. Awake and alert in no acute distress. Denies any worsening shortness of breath, cough or congestion. She is maintaining good O2 saturations on the upper 90s on 2 L/min per nasal can nula. She is afebrile. Hemodynamically stable. White count 5.0. Hemoglobin 13.0. Platelets 262. Sodium 131. Potassium 3.5. Bicarb 38. BUN 13. Creatinine 0.47. Glucose 73. She is continued on Symbicort, DuoNeb and elations, prednisone taper. Lovenox for DVT prophylaxis. Remains on the [facility] protocol. Objective - Vital Signs Vital signs: Vital Signs Temp 97.4 F L 12/24/23 04:14 Pulse 78 12/24/23 09:40 Resp 16 12/24/23 07:23 BP 127/78 12/24/23 04:14 Pulse Ox 99 12/24/23 09:24 FiO2 40 12/24/23 03:15 Intake & Output 12/23/23 12/24/23 12/24/23 18:59 06:59 18:59 Intake Total 10 Balance 10 Weight 51.5 kg Intake: IV 10 Invasive Line 1 10 Other: Voiding Method Bedside Commode - Exam GENERAL EXAM: Alert, 53-year-old female, on 2 L nasal cannula, comfortable in no apparent distress. HEAD: Normocephalic. EYES: Normal reaction of pupils, equal size. NOSE: Clear with pink turbinates. THROAT: No erythema or exudates. NECK: No masses, no JVD. CHEST: No chest wall deformity. LUNGS: Equal air entry with no crackles, wheeze, rhonchi or dullness. CVS: S1 and S2 normal with no audible murmur, regular rhythm. ABDOMEN: No hepatosplenomegaly, normal bowel sounds, no guarding or rigidity. SPINE: No scoliosis or deformity SKIN: No rashes CENTRAL NERVOUS SYSTEM: No focal deficits, tone is normal in all 4 extremities. EXTREMITIES: There is no peripheral edema. No clubbing, no cyanosis. Peripheral pulses are intact. - Labs CBC & Chem 7: 12/24/23 10:20 12/24/23 10:00 Labs: Abnormal Lab Results - Last 24 Hours (Table) 12/24/23 Range/Units 10:00 Sodium 131 L (137-145) mmol/L Chloride 92 L (98-107) mmol/L Carbon Dioxide 38 H (22-30) mmol/L Creatinine 0.47 L (0.52-1.04) mg/dL Glucose 73 L (74-99) mg/dL Assessment and Plan Assessment: Assessment: Acute alcohol intoxication Hyponatremia secondary to above Acute exacerbation of chronic obstructive pulmonary disease Acute hypoxic respiratory failure secondary to above History of HIV Plan: The patient was seen and evaluated Labs and medications reviewed Stable and on 2 L nasal cannula Titrate down the FiO2 as tolerated Continue bronchodilators, steroids Increase activity as tolerated We will continue to follow I have personally seen and examined the patient, performed the documentation and the assessment and plan as written. Number of minutes spent on the visit: 10.
[2023-12-24] MEDS: IPRATROPIUM-ALBUTEROL 3 ML NEB INHALATION PRN (16:14)
[2023-12-25] MEDS: IPRATROPIUM-ALBUTEROL 3 ML NEB INHALATION SCH (07:42)
[2023-12-25 08:46] VITALS: TEMP 98
[2023-12-25 08:52] LABS: African American GFR (CKD) >90 (>60 ml/min/1.73 sqM); Blood Urea Nitrogen 15 mg/dL (7-17); Calcium 8.5 mg/dL (8.4-10.2); Chloride 98 mmol/L (98-107); Glucose 85 mg/dL (74-99); Non-African American GFR(CKD) >90 (>60 ml/min/1.73 sqM); Potassium 3.9 mmol/L (3.5-5.1); Sodium 134 mmol/L (137-145)
[2023-12-25 09:00] LABS: Anion Gap -2 mmol/L
[2023-12-25 09:16] LABS: Carbon Dioxide 38 mmol/L (22-30)
[2023-12-25 11:36] VITALS: BP 138/68; RESP 17
[2023-12-25] MEDS: ALPRAZolam 0.5 MG TAB ONE ×4 (11:37→11:38)
[2023-12-25] MEDS: FAMOTIDINE 20 MG TAB ONE ×3 (11:37→11:38)
[2023-12-25] MEDS: SYMBICORT 160-4.5 MCG INHALER INHALATION ONE ×2 (11:38)
[2023-12-25] MEDS: IPRATROPIUM-ALBUTEROL 3 ML NEB ONE ×3 (11:38)
[2023-12-25 11:51] VITALS: PULSE 84
--- NOTE | 2023-12-25 13:21 | P.DS ---
Providers Date of admission: 12/22/23 03:30 Expected date of discharge: 12/25/23 Attending physician: Kenji Carr MD Consults: 12/22/23 03:30 Consult Physician Routine Consulting Provider: Patti Portillo Consult Reason/Comments: resp failure Do you want consulting provider notified?: Already Contacted 12/22/23 11:20 Consult Physician Routine Consulting Provider: Sandeep Recinos Consult Reason/Comments: alcholism Do you want consulting provider notified?: Already Contacted Primary care physician: Physician Nonstaff Hospital Course: 53-year-old female with history of COPD, HIV, history of hyponatremia, history of anxiety presented to the emergency department because of worsening shortness of breath and generalized weakness. Associated symptoms included nausea but no vomiting. Denies chest pain or headaches. In the emergency department she was found to have respiratory distress, was briefly on BiPAP, was found to have COPD exacerbation, was started on steroids and breathing treatments. This resolved quickly. 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 She was seen by psychiatry who switched her to remeron. Patient currently doing well. Sodium level went up with holding these medications up to 134 on the day of discharge. He'll be discharged home in stable condition. Discharge diagnoses #COPD exacerbation #Hyponatremia possibly secondary to SSRI # Anxiety and depression #HIV Patient was seen and examined on the day of discharge 12/24 time for discharge 35 minutes Plan - Discharge Summary New Discharge Prescriptions: New Mirtazapine [Remeron] 7.5 mg PO HS 30 Days #30 tab Continue Albuterol Sulfate [Albuterol Sulfate Hfa] 2 puff PO RT-Q4H PRN PRN Reason: Shortness Of Breath Ipratropium-Albuterol Nebulize [Duoneb 0.5 mg-3 mg/3 ml Soln] 3 ml INHALATION RT-Q4H PRN PRN Reason: Shortness Of Breath Famotidine [Pepcid] 20 mg PO BID ALPRAZolam [Xanax] 0.5 mg PO BID Motrin Dual Action 2 tab PO Q6H PRN PRN Reason: Pain Ibuprofen [Motrin Ib] 200 - 400 mg PO Q6H PRN PRN Reason: Pain Or Fever > 100.5 Fluticasone Propionate [Flonase Allergy Relief] 1 - 2 spray EA NOSTRIL DAILY PRN PRN Reason: Congestion Bictegrav/Emtricit/Tenofov Ala [Biktarvy 50-200-25 mg Tablet] 1 each PO DAILY #30 tab predniSONE See Taper PO DAILY 14 Days #32 tab Bictegrav/Emtricit/Tenofov Ala [Biktarvy 50-200-25 mg Tablet] 1 tab PO DAILY Ondansetron [Zofran] 4 mg PO BID PRN PRN Reason: Nausea Fluticasone/Umeclidin/Vilanter [Trelegy Ellipta 100-62.5-25] 1 inhalation INHALATION DAILY #1 each Simethicone [Gas-X] 125 - 250 mg PO ACHS PRN MDD 4 pills PRN Reason: gas Diurex 2 tab PO Q4H PRN MDD 6 tabs PRN Reason: weight gain/bloating Discontinued Sertraline [Zoloft] 50 mg PO DAILY traZODone HCL [Desyrel] 200 mg PO HS Discharge Medication List Albuterol Sulfate [Albuterol Sulfate Hfa] 2 puff PO RT-Q4H PRN 03/14/22 [History] Bictegrav/Emtricit/Tenofov Ala [Biktarvy 50-200-25 mg Tablet] 1 tab PO DAILY 08/10/23 [History] Ipratropium-Albuterol Nebulize [Duoneb 0.5 mg-3 mg/3 ml Soln] 3 ml INHALATION RT-Q4H PRN 08/10/23 [History] Famotidine [Pepcid] 20 mg PO BID 09/30/23 [History] Ondansetron [Zofran] 4 mg PO BID PRN 11/05/23 [History] Fluticasone/Umeclidin/Vilanter [Trelegy Ellipta 100-62.5-25] 1 inhalation INHALATION DAILY #1 each 11/07/23 [Rx] ALPRAZolam [Xanax] 0.5 mg PO BID 11/27/23 [History] Bictegrav/Emtricit/Tenofov Ala [Biktarvy 50-200-25 mg Tablet] 1 each PO DAILY #30 tab 11/27/23 [Rx] Diurex 2 tab PO Q4H PRN MDD 6 tabs 11/27/23 [History] Fluticasone Propionate [Flonase Allergy Relief] 1 - 2 spray EA NOSTRIL DAILY PRN 11/27/23 [History] Ibuprofen [Motrin Ib] 200 - 400 mg PO Q6H PRN 11/27/23 [History] Motrin Dual Action 2 tab PO Q6H PRN 11/27/23 [History] Simethicone [Gas-X] 125 - 250 mg PO ACHS PRN MDD 4 pills 11/27/23 [History] predniSONE See Taper PO DAILY 14 Days #32 tab 11/28/23 [Rx] Mirtazapine [Remeron] 7.5 mg PO HS 30 Days #30 tab 12/25/23 [Rx]
--- NOTE | 2023-12-25 13:34 | P.PN ---
Subjective Progress Note Date: 12/25/23 The patient is seen today December 24, 2023 in follow-up on the regular medical floor. She is currently sitting up in bed. Awake and alert in no acute distress. Denies any worsening shortness of breath, cough or congestion. She is maintaining good O2 saturations on the upper 90s on 2 L/min per nasal can nula. She is afebrile. Hemodynamically stable. White count 5.0. Hemoglobin 13.0. Platelets 262. Sodium 131. Potassium 3.5. Bicarb 38. BUN 13. Creatinine 0.47. Glucose 73. She is continued on Symbicort, DuoNeb and elations, prednisone taper. Lovenox for DVT prophylaxis. Remains on the [facility] protocol. The patient is seen today December 25, 2023 follow-up on the regular medical floor. She is awake and alert in no acute distress. Breathing better today compared to yesterday. No worsening shortness of breath, cough or congestion. She is maintaining O2 saturations in the 90s on 2.5 L/min per nasal cannula. She is continued on Symbicort, DuoNeb inhalations, prednisone taper. Lovenox for DVT prophylaxis. Sodium 134. Potassium 3.9. Bicarb 38. BUN 15. Creatinine 0.42. Glucose 85. Objective - Vital Signs Vital signs: Vital Signs Temp 98.0 F 12/25/23 08:44 Pulse 84 12/25/23 11:50 Resp 17 12/25/23 11:35 BP 138/68 12/25/23 11:35 Pulse Ox 100 12/25/23 11:35 FiO2 40 12/24/23 03:15 Intake & Output 12/24/23 12/25/23 12/25/23 18:59 06:59 18:59 Intake Total 257 118 Output Total 1000 Balance 257 -1000 118 Weight 50.4 kg Intake: IV 20 Invasive Line 1 20 Oral 237 118 Output: Urine 1000 Other: Voiding Method Bedside Commode Bedside Commode Bedside Commode # Voids 2 # Bowel Movements 1 1 - Exam GENERAL EXAM: Alert, 53-year-old female, on 2.5 L nasal cannula, sitting up in bed, comfortable in no apparent distress. HEAD: Normocephalic. EYES: Normal reaction of pupils, equal size. NOSE: Clear with pink turbinates. THROAT: No erythema or exudates. NECK: No masses, no JVD. CHEST: No chest wall deformity. LUNGS: Equal air entry with no crackles, wheeze, rhonchi or dullness. CVS: S1 and S2 normal with no audible murmur, regular rhythm. ABDOMEN: No hepatosplenomegaly, normal bowel sounds, no guarding or rigidity. SPINE: No scoliosis or deformity SKIN: No rashes CENTRAL NERVOUS SYSTEM: No focal deficits, tone is normal in all 4 extremities. EXTREMITIES: There is no peripheral edema. No clubbing, no cyanosis. Peripheral pulses are intact. - Labs CBC & Chem 7: 12/24/23 10:20 12/25/23 07:41 Labs: Abnormal Lab Results - Last 24 Hours (Table) 12/25/23 Range/Units 07:41 Sodium 134 L (137-145) mmol/L Carbon Dioxide 38 H (22-30) mmol/L Creatinine 0.42 L (0.52-1.04) mg/dL Assessment and Plan Assessment: Acute alcohol intoxication Hyponatremia secondary to above Acute exacerbation of chronic obstructive pulmonary disease Acute hypoxic respiratory failure secondary to above History of HIV Plan: The patient was seen and evaluated Labs and medications reviewed Stable and on 2.5 L nasal cannula Titrate down the FiO2 as tolerated Continue bronchodilators, steroids Cleared for discharge Follow-up in our office in 1 week I have personally seen and examined the patient, performed the documentation and the assessment and plan as written. Number of minutes spent on the visit: 10.
== END 2023-12-25 14:42 | disposition home health service (06) | DRG 190 ==
LOC: 3SCARD 03:30
PROVIDERS: ADMIT Internal Medicine; ATTEND Internal Medicine
PROC: 5A09357 Assistance with Respiratory Ventilation, Less than 24 Consecutive Hours, Continuous Positive Airway Pressure (ICD-10-PCS; principal; 2023-12-22)
DX: J44.1 Chronic obstructive pulmonary disease with (acute) exacerbation (principal); J96.01 Acute respiratory failure with hypoxia; E22.2 Syndrome of inappropriate secretion of antidiuretic hormone; F10.129 Alcohol abuse with intoxication, unspecified; F32.A Depression, unspecified; F41.9 Anxiety disorder, unspecified; Z21 Asymptomatic human immunodeficiency virus [HIV] infection status; Z71.41 Alcohol abuse counseling and surveillance of alcoholic; Z88.0 Allergy status to penicillin; Z91.011 Allergy to milk products; Z87.891 Personal history of nicotine dependence
CPT/HCPCS: 36600; 71045; 80048; 83935; 85027; 93005; 94640; 94660; 94760; 99285

== ENCOUNTER 2024-01-04 01:36 | Observation (INO) | payer MEDICARE, OTHER ==
--- NOTE | 2024-01-04 01:45 | ED ---
SOB HPI - General Stated Complaint: SOB Time Seen by Provider: 01/04/24 01:44 Source: RN notes reviewed, old records reviewed Mode of arrival: EMS Limitations: no limitations - History of Present Illness Initial Comments: This is a 53-year-old female in severe respiratory distress coming in for respiratory distress unable to provide history well-known to this emergency department MD Complaint: shortness of breath, cough, "asthma attack", anxiety -: days(s) Severity: severe Severity scale (1-10): 9 Quality: dull Consistency: constant Improves With: nothing Worsens With: nothing Known History Of: COPD, asthma Context: recent URI Associated Symptoms: chest pain, pain with inspiration, cough, sputum production - Related Data Home Medications Medication Instructions Recorded Confirmed Albuterol Sulfate [Albuterol 2 puff PO RT-Q4H PRN 03/14/22 01/06/24 Sulfate Hfa] Bictegrav/Emtricit/Tenofov Ala 1 tab PO DAILY 08/10/23 01/06/24 [Biktarvy 50-200-25 mg Tablet] Ipratropium-Albuterol Nebulize 3 ml INHALATION RT-Q4H PRN 08/10/23 01/06/24 [Duoneb 0.5 mg-3 mg/3 ml Soln] Famotidine [Pepcid] 20 mg PO BID 09/30/23 01/06/24 Ondansetron [Zofran] 4 mg PO BID PRN 11/05/23 01/06/24 ALPRAZolam [Xanax] 0.5 mg PO BID 11/27/23 01/06/24 Diurex 2 tab PO Q4H PRN MDD 6 tabs 11/27/23 01/06/24 Fluticasone Propionate [Flonase 1 spray EA NOSTRIL DAILY PRN 11/27/23 01/06/24 Allergy Relief] Ibuprofen [Motrin Ib] 200 - 400 mg PO Q6H PRN 11/27/23 01/06/24 Simethicone [Gas-X] 125 - 250 mg PO ACHS PRN MDD 4 11/27/23 01/06/24 pills Fluticasone/Umeclidin/Vilanter 1 puff INHALATION RT-DAILY 01/04/24 01/06/24 [Trelegy Ellipta 200-62.5-25] Mirtazapine [Remeron] 15 mg PO HS 01/04/24 01/06/24 Sulfamethox-Tmp 800-160Mg [Bactrim 1 tab PO DIRECTED 01/06/24 01/06/24 DS 800-160 mg] predniSONE See Taper PO DIRECTED 01/06/24 01/06/24 Allergies Allergy/AdvReac Type Severity Reaction Status Date / Time Penicillins Allergy Anaphylaxis Verified 01/06/24 11:07 Milk Containing Products AdvReac Nausea & Verified 01/06/24 11:07 (Dairy) Vomiting & Diarrhea Review of Systems ROS Statement: Those systems with pertinent positive or pertinent negative responses have been documented in the HPI. ROS Other: All systems not noted in ROS Statement are negative. Past Medical History Past Medical History: Asthma, Blood Disorder, COPD, CVA/TIA Additional Past Medical History / Comment(s): hiv History of Any Multi-Drug Resistant Organisms: None Reported Past Surgical History: No Surgical Hx Reported Additional Past Surgical History / Comment(s): peg and tracheostomy reversal 202 4 Past Anesthesia/Blood Transfusion Reactions: No Reported Reaction Past Psychological History: Anxiety, Depression, Panic Disorder Smoking Status: Former smoker Past Alcohol Use History: None Reported, Occasional Past Drug Use History: None Reported - Past Family History Mother History Unknown: Yes General Exam General appearance: alert, in no apparent distress, anxious, in distress Head exam: Present: atraumatic, normocephalic, normal inspection Eye exam: Present: normal appearance, PERRL, EOMI. Absent: scleral icterus, conjunctival injection, periorbital swelling ENT exam: Present: normal exam, mucous membranes dry Neck exam: Present: normal inspection. Absent: tenderness, meningismus, lymphadenopathy Respiratory exam: Present: respiratory distress, wheezes, accessory muscle use, decreased breath sounds, prolonged expiratory. Absent: rales, rhonchi, stridor Cardiovascular Exam: Present: regular rate, normal rhythm, normal heart sounds. Absent: systolic murmur, diastolic murmur, rubs, gallop, clicks GI/Abdominal exam: Present: soft, normal bowel sounds. Absent: distended, tenderness, guarding, rebound, rigid Extremities exam: Present: normal inspection, full ROM, normal capillary refill. Absent: tenderness, pedal edema, joint swelling, calf tenderness Back exam: Present: normal inspection Neurological exam: Present: alert, oriented X3, CN II-XII intact Psychiatric exam: Present: normal affect, normal mood Skin exam: Present: warm, dry, intact, normal color. Absent: rash Course Vital Signs 01/04/24 01/04/24 01/04/24 01:40 01:55 02:10 Temperature Pulse Rate 110 H 113 H 116 H Respiratory 22 Rate Blood Pressure 143/114 O2 Sat by Pulse 97 Oximetry Fraction of Inspired Oxygen (FIO2) 01/04/24 01/04/24 01/04/24 02:20 02:24 03:30 Temperature Pulse Rate 115 H 98 Respiratory 19 19 15 Rate Blood Pressure 158/98 120/67 O2 Sat by Pulse 100 100 Oximetry Fraction of 35 Inspired Oxygen (FIO2) 01/04/24 01/04/24 01/04/24 04:32 04:43 05:00 Temperature Pulse Rate 105 H 97 95 Respiratory 15 Rate Blood Pressure 112/70 O2 Sat by Pulse Oximetry Fraction of 30 Inspired Oxygen (FIO2) 01/04/24 01/04/24 01/04/24 06:01 07:00 07:44 Temperature 97.0 F L Pulse Rate 90 81 Respiratory 21 12 Rate Blood Pressure 128/77 107/76 O2 Sat by Pulse 100 91 L Oximetry Fraction of 30 Inspired Oxygen (FIO2) 01/04/24 01/04/24 01/04/24 07:52 08:02 08:03 Temperature Pulse Rate 86 84 84 Respiratory Rate Blood Pressure O2 Sat by Pulse Oximetry Fraction of 30 Inspired Oxygen (FIO2) 01/04/24 01/04/24 01/04/24 08:12 08:39 10:00 Temperature Pulse Rate 80 104 H Respiratory 26 H Rate Blood Pressure 158/120 O2 Sat by Pulse 99 98 Oximetry Fraction of Inspired Oxygen (FIO2) 01/04/24 01/04/24 01/04/24 11:00 11:34 12:00 Temperature Pulse Rate 105 H 106 H 110 H Respiratory 22 22 Rate Blood Pressure 148/89 162/116 O2 Sat by Pulse 99 100 Oximetry Fraction of Inspired Oxygen (FIO2) 01/04/24 01/04/24 01/04/24 13:20 14:44 15:00 Temperature Pulse Rate 98 82 Respiratory 17 Rate Blood Pressure 111/67 93/58 115/79 O2 Sat by Pulse 96 Oximetry Fraction of Inspired Oxygen (FIO2) - Reevaluation(s) Reevaluation #1: 01/04/24 02:04 Records reviewed Reevaluation #2: 01/04/24 02:04 Patient placed on BiPAP secondary to severe respiratory distress Reevaluation #3: Patient is showing improvement on BiPAP Reevaluation #4: Was pt. sent in by a medical professional or institution ([facility] Madison, PRINTING SALES REPRESENTATIVE, urgent care, hospital, or halfway...) When possible be specific @ -no Did you speak to anyone other than the patient for history (EMS, parent, family, police, friend...)? What history was obtained from this source @ -no Did you review nursing and triage notes (agree or disagree)? Why? @ -agree Are old charts reviewed (outside hosp., previous admission, EMS record, old EKG, old radiological studies, urgent care reports/EKG's, halfway records)? Report findings @ -yes Differential Diagnosis (chest pain, altered mental status, abdominal pain women, abdominal pain men, vaginal bleeding, weakness, fever, dyspnea, syncope, headache, dizziness, GI bleed, back pain, seizure, CVA, palpatations, mental health, musculoskeletal)? @ -prior EKG interpreted by me (3pts min.). @ -yes X-rays interpreted by me (1pt min.). @ -yes negative for acute disease CT interpreted by me (1pt min.). @ -no U/S interpreted by me (1pt. min.). @ -no What testing was considered but not performed or refused? (CT, X-rays, U/S, labs)? Why? @ -none What meds were considered but not given or refused? Why? @ -none Did you discuss the management of the patient with other professionals (professionals i.e. MARISSA Madison, PRINTING SALES REPRESENTATIVE, lab, RT, psych nurse, aids social worker, hat and cap sewer, teacher, executive vice president and chief operating officer, trimming caser)? Give summary @ -no Was smoking cessation discussed for >3mins.? @ -no Was critical care preformed (if so, how long)? @ -yes31 Were there social determinants of health that impacted care today? How? (Homelessness, low income, unemployed, alcoholism, drug addiction, transportation, low edu. Level, literacy, decrease access to med. care, shelter, rehab)? @ -none Was there de-escalation of care discussed even if they declined (Discuss DNR or withdrawal of care, Hospice)? DNR status @ -no What co-morbidities impacted this encounter? (DM, HTN, Smoking, COPD, CAD, Cancer, CVA, ARF, Chemo, Hep., AIDS, mental health diagnosis, sleep apnea, morbid obesity)? @ -none Was patient admitted / discharged? Hospital course, mention meds given and route, prescriptions, significant lab abnormalities, going to OR and other pertinent info. @ -53 female to ER for acute respiratory distress respiratory failure hypoxic respiratory failure on BiPAP will admit for further supportive care . Admitted Undiagnosed new problem with uncertain prognosis? @ -no Drug Therapy requiring intensive monitoring for toxicity (Heparin, Nitro, Insulin, Cardizem)? @ -no Were any procedures done? @ -no Diagnosis/symptom? @ - Respiratory failure on BiPAP Acute, or Chronic, or Acute on Chronic? @ -Acute Uncomplicated (without systemic symptoms) or Complicated (systemic symptoms)? @ -Complicated Side effects of treatment? @ -no Exacerbation, Progression, or Severe Exacerbation? @ -exacerbation Poses a threat to life or bodily function? How? (Chest pain, [place], [place], pneumonia, PE, COPD, DKA, ARF, appy, cholecystitis, CVA, Diverticulitis, Homicidal, Suicidal, threat to staff... and all critical care pts) @ -yes respiratory failure Reevaluation #5: Differential Dyspnea: Coronary syndrome, arrhythmia, tamponade, asthma, COPD, pulmonary embolism, pneumonia, pneumothorax, pulmonary effusion, anaphylaxis, diabetic ketoacidosis, flailed chest, pulmonary contusion, diaphragmatic rupture, anemia, neuromuscular, this is not meant to be an all-inclusive list. - Consultations Consultation #1: Spoke with admitting physicians who agreed to admit this patient Medical Decision Making - Lab Data Result diagrams: 01/04/24 01:42 01/04/24 01:42 Lab Results 01/04/24 01/04/24 01/04/24 Range/Units 01:42 01:42 01:42 WBC 8.8 (3.8-10.6) k/uL RBC 4.44 (3.80-5.40) m/uL Hgb 13.6 (11.4-16.0) gm/dL Hct 44.1 (34.0-46.0) % MCV 99.4 (80.0-100.0) fL MCH 30.6 (25.0-35.0) pg MCHC 30.8 L (31.0-37.0) g/dL RDW 14.4 (11.5-15.5) % Plt Count 398 (150-450) k/uL MPV 6.3 Neutrophils % 60 % Lymphocytes % 30 % Monocytes % 6 % Eosinophils % 1 % Basophils % 1 % Neutrophils # 5.3 (1.3-7.7) k/uL Lymphocytes # 2.6 (1.0-4.8) k/uL Monocytes # 0.6 (0-1.0) k/uL Eosinophils # 0.1 (0-0.7) k/uL Basophils # 0.1 (0-0.2) k/uL Hypochromasia Marked PT 9.8 L (10.0-12.5) sec INR 0.9 (<1.2) APTT 25.3 (22.0-30.0) sec Sodium 136 L (137-145) mmol/L Potassium 4.3 (3.5-5.1) mmol/L Chloride 94 L (98-107) mmol/L Carbon Dioxide 40 H (22-30) mmol/L Anion Gap 2 mmol/L BUN 10 (7-17) mg/dL Creatinine 0.36 L (0.52-1.04) mg/dL Est GFR (CKD-EPI)AfAm >90 (>60 ml/min/1.73 sqM) Est GFR (CKD-EPI)NonAf >90 (>60 ml/min/1.73 sqM) Glucose 140 H (74-99) mg/dL Plasma Lactic Acid Jarad (0.7-2.0) mmol/L Calcium 8.7 (8.4-10.2) mg/dL Magnesium 2.1 (1.6-2.3) mg/dL Total Bilirubin 0.3 (0.2-1.3) mg/dL AST 29 (14-36) U/L ALT 23 (4-34) U/L Alkaline Phosphatase 57 (38-126) U/L Troponin I (0.000-0.034) ng/mL NT-Pro-B Natriuret Pep 61 pg/mL Total Protein 6.4 (6.3-8.2) g/dL Albumin 4.1 (3.5-5.0) g/dL 01/04/24 01/04/24 Range/Units 01:42 01:42 WBC (3.8-10.6) k/uL RBC (3.80-5.40) m/uL Hgb (11.4-16.0) gm/dL Hct (34.0-46.0) % MCV (80.0-100.0) fL MCH (25.0-35.0) pg MCHC (31.0-37.0) g/dL RDW (11.5-15.5) % Plt Count (150-450) k/uL MPV Neutrophils % % Lymphocytes % % Monocytes % % Eosinophils % % Basophils % % Neutrophils # (1.3-7.7) k/uL Lymphocytes # (1.0-4.8) k/uL Monocytes # (0-1.0) k/uL Eosinophils # (0-0.7) k/uL Basophils # (0-0.2) k/uL Hypochromasia PT (10.0-12.5) sec INR (<1.2) APTT (22.0-30.0) sec Sodium (137-145) mmol/L Potassium (3.5-5.1) mmol/L Chloride (98-107) mmol/L Carbon Dioxide (22-30) mmol/L Anion Gap mmol/L BUN (7-17) mg/dL Creatinine (0.52-1.04) mg/dL Est GFR (CKD-EPI)AfAm (>60 ml/min/1.73 sqM) Est GFR (CKD-EPI)NonAf (>60 ml/min/1.73 sqM) Glucose (74-99) mg/dL Plasma Lactic Acid Jarad 0.7 (0.7-2.0) mmol/L Calcium (8.4-10.2) mg/dL Magnesium (1.6-2.3) mg/dL Total Bilirubin (0.2-1.3) mg/dL AST (14-36) U/L ALT (4-34) U/L Alkaline Phosphatase (38-126) U/L Troponin I <0.012 (0.000-0.034) ng/mL NT-Pro-B Natriuret Pep pg/mL Total Protein (6.3-8.2) g/dL Albumin (3.5-5.0) g/dL - EKG Data -: EKG Interpreted by Me (EKG e is sinus tachycardia 111 ME 133 QRS 83 QTc 344) Critical Care Time Critical Care Time: Yes Total Critical Care Time: 31 Disposition Clinical Impression: COPD (chronic obstructive pulmonary disease), HIV disease, Acute respiratory failure, Hypoxia, Hyponatremia, Acute respiratory distress, Acute exacerbation of chronic obstructive pulmonary disease, Asthma with acute exacerbation Disposition: LEFT AGAINST MEDICAL ADVICE Condition: Serious Is patient prescribed a controlled substance at d/c from ED?: No
[2024-01-04] MEDS: ALBUTEROL NEB (CONC) 2.5 MG/0.5 ML INHALATION STA (01:55)
[2024-01-04] MEDS: IPRATROPIUM 0.5 MG/2.5 ML NEBU INHALATION STA (01:55)
[2024-01-04] MEDS: SODIUM CHLORIDE 0.9% 1,000 ML IV STA ×2 (02:05→02:06)
[2024-01-04] MEDS: MORPHINE SULFATE 2 MG/ML SYRINGE IVP STA (02:06)
[2024-01-04 02:17] LABS: Basophils # (A) 0.1 k/uL (0-0.2); Basophils % (A) 1 %; Eosinophils # (A) 0.1 k/uL (0-0.7); Eosinophils % (A) 1 %; HCT 44.1 % (34.0-46.0); HGB 13.6 gm/dL (11.4-16.0); Hypochromasia Marked; Lymphocytes # (A) 2.6 k/uL (1.0-4.8); Lymphocytes % (A) 30 %; MCH 30.6 pg (25.0-35.0); MCHC 30.8 g/dL (31.0-37.0); MCV 99.4 fL (80.0-100.0); Mean Platelet Volume 6.3; Monocytes # (A) 0.6 k/uL (0-1.0); Monocytes % (A) 6 %; Neutrophils # (A) 5.3 k/uL (1.3-7.7); Neutrophils % (A) 60 %; Platelet Count 398 k/uL (150-450); RBC 4.44 m/uL (3.80-5.40); RDW 14.4 % (11.5-15.5); WBC 8.8 k/uL (3.8-10.6)
[2024-01-04 02:27] LABS: INR 0.9 (<1.2); Partial Thromboplastin Time 25.3 sec (22.0-30.0); Prothrombin Time 9.8 sec (10.0-12.5)
[2024-01-04 02:28] LABS: ALT 23 U/L (4-34); AST 29 U/L (14-36); African American GFR (CKD) >90 (>60 ml/min/1.73 sqM); Albumin 4.1 g/dL (3.5-5.0); Alkaline Phosphatase 57 U/L (38-126); Anion Gap 2 mmol/L; Blood Urea Nitrogen 10 mg/dL (7-17); Calcium 8.7 mg/dL (8.4-10.2); Chloride 94 mmol/L (98-107); Glucose 140 mg/dL (74-99); Magnesium 2.1 mg/dL (1.6-2.3); Non-African American GFR(CKD) >90 (>60 ml/min/1.73 sqM); Potassium 4.3 mmol/L (3.5-5.1); Sodium 136 mmol/L (137-145); Total Bilirubin 0.3 mg/dL (0.2-1.3); Total Protein 6.4 g/dL (6.3-8.2)
[2024-01-04 02:34] LABS: Carbon Dioxide 40 mmol/L (22-30)
[2024-01-04 02:35] LABS: NT-Pro-B-Type Natriuretic Pept 61 pg/mL
--- NOTE | 2024-01-04 02:49 | XR ---
EXAM: XR Chest, 1 View CLINICAL HISTORY: ITS.REASON XR Reason: sob TECHNIQUE: Frontal view of the chest. COMPARISON: No relevant prior studies available. FINDINGS: Lungs: No consolidation or mass. Pleural space: No acute findings. Heart: mild cardiomegaly. Bones/joints: No acute findings. IMPRESSION: No acute cardiopulmonary process.
[2024-01-04] MEDS ORDERED: MORPHINE SULFATE 2 MG/ML SYRINGE IV PRN (02:51)
[2024-01-04] MEDS ORDERED: NALOXONE 0.4 MG/ML 1 ML VIAL IV PRN (02:51)
[2024-01-04] MEDS ORDERED: ONDANSETRON 4 MG/2 ML VIAL IVP PRN (02:51)
[2024-01-04] MEDS ORDERED: NALOXONE 0.4 MG/ML 1 ML VIAL IVP PRN (02:51)
[2024-01-04] MEDS: methylPREDNISolone SOD SUCCI 125 MG/2 ML VIAL IV STA (03:30)
[2024-01-04] MEDS: ALBUTEROL NEBULIZED 2.5 MG/3 ML INHALATION SCH (04:43)
[2024-01-04] MEDS: IPRATROPIUM-ALBUTEROL 3 ML NEB INHALATION STA (04:43)
[2024-01-04] MEDS: ALBUTEROL NEBULIZED 2.5 MG/3 ML INHALATION STA (05:09)
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
[2024-01-04] MEDS: SODIUM CHLORIDE 0.9% 1,000 ML IV SCH (07:02)
[2024-01-04 07:48] VITALS: TEMP 97
[2024-01-04] MEDS: methylPREDNISolone SOD SUCCI 125 MG/2 ML VIAL IV SCH (07:49)
[2024-01-04] MEDS: FORMOTEROL FUMARATE 20 MCG/2 ML NEBU INHALATION SCH (07:52)
[2024-01-04] MEDS: BUDESONIDE 1 MG/2 ML NEBU INHALATION SCH (07:52)
[2024-01-04] MEDS ORDERED: ONDANSETRON 4 MG TAB PO PRN (09:01)
[2024-01-04] MEDS ORDERED: IBUPROFEN 400 MG TAB PO PRN (09:01)
[2024-01-04] MEDS ORDERED: SIMETHICONE 80 MG CHEWABLE PO PRN (09:01)
--- NOTE | 2024-01-04 09:10 | P.HPIM ---
History of Present Illness Patient is a 53-year-old female came in with complaints of respiratory distress, found to be in severe respiratory distress and was on BiPAP, presently on 3 L of oxygen. Patient has significant improvement in her respiratory status since she came to the hospital chest x-ray did not show any pneumonia patient denies any cough. Patient does have history of COPD but quit smoking in month of July patient had a recent hospitalization for COPD and was under ventilatory support required tracheostomy and PEG tube placement at that time. Patient does have a history of HIV with a CD4 count of 83 on November 27, 2023. Patient is presently not on any Bactrim for prophylaxis. Patient takes Biktarvy.. Patient's FEV1 was 22% of predicted REVIEW OF SYSTEMS: All other systems are negative except those mentioned in the HPI PHYSICAL EXAMINATION: GENERAL: The patient is alert and oriented x3, not in any acute distress. Well developed, well nourished. HEENT: Pupils are round and equally reacting to light. EOMI. No scleral icterus. No conjunctival pallor. Normocephalic, atraumatic. No pharyngeal erythema. No thyromegaly. CARDIOVASCULAR: S1 and S2 present. No murmurs, rubs, or gallops. PULMONARY: Decreased air entry to bilateral lung moralez no crackles or wheezing was appreciated ABDOMEN: Soft, nontender, nondistended, normoactive bowel sounds. No palpable organomegaly. MUSCULOSKELETAL: No joint swelling or deformity. EXTREMITIES: No cyanosis, clubbing, or pedal edema. NEUROLOGICAL: Gross neurological examination did not reveal any focal deficits. SKIN: No rashes. Assessment and plan -Acute on chronic hypercapnic and hypoxic respiratory failure, patient uses 2 L of oxygen at home, required BiPAP and now 3 L of oxygen. Continue with systemic steroids inhalational treatments we will cut down the dose of steroids. -HIV on Biktarvy with recent CD4 count of 83 -Depression For above-mentioned chronic medical problems patient will be resumed on appropriate home medications DVT prophylaxis: Lovenox -GI prophylaxis Protonix Past Medical History Past Medical History: Asthma, Blood Disorder, COPD, CVA/TIA Additional Past Medical History / Comment(s): hiv History of Any Multi-Drug Resistant Organisms: None Reported Past Surgical History: No Surgical Hx Reported Additional Past Surgical History / Comment(s): peg and tracheostomy reversal 2023 Past Anesthesia/Blood Transfusion Reactions: No Reported Reaction Past Psychological History: Anxiety, Depression, Panic Disorder Smoking Status: Former smoker Past Alcohol Use History: None Reported, Occasional Past Drug Use History: None Reported - Past Family History Mother History Unknown: Yes Medications and Allergies Home Medications Medication Instructions Recorded Confirmed Type Albuterol Sulfate [Albuterol 2 puff PO RT-Q4H PRN 03/14/22 01/04/24 History Sulfate Hfa] Bictegrav/Emtricit/Tenofov Ala 1 tab PO DAILY 08/10/23 01/04/24 History [Biktarvy 50-200-25 mg Tablet] Ipratropium-Albuterol Nebulize 3 ml INHALATION RT-Q4H PRN 08/10/23 01/04/24 History [Duoneb 0.5 mg-3 mg/3 ml Soln] Famotidine [Pepcid] 20 mg PO BID 09/30/23 01/04/24 History Ondansetron [Zofran] 4 mg PO BID PRN 11/05/23 01/04/24 History ALPRAZolam [Xanax] 0.5 mg PO BID 11/27/23 01/04/24 History Diurex 2 tab PO Q4H PRN MDD 6 tabs 11/27/23 01/04/24 History Fluticasone Propionate [Flonase 1 spray EA NOSTRIL DAILY PRN 11/27/23 01/04/24 History Allergy Relief] Ibuprofen [Motrin Ib] 200 - 400 mg PO Q6H PRN 11/27/23 01/04/24 History Simethicone [Gas-X] 125 - 250 mg PO ACHS PRN MDD 4 11/27/23 01/04/24 History pills Fluticasone/Umeclidin/Vilanter 1 puff INHALATION RT-DAILY 01/04/24 01/04/24 History [Trelegy Ellipta 200-62.5-25] Mirtazapine [Remeron] 15 mg PO HS 01/04/24 01/04/24 History Allergies Allergy/AdvReac Type Severity Reaction Status Date / Time Penicillins Allergy Anaphylaxis Verified 12/25/23 16:08 Milk Containing Products AdvReac Nausea & Verified 12/25/23 16:08 (Dairy) Vomiting & Diarrhea Physical Exam Vitals: Vital Signs Temp Pulse Resp BP Pulse Ox FiO2 01/04/24 08:39 99 01/04/24 08:12 80 01/04/24 08:03 84 01/04/24 08:02 84 01/04/24 07:52 86 30 01/04/24 07:44 97.0 F L 81 12 107/76 91 L 01/04/24 07:00 90 21 128/77 100 01/04/24 06:01 30 01/04/24 05:00 95 01/04/24 04:43 97 30 01/04/24 04:32 105 H 15 112/70 01/04/24 03:30 98 15 120/67 100 01/04/24 02:24 19 01/04/24 02:20 115 H 19 158/98 100 35 01/04/24 02:10 116 H 01/04/24 01:55 113 H 01/04/24 01:40 110 H 22 143/114 97 Intake and Output 01/03/24 01/04/24 01/04/24 22:59 06:59 14:59 Other: Weight 50.4 kg Results CBC & Chem 7: 01/04/24 01:42 01/04/24 01:42 Labs: Abnormal Lab Results - Last 24 Hours (Table) 01/04/24 01/04/24 01/04/24 Range/Units 01:42 01:42 01:42 MCHC 30.8 L (31.0-37.0) g/dL PT 9.8 L (10.0-12.5) sec Sodium 136 L (137-145) mmol/L Chloride 94 L (98-107) mmol/L Carbon Dioxide 40 H (22-30) mmol/L Creatinine 0.36 L (0.52-1.04) mg/dL Glucose 140 H (74-99) mg/dL
[2024-01-04] MEDS: PANTOPRAZOLE 40 MG/10 ML VIAL IV SCH (09:55)
[2024-01-04] MEDS: SULFAMETHOX-TMP 800-160MG 1 EACH TAB PO SCH (09:57)
[2024-01-04] MEDS: NON FORMULARY DRUG (Bictegrav/Emtricit/Tenofov Ala [Biktarvy 50-200-25 Mg Tablet] 1 EACH T PO SCH ×2 (10:08→10:09)
[2024-01-04] MEDS: ALPRAZolam 0.5 MG TAB PO PRN (10:16)
[2024-01-04] MEDS: cloNIDine HCL 0.2 MG TAB PO STA (12:10)
[2024-01-04 13:22] VITALS: RESP 17
[2024-01-04 15:25] VITALS: BP 115/79; PULSE 82
--- NOTE | 2024-01-04 15:54 | P.DS ---
Providers Date of admission: 01/04/24 02:57 Expected date of discharge: 01/04/24 Attending physician: Cheli Zavaleta Consults: 01/04/24 02:51 Consult Physician Routine Consulting Provider: Patti Portillo Consult Reason/Comments: copd Do you want consulting provider notified?: Yes Primary care physician: Francisco Harvey Hospital Course: Final diagnosis -Acute on chronic hypercapnic and hypoxic respiratory failure, patient uses 2 L of oxygen at home, required BiPAP and now 3 L of oxygen. Continue with systemic steroids inhalational treatments we will cut down the dose of steroids. -HIV on Biktarvy with recent CD4 count of 83 -History of depression -DVT prophylaxis: Lovenox -GI prophylaxis Protonix -Full code Discharge disposition Patient is being discharged in a stable condition with guarded prognosis to home. Patient will follow-up with Dr. Harvey in the outpatient setting upon discharge. Patient is to continue with prophylactic Bactrim and outpatient follow-up with infectious disease along with close outpatient follow-up with pulmonary and continued prednisone taper. As scheduled. Total time taken is greater than 35 minutes. Hospital course Patient is a 53-year-old female came in with complaints of respiratory distress, found to be in severe respiratory distress and was on BiPAP, presently on 3 L of oxygen. Patient has significant improvement in her respiratory status since she came to the hospital chest x-ray did not show any pneumonia patient denies any cough. Patient does have history of COPD but quit smoking in month of July patient had a recent hospitalization for COPD and was under ventilatory support required tracheostomy and PEG tube placement at that time. Patient does have a history of HIV with a CD4 count of 83 on November 27, 2023. Patient is presently not on any Bactrim for prophylaxis. Patient takes Biktarvy.. Patient's FEV1 was 22% of predicted. Patient blood pressure improved and evaluated by pulmonary reporting she would be able to be discharged if cleared medically. Repeat vital signs stable and patient is adamant about leaving either AMA or being discharged. Patient was prophylactically started on Bactrim and recommend outpatient follow-up with infectious disease and continuing current medications. Patient to continue with prednisone taper and close outpatient follow-up with pulmonary as well. Patient was adamant to leave as she reports she has multiple pets in the home she needs to take care of. Per nursing staff patient did leave with a steady gait with her chronic O2 as she chronically wears 3 L via nasal cannula. Currently no reports of chest pain, shortness of breath, or palpitations. Patient is afebrile. No reports of nausea or vomiting and patient is tolerating diet. Patient will be going home today. High risk for readmissions given patient's significant history and noncompliance. PHYSICAL EXAMINATION: GENERAL: The patient is alert and oriented x3, not in any acute distress. Well developed, well nourished. HEENT: Pupils are round and equally reacting to light. EOMI. No scleral icterus. No conjunctival pallor. Normocephalic, atraumatic. No pharyngeal erythema. No thyromegaly. CARDIOVASCULAR: S1 and S2 present. No murmurs, rubs, or gallops. PULMONARY: Decreased air entry to bilateral lung moralez no crackles or wheezing was appreciated ABDOMEN: Soft, nontender, nondistended, normoactive bowel sounds. No palpable organomegaly. MUSCULOSKELETAL: No joint swelling or deformity. EXTREMITIES: No cyanosis, clubbing, or pedal edema. NEUROLOGICAL: Gross neurological examination did not reveal any focal deficits. SKIN: No rashes. Please refer to medication reconciliation sheet for a list of medications. The impression and plan of care has been dictated by Deirdre Ashley, Nurse Practitioner as directed. Dr. Dann MD I have performed a history and examination and MDM of this patient, discussed the same with the dictator, and agree with the dictator's assessment and plan as written ,documented as a scribe. Based on total visit time, I have performed more than 50% of the visit. Patient Condition at Discharge: Fair Plan - Discharge Summary New Discharge Prescriptions: New Sulfamethox-Tmp 800-160Mg [Bactrim DS 800-160 mg] 1 each PO DAILY #30 tab predniSONE 10 mg PO DIRECTED #30 tab Continue Albuterol Sulfate [Albuterol Sulfate Hfa] 2 puff PO RT-Q4H PRN PRN Reason: Shortness Of Breath Ipratropium-Albuterol Nebulize [Duoneb 0.5 mg-3 mg/3 ml Soln] 3 ml INHALATION RT-Q4H PRN PRN Reason: Shortness Of Breath Famotidine [Pepcid] 20 mg PO BID ALPRAZolam [Xanax] 0.5 mg PO BID Ibuprofen [Motrin Ib] 200 - 400 mg PO Q6H PRN PRN Reason: Pain Or Fever > 100.5 Fluticasone Propionate [Flonase Allergy Relief] 1 spray EA NOSTRIL DAILY PRN PRN Reason: Congestion Fluticasone/Umeclidin/Vilanter [Trelegy Ellipta 200-62.5-25] 1 puff INHALATION RT-DAILY Bictegrav/Emtricit/Tenofov Ala [Biktarvy 50-200-25 mg Tablet] 1 tab PO DAILY Ondansetron [Zofran] 4 mg PO BID PRN PRN Reason: Nausea Simethicone [Gas-X] 125 - 250 mg PO ACHS PRN MDD 4 pills PRN Reason: gas Diurex 2 tab PO Q4H PRN MDD 6 tabs PRN Reason: weight gain/bloating Mirtazapine [Remeron] 15 mg PO HS Discharge Medication List Albuterol Sulfate [Albuterol Sulfate Hfa] 2 puff PO RT-Q4H PRN 03/14/22 [History] Bictegrav/Emtricit/Tenofov Ala [Biktarvy 50-200-25 mg Tablet] 1 tab PO DAILY 08/10/23 [History] Ipratropium-Albuterol Nebulize [Duoneb 0.5 mg-3 mg/3 ml Soln] 3 ml INHALATION RT-Q4H PRN 08/10/23 [History] Famotidine [Pepcid] 20 mg PO BID 09/30/23 [History] Ondansetron [Zofran] 4 mg PO BID PRN 11/05/23 [History] ALPRAZolam [Xanax] 0.5 mg PO BID 11/27/23 [History] Diurex 2 tab PO Q4H PRN MDD 6 tabs 11/27/23 [History] Fluticasone Propionate [Flonase Allergy Relief] 1 spray EA NOSTRIL DAILY PRN 11/27/23 [History] Ibuprofen [Motrin Ib] 200 - 400 mg PO Q6H PRN 11/27/23 [History] Simethicone [Gas-X] 125 - 250 mg PO ACHS PRN MDD 4 pills 11/27/23 [History] Fluticasone/Umeclidin/Vilanter [Trelegy Ellipta 200-62.5-25] 1 puff INHALATION RT-DAILY 01/04/24 [History] Mirtazapine [Remeron] 15 mg PO HS 01/04/24 [History] Sulfamethox-Tmp 800-160Mg [Bactrim DS 800-160 mg] 1 each PO DAILY #30 tab 01/04/24 [Rx] predniSONE 10 mg PO DIRECTED #30 tab 01/04/24 [Rx] Follow up Appointment(s)/Referral(s): Francisco Harvey [Primary Care Provider] - 1 Week Tushar Zaragoza MD [STAFF PHYSICIAN] - 1 Week Patti Portillo MD [STAFF PHYSICIAN] - 1 Week Discharge Disposition: HOME SELF-CARE
[2024-01-04] MEDS ORDERED: MIRTAZAPINE 15 MG TAB PO SCH (21:00)
[2024-01-04] MEDS ORDERED: methylPREDNISolone SOD SUCCI 40 MG/ML 1 ML VIAL IV SCH (21:00)
[2024-01-05] MEDS ORDERED: ENOXAPARIN 40 MG/0.4 ML SYRINGE SQ SCH (09:00)
== END 2024-01-04 16:03 | disposition left against medical advice (07) ==
LOC: EC 01:36 → INTOOBSV 02:57 → 3SCARD 02:57
PROVIDERS: ADMIT Hospitalist; ATTEND Hospitalist
DX: J44.1 Chronic obstructive pulmonary disease with (acute) exacerbation (principal); J96.22 Acute and chronic respiratory failure with hypercapnia; J96.21 Acute and chronic respiratory failure with hypoxia; E87.1 Hypo-osmolality and hyponatremia; B20 Human immunodeficiency virus [HIV] disease; R91.1 Solitary pulmonary nodule; F32.A Depression, unspecified; Z99.81 Dependence on supplemental oxygen; Z87.891 Personal history of nicotine dependence; Z53.29 Procedure and treatment not carried out because of patient's decision for other reasons; Z91.199 Patient's noncompliance with other medical treatment and regimen due to unspecified reason; Z88.0 Allergy status to penicillin; Z79.51 Long term (current) use of inhaled steroids; Z79.899 Other long term (current) drug therapy
CPT/HCPCS: 96376; 96374; 96375; 99291; 36415; 94660; 94640 ×2; 93005; 83880; 80053; 83605; 83735; 84484; 85025; 85610; 85730; 87636; 71045; G0378; J2270; J2919; J2470; 96361

== ENCOUNTER 2024-01-05 22:46 | Inpatient (IN) | payer MEDICARE, OTHER ==
[2024-01-05] MEDS: IPRATROPIUM-ALBUTEROL 3 ML NEB INHALATION STA ×2 (23:00)
[2024-01-05] MEDS ORDERED: NALOXONE 0.4 MG/ML 1 ML VIAL IV PRN (23:24)
[2024-01-05] MEDS ORDERED: ONDANSETRON 4 MG/2 ML VIAL IVP PRN (23:24)
[2024-01-05] MEDS ORDERED: NALOXONE 0.4 MG/ML 1 ML VIAL IVP PRN (23:24)
--- NOTE | 2024-01-05 23:30 | ED ---
SOB HPI - General Chief Complaint: Shortness of Breath Stated Complaint: TK Time Seen by Provider: 01/05/24 22:55 Source: EMS, RN notes reviewed, old records reviewed Mode of arrival: EMS Limitations: no limitations - History of Present Illness Initial Comments: This is a 53-year-old female to the ER for evaluation patient presents today for evaluation of severe shortness of breath with severe history of COPD recent admission to the hospital yesterday and patient signed out or decided to discharge home MD Complaint: shortness of breath, cough -: days(s) Severity: severe Severity scale (1-10): 10 Quality: dull, aching Consistency: constant Improves With: nothing Worsens With: nothing Known History Of: COPD, asthma Context: recent URI, anxiety Associated Symptoms: denies other symptoms Treatments Prior to Arrival: oxygen, bronchodilator - Related Data Home Medications Medication Instructions Recorded Confirmed Albuterol Sulfate [Albuterol 2 puff INHALATION RT-Q4H PRN 03/14/22 01/21/24 Sulfate Hfa] Bictegrav/Emtricit/Tenofov Ala 1 tab PO DAILY 08/10/23 01/21/24 [Biktarvy 50-200-25 mg Tablet] Ipratropium-Albuterol Nebulize 3 ml INHALATION RT-Q4H PRN 08/10/23 01/21/24 [Duoneb 0.5 mg-3 mg/3 ml Soln] Famotidine [Pepcid] 20 mg PO BID 09/30/23 01/21/24 Ondansetron [Zofran] 4 mg PO BID PRN 11/05/23 01/21/24 ALPRAZolam [Xanax] 0.5 mg PO BID 11/27/23 01/21/24 Diurex 2 tab PO Q4H PRN MDD 6 tabs 11/27/23 01/21/24 Fluticasone Propionate [Flonase 1 spray EA NOSTRIL DAILY PRN 11/27/23 01/21/24 Allergy Relief] Ibuprofen [Motrin Ib] 200 - 400 mg PO Q6H PRN 11/27/23 01/21/24 Simethicone [Gas-X] 125 - 250 mg PO ACHS PRN MDD 4 11/27/23 01/21/24 pills Fluticasone/Umeclidin/Vilanter 1 puff INHALATION RT-DAILY 01/04/24 01/21/24 [Trelegy Ellipta 200-62.5-25] Mirtazapine [Remeron] 15 mg PO HS 01/04/24 01/21/24 Sulfamethox-Tmp 800-160Mg [Bactrim 1 tab PO DIRECTED 01/06/24 01/21/24 DS 800-160 mg] Losartan [Cozaar] 50 mg PO DIRECTED 01/21/24 01/21/24 Nicotine 14Mg/24Hr Patch [Habitrol] 1 patch TRANSDERM DIRECTED 01/21/24 01/21/24 amLODIPine [Norvasc] 10 mg PO DIRECTED 01/21/24 01/21/24 Previous Rx's Medication Instructions Recorded Ipratropium-Albuterol Nebulize 3 ml INHALATION RT-QID #100 each 01/19/24 [Duoneb 0.5 mg-3 mg/3 ml Soln] predniSONE See Taper PO DIRECTED #30 tab 01/19/24 Budesonide-Formot 160-4.5 Mcg 2 puff INHALATION RT-BID #1 each 01/21/24 [Symbicort 160-4.5 Mcg Inhaler] Ipratropium-Albuterol Nebulize 3 ml INHALATION RT-QID each 01/21/24 [Duoneb 0.5 mg-3 mg/3 ml Soln] Allergies Allergy/AdvReac Type Severity Reaction Status Date / Time Penicillins Allergy Anaphylaxis Verified 01/21/24 08:30 Milk Containing Products AdvReac Nausea & Verified 01/21/24 08:30 (Dairy) Vomiting & Diarrhea Review of Systems ROS Statement: Those systems with pertinent positive or pertinent negative responses have been documented in the HPI. ROS Other: All systems not noted in ROS Statement are negative. Past Medical History Past Medical History: Asthma, Blood Disorder, COPD, CVA/TIA Additional Past Medical History / Comment(s): hiv History of Any Multi-Drug Resistant Organisms: None Reported Past Surgical History: No Surgical Hx Reported Additional Past Surgical History / Comment(s): peg and tracheostomy reversal 202 4 Past Anesthesia/Blood Transfusion Reactions: No Reported Reaction Past Psychological History: Anxiety, Depression, Panic Disorder Smoking Status: Former smoker Past Alcohol Use History: None Reported, Occasional Past Drug Use History: None Reported - Past Family History Mother History Unknown: Yes General Exam Limitations: no limitations, altered mental status, physical limitation General appearance: anxious, in distress Head exam: Present: atraumatic, normocephalic, normal inspection Eye exam: Present: normal appearance, PERRL, EOMI. Absent: scleral icterus, conjunctival injection, periorbital swelling ENT exam: Present: normal exam, mucous membranes moist Neck exam: Present: normal inspection. Absent: tenderness, meningismus, lymphadenopathy Respiratory exam: Present: respiratory distress, wheezes, accessory muscle use, decreased breath sounds, prolonged expiratory. Absent: rales, rhonchi, stridor Cardiovascular Exam: Present: normal rhythm, tachycardia, normal heart sounds. Absent: systolic murmur, diastolic murmur, rubs, gallop, clicks GI/Abdominal exam: Present: soft, normal bowel sounds. Absent: distended, tenderness, guarding, rebound, rigid Extremities exam: Present: normal inspection, full ROM, normal capillary refill. Absent: tenderness, pedal edema, joint swelling, calf tenderness Back exam: Present: normal inspection Neurological exam: Present: alert, oriented X3, CN II-XII intact Psychiatric exam: Present: normal affect, normal mood Skin exam: Present: warm, dry, intact, normal color. Absent: rash Course Vital Signs 01/05/24 01/05/24 01/05/24 22:50 22:56 23:00 Temperature 97.4 F L Pulse Rate 130 H Respiratory 40 H 38 H Rate Blood Pressure 183/102 O2 Sat by Pulse 98 Oximetry Fraction of 35 Inspired Oxygen (FIO2) 01/05/24 01/05/24 01/05/24 23:05 23:08 23:15 Temperature Pulse Rate 130 H 126 H Respiratory Rate Blood Pressure O2 Sat by Pulse Oximetry Fraction of 35 Inspired Oxygen (FIO2) 01/05/24 01/05/24 01/05/24 23:16 23:28 23:30 Temperature Pulse Rate 126 H 135 H 120 H Respiratory 29 H Rate Blood Pressure 151/93 O2 Sat by Pulse 99 Oximetry Fraction of Inspired Oxygen (FIO2) 01/05/24 01/06/24 01/06/24 23:45 00:30 01:00 Temperature Pulse Rate 129 H 123 H 116 H Respiratory 29 H 22 21 Rate Blood Pressure 179/104 116/101 141/86 O2 Sat by Pulse 100 99 100 Oximetry Fraction of Inspired Oxygen (FIO2) 01/06/24 01/06/24 01/06/24 01:06 03:30 04:44 Temperature Pulse Rate 111 H Respiratory 21 Rate Blood Pressure 123/78 O2 Sat by Pulse 99 Oximetry Fraction of 35 35 Inspired Oxygen (FIO2) 01/06/24 01/06/24 01/06/24 07:00 08:21 08:22 Temperature 98.7 F Pulse Rate 93 84 77 Respiratory 20 17 Rate Blood Pressure 132/77 127/86 O2 Sat by Pulse 98 Oximetry Fraction of Inspired Oxygen (FIO2) 01/06/24 01/06/24 01/06/24 08:23 08:45 10:00 Temperature Pulse Rate 81 80 Respiratory 18 Rate Blood Pressure 137/86 O2 Sat by Pulse 98 Oximetry Fraction of 35 Inspired Oxygen (FIO2) 01/06/24 01/06/24 01/06/24 11:00 12:27 12:28 Temperature Pulse Rate 87 90 Respiratory 20 Rate Blood Pressure 130/79 O2 Sat by Pulse 98 Oximetry Fraction of 35 Inspired Oxygen (FIO2) 01/06/24 01/06/24 01/06/24 12:29 12:36 13:23 Temperature 97.6 F Pulse Rate 85 74 100 Respiratory 18 26 H Rate Blood Pressure 137/84 140/82 O2 Sat by Pulse 99 94 L Oximetry Fraction of Inspired Oxygen (FIO2) 01/06/24 01/06/24 01/06/24 14:54 15:01 15:06 Temperature Pulse Rate 89 84 Respiratory 18 Rate Blood Pressure O2 Sat by Pulse 97 Oximetry Fraction of 35 Inspired Oxygen (FIO2) 01/06/24 01/06/24 01/06/24 15:09 16:00 17:28 Temperature 98.5 F Pulse Rate 85 96 93 Respiratory 20 18 Rate Blood Pressure 132/90 158/96 O2 Sat by Pulse 98 97 Oximetry Fraction of Inspired Oxygen (FIO2) - Reevaluation(s) Reevaluation #1: 01/05/24 23:28 Medical records reviewed Reevaluation #2: 01/05/24 23:28 Patient symptoms improving here in the ER Reevaluation #3: 01/05/24 23:28 Patient informed of results and questions answered Reevaluation #4: Was pt. sent in by a medical professional or institution (, PA, [facility], urgent care, hospital, or longterm...) When possible be specific @ -no Did you speak to anyone other than the patient for history (EMS, parent, family, police, friend...)? What history was obtained from this source @ -no Did you review nursing and triage notes (agree or disagree)? Why? @ -agree Are old charts reviewed (outside hosp., previous admission, EMS record, old EKG, old radiological studies, urgent care reports/EKG's, longterm records)? Report findings @ -yes Differential Diagnosis (chest pain, altered mental status, abdominal pain women, abdominal pain men, vaginal bleeding, weakness, fever, dyspnea, syncope, headache, dizziness, GI bleed, back pain, seizure, CVA, palpatations, mental health, musculoskeletal)? @ -prior EKG interpreted by me (3pts min.). @ -yes X-rays interpreted by me (1pt min.). @ -yes negative for acute disease CT interpreted by me (1pt min.). @ -no U/S interpreted by me (1pt. min.). @ -no What testing was considered but not performed or refused? (CT, X-rays, U/S, labs)? Why? @ -none What meds were considered but not given or refused? Why? @ -none Did you discuss the management of the patient with other professionals (professionals i.e. , PA, [facility], lab, RT, psych nurse, bilingual social worker, head irrigator, teacher, house officer, case management social worker)? Give summary @ -no Was smoking cessation discussed for >3mins.? @ -no Was critical care preformed (if so, how long)? @ -yes31 Were there social determinants of health that impacted care today? How? (Homelessness, low income, unemployed, alcoholism, drug addiction, transportation, low edu. Level, literacy, decrease access to med. care, prison, rehab)? @ -none Was there de-escalation of care discussed even if they declined (Discuss DNR or withdrawal of care, Hospice)? DNR status @ -no What co-morbidities impacted this encounter? (DM, HTN, Smoking, COPD, CAD, Cancer, CVA, ARF, Chemo, Hep., AIDS, mental health diagnosis, sleep apnea, morbid obesity)? @ -none Was patient admitted / discharged? Hospital course, mention meds given and route, prescriptions, significant lab abnormalities, going to OR and other pertinent info. @ - 53 female respiratory failure. Patient will admit on BiPAP Admit Undiagnosed new problem with uncertain prognosis? @ -no Drug Therapy requiring intensive monitoring for toxicity (Heparin, Nitro, Insulin, Cardizem)? @ -no Were any procedures done? @ -no Diagnosis/symptom? @ -Respiratory failure Acute, or Chronic, or Acute on Chronic? @ -Acute Uncomplicated (without systemic symptoms) or Complicated (systemic symptoms)? @ -Complicated Side effects of treatment? @ -no Exacerbation, Progression, or Severe Exacerbation? @ -exacerbation Poses a threat to life or bodily function? How? (Chest pain, [place], [place], pneumonia, PE, COPD, DKA, ARF, appy, cholecystitis, CVA, Diverticulitis, Homicidal, Suicidal, threat to staff... and all critical care pts) @ -yes respiratory failure 2 Reevaluation #5: Differential Dyspnea: Coronary syndrome, arrhythmia, tamponade, asthma, COPD, pulmonary embolism, pneumonia, pneumothorax, pulmonary effusion, anaphylaxis, diabetic ketoacidosis, flailed chest, pulmonary contusion, diaphragmatic rupture, anemia, neuromuscular, this is not meant to be an all-inclusive list. 01/05/24 23:28 - Consultations Consultation #1: Spoke with [facility] who agrees to admit this patient Medical Decision Making - Medical Decision Making 53 female respiratory failure. Patient will admit on BiPAP - Lab Data Result diagrams: 01/09/24 06:10 01/10/24 09:49 - EKG Data -: EKG Interpreted by Me (EKG is sinus tachycardia 123 NM 135 QRS 81 QTc 355) - Radiology Data Radiology results: report reviewed (Chest x-ray is negative for acute disease), image reviewed Critical Care Time Critical Care Time: Yes Total Critical Care Time: 31 Disposition Clinical Impression: Acute exacerbation of chronic obstructive pulmonary disease, Asthma with acute exacerbation, COPD (chronic obstructive pulmonary disease), Acute respiratory failure, Acute respiratory distress, Hypoxia Disposition: ADMITTED IP TO THIS HOSP Condition: Fair Is patient prescribed a controlled substance at d/c from ED?: No
[2024-01-05] MEDS: methylPREDNISolone SOD SUCCI 125 MG/2 ML VIAL IV SCH (23:31)
[2024-01-05] MEDS: SODIUM CHLORIDE 0.9% 1,000 ML IV STA (23:32)
[2024-01-05] MEDS: methylPREDNISolone SOD SUCCI 125 MG/2 ML VIAL IV STA (23:32)
[2024-01-05] MEDS: SODIUM CHLORIDE 0.9% 500 ML 500 ML IV STA (23:33)
[2024-01-05 23:41] LABS: Basophils # (A) 0.1 k/uL (0-0.2); Basophils % (A) 1 %; Eosinophils # (A) 0.1 k/uL (0-0.7); Eosinophils % (A) 1 %; HCT 42.7 % (34.0-46.0); HGB 13.2 gm/dL (11.4-16.0); Hypochromasia Marked; Lymphocytes # (A) 2.7 k/uL (1.0-4.8); Lymphocytes % (A) 27 %; MCH 30.9 pg (25.0-35.0); MCV 99.8 fL (80.0-100.0); Mean Platelet Volume 6.3; Monocytes # (A) 0.5 k/uL (0-1.0); Monocytes % (A) 5 %; Neutrophils # (A) 6.4 k/uL (1.3-7.7); Neutrophils % (A) 65 %; Platelet Count 381 k/uL (150-450); RBC 4.28 m/uL (3.80-5.40); RDW 14.5 % (11.5-15.5); WBC 9.9 k/uL (3.8-10.6)
[2024-01-05] MEDS: MORPHINE SULFATE 4 MG/ML SYRINGE IV PRN (23:51)
[2024-01-05 23:59] LABS: INR 0.8 (<1.2); Prothrombin Time 9.6 sec (10.0-12.5)
[2024-01-06 00:02] LABS: ALT 26 U/L (4-34); AST 26 U/L (14-36); African American GFR (CKD) >90 (>60 ml/min/1.73 sqM); Albumin 4.5 g/dL (3.5-5.0); Alkaline Phosphatase 53 U/L (38-126); Blood Urea Nitrogen 7 mg/dL (7-17); Calcium 8.6 mg/dL (8.4-10.2); Chloride 89 mmol/L (98-107); Glucose 120 mg/dL (74-99); Magnesium 2.2 mg/dL (1.6-2.3); Non-African American GFR(CKD) >90 (>60 ml/min/1.73 sqM); Sodium 134 mmol/L (137-145); Total Bilirubin 0.2 mg/dL (0.2-1.3)
[2024-01-06 00:08] LABS: Anion Gap 4 mmol/L; NT-Pro-B-Type Natriuretic Pept 116 pg/mL
[2024-01-06 00:28] LABS: Carbon Dioxide 41 mmol/L (22-30)
--- NOTE | 2024-01-06 01:44 | XR ---
EXAM: XR Chest, 1 View CLINICAL HISTORY: ITS.REASON XR Reason: sob TECHNIQUE: Frontal view of the chest. COMPARISON: No relevant prior studies available. FINDINGS: Lungs: No consolidation or mass. Pleural space: No acute findings. Heart: Upper limits. Bones/joints: No acute findings. IMPRESSION: No acute cardiopulmonary process.
[2024-01-06] MEDS ORDERED: ALBUTEROL NEBULIZED 1.25 MG/3 ML INHALATION SCH (08:00)
[2024-01-06] MEDS: ALBUTEROL NEBULIZED 2.5 MG/3 ML INHALATION SCH (08:21)
[2024-01-06] MEDS: methylPREDNISolone SOD SUCCI 125 MG/2 ML VIAL IV SCH (08:28)
[2024-01-06 08:56] LABS: Basophils % (A) 0 %; Eosinophils % (A) 0 %; Hypochromasia Marked; Lymphocytes # (A) 0.3 k/uL (1.0-4.8); Lymphocytes % (A) 5 %; MCH 31.1 pg (25.0-35.0); MCHC 30.9 g/dL (31.0-37.0); MCV 100.5 fL (80.0-100.0); Macrocytosis Slight; Mean Platelet Volume 6.6; Monocytes # (A) 0.1 k/uL (0-1.0); Monocytes % (A) 1 %; Neutrophils # (A) 5.4 k/uL (1.3-7.7); Neutrophils % (A) 93 %; Platelet Count 294 k/uL (150-450); RBC 4.18 m/uL (3.80-5.40); RDW 14.4 % (11.5-15.5); WBC 5.8 k/uL (3.8-10.6)
[2024-01-06 09:07] LABS: ALT 22 U/L (4-34); AST 22 U/L (14-36); African American GFR (CKD) >90 (>60 ml/min/1.73 sqM); Albumin 3.9 g/dL (3.5-5.0); Alkaline Phosphatase 53 U/L (38-126); Blood Urea Nitrogen 10 mg/dL (7-17); Calcium 8.6 mg/dL (8.4-10.2); Chloride 91 mmol/L (98-107); Glucose 141 mg/dL (74-99); Non-African American GFR(CKD) >90 (>60 ml/min/1.73 sqM); Phosphorus 3.7 mg/dL (2.5-4.5); Potassium 4.9 mmol/L (3.5-5.1); Sodium 130 mmol/L (137-145); Total Bilirubin 0.3 mg/dL (0.2-1.3)
[2024-01-06 09:14] LABS: Anion Gap 1 mmol/L
[2024-01-06 09:15] LABS: Carbon Dioxide 38 mmol/L (22-30)
[2024-01-06] MEDS ORDERED: BENZONATATE 100 MG CAP PO PRN (10:07)
[2024-01-06] MEDS ORDERED: BENZOCAINE/MENTHOL LOZENG 1 EACH LOZENGE MUCOUS MEM PRN (10:07)
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
--- NOTE | 2024-01-06 13:57 | P.HPIM ---
History of Present Illness H&P Date: 01/06/24 History of present illness; patient 53-year-old lady with past medical history significant for COPD, chronic respiratory failure, HIV who presents to ER because of shortness of breath. Patient was admitted to the hospital yesterday for similar complaints but signed AMA. Patient stated that ever since her leaving AMA she was feeling short of breath. Short of breath was present on rest as on exertion. Denied any chest pain. There is no complaint of fever or chills. No complaint of palpitations. There was no complaint orthopnea or PND. Denied any nausea, vomiting or abdominal pain. Because of this worsening shortness of breath she decided come back to the ER Initial lab work done in the ER showed WBC 9.9, hemoglobin 13.4, platelet count 381, sodium 134, potassium 4, BUN 7, creatinine 0.41, carbon psyched 41 glucose 120 troponin 0.012 EKG done in the ER showed heart rate of 123, no ST segment elevation or depression seen, no T-wave inversions seen. Chest x-ray done in the ER showed no acute cardiopulmonary process Patient admitted to internal medicine service REVIEW OF SYSTEMS: CONSTITUTIONAL: No fever, no malaise, no fatigue. HEENT: No recent visual problems or hearing problems. Denied any sore throat. CARDIOVASCULAR: As mentioned above PULMONARY: As mentioned above GASTROINTESTINAL: No diarrhea, no nausea, no vomiting, no abdominal pain. NEUROLOGICAL: No headaches, no weakness, no numbness. HEMATOLOGICAL: Denies any bleeding or petechiae. GENITOURINARY: Denies any burning micturition, frequency, or urgency. MUSCULOSKELETAL/RHEUMATOLOGICAL: Denies any joint pain, swelling, or any muscle pain. ENDOCRINE: Denies any polyuria or polydipsia. The rest of the 14-point review of systems is negative. PHYSICAL EXAMINATION: GENERAL: The patient is alert and oriented x3, not in any acute distress. Well developed, well nourished. HEENT: Pupils are round and equally reacting to light. EOMI. No scleral icterus. No conjunctival pallor. Normocephalic, atraumatic. No pharyngeal erythema. No thyromegaly. CARDIOVASCULAR: S1 and S2 present. No murmurs, rubs, or gallops. PULMONARY: Chest is clear to auscultation, no wheezing or crackles. ABDOMEN: Soft, nontender, nondistended, normoactive bowel sounds. No palpable organomegaly. MUSCULOSKELETAL: No joint swelling or deformity. EXTREMITIES: No cyanosis, clubbing, or pedal edema. NEUROLOGICAL: Gross neurological examination did not reveal any focal deficits. SKIN: No rashes. Assessment and plan Acute on chronic hypercapnic hypoxemic respiratory failure Acute COPD exacerbation HIV on Biktarvy Depression Monitor vital signs Monitor CBC Monitor CMP Continue telemetry monitoring Continue oxygen supplementation Aggressive broncho pulmonary hygiene Ordered Mucinex Ordered antitussives Ordered IV Solu-Medrol Ordered breathing treatments Ordered pulmonary consult Consulted ID Labs and medication were reviewed.. Continue same treatment. Continue with symptomatic treatment. Resume home medication. Monitor labs and vitals. DVT and GI prophylaxis. Further recommendations as per clinical course of the patient Dictation was produced using [employer] dictation software. please excuse any grammatical, word or spelling errors. Past Medical History Past Medical History: Asthma, Blood Disorder, COPD, CVA/TIA Additional Past Medical History / Comment(s): hiv History of Any Multi-Drug Resistant Organisms: None Reported Past Surgical History: No Surgical Hx Reported Additional Past Surgical History / Comment(s): peg and tracheostomy reversal 2023 Past Anesthesia/Blood Transfusion Reactions: No Reported Reaction Past Psychological History: Anxiety, Depression, Panic Disorder Smoking Status: Former smoker Past Alcohol Use History: None Reported, Occasional Past Drug Use History: None Reported - Past Family History Mother History Unknown: Yes Medications and Allergies Home Medications Medication Instructions Recorded Confirmed Type Albuterol Sulfate [Albuterol 2 puff PO RT-Q4H PRN 03/14/22 01/06/24 History Sulfate Hfa] Bictegrav/Emtricit/Tenofov Ala 1 tab PO DAILY 08/10/23 01/06/24 History [Biktarvy 50-200-25 mg Tablet] Ipratropium-Albuterol Nebulize 3 ml INHALATION RT-Q4H PRN 08/10/23 01/06/24 Hist ory [Duoneb 0.5 mg-3 mg/3 ml Soln] Famotidine [Pepcid] 20 mg PO BID 09/30/23 01/06/24 History Ondansetron [Zofran] 4 mg PO BID PRN 11/05/23 01/06/24 History ALPRAZolam [Xanax] 0.5 mg PO BID 11/27/23 01/06/24 History Diurex 2 tab PO Q4H PRN MDD 6 tabs 11/27/23 01/06/24 History Fluticasone Propionate [Flonase 1 spray EA NOSTRIL DAILY PRN 11/27/23 01/06/24 History Allergy Relief] Ibuprofen [Motrin Ib] 200 - 400 mg PO Q6H PRN 11/27/23 01/06/24 History Simethicone [Gas-X] 125 - 250 mg PO ACHS PRN MDD 4 11/27/23 01/06/24 History pills Fluticasone/Umeclidin/Vilanter 1 puff INHALATION RT-DAILY 01/04/24 01/06/24 History [Trelegy Ellipta 200-62.5-25] Mirtazapine [Remeron] 15 mg PO HS 01/04/24 01/06/24 History Sulfamethox-Tmp 800-160Mg [Bactrim 1 tab PO DIRECTED 01/06/24 01/06/24 History DS 800-160 mg] predniSONE See Taper PO DIRECTED 01/06/24 01/06/24 History Allergies Allergy/AdvReac Type Severity Reaction Status Date / Time Penicillins Allergy Anaphylaxis Verified 01/06/24 11:07 Milk Containing Products AdvReac Nausea & Verified 01/06/24 11:07 (Dairy) Vomiting & Diarrhea Physical Exam Vitals: Vital Signs Temp Pulse Resp BP Pulse Ox FiO2 01/06/24 08:45 81 01/06/24 08:23 35 01/06/24 08:22 98.7 F 77 17 127/86 98 01/06/24 08:21 84 01/06/24 07:00 93 20 132/77 01/06/24 04:44 35 01/06/24 03:30 111 H 21 123/78 99 01/06/24 01:06 35 01/06/24 01:00 116 H 21 141/86 100 01/06/24 00:30 123 H 22 116/101 99 01/05/24 23:45 129 H 29 H 179/104 100 01/05/24 23:30 120 H 01/05/24 23:28 135 H 29 H 151/93 99 01/05/24 23:16 126 H 01/05/24 23:15 126 H 01/05/24 23:08 35 01/05/24 23:05 130 H 01/05/24 23:00 38 H 01/05/24 22:56 97.4 F L 130 H 40 H 183/102 98 01/05/24 22:50 35 Intake and Output 01/05/24 01/06/24 01/06/24 22:59 06:59 14:59 Other: Weight 50.4 kg Results CBC & Chem 7: 01/06/24 07:58 01/06/24 07:58 Labs: Abnormal Lab Results - Last 24 Hours (Table) 01/05/24 01/05/24 01/06/24 Range/Units 23:25 23:25 07:58 MCV 100.5 H (80.0-100.0) fL MCHC 30.9 L (31.0-37.0) g/dL Lymphocytes # 0.3 L (1.0-4.8) k/uL PT 9.6 L (10.0-12.5) sec Sodium 134 L (137-145) mmol/L Chloride 89 L (98-107) mmol/L Carbon Dioxide 41 H* (22-30) mmol/L Creatinine 0.41 L (0.52-1.04) mg/dL Glucose 120 H (74-99) mg/dL Total Protein (6.3-8.2) g/dL 01/06/24 Range/Units 07:58 MCV (80.0-100.0) fL MCHC (31.0-37.0) g/dL Lymphocytes # (1.0-4.8) k/uL PT (10.0-12.5) sec Sodium 130 L (137-145) mmol/L Chloride 91 L (98-107) mmol/L Carbon Dioxide 38 H (22-30) mmol/L Creatinine 0.30 L (0.52-1.04) mg/dL Glucose 141 H (74-99) mg/dL Total Protein 6.0 L (6.3-8.2) g/dL
[2024-01-06] MEDS: BIKTARVY PO SCH ×2 (17:04→17:43)
[2024-01-06] MEDS ORDERED: FLUTICASONE NASAL 50MCG/SPRAY 16GM BTL EA NOSTRIL PRN (17:18)
[2024-01-06] MEDS ORDERED: DEXTROSE 50% SYRINGE 50 ML IVP PRN ×2 (17:26)
[2024-01-06] MEDS: FLUTICASONE INHALATION SCH (17:43)
[2024-01-06] MEDS: VILANTER INHALATION SCH (17:43)
[2024-01-06] MEDS: UMECLIDIN BL INHALATION SCH (17:43)
[2024-01-06] MEDS: ALPRAZolam 0.5 MG TAB PO SCH (18:30)
[2024-01-06 20:35] LABS: Glucose,Whole Blood 207 mg/dL (70-110)
[2024-01-06] MEDS: INSULIN ASPART (NovoLOG) 100 UNIT/ML VIAL SQ SCH (20:43)
[2024-01-06] MEDS: FAMOTIDINE 20 MG TAB PO SCH (22:31)
[2024-01-06] MEDS: guaiFENesin 600 MG TABLET.ER PO SCH (22:31)
[2024-01-06] MEDS: MIRTAZAPINE 15 MG TAB PO SCH (22:31)
--- NOTE | 2024-01-06 22:45 | P.CONS ---
History of Present Illness - Reason for Consult Consult date: 01/06/24 HIV Requesting physician: Yamil Mendes - Chief Complaint Shortness of breath x few days - History of Present Illness Patient is a 53-year-old female past medical history significant for asthma/COPD CVA TIA HIV for the patient is currently on Biktarvy [facility] for evaluation of increasing shortness of breath and this patient symptom has been going on for about 2 to 3 days and apparently the patient mention symptoms started when she was sitting outside the [facility] even though she said almost 100 feet away noticed to have progressive worsening of shortness of breath for the patient initially presented to hospital yesterday subsequently signed out AMA and the 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 and now presenting back last night with worsening shortness of breath that has been progressive getting worse patient denies having any chest pain she did have a cough but no purulent sputum production denies any fever no chills no nausea no vomiting no abdominal pain and no diarrhea on presentation to the hospital patient was afebrile and no fever have been called subsequently patient was not tachycardic hypotensive patient did have a white count of 9.9 with no left shift creatinine has been normal CO2 is elevated liver enzymes are normal patient did have a chest x-ray no acute cardiopulmonary disease process infectious he was consulted because of her history of HIV for the patient is currently on Biktarvy and did mention she has been taking her medication regularly without missing a dose patient has not follow-up in the office since her last visit to the hospital in October Review of Systems Positive point and negatives has been mentioned in the HPI, complete review of systems was performed and all other systems are negative Past Medical History Past Medical History: Asthma, Blood Disorder, COPD, CVA/TIA Additional Past Medical History / Comment(s): hiv History of Any Multi-Drug Resistant Organisms: None Reported Past Surgical History: No Surgical Hx Reported Additional Past Surgical History / Comment(s): peg and tracheostomy reversal 2023 Past Anesthesia/Blood Transfusion Reactions: No Reported Reaction Past Psychological History: Anxiety, Depression, Panic Disorder Smoking Status: Former smoker Past Alcohol Use History: None Reported, Occasional Past Drug Use History: None Reported - Past Family History Mother History Unknown: Yes Medications and Allergies Home Medications Medication Instructions Recorded Confirmed Type Albuterol Sulfate [Albuterol 2 puff PO RT-Q4H PRN 03/14/22 01/06/24 History Sulfate Hfa] Bictegrav/Emtricit/Tenofov Ala 1 tab PO DAILY 08/10/23 01/06/24 History [Biktarvy 50-200-25 mg Tablet] Ipratropium-Albuterol Nebulize 3 ml INHALATION RT-Q4H PRN 08/10/23 01/06/24 History [Duoneb 0.5 mg-3 mg/3 ml Soln] Famotidine [Pepcid] 20 mg PO BID 09/30/23 01/06/24 History Ondansetron [Zofran] 4 mg PO BID PRN 11/05/23 01/06/24 History ALPRAZolam [Xanax] 0.5 mg PO BID 11/27/23 01/06/24 History Diurex 2 tab PO Q4H PRN MDD 6 tabs 11/27/23 01/06/24 History Fluticasone Propionate [Flonase 1 spray EA NOSTRIL DAILY PRN 11/27/23 01/06/24 History Allergy Relief] Ibuprofen [Motrin Ib] 200 - 400 mg PO Q6H PRN 11/27/23 01/06/24 History Simethicone [Gas-X] 125 - 250 mg PO ACHS PRN MDD 4 11/27/23 01/06/24 History pills Fluticasone/Umeclidin/Vilanter 1 puff INHALATION RT-DAILY 01/04/24 01/06/24 History [Trelegy Ellipta 200-62.5-25] Mirtazapine [Remeron] 15 mg PO HS 01/04/24 01/06/24 History Sulfamethox-Tmp 800-160Mg [Bactrim 1 tab PO DIRECTED 01/06/24 01/06/24 History DS 800-160 mg] predniSONE See Taper PO DIRECTED 01/06/24 01/06/24 History Allergies Allergy/AdvReac Type Severity Reaction Status Date / Time Penicillins Allergy Anaphylaxis Verified 01/06/24 11:07 Milk Containing Products AdvReac Nausea & Verified 01/06/24 11:07 (Dairy) Vomiting & Diarrhea Physical Exam Vitals: Vital Signs Temp Pulse Resp BP Pulse Ox FiO2 01/06/24 08:45 81 01/06/24 08:23 35 01/06/24 08:22 98.7 F 77 17 127/86 98 01/06/24 08:21 84 01/06/24 07:00 93 20 132/77 01/06/24 04:44 35 01/06/24 03:30 111 H 21 123/78 99 01/06/24 01:06 35 01/06/24 01:00 116 H 21 141/86 100 01/06/24 00:30 123 H 22 116/101 99 01/05/24 23:45 129 H 29 H 179/104 100 01/05/24 23:30 120 H 01/05/24 23:28 135 H 29 H 151/93 99 01/05/24 23:16 126 H 01/05/24 23:15 126 H 01/05/24 23:08 35 01/05/24 23:05 130 H 01/05/24 23:00 38 H 01/05/24 22:56 97.4 F L 130 H 40 H 183/102 98 01/05/24 22:50 35 Intake and Output 01/05/24 01/06/24 01/06/24 22:59 06:59 14:59 Other: Weight 50.4 kg GENERAL DESCRIPTION: Middle-aged female lying in bed, no distress. No tachypnea or accessory muscle of respiration use. HEENT: Shows Pallor , no scleral icterus. Oral mucous membrane is dry. No pharyngeal erythema or thrush NECK: Trachea central, no thyromegaly. LUNGS: Unlabored breathing. Decreased intensity of breath sounds HEART: S1, S2, regular rate and rhythm. No loud murmur ABDOMEN: Soft, no tenderness , guarding or rigidity, no organomegaly EXTREMITIES: No edema of feet. SKIN: No rash, no masses palpable. NEUROLOGICAL: The patient is awake, alert, oriented x3, mood and affect normal. Results CBC & Chem 7: 01/06/24 07:58 01/06/24 07:58 Labs: Abnormal Lab Results - Last 24 Hours (Table) 01/05/24 01/05/24 01/06/24 Range/Units 23:25 23:25 07:58 MCV 100.5 H (80.0-100.0) fL MCHC 30.9 L (31.0-37.0) g/dL Lymphocytes # 0.3 L (1.0-4.8) k/uL PT 9.6 L (10.0-12.5) sec Sodium 134 L (137-145) mmol/L Chloride 89 L (98-107) mmol/L Carbon Dioxide 41 H* (22-30) mmol/L Creatinine 0.41 L (0.52-1.04) mg/dL Glucose 120 H (74-99) mg/dL Total Protein (6.3-8.2) g/dL /11/21 Range/Units 07:58 MCV (80.0-100.0) fL MCHC (31.0-37.0) g/dL Lymphocytes # (1.0-4.8) k/uL PT (10.0-12.5) sec Sodium 130 L (137-145) mmol/L Chloride 91 L (98-107) mmol/L Carbon Dioxide 38 H (22-30) mmol/L Creatinine 0.30 L (0.52-1.04) mg/dL Glucose 141 H (74-99) mg/dL Total Protein 6.0 L (6.3-8.2) g/dL Assessment and Plan (1) HIV disease Current Visit: No Status: Acute Code(s): B20 - HUMAN IMMUNODEFICIENCY VIRUS [HIV] DISEASE SNOMED Code(s): 50296109 Plan: 1patient with a history of HIV for the patient has been on Biktarvy which is currently not available in the hospital patient has been advised to get out of medication from home and also discussed with the pharmacist to dispense it once available so the patient did not miss any of her doses. 2patient with increasing shortness of breath more likely COPD exacerbation clinically not behaving as pneumonia no fever no white count chest x-ray has been negative no need for systemic antibiotic therapy We will follow on clinical condition and cultures to further adjust medication if needed Thank you for this consultation we will follow the patient along with you Dictation was produced using [employer] dictation software. please excuse any grammatical, word or spelling errors. Time with Patient: Greater than 30
[2024-01-07 06:22] LABS: Glucose,Whole Blood 187 mg/dL (70-110)
[2024-01-07 07:22] LABS: Basophils % (A) 0 %; Eosinophils % (A) 0 %; HCT 38.6 % (34.0-46.0); Hypochromasia Slight; Lymphocytes # (A) 0.5 k/uL (1.0-4.8); Lymphocytes % (A) 8 %; MCH 31.2 pg (25.0-35.0); MCHC 31.1 g/dL (31.0-37.0); MCV 100.5 fL (80.0-100.0); Macrocytosis Slight; Mean Platelet Volume 6.9; Monocytes # (A) 0.2 k/uL (0-1.0); Monocytes % (A) 3 %; Neutrophils # (A) 5.3 k/uL (1.3-7.7); Neutrophils % (A) 88 %; Platelet Count 321 k/uL (150-450); RBC 3.84 m/uL (3.80-5.40); RDW 14.7 % (11.5-15.5)
[2024-01-07 07:52] LABS: ALT 19 U/L (4-34); AST 20 U/L (14-36); African American GFR (CKD) >90 (>60 ml/min/1.73 sqM); Albumin 3.4 g/dL (3.5-5.0); Alkaline Phosphatase 46 U/L (38-126); Blood Urea Nitrogen 14 mg/dL (7-17); Calcium 8.8 mg/dL (8.4-10.2); Chloride 94 mmol/L (98-107); Glucose 148 mg/dL (74-99); Non-African American GFR(CKD) >90 (>60 ml/min/1.73 sqM); Potassium 4.4 mmol/L (3.5-5.1); Sodium 135 mmol/L (137-145); Total Bilirubin 0.3 mg/dL (0.2-1.3); Total Protein 5.6 g/dL (6.3-8.2)
[2024-01-07] MEDS: ALPRAZolam 0.5 MG TAB PO PRN (07:52)
[2024-01-07 07:59] LABS: Anion Gap 2 mmol/L
[2024-01-07 08:03] LABS: Carbon Dioxide 39 mmol/L (22-30)
[2024-01-07 11:27] LABS: Glucose,Whole Blood 177 mg/dL (70-110)
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
--- NOTE | 2024-01-07 13:04 | P.PN ---
Subjective Progress Note Date: 01/07/24 patient 53-year-old lady with past medical history significant for COPD, chronic respiratory failure, HIV who presents to ER because of shortness of breath. Patient was admitted to the hospital yesterday for similar complaints but signed AMA. Patient stated that ever since her leaving AMA she was feeling short of breath. Short of breath was present on rest as on exertion. Denied any chest pain. There is no complaint of fever or chills. No complaint of palpitations. There was no complaint orthopnea or PND. Denied any nausea, vomiting or abdominal pain. Because of this worsening shortness of breath she decided come back to the ER Initial lab work done in the ER showed WBC 9.9, hemoglobin 13.4, platelet count 381, sodium 134, potassium 4, BUN 7, creatinine 0.41, carbon psyched 41 glucose 120 troponin 0.012 EKG done in the ER showed heart rate of 123, no ST segment elevation or depression seen, no T-wave inversions seen. Chest x-ray done in the ER showed no acute cardiopulmonary process Patient admitted to internal medicine service 01/06. Patient seen and examined. Blood work done this morning showed WBC 6, hemoglobin 12, platelet count 321, sodium 135, potassium 4.4, BUN 14, creatinine 0.33. States she feels better. Currently on 2 L of oxygen at baseline. Gets short of breath on exertion REVIEW OF SYSTEMS: CONSTITUTIONAL: No fever, no malaise,. CARDIOVASCULAR: No chest pain, no palpitations, no syncope. PULMONARY: As mentioned above GASTROINTESTINAL: No diarrhea, no nausea, no vomiting, no abdominal pain. NEUROLOGICAL: No headaches, no weakness, PHYSICAL EXAMINATION: GENERAL: The patient is alert and oriented x3, ill looking HEENT: Pupils are round and equally reacting to light. EOMI. No scleral icterus. No conjunctival pallor. Normocephalic, atraumatic. No pharyngeal erythema. No thyromegaly. CARDIOVASCULAR: S1 and S2 present. No murmurs, rubs, or gallops. PULMONARY: Coarse breath sound bilaterally, expiratory wheeze audible bilaterally ABDOMEN: Soft, nontender, nondistended, normoactive bowel sounds. No palpable organomegaly. MUSCULOSKELETAL: No joint swelling or deformity. EXTREMITIES: No cyanosis, clubbing, or pedal edema. NEUROLOGICAL: Gross neurological examination did not reveal any focal deficits. SKIN: No rashes. Assessment and plan Acute on chronic hypercapnic hypoxemic respiratory failure Acute COPD exacerbation HIV on Biktarvy Depression Monitor vital signs Monitor CBC Monitor CMP Continue telemetry monitoring Continue oxygen supplementation Aggressive broncho pulmonary hygiene Continue Mucinex Continue antitussives Continue IV Solu-Medrol Continue breathing treatments Pulmonary following ID following Labs and medication were reviewed.. Continue same treatment. Continue with symptomatic treatment. Resume home medication. Monitor labs and vitals. DVT and GI prophylaxis. Further recommendations as per clinical course of the patient Dictation was produced using [employer] dictation software. please excuse any grammatical, word or spelling errors. Objective - Vital Signs Vital signs: Vital Signs Temp 98.5 F 01/07/24 08:00 Pulse 92 01/07/24 08:50 Resp 23 01/07/24 08:00 BP 163/91 01/07/24 08:00 Pulse Ox 98 01/07/24 08:00 FiO2 35 01/07/24 08:36 Intake & Output 01/06/24 01/07/24 01/07/24 18:59 06:59 18:59 Intake Total 360 Balance 360 Weight 50.4 kg 70.5 kg Intake: Oral 360 Other: # Voids 2 - Labs CBC & Chem 7: 01/07/24 06:54 01/07/24 06:49 Labs: Abnormal Lab Results - Last 24 Hours (Table) 01/06/24 01/07/24 01/07/24 Range/Units 20:34 06:21 06:49 MCV (80.0-100.0) fL Lymphocytes # (1.0-4.8) k/uL Sodium 135 L (137-145) mmol/L Chloride 94 L (98-107) mmol/L Carbon Dioxide 39 H (22-30) mmol/L Creatinine 0.33 L (0.52-1.04) mg/dL Glucose 148 H (74-99) mg/dL POC Glucose (mg/dL) 207 H 187 H (70-110) mg/dL Total Protein 5.6 L (6.3-8.2) g/dL Albumin 3.4 L (3.5-5.0) g/dL 01/07/24 Range/Units 06:54 MCV 100.5 H (80.0-100.0) fL Lymphocytes # 0.5 L (1.0-4.8) k/uL Sodium (137-145) mmol/L Chloride (98-107) mmol/L Carbon Dioxide (22-30) mmol/L Creatinine (0.52-1.04) mg/dL Glucose (74-99) mg/dL POC Glucose (mg/dL) (70-110) mg/dL Total Protein (6.3-8.2) g/dL Albumin (3.5-5.0) g/dL
--- NOTE | 2024-01-07 15:17 | P.PN ---
Subjective Progress Note Date: 01/07/24 Principal diagnosis: Reason for follow-up is HIV Patient is a 53-year-old female past medical history significant for asthma/COPD CVA TIA HIV for the patient is currently on Biktarvy presenting to the hospital for evaluation of increasing shortness of breath, diagnosed with COPD exacerbation chest x-ray negative for pneumonia. On today's evaluation that is 01/07/2024, the patient continues to be afebrile, the patient is on 2 L current oxygen and breathing slightly comfortably today, the Pt denies having any chest pain or cough, the patient denies having any abdominal pain no vomiting or any diarrhea has been reported by the nursing staff. Patient white count 6.0, creatinine 0.33 Objective - Vital Signs Vital signs: Vital Signs Temp 98.5 F 01/07/24 08:00 Pulse 88 01/07/24 12:25 Resp 20 01/07/24 11:47 BP 159/89 01/07/24 11:47 Pulse Ox 97 01/07/24 11:47 FiO2 35 01/07/24 08:36 Intake & Output 01/06/24 01/07/24 01/07/24 18:59 06:59 18:59 Intake Total 1260 Balance 1260 Weight 50.4 kg 70.5 kg Intake: Oral 1260 Other: # Voids 2 3 - Exam GENERAL DESCRIPTION: Middle-age female e lying in bed in no distress RESPIRATORY SYSTEM: Unlabored breathing , decreased intensity of breath sounds, no wheeze HEART: S1 S2 regular rate and rhythm , ABDOMEN: Soft , no tenderness EXTREMITIES: No edema feet - Labs CBC & Chem 7: 01/07/24 06:54 01/07/24 06:49 Labs: Abnormal Lab Results - Last 24 Hours (Table) 01/06/24 01/07/24 01/07/24 Range/Units 20:34 06:21 06:49 MCV (80.0-100.0) fL Lymphocytes # (1.0-4.8) k/uL Sodium 135 L (137-145) mmol/L Chloride 94 L (98-107) mmol/L Carbon Dioxide 39 H (22-30) mmol/L Creatinine 0.33 L (0.52-1.04) mg/dL Glucose 148 H (74-99) mg/dL POC Glucose (mg/dL) 207 H 187 H (70-110) mg/dL Total Protein 5.6 L (6.3-8.2) g/dL Albumin 3.4 L (3.5-5.0) g/dL 01/07/24 01/07/24 Range/Units 06:54 11:25 MCV 100.5 H (80.0-100.0) fL Lymphocytes # 0.5 L (1.0-4.8) k/uL Sodium (137-145) mmol/L Chloride (98-107) mmol/L Carbon Dioxide (22-30) mmol/L Creatinine (0.52-1.04) mg/dL Glucose (74-99) mg/dL POC Glucose (mg/dL) 177 H (70-110) mg/dL Total Protein (6.3-8.2) g/dL Albumin (3.5-5.0) g/dL Assessment and Plan (1) HIV disease Current Visit: No Status: Acute Code(s): B20 - HUMAN IMMUNODEFICIENCY VIRUS [HIV] DISEASE SNOMED Code(s): 10477577 Plan: 1patient with a history of HIV for the patient has been on Biktarvy, patient has been able to get her home medication and is currently being dispensed 2patient with increasing shortness of breath more likely COPD exacerbation clinically not behaving as pneumonia no fever no white count chest x-ray has been negative no need for systemic antibiotic therapy Dictation was produced using [employer] dictation software. please excuse any grammatical, word or spelling errors. Time with Patient: Less than 30
[2024-01-07 16:34] LABS: Glucose,Whole Blood 137 mg/dL (70-110)
[2024-01-07 20:29] LABS: Glucose,Whole Blood 187 mg/dL (70-110)
[2024-01-07] MEDS: SYMBICORT 160-4.5 MCG INHALER INHALATION SCH (20:37)
[2024-01-08 06:15] LABS: Glucose,Whole Blood 158 mg/dL (70-110)
[2024-01-08] MEDS: IPRATROPIUM-ALBUTEROL 3 ML NEB INHALATION PRN (06:30)
[2024-01-08 11:29] LABS: Glucose,Whole Blood 173 mg/dL (70-110)
[2024-01-08 12:12] LABS: ABG Base Excess 14.5 mmol/L; ABG Oxygen Saturation 98.5 % (94-97); ABG PH 7.39 (7.35-7.45); ABG PO2 104 mmHg (83-108); ABG TCO2 45 mmol/L (19-24); Allen Test Performed? Yes
[2024-01-08 12:15] LABS: ABG HCO3 43 mmol/L (21-25); ABG PCO2 71 mmHg (35-45)
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
[2024-01-08 16:09] LABS: Glucose,Whole Blood 118 mg/dL (70-110)
[2024-01-08 20:07] LABS: Glucose,Whole Blood 147 mg/dL (70-110)
--- NOTE | 2024-01-08 21:30 | P.PN ---
Subjective Progress Note Date: 01/08/24 patient 53-year-old lady with past medical history significant for COPD, chronic respiratory failure, HIV who presents to ER because of shortness of breath. Patient was admitted to the hospital yesterday for similar complaints but signed AMA. Patient stated that ever since her leaving AMA she was feeling short of breath. Short of breath was present on rest as on exertion. Denied any chest pain. There is no complaint of fever or chills. No complaint of palpitations. There was no complaint orthopnea or PND. Denied any nausea, vomiting or abdominal pain. Because of this worsening shortness of breath she decided come back to the ER Initial lab work done in the ER showed WBC 9.9, hemoglobin 13.4, platelet count 381, sodium 134, potassium 4, BUN 7, creatinine 0.41, carbon psyched 41 glucose 120 troponin 0.012 EKG done in the ER showed heart rate of 123, no ST segment elevation or depression seen, no T-wave inversions seen. Chest x-ray done in the ER showed no acute cardiopulmonary process Patient admitted to internal medicine service 01/06. Patient seen and examined. Blood work done this morning showed WBC 6, hemoglobin 12, platelet count 321, sodium 135, potassium 4.4, BUN 14, creatinine 0.33. States she feels better. Currently on 2 L of oxygen at baseline. Gets short of breath on exertion 01/08/2024 Patient is evaluated today in follow up. Patient continues to report significant shortness of breath and having accessory muscle use. Requiring the BiPAP at night and some during the day. REVIEW OF SYSTEMS: CONSTITUTIONAL: No fever, no malaise,. CARDIOVASCULAR: No chest pain, no palpitations, no syncope. PULMONARY: As mentioned above GASTROINTESTINAL: No diarrhea, no nausea, no vomiting, no abdominal pain. NEUROLOGICAL: No headaches, no weakness, PHYSICAL EXAMINATION: GENERAL: The patient is alert and oriented x3, ill looking HEENT: Pupils are round and equally reacting to light. EOMI. No scleral icterus. No conjunctival pallor. Normocephalic, atraumatic. No pharyngeal erythema. No thyromegaly. CARDIOVASCULAR: S1 and S2 present. No murmurs, rubs, or gallops. PULMONARY: Coarse breath sound bilaterally, expiratory wheeze audible bilaterally ABDOMEN: Soft, nontender, nondistended, normoactive bowel sounds. No palpable organomegaly. MUSCULOSKELETAL: No joint swelling or deformity. EXTREMITIES: No cyanosis, clubbing, or pedal edema. NEUROLOGICAL: Gross neurological examination did not reveal any focal deficits. SKIN: No rashes. Assessment and plan Acute on chronic hypercapnic hypoxemic respiratory failure Acute COPD exacerbation HIV on Biktarvy Depression Hx CVA/TIA Anxiety/Depression/Panic disorder Chronic nicotine use Hx of prolonged intubation requiring trach/peg status post reversal. GI prophylaxis DVT prophylaxis Full Code Plan Patient will continue on IV solumedrol Pulmonary following Procalcitonin level 0.03. Continue duoneb symbicort BiPAP per pulmonary Repeat BMP The impression and plan of care has been dictated by Vangie Barton, Nurse Practitioner as directed. Dr. Dann MD I have performed a history and physical examination and medical decision making of this patient, discussed the same with the dictator, and agree with the dictators assessment and plan as written, documented as a scribe. Based on total visit time, I have performed more than 50% of this visit. Objective - Vital Signs Vital signs: Vital Signs Temp 97.6 F 01/08/24 08:00 Pulse 91 01/08/24 14:00 Resp 20 01/08/24 14:00 BP 135/78 01/08/24 12:00 Pulse Ox 99 01/08/24 12:00 FiO2 35 01/08/24 08:29 Intake & Output 01/07/24 01/08/24 01/08/24 18:59 06:59 18:59 Intake Total 1500 240 180 Output Total 100 Balance 1500 140 180 Weight 74 kg Intake: Oral 1500 240 180 Output: Urine 100 Other: Voiding Method Bedside Commode Bedside Commode # Voids 3 1 1 # Bowel Movements 1 - Labs CBC & Chem 7: 01/07/24 06:54 01/07/24 06:49 Labs: Abnormal Lab Results - Last 24 Hours (Table) 01/07/24 01/07/24 01/08/24 Range/Units 16:24 20:28 06:13 ABG pCO2 (35-45) mmHg ABG HCO3 (21-25) mmol/L ABG Total CO2 (19-24) mmol/L ABG O2 Saturation (94-97) % POC Glucose (mg/dL) 137 H 187 H 158 H (70-110) mg/dL 01/08/24 01/08/24 Range/Units 11:23 11:27 ABG pCO2 71 H* (35-45) mmHg ABG HCO3 43 H* (21-25) mmol/L ABG Total CO2 45 H (19-24) mmol/L ABG O2 Saturation 98.5 H (94-97) % POC Glucose (mg/dL) 173 H (70-110) mg/dL Assessment and Plan Time with Patient: Less than 30
[2024-01-09 06:09] LABS: Glucose,Whole Blood 144 mg/dL (70-110)
[2024-01-09 07:02] LABS: Basophils % (A) 0 %; Eosinophils % (A) 0 %; HCT 36.6 % (34.0-46.0); HGB 11.8 gm/dL (11.4-16.0); Lymphocytes # (A) 0.4 k/uL (1.0-4.8); Lymphocytes % (A) 7 %; MCH 31.7 pg (25.0-35.0); MCHC 32.2 g/dL (31.0-37.0); MCV 98.4 fL (80.0-100.0); Mean Platelet Volume 7.2; Monocytes # (A) 0.2 k/uL (0-1.0); Monocytes % (A) 3 %; Neutrophils % (A) 90 %; Platelet Count 278 k/uL (150-450); RBC 3.72 m/uL (3.80-5.40); RDW 14.7 % (11.5-15.5); WBC 5.6 k/uL (3.8-10.6)
[2024-01-09 07:23] LABS: African American GFR (CKD) >90 (>60 ml/min/1.73 sqM); Anion Gap 3 mmol/L; Blood Urea Nitrogen 27 mg/dL (7-17); Calcium 8.6 mg/dL (8.4-10.2); Chloride 93 mmol/L (98-107); Glucose 128 mg/dL (74-99); Non-African American GFR(CKD) >90 (>60 ml/min/1.73 sqM); Potassium 4.3 mmol/L (3.5-5.1); Sodium 136 mmol/L (137-145)
[2024-01-09 08:15] LABS: Carbon Dioxide 41 mmol/L (22-30)
[2024-01-09 11:23] LABS: Glucose,Whole Blood 183 mg/dL (70-110)
[2024-01-09] MEDS: CHOLESTYRAMINE (WITH SUGAR) 4 GM PACKET PO SCH (11:50)
[2024-01-09] MEDS: LOPERAMIDE 2 MG CAP PO PRN (11:50)
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
--- NOTE | 2024-01-09 15:18 | P.PN ---
Subjective Progress Note Date: 01/08/24 Principal diagnosis: Reason for follow-up is HIV Patient is a 53-year-old female past medical history significant for asthma/COPD CVA TIA HIV for the patient is currently on Biktarvy presenting to the hospital for evaluation of increasing shortness of breath, diagnosed with COPD exacerbation chest x-ray negative for pneumonia. On today's evaluation that is 01/08/2024, Patient is afebrile patient is currently on 2 L current oxygen and denies having any chest pain still complain of shortness of breath but no cough, the patient denies any nausea vomiting did not have any abdominal pain and no diarrhea No lab work today Objective - Vital Signs Vital signs: Vital Signs Temp 97.6 F 01/08/24 08:00 Pulse 92 01/08/24 12:33 Resp 20 01/08/24 08:00 BP 163/84 01/08/24 08:00 Pulse Ox 99 01/08/24 08:00 FiO2 35 01/08/24 08:29 Intake & Output 01/07/24 01/08/24 01/08/24 18:59 06:59 18:59 Intake Total 1500 240 Output Total 100 Balance 1500 140 Weight 74 kg Intake: Oral 1500 240 Output: Urine 100 Other: Voiding Method Bedside Commode Bedside Commode # Voids 3 1 # Bowel Movements 1 - Exam GENERAL DESCRIPTION: Middle-age female e lying in bed in no distress RESPIRATORY SYSTEM: Unlabored breathing , decreased intensity of breath sounds, no wheeze HEART: S1 S2 regular rate and rhythm , ABDOMEN: Soft , no tenderness EXTREMITIES: No edema feet - Labs CBC & Chem 7: 01/09/24 06:10 01/09/24 06:10 Labs: Abnormal Lab Results - Last 24 Hours (Table) 01/07/24 01/07/24 01/08/24 Range/Units 16:24 20:28 06:13 ABG pCO2 (35-45) mmHg ABG HCO3 (21-25) mmol/L ABG Total CO2 (19-24) mmol/L ABG O2 Saturation (94-97) % POC Glucose (mg/dL) 137 H 187 H 158 H (70-110) mg/dL 01/08/24 01/08/24 Range/Units 11:23 11:27 ABG pCO2 71 H* (35-45) mmHg ABG HCO3 43 H* (21-25) mmol/L ABG Total CO2 45 H (19-24) mmol/L ABG O2 Saturation 98.5 H (94-97) % POC Glucose (mg/dL) 173 H (70-110) mg/dL Assessment and Plan (1) HIV disease Current Visit: No Status: Acute Code(s): B20 - HUMAN IMMUNODEFICIENCY VIRUS [HIV] DISEASE SNOMED Code(s): 43432984 Plan: 1patient with a history of HIV for the patient has been on Biktarvy, patient has been able to get her home medication and continue with Biktarvy 2patient with increasing shortness of breath more likely COPD exacerbation clinically not behaving as pneumonia no fever no white count chest x-ray has been negative, patient is currently being monitored closely off antibiotic repeat Dictation was produced using [employer] dictation software. please excuse any grammatical, word or spelling errors. Time with Patient: Less than 30
--- NOTE | 2024-01-09 15:19 | P.PN ---
Subjective Progress Note Date: 01/09/24 Principal diagnosis: Reason for follow-up is HIV Patient is a 53-year-old female past medical history significant for asthma/COPD CVA TIA HIV for the patient is currently on Biktarvy presenting to the hospital for evaluation of increasing shortness of breath, diagnosed with COPD exacerbation chest x-ray negative for pneumonia. On today's evaluation that is 01/09/2024, patient has been afebrile, patient is breathing slightly comfortably and is currently on 2 L nasal cannula oxygen, patient denies having any significant cough no chest pain, patient denies nausea vomiting or diarrhea and no abdominal pain. Patient white count is 5.6, creatinine 0.46 Objective - Vital Signs Vital signs: Vital Signs Temp 98.3 F 01/09/24 11:35 Pulse 96 01/09/24 12:22 Resp 19 01/09/24 11:35 BP 136/87 01/09/24 11:35 Pulse Ox 99 01/09/24 07:53 FiO2 35 01/09/24 11:35 Intake & Output 01/08/24 01/09/24 01/09/24 18:59 06:59 18:59 Intake Total 360 360 Balance 360 360 Weight 74.5 kg Intake: Oral 360 360 Other: Voiding Method Bedside Commode Bedside Commode Bedside Commode # Voids 1 3 1 - Exam GENERAL DESCRIPTION: Middle-age female e lying in bed in no distress RESPIRATORY SYSTEM: Unlabored breathing , decreased intensity of breath sounds, no wheeze HEART: S1 S2 regular rate and rhythm , ABDOMEN: Soft , no tenderness EXTREMITIES: No edema feet - Labs CBC & Chem 7: 01/09/24 06:10 01/09/24 06:10 Labs: Abnormal Lab Results - Last 24 Hours (Table) 01/08/24 01/08/24 01/09/24 Range/Units 16:07 20:05 06:08 RBC (3.80-5.40) m/uL Lymphocytes # (1.0-4.8) k/uL Sodium (137-145) mmol/L Chloride (98-107) mmol/L Carbon Dioxide (22-30) mmol/L BUN (7-17) mg/dL Creatinine (0.52-1.04) mg/dL Glucose (74-99) mg/dL POC Glucose (mg/dL) 118 H 147 H 144 H (70-110) mg/dL 01/09/24 01/09/24 01/09/24 Range/Units 06:10 06:10 11:21 RBC 3.72 L (3.80-5.40) m/uL Lymphocytes # 0.4 L (1.0-4.8) k/uL Sodium 136 L (137-145) mmol/L Chloride 93 L (98-107) mmol/L Carbon Dioxide 41 H* (22-30) mmol/L BUN 27 H (7-17) mg/dL Creatinine 0.46 L (0.52-1.04) mg/dL Glucose 128 H (74-99) mg/dL POC Glucose (mg/dL) 183 H (70-110) mg/dL Assessment and Plan (1) HIV disease Current Visit: No Status: Acute Code(s): B20 - HUMAN IMMUNODEFICIENCY VIRUS [HIV] DISEASE SNOMED Code(s): 11045482 Plan: 1patient with increasing shortness of breath more likely COPD exacerbation clinically not behaving as pneumonia no fever no white count chest x-ray has been negative, patient is currently being monitored closely off antibiotic 2-patient with a history of HIV for the patient has been on Biktarvy, patient has been able to get her home medication and continue with Biktarvy Dictation was produced using [employer] dictation software. please excuse any grammatical, word or spelling errors.
[2024-01-09 16:19] LABS: Glucose,Whole Blood 143 mg/dL (70-110)
[2024-01-09] MEDS: predniSONE 20 MG TAB PO SCH (16:33)
[2024-01-09] MEDS: SIMETHICONE 40 MG/0.6 ML DROPS 2,000 MG/30 ML BOTTLE PO PRN (16:37)
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
[2024-01-09 20:11] LABS: Glucose,Whole Blood 187 mg/dL (70-110)
[2024-01-10 06:34] LABS: Glucose,Whole Blood 113 mg/dL (70-110)
[2024-01-10 10:23] LABS: African American GFR (CKD) >90 (>60 ml/min/1.73 sqM); Blood Urea Nitrogen 33 mg/dL (7-17); Calcium 8.9 mg/dL (8.4-10.2); Chloride 93 mmol/L (98-107); Glucose 89 mg/dL (74-99); Non-African American GFR(CKD) >90 (>60 ml/min/1.73 sqM); Potassium 3.9 mmol/L (3.5-5.1); Sodium 137 mmol/L (137-145)
[2024-01-10 10:30] LABS: Anion Gap 2 mmol/L
[2024-01-10 10:39] LABS: Carbon Dioxide 42 mmol/L (22-30)
[2024-01-10 11:30] VITALS: BP 166/74; TEMP 98
[2024-01-10 11:40] LABS: Glucose,Whole Blood 101 mg/dL (70-110)
[2024-01-10 12:40] VITALS: PULSE 80; RESP 16
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
--- NOTE | 2024-01-11 14:00 | P.PN ---
Subjective Progress Note Date: 01/10/24 Principal diagnosis: Reason for follow-up is HIV Patient is a 53-year-old female past medical history significant for asthma/COPD CVA TIA HIV for the patient is currently on Biktarvy presenting to the hospital for evaluation of increasing shortness of breath, diagnosed with COPD exacerbation chest x-ray negative for pneumonia. On today's evaluation that is 01/10/2024, Patient is afebrile this morning patient denies having any chest pain, the patient breathing has improved patient denies having any chest pain or cough no nausea vomiting no abdominal pain or diarrhea. No lab draw today Objective - Vital Signs Vital signs: Vital Signs Temp 98.0 F 01/10/24 11:22 Pulse 94 01/10/24 11:22 Resp 19 01/10/24 11:22 BP 166/74 01/10/24 11:22 Pulse Ox 98 01/10/24 11:22 FiO2 35 01/09/24 11:35 Intake & Output 01/09/24 01/10/24 01/10/24 18:59 06:59 18:59 Intake Total 360 240 118 Balance 360 240 118 Weight 54.4 kg Intake: Oral 360 240 118 Other: Voiding Method Bedside Commode Bedside Commode Bedside Commode # Voids 1 2 # Bowel Movements 2 - Exam GENERAL DESCRIPTION: Middle-age female e lying in bed in no distress RESPIRATORY SYSTEM: Unlabored breathing , decreased intensity of breath sounds, no wheeze HEART: S1 S2 regular rate and rhythm , ABDOMEN: Soft , no tenderness EXTREMITIES: No edema feet - Labs CBC & Chem 7: 01/09/24 06:10 01/10/24 09:49 Labs: Abnormal Lab Results - Last 24 Hours (Table) 01/09/24 01/09/24 01/10/24 Range/Units 16:17 20:09 06:32 Chloride (98-107) mmol/L Carbon Dioxide (22-30) mmol/L BUN (7-17) mg/dL Creatinine (0.52-1.04) mg/dL POC Glucose (mg/dL) 143 H 187 H 113 H (70-110) mg/dL 01/10/24 Range/Units 09:49 Chloride 93 L (98-107) mmol/L Carbon Dioxide 42 H* (22-30) mmol/L BUN 33 H (7-17) mg/dL Creatinine 0.46 L (0.52-1.04) mg/dL POC Glucose (mg/dL) (70-110) mg/dL Assessment and Plan (1) HIV disease Status: Acute Code(s): B20 - HUMAN IMMUNODEFICIENCY VIRUS [HIV] DISEASE SNOMED Code(s): 86325518 Plan: 1patient with increasing shortness of breath more likely COPD exacerbation clinically not behaving as pneumonia no fever no white count chest x-ray has been negative, patient to continue with the bronchodilator steroids per pulmonary and will monitor closely off antibiotics 2-patient with a history of HIV for the patient has been on Biktarvy, patient has been able to get her home medication and continue with Biktarvy Dictation was produced using [employer] dictation software. please excuse any grammatical, word or spelling errors. Time with Patient: Less than 30
--- NOTE | 2024-01-12 14:53 | P.DS ---
Providers Date of admission: 01/05/24 23:24 Attending physician: Cheli Zavaleta Consults: 01/05/24 23:24 Consult Physician Routine Consulting Provider: Patti Portillo Consult Reason/Comments: copd Do you want consulting provider notified?: Yes 01/06/24 10:04 Consult Physician Routine Consulting Provider: Tushar Zaragoza Consult Reason/Comments: History of HIV , low CD4 count Do you want consulting provider notified?: Yes Primary care physician: Francisco Harvey Hospital Course: Final Diagnosis Acute on chronic hypercapnic hypoxemic respiratory failure Acute COPD exacerbation HIV on Biktarvy Depression Hx CVA/TIA Anxiety/Depression/Panic disorder Chronic nicotine use Hx of prolonged intubation requiring trach/peg status post reversal. Discharge Disposition Patient stable for discharge home with an overall guarded prognosis secondary to her severe COPD. Patient is mainly requiring BiPAP in the hospital however tolerating some nasal cannula with adequate oxygen saturations. Her overnight pulse oximeter test did not qualify this patient for BiPAP on an outpatient basis. She will discharge on her same home medications and continue an oral prednisone taper. Patient will need close follow-up with Dr. Davin Pro on an outpatient basis. Hospital Course patient 53-year-old lady with past medical history significant for COPD, chronic respiratory failure, HIV who presents to ER because of shortness of breath. Patient was admitted to the hospital yesterday for similar complaints but signed AMA. Patient stated that ever since her leaving AMA she was feeling short of breath. Short of breath was present on rest as on exertion. Denied any chest pain. There is no complaint of fever or chills. No complaint of palpitations. There was no complaint orthopnea or PND. Denied any nausea, vomiting or abdominal pain. Because of this worsening shortness of breath she decided come back to the ER. Initial lab work done in the ER showed WBC 9.9, hemoglobin 13.4, platelet count 381, sodium 134, potassium 4, BUN 7, creatinine 0.41, carbon psyched 41 glucose 120 troponin 0.012. EKG done in the ER showed heart rate of 123, no ST segment elevation or depression seen, no T-wave inve rsions seen. Chest x-ray done in the ER showed no acute cardiopulmonary process. Patient admitted to internal medicine service pulmonary consultation. Patient was continued essentially on BiPAP underwent a overnight home oxygen pulse oximeter test findings were not compatible with patient being for BiPAP on an outpatient basis. Patient wanted to be discharged home and felt she was back to baseline she was transition to oral prednisone by pulmonary services. Patient is a high risk for readmission secondary to her severe COPD. Please see medication reconciliation for a list of current medications. Thank you for allowing us to participate in the care of this patient. The impression and plan of care has been dictated by Vangie Barton, Nurse Practitioner as directed. Dr. Dann MD I have performed a history and physical examination and medical decision making of this patient, discussed the same with the dictator, and agree with the dictators assessment and plan as written, documented as a scribe. Based on total visit time, I have performed more than 50% of this visit. Patient Condition at Discharge: Fair Plan - Discharge Summary Discharge Rx Participant: No New Discharge Prescriptions: Continue Albuterol Sulfate [Albuterol Sulfate Hfa] 2 puff PO RT-Q4H PRN PRN Reason: Shortness Of Breath Ipratropium-Albuterol Nebulize [Duoneb 0.5 mg-3 mg/3 ml Soln] 3 ml INHALATION RT-Q4H PRN PRN Reason: Shortness Of Breath Famotidine [Pepcid] 20 mg PO BID ALPRAZolam [Xanax] 0.5 mg PO BID Ibuprofen [Motrin Ib] 200 - 400 mg PO Q6H PRN PRN Reason: Pain Or Fever > 100.5 Fluticasone Propionate [Flonase Allergy Relief] 1 spray EA NOSTRIL DAILY PRN PRN Reason: Congestion Fluticasone/Umeclidin/Vilanter [Trelegy Ellipta 200-62.5-25] 1 puff INHALATION RT-DAILY Sulfamethox-Tmp 800-160Mg [Bactrim DS 800-160 mg] 1 tab PO DIRECTED Bictegrav/Emtricit/Tenofov Ala [Biktarvy 50-200-25 mg Tablet] 1 tab PO DAILY Ondansetron [Zofran] 4 mg PO BID PRN PRN Reason: Nausea Simethicone [Gas-X] 125 - 250 mg PO ACHS PRN MDD 4 pills PRN Reason: gas Diurex 2 tab PO Q4H PRN MDD 6 tabs PRN Reason: weight gain/bloating Mirtazapine [Remeron] 15 mg PO HS Discontinued predniSONE See Taper PO DIRECTED No Action predniSONE [Deltasone] See Taper PO DIRECTED Discharge Medication List Albuterol Sulfate [Albuterol Sulfate Hfa] 2 puff PO RT-Q4H PRN 03/14/22 [History] Bictegrav/Emtricit/Tenofov Ala [Biktarvy 50-200-25 mg Tablet] 1 tab PO DAILY 08/10/23 [History] Ipratropium-Albuterol Nebulize [Duoneb 0.5 mg-3 mg/3 ml Soln] 3 ml INHALATION RT-Q4H PRN 08/10/23 [History] Famotidine [Pepcid] 20 mg PO BID 09/30/23 [History] Ondansetron [Zofran] 4 mg PO BID PRN 11/05/23 [History] ALPRAZolam [Xanax] 0.5 mg PO BID 11/27/23 [History] Diurex 2 tab PO Q4H PRN MDD 6 tabs 11/27/23 [History] Fluticasone Propionate [Flonase Allergy Relief] 1 spray EA NOSTRIL DAILY PRN 11/27/23 [History] Ibuprofen [Motrin Ib] 200 - 400 mg PO Q6H PRN 11/27/23 [History] Simethicone [Gas-X] 125 - 250 mg PO ACHS PRN MDD 4 pills 11/27/23 [History] Fluticasone/Umeclidin/Vilanter [Trelegy Ellipta 200-62.5-25] 1 puff INHALATION RT-DAILY 01/04/24 [History] Mirtazapine [Remeron] 15 mg PO HS 01/04/24 [History] Sulfamethox-Tmp 800-160Mg [Bactrim DS 800-160 mg] 1 tab PO DIRECTED 01/06/24 [History] predniSONE [Deltasone] See Taper PO DIRECTED 01/11/24 [History] Follow up Appointment(s)/Referral(s): Davin Pro DO [Doctor of Osteopathic Medicine] - 01/22/24 8:30 am Francisco Harvey [Primary Care Provider] - 01/12/24 9:45 am Ambulatory/Diagnostic Orders: Basic Metabolic Panel [LAB.AMB] Location: None Selected Complete Blood Count w/diff [LAB.AMB] Time Frame: 3 Days, Location: None Selected Patient Instructions/Handouts: COPD (Chronic Obstructive Pulmonary Disease) (DC), Acute Respiratory Failure (GEN) Discharge Disposition: HOME SELF-CARE
== END 2024-01-10 15:07 | disposition home or self-care (01) | DRG 189 ==
LOC: EC 22:46 → 3SCARD 23:24
PROVIDERS: ADMIT Hospitalist; ATTEND Hospitalist
PROC: 5A09357 Assistance with Respiratory Ventilation, Less than 24 Consecutive Hours, Continuous Positive Airway Pressure (ICD-10-PCS; principal; 2024-01-05)
DX: J96.21 Acute and chronic respiratory failure with hypoxia (principal); B20 Human immunodeficiency virus [HIV] disease; J44.1 Chronic obstructive pulmonary disease with (acute) exacerbation; J45.901 Unspecified asthma with (acute) exacerbation; J96.22 Acute and chronic respiratory failure with hypercapnia; F32.A Depression, unspecified; F41.0 Panic disorder [episodic paroxysmal anxiety]; R91.1 Solitary pulmonary nodule; Z79.51 Long term (current) use of inhaled steroids; Z86.73 Personal history of transient ischemic attack (TIA), and cerebral infarction without residual deficits; Z87.891 Personal history of nicotine dependence; Z79.899 Other long term (current) drug therapy
CPT/HCPCS: 36600; 71045; 80048; 80053; 82805; 83605; 83735; 83880; 84100; 84145; 84484; 85025; 85610; 85730; 93005; 94640; 94660; 94760; 96361; 96374; 96375; 96376; 99291

== ENCOUNTER 2024-01-11 00:38 | Inpatient (IN) | payer MEDICARE, OTHER ==
[2024-01-11] MEDS: ETOMIDATE 2 MG/ML 10 ML VIAL IVP STA (00:57)
[2024-01-11] MEDS: LORazepam 2 MG/ML INJ IV STA ×3 (01:01→02:46)
[2024-01-11] MEDS: ROCURONIUM 10 MG/ML (5 ML VIAL) IV STA (01:02)
[2024-01-11] MEDS: methylPREDNISolone SOD SUCCI 125 MG/2 ML VIAL IV STA (02:06)
[2024-01-11 02:10] LABS: VBG PH 7.42 (7.31-7.41)
[2024-01-11 02:12] LABS: Basophils # (A) 0.1 k/uL (0-0.2); Basophils % (A) 1 %; Eosinophils % (A) 0 %; HCT 38.9 % (34.0-46.0); HGB 12.4 gm/dL (11.4-16.0); Hypochromasia Slight; Lymphocytes # (A) 0.9 k/uL (1.0-4.8); Lymphocytes % (A) 9 %; MCH 31.4 pg (25.0-35.0); MCHC 31.8 g/dL (31.0-37.0); MCV 98.8 fL (80.0-100.0); Mean Platelet Volume 7.4; Monocytes # (A) 0.7 k/uL (0-1.0); Monocytes % (A) 7 %; Neutrophils # (A) 8.2 k/uL (1.3-7.7); Neutrophils % (A) 82 %; Platelet Count 220 k/uL (150-450); RBC 3.94 m/uL (3.80-5.40); WBC 9.9 k/uL (3.8-10.6)
[2024-01-11 02:21] LABS: ALT 31 U/L (4-34); African American GFR (CKD) >90 (>60 ml/min/1.73 sqM); Albumin 3.3 g/dL (3.5-5.0); Blood Urea Nitrogen 23 mg/dL (7-17); Calcium 7.7 mg/dL (8.4-10.2); Chloride 87 mmol/L (98-107); Glucose 115 mg/dL (74-99); Non-African American GFR(CKD) >90 (>60 ml/min/1.73 sqM); Sodium 132 mmol/L (137-145); Total Bilirubin 0.5 mg/dL (0.2-1.3); Total Protein 5.2 g/dL (6.3-8.2)
--- NOTE | 2024-01-11 02:22 | XR ---
EXAM: XR Chest, 1 View CLINICAL HISTORY: ITS.REASON XR Reason: Tube placement TECHNIQUE: Frontal view of the chest. COMPARISON: 01/05/2024 IMPRESSION: NG tube site port is around the GE junction. Recommend advancing 3-5 cm. ET tube terminates 10 cm from the angel.
[2024-01-11 02:27] LABS: Anion Gap 7 mmol/L
[2024-01-11 02:29] LABS: NT-Pro-B-Type Natriuretic Pept 474 pg/mL
[2024-01-11 02:31] LABS: AST 34 U/L (14-36); Alkaline Phosphatase 38 U/L (38-126); Carbon Dioxide 38 mmol/L (22-30); Magnesium 2.1 mg/dL (1.6-2.3)
--- NOTE | 2024-01-11 02:32 | ED ---
SOB HPI - General Chief Complaint: Shortness of Breath Stated Complaint: Difficulty Breathing Time Seen by Provider: 01/11/24 00:48 Source: EMS Mode of arrival: EMS Limitations: altered mental status - History of Present Illness Initial Comments: Patient is a 53-year-old woman with history of COPD and previous respiratory failure. EMS brings the patient to have treatment for worsening of her respiratory status. The patient is obtunded and not able to provide any history. MD Complaint: shortness of breath -: unknown Known History Of: COPD, HIV Treatments Prior to Arrival: oxygen, bronchodilator - Related Data Home Oxygen Therapy: Yes Home Medications Medication Instructions Recorded Confirmed Albuterol Sulfate [Albuterol 2 puff INHALATION RT-Q4H PRN 03/14/22 01/21/24 Sulfate Hfa] Bictegrav/Emtricit/Tenofov Ala 1 tab PO DAILY 08/10/23 01/21/24 [Biktarvy 50-200-25 mg Tablet] Ipratropium-Albuterol Nebulize 3 ml INHALATION RT-Q4H PRN 08/10/23 01/21/24 [Duoneb 0.5 mg-3 mg/3 ml Soln] Famotidine [Pepcid] 20 mg PO BID 09/30/23 01/21/24 Ondansetron [Zofran] 4 mg PO BID PRN 11/05/23 01/21/24 ALPRAZolam [Xanax] 0.5 mg PO BID 11/27/23 01/21/24 Diurex 2 tab PO Q4H PRN MDD 6 tabs 11/27/23 01/21/24 Fluticasone Propionate [Flonase 1 spray EA NOSTRIL DAILY PRN 11/27/23 01/21/24 Allergy Relief] Ibuprofen [Motrin Ib] 200 - 400 mg PO Q6H PRN 11/27/23 01/21/24 Simethicone [Gas-X] 125 - 250 mg PO ACHS PRN MDD 4 11/27/23 01/21/24 pills Fluticasone/Umeclidin/Vilanter 1 puff INHALATION RT-DAILY 01/04/24 01/21/24 [Trelegy Ellipta 200-62.5-25] Mirtazapine [Remeron] 15 mg PO HS 01/04/24 01/21/24 Sulfamethox-Tmp 800-160Mg [Bactrim 1 tab PO DIRECTED 01/06/24 01/21/24 DS 800-160 mg] Losartan [Cozaar] 50 mg PO DIRECTED 01/21/24 01/21/24 Nicotine 14Mg/24Hr Patch [Habitrol] 1 patch TRANSDERM DIRECTED 01/21/24 01/21/24 amLODIPine [Norvasc] 10 mg PO DIRECTED 01/21/24 01/21/24 Previous Rx's Medication Instructions Recorded Ipratropium-Albuterol Nebulize 3 ml INHALATION RT-QID #100 each 01/19/24 [Duoneb 0.5 mg-3 mg/3 ml Soln] predniSONE See Taper PO DIRECTED #30 tab 01/19/24 Budesonide-Formot 160-4.5 Mcg 2 puff INHALATION RT-BID #1 each 01/21/24 [Symbicort 160-4.5 Mcg Inhaler] Ipratropium-Albuterol Nebulize 3 ml INHALATION RT-QID each 01/21/24 [Duoneb 0.5 mg-3 mg/3 ml Soln] Allergies Allergy/AdvReac Type Severity Reaction Status Date / Time Penicillins Allergy Anaphylaxis Verified 01/21/24 08:30 Milk Containing Products AdvReac Nausea & Verified 01/21/24 08:30 (Dairy) Vomiting & Diarrhea Review of Systems ROS Statement: Those systems with pertinent positive or pertinent negative responses have been documented in the HPI. ROS Other: All systems not noted in ROS Statement are negative. Limitations: ROS unobtainable due to patients medical condition Past Medical History Past Medical History: Asthma, Blood Disorder, COPD, CVA/TIA Additional Past Medical History / Comment(s): hiv History of Any Multi-Drug Resistant Organisms: None Reported Past Surgical History: No Surgical Hx Reported Additional Past Surgical History / Comment(s): peg and tracheostomy reversal 2023 Past Anesthesia/Blood Transfusion Reactions: No Reported Reaction Past Psychological History: Anxiety, Depression, Panic Disorder Smoking Status: Former smoker Past Alcohol Use History: None Reported, Occasional Past Drug Use History: None Reported - Past Family History Mother History Unknown: Yes General Exam Limitations: altered mental status General appearance: obtunded, in distress Head exam: Present: atraumatic, normocephalic Eye exam: Present: normal appearance, PERRL. Absent: scleral icterus, conjunctival injection ENT exam: Present: normal oropharynx Neck exam: Present: normal inspection. Absent: tenderness, meningismus Respiratory exam: Present: respiratory distress, wheezes, accessory muscle use, decreased breath sounds, prolonged expiratory Cardiovascular Exam: Present: normal rhythm, tachycardia. Absent: systolic murmur, diastolic murmur, rubs, gallop GI/Abdominal exam: Present: soft. Absent: distended, tenderness, guarding, rebound, rigid, mass Extremities exam: Present: normal inspection, normal capillary refill. Absent: pedal edema, calf tenderness Back exam: Present: normal inspection. Absent: CVA tenderness (R), CVA tenderness (L), vertebral tenderness Neurological exam: Present: altered, reflexes normal Skin exam: Present: warm, dry, intact, normal color. Absent: rash Course Vital Signs 01/11/24 01/11/24 01/11/24 00:40 00:45 01:00 Temperature 96.9 F L Pulse Rate 104 H 149 H Respiratory 24 24 20 Rate Blood Pressure 235/169 230/120 O2 Sat by Pulse 98 97 Oximetry Fraction of Inspired Oxygen (FIO2) 01/11/24 01/11/24 01/11/24 01:21 01:30 01:55 Temperature Pulse Rate 138 H 133 H Respiratory 20 20 Rate Blood Pressure 110/81 157/117 O2 Sat by Pulse 91 L 92 L Oximetry Fraction of 100 Inspired Oxygen (FIO2) 01/11/24 01/11/24 01/11/24 02:30 02:46 02:49 Temperature Pulse Rate 133 H 128 H Respiratory 20 Rate Blood Pressure 134/103 O2 Sat by Pulse 99 Oximetry Fraction of 40 Inspired Oxygen (FIO2) 01/11/24 01/11/24 01/11/24 03:30 04:00 04:35 Temperature Pulse Rate 124 H 112 H 100 Respiratory 28 H 28 H 28 H Rate Blood Pressure 98/71 90/69 90/67 O2 Sat by Pulse 100 100 100 Oximetry Fraction of Inspired Oxygen (FIO2) 01/11/24 01/11/24 01/11/24 05:02 05:35 06:05 Temperature 98.1 F Pulse Rate 98 96 96 Respiratory 28 H 28 H 28 H Rate Blood Pressure 91/69 89/69 88/69 O2 Sat by Pulse 100 100 100 Oximetry Fraction of Inspired Oxygen (FIO2) 01/11/24 01/11/24 01/11/24 06:33 07:28 08:16 Temperature 98.1 F 98.1 F Pulse Rate 93 92 95 Respiratory 28 H 18 Rate Blood Pressure 100/76 129/92 O2 Sat by Pulse 98 99 Oximetry Fraction of Inspired Oxygen (FIO2) 01/11/24 01/11/24 01/11/24 08:18 08:26 08:27 Temperature Pulse Rate 93 93 Respiratory Rate Blood Pressure O2 Sat by Pulse Oximetry Fraction of 40 Inspired Oxygen (FIO2) 01/11/24 01/11/24 01/11/24 08:39 08:41 08:51 Temperature 98.4 F Pulse Rate 94 96 Respiratory 16 Rate Blood Pressure 105/73 O2 Sat by Pulse 997 H Oximetry Fraction of 35 Inspired Oxygen (FIO2) 01/11/24 01/11/24 01/11/24 09:04 10:00 10:45 Temperature 98.4 F Pulse Rate 112 H 105 H Respiratory 16 18 Rate Blood Pressure 108/72 121/85 O2 Sat by Pulse 95 99 Oximetry Fraction of Inspired Oxygen (FIO2) 01/11/24 01/11/24 01/11/24 11:32 11:37 11:40 Temperature 98.4 F Pulse Rate 101 H 100 Respiratory 20 Rate Blood Pressure 104/72 O2 Sat by Pulse 99 Oximetry Fraction of 35 Inspired Oxygen (FIO2) 01/11/24 01/11/24 01/11/24 11:51 12:35 13:37 Temperature 98.6 F 98.6 F Pulse Rate 105 H 105 H 102 H Respiratory 21 18 Rate Blood Pressure 112/72 115/69 O2 Sat by Pulse 98 99 Oximetry Fraction of Inspired Oxygen (FIO2) 01/11/24 01/11/24 01/11/24 14:30 15:25 16:07 Temperature 99.0 F Pulse Rate 96 95 Respiratory 20 20 Rate Blood Pressure 107/68 107/68 O2 Sat by Pulse 98 97 Oximetry Fraction of 35 Inspired Oxygen (FIO2) 01/11/24 01/11/24 01/11/24 16:13 16:26 16:53 Temperature 99.5 F Pulse Rate 96 98 92 Respiratory 20 Rate Blood Pressure 128/85 O2 Sat by Pulse 100 Oximetry Fraction of Inspired Oxygen (FIO2) 01/11/24 01/11/24 01/11/24 18:00 18:34 18:36 Temperature Pulse Rate 92 88 Respiratory 20 Rate Blood Pressure 121/74 O2 Sat by Pulse 98 Oximetry Fraction of 35 Inspired Oxygen (FIO2) 01/11/24 01/11/24 01/11/24 18:46 18:49 19:35 Temperature 98.8 F Pulse Rate 85 82 85 Respiratory 20 Rate Blood Pressure 121/74 O2 Sat by Pulse 100 Oximetry Fraction of Inspired Oxygen (FIO2) 01/11/24 01/11/24 01/11/24 19:41 19:47 21:30 Temperature 98.2 F 98.8 F Pulse Rate 84 87 93 Respiratory 11 L 24 Rate Blood Pressure 123/86 144/91 O2 Sat by Pulse 100 97 Oximetry Fraction of Inspired Oxygen (FIO2) Procedures - [place] Protocol (Time Out) Nurse: Constantin Warner - Central Line Placement Left Femoral Consent Obtained: emergent situation Patient Placed on Monitor/Pulse Ox: Yes MD Prep: mask, gown, gloves Central Line Prep: Chlorhexidine scrub Local Anesthesia Used: Lidocaine 1% Central Line Lumen Inserted: triple Central Line Position: good blood return, all ports aspirated, flushed, capped, sutured in place with nylon Dressing Applied: Tegaderm Patient Tolerated Procedure: well Complications: none - Intubation Sedative: Etomidate Laryngoscope: Edward Size: 3 ET Tube Size: 7.5 ET Tube Uncuffed: No Tube Secured Depth (cm): 23 Tube Secured Location: lips Tube Placement Confirmation: visualized tube passing through cords, equal breath sounds bilaterally, no breath sounds over epigastrium, confirmation by capnometry Patient Tolerated Procedure: well, no complications Medical Decision Making - Medical Decision Making The patient had CT scan of the brain that I interpreted as negative for acute bony injury, acute intracranial hemorrhage, no acute mass effect. The patient had chest x-ray that I interpreted as negative for acute infiltrate. There is Hyperinflation present. Endotracheal tube and gastric tube present. Was pt. sent in by a medical professional or institution (, PA, FURNACE BUILDER, urgent care, hospital, or snf...) When possible be specific @ -[No] Did you speak to anyone other than the patient for history (EMS, parent, family, police, friend...)? What history was obtained from this source @ -EMS gave history, the patient in severe respiratory distress and not able to provide any history at all Did you review nursing and triage notes (agree or disagree)? Why? @ -[I reviewed and agree with nursing and triage notes] Were old charts reviewed (outside hosp., previous admission, EMS record, old EKG, old radiological studies, urgent care reports/EKG's, snf records)? Report findings @ -[ old charts were reviewed] Differential Diagnosis (chest pain, altered mental status, abdominal pain women, abdominal pain men, vaginal bleeding, weakness, fever, dyspnea, syncope, headache, dizziness, GI bleed, back pain, seizure, CVA, palpatations, mental health, musculoskeletal)? @ -[Differential Dyspnea: Coronary syndrome, arrhythmia, tamponade, asthma, COPD, pulmonary embolism, pneumonia, pneumothorax, pulmonary effusion, anaphylaxis, diabetic ketoacidosis, flailed chest, pulmonary contusion, diaphragmatic rupture, anemia, neuromuscular, this is not meant to be an all-inclusive list. EKG interpreted by me (3pts min.). @ -[I interpreted as above] X-rays interpreted by me (1pt min.). @ -[I interpreted as above CT interpreted by me (1pt min.). @ -[I interpreted as above U/S interpreted by me (1pt. min.). @ -[None done] What testing was considered but not performed or refused? (CT, X-rays, U/S, labs)? Why? @ -[None] What meds were considered but not given or refused? Why? @ -[None] Did you discuss the management of the patient with other professionals (professionals i.e. , PA, FURNACE BUILDER, lab, RT, psych nurse, social work coordinator, riddler operator, teacher, freedom of information officer, family caseworker)? Give summary @ -Case is discussed with the admitting physician as well as the midlevel who is on-call for the pulmonology service. The patient will be admitted and will be transferred to ICU when there is bed availability. Was smoking cessation discussed for >3mins.? @ -[No] Was critical care preformed (if so, how long)? @ -[Yes, 40 minutes Were there social determinants of health that impacted care today? How? (Homelessness, low income, unemployed, alcoholism, drug addiction, transportation, low edu. Level, literacy, decrease access to med. care, care home, rehab)? @ -[No] Was there de-escalation of care discussed even if they declined (Discuss DNR or withdrawal of care, Hospice)? DNR status @ -[No] What co-morbidities impacted this encounter? (DM, HTN, Smoking, COPD, CAD, Cancer, CVA, ARF, Chemo, Hep., AIDS, mental health diagnosis, sleep apnea, morbid obesity)? @ -COPD Was patient admitted / discharged? Hospital course, mention meds given and route, prescriptions, significant lab abnormalities, going to OR and other pertinent info. @ -As above Undiagnosed new problem with uncertain prognosis? @ -[No] Drug Therapy requiring intensive monitoring for toxicity (Heparin, Nitro, Insulin, Cardizem)? @ -[No] Were any procedures done? @ -[Endotracheal intubation, central line insertion Diagnosis/symptom? @ -[Acute respiratory failure Acute COPD exacerbation Altered mental status Acute, or Chronic, or Acute on Chronic? @ -[Acute Uncomplicated (without systemic symptoms) or Complicated (systemic symptoms)? @ -[Complicated by mental status change Side effects of treatment? @ -[No] Exacerbation, Progression, or Severe Exacerbation? @ -[Severe exacerbation of COPD Poses a threat to life or bodily function? How? (Chest pain, [place], SD, pneumonia, PE, COPD, DKA, ARF, appy, cholecystitis, CVA, Diverticulitis, Homicidal, Suicidal, threat to staff... and all critical care pts) @ -[Yes, respiratory failure will rapidly lead to - Lab Data Result diagrams: 01/18/24 04:15 01/18/24 13:13 Lab Results 01/11/24 01/11/24 01/11/24 Range/Units 01:40 01:40 01:40 WBC 9.9 (3.8-10.6) k/uL RBC 3.94 (3.80-5.40) m/uL Hgb 12.4 (11.4-16.0) gm/dL Hct 38.9 (34.0-46.0) % MCV 98.8 (80.0-100.0) fL MCH 31.4 (25.0-35.0) pg MCHC 31.8 (31.0-37.0) g/dL RDW 15.0 (11.5-15.5) % Plt Count 220 (150-450) k/uL MPV 7.4 Neutrophils % 82 % Lymphocytes % 9 % Monocytes % 7 % Eosinophils % 0 % Basophils % 1 % Neutrophils # 8.2 H (1.3-7.7) k/uL Lymphocytes # 0.9 L (1.0-4.8) k/uL Monocytes # 0.7 (0-1.0) k/uL Eosinophils # 0.0 (0-0.7) k/uL Basophils # 0.1 (0-0.2) k/uL Hypochromasia Slight PT (10.0-12.5) sec INR (<1.2) APTT (22.0-30.0) sec Sample Site ABG pH (7.35-7.45) ABG pCO2 (35-45) mmHg ABG pO2 (83-108) mmHg ABG HCO3 (21-25) mmol/L ABG Total CO2 (19-24) mmol/L ABG O2 Saturation (94-97) % ABG Base Excess mmol/L Milton Test VBG pH (7.31-7.41) VBG pCO2 (37-51) mmHg VBG HCO3 (24-28) mmol/L Hemoglobin (11.4-16.0) gm/dL FiO2 % Sodium 132 L (137-145) mmol/L Potassium 3.8 (3.5-5.1) mmol/L Chloride 87 L (98-107) mmol/L Carbon Dioxide 38 H (22-30) mmol/L Anion Gap 7 mmol/L BUN 23 H (7-17) mg/dL Creatinine 0.39 L (0.52-1.04) mg/dL Est GFR (CKD-EPI)AfAm >90 (>60 ml/min/1.73 sqM) Est GFR (CKD-EPI)NonAf >90 (>60 ml/min/1.73 sqM) Glucose 115 H (74-99) mg/dL Plasma Lactic Acid Jarad 1.4 (0.7-2.0) mmol/L Calcium 7.7 L (8.4-10.2) mg/dL Magnesium 2.1 (1.6-2.3) mg/dL Total Bilirubin 0.5 (0.2-1.3) mg/dL AST 34 (14-36) U/L ALT 31 (4-34) U/L Alkaline Phosphatase 38 (38-126) U/L Troponin I (0.000-0.034) ng/mL NT-Pro-B Natriuret Pep 474 pg/mL Total Protein 5.2 L (6.3-8.2) g/dL Albumin 3.3 L (3.5-5.0) g/dL Procalcitonin (0.02-0.50) ng/mL 01/11/24 01/11/24 01/11/24 Range/Units 01:40 01:40 01:40 WBC (3.8-10.6) k/uL RBC (3.80-5.40) m/uL Hgb (11.4-16.0) gm/dL Hct (34.0-46.0) % MCV (80.0-100.0) fL MCH (25.0-35.0) pg MCHC (31.0-37.0) g/dL RDW (11.5-15.5) % Plt Count (150-450) k/uL MPV Neutrophils % % Lymphocytes % % Monocytes % % Eosinophils % % Basophils % % Neutrophils # (1.3-7.7) k/uL Lymphocytes # (1.0-4.8) k/uL Monocytes # (0-1.0) k/uL Eosinophils # (0-0.7) k/uL Basophils # (0-0.2) k/uL Hypochromasia PT (10.0-12.5) sec INR (<1.2) APTT (22.0-30.0) sec Sample Site ABG pH (7.35-7.45) ABG pCO2 (35-45) mmHg ABG pO2 (83-108) mmHg ABG HCO3 (21-25) mmol/L ABG Total CO2 (19-24) mmol/L ABG O2 Saturation (94-97) % ABG Base Excess mmol/L Milton Test VBG pH 7.42 H (7.31-7.41) VBG pCO2 63 H (37-51) mmHg VBG HCO3 41 H (24-28) mmol/L Hemoglobin (11.4-16.0) gm/dL FiO2 % Sodium (137-145) mmol/L Potassium (3.5-5.1) mmol/L Chloride (98-107) mmol/L Carbon Dioxide (22-30) mmol/L Anion Gap mmol/L BUN (7-17) mg/dL Creatinine (0.52-1.04) mg/dL Est GFR (CKD-EPI)AfAm (>60 ml/min/1.73 sqM) Est GFR (CKD-EPI)NonAf (>60 ml/min/1.73 sqM) Glucose (74-99) mg/dL Plasma Lactic Acid Jarad (0.7-2.0) mmol/L Calcium (8.4-10.2) mg/dL Magnesium (1.6-2.3) mg/dL Total Bilirubin (0.2-1.3) mg/dL AST (14-36) U/L ALT (4-34) U/L Alkaline Phosphatase (38-126) U/L Troponin I 0.025 (0.000-0.034) ng/mL NT-Pro-B Natriuret Pep pg/mL Total Protein (6.3-8.2) g/dL Albumin (3.5-5.0) g/dL Procalcitonin 0.05 (0.02-0.50) ng/mL 01/11/24 01/11/24 Range/Units 02:34 03:10 WBC (3.8-10.6) k/uL RBC (3.80-5.40) m/uL Hgb (11.4-16.0) gm/dL Hct (34.0-46.0) % MCV (80.0-100.0) fL MCH (25.0-35.0) pg MCHC (31.0-37.0) g/dL RDW (11.5-15.5) % Plt Count (150-450) k/uL MPV Neutrophils % % Lymphocytes % % Monocytes % % Eosinophils % % Basophils % % Neutrophils # (1.3-7.7) k/uL Lymphocytes # (1.0-4.8) k/uL Monocytes # (0-1.0) k/uL Eosinophils # (0-0.7) k/uL Basophils # (0-0.2) k/uL Hypochromasia PT 10.2 (10.0-12.5) sec INR 0.9 (<1.2) APTT 21.2 L (22.0-30.0) sec Sample Site R radial ABG pH 7.28 L (7.35-7.45) ABG pCO2 87 H* (35-45) mmHg ABG pO2 >420 H (83-108) mmHg ABG HCO3 41 H* (21-25) mmol/L ABG Total CO2 43 H (19-24) mmol/L ABG O2 Saturation 100.0 H (94-97) % ABG Base Excess 10.2 mmol/L Milton Test Yes VBG pH (7.31-7.41) VBG pCO2 (37-51) mmHg VBG HCO3 (24-28) mmol/L Hemoglobin 13.2 (11.4-16.0) gm/dL FiO2 100 % Sodium (137-145) mmol/L Potassium (3.5-5.1) mmol/L Chloride (98-107) mmol/L Carbon Dioxide (22-30) mmol/L Anion Gap mmol/L BUN (7-17) mg/dL Creatinine (0.52-1.04) mg/dL Est GFR (CKD-EPI)AfAm (>60 ml/min/1.73 sqM) Est GFR (CKD-EPI)NonAf (>60 ml/min/1.73 sqM) Glucose (74-99) mg/dL Plasma Lactic Acid Jarad (0.7-2.0) mmol/L Calcium (8.4-10.2) mg/dL Magnesium (1.6-2.3) mg/dL Total Bilirubin (0.2-1.3) mg/dL AST (14-36) U/L ALT (4-34) U/L Alkaline Phosphatase (38-126) U/L Troponin I (0.000-0.034) ng/mL NT-Pro-B Natriuret Pep pg/mL Total Protein (6.3-8.2) g/dL Albumin (3.5-5.0) g/dL Procalcitonin (0.02-0.50) ng/mL - EKG Data -: EKG Interpreted by Me EKG shows normal: sinus rhythm, axis ( normal), intervals (Normal), QRS complexes (Normal), ST-T waves (Normal) Rate: tachycardia (Rate 133 bpm ) Disposition Clinical Impression: COPD (chronic obstructive pulmonary disease), Acute respiratory failure Disposition: ADMITTED IP TO THIS HOSP Condition: Fair Is patient prescribed a controlled substance at d/c from ED?: No
--- NOTE | 2024-01-11 02:36 | CT ---
EXAM: CT Head Without Intravenous Contrast CLINICAL HISTORY: ITS.REASON CT Reason: altered mental status TECHNIQUE: Axial computed tomography images of the head/brain without intravenous contrast. CTDI is 49.1 mGy and DLP is 1091 mGy-cm. This CT exam was performed using one or more of the following dose reduction techniques: automated exposure control, adjustment of the mA and/or kV according to patient size, and/or use of iterative reconstruction technique. COMPARISON: No relevant prior studies available. FINDINGS: Brain: No hemorrhage or mass effect. Ventricles: No hydrocephalus. Bones/joints: Unremarkable. Soft tissues: Unremarkable. Sinuses: No air fluid level. Mastoid air cells: Clear. IMPRESSION: No acute hemorrhage, hydrocephalus, or mass effect.
[2024-01-11 02:37] LABS: ABG Base Excess 10.2 mmol/L; ABG PH 7.28 (7.35-7.45); ABG TCO2 43 mmol/L (19-24); Allen Test Performed? Yes
[2024-01-11 02:46] LABS: ABG HCO3 41 mmol/L (21-25); ABG PCO2 87 mmHg (35-45); ABG PO2 >420 mmHg (83-108)
[2024-01-11] MEDS: SODIUM CHLORIDE 0.9% 1,000 ML IV ONE (02:46)
[2024-01-11] MEDS: IPRATROPIUM-ALBUTEROL 3 ML NEB INHALATION STA (02:50)
[2024-01-11] MEDS: AZITHROMYCIN 500 MG in SODIUM CHLORIDE 0.9% 250 ML IVPB STA (02:55)
[2024-01-11] MEDS: LORazepam 2 MG/ML INJ IM STA (02:55)
[2024-01-11 02:56] LABS: Potassium 3.8 mmol/L (3.5-5.1)
[2024-01-11] MEDS: AZITHROMYCIN 500 MG in SODIUM CHLORIDE 0.9% 250 ML IVPB ONE (03:00)
[2024-01-11] MEDS ORDERED: NALOXONE 0.4 MG/ML 1 ML VIAL IV PRN (03:42)
[2024-01-11 03:46] LABS: INR 0.9 (<1.2); Prothrombin Time 10.2 sec (10.0-12.5)
[2024-01-11 03:48] LABS: Partial Thromboplastin Time 21.2 sec (22.0-30.0)
--- NOTE | 2024-01-11 05:39 | P.CNPUL ---
History of Present Illness Consult date: 01/11/24 Requesting physician: William Zambrano Reason for consult: other (ICU management, respiratory failure) Chief complaint: Acute respiratory distress, requiring intubation in the emergency departmen History of present illness: Patient is a 53-year-old female with past medical history significant for COPD, ventilator dependent respiratory failure with previous tracheostomy and PEG tube, HIV on Biktarvy. In July, she had a prolonged stay in the intensive care unit, she was intubated and placed on the mechanical ventilator. Eventually required tracheostomy and PEG tube. Subsequently, the patient was decannulated. Has had frequent hospitalizations since then, for acute COPD exacerbation; in fact, she just was discharged yesterday for the same. She was denied for noninvasive BiPAP at home. Brought in by EMS early this morning in acute respiratory distress. I did speak to the provider, who states the patient was in severe respiratory distress. Audible wheezing. Not moving much air and was obtunded. Briefly trialed on BiPAP. She was ultimately intubated by the ER provider. Patient is currently being evaluated in in trauma bay 2. Current ventilator settings include assist-control, respiratory rate 24, tidal volume 350, FiO2 100%, PEEP of 5. ABGs done in the settings PaO2 greater than 420, pCO2 87, pH of 7.28. Rate was increased to 28. FiO2 dropped to 40%. She is no t very well sedated, fighting the ventilator. Currently, propofol is being titrated up to 50 mcg/kg/min. Peak pressures are elevated at 38, static pressure 22. Significant airway resistance. She has been started on bronchodilators. No endotracheal secretions. No reported aspiration events. Chest x-ray showing a proximal ET tube, that will have to be advanced at least 3 cm. Nasogastric tube courses below the diaphragm. No obvious focal infiltrates or pneumonia. Hyperinflation consistent with COPD. CBC unremarkable. No leukocytosis. CMP: Sodium 132, potassium 3.8, chloride 87, serum bicarb 38, BUN 23, creatinine 0.39, glucose 115. Troponin 0.025. NT proBNP 474. EKG: sinus tachycardia, rate 133 bpm, no obvious acute ischemic changes. Blood pressures remain stable. Bolused one liter normal saline following intubation. Not requiring any vasopressors. Afebrile. She will be admitted to the intensive care unit once bed available. Review of Systems ROS unobtainable: due to endotracheal tube Past Medical History Past Medical History: Asthma, Blood Disorder, COPD, CVA/TIA Additional Past Medical History / Comment(s): hiv History of Any Multi-Drug Resistant Organisms: None Reported Past Surgical History: No Surgical Hx Reported Additional Past Surgical History / Comment(s): peg and tracheostomy reversal 2023 Past Anesthesia/Blood Transfusion Reactions: No Reported Reaction Past Psychological History: Anxiety, Depression, Panic Disorder Smoking Status: Former smoker Past Alcohol Use History: None Reported, Occasional Past Drug Use History: None Reported - Past Family History Mother History Unknown: Yes Medications and Allergies Home Medications Medication Instructions Recorded Confirmed Type Albuterol Sulfate [Albuterol 2 puff PO RT-Q4H PRN 03/14/22 01/06/24 History Sulfate Hfa] Bictegrav/Emtricit/Tenofov Ala 1 tab PO DAILY 08/10/23 01/06/24 History [Biktarvy 50-200-25 mg Tablet] Ipratropium-Albuterol Nebulize 3 ml INHALATION RT-Q4H PRN 08/10/23 01/06/24 History [Duoneb 0.5 mg-3 mg/3 ml Soln] Famotidine [Pepcid] 20 mg PO BID 09/30/23 01/06/24 History Ondansetron [Zofran] 4 mg PO BID PRN 11/05/23 01/06/24 History ALPRAZolam [Xanax] 0.5 mg PO BID 11/27/23 01/06/24 History Diurex 2 tab PO Q4H PRN MDD 6 tabs 11/27/23 01/06/24 History Fluticasone Propionate [Flonase 1 spray EA NOSTRIL DAILY PRN 11/27/23 01/06/24 History Allergy Relief] Ibuprofen [Motrin Ib] 200 - 400 mg PO Q6H PRN 11/27/23 01/06/24 History Simethicone [Gas-X] 125 - 250 mg PO ACHS PRN MDD 4 11/27/23 01/06/24 History pills Fluticasone/Umeclidin/Vilanter 1 puff INHALATION RT-DAILY 01/04/24 01/06/24 History [Trelegy Ellipta 200-62.5-25] Mirtazapine [Remeron] 15 mg PO HS 01/04/24 01/06/24 History Sulfamethox-Tmp 800-160Mg [Bactrim 1 tab PO DIRECTED 01/06/24 01/06/24 History DS 800-160 mg] predniSONE [Deltasone] 40 mg PO DIRECTED #15 tab 01/10/24 Rx Allergies Allergy/AdvReac Type Severity Reaction Status Date / Time Penicillins Allergy Anaphylaxis Verified 01/06/24 11:07 Milk Containing Products AdvReac Nausea & Verified 01/06/24 11:07 (Dairy) Vomiting & Diarrhea Physical Exam Vitals: Vital Signs Temp Pulse Resp BP Pulse Ox FiO2 01/11/24 05:02 98.1 F 98 28 H 91/69 100 01/11/24 04:35 100 28 H 90/67 100 01/11/24 04:00 112 H 28 H 90/69 100 01/11/24 03:30 124 H 28 H 98/71 100 01/11/24 02:49 128 H 01/11/24 02:46 40 01/11/24 02:30 133 H 20 134/103 99 01/11/24 01:55 133 H 20 157/117 92 L 01/11/24 01:30 138 H 20 110/81 91 L 01/11/24 01:21 100 01/11/24 01:19 100 01/11/24 01:00 149 H 20 230/120 97 01/11/24 00:45 24 01/11/24 00:40 96.9 F L 104 H 24 235/169 98 Intake and Output 01/10/24 01/10/24 01/11/24 14:59 22:59 06:59 Intake Total 37.499 Balance 37.499 Intake: Intake, IV Titration 37.499 Amount propofoL 1,000 mg In 37.499 Empty Bag 1 bag @ 10 MCG/ KG/MIN 3.81 mls/hr IV . Q24H [facility] Rx#:[id number] Other: Weight 63.503 kg GENERAL EXAM: Sedated, 53-year-old female, intubated to the mechanical ventilator, coughing and gagging, asynchronous with current settings HEAD: Normocephalic and atraumatic EYES: Normal reaction of pupils, equal size. NOSE: Clear with pink turbinates. THROAT: No erythema or exudates. NECK: No masses, no JVD. CHEST: No chest wall deformity. LUNGS: Equal air entry with markedly diminished lung sounds throughout. Intubated to the mechanical ventilator. Significant airway resistance noted. CVS: S1 and S2 normal with no audible murmur, regular rhythm. No extra heart sounds. Tachycardic ABDOMEN: No hepatosplenomegaly, active bowel sounds, no guarding or rigidity. SPINE: No scoliosis or deformity SKIN: No rashes CENTRAL NERVOUS SYSTEM: No focal deficits, tone is normal in all 4 extremities. EXTREMITIES: There is no peripheral edema, clubbing, or cyanosis. Peripheral pulses are intact. Results - Laboratory Findings CBC and BMP: 01/11/24 01:40 01/11/24 01:40 ABG ABG pH 7.28 (7.35-7.45) L 01/11/24 02:34 ABG pCO2 87 mmHg (35-45) H* 01/11/24 02:34 ABG pO2 >420 mmHg (83-108) H 01/11/24 02:34 ABG O2 Saturation 100.0 % (94-97) H 01/11/24 02:34 PT/INR, D-dimer PT 10.2 sec (10.0-12.5) 01/11/24 03:10 INR 0.9 (<1.2) 01/11/24 03:10 Abnormal lab findings: Abnormal Labs 01/11/24 01/11/24 01/11/24 01:40 01:40 01:40 Neutrophils # 8.2 H Lymphocytes # 0.9 L APTT ABG pH ABG pCO2 ABG pO2 ABG HCO3 ABG Total CO2 ABG O2 Saturation VBG pH 7.42 H VBG pCO2 63 H VBG HCO3 41 H Sodium 132 L Chloride 87 L Carbon Dioxide 38 H BUN 23 H Creatinine 0.39 L Glucose 115 H Calcium 7.7 L Total Protein 5.2 L Albumin 3.3 L 01/11/24 01/11/24 02:34 03:10 Neutrophils # Lymphocytes # APTT 21.2 L ABG pH 7.28 L ABG pCO2 87 H* ABG pO2 >420 H ABG HCO3 41 H* ABG Total CO2 43 H ABG O2 Saturation 100.0 H VBG pH VBG pCO2 VBG HCO3 Sodium Chloride Carbon Dioxide BUN Creatinine Glucose Calcium Total Protein Albumin - Diagnostic Findings Chest x-ray: image reviewed Assessment and Plan Assessment: Acute exacerbation of severe end-stage COPD, requiring intubation to mechanical ventilator. Chest x-ray does not show any focal infiltrates or acute cardiopulmonary process. Hyperinflation consistent with COPD. Acute on chronic hypoxemic and hypercapnic respiratory failure, secondary to above History of ventilator dependent respiratory failure with previous tracheostomy and PEG tube insertion status post decannulation Very severe underlying COPD with an FEV1 22% of predicted Former tobacco dependence Acquired immunodeficiency syndrome, maintained on Biktarvy, most recent CD4 count 83 History of left upper lobe lung nodule, previously measuring 9 mm in size, being monitored on outpatient basis Plan: Patient reportedly in acute respiratory distress on presentation to the emergency department. Patient was intubated by the ER provider. Initial ABG noted. Continue on mechanical ventilator, increased rate to 28, reduce FiO2 to 40%. Titrating up on propofol for adequate sedation. Patient is poorly sedated at this time, fighting and gagging on endotracheal tube. Will add adjunct sedatives if necessary. Ventilator order set added. Initial CXR demonstrated the ET tube quite proximal, will repeat CXR and advance if needed. Currently ET tube is secured at 22 CM at the lip. Start combination of bronchodilators, formoterol inhalation, budesonide inhalation, and IV Solu-Medrol 60 mg every 6hr Empiric antibiotics added in the emergency department Blood and sputum cultures to be collected. Central line access established by ER provider. DVT prophylaxis: Subcutaneous heparin GI prophylaxis: Protonix Prognosis is guarded. Family will have to be updated, only person present at bedside is a friend. She is going to be admitted to the intensive care unit once bed available. I have personally seen and examined the patient, performed the documentation and the assessment and plan as written. Number of minutes spent on the visit:20 Time with Patient: Greater than 30
[2024-01-11] MEDS: SODIUM CHLORIDE 0.9% 1,000 ML IV SCH (06:13)
[2024-01-11] MEDS: methylPREDNISolone SOD SUCCI 125 MG/2 ML VIAL IV SCH (06:16)
[2024-01-11] MEDS: IPRATROPIUM-ALBUTEROL 3 ML NEB INHALATION SCH (06:31)
[2024-01-11] MEDS ORDERED: ACETAMINOPHEN SUPPOSITORY 650 MG SUPP RECTAL PRN (08:00)
[2024-01-11] MEDS ORDERED: ARTIFICIAL TEARS OINTMENT 3.5 GM TUBE BOTH EYES PRN (08:00)
[2024-01-11] MEDS ORDERED: ARTIFICIAL TEARS-HYPROMELLOSE DROPS 15 ML BTL BOTH EYES PRN (08:00)
[2024-01-11] MEDS: FORMOTEROL FUMARATE 20 MCG/2 ML NEBU INHALATION SCH (08:13)
[2024-01-11] MEDS: BUDESONIDE 1 MG/2 ML NEBU INHALATION SCH (08:13)
[2024-01-11] MEDS: HEPARIN SODIUM,PORCINE 5,000 UNIT/ML 1 ML VIAL SQ SCH (08:57)
[2024-01-11] MEDS: PANTOPRAZOLE 40 MG/10 ML VIAL IV SCH (08:57)
[2024-01-11] MEDS: NON FORMULARY DRUG (Bictegrav/Emtricit/Tenofov Ala [Biktarvy 50-200-25 Mg Tablet] 1 EACH T PO SCH (08:59)
--- NOTE | 2024-01-11 09:27 | XR ---
EXAMINATION TYPE: XR chest 1V portable DATE OF EXAM: 01/11/2024 HISTORY: Shortness of breath. COMPARISON: Earlier in the day TECHNIQUE: Single view of the chest is submitted. FINDINGS: Demonstrated are scattered senescent parenchymal change. Endotracheal tube is well-positioned. NG tu be is seen coursing into the stomach. There is no evidence for focal infiltrate. The heart is stable. Hilar and mediastinal structures are within normal limits. Degenerative changes are seen of the dorsal spine. IMPRESSION: 1. Chronic changes without evidence for acute pulmonary disease.
[2024-01-11 09:29] LABS: ABG Base Excess 9.9 mmol/L; ABG HCO3 38 mmol/L (21-25); ABG Oxygen Saturation 98.6 % (94-97); ABG PH 7.33 (7.35-7.45); ABG PO2 112 mmHg (83-108); ABG TCO2 41 mmol/L (19-24); Allen Test Performed? Yes
[2024-01-11 09:33] LABS: ABG PCO2 72 mmHg (35-45)
[2024-01-11] MEDS: CHLORHEXIDINE GLUCONATE 15 ML CUP MUCOUS MEM SCH (12:37)
[2024-01-11 14:36] LABS: Amphetamine Screen,Urine Not Detected (NotDetected); Barbiturate Screen,Urine Not Detected (NotDetected); Benzodiazepines Screen,Urine Detected (NotDetected); Cocaine Screen,Urine Not Detected (NotDetected); Methadone Screen, Urine Not Detected (NotDetected); Opiate Screen,Urine Detected (NotDetected); Oxycodone Screen, Urine Not Detected (NotDetected); Phencyclidine Screen,Urine Not Detected (NotDetected); Tricyclic Antidepressant,Urine Not Detected (NotDetected); Urn Cannabinoid Scrn Not Detected (NotDetected)
--- NOTE | 2024-01-11 15:59 | P.HPIM ---
History of Present Illness H&P Date: 01/11/24 This is a patient 53-year-old female who was just discharged yesterday as she was adamant about going home and continued to await for authorization to have BiPAP in the home and ultimately got home having worsening shortness of breath and was brought back here via EMS having worsening respiratory status and respiratory distress. Patient follows with Dr. Harvey in the outpatient setting with a past medical history of COPD, chronic respiratory failure, HIV. Patient is a former smoker and also known to have alcohol abuse history. Labs reviewed on admission with a white count of 9.9, hemoglobin 12.4, platelets 220, ABG showed a pH of 7.33, pCO2 is 72, pO2 112, bicarb 38, total CO2 41 and oxygen saturation 98.6. Sodium level mildly low at 132 with a potassium of 3.8, chloride is low at 87 carbon dioxide 38, BUN 23 with a creatinine of 0.39. Lactic acid not elevated at 1.4, calcium is 7.7 and magnesium 2.1. Patient did have a BNP drawn which was 474 and troponin was 0.025. Drug screening also detected benzos and opiates as patient was just recently hospitalized and discharged. Patient x-ray shows chronic changes without evidence of acute pulmonary disease. Patient was obtunded at the time of ED admission and CT brain was performed showing no acute hemorrhage, hydrocephalus or mass effect, EKG showed sinus tachycardia and patient was admitted for COPD exacerbation and also requiring mechanical ventilation and currently awaiting an ICU bed. REVIEW OF SYSTEMS: Unable to assess as patient has been intubated and is on propofol for sedation Active Medications Acetaminophen (Acetaminophen Suppository 650 Mg Supp) 650 mg RECTAL Q4HR PRN PRN Reason: Fever And/ Or Mild Pain Albuterol/Ipratropium (Ipratropium-Albuterol 3 Ml Neb) 3 ml INHALATION RT-Q4H [facility] Last Admin: 01/11/24 11:40 Dose: 3 ml Artificial Tears (Artificial Tears-Hypromellose Drops 15 Ml Btl) 1 drops BOTH EYES Q4HR PRN PRN Reason: Dry Eye(s) Budesonide (Budesonide 1 Mg/2 Ml Nebu) 1 mg INHALATION RT-BID [facility] Last Admin: 01/11/24 08:13 Dose: 1 mg Chlorhexidine Gluconate (Chlorhexidine Gluconate 15 Ml Cup) 15 ml MUCOUS MEM BID [facility] Last Admin: 01/11/24 12:37 Dose: 15 ml Formoterol Fumarate (Formoterol Fumarate 20 Mcg/2 Ml Nebu) 20 mcg INHALATION RT-BID [facility] Last Admin: 01/11/24 08:13 Dose: 20 mcg Heparin Sodium (Porcine) (Heparin Sodium,Porcine 5,000 Unit/Ml 1 Ml Vial) 5,000 unit SQ Q12HR [facility] Last Admin: 01/11/24 08:57 Dose: 5,000 unit Propofol 1,000 mg/ IV Solution 100 mls @ 5.715 mls/hr IV .[id number] [facility]; Protocol Last Admin: 01/11/24 11:36 Dose: 50 mcg/kg/min, 19.051 mls/hr Ceftriaxone Sodium 1 gm/ (Sodium Chloride) 50 mls @ 100 mls/hr IVPB Q24HR [facility]; Protocol Last Admin: 01/11/24 08:55 Dose: 100 mls/hr Sodium Chloride (Saline 0.9%) 1,000 mls @ 75 mls/hr IV .[id number] [facility] Last Admin: 01/11/24 06:13 Dose: 75 mls/hr Methylprednisolone Sodium Succinate (Methylprednisolone Sod Succi 125 Mg/2 Ml Vial) 60 mg IV Q6HR [facility] Last Admin: 01/11/24 12:37 Dose: 60 mg Mirtazapine (Mirtazapine 15 Mg Tab) 15 mg PO HS [facility] Multi-Ingred Cream/Lotion/Oil/Oint (Artificial Tears Ointment 3.5 Gm Tube) 1 applic BOTH EYES Q4HR PRN PRN Reason: Dry Eye(s) Naloxone HCl (Naloxone 0.4 Mg/Ml 1 Ml Vial) 0.2 mg IV Q2M PRN PRN Reason: Opioid Reversal Non-Formulary Medication (Bictegrav/Emtricit/Tenofov Ala [Biktarvy 50-200-25 Mg Tablet]) 1 tab PO DAILY [facility] Last Admin: 01/11/24 10:59 Dose: 1 tab Pantoprazole Sodium (Pantoprazole 40 Mg/10 Ml Vial) 40 mg IV DAILY [facility] Last Admin: 01/11/24 08:57 Dose: 40 mg PHYSICAL EXAMINATION: GENERAL: The patient is a 53-year-old female who appears elderly, ill appearing, currently on mechanical ventilation with an FiO2 of 35% PEEP is 5, sedated and maintained on propofol HEENT: Pupils are round and equally reacting to light. EOMI. No scleral icterus. No conjunctival pallor. Normocephalic, atraumatic. No pharyngeal erythema. No thyromegaly. CARDIOVASCULAR: S1 and S2 muffled, mildly tachycardic PULMONARY: Severely diminished breath sounds bilaterally with coarse breath sound and scattered rhonchi noted, no accessory muscle use noted ABDOMEN: Soft, thin, nontender, nondistended, normoactive bowel sounds. No palpable organomegaly. MUSCULOSKELETAL: No joint swelling or deformity. EXTREMITIES: No cyanosis, clubbing, or pedal edema. NEUROLOGICAL: Gross neurological examination did not reveal any focal deficits. Unable to completely assess as patient is sedated on propofol SKIN: No rashes. Assessment: Acute on chronic hypercapnic hypoxemic respiratory failure secondary to COPD exacerbation with acute respiratory failure and being obtunded requiring mechanical ventilation on 01/11/2024 History of severe COPD and chronically wears 4 L outpatient, FEV1 is 22% HIV on Biktarvy History of depression History of CVA/TIA History of anxiety/Depression/Panic disorder Continued ongoing nicotine dependence Hx of prolonged intubation requiring trach/peg status post reversal. History of alcoholism GI prophylaxis DVT prophylaxis Full Code Plan: Patient was recently hospitalized and has had multiple hospitalizations regarding respiratory failure and COPD exacerbation and was adamant about leaving yesterday. Pulmonary was following attempting to have the patient qualified for BiPAP at home as it is felt she would highly benefit from this and possibly minimize frequent rehospitalizations although did not qualify. Patient chronically wears 4 L outpatient and went home and was noted to have severe respiratory distress and brought back to the hospital. Patient was obtunded and minimally responsive and ER physician decided to intubate the patient. Patient is currently maintained on mechanical ventilation with an FiO2 of 35% and PEEP is 5. Patient awaiting a bed in the ICU Patient is maintained on [id number] DuoNebs along with IV steroids and empiric antibiotics per pulmonary Procalcitonin is ordered and pending, virology testing including influenza, RSV, COVID are all negative Will follow-up with repeat labs in the a.m. and replace electrolytes per protoco l. Sodium slightly low at 132 and potassium is 3.8, magnesium 2.1. Lactic acid was negative at 1.4 BNP minimally elevated at 474 and does not appear volume loaded Overall prognosis is extremely guarded given her severe COPD and HIV history Again patient will be going to the ICU once a bed is available. The impression and plan of care has been dictated by Deirdre Ashley Nurse Pract itioner as directed. Dr. Dann MD I have performed a history and physical examination and medical decision making of this patient, discussed the same with the dictator, and agree with the dictators assessment and plan as written, documented as a scribe. Based on total visit time, I have performed more than 50% of this visit. Past Medical History Past Medical History: Asthma, Blood Disorder, COPD, CVA/TIA Additional Past Medical History / Comment(s): hiv History of Any Multi-Drug Resistant Organisms: None Reported Past Surgical History: No Surgical Hx Reported Additional Past Surgical History / Comment(s): peg and tracheostomy reversal 2023 Past Anesthesia/Blood Transfusion Reactions: No Reported Reaction Past Psychological History: Anxiety, Depression, Panic Disorder Smoking Status: Former smoker Past Alcohol Use History: None Reported, Occasional Past Drug Use History: None Reported - Past Family History Mother History Unknown: Yes Medications and Allergies Home Medications Medication Instructions Recorded Confirmed Type Albuterol Sulfate [Albuterol 2 puff PO RT-Q4H PRN 03/14/22 01/11/24 History Sulfate Hfa] Bictegrav/Emtricit/Tenofov Ala 1 tab PO DAILY 08/10/23 01/11/24 History [Biktarvy 50-200-25 mg Tablet] Ipratropium-Albuterol Nebulize 3 ml INHALATION RT-Q4H PRN 08/10/23 01/11/24 History [Duoneb 0.5 mg-3 mg/3 ml Soln] Famotidine [Pepcid] 20 mg PO BID 09/30/23 01/11/24 History Ondansetron [Zofran] 4 mg PO BID PRN 11/05/23 01/11/24 History ALPRAZolam [Xanax] 0.5 mg PO BID 11/27/23 01/11/24 History Diurex 2 tab PO Q4H PRN MDD 6 tabs 11/27/23 01/11/24 History Fluticasone Propionate [Flonase 1 spray EA NOSTRIL DAILY PRN 11/27/23 01/11/24 History Allergy Relief] Ibuprofen [Motrin Ib] 200 - 400 mg PO Q6H PRN 11/27/23 01/11/24 History Simethicone [Gas-X] 125 - 250 mg PO ACHS PRN MDD 4 11/27/23 01/11/24 History pills Fluticasone/Umeclidin/Vilanter 1 puff INHALATION RT-DAILY 01/04/24 01/11/24 History [Trelegy Ellipta 200-62.5-25] Mirtazapine [Remeron] 15 mg PO HS 01/04/24 01/11/24 History Sulfamethox-Tmp 800-160Mg [Bactrim 1 tab PO DIRECTED 01/06/24 01/11/24 History DS 800-160 mg] predniSONE [Deltasone] See Taper PO DIRECTED 01/11/24 01/11/24 History Allergies Allergy/AdvReac Type Severity Reaction Status Date / Time Penicillins Allergy Anaphylaxis Verified 01/11/24 09:52 Milk Containing Products AdvReac Nausea & Verified 01/11/24 09:52 (Dairy) Vomiting & Diarrhea Physical Exam Vitals: Vital Signs Temp Pulse Resp BP Pulse Ox FiO2 01/11/24 09:04 16 01/11/24 08:51 98.4 F 96 16 105/73 997 H 01/11/24 08:41 35 01/11/24 08:39 94 01/11/24 08:27 93 01/11/24 08:26 93 01/11/24 08:18 40 01/11/24 08:16 95 01/11/24 07:28 98.1 F 92 18 129/92 99 01/11/24 06:33 98.1 F 93 28 H 100/76 98 01/11/24 06:05 96 28 H 88/69 100 01/11/24 05:35 96 28 H 89/69 100 01/11/24 05:02 98.1 F 98 28 H 91/69 100 01/11/24 04:35 100 28 H 90/67 100 01/11/24 04:00 112 H 28 H 90/69 100 01/11/24 03:30 124 H 28 H 98/71 100 01/11/24 02:49 128 H 01/11/24 02:46 40 01/11/24 02:30 133 H 20 134/103 99 01/11/24 01:55 133 H 20 157/117 92 L 01/11/24 01:30 138 H 20 110/81 91 L 01/11/24 01:21 100 01/11/24 01:19 100 01/11/24 01:00 149 H 20 230/120 97 01/11/24 00:45 24 01/11/24 00:40 96.9 F L 104 H 24 235/169 98 Intake and Output 01/10/24 01/11/24 01/11/24 22:59 06:59 14:59 Intake Total 70.648 23.433 Output Total 220 Balance 70.648 -196.567 Intake: Intake, IV Titration 70.648 23.433 Amount propofoL 1,000 mg In 70.648 23.433 Empty Bag 1 bag @ 10 MCG/ KG/MIN 3.81 mls/hr IV . Q24H [facility] Rx#:[id number] Output: Urine 220 Uretheral (Ortiz) 220 Other: Weight 63.503 kg Results CBC & Chem 7: 01/11/24 01:40 01/11/24 01:40 Labs: Abnormal Lab Results - Last 24 Hours (Table) 01/11/24 01/11/24 01/11/24 Range/Units 01:40 01:40 01:40 Neutrophils # 8.2 H (1.3-7.7) k/uL Lymphocytes # 0.9 L (1.0-4.8) k/uL APTT (22.0-30.0) sec ABG pH (7.35-7.45) ABG pCO2 (35-45) mmHg ABG pO2 (83-108) mmHg ABG HCO3 (21-25) mmol/L ABG Total CO2 (19-24) mmol/L ABG O2 Saturation (94-97) % VBG pH 7.42 H (7.31-7.41) VBG pCO2 63 H (37-51) mmHg VBG HCO3 41 H (24-28) mmol/L Sodium 132 L (137-145) mmol/L Chloride 87 L (98-107) mmol/L Carbon Dioxide 38 H (22-30) mmol/L BUN 23 H (7-17) mg/dL Creatinine 0.39 L (0.52-1.04) mg/dL Glucose 115 H (74-99) mg/dL Calcium 7.7 L (8.4-10.2) mg/dL Total Protein 5.2 L (6.3-8.2) g/dL Albumin 3.3 L (3.5-5.0) g/dL 01/11/24 01/11/24 Range/Units 02:34 03:10 Neutrophils # (1.3-7.7) k/uL Lymphocytes # (1.0-4.8) k/uL APTT 21.2 L (22.0-30.0) sec ABG pH 7.28 L (7.35-7.45) ABG pCO2 87 H* (35-45) mmHg ABG pO2 >420 H (83-108) mmHg ABG HCO3 41 H* (21-25) mmol/L ABG Total CO2 43 H (19-24) mmol/L ABG O2 Saturation 100.0 H (94-97) % VBG pH (7.31-7.41) VBG pCO2 (37-51) mmHg VBG HCO3 (24-28) mmol/L Sodium (137-145) mmol/L Chloride (98-107) mmol/L Carbon Dioxide (22-30) mmol/L BUN (7-17) mg/dL Creatinine (0.52-1.04) mg/dL Glucose (74-99) mg/dL Calcium (8.4-10.2) mg/dL Total Protein (6.3-8.2) g/dL Albumin (3.5-5.0) g/dL
[2024-01-11 17:03] LABS: Glucose,Whole Blood 134 mg/dL (70-110)
[2024-01-11 21:44] LABS: Glucose,Whole Blood 144 mg/dL (70-110)
[2024-01-11] MEDS: MIRTAZAPINE 15 MG TAB PO SCH (21:58)
[2024-01-12 05:53] LABS: ABG Base Excess 14.2 mmol/L; ABG Oxygen Saturation 97.8 % (94-97); ABG PCO2 60 mmHg (35-45); ABG PH 7.44 (7.35-7.45); ABG PO2 88 mmHg (83-108); ABG TCO2 43 mmol/L (19-24); Allen Test Performed? Yes
[2024-01-12 05:55] LABS: ABG HCO3 41 mmol/L (21-25)
[2024-01-12 06:09] LABS: African American GFR (CKD) >90 (>60 ml/min/1.73 sqM); Blood Urea Nitrogen 20 mg/dL (7-17); Calcium 8.5 mg/dL (8.4-10.2); Chloride 98 mmol/L (98-107); Glucose 138 mg/dL (74-99); Non-African American GFR(CKD) >90 (>60 ml/min/1.73 sqM); Sodium 135 mmol/L (137-145)
[2024-01-12 06:15] LABS: Anion Gap 0 mmol/L
[2024-01-12 06:20] LABS: Carbon Dioxide 37 mmol/L (22-30)
[2024-01-12 06:29] LABS: Basophils % (A) 0 %; Eosinophils % (A) 0 %; HCT 36.9 % (34.0-46.0); HGB 11.9 gm/dL (11.4-16.0); Lymphocytes # (A) 0.5 k/uL (1.0-4.8); Lymphocytes % (A) 7 %; MCH 31.2 pg (25.0-35.0); MCHC 32.3 g/dL (31.0-37.0); MCV 96.8 fL (80.0-100.0); Mean Platelet Volume 7.5; Monocytes # (A) 0.2 k/uL (0-1.0); Monocytes % (A) 3 %; Neutrophils # (A) 6.1 k/uL (1.3-7.7); Neutrophils % (A) 89 %; Platelet Count 243 k/uL (150-450); RBC 3.81 m/uL (3.80-5.40); RDW 15.1 % (11.5-15.5); WBC 6.9 k/uL (3.8-10.6)
[2024-01-12] MEDS ORDERED: VANCOMYCIN IV PER PHARMACY 1 EACH MISC MISCELLANE PRN (06:41)
--- NOTE | 2024-01-12 08:04 | XR ---
EXAMINATION TYPE: XR chest 1V portable DATE OF EXAM: 01/12/2024 COMPARISON: 01/11/2024 HISTORY: SOB, Follow Up FINDINGS: Indwelling tubes and catheters are unchanged. The lungs are clear and free of focal infiltrate. Stable appearance of the cardio-mediastinal structu res at this time. IMPRESSION: 1. Stable portable chest. Clinical correlation and follow up until resolution is recommended.
[2024-01-12] MEDS: VANCOMYCIN 1,000 MG in SODIUM CHLORIDE 0.9% 250 ML IVPB SCH (08:07)
[2024-01-12] MEDS: HYDROmorphone 0.5 MG/0.5 ML SYRINGE IVP PRN (08:31)
--- NOTE | 2024-01-12 13:10 | OP ---
OPERATIVE REPORT DATE OF SERVICE : PROCEDURE PERFORMED: Placement of right radial arterial line. PREOPERATIVE DIAGNOSIS: Acute hypoxic and hypercapnic respiratory failure. POSTOPERATIVE DIAGNOSIS: Acute hypoxic and hypercapnic respiratory failure. ANESTHESIA USED: None deployed. PROCEDURE: The right wrist was prepared in a sterile fashion. Drapes were applied. Right radial artery was palpated, easily cannulated, guidewire was placed, and a Cook catheter was inserted over the guidewire, and the guidewire was removed. Good blood flow, good waveform noted, no complications. Line was secured using 3.0 silk sutures. MMODL / IJN: [id number] /
--- NOTE | 2024-01-12 13:49 | P.PN ---
Subjective Progress Note Date: 01/12/24 Principal diagnosis: Acute on chronic hypoxic and hypercapnic respiratory failure secondary to acute exacerbation of severe COPD Patient is a 53-year-old female with past medical history significant for COPD, ventilator dependent respiratory failure with previous tracheostomy and PEG tube, HIV on Biktarvy. In July, she had a prolonged stay in the intensive care unit, she was intubated and placed on the mechanical ventilator. Eventually required tracheostomy and PEG tube. Subsequently, the patient was decannulated. Has had frequent hospitalizations since then, for acute COPD exacerbation; in fact, she just was discharged yesterday for the same. She was denied for noninvasive BiPAP at home. Brought in by EMS early this morning in acute respiratory distress. I did speak to the provider, who states the patient was in severe respiratory distress. Audible wheezing. Not moving much air and was obtunded. Briefly trialed on BiPAP. She was ultimately intubated by the ER provider. Patient is currently being evaluated in in trauma bay 2. Current ventilator settings include assist-control, respiratory rate 24, tidal volume 350, FiO2 100%, PEEP of 5. ABGs done in the settings PaO2 greater than 420, pCO2 87, pH of 7.28. Rate was increased to 28. FiO2 dropped to 40%. She is not very well sedated, fighting the ventilator. Currently, propofol is being titrated up to 50 mcg/kg/min. Peak pressures are elevated at 38, static pressure 22. Significant airway resistance. She has been started on bronchodilators. No endotracheal secretions. No reported aspiration events. Chest x-ray showing a proximal ET tube, that will have to be advanced at least 3 cm. Nasogastric tube courses below the diaphragm. No obvious focal infiltrates or pneumonia. Hyperinflation consistent with COPD. CBC unremarkable. No leukocytosis. CMP: Sodium 132, potassium 3.8, chloride 87, serum bicarb 38, BUN 23, creatinine 0.39, glucose 115. Troponin 0.025. NT proBNP 474. EKG: sinus tachycardia, rate 133 bpm, no obvious acute ischemic changes. Blood pressures remain stable. Bolused one liter normal saline following intubation. Not requiring any vasopressors. Afebrile. She will be admitted to the intensive care unit once bed available. Seen and examined today on 01/12/2024, patient is in the ICU, intubated and mechanically ventilated, I saw her yesterday on consultation when she was in the ER. Patient is now on assist-control rate of 20, tidal volume 325 FiO2 35% and PEEP of 5 ABG showed a pO2 of 88 pCO2 60, pH of 7.44, hence no changes were made in her ventilator settings. Remain on the same vent settings. Patient is requiring propofol at 70 mcg/kg/min, she is also now on Rocephin and vancomycin. Patient did have positive blood cultures, however uncertain whether this is a contamination or true MRSA infection hence empirically she is on Rocephin and vancomycin for now. Chest x-ray showed COPD, no evidence of infiltrates in both lungs. WBC count is 6.9 hemoglobin 11.9 basic metabolic profile is normal renal profile is normal blood cultures preliminary report gram-positive cocci in clusters, could be a contamination, final identification is pending patient remains on bronchodilators and steroids, patient remains on GI DVT prophylaxis and she is on enteral nutrition/for nutritional support clearly the patient is not quite ready to be weaned and extubated considering her underlying COPD will be extremely difficult and a challenge to extubate this patient. In the past patient required tracheostomy and PEG tube placement Objective - Vital Signs Vital signs: Vital Signs Temp 98.5 F 01/12/24 12:06 Pulse 85 01/12/24 13:00 Resp 20 01/12/24 13:00 BP 118/80 01/12/24 13:00 Pulse Ox 99 01/12/24 13:00 FiO2 35 01/12/24 12:03 Intake & Output 01/11/24 01/12/24 01/12/24 18:59 06:59 18:59 Intake Total 216.593 876.632 672.643 Output Total 620 525 525 Balance -403.407 351.632 147.643 Weight 58.2 kg Intake: IV 600 525 Sodium Chloride 0.9% 1, 600 525 000 ml @ 75 mls/hr IV . [id number] [facility] Rx#:[id number] Intake, IV Titration 216.593 276.632 147.643 Amount propofoL 1,000 mg In 23.433 Empty Bag 1 bag @ 10 MCG/ KG/MIN 3.81 mls/hr IV . Q24H [facility] Rx#:[id number] propofoL 1,000 mg In 193.16 276.632 147.643 Empty Bag 1 bag @ 15 MCG/ KG/MIN 5.715 mls/hr IV . [id number] [facility] Rx#:[id number] Output: Gastric Drainage 300 Urine 620 525 225 Uretheral (Ortiz) 620 Other: Voiding Method Indwelling Catheter Indwelling Catheter ABP, PAP, CO, CI - Last Documented Arterial Blood Pressure 141/75 - Exam GENERAL EXAM: Revealed 53-year-old female intubated mechanically ventilated sedated, on propofol. Head is atraumatic, normocephalic, endotracheal tube is intact orogastric tube is intact EYES: Normal reaction of pupils, equal size. NOSE: Clear with pink turbinates. THROAT: No erythema or exudates. NECK: No masses, no JVD. CHEST: No chest wall deformity. LUNGS: Diminished breath sound bilaterally no crackles rhonchi or wheezes CVS: Distant S1-S2, no S3 gallop, no murmur ABDOMEN: No hepatosplenomegaly, active bowel sounds, no guarding or rigidity. SKIN: No rashes CENTRAL NERVOUS SYSTEM: Patient is intubated sedated, could not assess on propofol. EXTREMITIES: No clubbing edema or cyanosis. Psychiatric: Could not assess - Labs CBC & Chem 7: 01/12/24 05:21 01/12/24 05:21 Labs: Abnormal Lab Results - Last 24 Hours (Table) 01/11/24 01/11/24 01/11/24 Range/Units 11:10 17:00 21:42 Lymphocytes # (1.0-4.8) k/uL ABG pCO2 (35-45) mmHg ABG HCO3 (21-25) mmol/L ABG Total CO2 (19-24) mmol/L ABG O2 Saturation (94-97) % Hemoglobin (11.4-16.0) gm/dL Sodium (137-145) mmol/L Carbon Dioxide (22-30) mmol/L BUN (7-17) mg/dL Creatinine (0.52-1.04) mg/dL Glucose (74-99) mg/dL POC Glucose (mg/dL) 134 H 144 H (70-110) mg/dL Urine Opiates Screen Detected H (NotDetected) U Benzodiazepines Scrn Detected H (NotDetected) 01/12/24 01/12/24 01/12/24 Range/Units 05:21 05:21 05:51 Lymphocytes # 0.5 L (1.0-4.8) k/uL ABG pCO2 60 H (35-45) mmHg ABG HCO3 41 H* (21-25) mmol/L ABG Total CO2 43 H (19-24) mmol/L ABG O2 Saturation 97.8 H (94-97) % Hemoglobin 11.2 L (11.4-16.0) gm/dL Sodium 135 L (137-145) mmol/L Carbon Dioxide 37 H (22-30) mmol/L BUN 20 H (7-17) mg/dL Creatinine 0.35 L (0.52-1.04) mg/dL Glucose 138 H (74-99) mg/dL POC Glucose (mg/dL) (70-110) mg/dL Urine Opiates Screen (NotDetected) U Benzodiazepines Scrn (NotDetected) Microbiology - Last 24 Hours (Table) 01/11/24 08:36 Gram Stain - Preliminary Sputum Sputum Culture - Preliminary 01/11/24 01:40 Blood Culture Gram Stain - Preliminary Blood Blood Culture - Preliminary Molecular ID Assessment and Plan Assessment: Impression: Acute on chronic hypoxic respiratory failure requiring intubation mechanical ventilation Acute exacerbation of severe COPD/end-stage Bacteremia, possible contamination, final cultures of the blood or pending, however the patient is now on vancomycin and Rocephin empirically History of ventilator dependent respiratory failure with previous tracheostomy and PEG tube insertion status post decannulation Very severe underlying COPD with an FEV1 22% of predicted Former tobacco dependence Acquired immunodeficiency syndrome, maintained on Biktarvy, most recent CD4 count 83 History of left upper lobe lung nodule, previously measuring 9 mm in size, being monitored on outpatient basis Recommendation: Continue ventilatory support Continue nutritional support Continue GI DVT prophylaxis Continue bronchodilators Patient already has a central line in place placed by the ER physician and today I placed a right radial arterial line for hemodynamic monitoring and for frequent blood draws Continue Solu-Medrol. Patient is critically ill Critical care time is over 30 minutes not including the time spent on procedures. Will continue to monitor in the ICU Daily labs x-rays ABGs Time with Patient: Greater than 30
--- NOTE | 2024-01-12 14:29 | P.PN ---
Subjective Progress Note Date: 01/12/24 This is a patient 53-year-old female who was just discharged yesterday as she was adamant about going home and continued to await for authorization to have BiPAP in the home and ultimately got home having worsening shortness of breath and was brought back here via EMS having worsening respiratory status and respiratory distress. Patient follows with Dr. Harvey in the outpatient setting with a past medical history of COPD, chronic respiratory failure, HIV. Patient is a former smoker and also known to have alcohol abuse history. Labs reviewed on admission with a white count of 9.9, hemoglobin 12.4, platelets 220, ABG showed a pH of 7.33, pCO2 is 72, pO2 112, bicarb 38, total CO2 41 and oxygen saturation 98.6. Sodium level mildly low at 132 with a potassium of 3.8, chloride is low at 87 carbon dioxide 38, BUN 23 with a creatinine of 0.39. Lactic acid not elevated at 1.4, calcium is 7.7 and magnesium 2.1. Patient did have a BNP drawn which was 474 and troponin was 0.025. Drug screening also d etected benzos and opiates as patient was just recently hospitalized and discharged. Patient x-ray shows chronic changes without evidence of acute pulmonary disease. Patient was obtunded at the time of ED admission and CT brain was performed showing no acute hemorrhage, hydrocephalus or mass effect, EKG showed sinus tachycardia and patient was admitted for COPD exacerbation and also requiring mechanical ventilation and currently awaiting an ICU bed. 01/12/2024 Patient is currently intubated and sedated in the intensive care unit. She is admitted for severe COPD. Remains on IV vancomycin and IV Rocephin there is concern for possible cultures revealing staph epi which will be repeated today. This is likely a contaminant species. Her blood counts are completely unremarkable. Sodium level of 135, 1 of 20, creatinine of 0.35, blood glucose of 130s. Her ABGs today reveal a pCO2 of 41, HCO3 of 43, total oxygen saturation of 97.8 and a pH of 7.44, pCO2 of 60. Procalcitonin level is negative at 0.05. Patient has significantly improved 131/81. REVIEW OF SYSTEMS: Unable to assess as patient has been intubated and is on propofol for sedation PHYSICAL EXAMINATION: GENERAL: The patient is a 53-year-old female who appears elderly, ill appearing, currently on mechanical ventilation with an FiO2 of 35% PEEP is 5, sedated and maintained on propofol HEENT: Pupils are round and equally reacting to light. EOMI. No scleral icterus. No conjunctival pallor. Normocephalic, atraumatic. No pharyngeal erythema. No thyromegaly. CARDIOVASCULAR: S1 and S2 muffled, mildly tachycardic PULMONARY: Severely diminished breath sounds bilaterally with coarse breath sound and scattered rhonchi noted, no accessory muscle use noted ABDOMEN: Soft, thin, nontender, nondistended, normoactive bowel sounds. No palpable organomegaly. MUSCULOSKELETAL: No joint swelling or deformity. EXTREMITIES: No cyanosis, clubbing, or pedal edema. NEUROLOGICAL: Gross neurological examination did not reveal any focal deficits. Unable to completely assess as patient is sedated on propofol SKIN: No rashes. Assessment: Acute on chronic hypercapnic hypoxemic respiratory failure secondary to COPD exacerbation with acute respiratory failure and being obtunded requiring mechanical ventilation on 01/11/2024 History of severe COPD and chronically wears 4 L outpatient, FEV1 is 22% HIV on Biktarvy History of depression History of CVA/TIA History of anxiety/Depression/Panic disorder Continued ongoing nicotine dependence Hx of prolonged intubation requiring trach/peg status post reversal. History of alcoholism GI prophylaxis DVT prophylaxis Full Code Plan: Patient was recently hospitalized and has had multiple hospitalizations regarding respiratory failure and COPD exacerbation and was adamant about leaving yesterday. Pulmonary was following attempting to have the patient qualified for BiPAP at home as it is felt she would highly benefit from this and possibly minimize frequent rehospitalizations although did not qualify. Patient chronically wears 4 L outpatient and went home and was noted to have severe respiratory distress and brought back to the hospital. Patient was obtunded and minimally responsive and ER physician decided to intubate the patient. Patient is currently maintained on mechanical ventilation with an FiO2 of 35% and PEEP is 5. Patient awaiting a bed in the ICU Patient is maintained on [id number] DuoNebs along with IV steroids and empiric antibiotics per pulmonary Overall prognosis is extremely guarded given her severe COPD and HIV history Again patient will be going to the ICU once a bed is available. The impression and plan of care has been dictated by Deirdre Ashley, Nurse Practitioner as directed. Dr. Dann MD I have performed a history and physical examination and medical decision making of this patient, discussed the same with the dictator, and agree with the dictators assessment and plan as written, documented as a scribe. Based on total visit time, I have performed more than 50% of this visit. Objective - Vital Signs Vital signs: Vital Signs Temp 98.5 F 01/12/24 08:00 Pulse 81 01/12/24 10:00 Resp 20 01/12/24 10:00 BP 108/71 01/12/24 10:00 Pulse Ox 97 01/12/24 10:00 FiO2 35 01/12/24 08:40 Intake & Output 01/11/24 01/12/24 01/12/24 18:59 06:59 18:59 Intake Total 216.593 876.632 447.643 Output Total 620 525 430 Balance -403.407 351.632 17.643 Weight 58.2 kg Intake: IV 600 300 Sodium Chloride 0.9% 1, 600 300 000 ml @ 75 mls/hr IV . [id number] [facility] Rx#:[id number] Intake, IV Titration 216.593 276.632 147.643 Amount propofoL 1,000 mg In 23.433 Empty Bag 1 bag @ 10 MCG/ KG/MIN 3.81 mls/hr IV . Q24H [facility] Rx#:[id number] propofoL 1,000 mg In 193.16 276.632 147.643 Empty Bag 1 bag @ 15 MCG/ KG/MIN 5.715 mls/hr IV . [id number] [facility] Rx#:[id number] Output: Gastric Drainage 300 Urine 620 525 130 Uretheral (Ortiz) 620 Other: Voiding Method Indwelling Catheter Indwelling Catheter - Labs CBC & Chem 7: 01/12/24 05:21 01/12/24 05:21 Labs: Abnormal Lab Results - Last 24 Hours (Table) 01/11/24 01/11/24 01/11/24 Range/Units 11:10 17:00 21:42 Lymphocytes # (1.0-4.8) k/uL ABG pCO2 (35-45) mmHg ABG HCO3 (21-25) mmol/L ABG Total CO2 (19-24) mmol/L ABG O2 Saturation (94-97) % Hemoglobin (11.4-16.0) gm/dL Sodium (137-145) mmol/L Carbon Dioxide (22-30) mmol/L BUN (7-17) mg/dL Creatinine (0.52-1.04) mg/dL Glucose (74-99) mg/dL POC Glucose (mg/dL) 134 H 144 H (70-110) mg/dL Urine Opiates Screen Detected H (NotDetected) U Benzodiazepines Scrn Detected H (NotDetected) 01/12/24 01/12/24 01/12/24 Range/Units 05:21 05:21 05:51 Lymphocytes # 0.5 L (1.0-4.8) k/uL ABG pCO2 60 H (35-45) mmHg ABG HCO3 41 H* (21-25) mmol/L ABG Total CO2 43 H (19-24) mmol/L ABG O2 Saturation 97.8 H (94-97) % Hemoglobin 11.2 L (11.4-16.0) gm/dL Sodium 135 L (137-145) mmol/L Carbon Dioxide 37 H (22-30) mmol/L BUN 20 H (7-17) mg/dL Creatinine 0.35 L (0.52-1.04) mg/dL Glucose 138 H (74-99) mg/dL POC Glucose (mg/dL) (70-110) mg/dL Urine Opiates Screen (NotDetected) U Benzodiazepines Scrn (NotDetected) Microbiology - Last 24 Hours (Table) 01/11/24 08:36 Gram Stain - Preliminary Sputum 01/11/24 01:40 Blood Culture Gram Stain - Preliminary Blood Blood Culture - Preliminary Molecular ID Assessment and Plan Time with Patient: Less than 30
[2024-01-12 18:20] LABS: Glucose,Whole Blood 141 mg/dL (70-110)
[2024-01-13 04:34] LABS: ABG Base Excess 11.2 mmol/L; ABG HCO3 38 mmol/L (21-25); ABG Oxygen Saturation 97.2 % (94-97); ABG PCO2 60 mmHg (35-45); ABG PH 7.41 (7.35-7.45); ABG PO2 88 mmHg (83-108); ABG TCO2 40 mmol/L (19-24)
[2024-01-13 04:38] LABS: Allen Test Performed? no
[2024-01-13 05:25] LABS: Basophils % (A) 1 %; Eosinophils % (A) 0 %; HCT 34.6 % (34.0-46.0); HGB 11.2 gm/dL (11.4-16.0); Lymphocytes # (A) 0.3 k/uL (1.0-4.8); Lymphocytes % (A) 6 %; MCH 31.3 pg (25.0-35.0); MCHC 32.4 g/dL (31.0-37.0); MCV 96.7 fL (80.0-100.0); Mean Platelet Volume 8.8; Monocytes # (A) 0.3 k/uL (0-1.0); Monocytes % (A) 5 %; Neutrophils # (A) 5.2 k/uL (1.3-7.7); Neutrophils % (A) 88 %; Platelet Count 246 k/uL (150-450); RBC 3.58 m/uL (3.80-5.40); RDW 15.3 % (11.5-15.5); WBC 5.9 k/uL (3.8-10.6)
[2024-01-13 06:11] LABS: African American GFR (CKD) >90 (>60 ml/min/1.73 sqM); Anion Gap 16 mmol/L; Blood Urea Nitrogen 25 mg/dL (7-17); Calcium 8.4 mg/dL (8.4-10.2); Carbon Dioxide 37 mmol/L (22-30); Chloride 82 mmol/L (98-107); Glucose 144 mg/dL (74-99); Non-African American GFR(CKD) >90 (>60 ml/min/1.73 sqM); Potassium 3.8 mmol/L (3.5-5.1); Sodium 135 mmol/L (137-145)
--- NOTE | 2024-01-13 07:29 | XR ---
EXAMINATION TYPE: XR chest 1V portable DATE OF EXAM: 01/13/2024 6:49 AM CLINICAL INDICATION: Female, 53 years old with history of Tube placement; [facility] COMPARISON: Chest radiographs from 01/12/2024 TECHNIQUE: XR chest 1V portable Frontal view of the chest. FINDINGS: Lungs/Pleura: There is no evidence of pleural effusion, focal consolidation, or pneumothorax. Pulmonary vascularity: Unremarkable. Heart/mediastinum: Cardiomediastinal silhouette is unremarkable. Musculoskeletal: No acute osseous pathology. Other findings: None Lines/Tubes: Endotracheal tube with distal tip 7.8 cm above the angel. Nasogastric tube with its distal tip and side-port projecting under the diaphragm. IMPRESSION: High endotracheal tube consider advancement of 4 cm for improved position. Nasogastric tube in appropriate position.
[2024-01-13] MEDS: POTASSIUM CHLORIDE 20 MEQ in WATER FOR INJECTION 1 100ML.BAG IVPB STA (07:30)
[2024-01-13] MEDS: VANCOMYCIN TROUGH DUE 1 EACH MISC MISCELLANE ONE (07:30)
[2024-01-13] MEDS: DEXMEDETOMIDINE/0.9% NACL(PMX) 400 MCG in EMPTY BAG 1 BAG IV SCH (09:13)
--- NOTE | 2024-01-13 11:33 | P.PN ---
Subjective Progress Note Date: 01/13/24 Principal diagnosis: Acute on chronic hypoxic and hypercapnic respiratory failure secondary to acute exacerbation of severe COPD Patient is a 53-year-old female with past medical history significant for COPD, ventilator dependent respiratory failure with previous tracheostomy and PEG tube, HIV on Biktarvy. In July, she had a prolonged stay in the intensive care unit, she was intubated and placed on the mechanical ventilator. Eventually required tracheostomy and PEG tube. Subsequently, the patient was decannulated. Has had frequent hospitalizations since then, for acute COPD exacerbation; in fact, she just was discharged yesterday for the same. She was denied for noninvasive BiPAP at home. Brought in by EMS early this morning in acute respiratory distress. I did speak to the provider, who states the patient was in severe respiratory distress. Audible wheezing. Not moving much air and was obtunded. Briefly trialed on BiPAP. She was ultimately intubated by the ER provider. Patient is currently being evaluated in in trauma bay 2. Current ventilator settings include assist-control, respiratory rate 24, tidal volume 350, FiO2 100%, PEEP of 5. ABGs done in the settings PaO2 greater than 420, pCO2 87, pH of 7.28. Rate was increased to 28. FiO2 dropped to 40%. She is not very well sedated, fighting the ventilator. Currently, propofol is being titrated up to 50 mcg/kg/min. Peak pressures are elevated at 38, static pressure 22. Significant airway resistance. She has been started on bronchodilators. No endotracheal secretions. No reported aspiration events. Chest x-ray showing a proximal ET tube, that will have to be advanced at least 3 cm. Nasogastric tube courses below the diaphragm. No obvious focal infiltrates or pneumonia. Hyperinflation consistent with COPD. CBC unremarkable. No leukocytosis. CMP: Sodium 132, potassium 3.8, chloride 87, serum bicarb 38, BUN 23, creatinine 0.39, glucose 115. Troponin 0.025. NT proBNP 474. EKG: sinus tachycardia, rate 133 bpm, no obvious acute ischemic changes. Blood pressures remain stable. Bolused one liter normal saline following intubation. Not requiring any vasopressors. Afebrile. She will be admitted to the intensive care unit once bed available. Seen and examined today on 01/12/2024, patient is in the ICU, intubated and mechanically ventilated, I saw her yesterday on consultation when she was in the ER. Patient is now on assist-control rate of 20, tidal volume 325 FiO2 35% and PEEP of 5 ABG showed a pO2 of 88 pCO2 60, pH of 7.44, hence no changes were made in her ventilator settings. Remain on the same vent settings. Patient is requiring propofol at 70 mcg/kg/min, she is also now on Rocephin and vancomycin. Patient did have positive blood cultures, however uncertain whether this is a contamination or true MRSA infection hence empirically she is on Rocephin and vancomycin for now. Chest x-ray showed COPD, no evidence of infiltrates in both lungs. WBC count is 6.9 hemoglobin 11.9 basic metabolic profile is normal renal profile is normal blood cultures preliminary report gram-positive cocci in clusters, could be a contamination, final identification is pending patient remains on bronchodilators and steroids, patient remains on GI DVT prophylaxis and she is on enteral nutrition/for nutritional support clearly the patient is not quite ready to be weaned and extubated considering her underlying COPD will be extremely difficult and a challenge to extubate this patient. In the past patient required tracheostomy and PEG tube placement Patient was seen and examined today on 01/13/2024, remains in the ICU intubated and mechanically ventilated. She is on assist-control rate of 20 tidal volume 325 FiO2 35% PEEP of 5 ABG showed a pO2 of 88 pCO2 60 pH of 7.41. Chest x-ray showed no evidence of active disease, however the endotracheal tube needs to be advanced down about 3 cm. Patient is on propofol at 75 mcg/kg/min, I plan to transition to Precedex, awaken the patient, and check weaning parameters even possibly consider a weaning trial on this patient today. WBC count is 5.9 hemoglobin 11.2 basic metabolic profile is normal, renal profile is normal blood sugar is 141 Objective - Vital Signs Vital signs: Vital Signs Temp 97.5 F L 01/13/24 09:00 Pulse 62 01/13/24 11:00 Resp 20 01/13/24 11:00 BP 139/89 01/13/24 11:00 Pulse Ox 96 01/13/24 11:00 FiO2 35 01/13/24 08:00 Intake & Output 01/12/24 01/13/24 01/13/24 18:59 06:59 18:59 Intake Total 9698.599 1667.267 849.948 Output Total 730 335 380 Balance 556.654 863.267 469.948 Weight 58.2 kg 61.2 kg 61.2 kg Intake: IV 975 925 725 Potassium Chloride 20 meq 100 In Water For Injection 1 100ml.bag @ 50 mls/hr IVPB ONCE STA Rx#: [id number] Sodium Chloride 0.9% 1, 975 675 375 000 ml @ 75 mls/hr IV . [id number] [facility] Rx#:[id number] Vancomycin 1,000 mg In 250 250 Sodium Chloride 0.9% 250 ml @ 125 mls/hr IVPB Q8H [facility] Rx#:[id number] Intake, IV Titration 311.654 273.267 124.948 Amount Dexmedetomidine/0.9% NaCl 4.055 (Pmx) 400 mcg In Empty Bag 1 bag @ 0.2 MCG/KG/HR 3.06 mls/hr IV .Q24H [facility] Rx#:[id number] cefTRIAXone 1 gm In 100 Sodium Chloride 0.9% 50 ml @ 100 mls/hr IVPB Q24HR [facility] Rx#:[id number] propofoL 1,000 mg In 311.654 273.267 20.893 Empty Bag 1 bag @ 15 MCG/ KG/MIN 5.715 mls/hr IV . [id number] [facility] Rx#:[id number] Output: Gastric Drainage 300 150 Urine 430 335 230 Other: Voiding Method Indwelling Catheter Indwelling Catheter ABP, PAP, CO, CI - Last Documented Arterial Blood Pressure 169/81 - Exam GENERAL EXAM: Revealed 53-year-old female intubated mechanically ventilated sedated, on propofol. Head is atraumatic, normocephalic, endotracheal tube is intact orogastric tube is intact EYES: Normal reaction of pupils, equal size. NOSE: Clear with pink turbinates. THROAT: No erythema or exudates. NECK: No masses, no JVD. CHEST: No chest wall deformity. LUNGS: Diminished breath sound bilaterally no crackles rhonchi or wheezes CVS: Distant S1-S2, no S3 gallop, no murmur ABDOMEN: No hepatosplenomegaly, active bowel sounds, no guarding or rigidity. SKIN: No rashes CENTRAL NERVOUS SYSTEM: Patient is intubated sedated, could not assess on propofol. EXTREMITIES: No clubbing edema or cyanosis. Psychiatric: Could not assess - Labs CBC & Chem 7: 01/13/24 05:07 01/13/24 05:07 Labs: Abnormal Lab Results - Last 24 Hours (Table) 01/12/24 01/13/24 01/13/24 Range/Units 18:18 04:30 05:07 RBC 3.58 L (3.80-5.40) m/uL Hgb 11.2 L (11.4-16.0) gm/dL Lymphocytes # 0.3 L (1.0-4.8) k/uL ABG pCO2 60 H (35-45) mmHg ABG HCO3 38 H (21-25) mmol/L ABG Total CO2 40 H (19-24) mmol/L ABG O2 Saturation 97.2 H (94-97) % Hemoglobin 11.0 L (11.4-16.0) gm/dL Sodium (137-145) mmol/L Chloride (98-107) mmol/L Carbon Dioxide (22-30) mmol/L BUN (7-17) mg/dL Creatinine (0.52-1.04) mg/dL Glucose (74-99) mg/dL POC Glucose (mg/dL) 141 H (70-110) mg/dL Magnesium (1.6-2.3) mg/dL 01/13/24 01/13/24 Range/Units 05:07 05:07 RBC (3.80-5.40) m/uL Hgb (11.4-16.0) gm/dL Lymphocytes # (1.0-4.8) k/uL ABG pCO2 (35-45) mmHg ABG HCO3 (21-25) mmol/L ABG Total CO2 (19-24) mmol/L ABG O2 Saturation (94-97) % Hemoglobin (11.4-16.0) gm/dL Sodium 135 L (137-145) mmol/L Chloride 82 L (98-107) mmol/L Carbon Dioxide 37 H (22-30) mmol/L BUN 25 H (7-17) mg/dL Creatinine 0.41 L (0.52-1.04) mg/dL Glucose 144 H (74-99) mg/dL POC Glucose (mg/dL) (70-110) mg/dL Magnesium 2.4 H (1.6-2.3) mg/dL Microbiology - Last 24 Hours (Table) 01/11/24 08:36 Gram Stain - Final Sputum Sputum Culture - Final 01/11/24 01:40 Blood Culture Gram Stain - Preliminary Blood Blood Culture - Preliminary Staphylococcus epidermidis Molecular ID Assessment and Plan Assessment: Impression: Acute on chronic hypoxic respiratory failure requiring intubation mechanical ventilation Acute exacerbation of severe COPD/end-stage Bacteremia, possible contamination, final cultures of the blood or pending, amalia clemons the patient is now on vancomycin and Rocephin empirically History of ventilator dependent respiratory failure with previous tracheostomy and PEG tube insertion status post decannulation Very severe underlying COPD with an FEV1 22% of predicted Former tobacco dependence Acquired immunodeficiency syndrome, maintained on Biktarvy, most recent CD4 count 83 History of left upper lobe lung nodule, previously measuring 9 mm in size, being monitored on outpatient basis Recommendation: Continue ventilatory support, however the patient may be given a trial of weaning today off sedation, and will check weaning parameters on Precedex as she gets extremely anxious and agitated and she does have history of alcohol abuse Continue nutritional support Continue GI DVT prophylaxis Continue bronchodilators Continue Solu-Medrol. Patient is critically ill Critical care time is over 30 minutes Will continue to monitor in the ICU Time with Patient: Greater than 30
[2024-01-13 12:17] LABS: ABG Base Excess 9.1 mmol/L; ABG HCO3 37 mmol/L (21-25); ABG Oxygen Saturation 94.9 % (94-97); ABG PCO2 65 mmHg (35-45); ABG PH 7.36 (7.35-7.45); ABG PO2 77 mmHg (83-108); ABG TCO2 39 mmol/L (19-24)
[2024-01-13 12:20] LABS: Allen Test Performed? no
--- NOTE | 2024-01-13 12:27 | P.PN ---
Subjective Progress Note Date: 01/13/24 This is a patient 53-year-old female who was just discharged yesterday as she was adamant about going home and continued to await for authorization to have BiPAP in the home and ultimately got home having worsening shortness of breath and was brought back here via EMS having worsening respiratory status and respiratory distress. Patient follows with Dr. Harvey in the outpatient setting with a past medical history of COPD, chronic respiratory failure, HIV. Patient is a former smoker and also known to have alcohol abuse history. Labs reviewed on admission with a white count of 9.9, hemoglobin 12.4, platelets 220, ABG showed a pH of 7.33, pCO2 is 72, pO2 112, bicarb 38, total CO2 41 and oxygen saturation 98.6. Sodium level mildly low at 132 with a potassium of 3.8, chloride is low at 87 carbon dioxide 38, BUN 23 with a creatinine of 0.39. Lactic acid not elevated at 1.4, calcium is 7.7 and magnesium 2.1. Patient did have a BNP drawn which was 474 and troponin was 0.025. Drug screening also d etected benzos and opiates as patient was just recently hospitalized and discharged. Patient x-ray shows chronic changes without evidence of acute pulmonary disease. Patient was obtunded at the time of ED admission and CT brain was performed showing no acute hemorrhage, hydrocephalus or mass effect, EKG showed sinus tachycardia and patient was admitted for COPD exacerbation and also requiring mechanical ventilation and currently awaiting an ICU bed. 01/12/2024 Patient is currently intubated and sedated in the intensive care unit. She is admitted for severe COPD. Remains on IV vancomycin and IV Rocephin there is concern for possible cultures revealing staph epi which will be repeated today. This is likely a contaminant species. Her blood counts are completely unremarkable. Sodium level of 135, 1 of 20, creatinine of 0.35, blood glucose of 130s. Her ABGs today reveal a pCO2 of 41, HCO3 of 43, total oxygen saturation of 97.8 and a pH of 7.44, pCO2 of 60. Procalcitonin level is negative at 0.05. Patient has significantly improved 131/81. 01/13/2024 Patient is evaluated today in the intensive care unit she is currently intubated and sedated. FiO2 of 35%. Patient remains on IV vancomycin and IV ceftriaxone. Her blood cultures are showing staph epi we did consult ID and repeat the blood cultures although this is likely a contaminant species. Patient had a chest x- ray today which reveals endotracheal tube consider advancement for improved position there is no evidence of pleural effusion or focal consolidation or pneumothorax. Stable level of 135, potassium of 3.8, CO2 of 37, chloride of 82, BUN of 25, creatinine of 0.41, glucose of 144, magnesium of 2.4. Remains afebrile, heart rate of 62, blood pressure 139/89. REVIEW OF SYSTEMS: Unable to assess as patient has been intubated and is on propofol for sedation PHYSICAL EXAMINATION: GENERAL: The patient is a 53-year-old female who appears elderly, ill appearing, currently on mechanical ventilation with an FiO2 of 35% PEEP is 5, sedated and maintained on propofol HEENT: Pupils are round and equally reacting to light. EOMI. No scleral icterus. No conjunctival pallor. Normocephalic, atraumatic. No pharyngeal erythema. No thyromegaly. CARDIOVASCULAR: S1 and S2 muffled, mildly tachycardic PULMONARY: Severely diminished breath sounds bilaterally with coarse breath sound and scattered rhonchi noted, no accessory muscle use noted ABDOMEN: Soft, thin, nontender, nondistended, normoactive bowel sounds. No palpable organomegaly. MUSCULOSKELETAL: No joint swelling or deformity. EXTREMITIES: No cyanosis, clubbing, or pedal edema. NEUROLOGICAL: Gross neurological examination did not reveal any focal deficits. Unable to completely assess as patient is sedated on propofol SKIN: No rashes. Assessment: Acute on chronic hypercapnic hypoxemic respiratory failure secondary to COPD exacerbation with acute respiratory failure and being obtunded requiring mechanical ventilation on 01/11/2024 History of severe COPD and chronically wears 4 L outpatient, FEV1 is 22% HIV on Biktarvy History of depression History of CVA/TIA History of anxiety/Depression/Panic disorder Continued ongoing nicotine dependence Hx of prolonged intubation requiring trach/peg status post reversal. History of alcoholism GI prophylaxis DVT prophylaxis Full Code Plan: Patient was recently hospitalized and has had multiple hospitalizations regarding respiratory failure and COPD exacerbation and was adamant about leaving yesterday. Pulmonary was following attempting to have the patient qualified for BiPAP at home as it is felt she would highly benefit from this and possibly minimize frequent rehospitalizations although did not qualify. Patient chronically wears 4 L outpatient and went home and was noted to have severe respiratory distress and brought back to the hospital. Patient was obtunded and minimally responsive and ER physician decided to intubate the patient. Patient is currently maintained on mechanical ventilation with an FiO2 of 35% and PEEP is 5. Patient awaiting a bed in the ICU Patient is maintained on [id number] DuoNebs along with IV steroids and empiric antibiotics per pulmonary Overall prognosis is extremely guarded given her severe COPD and HIV history The impression and plan of care has been dictated by Vangie Barton, Nurse Practitioner as directed. Dr. Dann MD I have performed a history and physical examination and medical decision making of this patient, discussed the same with the dictator, and agree with the dictators assessment and plan as written, documented as a scribe. Based on total visit time, I have performed more than 50% of this visit. Objective - Vital Signs Vital signs: Vital Signs Temp 97.5 F L 01/13/24 09:00 Pulse 62 01/13/24 11:00 Resp 20 01/13/24 11:00 BP 139/89 01/13/24 11:00 Pulse Ox 96 01/13/24 11:00 FiO2 35 01/13/24 11:59 Intake & Output 01/12/24 01/13/24 01/13/24 18:59 06:59 18:59 Intake Total 8144.399 0695.267 873.314 Output Total 730 335 380 Balance 556.654 863.267 493.314 Weight 58.2 kg 61.2 kg 61.2 kg Intake: IV 975 925 725 Potassium Chloride 20 meq 100 In Water For Injection 1 100ml.bag @ 50 mls/hr IVPB ONCE STA Rx#: [id number] Sodium Chloride 0.9% 1, 975 675 375 000 ml @ 75 mls/hr IV . [id number] [facility] Rx#:[id number] Vancomycin 1,000 mg In 250 250 Sodium Chloride 0.9% 250 ml @ 125 mls/hr IVPB Q8H [facility] Rx#:[id number] Intake, IV Titration 311.654 273.267 148.314 Amount Dexmedetomidine/0.9% NaCl 17.800 (Pmx) 400 mcg In Empty Bag 1 bag @ 0.2 MCG/KG/HR 3.06 mls/hr IV .Q24H [facility] Rx#:[id number] cefTRIAXone 1 gm In 100 Sodium Chloride 0.9% 50 ml @ 100 mls/hr IVPB Q24HR [facility] Rx#:[id number] propofoL 1,000 mg In 311.654 273.267 30.514 Empty Bag 1 bag @ 15 MCG/ KG/MIN 5.715 mls/hr IV . [id number] [facility] Rx#:[id number] Output: Gastric Drainage 300 150 Urine 430 335 230 Other: Voiding Method Indwelling Catheter Indwelling Catheter Indwelling Catheter ABP, PAP, CO, CI - Last Documented Arterial Blood Pressure 169/81 - Labs CBC & Chem 7: 01/13/24 05:07 01/13/24 05:07 Labs: Abnormal Lab Results - Last 24 Hours (Table) 01/12/24 01/13/24 01/13/24 Range/Units 18:18 04:30 05:07 RBC 3.58 L (3.80-5.40) m/uL Hgb 11.2 L (11.4-16.0) gm/dL Lymphocytes # 0.3 L (1.0-4.8) k/uL ABG pCO2 60 H (35-45) mmHg ABG pO2 (83-108) mmHg ABG HCO3 38 H (21-25) mmol/L ABG Total CO2 40 H (19-24) mmol/L ABG O2 Saturation 97.2 H (94-97) % Hemoglobin 11.0 L (11.4-16.0) gm/dL Sodium (137-145) mmol/L Chloride (98-107) mmol/L Carbon Dioxide (22-30) mmol/L BUN (7-17) mg/dL Creatinine (0.52-1.04) mg/dL Glucose (74-99) mg/dL POC Glucose (mg/dL) 141 H (70-110) mg/dL Magnesium (1.6-2.3) mg/dL 01/13/24 01/13/24 01/13/24 Range/Units 05:07 05:07 12:15 RBC (3.80-5.40) m/uL Hgb (11.4-16.0) gm/dL Lymphocytes # (1.0-4.8) k/uL ABG pCO2 65 H (35-45) mmHg ABG pO2 77 L (83-108) mmHg ABG HCO3 37 H (21-25) mmol/L ABG Total CO2 39 H (19-24) mmol/L ABG O2 Saturation (94-97) % Hemoglobin (11.4-16.0) gm/dL Sodium 135 L (137-145) mmol/L Chloride 82 L (98-107) mmol/L Carbon Dioxide 37 H (22-30) mmol/L BUN 25 H (7-17) mg/dL Creatinine 0.41 L (0.52-1.04) mg/dL Glucose 144 H (74-99) mg/dL POC Glucose (mg/dL) (70-110) mg/dL Magnesium 2.4 H (1.6-2.3) mg/dL Microbiology - Last 24 Hours (Table) 01/11/24 08:36 Gram Stain - Final Sputum Sputum Culture - Final 01/11/24 01:40 Blood Culture Gram Stain - Preliminary Blood Blood Culture - Preliminary Staphylococcus epidermidis Molecular ID Assessment and Plan Time with Patient: Less than 30
[2024-01-13] MEDS: CLEVIDIPINE BUTYRATE 25 MG in EMPTY BAG 1 BAG IV SCH (13:23)
[2024-01-13] MEDS ORDERED: VANCOMYCIN 1,250 MG in SODIUM CHLORIDE 0.9% 250 ML IVPB SCH (16:00)
--- NOTE | 2024-01-13 23:06 | P.CONS ---
History of Present Illness - Reason for Consult Consult date: 01/13/24 Positive blood culture Requesting physician: Vangie Barton - Chief Complaint Shortness of breath x few days - History of Present Illness Patient is a 53-year-old female with a past medical history significant for COPD asthma CVA TIA HIV in this patient who was recently admitted to the hospital with COPD exacerbation was discharged home presenting back within 24-hour for worsening respiratory status patient was obtunded and unable to provide any history to the ER physician patient had obtained intubated in the ER and subsequently has been admitted to the ICU patient on presentation to the hospital was afebrile and no fever have been recorded subsequently patient was nontachycardic or hypotensive and no need for pressor support patient did have a normal white count creatinine has been normal procalcitonin 0.05 urine testing was positive for opiates and benzo influenza RSV COVID testing negative patient did have blood culture on 912 came back positive with staph epi blood culture from 9 that is so far negative patient was started on vancomycin infectious disease was consulted today regarding positive blood culture most information has been obtained for review the chart talking nursing staff as the patient is currently intubated on the vent and cannot provide any history Review of Systems Positive points has been mentioned in HPI complete review could not be obtained because patient intubated on the vent Past Medical History Past Medical History: Asthma, Blood Disorder, COPD, CVA/TIA Additional Past Medical History / Comment(s): hiv History of Any Multi-Drug Resistant Organisms: None Reported Past Surgical History: No Surgical Hx Reported Additional Past Surgical History / Comment(s): peg and tracheostomy reversal 2023 Past Anesthesia/Blood Transfusion Reactions: No Reported Reaction Past Psychological History: Anxiety, Depression, Panic Disorder Smoking Status: Former smoker Past Alcohol Use History: None Reported, Occasional Past Drug Use History: None Reported - Past Family History Mother History Unknown: Yes Medications and Allergies Home Medications Medication Instructions Recorded Confirmed Type Albuterol Sulfate [Albuterol 2 puff PO RT-Q4H PRN 03/14/22 01/11/24 History Sulfate Hfa] Bictegrav/Emtricit/Tenofov Ala 1 tab PO DAILY 08/10/23 01/11/24 History [Biktarvy 50-200-25 mg Tablet] Ipratropium-Albuterol Nebulize 3 ml INHALATION RT-Q4H PRN 08/10/23 01/11/24 History [Duoneb 0.5 mg-3 mg/3 ml Soln] Famotidine [Pepcid] 20 mg PO BID 09/30/23 01/11/24 History Ondansetron [Zofran] 4 mg PO BID PRN 11/05/23 01/11/24 History ALPRAZolam [Xanax] 0.5 mg PO BID 11/27/23 01/11/24 History Diurex 2 tab PO Q4H PRN MDD 6 tabs 11/27/23 01/11/24 History Fluticasone Propionate [Flonase 1 spray EA NOSTRIL DAILY PRN 11/27/23 01/11/24 History Allergy Relief] Ibuprofen [Motrin Ib] 200 - 400 mg PO Q6H PRN 11/27/23 01/11/24 History Simethicone [Gas-X] 125 - 250 mg PO ACHS PRN MDD 4 11/27/23 01/11/24 History pills Fluticasone/Umeclidin/Vilanter 1 puff INHALATION RT-DAILY 01/04/24 01/11/24 History [Trelegy Ellipta 200-62.5-25] Mirtazapine [Remeron] 15 mg PO HS 01/04/24 01/11/24 History Sulfamethox-Tmp 800-160Mg [Bactrim 1 tab PO DIRECTED 01/06/24 01/11/24 History DS 800-160 mg] predniSONE [Deltasone] See Taper PO DIRECTED 01/11/24 01/11/24 History Allergies Allergy/AdvReac Type Severity Reaction Status Date / Time Penicillins Allergy Anaphylaxis Verified 01/11/24 09:52 Milk Containing Products AdvReac Nausea & Verified 01/11/24 09:52 (Dairy) Vomiting & Diarrhea Physical Exam Vitals: Vital Signs Temp Pulse Resp BP Pulse Ox FiO2 01/13/24 11:59 35 01/13/24 11:55 35 01/13/24 11:00 62 20 139/89 96 01/13/24 10:00 76 20 145/91 99 01/13/24 09:00 97.5 F L 66 20 98 01/13/24 08:49 65 01/13/24 08:39 63 01/13/24 08:32 63 01/13/24 08:00 61 20 142/89 97 35 01/13/24 07:58 35 01/13/24 07:00 64 20 153/92 99 01/13/24 06:00 75 20 150/90 95 01/13/24 05:00 65 20 142/89 98 01/13/24 04:00 98.5 F 65 20 146/91 98 35 01/13/24 03:57 68 01/13/24 03:36 62 35 01/13/24 03:00 71 20 125/80 96 01/13/24 02:00 78 20 125/80 95 01/13/24 01:00 86 20 125/77 96 01/13/24 00:49 90 20 125/77 95 01/13/24 00:00 98.5 F 90 20 120/75 96 35 01/12/24 23:38 88 01/12/24 23:19 35 01/12/24 23:18 98 01/12/24 23:00 80 20 113/72 95 01/12/24 22:00 76 20 113/70 95 01/12/24 21:00 78 20 112/72 96 01/12/24 20:00 98.4 F 74 20 112/74 97 35 01/12/24 19:57 75 01/12/24 19:52 74 01/12/24 19:51 71 01/12/24 19:45 35 01/12/24 19:44 74 01/12/24 19:00 77 20 109/68 95 01/12/24 18:00 80 20 118/78 96 01/12/24 17:00 80 20 119/83 96 01/12/24 16:09 74 01/12/24 16:00 98.5 F 80 20 107/68 97 35 01/12/24 15:54 70 01/12/24 15:53 35 01/12/24 15:00 75 20 118/74 96 01/12/24 14:00 86 20 131/81 96 01/12/24 13:00 85 20 118/80 99 01/12/24 12:13 88 01/12/24 12:06 98.5 F Intake and Output 01/12/24 01/13/24 01/13/24 22:59 06:59 14:59 Intake Total 789.983 883.284 873.314 Output Total 225 275 380 Balance 564.983 608.284 493.314 Intake: IV 600 700 725 Potassium Chloride 20 meq 100 In Water For Injection 1 100ml.bag @ 50 mls/hr IVPB ONCE STA Rx#: [id number] Sodium Chloride 0.9% 1, 600 450 375 000 ml @ 75 mls/hr IV . [id number] [facility] Rx#:[id number] Vancomycin 1,000 mg In 250 250 Sodium Chloride 0.9% 250 ml @ 125 mls/hr IVPB Q8H [facility] Rx#:[id number] Intake, IV Titration 189.983 183.284 148.314 Amount Dexmedetomidine/0.9% NaCl 17.800 (Pmx) 400 mcg In Empty Bag 1 bag @ 0.2 MCG/KG/HR 3.06 mls/hr IV .Q24H [facility] Rx#:[id number] cefTRIAXone 1 gm In 100 Sodium Chloride 0.9% 50 ml @ 100 mls/hr IVPB Q24HR [facility] Rx#:[id number] propofoL 1,000 mg In 189.983 183.284 30.514 Empty Bag 1 bag @ 15 MCG/ KG/MIN 5.715 mls/hr IV . [id number] [facility] Rx#:[id number] Output: Gastric Drainage 150 Urine 225 275 230 Other: Voiding Method Indwelling Catheter Indwelling Catheter Indwelling Catheter Weight 61.2 kg 61.2 kg ABP, PAP, CO, CI - Last 8 Hours Arterial Blood Pressure 169/81 Arterial Blood Pressure 140/67 Arterial Blood Pressure 136/74 Arterial Blood Pressure 141/77 Arterial Blood Pressure 155/73 Arterial Blood Pressure 161/77 GENERAL DESCRIPTION: Middle-age female intubated on the vent HEENT: Shows Pallor , no scleral icterus. Oral mucous membrane is dry. NECK: Trachea central, no thyromegaly. LUNGS: Unlabored breathing. Decreased intensity of breath sounds, no wheeze HEART: S1, S2, regular rate and rhythm. No loud murmur ABDOMEN: Soft, no tenderness , guarding or rigidity, no organomegaly EXTREMITIES: No edema of feet. SKIN: No rash, no masses palpable. NEUROLOGICAL: The patient is sedated on the vent Results CBC & Chem 7: 01/13/24 05:07 01/13/24 05:07 Labs: Abnormal Lab Results - Last 24 Hours (Table) 01/12/24 01/13/24 01/13/24 Range/Units 18:18 04:30 05:07 RBC 3.58 L (3.80-5.40) m/uL Hgb 11.2 L (11.4-16.0) gm/dL Lymphocytes # 0.3 L (1.0-4.8) k/uL ABG pCO2 60 H (35-45) mmHg ABG HCO3 38 H (21-25) mmol/L ABG Total CO2 40 H (19-24) mmol/L ABG O2 Saturation 97.2 H (94-97) % Hemoglobin 11.0 L (11.4-16.0) gm/dL Sodium (137-145) mmol/L Chloride (98-107) mmol/L Carbon Dioxide (22-30) mmol/L BUN (7-17) mg/dL Creatinine (0.52-1.04) mg/dL Glucose (74-99) mg/dL POC Glucose (mg/dL) 141 H (70-110) mg/dL Magnesium (1.6-2.3) mg/dL 01/13/24 01/13/24 Range/Units 05:07 05:07 RBC (3.80-5.40) m/uL Hgb (11.4-16.0) gm/dL Lymphocytes # (1.0-4.8) k/uL ABG pCO2 (35-45) mmHg ABG HCO3 (21-25) mmol/L ABG Total CO2 (19-24) mmol/L ABG O2 Saturation (94-97) % Hemoglobin (11.4-16.0) gm/dL Sodium 135 L (137-145) mmol/L Chloride 82 L (98-107) mmol/L Carbon Dioxide 37 H (22-30) mmol/L BUN 25 H (7-17) mg/dL Creatinine 0.41 L (0.52-1.04) mg/dL Glucose 144 H (74-99) mg/dL POC Glucose (mg/dL) (70-110) mg/dL Magnesium 2.4 H (1.6-2.3) mg/dL Microbiology - Last 24 Hours (Table) 01/11/24 08:36 Gram Stain - Final Sputum Sputum Culture - Final 01/11/24 01:40 Blood Culture Gram Stain - Preliminary Blood Blood Culture - Preliminary Staphylococcus epidermidis Molecular ID Assessment and Plan (1) Positive blood culture Current Visit: Yes Status: Acute Code(s): R78.81 - BACTEREMIA SNOMED Code(s): 634985977 (2) HIV disease Current Visit: No Status: Acute Code(s): B20 - HUMAN IMMUNODEFICIENCY VIRUS [HIV] DISEASE SNOMED Code(s): 46437862 Plan: 1patient with a positive blood culture with staph epi which is usually discrete terence and more likely representing a skin contamination as the patient did not have any evidence of cellulitis or open wound and staph epi not a common bacteria to cause any respiratory infection patient did have a normal chest x- ray and normal procalcitonin. 2we will discontinue vancomycin and monitor the patient closely off antibiotic therapy. 3patient to continue with Biktarvy for her HIV. We will follow on clinical condition and cultures to further adjust medication if needed Thank you for this consultation we will follow the patient along with you Dictation was produced using [employer] dictation software. please excuse any grammatical, word or spelling errors. Time with Patient: Greater than 30
[2024-01-13] MEDS: fentaNYL (PF). 1,000 MCG in SODIUM CHLORIDE 0.9% 80 ML IV SCH (23:14)
[2024-01-13] MEDS: CISATRACURIUM 200 MG in SODIUM CHLORIDE 0.9% 180 ML IV SCH (23:15)
[2024-01-13] MEDS: CISATRACURIUM 2 MG/ML 5 ML VIAL IV ONE (23:16)
[2024-01-14 04:51] LABS: ABG Base Excess 9.5 mmol/L; ABG HCO3 37 mmol/L (21-25); ABG Oxygen Saturation 92.2 % (94-97); ABG PCO2 63 mmHg (35-45); ABG PH 7.37 (7.35-7.45); ABG PO2 66 mmHg (83-108); ABG TCO2 39 mmol/L (19-24)
[2024-01-14 04:59] LABS: Allen Test Performed? no
[2024-01-14 05:07] LABS: African American GFR (CKD) >90 (>60 ml/min/1.73 sqM); Non-African American GFR(CKD) >90 (>60 ml/min/1.73 sqM)
[2024-01-14 07:44] LABS: Basophils % (A) 1 %; Eosinophils % (A) 0 %; HCT 38.1 % (34.0-46.0); Hypochromasia Moderate; Lymphocytes # (A) 0.3 k/uL (1.0-4.8); Lymphocytes % (A) 5 %; MCHC 31.6 g/dL (31.0-37.0); MCV 98.3 fL (80.0-100.0); Mean Platelet Volume 7.6; Monocytes # (A) 0.3 k/uL (0-1.0); Monocytes % (A) 5 %; Neutrophils # (A) 4.9 k/uL (1.3-7.7); Neutrophils % (A) 89 %; Platelet Count 317 k/uL (150-450); RBC 3.88 m/uL (3.80-5.40); WBC 5.6 k/uL (3.8-10.6)
[2024-01-14 08:29] LABS: Potassium 4.2 mmol/L (3.5-5.1)
--- NOTE | 2024-01-14 10:35 | XR ---
EXAMINATION TYPE: XR chest 1V portable DATE OF EXAM: 01/14/2024 Comparison: 01/13/2024 Clinical History: 53-year-old female ventilator dependent Findings: Angel not well seen. ET tube estimated to be 1.7 cm from the angel. Consider pulling back 1 cm. NG tube satisfactory. Heart upper limits of normal in size. No consolidation or pleural effusion. Impression: 1. Angel not well seen relative to the ET tube tip. Estimated at 1.7 cm away. Consider pulling the E T tube back 1 cm and reassessing at follow-up. 2. Otherwise, no significant change. No definite acute process. [facility], , 01/14/2024 10:33 AM
[2024-01-14] MEDS ORDERED: DEXTROSE 50% SYRINGE 50 ML IVP PRN ×2 (11:30)
[2024-01-14 12:09] LABS: Glucose,Whole Blood 157 mg/dL (70-110)
[2024-01-14] MEDS: INSULIN ASPART (NovoLOG) 100 UNIT/ML VIAL SQ SCH (12:10)
--- NOTE | 2024-01-14 12:13 | P.PN ---
Subjective Progress Note Date: 01/14/24 Principal diagnosis: Acute on chronic hypoxic and hypercapnic respiratory failure secondary to acute exacerbation of severe COPD Patient is a 53-year-old female with past medical history significant for COPD, ventilator dependent respiratory failure with previous tracheostomy and PEG tube, HIV on Biktarvy. In July, she had a prolonged stay in the intensive care unit, she was intubated and placed on the mechanical ventilator. Eventually required tracheostomy and PEG tube. Subsequently, the patient was decannulated. Has had frequent hospitalizations since then, for acute COPD exacerbation; in fact, she just was discharged yesterday for the same. She was denied for noninvasive BiPAP at home. Brought in by EMS early this morning in acute respiratory distress. I did speak to the provider, who states the patient was in severe respiratory distress. Audible wheezing. Not moving much air and was obtunded. Briefly trialed on BiPAP. She was ultimately intubated by the ER provider. Patient is currently being evaluated in in trauma bay 2. Current ventilator settings include assist-control, respiratory rate 24, tidal volume 350, FiO2 100%, PEEP of 5. ABGs done in the settings PaO2 greater than 420, pCO2 87, pH of 7.28. Rate was increased to 28. FiO2 dropped to 40%. She is not very well sedated, fighting the ventilator. Currently, propofol is being titrated up to 50 mcg/kg/min. Peak pressures are elevated at 38, static pressure 22. Significant airway resistance. She has been started on bronchodilators. No endotracheal secretions. No reported aspiration events. Chest x-ray showing a proximal ET tube, that will have to be advanced at least 3 cm. Nasogastric tube courses below the diaphragm. No obvious focal infiltrates or pneumonia. Hyperinflation consistent with COPD. CBC unremarkable. No leukocytosis. CMP: Sodium 132, potassium 3.8, chloride 87, serum bicarb 38, BUN 23, creatinine 0.39, glucose 115. Troponin 0.025. NT proBNP 474. EKG: sinus tachycardia, rate 133 bpm, no obvious acute ischemic changes. Blood pressures remain stable. Bolused one liter normal saline following intubation. Not requiring any vasopressors. Afebrile. She will be admitted to the intensive care unit once bed available. Seen and examined today on 01/12/2024, patient is in the ICU, intubated and mechanically ventilated, I saw her yesterday on consultation when she was in the ER. Patient is now on assist-control rate of 20, tidal volume 325 FiO2 35% and PEEP of 5 ABG showed a pO2 of 88 pCO2 60, pH of 7.44, hence no changes were made in her ventilator settings. Remain on the same vent settings. Patient is requiring propofol at 70 mcg/kg/min, she is also now on Rocephin and vancomycin. Patient did have positive blood cultures, however uncertain whether this is a contamination or true MRSA infection hence empirically she is on Rocephin and vancomycin for now. Chest x-ray showed COPD, no evidence of infiltrates in both lungs. WBC count is 6.9 hemoglobin 11.9 basic metabolic profile is normal renal profile is normal blood cultures preliminary report gram-positive cocci in clusters, could be a contamination, final identification is pending patient remains on bronchodilators and steroids, patient remains on GI DVT prophylaxis and she is on enteral nutrition/for nutritional support clearly the patient is not quite ready to be weaned and extubated considering her underlying COPD will be extremely difficult and a challenge to extubate this patient. In the past patient required tracheostomy and PEG tube placement Patient was seen and examined today on 01/13/2024, remains in the ICU intubated and mechanically ventilated. She is on assist-control rate of 20 tidal volume 325 FiO2 35% PEEP of 5 ABG showed a pO2 of 88 pCO2 60 pH of 7.41. Chest x-ray showed no evidence of active disease, however the endotracheal tube needs to be advanced down about 3 cm. Patient is on propofol at 75 mcg/kg/min, I plan to transition to Precedex, awaken the patient, and check weaning parameters even possibly consider a weaning trial on this patient today. WBC count is 5.9 hemoglobin 11.2 basic metabolic profile is normal, renal profile is normal blood sugar is 141 Patient was reevaluated today on 01/14/2024, remains intubated mechanically ventilated, patient is still in the ICU, her ventilator settings are assist- control rate 20 tidal volume 325 FiO2 35% and PEEP of 5 ABG showed a pO2 of 66 pCO2 of 63 pH of 7.37 patient required more sedation yesterday, she is now on propofol at 70 mcg/kg/min she is also on fentanyl at 1.5 mg/kg/h, IV fluid running at 75 cc/h enteral feeding was initiated via orogastric tube, remains on Rocephin empirically. Chest x-ray showed no evidence of pneumonia. Patient was seen by infectious disease on consultation as she has history of HIV infection. WBC count is 5.6 hemoglobin is 12 platelets are 317, basic metabolic profile is normal bicarb is 37 BUN is 28 creatinine 0.36 vancomycin has been discontinued as it turned out to have contaminated blood cultures Objective - Vital Signs Vital signs: Vital Signs Temp 97.6 F 01/14/24 09:00 Pulse 67 01/14/24 11:00 Resp 20 01/14/24 11:00 BP 118/77 01/14/24 10:00 Pulse Ox 93 L 01/14/24 11:00 FiO2 35 01/14/24 11:19 Intake & Output 01/13/24 01/14/24 01/14/24 18:59 06:59 18:59 Intake Total 2677.124 4728.480 605.934 Output Total 1165 790 155 Balance 451.486 854.480 450.934 Weight 61.2 kg 61.2 kg Intake: IV 1271 936 390 .9NS Pressure Bag 21 36 15 Potassium Chloride 20 meq 100 In Water For Injection 1 100ml.bag @ 50 mls/hr IVPB ONCE [facility] Rx#: [id number] Sodium Chloride 0.9% 1, 900 900 375 000 ml @ 75 mls/hr IV . [id number] [facility] Rx#:[id number] Vancomycin 1,000 mg In 250 Sodium Chloride 0.9% 250 ml @ 125 mls/hr IVPB Q8H [facility] Rx#:[id number] Intake, IV Titration 305.486 378.480 85.934 Amount Clevidipine Butyrate 25 4.967 mg In Empty Bag 1 bag @ 1 MG/HR 2 mls/hr IV .Q24H [facility] Rx#:[id number] Dexmedetomidine/0.9% NaCl 28.077 (Pmx) 400 mcg In Empty Bag 1 bag @ 0.2 MCG/KG/HR 3.06 mls/hr IV .Q24H [facility] Rx#:[id number] cefTRIAXone 1 gm In 100 Sodium Chloride 0.9% 50 ml @ 100 mls/hr IVPB Q24HR [facility] Rx#:[id number] fentaNYL (PF). 1,000 mcg 46.538 27.846 In Sodium Chloride 0.9% 80 ml @ 0.5 MCG/KG/HR 3. 06 mls/hr IV .Q24H [facility] Rx #:[id number] propofoL 1,000 mg In 172.442 331.942 58.088 Empty Bag 1 bag @ 15 MCG/ KG/MIN 5.715 mls/hr IV . [id number] [facility] Rx#:[id number] Tube Feeding 40 240 100 Other 90 30 Output: Gastric Drainage 150 Urine 1015 790 155 Other: Voiding Method Indwelling Catheter Indwelling Catheter Indwelling Catheter ABP, PAP, CO, CI - Last Documented Arterial Blood Pressure 118/52 - Exam GENERAL EXAM: Revealed 53-year-old female intubated mechanically ventilated sedated, on propofol., And fentanyl Head is atraumatic, normocephalic, endotracheal tube is intact orogastric tube is intact EYES: Normal reaction of pupils, equal size. NOSE: Clear with pink turbinates. THROAT: No erythema or exudates. NECK: No masses, no JVD. CHEST: No chest wall deformity. LUNGS: Diminished breath sound bilaterally no crackles rhonchi or wheezes CVS: Distant S1-S2, no S3 gallop, no murmur ABDOMEN: No hepatosplenomegaly, active bowel sounds, no guarding or rigidity. SKIN: No rashes CENTRAL NERVOUS SYSTEM: Patient is intubated sedated,, unable to assess EXTREMITIES: No clubbing edema or cyanosis. Psychiatric: Could not assess - Labs CBC & Chem 7: 01/14/24 04:47 01/14/24 04:47 Labs: Abnormal Lab Results - Last 24 Hours (Table) 01/13/24 01/14/24 01/14/24 Range/Units 12:15 04:47 04:47 Lymphocytes # 0.3 L (1.0-4.8) k/uL ABG pCO2 65 H (35-45) mmHg ABG pO2 77 L (83-108) mmHg ABG HCO3 37 H (21-25) mmol/L ABG Total CO2 39 H (19-24) mmol/L ABG O2 Saturation (94-97) % Carbon Dioxide (22-30) mmol/L BUN (7-17) mg/dL Creatinine 0.36 L (0.52-1.04) mg/dL Glucose (74-99) mg/dL POC Glucose (mg/dL) (70-110) mg/dL 01/14/24 01/14/24 01/14/24 Range/Units 04:47 04:48 12:08 Lymphocytes # (1.0-4.8) k/uL ABG pCO2 63 H (35-45) mmHg ABG pO2 66 L (83-108) mmHg ABG HCO3 37 H (21-25) mmol/L ABG Total CO2 39 H (19-24) mmol/L ABG O2 Saturation 92.2 L (94-97) % Carbon Dioxide 37 H (22-30) mmol/L BUN 28 H (7-17) mg/dL Creatinine (0.52-1.04) mg/dL Glucose 126 H (74-99) mg/dL POC Glucose (mg/dL) 157 H (70-110) mg/dL Microbiology - Last 24 Hours (Table) 01/11/24 01:40 Blood Culture Gram Stain - Final Blood Blood Culture - Final Staphylococcus epidermidis Molecular ID 01/12/24 06:52 Blood Culture - Preliminary Blood 01/11/24 08:36 Gram Stain - Final Sputum Sputum Culture - Final Assessment and Plan Assessment: Impression: Acute on chronic hypoxic respiratory failure requiring intubation mechanical ventilation Acute exacerbation of severe COPD/end-stage Bacteremia, possible contamination, final cultures of the blood or pending, however the patient is now on vancomycin and Rocephin empirically History of ventilator dependent respiratory failure with previous tracheostomy and PEG tube insertion status post decannulation Very severe underlying COPD with an FEV1 22% of predicted Former tobacco dependence Acquired immunodeficiency syndrome, maintained on Biktarvy, most recent CD4 count 83 History of left upper lobe lung nodule, previously measuring 9 mm in size, being monitored on outpatient basis Recommendation: Continue ventilatory support, failed weaning trial yesterday on Precedex Knowing this patient from the past, she will most likely require another tr acheostomy and PEG tube placement because she will definitely be a failure to wean, I would strongly recommend early tracheostomy and PEG tube placement and ECF placed Continue nutritional support Continue GI DVT prophylaxis Continue bronchodilators Continue Solu-Medrol. Patient is critically ill Critical care time is over 30 minutes Will continue to monitor in the ICU Time with Patient: Greater than 30
--- NOTE | 2024-01-14 15:02 | P.PN ---
Subjective Progress Note Date: 01/14/24 This is a patient 53-year-old female who was just discharged yesterday as she was adamant about going home and continued to await for authorization to have BiPAP in the home and ultimately got home having worsening shortness of breath and was brought back here via EMS having worsening respiratory status and respiratory distress. Patient follows with Dr. Harvey in the outpatient setting with a past medical history of COPD, chronic respiratory failure, HIV. Patient is a former smoker and also known to have alcohol abuse history. Labs reviewed on admission with a white count of 9.9, hemoglobin 12.4, platelets 220, ABG showed a pH of 7.33, pCO2 is 72, pO2 112, bicarb 38, total CO2 41 and oxygen saturation 98.6. Sodium level mildly low at 132 with a potassium of 3.8, chloride is low at 87 carbon dioxide 38, BUN 23 with a creatinine of 0.39. Lactic acid not elevated at 1.4, calcium is 7.7 and magnesium 2.1. Patient did have a BNP drawn which was 474 and troponin was 0.025. Drug screening also d etected benzos and opiates as patient was just recently hospitalized and discharged. Patient x-ray shows chronic changes without evidence of acute pulmonary disease. Patient was obtunded at the time of ED admission and CT brain was performed showing no acute hemorrhage, hydrocephalus or mass effect, EKG showed sinus tachycardia and patient was admitted for COPD exacerbation and also requiring mechanical ventilation and currently awaiting an ICU bed. 01/12/2024 Patient is currently intubated and sedated in the intensive care unit. She is admitted for severe COPD. Remains on IV vancomycin and IV Rocephin there is concern for possible cultures revealing staph epi which will be repeated today. This is likely a contaminant species. Her blood counts are completely unremarkable. Sodium level of 135, 1 of 20, creatinine of 0.35, blood glucose of 130s. Her ABGs today reveal a pCO2 of 41, HCO3 of 43, total oxygen saturation of 97.8 and a pH of 7.44, pCO2 of 60. Procalcitonin level is negative at 0.05. Patient has significantly improved 131/81. 01/13/2024 Patient is evaluated today in the intensive care unit she is currently intubated and sedated. FiO2 of 35%. Patient remains on IV vancomycin and IV ceftriaxone. Her blood cultures are showing staph epi we did consult ID and repeat the blood cultures although this is likely a contaminant species. Patient had a chest x- ray today which reveals endotracheal tube consider advancement for improved position there is no evidence of pleural effusion or focal consolidation or pneumothorax. Stable level of 135, potassium of 3.8, CO2 of 37, chloride of 82, BUN of 25, creatinine of 0.41, glucose of 144, magnesium of 2.4. Remains afebrile, heart rate of 62, blood pressure 139/89. 01/14/2024 Patient remains in the ICU intubate and sedated. Started on tube feeds. Chest xray showing no consolidation or pleural effusion. Did not tolerating sedation holiday yesterday. Continues on IV rocephin, IV fentanyl, IV propofol, IV solume drol. Sodium level 138, potassium 4.2, BUN 28, creatinine 0.36, white blood cell count 5.6, hgb 12.0. Blood pressure 124/72. REVIEW OF SYSTEMS: Unable to assess as patient has been intubated and is on propofol for sedation PHYSICAL EXAMINATION: GENERAL: The patient is a 53-year-old female who appears elderly, ill appearing, currently on mechanical ventilation with an FiO2 of 35% PEEP is 5, sedated and maintained on propofol HEENT: Pupils are round and equally reacting to light. EOMI. No scleral icterus. No conjunctival pallor. Normocephalic, atraumatic. No pharyngeal erythema. No thyromegaly. CARDIOVASCULAR: S1 and S2 muffled, mildly tachycardic PULMONARY: Severely diminished breath sounds bilaterally with coarse breath sound and scattered rhonchi noted, no accessory muscle use noted ABDOMEN: Soft, thin, nontender, nondistended, normoactive bowel sounds. No palpable organomegaly. MUSCULOSKELETAL: No joint swelling or deformity. EXTREMITIES: No cyanosis, clubbing, or pedal edema. NEUROLOGICAL: Gross neurological examination did not reveal any focal deficits. Unable to completely assess as patient is sedated on propofol SKIN: No rashes. Assessment: Acute on chronic hypercapnic hypoxemic respiratory failure secondary to COPD exacerbation with acute respiratory failure and being obtunded requiring mechanical ventilation on 01/11/2024 History of severe COPD and chronically wears 4 L outpatient, FEV1 is 22% Staph EPI bacteremia likely contaminent species. HIV on Biktarvy History of depression History of CVA/TIA History of anxiety/Depression/Panic disorder Continued ongoing nicotine dependence Hx of prolonged intubation requiring trach/peg status post reversal. History of alcoholism GI prophylaxis DVT prophylaxis Full Code Plan: Pulmonary was following attempting to have the patient qualified for BiPAP at home as it is felt she would highly benefit from this and possibly minimize frequent rehospitalizations although did not qualify. Patient chronically wears 4 L outpatient and went home and was noted to have severe respiratory distress and brought back to the hospital. Patient was obtunded and minimally responsive and ER physician decided to intubate the patient. Patient is currently maintained on mechanical ventilation with an FiO2 of 35% and PEEP is 5. Patient remains in the ICU at this time. Patient is maintained on [id number] DuoNebs along with IV steroids and empiric antibiotics per pulmonary Overall prognosis is extremely guarded given her severe COPD and HIV history The impression and plan of care has been dictated by Vangie Barton Nurse Practitioner as directed. Dr. Dann MD I have performed a history and physical examination and medical decision making of this patient, discussed the same with the dictator, and agree with the dictators assessment and plan as written, documented as a scribe. Based on total visit time, I have performed more than 50% of this visit. Objective - Vital Signs Vital signs: Vital Signs Temp 97.6 F 01/14/24 09:00 Pulse 55 L 01/14/24 09:00 Resp 20 01/14/24 09:00 BP 99/65 01/14/24 07:00 Pulse Ox 97 01/14/24 09:00 FiO2 35 01/14/24 08:23 Intake & Output 01/13/24 01/14/24 01/14/24 18:59 06:59 18:59 Intake Total 9257.915 7169.480 351.846 Output Total 1165 790 90 Balance 451.486 854.480 261.846 Weight 61.2 kg 61.2 kg Intake: IV 1271 936 234 .9NS Pressure Bag 21 36 9 Potassium Chloride 20 meq 100 In Water For Injection 1 100ml.bag @ 50 mls/hr IVPB ONCE STA Rx#: [id number] Sodium Chloride 0.9% 1, 900 900 225 000 ml @ 75 mls/hr IV . [id number] [facility] Rx#:[id number] Vancomycin 1,000 mg In 250 Sodium Chloride 0.9% 250 ml @ 125 mls/hr IVPB Q8H [facility] Rx#:[id number] Intake, IV Titration 305.486 378.480 27.846 Amount Clevidipine Butyrate 25 4.967 mg In Empty Bag 1 bag @ 1 MG/HR 2 mls/hr IV .Q24H [facility] Rx#:[id number] Dexmedetomidine/0.9% NaCl 28.077 (Pmx) 400 mcg In Empty Bag 1 bag @ 0.2 MCG/KG/HR 3.06 mls/hr IV .Q24H [facility] Rx#:[id number] cefTRIAXone 1 gm In 100 Sodium Chloride 0.9% 50 ml @ 100 mls/hr IVPB Q24HR [facility] Rx#:[id number] fentaNYL (PF). 1,000 mcg 46.538 27.846 In Sodium Chloride 0.9% 80 ml @ 0.5 MCG/KG/HR 3. 06 mls/hr IV .Q24H [facility] Rx #:[id number] propofoL 1,000 mg In 172.442 331.942 Empty Bag 1 bag @ 15 MCG/ KG/MIN 5.715 mls/hr IV . [id number] [facility] Rx#:[id number] Tube Feeding 40 240 60 Other 90 30 Output: Gastric Drainage 150 Urine 1015 790 90 Other: Voiding Method Indwelling Catheter Indwelling Catheter ABP, PAP, CO, CI - Last Documented Arterial Blood Pressure 110/75 - Labs CBC & Chem 7: 01/14/24 04:47 01/14/24 04:47 Labs: Abnormal Lab Results - Last 24 Hours (Table) 01/13/24 01/13/24 01/14/24 Range/Units 05:07 12:15 04:47 Lymphocytes # (1.0-4.8) k/uL ABG pCO2 65 H (35-45) mmHg ABG pO2 77 L (83-108) mmHg ABG HCO3 37 H (21-25) mmol/L ABG Total CO2 39 H (19-24) mmol/L ABG O2 Saturation (94-97) % Carbon Dioxide (22-30) mmol/L BUN (7-17) mg/dL Creatinine 0.36 L (0.52-1.04) mg/dL Glucose (74-99) mg/dL Magnesium 2.4 H (1.6-2.3) mg/dL 01/14/24 01/14/24 01/14/24 Range/Units 04:47 04:47 04:48 Lymphocytes # 0.3 L (1.0-4.8) k/uL ABG pCO2 63 H (35-45) mmHg ABG pO2 66 L (83-108) mmHg ABG HCO3 37 H (21-25) mmol/L ABG Total CO2 39 H (19-24) mmol/L ABG O2 Saturation 92.2 L (94-97) % Carbon Dioxide 37 H (22-30) mmol/L BUN 28 H (7-17) mg/dL Creatinine (0.52-1.04) mg/dL Glucose 126 H (74-99) mg/dL Magnesium (1.6-2.3) mg/dL Microbiology - Last 24 Hours (Table) 01/12/24 06:52 Blood Culture - Preliminary Blood 01/11/24 08:36 Gram Stain - Final Sputum Sputum Culture - Final 01/11/24 01:40 Blood Culture Gram Stain - Preliminary Blood Blood Culture - Preliminary Staphylococcus epidermidis Molecular ID Assessment and Plan Time with Patient: Less than 30
--- NOTE | 2024-01-14 16:36 | P.PN ---
Subjective Progress Note Date: 01/14/24 Principal diagnosis: Reason for follow-up is HIV and positive blood culture Patient is a 53-year female past medical history significant for HIV COPD admitted to the hospital with worsening respiratory status requiring intubation did have a positive blood culture with staph epi prompted this consultation. On today's evaluation that is 01/14/2024, Patient is afebrile patient is currently on the ventilator FiO2 is down to 35% no significant purulent secretions through the ET diarrhea or any other changes reported by nursing staff. Patient white count is 5.6, creatinine 0.3, repeat blood culture remains to be negative Objective - Vital Signs Vital signs: Vital Signs Temp 97.6 F 01/14/24 12:00 Pulse 124 H 01/14/24 14:00 Resp 14 01/14/24 14:00 BP 124/72 01/14/24 14:00 Pulse Ox 92 L 01/14/24 14:00 FiO2 35 01/14/24 12:00 Intake & Output 01/13/24 01/14/24 01/14/24 18:59 06:59 18:59 Intake Total 1331.142 4241.480 991.849 Output Total 1165 790 260 Balance 451.486 854.480 731.849 Weight 61.2 kg 61.2 kg Intake: IV 1271 936 624 .9NS Pressure Bag 21 36 24 Potassium Chloride 20 meq 100 In Water For Injection 1 100ml.bag @ 50 mls/hr IVPB ONCE STA Rx#: [id number] Sodium Chloride 0.9% 1, 900 900 600 000 ml @ 75 mls/hr IV . [id number] [facility] Rx#:[id number] Vancomycin 1,000 mg In 250 Sodium Chloride 0.9% 250 ml @ 125 mls/hr IVPB Q8H [facility] Rx#:[id number] Intake, IV Titration 305.486 378.480 147.849 Amount Clevidipine Butyrate 25 4.967 mg In Empty Bag 1 bag @ 1 MG/HR 2 mls/hr IV .Q24H [facility] Rx#:[id number] Dexmedetomidine/0.9% NaCl 28.077 (Pmx) 400 mcg In Empty Bag 1 bag @ 0.2 MCG/KG/HR 3.06 mls/hr IV .Q24H [facility] Rx#:[id number] cefTRIAXone 1 gm In 100 Sodium Chloride 0.9% 50 ml @ 100 mls/hr IVPB Q24HR [facility] Rx#:[id number] fentaNYL (PF). 1,000 mcg 46.538 27.846 In Sodium Chloride 0.9% 80 ml @ 0.5 MCG/KG/HR 3. 06 mls/hr IV .Q24H [facility] Rx #:[id number] propofoL 1,000 mg In 172.442 331.942 120.003 Empty Bag 1 bag @ 15 MCG/ KG/MIN 5.715 mls/hr IV . [id number] [facility] Rx#:[id number] Tube Feeding 40 240 160 Other 90 60 Output: Gastric Drainage 150 Urine 1015 790 260 Other: Voiding Method Indwelling Catheter Indwelling Catheter Indwelling Catheter ABP, PAP, CO, CI - Last Documented Arterial Blood Pressure 123/52 - Exam GENERAL DESCRIPTION: Elderly female intubated on the vent RESPIRATORY SYSTEM: Unlabored breathing , decreased breath sounds at bases HEART: S1 S2 regular rate and rhythm , ABDOMEN: Soft , no tenderness EXTREMITIES: No edema feet - Labs CBC & Chem 7: 01/14/24 04:47 01/14/24 04:47 Labs: Abnormal Lab Results - Last 24 Hours (Table) 01/14/24 01/14/24 01/14/24 Range/Units 04:47 04:47 04:47 Lymphocytes # 0.3 L (1.0-4.8) k/uL ABG pCO2 (35-45) mmHg ABG pO2 (83-108) mmHg ABG HCO3 (21-25) mmol/L ABG Total CO2 (19-24) mmol/L ABG O2 Saturation (94-97) % Carbon Dioxide 37 H (22-30) mmol/L BUN 28 H (7-17) mg/dL Creatinine 0.36 L (0.52-1.04) mg/dL Glucose 126 H (74-99) mg/dL POC Glucose (mg/dL) (70-110) mg/dL 01/14/24 01/14/24 Range/Units 04:48 12:08 Lymphocytes # (1.0-4.8) k/uL ABG pCO2 63 H (35-45) mmHg ABG pO2 66 L (83-108) mmHg ABG HCO3 37 H (21-25) mmol/L ABG Total CO2 39 H (19-24) mmol/L ABG O2 Saturation 92.2 L (94-97) % Carbon Dioxide (22-30) mmol/L BUN (7-17) mg/dL Creatinine (0.52-1.04) mg/dL Glucose (74-99) mg/dL POC Glucose (mg/dL) 157 H (70-110) mg/dL Microbiology - Last 24 Hours (Table) 01/12/24 06:52 Blood Culture - Preliminary Blood 01/11/24 01:40 Blood Culture Gram Stain - Final Blood Blood Culture - Final Staphylococcus epidermidis Molecular ID Assessment and Plan (1) Positive blood culture Current Visit: Yes Status: Acute Code(s): R78.81 - BACTEREMIA SNOMED Code(s): 996705502 (2) HIV disease Current Visit: No Status: Acute Code(s): B20 - HUMAN IMMUNODEFICIENCY VIRUS [HIV] DISEASE SNOMED Code(s): 39775556 Plan: 1patient with a positive blood culture with staph epi which is usually discrete terence and more likely representing a skin contamination as the patient did not have any evidence of cellulitis or open wound and staph epi not a common bacteria to cause any respiratory infection patient did have a normal chest x- ray and normal procalcitonin. 2patient to continue with Biktarvy for her HIV. 3repeat blood culture has been negative and will monitor closely off vancomycin Dictation was produced using [employer] dictation software. please excuse any grammatical, word or spelling errors. Time with Patient: Less than 30
[2024-01-14 17:44] LABS: Glucose,Whole Blood 149 mg/dL (70-110)
[2024-01-14 23:50] LABS: Glucose,Whole Blood 153 mg/dL (70-110)
[2024-01-15 04:23] LABS: African American GFR (CKD) >90 (>60 ml/min/1.73 sqM); Non-African American GFR(CKD) >90 (>60 ml/min/1.73 sqM)
[2024-01-15 05:30] LABS: ABG Base Excess 9.3 mmol/L; ABG HCO3 35 mmol/L (21-25); ABG Oxygen Saturation 97.7 % (94-97); ABG PCO2 55 mmHg (35-45); ABG PH 7.42 (7.35-7.45); ABG PO2 93 mmHg (83-108); ABG TCO2 37 mmol/L (19-24); Allen Test Performed? Yes
[2024-01-15 06:54] LABS: Anion Gap -1 mmol/L; Blood Urea Nitrogen 24 mg/dL (7-17); Carbon Dioxide 36 mmol/L (22-30); Chloride 102 mmol/L (98-107); Glucose 130 mg/dL (74-99); Sodium 137 mmol/L (137-145)
[2024-01-15 07:04] LABS: Basophils % (A) 0 %; Eosinophils % (A) 0 %; HCT 33.8 % (34.0-46.0); HGB 10.5 gm/dL (11.4-16.0); Hypochromasia Slight; Lymphocytes # (A) 0.5 k/uL (1.0-4.8); Lymphocytes % (A) 10 %; MCH 30.4 pg (25.0-35.0); MCHC 31.1 g/dL (31.0-37.0); MCV 97.9 fL (80.0-100.0); Mean Platelet Volume 7.8; Monocytes # (A) 0.3 k/uL (0-1.0); Monocytes % (A) 7 %; Neutrophils % (A) 83 %; Platelet Count 272 k/uL (150-450); RBC 3.45 m/uL (3.80-5.40); RDW 15.3 % (11.5-15.5); WBC 4.9 k/uL (3.8-10.6)
--- NOTE | 2024-01-15 09:53 | XR ---
EXAMINATION TYPE: XR chest 1V portable DATE OF EXAM: 01/15/2024 COMPARISON: 01/14/2024 INDICATION: Assess lungs difficulty breathing TECHNIQUE: Single frontal view of the chest is obtained. FINDINGS: The heart size is normal. The pulmonary vasculature is normal. The lungs are clear. Endotracheal tube tip is 3.7 cm above the angel. Nasogastric tube tip is within the abdomen. IMPRESSION: 1. No acute pulmonary process. 2. Lines and catheters discussed above. [facility], , 01/15/2024 9:50 AM
[2024-01-15] MEDS: DEXMEDETOMIDINE/0.9% NACL(PMX) 400 MCG in EMPTY BAG 1 BAG IV SCH (10:45)
--- NOTE | 2024-01-15 11:48 | P.PN ---
Subjective Progress Note Date: 01/15/24 Patient is a 53-year-old female with past medical history significant for COPD, ventilator dependent respiratory failure with previous tracheostomy and PEG tube, HIV on Biktarvy. In July, she had a prolonged stay in the intensive care unit, she was intubated and placed on the mechanical ventilator. Eventually required tracheostomy and PEG tube. Subsequently, the patient was decannulated. Has had frequent hospitalizations since then, for acute COPD exacerbation; in fact, she just was discharged yesterday for the same. She was denied for noninvasive BiPAP at home. Brought in by EMS early this morning in acute respiratory distress. I did speak to the provider, who states the patient was in severe respiratory distress. Audible wheezing. Not moving much air and was obtunded. Briefly trialed on BiPAP. She was ultimately intubated by the ER provider. Patient is currently being evaluated in in trauma bay 2. Current ventilator settings include assist-control, respiratory rate 24, tidal volume 350, FiO2 100%, PEEP of 5. ABGs done in the settings PaO2 greater than 420, pCO2 87, pH of 7.28. Rate was increased to 28. FiO2 dropped to 40%. She is not very well sedated, fighting the ventilator. Currently, propofol is being titrated up to 50 mcg/kg/min. Peak pressures are elevated at 38, static pressure 22. Significant airway resistance. She has been started on bronchodilators. No endotracheal secretions. No reported aspiration events. Chest x-ray showing a proximal ET tube, that will have to be advanced at least 3 cm. Nasogastric tube courses below the diaphragm. No obvious focal infiltrates or pneumonia. Hyperinflation consistent with COPD. CBC unremarkable. No leukocytosis. CMP: Sodium 132, potassium 3.8, chloride 87, serum bicarb 38, BUN 23, creatinine 0.39, glucose 115. Troponin 0.025. NT proBNP 474. EKG: sinus tachycardia, rate 133 bpm, no obvious acute ischemic changes. Blood pressures remain stable. Bolused one liter normal saline following intubation. Not requiring any vasopressors. Afebrile. She will be admitted to the intensive care unit once bed available. Seen and examined today on 01/12/2024, patient is in the ICU, intubated and mec hanically ventilated, I saw her yesterday on consultation when she was in the ER. Patient is now on assist-control rate of 20, tidal volume 325 FiO2 35% and PEEP of 5 ABG showed a pO2 of 88 pCO2 60, pH of 7.44, hence no changes were made in her ventilator settings. Remain on the same vent settings. Patient is requiring propofol at 70 mcg/kg/min, she is also now on Rocephin and vancomycin. Patient did have positive blood cultures, however uncertain whether this is a contamination or true MRSA infection hence empirically she is on Rocephin and vancomycin for now. Chest x-ray showed COPD, no evidence of infiltrates in both lungs. WBC count is 6.9 hemoglobin 11.9 basic metabolic profile is normal renal profile is normal blood cultures preliminary report gram-positive cocci in clusters, could be a contamination, final identification is pending patient remains on bronchodilators and steroids, patient remains on GI DVT prophylaxis and she is on enteral nutrition/for nutritional support clearly the patient is not quite ready to be weaned and extubated considering her underlying COPD will be extremely difficult and a challenge to extubate this patient. In the past patient required tracheostomy and PEG tube placement Patient was seen and examined today on 01/13/2024, remains in the ICU intubated and mechanically ventilated. She is on assist-control rate of 20 tidal volume 325 FiO2 35% PEEP of 5 ABG showed a pO2 of 88 pCO2 60 pH of 7.41. Chest x-ray showed no evidence of active disease, however the endotracheal tube needs to be advanced down about 3 cm. Patient is on propofol at 75 mcg/kg/min, I plan to transition to Precedex, awaken the patient, and check weaning parameters even possibly consider a weaning trial on this patient today. WBC count is 5.9 hemoglobin 11.2 basic metabolic profile is normal, renal profile is normal blood sugar is 141 Patient was reevaluated today on 01/14/2024, remains intubated mechanically ventilated, patient is still in the ICU, her ventilator settings are assist- control rate 20 tidal volume 325 FiO2 35% and PEEP of 5 ABG showed a pO2 of 66 pCO2 of 63 pH of 7.37 patient required more sedation yesterday, she is now on propofol at 70 mcg/kg/min she is also on fentanyl at 1.5 mg/kg/h, IV fluid running at 75 cc/h enteral feeding was initiated via orogastric tube, remains on Rocephin empirically. Chest x-ray showed no evidence of pneumonia. Patient was seen by infectious disease on consultation as she has history of HIV infection. WBC count is 5.6 hemoglobin is 12 platelets are 317, basic metabolic profile is normal bicarb is 37 BUN is 28 creatinine 0.36 vancomycin has been discontinued as it turned out to have contaminated blood cultures The patient is seen today January 15, 2024 in follow-up in the intensive care unit. She is currently intubated on the mechanical ventilator and assist- control mode at a rate of 20, tidal volume 325, FiO2 35% and a PEEP of 5. She is requiring sedation with propofol at 60 mcg/kg/min. She is on fentanyl drip at 2 mcg/kg/h. She is on Cleviprex at 8 mg/h. Normal saline at 75 mL/h. She remains on DuoNeb inhalations, Pulmicort and Perforomist inhalations, IV Solu- Medrol. Antibiotics in the form of ceftriaxone. Chest x-ray reveals no acute pulmonary process. White count 4.9. Hemoglobin 10.5. Platelets 272. Sodium 137. Potassium 4.0. Bicarb 36. BUN 24. Creatinine 0.37. Glucose 130. She is being nourished with vital AF at 20 mL/h which is goal. Objective - Vital Signs Vital signs: Vital Signs Temp 97.7 F 01/15/24 08:00 Pulse 133 H 01/15/24 11:24 Resp 14 01/15/24 11:24 BP 124/71 01/15/24 11:00 Pulse Ox 94 L 01/15/24 10:00 FiO2 35 01/15/24 11:01 Intake & Output 01/14/24 01/15/24 01/15/24 18:59 06:59 18:59 Intake Total 1986.835 3856.381 753.241 Output Total 430 520 370 Balance 1160.487 920.381 383.241 Weight 58.2 kg Intake: IV 936 936 390 .9NS Pressure Bag 36 36 15 Sodium Chloride 0.9% 1, 900 900 375 000 ml @ 75 mls/hr IV . [id number] [facility] Rx#:[id number] Intake, IV Titration 324.487 264.381 253.241 Amount Clevidipine Butyrate 25 3.867 mg In Empty Bag 1 bag @ 1 MG/HR 2 mls/hr IV .Q24H [facility] Rx#:[id number] Dexmedetomidine/0.9% NaCl 3.274 (Pmx) 400 mcg In Empty Bag 1 bag @ 0.2 MCG/KG/HR 2.91 mls/hr IV .Q24H [facility] Rx#:[id number] fentaNYL (PF). 1,000 mcg 109.548 66.555 94.503 In Sodium Chloride 0.9% 80 ml @ 0.5 MCG/KG/HR 3. 06 mls/hr IV .Q24H [facility] Rx #:[id number] propofoL 1,000 mg In 214.939 197.826 151.597 Empty Bag 1 bag @ 15 MCG/ KG/MIN 5.715 mls/hr IV . [id number] [facility] Rx#:[id number] Tube Feeding 240 240 80 Other 90 30 Output: Urine 430 520 370 Other: Voiding Method Indwelling Catheter Indwelling Catheter ABP, PAP, CO, CI - Last Documented Arterial Blood Pressure 155/78 - Exam GENERAL EXAM: Revealed a intubated, sedated 53-year-old female, mechanically ventilated, in no acute distress. Head is atraumatic, normocephalic, endotracheal tube is intact orogastric tube is intact EYES: Normal reaction of pupils, equal size. NOSE: Clear with pink turbinates. THROAT: No erythema or exudates. NECK: No masses, no JVD. CHEST: No chest wall deformity. LUNGS: Diminished breath sound bilaterally no crackles rhonchi or wheezes CVS: Distant S1-S2, no S3 gallop, no murmur ABDOMEN: No hepatosplenomegaly, active bowel sounds, no guarding or rigidity. SKIN: No rashes CENTRAL NERVOUS SYSTEM: Patient is intubated sedated, unable to assess EXTREMITIES: No clubbing edema or cyanosis. Psychiatric: Could not assess - Labs CBC & Chem 7: 01/15/24 04:00 01/15/24 04:00 Labs: Abnormal Lab Results - Last 24 Hours (Table) 01/14/24 01/14/24 01/14/24 Range/Units 12:08 17:43 23:48 RBC (3.80-5.40) m/uL Hgb (11.4-16.0) gm/dL Hct (34.0-46.0) % Lymphocytes # (1.0-4.8) k/uL ABG pCO2 (35-45) mmHg ABG HCO3 (21-25) mmol/L ABG Total CO2 (19-24) mmol/L ABG O2 Saturation (94-97) % Hemoglobin (11.4-16.0) gm/dL Carbon Dioxide (22-30) mmol/L BUN (7-17) mg/dL Creatinine (0.52-1.04) mg/dL Glucose (74-99) mg/dL POC Glucose (mg/dL) 157 H 149 H 153 H (70-110) mg/dL Calcium (8.4-10.2) mg/dL 01/15/24 01/15/24 01/15/24 Range/Units 04:00 04:00 05:42 RBC 3.45 L (3.80-5.40) m/uL Hgb 10.5 L (11.4-16.0) gm/dL Hct 33.8 L (34.0-46.0) % Lymphocytes # 0.5 L (1.0-4.8) k/uL ABG pCO2 55 H (35-45) mmHg ABG HCO3 35 H (21-25) mmol/L ABG Total CO2 37 H (19-24) mmol/L ABG O2 Saturation 97.7 H (94-97) % Hemoglobin 10.9 L (11.4-16.0) gm/dL Carbon Dioxide 36 H (22-30) mmol/L BUN 24 H (7-17) mg/dL Creatinine 0.37 L (0.52-1.04) mg/dL Glucose 130 H (74-99) mg/dL POC Glucose (mg/dL) (70-110) mg/dL Calcium 8.0 L (8.4-10.2) mg/dL Microbiology - Last 24 Hours (Table) 01/12/24 06:52 Blood Culture - Preliminary Blood 01/11/24 01:40 Blood Culture Gram Stain - Final Blood Blood Culture - Final Staphylococcus epidermidis Molecular ID Assessment and Plan Assessment: Acute on chronic hypoxic respiratory failure requiring intubation mechanical ventilation Acute exacerbation of severe COPD/end-stage Bacteremia, possible contamination, final cultures of the blood or pending, however the patient is now on vancomycin and Rocephin empirically History of ventilator dependent respiratory failure with previous tracheostomy and PEG tube insertion status post decannulation Very severe underlying COPD with an FEV1 22% of predicted Former tobacco dependence Acquired immunodeficiency syndrome, maintained on Biktarvy, most recent CD4 count 83 History of left upper lobe lung nodule, previously measuring 9 mm in size, being monitored on outpatient basis Plan: The patient was seen and evaluated Chest x-ray, labs and medications reviewed Will give the patient a daily interruption of sedation and weaning trial May transition to Precedex from propofol if necessary Wean off fentanyl Continue bronchodilators, steroids We will continue to follow and make further recommendations based on her clinical status I have personally seen and examined the patient, performed the documentation and the assessment and plan as written. Number of minutes spent on the visit: 15.
[2024-01-15 12:07] LABS: ABG Base Excess 9.9 mmol/L; ABG HCO3 36 mmol/L (21-25); ABG Oxygen Saturation 92.1 % (94-97); ABG PCO2 55 mmHg (35-45); ABG PH 7.43 (7.35-7.45); ABG PO2 61 mmHg (83-108); ABG TCO2 38 mmol/L (19-24)
[2024-01-15 13:18] LABS: Glucose,Whole Blood 122 mg/dL (70-110)
[2024-01-15] MEDS: IPRATROPIUM-ALBUTEROL 3 ML NEB INHALATION SCH (16:38)
--- NOTE | 2024-01-16 02:46 | PN ---
PROGRESS NOTE DATE OF SERVICE: 01/15/2024 SUBJECTIVE: This is a 53-year-old woman, who was admitted with COPD acute exacerbation with Staph epi bacteremia, was on mechanical ventilation. The patient is improving significantly and Pulmonary is planning extubation today. The chest x-ray showed no pneumonia. The viral markers are negative. PAST MEDICAL HISTORY: Reviewed. REVIEW OF SYSTEMS: Not obtainable. CURRENT MEDICATIONS: Reviewed include Pulmicort. Dose and rest of medications reviewed. PHYSICAL EXAMINATION: VITAL SIGNS: Pulse is 102, blood pressure 123/83, respirations 20. HEENT: Conjunctivae normal. CARDIOVASCULAR: S1, S2. RESPIRATIONS: Bilateral scattered rhonchi and crackles. ABDOMEN: Soft. NERVOUS SYSTEM: Nonfocal. Vent settings are noted. ASSESSMENT: 1. Chronic obstructive pulmonary disease acute exacerbation, acute hypoxic hypercarbic respiratory failure. 2. Staph epi bacteremia. 3. HIV, on Biktarvy. 4. Depression. 5. Cerebrovascular accident, transient ischemic attack. 6. Multiple medical issues. RECOMMENDATIONS: Recommend to continue current management and continue symptomatic treatment. Otherwise, at this time I recommend closely follow with Pulmonary and Infectious Disease evaluation. Otherwise, repeat labs. Extubation per Pulmonary. Guarded prognosis. Further recommendations to follow. MMODL / IJN: [id number] /
[2024-01-16 04:47] LABS: Glucose,Whole Blood 132 mg/dL (70-110)
[2024-01-16 05:15] LABS: African American GFR (CKD) >90 (>60 ml/min/1.73 sqM); Blood Urea Nitrogen 13 mg/dL (7-17); Calcium 8.5 mg/dL (8.4-10.2); Chloride 94 mmol/L (98-107); Glucose 127 mg/dL (74-99); Non-African American GFR(CKD) >90 (>60 ml/min/1.73 sqM); Potassium 3.4 mmol/L (3.5-5.1); Sodium 135 mmol/L (137-145)
[2024-01-16 05:21] LABS: Anion Gap 4 mmol/L
[2024-01-16 05:26] LABS: Basophils # (A) 0.1 k/uL (0-0.2); Basophils % (A) 1 %; Eosinophils % (A) 0 %; HGB 12.9 gm/dL (11.4-16.0); Lymphocytes # (A) 0.6 k/uL (1.0-4.8); Lymphocytes % (A) 6 %; MCH 32.1 pg (25.0-35.0); MCHC 33.8 g/dL (31.0-37.0); MCV 94.9 fL (80.0-100.0); Mean Platelet Volume 7.2; Monocytes # (A) 0.5 k/uL (0-1.0); Monocytes % (A) 5 %; Neutrophils # (A) 8.8 k/uL (1.3-7.7); Neutrophils % (A) 88 %; Platelet Count 311 k/uL (150-450); RBC 4.01 m/uL (3.80-5.40); RDW 15.7 % (11.5-15.5)
[2024-01-16 05:29] LABS: Carbon Dioxide 37 mmol/L (22-30)
[2024-01-16] MEDS ORDERED: Potassium Replacement Protocol 1 EACH MISC MISCELLANE PRN (05:45)
[2024-01-16] MEDS: POTASSIUM CHLORIDE 20 MEQ in WATER FOR INJECTION 1 100ML.BAG IVPB SCH (06:20)
--- NOTE | 2024-01-16 08:58 | XR ---
EXAMINATION TYPE: XR chest 1V portable DATE OF EXAM: 01/16/2024 COMPARISON: 01/15/2024 INDICATION: Previous abnormal TECHNIQUE: Single frontal view of the chest is obtained. FINDINGS: The heart size is normal. The pulmonary vasculature is normal. No suspicious focal consolidations are evident. Endotracheal tube and nasogastric tube have been removed.. IMPRESSION: 1. No acute pulmonary process. [facility], , 01/16/2024 8:55 AM
--- NOTE | 2024-01-16 11:03 | P.PN ---
Subjective Progress Note Date: 01/16/24 Patient is a 53-year-old female with past medical history significant for COPD, ventilator dependent respiratory failure with previous tracheostomy and PEG tube, HIV on Biktarvy. In July, she had a prolonged stay in the intensive care unit, she was intubated and placed on the mechanical ventilator. Eventually required tracheostomy and PEG tube. Subsequently, the patient was decannulated. Has had frequent hospitalizations since then, for acute COPD exacerbation; in fact, she just was discharged yesterday for the same. She was denied for noninvasive BiPAP at home. Brought in by EMS early this morning in acute respiratory distress. I did speak to the provider, who states the patient was in severe respiratory distress. Audible wheezing. Not moving much air and was obtunded. Briefly trialed on BiPAP. She was ultimately intubated by the ER provider. Patient is currently being evaluated in in trauma bay 2. Current ventilator settings include assist-control, respiratory rate 24, tidal volume 350, FiO2 100%, PEEP of 5. ABGs done in the settings PaO2 greater than 420, pCO2 87, pH of 7.28. Rate was increased to 28. FiO2 dropped to 40%. She is not very well sedated, fighting the ventilator. Currently, propofol is being titrated up to 50 mcg/kg/min. Peak pressures are elevated at 38, static pressure 22. Significant airway resistance. She has been started on bronchodilators. No endotracheal secretions. No reported aspiration events. Chest x-ray showing a proximal ET tube, that will have to be advanced at least 3 cm. Nasogastric tube courses below the diaphragm. No obvious focal infiltrates or pneumonia. Hyperinflation consistent with COPD. CBC unremarkable. No leukocytosis. CMP: Sodium 132, potassium 3.8, chloride 87, serum bicarb 38, BUN 23, creatinine 0.39, glucose 115. Troponin 0.025. NT proBNP 474. EKG: sinus tachycardia, rate 133 bpm, no obvious acute ischemic changes. Blood pressures remain stable. Bolused one liter normal saline following intubation. Not requiring any vasopressors. Afebrile. She will be admitted to the intensive care unit once bed available. Seen and examined today on 01/12/2024, patient is in the ICU, intubated and mec hanically ventilated, I saw her yesterday on consultation when she was in the ER. Patient is now on assist-control rate of 20, tidal volume 325 FiO2 35% and PEEP of 5 ABG showed a pO2 of 88 pCO2 60, pH of 7.44, hence no changes were made in her ventilator settings. Remain on the same vent settings. Patient is requiring propofol at 70 mcg/kg/min, she is also now on Rocephin and vancomycin. Patient did have positive blood cultures, however uncertain whether this is a contamination or true MRSA infection hence empirically she is on Rocephin and vancomycin for now. Chest x-ray showed COPD, no evidence of infiltrates in both lungs. WBC count is 6.9 hemoglobin 11.9 basic metabolic profile is normal renal profile is normal blood cultures preliminary report gram-positive cocci in clusters, could be a contamination, final identification is pending patient remains on bronchodilators and steroids, patient remains on GI DVT prophylaxis and she is on enteral nutrition/for nutritional support clearly the patient is not quite ready to be weaned and extubated considering her underlying COPD will be extremely difficult and a challenge to extubate this patient. In the past patient required tracheostomy and PEG tube placement Patient was seen and examined today on 01/13/2024, remains in the ICU intubated and mechanically ventilated. She is on assist-control rate of 20 tidal volume 325 FiO2 35% PEEP of 5 ABG showed a pO2 of 88 pCO2 60 pH of 7.41. Chest x-ray showed no evidence of active disease, however the endotracheal tube needs to be advanced down about 3 cm. Patient is on propofol at 75 mcg/kg/min, I plan to transition to Precedex, awaken the patient, and check weaning parameters even possibly consider a weaning trial on this patient today. WBC count is 5.9 hemoglobin 11.2 basic metabolic profile is normal, renal profile is normal blood sugar is 141 Patient was reevaluated today on 01/14/2024, remains intubated mechanically ventilated, patient is still in the ICU, her ventilator settings are assist- control rate 20 tidal volume 325 FiO2 35% and PEEP of 5 ABG showed a pO2 of 66 pCO2 of 63 pH of 7.37 patient required more sedation yesterday, she is now on propofol at 70 mcg/kg/min she is also on fentanyl at 1.5 mg/kg/h, IV fluid running at 75 cc/h enteral feeding was initiated via orogastric tube, remains on Rocephin empirically. Chest x-ray showed no evidence of pneumonia. Patient was seen by infectious disease on consultation as she has history of HIV infection. WBC count is 5.6 hemoglobin is 12 platelets are 317, basic metabolic profile is normal bicarb is 37 BUN is 28 creatinine 0.36 vancomycin has been discontinued as it turned out to have contaminated blood cultures The patient is seen today January 15, 2024 in follow-up in the intensive care unit. She is currently intubated on the mechanical ventilator and assist- control mode at a rate of 20, tidal volume 325, FiO2 35% and a PEEP of 5. She is requiring sedation with propofol at 60 mcg/kg/min. She is on fentanyl drip at 2 mcg/kg/h. She is on Cleviprex at 8 mg/h. Normal saline at 75 mL/h. She remains on DuoNeb inhalations, Pulmicort and Perforomist inhalations, IV Solu- Medrol. Antibiotics in the form of ceftriaxone. Chest x-ray reveals no acute pulmonary process. White count 4.9. Hemoglobin 10.5. Platelets 272. Sodium 137. Potassium 4.0. Bicarb 36. BUN 24. Creatinine 0.37. Glucose 130. She is being nourished with vital AF at 20 mL/h which is goal. The patient is seen today January 16, 2024 in follow-up in the intensive care unit. She is awake and alert in no acute distress. She was extubated yesterday. She is currently maintaining good O2 saturations in the 90s on 5 L/min per nasal cannula. White count 10.0. Hemoglobin 12.9. Platelets 311. Sodium 135. Potassium 3.4. Bicarb 37. BUN 13. Creatinine 0.23. Glucose 123. She remains on Pulmicort and performs and elations, DuoNeb inhalations, Solu- Medrol. NicoDerm patch in place. Normal saline at 75 mL/h. She is still requiring Cleviprex at 8 mg/h. She completed a course of antibiotics. Chest x- ray reveals no acute pulmonary process. Objective - Vital Signs Vital signs: Vital Signs Temp 98.4 F 01/16/24 08:00 Pulse 79 01/16/24 10:00 Resp 23 01/16/24 10:00 BP 126/108 01/16/24 10:00 Pulse Ox 95 09/17/24 10:00 FiO2 35 01/15/24 16:00 Intake & Output 01/15/24 01/16/24 01/16/24 18:59 06:59 18:59 Intake Total 4680.129 7653.667 421.6 Output Total 2845 4325 975 Balance -1437.257 -3208.333 -553.4 Weight 58.2 kg 64 kg 64 kg Intake: IV 936 936 234 .9NS Pressure Bag 36 36 9 Sodium Chloride 0.9% 1, 900 900 225 000 ml @ 75 mls/hr IV . [id number] [facility] Rx#:[id number] Intake, IV Titration 361.743 180.667 187.6 Amount Clevidipine Butyrate 25 100.000 180.667 37.6 mg In Empty Bag 1 bag @ 1 MG/HR 2 mls/hr IV .Q24H [facility] Rx#:[id number] Dexmedetomidine/0.9% NaCl 15.643 (Pmx) 400 mcg In Empty Bag 1 bag @ 0.2 MCG/KG/HR 2.91 mls/hr IV .Q24H [facility] Rx#:[id number] Potassium Chloride 20 meq 100 In Water For Injection 1 100ml.bag @ 50 mls/hr IVPB Q2H [facility] Rx#: [id number] cefTRIAXone 1 gm In 50 Sodium Chloride 0.9% 50 ml @ 100 mls/hr IVPB Q24HR [facility] Rx#:[id number] fentaNYL (PF). 1,000 mcg 94.503 In Sodium Chloride 0.9% 80 ml @ 0.5 MCG/KG/HR 3. 06 mls/hr IV .Q24H [facility] Rx #:[id number] propofoL 1,000 mg In 151.597 Empty Bag 1 bag @ 15 MCG/ KG/MIN 5.715 mls/hr IV . [id number] [facility] Rx#:[id number] Tube Feeding 80 Other 30 Output: Urine 2845 4325 975 Other: Voiding Method Indwelling Catheter Indwelling Catheter Indwelling Catheter ABP, PAP, CO, CI - Last Documented Arterial Blood Pressure 130/58 - Exam GENERAL EXAM: Awake, alert 53-year-old female, on 5 L nasal, in no acute distress. Head is atraumatic, normocephalic. EYES: Normal reaction of pupils, equal size. NOSE: Clear with pink turbinates. THROAT: No erythema or exudates. NECK: No masses, no JVD. CHEST: No chest wall deformity. LUNGS: Diminished breath sound bilaterally no crackles rhonchi or wheezes CVS: Distant S1-S2, no S3 gallop, no murmur ABDOMEN: No hepatosplenomegaly, active bowel sounds, no guarding or rigidity. SKIN: No rashes CENTRAL NERVOUS SYSTEM: Patient is intubated sedated, unable to assess EXTREMITIES: No clubbing edema or cyanosis. Psychiatric: Denies anxiety/depression - Labs CBC & Chem 7: 01/16/24 04:45 01/16/24 04:45 Labs: Abnormal Lab Results - Last 24 Hours (Table) 01/15/24 01/15/24 01/16/24 Range/Units 12:05 13:17 04:45 RDW 15.7 H (11.5-15.5) % Neutrophils # 8.8 H (1.3-7.7) k/uL Lymphocytes # 0.6 L (1.0-4.8) k/uL ABG pCO2 55 H (35-45) mmHg ABG pO2 61 L (83-108) mmHg ABG HCO3 36 H (21-25) mmol/L ABG Total CO2 38 H (19-24) mmol/L ABG O2 Saturation 92.1 L (94-97) % Sodium (137-145) mmol/L Potassium (3.5-5.1) mmol/L Chloride (98-107) mmol/L Carbon Dioxide (22-30) mmol/L Creatinine (0.52-1.04) mg/dL Glucose (74-99) mg/dL POC Glucose (mg/dL) 122 H (70-110) mg/dL 01/16/24 01/16/24 Range/Units 04:45 04:46 RDW (11.5-15.5) % Neutrophils # (1.3-7.7) k/uL Lymphocytes # (1.0-4.8) k/uL ABG pCO2 (35-45) mmHg ABG pO2 (83-108) mmHg ABG HCO3 (21-25) mmol/L ABG Total CO2 (19-24) mmol/L ABG O2 Saturation (94-97) % Sodium 135 L (137-145) mmol/L Potassium 3.4 L (3.5-5.1) mmol/L Chloride 94 L (98-107) mmol/L Carbon Dioxide 37 H (22-30) mmol/L Creatinine 0.23 L (0.52-1.04) mg/dL Glucose 127 H (74-99) mg/dL POC Glucose (mg/dL) 132 H (70-110) mg/dL Microbiology - Last 24 Hours (Table) 01/12/24 06:52 Blood Culture - Preliminary Blood Assessment and Plan Assessment: Acute on chronic hypoxic respiratory failure requiring intubation mechanical ventilation and subsequent extubation on 01/15/2024, currently on 5 L nasal cannula Acute exacerbation of severe COPD/end-stage Bacteremia, possible contamination, final cultures of the blood or pending, amalia clemons the patient is now on vancomycin and Rocephin empirically History of ventilator dependent respiratory failure with previous tracheostomy and PEG tube insertion status post decannulation Very severe underlying COPD with an FEV1 22% of predicted Former tobacco dependence Acquired immunodeficiency syndrome, maintained on Biktarvy, most recent CD4 count 83 History of left upper lobe lung nodule, previously measuring 9 mm in size, being monitored on outpatient basis Plan: The patient was seen and evaluated Chest x-ray, labs and medications reviewed Currently stable and on 5 L nasal cannula Completed antibiotics Discontinue Pulmicort and Perforomist Initiate Symbicort Add amlodipine 10 mg daily Wean off the Cleviprex drip Advance diet as tolerated We will continue to follow I have personally seen and examined the patient, performed the documentation and the assessment and plan as written. Number of minutes spent on the visit: 10.
[2024-01-16] MEDS: NICOTINE 14MG/24HR PATCH TRANSDERM SCH (11:15)
[2024-01-16] MEDS: amLODIPine 10 MG TAB PO SCH (11:16)
[2024-01-16 11:50] LABS: Glucose,Whole Blood 120 mg/dL (70-110)
--- NOTE | 2024-01-16 12:09 | P.PN ---
Subjective Progress Note Date: 01/15/24 Principal diagnosis: Reason for follow-up is HIV and positive blood culture Patient is a 53-year female past medical history significant for HIV COPD admitted to the hospital with worsening respiratory status requiring intubation did have a positive blood culture with staph epi prompted this consultation. On today's evaluation that is 01/15/2024, patient has been afebrile, patient is on the ventilator hemodynamically stable FiO2 is currently stable at 35% no significant purulent secretion through the ET diarrhea etiology is reported by the nursing staff. Patient white count is 4.9 creatinine is 0.37 blood culture repeat so far negative Objective - Vital Signs Vital signs: Vital Signs Temp 97.7 F 01/15/24 08:00 Pulse 133 H 01/15/24 11:24 Resp 14 01/15/24 11:24 BP 124/71 01/15/24 11:00 Pulse Ox 94 L 01/15/24 10:00 FiO2 35 01/15/24 11:46 Intake & Output 01/14/24 01/15/24 01/15/24 18:59 06:59 18:59 Intake Total 6888.645 5053.381 753.241 Output Total 430 520 370 Balance 1160.487 920.381 383.241 Weight 58.2 kg Intake: IV 936 936 390 .9NS Pressure Bag 36 36 15 Sodium Chloride 0.9% 1, 900 900 375 000 ml @ 75 mls/hr IV . [id number] [facility] Rx#:[id number] Intake, IV Titration 324.487 264.381 253.241 Amount Clevidipine Butyrate 25 3.867 mg In Empty Bag 1 bag @ 1 MG/HR 2 mls/hr IV .Q24H [facility] Rx#:[id number] Dexmedetomidine/0.9% NaCl 3.274 (Pmx) 400 mcg In Empty Bag 1 bag @ 0.2 MCG/KG/HR 2.91 mls/hr IV .Q24H [facility] Rx#:[id number] fentaNYL (PF). 1,000 mcg 109.548 66.555 94.503 In Sodium Chloride 0.9% 80 ml @ 0.5 MCG/KG/HR 3. 06 mls/hr IV .Q24H [facility] Rx #:[id number] propofoL 1,000 mg In 214.939 197.826 151.597 Empty Bag 1 bag @ 15 MCG/ KG/MIN 5.715 mls/hr IV . [id number] [facility] Rx#:[id number] Tube Feeding 240 240 80 Other 90 30 Output: Urine 430 520 370 Other: Voiding Method Indwelling Catheter Indwelling Catheter ABP, PAP, CO, CI - Last Documented Arterial Blood Pressure 155/78 - Exam GENERAL DESCRIPTION: Elderly female intubated on the vent RESPIRATORY SYSTEM: Unlabored breathing , decreased breath sounds at bases HEART: S1 S2 regular rate and rhythm , ABDOMEN: Soft , no tenderness EXTREMITIES: No edema feet - Labs CBC & Chem 7: 01/16/24 04:45 01/16/24 04:45 Labs: Abnormal Lab Results - Last 24 Hours (Table) 01/14/24 01/14/24 01/15/24 Range/Units 17:43 23:48 04:00 RBC (3.80-5.40) m/uL Hgb (11.4-16.0) gm/dL Hct (34.0-46.0) % Lymphocytes # (1.0-4.8) k/uL ABG pCO2 (35-45) mmHg ABG pO2 (83-108) mmHg ABG HCO3 (21-25) mmol/L ABG Total CO2 (19-24) mmol/L ABG O2 Saturation (94-97) % Hemoglobin (11.4-16.0) gm/dL Carbon Dioxide 36 H (22-30) mmol/L BUN 24 H (7-17) mg/dL Creatinine 0.37 L (0.52-1.04) mg/dL Glucose 130 H (74-99) mg/dL POC Glucose (mg/dL) 149 H 153 H (70-110) mg/dL Calcium 8.0 L (8.4-10.2) mg/dL 01/15/24 01/15/24 01/15/24 Range/Units 04:00 05:42 12:05 RBC 3.45 L (3.80-5.40) m/uL Hgb 10.5 L (11.4-16.0) gm/dL Hct 33.8 L (34.0-46.0) % Lymphocytes # 0.5 L (1.0-4.8) k/uL ABG pCO2 55 H 55 H (35-45) mmHg ABG pO2 61 L (83-108) mmHg ABG HCO3 35 H 36 H (21-25) mmol/L ABG Total CO2 37 H 38 H (19-24) mmol/L ABG O2 Saturation 97.7 H 92.1 L (94-97) % Hemoglobin 10.9 L (11.4-16.0) gm/dL Carbon Dioxide (22-30) mmol/L BUN (7-17) mg/dL Creatinine (0.52-1.04) mg/dL Glucose (74-99) mg/dL POC Glucose (mg/dL) (70-110) mg/dL Calcium (8.4-10.2) mg/dL Microbiology - Last 24 Hours (Table) 01/12/24 06:52 Blood Culture - Preliminary Blood 01/11/24 01:40 Blood Culture Gram Stain - Final Blood Blood Culture - Final Staphylococcus epidermidis Molecular ID Assessment and Plan (1) Positive blood culture Current Visit: Yes Status: Acute Code(s): R78.81 - BACTEREMIA SNOMED Code(s): 863390260 (2) HIV disease Current Visit: No Status: Acute Code(s): B20 - HUMAN IMMUNODEFICIENCY VIRUS [HIV] DISEASE SNOMED Code(s): 26137492 Plan: 1patient with a positive blood culture with staph epi which is usually discrete terence and more likely representing a skin contamination as the patient did not have any evidence of cellulitis or open wound and staph epi not a common bacter ia to cause any respiratory infection patient did have a normal chest x-ray and normal procalcitonin. 2patient to continue with Biktarvy for her HIV. 3repeat blood culture has been negative and no need for vancomycin at this point Rocephin can be safely discontinued Dictation was produced using [employer] software. please excuse any grammatical, word or spelling errors. Time with Patient: Less than 30
--- NOTE | 2024-01-16 12:11 | P.PN ---
Subjective Progress Note Date: 01/16/24 Principal diagnosis: Reason for follow-up is HIV and positive blood culture Patient is a 53-year female past medical history significant for HIV COPD admitted to the hospital with worsening respiratory status requiring intubation did have a positive blood culture with staph epi prompted this consultation. On today's evaluation that is 01/16/2024, Patient has been extubated, patient is afebrile this morning patient denies having any chest pain shortness of breath or cough, the patient is breathing comfortably and currently on 5 L nasal cannula oxygen patient denies any abdominal pain no diarrhea no nausea no vomiting. Patient white count is 10.0, creatinine 0.23 Objective - Vital Signs Vital signs: Vital Signs Temp 98.4 F 01/16/24 08:00 Pulse 82 01/16/24 11:13 Resp 17 01/16/24 11:00 BP 113/74 01/16/24 11:00 Pulse Ox 96 01/16/24 11:00 FiO2 35 01/15/24 16:00 Intake & Output 01/15/24 01/16/24 01/16/24 18:59 06:59 18:59 Intake Total 8025.139 8984.667 549.267 Output Total 2845 4325 1725 Balance -1437.257 -3208.333 -1175.733 Weight 58.2 kg 64 kg 64 kg Intake: IV 936 936 315 .9NS Pressure Bag 36 36 15 Sodium Chloride 0.9% 1, 900 900 300 000 ml @ 75 mls/hr IV . [id number] [facility] Rx#:[id number] Intake, IV Titration 361.743 180.667 234.267 Amount Clevidipine Butyrate 25 100.000 180.667 84.267 mg In Empty Bag 1 bag @ 1 MG/HR 2 mls/hr IV .Q24H [facility] Rx#:[id number] Dexmedetomidine/0.9% NaCl 15.643 (Pmx) 400 mcg In Empty Bag 1 bag @ 0.2 MCG/KG/HR 2.91 mls/hr IV .Q24H [facility] Rx#:[id number] Potassium Chloride 20 meq 100 In Water For Injection 1 100ml.bag @ 50 mls/hr IVPB Q2H [facility] Rx#: [id number] cefTRIAXone 1 gm In 50 Sodium Chloride 0.9% 50 ml @ 100 mls/hr IVPB Q24HR [facility] Rx#:[id number] fentaNYL (PF). 1,000 mcg 94.503 In Sodium Chloride 0.9% 80 ml @ 0.5 MCG/KG/HR 3. 06 mls/hr IV .Q24H [facility] Rx #:[id number] propofoL 1,000 mg In 151.597 Empty Bag 1 bag @ 15 MCG/ KG/MIN 5.715 mls/hr IV . [id number] [facility] Rx#:[id number] Tube Feeding 80 Other 30 Output: Urine 2845 4325 1725 Other: Voiding Method Indwelling Catheter Indwelling Catheter Indwelling Catheter ABP, PAP, CO, CI - Last Documented Arterial Blood Pressure 132/61 - Exam GENERAL DESCRIPTION: Elderly female lying in bed in no distress RESPIRATORY SYSTEM: Unlabored breathing , decreased breath sounds at bases HEART: S1 S2 regular rate and rhythm , ABDOMEN: Soft , no tenderness EXTREMITIES: No edema feet - Labs CBC & Chem 7: 01/16/24 04:45 01/16/24 04:45 Labs: Abnormal Lab Results - Last 24 Hours (Table) 01/15/24 01/15/24 01/16/24 Range/Units 12:05 13:17 04:45 RDW 15.7 H (11.5-15.5) % Neutrophils # 8.8 H (1.3-7.7) k/uL Lymphocytes # 0.6 L (1.0-4.8) k/uL ABG pCO2 55 H (35-45) mmHg ABG pO2 61 L (83-108) mmHg ABG HCO3 36 H (21-25) mmol/L ABG Total CO2 38 H (19-24) mmol/L ABG O2 Saturation 92.1 L (94-97) % Sodium (137-145) mmol/L Potassium (3.5-5.1) mmol/L Chloride (98-107) mmol/L Carbon Dioxide (22-30) mmol/L Creatinine (0.52-1.04) mg/dL Glucose (74-99) mg/dL POC Glucose (mg/dL) 122 H (70-110) mg/dL 01/16/24 01/16/24 01/16/24 Range/Units 04:45 04:46 11:48 RDW (11.5-15.5) % Neutrophils # (1.3-7.7) k/uL Lymphocytes # (1.0-4.8) k/uL ABG pCO2 (35-45) mmHg ABG pO2 (83-108) mmHg ABG HCO3 (21-25) mmol/L ABG Total CO2 (19-24) mmol/L ABG O2 Saturation (94-97) % Sodium 135 L (137-145) mmol/L Potassium 3.4 L (3.5-5.1) mmol/L Chloride 94 L (98-107) mmol/L Carbon Dioxide 37 H (22-30) mmol/L Creatinine 0.23 L (0.52-1.04) mg/dL Glucose 127 H (74-99) mg/dL POC Glucose (mg/dL) 132 H 120 H (70-110) mg/dL Microbiology - Last 24 Hours (Table) 01/12/24 06:52 Blood Culture - Preliminary Blood Assessment and Plan (1) Positive blood culture Current Visit: Yes Status: Acute Code(s): R78.81 - BACTEREMIA SNOMED Code(s): 447749753 (2) HIV disease Current Visit: No Status: Acute Code(s): B20 - HUMAN IMMUNODEFICIENCY VIRUS [HIV] DISEASE SNOMED Code(s): 65513889 Plan: 1patient with a positive blood culture with staph epi which is usually discrete terence and more likely representing a skin contamination as the patient did not have any evidence of cellulitis or open wound and staph epi not a common bacteria to cause any respiratory infection patient did have a normal chest x- ray and normal procalcitonin, the patient Rocephin has been discontinued 2patient to continue with Biktarvy for her HIV, with repeat blood culture negative will monitor the patient closely off vancomycin Dictation was produced using [employer] dictation software. please excuse any grammatical, word or spelling errors. Time with Patient: Less than 30
[2024-01-16 17:31] LABS: Glucose,Whole Blood 114 mg/dL (70-110)
[2024-01-16] MEDS: SYMBICORT 160-4.5 MCG INHALER INHALATION SCH (20:16)
[2024-01-16] MEDS: POTASSIUM CHLORIDE 10 MEQ in WATER FOR INJECTION 1 100ML.BAG IVPB SCH (20:45)
[2024-01-17 04:38] LABS: Glucose,Whole Blood 135 mg/dL (70-110)
[2024-01-17 04:53] LABS: Basophils # (A) 0.1 k/uL (0-0.2); Basophils % (A) 1 %; Eosinophils % (A) 0 %; HGB 13.8 gm/dL (11.4-16.0); Lymphocytes # (A) 0.6 k/uL (1.0-4.8); Lymphocytes % (A) 6 %; MCH 31.2 pg (25.0-35.0); MCHC 32.7 g/dL (31.0-37.0); MCV 95.3 fL (80.0-100.0); Mean Platelet Volume 6.7; Monocytes # (A) 0.4 k/uL (0-1.0); Monocytes % (A) 4 %; Neutrophils # (A) 8.4 k/uL (1.3-7.7); Neutrophils % (A) 88 %; Platelet Count 317 k/uL (150-450); RBC 4.41 m/uL (3.80-5.40); RDW 15.2 % (11.5-15.5); WBC 9.5 k/uL (3.8-10.6)
[2024-01-17 05:07] LABS: African American GFR (CKD) >90 (>60 ml/min/1.73 sqM); Anion Gap 1 mmol/L; Blood Urea Nitrogen 15 mg/dL (7-17); Calcium 8.9 mg/dL (8.4-10.2); Carbon Dioxide 39 mmol/L (22-30); Chloride 93 mmol/L (98-107); Glucose 134 mg/dL (74-99); Non-African American GFR(CKD) >90 (>60 ml/min/1.73 sqM); Potassium 3.7 mmol/L (3.5-5.1); Sodium 133 mmol/L (137-145)
[2024-01-17] MEDS: POTASSIUM BICARBONATE/CIT AC 20 MEQ TABLET.EFF NG-TUBE SCH ×2 (05:46→21:46)
--- NOTE | 2024-01-17 07:28 | XR ---
EXAMINATION TYPE: XR chest 1V portable DATE OF EXAM: 01/17/2024 COMPARISON: 01/16/2024 INDICATION: COPD TECHNIQUE: Single frontal view of the chest is obtained. FINDINGS: The heart size is normal. The pulmonary vasculature is normal. The lungs are clear. IMPRESSION: 1. No acute pulmonary process. [facility], , 01/17/2024 7:26 AM
--- NOTE | 2024-01-17 08:59 | P.PN ---
Subjective Progress Note Date: 01/16/24 01/13/2024 Patient is evaluated today in the intensive care unit she is currently intubated and sedated. FiO2 of 35%. Patient remains on IV vancomycin and IV ceftriaxone. Her blood cultures are showing staph epi we did consult ID and repeat the blood cultures although this is likely a contaminant species. Patient had a chest x- ray today which reveals endotracheal tube consider advancement for improved position there is no evidence of pleural effusion or focal consolidation or pneumothorax. Stable level of 135, potassium of 3.8, CO2 of 37, chloride of 82, BUN of 25, creatinine of 0.41, glucose of 144, magnesium of 2.4. Remains afebrile, heart rate of 62, blood pressure 139/89. 01/14/2024 Patient remains in the ICU intubate and sedated. Started on tube feeds. Chest xray showing no consolidation or pleural effusion. Did not tolerating sedation holiday yesterday. Continues on IV rocephin, IV fentanyl, IV propofol, IV solumedrol. Sodium level 138, potassium 4.2, BUN 28, creatinine 0.36, white blood cell count 5.6, hgb 12.0. Blood pressure 124/72. 01/16/2024 Patient is seen and evaluated in follow-up continues to be in the ICU with multiple consultations following. Patient was successfully extubated using intermittent BiPAP and also 4 L via nasal cannula. Patient chronically wears 4 L outpatient and has been having multiple hospitalizations attempting to obtain BiPAP for at home although has been denied by insurance. Pulmonary permit specialist following patient is maintained on IV steroids along with empiric antibiotics and continued [id number] recommend PT/OT therapy evaluation as patient has had breathing treatments. Prolonged hospitalization with generalized weakness. Patient is currently afebrile with no reports of chest pain or palpitations. Patient denies worsening shortness of breath and reports feeling slightly improved other than some throat discomfort and hoarse voice. Review of systems: Constitutional: No reports of fatigue, fever, or chills Cardiovascular: No reports of chest pain or palpitations Respiratory: reports of shortness of breath although improving and also hoarse sore throat GI: No reports of nausea, vomiting, or diarrhea : No reports of dysuria or retention Neurovascular: reports of generalized weakness All medications have been reviewed PHYSICAL EXAMINATION: GENERAL: The patient is a 53-year-old female who appears elderly, ill appearing, currently on 4 L via nasal cannula slightly tachypneic, appears lethargic HEENT: Pupils are round and equally reacting to light. EOMI. No scleral icterus. No conjunctival pallor. Normocephalic, atraumatic. No pharyngeal erythema. No thyromegaly. CARDIOVASCULAR: S1 and S2 muffled, mildly tachycardic PULMONARY: Severely diminished breath sounds bilaterally with coarse breath gordo nd and scattered rhonchi noted, no accessory muscle use noted ABDOMEN: Soft, thin, nontender, nondistended, normoactive bowel sounds. No palpable organomegaly. MUSCULOSKELETAL: No joint swelling or deformity. EXTREMITIES: No cyanosis, clubbing, or pedal edema. NEUROLOGICAL: Gross neurological examination did not reveal any focal deficits. Unable to completely assess as patient is sedated on propofol SKIN: No rashes. Assessment: Acute on chronic hypercapnic hypoxemic respiratory failure secondary to COPD exacerbation with acute respiratory failure and being obtunded requiring mechanical ventilation on 01/11/2024, status post successful extubation 01/15/2024, currently on 4 L nasal cannula History of severe COPD and chronically wears 4 L outpatient, FEV1 is 22% Staph EPI bacteremia likely contaminent species. HIV on Biktarvy History of depression History of CVA/TIA History of anxiety/Depression/Panic disorder Continued ongoing nicotine dependence Hx of prolonged intubation requiring trach/peg status post reversal. History of alcoholism GI prophylaxis DVT prophylaxis Full Code Plan: Pulmonary was following attempting to have the patient qualified for BiPAP at home as it is felt she would highly benefit from this and possibly minimize frequent rehospitalizations although did not qualify. Patient chronically wears 4 L outpatient and went home and was noted to have severe respiratory distress and brought back to the hospital. Patient was obtunded and minimally responsive and ER physician decided to intubate the patient. Patient was successfully extubated yesterday 01/15/2024 and remains in the ICU. Being considered for transfer out of the ICU in the next day or so depending on respiratory status. Patient is maintained on [id number]-iqbbr DuoNebs along with IV steroids and empiric antibiotics per pulmonary Recommend PT/OT therapy evaluation for prolonged hospitalization and mechanical ventilation. Overall prognosis is extremely guarded given her severe COPD and HIV history The impression and plan of care has been dictated by Deirdre Ashley, Nurse Practitioner as directed. Dr. Waqar MD I have performed a history and physical examination and medical decision making of this patient, discussed the same with the dictator, and agree with the dict ators assessment and plan as written, documented as a scribe. Based on total visit time, I have performed more than 50% of this visit. Objective - Vital Signs Vital signs: Vital Signs Temp 98.2 F 01/17/24 04:00 Pulse 85 01/17/24 07:00 Resp 23 01/17/24 07:00 BP 122/86 01/17/24 07:00 Pulse Ox 97 01/17/24 07:00 FiO2 35 01/17/24 03:36 Intake & Output 01/16/24 01/17/24 01/17/24 18:59 06:59 18:59 Intake Total 629.701 169.333 3 Output Total 3545 2425 225 Balance -2915.299 -2255.667 -222 Weight 64 kg 58.6 kg Intake: IV 339 33 3 .9NS Pressure Bag 39 33 3 Sodium Chloride 0.9% 1, 300 000 ml @ 75 mls/hr IV . [id number] [facility] Rx#:[id number] Intake, IV Titration 290.701 136.333 Amount Clevidipine Butyrate 25 140.701 136.333 mg In Empty Bag 1 bag @ 1 MG/HR 2 mls/hr IV .Q24H [facility] Rx#:[id number] Potassium Chloride 20 meq 100 In Water For Injection 1 100ml.bag @ 50 mls/hr IVPB Q2H [facility] Rx#: [id number] cefTRIAXone 1 gm In 50 Sodium Chloride 0.9% 50 ml @ 100 mls/hr IVPB Q24HR [facility] Rx#:[id number] Output: Urine 3545 2425 225 Other: Voiding Method Indwelling Catheter Indwelling Catheter ABP, PAP, CO, CI - Last Documented Arterial Blood Pressure 144/71 - Labs CBC & Chem 7: 01/17/24 04:35 01/17/24 04:35 Labs: Abnormal Lab Results - Last 24 Hours (Table) 01/16/24 01/16/24 01/17/24 Range/Units 11:48 17:29 04:35 Neutrophils # 8.4 H (1.3-7.7) k/uL Lymphocytes # 0.6 L (1.0-4.8) k/uL Sodium (137-145) mmol/L Chloride (98-107) mmol/L Carbon Dioxide (22-30) mmol/L Creatinine (0.52-1.04) mg/dL Glucose (74-99) mg/dL POC Glucose (mg/dL) 120 H 114 H (70-110) mg/dL 01/17/24 01/17/24 Range/Units 04:35 04:36 Neutrophils # (1.3-7.7) k/uL Lymphocytes # (1.0-4.8) k/uL Sodium 133 L (137-145) mmol/L Chloride 93 L (98-107) mmol/L Carbon Dioxide 39 H (22-30) mmol/L Creatinine 0.26 L (0.52-1.04) mg/dL Glucose 134 H (74-99) mg/dL POC Glucose (mg/dL) 135 H (70-110) mg/dL
[2024-01-17] MEDS: LOSARTAN 25 MG TAB PO SCH (09:17)
--- NOTE | 2024-01-17 10:21 | P.PN ---
Subjective Progress Note Date: 01/17/24 Patient is a 53-year-old female with past medical history significant for COPD, ventilator dependent respiratory failure with previous tracheostomy and PEG tube, HIV on Biktarvy. In July, she had a prolonged stay in the intensive care unit, she was intubated and placed on the mechanical ventilator. Eventually required tracheostomy and PEG tube. Subsequently, the patient was decannulated. Has had frequent hospitalizations since then, for acute COPD exacerbation; in fact, she just was discharged yesterday for the same. She was denied for noninvasive BiPAP at home. Brought in by EMS early this morning in acute respiratory distress. I did speak to the provider, who states the patient was in severe respiratory distress. Audible wheezing. Not moving much air and was obtunded. Briefly trialed on BiPAP. She was ultimately intubated by the ER provider. Patient is currently being evaluated in in trauma bay 2. Current ventilator settings include assist-control, respiratory rate 24, tidal volume 350, FiO2 100%, PEEP of 5. ABGs done in the settings PaO2 greater than 420, pCO2 87, pH of 7.28. Rate was increased to 28. FiO2 dropped to 40%. She is not very well sedated, fighting the ventilator. Currently, propofol is being titrated up to 50 mcg/kg/min. Peak pressures are elevated at 38, static pressure 22. Significant airway resistance. She has been started on bronchodilators. No endotracheal secretions. No reported aspiration events. Chest x-ray showing a proximal ET tube, that will have to be advanced at least 3 cm. Nasogastric tube courses below the diaphragm. No obvious focal infiltrates or pneumonia. Hyperinflation consistent with COPD. CBC unremarkable. No leukocytosis. CMP: Sodium 132, potassium 3.8, chloride 87, serum bicarb 38, BUN 23, creatinine 0.39, glucose 115. Troponin 0.025. NT proBNP 474. EKG: sinus tachycardia, rate 133 bpm, no obvious acute ischemic changes. Blood pressures remain stable. Bolused one liter normal saline following intubation. Not requiring any vasopressors. Afebrile. She will be admitted to the intensive care unit once bed available. Seen and examined today on 01/12/2024, patient is in the ICU, intubated and mec hanically ventilated, I saw her yesterday on consultation when she was in the ER. Patient is now on assist-control rate of 20, tidal volume 325 FiO2 35% and PEEP of 5 ABG showed a pO2 of 88 pCO2 60, pH of 7.44, hence no changes were made in her ventilator settings. Remain on the same vent settings. Patient is requiring propofol at 70 mcg/kg/min, she is also now on Rocephin and vancomycin. Patient did have positive blood cultures, however uncertain whether this is a contamination or true MRSA infection hence empirically she is on Rocephin and vancomycin for now. Chest x-ray showed COPD, no evidence of infiltrates in both lungs. WBC count is 6.9 hemoglobin 11.9 basic metabolic profile is normal renal profile is normal blood cultures preliminary report gram-positive cocci in clusters, could be a contamination, final identification is pending patient remains on bronchodilators and steroids, patient remains on GI DVT prophylaxis and she is on enteral nutrition/for nutritional support clearly the patient is not quite ready to be weaned and extubated considering her underlying COPD will be extremely difficult and a challenge to extubate this patient. In the past patient required tracheostomy and PEG tube placement Patient was seen and examined today on 01/13/2024, remains in the ICU intubated and mechanically ventilated. She is on assist-control rate of 20 tidal volume 325 FiO2 35% PEEP of 5 ABG showed a pO2 of 88 pCO2 60 pH of 7.41. Chest x-ray showed no evidence of active disease, however the endotracheal tube needs to be advanced down about 3 cm. Patient is on propofol at 75 mcg/kg/min, I plan to transition to Precedex, awaken the patient, and check weaning parameters even possibly consider a weaning trial on this patient today. WBC count is 5.9 hemoglobin 11.2 basic metabolic profile is normal, renal profile is normal blood sugar is 141 Patient was reevaluated today on 01/14/2024, remains intubated mechanically ventilated, patient is still in the ICU, her ventilator settings are assist- control rate 20 tidal volume 325 FiO2 35% and PEEP of 5 ABG showed a pO2 of 66 pCO2 of 63 pH of 7.37 patient required more sedation yesterday, she is now on propofol at 70 mcg/kg/min she is also on fentanyl at 1.5 mg/kg/h, IV fluid running at 75 cc/h enteral feeding was initiated via orogastric tube, remains on Rocephin empirically. Chest x-ray showed no evidence of pneumonia. Patient was seen by infectious disease on consultation as she has history of HIV infection. WBC count is 5.6 hemoglobin is 12 platelets are 317, basic metabolic profile is normal bicarb is 37 BUN is 28 creatinine 0.36 vancomycin has been discontinued as it turned out to have contaminated blood cultures The patient is seen today January 15, 2024 in follow-up in the intensive care unit. She is currently intubated on the mechanical ventilator and assist- control mode at a rate of 20, tidal volume 325, FiO2 35% and a PEEP of 5. She is requiring sedation with propofol at 60 mcg/kg/min. She is on fentanyl drip at 2 mcg/kg/h. She is on Cleviprex at 8 mg/h. Normal saline at 75 mL/h. She remains on DuoNeb inhalations, Pulmicort and Perforomist inhalations, IV Solu- Medrol. Antibiotics in the form of ceftriaxone. Chest x-ray reveals no acute pulmonary process. White count 4.9. Hemoglobin 10.5. Platelets 272. Sodium 137. Potassium 4.0. Bicarb 36. BUN 24. Creatinine 0.37. Glucose 130. She is being nourished with vital AF at 20 mL/h which is goal. The patient is seen today January 16, 2024 in follow-up in the intensive care unit. She is awake and alert in no acute distress. She was extubated yesterday. She is currently maintaining good O2 saturations in the 90s on 5 L/min per nasal cannula. White count 10.0. Hemoglobin 12.9. Platelets 311. Sodium 135. Potassium 3.4. Bicarb 37. BUN 13. Creatinine 0.23. Glucose 123. She remains on Pulmicort and performs and elations, DuoNeb inhalations, Solu- Medrol. NicoDerm patch in place. Normal saline at 75 mL/h. She is still requiring Cleviprex at 8 mg/h. She completed a course of antibiotics. Chest x- ray reveals no acute pulmonary process. The patient is seen today January 17, 2024 in follow-up in the intensive care unit. She is awake and alert in no acute distress. Sitting up in bed. Curr ently on 5 L of oxygen per nasal cannula per minute. She did wear BiPAP about 4 hours last night at settings of 12/5 and 40% FiO2. She is still requiring Cleviprex currently at 5 mg/h. She was initiated on amlodipine 10 mg yesterday. She remains on heparin for DVT prophylaxis. Continued on DuoNeb inhalations, Symbicort, Solu-Medrol. NicoDerm patch in place. White count 9.5. Hemoglobin 13.8. Platelets 317. Sodium 133. Potassium 3.7. Bicarb 39. BUN 15. Creatinine 0.26. Glucose 134. Chest x-ray reveals no acute pulmonary process. Objective - Vital Signs Vital signs: Vital Signs Temp 98.2 F 01/17/24 09:00 Pulse 97 01/17/24 10:00 Resp 28 H 01/17/24 10:00 BP 136/95 01/17/24 10:00 Pulse Ox 97 01/17/24 10:00 FiO2 35 01/17/24 03:36 Intake & Output 01/16/24 01/17/24 01/17/24 18:59 06:59 18:59 Intake Total 629.701 169.333 160 Output Total 3545 2425 800 Balance -2915.299 -2255.667 -640 Weight 64 kg 58.6 kg Intake: IV 339 33 42 .9NS Pressure Bag 39 33 12 Sodium Chloride 0.9% 1, 300 30 000 ml @ 75 mls/hr IV . [id number] [facility] Rx#:[id number] Intake, IV Titration 290.701 136.333 Amount Clevidipine Butyrate 25 140.701 136.333 mg In Empty Bag 1 bag @ 1 MG/HR 2 mls/hr IV .Q24H [facility] Rx#:[id number] Potassium Chloride 20 meq 100 In Water For Injection 1 100ml.bag @ 50 mls/hr IVPB Q2H [facility] Rx#: [id number] cefTRIAXone 1 gm In 50 Sodium Chloride 0.9% 50 ml @ 100 mls/hr IVPB Q24HR [facility] Rx#:[id number] Oral 118 Output: Urine 3545 2425 800 Other: Voiding Method Indwelling Catheter Indwelling Catheter ABP, PAP, CO, CI - Last Documented Arterial Blood Pressure 140/67 - Exam GENERAL EXAM: Awake, alert 53-year-old female, sitting up in bed, comfortable, on 5 L nasal, in no acute distress. Head is atraumatic, normocephalic. EYES: Normal reaction of pupils, equal size. NOSE: Clear with pink turbinates. THROAT: No erythema or exudates. NECK: No masses, no JVD. CHEST: No chest wall deformity. LUNGS: Diminished breath sound bilaterally no crackles rhonchi or wheezes CVS: Distant S1-S2, no S3 gallop, no murmur ABDOMEN: No hepatosplenomegaly, active bowel sounds, no guarding or rigidity. SKIN: No rashes CENTRAL NERVOUS SYSTEM: Patient is intubated sedated, unable to assess EXTREMITIES: No clubbing edema or cyanosis. Psychiatric: Denies anxiety/depression - Labs CBC & Chem 7: 01/17/24 04:35 01/17/24 04:35 Labs: Abnormal Lab Results - Last 24 Hours (Table) 01/16/24 01/16/24 01/17/24 Range/Units 11:48 17:29 04:35 Neutrophils # 8.4 H (1.3-7.7) k/uL Lymphocytes # 0.6 L (1.0-4.8) k/uL Sodium (137-145) mmol/L Chloride (98-107) mmol/L Carbon Dioxide (22-30) mmol/L Creatinine (0.52-1.04) mg/dL Glucose (74-99) mg/dL POC Glucose (mg/dL) 120 H 114 H (70-110) mg/dL 01/17/24 01/17/24 Range/Units 04:35 04:36 Neutrophils # (1.3-7.7) k/uL Lymphocytes # (1.0-4.8) k/uL Sodium 133 L (137-145) mmol/L Chloride 93 L (98-107) mmol/L Carbon Dioxide 39 H (22-30) mmol/L Creatinine 0.26 L (0.52-1.04) mg/dL Glucose 134 H (74-99) mg/dL POC Glucose (mg/dL) 135 H (70-110) mg/dL Assessment and Plan Assessment: Acute on chronic hypoxic respiratory failure requiring intubation mechanical ventilation and subsequent extubation on 01/15/2024, currently on 5 L nasal cannu la Acute exacerbation of severe COPD/end-stage Bacteremia, possible contamination History of ventilator dependent respiratory failure with previous tracheostomy and PEG tube insertion status post decannulation Very severe underlying COPD with an FEV1 22% of predicted Former tobacco dependence Acquired immunodeficiency syndrome, maintained on Biktarvy, most recent CD4 count 83 History of left upper lobe lung nodule, previously measuring 9 mm in size, being monitored on outpatient basis Plan: The patient was seen and evaluated Chest x-ray, labs and medications reviewed Titrate down the FiO2 as tolerated Wean off the Cleviprex drip Continue amlodipine, add Cozaar 25 mg twice daily Transition Solu-Medrol to prednisone taper We will continue to follow I have personally seen and examined the patient, performed the documentation and the assessment and plan as written. Number of minutes spent on the visit: 10.
[2024-01-17 12:16] LABS: Glucose,Whole Blood 114 mg/dL (70-110)
[2024-01-17] MEDS: INSULIN ASPART (NovoLOG) 100 UNIT/ML VIAL SQ SCH (12:18)
[2024-01-17 16:45] LABS: Glucose,Whole Blood 113 mg/dL (70-110)
[2024-01-17 20:49] LABS: Glucose,Whole Blood 113 mg/dL (70-110)
[2024-01-17] MEDS: LOSARTAN 50 MG TAB PO SCH (21:37)
[2024-01-18 05:53] LABS: Basophils # (A) 0.1 k/uL (0-0.2); Basophils % (A) 1 %; Eosinophils % (A) 0 %; HCT 43.5 % (34.0-46.0); HGB 13.8 gm/dL (11.4-16.0); Lymphocytes # (A) 2.9 k/uL (1.0-4.8); Lymphocytes % (A) 21 %; MCH 30.5 pg (25.0-35.0); MCHC 31.8 g/dL (31.0-37.0); MCV 95.8 fL (80.0-100.0); Mean Platelet Volume 6.9; Monocytes # (A) 0.7 k/uL (0-1.0); Monocytes % (A) 5 %; Neutrophils # (A) 10.5 k/uL (1.3-7.7); Neutrophils % (A) 73 %; Platelet Count 330 k/uL (150-450); RBC 4.54 m/uL (3.80-5.40); RDW 15.2 % (11.5-15.5); WBC 14.3 k/uL (3.8-10.6)
[2024-01-18 06:12] LABS: African American GFR (CKD) >90 (>60 ml/min/1.73 sqM); Anion Gap 1 mmol/L; Blood Urea Nitrogen 36 mg/dL (7-17); Calcium 8.5 mg/dL (8.4-10.2); Carbon Dioxide 38 mmol/L (22-30); Chloride 96 mmol/L (98-107); Glucose 120 mg/dL (74-99); Non-African American GFR(CKD) >90 (>60 ml/min/1.73 sqM); Potassium 3.2 mmol/L (3.5-5.1); Sodium 135 mmol/L (137-145)
[2024-01-18] MEDS: POTASSIUM CHLORIDE 10 MEQ in WATER FOR INJECTION 1 100ML.BAG IVPB SCH (06:25)
[2024-01-18] MEDS: POTASSIUM CHLORIDE 20 MEQ in WATER FOR INJECTION 1 100ML.BAG IVPB SCH (06:49)
--- NOTE | 2024-01-18 07:35 | P.PN ---
Subjective Progress Note Date: 01/17/24 Principal diagnosis: Reason for follow-up is HIV and positive blood culture Patient is a 53-year female past medical history significant for HIV COPD admitted to the hospital with worsening respiratory status requiring intubation did have a positive blood culture with staph epi prompted this consultation. On today's evaluation that is 01/17/2024,the patient denies any fever or any chills, patient is breathing comfortably on 3 L of oxygen, the patient denies chest pain shortness of breath and no significant cough, patient denies abdominal pain, no nausea vomiting or diarrhea. Patient white count is 9.5, creatinine 0.26 blood culture to be negative sputum culture negative Objective - Vital Signs Vital signs: Vital Signs Temp 98.7 F 01/17/24 12:00 Pulse 94 01/17/24 12:09 Resp 22 01/17/24 12:00 BP 132/78 01/17/24 12:00 Pulse Ox 92 L 01/17/24 12:00 FiO2 35 01/17/24 03:36 Intake & Output 01/16/24 01/17/24 01/17/24 18:59 06:59 18:59 Intake Total 629.701 169.333 176 Output Total 3545 2425 1150 Balance -2915.299 -5175.667 -974 Weight 64 kg 58.6 kg Intake: IV 339 33 58 .9NS Pressure Bag 39 33 18 Sodium Chloride 0.9% 1, 300 40 000 ml @ 75 mls/hr IV . [id number] [facility] Rx#:[id number] Intake, IV Titration 290.701 136.333 Amount Clevidipine Butyrate 25 140.701 136.333 mg In Empty Bag 1 bag @ 1 MG/HR 2 mls/hr IV .Q24H [facility] Rx#:[id number] Potassium Chloride 20 meq 100 In Water For Injection 1 100ml.bag @ 50 mls/hr IVPB Q2H [facility] Rx#: [id number] cefTRIAXone 1 gm In 50 Sodium Chloride 0.9% 50 ml @ 100 mls/hr IVPB Q24HR [facility] Rx#:[id number] Oral 118 Output: Urine 3545 2425 1150 Other: Voiding Method Indwelling Catheter Indwelling Catheter ABP, PAP, CO, CI - Last Documented Arterial Blood Pressure 136/68 - Exam GENERAL DESCRIPTION: Elderly female lying in bed in no distress RESPIRATORY SYSTEM: Unlabored breathing , decreased breath sounds at bases HEART: S1 S2 regular rate and rhythm , ABDOMEN: Soft , no tenderness EXTREMITIES: No edema feet - Labs CBC & Chem 7: 01/18/24 04:15 01/18/24 04:15 Labs: Abnormal Lab Results - Last 24 Hours (Table) 01/16/24 01/17/24 01/17/24 Range/Units 17:29 04:35 04:35 Neutrophils # 8.4 H (1.3-7.7) k/uL Lymphocytes # 0.6 L (1.0-4.8) k/uL Sodium 133 L (137-145) mmol/L Chloride 93 L (98-107) mmol/L Carbon Dioxide 39 H (22-30) mmol/L Creatinine 0.26 L (0.52-1.04) mg/dL Glucose 134 H (74-99) mg/dL POC Glucose (mg/dL) 114 H (70-110) mg/dL 01/17/24 01/17/24 Range/Units 04:36 12:16 Neutrophils # (1.3-7.7) k/uL Lymphocytes # (1.0-4.8) k/uL Sodium (137-145) mmol/L Chloride (98-107) mmol/L Carbon Dioxide (22-30) mmol/L Creatinine (0.52-1.04) mg/dL Glucose (74-99) mg/dL POC Glucose (mg/dL) 135 H 114 H (70-110) mg/dL Assessment and Plan (1) Positive blood culture Current Visit: Yes Status: Acute Code(s): R78.81 - BACTEREMIA SNOMED Code(s): 395295627 (2) HIV disease Current Visit: No Status: Acute Code(s): B20 - HUMAN IMMUNODEFICIENCY VIRUS [HIV] DISEASE SNOMED Code(s): 46726092 Plan: 1patient with a positive blood culture with staph epi which is usually discrete terence and more likely representing a skin contamination as the patient did not have any evidence of cellulitis or open wound and staph epi not a common bacteria to cause any respiratory infection patient did have a normal chest x- ray and normal procalcitonin, reviewed blood culture has been negative as well patient is currently being monitored off antibiotic therapy 2patient to continue with Biktarvy for her HIV, and monitor clinical course closely Dictation was produced using [employer] dictation software. please excuse any grammatical, word or spelling errors. Time with Patient: Less than 30
--- NOTE | 2024-01-18 08:49 | P.PN ---
Subjective Progress Note Date: 01/17/24 01/13/2024 Patient is evaluated today in the intensive care unit she is currently intubated and sedated. FiO2 of 35%. Patient remains on IV vancomycin and IV ceftriaxone. Her blood cultures are showing staph epi we did consult ID and repeat the blood cultures although this is likely a contaminant species. Patient had a chest x- ray today which reveals endotracheal tube consider advancement for improved position there is no evidence of pleural effusion or focal consolidation or pneumothorax. Stable level of 135, potassium of 3.8, CO2 of 37, chloride of 82, BUN of 25, creatinine of 0.41, glucose of 144, magnesium of 2.4. Remains afebrile, heart rate of 62, blood pressure 139/89. 01/14/2024 Patient remains in the ICU intubate and sedated. Started on tube feeds. Chest xray showing no consolidation or pleural effusion. Did not tolerating sedation holiday yesterday. Continues on IV rocephin, IV fentanyl, IV propofol, IV solumedrol. Sodium level 138, potassium 4.2, BUN 28, creatinine 0.36, white blood cell count 5.6, hgb 12.0. Blood pressure 124/72. 01/16/2024 Patient is seen and evaluated in follow-up continues to be in the ICU with multiple consultations following. Patient was successfully extubated using intermittent BiPAP and also 4 L via nasal cannula. Patient chronically wears 4 L outpatient and has been having multiple hospitalizations attempting to obtain BiPAP for at home although has been denied by insurance. Pulmonary malariologist following patient is maintained on IV steroids along with empiric antibiotics and continued [id number] recommend PT/OT therapy evaluation as patient has had breathing treatments. Prolonged hospitalization with generalized weakness. Patient is currently afebrile with no reports of chest pain or palpitations. Patient denies worsening shortness of breath and reports feeling slightly improved other than some throat discomfort and hoarse voice. 01/17/2024 Patient is seen in follow-up this morning continues to be in the ICU has been extremely weak and has had a prolonged hospitalization. Patient is requiring 2 person assist to get up to the bedside commode and patient was independent prior to this admission. Patient to have PT/OT therapy evaluation and possible discussing with case management/social work regarding the need for ECF. Patient reports her shortness of breath is improving and used the BiPAP last night for couple of hours and is maintained on 4 L. Patient is extremely dyspneic and catching her breath after getting up with assistance to the commode. Review of systems: Constitutional: No reports of fatigue, fever, or chills Cardiovascular: No reports of chest pain or palpitations Respiratory: reports of shortness of breath although improving slowly GI: No reports of nausea, vomiting, or diarrhea : No reports of dysuria or retention Neurovascular: reports of generalized weakness All medications have been reviewed PHYSICAL EXAMINATION: GENERAL: The patient is a 53-year-old female who appears elderly, ill appearing, currently on 4 L via nasal cannula slightly tachypneic, appears to be working to breathe and catching her breath as she just got up from bed to the commode HEENT: Pupils are round and equally reacting to light. EOMI. No scleral icterus. No conjunctival pallor. Normocephalic, atraumatic. No pharyngeal erythema. No thyromegaly. CARDIOVASCULAR: S1 and S2 muffled, mildly tachycardic PULMONARY: Severely diminished breath sounds bilaterally with coarse breath sound and scattered rhonchi noted, no accessory muscle use noted ABDOMEN: Soft, thin, nontender, nondistended, normoactive bowel sounds. No palpable organomegaly. MUSCULOSKELETAL: No joint swelling or deformity. EXTREMITIES: No cyanosis, clubbing, or pedal edema. NEUROLOGICAL: Gross neurological examination did not reveal any focal deficits. Unable to completely assess as patient is sedated on propofol SKIN: No rashes. Assessment: Acute on chronic hypercapnic hypoxemic respiratory failure secondary to COPD exacerbation with acute respiratory failure and being obtunded requiring mechanical ventilation on 01/11/2024, status post successful extubation 01/15/2024, currently on 4 L nasal cannula History of severe COPD and chronically wears 4 L outpatient, FEV1 is 22% Staph EPI bacteremia likely contaminent species. HIV on Biktarvy History of depression History of CVA/TIA History of anxiety/Depression/Panic disorder Continued ongoing nicotine dependence Hx of prolonged intubation requiring trach/peg status post reversal. History of alcoholism GI prophylaxis DVT prophylaxis Full Code Plan: Pulmonary was following attempting to have the patient qualified for BiPAP at home as it is felt she would highly benefit from this and possibly minimize frequent rehospitalizations although did not qualify. Patient chronically wears 4 L outpatient and went home and was noted to have severe respiratory distress and brought back to the hospital. Patient was obtunded and minimally responsive and ER physician decided to intubate the patient. Patient was successfully extubated yesterday 01/15/2024 and remains in the ICU. Being considered for transfer out of the ICU in the next day or so depending on respiratory status. Patient is maintained on [id number] DuoNebs along with IV steroids and e mpiric antibiotics per pulmonary Awaiting PT/OT therapy evaluation for prolonged hospitalization and mechanical ventilation. Per nursing staff patient is requiring 2 person assist and is extremely dyspneic with minimal exertion while attempting to position change and get up to the commode. Will discuss with case management/social work regarding possible ECF after evaluation Overall prognosis is extremely guarded given her severe COPD and HIV history The impression and plan of care has been dictated by Deirdre Ashley, Nurse Practitioner as directed. Dr. Waqar MD I have performed a history and physical examination and medical decision making of this patient, discussed the same with the dictator, and agree with the dictators assessment and plan as written, documented as a scribe. Based on total visit time, I have performed more than 50% of this visit. Objective - Vital Signs Vital signs: Vital Signs Temp 98.2 F 01/17/24 04:00 Pulse 85 01/17/24 07:00 Resp 23 01/17/24 07:00 BP 122/86 01/17/24 07:00 Pulse Ox 97 01/17/24 07:00 FiO2 35 01/17/24 03:36 Intake & Output 01/16/24 01/17/24 01/17/24 18:59 06:59 18:59 Intake Total 629.701 169.333 3 Output Total 3545 2425 225 Balance -2915.299 -2255.667 -222 Weight 64 kg 58.6 kg Intake: IV 339 33 3 .9NS Pressure Bag 39 33 3 Sodium Chloride 0.9% 1, 300 000 ml @ 75 mls/hr IV . [id number] [facility] Rx#:[id number] Intake, IV Titration 290.701 136.333 Amount Clevidipine Butyrate 25 140.701 136.333 mg In Empty Bag 1 bag @ 1 MG/HR 2 mls/hr IV .Q24H [facility] Rx#:[id number] Potassium Chloride 20 meq 100 In Water For Injection 1 100ml.bag @ 50 mls/hr IVPB Q2H [facility] Rx#: [id number] cefTRIAXone 1 gm In 50 Sodium Chloride 0.9% 50 ml @ 100 mls/hr IVPB Q24HR [facility] Rx#:[id number] Output: Urine 2490 6060 835 Other: Voiding Method Indwelling Catheter Indwelling Catheter ABP, PAP, CO, CI - Last Documented Arterial Blood Pressure 144/71 - Labs CBC & Chem 7: 01/18/24 04:15 01/18/24 04:15 Labs: Abnormal Lab Results - Last 24 Hours (Table) 01/16/24 01/16/24 01/17/24 Range/Units 11:48 17:29 04:35 Neutrophils # 8.4 H (1.3-7.7) k/uL Lymphocytes # 0.6 L (1.0-4.8) k/uL Sodium (137-145) mmol/L Chloride (98-107) mmol/L Carbon Dioxide (22-30) mmol/L Creatinine (0.52-1.04) mg/dL Glucose (74-99) mg/dL POC Glucose (mg/dL) 120 H 114 H (70-110) mg/dL 01/17/24 01/17/24 Range/Units 04:35 04:36 Neutrophils # (1.3-7.7) k/uL Lymphocytes # (1.0-4.8) k/uL Sodium 133 L (137-145) mmol/L Chloride 93 L (98-107) mmol/L Carbon Dioxide 39 H (22-30) mmol/L Creatinine 0.26 L (0.52-1.04) mg/dL Glucose 134 H (74-99) mg/dL POC Glucose (mg/dL) 135 H (70-110) mg/dL
[2024-01-18] MEDS: predniSONE 20 MG TAB PO SCH (09:21)
--- NOTE | 2024-01-18 10:19 | P.PN ---
Subjective Progress Note Date: 01/18/24 Principal diagnosis: Respiratory failure. Patient is a 53-year-old female with past medical history significant for COPD, ventilator dependent respiratory failure with previous tracheostomy and PEG tube, HIV on Biktarvy. In July, she had a prolonged stay in the intensive care unit, she was intubated and placed on the mechanical ventilator. Eventually required tracheostomy and PEG tube. Subsequently, the patient was decannulated. Has had frequent hospitalizations since then, for acute COPD exacerbation; in fact, she just was discharged yesterday for the same. She was denied for noninvasive BiPAP at home. Brought in by EMS early this morning in acute respiratory distress. I did speak to the provider, who states the patient was in severe respiratory distress. Audible wheezing. Not moving much air and was obtunded. Briefly trialed on BiPAP. She was ultimately intubated by the ER provider. Patient is currently being evaluated in in trauma bay 2. Current ventilator settings include assist-control, respiratory rate 24, tidal volume 350, FiO2 100%, PEEP of 5. ABGs done in the settings PaO2 greater than 420, pCO2 87, pH of 7.28. Rate was increased to 28. FiO2 dropped to 40%. She is not very well sedated, fighting the ventilator. Currently, propofol is being titrated up to 50 mcg/kg/min. Peak pressures are elevated at 38, static pressure 22. Significant airway resistance. She has been started on bronchodilators. No endotracheal secretions. No reported aspiration events. Chest x-ray showing a proximal ET tube, that will have to be advanced at least 3 cm. Nasogastric tube courses below the diaphragm. No obvious focal infiltrates or pneumonia. Hyperinflation consistent with COPD. CBC unremarkable. No leukocytosis. CMP: Sodium 132, potassium 3.8, chloride 87, serum bicarb 38, BUN 23, creatinine 0.39, glucose 115. Troponin 0.025. NT proBNP 474. EKG: sinus tachycardia, rate 133 bpm, no obvious acute ischemic changes. Blood pressures remain stable. Bolused one liter normal saline following intubation. Not requiring any vasopressors. Afebrile. She will be admitted to the intensive care unit once bed available. Seen and examined today on 01/12/2024, patient is in the ICU, intubated and mechanically ventilated, I saw her yesterday on consultation when she was in the ER. Patient is now on assist-control rate of 20, tidal volume 325 FiO2 35% and PEEP of 5 ABG showed a pO2 of 88 pCO2 60, pH of 7.44, hence no changes were made in her ventilator settings. Remain on the same vent settings. Patient is requiring propofol at 70 mcg/kg/min, she is also now on Rocephin and vancomycin. Patient did have positive blood cultures, however uncertain whether this is a contamination or true MRSA infection hence empirically she is on Rocephin and vancomycin for now. Chest x-ray showed COPD, no evidence of infiltrates in both lungs. WBC count is 6.9 hemoglobin 11.9 basic metabolic profile is normal renal profile is normal blood cultures preliminary report gram-positive cocci in clusters, could be a contamination, final identification is pending patient remains on bronchodilators and steroids, patient remains on GI DVT prophylaxis and she is on enteral nutrition/for nutritional support clearly the patient is not quite ready to be weaned and extubated considering her underlying COPD will be extremely difficult and a challenge to extubate this patient. In the past patient required tracheostomy and PEG tube placement Patient was seen and examined today on 01/13/2024, remains in the ICU intubated and mechanically ventilated. She is on assist-control rate of 20 tidal volume 325 FiO2 35% PEEP of 5 ABG showed a pO2 of 88 pCO2 60 pH of 7.41. Chest x-ray showed no evidence of active disease, however the endotracheal tube needs to be advanced down about 3 cm. Patient is on propofol at 75 mcg/kg/min, I plan to t ransition to Precedex, awaken the patient, and check weaning parameters even possibly consider a weaning trial on this patient today. WBC count is 5.9 hemoglobin 11.2 basic metabolic profile is normal, renal profile is normal blood sugar is 141 Patient was reevaluated today on 01/14/2024, remains intubated mechanically ventilated, patient is still in the ICU, her ventilator settings are assist-co ntrol rate 20 tidal volume 325 FiO2 35% and PEEP of 5 ABG showed a pO2 of 66 pCO2 of 63 pH of 7.37 patient required more sedation yesterday, she is now on propofol at 70 mcg/kg/min she is also on fentanyl at 1.5 mg/kg/h, IV fluid running at 75 cc/h enteral feeding was initiated via orogastric tube, remains on Rocephin empirically. Chest x-ray showed no evidence of pneumonia. Patient was seen by infectious disease on consultation as she has history of HIV infection. WBC count is 5.6 hemoglobin is 12 platelets are 317, basic metabolic profile is normal bicarb is 37 BUN is 28 creatinine 0.36 vancomycin has been discontinued as it turned out to have contaminated blood cultures The patient is seen today January 15, 2024 in follow-up in the intensive care unit. She is currently intubated on the mechanical ventilator and assist- control mode at a rate of 20, tidal volume 325, FiO2 35% and a PEEP of 5. She is requiring sedation with propofol at 60 mcg/kg/min. She is on fentanyl drip at 2 mcg/kg/h. She is on Cleviprex at 8 mg/h. Normal saline at 75 mL/h. She remains on DuoNeb inhalations, Pulmicort and Perforomist inhalations, IV Solu- Medrol. Antibiotics in the form of ceftriaxone. Chest x-ray reveals no acute pulmonary process. White count 4.9. Hemoglobin 10.5. Platelets 272. Sodium 137. Potassium 4.0. Bicarb 36. BUN 24. Creatinine 0.37. Glucose 130. She is being nourished with vital AF at 20 mL/h which is goal. The patient is seen today January 16, 2024 in follow-up in the intensive care unit. She is awake and alert in no acute distress. She was extubated yesterday. She is currently maintaining good O2 saturations in the 90s on 5 L/min per nasal cannula. White count 10.0. Hemoglobin 12.9. Platelets 311. Sodium 135. Potassium 3.4. Bicarb 37. BUN 13. Creatinine 0.23. Glucose 123. She remains on Pulmicort and performs and elations, DuoNeb inhalations, Solu- Medrol. NicoDerm patch in place. Normal saline at 75 mL/h. She is still requiring Cleviprex at 8 mg/h. She completed a course of antibiotics. Chest x- ray reveals no acute pulmonary process. The patient is seen today January 17, 2024 in follow-up in the intensive care unit. She is awake and alert in no acute distress. Sitting up in bed. Currently on 5 L of oxygen per nasal cannula per minute. She did wear BiPAP about 4 hours last night at settings of 12/5 and 40% FiO2. She is still requiring Cleviprex currently at 5 mg/h. She was initiated on amlodipine 10 mg yesterday. She remains on heparin for DVT prophylaxis. Continued on DuoNeb inhalations, Symbicort, Solu-Medrol. NicoDerm patch in place. White count 9.5. Hemoglobin 13.8. Platelets 317. Sodium 133. Potassium 3.7. Bicarb 39. BUN 15. Creatinine 0.26. Glucose 134. Chest x-ray reveals no acute pulmonary process. Progress note dated January 18, 2024. 53-year-old female seen today in room 265. The patient is on 3 L of oxygen. The patient is getting saline at 10 cc an hour. The patient did use BiPAP last night for 4 hours, with settings of 12/5, and 40%. Clinically, she is feeling much better, and doing much better. White count 14.3, hemoglobin 13.8, hematocrit 43.5, and platelet count normal. Sodium 135, potassium 3.2, chlorides 96, CO2 38, BUN 36, creatinine 0.53. Glucose is 120. Calcium is 8.5. Chest x-ray from 16 January shows no acute pulmonary process. Objective - Vital Signs Vital signs: Vital Signs Temp 97.9 F 01/18/24 04:00 Pulse 90 01/18/24 08:29 Resp 30 H 01/18/24 07:00 BP 121/96 01/18/24 07:00 Pulse Ox 97 01/18/24 08:15 FiO2 40 01/18/24 00:00 Intake & Output 01/17/24 01/18/24 01/18/24 18:59 06:59 18:59 Intake Total 967.0 33 3 Output Total 1320 330 30 Balance -353.0 -297 -27 Weight 56.7 kg Intake: IV 79 33 3 .9NS Pressure Bag 39 33 3 Sodium Chloride 0.9% 1, 40 000 ml @ 75 mls/hr IV . [id number] [facility] Rx#:[id number] Intake, IV Titration 50.0 Amount Clevidipine Butyrate 25 50.0 mg In Empty Bag 1 bag @ 1 MG/HR 2 mls/hr IV .Q24H [facility]O Rx#:[id number] Oral 838 Output: Urine 1320 330 30 Other: Voiding Method Indwelling Catheter Indwelling Catheter ABP, PAP, CO, CI - Last Documented Arterial Blood Pressure 165/89 - Exam No acute distress, oriented 3. Currently on 3 L of oxygen. HEENT examination is grossly unremarkable. Mucous membranes are moist. No oral lesions. Neck supple. Full range of motion. No adenopathy thyromegaly or neck vein distention. Cardiovascular examination reveals regular rhythm rate. S1-S2 normal. No S3 or S4. No discernible murmur noted. Lungs reveal diminished bilateral breath sounds. No wheezes rhonchi or crackles. Abdomen soft bowel sounds are heard. No masses or tenderness. Extremities are intact. No cyanosis clubbing or edema. Skin is without rash or lesion. Neurologic examination is brief but nonfocal. - Labs CBC & Chem 7: 01/18/24 04:15 01/18/24 04:15 Labs: Abnormal Lab Results - Last 24 Hours (Table) 01/17/24 01/17/24 01/17/24 Range/Units 12:16 16:43 20:47 WBC (3.8-10.6) k/uL Neutrophils # (1.3-7.7) k/uL Sodium (137-145) mmol/L Potassium (3.5-5.1) mmol/L Chloride (98-107) mmol/L Carbon Dioxide (22-30) mmol/L BUN (7-17) mg/dL Glucose (74-99) mg/dL POC Glucose (mg/dL) 114 H 113 H 113 H (70-110) mg/dL 01/18/24 01/18/24 Range/Units 04:15 04:15 WBC 14.3 H (3.8-10.6) k/uL Neutrophils # 10.5 H (1.3-7.7) k/uL Sodium 135 L (137-145) mmol/L Potassium 3.2 L (3.5-5.1) mmol/L Chloride 96 L (98-107) mmol/L Carbon Dioxide 38 H (22-30) mmol/L BUN 36 H (7-17) mg/dL Glucose 120 H (74-99) mg/dL POC Glucose (mg/dL) (70-110) mg/dL Microbiology - Last 24 Hours (Table) 01/12/24 06:52 Blood Culture - Final Blood Assessment and Plan Assessment: Acute on chronic hypoxic respiratory failure requiring intubation mechanical ventilation and subsequent extubation on 01/15/2024. Acute exacerbation of severe COPD/end-stage. History of ventilator dependent respiratory failure with previous tracheostomy and PEG tube insertion. Very severe underlying COPD with an FEV1 22% of predicted. Former tobacco dependence. Acquired immunodeficiency syndrome, maintained on Biktarvy. History of left upper lobe lung nodule, previously measuring 9 mm in size. Plan: Plan dated January 18, 2024. The patient is actually doing very well, and can be transferred out of the intensive care unit. Additional recommendations and suggestions are forthcoming. Labs, x-rays, and medications are reviewed. The patient has been weaned down to 3 L. No additional recommendations are made. Prognosis is guarded. The patient is using BiPAP at nighttime. Hopefully we can provide her with the BiPAP, post discharge. Time with Patient: Less than 30
[2024-01-18 11:16] LABS: Glucose,Whole Blood 97 mg/dL (70-110)
--- NOTE | 2024-01-18 12:51 | P.PN ---
Subjective Progress Note Date: 01/18/24 01/13/2024 Patient is evaluated today in the intensive care unit she is currently intubated and sedated. FiO2 of 35%. Patient remains on IV vancomycin and IV ceftriaxone. Her blood cultures are showing staph epi we did consult ID and repeat the blood cultures although this is likely a contaminant species. Patient had a chest x- ray today which reveals endotracheal tube consider advancement for improved position there is no evidence of pleural effusion or focal consolidation or pneumothorax. Stable level of 135, potassium of 3.8, CO2 of 37, chloride of 82, BUN of 25, creatinine of 0.41, glucose of 144, magnesium of 2.4. Remains afebrile, heart rate of 62, blood pressure 139/89. 01/14/2024 Patient remains in the ICU intubate and sedated. Started on tube feeds. Chest xray showing no consolidation or pleural effusion. Did not tolerating sedation holiday yesterday. Continues on IV rocephin, IV fentanyl, IV propofol, IV solumedrol. Sodium level 138, potassium 4.2, BUN 28, creatinine 0.36, white blood cell count 5.6, hgb 12.0. Blood pressure 124/72. 01/16/2024 Patient is seen and evaluated in follow-up continues to be in the ICU with multiple consultations following. Patient was successfully extubated using intermittent BiPAP and also 4 L via nasal cannula. Patient chronically wears 4 L outpatient and has been having multiple hospitalizations attempting to obtain BiPAP for at home although has been denied by insurance. Pulmonary radiology director following patient is maintained on IV steroids along with empiric antibiotics and continued [id number] recommend PT/OT therapy evaluation as patient has had breathing treatments. Prolonged hospitalization with generalized weakness. Patient is currently afebrile with no reports of chest pain or palpitations. Patient denies worsening shortness of breath and reports feeling slightly improved other than some throat discomfort and hoarse voice. 01/17/2024 Patient is seen in follow-up this morning continues to be in the ICU has been extremely weak and has had a prolonged hospitalization. Patient is requiring 2 person assist to get up to the bedside commode and patient was independent prior to this admission. Patient to have PT/OT therapy evaluation and possible discussing with case management/social work regarding the need for ECF. Patient reports her shortness of breath is improving and used the BiPAP last night for couple of hours and is maintained on 4 L. Patient is extremely dyspneic and catching her breath after getting up with assistance to the commode. 01/18/2024 Patient seen and evaluated in follow-up today and is awaiting a transfer out of the ICU once a bed is available on stepdown. Patient continues on 4 L via nasal cannula and intermittently using BiPAP at night. Patient will need 24-hour pulse ox testing to see if she qualifies for BiPAP continuously in the outpatient setting. Patient with significant weakness evaluated by physical therapy and recommending rehab. Patient is agreeable for strength and mobility as she was independent prior to this hospitalization. To discuss further with social work regarding discharge planning as patient was under the understanding that she was able to go home to get clothing and then go to rehab. Patient would need to be transferred from here to rehab on discharge. Patient is afebrile reporting her shortness of breath is slightly improving and is feeling better. Patient continues with indwelling Ortiz catheter and recommend to discontinue and trial void. Review of systems: Constitutional: No reports of fatigue, fever, or chills Cardiovascular: No reports of chest pain or palpitations Respiratory: reports of shortness of breath although improving slowly GI: No reports of nausea, vomiting, or diarrhea : No reports of dysuria or retention Neurovascular: reports of generalized weakness and difficulty ambulating All medications have been reviewed PHYSICAL EXAMINATION: GENERAL: The patient is a 53-year-old female who appears elderly, ill appearing, currently on 4 L via nasal cannula slightly tachypneic, appears less dyspneic HEENT: Pupils are round and equally reacting to light. EOMI. No scleral icterus. No conjunctival pallor. Normocephalic, atraumatic. No pharyngeal erythema. No thyromegaly. CARDIOVASCULAR: S1 and S2 muffled, mildly tachycardic PULMONARY: Severely diminished breath sounds bilaterally with coarse breath sound and scattered rhonchi noted, no accessory muscle use noted ABDOMEN: Soft, thin, nontender, nondistended, normoactive bowel sounds. No palpable organomegaly. MUSCULOSKELETAL: No joint swelling or deformity. EXTREMITIES: No cyanosis, clubbing, or pedal edema. NEUROLOGICAL: Gross neurological examination did not reveal any focal deficits. Diffusely weak SKIN: No rashes. Assessment: Acute on chronic hypercapnic hypoxemic respiratory failure secondary to COPD exacerbation with acute respiratory failure and being obtunded requiring mechanical ventilation on 01/11/2024, status post successful extubation 01/15/2024, currently on 4 L nasal cannula History of severe COPD and chronically wears 4 L outpatient, FEV1 is 22% Staph EPI bacteremia likely contaminent species. HIV on Biktarvy History of depression History of CVA/TIA History of anxiety/Depression/Panic disorder Continued ongoing nicotine dependence Hx of prolonged intubation requiring trach/peg status post reversal. History of alcoholism GI prophylaxis DVT prophylaxis Full Code Plan: Pulmonary following and patient has been transition to oral steroids and continued on DuoNeb treatments intermittently using BiPAP at night and chronically on her 4 L via nasal cannula. Patient is a downgrade out of the ICU once a bed on 3 S. becomes available Continue DuoNeb treatments and has been transition to oral steroids per p ulmonary. Patient will also require a 24-hour pulse oximetry testing to evaluate if she qualifies for BiPAP in the outpatient setting. This was initiated and attempted last admission although patient left Patient evaluated by PT/OT therapy recommending rehab and patient is agreeable if someone will accept her in her local area. Patient is reporting she was to meet with a new PCP at her home as they will be visiting her in the home and discussed with the patient about rescheduling this appointment as she continues to be hospitalized and not quite ready for discharge as of tomorrow. Case man agement/social work following working on authorization for ECF. Patient was under the understanding she could go home and gather some of her clothing reschedule with this new visiting physician and then go to rehab. Discussed with the patient that she would need to be discharged from here and go to rehab We will follow-up with case management/social work regarding discharge planning Recommended discharge indwelling Ortiz catheter and trial void and per protocol monitor for any postvoid residuals Due to multiple complex medical issues and significant comorbidities, prognosis is guarded The impression and plan of care has been dictated by Deirdre Ashley, Nurse Practitioner as directed. Dr. Waqar MD I have performed a history and physical examination and medical decision making of this patient, discussed the same with the dictator, and agree with the dictators assessment and plan as written, documented as a scribe. Based on total visit time, I have performed more than 50% of this visit. Objective - Vital Signs Vital signs: Vital Signs Temp 97.9 F 01/18/24 04:00 Pulse 90 01/18/24 08:29 Resp 30 H 01/18/24 07:00 BP 121/96 01/18/24 07:00 Pulse Ox 97 01/18/24 08:15 FiO2 40 01/18/24 00:00 Intake & Output 01/17/24 01/18/24 01/18/24 18:59 06:59 18:59 Intake Total 967.0 33 3 Output Total 1320 330 30 Balance -353.0 -297 -27 Weight 56.7 kg Intake: IV 79 33 3 .9NS Pressure Bag 39 33 3 Sodium Chloride 0.9% 1, 40 000 ml @ 75 mls/hr IV . [id number] [facility] Rx#:[id number] Intake, IV Titration 50.0 Amount Clevidipine Butyrate 25 50.0 mg In Empty Bag 1 bag @ 1 MG/HR 2 mls/hr IV .Q24H [facility] Rx#:[id number] Oral 838 Output: Urine 1320 330 30 Other: Voiding Method Indwelling Catheter Indwelling Catheter ABP, PAP, CO, CI - Last Documented Arterial Blood Pressure 165/89 - Labs CBC & Chem 7: 01/18/24 04:15 01/18/24 04:15 Labs: Abnormal Lab Results - Last 24 Hours (Table) 01/17/24 01/17/24 01/17/24 Range/Units 12:16 16:43 20:47 WBC (3.8-10.6) k/uL Neutrophils # (1.3-7.7) k/uL Sodium (137-145) mmol/L Potassium (3.5-5.1) mmol/L Chloride (98-107) mmol/L Carbon Dioxide (22-30) mmol/L BUN (7-17) mg/dL Glucose (74-99) mg/dL POC Glucose (mg/dL) 114 H 113 H 113 H (70-110) mg/dL 01/18/24 01/18/24 Range/Units 04:15 04:15 WBC 14.3 H (3.8-10.6) k/uL Neutrophils # 10.5 H (1.3-7.7) k/uL Sodium 135 L (137-145) mmol/L Potassium 3.2 L (3.5-5.1) mmol/L Chloride 96 L (98-107) mmol/L Carbon Dioxide 38 H (22-30) mmol/L BUN 36 H (7-17) mg/dL Glucose 120 H (74-99) mg/dL POC Glucose (mg/dL) (70-110) mg/dL Microbiology - Last 24 Hours (Table) 01/12/24 06:52 Blood Culture - Final Blood
[2024-01-18 17:02] LABS: Glucose,Whole Blood 149 mg/dL (70-110)
[2024-01-18 20:06] LABS: Glucose,Whole Blood 99 mg/dL (70-110)
[2024-01-19 04:05] VITALS: BP 114/77
[2024-01-19 05:58] LABS: Glucose,Whole Blood 79 mg/dL (70-110)
[2024-01-19 08:40] VITALS: RESP 16; TEMP 97.9
[2024-01-19 11:38] LABS: Glucose,Whole Blood 98 mg/dL (70-110)
[2024-01-19 12:43] VITALS: BMI 19.6
--- NOTE | 2024-01-19 12:55 | P.PN ---
Subjective Progress Note Date: 01/18/24 Principal diagnosis: Reason for follow-up is HIV and positive blood culture Patient is a 53-year female past medical history significant for HIV COPD admitted to the hospital with worsening respiratory status requiring intubation did have a positive blood culture with staph epi prompted this consultation. On today's evaluation that is 01/18/2024,the patient remains to be afebrile, patient is on 2 L nasal cannula supplemental oxygen and denies any shortness of breath no chest pain or cough.Patient denies having any nausea or vomiting, no abdominal pain and no diarrhea has been reported, mention feeling better. Patient did have white count of 14.3, creatinine 0.53 Objective - Vital Signs Vital signs: Vital Signs Temp 98.5 F 01/18/24 14:00 Pulse 100 01/18/24 15:11 Resp 18 01/18/24 14:00 BP 144/111 01/18/24 14:00 Pulse Ox 95 01/18/24 14:00 FiO2 40 01/18/24 00:00 Intake & Output 01/17/24 01/18/24 01/18/24 18:59 06:59 18:59 Intake Total 967.0 33 129 Output Total 1320 330 480 Balance -353.0 -297 -351 Weight 56.7 kg Intake: IV 79 33 129 .9NS Pressure Bag 39 33 9 Invasive Line 5 20 Potassium Chloride 20 meq 100 In Water For Injection 1 100ml.bag @ 50 mls/hr IVPB Q2H [facility] Rx#: [id number] Sodium Chloride 0.9% 1, 40 000 ml @ 75 mls/hr IV . [id number] [facility] Rx#:[id number] Intake, IV Titration 50.0 Amount Clevidipine Butyrate 25 50.0 mg In Empty Bag 1 bag @ 1 MG/HR 2 mls/hr IV .Q24H [facility] Rx#:[id number] Oral 838 Output: Urine 1320 330 480 Other: Voiding Method Indwelling Catheter Indwelling Catheter Indwelling Catheter ABP, PAP, CO, CI - Last Documented Arterial Blood Pressure 142/80 - Exam GENERAL DESCRIPTION: Elderly female lying in bed in no distress RESPIRATORY SYSTEM: Unlabored breathing , decreased breath sounds at bases HEART: S1 S2 regular rate and rhythm , ABDOMEN: Soft , no tenderness EXTREMITIES: No edema feet - Labs CBC & Chem 7: 01/18/24 04:15 01/18/24 13:13 Labs: Abnormal Lab Results - Last 24 Hours (Table) 01/17/24 01/17/24 01/18/24 Range/Units 16:43 20:47 04:15 WBC 14.3 H (3.8-10.6) k/uL Neutrophils # 10.5 H (1.3-7.7) k/uL Sodium (137-145) mmol/L Potassium (3.5-5.1) mmol/L Chloride (98-107) mmol/L Carbon Dioxide (22-30) mmol/L BUN (7-17) mg/dL Glucose (74-99) mg/dL POC Glucose (mg/dL) 113 H 113 H (70-110) mg/dL 01/18/24 Range/Units 04:15 WBC (3.8-10.6) k/uL Neutrophils # (1.3-7.7) k/uL Sodium 135 L (137-145) mmol/L Potassium 3.2 L (3.5-5.1) mmol/L Chloride 96 L (98-107) mmol/L Carbon Dioxide 38 H (22-30) mmol/L BUN 36 H (7-17) mg/dL Glucose 120 H (74-99) mg/dL POC Glucose (mg/dL) (70-110) mg/dL Microbiology - Last 24 Hours (Table) 01/12/24 06:52 Blood Culture - Final Blood Assessment and Plan (1) Positive blood culture Current Visit: Yes Status: Acute Code(s): R78.81 - BACTEREMIA SNOMED Code(s): 763630030 (2) HIV disease Current Visit: No Status: Acute Code(s): B20 - HUMAN IMMUNODEFICIENCY VIRUS [HIV] DISEASE SNOMED Code(s): 62647563 (3) Leukocytosis Current Visit: Yes Status: Acute Code(s): D72.829 - ELEVATED WHITE BLOOD CELL COUNT, UNSPECIFIED SNOMED Code(s): 084920700 Plan: 1patient with a positive blood culture with staph epi which is usually discrete terence and more likely representing a skin contamination as the patient did not have any evidence of cellulitis or open wound and staph epi not a common bacteria to cause any respiratory infection patient did have a normal chest x- ray and normal procalcitonin, reviewed blood culture has been negative as well patient is currently being monitored off antibiotic therapy 2patient to continue with Biktarvy for her HIV, and monitor clinical course closely 3leukocytosis more likely steroids related we will monitor closely Dictation was produced using [employer] dictation software. please excuse any grammatical, word or spelling errors. Time with Patient: Less than 30
--- NOTE | 2024-01-19 12:56 | P.PN ---
Subjective Progress Note Date: 01/19/24 Principal diagnosis: Reason for follow-up is HIV and positive blood culture Patient is a 53-year female past medical history significant for HIV COPD admitted to the hospital with worsening respiratory status requiring intubation did have a positive blood culture with staph epi prompted this consultation. On today's evaluation that is 01/19/2024, the patient continues to be afebrile, the patient is on 3 L current oxygen and breathing comfortably, the Pt denies having any chest pain or cough, the patient denies having any abdominal pain no vomiting or any diarrhea, mention feeling better. No new labs were obtained today blood culture repeat has been negative Objective - Vital Signs Vital signs: Vital Signs Temp 97.9 F 01/19/24 08:00 Pulse 92 01/19/24 11:58 Resp 16 01/19/24 08:00 BP 114/77 01/19/24 04:03 Pulse Ox 97 01/19/24 08:00 FiO2 40 01/19/24 01:20 Intake & Output 01/18/24 01/19/24 01/19/24 18:59 06:59 18:59 Intake Total 1329 200 Output Total 3080 600 Balance -1751 -600 200 Weight 56.7 kg 53.5 kg 53.5 kg Intake: IV 129 .9NS Pressure Bag 9 Invasive Line 5 20 Potassium Chloride 20 meq 100 In Water For Injection 1 100ml.bag @ 50 mls/hr IVPB Q2H [facility] Rx#: [id number] Oral 1200 200 Output: Urine 3080 600 Other: Voiding Method Indwelling Catheter Toilet Toilet ABP, PAP, CO, CI - Last Documented Arterial Blood Pressure 142/80 - Exam GENERAL DESCRIPTION: Elderly female lying in bed in no distress RESPIRATORY SYSTEM: Unlabored breathing , decreased breath sounds at bases HEART: S1 S2 regular rate and rhythm , ABDOMEN: Soft , no tenderness EXTREMITIES: No edema feet - Labs CBC & Chem 7: 01/18/24 04:15 01/18/24 13:13 Labs: Abnormal Lab Results - Last 24 Hours (Table) 01/18/24 Range/Units 17:01 POC Glucose (mg/dL) 149 H (70-110) mg/dL Assessment and Plan (1) Positive blood culture Current Visit: Yes Status: Acute Code(s): R78.81 - BACTEREMIA SNOMED Code(s): 111480439 (2) HIV disease Current Visit: No Status: Acute Code(s): B20 - HUMAN IMMUNODEFICIENCY VIRUS [HIV] DISEASE SNOMED Code(s): 42017821 (3) Leukocytosis Current Visit: Yes Status: Acute Code(s): D72.829 - ELEVATED WHITE BLOOD CELL COUNT, UNSPECIFIED SNOMED Code(s): 324860606 Plan: 1patient with a positive blood culture with staph epi which is usually discrete terence and more likely representing a skin contamination as the patient did not have any evidence of cellulitis or open wound and staph epi not a common bacteria to cause any respiratory infection patient did have a normal chest x- ray and normal procalcitonin, reviewed blood culture has been negative as well patient is currently being monitored off antibiotic therapy 2patient to continue with Biktarvy for her HIV, and monitor clinical course closely 3leukocytosis more likely steroids related with a white count of 14,000 yesterday no CBC was done today we will repeat a CBC with a.m. lab Dictation was produced using [employer] dictation software. please excuse any grammatical, word or spelling errors. Time with Patient: Less than 30
--- NOTE | 2024-01-19 14:22 | P.PN ---
Subjective Progress Note Date: 01/19/24 Principal diagnosis: Respiratory failure. Patient is a 53-year-old female with past medical history significant for COPD, ventilator dependent respiratory failure with previous tracheostomy and PEG tube, HIV on Biktarvy. In July, she had a prolonged stay in the intensive care unit, she was intubated and placed on the mechanical ventilator. Eventually required tracheostomy and PEG tube. Subsequently, the patient was decannulated. Has had frequent hospitalizations since then, for acute COPD exacerbation; in fact, she just was discharged yesterday for the same. She was denied for noninvasive BiPAP at home. Brought in by EMS early this morning in acute respiratory distress. I did speak to the provider, who states the patient was in severe respiratory distress. Audible wheezing. Not moving much air and was obtunded. Briefly trialed on BiPAP. She was ultimately intubated by the ER provider. Patient is currently being evaluated in in trauma bay 2. Current ventilator settings include assist-control, respiratory rate 24, tidal volume 350, FiO2 100%, PEEP of 5. ABGs done in the settings PaO2 greater than 420, pCO2 87, pH of 7.28. Rate was increased to 28. FiO2 dropped to 40%. She is not very well sedated, fighting the ventilator. Currently, propofol is being titrated up to 50 mcg/kg/min. Peak pressures are elevated at 38, static pressure 22. Significant airway resistance. She has been started on bronchodilators. No endotracheal secretions. No reported aspiration events. Chest x-ray showing a proximal ET tube, that will have to be advanced at least 3 cm. Nasogastric tube courses below the diaphragm. No obvious focal infiltrates or pneumonia. Hyperinflation consistent with COPD. CBC unremarkable. No leukocytosis. CMP: Sodium 132, potassium 3.8, chloride 87, serum bicarb 38, BUN 23, creatinine 0.39, glucose 115. Troponin 0.025. NT proBNP 474. EKG: sinus tachycardia, rate 133 bpm, no obvious acute ischemic changes. Blood pressures remain stable. Bolused one liter normal saline following intubation. Not requiring any vasopressors. Afebrile. She will be admitted to the intensive care unit once bed available. Seen and examined today on 01/12/2024, patient is in the ICU, intubated and mechanically ventilated, I saw her yesterday on consultation when she was in the ER. Patient is now on assist-control rate of 20, tidal volume 325 FiO2 35% and PEEP of 5 ABG showed a pO2 of 88 pCO2 60, pH of 7.44, hence no changes were made in her ventilator settings. Remain on the same vent settings. Patient is requiring propofol at 70 mcg/kg/min, she is also now on Rocephin and vancomycin. Patient did have positive blood cultures, however uncertain whether this is a contamination or true MRSA infection hence empirically she is on Rocephin and vancomycin for now. Chest x-ray showed COPD, no evidence of infiltrates in both lungs. WBC count is 6.9 hemoglobin 11.9 basic metabolic profile is normal renal profile is normal blood cultures preliminary report gram-positive cocci in clusters, could be a contamination, final identification is pending patient remains on bronchodilators and steroids, patient remains on GI DVT prophylaxis and she is on enteral nutrition/for nutritional support clearly the patient is not quite ready to be weaned and extubated considering her underlying COPD will be extremely difficult and a challenge to extubate this patient. In the past patient required tracheostomy and PEG tube placement Patient was seen and examined today on 01/13/2024, remains in the ICU intubated and mechanically ventilated. She is on assist-control rate of 20 tidal volume 325 FiO2 35% PEEP of 5 ABG showed a pO2 of 88 pCO2 60 pH of 7.41. Chest x-ray showed no evidence of active disease, however the endotracheal tube needs to be advanced down about 3 cm. Patient is on propofol at 75 mcg/kg/min, I plan to t ransition to Precedex, awaken the patient, and check weaning parameters even possibly consider a weaning trial on this patient today. WBC count is 5.9 hemoglobin 11.2 basic metabolic profile is normal, renal profile is normal blood sugar is 141 Patient was reevaluated today on 01/14/2024, remains intubated mechanically ventilated, patient is still in the ICU, her ventilator settings are assist-co ntrol rate 20 tidal volume 325 FiO2 35% and PEEP of 5 ABG showed a pO2 of 66 pCO2 of 63 pH of 7.37 patient required more sedation yesterday, she is now on propofol at 70 mcg/kg/min she is also on fentanyl at 1.5 mg/kg/h, IV fluid running at 75 cc/h enteral feeding was initiated via orogastric tube, remains on Rocephin empirically. Chest x-ray showed no evidence of pneumonia. Patient was seen by infectious disease on consultation as she has history of HIV infection. WBC count is 5.6 hemoglobin is 12 platelets are 317, basic metabolic profile is normal bicarb is 37 BUN is 28 creatinine 0.36 vancomycin has been discontinued as it turned out to have contaminated blood cultures The patient is seen today January 15, 2024 in follow-up in the intensive care unit. She is currently intubated on the mechanical ventilator and assist- control mode at a rate of 20, tidal volume 325, FiO2 35% and a PEEP of 5. She is requiring sedation with propofol at 60 mcg/kg/min. She is on fentanyl drip at 2 mcg/kg/h. She is on Cleviprex at 8 mg/h. Normal saline at 75 mL/h. She remains on DuoNeb inhalations, Pulmicort and Perforomist inhalations, IV Solu- Medrol. Antibiotics in the form of ceftriaxone. Chest x-ray reveals no acute pulmonary process. White count 4.9. Hemoglobin 10.5. Platelets 272. Sodium 137. Potassium 4.0. Bicarb 36. BUN 24. Creatinine 0.37. Glucose 130. She is being nourished with vital AF at 20 mL/h which is goal. The patient is seen today January 16, 2024 in follow-up in the intensive care unit. She is awake and alert in no acute distress. She was extubated yesterday. She is currently maintaining good O2 saturations in the 90s on 5 L/min per nasal cannula. White count 10.0. Hemoglobin 12.9. Platelets 311. Sodium 135. Potassium 3.4. Bicarb 37. BUN 13. Creatinine 0.23. Glucose 123. She remains on Pulmicort and performs and elations, DuoNeb inhalations, Solu- Medrol. NicoDerm patch in place. Normal saline at 75 mL/h. She is still requiring Cleviprex at 8 mg/h. She completed a course of antibiotics. Chest x- ray reveals no acute pulmonary process. The patient is seen today January 17, 2024 in follow-up in the intensive care unit. She is awake and alert in no acute distress. Sitting up in bed. Currently on 5 L of oxygen per nasal cannula per minute. She did wear BiPAP about 4 hours last night at settings of 12/5 and 40% FiO2. She is still requiring Cleviprex currently at 5 mg/h. She was initiated on amlodipine 10 mg yesterday. She remains on heparin for DVT prophylaxis. Continued on DuoNeb inhalations, Symbicort, Solu-Medrol. NicoDerm patch in place. White count 9.5. Hemoglobin 13.8. Platelets 317. Sodium 133. Potassium 3.7. Bicarb 39. BUN 15. Creatinine 0.26. Glucose 134. Chest x-ray reveals no acute pulmonary process. Progress note dated January 18, 2024. 53-year-old female seen today in room 265. The patient is on 3 L of oxygen. The patient is getting saline at 10 cc an hour. The patient did use BiPAP last night for 4 hours, with settings of 12/5, and 40%. Clinically, she is feeling much better, and doing much better. White count 14.3, hemoglobin 13.8, hematocrit 43.5, and platelet count normal. Sodium 135, potassium 3.2, chlorides 96, CO2 38, BUN 36, creatinine 0.53. Glucose is 120. Calcium is 8.5. Chest x-ray from 16 January shows no acute pulmonary process. Progress note dated January 27, 2024. 53-year-old female seen in room 380. The patient is doing relatively well. She is on 2 L of oxygen. No IV fluids. She does use the BiPAP device primarily at nighttime, with settings of 12/5 and 40%. No new labs today other than a glucose of 98. The patient denies any significant shortness of breath, cough, wheezing, chest tightness, chest pain or chest pressure. Objective - Vital Signs Vital signs: Vital Signs Temp 97.9 F 01/19/24 08:00 Pulse 92 01/19/24 11:58 Resp 16 01/19/24 08:00 BP 114/77 01/19/24 04:03 Pulse Ox 97 01/19/24 08:00 FiO2 40 01/19/24 01:20 Intake & Output 01/18/24 01/19/24 01/19/24 18:59 06:59 18:59 Intake Total 1329 320 Output Total 3080 600 Balance -1751 -600 320 Weight 56.7 kg 53.5 kg 53.5 kg Intake: IV 129 .9NS Pressure Bag 9 Invasive Line 5 20 Potassium Chloride 20 meq 100 In Water For Injection 1 100ml.bag @ 50 mls/hr IVPB Q2H [facility] Rx#: [id number] Oral 1200 320 Output: Urine 3080 600 Other: Voiding Method Indwelling Catheter Toilet Toilet ABP, PAP, CO, CI - Last Documented Arterial Blood Pressure 142/80 - Exam No acute distress, oriented 3. Currently on 2 L of oxygen. HEENT examination is grossly unremarkable. Mucous membranes are moist. No oral lesions. Neck supple. Full range of motion. No adenopathy thyromegaly or neck vein distention. Cardiovascular examination reveals regular rhythm rate. S1-S2 normal. No S3 or S4. No discernible murmur noted. Lungs reveal diminished bilateral breath sounds. No wheezes rhonchi or crackles. Abdomen soft bowel sounds are heard. No masses or tenderness. Extremities are intact. No cyanosis clubbing or edema. Skin is without rash or lesion. Neurologic examination is brief but nonfocal. - Labs CBC & Chem 7: 01/18/24 04:15 01/18/24 13:13 Labs: Abnormal Lab Results - Last 24 Hours (Table) 01/18/24 Range/Units 17:01 POC Glucose (mg/dL) 149 H (70-110) mg/dL Assessment and Plan Assessment: Acute on chronic hypoxic respiratory failure requiring intubation mechanical ventilation and subsequent extubation on 01/15/2024. Acute exacerbation of severe COPD/end-stage. History of ventilator dependent respiratory failure with previous tracheostomy and PEG tube insertion. Very severe underlying COPD with an FEV1 22% of predicted. Former tobacco dependence. Acquired immunodeficiency syndrome, maintained on Biktarvy. History of left upper lobe lung nodule, previously measuring 9 mm in size. Plan: Plan dated January 18, 2024. The patient is actually doing very well, and can be transferred out of the intensive care unit. Additional recommendations and suggestions are forthcoming. Labs, x-rays, and medications are reviewed. The patient has been weaned down to 3 L. No additional recommendations are made. Prognosis is guarded. The patient is using BiPAP at nighttime. Hopefully we can provide her with the BiPAP, post discharge. Plan dated January 27, 2024. The patient appears to be doing relatively well. She is on a couple liters of oxygen. She does use the BiPAP device at nighttime. Labs, x-rays, and medications are reviewed. Clinically, the patient is doing much better. Hopeful discharge in the near future. We will continue to follow make recommendations along the way. She may benefit from BiPAP, at home, after discharge. We will need to see whether or not she qualifies. Time with Patient: Less than 30
[2024-01-19 16:07] VITALS: PULSE 96
--- NOTE | 2024-01-21 08:15 | P.DS ---
Providers Date of admission: 01/11/24 03:45 Expected date of discharge: 01/19/24 Attending physician: Kendall Irving MD Consults: 01/11/24 03:42 Consult Physician Stat Consulting Provider: Cinthya Villegas Consult Reason/Comments: Acute respiratory failure Do you want consulting provider notified?: Already Contacted 01/13/24 10:41 Consult Physician Routine Consulting Provider: Tushar Zaragoza Consult Reason/Comments: Staph Epi Bacteremia Do you want consulting provider notified?: Yes Primary care physician: Francisco Harvey Hospital Course: Final diagnosis Acute on chronic hypercapnic hypoxemic respiratory failure secondary to COPD exacerbation with acute respiratory failure and being obtunded requiring mechanical ventilation on 01/11/2024, status post successful extubation 01/15/2024, currently on 4 L nasal cannula History of severe COPD and chronically wears 4 L outpatient, FEV1 is 22% Staph EPI bacteremia likely contaminent species. HIV on Biktarvy History of depression History of CVA/TIA History of anxiety/Depression/Panic disorder Continued ongoing nicotine dependence Hx of prolonged intubation requiring trach/peg status post reversal. History of alcoholism GI prophylaxis DVT prophylaxis Full Code Discharge disposition Patient is being discharged in a stable condition with guarded prognosis to home with home care being arranged. Patient will follow-up with Dr. Harvey and working with visiting physicians outpatient to establish in the outpatient setting upon discharge. Patient is to continue with prednisone taper and close outpatient follow-up with pulmonary as scheduled. Total time taken is greater than 35 minutes. Hospital course This is a 53-year-old female who was recently admitted with increasing shortness of breath and hypoxic respiratory failure requiring mechanical ventilation in ICU. Patient was for COPD exacerbation with prolonged hospitalization recommending rehab and patient evaluated by PT/OT therapy agreeable although patient reports she wanted to go home and will be staying with her brother for a few days. Strongly recommended rehab although patient was adamant she was going home. Patient had been cleared by consultations for discharge home with close outpatient follow-up. Please refer to other consultation notes for further HPI. Currently no reports of chest pain, shortness of breath, or palpitations. Patient is afebrile. No reports of nausea or vomiting and patient is tolerating diet. Patient will be discharged home today. Extremely high risk for rehospitalization and patient has had multiple hospitalizations and ER visits for respiratory failure. Physical exam: Gen: This is a 53-year-old female who is awake, alert and oriented x 3, thin built, elderly appearing HEENT: Head is atraumatic, normocephalic. Pupils equal, round. Sclerae is anicteric. NECK: Supple. No JVD. No lymphadenopathy. No thyromegaly. LUNGS: Diminished breath sounds bilaterally with coarse rhonchi. No intercostal retractions. HEART: Regular rate and rhythm. No murmur. ABDOMEN: Soft. Bowel sounds are present. No masses. No tenderness. EXTREMITIES: No pedal edema. No calf tenderness. NEUROLOGICAL: Patient is awake, alert and oriented x3. Cranial nerves 2 through 12 are grossly intact. Diffusely weak Please refer to medication reconciliation sheet for a list of medications. The impression and plan of care has been dictated by Deirdre Ashley, Nurse Practitioner as directed. Dr. Waqar MD I have performed a history and examination and MDM of this patient, discussed the same with the dictator, and agree with the dictator's assessment and plan as written ,documented as a scribe. Based on total visit time, I have performed more than 50% of the visit. Patient Condition at Discharge: Fair Plan - Discharge Summary Discharge Rx Participant: Yes New Discharge Prescriptions: New Losartan [Cozaar] 50 mg PO BID #60 tab amLODIPine [Norvasc] 10 mg PO DAILY #30 tab predniSONE See Taper PO DIRECTED #30 tab Ipratropium-Albuterol Nebulize [Duoneb 0.5 mg-3 mg/3 ml Soln] 3 ml INHALATION RT-QID #100 each Nicotine 14Mg/24Hr Patch [Habitrol] 1 patch TRANSDERM DAILY patch Continue Albuterol Sulfate [Albuterol Sulfate Hfa] 2 puff PO RT-Q4H PRN PRN Reason: Shortness Of Breath Ipratropium-Albuterol Nebulize [Duoneb 0.5 mg-3 mg/3 ml Soln] 3 ml INHALATION RT-Q4H PRN PRN Reason: Shortness Of Breath Famotidine [Pepcid] 20 mg PO BID ALPRAZolam [Xanax] 0.5 mg PO BID Ibuprofen [Motrin Ib] 200 - 400 mg PO Q6H PRN PRN Reason: Pain Or Fever > 100.5 Fluticasone Propionate [Flonase Allergy Relief] 1 spray EA NOSTRIL DAILY PRN PRN Reason: Congestion Fluticasone/Umeclidin/Vilanter [Trelegy Ellipta 200-62.5-25] 1 puff INHALATION RT-DAILY Sulfamethox-Tmp 800-160Mg [Bactrim DS 800-160 mg] 1 tab PO DIRECTED Bictegrav/Emtricit/Tenofov Ala [Biktarvy 50-200-25 mg Tablet] 1 tab PO DAILY Ondansetron [Zofran] 4 mg PO BID PRN PRN Reason: Nausea Simethicone [Gas-X] 125 - 250 mg PO ACHS PRN MDD 4 pills PRN Reason: gas Diurex 2 tab PO Q4H PRN MDD 6 tabs PRN Reason: weight gain/bloating Mirtazapine [Remeron] 15 mg PO HS Discontinued predniSONE [Deltasone] See Taper PO DIRECTED Discharge Medication List Albuterol Sulfate [Albuterol Sulfate Hfa] 2 puff PO RT-Q4H PRN 03/14/22 [History] Bictegrav/Emtricit/Tenofov Ala [Biktarvy 50-200-25 mg Tablet] 1 tab PO DAILY 08/10/23 [History] Ipratropium-Albuterol Nebulize [Duoneb 0.5 mg-3 mg/3 ml Soln] 3 ml INHALATION RT-Q4H PRN 08/10/23 [History] Famotidine [Pepcid] 20 mg PO BID 09/30/23 [History] Ondansetron [Zofran] 4 mg PO BID PRN 11/05/23 [History] ALPRAZolam [Xanax] 0.5 mg PO BID 11/27/23 [History] Diurex 2 tab PO Q4H PRN MDD 6 tabs 11/27/23 [History] Fluticasone Propionate [Flonase Allergy Relief] 1 spray EA NOSTRIL DAILY PRN 11/27/23 [History] Ibuprofen [Motrin Ib] 200 - 400 mg PO Q6H PRN 11/27/23 [History] Simethicone [Gas-X] 125 - 250 mg PO ACHS PRN MDD 4 pills 11/27/23 [History] Fluticasone/Umeclidin/Vilanter [Trelegy Ellipta 200-62.5-25] 1 puff INHALATION RT-DAILY 01/04/24 [History] Mirtazapine [Remeron] 15 mg PO HS 01/04/24 [History] Sulfamethox-Tmp 800-160Mg [Bactrim DS 800-160 mg] 1 tab PO DIRECTED 01/06/24 [History] Ipratropium-Albuterol Nebulize [Duoneb 0.5 mg-3 mg/3 ml Soln] 3 ml INHALATION RT-QID #100 each 01/19/24 [Rx] Losartan [Cozaar] 50 mg PO BID #60 tab 01/19/24 [Rx] Nicotine 14Mg/24Hr Patch [Habitrol] 1 patch TRANSDERM DAILY patch 01/19/24 [Rx] amLODIPine [Norvasc] 10 mg PO DAILY #30 tab 01/19/24 [Rx] predniSONE See Taper PO DIRECTED #30 tab 01/19/24 [Rx] Follow up Appointment(s)/Referral(s): Davin Pro DO [Doctor of Osteopathic Medicine] - 01/22/24 8:30 am Francisco Harvey [Primary Care Provider] - 1-2 days Residential Home[facility] [NON-STAFF] - Activity/Diet/Wound Care/Special Instructions: Activity limited until follow-up Follow-up with primary care provider as you discussed previously regarding a visiting physician Continue taking medications as prescribed Follow-up with pulmonary outpatient Continue prednisone taper Avoid smoking use and exposure Discharge Disposition: HOME WITH HOME HEALTH SERVICES
== END 2024-01-19 16:49 | disposition home health service (06) | DRG 207 ==
LOC: EC 00:38 → 2SICU 03:45 → 3SCARD 01-18 17:12
PROVIDERS: ADMIT Internal Medicine; ATTEND Internal Medicine
PROC: 5A1955Z Respiratory Ventilation, Greater than 96 Consecutive Hours (ICD-10-PCS; principal; 2024-01-11)
PROC: 02HV33Z Insertion of Infusion Device into Superior Vena Cava, Percutaneous Approach (ICD-10-PCS; 2024-01-11)
PROC: 0BH18EZ Insertion of Endotracheal Airway into Trachea, Via Natural or Artificial Opening Endoscopic (ICD-10-PCS; 2024-01-11)
PROC: 03HY32Z Insertion of Monitoring Device into Upper Artery, Percutaneous Approach (ICD-10-PCS; 2024-01-12)
PROC: 4A133B1 Monitoring of Arterial Pressure, Peripheral, Percutaneous Approach (ICD-10-PCS; 2024-01-12)
PROC: 4A133J1 Monitoring of Arterial Pulse, Peripheral, Percutaneous Approach (ICD-10-PCS; 2024-01-12)
DX: J44.1 Chronic obstructive pulmonary disease with (acute) exacerbation (principal); J96.21 Acute and chronic respiratory failure with hypoxia; J96.22 Acute and chronic respiratory failure with hypercapnia; R78.81 Bacteremia; B20 Human immunodeficiency virus [HIV] disease; F10.20 Alcohol dependence, uncomplicated; F32.A Depression, unspecified; F41.0 Panic disorder [episodic paroxysmal anxiety]; R91.1 Solitary pulmonary nodule; Z86.73 Personal history of transient ischemic attack (TIA), and cerebral infarction without residual deficits; Z87.891 Personal history of nicotine dependence; Z11.52 Encounter for screening for COVID-19; Z79.899 Other long term (current) drug therapy; Z79.51 Long term (current) use of inhaled steroids
CPT/HCPCS: 31500; 36415; 36556; 36600; 70450; 71045; 80048; 80053; 80202; 80306; 82374; 82435; 82565; 82803; 82805; 82947; 83605; 83735; 83880; 84132; 84145; 84295; 84484; 84520; 85025; 85610; 85730; 87040; 87070; 87077; 87186; 87205; 87636; 93005; 94002; 94003; 94640; 94660; 96365; 96366; 96368; 96375; 96376; 99291

== ENCOUNTER 2024-01-20 20:19 | Observation (INO) | payer MEDICARE, OTHER ==
[2024-01-20 20:25] VITALS: TEMP 98.3
--- NOTE | 2024-01-20 20:26 | ED ---
SOB HPI - General Chief Complaint: Shortness of Breath Stated Complaint: TK Time Seen by Provider: 01/20/24 20:21 Source: patient, EMS, RN notes reviewed, old records reviewed Mode of arrival: EMS Limitations: no limitations - History of Present Illness Initial Comments: This is a 53-year-old female to the ER for evaluation today. This patient presents today for evaluation regards to significant weakness shortness of breath cough and congestion history of COPD and asthma. Severe shortness of breath presents by EMS difficult to provide history secondary to on BiPAP currently MD Complaint: shortness of breath, cough, chest pain, "asthma attack", anxiety -: days(s) Radiation: back Severity: moderate Severity scale (1-10): 7 Quality: aching Consistency: constant Improves With: nothing Worsens With: nothing Known History Of: COPD, asthma Context: recent URI, recent illness Associated Symptoms: cough, sputum production Treatments Prior to Arrival: none - Related Data Home Medications Medication Instructions Recorded Confirmed Albuterol Sulfate [Albuterol 2 puff INHALATION RT-Q4H PRN 03/14/22 01/31/24 Sulfate Hfa] Bictegrav/Emtricit/Tenofov Ala 1 tab PO DAILY 08/10/23 01/31/24 [Biktarvy 50-200-25 mg Tablet] Ipratropium-Albuterol Nebulize 3 ml INHALATION RT-Q4H PRN 08/10/23 01/31/24 [Duoneb 0.5 mg-3 mg/3 ml Soln] Famotidine [Pepcid] 20 mg PO BID 09/30/23 01/31/24 Ondansetron [Zofran] 4 mg PO BID PRN 11/05/23 01/31/24 ALPRAZolam [Xanax] 0.5 mg PO BID 11/27/23 01/31/24 Diurex 2 tab PO Q4H PRN MDD 6 tabs 11/27/23 01/31/24 Fluticasone Propionate [Flonase 1 spray EA NOSTRIL DAILY PRN 11/27/23 01/31/24 Allergy Relief] Ibuprofen [Motrin Ib] 200 - 400 mg PO Q6H PRN 11/27/23 01/31/24 Simethicone [Gas-X] 125 - 250 mg PO ACHS PRN 11/27/23 01/31/24 Fluticasone/Umeclidin/Vilanter 1 puff INHALATION RT-DAILY 01/04/24 01/31/24 [Trelegy Ellipta 200-62.5-25] Mirtazapine [Remeron] 15 mg PO HS 01/04/24 01/31/24 Losartan [Cozaar] 50 mg PO DIRECTED 01/21/24 01/31/24 Nicotine 14Mg/24Hr Patch [Habitrol] 1 patch TRANSDERM DIRECTED 01/21/24 01/31/24 amLODIPine [Norvasc] 10 mg PO DIRECTED 01/21/24 01/31/24 Previous Rx's Medication Instructions Recorded Budesonide-Formot 160-4.5 Mcg 2 puff INHALATION RT-BID #1 each 01/21/24 [Symbicort 160-4.5 Mcg Inhaler] Ipratropium-Albuterol Nebulize 3 ml INHALATION RT-QID each 01/21/24 [Duoneb 0.5 mg-3 mg/3 ml Soln] Allergies Allergy/AdvReac Type Severity Reaction Status Date / Time Penicillins Allergy Anaphylaxis Verified 01/31/24 13:53 Milk Containing Products AdvReac Nausea & Verified 01/31/24 13:53 (Dairy) Vomiting & Diarrhea Review of Systems ROS Statement: Those systems with pertinent positive or pertinent negative responses have been documented in the HPI. ROS Other: All systems not noted in ROS Statement are negative. Past Medical History Past Medical History: Asthma, Blood Disorder, COPD, CVA/TIA Additional Past Medical History / Comment(s): hiv History of Any Multi-Drug Resistant Organisms: None Reported Past Surgical History: No Surgical Hx Reported Additional Past Surgical History / Comment(s): peg and tracheostomy reversal 2023 Past Anesthesia/Blood Transfusion Reactions: No Reported Reaction Past Psychological History: Anxiety, Depression, Panic Disorder Smoking Status: Former smoker Past Alcohol Use History: None Reported, Occasional Past Drug Use History: None Reported - Past Family History Mother History Unknown: Yes General Exam Limitations: no limitations General appearance: alert, in no apparent distress Head exam: Present: atraumatic, normocephalic, normal inspection Eye exam: Present: normal appearance, PERRL, EOMI. Absent: scleral icterus, con junctival injection, periorbital swelling ENT exam: Present: normal exam, mucous membranes moist Neck exam: Present: normal inspection. Absent: tenderness, meningismus, lymphadenopathy Respiratory exam: Present: normal lung sounds bilaterally. Absent: respiratory distress, wheezes, rales, rhonchi, stridor Cardiovascular Exam: Present: regular rate, normal rhythm, normal heart sounds. Absent: systolic murmur, diastolic murmur, rubs, gallop, clicks GI/Abdominal exam: Present: soft, normal bowel sounds. Absent: distended, tenderness, guarding, rebound, rigid Extremities exam: Present: normal inspection, full ROM, normal capillary refill. Absent: tenderness, pedal edema, joint swelling, calf tenderness Back exam: Present: normal inspection Neurological exam: Present: alert, oriented X3, CN II-XII intact Psychiatric exam: Present: normal affect, normal mood Skin exam: Present: warm, dry, intact, normal color. Absent: rash Course Vital Signs 01/20/24 01/20/24 01/20/24 20:20 20:28 21:16 Temperature 98.3 F Pulse Rate 124 H 115 H Respiratory 22 22 Rate Blood Pressure 123/101 124/87 O2 Sat by Pulse 99 100 Oximetry Fraction of 40 Inspired Oxygen (FIO2) 01/20/24 01/20/24 01/20/24 22:03 22:08 22:14 Temperature Pulse Rate 95 106 H 104 H Respiratory 20 20 20 Rate Blood Pressure 139/92 O2 Sat by Pulse 100 Oximetry Fraction of Inspired Oxygen (FIO2) 01/20/24 01/21/24 01/21/24 23:26 01:26 05:00 Temperature Pulse Rate 88 95 84 Respiratory 18 22 16 Rate Blood Pressure 133/88 108/70 O2 Sat by Pulse 100 99 98 Oximetry Fraction of Inspired Oxygen (FIO2) 01/21/24 01/21/24 01/21/24 06:55 07:48 07:59 Temperature Pulse Rate 78 80 87 Respiratory 18 22 Rate Blood Pressure 124/81 124/81 O2 Sat by Pulse 99 100 Oximetry Fraction of Inspired Oxygen (FIO2) 01/21/24 01/21/24 01/21/24 11:21 11:33 12:20 Temperature Pulse Rate 97 98 78 Respiratory 18 Rate Blood Pressure 124/81 O2 Sat by Pulse 96 Oximetry Fraction of Inspired Oxygen (FIO2) - Reevaluation(s) Reevaluation #1: 09/21/24 21:22 Records reviewed Reevaluation #2: 01/20/24 21:22 Patient symptoms unchanged Reevaluation #3: 01/20/24 21:22 Patient informed of results and questions answered Reevaluation #4: Was pt. sent in by a medical professional or institution (, MARISSA, ASSISTANT PROFESSOR OF MATHEMATICS, urgent care, hospital, or [facility]...) When possible be specific @ -no Did you speak to anyone other than the patient for history (EMS, parent, family, police, friend...)? What history was obtained from this source @ -no Did you review nursing and triage notes (agree or disagree)? Why? @ -agree Are old charts reviewed (outside hosp., previous admission, EMS record, old EKG, old radiological studies, urgent care reports/EKG's, [facility] records)? Report findings @ -yes Differential Diagnosis (chest pain, altered mental status, abdominal pain women, abdominal pain men, vaginal bleeding, weakness, fever, dyspnea, syncope, headache, dizziness, GI bleed, back pain, seizure, CVA, palpatations, mental health, musculoskeletal)? @ -prior EKG interpreted by me (3pts min.). @ -yes X-rays interpreted by me (1pt min.). @ -yes negative for acute disease CT interpreted by me (1pt min.). @ -no U/S interpreted by me (1pt. min.). @ -no What testing was considered but not performed or refused? (CT, X-rays, U/S, labs)? Why? @ -none What meds were considered but not given or refused? Why? @ -none Did you discuss the management of the patient with other professionals (professionals i.e. MARISSA Madison, ASSISTANT PROFESSOR OF MATHEMATICS, lab, RT, psych nurse, social service director, capacity manager, teacher, equal employment opportunity officer, pillowcase sewer)? Give summary @ -no Was smoking cessation discussed for >3mins.? @ -no Was critical care preformed (if so, how long)? @ -yes31 Were there social determinants of health that impacted care today? How? (Homelessness, low income, unemployed, alcoholism, drug addiction, transportation, low edu. Level, literacy, decrease access to med. care, custodial, rehab)? @ -none Was there de-escalation of care discussed even if they declined (Discuss DNR or withdrawal of care, Hospice)? DNR status @ -no What co-morbidities impacted this encounter? (DM, HTN, Smoking, COPD, CAD, Cancer, CVA, ARF, Chemo, Hep., AIDS, mental health diagnosis, sleep apnea, morbid obesity)? @ -none Was patient admitted / discharged? Hospital course, mention meds given and route, prescriptions, significant lab abnormalities, going to OR and other pertinent info. @ - 53 female to the ER for evaluation of severe COPD severe COPD exacerbation without medications at home. Patient will be admitted for further supportive care Admitted Undiagnosed new problem with uncertain prognosis? @ -no Drug Therapy requiring intensive monitoring for toxicity (Heparin, Nitro, Insulin, Cardizem)? @ -no Were any procedures done? @ -no Diagnosis/symptom? @ -COPD and hypoxia Acute, or Chronic, or Acute on Chronic? @ -Acute Uncomplicated (without systemic symptoms) or Complicated (systemic symptoms)? @ -Complicated Side effects of treatment? @ -no Exacerbation, Progression, or Severe Exacerbation? @ -exacerbation Poses a threat to life or bodily function? How? (Chest pain, [place], CA, pneumonia, PE, COPD, DKA, ARF, appy, cholecystitis, CVA, Diverticulitis, Homicidal, Suicidal, threat to staff... and all critical care pts) @ -yes significant respiratory distress Reevaluation #5: Differential Dyspnea: Coronary syndrome, arrhythmia, tamponade, asthma, COPD, pulmonary embolism, pneumonia, pneumothorax, pulmonary effusion, anaphylaxis, diabetic ketoacidosis, flailed chest, pulmonary contusion, diaphragmatic rupture, anemia, neuromuscular, this is not meant to be an all-inclusive list. - Consultations Consultation #1: Spoke with admitting physicians who agrees to admit this patient Medical Decision Making - Medical Decision Making 53 female to the ER for evaluation of severe COPD severe COPD exacerbation without medications at home. Patient will be admitted for further supportive care - Lab Data Result diagrams: 01/21/24 07:22 01/21/24 07:22 - EKG Data -: EKG Interpreted by Me (EKG is sinus tachycardia 124 SD 104 QRS 70 QTc 349) - Radiology Data Radiology results: report reviewed (Chest x-ray is negative for acute disease), image reviewed Critical Care Time Critical Care Time: Yes Total Critical Care Time: 31 Disposition Clinical Impression: COPD (chronic obstructive pulmonary disease), Hypoxia, Acute respiratory distress, Acute exacerbation of chronic obstructive pulmonary disease, Asthma with acute exacerbation, Acute respiratory failure Disposition: ADMITTED IP TO THIS HOSP Condition: Serious Is patient prescribed a controlled substance at d/c from ED?: No Time of Disposition: 21:30
--- NOTE | 2024-01-20 21:10 | XR ---
EXAMINATION TYPE: XR chest 1V portable DATE OF EXAM: 01/20/2024 COMPARISON: 01/17/2024 INDICATION: Short of breath asthma COPD TECHNIQUE: Single frontal view of the chest is obtained. FINDINGS: The heart size is normal. The pulmonary vasculature is normal. The lungs are clear. IMPRESSION: 1. No acute pulmonary process. [facility], , 01/20/2024 9:08 PM
[2024-01-20] MEDS ORDERED: ONDANSETRON 4 MG/2 ML VIAL IVP PRN (21:23)
[2024-01-20] MEDS ORDERED: MORPHINE SULFATE 4 MG/ML SYRINGE IV PRN (21:23)
[2024-01-20] MEDS ORDERED: NALOXONE 0.4 MG/ML 1 ML VIAL IV PRN (21:23)
[2024-01-20] MEDS: SODIUM CHLORIDE 0.9% 1,000 ML IV STA (21:53)
[2024-01-20] MEDS: methylPREDNISolone SOD SUCCI 125 MG/2 ML VIAL IV STA (22:00)
[2024-01-20] MEDS: IPRATROPIUM-ALBUTEROL 3 ML NEB INHALATION STA ×2 (22:07→22:08)
[2024-01-20 22:09] LABS: Basophils # (A) 0.1 k/uL (0-0.2); Basophils % (A) 1 %; Eosinophils # (A) 0.1 k/uL (0-0.7); Eosinophils % (A) 1 %; HCT 47.1 % (34.0-46.0); HGB 14.8 gm/dL (11.4-16.0); Hypochromasia Slight; Lymphocytes # (A) 2.9 k/uL (1.0-4.8); Lymphocytes % (A) 23 %; MCH 30.3 pg (25.0-35.0); MCHC 31.4 g/dL (31.0-37.0); MCV 96.6 fL (80.0-100.0); Mean Platelet Volume 6.7; Monocytes # (A) 0.6 k/uL (0-1.0); Monocytes % (A) 5 %; Neutrophils # (A) 8.6 k/uL (1.3-7.7); Neutrophils % (A) 69 %; Platelet Count 329 k/uL (150-450); RBC 4.87 m/uL (3.80-5.40); RDW 15.3 % (11.5-15.5); WBC 12.4 k/uL (3.8-10.6)
[2024-01-20 22:28] LABS: ALT 60 U/L (4-34); AST 42 U/L (14-36); African American GFR (CKD) >90 (>60 ml/min/1.73 sqM); Alkaline Phosphatase 96 U/L (38-126); Anion Gap 4 mmol/L; Blood Urea Nitrogen 27 mg/dL (7-17); Calcium 9.1 mg/dL (8.4-10.2); Carbon Dioxide 30 mmol/L (22-30); Chloride 102 mmol/L (98-107); Glucose 84 mg/dL (74-99); Non-African American GFR(CKD) >90 (>60 ml/min/1.73 sqM); Sodium 136 mmol/L (137-145); Total Bilirubin 0.8 mg/dL (0.2-1.3)
[2024-01-20 22:36] LABS: NT-Pro-B-Type Natriuretic Pept 654 pg/mL
[2024-01-20 22:39] LABS: INR 0.9 (<1.2); Prothrombin Time 10.4 sec (10.0-12.5)
[2024-01-20 22:57] LABS: VBG PH 7.37 (7.31-7.41)
[2024-01-20 23:03] LABS: Partial Thromboplastin Time 18.8 sec (22.0-30.0)
[2024-01-21] MEDS: SODIUM CHLORIDE 0.9% 1,000 ML IV SCH (01:22)
[2024-01-21] MEDS: methylPREDNISolone SOD SUCCI 125 MG/2 ML VIAL IV SCH (01:36)
[2024-01-21 06:56] VITALS: BP 124/81
[2024-01-21] MEDS: ALBUTEROL NEBULIZED 2.5 MG/3 ML INHALATION SCH (07:48)
[2024-01-21 08:09] LABS: ALT 49 U/L (4-34); AST 29 U/L (14-36); African American GFR (CKD) >90 (>60 ml/min/1.73 sqM); Albumin 3.4 g/dL (3.5-5.0); Alkaline Phosphatase 68 U/L (38-126); Anion Gap 1 mmol/L; Blood Urea Nitrogen 21 mg/dL (7-17); Calcium 8.6 mg/dL (8.4-10.2); Carbon Dioxide 34 mmol/L (22-30); Chloride 99 mmol/L (98-107); Glucose 154 mg/dL (74-99); Lipase 90 U/L (23-300); Magnesium 1.9 mg/dL (1.6-2.3); Non-African American GFR(CKD) >90 (>60 ml/min/1.73 sqM); Phosphorus 3.8 mg/dL (2.5-4.5); Potassium 3.9 mmol/L (3.5-5.1); Sodium 134 mmol/L (137-145); Total Bilirubin 0.9 mg/dL (0.2-1.3); Total Protein 5.3 g/dL (6.3-8.2)
[2024-01-21] MEDS ORDERED: IPRATROPIUM-ALBUTEROL 3 ML NEB INHALATION PRN (08:29)
[2024-01-21 08:46] LABS: Basophils % (A) 0 %; Eosinophils % (A) 0 %; HCT 39.7 % (34.0-46.0); HGB 12.5 gm/dL (11.4-16.0); Hypochromasia Moderate; Lymphocytes # (A) 0.5 k/uL (1.0-4.8); Lymphocytes % (A) 5 %; MCH 30.8 pg (25.0-35.0); MCHC 31.6 g/dL (31.0-37.0); MCV 97.5 fL (80.0-100.0); Mean Platelet Volume 7.1; Monocytes # (A) 0.2 k/uL (0-1.0); Monocytes % (A) 2 %; Neutrophils % (A) 92 %; Platelet Count 266 k/uL (150-450); RBC 4.07 m/uL (3.80-5.40); RDW 15.4 % (11.5-15.5); WBC 8.7 k/uL (3.8-10.6)
[2024-01-21] MEDS: predniSONE 20 MG TAB PO SCH (10:08)
[2024-01-21] MEDS: IPRATROPIUM-ALBUTEROL 3 ML NEB INHALATION SCH (11:20)
--- NOTE | 2024-01-21 12:07 | P.CNPUL ---
History of Present Illness Consult date: 01/21/24 Requesting physician: Cheli Zavaleta Reason for consult: dyspnea, cough, COPD, hypoxemia Chief complaint: Shortness of breath. History of present illness: Pulmonary consult dated January 21, 2024. This is a 53-year-old female well-known to our service. The patient was recently discharged from the hospital on January 18. The patient was admitted with a diagnosis of respiratory failure, requiring intubation and mechanical ventilation. She was successfully extubated on January 14. After being discharged on January 18, she realized that the pharmacy was not open, so she could not get her supplies, including corticosteroids, and medications for her breathing machine. Hence she came back into the ER. She states that her breathing was getting worse. She was placed on BiPAP at 12/6 and 40%. Currently she is on 2 L oxygen by nasal cannula. She seen in the emergency department, trauma room #2. The patient has a history of severe COPD. Her FEV1 is 22% of predicted. Other medical history includes ventilator dependent respiratory failure with a previous admission that required long-term mechanical ventilation, and subsequent tracheostomy and PEG tube placement. She has a history of chronic tobacco use, a 9 mm solitary pulmonary nodule left upper lobe, and a history of HIV. Current labs include a white count 8.7, hemoglobin 12.5, hematocrit 39.7, and a platelet count is normal. Sodium 134, potassium 3.9, chlorides 99, CO2 34, BUN 21, creatinine 0.28. The patient tested negative for influenza, RSV, coronavirus. The patient's chest x-ray was consistent with COPD. I placed the patient on DuoNebs, Symbicort, and prednisone 40 mg, in the emergency department. Review of Systems REVIEW OF SYSTEMS: CONSTITUTIONAL: [Negative.] NEUROLOGIC: [ Negative.] HEENT: [ Negative.] CARDIAC: [Negative.] PULMONARY: Acute on chronic dyspnea. GI: [Negative.] : [Negative.] RHEUMATOLOGIC: [ Negative.] IMMUNOLOGIC: [ Negative.] ENDOCRINE: [Negative. ] DERMATOLOGIC: [Negative.] Past Medical History Past Medical History: Asthma, Blood Disorder, COPD, CVA/TIA Additional Past Medical History / Comment(s): hiv History of Any Multi-Drug Resistant Organisms: None Reported Past Surgical History: No Surgical Hx Reported Additional Past Surgical History / Comment(s): peg and tracheostomy reversal Past Anesthesia/Blood Transfusion Reactions: No Reported Reaction Past Psychological History: Anxiety, Depression, Panic Disorder Smoking Status: Former smoker Past Alcohol Use History: None Reported, Occasional Past Drug Use History: None Reported - Past Family History Mother History Unknown: Yes Medications and Allergies Home Medications Medication Instructions Recorded Confirmed Type Albuterol Sulfate [Albuterol 2 puff INHALATION RT-Q4H PRN 03/14/22 01/21/24 History Sulfate Hfa] Bictegrav/Emtricit/Tenofov Ala 1 tab PO DAILY 08/10/23 01/21/24 History [Biktarvy 50-200-25 mg Tablet] Ipratropium-Albuterol Nebulize 3 ml INHALATION RT-Q4H PRN 08/10/23 01/21/24 History [Duoneb 0.5 mg-3 mg/3 ml Soln] Famotidine [Pepcid] 20 mg PO BID 09/30/23 01/21/24 History Ondansetron [Zofran] 4 mg PO BID PRN 11/05/23 01/21/24 History ALPRAZolam [Xanax] 0.5 mg PO BID 11/27/23 01/21/24 History Diurex 2 tab PO Q4H PRN MDD 6 tabs 11/27/23 01/21/24 History Fluticasone Propionate [Flonase 1 spray EA NOSTRIL DAILY PRN 11/27/23 01/21/24 History Allergy Relief] Ibuprofen [Motrin Ib] 200 - 400 mg PO Q6H PRN 11/27/23 01/21/24 History Simethicone [Gas-X] 125 - 250 mg PO ACHS PRN MDD 4 11/27/23 01/21/24 History pills Fluticasone/Umeclidin/Vilanter 1 puff INHALATION RT-DAILY 01/04/24 01/21/24 History [Trelegy Ellipta 200-62.5-25] Mirtazapine [Remeron] 15 mg PO HS 01/04/24 01/21/24 History Sulfamethox-Tmp 800-160Mg [Bactrim 1 tab PO DIRECTED 01/06/24 01/21/24 History DS 800-160 mg] Ipratropium-Albuterol Nebulize 3 ml INHALATION RT-QID #100 each 01/19/24 01/21/24 Rx [Duoneb 0.5 mg-3 mg/3 ml Soln] predniSONE See Taper PO DIRECTED #30 tab 01/19/24 01/21/24 Rx Losartan [Cozaar] 50 mg PO DIRECTED 01/21/24 01/21/24 History Nicotine 14Mg/24Hr Patch [Habitrol] 1 patch TRANSDERM DIRECTED 01/21/24 01/21/24 History amLODIPine [Norvasc] 10 mg PO DIRECTED 01/21/24 01/21/24 History Allergies Allergy/AdvReac Type Severity Reaction Status Date / Time Penicillins Allergy Anaphylaxis Verified 01/21/24 08:30 Milk Containing Products AdvReac Nausea & Verified 01/21/24 08:30 (Dairy) Vomiting & Diarrhea Physical Exam Osteopathic Statement: *. No significant issues noted on an osteopathic structural exam other than those noted in the History and Physical/Consult. Vitals: Vital Signs Temp Pulse Resp BP Pulse Ox FiO2 01/21/24 11:33 98 01/21/24 11:21 97 01/21/24 07:59 87 22 124/81 100 01/21/24 07:48 80 01/21/24 06:55 78 18 124/81 99 01/21/24 05:00 84 16 108/70 98 01/21/24 01:26 95 22 133/88 99 01/20/24 23:26 88 18 100 01/20/24 22:14 104 H 20 01/20/24 22:08 106 H 20 01/20/24 22:03 95 20 139/92 100 01/20/24 21:16 115 H 22 124/87 100 01/20/24 20:28 40 01/20/24 20:20 98.3 F 124 H 22 123/101 99 Intake and Output 01/20/24 01/21/24 01/21/24 22:59 06:59 14:59 Other: Weight 50.349 kg No acute distress, oriented 3. Currently on 2 L nasal cannula. No conversational dyspnea, or use of accessory muscles. HEENT examination is grossly unremarkable. Mucous membranes are moist. No oral lesions. Neck supple. Full range of motion. No adenopathy thyromegaly or neck vein distention. Well-healed scar from previous tracheostomy. Cardiovascular examination reveals regular rhythm rate. S1-S2 normal. No S3 or S4. No discernible murmur noted. Lungs reveal clear but severely diminished breath sounds. Minimal scattered rhonchi. No wheezes or crackles. Breath sounds equal. Abdomen soft bowel sounds are heard. No masses or tenderness. Extremities are intact. No cyanosis clubbing or edema. Skin is without rash or lesion. Neurologic examination is brief but nonfocal. Results - Laboratory Findings CBC and BMP: 01/21/24 07:22 01/21/24 07:22 PT/INR, D-dimer PT 10.4 sec (10.0-12.5) 01/20/24 21:40 INR 0.9 (<1.2) 01/20/24 21:40 Abnormal lab findings: Abnormal Labs 01/20/24 01/20/24 01/20/24 21:40 21:40 21:40 WBC 12.4 H Hct 47.1 H Neutrophils # 8.6 H Lymphocytes # APTT 18.8 L VBG pCO2 VBG HCO3 Sodium 136 L Carbon Dioxide BUN 27 H Creatinine 0.43 L Glucose AST 42 H ALT 60 H Troponin I Total Protein 6.0 L Albumin 01/20/24 01/20/24 01/21/24 21:40 21:40 00:20 WBC Hct Neutrophils # Lymphocytes # APTT VBG pCO2 61 H VBG HCO3 36 H Sodium Carbon Dioxide BUN Creatinine Glucose AST ALT Troponin I 0.042 H* 0.038 H* Total Protein Albumin 01/21/24 01/21/24 07:22 07:22 WBC Hct Neutrophils # 8.0 H Lymphocytes # 0.5 L APTT VBG pCO2 VBG HCO3 Sodium 134 L Carbon Dioxide 34 H BUN 21 H Creatinine 0.28 L Glucose 154 H AST ALT 49 H Troponin I Total Protein 5.3 L Albumin 3.4 L - Diagnostic Findings Chest x-ray: image reviewed Assessment and Plan Assessment: Recent acute COPD exacerbation, requiring intubation and mechanical ventilation, with successful extubation on January 15, 2024, and hospital discharge on January 19, 2024. Previous episode of ventilator dependent respiratory failure, requiring long- term mechanical ventilation, with subsequent tracheostomy and PEG tube placement. History of severe/stage IV COPD, with an FEV1 that is 22% of predicted. Previous history of heavy tobacco use. History of HIV infection. 9 mm left upper lobe pulmonary nodule, being followed. Plan: Plan dated January 21, 2024. The patient apparently was sent home, on January 18, but could not get her supplies, such as corticosteroids, and medications for the breathing machine. For that reason, she came back into the hospital, the subsequent day, January 19. She states that if she could have gotten her supplies, she would never have come back to the hospital. She is seen in the emergency department, trauma room #2. She is currently on 2 L. She initially was placed on BiPAP. I placed her on Symbicort 160/4.5, 2 puffs twice a day, DuoNeb updrafts, 4 times daily and as needed, prednisone 40 mg a day. Additional recommendations and suggestions are forthcoming. We will continue to follow. Time with Patient: Greater than 30
[2024-01-21 12:21] VITALS: PULSE 78; RESP 18
[2024-01-21] MEDS ORDERED: SYMBICORT 160-4.5 MCG INHALER INHALATION SCH (20:00)
--- NOTE | 2024-01-21 23:03 | HP ---
HISTORY AND PHYSICAL CHIEF COMPLAINT: Shortness of breath. HISTORY OF PRESENT ILLNESS: This 53-year-old woman with a past medical history of multiple medical problems, including HIV, was recently admitted with COPD exacerbation, acute respiratory failure. The patient was intubated, extubated. The patient went home. Apparently, the patient was not able to get all the other medications. The patient with increased shortness of breath. The patient came to [facility]. After treatment and steroids, the patient is feeling much better. There is no history of any fever or rigors. The patient is extremely anxious to go home and the patient has left hospital against medical advice in multiple locations; so for that reason, I am going to discharge the patient with further plans to follow up with Primary Physician and Pulmonary. The patient is not willing to stay at this time. PAST MEDICAL HISTORY: Reviewed, includes HIV, COPD. HOME MEDICATIONS: Reviewed, include DuoNeb. ALLERGIES: Penicillin. FAMILY HISTORY: No history of heart disease or strokes. SOCIAL HISTORY: Previous smoker. REVIEW OF SYSTEMS: Fourteen-point review of systems negative, except as mentioned earlier. PHYSICAL EXAMINATION: VITAL SIGNS: Pulse 78, blood pressure 135/81, respirations 18, pulse ox 96% on 2 L. HEENT: Conjunctivae normal. CARDIOVASCULAR: S1, S2. RESPIRATIONS: Breathing efforts are markedly increased. Bilateral scattered rhonchi and crackles. ABDOMEN: Soft. NERVOUS SYSTEM: Nonfocal. LABORATORY DATA: Sodium 135, other laboratories are noted. Troponin found to be 0.038. ASSESSMENT: 1. Chronic obstructive pulmonary disease acute exacerbation. 2. Acute hypoxic respiratory failure. 3. Troponin elevated up to 0.042. 4. History of recent ventilator-dependent respiratory failure. 5. History of human immunodeficiency virus. 6. Cerebrovascular accident, transient ischemic attack. 7. Multiple complex medical issues. RECOMMENDATIONS AND DISCUSSION: This is a 53-year-old woman with a past medical history of multiple medical problems. At this time, I recommended to continue the bronchodilators, steroids, and continue to monitor in the outpatient setting with primary physician and Pulmonary. As mentioned earlier, the patient is not willing to stay. The patient is about to walk out of the hospital, so prognosis is guarded. Further recommendations to follow. I had multiple discussions with the family and prescription for Symbicort was also given. Continue with steroids and bronchodilators as per above. Please refer to the medication reconciliation sheet for list of medications. MMODL / IJN: [id number] / MTDD
--- NOTE | 2024-02-07 01:13 | DS ---
DISCHARGE SUMMARY This is a 53-year-old woman who was admitted with COPD, who was discharged the same day. Please refer to the history and physical for list of diagnosis and rest of the details. MMODL / IJN: [id number] /
== END 2024-01-21 12:54 | disposition home or self-care (01) ==
LOC: EC 20:19 → 3SCARD 21:30 → INTOOBSV 21:30 → 3SCARD 01-21 00:12 → UNDODISIN 01-21 13:00 → UNDODISOB 01-22 13:00 → UNDODISIN 01-22 13:00
PROVIDERS: ADMIT Hospitalist; ATTEND Hospitalist
DX: J44.1 Chronic obstructive pulmonary disease with (acute) exacerbation (principal); J96.01 Acute respiratory failure with hypoxia; J45.901 Unspecified asthma with (acute) exacerbation; R91.1 Solitary pulmonary nodule; Z21 Asymptomatic human immunodeficiency virus [HIV] infection status; R79.89 Other specified abnormal findings of blood chemistry; F41.9 Anxiety disorder, unspecified; Z79.51 Long term (current) use of inhaled steroids; Z79.899 Other long term (current) drug therapy; Z88.0 Allergy status to penicillin; Z91.011 Allergy to milk products; Z87.891 Personal history of nicotine dependence; Z86.73 Personal history of transient ischemic attack (TIA), and cerebral infarction without residual deficits
CPT/HCPCS: 96376; 96361 ×2; 96374; 99291; 94660; 94640 ×3; 93005; 83880; 80053 ×2; 82803; 83605; 83690; 83735 ×2; 84100; 84484 ×2; 85025 ×2; 85610; 85730; 87636; 71045; G0378 ×2; J7512; J2919 ×2

== ENCOUNTER 2024-01-31 10:30 | Inpatient (IN) | payer MEDICARE, OTHER ==
[2024-01-31 11:10] LABS: Basophils % (A) 0 %; Eosinophils # (A) 0.1 k/uL (0-0.7); Eosinophils % (A) 1 %; HCT 39.2 % (34.0-46.0); HGB 12.1 gm/dL (11.4-16.0); Hypochromasia Marked; Lymphocytes # (A) 1.9 k/uL (1.0-4.8); Lymphocytes % (A) 23 %; MCH 30.8 pg (25.0-35.0); MCHC 30.9 g/dL (31.0-37.0); MCV 99.8 fL (80.0-100.0); Macrocytosis Slight; Mean Platelet Volume 6.6; Monocytes # (A) 0.5 k/uL (0-1.0); Monocytes % (A) 6 %; Neutrophils # (A) 5.5 k/uL (1.3-7.7); Neutrophils % (A) 67 %; Platelet Count 361 k/uL (150-450); RBC 3.93 m/uL (3.80-5.40); RDW 15.1 % (11.5-15.5); WBC 8.2 k/uL (3.8-10.6)
[2024-01-31] MEDS: MAGNESIUM SULFATE-D5W PMX 1 GM in DEXTROSE/WATER 1 100ML.BAG IVPB STA (11:11)
[2024-01-31 11:12] LABS: ABG Base Excess 17.6 mmol/L; ABG Oxygen Saturation 97.9 % (94-97); ABG PH 7.31 (7.35-7.45); ABG PO2 92 mmHg (83-108); ABG TCO2 51 mmol/L (19-24); Allen Test Performed? Yes
[2024-01-31 11:16] LABS: ABG HCO3 48 mmol/L (21-25); ABG PCO2 95 mmHg (35-45)
[2024-01-31] MEDS: IPRATROPIUM-ALBUTEROL 3 ML NEB INHALATION STA (11:22)
[2024-01-31 11:25] LABS: INR 0.9 (<1.2); Partial Thromboplastin Time 22.7 sec (22.0-30.0); Prothrombin Time 9.7 sec (10.0-12.5)
[2024-01-31 11:33] LABS: ALT 39 U/L (4-34); AST 28 U/L (14-36); African American GFR (CKD) >90 (>60 ml/min/1.73 sqM); Albumin 4.2 g/dL (3.5-5.0); Alkaline Phosphatase 119 U/L (38-126); Blood Urea Nitrogen 4 mg/dL (7-17); Calcium 8.9 mg/dL (8.4-10.2); Chloride 89 mmol/L (98-107); Glucose 115 mg/dL (74-99); Magnesium 2.1 mg/dL (1.6-2.3); Non-African American GFR(CKD) >90 (>60 ml/min/1.73 sqM); Potassium 3.6 mmol/L (3.5-5.1); Sodium 135 mmol/L (137-145); Total Bilirubin 0.6 mg/dL (0.2-1.3); Total Protein 6.4 g/dL (6.3-8.2)
[2024-01-31] MEDS: TERBUTALINE 1 MG/ML VIAL SQ STA (11:34)
--- NOTE | 2024-01-31 11:34 | XR ---
EXAMINATION TYPE: XR chest 1V portable DATE OF EXAM: 01/31/2024 HISTORY: Shortness of breath. COMPARISON: 01/20/2024 TECHNIQUE: Single view of the chest is submitted. FINDINGS: Demonstrated are scattered senescent parenchymal change. There is no evidence for focal infiltrate. The heart is stable. Hilar and mediastinal structures are within normal limits. Degenerative changes are seen of the dorsal spine. IMPRESSION: 1. Chronic changes without evidence for acute pulmonary disease. [facility], , 01/31/2024 11:31 AM
[2024-01-31 11:39] LABS: Anion Gap 3 mmol/L; NT-Pro-B-Type Natriuretic Pept 302 pg/mL
--- NOTE | 2024-01-31 11:45 | ED ---
General Adult HPI - General Chief complaint: Shortness of Breath Stated complaint: TK/SOB Time Seen by Provider: 01/31/24 10:30 Source: patient, EMS, RN notes reviewed, old records reviewed Mode of arrival: EMS - History of Present Illness Initial comments: This is a 53-year-old female who was brought in for difficulty breathing. Patient's family called EMS because patient was having a hard time breathing. Patient herself states she does not feel like she has had a tough time breathing. EMS did place her on BiPAP. Patient was given Solu-Medrol and [address] end. Patient's continues to deny that she is any worse than her baseline. Patient denies chest pain or palpitations. Patient [place] any recent fever chills or cough. Patient has any abdominal pain patient has nausea vomiting diarrhea. - Related Data Home Medications Medication Instructions Recorded Confirmed Albuterol Sulfate [Albuterol 2 puff INHALATION RT-Q4H PRN 03/14/22 01/31/24 Sulfate Hfa] Bictegrav/Emtricit/Tenofov Ala 1 tab PO DAILY 08/10/23 01/31/24 [Biktarvy 50-200-25 mg Tablet] Ipratropium-Albuterol Nebulize 3 ml INHALATION RT-Q4H PRN 08/10/23 01/31/24 [Duoneb 0.5 mg-3 mg/3 ml Soln] Famotidine [Pepcid] 20 mg PO BID 09/30/23 01/31/24 Ondansetron [Zofran] 4 mg PO BID PRN 11/05/23 01/31/24 ALPRAZolam [Xanax] 0.5 mg PO BID 11/27/23 01/31/24 Diurex 2 tab PO Q4H PRN MDD 6 tabs 11/27/23 01/31/24 Fluticasone Propionate [Flonase 1 spray EA NOSTRIL DAILY PRN 11/27/23 01/31/24 Allergy Relief] Ibuprofen [Motrin Ib] 200 - 400 mg PO Q6H PRN 11/27/23 01/31/24 Simethicone [Gas-X] 125 - 250 mg PO ACHS PRN 11/27/23 01/31/24 Fluticasone/Umeclidin/Vilanter 1 puff INHALATION RT-DAILY 01/04/24 01/31/24 [Trelegy Ellipta 200-62.5-25] Mirtazapine [Remeron] 15 mg PO HS 01/04/24 01/31/24 Losartan [Cozaar] 50 mg PO DIRECTED 01/21/24 01/31/24 Nicotine 14Mg/24Hr Patch [Habitrol] 1 patch TRANSDERM DIRECTED 01/21/24 01/31/24 amLODIPine [Norvasc] 10 mg PO DIRECTED 01/21/24 01/31/24 Previous Rx's Medication Instructions Recorded Budesonide-Formot 160-4.5 Mcg 2 puff INHALATION RT-BID #1 each 01/21/24 [Symbicort 160-4.5 Mcg Inhaler] Ipratropium-Albuterol Nebulize 3 ml INHALATION RT-QID each 01/21/24 [Duoneb 0.5 mg-3 mg/3 ml Soln] Allergies Allergy/AdvReac Type Severity Reaction Status Date / Time Penicillins Allergy Anaphylaxis Verified 01/31/24 13:53 Milk Containing Products AdvReac Nausea & Verified 01/31/24 13:53 (Dairy) Vomiting & Diarrhea Review of Systems ROS Statement: Those systems with pertinent positive or pertinent negative responses have been documented in the HPI. ROS Other: All systems not noted in ROS Statement are negative. Past Medical History Past Medical History: Asthma, Blood Disorder, COPD, CVA/TIA Additional Past Medical History / Comment(s): HIV History of Any Multi-Drug Resistant Organisms: None Reported Past Surgical History: No Surgical Hx Reported Additional Past Surgical History / Comment(s): peg and tracheostomy reversal 2023 Past Anesthesia/Blood Transfusion Reactions: No Reported Reaction Past Psychological History: Anxiety, Depression, Panic Disorder Smoking Status: Former smoker Past Alcohol Use History: None Reported, Occasional Past Drug Use History: None Reported - Past Family History Mother History Unknown: Yes General Exam - General Exam Comments Initial Comments: GENERAL: Patient is well-developed and well-nourished. Patient is nontoxic and well- hydrated and is in moderate distress. ENT: Neck is soft and supple. No significant lymphadenopathy is noted. Oropharynx is clear. Moist mucous membranes. Neck has full range of motion without eliciting any pain. EYES: The sclera were anicteric and conjunctiva were pink and moist. Extraocular movements were intact and pupils were equal round and reactive to light. Eyelids were unremarkable. PULMONARY: Patient has significantly diminished breath sounds diffusely CARDIOVASCULAR: There is a regular rate and rhythm without any murmurs gallops or rubs. Femoral pulses are equal bilaterally ABDOMEN: Soft and nontender with normal bowel sounds. No palpable organomegaly was noted. There is no palpable pulsatile mass. SKIN: Skin is clear with no lesions or rashes and otherwise unremarkable. NEUROLOGIC: Patient is alert and oriented x3. Cranial nerves II through XII are grossly intact. Motor and sensory are also intact. Normal speech, volume and content. Symmetrical smile. MUSCULOSKELETAL: Normal extremities with adequate strength and full range of motion. 2+ bilateral edema LYMPHATICS: No significant lymphadenopathy is noted PSYCHIATRIC: Normal psychiatric evaluation. Course Vital Signs 01/31/24 01/31/24 01/31/24 10:30 10:37 11:18 Temperature 97.7 F Pulse Rate 115 H Respiratory 28 H 26 H Rate Blood Pressure 149/96 O2 Sat by Pulse 100 Oximetry Fraction of 40 35 Inspired Oxygen (FIO2) 01/31/24 01/31/24 01/31/24 11:23 11:34 12:37 Temperature Pulse Rate 118 H 119 H 106 H Respiratory 28 H Rate Blood Pressure 115/68 O2 Sat by Pulse 95 Oximetry Fraction of Inspired Oxygen (FIO2) 01/31/24 13:35 Temperature Pulse Rate 112 H Respiratory 30 H Rate Blood Pressure 125/72 O2 Sat by Pulse 96 Oximetry Fraction of Inspired Oxygen (FIO2) Medical Decision Making - Medical Decision Making EKG is interpreted by myself but EKG shows sinus tachycardia 117 bpm HI interval 228 QRS of 74 QT interval is 294 QTc is 364. Patient's EKG shows no ST segment elevation or depression. Was pt. sent in by a medical professional or institution (, PA, PREFORMING MACHINE OPERATOR, urgent care, hospital, or halfway...) When possible be specific @ -No Did you speak to anyone other than the patient for history (EMS, parent, family, police, friend...)? What history was obtained from this source @ -No Did you review nursing and triage notes (agree or disagree)? Why? @ -I reviewed and agree with nursing and triage notes Were old charts reviewed (outside hosp., previous admission, EMS record, old EKG, old radiological studies, urgent care reports/EKG's, halfway records)? Report findings @ -No old charts were reviewed Differential Diagnosis? @ -Differential Dyspnea: Coronary syndrome, arrhythmia, tamponade, asthma, COPD, pulmonary embolism, pneumonia, pneumothorax, pulmonary effusion, anaphylaxis, diabetic ketoacidosis, flailed chest, pulmonary contusion, diaphragmatic rupture, anemia, n euromuscular, this is not meant to be an all-inclusive list. EKG interpreted by me (3pts min.). @ -As above X-rays interpreted by me (1pt min.). @ -Chest x-ray shows no acute abnormality CT interpreted by me (1pt min.). @ -None done U/S interpreted by me (1pt. min.). @ -None done What testing was considered but not performed or refused? (CT, X-rays, U/S, labs)? Why? @ -None What meds were considered but not given or refused? Why? @ -None Did you discuss the management of the patient with other professionals (professionals i.e. , PA, PREFORMING MACHINE OPERATOR, lab, RT, psych nurse, social welfare research worker, bread wrapper operator, teacher, telecommunications officer, case management specialist)? Give summary @ -I spoke with [facility] hospitalist and they agreed to admit the patient Was smoking cessation discussed for >3mins.? @ -No Was critical care preformed (if so, how long)? @ -No Were there social determinants of health that impacted care today? How? (Homelessness, low income, unemployed, alcoholism, drug addiction, transportation, low edu. Level, literacy, decrease access to med. care, prison, rehab)? @ -No Was there de-escalation of care discussed even if they declined (Discuss DNR or withdrawal of care, Hospice)? DNR status @ -No What co-morbidities impacted this encounter? (DM, HTN, Smoking, COPD, CAD, Cancer, CVA, ARF, Chemo, Hep., AIDS, mental health diagnosis, sleep apnea, morbid obesity)? @ -None Was patient admitted / discharged? Hospital course, mention meds given and route, prescriptions, significant lab abnormalities, going to OR and other pertinent info. @ -Patient was on BiPAP throughout the patient's ED stay. Patient initially had an elevated pCO2 of 95 with a pH of 7.3 I increased the pressure on the BiPAP machine and the patient's repeat ABG showed a pH of 7.38 with a pCO2 of 80. Patient was easily arousable and conversive and she still did not complain of being any worse than her baseline Undiagnosed new problem with uncertain prognosis? @ -No Drug Therapy requiring intensive monitoring for toxicity (Heparin, Nitro, Insulin, Cardizem)? @ -No Were any procedures done? @ -No Diagnosis/symptom? @ -COPD Acute, or Chronic, or Acute on Chronic? @ -Acute Uncomplicated (without systemic symptoms) or Complicated (systemic symptoms)? @ -Complicated Side effects of treatment? @ -No Exacerbation, Progression, or Severe Exacerbation? @ -No Poses a threat to life or bodily function? How? (Chest pain, [place], [place], pneumonia, PE, COPD, DKA, ARF, appy, cholecystitis, CVA, Diverticulitis, Homicidal, Suicidal, threat to staff... and all critical care pts) @ -Yes this can lead to hypoxia and endorgan dysfunction - Lab Data Result diagrams: 01/31/24 10:48 01/31/24 10:48 Lab Results 01/31/24 01/31/24 01/31/24 Range/Units 10:48 10:48 10:48 WBC 8.2 (3.8-10.6) k/uL RBC 3.93 (3.80-5.40) m/uL Hgb 12.1 (11.4-16.0) gm/dL Hct 39.2 (34.0-46.0) % MCV 99.8 (80.0-100.0) fL MCH 30.8 (25.0-35.0) pg MCHC 30.9 L (31.0-37.0) g/dL RDW 15.1 (11.5-15.5) % Plt Count 361 (150-450) k/uL MPV 6.6 Neutrophils % 67 % Lymphocytes % 23 % Monocytes % 6 % Eosinophils % 1 % Basophils % 0 % Neutrophils # 5.5 (1.3-7.7) k/uL Lymphocytes # 1.9 (1.0-4.8) k/uL Monocytes # 0.5 (0-1.0) k/uL Eosinophils # 0.1 (0-0.7) k/uL Basophils # 0.0 (0-0.2) k/uL Hypochromasia Marked Macrocytosis Slight PT 9.7 L (10.0-12.5) sec INR 0.9 (<1.2) APTT 22.7 (22.0-30.0) sec Sample Site ABG pH (7.35-7.45) ABG pCO2 (35-45) mmHg ABG pO2 (83-108) mmHg ABG HCO3 (21-25) mmol/L ABG Total CO2 (19-24) mmol/L ABG O2 Saturation (94-97) % ABG Base Excess mmol/L Milton Test FiO2 % Sodium 135 L (137-145) mmol/L Potassium 3.6 (3.5-5.1) mmol/L Chloride 89 L (98-107) mmol/L Carbon Dioxide 43 H* (22-30) mmol/L Anion Gap 3 mmol/L BUN 4 L (7-17) mg/dL Creatinine 0.31 L (0.52-1.04) mg/dL Est GFR (CKD-EPI)AfAm >90 (>60 ml/min/1.73 sqM) Est GFR (CKD-EPI)NonAf >90 (>60 ml/min/1.73 sqM) Glucose 115 H (74-99) mg/dL Plasma Lactic Acid Jarad (0.7-2.0) mmol/L Calcium 8.9 (8.4-10.2) mg/dL Magnesium 2.1 (1.6-2.3) mg/dL Total Bilirubin 0.6 (0.2-1.3) mg/dL AST 28 (14-36) U/L ALT 39 H (4-34) U/L Alkaline Phosphatase 119 (38-126) U/L Troponin I (0.000-0.034) ng/mL NT-Pro-B Natriuret Pep 302 pg/mL Total Protein 6.4 (6.3-8.2) g/dL Albumin 4.2 (3.5-5.0) g/dL 01/31/24 01/31/24 01/31/24 Range/Units 10:48 10:48 11:03 WBC (3.8-10.6) k/uL RBC (3.80-5.40) m/uL Hgb (11.4-16.0) gm/dL Hct (34.0-46.0) % MCV (80.0-100.0) fL MCH (25.0-35.0) pg MCHC (31.0-37.0) g/dL RDW (11.5-15.5) % Plt Count (150-450) k/uL MPV Neutrophils % % Lymphocytes % % Monocytes % % Eosinophils % % Basophils % % Neutrophils # (1.3-7.7) k/uL Lymphocytes # (1.0-4.8) k/uL Monocytes # (0-1.0) k/uL Eosinophils # (0-0.7) k/uL Basophils # (0-0.2) k/uL Hypochromasia Macrocytosis PT (10.0-12.5) sec INR (<1.2) APTT (22.0-30.0) sec Sample Site lrad ABG pH 7.31 L (7.35-7.45) ABG pCO2 95 H* (35-45) mmHg ABG pO2 92 (83-108) mmHg ABG HCO3 48 H* (21-25) mmol/L ABG Total CO2 51 H (19-24) mmol/L ABG O2 Saturation 97.9 H (94-97) % ABG Base Excess 17.6 mmol/L Milton Test Yes FiO2 40 % Sodium (137-145) mmol/L Potassium (3.5-5.1) mmol/L Chloride (98-107) mmol/L Carbon Dioxide (22-30) mmol/L Anion Gap mmol/L BUN (7-17) mg/dL Creatinine (0.52-1.04) mg/dL Est GFR (CKD-EPI)AfAm (>60 ml/min/1.73 sqM) Est GFR (CKD-EPI)NonAf (>60 ml/min/1.73 sqM) Glucose (74-99) mg/dL Plasma Lactic Acid Jarad 1.1 (0.7-2.0) mmol/L Calcium (8.4-10.2) mg/dL Magnesium (1.6-2.3) mg/dL Total Bilirubin (0.2-1.3) mg/dL AST (14-36) U/L ALT (4-34) U/L Alkaline Phosphatase (38-126) U/L Troponin I 0.017 (0.000-0.034) ng/mL NT-Pro-B Natriuret Pep pg/mL Total Protein (6.3-8.2) g/dL Albumin (3.5-5.0) g/dL 01/31/24 Range/Units 12:43 WBC (3.8-10.6) k/uL RBC (3.80-5.40) m/uL Hgb (11.4-16.0) gm/dL Hct (34.0-46.0) % MCV (80.0-100.0) fL MCH (25.0-35.0) pg MCHC (31.0-37.0) g/dL RDW (11.5-15.5) % Plt Count (150-450) k/uL MPV Neutrophils % % Lymphocytes % % Monocytes % % Eosinophils % % Basophils % % Neutrophils # (1.3-7.7) k/uL Lymphocytes # (1.0-4.8) k/uL Monocytes # (0-1.0) k/uL Eosinophils # (0-0.7) k/uL Basophils # (0-0.2) k/uL Hypochromasia Macrocytosis PT (10.0-12.5) sec INR (<1.2) APTT (22.0-30.0) sec Sample Site lrad ABG pH 7.38 (7.35-7.45) ABG pCO2 80 H* (35-45) mmHg ABG pO2 88 (83-108) mmHg ABG HCO3 47 H* (21-25) mmol/L ABG Total CO2 50 H (19-24) mmol/L ABG O2 Saturation 98.0 H (94-97) % ABG Base Excess 18.6 mmol/L Milton Test Yes FiO2 35 % Sodium (137-145) mmol/L Potassium (3.5-5.1) mmol/L Chloride (98-107) mmol/L Carbon Dioxide (22-30) mmol/L Anion Gap mmol/L BUN (7-17) mg/dL Creatinine (0.52-1.04) mg/dL Est GFR (CKD-EPI)AfAm (>60 ml/min/1.73 sqM) Est GFR (CKD-EPI)NonAf (>60 ml/min/1.73 sqM) Glucose (74-99) mg/dL Plasma Lactic Acid Jarad (0.7-2.0) mmol/L Calcium (8.4-10.2) mg/dL Magnesium (1.6-2.3) mg/dL Total Bilirubin (0.2-1.3) mg/dL AST (14-36) U/L ALT (4-34) U/L Alkaline Phosphatase (38-126) U/L Troponin I (0.000-0.034) ng/mL NT-Pro-B Natriuret Pep pg/mL Total Protein (6.3-8.2) g/dL Albumin (3.5-5.0) g/dL Disposition Clinical Impression: Acute exacerbation of chronic obstructive pulmonary disease Disposition: ADMITTED IP TO THIS HOSP Referrals: Francisco Harvey [Primary Care Provider] - 1-2 days Time of Disposition: 14:10
[2024-01-31 11:52] LABS: Carbon Dioxide 43 mmol/L (22-30)
[2024-01-31 12:49] LABS: ABG Base Excess 18.6 mmol/L; ABG PH 7.38 (7.35-7.45); ABG PO2 88 mmHg (83-108); ABG TCO2 50 mmol/L (19-24); Allen Test Performed? Yes
[2024-01-31 12:56] LABS: ABG HCO3 47 mmol/L (21-25); ABG PCO2 80 mmHg (35-45)
[2024-01-31] MEDS ORDERED: IPRATROPIUM-ALBUTEROL 3 ML NEB INHALATION PRN (14:10)
[2024-01-31] MEDS ORDERED: NALOXONE 0.4 MG/ML 1 ML VIAL IVP PRN (14:10)
[2024-01-31] MEDS: IPRATROPIUM-ALBUTEROL 3 ML NEB INHALATION SCH (15:16)
[2024-01-31] MEDS: methylPREDNISolone SOD SUCCI 125 MG/2 ML VIAL IV SCH (18:10)
[2024-01-31] MEDS ORDERED: ONDANSETRON 4 MG TAB PO PRN (21:21)
[2024-01-31] MEDS ORDERED: IBUPROFEN 400 MG TAB PO PRN (21:23)
[2024-01-31] MEDS: MIRTAZAPINE 15 MG TAB PO SCH (22:03)
[2024-01-31] MEDS: LOSARTAN 50 MG TAB PO SCH (22:04)
[2024-01-31] MEDS: FAMOTIDINE 20 MG TAB PO SCH (22:04)
--- NOTE | 2024-01-31 23:18 | P.HPIM ---
History of Present Illness H&P Date: 01/31/24 Chief Complaint: Difficulty in breathing Patient is a 53-year-old female with known history of asthma/COPD, history of CVA/TIA and HIV, anxiety/depression/panic disorder and prior history of smoking as well as hypertension presents to ER with complaints of worsening shortness of breath. EMS was called as the patient has been having hard time breathing. Patient was placed on BiPAP by EMS.. Also given a dose of Solu-Medrol and [address] to the ER. Otherwise patient is unable to provide much history. Patient has been afebrile. Denied any fever or chills. Cough without any sputum production. Denied any nausea vomiting abdominal pain or diarrhea. Chest x-ray on admission showed chronic changes without evidence for acute pulmonary disease. EKG showed sinus tachycardia with a heart rate 117 Patient was tachycardic with heart rate 115 and respiration 28 on admission. Laboratory data showed WBC 8.2 hemoglobin 12.1 and platelets 361 Sodium 133 potassium 3.6 chloride 89 bicarb is 43 BUN 14 creatinine 0.31 and blood sugar 115 and ALT 39 AST 28 alk phos 119 and troponin 0.017 and proBNP 302. Review of Systems Complete review of systems could not be obtained from the patient except as per HPI Past Medical History Past Medical History: Asthma, Blood Disorder, COPD, CVA/TIA Additional Past Medical History / Comment(s): HIV History of Any Multi-Drug Resistant Organisms: None Reported Past Surgical History: No Surgical Hx Reported Additional Past Surgical History / Comment(s): peg and tracheostomy reversal 2023 Past Anesthesia/Blood Transfusion Reactions: No Reported Reaction Past Psychological History: Anxiety, Depression, Panic Disorder Smoking Status: Former smoker Past Alcohol Use History: None Reported, Occasional Past Drug Use History: None Reported - Past Family History Mother History Unknown: Yes Medications and Allergies Home Medications Medication Instructions Recorded Confirmed Type Albuterol Sulfate [Albuterol 2 puff INHALATION RT-Q4H PRN 03/14/22 01/31/24 History Sulfate Hfa] Bictegrav/Emtricit/Tenofov Ala 1 tab PO DAILY 08/10/23 01/31/24 History [Biktarvy 50-200-25 mg Tablet] Ipratropium-Albuterol Nebulize 3 ml INHALATION RT-Q4H PRN 08/10/23 01/31/24 History [Duoneb 0.5 mg-3 mg/3 ml Soln] Famotidine [Pepcid] 20 mg PO BID 09/30/23 01/31/24 History Ondansetron [Zofran] 4 mg PO BID PRN 11/05/23 01/31/24 History ALPRAZolam [Xanax] 0.5 mg PO BID 11/27/23 01/31/24 History Diurex 2 tab PO Q4H PRN MDD 6 tabs 11/27/23 01/31/24 History Fluticasone Propionate [Flonase 1 spray EA NOSTRIL DAILY PRN 11/27/23 01/31/24 History Allergy Relief] Ibuprofen [Motrin Ib] 200 - 400 mg PO Q6H PRN 11/27/23 01/31/24 History Simethicone [Gas-X] 125 - 250 mg PO ACHS PRN 11/27/23 01/31/24 History Fluticasone/Umeclidin/Vilanter 1 puff INHALATION RT-DAILY 01/04/24 01/31/24 History [Trelegy Ellipta 200-62.5-25] Mirtazapine [Remeron] 15 mg PO HS 01/04/24 01/31/24 History Budesonide-Formot 160-4.5 Mcg 2 puff INHALATION RT-BID #1 each 01/21/24 01/31/24 Rx [Symbicort 160-4.5 Mcg Inhaler] Ipratropium-Albuterol Nebulize 3 ml INHALATION RT-QID each 01/21/24 01/31/24 Rx [Duoneb 0.5 mg-3 mg/3 ml Soln] Losartan [Cozaar] 50 mg PO DIRECTED 01/21/24 01/31/24 History Nicotine 14Mg/24Hr Patch [Habitrol] 1 patch TRANSDERM DIRECTED 01/21/24 01/31/24 History amLODIPine [Norvasc] 10 mg PO DIRECTED 01/21/24 01/31/24 History Allergies Allergy/AdvReac Type Severity Reaction Status Date / Time Penicillins Allergy Anaphylaxis Verified 01/31/24 13:53 Milk Containing Products AdvReac Nausea & Verified 01/31/24 13:53 (Dairy) Vomiting & Diarrhea Physical Exam Vitals: Vital Signs Temp Pulse Pulse Resp BP BP Pulse Ox 01/31/24 20:10 108 H 01/31/24 20:00 98.5 F 110 H 22 132/79 94 L 01/31/24 19:56 104 H 01/31/24 18:35 98.7 F 112 H 26 H 121/80 95 01/31/24 18:12 114 H 25 H 127/86 99 01/31/24 17:25 97.9 F 109 H 24 119/87 96 01/31/24 15:26 108 H 01/31/24 15:20 109 H 16 116/77 95 01/31/24 15:16 109 H 01/31/24 14:08 97.9 F 106 H 24 130/78 96 01/31/24 13:35 112 H 30 H 125/72 96 01/31/24 12:37 106 H 28 H 115/68 95 01/31/24 11:34 119 H 01/31/24 11:23 118 H 01/31/24 11:18 01/31/24 10:37 26 H 01/31/24 10:30 97.7 F 115 H 28 H 149/96 100 FiO2 01/31/24 20:10 01/31/24 20:00 01/31/24 19:56 01/31/24 18:35 01/31/24 18:12 01/31/24 17:25 01/31/24 15:26 01/31/24 15:20 01/31/24 15:16 35 01/31/24 14:08 01/31/24 13:35 01/31/24 12:37 01/31/24 11:34 01/31/24 11:23 01/31/24 11:18 35 01/31/24 10:37 01/31/24 10:30 40 Intake and Output 01/31/24 01/31/24 01/31/24 06:59 14:59 22:59 Intake Total 540 Balance 540 Intake: Oral 540 Other: # Voids 2 Weight 54.885 kg PHYSICAL EXAMINATION: Patient is lying in the bed comfortably, no acute distress, awake alert and oriented x 2-3 HEENT: Normocephalic. Neck is supple. Pupils reactive. Nostrils clear. Oral cavity is moist. Neck reveals no JVD, carotid bruits, or thyromegaly. CHEST EXAMINATION: Trachea is central. Symmetrical expansion. Bilateral diminished air entry. Expiratory wheezing. Nonlabored breathing. CARDIAC: Normal S1, S2 with no gallops. No murmurs ABDOMEN: Soft. Bowel sounds normal. No organomegaly. No abdominal bruits. Extremities: reveal no edema. No clubbing or cyanosis Neurologically awake, alert, oriented x 2-3. With well-coordinated movements. No focal deficits noted Skin: No rash or skin lesions. Psychiatric: Coperative. Could not be assessed completely Musculoskeletal: No joint swelling or deformity. Results CBC & Chem 7: 01/31/24 10:48 01/31/24 10:48 Labs: Abnormal Lab Results - Last 24 Hours (Table) 01/31/24 01/31/24 01/31/24 Range/Units 10:48 10:48 10:48 MCHC 30.9 L (31.0-37.0) g/dL PT 9.7 L (10.0-12.5) sec ABG pH (7.35-7.45) ABG pCO2 (35-45) mmHg ABG HCO3 (21-25) mmol/L ABG Total CO2 (19-24) mmol/L ABG O2 Saturation (94-97) % Sodium 135 L (137-145) mmol/L Chloride 89 L (98-107) mmol/L Carbon Dioxide 43 H* (22-30) mmol/L BUN 4 L (7-17) mg/dL Creatinine 0.31 L (0.52-1.04) mg/dL Glucose 115 H (74-99) mg/dL ALT 39 H (4-34) U/L 01/31/24 01/31/24 Range/Units 11:03 12:43 MCHC (31.0-37.0) g/dL PT (10.0-12.5) sec ABG pH 7.31 L (7.35-7.45) ABG pCO2 95 H* 80 H* (35-45) mmHg ABG HCO3 48 H* 47 H* (21-25) mmol/L ABG Total CO2 51 H 50 H (19-24) mmol/L ABG O2 Saturation 97.9 H 98.0 H (94-97) % Sodium (137-145) mmol/L Chloride (98-107) mmol/L Carbon Dioxide (22-30) mmol/L BUN (7-17) mg/dL Creatinine (0.52-1.04) mg/dL Glucose (74-99) mg/dL ALT (4-34) U/L Thrombosis Risk Factor Assmnt - DVT/VTE Prophylaxis DVT/VTE Prophylaxis: Pharmacologic Prophylaxis ordered Assessment and Plan Assessment: Acute hypoxic and hypercapnic respiratory failure requiring BiPAP Acute COPD exacerbation Hypovolemic hyponatremia Hypertension History of CVA/TIA HIV on antiretroviral therapy. Anxiety/depression/panic disorder Prior history of smoking DVT prophylaxis with heparin subcu Plan: Patient will be continued on BiPAP and titrate down to nasal cannula oxygen. Continue with IV Solu-Medrol 60 mg every 6 hourly and DuoNebs and Symbicort. Patient will be continued on empiric antibiotics azithromycin. Continue her home medications and follow-up closely. Pulmonary was consulted. Time with Patient: Greater than 30
--- NOTE | 2024-02-01 07:51 | P.CNPUL ---
History of Present Illness Consult date: 02/01/24 Requesting physician: Kyle Tavares Reason for consult: COPD Chief complaint: Shortness of breath History of present illness: Patient is a 53-year-old female with past medical history significant for COPD, ventilator dependent respiratory failure with previous tracheostomy and PEG tube, HIV on Biktarvy. In July, she had a prolonged stay in the intensive care unit, she was intubated and placed on the mechanical ventilator. Eventually required tracheostomy and PEG tube. Subsequently, the patient was decannulated. Has had frequent hospitalizations since then, for acute COPD exacerbation; in fact, she just was discharged 01/21/2024 for the same. Patient was brought in by EMS yesterday morning, she was in acute respiratory distress, initially placed on BiPAP by EMS. Chest x-ray showing chronic changes and COPD, no acute cardiopulmonary process. Initial ABG done in the emergency department showing a PaO2 of 92, pCO2 of 95, pH of 7.31. This is likely near her baseline. A repeat follow-up ABG was done showing an PaO2 of 88, pCO2 of 80, pH of 7.38. Patient remains on the BiPAP. CBC: WBC count 8.2, hemoglobin 12.1, hematocrit 39.2, platelets 361. CMP: Sodium 135, potassium 3.6, chloride 89, serum bicarb 43, BUN 4, creatinine 0.31, glucose 115. Lactic nonelevated. LFTs unremarkable. Troponin 0.017. NT proBNP 302. She has already been started on combination of bronchodilators, Symbicort inhaler, and IV Solu-Medrol. She is admitted to the cardiac stepdown unit. Remains on BiPAP with current settings 12/5 and FiO2 35%. SpO2 98%. Respiratory rate is in the mid teens. Tidal volumes averaging 300 mL. She states that the reason she was brought into the emergency department is that she dropped some laundry detergent, became severely short of breath when trying to clean it up. Her family found her on the floor. She denies hitting her head or any traumatic fall. Unfortunately, she has started smoking cigarettes again. Smoking approximately 1/2 pack/day. She denies any infectious-like symptoms such as URI-like symptoms, change in her chronic cough, sputum production, fever or chills. She appears very comfortable. No signs of CO2 narcosis. We are going to transition her to 4 L nasal cannula. Review of Systems Constitutional: Denies chills, Denies fever, Denies poor appetite, Denies weight gain, Denies weight loss Ears, nose, mouth and throat: Denies headache, Denies nasal congestion, Denies nasal discharge, Denies post-nasal drip, Denies sinus pain, Denies sinus pressure, Denies sore throat Cardiovascular: Reports leg edema, Denies chest pain, Denies orthopnea, Denies palpitations, Denies paroxysmal nocturnal dyspnea Respiratory: Reports cough, Reports dyspnea, Reports home oxygen, Denies congestion, Denies cough with sputum, Denies excessive sputum, Denies hemoptysis, Denies respiratory infections, Denies wheezing Gastrointestinal: Denies abdominal pain, Denies constipation, Denies diarrhea, Denies loss of appetite, Denies nausea, Denies vomiting Genitourinary: Denies dysuria Musculoskeletal: Denies limitation of motion Integumentary: Denies rash Neurological: Denies balance difficulties, Denies confusion, Denies head injury, Denies headaches, Denies seizures, Denies syncope, Denies visual changes Psychiatric: Denies anxiety, Denies depression Past Medical History Past Medical History: Asthma, Blood Disorder, COPD, CVA/TIA Additional Past Medical History / Comment(s): HIV History of Any Multi-Drug Resistant Organisms: None Reported Past Surgical History: No Surgical Hx Reported Additional Past Surgical History / Comment(s): peg and tracheostomy reversal 2023 Past Anesthesia/Blood Transfusion Reactions: No Reported Reaction Past Psychological History: Anxiety, Depression, Panic Disorder Smoking Status: Former smoker Past Alcohol Use History: None Reported, Occasional Past Drug Use History: None Reported - Past Family History Mother History Unknown: Yes Medications and Allergies Home Medications Medication Instructions Recorded Confirmed Type Albuterol Sulfate [Albuterol 2 puff INHALATION RT-Q4H PRN 03/14/22 01/31/24 History Sulfate Hfa] Bictegrav/Emtricit/Tenofov Ala 1 tab PO DAILY 08/10/23 01/31/24 History [Biktarvy 50-200-25 mg Tablet] Ipratropium-Albuterol Nebulize 3 ml INHALATION RT-Q4H PRN 08/10/23 01/31/24 History [Duoneb 0.5 mg-3 mg/3 ml Soln] Famotidine [Pepcid] 20 mg PO BID 09/30/23 01/31/24 History Ondansetron [Zofran] 4 mg PO BID PRN 11/05/23 01/31/24 History ALPRAZolam [Xanax] 0.5 mg PO BID 11/27/23 01/31/24 History Diurex 2 tab PO Q4H PRN MDD 6 tabs 11/27/23 01/31/24 History Fluticasone Propionate [Flonase 1 spray EA NOSTRIL DAILY PRN 11/27/23 01/31/24 History Allergy Relief] Ibuprofen [Motrin Ib] 200 - 400 mg PO Q6H PRN 11/27/23 01/31/24 History Simethicone [Gas-X] 125 - 250 mg PO ACHS PRN 11/27/23 01/31/24 History Fluticasone/Umeclidin/Vilanter 1 puff INHALATION RT-DAILY 01/04/24 01/31/24 History [Trelegy Ellipta 200-62.5-25] Mirtazapine [Remeron] 15 mg PO HS 01/04/24 01/31/24 History Budesonide-Formot 160-4.5 Mcg 2 puff INHALATION RT-BID #1 each 01/21/24 01/31/24 Rx [Symbicort 160-4.5 Mcg Inhaler] Ipratropium-Albuterol Nebulize 3 ml INHALATION RT-QID each 01/21/24 01/31/24 Rx [Duoneb 0.5 mg-3 mg/3 ml Soln] Losartan [Cozaar] 50 mg PO DIRECTED 01/21/24 01/31/24 History Nicotine 14Mg/24Hr Patch [Habitrol] 1 patch TRANSDERM DIRECTED 01/21/24 01/31/24 History amLODIPine [Norvasc] 10 mg PO DIRECTED 01/21/24 01/31/24 History Allergies Allergy/AdvReac Type Severity Reaction Status Date / Time Penicillins Allergy Anaphylaxis Verified 01/31/24 13:53 Milk Containing Products AdvReac Nausea & Verified 01/31/24 13:53 (Dairy) Vomiting & Diarrhea Physical Exam Vitals: Vital Signs Temp Pulse Pulse Resp BP BP Pulse Ox 02/01/24 00:02 02/01/24 00:00 98.3 F 99 22 115/72 97 01/31/24 20:10 108 H 01/31/24 20:00 98.5 F 110 H 22 132/79 94 L 01/31/24 19:56 104 H 01/31/24 18:35 98.7 F 112 H 26 H 121/80 95 01/31/24 18:12 114 H 25 H 127/86 99 01/31/24 17:25 97.9 F 109 H 24 119/87 96 01/31/24 15:26 108 H 01/31/24 15:20 109 H 16 116/77 95 01/31/24 15:16 109 H 01/31/24 14:08 97.9 F 106 H 24 130/78 96 01/31/24 13:35 112 H 30 H 125/72 96 01/31/24 12:37 106 H 28 H 115/68 95 01/31/24 11:34 119 H 01/31/24 11:23 118 H 01/31/24 11:18 01/31/24 10:37 26 H 01/31/24 10:30 97.7 F 115 H 28 H 149/96 100 FiO2 02/01/24 00:02 35 02/01/24 00:00 35 01/31/24 20:10 01/31/24 20:00 01/31/24 19:56 01/31/24 18:35 01/31/24 18:12 01/31/24 17:25 01/31/24 15:26 01/31/24 15:20 01/31/24 15:16 35 01/31/24 14:08 01/31/24 13:35 01/31/24 12:37 01/31/24 11:34 01/31/24 11:23 01/31/24 11:18 35 01/31/24 10:37 01/31/24 10:30 40 Intake and Output 01/31/24 01/31/24 02/01/24 14:59 22:59 06:59 Intake Total 540 Balance 540 Intake: Oral 540 Other: Voiding Method Bedside Commode Bedside Commode # Voids 2 Weight 54.885 kg 54.885 kg GENERAL EXAM: Alert, 53-year-old white female, on BiPAP, comfortable in no apparent distress. HEAD: Normocephalic and atraumatic EYES: Normal reaction of pupils, equal size. NOSE: Clear with pink turbinates. THROAT: No erythema or exudates. NECK: No masses, no JVD. CHEST: No chest wall deformity. LUNGS: Equal air entry with faint expiratory wheezing bilaterally throughout. On BiPAP with settings 12/5 and FiO2 of 35%. Generating tidal volumes around 300, rate is controlled in the mid teens. No conversational dyspnea or accessory muscle use.. CVS: S1 and S2 normal with no audible murmur, regular rhythm. No extra heart sounds ABDOMEN: No hepatosplenomegaly, active bowel sounds, no guarding or rigidity. SPINE: No scoliosis or deformity SKIN: No rashes CENTRAL NERVOUS SYSTEM: No focal deficits, tone is normal in all 4 extremities. EXTREMITIES: There is 1+ pitting bilateral lower extremity edema. Digital club jelly noted. Peripheral pulses are intact. Results - Laboratory Findings CBC and BMP: 01/31/24 10:48 01/31/24 10:48 ABG ABG pH 7.38 (7.35-7.45) 01/31/24 12:43 ABG pCO2 80 mmHg (35-45) H* 01/31/24 12:43 ABG pO2 88 mmHg (83-108) 01/31/24 12:43 ABG O2 Saturation 98.0 % (94-97) H 01/31/24 12:43 PT/INR, D-dimer PT 9.7 sec (10.0-12.5) L 01/31/24 10:48 INR 0.9 (<1.2) 01/31/24 10:48 Abnormal lab findings: Abnormal Labs 01/31/24 01/31/24 01/31/24 10:48 10:48 10:48 MCHC 30.9 L PT 9.7 L ABG pH ABG pCO2 ABG HCO3 ABG Total CO2 ABG O2 Saturation Sodium 135 L Chloride 89 L Carbon Dioxide 43 H* BUN 4 L Creatinine 0.31 L Glucose 115 H ALT 39 H 01/31/24 01/31/24 11:03 12:43 MCHC PT ABG pH 7.31 L ABG pCO2 95 H* 80 H* ABG HCO3 48 H* 47 H* ABG Total CO2 51 H 50 H ABG O2 Saturation 97.9 H 98.0 H Sodium Chloride Carbon Dioxide BUN Creatinine Glucose ALT - Diagnostic Findings Chest x-ray: image reviewed Assessment and Plan Assessment: Acute exacerbation of severe end-stage COPD, chest x-ray does not show any focal infiltrates or acute cardiopulmonary process. Hyperinflation consistent with COPD. Acute on chronic hypoxemic and hypercapnic respiratory failure, secondary to above, currently on BiPAP History of ventilator dependent respiratory failure with previous tracheostomy and PEG tube insertion status post decannulation Very severe underlying COPD with an FEV1 22% of predicted Chronic hypoxemic respiratory failure, normally maintained on 2 L/min nasal c annula 21/11 Chronic ongoing tobacco dependence, currently smoking 1/2 pack/day Acquired immunodeficiency syndrome, maintained on Biktarvy, most recent CD4 count 83 History of left upper lobe lung nodule, previously measuring 9 mm in size, being monitored on outpatient basis Plan: Patient's medications, labs, imaging reviewed On my evaluation, patient is on BiPAP, and will be transitioned to nasal cannula No evidence of CO2 narcosis Continue combination of bronchodilators [id number], Symbicort inhaler, and IV Solu-Medrol Check Cepheid 4 Plex Smoking cessation counseling performed greater than 10 minutes Also, educated on the dangers of smoking while wearing supplemental oxygen. Nicotine patch offered We will continue to follow, additional recommendations forthcoming. I have personally seen and examined the patient, performed the documentation and the assessment and plan as written. Number of minutes spent on the visit:20 Time with Patient: Greater than 30
[2024-02-01 08:09] LABS: Basophils % (A) 0 %; Eosinophils % (A) 0 %; HCT 39.4 % (34.0-46.0); HGB 12.1 gm/dL (11.4-16.0); Hypochromasia Marked; Lymphocytes # (A) 0.6 k/uL (1.0-4.8); Lymphocytes % (A) 10 %; MCH 30.6 pg (25.0-35.0); MCHC 30.7 g/dL (31.0-37.0); MCV 99.5 fL (80.0-100.0); Monocytes # (A) 0.3 k/uL (0-1.0); Monocytes % (A) 5 %; Neutrophils # (A) 5.2 k/uL (1.3-7.7); Neutrophils % (A) 85 %; Platelet Count 355 k/uL (150-450); RBC 3.96 m/uL (3.80-5.40); RDW 14.9 % (11.5-15.5); WBC 6.2 k/uL (3.8-10.6)
[2024-02-01 08:36] LABS: African American GFR (CKD) >90 (>60 ml/min/1.73 sqM); Blood Urea Nitrogen 10 mg/dL (7-17); Calcium 9.2 mg/dL (8.4-10.2); Chloride 89 mmol/L (98-107); Glucose 155 mg/dL (74-99); Non-African American GFR(CKD) >90 (>60 ml/min/1.73 sqM); Potassium 3.9 mmol/L (3.5-5.1); Sodium 137 mmol/L (137-145)
[2024-02-01 08:44] LABS: Anion Gap 0 mmol/L
[2024-02-01 08:48] LABS: Carbon Dioxide 48 mmol/L (22-30)
[2024-02-01] MEDS: NON FORMULARY DRUG (Bictegrav/Emtricit/Tenofov Ala [Biktarvy 50-200-25 Mg Tablet] 1 EACH T PO SCH (08:56)
[2024-02-01] MEDS: AZITHROMYCIN 500 MG TAB PO SCH (09:04)
[2024-02-01] MEDS: HEPARIN SODIUM,PORCINE 5,000 UNIT/ML 1 ML VIAL SQ SCH (09:05)
[2024-02-01] MEDS: NICOTINE 21MG/24HR PATCH TRANSDERM SCH (09:05)
[2024-02-01] MEDS: amLODIPine 10 MG TAB PO SCH (09:05)
[2024-02-01] MEDS: SYMBICORT 160-4.5 MCG INHALER INHALATION SCH (09:07)
[2024-02-01] MEDS: ALPRAZolam 0.5 MG TAB PO PRN (09:14)
[2024-02-01 12:17] VITALS: BP 95/52; PULSE 125; RESP 16; TEMP 98.4
== END 2024-02-01 14:30 | disposition left against medical advice (07) | DRG 189 ==
LOC: EC 10:30 → 1SOBS 14:12 → 3SCARD 17:16
PROVIDERS: ADMIT Internal Medicine; ATTEND Internal Medicine
PROC: 5A09357 Assistance with Respiratory Ventilation, Less than 24 Consecutive Hours, Continuous Positive Airway Pressure (ICD-10-PCS; principal; 2024-01-31)
DX: J96.21 Acute and chronic respiratory failure with hypoxia (principal); J44.1 Chronic obstructive pulmonary disease with (acute) exacerbation; B20 Human immunodeficiency virus [HIV] disease; F32.A Depression, unspecified; I10 Essential (primary) hypertension; E87.1 Hypo-osmolality and hyponatremia; J96.22 Acute and chronic respiratory failure with hypercapnia; E86.1 Hypovolemia; R91.1 Solitary pulmonary nodule; F17.210 Nicotine dependence, cigarettes, uncomplicated; F41.0 Panic disorder [episodic paroxysmal anxiety]; Z79.51 Long term (current) use of inhaled steroids; Z86.73 Personal history of transient ischemic attack (TIA), and cerebral infarction without residual deficits; Z88.0 Allergy status to penicillin; Z91.011 Allergy to milk products; Z79.899 Other long term (current) drug therapy
CPT/HCPCS: 36415; 36600; 71045; 80048; 80053; 82805; 83605; 83735; 83880; 84484; 85025; 85610; 85730; 87040; 87636; 93005; 94640; 94660; 94760; 96365; 96366; 96375; 99285

== ENCOUNTER 2024-02-03 01:16 | Inpatient (IN) | payer MEDICARE, OTHER ==
[2024-02-03] MEDS: methylPREDNISolone SOD SUCCI 125 MG/2 ML VIAL IV STA (01:38)
[2024-02-03] MEDS: MAGNESIUM SULFATE-D5W PMX 1 GM in DEXTROSE/WATER 1 100ML.BAG IVPB STA (01:38)
[2024-02-03 01:39] LABS: ABG Oxygen Saturation 90.1 % (94-97); ABG PH 7.21 (7.35-7.45); ABG PO2 63 mmHg (83-108); Allen Test Performed? Yes
[2024-02-03 01:49] LABS: ABG PCO2 >98 mmHg (35-45)
[2024-02-03] MEDS: IPRATROPIUM-ALBUTEROL 3 ML NEB INHALATION STA (01:51)
[2024-02-03 01:57] LABS: Basophils % (A) 0 %; Eosinophils # (A) 0.1 k/uL (0-0.7); Eosinophils % (A) 1 %; HCT 39.1 % (34.0-46.0); HGB 12.5 gm/dL (11.4-16.0); Lymphocytes # (A) 2.5 k/uL (1.0-4.8); Lymphocytes % (A) 21 %; MCHC 31.9 g/dL (31.0-37.0); MCV 97.4 fL (80.0-100.0); Mean Platelet Volume 6.7; Monocytes % (A) 8 %; Neutrophils # (A) 7.9 k/uL (1.3-7.7); Neutrophils % (A) 68 %; Platelet Count 346 k/uL (150-450); RBC 4.02 m/uL (3.80-5.40); RDW 15.4 % (11.5-15.5); WBC 11.7 k/uL (3.8-10.6)
--- NOTE | 2024-02-03 02:02 | ED ---
SOB HPI - General Chief Complaint: Shortness of Breath Stated Complaint: TK Time Seen by Provider: 02/03/24 01:20 Source: patient Mode of arrival: EMS Limitations: no limitations - History of Present Illness Initial Comments: 53-year-old female who presents emergency department with altered mental status. EMS was called to the house for shortness of breath. Patient was able to speak with firefighters to state that she had been short of breath since the morning. She does have a history of COPD and continues to smoke. Patient was hospit alized and left AGAINST MEDICAL ADVICE on the third. EMS arrived on scene and patient had progressive decrease in mental status. She arrives on a nonrebreather. They state that her saturation was 88% on room air. She does wear oxygen at home. No report of any fevers chills or cough. HPI is limited because of patient's current condition - Related Data Home Medications Medication Instructions Recorded Confirmed Albuterol Sulfate [Albuterol 2 puff INHALATION RT-Q4H PRN 03/14/22 02/03/24 Sulfate Hfa] Bictegrav/Emtricit/Tenofov Ala 1 tab PO DAILY 08/10/23 02/03/24 [Biktarvy 50-200-25 mg Tablet] Ipratropium-Albuterol Nebulize 3 ml INHALATION RT-Q4H PRN 08/10/23 02/03/24 [Duoneb 0.5 mg-3 mg/3 ml Soln] Famotidine [Pepcid] 20 mg PO BID 09/30/23 02/03/24 Ondansetron [Zofran] 4 mg PO BID PRN 11/05/23 02/03/24 ALPRAZolam [Xanax] 0.5 mg PO BID 11/27/23 02/03/24 Diurex 2 tab PO Q4H PRN MDD 6 tabs 11/27/23 02/03/24 Fluticasone Propionate [Flonase 1 spray EA NOSTRIL DAILY PRN 11/27/23 02/03/24 Allergy Relief] Ibuprofen [Motrin Ib] 200 - 400 mg PO Q6H PRN 11/27/23 02/03/24 Simethicone [Gas-X] 125 - 250 mg PO ACHS PRN 11/27/23 02/03/24 Fluticasone/Umeclidin/Vilanter 1 puff INHALATION RT-DAILY 01/04/24 02/03/24 [Trelegy Ellipta 200-62.5-25] Mirtazapine [Remeron] 15 mg PO HS 01/04/24 02/03/24 Losartan [Cozaar] 50 mg PO DIRECTED 01/21/24 02/03/24 Nicotine 14Mg/24Hr Patch [Habitrol] 1 patch TRANSDERM DIRECTED 01/21/24 02/03/24 amLODIPine [Norvasc] 10 mg PO DIRECTED 01/21/24 02/03/24 Previous Rx's Medication Instructions Recorded Budesonide-Formot 160-4.5 Mcg 2 puff INHALATION RT-BID #1 each 01/21/24 [Symbicort 160-4.5 Mcg Inhaler] Ipratropium-Albuterol Nebulize 3 ml INHALATION RT-QID each 01/21/24 [Duoneb 0.5 mg-3 mg/3 ml Soln] Allergies Allergy/AdvReac Type Severity Reaction Status Date / Time Penicillins Allergy Anaphylaxis Verified 02/03/24 12:50 Milk Containing Products AdvReac Nausea & Verified 02/03/24 12:50 (Dairy) Vomiting & Diarrhea Review of Systems ROS Statement: Those systems with pertinent positive or pertinent negative responses have been documented in the HPI. ROS Other: All systems not noted in ROS Statement are negative. Past Medical History Past Medical History: Asthma, Blood Disorder, COPD, CVA/TIA Additional Past Medical History / Comment(s): HIV History of Any Multi-Drug Resistant Organisms: None Reported Past Surgical History: No Surgical Hx Reported Additional Past Surgical History / Comment(s): peg and tracheostomy reversal 2023 Past Anesthesia/Blood Transfusion Reactions: No Reported Reaction Past Psychological History: Anxiety, Depression, Panic Disorder Smoking Status: Former smoker Past Alcohol Use History: None Reported, Occasional Past Drug Use History: None Reported - Past Family History Mother History Unknown: Yes General Exam Limitations: altered mental status General appearance: lethargic Head exam: Present: atraumatic, normocephalic, normal inspection Eye exam: Present: normal appearance, PERRL, EOMI. Absent: scleral icterus, conjunctival injection, periorbital swelling ENT exam: Present: mucous membranes dry Respiratory exam: Present: decreased breath sounds (Patient has diminished breath sounds in all lung moralez) Cardiovascular Exam: Present: tachycardia GI/Abdominal exam: Present: soft, normal bowel sounds. Absent: distended, tenderness, guarding, rebound, rigid Psychiatric exam: Present: flat affect Skin exam: Present: diaphoretic Course Vital Signs 02/03/24 02/03/24 02/03/24 01:18 01:23 01:45 Temperature 97.3 F L Pulse Rate 114 H 112 H Respiratory 30 H 33 H 18 Rate Blood Pressure 163/112 153/117 O2 Sat by Pulse 100 98 Oximetry Fraction of 100 Inspired Oxygen (FIO2) 02/03/24 02/03/24 02/03/24 01:51 02:00 02:03 Temperature Pulse Rate 112 H 105 H 115 H Respiratory 24 Rate Blood Pressure 135/90 O2 Sat by Pulse 99 Oximetry Fraction of Inspired Oxygen (FIO2) 02/03/24 02/03/24 02/03/24 02:08 03:00 04:00 Temperature Pulse Rate 105 H 101 H 106 H Respiratory 24 20 23 Rate Blood Pressure 127/80 108/71 132/91 O2 Sat by Pulse 99 99 100 Oximetry Fraction of Inspired Oxygen (FIO2) 02/03/24 02/03/24 02/03/24 04:13 04:43 04:51 Temperature Pulse Rate 108 H 109 H Respiratory Rate Blood Pressure O2 Sat by Pulse Oximetry Fraction of 60 40 Inspired Oxygen (FIO2) 02/03/24 02/03/24 02/03/24 05:00 06:54 07:59 Temperature Pulse Rate 104 H 102 H Respiratory 20 18 Rate Blood Pressure 124/86 101/77 O2 Sat by Pulse 98 95 Oximetry Fraction of 40 Inspired Oxygen (FIO2) 02/03/24 02/03/24 02/03/24 08:03 08:13 08:21 Temperature Pulse Rate 103 H 100 101 H Respiratory 28 H Rate Blood Pressure 122/85 O2 Sat by Pulse 95 Oximetry Fraction of Inspired Oxygen (FIO2) 02/03/24 02/03/24 02/03/24 08:22 09:15 09:36 Temperature Pulse Rate 100 Respiratory 24 Rate Blood Pressure 114/81 O2 Sat by Pulse 90 L Oximetry Fraction of 30 35 Inspired Oxygen (FIO2) 02/03/24 02/03/24 02/03/24 09:37 10:12 11:32 Temperature Pulse Rate 105 H 101 H Respiratory 26 H 24 Rate Blood Pressure 112/78 118/83 O2 Sat by Pulse 94 L 94 L Oximetry Fraction of 35 Inspired Oxygen (FIO2) 02/03/24 02/03/24 02/03/24 11:53 11:58 12:17 Temperature Pulse Rate 105 H 102 H Respiratory Rate Blood Pressure O2 Sat by Pulse Oximetry Fraction of 35 Inspired Oxygen (FIO2) 02/03/24 02/03/24 02/03/24 13:00 14:20 15:41 Temperature Pulse Rate 102 H 107 H Respiratory 26 H 24 Rate Blood Pressure 112/75 155/110 O2 Sat by Pulse 94 L 94 L Oximetry Fraction of 35 Inspired Oxygen (FIO2) 02/03/24 02/03/24 02/03/24 15:45 15:54 18:49 Temperature Pulse Rate 93 96 98 Respiratory 20 Rate Blood Pressure 123/80 O2 Sat by Pulse 93 L Oximetry Fraction of Inspired Oxygen (FIO2) 02/03/24 20:02 Temperature Pulse Rate 96 Respiratory 23 Rate Blood Pressure 149/96 O2 Sat by Pulse 99 Oximetry Fraction of Inspired Oxygen (FIO2) Medical Decision Making - Medical Decision Making Was pt. sent in by a medical professional or institution (, PA, EXTRUDER OPERATOR HELPER, urgent care, hospital, or alf...) When possible be specific @ -No Did you speak to anyone other than the patient for history (EMS, parent, family, police, friend...)? What history was obtained from this source @ -No Did you review nursing and triage notes (agree or disagree)? Why? @ -I reviewed and agree with nursing and triage notes Were old charts reviewed (outside hosp., previous admission, EMS record, old E KG, old radiological studies, urgent care reports/EKG's, alf records)? Report findings @ -I reviewed discharge summary from recent hospitalization. Patient did leave AGAINST MEDICAL ADVICE Differential Diagnosis (chest pain, altered mental status, abdominal pain women, abdominal pain men, vaginal bleeding, weakness, fever, dyspnea, syncope, headache, dizziness, GI bleed, back pain, seizure, CVA, palpatations, mental health, musculoskeletal)? @ -Differential Dyspnea: Coronary syndrome, arrhythmia, tamponade, asthma, COPD, pulmonary embolism, pneumonia, pneumothorax, pulmonary effusion, anaphylaxis, diabetic ketoacidosis, flailed chest, pulmonary contusion, diaphragmatic rupture, anemia, neuromuscular, this is not meant to be an all-inclusive list. EKG interpreted by me (3pts min.). @ -Yes and demonstrates sinus tachycardia with a rate of 117. [place] interval 156. QRS 74. QTc of 333. Significant baseline artifact. No acute ST segment elevations X-rays interpreted by me (1pt min.). @ -Yes and demonstrates no acute process CT interpreted by me (1pt min.). @ -None done U/S interpreted by me (1pt. min.). @ -None done What testing was considered but not performed or refused? (CT, X-rays, U/S, labs)? Why? @ -None What meds were considered but not given or refused? Why? @ -None Did you discuss the management of the patient with other professionals (professionals i.e. Dr., PA, EXTRUDER OPERATOR HELPER, lab, RT, psych nurse, social services assistant, attendant campground, teacher, community chest officer, family caseworker)? Give summary @ -Discussed the case with Dr. Villegas from ICU. Also spoke with Deirdre from [facility] Was smoking cessation discussed for >3mins.? @ -No Was critical care preformed (if so, how long)? @ -40 minutes for management of BiPAP Were there social determinants of health that impacted care today? How? (Homelessness, low income, unemployed, alcoholism, drug addiction, transportation, low edu. Level, literacy, decrease access to med. care, alf, rehab)? @ -No Was there de-escalation of care discussed even if they declined (Discuss DNR or withdrawal of care, Hospice)? DNR status @ -No What co-morbidities impacted this encounter? (DM, HTN, Smoking, COPD, CAD, Cancer, CVA, ARF, Chemo, Hep., AIDS, mental health diagnosis, sleep apnea, morbid obesity)? @ -COPD, tobacco abuse Was patient admitted / discharged? Hospital course, mention meds given and route, prescriptions, significant lab abnormalities, going to OR and other pertinent info. @ -Upon arrival patient promptly placed into trauma 2. Thorough history and physical exam was performed. IV access was established. Patient is placed on BiPAP. She has significantly diminished breath sounds. She is given 6 mg DuoNeb treatment. IV Solu-Medrol was administered as well as magnesium. Laboratory studies are conducted and a chest x-ray was performed. Patient does become more responsive throughout her stay. ABG was performed. I was able to titrate down her FiO2. I spoke with Dr. Villegas about the patient as well as Deirdre from [facility]. She will be placed in the ICU. Patient remained in stable condition awaiting a bed Undiagnosed new problem with uncertain prognosis? @ -No Drug Therapy requiring intensive monitoring for toxicity (Heparin, Nitro, Insulin, Cardizem)? @ -No Were any procedures done? @ -No Diagnosis/symptom? @ -Acute BiPAP dependent respiratory failure, acute COPD exacerbation, continued nicotine abuse Acute, or Chronic, or Acute on Chronic? @ -Acute on chronic Uncomplicated (without systemic symptoms) or Complicated (systemic symptoms)? @ -Complicated Side effects of treatment? @ -No Exacerbation, Progression, or Severe Exacerbation? @ -No Poses a threat to life or bodily function? How? (Chest pain, [place], [place], pneumonia, PE, COPD, DKA, ARF, appy, cholecystitis, CVA, Diverticulitis, Homicidal, Suicidal, threat to staff... and all critical care pts) @ -Yes as patient is minimally responsive on arrival due to high CO2 levels - Lab Data Result diagrams: 02/04/24 06:19 02/04/24 05:04 Lab Results 02/03/24 02/03/24 02/03/24 Range/Units 01:28 01:30 01:30 WBC 11.7 H (3.8-10.6) k/uL RBC 4.02 (3.80-5.40) m/uL Hgb 12.5 (11.4-16.0) gm/dL Hct 39.1 (34.0-46.0) % MCV 97.4 (80.0-100.0) fL MCH 31.0 (25.0-35.0) pg MCHC 31.9 (31.0-37.0) g/dL RDW 15.4 (11.5-15.5) % Plt Count 346 (150-450) k/uL MPV 6.7 Neutrophils % 68 % Lymphocytes % 21 % Monocytes % 8 % Eosinophils % 1 % Basophils % 0 % Neutrophils # 7.9 H (1.3-7.7) k/uL Lymphocytes # 2.5 (1.0-4.8) k/uL Monocytes # 1.0 (0-1.0) k/uL Eosinophils # 0.1 (0-0.7) k/uL Basophils # 0.0 (0-0.2) k/uL PT 9.9 L (10.0-12.5) sec INR 0.9 (<1.2) APTT 20.4 L (22.0-30.0) sec Sample Site Right Brachial ABG pH 7.21 L (7.35-7.45) ABG pCO2 >98 H* (35-45) mmHg ABG pO2 63 L (83-108) mmHg ABG O2 Saturation 90.1 L (94-97) % Milton Test Yes Hemoglobin 12.6 (11.4-16.0) gm/dL FiO2 100 % Sodium (137-145) mmol/L Potassium (3.5-5.1) mmol/L Chloride (98-107) mmol/L Carbon Dioxide (22-30) mmol/L Anion Gap mmol/L BUN (7-17) mg/dL Creatinine (0.52-1.04) mg/dL Est GFR (CKD-EPI)AfAm (>60 ml/min/1.73 sqM) Est GFR (CKD-EPI)NonAf (>60 ml/min/1.73 sqM) Glucose (74-99) mg/dL Plasma Lactic Acid Jarad (0.7-2.0) mmol/L Calcium (8.4-10.2) mg/dL Total Bilirubin (0.2-1.3) mg/dL AST (14-36) U/L ALT (4-34) U/L Alkaline Phosphatase (38-126) U/L Troponin I (0.000-0.034) ng/mL NT-Pro-B Natriuret Pep pg/mL Total Protein (6.3-8.2) g/dL Albumin (3.5-5.0) g/dL 02/03/24 02/03/24 02/03/24 Range/Units 01:30 01:30 01:30 WBC (3.8-10.6) k/uL RBC (3.80-5.40) m/uL Hgb (11.4-16.0) gm/dL Hct (34.0-46.0) % MCV (80.0-100.0) fL MCH (25.0-35.0) pg MCHC (31.0-37.0) g/dL RDW (11.5-15.5) % Plt Count (150-450) k/uL MPV Neutrophils % % Lymphocytes % % Monocytes % % Eosinophils % % Basophils % % Neutrophils # (1.3-7.7) k/uL Lymphocytes # (1.0-4.8) k/uL Monocytes # (0-1.0) k/uL Eosinophils # (0-0.7) k/uL Basophils # (0-0.2) k/uL PT (10.0-12.5) sec INR (<1.2) APTT (22.0-30.0) sec Sample Site ABG pH (7.35-7.45) ABG pCO2 (35-45) mmHg ABG pO2 (83-108) mmHg ABG O2 Saturation (94-97) % Milton Test Hemoglobin (11.4-16.0) gm/dL FiO2 % Sodium 136 L (137-145) mmol/L Potassium 3.9 (3.5-5.1) mmol/L Chloride 89 L (98-107) mmol/L Carbon Dioxide 46 H* (22-30) mmol/L Anion Gap 1 mmol/L BUN 14 (7-17) mg/dL Creatinine 0.39 L (0.52-1.04) mg/dL Est GFR (CKD-EPI)AfAm >90 (>60 ml/min/1.73 sqM) Est GFR (CKD-EPI)NonAf >90 (>60 ml/min/1.73 sqM) Glucose 122 H (74-99) mg/dL Plasma Lactic Acid Jarad 0.8 (0.7-2.0) mmol/L Calcium 9.1 (8.4-10.2) mg/dL Total Bilirubin 0.5 (0.2-1.3) mg/dL AST 28 (14-36) U/L ALT 44 H (4-34) U/L Alkaline Phosphatase 99 (38-126) U/L Troponin I 0.013 (0.000-0.034) ng/mL NT-Pro-B Natriuret Pep 245 pg/mL Total Protein 6.5 (6.3-8.2) g/dL Albumin 4.3 (3.5-5.0) g/dL Disposition Clinical Impression: Hypoxia, Acute exacerbation of chronic obstructive pulmonary disease, BiPAP (biphasic positive airway pressure) dependence Disposition: ADMITTED IP TO THIS HOSP Condition: Serious Is patient prescribed a controlled substance at d/c from ED?: No Time of Disposition: 03:29 Decision to Admit Reason: Admit from EC Decision Date: 02/03/24 Decision Time: 03:29
[2024-02-03 02:10] LABS: ALT 44 U/L (4-34); AST 28 U/L (14-36); African American GFR (CKD) >90 (>60 ml/min/1.73 sqM); Albumin 4.3 g/dL (3.5-5.0); Alkaline Phosphatase 99 U/L (38-126); Blood Urea Nitrogen 14 mg/dL (7-17); Calcium 9.1 mg/dL (8.4-10.2); Chloride 89 mmol/L (98-107); Glucose 122 mg/dL (74-99); Non-African American GFR(CKD) >90 (>60 ml/min/1.73 sqM); Potassium 3.9 mmol/L (3.5-5.1); Sodium 136 mmol/L (137-145); Total Bilirubin 0.5 mg/dL (0.2-1.3); Total Protein 6.5 g/dL (6.3-8.2)
[2024-02-03 02:15] LABS: INR 0.9 (<1.2); Prothrombin Time 9.9 sec (10.0-12.5)
[2024-02-03 02:16] LABS: Anion Gap 1 mmol/L
[2024-02-03 02:19] LABS: NT-Pro-B-Type Natriuretic Pept 245 pg/mL
[2024-02-03 02:25] LABS: Partial Thromboplastin Time 20.4 sec (22.0-30.0)
[2024-02-03 02:40] LABS: Carbon Dioxide 46 mmol/L (22-30)
[2024-02-03] MEDS ORDERED: NALOXONE 0.4 MG/ML 1 ML VIAL IV PRN (03:30)
[2024-02-03] MEDS ORDERED: Magnesium Replacement Protocol 1 EACH MISC MISCELLANE PRN (04:41)
[2024-02-03] MEDS ORDERED: Potassium Replacement Protocol 1 EACH MISC MISCELLANE PRN (04:41)
[2024-02-03] MEDS: IPRATROPIUM-ALBUTEROL 3 ML NEB INHALATION SCH (04:42)
--- NOTE | 2024-02-03 07:36 | XR ---
EXAMINATION TYPE: XR chest 1V portable DATE OF EXAM: 02/03/2024 COMPARISON: 01/31/2024 INDICATION: Difficulty breathing TECHNIQUE: Single frontal view of the chest is obtained. FINDINGS: The heart size is normal. The pulmonary vasculature is normal. The lungs are clear. IMPRESSION: 1. No acute pulmonary process. [facility], Workstation: [facility], 02/03/2024 7:34 AM
[2024-02-03] MEDS: methylPREDNISolone SOD SUCCI 40 MG/ML 1 ML VIAL IV SCH (07:56)
[2024-02-03 08:13] LABS: ABG Base Excess 20.2 mmol/L; ABG PH 7.39 (7.35-7.45); ABG PO2 67 mmHg (83-108); ABG TCO2 51 mmol/L (19-24); Allen Test Performed? Yes
[2024-02-03 08:19] LABS: ABG HCO3 49 mmol/L (21-25); ABG PCO2 81 mmHg (35-45)
--- NOTE | 2024-02-03 12:59 | P.CNPUL ---
History of Present Illness Consult date: 02/03/24 Requesting physician: Cheli Zavaleta Reason for consult: dyspnea, hypoxemia Chief complaint: Altered mental status, shortness of breath History of present illness: Patient is a 53-year-old female with past medical history significant for COPD, chronic and ongoing tobacco dependence, ventilator dependent respiratory failure with previous tracheostomy and PEG tube, HIV on Biktarvy. In July, she had a prolonged stay in the intensive care unit, she was intubated and placed on the mechanical ventilator. Eventually required tracheostomy and PEG tube. Subsequently, the patient was decannulated. She has had multiple hospitalizations since then, for acute COPD exacerbation; in fact, she just was admitted on 01/31/2024 and left AMA on 02/01/2024. Brought in again early this morning by EMS for shortness of breath and altered mental status. Chest x-ray revealed no acute pulmonary process. Arterial blood gases revealed a PaO2 of 63, pCO2 of greater than 98 and a pH of 7.21 on 100% FiO2 via BiPAP 12 over 6 and now 40% FiO2. White count 11.7. Hemoglobin 12.5. Platelets 346. Sodium 136. Potassium 3.9. Bicarb 46. BUN 14. Creatinine 0.39. Glucose 122. She is seen today in consultation in the emergency department. She is arousable. She remains on BiPAP. She has been initiated on DuoNeb inhalations, Pulmicort and Perforomist inhalations, IV Solu-Medrol. Review of Systems ROS unobtainable: due to mental status Past Medical History Past Medical History: Asthma, Blood Disorder, COPD, CVA/TIA Additional Past Medical History / Comment(s): HIV History of Any Multi-Drug Resistant Organisms: None Reported Past Surgical History: No Surgical Hx Reported Additional Past Surgical History / Comment(s): peg and tracheostomy reversal 2023 Past Anesthesia/Blood Transfusion Reactions: No Reported Reaction Past Psychological History: Anxiety, Depression, Panic Disorder Smoking Status: Former smoker Past Alcohol Use History: None Reported, Occasional Past Drug Use History: None Reported - Past Family History Mother History Unknown: Yes Medications and Allergies Home Medications Medication Instructions Recorded Confirmed Type Albuterol Sulfate [Albuterol 2 puff INHALATION RT-Q4H PRN 03/14/22 01/31/24 History Sulfate Hfa] Bictegrav/Emtricit/Tenofov Ala 1 tab PO DAILY 08/10/23 01/31/24 History [Biktarvy 50-200-25 mg Tablet] Ipratropium-Albuterol Nebulize 3 ml INHALATION RT-Q4H PRN 08/10/23 01/31/24 History [Duoneb 0.5 mg-3 mg/3 ml Soln] Famotidine [Pepcid] 20 mg PO BID 09/30/23 01/31/24 History Ondansetron [Zofran] 4 mg PO BID PRN 11/05/23 01/31/24 History ALPRAZolam [Xanax] 0.5 mg PO BID 11/27/23 01/31/24 History Diurex 2 tab PO Q4H PRN MDD 6 tabs 11/27/23 01/31/24 History Fluticasone Propionate [Flonase 1 spray EA NOSTRIL DAILY PRN 11/27/23 01/31/24 History Allergy Relief] Ibuprofen [Motrin Ib] 200 - 400 mg PO Q6H PRN 11/27/23 01/31/24 History Simethicone [Gas-X] 125 - 250 mg PO ACHS PRN 11/27/23 01/31/24 History Fluticasone/Umeclidin/Vilanter 1 puff INHALATION RT-DAILY 01/04/24 01/31/24 History [Trelegy Ellipta 200-62.5-25] Mirtazapine [Remeron] 15 mg PO HS 01/04/24 01/31/24 History Budesonide-Formot 160-4.5 Mcg 2 puff INHALATION RT-BID #1 each 01/21/24 01/31/24 Rx [Symbicort 160-4.5 Mcg Inhaler] Ipratropium-Albuterol Nebulize 3 ml INHALATION RT-QID each 01/21/24 01/31/24 Rx [Duoneb 0.5 mg-3 mg/3 ml Soln] Losartan [Cozaar] 50 mg PO DIRECTED 01/21/24 01/31/24 History Nicotine 14Mg/24Hr Patch [Habitrol] 1 patch TRANSDERM DIRECTED 01/21/24 01/31/24 History amLODIPine [Norvasc] 10 mg PO DIRECTED 01/21/24 01/31/24 History Allergies Allergy/AdvReac Type Severity Reaction Status Date / Time Penicillins Allergy Anaphylaxis Verified 01/31/24 13:53 Milk Containing Products AdvReac Nausea & Verified 01/31/24 13:53 (Dairy) Vomiting & Diarrhea Physical Exam Vitals: Vital Signs Temp Pulse Resp BP Pulse Ox FiO2 02/03/24 12:17 102 H 02/03/24 11:58 105 H 02/03/24 11:53 35 02/03/24 11:32 101 H 24 118/83 94 L 02/03/24 10:12 105 H 26 H 112/78 94 L 02/03/24 09:37 35 02/03/24 09:36 35 02/03/24 09:15 100 24 114/81 90 L 02/03/24 08:22 30 02/03/24 08:21 101 H 02/03/24 08:13 100 28 H 122/85 95 02/03/24 08:03 103 H 02/03/24 07:59 40 02/03/24 06:54 102 H 18 101/77 95 02/03/24 05:00 104 H 20 124/86 98 02/03/24 04:51 109 H 40 02/03/24 04:43 108 H 02/03/24 04:13 60 02/03/24 04:00 106 H 23 132/91 100 02/03/24 03:00 101 H 20 108/71 99 02/03/24 02:08 105 H 24 127/80 99 02/03/24 02:03 115 H 02/03/24 02:00 105 H 24 135/90 99 02/03/24 01:51 112 H 02/03/24 01:45 112 H 18 153/117 98 02/03/24 01:23 33 H 02/03/24 01:18 97.3 F L 114 H 30 H 163/112 100 100 Intake and Output 02/02/24 02/03/24 02/03/24 22:59 06:59 14:59 Other: Weight 49.895 kg GENERAL EXAM: Arousable, 53-year-old female, on BiPAP, comfortable in no apparent distress. HEAD: Normocephalic. EYES: Normal reaction of pupils, equal size. NOSE: Clear with pink turbinates. THROAT: No erythema or exudates. NECK: No masses, no JVD. CHEST: No chest wall deformity. LUNGS: Equal air entry with bilateral end expiratory wheeze. CVS: S1 and S2 normal with no audible murmur, regular rhythm. ABDOMEN: No hepatosplenomegaly, normal bowel sounds, no guarding or rigidity. SPINE: No scoliosis or deformity SKIN: No rashes CENTRAL NERVOUS SYSTEM: No focal deficits, tone is normal in all 4 extremities. EXTREMITIES: There is no peripheral edema. No clubbing, no cyanosis. Peripheral pulses are intact. Results - Laboratory Findings CBC and BMP: 02/03/24 01:30 02/03/24 01:30 ABG ABG pH 7.39 (7.35-7.45) 02/03/24 08:07 ABG pCO2 81 mmHg (35-45) H* 02/03/24 08:07 ABG pO2 67 mmHg (83-108) L 02/03/24 08:07 ABG O2 Saturation 95.0 % (94-97) 02/03/24 08:07 PT/INR, D-dimer PT 9.9 sec (10.0-12.5) L 02/03/24 01:30 INR 0.9 (<1.2) 02/03/24 01:30 Abnormal lab findings: Abnormal Labs 02/03/24 02/03/24 02/03/24 01:28 01:30 01:30 WBC 11.7 H Neutrophils # 7.9 H PT 9.9 L APTT 20.4 L ABG pH 7.21 L ABG pCO2 >98 H* ABG pO2 63 L ABG HCO3 ABG Total CO2 ABG O2 Saturation 90.1 L Sodium Chloride Carbon Dioxide Creatinine Glucose ALT 02/03/24 02/03/24 01:30 08:07 WBC Neutrophils # PT APTT ABG pH ABG pCO2 81 H* ABG pO2 67 L ABG HCO3 49 H* ABG Total CO2 51 H ABG O2 Saturation Sodium 136 L Chloride 89 L Carbon Dioxide 46 H* Creatinine 0.39 L Glucose 122 H ALT 44 H - Diagnostic Findings Chest x-ray: image reviewed (No acute pulmonary process) Assessment and Plan Assessment: Acute on chronic hypoxemic/hypercapnic respiratory failure secondary to an exacerbation of chronic obstructive pulmonary disease with chronic and ongoing tobacco dependence Multiple admissions for the same most recently here 01/31/2024 and left AGAINST MEDICAL ADVICE on 02/01/2024. Eight hospitalizations this year since July 2023 History of ventilator dependent respiratory failure with previous tracheostomy and PEG tube insertion status post decannulation Very severe underlying COPD with an FEV1 22% of predicted Chronic hypoxemic respiratory failure, normally maintained on 2 L/min nasal cannula 21/11 Chronic ongoing tobacco dependence, currently smoking 1/2 pack/day Acquired immunodeficiency syndrome, maintained on Biktarvy, most recent CD4 count 83 History of left upper lobe lung nodule, previously measuring 9 mm in size, being monitored on outpatient basis Plan: The patient was seen and evaluated Chest x-ray, labs and medications reviewed Continue BiPAP support for now Transition to nasal cannula as tolerated Continue DuoNeb inhalations every 4 hours Continue Pulmicort and Perforomist inhalations Continue IV Solu-Medrol Will again be educated regarding the complete smoking cessation NicoDerm patch has been applied This is her eighth admission to the hospital this year since July Will again be educated regarding medication and medical follow-up compliance May need subacute rehabilitation or be assigned a legal guardian if unable to care for herself at home I have personally seen and examined the patient, performed the documentation and the assessment and plan as written. Number of minutes spent on the visit: 20.
--- NOTE | 2024-02-03 14:29 | P.HPIM ---
History of Present Illness H&P Date: 02/03/24 History of present illness; Patient is a 53-year-old female with known history of asthma/COPD, history of CVA/TIA, HIV, anxiety/depression/panic disorder and prior history of smoking, hypertension who presents the ER because of shortness of breath. Patient had been admitted multiple times in the past for similar complaints. Patient was in the hospital couple of days ago at which time she was admitted for COPD exacerbation and left AMA. Patient stated that she has been short of breath since the morning. Patient complains of shortness of breath at rest as well as on exertion. Patient stated that she is unable to catch her breath and a hard time talking. Denies any chest pain. There is no complaint of fever or chills. EMS when arrived at her house, she was very short of breath, had to be placed on nonrebreather and she was sent to ER Initial lab work done in the ER showed WBC 11.7, hemoglobin 12.5, platelet 346, sodium 136, potassium 3.9, BUN 14, creatinine 0.39, glucose 122, ALT 44, troponin 0.013, proBNP 245, ABGs pH 7.21, pCO2 98, pO2 63, EKG done in the ER showed heart rate of 117, no ST segment elevation or depression seen, no T-wave inversions seen. Chest x-ray done in the ER no acute pulmonary process Patient admitted to internal medicine service REVIEW OF SYSTEMS: CONSTITUTIONAL: No fever, no malaise, no fatigue. HEENT: No recent visual problems or hearing problems. Denied any sore throat. CARDIOVASCULAR: As mentioned above PULMONARY: As mentioned above GASTROINTESTINAL: No diarrhea, no nausea, no vomiting, no abdominal pain. NEUROLOGICAL: No headaches, no weakness, no numbness. HEMATOLOGICAL: Denies any bleeding or petechiae. GENITOURINARY: Denies any burning micturition, frequency, or urgency. MUSCULOSKELETAL/RHEUMATOLOGICAL: Denies any joint pain, swelling, or any muscle pain. ENDOCRINE: Denies any polyuria or polydipsia. The rest of the 14-point review of systems is negative. PHYSICAL EXAMINATION: GENERAL: The patient is alert and oriented x3, ill looking, HEENT: Pupils are round and equally reacting to light. EOMI. No scleral icterus. No conjunctival pallor. Normocephalic, atraumatic. No pharyngeal erythema. No thyromegaly. CARDIOVASCULAR: S1 and S2 present. No murmurs, rubs, or gallops. PULMONARY: Tachypneic, coarse breath sound bilaterally, expiratory wheeze audible ABDOMEN: Soft, nontender, nondistended, normoactive bowel sounds. No palpable organomegaly. MUSCULOSKELETAL: No joint swelling or deformity. EXTREMITIES: No cyanosis, clubbing, or pedal edema. NEUROLOGICAL: Gross neurological examination did not reveal any focal deficits. SKIN: No rashes. Assessment and plan Acute on chronic hypoxemic hypercapnic respiratory failure Acute COPD exacerbation Hypertension History of CVA/TIA HIV on antiretroviral therapy. Anxiety/depression/panic disorder Prior history of smoking Monitor vital signs Monitor CBC Monitor CMP Continue telemetry monitoring Ordered oxygen supplementation Ordered BiPAP Ordered serial ABGs Ordered breathing treatments Ordered IV Solu-Medrol Consulted pulmonary Labs and medication were reviewed.. Continue same treatment. Continue with symptomatic treatment. Resume home medication. Monitor labs and vitals. DVT and GI prophylaxis. Further recommendations as per clinical course of the patient Dictation was produced using [employer] dictation software. please excuse any grammatical, word or spelling errors. Past Medical History Past Medical History: Asthma, Blood Disorder, COPD, CVA/TIA Additional Past Medical History / Comment(s): HIV History of Any Multi-Drug Resistant Organisms: None Reported Past Surgical History: No Surgical Hx Reported Additional Past Surgical History / Comment(s): peg and tracheostomy reversal 2023 Past Anesthesia/Blood Transfusion Reactions: No Reported Reaction Past Psychological History: Anxiety, Depression, Panic Disorder Smoking Status: Former smoker Past Alcohol Use History: None Reported, Occasional Past Drug Use History: None Reported - Past Family History Mother History Unknown: Yes Medications and Allergies Home Medications Medication Instructions Recorded Confirmed Type Albuterol Sulfate [Albuterol 2 puff INHALATION RT-Q4H PRN 03/14/22 01/31/24 History Sulfate Hfa] Bictegrav/Emtricit/Tenofov Ala 1 tab PO DAILY 08/10/23 01/31/24 History [Biktarvy 50-200-25 mg Tablet] Ipratropium-Albuterol Nebulize 3 ml INHALATION RT-Q4H PRN 08/10/23 01/31/24 History [Duoneb 0.5 mg-3 mg/3 ml Soln] Famotidine [Pepcid] 20 mg PO BID 09/30/23 01/31/24 History Ondansetron [Zofran] 4 mg PO BID PRN 11/05/23 01/31/24 History ALPRAZolam [Xanax] 0.5 mg PO BID 11/27/23 01/31/24 History Diurex 2 tab PO Q4H PRN MDD 6 tabs 11/27/23 01/31/24 History Fluticasone Propionate [Flonase 1 spray EA NOSTRIL DAILY PRN 11/27/23 01/31/24 History Allergy Relief] Ibuprofen [Motrin Ib] 200 - 400 mg PO Q6H PRN 11/27/23 01/31/24 History Simethicone [Gas-X] 125 - 250 mg PO ACHS PRN 11/27/23 01/31/24 History Fluticasone/Umeclidin/Vilanter 1 puff INHALATION RT-DAILY 01/04/24 01/31/24 History [Trelegy Ellipta 200-62.5-25] Mirtazapine [Remeron] 15 mg PO HS 01/04/24 01/31/24 History Budesonide-Formot 160-4.5 Mcg 2 puff INHALATION RT-BID #1 each 01/21/24 01/31/24 Rx [Symbicort 160-4.5 Mcg Inhaler] Ipratropium-Albuterol Nebulize 3 ml INHALATION RT-QID each 01/21/24 01/31/24 Rx [Duoneb 0.5 mg-3 mg/3 ml Soln] Losartan [Cozaar] 50 mg PO DIRECTED 01/21/24 01/31/24 History Nicotine 14Mg/24Hr Patch [Habitrol] 1 patch TRANSDERM DIRECTED 01/21/24 01/31/24 History amLODIPine [Norvasc] 10 mg PO DIRECTED 01/21/24 01/31/24 History Allergies Allergy/AdvReac Type Severity Reaction Status Date / Time Penicillins Allergy Anaphylaxis Verified 01/31/24 13:53 Milk Containing Products AdvReac Nausea & Verified 01/31/24 13:53 (Dairy) Vomiting & Diarrhea Physical Exam Vitals: Vital Signs Temp Pulse Resp BP Pulse Ox FiO2 02/03/24 09:37 35 02/03/24 09:36 35 02/03/24 08:22 30 10/05/24 08:21 101 H 02/03/24 08:13 100 28 H 122/85 95 02/03/24 08:03 103 H 02/03/24 07:59 40 02/03/24 06:54 102 H 18 101/77 95 02/03/24 05:00 104 H 20 124/86 98 02/03/24 04:51 109 H 40 02/03/24 04:43 108 H 02/03/24 04:13 60 02/03/24 04:00 106 H 23 132/91 100 02/03/24 03:00 101 H 20 108/71 99 02/03/24 02:08 105 H 24 127/80 99 02/03/24 02:03 115 H 02/03/24 02:00 105 H 24 135/90 99 02/03/24 01:51 112 H 02/03/24 01:45 112 H 18 153/117 98 02/03/24 01:23 33 H 02/03/24 01:18 97.3 F L 114 H 30 H 163/112 100 100 Intake and Output 02/02/24 02/03/24 02/03/24 22:59 06:59 14:59 Other: Weight 49.895 kg Results CBC & Chem 7: 02/03/24 01:30 02/03/24 01:30 Labs: Abnormal Lab Results - Last 24 Hours (Table) 02/03/24 02/03/24 02/03/24 Range/Units 01:28 01:30 01:30 WBC 11.7 H (3.8-10.6) k/uL Neutrophils # 7.9 H (1.3-7.7) k/uL PT 9.9 L (10.0-12.5) sec APTT 20.4 L (22.0-30.0) sec ABG pH 7.21 L (7.35-7.45) ABG pCO2 >98 H* (35-45) mmHg ABG pO2 63 L (83-108) mmHg ABG HCO3 (21-25) mmol/L ABG Total CO2 (19-24) mmol/L ABG O2 Saturation 90.1 L (94-97) % Sodium (137-145) mmol/L Chloride (98-107) mmol/L Carbon Dioxide (22-30) mmol/L Creatinine (0.52-1.04) mg/dL Glucose (74-99) mg/dL ALT (4-34) U/L 02/03/24 02/03/24 Range/Units 01:30 08:07 WBC (3.8-10.6) k/uL Neutrophils # (1.3-7.7) k/uL PT (10.0-12.5) sec APTT (22.0-30.0) sec ABG pH (7.35-7.45) ABG pCO2 81 H* (35-45) mmHg ABG pO2 67 L (83-108) mmHg ABG HCO3 49 H* (21-25) mmol/L ABG Total CO2 51 H (19-24) mmol/L ABG O2 Saturation (94-97) % Sodium 136 L (137-145) mmol/L Chloride 89 L (98-107) mmol/L Carbon Dioxide 46 H* (22-30) mmol/L Creatinine 0.39 L (0.52-1.04) mg/dL Glucose 122 H (74-99) mg/dL ALT 44 H (4-34) U/L
[2024-02-03 20:20] LABS: Glucose,Whole Blood 131 mg/dL (70-110)
[2024-02-03] MEDS: FORMOTEROL FUMARATE 20 MCG/2 ML NEBU INHALATION SCH (20:22)
[2024-02-03] MEDS: BUDESONIDE 1 MG/2 ML NEBU INHALATION SCH (20:22)
[2024-02-03] MEDS ORDERED: ONDANSETRON 4 MG TAB PO PRN (20:30)
[2024-02-03] MEDS ORDERED: FLUTICASONE NASAL 50MCG/SPRAY 16GM BTL EA NOSTRIL PRN (20:30)
[2024-02-03] MEDS: FAMOTIDINE 20 MG TAB PO SCH (20:58)
[2024-02-03] MEDS: MIRTAZAPINE 15 MG TAB PO SCH (20:58)
[2024-02-03] MEDS: ALPRAZolam 0.5 MG TAB PO PRN (20:58)
[2024-02-03] MEDS: LOSARTAN 50 MG TAB PO SCH (21:30)
[2024-02-03] MEDS: amLODIPine 10 MG TAB PO SCH (21:30)
[2024-02-03] MEDS: NICOTINE 14MG/24HR PATCH TRANSDERM SCH (21:30)
[2024-02-04 05:54] LABS: Glucose,Whole Blood 179 mg/dL (70-110)
[2024-02-04 06:21] LABS: ALT 31 U/L (4-34); AST 31 U/L (14-36); African American GFR (CKD) >90 (>60 ml/min/1.73 sqM); Albumin 3.4 g/dL (3.5-5.0); Alkaline Phosphatase 69 U/L (38-126); Anion Gap 5 mmol/L; Blood Urea Nitrogen 20 mg/dL (7-17); Calcium 8.6 mg/dL (8.4-10.2); Chloride 92 mmol/L (98-107); Glucose 178 mg/dL (74-99); Non-African American GFR(CKD) >90 (>60 ml/min/1.73 sqM); Potassium 4.2 mmol/L (3.5-5.1); Sodium 137 mmol/L (137-145); Total Bilirubin 0.6 mg/dL (0.2-1.3); Total Protein 5.6 g/dL (6.3-8.2)
[2024-02-04 06:28] LABS: Carbon Dioxide 40 mmol/L (22-30)
[2024-02-04 07:02] LABS: Basophils % (A) 0 %; Eosinophils % (A) 0 %; HCT 35.1 % (34.0-46.0); HGB 11.5 gm/dL (11.4-16.0); Lymphocytes # (A) 0.4 k/uL (1.0-4.8); Lymphocytes % (A) 6 %; MCH 31.5 pg (25.0-35.0); MCHC 32.7 g/dL (31.0-37.0); MCV 96.2 fL (80.0-100.0); Mean Platelet Volume 6.9; Monocytes # (A) 0.3 k/uL (0-1.0); Monocytes % (A) 6 %; Neutrophils % (A) 86 %; Platelet Count 319 k/uL (150-450); RBC 3.65 m/uL (3.80-5.40); WBC 5.7 k/uL (3.8-10.6)
[2024-02-04] MEDS ORDERED: NON FORMULARY DRUG (Fluticasone/Umeclidin/Vilanter [Trelegy Ellipta 200-62.5-25] 1 EACH Bl INHALATION SCH (08:00)
[2024-02-04] MEDS: Bictegrav/Emtricit/Tenofov Ala [Biktarvy 50-200-25 Mg Tablet] 1 EACH T PO SCH (09:22)
[2024-02-04 11:31] LABS: Glucose,Whole Blood 162 mg/dL (70-110)
--- NOTE | 2024-02-04 14:08 | P.PN ---
Subjective Progress Note Date: 02/04/24 Patient is a 53-year-old female with known history of asthma/COPD, history of CVA/TIA, HIV, anxiety/depression/panic disorder and prior history of smoking, hypertension who presents the ER because of shortness of breath. Patient had been admitted multiple times in the past for similar complaints. Patient was in the hospital couple of days ago at which time she was admitted for COPD exacerbation and left AMA. Patient stated that she has been short of breath since the morning. Patient complains of shortness of breath at rest as well as on exertion. Patient stated that she is unable to catch her breath and a hard time talking. Denies any chest pain. There is no complaint of fever or chills. EMS when arrived at her house, she was very short of breath, had to be placed on nonrebreather and she was sent to ER Initial lab work done in the ER showed WBC 11.7, hemoglobin 12.5, platelet 346, sodium 136, potassium 3.9, BUN 14, creatinine 0.39, glucose 122, ALT 44, troponin 0.013, proBNP 245, ABGs pH 7.21, pCO2 98, pO2 63, EKG done in the ER showed heart rate of 117, no ST segment elevation or depression seen, no T-wave inversions seen. Chest x-ray done in the ER no acute pulmonary process Patient admitted to internal medicine service 02/03. Patient seen and examined. Temperature 98, heart rate 93, blood pressure 142/71, currently on 3 L of oxygen. Patient is off BiPAP. Still complaining of shortness of breath on exertion. REVIEW OF SYSTEMS: CONSTITUTIONAL: No fever, no malaise,. CARDIOVASCULAR: No chest pain, no palpitations, no syncope. PULMONARY: As mentioned above GASTROINTESTINAL: No diarrhea, no nausea, no vomiting, no abdominal pain. NEUROLOGICAL: No headaches, no weakness, PHYSICAL EXAMINATION: GENERAL: The patient is alert and oriented x3, not in any acute distress. Well developed, well nourished. HEENT: Pupils are round and equally reacting to light. EOMI. No scleral icterus. No conjunctival pallor. Normocephalic, atraumatic. No pharyngeal erythema. No thyromegaly. CARDIOVASCULAR: S1 and S2 present. No murmurs, rubs, or gallops. PULMONARY: Coarse breath sound bilaterally, no crackles, expiratory wheeze audible ABDOMEN: Soft, nontender, nondistended, normoactive bowel sounds. No palpable organomegaly. MUSCULOSKELETAL: No joint swelling or deformity. EXTREMITIES: No cyanosis, clubbing, or pedal edema. NEUROLOGICAL: Gross neurological examination did not reveal any focal deficits. SKIN: No rashes. Assessment and plan Acute on chronic hypoxemic hypercapnic respiratory failure Acute COPD exacerbation Hypertension History of CVA/TIA HIV on antiretroviral therapy. Anxiety/depression/panic disorder Prior history of smoking Monitor vital signs Monitor CBC Monitor CMP Continue telemetry monitoring Continue oxygen supplementation Continue BiPAP as needed Ordered serial ABGs Continue breathing treatments continue IV Solu-Medrol Pulmonary following Labs and medication were reviewed.. Continue same treatment. Continue with symptomatic treatment. Resume home medication. Monitor labs and vitals. DVT and GI prophylaxis. Further recommendations as per clinical course of the patient Dictation was produced using [employer] dictation software. please excuse any grammatical, word or spelling errors. Objective - Vital Signs Vital signs: Vital Signs Temp 98 F 02/04/24 09:00 Pulse 93 02/04/24 09:00 Resp 20 02/04/24 09:00 BP 142/71 02/04/24 09:00 Pulse Ox 98 02/04/24 09:00 FiO2 35 02/03/24 15:41 Intake & Output 02/03/24 02/04/24 02/04/24 18:59 06:59 18:59 Intake Total 260 Balance 260 Weight 48.7 kg Intake: IV 20 Invasive Line 1 10 Invasive Line 2 10 Oral 240 Other: Voiding Method Toilet # Voids 1 # Bowel Movements 1 - Labs CBC & Chem 7: 02/04/24 06:19 02/04/24 05:04 Labs: Abnormal Lab Results - Last 24 Hours (Table) 02/03/24 02/04/24 02/04/24 Range/Units 20:18 05:04 05:53 RBC (3.80-5.40) m/uL Lymphocytes # (1.0-4.8) k/uL Chloride 92 L (98-107) mmol/L Carbon Dioxide 40 H (22-30) mmol/L BUN 20 H (7-17) mg/dL Creatinine 0.28 L (0.52-1.04) mg/dL Glucose 178 H (74-99) mg/dL POC Glucose (mg/dL) 131 H 179 H (70-110) mg/dL Total Protein 5.6 L (6.3-8.2) g/dL Albumin 3.4 L (3.5-5.0) g/dL 02/04/24 Range/Units 06:19 RBC 3.65 L (3.80-5.40) m/uL Lymphocytes # 0.4 L (1.0-4.8) k/uL Chloride (98-107) mmol/L Carbon Dioxide (22-30) mmol/L BUN (7-17) mg/dL Creatinine (0.52-1.04) mg/dL Glucose (74-99) mg/dL POC Glucose (mg/dL) (70-110) mg/dL Total Protein (6.3-8.2) g/dL Albumin (3.5-5.0) g/dL
--- NOTE | 2024-02-04 14:22 | P.PN ---
Subjective Progress Note Date: 02/04/24 Principal diagnosis: Acute on chronic hypoxic and hypercapnic respiratory failure secondary to COPD exacerbation Patient is a 53-year-old female with past medical history significant for COPD, chronic and ongoing tobacco dependence, ventilator dependent respiratory failure with previous tracheostomy and PEG tube, HIV on Biktarvy. In July, she had a prolonged stay in the intensive care unit, she was intubated and placed on the mechanical ventilator. Eventually required tracheostomy and PEG tube. Subsequently, the patient was decannulated. She has had multiple hospit alizations since then, for acute COPD exacerbation; in fact, she just was admitted on 01/31/2024 and left AMA on 02/01/2024. Brought in again early this morning by EMS for shortness of breath and altered mental status. Chest x-ray revealed no acute pulmonary process. Arterial blood gases revealed a PaO2 of 63, pCO2 of greater than 98 and a pH of 7.21 on 100% FiO2 via BiPAP 12 over 6 and now 40% FiO2. White count 11.7. Hemoglobin 12.5. Platelets 346. Sodium 136. Potassium 3.9. Bicarb 46. BUN 14. Creatinine 0.39. Glucose 122. She is seen today in consultation in the emergency department. She is arousable. She remains on BiPAP. She has been initiated on DuoNeb inhalations, Pulmicort and Perforomist inhalations, IV Solu-Medrol. Patient with today on 02/04/2024, patient is off BiPAP, on nasal cannulaAt 3 L/min with O2 sats of 96%, patient seems to be very comfortable, not in any distress, she is on maximal therapy with bronchodilators and steroids.WBC count is 5.7 hemoglobin 11.5 basic metabolic profile is normal renal profile is normal bicarb is 40 Objective - Vital Signs Vital signs: Vital Signs Temp 98.3 F 02/04/24 11:59 Pulse 84 02/04/24 11:59 Resp 24 02/04/24 11:59 BP 132/85 02/04/24 11:59 Pulse Ox 96 02/04/24 11:59 FiO2 35 02/03/24 15:41 Intake & Output 02/03/24 02/04/24 02/04/24 18:59 06:59 18:59 Intake Total 260 240 Balance 260 240 Weight 48.7 kg Intake: IV 20 Invasive Line 1 10 Invasive Line 2 10 Oral 240 240 Other: Voiding Method Toilet # Voids 1 # Bowel Movements 1 - Exam GENERAL EXAM: 53-year-old awake in no distress on 3 L nasal cannula off BiPAP HEAD: Normocephalic. EYES: Normal reaction of pupils, equal size. NOSE: Clear with pink turbinates. THROAT: No erythema or exudates. NECK: No masses, no JVD. CHEST: No chest wall deformity. LUNGS: Equal air entry with bilateral end expiratory wheeze. CVS: S1 and S2 normal with no audible murmur, regular rhythm. ABDOMEN: No hepatosplenomegaly, normal bowel sounds, no guarding or rigidity. SKIN: No rashes CENTRAL NERVOUS SYSTEM: Alert and oriented x 3 no gross focal deficit EXTREMITIES: No clubbing edema or cyanosis - Labs CBC & Chem 7: 02/04/24 06:19 02/04/24 05:04 Labs: Abnormal Lab Results - Last 24 Hours (Table) 02/03/24 02/04/24 02/04/24 Range/Units 20:18 05:04 05:53 RBC (3.80-5.40) m/uL Lymphocytes # (1.0-4.8) k/uL Chloride 92 L (98-107) mmol/L Carbon Dioxide 40 H (22-30) mmol/L BUN 20 H (7-17) mg/dL Creatinine 0.28 L (0.52-1.04) mg/dL Glucose 178 H (74-99) mg/dL POC Glucose (mg/dL) 131 H 179 H (70-110) mg/dL Total Protein 5.6 L (6.3-8.2) g/dL Albumin 3.4 L (3.5-5.0) g/dL 02/04/24 02/04/24 Range/Units 06:19 11:27 RBC 3.65 L (3.80-5.40) m/uL Lymphocytes # 0.4 L (1.0-4.8) k/uL Chloride (98-107) mmol/L Carbon Dioxide (22-30) mmol/L BUN (7-17) mg/dL Creatinine (0.52-1.04) mg/dL Glucose (74-99) mg/dL POC Glucose (mg/dL) 162 H (70-110) mg/dL Total Protein (6.3-8.2) g/dL Albumin (3.5-5.0) g/dL Assessment and Plan Assessment: Impression Acute on chronic hypoxemic/hypercapnic respiratory failure secondary to an ex acerbation of chronic obstructive pulmonary disease with chronic and ongoing tobacco dependence Multiple admissions for the same most recently here 01/31/2024 and left AGAINST MEDICAL ADVICE on 02/01/2024. Eight hospitalizations this year since July 2023 History of ventilator dependent respiratory failure with previous tracheostomy and PEG tube insertion status post decannulation Very severe underlying COPD with an FEV1 22% of predicted Chronic hypoxemic respiratory failure, normally maintained on 2 L/min nasal cannula 21/11 Chronic ongoing tobacco dependence, currently smoking 1/2 pack/day Acquired immunodeficiency syndrome, maintained on Biktarvy, most recent CD4 count 83 History of left upper lobe lung nodule, previously measuring 9 mm in size, being monitored on outpatient basis patient is not a surgical candidate by any means, and if this nodule demonstrates increase in size on outpatient basis may have to be considered for SBRT Recommendation: Continue oxygen and titrate accordingly Use BiPAP as needed Continue updrafts/DuoNeb Continue Solu-Medrol Continue Pulmicort and Perforomist Encourage ambulation Will recommend that she goes to subacute rehab or assigned a legal guardian, patient is unable to take care of herself at home, and she has had multiple and multiple admissions recently long-term prognosis is extremely poor and guarded Time with Patient: Less than 30
[2024-02-04 16:34] LABS: Glucose,Whole Blood 145 mg/dL (70-110)
[2024-02-04 20:40] LABS: Glucose,Whole Blood 208 mg/dL (70-110)
[2024-02-05 06:19] LABS: Glucose,Whole Blood 193 mg/dL (70-110)
[2024-02-05 10:40] VITALS: BP 136/81; RESP 20; TEMP 98.1
[2024-02-05 11:30] LABS: Glucose,Whole Blood 181 mg/dL (70-110)
[2024-02-05 11:39] VITALS: PULSE 92
--- NOTE | 2024-02-05 12:32 | P.PN ---
Subjective Progress Note Date: 02/05/24 Patient is a 53-year-old female with known history of asthma/COPD, history of CVA/TIA, HIV, anxiety/depression/panic disorder and prior history of smoking, hypertension who presents the ER because of shortness of breath. Patient had been admitted multiple times in the past for similar complaints. Patient was in the hospital couple of days ago at which time she was admitted for COPD exacerbation and left AMA. Patient stated that she has been short of breath since the morning. Patient complains of shortness of breath at rest as well as on exertion. Patient stated that she is unable to catch her breath and a hard time talking. Denies any chest pain. There is no complaint of fever or chills. EMS when arrived at her house, she was very short of breath, had to be placed on nonrebreather and she was sent to ER Initial lab work done in the ER showed WBC 11.7, hemoglobin 12.5, platelet 346, sodium 136, potassium 3.9, BUN 14, creatinine 0.39, glucose 122, ALT 44, troponin 0.013, proBNP 245, ABGs pH 7.21, pCO2 98, pO2 63, EKG done in the ER showed heart rate of 117, no ST segment elevation or depression seen, no T-wave inversions seen. Chest x-ray done in the ER no acute pulmonary process Patient admitted to internal medicine service 02/03. Patient seen and examined. Temperature 98, heart rate 93, blood pressure 142/71, currently on 3 L of oxygen. Patient is off BiPAP. Still complaining of shortness of breath on exertion. 02/04. Patient seen and examined. Currently on 3 liters of oxygen. Still gets short of breath on exertion. REVIEW OF SYSTEMS: CONSTITUTIONAL: No fever, no malaise,. CARDIOVASCULAR: No chest pain, no palpitations, no syncope. PULMONARY: As mentioned above GASTROINTESTINAL: No diarrhea, no nausea, no vomiting, no abdominal pain. NEUROLOGICAL: No headaches, no weakness, PHYSICAL EXAMINATION: GENERAL: The patient is alert and oriented x3, not in any acute distress. Ill looking. HEENT: Pupils are round and equally reacting to light. EOMI. No scleral icterus. No conjunctival pallor. Normocephalic, atraumatic. No pharyngeal erythema. No thyromegaly. CARDIOVASCULAR: S1 and S2 present. No murmurs, rubs, or gallops. PULMONARY: Coarse breath sound bilaterally, no crackles, expiratory wheeze audible ABDOMEN: Soft, nontender, nondistended, normoactive bowel sounds. No palpable organomegaly. MUSCULOSKELETAL: No joint swelling or deformity. EXTREMITIES: No cyanosis, clubbing, or pedal edema. NEUROLOGICAL: Gross neurological examination did not reveal any focal deficits. SKIN: No rashes. Assessment and plan Acute on chronic hypoxemic hypercapnic respiratory failure Acute COPD exacerbation Hypertension History of CVA/TIA HIV on antiretroviral therapy. Anxiety/depression/panic disorder Prior history of smoking Monitor vital signs Monitor CBC Monitor CMP Continue telemetry monitoring Continue oxygen supplementation Continue BiPAP as needed Continue breathing treatments continue IV Solu-Medrol Pulmonary following Labs and medication were reviewed.. Continue same treatment. Continue with symptomatic treatment. Resume home medication. Monitor labs and vitals. DVT and GI prophylaxis. Further recommendations as per clinical course of the patient Dictation was produced using [employer] dictation software. please excuse any gr ammatical, word or spelling errors. Objective - Vital Signs Vital signs: Vital Signs Temp 97.8 F 02/05/24 04:42 Pulse 88 02/05/24 08:52 Resp 18 02/05/24 04:42 BP 142/78 02/05/24 04:42 Pulse Ox 99 02/05/24 04:42 FiO2 35 02/03/24 15:41 Intake & Output 02/04/24 02/05/24 02/05/24 18:59 06:59 18:59 Intake Total 476 260 118 Balance 476 260 118 Weight 48.5 kg Intake: IV 20 Invasive Line 2 20 Oral 476 240 118 Other: Voiding Method Toilet # Voids 3 1 - Labs CBC & Chem 7: 02/04/24 06:19 02/04/24 05:04 Labs: Abnormal Lab Results - Last 24 Hours (Table) 02/04/24 02/04/24 02/04/24 Range/Units 11:27 16:32 20:38 POC Glucose (mg/dL) 162 H 145 H 208 H (70-110) mg/dL 02/05/24 Range/Units 06:17 POC Glucose (mg/dL) 193 H (70-110) mg/dL
--- NOTE | 2024-02-05 13:37 | P.PN ---
Subjective Progress Note Date: 02/05/24 Principal diagnosis: Respiratory distress. Patient is a 53-year-old female with past medical history significant for COPD, chronic and ongoing tobacco dependence, ventilator dependent respiratory failure with previous tracheostomy and PEG tube, HIV on Biktarvy. In July, she had a prolonged stay in the intensive care unit, she was intubated and placed on the mechanical ventilator. Eventually required tracheostomy and PEG tube. Subsequently, the patient was decannulated. She has had multiple hospitalizations since then, for acute COPD exacerbation; in fact, she just was admitted on 01/31/2024 and left AMA on 02/01/2024. Brought in again early this morning by EMS for shortness of breath and altered mental status. Chest x-ray revealed no acute pulmonary process. Arterial blood gases revealed a PaO2 of 63, pCO2 of greater than 98 and a pH of 7.21 on 100% FiO2 via BiPAP 12 over 6 and now 40% FiO2. White count 11.7. Hemoglobin 12.5. Platelets 346. Sodium 136. Potassium 3.9. Bicarb 46. BUN 14. Creatinine 0.39. Glucose 122. She is seen today in consultation in the emergency department. She is arousable. She remains on BiPAP. She has been initiated on DuoNeb inhalations, Pulmicort and Perforomist inhalations, IV Solu-Medrol. Patient with today on 02/04/2024, patient is off BiPAP, on nasal cannulaAt 3 L/min with O2 sats of 96%, patient seems to be very comfortable, not in any distress, she is on maximal therapy with bronchodilators and steroids.WBC count is 5.7 hemoglobin 11.5 basic metabolic profile is normal renal profile is normal bicarb is 40 Progress note dated February 05, 2024. 53-year-old female seen today in room 356. The patient has had recent multiple admissions to this hospital, for respiratory distress, and COPD exacerbation. She is currently on 3 L of oxygen by nasal cannula. She is not receiving any IV fluids. She was on BiPAP, with settings of 16/6 and 35%. No new labs today other than a glucose of 181. No chest x-ray today. Objective - Vital Signs Vital signs: Vital Signs Temp 98.1 F 02/05/24 08:00 Pulse 92 02/05/24 11:48 Resp 20 02/05/24 08:00 BP 136/81 02/05/24 08:00 Pulse Ox 100 02/05/24 08:00 FiO2 35 02/03/24 15:41 Intake & Output 02/04/24 02/05/24 02/05/24 18:59 06:59 18:59 Intake Total 476 260 128 Balance 476 260 128 Weight 48.5 kg Intake: IV 20 10 Invasive Line 2 20 10 Oral 476 240 118 Other: Voiding Method Toilet Toilet # Voids 3 1 - Exam No acute distress, oriented 3. Currently on 3 L nasal cannula. HEENT examination is grossly unremarkable. Mucous membranes are moist. No oral lesions. Neck supple. Full range of motion. No adenopathy thyromegaly or neck vein distention. Cardiovascular examination reveals regular rhythm rate. S1-S2 normal. No S3 or S4. No discernible murmur noted. Lungs reveal bilateral expiratory wheezes and rhonchi. No crackles. Breath sounds equal bilaterally. Abdomen soft bowel sounds are heard. No masses or tenderness. Extremities are intact. No cyanosis clubbing or edema. Skin is without rash or lesion. Neurologic examination is brief but nonfocal. - Labs CBC & Chem 7: 02/04/24 06:19 02/04/24 05:04 Labs: Abnormal Lab Results - Last 24 Hours (Table) 02/04/24 02/04/24 02/05/24 Range/Units 16:32 20:38 06:17 POC Glucose (mg/dL) 145 H 208 H 193 H (70-110) mg/dL 02/05/24 Range/Units 11:28 POC Glucose (mg/dL) 181 H (70-110) mg/dL Assessment and Plan Assessment: Acute on chronic hypoxemic and hypercapnic respiratory failure secondary to COPD exacerbation. Ongoing tobacco use with nicotine addiction. Multiple hospital admissions, 8, this year alone, since July 2023. History of ventilator dependent respiratory failure with previous tracheostomy and PEG tube placement, and subsequent decannulation. Severe/stage IV COPD, with an FEV1 that is 22% of predicted. Chronic hypoxemic respiratory failure, maintained on O2, 2 L, . Chronic and ongoing tobacco dependence. Acquired immunodeficiency syndrome. History of left upper lobe pulmonary nodule, currently being monitored as an outpatient. Plan: Plan dated February 05, 2024. The patient is seen today in room 356. The patient continues on appropriate medications. She is on 3 L nasal cannula. This is what she uses at home. BiPAP device is at the bedside. Settings include 16/6 and 35%. The patient is not receiving any IV fluids. She continues on appropriate updrafts, and corticosteroids. Discharge planning underway. Time with Patient: Less than 30
--- NOTE | 2024-02-06 09:13 | P.DS ---
Providers Date of admission: 02/03/24 03:55 Expected date of discharge: 02/05/24 Attending physician: Cheli Zavaleta Consults: 02/03/24 03:50 Consult Physician Urgent Consulting Provider: Cinthya Villegas Consult Reason/Comments: acute bipap dependant resp failure, aecopd Do you want consulting provider notified?: Yes Primary care physician: Francisco Harvey Hospital Course: Discharge diagnoses; Acute on chronic hypoxemic hypercapnic respiratory failure Acute COPD exacerbation Hypertension History of CVA/TIA HIV on antiretroviral therapy. Anxiety/depression/panic disorder Prior history of smoking Hospital course; Patient is a 53-year-old female with known history of asthma/COPD, history of CVA/TIA, HIV, anxiety/depression/panic disorder and prior history of smoking, hypertension who presents the ER because of shortness of breath. Patient had been admitted multiple times in the past for similar complaints. Patient was in the hospital couple of days ago at which time she was admitted for COPD exacerbation and left AMA. Patient stated that she has been short of breath since the morning. Patient complains of shortness of breath at rest as well as on exertion. Patient stated that she is unable to catch her breath and a hard time talking. Denies any chest pain. There is no complaint of fever or chills. EMS when arrived at her house, she was very short of breath, had to be placed on nonrebreather and she was sent to ER Initial lab work done in the ER showed WBC 11.7, hemoglobin 12.5, platelet 346, sodium 136, potassium 3.9, BUN 14, creatinine 0.39, glucose 122, ALT 44, troponin 0.013, proBNP 245, ABGs pH 7.21, pCO2 98, pO2 63, EKG done in the ER showed heart rate of 117, no ST segment elevation or depression seen, no T-wave inversions seen. Chest x-ray done in the ER no acute pulmonary process Patient admitted to internal medicine service 02/03. Patient seen and examined. Temperature 98, heart rate 93, blood pressure 142/71, currently on 3 L of oxygen. Patient is off BiPAP. Still complaining of shortness of breath on exertion. 02/04. Patient seen and examined. Currently on 3 liters of oxygen. Still gets short of breath on exertion. Pulmonology recommended patient to stay in the hospital to get further breathing treatments and monitoring. Patient was not willing to stay in the hospital and left AGAINST MEDICAL ADVICE Dictation was produced using [employer] dictation software. please excuse any grammatical, word or spelling errors. Patient Condition at Discharge: Fair Plan - Discharge Summary Discharge Rx Participant: No New Discharge Prescriptions: No Action Albuterol Sulfate [Albuterol Sulfate Hfa] 2 puff INHALATION RT-Q4H PRN PRN Reason: Shortness Of Breath Ipratropium-Albuterol Nebulize [Duoneb 0.5 mg-3 mg/3 ml Soln] 3 ml INHALATION RT-Q4H PRN PRN Reason: Shortness Of Breath Famotidine [Pepcid] 20 mg PO BID ALPRAZolam [Xanax] 0.5 mg PO BID Ibuprofen [Motrin Ib] 200 - 400 mg PO Q6H PRN PRN Reason: Pain Or Fever > 100.5 Fluticasone Propionate [Flonase Allergy Relief] 1 spray EA NOSTRIL DAILY PRN PRN Reason: Congestion Fluticasone/Umeclidin/Vilanter [Trelegy Ellipta 200-62.5-25] 1 puff INHALATION RT-DAILY amLODIPine [Norvasc] 10 mg PO DIRECTED Nicotine 14Mg/24Hr Patch [Habitrol] 1 patch TRANSDERM DIRECTED Ipratropium-Albuterol Nebulize [Duoneb 0.5 mg-3 mg/3 ml Soln] 3 ml INHALATION RT-QID each Bictegrav/Emtricit/Tenofov Ala [Biktarvy 50-200-25 mg Tablet] 1 tab PO DAILY Ondansetron [Zofran] 4 mg PO BID PRN PRN Reason: Nausea Simethicone [Gas-X] 125 - 250 mg PO ACHS PRN PRN Reason: gas Diurex 2 tab PO Q4H PRN MDD 6 tabs PRN Reason: weight gain/bloating Mirtazapine [Remeron] 15 mg PO HS Losartan [Cozaar] 50 mg PO DIRECTED Budesonide-Formot 160-4.5 Mcg [Symbicort 160-4.5 Mcg Inhaler] 2 puff INHALATION RT-BID #1 each Discharge Medication List Albuterol Sulfate [Albuterol Sulfate Hfa] 2 puff INHALATION RT-Q4H PRN 03/14/22 [History] Bictegrav/Emtricit/Tenofov Ala [Biktarvy 50-200-25 mg Tablet] 1 tab PO DAILY 08/10/23 [History] Ipratropium-Albuterol Nebulize [Duoneb 0.5 mg-3 mg/3 ml Soln] 3 ml INHALATION RT-Q4H PRN 08/10/23 [History] Famotidine [Pepcid] 20 mg PO BID 09/30/23 [History] Ondansetron [Zofran] 4 mg PO BID PRN 11/05/23 [History] ALPRAZolam [Xanax] 0.5 mg PO BID 11/27/23 [History] Diurex 2 tab PO Q4H PRN MDD 6 tabs 11/27/23 [History] Fluticasone Propionate [Flonase Allergy Relief] 1 spray EA NOSTRIL DAILY PRN 11/27/23 [History] Ibuprofen [Motrin Ib] 200 - 400 mg PO Q6H PRN 11/27/23 [History] Simethicone [Gas-X] 125 - 250 mg PO ACHS PRN 11/27/23 [History] Fluticasone/Umeclidin/Vilanter [Trelegy Ellipta 200-62.5-25] 1 puff INHALATION RT-DAILY 01/04/24 [History] Mirtazapine [Remeron] 15 mg PO HS 01/04/24 [History] Budesonide-Formot 160-4.5 Mcg [Symbicort 160-4.5 Mcg Inhaler] 2 puff INHALATION RT-BID #1 each 01/21/24 [Rx] Ipratropium-Albuterol Nebulize [Duoneb 0.5 mg-3 mg/3 ml Soln] 3 ml INHALATION RT-QID each 01/21/24 [Rx] Losartan [Cozaar] 50 mg PO DIRECTED 01/21/24 [History] Nicotine 14Mg/24Hr Patch [Habitrol] 1 patch TRANSDERM DIRECTED 01/21/24 [History] amLODIPine [Norvasc] 10 mg PO DIRECTED 01/21/24 [History] Follow up Appointment(s)/Referral(s): Francisco Harvey [Primary Care Provider] - 1-2 days Discharge Disposition: LEFT AGAINST MEDICAL ADVICE
[2024-02-06] MEDS ORDERED: ACETAMINOPHEN TAB 325 MG TAB PO PRN (09:17)
[2024-02-06] MEDS ORDERED: IPRATROPIUM-ALBUTEROL 3 ML NEB INHALATION PRN (09:17)
[2024-02-06] MEDS ORDERED: ONDANSETRON 4 MG/2 ML VIAL IVP PRN (09:17)
[2024-02-06] MEDS ORDERED: NALOXONE 0.4 MG/ML 1 ML VIAL IVP PRN (09:17)
[2024-02-06] MEDS ORDERED: methylPREDNISolone SOD SUCCI 125 MG/2 ML VIAL IV SCH (12:00)
[2024-02-06] MEDS ORDERED: IPRATROPIUM-ALBUTEROL 3 ML NEB INHALATION SCH (12:00)
[2024-02-06] MEDS ORDERED: BUDESONIDE 0.5 MG/2 ML NEBU INHALATION SCH (20:00)
== END 2024-02-05 14:10 | disposition left against medical advice (07) | DRG 189 ==
LOC: EC 01:16 → 2SICU 03:55 → 3SCARD 08:37
PROVIDERS: ADMIT Hospitalist; ATTEND Hospitalist
PROC: 5A09357 Assistance with Respiratory Ventilation, Less than 24 Consecutive Hours, Continuous Positive Airway Pressure (ICD-10-PCS; principal; 2024-02-03)
DX: J96.21 Acute and chronic respiratory failure with hypoxia (principal); J44.1 Chronic obstructive pulmonary disease with (acute) exacerbation; B20 Human immunodeficiency virus [HIV] disease; J96.22 Acute and chronic respiratory failure with hypercapnia; F32.A Depression, unspecified; F41.0 Panic disorder [episodic paroxysmal anxiety]; F17.210 Nicotine dependence, cigarettes, uncomplicated; R91.1 Solitary pulmonary nodule; I10 Essential (primary) hypertension; Z99.81 Dependence on supplemental oxygen; Z88.0 Allergy status to penicillin; Z79.899 Other long term (current) drug therapy; Z86.73 Personal history of transient ischemic attack (TIA), and cerebral infarction without residual deficits; Z79.51 Long term (current) use of inhaled steroids
CPT/HCPCS: 36415; 36600; 71045; 80053; 82805; 83605; 83880; 84484; 85025; 85610; 85730; 93005; 94640; 94660; 96365; 96375; 99291

== ENCOUNTER 2024-02-06 04:52 | Observation (INO) | payer MEDICARE, OTHER ==
[2024-02-06 05:01] VITALS: TEMP 98.6
[2024-02-06] MEDS: ALBUTEROL NEBULIZED 2.5 MG/3 ML INHALATION STA ×2 (05:17→08:29)
[2024-02-06] MEDS: IPRATROPIUM 0.5 MG/2.5 ML NEBU INHALATION STA ×2 (05:18→08:30)
--- NOTE | 2024-02-06 05:27 | ED ---
General Adult HPI - General Chief complaint: Shortness of Breath Stated complaint: SOB Time Seen by Provider: 02/06/24 05:05 Source: patient Mode of arrival: EMS - History of Present Illness Initial comments: Dictation was produced using [employer] dictation software. please excuse any grammatical, word or spelling errors. Chief Complaint: 53-year-old female with extensive history of COPD presents to the emergency department with acute dyspnea History of Present Illness: Patient is a 53-year-old female with significant COPD. Patient was recently hospitalized for COPD. According to EMS provides history present illness patient be severely dyspneic. She was given prednisone along with Solu-Medrol and a DuoNeb. Patient unable to provide detailed history at this time due to respiratory distress. Unable to obtain secondary to medical status - Related Data Home Medications Medication Instructions Recorded Confirmed Albuterol Sulfate [Albuterol 2 puff INHALATION RT-Q4H PRN 03/14/22 02/03/24 Sulfate Hfa] Bictegrav/Emtricit/Tenofov Ala 1 tab PO DAILY 08/10/23 02/03/24 [Biktarvy 50-200-25 mg Tablet] Ipratropium-Albuterol Nebulize 3 ml INHALATION RT-Q4H PRN 08/10/23 02/03/24 [Duoneb 0.5 mg-3 mg/3 ml Soln] Famotidine [Pepcid] 20 mg PO BID 09/30/23 02/03/24 Ondansetron [Zofran] 4 mg PO BID PRN 11/05/23 02/03/24 ALPRAZolam [Xanax] 0.5 mg PO BID 11/27/23 02/03/24 Diurex 2 tab PO Q4H PRN MDD 6 tabs 11/27/23 02/03/24 Fluticasone Propionate [Flonase 1 spray EA NOSTRIL DAILY PRN 11/27/23 02/03/24 Allergy Relief] Ibuprofen [Motrin Ib] 200 - 400 mg PO Q6H PRN 11/27/23 02/03/24 Simethicone [Gas-X] 125 - 250 mg PO ACHS PRN 11/27/23 02/03/24 Fluticasone/Umeclidin/Vilanter 1 puff INHALATION RT-DAILY 01/04/24 02/03/24 [Trelegy Ellipta 200-62.5-25] Mirtazapine [Remeron] 15 mg PO HS 01/04/24 02/03/24 Losartan [Cozaar] 50 mg PO DIRECTED 01/21/24 02/03/24 Nicotine 14Mg/24Hr Patch [Habitrol] 1 patch TRANSDERM DIRECTED 01/21/24 02/03/24 amLODIPine [Norvasc] 10 mg PO DIRECTED 01/21/24 02/03/24 Previous Rx's Medication Instructions Recorded Budesonide-Formot 160-4.5 Mcg 2 puff INHALATION RT-BID #1 each 01/21/24 [Symbicort 160-4.5 Mcg Inhaler] Ipratropium-Albuterol Nebulize 3 ml INHALATION RT-QID each 01/21/24 [Duoneb 0.5 mg-3 mg/3 ml Soln] Allergies Allergy/AdvReac Type Severity Reaction Status Date / Time Penicillins Allergy Anaphylaxis Verified 02/06/24 04:55 Milk Containing Products AdvReac Nausea & Verified 02/06/24 04:55 (Dairy) Vomiting & Diarrhea Review of Systems ROS Statement: Those systems with pertinent positive or pertinent negative responses have been documented in the HPI. ROS Other: All systems not noted in ROS Statement are negative. Past Medical History Past Medical History: Asthma, Blood Disorder, COPD, CVA/TIA Additional Past Medical History / Comment(s): HIV History of Any Multi-Drug Resistant Organisms: None Reported Past Surgical History: No Surgical Hx Reported Additional Past Surgical History / Comment(s): peg and tracheostomy reversal 2023 Past Anesthesia/Blood Transfusion Reactions: No Reported Reaction Past Psychological History: Anxiety, Depression, Panic Disorder Smoking Status: Former smoker Past Alcohol Use History: None Reported, Occasional Past Drug Use History: None Reported - Past Family History Mother History Unknown: Yes General Exam - General Exam Comments Initial Comments: PHYSICAL EXAM: General Impression: Alert, dyspneic HEENT: Normocephalic atraumatic, extra-ocular movements intact, pupils equal and reactive to light bilaterally, mucous membranes moist. Cardiovascular: Heart regular rate and rhythm Chest: Air exchange, retractions Abdomen: abdomen soft, non-tender, non-distended, no organomegaly Musculoskeletal: Pulses present and equal in all extremities, no peripheral edema Motor: no focal deficits noted Neurological: CN II-XII grossly intact, no focal motor or sensory deficits noted Skin: Intact with no visualized rashes Psych: Normal affect and mood Course Vital Signs 02/06/24 02/06/24 02/06/24 04:56 05:04 05:18 Temperature 98.6 F Pulse Rate 116 H 121 H Respiratory 32 H 36 H Rate Blood Pressure 176/113 O2 Sat by Pulse 96 Oximetry Fraction of 35 Inspired Oxygen (FIO2) 02/06/24 02/06/24 02/06/24 05:42 06:09 06:19 Temperature Pulse Rate 131 H 138 H 130 H Respiratory 24 38 H Rate Blood Pressure 176/113 135/90 O2 Sat by Pulse 99 98 Oximetry Fraction of Inspired Oxygen (FIO2) 02/06/24 06:45 Temperature Pulse Rate 121 H Respiratory 22 Rate Blood Pressure 136/88 O2 Sat by Pulse 97 Oximetry Fraction of Inspired Oxygen (FIO2) EKG Findings - EKG Comments: EKG Findings:: My EKG interpretation: Ventricular rate 130, sinus tachycardia, period of 120, QRS 67, QTc 336. Interpretation limited due to significant artifact.. No DC prolongation, no QTC prolongation, no ST or T-wave changes note d. Medical Decision Making - Medical Decision Making Was pt. sent in by a medical professional or institution (, PA, FRUIT COORDINATOR, urgent care, hospital, or longterm...) When possible be specific @ -No Did you speak to anyone other than the patient for history (EMS, parent, family, police, friend...)? What history was obtained from this source @ -Some history obtained from EMS as described above Did you review nursing and triage notes (agree or disagree)? Why? @ -I reviewed and agree with nursing and triage notes Were old charts reviewed (outside hosp., previous admission, EMS record, old EKG, old radiological studies, urgent care reports/EKG's, longterm records)? Report findings @ -No old charts were reviewed Differential Diagnosis (chest pain, altered mental status, abdominal pain women, abdominal pain men, vaginal bleeding, musculoskeletal, weakness, fever, dyspnea, syncope, headache, dizziness, GI bleed, back pain, seizure, CVA, palpatations, mental health)? @ -Differential Dyspnea: Coronary syndrome, arrhythmia, tamponade, asthma, COPD, pulmonary embolism, pneumonia, pneumothorax, pulmonary effusion, anaphylaxis, diabetic ketoacidosis, flailed chest, pulmonary contusion, diaphragmatic rupture, anemia, neuromuscula r, this is not meant to be an all-inclusive list. EKG interpreted by me (3pts min.). @ -See above X-rays interpreted by me (1pt min.). @ -Chest x-ray shows lung hyperinflation CT interpreted by me (1pt min.). @ -None done U/S interpreted by me (1pt. min.). @ -None done What testing was considered but not performed or refused? (CT, X-rays, U/S, labs)? Why? @ -None What meds were considered but not given or refused? Why? @ -None Was smoking cessation discussed for >3mins.? @ -No Were there social determinants of health that impacted care today? How? (Homelessness, low income, unemployed, alcoholism, drug addiction, transportation, low edu. Level, literacy, decrease access to med. care, prison, rehab)? @ -No Was there de-escalation of care discussed even if they declined (Discuss DNR or withdrawal of care, Hospice)? DNR status @ -No What co-morbidities impacted this encounter? (DM, HTN, Smoking, COPD, CAD, Cancer, CVA, ARF, Chemo, Hep., AIDS, mental health diagnosis, sleep apnea, morbid obesity)? @ -COPD Was patient admitted / discharged? Hospital course, mention meds given and route, prescriptions, significant lab abnormalities, going to OR and other pertinent info. @ -53-year-old female presents emergency department for severe COPD exacerbation. Vital signs upon arrival shows tachypnea tachycardia. Patient in acute respiratory distress. Laboratory evaluation obtained. CBC is unremarkable. VBG shows pH 7.4 pCO2 of 72 and a bicarb of 45. ABG looks similar. Metabolic panel within acceptable limits. X-ray shows no pneumonia or acute processes. Patient given breathing treatment steroids. Case discussed with pulmonology who will evaluate the patient and determine need for ICU admission. Reevaluated bedside 7:00 AM. She is much more stable appearing. She states that she feels better Did you discuss the management of the patient with other professionals (professionals i.e. , PA, FRUIT COORDINATOR, lab, RT, psych nurse, social sciences research scientist, commercial credit reviewer, teacher, legal compliance officer, porter sample case)? Give summary @ -Discussed with life sciences director who is aware patient will evaluate patient at the bedside Was critical care preformed (if so, how long)? @ -Yes, 33 minutes for respiratory failure Undiagnosed new problem with uncertain prognosis? @ -No Drug Therapy requiring intensive monitoring for toxicity (Heparin, Nitro, Insulin, Cardizem)? @ -No Were any procedures done? @ -No Diagnosis/symptom? Acute, or Chronic, or Acute on Chronic? Uncomplicated (without systemic symptoms) or Complicated (systemic symptoms)? @ -COPD exacerbation Side effects of treatment? @ -No Exacerbation, Progression, or Severe Exacerbation? @ -No Poses a threat to life or bodily function? How? (Chest pain, [place], [place], pneumonia, PE, COPD, DKA, ARF, appy, cholecystitis, CVA, Diverticulitis, Homicidal, Suicidal, threat to staff... and all critical care pts) @ -yes - Lab Data Result diagrams: 02/06/24 06:22 02/06/24 05:35 Lab Results 02/06/24 02/06/24 02/06/24 Range/Units 05:35 05:35 05:35 WBC (3.8-10.6) k/uL RBC (3.80-5.40) m/uL Hgb (11.4-16.0) gm/dL Hct (34.0-46.0) % MCV (80.0-100.0) fL MCH (25.0-35.0) pg MCHC (31.0-37.0) g/dL RDW (11.5-15.5) % Plt Count (150-450) k/uL MPV Neutrophils % % Lymphocytes % % Monocytes % % Eosinophils % % Basophils % % Neutrophils # (1.3-7.7) k/uL Lymphocytes # (1.0-4.8) k/uL Monocytes # (0-1.0) k/uL Eosinophils # (0-0.7) k/uL Basophils # (0-0.2) k/uL Sample Site ABG pH (7.35-7.45) ABG pCO2 (35-45) mmHg ABG pO2 (83-108) mmHg ABG HCO3 (21-25) mmol/L ABG Total CO2 (19-24) mmol/L ABG O2 Saturation (94-97) % ABG Base Excess mmol/L Milton Test VBG pH 7.40 (7.31-7.41) VBG pCO2 72 H* (37-51) mmHg VBG HCO3 45 H (24-28) mmol/L Hemoglobin (11.4-16.0) gm/dL FiO2 % Sodium 138 (137-145) mmol/L Potassium 4.4 (3.5-5.1) mmol/L Chloride 90 L (98-107) mmol/L Carbon Dioxide 46 H* (22-30) mmol/L Anion Gap 2 mmol/L BUN 25 H (7-17) mg/dL Creatinine 0.41 L (0.52-1.04) mg/dL Est GFR (CKD-EPI)AfAm >90 (>60 ml/min/1.73 sqM) Est GFR (CKD-EPI)NonAf >90 (>60 ml/min/1.73 sqM) Glucose 120 H (74-99) mg/dL Plasma Lactic Acid Jarad 0.8 (0.7-2.0) mmol/L Calcium 8.5 (8.4-10.2) mg/dL Magnesium 2.0 (1.6-2.3) mg/dL Total Bilirubin 0.6 (0.2-1.3) mg/dL AST 53 H (14-36) U/L ALT 57 H (4-34) U/L Alkaline Phosphatase 66 (38-126) U/L Total Protein 6.4 (6.3-8.2) g/dL Albumin 4.0 (3.5-5.0) g/dL 02/06/24 02/06/24 Range/Units 06:22 06:34 WBC 11.1 H (3.8-10.6) k/uL RBC 4.10 (3.80-5.40) m/uL Hgb 12.8 (11.4-16.0) gm/dL Hct 39.8 (34.0-46.0) % MCV 97.1 (80.0-100.0) fL MCH 31.2 (25.0-35.0) pg MCHC 32.1 (31.0-37.0) g/dL RDW 15.2 (11.5-15.5) % Plt Count 362 (150-450) k/uL MPV 6.8 Neutrophils % 79 % Lymphocytes % 11 % Monocytes % 9 % Eosinophils % 0 % Basophils % 1 % Neutrophils # 8.7 H (1.3-7.7) k/uL Lymphocytes # 1.2 (1.0-4.8) k/uL Monocytes # 0.9 (0-1.0) k/uL Eosinophils # 0.0 (0-0.7) k/uL Basophils # 0.1 (0-0.2) k/uL Sample Site [facility] ABG pH 7.35 (7.35-7.45) ABG pCO2 84 H* (35-45) mmHg ABG pO2 82 L (83-108) mmHg ABG HCO3 46 H* (21-25) mmol/L ABG Total CO2 48 H (19-24) mmol/L ABG O2 Saturation 96.6 (94-97) % ABG Base Excess 16.1 mmol/L Milton Test Yes VBG pH (7.31-7.41) VBG pCO2 (37-51) mmHg VBG HCO3 (24-28) mmol/L Hemoglobin 12.2 (11.4-16.0) gm/dL FiO2 35 % Sodium (137-145) mmol/L Potassium (3.5-5.1) mmol/L Chloride (98-107) mmol/L Carbon Dioxide (22-30) mmol/L Anion Gap mmol/L BUN (7-17) mg/dL Creatinine (0.52-1.04) mg/dL Est GFR (CKD-EPI)AfAm (>60 ml/min/1.73 sqM) Est GFR (CKD-EPI)NonAf (>60 ml/min/1.73 sqM) Glucose (74-99) mg/dL Plasma Lactic Acid Jarad (0.7-2.0) mmol/L Calcium (8.4-10.2) mg/dL Magnesium (1.6-2.3) mg/dL Total Bilirubin (0.2-1.3) mg/dL AST (14-36) U/L ALT (4-34) U/L Alkaline Phosphatase (38-126) U/L Total Protein (6.3-8.2) g/dL Albumin (3.5-5.0) g/dL Disposition Clinical Impression: COPD exacerbation Disposition: ADMITTED IP TO THIS [facility] Condition: Critical Referrals: Francisco Harvey [Primary Care Provider] - 1-2 days Decision Time: 07:07
[2024-02-06] MEDS: DEXAMETHASONE SOD PHOSPHATE 10 MG/ML 1 ML VIAL IV STA (05:40)
[2024-02-06 05:49] LABS: VBG PH 7.4 (7.31-7.41)
[2024-02-06 06:12] LABS: ALT 57 U/L (4-34); AST 53 U/L (14-36); African American GFR (CKD) >90 (>60 ml/min/1.73 sqM); Alkaline Phosphatase 66 U/L (38-126); Blood Urea Nitrogen 25 mg/dL (7-17); Calcium 8.5 mg/dL (8.4-10.2); Chloride 90 mmol/L (98-107); Glucose 120 mg/dL (74-99); Non-African American GFR(CKD) >90 (>60 ml/min/1.73 sqM); Potassium 4.4 mmol/L (3.5-5.1); Sodium 138 mmol/L (137-145); Total Bilirubin 0.6 mg/dL (0.2-1.3); Total Protein 6.4 g/dL (6.3-8.2)
[2024-02-06 06:19] LABS: Anion Gap 2 mmol/L
[2024-02-06 06:25] LABS: Carbon Dioxide 46 mmol/L (22-30)
[2024-02-06 06:37] LABS: Allen Test Performed? Yes
[2024-02-06] MEDS: MAGNESIUM SULFATE-D5W PMX 1 GM in DEXTROSE/WATER 1 100ML.BAG IVPB SCH (06:43)
[2024-02-06 06:45] LABS: Basophils # (A) 0.1 k/uL (0-0.2); Basophils % (A) 1 %; Eosinophils % (A) 0 %; HCT 39.8 % (34.0-46.0); HGB 12.8 gm/dL (11.4-16.0); Lymphocytes # (A) 1.2 k/uL (1.0-4.8); Lymphocytes % (A) 11 %; MCH 31.2 pg (25.0-35.0); MCHC 32.1 g/dL (31.0-37.0); MCV 97.1 fL (80.0-100.0); Mean Platelet Volume 6.8; Monocytes # (A) 0.9 k/uL (0-1.0); Monocytes % (A) 9 %; Neutrophils # (A) 8.7 k/uL (1.3-7.7); Neutrophils % (A) 79 %; Platelet Count 362 k/uL (150-450); RDW 15.2 % (11.5-15.5); WBC 11.1 k/uL (3.8-10.6)
[2024-02-06 06:46] LABS: ABG Base Excess 16.1 mmol/L; ABG Oxygen Saturation 96.6 % (94-97); ABG PH 7.35 (7.35-7.45); ABG PO2 82 mmHg (83-108); ABG TCO2 48 mmol/L (19-24)
[2024-02-06 06:50] LABS: ABG HCO3 46 mmol/L (21-25); ABG PCO2 84 mmHg (35-45)
[2024-02-06] MEDS ORDERED: HYDROcodone/APAP 5-325MG 1 EACH TAB PO PRN (07:03)
[2024-02-06] MEDS ORDERED: NALOXONE 0.4 MG/ML 1 ML VIAL IVP PRN ×2 (07:03→09:45)
[2024-02-06] MEDS ORDERED: ACETAMINOPHEN TAB 325 MG TAB PO PRN ×2 (07:03→09:47)
--- NOTE | 2024-02-06 08:27 | XR ---
EXAMINATION TYPE: XR chest 1V portable DATE OF EXAM: 02/06/2024 Comparison: 02/03/2024 Clinical History: 53 year-old female shortness of breath, dyspnea Findings: Heart normal size. Slight leftward patient rotation. Differential density overlying the right hemitho rax likely due to the patient rotation. Relative upper lung lucency may reflect underlying emphysema. No anthony consolidation or pleural effusion. Impression: Portable exam further limited by patient rotation. There may be underlying emphysema. Otherwise, no d efinite acute process. [facility], , 02/06/2024 8:25 AM
[2024-02-06] MEDS: IPRATROPIUM-ALBUTEROL 3 ML NEB INHALATION SCH (08:30)
[2024-02-06] MEDS: AZITHROMYCIN 500 MG TAB PO SCH (08:47)
[2024-02-06] MEDS: predniSONE 20 MG TAB PO SCH (08:48)
[2024-02-06 08:51] VITALS: BP 104/81; RESP 18
[2024-02-06] MEDS ORDERED: ONDANSETRON 4 MG/2 ML VIAL IVP PRN (09:48)
[2024-02-06] MEDS ORDERED: IPRATROPIUM-ALBUTEROL 3 ML NEB INHALATION PRN (09:49)
[2024-02-06] MEDS ORDERED: IPRATROPIUM-ALBUTEROL 3 ML NEB INHALATION SCH (12:00)
[2024-02-06 12:13] VITALS: PULSE 102
--- NOTE | 2024-02-06 12:19 | P.HPIM ---
History of Present Illness H&P Date: 02/06/24 History of present illness;Patient is a 53-year-old female with known history of asthma/COPD, history of CVA/TIA, HIV, anxiety/depression/panic disorder and prior history of smoking, hypertension who presents the ER because of shortness of breath. Patient was admitted to the hospital over the last few days with similar complaints but patient left AGAINST MEDICAL ADVICE as she stated that she wanted to take care of her dog. Since going back home. Patient started to have worsening shortness of breath. Shortness of breath is present at rest and on exertion. Denies any chest pain. There is no complaint of fever or chills. Denies any nausea or vomiting. There is no current orthopnea or PND. EMS was called and patient was brought to the ER. Patient had to be placed on BiPAP.Initial lab work done in the ER showed WBC 11.1, hemoglobin 12.8, platelet count 362, sodium 138, potassium 4.4, BUN 25, carbon psyched 46, anion gap 2, creatinine 0.41, EKG done in the ER showed heart rate of 130, no ST segment elevation or depression seen, no T-wave inversions seen. Chest x-ray done in the ER showed underlying emphysema, no definite acute process Patient admitted to internal medicine service REVIEW OF SYSTEMS: CONSTITUTIONAL: No fever, no malaise, no fatigue. HEENT: No recent visual problems or hearing problems. Denied any sore throat. CARDIOVASCULAR: As mentioned above PULMONARY: As mentioned above GASTROINTESTINAL: No diarrhea, no nausea, no vomiting, no abdominal pain. NEUROLOGICAL: No headaches, no weakness, no numbness. HEMATOLOGICAL: Denies any bleeding or petechiae. GENITOURINARY: Denies any burning micturition, frequency, or urgency. MUSCULOSKELETAL/RHEUMATOLOGICAL: Denies any joint pain, swelling, or any muscle pain. ENDOCRINE: Denies any polyuria or polydipsia. The rest of the 14-point review of systems is negative. PHYSICAL EXAMINATION: GENERAL: The patient is alert and oriented x3, chronically ill looking HEENT: Pupils are round and equally reacting to light. EOMI. No scleral icterus. No conjunctival pallor. Normocephalic, atraumatic. No pharyngeal erythema. No thyromegaly. CARDIOVASCULAR: S1 and S2 present. No murmurs, rubs, or gallops. PULMONARY: Tachypneic, coarse breath sound bilaterally, expiratory wheeze audible ABDOMEN: Soft, nontender, nondistended, normoactive bowel sounds. No palpable organomegaly. MUSCULOSKELETAL: No joint swelling or deformity. EXTREMITIES: No cyanosis, clubbing, or pedal edema. NEUROLOGICAL: Gross neurological examination did not reveal any focal deficits. SKIN: No rashes. Assessment and plan Acute on chronic hypoxemic hypercapnic respiratory failure Acute COPD exacerbation Hypertension History of CVA/TIA HIV on antiretroviral therapy. Anxiety/depression/panic disorder Prior history of smoking Monitor vital signs Monitor CBC Monitor CMP Continue telemetry monitoring Ordered oxygen supplementation Ordered BiPAP Ordered serial ABGs Ordered breathing treatments Start azithromycin Started prednisone Consulted pulmonary Labs and medication were reviewed.. Continue same treatment. Continue with symptomatic treatment. Resume home medication. Monitor labs and vitals. DVT and GI prophylaxis. Further recommendations as per clinical course of the patient Dictation was produced using [employer] dictation software. please excuse any grammatical, word or spelling errors. Past Medical History Past Medical History: Asthma, Blood Disorder, COPD, CVA/TIA Additional Past Medical History / Comment(s): HIV History of Any Multi-Drug Resistant Organisms: None Reported Past Surgical History: No Surgical Hx Reported Additional Past Surgical History / Comment(s): peg and tracheostomy reversal 2023 Past Anesthesia/Blood Transfusion Reactions: No Reported Reaction Past Psychological History: Anxiety, Depression, Panic Disorder Smoking Status: Former smoker Past Alcohol Use History: None Reported, Occasional Past Drug Use History: None Reported - Past Family History Mother History Unknown: Yes Medications and Allergies Home Medications Medication Instructions Recorded Confirmed Type Albuterol Sulfate [Albuterol 2 puff INHALATION RT-Q4H PRN 03/14/22 02/06/24 History Sulfate Hfa] Bictegrav/Emtricit/Tenofov Ala 1 tab PO DAILY 08/10/23 02/06/24 History [Biktarvy 50-200-25 mg Tablet] Ipratropium-Albuterol Nebulize 3 ml INHALATION RT-Q4H PRN 08/10/23 02/06/24 History [Duoneb 0.5 mg-3 mg/3 ml Soln] Famotidine [Pepcid] 20 mg PO BID 09/30/23 02/06/24 History Ondansetron [Zofran] 4 mg PO BID PRN 11/05/23 02/06/24 History ALPRAZolam [Xanax] 0.5 mg PO BID 11/27/23 02/06/24 History Diurex 2 tab PO Q4H PRN MDD 6 tabs 11/27/23 02/06/24 History Fluticasone Propionate [Flonase 1 spray EA NOSTRIL DAILY PRN 11/27/23 02/06/24 History Allergy Relief] Ibuprofen [Motrin Ib] 200 - 400 mg PO Q6H PRN 11/27/23 02/06/24 History Simethicone [Gas-X] 125 - 250 mg PO ACHS PRN 11/27/23 02/06/24 History Fluticasone/Umeclidin/Vilanter 1 puff INHALATION RT-DAILY 01/04/24 02/06/24 History [Trelegy Ellipta 200-62.5-25] Mirtazapine [Remeron] 15 mg PO HS 01/04/24 02/06/24 History Budesonide-Formot 160-4.5 Mcg 2 puff INHALATION RT-BID #1 each 01/21/24 02/06/24 Rx [Symbicort 160-4.5 Mcg Inhaler] Ipratropium-Albuterol Nebulize 3 ml INHALATION RT-QID each 01/21/24 02/06/24 Rx [Duoneb 0.5 mg-3 mg/3 ml Soln] Losartan [Cozaar] 50 mg PO DIRECTED 01/21/24 02/06/24 History Nicotine 14Mg/24Hr Patch [Habitrol] 1 patch TRANSDERM DIRECTED 01/21/24 02/06/24 History amLODIPine [Norvasc] 10 mg PO DIRECTED 01/21/24 02/06/24 History Allergies Allergy/AdvReac Type Severity Reaction Status Date / Time Penicillins Allergy Anaphylaxis Verified 02/06/24 07:44 Milk Containing Products AdvReac Nausea & Verified 02/06/24 07:44 (Dairy) Vomiting & Diarrhea Physical Exam Vitals: Vital Signs Temp Pulse Resp BP Pulse Ox FiO2 02/06/24 08:48 113 H 18 104/81 96 02/06/24 08:32 108 H 99 35 02/06/24 08:31 35 02/06/24 06:45 121 H 22 136/88 97 02/06/24 06:19 130 H 38 H 135/90 98 02/06/24 06:09 138 H 02/06/24 05:42 131 H 24 176/113 99 02/06/24 05:18 121 H 35 02/06/24 05:04 36 H 02/06/24 04:56 98.6 F 116 H 32 H 176/113 96 Intake and Output 02/05/24 02/06/24 02/06/24 22:59 06:59 14:59 Other: Weight 54.431 kg Results CBC & Chem 7: 02/06/24 06:22 02/06/24 05:35 Labs: Abnormal Lab Results - Last 24 Hours (Table) 02/06/24 02/06/24 02/06/24 Range/Units 05:35 05:35 06:22 WBC 11.1 H (3.8-10.6) k/uL Neutrophils # 8.7 H (1.3-7.7) k/uL ABG pCO2 (35-45) mmHg ABG pO2 (83-108) mmHg ABG HCO3 (21-25) mmol/L ABG Total CO2 (19-24) mmol/L VBG pCO2 72 H* (37-51) mmHg VBG HCO3 45 H (24-28) mmol/L Chloride 90 L (98-107) mmol/L Carbon Dioxide 46 H* (22-30) mmol/L BUN 25 H (7-17) mg/dL Creatinine 0.41 L (0.52-1.04) mg/dL Glucose 120 H (74-99) mg/dL AST 53 H (14-36) U/L ALT 57 H (4-34) U/L 02/06/24 Range/Units 06:34 WBC (3.8-10.6) k/uL Neutrophils # (1.3-7.7) k/uL ABG pCO2 84 H* (35-45) mmHg ABG pO2 82 L (83-108) mmHg ABG HCO3 46 H* (21-25) mmol/L ABG Total CO2 48 H (19-24) mmol/L VBG pCO2 (37-51) mmHg VBG HCO3 (24-28) mmol/L Chloride (98-107) mmol/L Carbon Dioxide (22-30) mmol/L BUN (7-17) mg/dL Creatinine (0.52-1.04) mg/dL Glucose (74-99) mg/dL AST (14-36) U/L ALT (4-34) U/L
[2024-02-06] MEDS: methylPREDNISolone SOD SUCCI 125 MG/2 ML VIAL IV SCH (13:02)
--- NOTE | 2024-02-06 14:18 | P.CNPUL ---
History of Present Illness Consult date: 02/06/24 Requesting physician: Yamil Mendes Reason for consult: dyspnea, COPD Chief complaint: Shortness of breath History of present illness: This is a 53-year-old female with past medical history significant for COPD, chronic and ongoing tobacco dependence, ventilator dependent respiratory failure with previous tracheostomy and PEG tube, HIV on Biktarvy. In July, she had a prolonged stay in the intensive care unit, she was intubated and placed on the mechanical ventilator. Eventually required tracheostomy and PEG tube. Subsequently, the patient was decannulated. She has had multiple hospital izations since then, for acute COPD exacerbation; in fact, she just was admitted on 02/03/2024 and left AMA on 02/05/2024. Brought in again early this morning by EMS for shortness of breath . Chest x-ray revealed no acute pulmonary process. Arterial blood gas 11.1. Hemoglobin 12.8. Platelets 362. Sodium 138. Potassium 4.4. Bicarb 46. BUN 25. Creatinine 0.41. Glucose 120. She is seen today in consultation in the emergency department. She is currently sitting up on a stretcher. Awake and alert in no acute distress. She is currently on BiPAP 16/6 and 35% FiO2 with O2 saturations in the 90s. She has been initiated on DuoNeb and elations, Symbicort, prednisone. Empiric antibiotics in the form of azithromycin. Procalcitonin pending. Review of Systems REVIEW OF SYSTEMS: CONSTITUTIONAL: Denies any recent significant weight loss or weight gain. EYES: Denies change in vision. EARS, NOSE, MOUTH, THROAT: Denies headaches, denies sore throat. CARDIOVASCULAR: Denies chest pain, palpitations or syncopal episodes. RESPIRATORY: Positive for shortness of breath, cough, congestion no hemoptysis. GASTROINTESTINAL: Denies change in appetite, denies abdominal pain GENITOURINARY: Denies hematuria, denies infections. MUSKULOSKELETAL: Denies pain, denies swelling. INTEGUMENTARY: Denies rash, denies eczema. NEUROLOGICAL: Denies recent memory loss, no recent seizure activity. PSYCHIATRIC: Denies anxiety, denies depression. HEMATOLOGIC/LYMPHATIC: Denies anemia, denies enlarged lymph nodes. Past Medical History Past Medical History: Asthma, Blood Disorder, COPD, CVA/TIA Additional Past Medical History / Comment(s): HIV History of Any Multi-Drug Resistant Organisms: None Reported Past Surgical History: No Surgical Hx Reported Additional Past Surgical History / Comment(s): peg and tracheostomy reversal 2023 Past Anesthesia/Blood Transfusion Reactions: No Reported Reaction Past Psychological History: Anxiety, Depression, Panic Disorder Smoking Status: Former smoker Past Alcohol Use History: None Reported, Occasional Past Drug Use History: None Reported - Past Family History Mother History Unknown: Yes Medications and Allergies Home Medications Medication Instructions Recorded Confirmed Type Albuterol Sulfate [Albuterol 2 puff INHALATION RT-Q4H PRN 03/14/22 02/06/24 History Sulfate Hfa] Bictegrav/Emtricit/Tenofov Ala 1 tab PO DAILY 08/10/23 02/06/24 History [Biktarvy 50-200-25 mg Tablet] Ipratropium-Albuterol Nebulize 3 ml INHALATION RT-Q4H PRN 08/10/23 02/06/24 History [Duoneb 0.5 mg-3 mg/3 ml Soln] Famotidine [Pepcid] 20 mg PO BID 09/30/23 02/06/24 History Ondansetron [Zofran] 4 mg PO BID PRN 11/05/23 02/06/24 History ALPRAZolam [Xanax] 0.5 mg PO BID 11/27/23 02/06/24 History Diurex 2 tab PO Q4H PRN MDD 6 tabs 11/27/23 02/06/24 History Fluticasone Propionate [Flonase 1 spray EA NOSTRIL DAILY PRN 11/27/23 02/06/24 History Allergy Relief] Ibuprofen [Motrin Ib] 200 - 400 mg PO Q6H PRN 11/27/23 02/06/24 History Simethicone [Gas-X] 125 - 250 mg PO ACHS PRN 11/27/23 02/06/24 History Fluticasone/Umeclidin/Vilanter 1 puff INHALATION RT-DAILY 01/04/24 02/06/24 History [Trelegy Ellipta 200-62.5-25] Mirtazapine [Remeron] 15 mg PO HS 01/04/24 02/06/24 History Budesonide-Formot 160-4.5 Mcg 2 puff INHALATION RT-BID #1 each 01/21/24 02/06/24 Rx [Symbicort 160-4.5 Mcg Inhaler] Ipratropium-Albuterol Nebulize 3 ml INHALATION RT-QID each 01/21/24 02/06/24 Rx [Duoneb 0.5 mg-3 mg/3 ml Soln] Losartan [Cozaar] 50 mg PO DIRECTED 01/21/24 02/06/24 History Nicotine 14Mg/24Hr Patch [Habitrol] 1 patch TRANSDERM DIRECTED 01/21/24 02/06/24 History amLODIPine [Norvasc] 10 mg PO DIRECTED 01/21/24 02/06/24 History Allergies Allergy/AdvReac Type Severity Reaction Status Date / Time Penicillins Allergy Anaphylaxis Verified 02/06/24 07:44 Milk Containing Products AdvReac Nausea & Verified 02/06/24 07:44 (Dairy) Vomiting & Diarrhea Physical Exam Vitals: Vital Signs Temp Pulse Resp BP Pulse Ox FiO2 02/06/24 12:13 102 H 02/06/24 12:05 99 02/06/24 11:59 35 02/06/24 08:48 113 H 18 104/81 96 02/06/24 08:32 108 H 99 35 02/06/24 08:31 35 02/06/24 06:45 121 H 22 136/88 97 02/06/24 06:19 130 H 38 H 135/90 98 02/06/24 06:09 138 H 02/06/24 05:42 131 H 24 176/113 99 02/06/24 05:18 121 H 35 02/06/24 05:04 36 H 02/06/24 04:56 98.6 F 116 H 32 H 176/113 96 Intake and Output 02/05/24 02/06/24 02/06/24 22:59 06:59 14:59 Other: Weight 54.431 kg GENERAL EXAM: Alert, thin, disheveled 53-year-old female, on BiPAP, fairly comfortable in no apparent distress. HEAD: Normocephalic. EYES: Normal reaction of pupils, equal size. NOSE: Clear with pink turbinates. THROAT: No erythema or exudates. NECK: No masses, no JVD. CHEST: No chest wall deformity. LUNGS: Equal air entry with bilateral scattered rhonchi. CVS: S1 and S2 normal with no audible murmur, regular rhythm. ABDOMEN: No hepatosplenomegaly, normal bowel sounds, no guarding or rigidity. SPINE: No scoliosis or deformity SKIN: No rashes CENTRAL NERVOUS SYSTEM: No focal deficits, tone is normal in all 4 extremities. EXTREMITIES: There is no peripheral edema. No clubbing, no cyanosis. Pe ripheral pulses are intact. Results - Laboratory Findings CBC and BMP: 02/06/24 06:22 02/06/24 05:35 ABG ABG pH 7.35 (7.35-7.45) 02/06/24 06:34 ABG pCO2 84 mmHg (35-45) H* 02/06/24 06:34 ABG pO2 82 mmHg (83-108) L 02/06/24 06:34 ABG O2 Saturation 96.6 % (94-97) 02/06/24 06:34 Abnormal lab findings: Abnormal Labs 02/06/24 02/06/24 02/06/24 05:35 05:35 06:22 WBC 11.1 H Neutrophils # 8.7 H ABG pCO2 ABG pO2 ABG HCO3 ABG Total CO2 VBG pCO2 72 H* VBG HCO3 45 H Chloride 90 L Carbon Dioxide 46 H* BUN 25 H Creatinine 0.41 L Glucose 120 H AST 53 H ALT 57 H 02/06/24 06:34 WBC Neutrophils # ABG pCO2 84 H* ABG pO2 82 L ABG HCO3 46 H* ABG Total CO2 48 H VBG pCO2 VBG HCO3 Chloride Carbon Dioxide BUN Creatinine Glucose AST ALT - Diagnostic Findings Chest x-ray: image reviewed Assessment and Plan Assessment: Acute on chronic hypoxemic/hypercapnic respiratory failure secondary to an exacerbation of chronic obstructive pulmonary disease with chronic and ongoing tobacco dependence Multiple admissions for the same most recently here 02/03/2024 and left AGAINST MEDICAL ADVICE on 02/05/2024. Nine hospitalizations this year since July 2023 History of ventilator dependent respiratory failure with previous tracheostomy and PEG tube insertion status post decannulation Very severe underlying COPD with an FEV1 22% of predicted Chronic hypoxemic respiratory failure, normally maintained on 2 L/min nasal cannula 21/11 Chronic ongoing tobacco dependence, currently smoking 1/2 pack/day Acquired immunodeficiency syndrome, maintained on Biktarvy, most recent CD4 count 83 History of left upper lobe lung nodule, previously measuring 9 mm in size, being monitored on outpatient basis Plan: The patient was seen and evaluated Chest x-ray, labs and medications reviewed Continue BiPAP support for now Transition to nasal cannula as tolerated Continue DuoNeb inhalations every 4 hours Continue Symbicort Continue prednisone taper Again be educated regarding the complete smoking cessation NicoDerm patch will be offered This is her ninth admission to the hospital this year since July Again be educated regarding medication and medical follow-up compliance May need subacute rehabilitation or be assigned a legal guardian if unable to care for herself at home I have personally seen and examined the patient, performed the documentation and the assessment and plan as written. Number of minutes spent on the visit: 20.
[2024-02-06] MEDS ORDERED: SYMBICORT 160-4.5 MCG INHALER INHALATION SCH (20:00)
[2024-02-06] MEDS ORDERED: BUDESONIDE 0.5 MG/2 ML NEBU INHALATION SCH (20:00)
[2024-02-07] MEDS ORDERED: NICOTINE 14MG/24HR PATCH TRANSDERM SCH (09:00)
--- NOTE | 2024-02-08 09:52 | P.DS ---
Providers Date of admission: 02/06/24 07:04 Expected date of discharge: 02/06/24 Attending physician: Cheli Zavaleta Consults: 02/06/24 07:05 Consult Physician Routine Consulting Provider: Davin Pro Consult Reason/Comments: copd exacerbation Do you want consulting provider notified?: Already Contacted Primary care physician: Francisco Serna [facility] Course: Discharge diagnoses; Acute on chronic hypoxemic hypercapnic respiratory failure Acute COPD exacerbation Hypertension History of CVA/TIA HIV on antiretroviral therapy. Anxiety/depression/panic disorder Prior history of smoking Hospital course; Patient is a 53-year-old female with known history of asthma/COPD, history of CVA/TIA, HIV, anxiety/depression/panic disorder and prior history of smoking, hypertension who presents the ER because of shortness of breath. Patient was admitted to the hospital over the last few days with similar complaints but patient left AGAINST MEDICAL ADVICE as she stated that she wanted to take care of her dog. Since going back home. Patient started to have worsening shortness of breath. Shortness of breath is present at rest and on exertion. Denies any chest pain. There is no complaint of fever or chills. Denies any nausea or vomiting. There is no current orthopnea or PND. EMS was called and patient was brought to the ER. Patient had to be placed on BiPAP.Initial lab work done in the ER showed WBC 11.1, hemoglobin 12.8, platelet count 362, sodium 138, potassium 4.4, BUN 25, carbon psyched 46, anion gap 2, creatinine 0.41, EKG done in the ER showed heart rate of 130, no ST segment elevation or depression seen, no T-wave inversions seen. Chest x-ray done in the ER showed underlying emphysema, no definite acute process Patient admitted to internal medicine service Patient was seen by pulmonology, was placed on IV steroids. Patient while in the ER, again decided to leave AGAINST MEDICAL ADVICE. Patient was counseled again to stay in the hospital to get treated but she refused Dictation was produced using [employer] dictation software. please excuse any grammatical, word or spelling errors. Patient Condition at Discharge: Poor Plan - Discharge Summary New Discharge Prescriptions: No Action Albuterol Sulfate [Albuterol Sulfate Hfa] 2 puff INHALATION RT-Q4H PRN PRN Reason: Shortness Of Breath Ipratropium-Albuterol Nebulize [Duoneb 0.5 mg-3 mg/3 ml Soln] 3 ml INHALATION RT-Q4H PRN PRN Reason: Shortness Of Breath Famotidine [Pepcid] 20 mg PO BID ALPRAZolam [Xanax] 0.5 mg PO BID Ibuprofen [Motrin Ib] 200 - 400 mg PO Q6H PRN PRN Reason: Pain Or Fever > 100.5 Fluticasone Propionate [Flonase Allergy Relief] 1 spray EA NOSTRIL DAILY PRN PRN Reason: Congestion Fluticasone/Umeclidin/Vilanter [Trelegy Ellipta 200-62.5-25] 1 puff INHALATION RT-DAILY amLODIPine [Norvasc] 10 mg PO DIRECTED Nicotine 14Mg/24Hr Patch [Habitrol] 1 patch TRANSDERM DIRECTED Ipratropium-Albuterol Nebulize [Duoneb 0.5 mg-3 mg/3 ml Soln] 3 ml INHALATION RT-QID each Bictegrav/Emtricit/Tenofov Ala [Biktarvy 50-200-25 mg Tablet] 1 tab PO DAILY Ondansetron [Zofran] 4 mg PO BID PRN PRN Reason: Nausea Simethicone [Gas-X] 125 - 250 mg PO ACHS PRN PRN Reason: gas Diurex 2 tab PO Q4H PRN MDD 6 tabs PRN Reason: weight gain/bloating Mirtazapine [Remeron] 15 mg PO HS Losartan [Cozaar] 50 mg PO DIRECTED Budesonide-Formot 160-4.5 Mcg [Symbicort 160-4.5 Mcg Inhaler] 2 puff INHALATION RT-BID #1 each Discharge Medication List Albuterol Sulfate [Albuterol Sulfate Hfa] 2 puff INHALATION RT-Q4H PRN 03/14/22 [History] Bictegrav/Emtricit/Tenofov Ala [Biktarvy 50-200-25 mg Tablet] 1 tab PO DAILY 08/10/23 [History] Ipratropium-Albuterol Nebulize [Duoneb 0.5 mg-3 mg/3 ml Soln] 3 ml INHALATION RT-Q4H PRN 08/10/23 [History] Famotidine [Pepcid] 20 mg PO BID 09/30/23 [History] Ondansetron [Zofran] 4 mg PO BID PRN 11/05/23 [History] ALPRAZolam [Xanax] 0.5 mg PO BID 11/27/23 [History] Diurex 2 tab PO Q4H PRN MDD 6 tabs 11/27/23 [History] Fluticasone Propionate [Flonase Allergy Relief] 1 spray EA NOSTRIL DAILY PRN 11/27/23 [History] Ibuprofen [Motrin Ib] 200 - 400 mg PO Q6H PRN 11/27/23 [History] Simethicone [Gas-X] 125 - 250 mg PO ACHS PRN 11/27/23 [History] Fluticasone/Umeclidin/Vilanter [Trelegy Ellipta 200-62.5-25] 1 puff INHALATION RT-DAILY 01/04/24 [History] Mirtazapine [Remeron] 15 mg PO HS 01/04/24 [History] Budesonide-Formot 160-4.5 Mcg [Symbicort 160-4.5 Mcg Inhaler] 2 puff INHALATION RT-BID #1 each 01/21/24 [Rx] Ipratropium-Albuterol Nebulize [Duoneb 0.5 mg-3 mg/3 ml Soln] 3 ml INHALATION RT-QID each 01/21/24 [Rx] Losartan [Cozaar] 50 mg PO DIRECTED 01/21/24 [History] Nicotine 14Mg/24Hr Patch [Habitrol] 1 patch TRANSDERM DIRECTED 01/21/24 [History] amLODIPine [Norvasc] 10 mg PO DIRECTED 01/21/24 [History] Follow up Appointment(s)/Referral(s): Francisco Harvey [Primary Care Provider] - 1-2 days Discharge Disposition: HOME SELF-CARE
== END 2024-02-06 15:00 | disposition left against medical advice (07) ==
LOC: EC 04:52 → 3SCARD 07:04 → INTOOBSV 07:04 → 3SCARD 11:41
PROVIDERS: ADMIT Hospitalist; ATTEND Hospitalist
DX: J96.22 Acute and chronic respiratory failure with hypercapnia (principal); J96.21 Acute and chronic respiratory failure with hypoxia; J44.1 Chronic obstructive pulmonary disease with (acute) exacerbation; I10 Essential (primary) hypertension; B20 Human immunodeficiency virus [HIV] disease; F41.0 Panic disorder [episodic paroxysmal anxiety]; F32.A Depression, unspecified; R91.1 Solitary pulmonary nodule; Z86.73 Personal history of transient ischemic attack (TIA), and cerebral infarction without residual deficits; Z87.891 Personal history of nicotine dependence; Z99.11 Dependence on respirator [ventilator] status; Z79.51 Long term (current) use of inhaled steroids; Z79.899 Other long term (current) drug therapy; Z88.0 Allergy status to penicillin; Z53.29 Procedure and treatment not carried out because of patient's decision for other reasons
CPT/HCPCS: 96365; 96366; 96375; 99291; 36415; 94660; 94640 ×2; 36600; 93005; 80053; 82805; 82803; 83605; 83735; 85025; 84145; 71045; G0378; J1100; J3475; J7512

== ENCOUNTER 2024-02-10 23:28 | Inpatient (IN) | payer MEDICARE, OTHER ==
[2024-02-10] MEDS: IPRATROPIUM 0.5 MG/2.5 ML NEBU INHALATION STA (23:40)
[2024-02-10] MEDS: ALBUTEROL NEBULIZED 2.5 MG/3 ML INHALATION STA (23:40)
--- NOTE | 2024-02-10 23:40 | ED ---
SOB HPI - General Stated Complaint: TK Time Seen by Provider: 02/10/24 23:30 Source: EMS, RN notes reviewed, old records reviewed Mode of arrival: EMS Limitations: no limitations - History of Present Illness Initial Comments: This is a 53-year-old female to the ER for evaluation today. Patient presents today for evaluation of severe COPD exacerbation MD Complaint: shortness of breath, "asthma attack", anxiety -: unknown Severity: severe Severity scale (1-10): 10 Improves With: oxygen Worsens With: exertion Known History Of: COPD, asthma Context: recent URI, recent illness Associated Symptoms: denies other symptoms Treatments Prior to Arrival: bronchodilator, NIPPV - Related Data Home Medications Medication Instructions Recorded Confirmed Albuterol Sulfate [Albuterol 2 puff INHALATION RT-Q4H PRN 03/14/22 02/11/24 Sulfate Hfa] Bictegrav/Emtricit/Tenofov Ala 1 tab PO DAILY 08/10/23 02/11/24 [Biktarvy 50-200-25 mg Tablet] Ipratropium-Albuterol Nebulize 3 ml INHALATION RT-Q4H PRN 08/10/23 02/11/24 [Duoneb 0.5 mg-3 mg/3 ml Soln] Famotidine [Pepcid] 20 mg PO BID 09/30/23 02/11/24 Ondansetron [Zofran] 4 mg PO BID PRN 11/05/23 02/11/24 ALPRAZolam [Xanax] 0.5 mg PO BID 11/27/23 02/11/24 Diurex 2 tab PO Q4H PRN MDD 6 tabs 11/27/23 02/11/24 Fluticasone Propionate [Flonase 1 spray EA NOSTRIL DAILY PRN 11/27/23 02/11/24 Allergy Relief] Ibuprofen [Motrin Ib] 200 - 400 mg PO Q6H PRN 11/27/23 02/11/24 Simethicone [Gas-X] 125 - 250 mg PO ACHS PRN 11/27/23 02/11/24 Fluticasone/Umeclidin/Vilanter 1 puff INHALATION RT-DAILY 01/04/24 02/11/24 [Trelegy Ellipta 200-62.5-25] Mirtazapine [Remeron] 15 mg PO HS 01/04/24 02/11/24 Losartan [Cozaar] 50 mg PO BID 01/21/24 02/11/24 Nicotine 14Mg/24Hr Patch [Habitrol] 1 patch TRANSDERM DAILY 01/21/24 02/11/24 amLODIPine [Norvasc] 10 mg PO DAILY 01/21/24 02/11/24 Previous Rx's Medication Instructions Recorded Budesonide-Formot 160-4.5 Mcg 2 puff INHALATION RT-BID #1 each 01/21/24 [Symbicort 160-4.5 Mcg Inhaler] Ipratropium-Albuterol Nebulize 3 ml INHALATION RT-QID each 01/21/24 [Duoneb 0.5 mg-3 mg/3 ml Soln] Allergies Allergy/AdvReac Type Severity Reaction Status Date / Time Penicillins Allergy Anaphylaxis Verified 02/11/24 10:30 Milk Containing Products AdvReac Nausea & Verified 02/11/24 10:30 (Dairy) Vomiting & Diarrhea Review of Systems ROS Statement: Those systems with pertinent positive or pertinent negative responses have been documented in the HPI. ROS Other: All systems not noted in ROS Statement are negative. Past Medical History Past Medical History: Asthma, Blood Disorder, COPD, CVA/TIA Additional Past Medical History / Comment(s): HIV History of Any Multi-Drug Resistant Organisms: None Reported Past Surgical History: No Surgical Hx Reported Additional Past Surgical History / Comment(s): peg and tracheostomy reversal 2023 Past Anesthesia/Blood Transfusion Reactions: No Reported Reaction Past Psychological History: Anxiety, Depression, Panic Disorder Smoking Status: Former smoker Past Alcohol Use History: None Reported, Occasional Past Drug Use History: None Reported - Past Family History Mother History Unknown: Yes General Exam Limitations: altered mental status, physical limitation General appearance: alert, in no apparent distress, anxious, in distress Head exam: Present: atraumatic, normocephalic, normal inspection Eye exam: Present: normal appearance, PERRL, EOMI. Absent: scleral icterus, conjunctival injection, periorbital swelling ENT exam: Present: normal exam, mucous membranes moist Neck exam: Present: normal inspection. Absent: tenderness, meningismus, lymphadenopathy Respiratory exam: Present: respiratory distress, wheezes, accessory muscle use, decreased breath sounds, prolonged expiratory. Absent: rales, rhonchi, stridor Cardiovascular Exam: Present: tachycardia, irregular rhythm, normal heart sounds. Absent: systolic murmur, diastolic murmur, rubs, gallop, clicks GI/Abdominal exam: Present: soft, normal bowel sounds. Absent: distended, tenderness, guarding, rebound, rigid Extremities exam: Present: normal inspection, full ROM, normal capillary refill. Absent: tenderness, pedal edema, joint swelling, calf tenderness Back exam: Present: normal inspection Neurological exam: Present: alert, oriented X3, CN II-XII intact Psychiatric exam: Present: normal affect, normal mood Skin exam: Present: warm, dry, intact, normal color. Absent: rash Course Vital Signs 02/10/24 02/10/24 02/10/24 23:29 23:38 23:41 Temperature 97.9 F Pulse Rate 126 H 122 H Respiratory 30 H 29 H 26 H Rate Blood Pressure 177/116 O2 Sat by Pulse 99 Oximetry Fraction of Inspired Oxygen (FIO2) 02/10/24 02/10/24 02/10/24 23:43 23:45 23:47 Temperature Pulse Rate 121 H 122 H Respiratory 26 H 22 Rate Blood Pressure 160/113 O2 Sat by Pulse 100 Oximetry Fraction of 40 Inspired Oxygen (FIO2) 02/11/24 02/11/24 02/11/24 00:10 00:36 01:10 Temperature Pulse Rate 120 H 117 H 120 H Respiratory 26 H 24 22 Rate Blood Pressure 134/93 123/78 116/85 O2 Sat by Pulse 98 99 98 Oximetry Fraction of Inspired Oxygen (FIO2) 02/11/24 02/11/24 02:06 02:53 Temperature Pulse Rate 112 H 113 H Respiratory 21 24 Rate Blood Pressure 123/91 114/87 O2 Sat by Pulse 99 99 Oximetry Fraction of Inspired Oxygen (FIO2) - Reevaluation(s) Reevaluation #1: 02/10/24 23:39 Records reviewed Reevaluation #2: 02/11/24 02:49 Patient maintains on BiPAP here in the emergency department Reevaluation #3: 02/11/24 02:49 Patient informed of results and questions answered Reevaluation #4: Was pt. sent in by a medical professional or institution (, PA, EMISSION TECHNICIAN, urgent care, hospital, or penitentiary...) When possible be specific @ -no Did you speak to anyone other than the patient for history (EMS, parent, family, police, friend...)? What history was obtained from this source @ -no Did you review nursing and triage notes (agree or disagree)? Why? @ -agree Are old charts reviewed (outside hosp., previous admission, EMS record, old EKG, old radiological studies, urgent care reports/EKG's, penitentiary records)? Report findings @ -yes Differential Diagnosis (chest pain, altered mental status, abdominal pain women, abdominal pain men, vaginal bleeding, weakness, fever, dyspnea, syncope, headache, dizziness, GI bleed, back pain, seizure, CVA, palpatations, mental health, musculoskeletal)? @ -prior EKG interpreted by me (3pts min.). @ -yes X-rays interpreted by me (1pt min.). @ -yes negative for acute disease CT interpreted by me (1pt min.). @ -no U/S interpreted by me (1pt. min.). @ -no What testing was considered but not performed or refused? (CT, X-rays, U/S, labs)? Why? @ -none What meds were considered but not given or refused? Why? @ -none Did you discuss the management of the patient with other professionals (professionals i.e. , PA, EMISSION TECHNICIAN, lab, RT, psych nurse, public health social worker, solar mechanical engineer, teacher, staff air tactical officer, test case developer)? Give summary @ -no Was smoking cessation discussed for >3mins.? @ -no Was critical care preformed (if so, how long)? @ -yes31 Were there social determinants of health that impacted care today? How? (Homelessness, low income, unemployed, alcoholism, drug addiction, transportation, low edu. Level, literacy, decrease access to med. care, half-way, rehab)? @ -none Was there de-escalation of care discussed even if they declined (Discuss DNR or withdrawal of care, Hospice)? DNR status @ -no What co-morbidities impacted this encounter? (DM, HTN, Smoking, COPD, CAD, Cancer, CVA, ARF, Chemo, Hep., AIDS, mental health diagnosis, sleep apnea, morbid obesity)? @ -none Was patient admitted / discharged? Hospital course, mention meds given and route, prescriptions, significant lab abnormalities, going to OR and other pertinent info. @ - 53 female will be admitted for respiratory failure Admitted Undiagnosed new problem with uncertain prognosis? @ -no Drug Therapy requiring intensive monitoring for toxicity (Heparin, Nitro, Insulin, Cardizem)? @ -no Were any procedures done? @ -no Diagnosis/symptom? @ -COPD with respiratory distress Acute, or Chronic, or Acute on Chronic? @ -Acute Uncomplicated (without systemic symptoms) or Complicated (systemic symptoms)? @ -Complicated Side effects of treatment? @ -no Exacerbation, Progression, or Severe Exacerbation? @ -exacerbation Poses a threat to life or bodily function? How? (Chest pain, [place], NH, pneumonia, PE, COPD, DKA, ARF, appy, cholecystitis, CVA, Diverticulitis, Homicidal, Suicidal, threat to staff... and all critical care pts) @ -yes severe respiratory distress Reevaluation #5: Differential Dyspnea: Coronary syndrome, arrhythmia, tamponade, asthma, COPD, pulmonary embolism, pneumonia, pneumothorax, pulmonary effusion, anaphylaxis, diabetic ketoacidosis, flailed chest, pulmonary contusion, diaphragmatic rupture, anemia, neuromuscul ar, this is not meant to be an all-inclusive list. - Consultations Consultation #1: Spoke with [facility] who agrees to admit this patient Medical Decision Making - Medical Decision Making 53 female will be admitted for respiratory failure - Lab Data Result diagrams: 02/10/24 23:34 02/10/24 23:34 Lab Results 02/10/24 02/10/24 02/10/24 Range/Units 23:34 23:34 23:34 WBC 11.3 H (3.8-10.6) k/uL RBC 3.88 (3.80-5.40) m/uL Hgb 12.8 (11.4-16.0) gm/dL Hct 38.9 (34.0-46.0) % MCV 100.3 H (80.0-100.0) fL MCH 33.1 (25.0-35.0) pg MCHC 33.0 (31.0-37.0) g/dL RDW 14.9 (11.5-15.5) % Plt Count 383 (150-450) k/uL MPV 6.4 Neutrophils % 73 % Lymphocytes % 19 % Monocytes % 6 % Eosinophils % 0 % Basophils % 1 % Neutrophils # 8.2 H (1.3-7.7) k/uL Lymphocytes # 2.1 (1.0-4.8) k/uL Monocytes # 0.7 (0-1.0) k/uL Eosinophils # 0.0 (0-0.7) k/uL Basophils # 0.1 (0-0.2) k/uL Hypochromasia Marked Macrocytosis Slight PT 9.4 L (10.0-12.5) sec INR 0.8 (<1.2) APTT 21.5 L (22.0-30.0) sec VBG pH (7.31-7.41) VBG pCO2 (37-51) mmHg VBG HCO3 (24-28) mmol/L Sodium 137 (137-145) mmol/L Potassium 4.3 (3.5-5.1) mmol/L Chloride 86 L (98-107) mmol/L Carbon Dioxide 49 H* (22-30) mmol/L Anion Gap 2 mmol/L BUN 22 H (7-17) mg/dL Creatinine 0.34 L (0.52-1.04) mg/dL Est GFR (CKD-EPI)AfAm >90 (>60 ml/min/1.73 sqM) Est GFR (CKD-EPI)NonAf >90 (>60 ml/min/1.73 sqM) Glucose 106 H (74-99) mg/dL Plasma Lactic Acid Jarad (0.7-2.0) mmol/L Calcium 9.0 (8.4-10.2) mg/dL Magnesium 2.3 (1.6-2.3) mg/dL Total Bilirubin 0.3 (0.2-1.3) mg/dL AST 29 (14-36) U/L ALT 40 H (4-34) U/L Alkaline Phosphatase 79 (38-126) U/L Troponin I (0.000-0.034) ng/mL NT-Pro-B Natriuret Pep 302 pg/mL Total Protein 6.9 (6.3-8.2) g/dL Albumin 4.6 (3.5-5.0) g/dL Serum Alcohol <10 mg/dL 02/10/24 02/10/24 02/10/24 Range/Units 23:34 23:34 23:37 WBC (3.8-10.6) k/uL RBC (3.80-5.40) m/uL Hgb (11.4-16.0) gm/dL Hct (34.0-46.0) % MCV (80.0-100.0) fL MCH (25.0-35.0) pg MCHC (31.0-37.0) g/dL RDW (11.5-15.5) % Plt Count (150-450) k/uL MPV Neutrophils % % Lymphocytes % % Monocytes % % Eosinophils % % Basophils % % Neutrophils # (1.3-7.7) k/uL Lymphocytes # (1.0-4.8) k/uL Monocytes # (0-1.0) k/uL Eosinophils # (0-0.7) k/uL Basophils # (0-0.2) k/uL Hypochromasia Macrocytosis PT (10.0-12.5) sec INR (<1.2) APTT (22.0-30.0) sec VBG pH 7.23 L (7.31-7.41) VBG pCO2 130 H* (37-51) mmHg VBG HCO3 55 H (24-28) mmol/L Sodium (137-145) mmol/L Potassium (3.5-5.1) mmol/L Chloride (98-107) mmol/L Carbon Dioxide (22-30) mmol/L Anion Gap mmol/L BUN (7-17) mg/dL Creatinine (0.52-1.04) mg/dL Est GFR (CKD-EPI)AfAm (>60 ml/min/1.73 sqM) Est GFR (CKD-EPI)NonAf (>60 ml/min/1.73 sqM) Glucose (74-99) mg/dL Plasma Lactic Acid Jarad 0.9 (0.7-2.0) mmol/L Calcium (8.4-10.2) mg/dL Magnesium (1.6-2.3) mg/dL Total Bilirubin (0.2-1.3) mg/dL AST (14-36) U/L ALT (4-34) U/L Alkaline Phosphatase (38-126) U/L Troponin I 0.023 (0.000-0.034) ng/mL NT-Pro-B Natriuret Pep pg/mL Total Protein (6.3-8.2) g/dL Albumin (3.5-5.0) g/dL Serum Alcohol mg/dL - EKG Data -: EKG Interpreted by Me - Radiology Data Radiology results: report reviewed (Chest x-ray is negative for acute disease), image reviewed Critical Care Time Critical Care Time: Yes Total Critical Care Time: 31 Disposition Clinical Impression: COPD (chronic obstructive pulmonary disease), Hypoxia, Acute respiratory distress, BiPAP (biphasic positive airway pressure) dependence, Acute res piratory failure, Acute exacerbation of chronic obstructive pulmonary disease Disposition: ADMITTED IP TO THIS HOSP Condition: Serious Is patient prescribed a controlled substance at d/c from ED?: No Time of Disposition: 02:45
[2024-02-10] MEDS: LORazepam 2 MG/ML INJ IV STA (23:42)
[2024-02-10] MEDS: SODIUM CHLORIDE 0.9% 1,000 ML IV STA (23:43)
[2024-02-10 23:48] LABS: Basophils # (A) 0.1 k/uL (0-0.2); Basophils % (A) 1 %; Eosinophils % (A) 0 %; HCT 38.9 % (34.0-46.0); HGB 12.8 gm/dL (11.4-16.0); Hypochromasia Marked; Lymphocytes # (A) 2.1 k/uL (1.0-4.8); Lymphocytes % (A) 19 %; MCH 33.1 pg (25.0-35.0); MCV 100.3 fL (80.0-100.0); Macrocytosis Slight; Mean Platelet Volume 6.4; Monocytes # (A) 0.7 k/uL (0-1.0); Monocytes % (A) 6 %; Neutrophils # (A) 8.2 k/uL (1.3-7.7); Neutrophils % (A) 73 %; Platelet Count 383 k/uL (150-450); RBC 3.88 m/uL (3.80-5.40); RDW 14.9 % (11.5-15.5); WBC 11.3 k/uL (3.8-10.6)
[2024-02-11 00:05] LABS: ALT 40 U/L (4-34); AST 29 U/L (14-36); African American GFR (CKD) >90 (>60 ml/min/1.73 sqM); Albumin 4.6 g/dL (3.5-5.0); Alcohol <10 mg/dL; Alkaline Phosphatase 79 U/L (38-126); Blood Urea Nitrogen 22 mg/dL (7-17); Chloride 86 mmol/L (98-107); Glucose 106 mg/dL (74-99); Magnesium 2.3 mg/dL (1.6-2.3); Non-African American GFR(CKD) >90 (>60 ml/min/1.73 sqM); Potassium 4.3 mmol/L (3.5-5.1); Sodium 137 mmol/L (137-145); Total Bilirubin 0.3 mg/dL (0.2-1.3); Total Protein 6.9 g/dL (6.3-8.2)
[2024-02-11 00:11] LABS: Anion Gap 2 mmol/L
[2024-02-11 00:14] LABS: Carbon Dioxide 49 mmol/L (22-30); NT-Pro-B-Type Natriuretic Pept 302 pg/mL
[2024-02-11 00:23] LABS: INR 0.8 (<1.2); Prothrombin Time 9.4 sec (10.0-12.5)
[2024-02-11 00:39] LABS: Partial Thromboplastin Time 21.5 sec (22.0-30.0)
[2024-02-11 00:43] LABS: VBG PH 7.23 (7.31-7.41)
--- NOTE | 2024-02-11 01:06 | XR ---
EXAM: XR Chest, 1 View CLINICAL HISTORY: ITS.REASON XR Reason: sob TECHNIQUE: Frontal view of the chest. COMPARISON: No relevant prior studies available. FINDINGS: Lungs: No consolidation or mass. Pleural space: No acute findings. Heart: No cardiomegaly. Bones/joints: No acute findings. IMPRESSION: No acute cardiopulmonary process.
[2024-02-11] MEDS ORDERED: NALOXONE 0.4 MG/ML 1 ML VIAL IVP PRN (02:46)
[2024-02-11] MEDS ORDERED: NALOXONE 0.4 MG/ML 1 ML VIAL IV PRN (02:46)
[2024-02-11] MEDS ORDERED: ONDANSETRON 4 MG/2 ML VIAL IVP PRN (02:46)
[2024-02-11] MEDS: methylPREDNISolone SOD SUCCI 125 MG/2 ML VIAL IV STA (02:55)
[2024-02-11] MEDS: IPRATROPIUM-ALBUTEROL 3 ML NEB INHALATION STA (03:46)
[2024-02-11] MEDS: SODIUM CHLORIDE 0.9% 1,000 ML IV SCH (05:22)
[2024-02-11] MEDS: methylPREDNISolone SOD SUCCI 125 MG/2 ML VIAL IV SCH (05:30)
[2024-02-11 06:13] LABS: Glucose,Whole Blood 145 mg/dL (70-110)
[2024-02-11] MEDS: ALBUTEROL NEBULIZED 2.5 MG/3 ML INHALATION SCH (07:46)
[2024-02-11] MEDS: PANTOPRAZOLE 40 MG/10 ML VIAL IV SCH (08:05)
--- NOTE | 2024-02-11 10:52 | P.CNPUL ---
History of Present Illness Consult date: 02/11/24 Requesting physician: Cheli Zavaleta Reason for consult: dyspnea, cough, COPD, hypoxemia Chief complaint: Shortness of breath. History of present illness: Pulmonary consult dated February 11, 2024. 53-year-old female with a history of severe COPD. The patient is well-known to our service, and has had multiple admissions in this hospital, starting in July. In July, she ended up on mechanical ventilator, could not be weaned, and then up with a tracheostomy, and feeding tube. The feeding tube and the tracheostomy tube, subsequently was removed. The patient comes into the emergency room, on February 09 complaining of increasing shortness of breath. The patient also has a history of CVA, and HIV. The patient is a former smoker, and suffers with anxiety and depression. The patient was admitted to the hospital, and placed on BiPAP. Her BiPAP settings include 16/6, 30%. She seen in room 351. She is not on any IV fluids. Her chest x-ray did not show anything acute. Currently, white count 11.3, hemoglobin 12.8, hematocrit 38.9, and a platelet count of 383,000. PT 9.4, PTT is 21.5. Venous blood gases show a pCO2 of 130, and a pH of 7.23. Sodium 137, potassium 4.3, chloride 86, CO2 49, BUN 22, creatinine 0.34. Glucose is 145. Review of Systems REVIEW OF SYSTEMS: CONSTITUTIONAL: [Negative.] NEUROLOGIC: [ Negative.] HEENT: [ Negative.] CARDIAC: [Negative.] PULMONARY: Shortness of breath, and mostly nonproductive cough. GI: [Negative.] : [Negative.] RHEUMATOLOGIC: [ Negative.] IMMUNOLOGIC: [ Negative.] ENDOCRINE: [Negative. ] DERMATOLOGIC: [Negative.] Past Medical History Past Medical History: Asthma, Blood Disorder, COPD, CVA/TIA Additional Past Medical History / Comment(s): HIV History of Any Multi-Drug Resistant Organisms: None Reported Past Surgical History: No Surgical Hx Reported Additional Past Surgical History / Comment(s): peg and tracheostomy reversal 2023 Past Anesthesia/Blood Transfusion Reactions: No Reported Reaction Past Psychological History: Anxiety, Depression, Panic Disorder Smoking Status: Current every day smoker Past Alcohol Use History: None Reported, Occasional Past Drug Use History: None Reported - Past Family History Mother History Unknown: Yes Medications and Allergies Home Medications Medication Instructions Recorded Confirmed Type Albuterol Sulfate [Albuterol 2 puff INHALATION RT-Q4H PRN 03/14/22 02/11/24 History Sulfate Hfa] Bictegrav/Emtricit/Tenofov Ala 1 tab PO DAILY 08/10/23 02/11/24 History [Biktarvy 50-200-25 mg Tablet] Ipratropium-Albuterol Nebulize 3 ml INHALATION RT-Q4H PRN 08/10/23 02/11/24 History [Duoneb 0.5 mg-3 mg/3 ml Soln] Famotidine [Pepcid] 20 mg PO BID 09/30/23 02/11/24 History Ondansetron [Zofran] 4 mg PO BID PRN 11/05/23 02/11/24 History ALPRAZolam [Xanax] 0.5 mg PO BID 11/27/23 02/11/24 History Diurex 2 tab PO Q4H PRN MDD 6 tabs 11/27/23 02/11/24 History Fluticasone Propionate [Flonase 1 spray EA NOSTRIL DAILY PRN 11/27/23 02/11/24 History Allergy Relief] Ibuprofen [Motrin Ib] 200 - 400 mg PO Q6H PRN 11/27/23 02/11/24 History Simethicone [Gas-X] 125 - 250 mg PO ACHS PRN 11/27/23 02/11/24 History Fluticasone/Umeclidin/Vilanter 1 puff INHALATION RT-DAILY 01/04/24 02/11/24 History [Trelegy Ellipta 200-62.5-25] Mirtazapine [Remeron] 15 mg PO HS 01/04/24 02/11/24 History Budesonide-Formot 160-4.5 Mcg 2 puff INHALATION RT-BID #1 each 01/21/24 02/11/24 Rx [Symbicort 160-4.5 Mcg Inhaler] Ipratropium-Albuterol Nebulize 3 ml INHALATION RT-QID each 01/21/24 02/11/24 Rx [Duoneb 0.5 mg-3 mg/3 ml Soln] Losartan [Cozaar] 50 mg PO BID 01/21/24 02/11/24 History Nicotine 14Mg/24Hr Patch [Habitrol] 1 patch TRANSDERM DAILY 01/21/24 02/11/24 History amLODIPine [Norvasc] 10 mg PO DAILY 01/21/24 02/11/24 History Allergies Allergy/AdvReac Type Severity Reaction Status Date / Time Penicillins Allergy Anaphylaxis Verified 02/11/24 10:30 Milk Containing Products AdvReac Nausea & Verified 02/11/24 10:30 (Dairy) Vomiting & Diarrhea Physical Exam Osteopathic Statement: *. No significant issues noted on an osteopathic structural exam other than those noted in the History and Physical/Consult. Vitals: Vital Signs Temp Pulse Pulse Resp BP BP Pulse Ox 02/11/24 07:55 112 H 02/11/24 07:48 98.6 F 111 H 31 H 118/71 93 L 02/11/24 07:47 110 H 02/11/24 05:09 108 H 27 H 02/11/24 04:20 97.7 F 66 26 H 147/83 99 02/11/24 03:58 02/11/24 03:57 111 H 24 02/11/24 03:47 118 H 22 02/11/24 02:53 113 H 24 114/87 99 02/11/24 02:06 112 H 21 123/91 99 02/11/24 01:10 120 H 22 116/85 98 02/11/24 00:36 117 H 24 123/78 99 02/11/24 00:10 120 H 26 H 134/93 98 02/10/24 23:47 122 H 22 02/10/24 23:45 121 H 26 H 160/113 100 02/10/24 23:43 02/10/24 23:41 122 H 26 H 02/10/24 23:38 29 H 02/10/24 23:29 97.9 F 126 H 30 H 177/116 99 FiO2 02/11/24 07:55 02/11/24 07:48 30 02/11/24 07:47 30 02/11/24 05:09 02/11/24 04:20 30 02/11/24 03:58 40 02/11/24 03:57 02/11/24 03:47 02/11/24 02:53 02/11/24 02:06 02/11/24 01:10 02/11/24 00:36 02/11/24 00:10 02/10/24 23:47 02/10/24 23:45 02/10/24 23:43 40 02/10/24 23:41 02/10/24 23:38 02/10/24 23:29 Intake and Output 02/10/24 02/11/24 02/11/24 22:59 06:59 14:59 Intake Total 0 20 Output Total 0 500 Balance 0 -480 Intake: IV 20 Invasive Line 1 10 Invasive Line 2 10 Oral 0 Output: Urine 0 500 Straight 500 Other: Voiding Method Bedside Commode Weight 50 kg No acute distress, sleeping, currently on BiPAP. No anthony respiratory distress. HEENT examination is grossly unremarkable. Mucous membranes are moist. No oral lesions. Neck supple. Full range of motion. No adenopathy thyromegaly or neck vein distention. Cardiovascular examination reveals regular rhythm rate. S1-S2 normal. No S3 or S4. No discernible murmur noted. Lungs reveal inspiratory and expiratory rhonchi and expiratory wheezes. No crackles. Breath sounds equal but diminished throughout. Abdomen soft bowel sounds are heard. No masses or tenderness. Extremities are intact. No cyanosis clubbing or edema. Skin is without rash or lesion. Neurologic examination is brief but nonfocal. Results - Laboratory Findings CBC and BMP: 02/10/24 23:34 02/10/24 23:34 PT/INR, D-dimer PT 9.4 sec (10.0-12.5) L 02/10/24 23:34 INR 0.8 (<1.2) 02/10/24 23:34 Abnormal lab findings: Abnormal Labs 02/10/24 02/10/24 02/10/24 23:34 23:34 23:34 WBC 11.3 H MCV 100.3 H Neutrophils # 8.2 H PT 9.4 L APTT 21.5 L VBG pH VBG pCO2 VBG HCO3 Chloride 86 L Carbon Dioxide 49 H* BUN 22 H Creatinine 0.34 L Glucose 106 H POC Glucose (mg/dL) ALT 40 H 02/10/24 02/11/24 23:37 06:12 WBC MCV Neutrophils # PT APTT VBG pH 7.23 L VBG pCO2 130 H* VBG HCO3 55 H Chloride Carbon Dioxide BUN Creatinine Glucose POC Glucose (mg/dL) 145 H ALT - Diagnostic Findings Chest x-ray: image reviewed Assessment and Plan Assessment: Acute on chronic hypoxemic and hypercapnic respiratory failure, secondary to COPD exacerbation. Ongoing tobacco use with nicotine addiction. Multiple hospital admissions, 9 this year alone, since July 2023 History of ventilator dependent respiratory failure with previous tracheostomy and PEG tube placement, with subsequent D cannulization, and PEG tube removal. Severe/stage IV COPD, with an FEV1 that is 22% of predicted. Chronic hypoxemic respiratory failure, on home O2, 21/11. Acquired immunodeficiency syndrome. History of upper lobe pulmonary nodule, being monitored. Plan: Plan dated February 11, 2024. The patient is seen today in room 351. She continues on BiPAP. The patient is getting Solu-Medrol 60 mg every 6 hours. The patient will also need DuoNebs, 4 times daily and as needed as well as Pulmicort and formoterol, at usual doses, twice a day. Labs, x-rays, medications are reviewed. Chest x-ray shows nothing acute. We will continue to follow. Prognosis is poor. Time with Patient: Greater than 30
[2024-02-11] MEDS ORDERED: IPRATROPIUM-ALBUTEROL 3 ML NEB INHALATION PRN (10:53)
[2024-02-11 11:42] LABS: Glucose,Whole Blood 176 mg/dL (70-110)
[2024-02-11] MEDS: IPRATROPIUM-ALBUTEROL 3 ML NEB INHALATION SCH (11:59)
[2024-02-11] MEDS ORDERED: FLUTICASONE NASAL 50MCG/SPRAY 16GM BTL EA NOSTRIL PRN (12:15)
--- NOTE | 2024-02-11 12:15 | P.HPIM ---
History of Present Illness H&P Date: 02/11/24 History of present illness; patient is a 53-year-old lady with past medical history significant for COPD, chronic hypoxic respiratory failure presented to the ER because of shortness of breath. Patient has multiple admission in the last 1 week with similar complaint and every time patient has left AGAINST MEDICAL ADVICE. Patient stated that she was all right last night when she started Complaining of shortness of breath. Shortness of breath was present on rest and was worsened with exertion. There was no cough or chest pain. Patient denied any fever or chills. There was no complaint of orthopnea or PND. Patient was complaining of swelling of lower extremities. Patient decided to come to the ER because of this worsening shortness of breath Initial lab work done in the ER showed WBC 11.3, hemoglobin 12.8, platelet count 383, sodium 139, potassium 4.3, carbon psyched 49, BUN 22, creatinine 0.34 AST 29, ALT 40 serum alcohol less than 10 EKG done in the ER showed heart rate of 124 , no ST segment elevation or depression seen, no T-wave inversions seen. Chest x-ray done in the ER showed no acute cardiopulmonary process Patient admitted to internal medicine service REVIEW OF SYSTEMS: CONSTITUTIONAL: No fever, no malaise, no fatigue. HEENT: No recent visual problems or hearing problems. Denied any sore throat. CARDIOVASCULAR: As mentioned above PULMONARY: As mentioned above GASTROINTESTINAL: No diarrhea, no nausea, no vomiting, no abdominal pain. NEUROLOGICAL: No headaches, no weakness, no numbness. HEMATOLOGICAL: Denies any bleeding or petechiae. GENITOURINARY: Denies any burning micturition, frequency, or urgency. MUSCULOSKELETAL/RHEUMATOLOGICAL: Denies any joint pain, swelling, or any muscle pain. ENDOCRINE: Denies any polyuria or polydipsia. The rest of the 14-point review of systems is negative. PHYSICAL EXAMINATION: GENERAL: The patient is alert and oriented x3, chronically ill looking HEENT: Pupils are round and equally reacting to light. EOMI. No scleral icterus. No conjunctival pallor. Normocephalic, atraumatic. No pharyngeal erythema. No thyromegaly. CARDIOVASCULAR: S1 and S2 present. No murmurs, rubs, or gallops. PULMONARY: Tachypneic, coarse breath sound bilaterally, expiratory wheeze audible ABDOMEN: Soft, nontender, nondistended, normoactive bowel sounds. No palpable organomegaly. MUSCULOSKELETAL: No joint swelling or deformity. EXTREMITIES: No cyanosis, clubbing. 1+ pitting edema lower extremities bilaterally NEUROLOGICAL: Gross neurological examination did not reveal any focal deficits. SKIN: No rashes. Assessment and plan Acute on chronic hypoxemic hypercapnic respiratory failure Acute COPD exacerbation Hypertension History of CVA/TIA HIV on antiretroviral therapy. Anxiety/depression/panic disorder Prior history of smoking Monitor vital signs Monitor CBC Monitor CMP Continue telemetry monitoring Ordered oxygen supplementation Ordered BiPAP Ordered serial ABGs Ordered breathing treatments Start prednisone Ordered IV Lasix Consulted pulmonary Labs and medication were reviewed.. Continue same treatment. Continue with symptomatic treatment. Resume home medication. Monitor labs and vitals. DVT and GI prophylaxis. Further recommendations as per clinical course of the patient Dictation was produced using [employer] dictation software. please excuse any grammatical, word or spelling errors. Past Medical History Past Medical History: Asthma, Blood Disorder, COPD, CVA/TIA Additional Past Medical History / Comment(s): HIV History of Any Multi-Drug Resistant Organisms: None Reported Past Surgical History: No Surgical Hx Reported Additional Past Surgical History / Comment(s): peg and tracheostomy reversal 2023 Past Anesthesia/Blood Transfusion Reactions: No Reported Reaction Past Psychological History: Anxiety, Depression, Panic Disorder Smoking Status: Current every day smoker Past Alcohol Use History: None Reported, Occasional Past Drug Use History: None Reported - Past Family History Mother History Unknown: Yes Medications and Allergies Home Medications Medication Instructions Recorded Confirmed Type Albuterol Sulfate [Albuterol 2 puff INHALATION RT-Q4H PRN 03/14/22 02/11/24 History Sulfate Hfa] Bictegrav/Emtricit/Tenofov Ala 1 tab PO DAILY 08/10/23 02/11/24 History [Biktarvy 50-200-25 mg Tablet] Ipratropium-Albuterol Nebulize 3 ml INHALATION RT-Q4H PRN 08/10/23 02/11/24 History [Duoneb 0.5 mg-3 mg/3 ml Soln] Famotidine [Pepcid] 20 mg PO BID 09/30/23 02/11/24 History Ondansetron [Zofran] 4 mg PO BID PRN 11/05/23 02/11/24 History ALPRAZolam [Xanax] 0.5 mg PO BID 11/27/23 02/11/24 History Diurex 2 tab PO Q4H PRN MDD 6 tabs 11/27/23 02/11/24 History Fluticasone Propionate [Flonase 1 spray EA NOSTRIL DAILY PRN 11/27/23 02/11/24 History Allergy Relief] Ibuprofen [Motrin Ib] 200 - 400 mg PO Q6H PRN 11/27/23 02/11/24 History Simethicone [Gas-X] 125 - 250 mg PO ACHS PRN 11/27/23 02/11/24 History Fluticasone/Umeclidin/Vilanter 1 puff INHALATION RT-DAILY 01/04/24 02/11/24 History [Trelegy Ellipta 200-62.5-25] Mirtazapine [Remeron] 15 mg PO HS 01/04/24 02/11/24 History Budesonide-Formot 160-4.5 Mcg 2 puff INHALATION RT-BID #1 each 01/21/24 02/11/24 Rx [Symbicort 160-4.5 Mcg Inhaler] Ipratropium-Albuterol Nebulize 3 ml INHALATION RT-QID each 01/21/24 02/11/24 Rx [Duoneb 0.5 mg-3 mg/3 ml Soln] Losartan [Cozaar] 50 mg PO BID 01/21/24 02/11/24 History Nicotine 14Mg/24Hr Patch [Habitrol] 1 patch TRANSDERM DAILY 01/21/24 02/11/24 History amLODIPine [Norvasc] 10 mg PO DAILY 01/21/24 02/11/24 History Allergies Allergy/AdvReac Type Severity Reaction Status Date / Time Penicillins Allergy Anaphylaxis Verified 02/11/24 10:30 Milk Containing Products AdvReac Nausea & Verified 02/11/24 10:30 (Dairy) Vomiting & Diarrhea Physical Exam Vitals: Vital Signs Temp Pulse Pulse Resp BP BP Pulse Ox 02/11/24 11:59 112 H 02/11/24 11:15 98.4 F 113 H 31 H 126/82 96 02/11/24 07:55 112 H 02/11/24 07:48 98.6 F 111 H 31 H 118/71 93 L 02/11/24 07:47 110 H 02/11/24 05:09 108 H 27 H 02/11/24 04:20 97.7 F 66 26 H 147/83 99 02/11/24 03:58 02/11/24 03:57 111 H 24 02/11/24 03:47 118 H 22 02/11/24 02:53 113 H 24 114/87 99 02/11/24 02:06 112 H 21 123/91 99 02/11/24 01:10 120 H 22 116/85 98 02/11/24 00:36 117 H 24 123/78 99 02/11/24 00:10 120 H 26 H 134/93 98 02/10/24 23:47 122 H 22 02/10/24 23:45 121 H 26 H 160/113 100 02/10/24 23:43 02/10/24 23:41 122 H 26 H 02/10/24 23:38 29 H 02/10/24 23:29 97.9 F 126 H 30 H 177/116 99 FiO2 02/11/24 11:59 02/11/24 11:15 30 02/11/24 07:55 02/11/24 07:48 30 02/11/24 07:47 30 02/11/24 05:09 02/11/24 04:20 30 02/11/24 03:58 40 02/11/24 03:57 02/11/24 03:47 02/11/24 02:53 02/11/24 02:06 02/11/24 01:10 02/11/24 00:36 02/11/24 00:10 02/10/24 23:47 02/10/24 23:45 02/10/24 23:43 40 02/10/24 23:41 02/10/24 23:38 02/10/24 23:29 Intake and Output 02/10/24 02/11/24 02/11/24 22:59 06:59 14:59 Intake Total 0 20 Output Total 0 900 Balance 0 -880 Intake: IV 20 Invasive Line 1 10 Invasive Line 2 10 Oral 0 Output: Urine 0 900 Straight 500 Other: Voiding Method Bedside Commode # Voids 1 Weight 50 kg Results CBC & Chem 7: 02/10/24 23:34 02/10/24 23:34 Labs: Abnormal Lab Results - Last 24 Hours (Table) 02/10/24 02/10/24 02/10/24 Range/Units 23:34 23:34 23:34 WBC 11.3 H (3.8-10.6) k/uL MCV 100.3 H (80.0-100.0) fL Neutrophils # 8.2 H (1.3-7.7) k/uL PT 9.4 L (10.0-12.5) sec APTT 21.5 L (22.0-30.0) sec VBG pH (7.31-7.41) VBG pCO2 (37-51) mmHg VBG HCO3 (24-28) mmol/L Chloride 86 L (98-107) mmol/L Carbon Dioxide 49 H* (22-30) mmol/L BUN 22 H (7-17) mg/dL Creatinine 0.34 L (0.52-1.04) mg/dL Glucose 106 H (74-99) mg/dL POC Glucose (mg/dL) (70-110) mg/dL ALT 40 H (4-34) U/L 02/10/24 02/11/24 02/11/24 Range/Units 23:37 06:12 11:41 WBC (3.8-10.6) k/uL MCV (80.0-100.0) fL Neutrophils # (1.3-7.7) k/uL PT (10.0-12.5) sec APTT (22.0-30.0) sec VBG pH 7.23 L (7.31-7.41) VBG pCO2 130 H* (37-51) mmHg VBG HCO3 55 H (24-28) mmol/L Chloride (98-107) mmol/L Carbon Dioxide (22-30) mmol/L BUN (7-17) mg/dL Creatinine (0.52-1.04) mg/dL Glucose (74-99) mg/dL POC Glucose (mg/dL) 145 H 176 H (70-110) mg/dL ALT (4-34) U/L Thrombosis Risk Factor Assmnt - Choose All That Apply Any of the Below Risk Factors Present?: Yes Each Factor Represents 1 point: Abnormal pulmonary function (COPD), Age 41-60 years, Swollen legs (current) Thrombosis Risk Factor Assessment Total Risk Factor Score: 3 Thrombosis Risk Factor Assessment Level: Moderate Risk
[2024-02-11] MEDS: FUROSEMIDE 10 MG/ML 2 ML VIAL IV SCH (12:18)
[2024-02-11] MEDS: predniSONE 20 MG TAB PO SCH (12:18)
[2024-02-11] MEDS: MORPHINE SULFATE 4 MG/ML SYRINGE IV PRN (15:51)
[2024-02-11] MEDS: BUDESONIDE 1 MG/2 ML NEBU INHALATION SCH (19:50)
[2024-02-11] MEDS: FORMOTEROL FUMARATE 20 MCG/2 ML NEBU INHALATION SCH (19:50)
[2024-02-11] MEDS: NEOMYCIN-BACITRACIN-POLY OINT 14 GM TUBE TOPICAL PRN (20:30)
[2024-02-11] MEDS: MIRTAZAPINE 15 MG TAB PO SCH (21:11)
[2024-02-11] MEDS: FAMOTIDINE 20 MG TAB PO SCH (21:11)
[2024-02-11] MEDS: LOSARTAN 50 MG TAB PO SCH (21:11)
[2024-02-11] MEDS: ALPRAZolam 0.5 MG TAB PO SCH (21:11)
[2024-02-12 06:52] LABS: Basophils % (A) 0 %; Eosinophils % (A) 0 %; HCT 34.7 % (34.0-46.0); HGB 10.8 gm/dL (11.4-16.0); Hypochromasia Moderate; Lymphocytes # (A) 1.7 k/uL (1.0-4.8); Lymphocytes % (A) 14 %; MCH 30.8 pg (25.0-35.0); MCHC 31.1 g/dL (31.0-37.0); MCV 99.2 fL (80.0-100.0); Mean Platelet Volume 6.8; Monocytes # (A) 0.8 k/uL (0-1.0); Monocytes % (A) 6 %; Neutrophils # (A) 9.1 k/uL (1.3-7.7); Neutrophils % (A) 78 %; Platelet Count 375 k/uL (150-450); RDW 14.9 % (11.5-15.5); WBC 11.8 k/uL (3.8-10.6)
[2024-02-12 07:11] LABS: ALT 28 U/L (4-34); AST 26 U/L (14-36); African American GFR (CKD) >90 (>60 ml/min/1.73 sqM); Albumin 3.4 g/dL (3.5-5.0); Alkaline Phosphatase 63 U/L (38-126); Blood Urea Nitrogen 16 mg/dL (7-17); Calcium 8.5 mg/dL (8.4-10.2); Chloride 85 mmol/L (98-107); Glucose 73 mg/dL (74-99); Magnesium 2.1 mg/dL (1.6-2.3); Non-African American GFR(CKD) >90 (>60 ml/min/1.73 sqM); Phosphorus 2.9 mg/dL (2.5-4.5); Potassium 3.2 mmol/L (3.5-5.1); Sodium 135 mmol/L (137-145); Total Bilirubin 0.4 mg/dL (0.2-1.3); Total Protein 5.5 g/dL (6.3-8.2)
[2024-02-12 07:17] LABS: Anion Gap 1 mmol/L
[2024-02-12 07:18] LABS: Carbon Dioxide 49 mmol/L (22-30)
[2024-02-12] MEDS: Bictegrav/Emtricit/Tenofov Ala [Biktarvy 50-200-25 Mg Tablet] 1 EACH T PO SCH (09:55)
[2024-02-12 14:10] VITALS: BMI 17.1
--- NOTE | 2024-02-12 14:34 | P.PN ---
Subjective Progress Note Date: 02/12/24 53-year-old female with a history of severe COPD. The patient is well-known to our service, and has had multiple admissions in this hospital, starting in July. In July, she ended up on mechanical ventilator, could not be weaned, and then up with a tracheostomy, and feeding tube. The feeding tube and the tracheostomy tube, subsequently was removed. The patient comes into the emergency room, on February 09 complaining of increasing shortness of breath. The patient also has a history of CVA, and HIV. The patient is a former smoker, and suffers with anxiety and depression. The patient was admitted to the hospital, and placed on BiPAP. Her BiPAP settings include 16/6, 30%. She seen in room 351. She is not on any IV fluids. Her chest x-ray did not show anything acute. Currently, white count 11.3, hemoglobin 12.8, hematocrit 38.9, and a platelet count of 383,000. PT 9.4, PTT is 21.5. Venous blood gases show a pCO2 of 130, and a pH of 7.23. Sodium 137, potassium 4.3, chloride 86, CO2 49, BUN 22, creatinine 0.34. Glucose is 145. 02/12/2024 patient is being seen for a follow-up. She is calm and comfortable. No significant shortness of breath at rest. She is currently on 2 L of oxygen by nasal cannula with a pulse ox of 92%. She was having some edema lower extremities and this is improved while taking diuretics. The patient remains on bronchodilators. She is on prednisone as part of the burst taper and she is also on Lasix 20 mg IV every 24 hours. She has been placed on a combination of Perforomist and Pulmicort. She has been utilizing Trelegy Ellipta on an outpa tient basis. The patient's WBC count is 11 with a hemoglobin 10.8 and a platelet count of 375. Serum bicarb is at 49 with a sodium level of 135 and a potassium level of 3.2. BUN 16 with a creatinine of 0.28. Objective - Vital Signs Vital signs: Vital Signs Temp 98.1 F 02/12/24 08:00 Pulse 111 H 02/12/24 08:28 Resp 18 02/12/24 08:00 BP 123/81 02/12/24 08:00 Pulse Ox 98 02/12/24 08:00 FiO2 30 02/12/24 00:40 Intake & Output 02/11/24 02/12/24 02/12/24 18:59 06:59 18:59 Intake Total 400 40 356 Output Total 900 Balance -500 40 356 Weight 51 kg Intake: IV 40 40 Invasive Line 1 20 20 Invasive Line 2 20 20 Oral 360 356 Output: Urine 900 Straight 500 Other: Voiding Method Bedside Commode External Catheter # Voids 1 1 - Exam No acute distress, sleeping, currently on 2 L of oxygen by nasal cannula HEENT examination is grossly unremarkable. Mucous membranes are moist. No oral lesions. Neck supple. Full range of motion. No adenopathy thyromegaly or neck vein distention. Cardiovascular examination reveals regular rhythm rate. S1-S2 normal. No S3 or S4. No discernible murmur noted. Lungs reveal inspiratory and expiratory rhonchi and expiratory wheezes. No crackles. Breath sounds equal but diminished throughout. Abdomen soft bowel sounds are heard. No masses or tenderness. Extremities are intact. No cyanosis clubbing or edema. Skin is without rash or lesion. Neurologic examination is brief but nonfocal. - Labs CBC & Chem 7: 02/12/24 05:42 02/12/24 05:42 Labs: Abnormal Lab Results - Last 24 Hours (Table) 02/11/24 02/12/24 02/12/24 Range/Units 11:41 05:42 05:42 WBC 11.8 H (3.8-10.6) k/uL RBC 3.50 L (3.80-5.40) m/uL Hgb 10.8 L (11.4-16.0) gm/dL Neutrophils # 9.1 H (1.3-7.7) k/uL Sodium 135 L (137-145) mmol/L Potassium 3.2 L (3.5-5.1) mmol/L Chloride 85 L (98-107) mmol/L Carbon Dioxide 49 H* (22-30) mmol/L Creatinine 0.28 L (0.52-1.04) mg/dL Glucose 73 L (74-99) mg/dL POC Glucose (mg/dL) 176 H (70-110) mg/dL Total Protein 5.5 L (6.3-8.2) g/dL Albumin 3.4 L (3.5-5.0) g/dL Assessment and Plan Plan: Acute on chronic hypoxemic and hypercapnic respiratory failure, secondary to COPD exacerbation. Clinically stable and the patient is currently off the BiPAP and 2 L of O2 nasal cannula. COPD exacerbation is being managed by combination bronchodilators and steroids. Ongoing tobacco use with nicotine addiction. Multiple hospital admissions, 9 this year alone, since July 2023 History of ventilator dependent respiratory failure with previous tracheostomy and PEG tube placement, with subsequent D cannulization, and PEG tube removal. Severe/stage IV COPD, with an FEV1 that is 22% of predicted. Chronic hypoxemic respiratory failure, on home O2, 21/11. Acquired immunodeficiency syndrome. History of upper lobe pulmonary nodule, being monitored. Increased lower extremity edema, improved with IV Lasix Chronic metabolic alkalosis Plan: Start the patient on Diamox 500 mg every 12 hours x 2 doses Continue IV Lasix Continue bronchodilators and steroids and the patient is currently on prednisone 40 mg p.o. daily as part of the burst taper Perforomist and Pulmicort while in the hospital. The patient is on Trelegy Ellipta on outpatient basis.
[2024-02-12] MEDS ORDERED: Potassium Replacement Protocol 1 EACH MISC MISCELLANE PRN (14:46)
[2024-02-12] MEDS: POTASSIUM CHLORIDE ER 20 MEQ TAB.ER PO SCH (15:41)
--- NOTE | 2024-02-13 01:39 | P.PN ---
Subjective Progress Note Date: 02/12/24 History of present illness; patient is a 53-year-old lady with past medical history significant for COPD, chronic hypoxic respiratory failure presented to the ER because of shortness of breath. Patient has multiple admission in the last 1 week with similar complaint and every time patient has left AGAINST MEDICAL ADVICE. Patient stated that she was all right last night when she started Complaining of shortness of breath. Shortness of breath was present on rest and was worsened with exertion. There was no cough or chest pain. Patient denied any fever or chills. There was no complaint of orthopnea or PND. Patient was complaining of swelling of lower extremities. Patient decided to come to the ER because of this worsening shortness of breath Initial lab work done in the ER showed WBC 11.3, hemoglobin 12.8, platelet count 383, sodium 139, potassium 4.3, carbon psyched 49, BUN 22, creatinine 0.34 AST 29, ALT 40 serum alcohol less than 10 EKG done in the ER showed heart rate of 124 , no ST segment elevation or depression seen, no T-wave inversions seen. Chest x-ray done in the ER showed no acute cardiopulmonary process Patient admitted to internal medicine service 02/12/2024 Patient is seen in follow-up this morning currently on nasal cannula and reports has been wearing the BiPAP at night. Patient reports to feeling extremely anxious and only does a few hours at a time. Patient is continued on a prednisone taper along with [id number] DuoNebs and pulmonary following cl osely. Patient is maintained on IV Lasix daily and also being given a dose of Diamox per pulmonary. Will follow-up on repeat labs and monitor kidney functions and electrolytes closely. Encouraged increase activity as tolerated. Review of systems: Constitutional: No reports of fatigue, fever, or chills Cardiovascular: No reports of chest pain or palpitations Respiratory: reports of shortness of breath with occasional cough GI: No reports of nausea, vomiting, or diarrhea : No reports of dysuria or retention Neurovascular: No reports of weakness or numbness, reports less swelling of the lower extremities All medications have been reviewed PHYSICAL EXAMINATION: GENERAL: The patient is alert and oriented x3, chronically ill looking HEENT: Pupils are round and equally reacting to light. EOMI. No scleral icterus. No conjunctival pallor. Normocephalic, atraumatic. No pharyngeal erythema. No thyromegaly. CARDIOVASCULAR: S1 and S2 muffled PULMONARY: Tachypneic, coarse breath sound bilaterally, expiratory wheeze audible ABDOMEN: Soft, nontender, nondistended, normoactive bowel sounds. No palpable organomegaly. MUSCULOSKELETAL: No joint swelling or deformity. EXTREMITIES: No cyanosis, clubbing. 1+ pitting edema lower extremities bilaterally, slightly improved from yesterday NEUROLOGICAL: Gross neurological examination did not reveal any focal deficits. Diffusely weak SKIN: No rashes. Pale Assessment: Acute on chronic hypoxemic hypercapnic respiratory failure Acute COPD exacerbation Hypertension History of CVA/TIA HIV on antiretroviral therapy. Anxiety/depression/panic disorder Prior history of smoking GI prophylaxis DVT prophylaxis Full code Plan: Patient continues on oxygen via nasal cannula and using BiPAP at night. Pulmonary following and patient has transition to a prednisone taper and is continued on [id number] DuoNeb treatments. Patient is continued on IV Lasix and also being started on Diamox x 2 per pulmonary. Will follow-up on repeat labs to monitor kidney functions closely Patient reports her swelling of her lower extremities has improved Encouraged to increase activity as tolerated. Patient is quite dyspneic while sitting in bed having conversation. Recommend to use BiPAP overnight and will follow-up with pulmonary regarding discharge planning in the next few days. Patient is extremely high risk for readmissions and has had multiple hospitalizations and ER visits secondary to COPD Due to multiple complex medical issues, overall prognosis is guarded The impression and plan of care has been dictated by Deirdre Ashley, Nurse Practitioner as directed. Dr. Waqar MD I have performed a history and examination and MDM of this patient, discussed the same with the dictator, and agree with the dictator's assessment and plan as written ,documented as a scribe. Based on total visit time, I have performed more than 50% of the visit. Objective - Vital Signs Vital signs: Vital Signs Temp 98.1 F 02/12/24 23:00 Pulse 89 02/12/24 23:00 Resp 16 02/12/24 23:00 BP 103/68 02/12/24 23:00 Pulse Ox 97 02/12/24 23:00 FiO2 30 02/12/24 00:40 Intake & Output 02/12/24 02/12/24 02/13/24 06:59 18:59 06:59 Intake Total 40 1108 10 Balance 40 1108 10 Weight 51 kg 51 kg Intake: IV 40 40 10 Invasive Line 1 20 20 10 Invasive Line 2 20 20 Oral 1068 Other: Voiding Method External Catheter External Catheter Toilet # Voids 2 1 # Bowel Movements 1 - Labs CBC & Chem 7: 02/12/24 05:42 02/12/24 05:42 Labs: Abnormal Lab Results - Last 24 Hours (Table) 02/12/24 02/12/24 Range/Units 05:42 05:42 WBC 11.8 H (3.8-10.6) k/uL RBC 3.50 L (3.80-5.40) m/uL Hgb 10.8 L (11.4-16.0) gm/dL Neutrophils # 9.1 H (1.3-7.7) k/uL Sodium 135 L (137-145) mmol/L Potassium 3.2 L (3.5-5.1) mmol/L Chloride 85 L (98-107) mmol/L Carbon Dioxide 49 H* (22-30) mmol/L Creatinine 0.28 L (0.52-1.04) mg/dL Glucose 73 L (74-99) mg/dL Total Protein 5.5 L (6.3-8.2) g/dL Albumin 3.4 L (3.5-5.0) g/dL
[2024-02-13 07:20] LABS: African American GFR (CKD) >90 (>60 ml/min/1.73 sqM); Blood Urea Nitrogen 17 mg/dL (7-17); Calcium 8.5 mg/dL (8.4-10.2); Chloride 96 mmol/L (98-107); Glucose 81 mg/dL (74-99); Magnesium 2.1 mg/dL (1.6-2.3); Non-African American GFR(CKD) >90 (>60 ml/min/1.73 sqM); Sodium 135 mmol/L (137-145)
[2024-02-13 07:26] LABS: Anion Gap 3 mmol/L
[2024-02-13 07:27] LABS: Carbon Dioxide 36 mmol/L (22-30)
--- NOTE | 2024-02-13 14:31 | P.PN ---
Subjective Progress Note Date: 02/13/24 53-year-old female with a history of severe COPD. The patient is well-known to our service, and has had multiple admissions in this hospital, starting in July. In July, she ended up on mechanical ventilator, could not be weaned, and then up with a tracheostomy, and feeding tube. The feeding tube and the tracheostomy tube, subsequently was removed. The patient comes into the emergency room, on February 09 complaining of increasing shortness of breath. The patient also has a history of CVA, and HIV. The patient is a former smoker, and suffers with anxiety and depression. The patient was admitted to the hospital, and placed on BiPAP. Her BiPAP settings include 16/6, 30%. She seen in room 351. She is not on any IV fluids. Her chest x-ray did not show anything acute. Currently, white count 11.3, hemoglobin 12.8, hematocrit 38.9, and a platelet count of 383,000. PT 9.4, PTT is 21.5. Venous blood gases show a pCO2 of 130, and a pH of 7.23. Sodium 137, potassium 4.3, chloride 86, CO2 49, BUN 22, creatinine 0.34. Glucose is 145. 02/12/2024 patient is being seen for a follow-up. She is calm and comfortable. No significant shortness of breath at rest. She is currently on 2 L of oxygen by nasal cannula with a pulse ox of 92%. She was having some edema lower extremities and this is improved while taking diuretics. The patient remains on bronchodilators. She is on prednisone as part of the burst taper and she is also on Lasix 20 mg IV every 24 hours. She has been placed on a combination of Perforomist and Pulmicort. She has been utilizing Trelegy Ellipta on an outpa tient basis. The patient's WBC count is 11 with a hemoglobin 10.8 and a platelet count of 375. Serum bicarb is at 49 with a sodium level of 135 and a potassium level of 3.2. BUN 16 with a creatinine of 0.28. 02/13/2024, the patient is feeling better. No significant complaints. The metabolic alkalosis has improved and the patient serum bicarb is down to 36. The rest of electrolytes are all within normal limits. No significant shortness of breath. No significant edema lower extremities. WBC count 11.8 with hemoglobin 10.8 and a platelet count of 375. The patient remains on bronchodila tors. The patient remains on prednisone burst taper starting with 40 mg p.o. daily. Currently she is on 2 L of oxygen by nasal cannula with a pulse ox of 98%. Rest of the medications remain unchanged. Objective - Vital Signs Vital signs: Vital Signs Temp 98.6 F 02/13/24 10:45 Pulse 106 H 02/13/24 10:45 Resp 22 02/13/24 08:06 BP 108/74 02/13/24 10:45 Pulse Ox 98 02/13/24 10:45 FiO2 30 02/13/24 04:41 Intake & Output 02/12/24 02/13/24 02/13/24 18:59 06:59 18:59 Intake Total 1108 10 170 Balance 1108 10 170 Weight 51 kg 52.5 kg Intake: IV 40 10 20 Invasive Line 1 20 10 10 Invasive Line 2 20 10 Oral 1068 150 Other: Voiding Method External Catheter Toilet Toilet # Voids 2 1 1 # Bowel Movements 1 1 - Exam No acute distress, sleeping, currently on 2 L of oxygen by nasal cannula HEENT examination is grossly unremarkable. Mucous membranes are moist. No oral lesions. Neck supple. Full range of motion. No adenopathy thyromegaly or neck vein distention. Cardiovascular examination reveals regular rhythm rate. S1-S2 normal. No S3 or S4. No discernible murmur noted. Lungs reveal inspiratory and expiratory rhonchi and expiratory wheezes. No crackles. Breath sounds equal but diminished throughout. Abdomen soft bowel sounds are heard. No masses or tenderness. Extremities are intact. No cyanosis clubbing or edema. Skin is without rash or lesion. Neurologic examination is brief but nonfocal. - Labs CBC & Chem 7: 02/12/24 05:42 02/13/24 05:25 Labs: Abnormal Lab Results - Last 24 Hours (Table) 02/13/24 Range/Units 05:25 Sodium 135 L (137-145) mmol/L Chloride 96 L (98-107) mmol/L Carbon Dioxide 36 H (22-30) mmol/L Creatinine 0.39 L (0.52-1.04) mg/dL Assessment and Plan Plan: Acute on chronic hypoxemic and hypercapnic respiratory failure, secondary to COPD exacerbation. Clinically stable and the patient is currently off the BiPAP and 2 L of O2 nasal cannula. COPD exacerbation is being managed by combination bronchodilators and steroids. Ongoing tobacco use with nicotine addiction. Multiple hospital admissions, 9 this year alone, since July 2023 History of ventilator dependent respiratory failure with previous tracheostomy and PEG tube placement, with subsequent D cannulization, and PEG tube removal. Severe/stage IV COPD, with an FEV1 that is 22% of predicted. Chronic hypoxemic respiratory failure, on home O2, 21/11. Acquired immunodeficiency syndrome. History of upper lobe pulmonary nodule, being monitored. Increased lower extremity edema, improved with IV Lasix Chronic metabolic alkalosis, improved Plan: Overall respiratory status is stable Metabolic alkalosis improved Continue IV Lasix for another 24 hours and switch this patient to oral Lasix 40 mg p.o. daily. Continue bronchodilators and steroids and the patient is currently on prednisone 40 mg p.o. daily as part of the burst taper Perforomist and Pulmicort while in the hospital. The patient is on Trelegy Ellipta on outpatient basis.
--- NOTE | 2024-02-13 17:39 | XR ---
EXAMINATION TYPE: XR chest 1V portable DATE OF EXAM: 02/13/2024 5:23 PM CLINICAL INDICATION: Female, 53 years old with history of shortness of breath; [facility] COMPARISON: Chest radiographs from 02/10/2024 TECHNIQUE: XR chest 1V portable Frontal view of the chest. FINDINGS: Lungs/Pleura: There is no evidence of pleural effusion, focal consolidation, or pneumothorax. Pulmonary vascularity: Unremarkable. Heart/mediastinum: Cardiomediastinal silhouette is unremarkable. Musculoskeletal: No acute osseous pathology. Other findings: None IMPRESSION: No acute cardiopulmonary disease/process. [facility], , 02/13/2024 5:36 PM
[2024-02-13] MEDS: NICOTINE 21MG/24HR PATCH TRANSDERM SCH (23:27)
--- NOTE | 2024-02-14 05:41 | P.PN ---
Subjective Progress Note Date: 02/13/24 History of present illness; patient is a 53-year-old lady with past medical history significant for COPD, chronic hypoxic respiratory failure presented to the ER because of shortness of breath. Patient has multiple admission in the last 1 week with similar complaint and every time patient has left AGAINST MEDICAL ADVICE. Patient stated that she was all right last night when she started Complaining of shortness of breath. Shortness of breath was present on rest and was worsened with exertion. There was no cough or chest pain. Patient denied any fever or chills. There was no complaint of orthopnea or PND. Patient was complaining of swelling of lower extremities. Patient decided to come to the ER because of this worsening shortness of breath Initial lab work done in the ER showed WBC 11.3, hemoglobin 12.8, platelet count 383, sodium 139, potassium 4.3, carbon psyched 49, BUN 22, creatinine 0.34 AST 29, ALT 40 serum alcohol less than 10 EKG done in the ER showed heart rate of 124 , no ST segment elevation or depression seen, no T-wave inversions seen. Chest x-ray done in the ER showed no acute cardiopulmonary process Patient admitted to internal medicine service 02/12/2024 Patient is seen in follow-up this morning currently on nasal cannula and reports has been wearing the BiPAP at night. Patient reports to feeling extremely anxious and only does a few hours at a time. Patient is continued on a prednisone taper along with [id number]-rbqix DuoNebs and pulmonary following cl osely. Patient is maintained on IV Lasix daily and also being given a dose of Diamox per pulmonary. Will follow-up on repeat labs and monitor kidney functions and electrolytes closely. Encouraged increase activity as tolerated. 02/13/2024 Patient is seen in follow-up today currently on 2 L and reports has been using BiPAP for few hours at night. Patient is slightly improved although continues to be dyspneic and mildly tacky and will continue current regimen and discuss further with pulmonary regarding possible discharge in the next 24 hours. Patient is afebrile denies any chest pain or palpitations. Patient reports her swelling has significantly improved and she is able to walk without the walker around. If Review of systems: Constitutional: No reports of fatigue, fever, or chills Cardiovascular: No reports of chest pain or palpitations Respiratory: reports of shortness of breath with occasional cough GI: No reports of nausea, vomiting, or diarrhea : No reports of dysuria or retention Neurovascular: No reports of weakness or numbness, reports less swelling of the lower extremities All medications have been reviewed PHYSICAL EXAMINATION: GENERAL: The patient is alert and oriented x3, chronically ill looking HEENT: Pupils are round and equally reacting to light. EOMI. No scleral icterus. No conjunctival pallor. Normocephalic, atraumatic. No pharyngeal erythema. No thyromegaly. CARDIOVASCULAR: S1 and S2 muffled PULMONARY: Tachypneic, coarse breath sound bilaterally, expiratory wheeze audible ABDOMEN: Soft, nontender, nondistended, normoactive bowel sounds. No palpable organomegaly. MUSCULOSKELETAL: No joint swelling or deformity. EXTREMITIES: No cyanosis, clubbing. 1+ pitting edema lower extremities bilaterally, slightly improved from yesterday NEUROLOGICAL: Gross neurological examination did not reveal any focal deficits. Diffusely weak SKIN: No rashes. Pale Assessment: Acute on chronic hypoxemic hypercapnic respiratory failure Acute COPD exacerbation Hypertension History of CVA/TIA HIV on antiretroviral therapy. Anxiety/depression/panic disorder Prior history of smoking GI prophylaxis DVT prophylaxis Full code Plan: Patient continues on oxygen via nasal cannula and using BiPAP at night. Pulmonary following and patient has transition to a prednisone taper and is continued on [id number] DuoNeb treatments. Patient is continued on IV Lasix and also being started on Diamox x 2 per pulmonary. Patient reports her swelling of her lower extremities has improved Encouraged to increase activity as tolerated. Patient is quite dyspneic while sitting in bed having conversation. Recommend to use BiPAP overnight and will follow-up with pulmonary regarding discharge planning in the next day or so. Patient is extremely high risk for readmissions and has had multiple hospitalizations and ER visits secondary to COPD Due to multiple complex medical issues, overall prognosis is guarded The impression and plan of care has been dictated by Deirdre Ashley, Nurse Practitioner as directed. Dr. Waqar MD I have performed a history and examination and MDM of this patient, discussed the same with the dictator, and agree with the dictator's assessment and plan as written ,documented as a scribe. Based on total visit time, I have performed more than 50% of the visit. Objective - Vital Signs Vital signs: Vital Signs Temp 98.6 F 02/14/24 00:20 Pulse 94 02/14/24 04:20 Resp 22 02/14/24 04:20 BP 97/63 02/14/24 04:20 Pulse Ox 98 02/14/24 04:20 FiO2 30 02/14/24 03:55 Intake & Output 02/13/24 02/13/24 02/14/24 06:59 18:59 06:59 Intake Total 10 470 Balance 10 470 Weight 52.5 kg Intake: IV 10 20 Invasive Line 1 10 10 Invasive Line 2 10 Oral 450 Other: Voiding Method Toilet Toilet Toilet # Voids 1 2 1 # Bowel Movements 1 1 - Labs CBC & Chem 7: 02/12/24 05:42 02/13/24 05:25 Labs: Abnormal Lab Results - Last 24 Hours (Table) 02/13/24 Range/Units 05:25 Sodium 135 L (137-145) mmol/L Chloride 96 L (98-107) mmol/L Carbon Dioxide 36 H (22-30) mmol/L Creatinine 0.39 L (0.52-1.04) mg/dL
[2024-02-14] MEDS ORDERED: SYMBICORT 160-4.5 MCG INHALER INHALATION SCH ×3 (08:00→20:00)
[2024-02-14 11:53] VITALS: RESP 22
[2024-02-14] MEDS: atenoloL 50 MG TAB PO SCH (11:53)
--- NOTE | 2024-02-14 14:02 | P.DS ---
Providers Date of admission: 02/11/24 02:46 Expected date of discharge: 02/14/24 Attending physician: Cheli Zavaleta Consults: 02/11/24 02:46 Consult Physician Routine Consulting Provider: Davin Pro Reason/Comments: copd Do you want consulting provider notified?: Yes Primary care physician: Francisco Harvey Hospital Course: Final diagnosis Acute on chronic hypoxemic hypercapnic respiratory failure Acute COPD exacerbation Hypertension Sinus tachycardia, being started on atenolol History of CVA/TIA HIV on antiretroviral therapy. Anxiety/depression/panic disorder Prior history of smoking GI prophylaxis DVT prophylaxis Full code Discharge disposition Patient is being discharged in a stable condition with guarded prognosis to home with home care. Patient will follow-up with Dr. Harvey in the outpatient setting upon discharge. Patient is to continue with prednisone taper and close outpatient follow-up with pulmonary as scheduled. Total time taken is greater than 35 minutes. Hospital course This is a 53-year-old female who was recently admitted with increased shortness of breath with acute on chronic COPD exacerbation and closely monitored. Pulmonary following maintained on BiPAP at night and nasal cannula during the day with [id number]-zhm-ghtoi DuoNebs along with oral steroids. Patient showing improvement and swelling of lower extremities has improved and patient has been cleared by pulmonary for discharge. Patient reports to feeling much improved and would like to go home. Patient has been instructed to follow-up with pulmonary outpatient as well as primary care provider. Continue to avoid tobacco use and exposure on discharge. Currently no reports of chest pain, shortness of breath, or palpitations. Patient is afebrile. No reports of nausea or vomiting and patient is tolerating diet. Patient will be discharged home today. High risk for readmissions given patient's extensive COPD. Physical exam: Gen: This is a 53-year-old female who is awake, alert and oriented x 3, well- developed, ill-appearing, elderly appearing, thin built HEENT: Head is atraumatic, normocephalic. Pupils equal, round. Sclerae is anicteric. NECK: Supple. No JVD. No lymphadenopathy. No thyromegaly. LUNGS: Diminished breath sounds bilaterally with coarse scattered rhonchi. No intercostal retractions. HEART: S1, S2 are muffled, sinus tachy on the monitor ABDOMEN: Soft. Thin. Bowel sounds are present. No masses. No tenderness. EXTREMITIES: No pedal edema. No calf tenderness. Lower extremity edema has significantly improved NEUROLOGICAL: Patient is awake, alert and oriented x3. Cranial nerves 2 through 12 are grossly intact. Please refer to medication reconciliation sheet for a list of medications. The impression and plan of care has been dictated by Deirdre Ashley, Nurse Practitioner as directed. Dr. Waqar MD I have performed a history and examination and MDM of this patient, discussed the same with the dictator, and agree with the dictator's assessment and plan as written ,documented as a scribe. Based on total visit time, I have performed more than 50% of the visit. Patient Condition at Discharge: Fair Plan - Discharge Summary Discharge Rx Participant: Yes New Discharge Prescriptions: New predniSONE See Taper PO DIRECTED #30 tab atenoloL [Tenormin] 50 mg PO DAILY #30 tab Wxihzjqc-Zfcaawipnm-Xwtd Oint [Triple Antibiotic Ointment] 1 applic TOPICAL BID PRN each PRN Reason: Skin Irritation Continue Albuterol Sulfate [Albuterol Sulfate Hfa] 2 puff INHALATION RT-Q4H PRN PRN Reason: Shortness Of Breath Ipratropium-Albuterol Nebulize [Duoneb 0.5 mg-3 mg/3 ml Soln] 3 ml INHALATION RT-Q4H PRN PRN Reason: Shortness Of Breath Famotidine [Pepcid] 20 mg PO BID ALPRAZolam [Xanax] 0.5 mg PO BID Ibuprofen [Motrin Ib] 200 - 400 mg PO Q6H PRN PRN Reason: Pain Or Fever > 100.5 Fluticasone Propionate [Flonase Allergy Relief] 1 spray EA NOSTRIL DAILY PRN PRN Reason: Congestion Fluticasone/Umeclidin/Vilanter [Trelegy Ellipta 200-62.5-25] 1 puff INHALATION RT-DAILY Nicotine 14Mg/24Hr Patch [Habitrol] 1 patch TRANSDERM DAILY Ipratropium-Albuterol Nebulize [Duoneb 0.5 mg-3 mg/3 ml Soln] 3 ml INHALATION RT-QID each Bictegrav/Emtricit/Tenofov Ala [Biktarvy 50-200-25 mg Tablet] 1 tab PO DAILY Ondansetron [Zofran] 4 mg PO BID PRN PRN Reason: Nausea Simethicone [Gas-X] 125 - 250 mg PO ACHS PRN PRN Reason: gas Diurex 2 tab PO Q4H PRN MDD 6 tabs PRN Reason: weight gain/bloating Mirtazapine [Remeron] 15 mg PO HS Losartan [Cozaar] 50 mg PO BID Budesonide-Formot 160-4.5 Mcg [Symbicort 160-4.5 Mcg Inhaler] 2 puff INHALATION RT-BID #1 each Discontinued amLODIPine [Norvasc] 10 mg PO DAILY Discharge Medication List Albuterol Sulfate [Albuterol Sulfate Hfa] 2 puff INHALATION RT-Q4H PRN 03/14/22 [History] Bictegrav/Emtricit/Tenofov Ala [Biktarvy 50-200-25 mg Tablet] 1 tab PO DAILY 08/10/23 [History] Ipratropium-Albuterol Nebulize [Duoneb 0.5 mg-3 mg/3 ml Soln] 3 ml INHALATION RT-Q4H PRN 08/10/23 [History] Famotidine [Pepcid] 20 mg PO BID 09/30/23 [History] Ondansetron [Zofran] 4 mg PO BID PRN 11/05/23 [History] ALPRAZolam [Xanax] 0.5 mg PO BID 11/27/23 [History] Diurex 2 tab PO Q4H PRN MDD 6 tabs 11/27/23 [History] Fluticasone Propionate [Flonase Allergy Relief] 1 spray EA NOSTRIL DAILY PRN 11/27/23 [History] Ibuprofen [Motrin Ib] 200 - 400 mg PO Q6H PRN 11/27/23 [History] Simethicone [Gas-X] 125 - 250 mg PO ACHS PRN 11/27/23 [History] Fluticasone/Umeclidin/Vilanter [Trelegy Ellipta 200-62.5-25] 1 puff INHALATION RT-DAILY 01/04/24 [History] Mirtazapine [Remeron] 15 mg PO HS 01/04/24 [History] Budesonide-Formot 160-4.5 Mcg [Symbicort 160-4.5 Mcg Inhaler] 2 puff INHALATION RT-BID #1 each 01/21/24 [Rx] Ipratropium-Albuterol Nebulize [Duoneb 0.5 mg-3 mg/3 ml Soln] 3 ml INHALATION RT-QID each 01/21/24 [Rx] Losartan [Cozaar] 50 mg PO BID 01/21/24 [History] Nicotine 14Mg/24Hr Patch [Habitrol] 1 patch TRANSDERM DAILY 01/21/24 [History] Bdnpyhlr-Nlumhyddxe-Qevt Oint [Triple Antibiotic Ointment] 1 applic TOPICAL BID PRN each 02/14/24 [Rx] atenoloL [Tenormin] 50 mg PO DAILY #30 tab 02/14/24 [Rx] predniSONE See Taper PO DIRECTED #30 tab 02/14/24 [Rx] Follow up Appointment(s)/Referral(s): [facility], [NON-STAFF] - (home health did not answer, please call when you arrive home) Francisco Harvey [Primary Care Provider] - 1-2 days (office did not answer please call and make appointment ) Patti Portillo MD [STAFF PHYSICIAN] - 02/20/24 2:00 pm (appointment with Dr. Pro ) Patient Instructions/Handouts: ARDS (Acute Respiratory Distress Syndrome) (DC), COPD (Chronic Obstructive Pulmonary Disease) (DC), Hypoxia (GEN) Activity/Diet/Wound Care/Special Instructions: Activity limited until follow-up Follow-up with pulmonary outpatient Continue taking medications as prescribed Follow-up with infectious disease outpatient Discharge Disposition: HOME WITH HOME HEALTH SERVICES
[2024-02-14 15:31] VITALS: BP 107/76; PULSE 104; TEMP 99
--- NOTE | 2024-02-14 16:16 | P.PN ---
Subjective Progress Note Date: 02/14/24 53-year-old female with a history of severe COPD. The patient is well-known to our service, and has had multiple admissions in this hospital, starting in July. In July, she ended up on mechanical ventilator, could not be weaned, and then up with a tracheostomy, and feeding tube. The feeding tube and the tracheostomy tube, subsequently was removed. The patient comes into the emergency room, on February 09 complaining of increasing shortness of breath. The patient also has a history of CVA, and HIV. The patient is a former smoker, and suffers with anxiety and depression. The patient was admitted to the hospital, and placed on BiPAP. Her BiPAP settings include 16/6, 30%. She seen in room 351. She is not on any IV fluids. Her chest x-ray did not show anything acute. Currently, white count 11.3, hemoglobin 12.8, hematocrit 38.9, and a platelet count of 383,000. PT 9.4, PTT is 21.5. Venous blood gases show a pCO2 of 130, and a pH of 7.23. Sodium 137, potassium 4.3, chloride 86, CO2 49, BUN 22, creatinine 0.34. Glucose is 145. 02/12/2024 patient is being seen for a follow-up. She is calm and comfortable. No significant shortness of breath at rest. She is currently on 2 L of oxygen by nasal cannula with a pulse ox of 92%. She was having some edema lower extremities and this is improved while taking diuretics. The patient remains on bronchodilators. She is on prednisone as part of the burst taper and she is also on Lasix 20 mg IV every 24 hours. She has been placed on a combination of Perforomist and Pulmicort. She has been utilizing Trelegy Ellipta on an outpa tient basis. The patient's WBC count is 11 with a hemoglobin 10.8 and a platelet count of 375. Serum bicarb is at 49 with a sodium level of 135 and a potassium level of 3.2. BUN 16 with a creatinine of 0.28. 02/13/2024, the patient is feeling better. No significant complaints. The metabolic alkalosis has improved and the patient serum bicarb is down to 36. The rest of electrolytes are all within normal limits. No significant shortness of breath. No significant edema lower extremities. WBC count 11.8 with hemoglobin 10.8 and a platelet count of 375. The patient remains on bronchodila tors. The patient remains on prednisone burst taper starting with 40 mg p.o. daily. Currently she is on 2 L of oxygen by nasal cannula with a pulse ox of 98%. Rest of the medications remain unchanged. 02/14/2024, the patient is being seen for a follow-up. The patient is doing well. No specific complaints. She is having some sinus tachycardia and the patient will be started on atenolol 50 mg p.o. daily. She is on prednisone burst taper. She is on Trelegy Ellipta at home and Symbicort here in the hospital along with DuoNeb nebulizer treatments [id number]. Oxygenation is stable and the patient is currently on 2 L of oxygen by nasal cannula with a pulse ox of 97%. She is ambulating. No other specific complaints. Objective - Vital Signs Vital signs: Vital Signs Temp 98.5 F 02/14/24 10:48 Pulse 114 H 02/14/24 11:09 Resp 20 02/14/24 10:48 BP 126/62 02/14/24 10:48 Pulse Ox 99 02/14/24 10:48 FiO2 30 02/14/24 03:55 Intake & Output 02/13/24 02/14/24 02/14/24 18:59 06:59 18:59 Intake Total 470 210 Balance 470 210 Weight 53.5 kg Intake: IV 20 30 Invasive Line 1 10 Invasive Line 2 10 30 Oral 450 180 Other: Voiding Method Toilet Toilet Toilet # Voids 2 1 1 # Bowel Movements 1 - Exam No acute distress, sleeping, currently on 2 L of oxygen by nasal cannula HEENT examination is grossly unremarkable. Mucous membranes are moist. No oral lesions. Neck supple. Full range of motion. No adenopathy thyromegaly or neck vein distention. Cardiovascular examination reveals regular rhythm rate. S1-S2 normal. No S3 or S4. No discernible murmur noted. Lungs reveal inspiratory and expiratory rhonchi and expiratory wheezes. No crackles. Breath sounds equal but diminished throughout. Abdomen soft bowel sounds are heard. No masses or tenderness. Extremities are intact. No cyanosis clubbing or edema. Skin is without rash or lesion. Neurologic examination is brief but nonfocal. - Labs CBC & Chem 7: 02/12/24 05:42 02/13/24 05:25 Assessment and Plan Plan: Acute on chronic hypoxemic and hypercapnic respiratory failure, secondary to COPD exacerbation. Clinically stable and the patient is currently off the BiPAP and 2 L of O2 nasal cannula. COPD exacerbation is being managed by combination bronchodilators and steroids. Ongoing tobacco use with nicotine addiction. Multiple hospital admissions, 9 this year alone, since July 2023 History of ventilator dependent respiratory failure with previous tracheostomy and PEG tube placement, with subsequent D cannulization, and PEG tube removal. Severe/stage IV COPD, with an FEV1 that is 22% of predicted. Chronic hypoxemic respiratory failure, on home O2, 21/11. Acquired immunodeficiency syndrome. History of upper lobe pulmonary nodule, being monitored. Increased lower extremity edema, improved with IV Lasix Chronic metabolic alkalosis, improved Sinus tachycardia Plan: Start the patient on atenolol 50 mg p.o. daily mitral sinus tachycardia Overall respiratory status is stable Metabolic alkalosis improved Cswitch this patient to oral Lasix 40 mg p.o. daily. Continue bronchodilators and steroids and the patient is currently on prednisone 40 mg p.o. daily as part of the burst taper Perforomist and Pulmicort while in the hospital. The patient is on Trelegy Ellipta on outpatient basis. Possible discharge home on home O2. Smoking cessation counseling was done.
[2024-02-15] MEDS ORDERED: MD COMMUNICATION TO PHARMACY 1 EACH MISC PO SCH (09:00)
== END 2024-02-14 16:37 | disposition home health service (06) | DRG 189 ==
LOC: EC 23:28 → 3SCARD 02-11 02:46
PROVIDERS: ADMIT Hospitalist; ATTEND Hospitalist
PROC: 5A09357 Assistance with Respiratory Ventilation, Less than 24 Consecutive Hours, Continuous Positive Airway Pressure (ICD-10-PCS; principal; 2024-02-10)
DX: J96.21 Acute and chronic respiratory failure with hypoxia (principal); J44.1 Chronic obstructive pulmonary disease with (acute) exacerbation; B20 Human immunodeficiency virus [HIV] disease; E87.3 Alkalosis; J96.22 Acute and chronic respiratory failure with hypercapnia; Z99.81 Dependence on supplemental oxygen; I10 Essential (primary) hypertension; F41.0 Panic disorder [episodic paroxysmal anxiety]; F17.200 Nicotine dependence, unspecified, uncomplicated; F32.A Depression, unspecified; R91.1 Solitary pulmonary nodule; Z86.73 Personal history of transient ischemic attack (TIA), and cerebral infarction without residual deficits; Z79.899 Other long term (current) drug therapy; Z79.51 Long term (current) use of inhaled steroids; Z79.52 Long term (current) use of systemic steroids; Z88.0 Allergy status to penicillin
CPT/HCPCS: 36415; 71045; 80048; 80053; 80320; 82803; 83605; 83735; 83880; 84100; 84484; 85025; 85610; 85730; 93005; 94640; 94660; 94760; 96374; 96375; 99291

== ENCOUNTER 2024-02-18 00:28 | Inpatient (IN) | payer MEDICARE, OTHER ==
[2024-02-18 01:22] LABS: Basophils % (A) 0 %; Eosinophils % (A) 0 %; HCT 38.8 % (34.0-46.0); HGB 11.8 gm/dL (11.4-16.0); Hypochromasia Marked; Lymphocytes # (A) 1.5 k/uL (1.0-4.8); Lymphocytes % (A) 16 %; MCH 31.1 pg (25.0-35.0); MCHC 30.5 g/dL (31.0-37.0); Macrocytosis Slight; Mean Platelet Volume 6.6; Monocytes # (A) 0.6 k/uL (0-1.0); Monocytes % (A) 7 %; Neutrophils # (A) 7.1 k/uL (1.3-7.7); Neutrophils % (A) 75 %; Platelet Count 376 k/uL (150-450); RBC 3.81 m/uL (3.80-5.40); WBC 9.5 k/uL (3.8-10.6)
--- NOTE | 2024-02-18 01:41 | XR ---
EXAMINATION TYPE: XR chest 1V portable DATE OF EXAM: 02/18/2024 COMPARISON: Chest x-ray 5 days earlier HISTORY: Dyspnea TECHNIQUE: Single frontal view of the chest is obtained. FINDINGS: There is no suspicious new focal air space opacity, pleural effusion, or pneumothorax seen . Overlying EKG leads are redemonstrated. The cardiac silhouette size is within normal limits. The osseous structures are intact. IMPRESSION: No acute process. No significant change from prior. [facility], , 02/18/2024 1:38 AM
[2024-02-18 01:45] LABS: VBG PH 7.28 (7.31-7.41)
[2024-02-18 01:46] LABS: INR 0.8 (<1.2); Partial Thromboplastin Time 22.5 sec (22.0-30.0); Prothrombin Time 9.3 sec (10.0-12.5); VBG PCO2 >98 mmHg (37-51)
[2024-02-18 01:47] LABS: ALT 40 U/L (4-34); AST 27 U/L (14-36); African American GFR (CKD) >90 (>60 ml/min/1.73 sqM); Albumin 4.1 g/dL (3.5-5.0); Alkaline Phosphatase 78 U/L (38-126); Blood Urea Nitrogen 19 mg/dL (7-17); Chloride 89 mmol/L (98-107); Glucose 90 mg/dL (74-99); Non-African American GFR(CKD) >90 (>60 ml/min/1.73 sqM); Potassium 4.7 mmol/L (3.5-5.1); Sodium 139 mmol/L (137-145); Total Bilirubin 0.4 mg/dL (0.2-1.3); Total Protein 6.6 g/dL (6.3-8.2)
[2024-02-18 01:54] LABS: Anion Gap 1 mmol/L
[2024-02-18 01:55] LABS: NT-Pro-B-Type Natriuretic Pept 281 pg/mL
[2024-02-18 01:58] LABS: Carbon Dioxide 49 mmol/L (22-30)
--- NOTE | 2024-02-18 02:36 | ED ---
SOB HPI - General Chief Complaint: Shortness of Breath Stated Complaint: TK Time Seen by Provider: 02/18/24 00:34 Source: patient, EMS Mode of arrival: EMS - History of Present Illness Initial Comments: This patient is a 53-year-old woman with history of severe COPD who presents with complaint of worsening shortness of breath over the last few hours. She denies fever or chills. No change in her baseline cough. No chest pain. Patient does complain of anxiety stating that she is out of Xanax. No leg pain or swelling. No change in urination or bowel movements. MD Complaint: shortness of breath -: hour(s) Severity scale (1-10): 0 Consistency: constant Improves With: nothing Worsens With: nothing Known History Of: COPD Associated Symptoms: other (Anxiety) Treatments Prior to Arrival: oxygen, bronchodilator, NIPPV - Related Data Home Oxygen Therapy: Yes Home Medications Medication Instructions Recorded Confirmed Albuterol Sulfate [Albuterol 2 puff INHALATION RT-Q4H PRN 03/14/22 03/03/24 Sulfate Hfa] Bictegrav/Emtricit/Tenofov Ala 1 tab PO DAILY 08/10/23 03/03/24 [Biktarvy 50-200-25 mg Tablet] Ipratropium-Albuterol Nebulize 3 ml INHALATION RT-Q4H PRN 08/10/23 03/03/24 [Duoneb 0.5 mg-3 mg/3 ml Soln] Famotidine [Pepcid] 20 mg PO BID 09/30/23 03/03/24 Ondansetron [Zofran] 4 mg PO BID PRN 11/05/23 03/03/24 Fluticasone Propionate [Flonase 1 spray EA NOSTRIL DAILY PRN 11/27/23 03/03/24 Allergy Relief] Ibuprofen [Motrin Ib] 200 - 400 mg PO Q6H PRN 11/27/23 03/03/24 Simethicone [Gas-X] 125 - 250 mg PO ACHS PRN 11/27/23 03/03/24 Fluticasone/Umeclidin/Vilanter 1 puff INHALATION RT-DAILY 01/04/24 03/03/24 [Trelegy Ellipta 200-62.5-25] Mirtazapine [Remeron] 15 mg PO HS 01/04/24 03/03/24 Losartan [Cozaar] 50 mg PO BID 01/21/24 03/03/24 Nicotine 14Mg/24Hr Patch [Habitrol] 1 patch TRANSDERM DAILY 01/21/24 03/03/24 ALPRAZolam [Xanax] 0.5 - 1 mg PO Q8H PRN 03/03/24 03/03/24 HYDROcodone/APAP 5-325MG [Daphne 1 tab PO Q6HR PRN 03/03/24 03/03/24 5-325] hydroCHLOROthiazide 12.5 mg PO DIRECTED 03/03/24 03/03/24 Previous Rx's Medication Instructions Recorded Ipratropium-Albuterol Nebulize 3 ml INHALATION RT-QID each 01/21/24 [Duoneb 0.5 mg-3 mg/3 ml Soln] Svroabrg-Srqfxyhqum-Yywn Oint 1 applic TOPICAL BID PRN each 02/14/24 [Triple Antibiotic Ointment] atenoloL [Tenormin] 50 mg PO DAILY #30 tab 02/14/24 Acetaminophen Tab [Tylenol] 650 mg PO Q4HR PRN tab 02/21/24 predniSONE See Taper PO DIRECTED #30 tab 02/21/24 Allergies Allergy/AdvReac Type Severity Reaction Status Date / Time Penicillins Allergy Anaphylaxis Verified 03/03/24 14:09 Milk Containing Products AdvReac Nausea & Verified 03/03/24 14:09 (Dairy) Vomiting & Diarrhea Review of Systems ROS Statement: Those systems with pertinent positive or pertinent negative responses have been documented in the HPI. ROS Other: All systems not noted in ROS Statement are negative. Constitutional: Denies: fever, chills Respiratory: Reports: as per HPI, cough, dyspnea. Denies: hemoptysis Cardiovascular: Denies: chest pain, palpitations, orthopnea, edema, syncope Gastrointestinal: Denies: abdominal pain, vomiting, diarrhea Genitourinary: Denies: dysuria, hematuria Musculoskeletal: Denies: back pain Skin: Denies: rash Neurological: Denies: headache, weakness, numbness Psychiatric: Reports: anxiety Past Medical History Past Medical History: Asthma, Blood Disorder, COPD, CVA/TIA Additional Past Medical History / Comment(s): HIV History of Any Multi-Drug Resistant Organisms: None Reported Past Surgical History: No Surgical Hx Reported Additional Past Surgical History / Comment(s): peg and tracheostomy reversal 2023 Past Anesthesia/Blood Transfusion Reactions: No Reported Reaction Past Psychological History: Anxiety, Depression, Panic Disorder Smoking Status: Former smoker Past Alcohol Use History: None Reported, Occasional Past Drug Use History: None Reported - Past Family History Mother History Unknown: Yes General Exam General appearance: alert, in distress Head exam: Present: atraumatic, normocephalic Eye exam: Present: normal appearance. Absent: scleral icterus, conjunctival injection Neck exam: Present: normal inspection Respiratory exam: Present: respiratory distress, wheezes, accessory muscle use, decreased breath sounds. Absent: rales, rhonchi, stridor, chest wall tenderness Cardiovascular Exam: Present: regular rate, normal rhythm, normal heart sounds. Absent: systolic murmur, diastolic murmur, rubs, gallop GI/Abdominal exam: Present: soft. Absent: distended, tenderness, guarding, rebound, rigid, mass Extremities exam: Present: normal inspection, normal capillary refill. Absent: pedal edema, calf tenderness Back exam: Present: normal inspection. Absent: CVA tenderness (R), CVA te nderness (L) Neurological exam: Present: alert Skin exam: Present: warm, dry, intact, normal color. Absent: rash Course Vital Signs 02/18/24 02/18/24 02/18/24 00:29 00:38 01:30 Temperature 98.1 F Pulse Rate 101 H 58 L Pulse Rate [ Pulse Oximetery ] Respiratory 20 20 Rate Blood Pressure 123/53 97/63 O2 Sat by Pulse 100 95 Oximetry Fraction of 100 Inspired Oxygen (FIO2) 02/18/24 02/18/24 02/18/24 02:35 02:57 03:35 Temperature Pulse Rate 80 87 Pulse Rate [ Pulse Oximetery ] Respiratory 20 18 Rate Blood Pressure 120/77 97/64 O2 Sat by Pulse 99 100 Oximetry Fraction of 70 Inspired Oxygen (FIO2) 02/18/24 02/18/24 02/18/24 04:28 05:35 06:40 Temperature Pulse Rate 75 Pulse Rate [ Pulse Oximetery ] Respiratory 22 Rate Blood Pressure 104/63 O2 Sat by Pulse 100 Oximetry Fraction of 50 40 Inspired Oxygen (FIO2) 02/18/24 02/18/24 02/18/24 06:58 07:19 08:03 Temperature Pulse Rate 91 96 92 Pulse Rate [ Pulse Oximetery ] Respiratory 18 22 Rate Blood Pressure 96/66 94/55 O2 Sat by Pulse 98 97 Oximetry Fraction of Inspired Oxygen (FIO2) 02/18/24 02/18/24 02/18/24 08:05 08:15 09:00 Temperature Pulse Rate 86 90 Pulse Rate [ Pulse Oximetery ] Respiratory 28 H Rate Blood Pressure 100/60 O2 Sat by Pulse 96 Oximetry Fraction of 40 Inspired Oxygen (FIO2) 02/18/24 02/18/24 02/18/24 11:00 11:24 11:27 Temperature Pulse Rate 100 100 Pulse Rate [ Pulse Oximetery ] Respiratory 28 H Rate Blood Pressure 97/50 O2 Sat by Pulse 100 Oximetry Fraction of 40 Inspired Oxygen (FIO2) 02/18/24 02/18/24 02/18/24 11:29 11:33 12:00 Temperature Pulse Rate 98 90 Pulse Rate [ Pulse Oximetery ] Respiratory 24 Rate Blood Pressure 100/60 O2 Sat by Pulse 99 96 Oximetry Fraction of Inspired Oxygen (FIO2) 02/18/24 02/18/24 02/18/24 14:00 14:03 14:04 Temperature Pulse Rate 100 97 Pulse Rate [ Pulse Oximetery ] Respiratory 20 Rate Blood Pressure 90/50 O2 Sat by Pulse 96 Oximetry Fraction of 40 Inspired Oxygen (FIO2) 02/18/24 02/18/24 02/18/24 14:15 15:00 15:39 Temperature Pulse Rate 103 H 87 90 Pulse Rate [ Pulse Oximetery ] Respiratory 16 18 Rate Blood Pressure 98/59 98/59 O2 Sat by Pulse 98 97 Oximetry Fraction of Inspired Oxygen (FIO2) 02/18/24 02/18/24 02/18/24 15:46 17:00 17:56 Temperature Pulse Rate 98 107 H Pulse Rate [ Pulse Oximetery ] Respiratory 24 Rate Blood Pressure 109/70 O2 Sat by Pulse 97 97 Oximetry Fraction of Inspired Oxygen (FIO2) 02/18/24 02/18/24 02/18/24 18:00 18:08 20:05 Temperature Pulse Rate 113 H 108 H 102 H Pulse Rate [ Pulse Oximetery ] Respiratory 36 H 18 Rate Blood Pressure 144/79 106/87 O2 Sat by Pulse 78 L 99 Oximetry Fraction of Inspired Oxygen (FIO2) 02/18/24 02/18/24 02/18/24 20:06 20:16 22:10 Temperature Pulse Rate 105 H 104 H 112 H Pulse Rate [ Pulse Oximetery ] Respiratory 16 Rate Blood Pressure 111/59 O2 Sat by Pulse 99 Oximetry Fraction of 40 Inspired Oxygen (FIO2) 02/19/24 02/19/24 02/19/24 00:09 01:15 01:17 Temperature 97.9 F Pulse Rate 87 Pulse Rate [ 89 Pulse Oximetery ] Respiratory 18 18 Rate Blood Pressure 108/76 O2 Sat by Pulse 100 98 Oximetry Fraction of 40 40 Inspired Oxygen (FIO2) Medical Decision Making - Medical Decision Making The patient had chest x-ray that I interpreted as negative for acute infiltrate, pneumothorax, congestive heart failure. There is evidence of COPD with hyperinflation. Was pt. sent in by a medical professional or institution ([facility] [place], CASE MANAGEMENT ASSOCIATE, urgent care, hospital, or residential...) When possible be specific @ -[No] Did you speak to anyone other than the patient for history (EMS, parent, family, police, friend...)? What history was obtained from this source @ -[No] Did you review nursing and triage notes (agree or disagree)? Why? @ -[I reviewed and agree with nursing and triage notes] Were old charts reviewed (outside hosp., previous admission, EMS record, old EKG, old radiological studies, urgent care reports/EKG's, residential records)? Report findings @ Yes, old charts were reviewed] Differential Diagnosis (chest pain, altered mental status, abdominal pain women, abdominal pain men, vaginal bleeding, weakness, fever, dyspnea, syncope, headache, dizziness, GI bleed, back pain, seizure, CVA, palpatations, mental health, musculoskeletal)? @ -[Differential Dyspnea: Coronary syndrome, arrhythmia, tamponade, asthma, COPD, pulmonary embolism, pneumonia, pneumothorax, pulmonary effusion, anaphylaxis, diabetic ketoacidosis, flailed chest, pulmonary contusion, diaphragmatic rupture, anemia, neuromuscular, this is not meant to be an all-inclusive list. EKG interpreted by me (3pts min.). @ -[I interpreted as above] X-rays interpreted by me (1pt min.). @ -[I interpreted as above CT interpreted by me (1pt min.). @ -[None done] U/S interpreted by me (1pt. min.). @ -[None done] What testing was considered but not performed or refused? (CT, X-rays, U/S, labs)? Why? @ -[None] What meds were considered but not given or refused? Why? @ -[None] Did you discuss the management of the patient with other professionals (professionals i.e. , PA, CASE MANAGEMENT ASSOCIATE, lab, RT, psych nurse, social media marketing manager, conductor/engineer, teacher, gift officer, transplant case manager)? Give summary @ -[Case discussed with admitting physician and treatment recommendations are incorporated Was smoking cessation discussed for >3mins.? @ -[No] Was critical care preformed (if so, how long)? @ -[Yes, 35 minutes Were there social determinants of health that impacted care today? How? (Homelessness, low income, unemployed, alcoholism, drug addiction, transportation, low edu. Level, literacy, decrease access to med. care, detention, rehab)? @ -[No] Was there de-escalation of care discussed even if they declined (Discuss DNR or withdrawal of care, Hospice)? DNR status @ -[No] What co-morbidities impacted this encounter? (DM, HTN, Smoking, COPD, CAD, Cancer, CVA, ARF, Chemo, Hep., AIDS, mental health diagnosis, sleep apnea, morbid obesity)? @ -[History of severe COPD, HIV Was patient admitted / discharged? Hospital course, mention meds given and route, prescriptions, significant lab abnormalities, going to OR and other pertinent info. @ -[Patient is a 53-year-old woman here with exacerbation of COPD. The patient does appear to have some acute respiratory acidosis. Treatment with nebulized medications, steroids, BiPAP initiated. the patient be admitted for further treatment and pulmonology consultation. Undiagnosed new problem with uncertain prognosis? @ -[No] Drug Therapy requiring intensive monitoring for toxicity (Heparin, Nitro, Insulin, Cardizem)? @ -[No] Were any procedures done? @ -[No] Diagnosis/symptom? @ -[Acute exacerbation of COPD Acute, or Chronic, or Acute on Chronic? @ -[Acute on chronic Uncomplicated (without systemic symptoms) or Complicated (systemic symptoms)? @ -[COPD complicated by dyspnea Side effects of treatment? @ -[No] Exacerbation, Progression, or Severe Exacerbation? @ -[Severe exacerbation Poses a threat to life or bodily function? How? (Chest pain, USA, PR, pneumonia, PE, COPD, DKA, ARF, appy, cholecystitis, CVA, Diverticulitis, Homicidal, Suicidal, threat to staff... and all critical care pts) @ -[Yes there is risk of respiratory failure - Lab Data Result diagrams: 02/18/24 01:13 02/21/24 20:52 Lab Results 02/18/24 02/18/24 02/18/24 Range/Units 01:05 01:05 01:05 WBC (3.8-10.6) k/uL RBC (3.80-5.40) m/uL Hgb (11.4-16.0) gm/dL Hct (34.0-46.0) % MCV (80.0-100.0) fL MCH (25.0-35.0) pg MCHC (31.0-37.0) g/dL RDW (11.5-15.5) % Plt Count (150-450) k/uL MPV Neutrophils % % Lymphocytes % % Monocytes % % Eosinophils % % Basophils % % Neutrophils # (1.3-7.7) k/uL Lymphocytes # (1.0-4.8) k/uL Monocytes # (0-1.0) k/uL Eosinophils # (0-0.7) k/uL Basophils # (0-0.2) k/uL Hypochromasia Macrocytosis PT 9.3 L (10.0-12.5) sec INR 0.8 (<1.2) APTT 22.5 (22.0-30.0) sec VBG pH (7.31-7.41) VBG pCO2 (37-51) mmHg Sodium 139 (137-145) mmol/L Potassium 4.7 (3.5-5.1) mmol/L Chloride 89 L (98-107) mmol/L Carbon Dioxide 49 H* (22-30) mmol/L Anion Gap 1 mmol/L BUN 19 H (7-17) mg/dL Creatinine 0.37 L (0.52-1.04) mg/dL Est GFR (CKD-EPI)AfAm >90 (>60 ml/min/1.73 sqM) Est GFR (CKD-EPI)NonAf >90 (>60 ml/min/1.73 sqM) Glucose 90 (74-99) mg/dL Plasma Lactic Acid Jarad 0.9 (0.7-2.0) mmol/L Calcium 9.0 (8.4-10.2) mg/dL Total Bilirubin 0.4 (0.2-1.3) mg/dL AST 27 (14-36) U/L ALT 40 H (4-34) U/L Alkaline Phosphatase 78 (38-126) U/L Troponin I (0.000-0.034) ng/mL NT-Pro-B Natriuret Pep 281 pg/mL Total Protein 6.6 (6.3-8.2) g/dL Albumin 4.1 (3.5-5.0) g/dL 02/18/24 02/18/24 02/18/24 Range/Units 01:05 01:05 01:13 WBC 9.5 (3.8-10.6) k/uL RBC 3.81 (3.80-5.40) m/uL Hgb 11.8 (11.4-16.0) gm/dL Hct 38.8 (34.0-46.0) % MCV 102.0 H (80.0-100.0) fL MCH 31.1 (25.0-35.0) pg MCHC 30.5 L (31.0-37.0) g/dL RDW 15.0 (11.5-15.5) % Plt Count 376 (150-450) k/uL MPV 6.6 Neutrophils % 75 % Lymphocytes % 16 % Monocytes % 7 % Eosinophils % 0 % Basophils % 0 % Neutrophils # 7.1 (1.3-7.7) k/uL Lymphocytes # 1.5 (1.0-4.8) k/uL Monocytes # 0.6 (0-1.0) k/uL Eosinophils # 0.0 (0-0.7) k/uL Basophils # 0.0 (0-0.2) k/uL Hypochromasia Marked Macrocytosis Slight PT (10.0-12.5) sec INR (<1.2) APTT (22.0-30.0) sec VBG pH 7.28 L (7.31-7.41) VBG pCO2 >98 H* (37-51) mmHg Sodium (137-145) mmol/L Potassium (3.5-5.1) mmol/L Chloride (98-107) mmol/L Carbon Dioxide (22-30) mmol/L Anion Gap mmol/L BUN (7-17) mg/dL Creatinine (0.52-1.04) mg/dL Est GFR (CKD-EPI)AfAm (>60 ml/min/1.73 sqM) Est GFR (CKD-EPI)NonAf (>60 ml/min/1.73 sqM) Glucose (74-99) mg/dL Plasma Lactic Acid Jarad (0.7-2.0) mmol/L Calcium (8.4-10.2) mg/dL Total Bilirubin (0.2-1.3) mg/dL AST (14-36) U/L ALT (4-34) U/L Alkaline Phosphatase (38-126) U/L Troponin I <0.012 (0.000-0.034) ng/mL NT-Pro-B Natriuret Pep pg/mL Total Protein (6.3-8.2) g/dL Albumin (3.5-5.0) g/dL - EKG Data -: EKG Interpreted by Id EKG shows normal: sinus rhythm, axis (Normal), intervals (Normal), QRS complexes (Normal), ST-T waves (Normal) Rate: normal (Rate 91 bpm) Disposition Clinical Impression: Acute respiratory distress, Hypercapnia, Acute exacerbation of chronic o bstructive pulmonary disease Disposition: ADMITTED IP TO THIS HOSP Condition: Fair Is patient prescribed a controlled substance at d/c from ED?: No
[2024-02-18] MEDS ORDERED: NALOXONE 0.4 MG/ML 1 ML VIAL IVP PRN (04:39)
[2024-02-18] MEDS: methylPREDNISolone SOD SUCCI 125 MG/2 ML VIAL IV STA (05:12)
[2024-02-18] MEDS: methylPREDNISolone SOD SUCCI 125 MG/2 ML VIAL IV SCH (06:10)
[2024-02-18] MEDS: IPRATROPIUM-ALBUTEROL 3 ML NEB INHALATION SCH (08:03)
[2024-02-18] MEDS ORDERED: SIMETHICONE 80 MG CHEWABLE PO PRN (09:29)
[2024-02-18] MEDS ORDERED: FLUTICASONE NASAL 50MCG/SPRAY 16GM BTL EA NOSTRIL PRN (09:29)
[2024-02-18] MEDS: ALPRAZolam 0.5 MG TAB PO SCH (11:32)
[2024-02-18] MEDS: atenoloL 50 MG TAB PO SCH (11:33)
[2024-02-18] MEDS: DOXYCYCLINE 100 MG CAP PO SCH (11:33)
--- NOTE | 2024-02-18 12:39 | P.HPIM ---
History of Present Illness H&P Date: 02/18/24 History of present illness; patient is a 53-year-old lady with past medical history significant for COPD, chronic hypoxic respiratory failure presented to the ER because of shortness of breath. Patient had multiple admission over the last year and most of the time patient have left AGAINST MEDICAL ADVICE. Patient stated that she was all right last night when suddenly her breathing became worse. Patient stated that it took only couple of hours for her to become so short of breath that she was unable to do anything. Shortness of breath was present at rest as on exertion. Patient denies any chest pain. There was no complaint of palpitation. There was no complaint of orthopnea or PND. Patient denies any swelling of feet. Patient denies any nausea, vomiting or abdominal pain. There is no complaint of dizziness. Because of this worsening shortness of breath, EMS was called and patient was brought to the ER Initial lab work done in the ER showed WBC 9.5, hemoglobin 11.8, platelet count 376, sodium is 139, potassium is 4.7, BUN is 19, creatinine 0.37, AST 27, ALT 40, troponin 0.012 Chest x-ray done in the ER showed no acute process, no significant change from prior Patient admitted to internal medicine service REVIEW OF SYSTEMS: CONSTITUTIONAL: No fever, no malaise, no fatigue. HEENT: No recent visual problems or hearing problems. Denied any sore throat. CARDIOVASCULAR: As mentioned above PULMONARY: As mentioned above GASTROINTESTINAL: No diarrhea, no nausea, no vomiting, no abdominal pain. NEUROLOGICAL: No headaches, no weakness, no numbness. HEMATOLOGICAL: Denies any bleeding or petechiae. GENITOURINARY: Denies any burning micturition, frequency, or urgency. MUSCULOSKELETAL/RHEUMATOLOGICAL: Denies any joint pain, swelling, or any muscle pain. ENDOCRINE: Denies any polyuria or polydipsia. The rest of the 14-point review of systems is negative. PHYSICAL EXAMINATION: GENERAL: The patient is alert and oriented x3, not in any acute distress. Chronically ill looking HEENT: Pupils are round and equally reacting to light. EOMI. No scleral icterus. No conjunctival pallor. Normocephalic, atraumatic. No pharyngeal erythema. No thyromegaly. CARDIOVASCULAR: S1 and S2 present. No murmurs, rubs, or gallops. PULMONARY: Tachypneic, coarse breath sound bilaterally, expiratory wheeze audible. ABDOMEN: Soft, nontender, nondistended, normoactive bowel sounds. No palpable organomegaly. MUSCULOSKELETAL: No joint swelling or deformity. EXTREMITIES: No cyanosis, clubbing, or pedal edema. NEUROLOGICAL: Gross neurological examination did not reveal any focal deficits. SKIN: No rashes. Assessment and plan Acute on chronic hypoxemic hypercapnic respiratory failure Acute COPD exacerbation History of ventilator dependent respiratory failure with previous tracheostomy and PEG tube placement, with subsequent D cannulization, and PEG tube removal. Severe/stage IV COPD, with an FEV1 that is 22% of predicted. Chronic hypoxemic respiratory failure, on home O2, 21/11. Acquired immunodeficiency syndrome. History of upper lobe pulmonary nodule, being monitored. Chronic metabolic alkalosis, Sinus tachycardia Monitor vital signs Monitor CBC Monitor CMP Continue telemetry monitoring Ordered oxygen supplementation Ordered BiPAP as needed Ordered breathing treatment Ordered IV Solu-Medrol Ordered doxycycline Consult pulmonary Labs and medication were reviewed.. Continue same treatment. Continue with symptomatic treatment. Resume home medication. Monitor labs and vitals. DVT and GI prophylaxis. Further recommendations as per clinical course of the patient Dictation was produced using [employer] dictation software. please excuse any grammatical, word or spelling errors. Past Medical History Past Medical History: Asthma, Blood Disorder, COPD, CVA/TIA Additional Past Medical History / Comment(s): HIV History of Any Multi-Drug Resistant Organisms: None Reported Past Surgical History: No Surgical Hx Reported Additional Past Surgical History / Comment(s): peg and tracheostomy reversal 2023 Past Anesthesia/Blood Transfusion Reactions: No Reported Reaction Past Psychological History: Anxiety, Depression, Panic Disorder Smoking Status: Former smoker Past Alcohol Use History: None Reported, Occasional Past Drug Use History: None Reported - Past Family History Mother History Unknown: Yes Medications and Allergies Home Medications Medication Instructions Recorded Confirmed Type Albuterol Sulfate [Albuterol 2 puff INHALATION RT-Q4H PRN 03/14/22 02/18/24 History Sulfate Hfa] Bictegrav/Emtricit/Tenofov Ala 1 tab PO DAILY 08/10/23 02/18/24 History [Biktarvy 50-200-25 mg Tablet] Ipratropium-Albuterol Nebulize 3 ml INHALATION RT-Q4H PRN 08/10/23 02/18/24 H istory [Duoneb 0.5 mg-3 mg/3 ml Soln] Famotidine [Pepcid] 20 mg PO BID 09/30/23 02/18/24 History Ondansetron [Zofran] 4 mg PO BID PRN 11/05/23 02/18/24 History ALPRAZolam [Xanax] 0.5 mg PO BID 11/27/23 02/18/24 History Diurex 2 tab PO Q4H PRN MDD 6 tabs 11/27/23 02/18/24 History Fluticasone Propionate [Flonase 1 spray EA NOSTRIL DAILY PRN 11/27/23 02/18/24 History Allergy Relief] Ibuprofen [Motrin Ib] 200 - 400 mg PO Q6H PRN 11/27/23 02/18/24 History Simethicone [Gas-X] 125 - 250 mg PO ACHS PRN 11/27/23 02/18/24 History Fluticasone/Umeclidin/Vilanter 1 puff INHALATION RT-DAILY 01/04/24 02/18/24 History [Trelegy Ellipta 200-62.5-25] Mirtazapine [Remeron] 15 mg PO HS 01/04/24 02/18/24 History Budesonide-Formot 160-4.5 Mcg 2 puff INHALATION RT-BID #1 each 01/21/24 02/18/24 Rx [Symbicort 160-4.5 Mcg Inhaler] Ipratropium-Albuterol Nebulize 3 ml INHALATION RT-QID each 01/21/24 02/18/24 Rx [Duoneb 0.5 mg-3 mg/3 ml Soln] Losartan [Cozaar] 50 mg PO BID 01/21/24 02/18/24 History Nicotine 14Mg/24Hr Patch [Habitrol] 1 patch TRANSDERM DAILY 01/21/24 02/18/24 History Xrpcksuw-Qgwrbgxoah-Fvfh Oint 1 applic TOPICAL BID PRN each 02/14/24 02/18/24 Rx [Triple Antibiotic Ointment] atenoloL [Tenormin] 50 mg PO DAILY #30 tab 02/14/24 02/18/24 Rx predniSONE See Taper PO DIRECTED #30 tab 02/14/24 02/18/24 Rx Allergies Allergy/AdvReac Type Severity Reaction Status Date / Time Penicillins Allergy Anaphylaxis Verified 02/18/24 08:43 Milk Containing Products AdvReac Nausea & Verified 02/18/24 08:43 (Dairy) Vomiting & Diarrhea Physical Exam Vitals: Vital Signs Temp Pulse Resp BP Pulse Ox FiO2 02/18/24 08:15 86 02/18/24 08:05 40 02/18/24 08:03 92 02/18/24 07:19 96 22 94/55 97 02/18/24 06:58 91 18 96/66 98 02/18/24 06:40 40 02/18/24 05:35 75 22 104/63 100 02/18/24 04:28 50 02/18/24 03:35 87 18 97/64 100 02/18/24 02:57 70 02/18/24 02:35 80 20 120/77 99 02/18/24 01:30 58 L 20 97/63 95 02/18/24 00:38 100 02/18/24 00:29 98.1 F 101 H 20 123/53 100 Intake and Output 02/17/24 02/18/24 02/18/24 22:59 06:59 14:59 Other: Weight 49.895 kg Results CBC & Chem 7: 02/18/24 01:13 02/18/24 01:05 Labs: Abnormal Lab Results - Last 24 Hours (Table) 02/18/24 02/18/24 02/18/24 Range/Units 01:05 01:05 01:05 MCV (80.0-100.0) fL MCHC (31.0-37.0) g/dL PT 9.3 L (10.0-12.5) sec VBG pH 7.28 L (7.31-7.41) VBG pCO2 >98 H* (37-51) mmHg Chloride 89 L (98-107) mmol/L Carbon Dioxide 49 H* (22-30) mmol/L BUN 19 H (7-17) mg/dL Creatinine 0.37 L (0.52-1.04) mg/dL ALT 40 H (4-34) U/L 02/18/24 Range/Units 01:13 MCV 102.0 H (80.0-100.0) fL MCHC 30.5 L (31.0-37.0) g/dL PT (10.0-12.5) sec VBG pH (7.31-7.41) VBG pCO2 (37-51) mmHg Chloride (98-107) mmol/L Carbon Dioxide (22-30) mmol/L BUN (7-17) mg/dL Creatinine (0.52-1.04) mg/dL ALT (4-34) U/L
--- NOTE | 2024-02-18 13:14 | P.CNPUL ---
History of Present Illness Consult date: 02/18/24 Reason for consult: dyspnea, COPD History of present illness: 53-year-old female patient came into the Emergency Department complaining of shortness of breath and increased anxiety. The patient has had multiple admissions. Exacerbation. She was discharged from the hospital on 02/14/2024. She claims that her dog ate all of her Xanax and she ran out of Xanax and she became extremely anxious and is followed worsening shortness of breath. She is currently on a BiPAP pressure of 14 over 5 cm of water. The patient is breathing comfortably and I took her off the BiPAP and placed on 3 L of oxygen by nasal cannula. Her chest x-ray shows no significant abnormalities and there is no acute process. Hemodynamically stable. The white cell count is at 9 with a hemoglobin 11.8 and a platelet count of 376. Serum bicarb is at 49 with a BUN of 19 and a creatinine of 0.37 and a sodium levels at 139. Troponins are negative. proBNP is not elevated. Awake and alert and communicating. She is known to have advanced COPD and she is also known to have history of HIV. She is a chronic smoker. Review of Systems Eyes: denies as per HPI, denies blurred vision, denies bulging eye, denies d ecreased vision, denies diplopia, denies discharge, denies dry eye, denies irritation, denies itching, denies pain, denies photophobia, denies loss of peripheral vision, denies loss of vision, denies tunnel vision/blind spots Ears: deny: decreased hearing, ear discharge, earache, tinnitus Ears, nose, mouth and throat: Reports as per HPI Breasts: absent: as per HPI, change in shape, gynecomastia, masses, nipple discharge, pain, skin changes, swelling Cardiovascular: Reports decreased exercise tolerance, Reports dyspnea on exertion Respiratory: Reports cough, Reports dyspnea, Reports wheezing Gastrointestinal: Reports as per HPI Genitourinary: Reports as per HPI Menstruation: Reports as per HPI Musculoskeletal: Reports as per HPI Musculoskeletal: absent: ankle pain, ankle stiffness, ankle swelling, as per HPI, elbow pain, elbow stiffness, elbow swelling, foot pain, foot stiffness, foot swelling, hand pain, hand stiffness, hand swelling, hip pain, hip stiffness, hip swelling, knee pain, knee stiffness, knee swelling, shoulder pain, shoulder stiffness, shoulder swelling, wrist pain, wrist stiffness, wrist swelling Neurological: Reports as per HPI Psychiatric: Reports as per HPI, increased anxiety Endocrine: Reports as per HPI Hematologic/Lymphatic: Reports as per HPI Allergic/Immunologic: Reports as per HPI Past Medical History Past Medical History: Asthma, Blood Disorder, COPD, CVA/TIA Additional Past Medical History / Comment(s): HIV History of Any Multi-Drug Resistant Organisms: None Reported Past Surgical History: No Surgical Hx Reported Additional Past Surgical History / Comment(s): peg and tracheostomy reversal 2023 Past Anesthesia/Blood Transfusion Reactions: No Reported Reaction Past Psychological History: Anxiety, Depression, Panic Disorder Smoking Status: Former smoker Past Alcohol Use History: None Reported, Occasional Past Drug Use History: None Reported - Past Family History Mother History Unknown: Yes Medications and Allergies Home Medications Medication Instructions Recorded Confirmed Type Albuterol Sulfate [Albuterol 2 puff INHALATION RT-Q4H PRN 03/14/22 02/18/24 History Sulfate Hfa] Bictegrav/Emtricit/Tenofov Ala 1 tab PO DAILY 08/10/23 02/18/24 History [Biktarvy 50-200-25 mg Tablet] Ipratropium-Albuterol Nebulize 3 ml INHALATION RT-Q4H PRN 08/10/23 02/18/24 History [Duoneb 0.5 mg-3 mg/3 ml Soln] Famotidine [Pepcid] 20 mg PO BID 09/30/23 02/18/24 History Ondansetron [Zofran] 4 mg PO BID PRN 11/05/23 02/18/24 History ALPRAZolam [Xanax] 0.5 mg PO BID 11/27/23 02/18/24 History Diurex 2 tab PO Q4H PRN MDD 6 tabs 11/27/23 02/18/24 History Fluticasone Propionate [Flonase 1 spray EA NOSTRIL DAILY PRN 11/27/23 02/18/24 History Allergy Relief] Ibuprofen [Motrin Ib] 200 - 400 mg PO Q6H PRN 11/27/23 02/18/24 History Simethicone [Gas-X] 125 - 250 mg PO ACHS PRN 11/27/23 02/18/24 History Fluticasone/Umeclidin/Vilanter 1 puff INHALATION RT-DAILY 01/04/24 02/18/24 History [Trelegy Ellipta 200-62.5-25] Mirtazapine [Remeron] 15 mg PO HS 01/04/24 02/18/24 History Budesonide-Formot 160-4.5 Mcg 2 puff INHALATION RT-BID #1 each 01/21/24 02/18/24 Rx [Symbicort 160-4.5 Mcg Inhaler] Ipratropium-Albuterol Nebulize 3 ml INHALATION RT-QID each 01/21/24 02/18/24 Rx [Duoneb 0.5 mg-3 mg/3 ml Soln] Losartan [Cozaar] 50 mg PO BID 01/21/24 02/18/24 History Nicotine 14Mg/24Hr Patch [Habitrol] 1 patch TRANSDERM DAILY 01/21/24 02/18/24 History Jfmvroep-Ifkgffpvtx-Skoa Oint 1 applic TOPICAL BID PRN each 02/14/24 02/18/24 Rx [Triple Antibiotic Ointment] atenoloL [Tenormin] 50 mg PO DAILY #30 tab 02/14/24 02/18/24 Rx predniSONE See Taper PO DIRECTED #30 tab 02/14/24 02/18/24 Rx Allergies Allergy/AdvReac Type Severity Reaction Status Date / Time Penicillins Allergy Anaphylaxis Verified 02/18/24 08:43 Milk Containing Products AdvReac Nausea & Verified 02/18/24 08:43 (Dairy) Vomiting & Diarrhea Physical Exam Vitals: Vital Signs Temp Pulse Resp BP Pulse Ox FiO2 02/18/24 08:15 86 02/18/24 08:05 40 02/18/24 08:03 92 02/18/24 07:19 96 22 94/55 97 02/18/24 06:58 91 18 96/66 98 02/18/24 06:40 40 02/18/24 05:35 75 22 104/63 100 02/18/24 04:28 50 02/18/24 03:35 87 18 97/64 100 02/18/24 02:57 70 02/18/24 02:35 80 20 120/77 99 02/18/24 01:30 58 L 20 97/63 95 02/18/24 00:38 100 02/18/24 00:29 98.1 F 101 H 20 123/53 100 Intake and Output 02/17/24 02/18/24 02/18/24 22:59 06:59 14:59 Other: Weight 49.895 kg GENERAL EXAM: Arousable, 53-year-old female, on BiPAP, comfortable in no apparent distress. HEAD: Normocephalic. EYES: Normal reaction of pupils, equal size. NOSE: Clear with pink turbinates. THROAT: No erythema or exudates. NECK: No masses, no JVD. CHEST: No chest wall deformity. LUNGS: Equal air entry with bilateral end expiratory wheeze. CVS: S1 and S2 normal with no audible murmur, regular rhythm. ABDOMEN: No hepatosplenomegaly, normal bowel sounds, no guarding or rigidity. SPINE: No scoliosis or deformity SKIN: No rashes CENTRAL NERVOUS SYSTEM: No focal deficits, tone is normal in all 4 extremities. EXTREMITIES: There is no peripheral edema. No clubbing, no cyanosis. Peripheral pulses are intact. Results - Laboratory Findings CBC and BMP: 02/18/24 01:13 02/18/24 01:05 PT/INR, D-dimer PT 9.3 sec (10.0-12.5) L 02/18/24 01:05 INR 0.8 (<1.2) 02/18/24 01:05 Abnormal lab findings: Abnormal Labs 02/18/24 02/18/24 02/18/24 01:05 01:05 01:05 MCV MCHC PT 9.3 L VBG pH 7.28 L VBG pCO2 >98 H* Chloride 89 L Carbon Dioxide 49 H* BUN 19 H Creatinine 0.37 L ALT 40 H 02/18/24 01:13 MCV 102.0 H MCHC 30.5 L PT VBG pH VBG pCO2 Chloride Carbon Dioxide BUN Creatinine ALT - Diagnostic Findings Chest x-ray: image reviewed Assessment and Plan Plan: Acute on chronic shortness of breath, multifactorial, including advanced COPD and chronic anxiety. The patient states that she ran out of her Xanax medications at home and she ended up coming into the hospital because of worsening shortness of breath Acute hypoxemic and hypercapnic respiratory failure, secondary to COPD exacerbation. Clinically stable and the patient is currently on BiPAP at a pressure of 14 over 5 cm of water with an FiO2 of 40% Ongoing tobacco use with nicotine addiction. Multiple hospital admissions, more than 10 admissions this year alone, since July 2023 Previous history of ventilator dependent respiratory failure with previous tracheostomy and PEG tube placement, with subsequent D cannulization, and PEG tube removal. Severe/stage IV COPD, with an FEV1 that is 22% of predicted. Chronic hypoxemic respiratory failure, on home O2, 21/11. Acquired immunodeficiency syndrome. History of upper lobe pulmonary nodule, being monitored. Increased lower extremity edema, improved with IV Lasix Chronic metabolic alkalosis, improved Sinus tachycardia Plan: Discontinue the BiPAP and put the patient on treatment oxygen by nasal cannula The patient will be placed back on DuoNeb nebulized treatments [id number]. She has Trelegy Ellipta at home and this can be resumed. If not available, she can be switched to Symbicort. Xanax for increased anxiety. Resume home medications. IV Solu-Medrol. Will continue to follow.
[2024-02-18] MEDS: IPRATROPIUM-ALBUTEROL 3 ML NEB INHALATION PRN (14:03)
[2024-02-18] MEDS: SYMBICORT 160-4.5 MCG INHALER INHALATION SCH (20:06)
[2024-02-18] MEDS: MIRTAZAPINE 15 MG TAB PO SCH (21:18)
[2024-02-18] MEDS: LOSARTAN 50 MG TAB PO SCH (21:18)
--- NOTE | 2024-02-19 15:37 | P.PN ---
Subjective Progress Note Date: 02/19/24 53-year-old female patient came into the Emergency Department complaining of shortness of breath and increased anxiety. The patient has had multiple admissions. Exacerbation. She was discharged from the hospital on 02/14/2024. She claims that her dog ate all of her Xanax and she ran out of Xanax and she became extremely anxious and is followed worsening shortness of breath. She is currently on a BiPAP pressure of 14 over 5 cm of water. The patient is breathing comfortably and I took her off the BiPAP and placed on 3 L of oxygen by nasal cannula. Her chest x-ray shows no significant abnormalities and there is no acute process. Hemodynamically stable. The white cell count is at 9 with a hemoglobin 11.8 and a platelet count of 376. Serum bicarb is at 49 with a BUN of 19 and a creatinine of 0.37 and a sodium levels at 139. Troponins are negative. proBNP is not elevated. Awake and alert and communicating. She is known to have advanced COPD and she is also known to have history of HIV. She is a chronic smoker. The patient is seen today February 19, 2024 in follow-up on the selective care unit. She is currently sitting up in bed. Awake and alert in no acute distress. Maintaining O2 saturation in the 90s on 4 L/min per nasal cannula. She is continued on DuoNeb and elations, Symbicort, Solu-Medrol. No worsening shortness of breath, cough or congestion. She is afebrile. Hemodynamically stable. Objective - Vital Signs Vital signs: Vital Signs Temp 97.2 F L 02/19/24 08:15 Pulse 117 H 02/19/24 11:24 Resp 18 02/19/24 11:05 BP 113/69 02/19/24 11:05 Pulse Ox 98 02/19/24 11:15 FiO2 40 02/19/24 09:03 Intake & Output 02/18/24 02/19/24 02/19/24 18:59 06:59 18:59 Intake Total 660 Output Total 0 Balance 0 660 Weight 58 kg Intake: Oral 660 Output: Urine 0 Other: Voiding Method Toilet Bedside Commode Diaper Diaper # Voids 1 # Bowel Movements 1 - Exam GENERAL EXAM: Alert, 53-year-old female, on 4 L nasal cannula, comfortable in no apparent distress. HEAD: Normocephalic. EYES: Normal reaction of pupils, equal size. NOSE: Clear with pink turbinates. THROAT: No erythema or exudates. NECK: No masses, no JVD. CHEST: No chest wall deformity. LUNGS: Equal air entry with no crackles, wheeze, rhonchi or dullness. CVS: S1 and S2 normal with no audible murmur, regular rhythm. ABDOMEN: No hepatosplenomegaly, normal bowel sounds, no guarding or rigidity. SPINE: No scoliosis or deformity SKIN: No rashes CENTRAL NERVOUS SYSTEM: No focal deficits, tone is normal in all 4 extremities. EXTREMITIES: There is no peripheral edema. No clubbing, no cyanosis. Peripheral pulses are intact. - Labs CBC & Chem 7: 02/18/24 01:13 02/18/24 01:05 Assessment and Plan Assessment: Acute on chronic shortness of breath, multifactorial, including advanced COPD and chronic anxiety. The patient states that her dog ate her Xanax medication at home and she ended up coming into the hospital because of worsening anxiety Acute hypoxemic and hypercapnic respiratory failure, secondary to COPD exacerbation. Clinically stable and the patient is currently on 4 L/min per nasal cannula Ongoing tobacco use with nicotine addiction. Multiple hospital admissions, more than 10 admissions this year alone, since July 2023 Previous history of ventilator dependent respiratory failure with previous tracheostomy and PEG tube placement, with subsequent de cannulization, and PEG tube removal Severe/stage IV COPD, with an FEV1 that is 22% of predicted Chronic hypoxemic respiratory failure, on home O2, 21/11 Acquired immunodeficiency syndrome History of upper lobe pulmonary nodule, being monitored Increased lower extremity edema, improved with IV Lasix Chronic metabolic alkalosis, improved Sinus tachycardia Plan: The patient was seen and evaluated Labs and medications reviewed Transition to oral prednisone Titrate down the FiO2 as tolerated I have personally seen and examined the patient, performed the documentation and the assessment and plan as written. Number of minutes spent on the visit: 10 Dictation was produced using [employer] dictation software. Please excuse any grammatical, word or spelling errors.
[2024-02-19] MEDS: ACETAMINOPHEN TAB 325 MG TAB PO PRN (18:52)
--- NOTE | 2024-02-20 05:54 | P.PN ---
Subjective Progress Note Date: 02/19/24 History of present illness; patient is a 53-year-old lady with past medical history significant for COPD, chronic hypoxic respiratory failure presented to the ER because of shortness of breath. Patient had multiple admission over the last year and most of the time patient have left AGAINST MEDICAL ADVICE. Patient stated that she was all right last night when suddenly her breathing became worse. Patient stated that it took only couple of hours for her to become so short of breath that she was unable to do anything. Shortness of breath was present at rest as on exertion. Patient denies any chest pain. There was no complaint of palpitation. There was no complaint of orthopnea or PND. Patient denies any swelling of feet. Patient denies any nausea, vomiting or abdominal pain. There is no complaint of dizziness. Because of this worsening shortness of breath, EMS was called and patient was brought to the ER Initial lab work done in the ER showed WBC 9.5, hemoglobin 11.8, platelet count 376, sodium is 139, potassium is 4.7, BUN is 19, creatinine 0.37, AST 27, ALT 40, troponin 0.012 Chest x-ray done in the ER showed no acute process, no significant change from prior Patient admitted to internal medicine service 02/19/2024 Patient is seen in follow-up today continues to be dyspneic on exam although able to converse more without becoming extremely winded. Patient has been up and walking to the bathroom and back continues on 2 L via nasal cannula using BiPAP at night. Pulmonary following maintained on IV steroids along with DuoNeb treatments. Transitioning to oral prednisone. Review of systems: Constitutional: No reports of fatigue, fever, or chills Cardiovascular: No reports of chest pain or palpitations Respiratory: reports of continued shortness of breath and dyspnea with exertion. GI: No reports of nausea, vomiting, or diarrhea : No reports of dysuria or retention Neurovascular: No reports of weakness or numbness All medications have been reviewed PHYSICAL EXAMINATION: GENERAL: The patient is alert and oriented x3, not in any acute distress. Chronically ill looking, appears older than stated age HEENT: Pupils are round and equally reacting to light. EOMI. No scleral icterus. No conjunctival pallor. Normocephalic, atraumatic. No pharyngeal erythema. No thyromegaly. CARDIOVASCULAR: S1 and S2 muffled, tacky PULMONARY: Tachypneic, coarse breath sound bilaterally, expiratory wheeze audible. Dyspneic on exam with minimal exertion ABDOMEN: Soft, nontender, nondistended, normoactive bowel sounds. No palpable organomegaly. MUSCULOSKELETAL: No joint swelling or deformity. EXTREMITIES: No cyanosis, clubbing, or pedal edema. NEUROLOGICAL: Gross neurological examination did not reveal any focal deficits. SKIN: No rashes. Assessment: Acute on chronic hypoxemic hypercapnic respiratory failure secondary to COPD exacerbation Acute COPD exacerbation History of ventilator dependent respiratory failure with previous tracheostomy and PEG tube placement, with subsequent D cannulization, and PEG tube removal. Severe/stage IV COPD, with an FEV1 that is 22% of predicted. Chronic hypoxemic respiratory failure, on home O2, 21/11. Acquired immunodeficiency syndrome. History of upper lobe pulmonary nodule, being monitored. Chronic metabolic alkalosis Sinus tachycardia Plan: Continue on DuoNeb treatments and IV steroids are being transition to oral prednisone per pulmonary BiPAP at night and continue with chronic oxygen use daily Encouraged increase activity as tolerated Possible discharge planning in the next 24 to 48 hours once respiratory status improves Overall prognosis is guarded the impression and plan of care has been dictated by Deirdre Ashley, Nurse Practitioner as directed. Dr. Ellie MD I have performed a history and examination and MDM of this patient, discussed the same with the dictator, and agree with the dictator's assessment and plan as written ,documented as a scribe. Based on total visit time, I have performed more than 50% of the visit. Objective - Vital Signs Vital signs: Vital Signs Temp 97.4 F L 02/19/24 03:35 Pulse 105 H 02/19/24 09:13 Resp 18 02/19/24 03:35 BP 108/76 02/19/24 01:17 Pulse Ox 96 02/19/24 09:03 FiO2 40 02/19/24 09:03 Intake & Output 02/18/24 02/19/24 02/19/24 18:59 06:59 18:59 Output Total 0 Balance 0 Weight 58 kg Output: Urine 0 Other: Voiding Method Toilet Diaper - Labs CBC & Chem 7: 02/18/24 01:13 02/18/24 01:05
[2024-02-20] MEDS: predniSONE 10 MG TAB PO SCH (08:32)
[2024-02-20] MEDS: [UNRECOGNIZED DRUG - OTHER] PO SCH (10:00)
[2024-02-20] MEDS ORDERED: IBUPROFEN 400 MG TAB PO PRN (13:45)
--- NOTE | 2024-02-20 14:42 | P.PN ---
Subjective Progress Note Date: 02/20/24 53-year-old female patient came into the Emergency Department complaining of shortness of breath and increased anxiety. The patient has had multiple admissions. Exacerbation. She was discharged from the hospital on 02/14/2024. She claims that her dog ate all of her Xanax and she ran out of Xanax and she became extremely anxious and is followed worsening shortness of breath. She is currently on a BiPAP pressure of 14 over 5 cm of water. The patient is breathing comfortably and I took her off the BiPAP and placed on 3 L of oxygen by nasal cannula. Her chest x-ray shows no significant abnormalities and there is no acute process. Hemodynamically stable. The white cell count is at 9 with a hemoglobin 11.8 and a platelet count of 376. Serum bicarb is at 49 with a BUN of 19 and a creatinine of 0.37 and a sodium levels at 139. Troponins are negative. proBNP is not elevated. Awake and alert and communicating. She is known to have advanced COPD and she is also known to have history of HIV. She is a chronic smoker. The patient is seen today February 19, 2024 in follow-up on the selective care unit. She is currently sitting up in bed. Awake and alert in no acute distress. Maintaining O2 saturation in the 90s on 4 L/min per nasal cannula. She is continued on DuoNeb and elations, Symbicort, Solu-Medrol. No worsening shortness of breath, cough or congestion. She is afebrile. Hemodynamically stable. The patient is seen today February 20, 2024 in follow-up on the selective care unit. She is awake and alert in no acute distress. Sitting up at the bedside. Denies any worsening shortness of breath, cough or congestion. Maintaining good O2 saturation in the upper 90s on 4 L/min per nasal cannula. She has been afebrile. Hemodynamically stable. No new labs today. She is continued on DuoNeb inhalations, Symbicort, prednisone. Empiric antibiotics in the form of Vibramycin. NicoDerm patch in place. Continued on her home Biktarvy. Objective - Vital Signs Vital signs: Vital Signs Temp 97.9 F 02/20/24 08:29 Pulse 77 02/20/24 11:19 Resp 19 02/20/24 11:19 BP 91/60 02/20/24 11:19 Pulse Ox 98 02/20/24 08:29 FiO2 50 02/19/24 20:00 Intake & Output 02/19/24 02/20/24 02/20/24 18:59 06:59 18:59 Intake Total 1200 Balance 1200 Weight 57 kg Intake: Oral 1200 Other: Voiding Method Bedside Commode Bedside Commode Bedside Commode Diaper Diaper Diaper # Voids 2 1 # Bowel Movements 1 1 - Exam GENERAL EXAM: Alert, 53-year-old female, sitting up in bed, on 4 L nasal cannula, in no apparent distress. HEAD: Normocephalic. EYES: Normal reaction of pupils, equal size. NOSE: Clear with pink turbinates. THROAT: No erythema or exudates. NECK: No masses, no JVD. CHEST: No chest wall deformity. LUNGS: Equal air entry with no crackles, wheeze, rhonchi or dullness. CVS: S1 and S2 normal with no audible murmur, regular rhythm. ABDOMEN: No hepatosplenomegaly, normal bowel sounds, no guarding or rigidity. SPINE: No scoliosis or deformity SKIN: No rashes CENTRAL NERVOUS SYSTEM: No focal deficits, tone is normal in all 4 extremities. EXTREMITIES: There is no peripheral edema. No clubbing, no cyanosis. Peripheral pulses are intact. - Labs CBC & Chem 7: 02/18/24 01:13 02/18/24 01:05 Assessment and Plan Assessment: Acute on chronic shortness of breath, multifactorial, including advanced COPD and chronic anxiety. The patient states that her dog ate her Xanax medication at home and she ended up coming into the hospital because of worsening anxiety Acute hypoxemic and hypercapnic respiratory failure, secondary to COPD exacerbation. Clinically stable and the patient is currently on 4 L/min per nasal cannula Ongoing tobacco use with nicotine addiction. Multiple hospital admissions, more than 10 admissions this year alone, since July 2023 Previous history of ventilator dependent respiratory failure with previous tracheostomy and PEG tube placement, with subsequent de cannulization, and PEG tube removal Severe/stage IV COPD, with an FEV1 that is 22% of predicted Chronic hypoxemic respiratory failure, on home O2, 21/11 Acquired immunodeficiency syndrome History of upper lobe pulmonary nodule, being monitored Increased lower extremity edema, improved with IV Lasix Chronic metabolic alkalosis, improved Sinus tachycardia Plan: The patient was seen and evaluated Medications reviewed Continue her home pulmonary medications Complete a prednisone taper Has home oxygen Follow-up in our office 1 week postdischarge I have personally seen and examined the patient, performed the documentation and the assessment and plan as written. Number of minutes spent on the visit: 10 Dictation was produced using [employer] dictation software. Please excuse any grammatical, word or spelling errors.
--- NOTE | 2024-02-20 14:47 | P.PN ---
Subjective Progress Note Date: 02/20/24 History of present illness; patient is a 53-year-old lady with past medical history significant for COPD, chronic hypoxic respiratory failure presented to the ER because of shortness of breath. Patient had multiple admission over the last year and most of the time patient have left AGAINST MEDICAL ADVICE. Patient stated that she was all right last night when suddenly her breathing became worse. Patient stated that it took only couple of hours for her to become so short of breath that she was unable to do anything. Shortness of breath was present at rest as on exertion. Patient denies any chest pain. There was no complaint of palpitation. There was no complaint of orthopnea or PND. Patient denies any swelling of feet. Patient denies any nausea, vomiting or abdominal pain. There is no complaint of dizziness. Because of this worsening shortness of breath, EMS was called and patient was brought to the ER Initial lab work done in the ER showed WBC 9.5, hemoglobin 11.8, platelet count 376, sodium is 139, potassium is 4.7, BUN is 19, creatinine 0.37, AST 27, ALT 40, troponin 0.012 Chest x-ray done in the ER showed no acute process, no significant change from prior Patient admitted to internal medicine service 02/19/2024 Patient is seen in follow-up today continues to be dyspneic on exam although able to converse more without becoming extremely winded. Patient has been up and walking to the bathroom and back continues on 2 L via nasal cannula using BiPAP at night. Pulmonary following maintained on IV steroids along with DuoNeb treatments. Transitioning to oral prednisone. 02/20/2024 Patient is seen in follow-up today continues to be extremely dyspneic and using BiPAP along with nasal cannula. Patient has been transition to oral prednisone with pulmonary following recommending outpatient follow-up in 1 week. Patient continues on [id number] breathing treatments and will continue. Home medications reviewed and resumed as appropriate. Biktarvy has been resumed. Plan is for possible discharge planning in the next 24 hours. Patient is afebrile denies any chest pain or palpitations. Patient does report some knee pain and feeling tenderness in her legs. Patient reports she has multiple issues with high-dose IV steroids and the symptoms occur. Review of systems: Constitutional: No reports of fatigue, fever, or chills Cardiovascular: No reports of chest pain or palpitations Respiratory: reports of continued shortness of breath and dyspnea with e xertion. GI: No reports of nausea, vomiting, or diarrhea : No reports of dysuria or retention Neurovascular: No reports of weakness or numbness, reports leg pain bilaterally All medications have been reviewed PHYSICAL EXAMINATION: GENERAL: The patient is alert and oriented x3, slightly anxious, chronically ill looking, appears older than stated age HEENT: Pupils are round and equally reacting to light. EOMI. No scleral icterus. No conjunctival pallor. Normocephalic, atraumatic. No pharyngeal erythema. No thyromegaly. CARDIOVASCULAR: S1 and S2 muffled, tacky PULMONARY: Tachypneic, coarse breath sound bilaterally, expiratory wheeze audible. Dyspneic on exam with minimal exertion, improved aeration minimally ABDOMEN: Soft, nontender, nondistended, normoactive bowel sounds. No palpable organomegaly. MUSCULOSKELETAL: No joint swelling or deformity. EXTREMITIES: No cyanosis, clubbing, or pedal edema. NEUROLOGICAL: Gross neurological examination did not reveal any focal deficits. SKIN: No rashes. Assessment: Acute on chronic hypoxemic hypercapnic respiratory failure secondary to COPD exacerbation Acute COPD exacerbation History of ventilator dependent respiratory failure with previous tracheostomy and PEG tube placement, with subsequent D cannulization, and PEG tube removal. Severe/stage IV COPD, with an FEV1 that is 22% of predicted. Chronic hypoxemic respiratory failure, on home O2, 21/11. Acquired immunodeficiency syndrome. History of upper lobe pulmonary nodule, being monitored. Chronic metabolic alkalosis Sinus tachycardia Plan: Continue on DuoNeb treatments and has been transitioned to oral prednisone per pulmonary BiPAP at night and continue with chronic oxygen use daily Encouraged increase activity as tolerated Possible discharge planning in the next 24 to 48 hours once respiratory status improves. Patient will need follow-up in the outpatient setting with pulmonary. Overall prognosis is guarded the impression and plan of care has been dictated by Deirdre Ashley Nurse Practitioner as directed. Dr. Ellie MD I have performed a history and examination and MDM of this patient, discussed the same with the dictator, and agree with the dictator's assessment and plan as written ,documented as a scribe. Based on total visit time, I have performed more than 50% of the visit. Objective - Vital Signs Vital signs: Vital Signs Temp 97.9 F 10/22/24 08:29 Pulse 77 02/20/24 11:19 Resp 19 02/20/24 11:19 BP 91/60 02/20/24 11:19 Pulse Ox 98 02/20/24 08:29 FiO2 50 02/19/24 20:00 Intake & Output 02/19/24 02/20/24 02/20/24 18:59 06:59 18:59 Intake Total 1200 Balance 1200 Weight 57 kg Intake: Oral 1200 Other: Voiding Method Bedside Commode Bedside Commode Bedside Commode Diaper Diaper Diaper # Voids 2 1 # Bowel Movements 1 1 - Labs CBC & Chem 7: 02/18/24 01:13 02/18/24 01:05
[2024-02-20] MEDS: ALPRAZolam 0.5 MG TAB PO SCH (15:59)
[2024-02-20] MEDS: PANTOPRAZOLE 40 MG TABLET PO SCH (15:59)
[2024-02-20] MEDS: NICOTINE 14MG/24HR PATCH TRANSDERM SCH (16:00)
--- NOTE | 2024-02-21 11:31 | XR ---
EXAMINATION TYPE: XR chest 1V portable DATE OF EXAM: 02/21/2024 HISTORY: Shortness of breath. COMPARISON: 02/18/2024 TECHNIQUE: Single view of the chest is submitted. FINDINGS: Demonstrated are scattered senescent parenchymal change. There is no evidence for focal infiltrate. The heart is stable. Hilar and mediastinal structures are within normal limits. Degenerative changes are seen of the dorsal spine. IMPRESSION: 1. Chronic changes without evidence for acute pulmonary disease. [facility], , 02/21/2024 11:28 AM
--- NOTE | 2024-02-21 14:10 | P.PN ---
Subjective Progress Note Date: 02/21/24 53-year-old female patient came into the Emergency Department complaining of shortness of breath and increased anxiety. The patient has had multiple admissions. Exacerbation. She was discharged from the hospital on 02/14/2024. She claims that her dog ate all of her Xanax and she ran out of Xanax and she became extremely anxious and is followed worsening shortness of breath. She is currently on a BiPAP pressure of 14 over 5 cm of water. The patient is breathing comfortably and I took her off the BiPAP and placed on 3 L of oxygen by nasal cannula. Her chest x-ray shows no significant abnormalities and there is no acute process. Hemodynamically stable. The white cell count is at 9 with a hemoglobin 11.8 and a platelet count of 376. Serum bicarb is at 49 with a BUN of 19 and a creatinine of 0.37 and a sodium levels at 139. Troponins are negative. proBNP is not elevated. Awake and alert and communicating. She is known to have advanced COPD and she is also known to have history of HIV. She is a chronic smoker. The patient is seen today February 19, 2024 in follow-up on the selective care unit. She is currently sitting up in bed. Awake and alert in no acute distress. Maintaining O2 saturation in the 90s on 4 L/min per nasal cannula. She is continued on DuoNeb and elations, Symbicort, Solu-Medrol. No worsening shortness of breath, cough or congestion. She is afebrile. Hemodynamically stable. The patient is seen today February 20, 2024 in follow-up on the selective care unit. She is awake and alert in no acute distress. Sitting up at the bedside. Denies any worsening shortness of breath, cough or congestion. Maintaining good O2 saturation in the upper 90s on 4 L/min per nasal cannula. She has been afebrile. Hemodynamically stable. No new labs today. She is continued on DuoNeb inhalations, Symbicort, prednisone. Empiric antibiotics in the form of Vibramycin. NicoDerm patch in place. Continued on her home Biktarvy. The patient is seen today February 21, 2024 in follow-up on the selective care unit. She is currently sitting up in bed. Awake and alert in no acute distress. She denies any worsening shortness of breath, cough or congestion. She is maintaining O2 saturations in the 90s on 2 L/min per nasal cannula. She is utilizing BiPAP at night 14/8 and 40% FiO2. She is continued on DuoNeb inhalations, Symbicort, prednisone taper. Empiric antibiotics in the form of Vibramycin. NicoDerm patch in place. Chest x-ray shows no acute pulmonary process. Objective - Vital Signs Vital signs: Vital Signs Temp 98.8 F 02/21/24 08:48 Pulse 88 02/21/24 13:34 Resp 22 02/21/24 13:34 BP 101/72 02/21/24 11:13 Pulse Ox 97 02/21/24 11:13 FiO2 40 02/21/24 09:45 Intake & Output 02/20/24 02/21/24 02/21/24 18:59 06:59 18:59 Intake Total 120 240 Output Total 600 Balance -480 240 Weight 60 kg Intake: Oral 120 240 Output: Urine 600 Other: Voiding Method Bedside Commode Bedside Commode Diaper Diaper Diaper External Catheter # Voids 1 # Bowel Movements 1 - Exam GENERAL EXAM: Alert, 53-year-old female, sitting up in bed, on 2 L nasal cannula, in no apparent distress. HEAD: Normocephalic. EYES: Normal reaction of pupils, equal size. NOSE: Clear with pink turbinates. THROAT: No erythema or exudates. NECK: No masses, no JVD. CHEST: No chest wall deformity. LUNGS: Equal air entry with no crackles, wheeze, rhonchi or dullness. CVS: S1 and S2 normal with no audible murmur, regular rhythm. ABDOMEN: No hepatosplenomegaly, normal bowel sounds, no guarding or rigidity. SPINE: No scoliosis or deformity SKIN: No rashes CENTRAL NERVOUS SYSTEM: No focal deficits, tone is normal in all 4 extremities. EXTREMITIES: There is no peripheral edema. No clubbing, no cyanosis. Peripheral pulses are intact. - Labs CBC & Chem 7: 02/18/24 01:13 02/18/24 01:05 Assessment and Plan Assessment: Acute on chronic shortness of breath, multifactorial, including advanced COPD and chronic anxiety. The patient states that her dog ate her Xanax medication at home and she ended up coming into the hospital because of worsening anxiety Acute hypoxemic and hypercapnic respiratory failure, secondary to COPD exacerbation. Clinically stable and the patient is currently on 2 L/min per nasal cannula. Chest x-ray shows chronic changes but no acute pulmonary process Ongoing tobacco use with nicotine addiction. Multiple hospital admissions, more than 10 admissions this year alone, since July 2023 Previous history of ventilator dependent respiratory failure with previous tracheostomy and PEG tube placement, with subsequent de cannulization, and PEG tube removal Severe/stage IV COPD, with an FEV1 that is 22% of predicted Chronic hypoxemic respiratory failure, on home O2, 21/11 Acquired immunodeficiency syndrome History of upper lobe pulmonary nodule, being monitored Increased lower extremity edema, improved with IV Lasix Chronic metabolic alkalosis, improved Sinus tachycardia Plan: The patient was seen and evaluated Chest x-ray and medications reviewed No acute pulmonary process Continue her home pulmonary medications Complete a prednisone taper Has home oxygen in place Follow-up in our office 1 week I have personally seen and examined the patient, performed the documentation and the assessment and plan as written. Number of minutes spent on the visit: 10 Dictation was produced using [employer] dictation software. Please excuse any grammatical, word or spelling errors.
[2024-02-21] MEDS: LORazepam 2 MG/ML INJ IV PRN (15:37)
[2024-02-21] MEDS: HYDROcodone/APAP 5-325MG 1 EACH TAB PO PRN (15:37)
[2024-02-21] MEDS: KETOROLAC 15 MG/ML 1 ML VIAL IVP SCH (15:56)
[2024-02-21 21:46] LABS: African American GFR (CKD) >90 (>60 ml/min/1.73 sqM); Blood Urea Nitrogen 19 mg/dL (7-17); Calcium 8.1 mg/dL (8.4-10.2); Chloride 88 mmol/L (98-107); Glucose 72 mg/dL (74-99); Magnesium 1.9 mg/dL (1.6-2.3); Non-African American GFR(CKD) >90 (>60 ml/min/1.73 sqM); Sodium 135 mmol/L (137-145)
[2024-02-21 21:53] LABS: Anion Gap 2 mmol/L
[2024-02-21 21:55] LABS: Carbon Dioxide 45 mmol/L (22-30)
--- NOTE | 2024-02-22 05:06 | P.PN ---
Subjective Progress Note Date: 02/21/24 History of present illness; patient is a 53-year-old lady with past medical history significant for COPD, chronic hypoxic respiratory failure presented to the ER because of shortness of breath. Patient had multiple admission over the last year and most of the time patient have left AGAINST MEDICAL ADVICE. Patient stated that she was all right last night when suddenly her breathing became worse. Patient stated that it took only couple of hours for her to become so short of breath that she was unable to do anything. Shortness of breath was present at rest as on exertion. Patient denies any chest pain. There was no complaint of palpitation. There was no complaint of orthopnea or PND. Patient denies any swelling of feet. Patient denies any nausea, vomiting or abdominal pain. There is no complaint of dizziness. Because of this worsening shortness of breath, EMS was called and patient was brought to the ER Initial lab work done in the ER showed WBC 9.5, hemoglobin 11.8, platelet count 376, sodium is 139, potassium is 4.7, BUN is 19, creatinine 0.37, AST 27, ALT 40, troponin 0.012 Chest x-ray done in the ER showed no acute process, no significant change from prior Patient admitted to internal medicine service 02/19/2024 Patient is seen in follow-up today continues to be dyspneic on exam although able to converse more without becoming extremely winded. Patient has been up and walking to the bathroom and back continues on 2 L via nasal cannula using BiPAP at night. Pulmonary following maintained on IV steroids along with DuoNeb treatments. Transitioning to oral prednisone. 02/20/2024 Patient is seen in follow-up today continues to be extremely dyspneic and using BiPAP along with nasal cannula. Patient has been transition to oral prednisone with pulmonary following recommending outpatient follow-up in 1 week. Patient continues on [id number] breathing treatments and will continue. Home medications reviewed and resumed as appropriate. Biktarvy has been resumed. Plan is for possible discharge planning in the next 24 hours. Patient is afebrile denies any chest pain or palpitations. Patient does report some knee pain and feeling tenderness in her legs. Patient reports she has multiple issues with high-dose IV steroids and the symptoms occur. 02/21/2024 Patient is seen and evaluated in follow-up today reporting she feels generalized bodyaches and generalized weakness with continued shortness of breath. Chest x- ray showing no acute process and stable findings. Will add something for pain and continue to monitor with possible discharge planning in the next 24 hours. Patient needs to follow-up with pulmonary outpatient. Patient is afebrile denies chest pain or palpitations. Review of systems: Constitutional: No reports of fatigue, fever, or chills Cardiovascular: No reports of chest pain or palpitations Respiratory: reports of continued shortness of breath and dyspnea with exertion. GI: No reports of nausea, vomiting, or diarrhea : No reports of dysuria or retention Neurovascular: reports of generalized weakness and bodyaches , reports leg pain bilaterally All medications have been reviewed PHYSICAL EXAMINATION: GENERAL: The patient is alert and oriented x3, slightly anxious, chronically ill looking, appears older than stated age HEENT: Pupils are round and equally reacting to light. EOMI. No scleral icterus. No conjunctival pallor. Normocephalic, atraumatic. No pharyngeal erythema. No thyromegaly. CARDIOVASCULAR: S1 and S2 muffled, tacky PULMONARY: Tachypneic, coarse breath sound bilaterally, expiratory wheeze audible. Dyspneic on exam with minimal exertion, improved aeration minimally ABDOMEN: Soft, nontender, nondistended, normoactive bowel sounds. No palpable organomegaly. MUSCULOSKELETAL: No joint swelling or deformity. EXTREMITIES: No cyanosis, clubbing, or pedal edema. NEUROLOGICAL: Gross neurological examination did not reveal any focal deficits. SKIN: No rashes. Assessment: Acute on chronic hypoxemic hypercapnic respiratory failure secondary to COPD exacerbation Acute COPD exacerbation History of ventilator dependent respiratory failure with previous tracheostomy and PEG tube placement, with subsequent D cannulization, and PEG tube removal. Severe/stage IV COPD, with an FEV1 that is 22% of predicted. Chronic hypoxemic respiratory failure, on home O2, 21/11. Acquired immunodeficiency syndrome. History of upper lobe pulmonary nodule, being monitored. Chronic metabolic alkalosis Sinus tachycardia Plan: Continue on DuoNeb treatments and has been transitioned to oral prednisone per pulmonary BiPAP at night and continue with chronic oxygen use daily Encouraged increase activity as tolerated. Patient is reporting body pain and generalized aches and will add something for pain. Possible discharge planning in the next 24 to 48 hours once respiratory status improves. Patient will need follow-up in the outpatient setting with pulmonary. Overall prognosis is guarded the impression and plan of care has been dictated by Deirdre Ashley, Nurse Practitioner as directed. Dr. Ellie MD I have performed a history and examination and MDM of this patient, discussed the same with the dictator, and agree with the dictator's assessment and plan as written ,documented as a scribe. Based on total visit time, I have performed more than 50% of the visit. Objective - Vital Signs Vital signs: Vital Signs Temp 98.8 F 02/21/24 08:48 Pulse 88 02/21/24 13:34 Resp 22 02/21/24 13:34 BP 101/72 02/21/24 11:13 Pulse Ox 97 02/21/24 11:13 FiO2 40 02/21/24 09:45 Intake & Output 02/20/24 02/21/24 02/21/24 18:59 06:59 18:59 Intake Total 120 240 Output Total 600 Balance -480 240 Weight 60 kg Intake: Oral 120 240 Output: Urine 600 Other: Voiding Method Bedside Commode Bedside Commode Diaper Diaper Diaper External Catheter # Voids 1 # Bowel Movements 1 - Labs CBC & Chem 7: 02/18/24 01:13 02/21/24 20:52
--- NOTE | 2024-02-22 13:39 | P.PN ---
Subjective Progress Note Date: 02/22/24 53-year-old female patient came into the Emergency Department complaining of shortness of breath and increased anxiety. The patient has had multiple admissions. Exacerbation. She was discharged from the hospital on 02/14/2024. She claims that her dog ate all of her Xanax and she ran out of Xanax and she became extremely anxious and is followed worsening shortness of breath. She is currently on a BiPAP pressure of 14 over 5 cm of water. The patient is breathing comfortably and I took her off the BiPAP and placed on 3 L of oxygen by nasal cannula. Her chest x-ray shows no significant abnormalities and there is no acute process. Hemodynamically stable. The white cell count is at 9 with a hemoglobin 11.8 and a platelet count of 376. Serum bicarb is at 49 with a BUN of 19 and a creatinine of 0.37 and a sodium levels at 139. Troponins are negative. proBNP is not elevated. Awake and alert and communicating. She is known to have advanced COPD and she is also known to have history of HIV. She is a chronic smoker. The patient is seen today February 19, 2024 in follow-up on the selective care unit. She is currently sitting up in bed. Awake and alert in no acute distress. Maintaining O2 saturation in the 90s on 4 L/min per nasal cannula. She is continued on DuoNeb and elations, Symbicort, Solu-Medrol. No worsening shortness of breath, cough or congestion. She is afebrile. Hemodynamically stable. The patient is seen today February 20, 2024 in follow-up on the selective care unit. She is awake and alert in no acute distress. Sitting up at the bedside. Denies any worsening shortness of breath, cough or congestion. Maintaining good O2 saturation in the upper 90s on 4 L/min per nasal cannula. She has been afebrile. Hemodynamically stable. No new labs today. She is continued on DuoNeb inhalations, Symbicort, prednisone. Empiric antibiotics in the form of Vibramycin. NicoDerm patch in place. Continued on her home Biktarvy. The patient is seen today February 21, 2024 in follow-up on the selective care unit. She is currently sitting up in bed. Awake and alert in no acute distress. She denies any worsening shortness of breath, cough or congestion. She is maintaining O2 saturations in the 90s on 2 L/min per nasal cannula. She is utilizing BiPAP at night 14/8 and 40% FiO2. She is continued on DuoNeb inhalations, Symbicort, prednisone taper. Empiric antibiotics in the form of Vibramycin. NicoDerm patch in place. Chest x-ray shows no acute pulmonary process. The patient is seen today February 22, 2024 in follow-up on the selective care unit. She is awake and alert in no acute distress. Denies any worsening shortness of breath, cough or congestion. She is maintaining O2 saturations in the 90s on 2 L/min per nasal cannula. She has been afebrile. Hemodynamically stable. No new labs today. She remains on bronchodilators. Empiric antib iotics in the form of doxycycline. NicoDerm patch in place. Completing a prednisone taper. Objective - Vital Signs Vital signs: Vital Signs Temp 98.4 F 02/22/24 11:22 Pulse 92 02/22/24 13:11 Resp 22 02/22/24 13:11 BP 128/81 02/22/24 13:11 Pulse Ox 94 L 02/22/24 13:11 FiO2 40 02/21/24 16:09 Intake & Output 02/21/24 02/22/24 02/22/24 18:59 06:59 18:59 Intake Total 720 540 370 Output Total 600 800 Balance 120 540 -430 Weight 62.5 kg Intake: IV 10 Invasive Line 1 10 Oral 720 540 360 Output: Urine 600 800 Other: Voiding Method Diaper Diaper Diaper External Catheter External Catheter External Catheter # Voids 1 # Bowel Movements 1 - Exam GENERAL EXAM: Alert, oriented 53-year-old female, on 2 L nasal cannula, in no apparent distress. HEAD: Normocephalic. EYES: Normal reaction of pupils, equal size. NOSE: Clear with pink turbinates. THROAT: No erythema or exudates. NECK: No masses, no JVD. CHEST: No chest wall deformity. LUNGS: Equal air entry with no crackles, wheeze, rhonchi or dullness. CVS: S1 and S2 normal with no audible murmur, regular rhythm. ABDOMEN: No hepatosplenomegaly, normal bowel sounds, no guarding or rigidity. SPINE: No scoliosis or deformity SKIN: No rashes CENTRAL NERVOUS SYSTEM: No focal deficits, tone is normal in all 4 extremities. EXTREMITIES: There is no peripheral edema. No clubbing, no cyanosis. Peripheral pulses are intact. - Labs CBC & Chem 7: 02/18/24 01:13 02/21/24 20:52 Labs: Abnormal Lab Results - Last 24 Hours (Table) 02/21/24 Range/Units 20:52 Sodium 135 L (137-145) mmol/L Chloride 88 L (98-107) mmol/L Carbon Dioxide 45 H* (22-30) mmol/L BUN 19 H (7-17) mg/dL Creatinine 0.36 L (0.52-1.04) mg/dL Glucose 72 L (74-99) mg/dL Calcium 8.1 L (8.4-10.2) mg/dL Assessment and Plan Assessment: Acute on chronic shortness of breath, multifactorial, including advanced COPD and chronic anxiety. The patient states that her dog ate her Xanax medication at home and she ended up coming into the hospital because of worsening anxiety Acute hypoxemic and hypercapnic respiratory failure, secondary to COPD exacerbation. Clinically stable and the patient is currently on 2 L/min per nasal cannula. Chest x-ray shows chronic changes but no acute pulmonary process Ongoing tobacco use with nicotine addiction Multiple hospital admissions, more than 10 admissions this year alone, since July 2023 Previous history of ventilator dependent respiratory failure with previous tracheostomy and PEG tube placement, with subsequent de cannulization, and PEG tube removal Severe/stage IV COPD, with an FEV1 that is 22% of predicted Chronic hypoxemic respiratory failure, on home O2, 21/11 Acquired immunodeficiency syndrome History of upper lobe pulmonary nodule, being monitored Increased lower extremity edema, improved with IV Lasix Chronic metabolic alkalosis, improved Sinus tachycardia Plan: The patient was seen and evaluated Medications reviewed Continue her home pulmonary medications Complete a prednisone taper Has home oxygen in place Follow-up in our office 1 week I have personally seen and examined the patient, performed the documentation and the assessment and plan as written. Number of minutes spent on the visit: 10 Dictation was produced using [employer] dictation software. Please excuse any grammatical, word or spelling errors.
[2024-02-22] MEDS: ALPRAZolam 1 MG TAB PO SCH (14:37)
--- NOTE | 2024-02-22 15:07 | P.PN ---
Subjective Progress Note Date: 02/22/24 History of present illness; patient is a 53-year-old lady with past medical history significant for COPD, chronic hypoxic respiratory failure presented to the ER because of shortness of breath. Patient had multiple admission over the last year and most of the time patient have left AGAINST MEDICAL ADVICE. Patient stated that she was all right last night when suddenly her breathing became worse. Patient stated that it took only couple of hours for her to become so short of breath that she was unable to do anything. Shortness of breath was present at rest as on exertion. Patient denies any chest pain. There was no complaint of palpitation. There was no complaint of orthopnea or PND. Patient denies any swelling of feet. Patient denies any nausea, vomiting or abdominal pain. There is no complaint of dizziness. Because of this worsening shortness of breath, EMS was called and patient was brought to the ER Initial lab work done in the ER showed WBC 9.5, hemoglobin 11.8, platelet count 376, sodium is 139, potassium is 4.7, BUN is 19, creatinine 0.37, AST 27, ALT 40, troponin 0.012 Chest x-ray done in the ER showed no acute process, no significant change from prior Patient admitted to internal medicine service 02/19/2024 Patient is seen in follow-up today continues to be dyspneic on exam although able to converse more without becoming extremely winded. Patient has been up and walking to the bathroom and back continues on 2 L via nasal cannula using BiPAP at night. Pulmonary following maintained on IV steroids along with DuoNeb treatments. Transitioning to oral prednisone. 02/20/2024 Patient is seen in follow-up today continues to be extremely dyspneic and using BiPAP along with nasal cannula. Patient has been transition to oral prednisone with pulmonary following recommending outpatient follow-up in 1 week. Patient continues on [id number] breathing treatments and will continue. Home medications reviewed and resumed as appropriate. Biktarvy has been resumed. Plan is for possible discharge planning in the next 24 hours. Patient is afebrile denies any chest pain or palpitations. Patient does report some knee pain and feeling tenderness in her legs. Patient reports she has multiple issues with high-dose IV steroids and the symptoms occur. 02/21/2024 Patient is seen and evaluated in follow-up today reporting she feels generalized bodyaches and generalized weakness with continued shortness of breath. Chest x- ray showing no acute process and stable findings. Will add something for pain and continue to monitor with possible discharge planning in the next 24 hours. Patient needs to follow-up with pulmonary outpatient. Patient is afebrile denies chest pain or palpitations. 02/22/2024 Patient is seen in follow-up this morning reporting feeling unwell and continued with bodyaches that radiate from her chest down to her lower extremities. Patient continues to be anxious and dyspneic and winded very easily during conversation. Patient not quite back to her baseline. Patient has been in and out of the hospital frequently and will order virology testing as patient is reporting significant body aches and generalized weakness. Encouraged the patient to use the BiPAP as needed and patient has been on occasion but trying to stay away from it as she reports she is not able to receive it at home and feels it will not help her any if she remains dependent on it while hospitalized and then discharges home without it. Review of systems: Constitutional: No reports of fatigue, fever, or chills Cardiovascular: No reports of chest pain or palpitations Respiratory: reports of continued shortness of breath and dyspnea with exertio n. GI: No reports of nausea, vomiting, or diarrhea : No reports of dysuria or retention Neurovascular: reports of generalized weakness and bodyaches , reports leg pain bilaterally All medications have been reviewed PHYSICAL EXAMINATION: GENERAL: The patient is alert and oriented x3, slightly more anxious, chronically ill looking, appears older than stated age HEENT: Pupils are round and equally reacting to light. EOMI. No scleral icterus. No conjunctival pallor. Normocephalic, atraumatic. No pharyngeal erythema. No thyromegaly. CARDIOVASCULAR: S1 and S2 muffled, tacky PULMONARY: Tachypneic, coarse breath sound bilaterally, expiratory wheeze audible. Dyspneic on exam with minimal exertion, improved aeration minimally ABDOMEN: Soft, nontender, nondistended, normoactive bowel sounds. No palpable organomegaly. MUSCULOSKELETAL: No joint swelling or deformity. EXTREMITIES: No cyanosis, clubbing, or pedal edema. NEUROLOGICAL: Gross neurological examination did not reveal any focal deficits. SKIN: No rashes. Assessment: Acute on chronic hypoxemic hypercapnic respiratory failure secondary to COPD exacerbation Acute COPD exacerbation History of ventilator dependent respiratory failure with previous tracheostomy and PEG tube placement, with subsequent D cannulization, and PEG tube removal. Severe/stage IV COPD, with an FEV1 that is 22% of predicted. Chronic hypoxemic respiratory failure, on home O2, 21/11. Acquired immunodeficiency syndrome. History of upper lobe pulmonary nodule, being monitored. Chronic metabolic alkalosis Sinus tachycardia Plan: Continue on DuoNeb treatments and has been transitioned to oral prednisone per pulmonary BiPAP at night and continue with chronic oxygen use daily. Patient reports she has been attempting to not use the BiPAP as much because she feels it would not do her any good as she does not have it at home. Pulmonary has attempted multiple times to get her qualified for BiPAP although has been unsuccessful. Encouraged increase activity as tolerated. Patient is reporting body pain and generalized aches and will add something for pain. Possible discharge planning in the next 24 to 48 hours once respiratory status improves. Patient will need follow-up in the outpatient setting with pulmonary. Overall prognosis is guarded the impression and plan of care has been dictated by Deirdre Ashley, Nurse Practitioner as directed. Dr. Ellie MD I have performed a history and examination and MDM of this patient, discussed the same with the dictator, and agree with the dictator's assessment and plan as written ,documented as a scribe. Based on total visit time, I have performed more than 50% of the visit. Objective - Vital Signs Vital signs: Vital Signs Temp 97.9 F 02/22/24 09:18 Pulse 104 H 02/22/24 09:18 Resp 20 02/22/24 09:18 BP 123/77 02/22/24 09:18 Pulse Ox 94 L 02/22/24 09:18 FiO2 40 02/21/24 16:09 Intake & Output 02/21/24 02/22/24 02/22/24 18:59 06:59 18:59 Intake Total 720 540 190 Output Total 600 800 Balance 120 540 -610 Weight 62.5 kg Intake: IV 10 Invasive Line 1 10 Oral 720 540 180 Output: Urine 600 800 Other: Voiding Method Diaper Diaper External Catheter External Catheter # Voids 1 # Bowel Movements 1 - Labs CBC & Chem 7: 02/18/24 01:13 02/21/24 20:52 Labs: Abnormal Lab Results - Last 24 Hours (Table) 02/21/24 Range/Units 20:52 Sodium 135 L (137-145) mmol/L Chloride 88 L (98-107) mmol/L Carbon Dioxide 45 H* (22-30) mmol/L BUN 19 H (7-17) mg/dL Creatinine 0.36 L (0.52-1.04) mg/dL Glucose 72 L (74-99) mg/dL Calcium 8.1 L (8.4-10.2) mg/dL
[2024-02-23 11:17] VITALS: TEMP 98
[2024-02-23 11:41] VITALS: RESP 20
[2024-02-23 12:22] VITALS: BP 114/77
--- NOTE | 2024-02-23 14:46 | P.PN ---
Subjective Progress Note Date: 02/23/24 Principal diagnosis: Acute exacerbation of COPD 53-year-old female patient came into the Emergency Department complaining of shortness of breath and increased anxiety. The patient has had multiple admissions. Exacerbation. She was discharged from the hospital on 02/14/2024. She claims that her dog ate all of her Xanax and she ran out of Xanax and she became extremely anxious and is followed worsening shortness of breath. She is currently on a BiPAP pressure of 14 over 5 cm of water. The patient is breathing comfortably and I took her off the BiPAP and placed on 3 L of oxygen by nasal cannula. Her chest x-ray shows no significant abnormalities and there is no acute process. Hemodynamically stable. The white cell count is at 9 with a hemoglobin 11.8 and a platelet count of 376. Serum bicarb is at 49 with a BUN of 19 and a creatinine of 0.37 and a sodium levels at 139. Troponins are negative. proBNP is not elevated. Awake and alert and communicating. She is known to have advanced COPD and she is also known to have history of HIV. She is a chronic smoker. The patient is seen today February 19, 2024 in follow-up on the selective care unit. She is currently sitting up in bed. Awake and alert in no acute distress. Maintaining O2 saturation in the 90s on 4 L/min per nasal cannula. She is continued on DuoNeb and elations, Symbicort, Solu-Medrol. No worsening shortness of breath, cough or congestion. She is afebrile. Hemodynamically stable. The patient is seen today February 20, 2024 in follow-up on the selective care unit. She is awake and alert in no acute distress. Sitting up at the bedside. Denies any worsening shortness of breath, cough or congestion. Maintaining good O2 saturation in the upper 90s on 4 L/min per nasal cannula. She has been afebrile. Hemodynamically stable. No new labs today. She is continued on DuoNeb inhalations, Symbicort, prednisone. Empiric antibiotics in the form of Vibramycin. NicoDerm patch in place. Continued on her home Biktarvy. The patient is seen today February 21, 2024 in follow-up on the selective care unit. She is currently sitting up in bed. Awake and alert in no acute distress . She denies any worsening shortness of breath, cough or congestion. She is maintaining O2 saturations in the 90s on 2 L/min per nasal cannula. She is utilizing BiPAP at night 14/8 and 40% FiO2. She is continued on DuoNeb inhalations, Symbicort, prednisone taper. Empiric antibiotics in the form of Vibramycin. NicoDerm patch in place. Chest x-ray shows no acute pulmonary process. The patient is seen today February 22, 2024 in follow-up on the selective care unit. She is awake and alert in no acute distress. Denies any worsening shortness of breath, cough or congestion. She is maintaining O2 saturations in the 90s on 2 L/min per nasal cannula. She has been afebrile. Hemodynamically stable. No new labs today. She remains on bronchodilators. Empiric antibiotics in the form of doxycycline. NicoDerm patch in place. Completing a prednisone taper. Patient was seen today on 02/23/2024, feeling better, breathing easier, occasional cough and wheezing, but overall I believe the patient has made a significant improvement. Remains on antibiotics remains on bronchodilators, and she is completing a prednisone taper. My biggest concern about this patient is the fact that she gets discharged, and she comes back within 48 hours with a worsening picture of her COPD I believe is mostly because of noncompliance. Objective - Vital Signs Vital signs: Vital Signs Temp 98.0 F 02/23/24 11:15 Pulse 94 02/23/24 12:20 Resp 20 02/23/24 12:20 BP 114/77 02/23/24 12:20 Pulse Ox 94 L 02/23/24 12:20 FiO2 40 02/23/24 08:59 Intake & Output 02/22/24 02/23/24 02/23/24 18:59 06:59 18:59 Intake Total 380 260 250 Output Total 800 400 Balance -420 -140 250 Weight 53.524 kg Intake: IV 20 20 10 Invasive Line 1 20 20 10 Oral 360 240 240 Output: Urine 800 400 Other: Voiding Method Diaper Diaper Bedside Commode External Catheter External Catheter # Voids 3 - Exam GENERAL EXAM: 53-year-old female on 2 L nasal cannula not in distress HEAD: Normocephalic. EYES: Normal reaction of pupils, equal size. NOSE: Clear with pink turbinates. THROAT: No erythema or exudates. NECK: No masses, no JVD. CHEST: No chest wall deformity. LUNGS: Diminished breath sound bilaterally no crackles rhonchi or wheezes CVS: S1 and S2 normal with no audible murmur, regular rhythm. ABDOMEN: No hepatosplenomegaly, normal bowel sounds, no guarding or rigidity. SKIN: No rashes CENTRAL NERVOUS SYSTEM: No focal deficits, tone is normal in all 4 extremities. EXTREMITIES: There is no peripheral edema. No clubbing, no cyanosis. Peripheral pulses are intact. - Labs CBC & Chem 7: 02/18/24 01:13 02/21/24 20:52 Assessment and Plan Assessment: Impression: Acute on chronic shortness of breath, multifactorial, including advanced COPD and chronic anxiety. The patient states that her dog ate her Xanax medication at home and she ended up coming into the hospital because of worsening anxiety Acute hypoxemic and hypercapnic respiratory failure, secondary to COPD exacerbation. Clinically stable and the patient is currently on 2 L/min per nasal cannula. Chest x-ray shows chronic changes but no acute pulmonary process Ongoing tobacco use with nicotine addictionMultiple hospital admissions, more than 10 admissions this year alone, since July 2023 Previous history of ventilator dependent respiratory failure with previous tracheostomy and PEG tube placement, with subsequent de cannulization, and PEG tube removal Severe/stage IV COPD, with an FEV1 that is 22% of predicted Chronic hypoxemic respiratory failure, on home O2, 21/11 Acquired immunodeficiency syndrome History of upper lobe pulmonary nodule, being monitored Increased lower extremity edema, improved with IV Lasix Chronic metabolic alkalosis, improved Sinus tachycardia Recommendation: Continue present bronchodilators Continue prednisone taper Continue oxygen, patient has home oxygen Tried in the past to qualify the patient for BiPAP, this was denied I believe this would be appropriate if she has this at home she may or may not be compliant with it Overall prognosis remains guarded, Consider discharge planning in the next 24 to 48 hours Time with Patient: Less than 30
[2024-02-23 14:54] VITALS: BMI 22.3
[2024-02-23 15:10] VITALS: PULSE 90
--- NOTE | 2024-02-28 19:32 | P.DS ---
Providers Date of admission: 02/18/24 04:40 Expected date of discharge: 02/23/24 Attending physician: Cheli Zavaleta Consults: 02/18/24 04:41 Consult Physician Routine Consulting Provider: Patti Portillo Consult Reason/Comments: COPD exacerbation Do you want consulting provider notified?: Yes Primary care physician: Francisco Harvey [facility] Course: Final diagnosis Acute on chronic hypoxemic hypercapnic respiratory failure secondary to COPD exacerbation Acute COPD exacerbation History of ventilator dependent respiratory failure with previous tracheostomy and PEG tube placement, with subsequent D cannulization, and PEG tube removal. Severe/stage IV COPD, with an FEV1 that is 22% of predicted. Chronic hypoxemic respiratory failure, on home O2, 21/11. Acquired immunodeficiency syndrome. History of upper lobe pulmonary nodule, being monitored. Chronic metabolic alkalosis Sinus tachycardia Discharge disposition Patient is being discharged in a stable condition with guarded prognosis to home. Patient will follow-up with Dr. Harvey. In the outpatient setting upon discharge. Patient is to continue with prednisone taper and outpatient follow- up with pulmonary as scheduled. Total time taken is greater than 35 minutes. Hospital course This is a 53-year-old female who was recently admitted shortness of breath with COPD exacerbation. Patient also has severe anxiety and takes Xanax and reports her dog ate her pills including the pill bottle and had increased anxiety with shortness of breath and presented to the hospital. Admission patient required continuous BiPAP and is using intermittently. Patient would benefit from BiPAP at home although does not qualify. Strongly encourage outpatient follow-up for further testing with pulmonary. Patient has had frequent hospitalizations and ER visits regarding this severe COPD. Patient reports to feeling improved and will continue her prednisone taper. Patient has been cleared by pulmonary to follow-up outpatient in 1 week. Please refer to other consultation notes for further HPI. Currently no reports of chest pain, shortness of breath, or palpitations. Patient is afebrile. No reports of nausea or vomiting and patient is tolerating diet. Patient will be discharged home. High risk for readmissions given significant comorbidities. Physical exam: Gen: This is a 53-year-old female who is awake and alert and oriented x 3, well- developed, appears older than stated age, thin built diminished breath sounds bilaterally otherwise HEENT: Head is atraumatic, normocephalic. Pupils equal, round. Sclerae is anicteric. NECK: Supple. No JVD. No lymphadenopathy. No thyromegaly. LUNGS: Diminished breath sounds bilaterally otherwise clear to auscultation. Faint expiratory wheezes noted. No intercostal retractions. HEART: Regular rate and rhythm. No murmur. ABDOMEN: Soft. Bowel sounds are present. No masses. No tenderness. EXTREMITIES: No pedal edema. No calf tenderness. NEUROLOGICAL: Patient is awake, alert and oriented x3. Cranial nerves 2 through 12 are grossly intact. Please refer to medication reconciliation sheet for a list of medications. The impression and plan of care has been dictated by Deirdre Ashley, Nurse Practitioner as directed. Dr. Ellie MD I have performed a history and examination and MDM of this patient, discussed the same with the dictator, and agree with the dictator's assessment and plan as written ,documented as a scribe. Based on total visit time, I have performed more than 50% of the visit. Patient Condition at Discharge: Fair Plan - Discharge Summary Discharge Rx Participant: Yes New Discharge Prescriptions: New Doxycycline [Vibramycin] 100 mg PO BID 7 Days #14 cap Acetaminophen Tab [Tylenol] 650 mg PO Q4HR PRN tab PRN Reason: Mild Pain Or Fever > 100.5 HYDROcodone/APAP 5-325MG [[place] 5-325] 1 each PO Q6HR PRN #6 tab PRN Reason: Pain ALPRAZolam [Xanax] 1 mg PO Q8H PRN 3 Days #9 tab PRN Reason: Anxiety Continue Albuterol Sulfate [Albuterol Sulfate Hfa] 2 puff INHALATION RT-Q4H PRN PRN Reason: Shortness Of Breath Ipratropium-Albuterol Nebulize [Duoneb 0.5 mg-3 mg/3 ml Soln] 3 ml INHALATION RT-Q4H PRN PRN Reason: Shortness Of Breath Famotidine [Pepcid] 20 mg PO BID Ibuprofen [Motrin Ib] 200 - 400 mg PO Q6H PRN PRN Reason: Pain Or Fever > 100.5 Fluticasone Propionate [Flonase Allergy Relief] 1 spray EA NOSTRIL DAILY PRN PRN Reason: Congestion Fluticasone/Umeclidin/Vilanter [Trelegy Ellipta 200-62.5-25] 1 puff INHALATION RT-DAILY Nicotine 14Mg/24Hr Patch [Habitrol] 1 patch TRANSDERM DAILY Ipratropium-Albuterol Nebulize [Duoneb 0.5 mg-3 mg/3 ml Soln] 3 ml INHALATION RT-QID each atenoloL [Tenormin] 50 mg PO DAILY #30 tab Bictegrav/Emtricit/Tenofov Ala [Biktarvy 50-200-25 mg Tablet] 1 tab PO DAILY Ondansetron [Zofran] 4 mg PO BID PRN PRN Reason: Nausea Simethicone [Gas-X] 125 - 250 mg PO ACHS PRN PRN Reason: gas Diurex 2 tab PO Q4H PRN MDD 6 tabs PRN Reason: weight gain/bloating Mirtazapine [Remeron] 15 mg PO HS Losartan [Cozaar] 50 mg PO BID Budesonide-Formot 160-4.5 Mcg [Symbicort 160-4.5 Mcg Inhaler] 2 puff INHALATION RT-BID #1 each Uepwtqwi-Cmbjusnlme-Xjrm Oint [Triple Antibiotic Ointment] 1 applic TOPICAL BID PRN each PRN Reason: Skin Irritation predniSONE See Taper PO DIRECTED #30 tab Discontinued ALPRAZolam [Xanax] 0.5 mg PO BID Discharge Medication List Albuterol Sulfate [Albuterol Sulfate Hfa] 2 puff INHALATION RT-Q4H PRN 03/14/22 [History] Bictegrav/Emtricit/Tenofov Ala [Biktarvy 50-200-25 mg Tablet] 1 tab PO DAILY 08/10/23 [History] Ipratropium-Albuterol Nebulize [Duoneb 0.5 mg-3 mg/3 ml Soln] 3 ml INHALATION RT-Q4H PRN 08/10/23 [History] Famotidine [Pepcid] 20 mg PO BID 09/30/23 [History] Ondansetron [Zofran] 4 mg PO BID PRN 11/05/23 [History] Diurex 2 tab PO Q4H PRN MDD 6 tabs 11/27/23 [History] Fluticasone Propionate [Flonase Allergy Relief] 1 spray EA NOSTRIL DAILY PRN 11/27/23 [History] Ibuprofen [Motrin Ib] 200 - 400 mg PO Q6H PRN 11/27/23 [History] Simethicone [Gas-X] 125 - 250 mg PO ACHS PRN 11/27/23 [History] Fluticasone/Umeclidin/Vilanter [Trelegy Ellipta 200-62.5-25] 1 puff INHALATION RT-DAILY 01/04/24 [History] Mirtazapine [Remeron] 15 mg PO HS 01/04/24 [History] Budesonide-Formot 160-4.5 Mcg [Symbicort 160-4.5 Mcg Inhaler] 2 puff INHALATION RT-BID #1 each 01/21/24 [Rx] Ipratropium-Albuterol Nebulize [Duoneb 0.5 mg-3 mg/3 ml Soln] 3 ml INHALATION RT-QID each 01/21/24 [Rx] Losartan [Cozaar] 50 mg PO BID 01/21/24 [History] Nicotine 14Mg/24Hr Patch [Habitrol] 1 patch TRANSDERM DAILY 01/21/24 [History] Afchzqpo-Mnqmqlpqed-Hupp Oint [Triple Antibiotic Ointment] 1 applic TOPICAL BID PRN each 02/14/24 [Rx] atenoloL [Tenormin] 50 mg PO DAILY #30 tab 02/14/24 [Rx] Acetaminophen Tab [Tylenol] 650 mg PO Q4HR PRN tab 02/21/24 [Rx] Doxycycline [Vibramycin] 100 mg PO BID 7 Days #14 cap 02/21/24 [Rx] predniSONE See Taper PO DIRECTED #30 tab 02/21/24 [Rx] ALPRAZolam [Xanax] 1 mg PO Q8H PRN 3 Days #9 tab 02/23/24 [Rx] HYDROcodone/APAP 5-325MG [[place] 5-325] 1 each PO Q6HR PRN #6 tab 02/23/24 [Rx] Follow up Appointment(s)/Referral(s): Cinthya Villegas MD [STAFF PHYSICIAN] - 03/04/24 9:30 am Francisco Harvey [Primary Care Provider] - 1-2 days (office is closed, please call and make appointment ) Patient Instructions/Handouts: Using Oxygen at Home (DC), COPD (Chronic Obstructive Pulmonary Disease) (DC), Anxiety (GEN) Activity/Diet/Wound Care/Special Instructions: Activity limited until follow-up Follow-up with primary care provider on discharge to reestablish Follow-up with pulmonary outpatient Continue taking medications as prescribed Discharge/Stand Alone Forms: [facility] DRUMMOND Pamphlet Discharge Disposition: HOME SELF-CARE
== END 2024-02-23 15:30 | disposition home or self-care (01) | DRG 189 ==
LOC: EC 00:28 → 3SCARD 04:39 → OBSVTOIN 04:40 → 3SCARD 02-19 00:56
PROVIDERS: ADMIT Hospitalist; ATTEND Hospitalist
PROC: 5A09557 Assistance with Respiratory Ventilation, Greater than 96 Consecutive Hours, Continuous Positive Airway Pressure (ICD-10-PCS; principal; 2024-02-18)
DX: J96.21 Acute and chronic respiratory failure with hypoxia (principal); J44.1 Chronic obstructive pulmonary disease with (acute) exacerbation; Z43.1 Encounter for attention to gastrostomy; D84.9 Immunodeficiency, unspecified; Z99.11 Dependence on respirator [ventilator] status; B20 Human immunodeficiency virus [HIV] disease; E87.3 Alkalosis; J96.22 Acute and chronic respiratory failure with hypercapnia; R91.1 Solitary pulmonary nodule; R00.0 Tachycardia, unspecified; F17.210 Nicotine dependence, cigarettes, uncomplicated; R60.0 Localized edema; F32.A Depression, unspecified; F41.0 Panic disorder [episodic paroxysmal anxiety]; Z79.51 Long term (current) use of inhaled steroids; Z79.52 Long term (current) use of systemic steroids; Z79.899 Other long term (current) drug therapy; Z91.199 Patient's noncompliance with other medical treatment and regimen due to unspecified reason; Z99.81 Dependence on supplemental oxygen; Z88.0 Allergy status to penicillin; Z91.011 Allergy to milk products
CPT/HCPCS: 36415; 71045; 80048; 80053; 82803; 83605; 83735; 83880; 84484; 85025; 85610; 85730; 87636; 93005; 94640; 94660; 94760; 96374; 96376; 99285

== ENCOUNTER 2024-02-28 15:11 | Emergency (ER) | payer MEDICARE, OTHER ==
[2024-02-28 15:35] VITALS: BP 103/64; TEMP 98.7
[2024-02-28] MEDS ORDERED: SODIUM CHLORIDE 0.9% 1,000 ML IV STA (15:52)
[2024-02-28] MEDS ORDERED: AZITHROMYCIN 500 MG in SODIUM CHLORIDE 0.9% 250 ML IVPB STA (15:52)
[2024-02-28] MEDS ORDERED: methylPREDNISolone SOD SUCCI 125 MG/2 ML VIAL IV STA (15:52)
--- NOTE | 2024-02-28 15:54 | ED ---
SOB HPI - General Chief Complaint: Shortness of Breath Stated Complaint: TK Time Seen by Provider: 02/28/24 15:24 Source: patient, RN notes reviewed, old records reviewed Mode of arrival: wheelchair Limitations: no limitations - History of Present Illness Initial Comments: This is a 53-year-old female to ER for severe COPD with shortness of breath sign ificant shortness of breath and COPD exacerbation here in the emergency department patient believes that the reason that her shortness of breath is so severe is because her oxygen tank ran out of oxygen while she was doing doctors appointments today. MD Complaint: shortness of breath, cough -: hour(s) Severity: severe Severity scale (1-10): 9 Consistency: constant Improves With: nothing Worsens With: nothing Known History Of: COPD - Related Data Home Medications Medication Instructions Recorded Confirmed Albuterol Sulfate [Albuterol 2 puff INHALATION RT-Q4H PRN 03/14/22 03/03/24 Sulfate Hfa] Bictegrav/Emtricit/Tenofov Ala 1 tab PO DAILY 08/10/23 03/03/24 [Biktarvy 50-200-25 mg Tablet] Ipratropium-Albuterol Nebulize 3 ml INHALATION RT-Q4H PRN 08/10/23 03/03/24 [Duoneb 0.5 mg-3 mg/3 ml Soln] Famotidine [Pepcid] 20 mg PO BID 09/30/23 03/03/24 Ondansetron [Zofran] 4 mg PO BID PRN 11/05/23 03/03/24 Fluticasone Propionate [Flonase 1 spray EA NOSTRIL DAILY PRN 11/27/23 03/03/24 Allergy Relief] Ibuprofen [Motrin Ib] 200 - 400 mg PO Q6H PRN 11/27/23 03/03/24 Simethicone [Gas-X] 125 - 250 mg PO ACHS PRN 11/27/23 03/03/24 Fluticasone/Umeclidin/Vilanter 1 puff INHALATION RT-DAILY 01/04/24 03/03/24 [Trelegy Ellipta 200-62.5-25] Mirtazapine [Remeron] 15 mg PO HS 01/04/24 03/03/24 Losartan [Cozaar] 50 mg PO BID 01/21/24 03/03/24 Nicotine 14Mg/24Hr Patch [Habitrol] 1 patch TRANSDERM DAILY 01/21/24 03/03/24 ALPRAZolam [Xanax] 0.5 - 1 mg PO Q8H PRN 03/03/24 03/03/24 HYDROcodone/APAP 5-325MG [[place] 1 tab PO Q6HR PRN 03/03/24 03/03/24 5-325] hydroCHLOROthiazide 12.5 mg PO DIRECTED 03/03/24 03/03/24 Previous Rx's Medication Instructions Recorded Ipratropium-Albuterol Nebulize 3 ml INHALATION RT-QID each 01/21/24 [Duoneb 0.5 mg-3 mg/3 ml Soln] Owcuvxlc-Virypndkvq-Duzs Oint 1 applic TOPICAL BID PRN each 02/14/24 [Triple Antibiotic Ointment] atenoloL [Tenormin] 50 mg PO DAILY #30 tab 02/14/24 Acetaminophen Tab [Tylenol] 650 mg PO Q4HR PRN tab 02/21/24 predniSONE See Taper PO DIRECTED #30 tab 02/21/24 Allergies Allergy/AdvReac Type Severity Reaction Status Date / Time Penicillins Allergy Anaphylaxis Verified 03/03/24 14:09 Review of Systems ROS Statement: Those systems with pertinent positive or pertinent negative responses have been documented in the HPI. ROS Other: All systems not noted in ROS Statement are negative. Past Medical History Past Medical History: Asthma, Blood Disorder, COPD, CVA/TIA Additional Past Medical History / Comment(s): HIV History of Any Multi-Drug Resistant Organisms: None Reported Past Surgical History: No Surgical Hx Reported Additional Past Surgical History / Comment(s): peg and tracheostomy reversal 2023 Past Anesthesia/Blood Transfusion Reactions: No Reported Reaction Past Psychological History: Anxiety, Depression, Panic Disorder Smoking Status: Former smoker Past Alcohol Use History: None Reported, Occasional Past Drug Use History: None Reported - Past Family History Mother History Unknown: Yes General Exam Limitations: no limitations General appearance: alert, anxious, in distress Head exam: Present: atraumatic, normocephalic, normal inspection Eye exam: Present: normal appearance, PERRL, EOMI. Absent: scleral icterus, conjunctival injection, periorbital swelling ENT exam: Present: normal exam, mucous membranes moist Neck exam: Present: normal inspection. Absent: tenderness, meningismus, lymphadenopathy Respiratory exam: Present: respiratory distress, wheezes, accessory muscle use, decreased breath sounds, prolonged expiratory. Absent: rales, rhonchi, stridor Cardiovascular Exam: Present: normal rhythm, tachycardia, normal heart sounds. Absent: systolic murmur, diastolic murmur, rubs, gallop, clicks GI/Abdominal exam: Present: soft, normal bowel sounds. Absent: distended, tenderness, guarding, rebound, rigid Extremities exam: Present: normal inspection, full ROM, normal capillary refill. Absent: tenderness, pedal edema, joint swelling, calf tenderness Back exam: Present: normal inspection Neurological exam: Present: alert, oriented X3, CN II-XII intact Psychiatric exam: Present: normal affect, normal mood Skin exam: Present: warm, dry, intact, normal color. Absent: rash Course Vital Signs 02/28/24 02/28/24 02/28/24 15:29 15:54 15:55 Temperature 98.7 F Pulse Rate 104 H 102 H Respiratory 22 32 H 20 Rate Blood Pressure 103/64 O2 Sat by Pulse 78 L 96 Oximetry 02/28/24 02/28/24 02/28/24 16:18 16:38 16:39 Temperature Pulse Rate 103 H 100 101 H Respiratory Rate Blood Pressure O2 Sat by Pulse Oximetry 02/28/24 17:04 Temperature Pulse Rate 105 H Respiratory Rate Blood Pressure O2 Sat by Pulse Oximetry - Reevaluation(s) Reevaluation #1: 02/28/24 15:54 Medical records reviewed Reevaluation #2: 02/28/24 16:19 Patient showing improvement on supplemental O2 Reevaluation #3: 02/28/24 16:19 Patient informed of results questions answered patient is now on further testing or evaluation patient will sign out AGAINST MEDICAL ADVICE Reevaluation #4: Was pt. sent in by a medical professional or institution (, PA, PLUG MACHINE OPERATOR, urgent care, hospital, or fpc...) When possible be specific @ -no Did you speak to anyone other than the patient for history (EMS, parent, family, police, friend...)? What history was obtained from this source @ -no Did you review nursing and triage notes (agree or disagree)? Why? @ -agree Are old charts reviewed (outside hosp., previous admission, EMS record, old EKG, old radiological studies, urgent care reports/EKG's, fpc records)? Report findings @ -yes Differential Diagnosis (chest pain, altered mental status, abdominal pain women, abdominal pain men, vaginal bleeding, weakness, fever, dyspnea, syncope, headache, dizziness, GI bleed, back pain, seizure, CVA, palpatations, mental health, musculoskeletal)? @ -prior EKG interpreted by me (3pts min.). @ -yes X-rays interpreted by me (1pt min.). @ -yes negative for acute disease CT interpreted by me (1pt min.). @ -no U/S interpreted by me (1pt. min.). @ -no What testing was considered but not performed or refused? (CT, X-rays, U/S, labs)? Why? @ -none What meds were considered but not given or refused? Why? @ -none Did you discuss the management of the patient with other professionals (pr ofessionals i.e. , PA, PLUG MACHINE OPERATOR, lab, RT, psych nurse, nephrology social worker, information systems planner, teacher, youth officer, case hardener)? Give summary @ -no Was smoking cessation discussed for >3mins.? @ -no Was critical care preformed (if so, how long)? @ -no Were there social determinants of health that impacted care today? How? (Homelessness, low income, unemployed, alcoholism, drug addiction, transportation, low edu. Level, literacy, decrease access to med. care, correction, rehab)? @ -none Was there de-escalation of care discussed even if they declined (Discuss DNR or withdrawal of care, Hospice)? DNR status @ -no What co-morbidities impacted this encounter? (DM, HTN, Smoking, COPD, CAD, Cancer, CVA, ARF, Chemo, Hep., AIDS, mental health diagnosis, sleep apnea, morbid obesity)? @ -none Was patient admitted / discharged? Hospital course, mention meds given and route, prescriptions, significant lab abnormalities, going to OR and other pertinent info. @ - 53 female signing out AGAINST MEDICAL ADVICE secondary to severe COPD exacerbation although she states it is resolved now with oxygen patient has a severe medical history of respiratory failure and intubation, BiPAP Discharged AGAINST MEDICAL ADVICE Undiagnosed new problem with uncertain prognosis? @ -no Drug Therapy requiring intensive monitoring for toxicity (Heparin, Nitro, Insulin, Cardizem)? @ -no Were any procedures done? @ -no Diagnosis/symptom? @ -COPD with respiratory failure and hypoxia Acute, or Chronic, or Acute on Chronic? @ -Acute Uncomplicated (without systemic symptoms) or Complicated (systemic symptoms)? @ -Complicated Side effects of treatment? @ -no Exacerbation, Progression, or Severe Exacerbation? @ -exacerbation Poses a threat to life or bodily function? How? (Chest pain, [place], [place], pneumonia, PE, COPD, DKA, ARF, appy, cholecystitis, CVA, Diverticulitis, Homicidal, Suicidal, threat to staff... and all critical care pts) @ -yes severe hypoxia Reevaluation #5: Differential Dyspnea: Coronary syndrome, arrhythmia, tamponade, asthma, COPD, pulmonary embolism, pneumonia, pneumothorax, pulmonary effusion, anaphylaxis, diabetic ketoacidosis, flailed chest, pulmonary contusion, diaphragmatic rupture, anemia, neuromuscular, this is not meant to be an all-inclusive list. Medical Decision Making - Medical Decision Making 53 female signing out AGAINST MEDICAL ADVICE secondary to severe COPD exacerbation although she states it is resolved now with oxygen patient has a severe medical history of respiratory failure and intubation, BiPAP Critical Care Time Critical Care Time: Yes Total Critical Care Time: 31 Disposition Clinical Impression: COPD (chronic obstructive pulmonary disease), Hypoxia, Acute respiratory failure Disposition: LEFT AGAINST MEDICAL ADVICE Condition: Fair Is patient prescribed a controlled substance at d/c from ED?: No Referrals: Francisco Harvey [Primary Care Provider] - 1-2 days Time of Disposition: 16:30
[2024-02-28 15:56] VITALS: RESP 20
[2024-02-28] MEDS: IPRATROPIUM 0.5 MG/2.5 ML NEBU INHALATION STA (16:18)
[2024-02-28] MEDS: ALBUTEROL NEBULIZED 2.5 MG/3 ML INHALATION STA (16:18)
--- NOTE | 2024-02-28 16:34 | XR ---
EXAMINATION TYPE: XR chest 1V portable DATE OF EXAM: 02/28/2024 COMPARISON: 02/21/2024 INDICATION: Short of breath history of COPD and asthma TECHNIQUE: Single frontal view of the chest is obtained. FINDINGS: The heart size is normal. The pulmonary vasculature is normal. The lungs are clear. There is hyperinflation and flattening the diaphragms compatible with COPD or asthma. IMPRESSION: 1. No acute pulmonary process. 2. Hyperinflation. [facility], Workstation: [facility], 02/28/2024 4:31 PM
[2024-02-28 17:04] VITALS: PULSE 105
== END 2024-02-28 17:17 | disposition left against medical advice (07) ==
LOC: EC 15:11
DX: J44.1 Chronic obstructive pulmonary disease with (acute) exacerbation (principal); J96.01 Acute respiratory failure with hypoxia; Z88.0 Allergy status to penicillin; Z87.891 Personal history of nicotine dependence
CPT/HCPCS: 71045; 94644; 99285

== ENCOUNTER 2024-03-03 13:36 | Inpatient (IN) | payer MEDICARE, OTHER ==
[2024-03-03] MEDS: ALBUTEROL NEBULIZED 2.5 MG/3 ML INHALATION STA (13:49)
--- NOTE | 2024-03-03 13:51 | ED ---
General Adult HPI - General Chief complaint: Shortness of Breath Stated complaint: TK Time Seen by Provider: 03/03/24 13:37 Source: patient, EMS Mode of arrival: EMS Limitations: no limitations - History of Present Illness Initial comments: Patient presents to the ED by ambulance for evaluation. Patient has COPD and is on home O2 therapy. Patient states that she has had worsening dyspnea since this morning. Patient also admits to having diffuse chest tightness. Patient reports giving herself four DuoNeb treatments prior to calling for an ambulance today. EMS states that they did not give the patient any treatment besides initiating CPAP. Patient has been switched over to BiPAP ventilation by RT on arrival to the ED. Patient denies trauma or injury, fever or chills, headache, focal numbness/weakness/neuro deficit, neck/arm/jaw/back pain, pleuritic pain, cough or cold symptoms, palpitations, dizziness, abdominal pain, nausea/vomiting/diarrhea, bloody or melanotic stool, decreased urine output, leg or calf swelling or pain, or any other symptoms or complaints. - Related Data Home Medications Medication Instructions Recorded Confirmed Albuterol Sulfate [Albuterol 2 puff INHALATION RT-Q4H PRN 03/14/22 03/03/24 Sulfate Hfa] Bictegrav/Emtricit/Tenofov Ala 1 tab PO DAILY 08/10/23 03/03/24 [Biktarvy 50-200-25 mg Tablet] Ipratropium-Albuterol Nebulize 3 ml INHALATION RT-Q4H PRN 08/10/23 03/03/24 [Duoneb 0.5 mg-3 mg/3 ml Soln] Famotidine [Pepcid] 20 mg PO BID 09/30/23 03/03/24 Ondansetron [Zofran] 4 mg PO BID PRN 11/05/23 03/03/24 Fluticasone Propionate [Flonase 1 spray EA NOSTRIL DAILY PRN 11/27/23 03/03/24 Allergy Relief] Ibuprofen [Motrin Ib] 200 - 400 mg PO Q6H PRN 11/27/23 03/03/24 Simethicone [Gas-X] 125 - 250 mg PO ACHS PRN 11/27/23 03/03/24 Fluticasone/Umeclidin/Vilanter 1 puff INHALATION RT-DAILY 01/04/24 03/03/24 [Trelegy Ellipta 200-62.5-25] Mirtazapine [Remeron] 15 mg PO HS 01/04/24 03/03/24 Losartan [Cozaar] 50 mg PO BID 01/21/24 03/03/24 Nicotine 14Mg/24Hr Patch [Habitrol] 1 patch TRANSDERM DAILY 01/21/24 03/03/24 ALPRAZolam [Xanax] 0.5 - 1 mg PO Q8H PRN 03/03/24 03/03/24 HYDROcodone/APAP 5-325MG [[place] 1 tab PO Q6HR PRN 03/03/24 03/03/24 5-325] hydroCHLOROthiazide 12.5 mg PO DIRECTED 03/03/24 03/03/24 Previous Rx's Medication Instructions Recorded Ipratropium-Albuterol Nebulize 3 ml INHALATION RT-QID each 01/21/24 [Duoneb 0.5 mg-3 mg/3 ml Soln] Ycaletkp-Nklqgscvrr-Fjnr Oint 1 applic TOPICAL BID PRN each 02/14/24 [Triple Antibiotic Ointment] atenoloL [Tenormin] 50 mg PO DAILY #30 tab 02/14/24 Acetaminophen Tab [Tylenol] 650 mg PO Q4HR PRN tab 02/21/24 predniSONE See Taper PO DIRECTED #30 tab 02/21/24 Allergies Allergy/AdvReac Type Severity Reaction Status Date / Time Penicillins Allergy Anaphylaxis Verified 03/03/24 14:09 Milk Containing Products AdvReac Nausea & Verified 03/03/24 14:09 (Dairy) Vomiting & Diarrhea Review of Systems ROS Statement: Those systems with pertinent positive or pertinent negative responses have been documented in the HPI. ROS Other: All systems not noted in ROS Statement are negative. Past Medical History Past Medical History: Asthma, Blood Disorder, COPD, CVA/TIA Additional Past Medical History / Comment(s): HIV History of Any Multi-Drug Resistant Organisms: None Reported Past Surgical History: No Surgical Hx Reported Additional Past Surgical History / Comment(s): peg and tracheostomy reversal 2023 Past Anesthesia/Blood Transfusion Reactions: No Reported Reaction Past Psychological History: Anxiety, Depression, Panic Disorder Smoking Status: Former smoker Past Alcohol Use History: None Reported, Occasional Past Drug Use History: None Reported - Past Family History Mother History Unknown: Yes General Exam Limitations: no limitations General appearance: alert Head exam: Present: normocephalic Eye exam: Present: normal appearance, PERRL Neck exam: Present: other (Trachea is in midline) Respiratory exam: Present: respiratory distress, wheezes, accessory muscle use, decreased breath sounds, prolonged expiratory. Absent: rales, rhonchi, stridor, chest wall tenderness Cardiovascular Exam: Present: regular rate, normal rhythm, normal heart sounds, other (Normal radial pulses bilaterally) GI/Abdominal exam: Present: soft. Absent: distended, tenderness, guarding Extremities exam: Present: pedal edema, other (Negative Homans' sign bilaterally). Absent: calf tenderness Neurological exam: Present: alert, oriented X3. Absent: motor sensory deficit Skin exam: Present: warm, dry, intact, normal color Course Vital Signs 03/03/24 03/03/24 03/03/24 13:38 13:43 13:53 Temperature 97.5 F L Pulse Rate 91 92 Respiratory 16 18 Rate Blood Pressure 123/81 O2 Sat by Pulse 90 L Oximetry Fraction of Inspired Oxygen (FIO2) 03/03/24 03/03/24 03/03/24 14:15 14:18 14:23 Temperature Pulse Rate 93 93 Respiratory 16 Rate Blood Pressure 104/70 O2 Sat by Pulse 99 Oximetry Fraction of 40 Inspired Oxygen (FIO2) - Reevaluation(s) Reevaluation #1: 03/03/24 15:14 Patient remains alert and responsive. Patient is now breathing more comfortably on BiPAP ventilation. Patient states that her dyspnea/breathing has improved with ED treatment. Patient denies development of any new symptoms while in the ED. Patient is aware of her test results, and she agrees with hospital admission at this time. 03/03/24 15:17 Case, H&P, test results and ED management thus far were discussed with Dr. Argueta. He accepts hospital admission. He agrees with pulmonology consultation. He has no further recommendations at this time. EKG Findings - EKG Comments: EKG Findings:: ED physician interpretation (interpreted by me): EKG is somewhat limited due to motion; normal sinus rhythm, ventricular rate of 91 bpm, no ectopy, normal NC and QRS intervals, normal QT interval, normal axis, no definite ST or T wave abnormality Medical Decision Making - Medical Decision Making Was pt. sent in by a medical professional or institution (, [facility], [employer], urgent care, hospital, or penitentiary...) When possible be specific @ -No Did you speak to anyone other than the patient for history (EMS, parent, family, police, friend...)? What history was obtained from this source @ -History was also provided by EMS. Did you review nursing and triage notes (agree or disagree)? Why? @ -I reviewed and agree with nursing and triage notes Were old charts reviewed (outside hosp., previous admission, EMS record, old EKG, old radiological studies, urgent care reports/EKG's, penitentiary records)? Report findings @ -No old charts were reviewed Differential Diagnosis (chest pain, altered mental status, abdominal pain women, abdominal pain men, vaginal bleeding, weakness, fever, dyspnea, syncope, headache, dizziness, GI bleed, back pain, seizure, CVA, palpatations, mental health, musculoskeletal)? @ -Differential Dyspnea: Coronary syndrome, arrhythmia, asthma, COPD, pneumonia, pneumothorax, pulmonary effusion, viral illness, hypercapnia, hypoxia, anemia, neuromuscular, this is not meant to be an all-inclusive list. EKG interpreted by me (3pts min.). @ -As above X-rays interpreted by me (1pt min.). @ -Chest X-ray was reviewed myself and shows no acute pulmonary process. I agree with the radiologist's interpretation as above. CT interpreted by me (1pt min.). @ -None done U/S interpreted by me (1pt. min.). @ -None done What testing was considered but not performed or refused? (CT, X-rays, U/S, labs)? Why? @ -None What meds were considered but not given or refused? Why? @ -None Did you discuss the management of the patient with other professionals (professionals i.e. , [facility], [employer], lab, RT, psych nurse, marriage and family social worker, engine wiper, teacher, defence force senior officer, rifle case repairer)? Give summary @ -As above. Was smoking cessation discussed for >3mins.? @ -No Was critical care preformed (if so, how long)? @ -Yes, 45 minutes. Were there social determinants of health that impacted care today? How? (Ho melessness, low income, unemployed, alcoholism, drug addiction, transportation, low edu. Level, literacy, decrease access to med. care, residential, rehab)? @ -No Was there de-escalation of care discussed even if they declined (Discuss DNR or withdrawal of care, Hospice)? DNR status @ -No What co-morbidities impacted this encounter? (DM, HTN, Smoking, COPD, CAD, Cancer, CVA, ARF, Chemo, Hep., AIDS, mental health diagnosis, sleep apnea, morbid obesity)? @ -COPD Was patient admitted / discharged? Hospital course, mention meds given and route, prescriptions, significant lab abnormalities, going to OR and other pertinent info. @ -Patient was placed on BiPAP ventilation on arrival to the ED, and she has been treated with IV Solu-Medrol, as well as a continuous albuterol neb treatment. Patient's breathing/respiratory distress have improved with ED management. Patient remains alert and responsive. Patient's troponin is negative. Patient's chest x-ray is fairly unremarkable. I suspect that the patient's symptoms are likely due to COPD exacerbation. Will admit the patient to the hospital for continued management. Dr. Argueta has accepted hospital admission. Undiagnosed new problem with uncertain prognosis? @ -No Drug Therapy requiring intensive monitoring for toxicity (Heparin, Nitro, Insulin, Cardizem)? @ -No Were any procedures done? @ -No Diagnosis/symptom? @ -COPD exacerbation, hypercapnia, respiratory distress Acute, or Chronic, or Acute on Chronic? @ -Acute on chronic Uncomplicated (without systemic symptoms) or Complicated (systemic symptoms)? @ -Default Side effects of treatment? @ -No Exacerbation, Progression, or Severe Exacerbation? @ -Exacerbation Poses a threat to life or bodily function? How? (Chest pain, [place], SD, pneumonia, PE, COPD, DKA, ARF, appy, cholecystitis, CVA, Diverticulitis, Homicidal, Suicidal, threat to staff... and all critical care pts) @ -Potentially. - Lab Data Result diagrams: 03/03/24 13:48 03/03/24 13:48 Lab Results 03/03/24 03/03/24 03/03/24 Range/Units 13:48 13:48 13:48 WBC 10.4 (3.8-10.6) k/uL RBC 3.43 L (3.80-5.40) m/uL Hgb 11.0 L (11.4-16.0) gm/dL Hct 34.6 (34.0-46.0) % MCV 100.7 H (80.0-100.0) fL MCH 32.0 (25.0-35.0) pg MCHC 31.8 (31.0-37.0) g/dL RDW 14.7 (11.5-15.5) % Plt Count 391 (150-450) k/uL MPV 6.6 Neutrophils % 84 % Lymphocytes % 9 % Monocytes % 4 % Eosinophils % 1 % Basophils % 1 % Neutrophils # 8.7 H (1.3-7.7) k/uL Lymphocytes # 1.0 (1.0-4.8) k/uL Monocytes # 0.4 (0-1.0) k/uL Eosinophils # 0.1 (0-0.7) k/uL Basophils # 0.1 (0-0.2) k/uL Hypochromasia Moderate Macrocytosis Slight PT 9.7 L (10.0-12.5) sec INR 0.9 (<1.2) APTT 23.7 (22.0-30.0) sec Sample Site ABG pH (7.35-7.45) ABG pCO2 (35-45) mmHg ABG pO2 (83-108) mmHg ABG HCO3 (21-25) mmol/L ABG Total CO2 (19-24) mmol/L ABG O2 Saturation (94-97) % ABG Base Excess mmol/L Milton Test Hemoglobin (11.4-16.0) gm/dL FiO2 % Sodium 133 L (137-145) mmol/L Potassium 5.2 H (3.5-5.1) mmol/L Chloride 87 L (98-107) mmol/L Carbon Dioxide 44 H* (22-30) mmol/L Anion Gap 2 mmol/L BUN 14 (7-17) mg/dL Creatinine 0.29 L (0.52-1.04) mg/dL Est GFR (CKD-EPI)AfAm >90 (>60 ml/min/1.73 sqM) Est GFR (CKD-EPI)NonAf >90 (>60 ml/min/1.73 sqM) Glucose 133 H (74-99) mg/dL Plasma Lactic Acid Jarad (0.7-2.0) mmol/L Calcium 8.8 (8.4-10.2) mg/dL Total Bilirubin 0.4 (0.2-1.3) mg/dL AST 32 (14-36) U/L ALT 26 (4-34) U/L Alkaline Phosphatase 81 (38-126) U/L Troponin I (0.000-0.034) ng/mL NT-Pro-B Natriuret Pep 168 pg/mL Total Protein 6.5 (6.3-8.2) g/dL Albumin 4.1 (3.5-5.0) g/dL 03/03/24 03/03/24 03/03/24 Range/Units 13:48 13:48 14:05 WBC (3.8-10.6) k/uL RBC (3.80-5.40) m/uL Hgb (11.4-16.0) gm/dL Hct (34.0-46.0) % MCV (80.0-100.0) fL MCH (25.0-35.0) pg MCHC (31.0-37.0) g/dL RDW (11.5-15.5) % Plt Count (150-450) k/uL MPV Neutrophils % % Lymphocytes % % Monocytes % % Eosinophils % % Basophils % % Neutrophils # (1.3-7.7) k/uL Lymphocytes # (1.0-4.8) k/uL Monocytes # (0-1.0) k/uL Eosinophils # (0-0.7) k/uL Basophils # (0-0.2) k/uL Hypochromasia Macrocytosis PT (10.0-12.5) sec INR (<1.2) APTT (22.0-30.0) sec Sample Site lbrac ABG pH 7.30 L (7.35-7.45) ABG pCO2 93 H* (35-45) mmHg ABG pO2 133 H (83-108) mmHg ABG HCO3 46 H* (21-25) mmol/L ABG Total CO2 48 H (19-24) mmol/L ABG O2 Saturation 99.4 H (94-97) % ABG Base Excess 15.9 mmol/L Milton Test Yes Hemoglobin 10.0 L (11.4-16.0) gm/dL FiO2 50 % Sodium (137-145) mmol/L Potassium (3.5-5.1) mmol/L Chloride (98-107) mmol/L Carbon Dioxide (22-30) mmol/L Anion Gap mmol/L BUN (7-17) mg/dL Creatinine (0.52-1.04) mg/dL Est GFR (CKD-EPI)AfAm (>60 ml/min/1.73 sqM) Est GFR (CKD-EPI)NonAf (>60 ml/min/1.73 sqM) Glucose (74-99) mg/dL Plasma Lactic Acid Jarad 1.0 (0.7-2.0) mmol/L Calcium (8.4-10.2) mg/dL Total Bilirubin (0.2-1.3) mg/dL AST (14-36) U/L ALT (4-34) U/L Alkaline Phosphatase (38-126) U/L Troponin I <0.012 (0.000-0.034) ng/mL NT-Pro-B Natriuret Pep pg/mL Total Protein (6.3-8.2) g/dL Albumin (3.5-5.0) g/dL - Radiology Data Chest x-ray: No acute pulmonary process. Critical Care Time Critical Care Time: Yes Total Critical Care Time: 45 Disposition Clinical Impression: COPD exacerbation, Respiratory distress, Hypercapnia Disposition: ADMITTED IP TO THIS HOSP Condition: Stable Is patient prescribed a controlled substance at d/c from ED?: No Referrals: Deirdre Ashley NPC [Primary Care Provider] - 1-2 days Time of Disposition: 15:17
[2024-03-03] MEDS: methylPREDNISolone SOD SUCCI 125 MG/2 ML VIAL IV STA (13:55)
[2024-03-03 13:59] LABS: Basophils # (A) 0.1 k/uL (0-0.2); Basophils % (A) 1 %; Eosinophils # (A) 0.1 k/uL (0-0.7); Eosinophils % (A) 1 %; HCT 34.6 % (34.0-46.0); Hypochromasia Moderate; Lymphocytes % (A) 9 %; MCHC 31.8 g/dL (31.0-37.0); MCV 100.7 fL (80.0-100.0); Macrocytosis Slight; Mean Platelet Volume 6.6; Monocytes # (A) 0.4 k/uL (0-1.0); Monocytes % (A) 4 %; Neutrophils # (A) 8.7 k/uL (1.3-7.7); Neutrophils % (A) 84 %; Platelet Count 391 k/uL (150-450); RBC 3.43 m/uL (3.80-5.40); RDW 14.7 % (11.5-15.5); WBC 10.4 k/uL (3.8-10.6)
[2024-03-03 14:08] LABS: INR 0.9 (<1.2); Partial Thromboplastin Time 23.7 sec (22.0-30.0); Prothrombin Time 9.7 sec (10.0-12.5)
[2024-03-03 14:08] LABS: ABG Base Excess 15.9 mmol/L; ABG Oxygen Saturation 99.4 % (94-97); ABG PO2 133 mmHg (83-108); ABG TCO2 48 mmol/L (19-24); Allen Test Performed? Yes
[2024-03-03 14:12] LABS: ABG HCO3 46 mmol/L (21-25); ABG PCO2 93 mmHg (35-45)
[2024-03-03 14:12] LABS: ALT 26 U/L (4-34); AST 32 U/L (14-36); African American GFR (CKD) >90 (>60 ml/min/1.73 sqM); Albumin 4.1 g/dL (3.5-5.0); Alkaline Phosphatase 81 U/L (38-126); Blood Urea Nitrogen 14 mg/dL (7-17); Calcium 8.8 mg/dL (8.4-10.2); Chloride 87 mmol/L (98-107); Glucose 133 mg/dL (74-99); Non-African American GFR(CKD) >90 (>60 ml/min/1.73 sqM); Potassium 5.2 mmol/L (3.5-5.1); Sodium 133 mmol/L (137-145); Total Bilirubin 0.4 mg/dL (0.2-1.3); Total Protein 6.5 g/dL (6.3-8.2)
[2024-03-03 14:19] LABS: Anion Gap 2 mmol/L
[2024-03-03 14:21] LABS: NT-Pro-B-Type Natriuretic Pept 168 pg/mL
--- NOTE | 2024-03-03 14:42 | XR ---
EXAMINATION TYPE: XR chest 1V portable DATE OF EXAM: 03/03/2024 COMPARISON: 02/28/2024 INDICATION: Dyspnea TECHNIQUE: Single frontal view of the chest is obtained. FINDINGS: The heart size is normal. The pulmonary vasculature is normal. The lungs are clear. IMPRESSION: 1. No acute pulmonary process. [facility], Workstation: -[facility], 03/03/2024 2:39 PM
[2024-03-03 14:51] LABS: Carbon Dioxide 44 mmol/L (22-30)
[2024-03-03] MEDS ORDERED: NALOXONE 0.4 MG/ML 1 ML VIAL IV PRN (15:19)
[2024-03-03] MEDS: ALBUTEROL NEBULIZED 2.5 MG/3 ML INHALATION SCH (17:29)
[2024-03-03] MEDS ORDERED: ALBUTEROL NEBULIZED 2.5 MG/3 ML INHALATION PRN (20:59)
[2024-03-03] MEDS ORDERED: IBUPROFEN 400 MG TAB PO PRN (21:25)
[2024-03-03] MEDS: hydroCHLOROthiazide 12.5 MG CAP PO SCH (22:07)
[2024-03-03] MEDS: MIRTAZAPINE 15 MG TAB PO SCH (22:31)
[2024-03-04] MEDS: SODIUM CHLORIDE 0.9% 1,000 ML IV ONE (00:29)
[2024-03-04] MEDS: SODIUM CHLORIDE 0.9% 500 ML 500 ML IV ONE (00:34)
[2024-03-04] MEDS: SODIUM CHLORIDE 0.9% 1,000 ML IV SCH (03:58)
[2024-03-04] MEDS: ALPRAZolam 0.5 MG TAB PO PRN (04:11)
[2024-03-04 06:56] LABS: Basophils % (A) 0 %; Eosinophils % (A) 0 %; Hypochromasia Marked; Lymphocytes % (A) 14 %; MCH 31.1 pg (25.0-35.0); MCHC 30.2 g/dL (31.0-37.0); MCV 103.1 fL (80.0-100.0); Macrocytosis Slight; Mean Platelet Volume 6.6; Monocytes # (A) 0.5 k/uL (0-1.0); Monocytes % (A) 7 %; Neutrophils # (A) 5.5 k/uL (1.3-7.7); Neutrophils % (A) 77 %; Platelet Count 333 k/uL (150-450); RBC 2.91 m/uL (3.80-5.40); RDW 14.5 % (11.5-15.5); WBC 7.2 k/uL (3.8-10.6)
[2024-03-04 07:12] LABS: HGB 9.1 gm/dL (11.4-16.0)
[2024-03-04 07:17] LABS: ALT 23 U/L (4-34); African American GFR (CKD) >90 (>60 ml/min/1.73 sqM); Anion Gap -1 mmol/L; Blood Urea Nitrogen 12 mg/dL (7-17); Calcium 7.9 mg/dL (8.4-10.2); Chloride 97 mmol/L (98-107); Glucose 119 mg/dL (74-99); Non-African American GFR(CKD) >90 (>60 ml/min/1.73 sqM); Sodium 136 mmol/L (137-145); Total Bilirubin 0.3 mg/dL (0.2-1.3); Total Protein 5.1 g/dL (6.3-8.2)
[2024-03-04 07:41] LABS: Carbon Dioxide 37 mmol/L (22-30)
[2024-03-04] MEDS: ALBUTEROL NEBULIZED 2.5 MG/3 ML INHALATION SCH (07:50)
[2024-03-04 07:51] LABS: AST 27 U/L (14-36); Alkaline Phosphatase 55 U/L (38-126); Potassium 5.1 mmol/L (3.5-5.1)
[2024-03-04] MEDS: LOSARTAN 50 MG TAB PO SCH (08:20)
[2024-03-04] MEDS: FAMOTIDINE 20 MG TAB PO SCH (08:20)
[2024-03-04] MEDS: atenoloL 50 MG TAB PO SCH (08:20)
[2024-03-04] MEDS: NICOTINE 14MG/24HR PATCH TRANSDERM SCH (08:20)
[2024-03-04] MEDS: NON FORMULARY DRUG (Bictegrav/Emtricit/Tenofov Ala [Biktarvy 50-200-25 Mg Tablet] 1 EACH T PO SCH (08:23)
[2024-03-04] MEDS: IPRATROPIUM-ALBUTEROL 3 ML NEB INHALATION SCH (11:35)
[2024-03-04] MEDS: PANTOPRAZOLE 40 MG/10 ML VIAL IVP SCH (11:58)
[2024-03-04 14:01] LABS: HCT 29.7 % (34.0-46.0); HGB 9.1 gm/dL (11.4-16.0); Hypochromasia Marked; MCH 31.5 pg (25.0-35.0); MCHC 30.7 g/dL (31.0-37.0); MCV 102.5 fL (80.0-100.0); Macrocytosis Slight; Mean Platelet Volume 7.4; Platelet Count 347 k/uL (150-450); RDW 14.9 % (11.5-15.5); WBC 7.9 k/uL (3.8-10.6)
--- NOTE | 2024-03-04 16:19 | P.CNPUL ---
History of Present Illness Consult date: 03/04/24 Reason for consult: dyspnea, COPD History of present illness: This is a 53-year-old female patient with known history of advanced COPD and previous history of HIV. The patient has been oxygen dependent and she utilizes Trelegy Ellipta on an outpatient basis as maintenance send maintained on prednisone 10 mg p.o. daily. She is on 2.5 L of oxygen on outpatient basis. Her most recent CD4 count is above 300 with an undetectable viral count. The patient came into the emergency department because of worsening shortness of breath. She also had some dry heaves and nausea. No abdominal pain. No reported fever chills or night sweats. No bright red blood per rectum. No evidence of any GI bleeding. At this point in time, the patient is calm and comfortable and she is on oxygen at 2 L/min nasal cannula. Her white cell count is 7.9 with a hemoglobin 9.1 and a platelet count of 347. Blood gases from yesterday Emergency Department showed a pH of 7.3 with a pCO2 of 93 and pO2 133 and this was done an FiO2 of 50%. I believe this was done while the patient being on a BiPAP. BUN is 12 with a creatinine of 0.27 and a sodium levels at 136. Potassium level is at 5.1. She is a chronic smoker. In the emergency, the patient was briefly placed on the BiPAP and currently she is off BiPAP, no signs of any CO2 narcosis. This patient has had multiple hospitalization and recurrent prescription exacerbation. She is a chronic smoker. Her last discharge from the hospital was on 02/22/2024 Review of Systems Eyes: denies as per HPI, denies blurred vision, denies bulging eye, denies decreased vision, denies diplopia, denies discharge, denies dry eye, denies irritation, denies itching, denies pain, denies photophobia, denies loss of peripheral vision, denies loss of vision, denies tunnel vision/blind spots Ears: deny: decreased hearing, ear discharge, earache, tinnitus Ears, nose, mouth and throat: Reports as per HPI Breasts: absent: as per HPI, change in shape, gynecomastia, masses, nipple discharge, pain, skin changes, swelling Cardiovascular: Reports decreased exercise tolerance, Reports dyspnea on exertion Respiratory: Reports cough, Reports dyspnea, Reports wheezing Gastrointestinal: Reports as per HPI Genitourinary: Reports as per HPI Menstruation: Reports as per HPI Musculoskeletal: Reports as per HPI Musculoskeletal: absent: ankle pain, ankle stiffness, ankle swelling, as per HPI, elbow pain, elbow stiffness, elbow swelling, foot pain, foot stiffness, foot swelling, hand pain, hand stiffness, hand swelling, hip pain, hip stiffness, hip swelling, knee pain, knee stiffness, knee swelling, shoulder pain, shoulder stiffness, shoulder swelling, wrist pain, wrist stiffness, wrist swelling Neurological: Reports as per HPI Psychiatric: Reports as per HPI, increased anxiety Endocrine: Reports as per HPI Hematologic/Lymphatic: Reports as per HPI Allergic/Immunologic: Reports as per HPI Past Medical History Past Medical History: Asthma, Blood Disorder, COPD, CVA/TIA, Hypertension Additional Past Medical History / Comment(s): HIV, anxiety History of Any Multi-Drug Resistant Organisms: None Reported Past Surgical History: No Surgical Hx Reported Additional Past Surgical History / Comment(s): peg and tracheostomy reversal 2023 Past Anesthesia/Blood Transfusion Reactions: No Reported Reaction Smoking Status: Former smoker - Past Family History Mother History Unknown: Yes Family Medical History: CVA/TIA Father Family Medical History: Cancer Medications and Allergies Home Medications Medication Instructions Recorded Confirmed Type Albuterol Sulfate [Albuterol 2 puff INHALATION RT-Q4H PRN 03/14/22 03/03/24 History Sulfate Hfa] Bictegrav/Emtricit/Tenofov Ala 1 tab PO DAILY 08/10/23 03/03/24 History [Biktarvy 50-200-25 mg Tablet] Ipratropium-Albuterol Nebulize 3 ml INHALATION RT-Q4H PRN 08/10/23 03/03/24 Hist ory [Duoneb 0.5 mg-3 mg/3 ml Soln] Famotidine [Pepcid] 20 mg PO BID 09/30/23 03/03/24 History Ondansetron [Zofran] 4 mg PO BID PRN 11/05/23 03/03/24 History Fluticasone Propionate [Flonase 1 spray EA NOSTRIL DAILY PRN 11/27/23 03/03/24 History Allergy Relief] Ibuprofen [Motrin Ib] 200 - 400 mg PO Q6H PRN 11/27/23 03/03/24 History Simethicone [Gas-X] 125 - 250 mg PO ACHS PRN 11/27/23 03/03/24 History Fluticasone/Umeclidin/Vilanter 1 puff INHALATION RT-DAILY 01/04/24 03/03/24 History [Trelegy Ellipta 200-62.5-25] Mirtazapine [Remeron] 15 mg PO HS 01/04/24 03/03/24 History Ipratropium-Albuterol Nebulize 3 ml INHALATION RT-QID each 01/21/24 03/03/24 Rx [Duoneb 0.5 mg-3 mg/3 ml Soln] Losartan [Cozaar] 50 mg PO BID 01/21/24 03/03/24 History Nicotine 14Mg/24Hr Patch [Habitrol] 1 patch TRANSDERM DAILY 01/21/24 03/03/24 History Kkxiajqf-Ueyhivotoe-Nkjm Oint 1 applic TOPICAL BID PRN each 02/14/24 03/03/24 Rx [Triple Antibiotic Ointment] atenoloL [Tenormin] 50 mg PO DAILY #30 tab 02/14/24 03/03/24 Rx Acetaminophen Tab [Tylenol] 650 mg PO Q4HR PRN tab 02/21/24 03/03/24 Rx predniSONE See Taper PO DIRECTED #30 tab 02/21/24 03/03/24 Rx ALPRAZolam [Xanax] 0.5 - 1 mg PO Q8H PRN 03/03/24 03/03/24 History HYDROcodone/APAP 5-325MG [[place] 1 tab PO Q6HR PRN 03/03/24 03/03/24 History 5-325] hydroCHLOROthiazide 12.5 mg PO DIRECTED 03/03/24 03/03/24 History Allergies Allergy/AdvReac Type Severity Reaction Status Date / Time Penicillins Allergy Anaphylaxis Verified 03/03/24 14:09 Milk Containing Products AdvReac Nausea & Verified 03/03/24 14:09 (Dairy) Vomiting & Diarrhea Physical Exam Vitals: Vital Signs Temp Pulse Resp BP Pulse Ox FiO2 03/04/24 15:33 72 03/04/24 15:27 71 03/04/24 15:21 77 16 100 03/04/24 14:23 68 18 99/63 92 L 03/04/24 12:43 75 20 108/76 100 03/04/24 12:14 78 18 03/04/24 10:54 73 03/04/24 10:48 72 03/04/24 10:39 22 94 L 03/04/24 09:38 65 18 93/66 92 L 03/04/24 08:14 75 18 108/82 100 03/04/24 08:01 72 03/04/24 07:53 70 03/04/24 07:46 69 18 112/65 96 03/04/24 06:36 97.9 F 81 19 102/70 96 03/04/24 04:35 98.0 F 75 20 126/85 100 03/04/24 04:13 22 99 03/04/24 04:07 99 03/04/24 04:00 40 03/04/24 03:12 86 19 92/68 100 03/04/24 01:00 73 20 108/93 100 03/04/24 00:35 76 92/53 100 03/04/24 00:14 77 19 78/42 99 03/03/24 23:43 82 19 86/50 100 03/03/24 22:03 85 20 105/62 100 03/03/24 21:04 88 03/03/24 20:58 84 03/03/24 20:04 97.4 F L 93 22 119/69 99 03/03/24 19:00 94 20 92/60 98 03/03/24 18:00 98 20 100/60 98 03/03/24 17:35 89 03/03/24 17:31 40 03/03/24 17:30 87 03/03/24 17:03 86 18 115/68 93 L GENERAL EXAM: Arousable, 53-year-old female, on 2 L of oxygen by nasal cannula. The patient is off the BiPAP. Able to communicate without any major difficulties. No signs of any CO2 narcosis. HEAD: Normocephalic. EYES: Normal reaction of pupils, equal size. NOSE: Clear with pink turbinates. THROAT: No erythema or exudates. NECK: No masses, no JVD. CHEST: No chest wall deformity. LUNGS: Equal air entry with bilateral end expiratory wheeze. CVS: S1 and S2 normal with no audible murmur, regular rhythm. ABDOMEN: No hepatosplenomegaly, normal bowel sounds, no guarding or rigidity. SPINE: No scoliosis or deformity SKIN: No rashes CENTRAL NERVOUS SYSTEM: No focal deficits, tone is normal in all 4 extremities. EXTREMITIES: There is no peripheral edema. No clubbing, no cyanosis. Peripheral pulses are intact. Results - Laboratory Findings CBC and BMP: 03/04/24 13:18 03/04/24 06:24 ABG ABG pH 7.30 (7.35-7.45) L 03/03/24 14:05 ABG pCO2 93 mmHg (35-45) H* 03/03/24 14:05 ABG pO2 133 mmHg (83-108) H 03/03/24 14:05 ABG O2 Saturation 99.4 % (94-97) H 03/03/24 14:05 PT/INR, D-dimer PT 9.7 sec (10.0-12.5) L 03/03/24 13:48 INR 0.9 (<1.2) 03/03/24 13:48 Abnormal lab findings: Abnormal Labs 03/03/24 03/03/24 03/03/24 13:48 13:48 13:48 RBC 3.43 L Hgb 11.0 L Hct MCV 100.7 H MCHC Neutrophils # 8.7 H PT 9.7 L ABG pH ABG pCO2 ABG pO2 ABG HCO3 ABG Total CO2 ABG O2 Saturation Hemoglobin Sodium 133 L Potassium 5.2 H Chloride 87 L Carbon Dioxide 44 H* Creatinine 0.29 L Glucose 133 H Calcium Total Protein Albumin 03/03/24 03/04/24 03/04/24 14:05 06:24 06:24 RBC 2.91 L Hgb 9.1 L D Hct 30.0 L MCV 103.1 H MCHC 30.2 L Neutrophils # PT ABG pH 7.30 L ABG pCO2 93 H* ABG pO2 133 H ABG HCO3 46 H* ABG Total CO2 48 H ABG O2 Saturation 99.4 H Hemoglobin 10.0 L Sodium 136 L Potassium Chloride 97 L Carbon Dioxide 37 H Creatinine 0.27 L Glucose 119 H Calcium 7.9 L Total Protein 5.1 L Albumin 3.0 L 03/04/24 13:18 RBC 2.90 L Hgb 9.1 L Hct 29.7 L MCV 102.5 H MCHC 30.7 L Neutrophils # PT ABG pH ABG pCO2 ABG pO2 ABG HCO3 ABG Total CO2 ABG O2 Saturation Hemoglobin Sodium Potassium Chloride Carbon Dioxide Creatinine Glucose Calcium Total Protein Albumin Assessment and Plan Plan: Acute on chronic shortness of breath, secondary to COPD exacerbation and the patient's blood gas indicated a component of an acute on top of chronic hypercapnic respiratory failure, initially treated with a BiPAP and currently she is on 2 L of oxygen by nasal cannula., Comfortable, no signs of any CO2 narcosis. Chest x-ray shows no acute abnormalities. Acute hypoxemic and hypercapnic respiratory failure, secondary to COPD exacerbation. Ongoing tobacco use with nicotine addiction. Multiple hospital admissions, more than 10 admissions this year alone, since July 2023, discharged from the hospital on 02/22/2024 Previous history of ventilator dependent respiratory failure with previous tracheostomy and PEG tube placement, with subsequent Decannulization, and PEG tube removal. Severe/stage IV COPD, with an FEV1 that is 22% of predicted. Chronic hypoxemic respiratory failure, on home O2, 21/11. Acquired immunodeficiency syndrome. Adequate CD4 count and undetectable viral count History of upper lobe pulmonary nodule, being monitored. Chronic metabolic alkalosis secondary to hypercapnic respiratory failure Plan: Discontinue the BiPAP and put the patient on treatment oxygen by nasal cannula May continue using BiPAP on and off during the day and overnight. Start the patient on IV Solu-Medrol 60 mg every 6 hours IV fluid to KVO The patient will be placed back on DuoNeb nebulized treatments [id number]. Allow the patient to use Trelegy Ellipta, from her home supply. Will continue to follow
--- NOTE | 2024-03-04 16:59 | P.HPIM ---
History of Present Illness H&P Date: 03/04/24 Chief Complaint: Dyspnea and chest tightness Patient is a 53 year old female with PMH of COPD on 2L home oxygen who presented to the ED with dyspnea and chest tightness. Patient had multiple admission over the last year with the last discharge from the hospital being on 01/23/2024 and most of the time patient has left AGAINST MEDICAL ADVICE. She mentions the shortness of breath started yesterday which she attributes to inhaling some chemicals that were at her house for renovation purposes. Throughout the day she took 4 Duoneb breathing treatments but that did not relieve her symptoms. She also reports some dry heaves throughout the day along with heartburn. Jeffrey daley she reports having 1 episode of vomiting while in the hospital. She also mentions of numbness in the tips of her fingers since 3 weeks. Denies fever, chills, abdominal pain,chest pain, palpitations, cough, hematuria, hematochezia, melena. Because of this worsening shortness of breath, EMS was called and patient was brought to the ER. ED documentation reviewed and case discussed with ED provider. She was put on BIPAP on 50% and was treated with Solumedrol. Patient mentions being uncomfortable on BIPAP, and requires Xanax to use BIPAP. Vitals: T 97.5F, P 91 bpm, RR 16, BP 123/81, O2 sat 90% on RA EKG: Independently interpreted as sinus rhythm, rate 91 bpm, QTc 377ms CXR: No acute pulmonary process CBC: Hb 11.0 -> 9.1, MCV 100.7->103.1 Coagulation panel: PT 9.7, INR 0.9, PTT 23.7 CMP: Na 133->136, K 5.2-> 5.1, bicarb 44-> 37 ABG: pH 7.30, pCO2 93, pO2 133 Review of systems: Pertinent positives and negatives as discussed in HPI, a complete review of systems was performed and all other systems are negative. PMH: Asthma, COPD, CVA, TIA, hypertension, HIV, anxiety FMH: CAD Social history: Tobacco: 30 pack years, has tried quitting since CVA in July 2023 Alcohol: Denies use Recreational drugs: Edible gummies occasionally Travel: No recent travel history Sick contacts: None Physical examination: Vital signs reviewed General: nontoxic, no distress, appears at stated age Derm: warm, dry, intact Head: atraumatic, normocephalic, symmetric Eyes: EOMI, anicteric sclera Mouth: no lip lesion, mucus membranes moist Cardiovascular: S1 S2 reg, no murmur Lungs: Diminished lung sounds Abdominal: soft, non-tender to palpataion Extremities: No cyanosis, clubbing, or pedal edema. Neuro: Alert, Oriented, Gross neurological examination did not reveal any focal deficits. Psych: well appearing, appropriate affect Assessment/Plan: Patient is a 53 year old female with PMH of COPD who presented to the ED for shortness of breath. She has been admitted for hypoxemic and hypercapnic respiratory failure. #. Acute Hypoxic and hypercapnic respiratory failure Acute COPD exacerbation Respiratory Acidosis Patient continues to be on 2 L of oxygen via nasal cannula Continue IV Solumedrol 60 mg every 6 hours Continue Nebulised albuterol 2.5 mg RT Q2H PRN and Duoneb 3 ml inhalation RT-QID May continue using BiPAP on and off during the day and overnight per pulmonology Continue home med Trelegy Ellipta 0.9 normal saline at 40 mL per hr #. Macrocytic anemia,possibly secondary to GI bleed Hb 9.1, MCV 103.1 Vit B12- 1037 and Folate 21.70 in 09/21 Consider stool occult blood test and GI consult tomorrow if repeat hemoglobin is low. Protonix 40 mg IVP daily for GI prophylaxis #. Hypotension BP 99/63 Hold home meds losartan and hydrochlorothiazide Continue 0.9 normal saline 40 mL/h #. Anxiety Continue with home med Xanax 0.5 mg p.o. every 8 hours as needed and mirtazapine 40 mg p.o. at bedtime #. HIV/AIDS Absolute CD4 count 142 on 02/28/24 Continue home med Biktarvy PO QD #. Tobacco dependence Continue nicotine 14 mg/24-hour patch #. Pain management [place] p.o. every 6 hours as needed F:0.9 normal saline at 40 ml/hr E:Replete as required N:Regular diet A:Ambulatory DVT prophylaxis: Heparin 5000 units SQ every 12 hours GI prophylaxis: Protonix 40 mg IV daily The patient is admitted with an anticipated less than 2 midnight stay for evaluation of shortness of breath CODE STATUS: Full Code Discussed with: Patient and Anticipated discharge place: Home Past Medical History Past Medical History: Asthma, Blood Disorder, COPD, CVA/TIA, Hypertension Additional Past Medical History / Comment(s): HIV, anxiety History of Any Multi-Drug Resistant Organisms: None Reported Past Surgical History: No Surgical Hx Reported Additional Past Surgical History / Comment(s): peg and tracheostomy reversal 2023 Past Anesthesia/Blood Transfusion Reactions: No Reported Reaction Smoking Status: Former smoker - Past Family History Mother History Unknown: Yes Family Medical History: CVA/TIA Father Family Medical History: Cancer Medications and Allergies Home Medications Medication Instructions Recorded Confirmed Type Albuterol Sulfate [Albuterol 2 puff INHALATION RT-Q4H PRN 03/14/22 03/03/24 History Sulfate Hfa] Bictegrav/Emtricit/Tenofov Ala 1 tab PO DAILY 08/10/23 03/03/24 History [Biktarvy 50-200-25 mg Tablet] Ipratropium-Albuterol Nebulize 3 ml INHALATION RT-Q4H PRN 08/10/23 03/03/24 History [Duoneb 0.5 mg-3 mg/3 ml Soln] Famotidine [Pepcid] 20 mg PO BID 09/30/23 03/03/24 History Ondansetron [Zofran] 4 mg PO BID PRN 11/05/23 03/03/24 History Fluticasone Propionate [Flonase 1 spray EA NOSTRIL DAILY PRN 11/27/23 03/03/24 History Allergy Relief] Ibuprofen [Motrin Ib] 200 - 400 mg PO Q6H PRN 11/27/23 03/03/24 History Simethicone [Gas-X] 125 - 250 mg PO ACHS PRN 11/27/23 03/03/24 History Fluticasone/Umeclidin/Vilanter 1 puff INHALATION RT-DAILY 01/04/24 03/03/24 History [Trelegy Ellipta 200-62.5-25] Mirtazapine [Remeron] 15 mg PO HS 01/04/24 03/03/24 History Ipratropium-Albuterol Nebulize 3 ml INHALATION RT-QID each 01/21/24 03/03/24 Rx [Duoneb 0.5 mg-3 mg/3 ml Soln] Losartan [Cozaar] 50 mg PO BID 01/21/24 03/03/24 History Nicotine 14Mg/24Hr Patch [Habitrol] 1 patch TRANSDERM DAILY 01/21/24 03/03/24 History Mwduejwy-Bsllwqlslc-Aqat Oint 1 applic TOPICAL BID PRN each 02/14/24 03/03/24 Rx [Triple Antibiotic Ointment] atenoloL [Tenormin] 50 mg PO DAILY #30 tab 02/14/24 03/03/24 Rx Acetaminophen Tab [Tylenol] 650 mg PO Q4HR PRN tab 02/21/24 03/03/24 Rx predniSONE See Taper PO DIRECTED #30 tab 02/21/24 03/03/24 Rx ALPRAZolam [Xanax] 0.5 - 1 mg PO Q8H PRN 03/03/24 03/03/24 History HYDROcodone/APAP 5-325MG [[place] 1 tab PO Q6HR PRN 03/03/24 03/03/24 History 5-325] hydroCHLOROthiazide 12.5 mg PO DIRECTED 03/03/24 03/03/24 History Allergies Allergy/AdvReac Type Severity Reaction Status Date / Time Penicillins Allergy Anaphylaxis Verified 03/03/24 14:09 Milk Containing Products AdvReac Nausea & Verified 03/03/24 14:09 (Dairy) Vomiting & Diarrhea Physical Exam Vitals: Vital Signs Temp Pulse Resp BP Pulse Ox FiO2 03/04/24 15:33 72 03/04/24 15:27 71 03/04/24 15:21 77 16 100 03/04/24 14:23 68 18 99/63 92 L 03/04/24 12:43 75 20 108/76 100 03/04/24 12:14 78 18 03/04/24 10:54 73 03/04/24 10:48 72 03/04/24 10:39 22 94 L 03/04/24 09:38 65 18 93/66 92 L 03/04/24 08:14 75 18 108/82 100 03/04/24 08:01 72 03/04/24 07:53 70 03/04/24 07:46 69 18 112/65 96 03/04/24 06:36 97.9 F 81 19 102/70 96 03/04/24 04:35 98.0 F 75 20 126/85 100 03/04/24 04:13 22 99 03/04/24 04:07 99 03/04/24 04:00 40 03/04/24 03:12 86 19 92/68 100 03/04/24 01:00 73 20 108/93 100 03/04/24 00:35 76 92/53 100 03/04/24 00:14 77 19 78/42 99 03/03/24 23:43 82 19 86/50 100 03/03/24 22:03 85 20 105/62 100 03/03/24 21:04 88 03/03/24 20:58 84 03/03/24 20:04 97.4 F L 93 22 119/69 99 03/03/24 19:00 94 20 92/60 98 03/03/24 18:00 98 20 100/60 98 03/03/24 17:35 89 03/03/24 17:31 40 03/03/24 17:30 87 03/03/24 17:03 86 18 115/68 93 L Results CBC & Chem 7: 03/04/24 13:18 03/04/24 06:24 Labs: Abnormal Lab Results - Last 24 Hours (Table) 03/04/24 03/04/24 03/04/24 Range/Units 06:24 06:24 13:18 RBC 2.91 L 2.90 L (3.80-5.40) m/uL Hgb 9.1 L D 9.1 L (11.4-16.0) gm/dL Hct 30.0 L 29.7 L (34.0-46.0) % MCV 103.1 H 102.5 H (80.0-100.0) fL MCHC 30.2 L 30.7 L (31.0-37.0) g/dL Sodium 136 L (137-145) mmol/L Chloride 97 L (98-107) mmol/L Carbon Dioxide 37 H (22-30) mmol/L Creatinine 0.27 L (0.52-1.04) mg/dL Glucose 119 H (74-99) mg/dL Calcium 7.9 L (8.4-10.2) mg/dL Total Protein 5.1 L (6.3-8.2) g/dL Albumin 3.0 L (3.5-5.0) g/dL Thrombosis Risk Factor Assmnt - Choose All That Apply Any of the Below Risk Factors Present?: Yes Each Factor Represents 1 point: Abnormal pulmonary function (COPD) Other Risk Factors: No Other congenital or acquired thrombophilia - If yes, enter type in comment: No Thrombosis Risk Factor Assessment Total Risk Factor Score: 1 Thrombosis Risk Factor Assessment Level: Low Risk
[2024-03-04] MEDS: methylPREDNISolone SOD SUCCI 125 MG/2 ML VIAL IV SCH (18:27)
[2024-03-04 20:06] LABS: Glucose,Whole Blood 192 mg/dL (70-110)
[2024-03-04] MEDS: HEPARIN SODIUM,PORCINE 5,000 UNIT/ML 1 ML VIAL SQ SCH (20:10)
[2024-03-04] MEDS: HYDROcodone/APAP 5-325MG 1 EACH TAB PO PRN (20:10)
[2024-03-05 06:27] LABS: Glucose,Whole Blood 236 mg/dL (70-110)
[2024-03-05 06:45] LABS: HCT 28.7 % (34.0-46.0); HGB 8.8 gm/dL (11.4-16.0); Hypochromasia Marked; MCH 31.4 pg (25.0-35.0); MCHC 30.8 g/dL (31.0-37.0); Macrocytosis Slight; Platelet Count 304 k/uL (150-450); RBC 2.81 m/uL (3.80-5.40); RDW 14.6 % (11.5-15.5); WBC 5.4 k/uL (3.8-10.6)
[2024-03-05] MEDS: INSULIN ASPART (NovoLOG) 100 UNIT/ML VIAL SQ SCH (06:45)
[2024-03-05 07:04] LABS: African American GFR (CKD) >90 (>60 ml/min/1.73 sqM); Blood Urea Nitrogen 15 mg/dL (7-17); Calcium 8.3 mg/dL (8.4-10.2); Chloride 95 mmol/L (98-107); Glucose 212 mg/dL (74-99); Non-African American GFR(CKD) >90 (>60 ml/min/1.73 sqM); Sodium 134 mmol/L (137-145)
[2024-03-05 07:11] LABS: Anion Gap 3 mmol/L
[2024-03-05 07:13] LABS: Carbon Dioxide 36 mmol/L (22-30)
[2024-03-05 11:17] LABS: Glucose,Whole Blood 218 mg/dL (70-110)
--- NOTE | 2024-03-05 13:19 | P.PN ---
Subjective Progress Note Date: 03/05/24 This is a 53-year-old female patient with known history of advanced COPD and previous history of HIV. The patient has been oxygen dependent and she utilizes Trelegy Ellipta on an outpatient basis as maintenance send maintained on prednisone 10 mg p.o. daily. She is on 2.5 L of oxygen on outpatient basis. Her most recent CD4 count is above 300 with an undetectable viral count. The patient came into the emergency department because of worsening shortness of breath. She also had some dry heaves and nausea. No abdominal pain. No reported fever chills or night sweats. No bright red blood per rectum. No evidence of any GI bleeding. At this point in time, the patient is calm and comfortable and she is on oxygen at 2 L/min nasal cannula. Her white cell count is 7.9 with a hemoglobin 9.1 and a platelet count of 347. Blood gases from yesterday Emergency Department showed a pH of 7.3 with a pCO2 of 93 and pO2 133 and this was done an FiO2 of 50%. I believe this was done while the patient being on a BiPAP. BUN is 12 with a creatinine of 0.27 and a sodium levels at 136. Potassium level is at 5.1. She is a chronic smoker. In the emergency, the patient was briefly placed on the BiPAP and currently she is off BiPAP, no signs of any CO2 narcosis. This patient has had multiple hospitalization and recurrent prescription exacerbation. She is a chronic smoker. Her last discharge from the hospital was on 02/22/2024 03/05/2024, the patient is awake and alert. Continues to receive treatment for an acuity of exacerbation the patient remains on a combination of DuoNeb nebulized treatments [id number], IV Solu-Medrol 60 mg every 6 hours. Oxygenation is unchanged. No signs of any CO2 narcosis. Remains on 2 L with a pulse ox of 99%. White cell count is at 5.4, hemoglobin is at 8.8 and a platelet count of 304. BUN is 15 with a creatinine of 0.37 and sodium is at 134. Objective - Vital Signs Vital signs: Vital Signs Temp 98.0 F 03/05/24 09:02 Pulse 87 03/05/24 09:02 Resp 16 03/05/24 09:02 BP 122/80 03/05/24 09:02 Pulse Ox 100 03/05/24 09:02 FiO2 0 03/05/24 04:29 Intake & Output 03/04/24 03/05/24 03/05/24 18:59 06:59 18:59 Intake Total 118 150 Balance 118 150 Weight 54.5 kg Intake: Oral 118 150 Other: Voiding Method External Catheter External Catheter # Voids 1 # Bowel Movements 1 - Exam GENERAL EXAM: Arousable, 53-year-old female, on 2 L of oxygen by nasal cannula. The patient is off the BiPAP. Able to communicate without any major difficulties. No signs of any CO2 narcosis. HEAD: Normocephalic. EYES: Normal reaction of pupils, equal size. NOSE: Clear with pink turbinates. THROAT: No erythema or exudates. NECK: No masses, no JVD. CHEST: No chest wall deformity. LUNGS: Equal air entry with bilateral end expiratory wheeze. CVS: S1 and S2 normal with no audible murmur, regular rhythm. ABDOMEN: No hepatosplenomegaly, normal bowel sounds, no guarding or rigidity. SPINE: No scoliosis or deformity SKIN: No rashes CENTRAL NERVOUS SYSTEM: No focal deficits, tone is normal in all 4 extremities. EXTREMITIES: There is no peripheral edema. No clubbing, no cyanosis. Peripher al pulses are intact. - Labs CBC & Chem 7: 03/05/24 06:16 03/05/24 06:16 Labs: Abnormal Lab Results - Last 24 Hours (Table) 03/04/24 03/04/24 03/05/24 Range/Units 13:18 20:05 06:16 RBC 2.90 L 2.81 L (3.80-5.40) m/uL Hgb 9.1 L 8.8 L (11.4-16.0) gm/dL Hct 29.7 L 28.7 L (34.0-46.0) % MCV 102.5 H 102.0 H (80.0-100.0) fL MCHC 30.7 L 30.8 L (31.0-37.0) g/dL Sodium (137-145) mmol/L Chloride (98-107) mmol/L Carbon Dioxide (22-30) mmol/L Creatinine (0.52-1.04) mg/dL Glucose (74-99) mg/dL POC Glucose (mg/dL) 192 H (70-110) mg/dL Calcium (8.4-10.2) mg/dL 03/05/24 03/05/24 Range/Units 06:16 06:26 RBC (3.80-5.40) m/uL Hgb (11.4-16.0) gm/dL Hct (34.0-46.0) % MCV (80.0-100.0) fL MCHC (31.0-37.0) g/dL Sodium 134 L (137-145) mmol/L Chloride 95 L (98-107) mmol/L Carbon Dioxide 36 H (22-30) mmol/L Creatinine 0.37 L (0.52-1.04) mg/dL Glucose 212 H (74-99) mg/dL POC Glucose (mg/dL) 236 H (70-110) mg/dL Calcium 8.3 L (8.4-10.2) mg/dL Assessment and Plan Plan: Acute on chronic shortness of breath, secondary to COPD exacerbation and the patient's blood gas indicated a component of an acute on top of chronic hyperca pnic respiratory failure, initially treated with a BiPAP and currently she is on 2 L of oxygen by nasal cannula., Comfortable, no signs of any CO2 narcosis. Chest x-ray shows no acute abnormalities. Acute hypoxemic and hypercapnic respiratory failure, secondary to COPD exacerbation. Ongoing tobacco use with nicotine addiction. Multiple hospital admissions, more than 10 admissions this year alone, since July 2023, discharged from the hospital on 02/22/2024 Previous history of ventilator dependent respiratory failure with previous tracheostomy and PEG tube placement, with subsequent Decannulization, and PEG tube removal. Severe/stage IV COPD, with an FEV1 that is 22% of predicted. Chronic hypoxemic respiratory failure, on home O2, 21/11. Acquired immunodeficiency syndrome. Adequate CD4 count and undetectable viral count History of upper lobe pulmonary nodule, being monitored. Chronic metabolic alkalosis secondary to hypercapnic respiratory failure Plan: Clinically stable Using the BiPAP overnight 2 L oxygen by nasal cannula IV Solu-Medrol 60 mg every 6 hours IV fluid to KVO The patient will be placed back on DuoNeb nebulized treatments [id number]. Allow the patient to use Trelegy Ellipta, from her home supply. Will continue to follow
[2024-03-05] MEDS ORDERED: SIMETHICONE 80 MG CHEWABLE PO PRN (14:49)
--- NOTE | 2024-03-05 14:54 | P.PN ---
Subjective Progress Note Date: 03/05/24 Principal diagnosis: Hospital course: Patient is a 53 year old female with PMH of COPD on 2L home oxygen who presented to the ED with dyspnea and chest tightness. Patient had multiple admission over the last year with the last discharge from the hospital being on 01/23/2024 and most of the time patient has left AGAINST MEDICAL ADVICE. She mentions the s hortness of breath started yesterday which she attributes to inhaling some chemicals that were at her house for renovation purposes. Throughout the day she took 4 Duoneb breathing treatments but that did not relieve her symptoms. She also reports some dry heaves throughout the day along with heartburn. Additionally she reports having 1 episode of vomiting while in the hospital. She also mentions of numbness in the tips of her fingers since 3 weeks. Denies fever, chills, abdominal pain,chest pain, palpitations, cough, hematuria, hematochezia, melena. Because of this worsening shortness of breath, EMS was called and patient was brought to the ER. ED documentation reviewed and case discussed with ED provider. She was put on BIPAP on 50% and was treated with Solumedrol. Patient mentions being uncomfortable on BIPAP, and requires Xanax to use BIPAP. Vitals: T 97.5F, P 91 bpm, RR 16, BP 123/81, O2 sat 90% on RA EKG: Independently interpreted as sinus rhythm, rate 91 bpm, QTc 377ms CXR: No acute pulmonary process CBC: Hb 11.0 -> 9.1, MCV 100.7->103.1 Coagulation panel: PT 9.7, INR 0.9, PTT 23.7 CMP: Na 133->136, K 5.2-> 5.1, bicarb 44-> 37 ABG: pH 7.30, pCO2 93, pO2 133 03/05/25: Patient seen and examined. She complains of runny nose, itchy eyes and heartburn. No acute events overnight. Used BIPAP last night at 13/10/39. Currently on 2L O2 via Nasal cannula. Review of systems: Pertinent positives and negatives as discussed in HPI, a complete review of systems was performed and all other systems are negative. Vitals: Signs Reviewed Physical examination: General: nontoxic, no distress, appears at stated age Derm: warm, dry, intact Head: atraumatic, normocephalic, symmetric Eyes: EOMI, anicteric sclera Mouth: no lip lesion, mucus membranes moist Cardiovascular: S1 S2 reg, no murmur Lungs: Diminished lung sounds Abdominal: soft, non-tender to palpataion Extremities: No cyanosis, clubbing, or pedal edema. Neuro: Alert, Oriented, Gross neurological examination did not reveal any focal deficits. Psych: well appearing, appropriate affect Assessment/Plan: Patient is a 53 year old female with PMH of COPD who presented to the ED for shortness of breath. She has been admitted for hypoxemic and hypercapnic respiratory failure. #. Acute on chronic hypoxemic and hypercapnic respiratory failure Acute COPD exacerbation Continue supplemental oxygen, currently on 2 L of oxygen via nasal cannula Continue IV Solumedrol 60 mg every 6 hours Continue Nebulised albuterol 2.5 mg RT Q2H PRN and Duoneb 3 ml inhalation RT-QID May continue using BiPAP on and off during the day and overnight per pulmonology Continue home med Trelegy Ellipta 0.9 normal saline at 40 mL per hr #. Hyperglycemia Continue Low dose Insulin sliding scale #. Anemia,possibly secondary to GI bleed Hb 8.8 Vit B12- 1037 and Folate 21.70 in 09/21 Protonix 40 mg IVP daily for GI prophylaxis Stool occult blood test ordered #. Heartburn Simethicone Chew 120mg PRN #.Mild Hyponatremia Na 134 Monitor BMP #. Hypotension BP 97/71 Hold home meds losartan and hydrochlorothiazide Continue 0.9 normal saline 40 mL/h #. Anxiety Continue with home med Xanax 0.5 mg p.o. every 8 hours as needed and mirtazapine 40 mg p.o. at bedtime #. HIV/AIDS Absolute CD4 count 142 on 02/28/24 Continue home med Biktarvy PO QD #. Tobacco dependence Continue nicotine 14 mg/24-hour patch #. Pain management [place] p.o. every 6 hours as needed F:0.9 normal saline at 40 ml/hr E:Replete as required N:Regular diet A:Ambulatory DVT prophylaxis: Heparin 5000 units SQ every 12 hours GI prophylaxis: Protonix 40 mg IV daily Objective - Vital Signs Vital signs: Vital Signs Temp 97.5 F L 03/05/24 04:29 Pulse 81 03/05/24 04:29 Resp 20 03/05/24 04:29 BP 97/71 03/05/24 04:29 Pulse Ox 95 03/05/24 04:29 FiO2 0 03/05/24 04:29 Intake & Output 03/04/24 03/05/24 03/05/24 18:59 06:59 18:59 Intake Total 118 Balance 118 Weight 54.5 kg Intake: Oral 118 Other: Voiding Method External Catheter # Voids 1 # Bowel Movements 1 - Labs CBC & Chem 7: 03/05/24 06:16 03/05/24 06:16 Labs: Abnormal Lab Results - Last 24 Hours (Table) 03/04/24 03/04/24 03/04/24 Range/Units 06:24 13:18 20:05 RBC 2.90 L (3.80-5.40) m/uL Hgb 9.1 L (11.4-16.0) gm/dL Hct 29.7 L (34.0-46.0) % MCV 102.5 H (80.0-100.0) fL MCHC 30.7 L (31.0-37.0) g/dL Sodium 136 L (137-145) mmol/L Chloride 97 L (98-107) mmol/L Carbon Dioxide 37 H (22-30) mmol/L Creatinine 0.27 L (0.52-1.04) mg/dL Glucose 119 H (74-99) mg/dL POC Glucose (mg/dL) 192 H (70-110) mg/dL Calcium 7.9 L (8.4-10.2) mg/dL Total Protein 5.1 L (6.3-8.2) g/dL Albumin 3.0 L (3.5-5.0) g/dL 03/05/24 03/05/24 03/05/24 Range/Units 06:16 06:16 06:26 RBC 2.81 L (3.80-5.40) m/uL Hgb 8.8 L (11.4-16.0) gm/dL Hct 28.7 L (34.0-46.0) % MCV 102.0 H (80.0-100.0) fL MCHC 30.8 L (31.0-37.0) g/dL Sodium 134 L (137-145) mmol/L Chloride 95 L (98-107) mmol/L Carbon Dioxide 36 H (22-30) mmol/L Creatinine 0.37 L (0.52-1.04) mg/dL Glucose 212 H (74-99) mg/dL POC Glucose (mg/dL) 236 H (70-110) mg/dL Calcium 8.3 L (8.4-10.2) mg/dL Total Protein (6.3-8.2) g/dL Albumin (3.5-5.0) g/dL
[2024-03-05 16:38] LABS: Glucose,Whole Blood 182 mg/dL (70-110)
[2024-03-05 20:07] LABS: Glucose,Whole Blood 196 mg/dL (70-110)
[2024-03-06 06:16] LABS: Glucose,Whole Blood 155 mg/dL (70-110)
[2024-03-06 08:48] LABS: HCT 30.3 % (34.0-46.0); HGB 9.4 gm/dL (11.4-16.0); Hypochromasia Marked; MCH 31.4 pg (25.0-35.0); MCHC 31.1 g/dL (31.0-37.0); MCV 100.9 fL (80.0-100.0); Macrocytosis Slight; Mean Platelet Volume 6.9; Platelet Count 341 k/uL (150-450); RBC 3.01 m/uL (3.80-5.40); RDW 14.6 % (11.5-15.5); WBC 7.8 k/uL (3.8-10.6)
[2024-03-06 09:02] LABS: African American GFR (CKD) >90 (>60 ml/min/1.73 sqM); Anion Gap 3 mmol/L; Blood Urea Nitrogen 23 mg/dL (7-17); Calcium 8.6 mg/dL (8.4-10.2); Chloride 93 mmol/L (98-107); Glucose 141 mg/dL (74-99); Non-African American GFR(CKD) >90 (>60 ml/min/1.73 sqM); Potassium 4.3 mmol/L (3.5-5.1); Sodium 136 mmol/L (137-145)
[2024-03-06 09:15] LABS: Carbon Dioxide 40 mmol/L (22-30)
[2024-03-06 11:15] LABS: Glucose,Whole Blood 221 mg/dL (70-110)
--- NOTE | 2024-03-06 12:23 | P.PN ---
Subjective Progress Note Date: 03/06/24 This is a 53-year-old female patient with known history of advanced COPD and previous history of HIV. The patient has been oxygen dependent and she utilizes Trelegy Ellipta on an outpatient basis as maintenance send maintained on prednisone 10 mg p.o. daily. She is on 2.5 L of oxygen on outpatient basis. Her most recent CD4 count is above 300 with an undetectable viral count. The patient came into the emergency department because of worsening shortness of breath. She also had some dry heaves and nausea. No abdominal pain. No reported fever chills or night sweats. No bright red blood per rectum. No evidence of any GI bleeding. At this point in time, the patient is calm and comfortable and she is on oxygen at 2 L/min nasal cannula. Her white cell count is 7.9 with a hemoglobin 9.1 and a platelet count of 347. Blood gases from yesterday Emergency Department showed a pH of 7.3 with a pCO2 of 93 and pO2 133 and this was done an FiO2 of 50%. I believe this was done while the patient being on a BiPAP. BUN is 12 with a creatinine of 0.27 and a sodium levels at 136. Potassium level is at 5.1. She is a chronic smoker. In the emergency, the patient was briefly placed on the BiPAP and currently she is off BiPAP, no signs of any CO2 narcosis. This patient has had multiple hospitalization and recurrent prescription exacerbation. She is a chronic smoker. Her last discharge from the hospital was on 02/22/2024 03/05/2024, the patient is awake and alert. Continues to receive treatment for an acuity of exacerbation the patient remains on a combination of DuoNeb nebulized treatments [id number], IV Solu-Medrol 60 mg every 6 hours. Oxygenation is unchanged. No signs of any CO2 narcosis. Remains on 2 L with a pulse ox of 99%. White cell count is at 5.4, hemoglobin is at 8.8 and a platelet count of 304. BUN is 15 with a creatinine of 0.37 and sodium is at 134. 03/06/2024, the patient is being seen for a follow-up. Doing well. No new complaints. No signs of any CO2 narcosis. Remains on DuoNeb the rest of his [id number]. Remains on IV Solu-Medrol. Feeling anxious. Xanax dose will be increased. WBC count is at 7.8, hemoglobin 9.4, BUN is 23 with a creatinine of 0.4. Serum bicarb is at 40. No chest pain. No angina. No palpitation. No altered mentation. Objective - Vital Signs Vital signs: Vital Signs Temp 97.8 F 03/06/24 07:20 Pulse 92 03/06/24 09:20 Resp 20 03/06/24 04:27 BP 127/81 03/06/24 07:20 Pulse Ox 97 03/06/24 09:10 FiO2 40 03/06/24 00:43 Intake & Output 03/05/24 03/06/24 03/06/24 18:59 06:59 18:59 Intake Total 1140 280 0 Balance 1140 280 0 Weight 58.5 kg Intake: Intake, IV Titration 280 Amount Sodium Chloride 0.9% 1, 280 000 ml @ 40 mls/hr IV . Q24H [facility] Rx#:[id number] Oral 1140 0 Other: Voiding Method External Catheter Bedside Commode Bedside Commode # Voids 1 # Bowel Movements 1 - Exam GENERAL EXAM: Arousable, 53-year-old female, on 2 L of oxygen by nasal cannula. The patient is off the BiPAP. Able to communicate without any major difficulties. No signs of any CO2 narcosis. HEAD: Normocephalic. EYES: Normal reaction of pupils, equal size. NOSE: Clear with pink turbinates. THROAT: No erythema or exudates. NECK: No masses, no JVD. CHEST: No chest wall deformity. LUNGS: Equal air entry with bilateral end expiratory wheeze. CVS: S1 and S2 normal with no audible murmur, regular rhythm. ABDOMEN: No hepatosplenomegaly, normal bowel sounds, no guarding or rigidity. SPINE: No scoliosis or deformity SKIN: No rashes CENTRAL NERVOUS SYSTEM: No focal deficits, tone is normal in all 4 extremities. EXTREMITIES: There is no peripheral edema. No clubbing, no cyanosis. Peripheral pulses are intact. - Labs CBC & Chem 7: 03/06/24 08:27 03/06/24 08:27 Labs: Abnormal Lab Results - Last 24 Hours (Table) 03/05/24 03/05/24 03/05/24 Range/Units 11:15 16:36 20:06 RBC (3.80-5.40) m/uL Hgb (11.4-16.0) gm/dL Hct (34.0-46.0) % MCV (80.0-100.0) fL Sodium (137-145) mmol/L Chloride (98-107) mmol/L Carbon Dioxide (22-30) mmol/L BUN (7-17) mg/dL Creatinine (0.52-1.04) mg/dL Glucose (74-99) mg/dL POC Glucose (mg/dL) 218 H 182 H 196 H (70-110) mg/dL 03/06/24 03/06/24 03/06/24 Range/Units 06:14 08:27 08:27 RBC 3.01 L (3.80-5.40) m/uL Hgb 9.4 L (11.4-16.0) gm/dL Hct 30.3 L (34.0-46.0) % MCV 100.9 H (80.0-100.0) fL Sodium 136 L (137-145) mmol/L Chloride 93 L (98-107) mmol/L Carbon Dioxide 40 H (22-30) mmol/L BUN 23 H (7-17) mg/dL Creatinine 0.40 L (0.52-1.04) mg/dL Glucose 141 H (74-99) mg/dL POC Glucose (mg/dL) 155 H (70-110) mg/dL Assessment and Plan Plan: Acute on chronic shortness of breath, secondary to COPD exacerbation and the patient's blood gas indicated a component of an acute on top of chronic hypercapnic respiratory failure, initially treated with a BiPAP and currently she is on 2 L of oxygen by nasal cannula., Comfortable, no signs of any CO2 narcosis. Chest x-ray shows no acute abnormalities. Acute hypoxemic and hypercapnic respiratory failure, secondary to COPD exacerbation. Ongoing tobacco use with nicotine addiction. Multiple hospital admissions, more than 10 admissions this year alone, since July 2023, discharged from the hospital on 02/22/2024 Previous history of ventilator dependent respiratory failure with previous tracheostomy and PEG tube placement, with subsequent Decannulization, and PEG tube removal. Severe/stage IV COPD, with an FEV1 that is 22% of predicted. Chronic hypoxemic respiratory failure, on home O2, 21/11. Acquired immunodeficiency syndrome. Adequate CD4 count and undetectable viral count History of upper lobe pulmonary nodule, being monitored. Chronic metabolic alkalosis secondary to hypercapnic respiratory failure Plan: Will continue same treatment Clinically stable Using the BiPAP overnight 2 L oxygen by nasal cannula IV Solu-Medrol 60 mg every 6 hours IV fluid to KVO Increase Xanax dose to 1 mg every 8 hours on a as needed basis The patient will be placed back on DuoNeb nebulized treatments [id number]. Allow the patient to use Trelegy Ellipta, from her home supply. Will continue to follow
--- NOTE | 2024-03-06 14:08 | P.PN ---
Subjective Progress Note Date: 03/06/24 Principal diagnosis: Hospital course: Patient is a 53 year old female with PMH of COPD on 2L home oxygen who presented to the ED with dyspnea and chest tightness. Patient had multiple admission over the last year with the last discharge from the hospital being on 01/23/2024 and most of the time patient has left AGAINST MEDICAL ADVICE. She mentions the s hortness of breath started yesterday which she attributes to inhaling some chemicals that were at her house for renovation purposes. Throughout the day she took 4 Duoneb breathing treatments but that did not relieve her symptoms. She also reports some dry heaves throughout the day along with heartburn. Additionally she reports having 1 episode of vomiting while in the hospital. She also mentions of numbness in the tips of her fingers since 3 weeks. Denies fever, chills, abdominal pain,chest pain, palpitations, cough, hematuria, hematochezia, melena. Because of this worsening shortness of breath, EMS was called and patient was brought to the ER. ED documentation reviewed and case discussed with ED provider. She was put on BIPAP on 50% and was treated with Solumedrol. Patient mentions being uncomfortable on BIPAP, and requires Xanax to use BIPAP. Vitals: T 97.5F, P 91 bpm, RR 16, BP 123/81, O2 sat 90% on RA EKG: Independently interpreted as sinus rhythm, rate 91 bpm, QTc 377ms CXR: No acute pulmonary process CBC: Hb 11.0 -> 9.1, MCV 100.7->103.1 Coagulation panel: PT 9.7, INR 0.9, PTT 23.7 CMP: Na 133->136, K 5.2-> 5.1, bicarb 44-> 37 ABG: pH 7.30, pCO2 93, pO2 133 03/05/25: Patient seen and examined. She complains of runny nose, itchy eyes and heartburn. No acute events overnight. Used BIPAP last night at 13/10/39. Currently on 2L O2 via Nasal cannula. 03/06/24: Patient seen and examined at bedside. No acute events overnight. She mentions her breathing is better today. Currently on 2L O2 via nasal cannula. Complains of nausea. Denies abdominal pain, vomiting, chest pain, palpitations. Used BIPAP last night at 16//40% Review of systems: Pertinent positives and negatives as discussed in HPI, a complete review of systems was performed and all other systems are negative. Vitals: Signs Reviewed Physical examination: Vital signs reviewed General: nontoxic, no distress, appears at stated age Derm: warm, dry, intact Head: atraumatic, normocephalic, symmetric Eyes: EOMI, anicteric sclera Mouth: no lip lesion, mucus membranes moist Cardiovascular: S1 S2 reg, no murmur Lungs: Diminished lung sounds Abdominal: soft, non-tender to palpataion Extremities: No cyanosis, clubbing, or pedal edema. Neuro: Alert, Oriented, Gross neurological examination did not reveal any focal deficits. Psych: well appearing, appropriate affect Assessment/Plan: Patient is a 53 year old female with PMH of COPD who presented to the ED for shortness of breath. She has been admitted for hypoxemic and hypercapnic respiratory failure. #. Acute on chronic hypoxemic and hypercapnic respiratory failure Acute COPD exacerbation Continue supplemental oxygen, currently on 2 L of oxygen via nasal cannula Continue IV Solumedrol 60 mg every 6 hours Continue Nebulised albuterol 2.5 mg RT Q2H PRN and Duoneb 3 ml inhalation RT-QID May continue using BiPAP on and off during the day and overnight per pulmonology Continue home med Trelegy Ellipta 0.9 normal saline at 40 mL per hr #. Hyperglycemia Continue Low dose Insulin sliding scale #. Anemia Hb 9.4 Stool occult blood test negative Vit B12- 1037 and Folate 21.70 in 09/21 Protonix 40 mg IVP daily for GI prophylaxis Monitor CBC #. Heartburn Simethicone Chew 120mg PRN #.Mild Hyponatremia Na 136 Monitor BMP #. Hypotension,resolved BP 118/80 Hold home meds losartan and hydrochlorothiazide Continue 0.9 normal saline 40 mL/h #. Anxiety Continue with home med Xanax 0.5 mg p.o. every 8 hours as needed and mirtazapine 40 mg p.o. at bedtime #. HIV/AIDS Absolute CD4 count 142 on 02/28/24 Continue home med Biktarvy PO QD #. Tobacco dependence Continue nicotine 14 mg/24-hour patch #. Pain management [place] p.o. every 6 hours as needed F:0.9 normal saline at 40 ml/hr E:Replete as required N:Regular diet A:Ambulatory DVT prophylaxis: Heparin 5000 units SQ every 12 hours GI prophylaxis: Protonix 40 mg IV daily Objective - Vital Signs Vital signs: Vital Signs Temp 97.9 F 03/06/24 04:27 Pulse 86 03/06/24 04:27 Resp 20 03/06/24 04:27 BP 147/80 03/06/24 04:27 Pulse Ox 90 L 03/06/24 04:27 FiO2 40 03/06/24 00:43 Intake & Output 03/05/24 03/05/24 03/06/24 06:59 18:59 06:59 Intake Total 1140 280 Balance 1140 280 Weight 54.5 kg 58.5 kg Intake: Intake, IV Titration 280 Amount Sodium Chloride 0.9% 1, 280 000 ml @ 40 mls/hr IV . Q24H [facility] Rx#:[id number] Oral 1140 Other: Voiding Method External Catheter External Catheter Bedside Commode # Voids 1 1 # Bowel Movements 1 1 - Labs CBC & Chem 7: 03/06/24 08:27 03/06/24 08:27 Labs: Abnormal Lab Results - Last 24 Hours (Table) 03/05/24 03/05/24 03/05/24 Range/Units 06:16 11:15 16:36 Sodium 134 L (137-145) mmol/L Chloride 95 L (98-107) mmol/L Carbon Dioxide 36 H (22-30) mmol/L Creatinine 0.37 L (0.52-1.04) mg/dL Glucose 212 H (74-99) mg/dL POC Glucose (mg/dL) 218 H 182 H (70-110) mg/dL Calcium 8.3 L (8.4-10.2) mg/dL 03/05/24 03/06/24 Range/Units 20:06 06:14 Sodium (137-145) mmol/L Chloride (98-107) mmol/L Carbon Dioxide (22-30) mmol/L Creatinine (0.52-1.04) mg/dL Glucose (74-99) mg/dL POC Glucose (mg/dL) 196 H 155 H (70-110) mg/dL Calcium (8.4-10.2) mg/dL
[2024-03-06 16:35] LABS: Glucose,Whole Blood 174 mg/dL (70-110)
[2024-03-06 19:56] LABS: Glucose,Whole Blood 200 mg/dL (70-110)
[2024-03-06] MEDS: ALPRAZolam 1 MG TAB PO PRN (20:18)
[2024-03-07 06:16] LABS: Glucose,Whole Blood 171 mg/dL (70-110)
[2024-03-07 07:33] LABS: HCT 28.3 % (34.0-46.0); HGB 8.9 gm/dL (11.4-16.0); Hypochromasia Marked; MCH 31.6 pg (25.0-35.0); MCHC 31.4 g/dL (31.0-37.0); MCV 100.5 fL (80.0-100.0); Macrocytosis Slight; Mean Platelet Volume 6.9; Platelet Count 338 k/uL (150-450); RBC 2.81 m/uL (3.80-5.40); RDW 14.7 % (11.5-15.5)
[2024-03-07 07:48] LABS: African American GFR (CKD) >90 (>60 ml/min/1.73 sqM); Anion Gap 1 mmol/L; Blood Urea Nitrogen 33 mg/dL (7-17); Calcium 8.3 mg/dL (8.4-10.2); Carbon Dioxide 39 mmol/L (22-30); Chloride 95 mmol/L (98-107); Glucose 126 mg/dL (74-99); Non-African American GFR(CKD) >90 (>60 ml/min/1.73 sqM); Potassium 4.5 mmol/L (3.5-5.1); Sodium 135 mmol/L (137-145)
[2024-03-07 11:45] LABS: ABG Base Excess 12.4 mmol/L; ABG Oxygen Saturation 94.7 % (94-97); ABG PCO2 69 mmHg (35-45); ABG PH 7.37 (7.35-7.45); ABG PO2 74 mmHg (83-108); ABG TCO2 42 mmol/L (19-24); Allen Test Performed? Yes
[2024-03-07 11:48] LABS: ABG HCO3 40 mmol/L (21-25)
[2024-03-07 11:53] LABS: Glucose,Whole Blood 254 mg/dL (70-110)
--- NOTE | 2024-03-07 14:41 | P.PN ---
Subjective Progress Note Date: 03/07/24 This is a 53-year-old female patient with known history of advanced COPD and previous history of HIV. The patient has been oxygen dependent and she utilizes Trelegy Ellipta on an outpatient basis as maintenance send maintained on prednisone 10 mg p.o. daily. She is on 2.5 L of oxygen on outpatient basis. Her most recent CD4 count is above 300 with an undetectable viral count. The patient came into the emergency department because of worsening shortness of breath. She also had some dry heaves and nausea. No abdominal pain. No reported fever chills or night sweats. No bright red blood per rectum. No evidence of any GI bleeding. At this point in time, the patient is calm and comfortable and she is on oxygen at 2 L/min nasal cannula. Her white cell count is 7.9 with a hemoglobin 9.1 and a platelet count of 347. Blood gases from yesterday Emergency Department showed a pH of 7.3 with a pCO2 of 93 and pO2 133 and this was done an FiO2 of 50%. I believe this was done while the patient being on a BiPAP. BUN is 12 with a creatinine of 0.27 and a sodium levels at 136. Potassium level is at 5.1. She is a chronic smoker. In the emergency, the patient was briefly placed on the BiPAP and currently she is off BiPAP, no signs of any CO2 narcosis. This patient has had multiple hospitalization and recurrent prescription exacerbation. She is a chronic smoker. Her last discharge from the hospital was on 02/22/2024 03/05/2024, the patient is awake and alert. Continues to receive treatment for an acuity of exacerbation the patient remains on a combination of DuoNeb nebulized treatments [id number], IV Solu-Medrol 60 mg every 6 hours. Oxygenation is unchanged. No signs of any CO2 narcosis. Remains on 2 L with a pulse ox of 99%. White cell count is at 5.4, hemoglobin is at 8.8 and a platelet count of 304. BUN is 15 with a creatinine of 0.37 and sodium is at 134. 03/06/2024, the patient is being seen for a follow-up. Doing well. No new complaints. No signs of any CO2 narcosis. Remains on DuoNeb the rest of his [id number]. Remains on IV Solu-Medrol. Feeling anxious. Xanax dose will be increased. WBC count is at 7.8, hemoglobin 9.4, BUN is 23 with a creatinine of 0.4. Serum bicarb is at 40. No chest pain. No angina. No palpitation. No altered mentation. 03/07/2024, the patient is being seen for a follow-up. She is doing well and she is very much compliant to her BiPAP is being provide this patient overnight. A follow-up blood gas was done while the patient on 2 L of oxygen by nasal cannula with an FiO2 of 28% and the patient's pCO2 was 69 with a pH of 7.37. pO2 was 74. Noted, the patient is benefiting from noninvasive ventilator due to her severe advanced COPD with chronic hypoxic and hypercapnic respiratory failure. She has severe obstructive airway limitation with an FEV1 of less than 50% of predicted. She has had multiple hospitalization for recurrence of the exacerbation and she would obviously benefit from a trilogy ventilator there can be arranged for this patient on outpatient basis. Objective - Vital Signs Vital signs: Vital Signs Temp 98.6 F 03/07/24 06:52 Pulse 80 03/07/24 08:50 Resp 19 03/07/24 06:52 BP 128/85 03/07/24 06:52 Pulse Ox 96 03/07/24 06:52 FiO2 40 03/07/24 04:37 Intake & Output 03/06/24 03/07/24 03/07/24 18:59 06:59 18:59 Intake Total 240 Output Total 400 Balance 240 -400 Intake: Oral 240 Output: Urine 400 Other: Voiding Method Bedside Commode Bedside Commode Bedside Commode # Voids 1 - Exam GENERAL EXAM: Arousable, 53-year-old female, on 2 L of oxygen by nasal cannula. The patient is off the BiPAP. Able to communicate without any major difficulties. No signs of any CO2 narcosis. HEAD: Normocephalic. EYES: Normal reaction of pupils, equal size. NOSE: Clear with pink turbinates. THROAT: No erythema or exudates. NECK: No masses, no JVD. CHEST: No chest wall deformity. LUNGS: Equal air entry with bilateral end expiratory wheeze. CVS: S1 and S2 normal with no audible murmur, regular rhythm. ABDOMEN: No hepatosplenomegaly, normal bowel sounds, no guarding or rigidity. SPINE: No scoliosis or deformity SKIN: No rashes CENTRAL NERVOUS SYSTEM: No focal deficits, tone is normal in all 4 extremities. EXTREMITIES: There is no peripheral edema. No clubbing, no cyanosis. Peripheral pulses are intact. - Labs CBC & Chem 7: 03/07/24 06:57 03/07/24 06:57 Labs: Abnormal Lab Results - Last 24 Hours (Table) 03/06/24 03/06/24 03/06/24 Range/Units 11:14 16:34 19:54 RBC (3.80-5.40) m/uL Hgb (11.4-16.0) gm/dL Hct (34.0-46.0) % MCV (80.0-100.0) fL Sodium (137-145) mmol/L Chloride (98-107) mmol/L Carbon Dioxide (22-30) mmol/L BUN (7-17) mg/dL Creatinine (0.52-1.04) mg/dL Glucose (74-99) mg/dL POC Glucose (mg/dL) 221 H 174 H 200 H (70-110) mg/dL Calcium (8.4-10.2) mg/dL 03/07/24 03/07/24 03/07/24 Range/Units 06:14 06:57 06:57 RBC 2.81 L (3.80-5.40) m/uL Hgb 8.9 L (11.4-16.0) gm/dL Hct 28.3 L (34.0-46.0) % MCV 100.5 H (80.0-100.0) fL Sodium 135 L (137-145) mmol/L Chloride 95 L (98-107) mmol/L Carbon Dioxide 39 H (22-30) mmol/L BUN 33 H (7-17) mg/dL Creatinine 0.33 L (0.52-1.04) mg/dL Glucose 126 H (74-99) mg/dL POC Glucose (mg/dL) 171 H (70-110) mg/dL Calcium 8.3 L (8.4-10.2) mg/dL Assessment and Plan Plan: Acute on chronic shortness of breath, secondary to COPD exacerbation and the pat ient's blood gas indicated a component of an acute on top of chronic hypercapnic respiratory failure, initially treated with a BiPAP and currently she is on 2 L of oxygen by nasal cannula., Comfortable, no signs of any CO2 narcosis. Chest x-ray shows no acute abnormalities. Acute hypoxemic and hypercapnic respiratory failure, secondary to COPD exacerbation. Ongoing tobacco use with nicotine addiction. Multiple hospital admissions, more than 10 admissions this year alone, since July 2023, discharged from the hospital on 02/22/2024 Previous history of ventilator dependent respiratory failure with previous tracheostomy and PEG tube placement, with subsequent Decannulization, and PEG tu be removal. Severe/stage IV COPD, with an FEV1 that is 22% of predicted. Chronic hypoxemic respiratory failure, on home O2, 21/11. Acquired immunodeficiency syndrome. Adequate CD4 count and undetectable viral count History of upper lobe pulmonary nodule, being monitored. Chronic metabolic alkalosis secondary to hypercapnic respiratory failure Plan: This patient has advanced and severe COPD with an FEV1 of less than 50% of predicted and she has had frequent hospitalization. In addition, she has chronic hypercapnic respiratory failure and her pCO2 currently is at 69 with a pH of 7.37 and the patient has chronic compensated hypercapnic respiratory failure. She has had multiple hospitalizations for COPD exacerbation. As such, the noninvasive positive pressure ventilation should benefit this patient with her ongoing severe and life-threatening disease and this will obviously reduce her risk of readmission to the hospital. She will need this type of intervention on a chronic basis and the patient is willing to undertake the treatment as the patient utilized noninvasive ventilator here in the hospital with good results. Based on all this, recommending a trilogy ventilator for this patient. Her COPD treatment has been maximized and the patient is currently on Trelegy Ellipta maintenance prednisone. Will work with the [employer] to arrange that. Using the BiPAP overnight 2 L oxygen by nasal cannula Continue IV Solu-Medrol 60 mg every 6 hours and give the patient a prednisone burst taper at time of discharge IV fluid to KVO Continue Xanax dose to 1 mg every 8 hours on a as needed basis The patient will be placed back on DuoNeb nebulized treatments [id number]. Allow the patient to use Trelegy Ellipta, from her home supply. Will continue to follow
--- NOTE | 2024-03-07 16:01 | P.PN ---
Subjective Progress Note Date: 03/07/24 Principal diagnosis: Hospital course: Patient is a 53 year old female with PMH of COPD on 2L home oxygen who presented to the ED with dyspnea and chest tightness. Patient had multiple admission over the last year with the last discharge from the hospital being on 01/23/2024 and most of the time patient has left AGAINST MEDICAL ADVICE. She mentions the s hortness of breath started yesterday which she attributes to inhaling some chemicals that were at her house for renovation purposes. Throughout the day she took 4 Duoneb breathing treatments but that did not relieve her symptoms. She also reports some dry heaves throughout the day along with heartburn. Additionally she reports having 1 episode of vomiting while in the hospital. She also mentions of numbness in the tips of her fingers since 3 weeks. Denies fever, chills, abdominal pain,chest pain, palpitations, cough, hematuria, hematochezia, melena. Because of this worsening shortness of breath, EMS was called and patient was brought to the ER. ED documentation reviewed and case discussed with ED provider. She was put on BIPAP on 50% and was treated with Solumedrol. Patient mentions being uncomfortable on BIPAP, and requires Xanax to use BIPAP. Vitals: T 97.5F, P 91 bpm, RR 16, BP 123/81, O2 sat 90% on RA EKG: Independently interpreted as sinus rhythm, rate 91 bpm, QTc 377ms CXR: No acute pulmonary process CBC: Hb 11.0 -> 9.1, MCV 100.7->103.1 Coagulation panel: PT 9.7, INR 0.9, PTT 23.7 CMP: Na 133->136, K 5.2-> 5.1, bicarb 44-> 37 ABG: pH 7.30, pCO2 93, pO2 133 03/05/25: Patient seen and examined. She complains of runny nose, itchy eyes and heartburn. No acute events overnight. Used BIPAP last night at 13/10/39. Currently on 2L O2 via Nasal cannula. 03/06/24: Patient seen and examined at bedside. No acute events overnight. She mentions her breathing is better today. Currently on 2L O2 via nasal cannula. Complains of nausea. Denies abdominal pain, vomiting, chest pain, palpitations. Used BIPAP last night at 16/6/40% 03/07/24: Patient seen and examined today. Acute events overnight. She is feeling better today. She uses a BiPAP overnight. Currently on 2 L of oxygen via nasal cannula. Labs today show hemoglobin 8.9, sodium 135. ABG done today shows pH 7.37, pCO2 69, pO2 74 at FiO2 28%. Review of systems: Pertinent positives and negatives as discussed in HPI, a complete review of systems was performed and all other systems are negative. Vitals: Signs Reviewed Physical examination: General: nontoxic, no distress, appears at stated age Derm: warm, dry, intact Head: atraumatic, normocephalic, symmetric Eyes: EOMI, anicteric sclera Mouth: no lip lesion, mucus membranes moist Cardiovascular: S1 S2 reg, no murmur Lungs: Diminished lung sounds Abdominal: soft, non-tender to palpataion Extremities: No cyanosis, clubbing, or pedal edema. Neuro: Alert, Oriented, Gross neurological examination did not reveal any focal deficits. Psych: well appearing, appropriate affect Assessment/Plan: Patient is a 53 year old female with PMH of COPD who presented to the ED for shortness of breath. She has been admitted for hypoxemic and hypercapnic respiratory failure. #. Acute on chronic hypoxemic and hypercapnic respiratory failure Acute COPD exacerbation Continue supplemental oxygen, currently on 2 L of oxygen via nasal cannula Continue IV Solumedrol 60 mg every 6 hours Continue Nebulised albuterol 2.5 mg RT Q2H PRN and Duoneb 3 ml inhalation RT-QID May continue using BiPAP on and off during the day and overnight per pulmonology Continue home med [facility] recommending a trilogy ventilator for this patient. #. Hyperglycemia Continue Low dose Insulin sliding scale #. Anemia Hb 8.9 Stool occult blood test negative Vit B12- 1037 and Folate 21.70 in 09/21 Protonix 40 mg IVP daily for GI prophylaxis Monitor CBC #. Heartburn Simethicone Chew 120mg PRN #.Mild Hyponatremia Na 135 Monitor BMP #. Hypotension,resolved BP 145/86 Continue Atenolol 50 mg PO Daily Continue 0.9 normal saline 40 mL/h #. Anxiety Continue with home med Xanax 0.5 mg p.o. every 8 hours as needed and mirtazapine 40 mg p.o. at bedtime #. HIV/AIDS Absolute CD4 count 142 on 02/28/24 Continue home med Biktarvy PO QD #. Tobacco dependence Continue nicotine 14 mg/24-hour patch #. Pain management [place] p.o. every 6 hours as needed F:0.9 normal saline at 40 ml/hr E:Replete as required N:Regular diet A:Ambulatory DVT prophylaxis: Heparin 5000 units SQ every 12 hours GI prophylaxis: Protonix 40 mg IV daily Objective - Vital Signs Vital signs: Vital Signs Temp 98.3 F 03/07/24 11:26 Pulse 80 03/07/24 15:40 Resp 20 03/07/24 11:26 BP 145/86 03/07/24 11:26 Pulse Ox 97 03/07/24 11:26 FiO2 40 03/07/24 04:37 Intake & Output 03/06/24 03/07/24 03/07/24 18:59 06:59 18:59 Intake Total 240 240 Output Total 400 Balance 240 -400 240 Intake: Oral 240 240 Output: Urine 400 Other: Voiding Method Bedside Commode Bedside Commode Bedside Commode # Voids 1 0 # Bowel Movements 0 - Labs CBC & Chem 7: 03/07/24 06:57 03/07/24 06:57 Labs: Abnormal Lab Results - Last 24 Hours (Table) 03/06/24 03/06/24 03/07/24 Range/Units 16:34 19:54 06:14 RBC (3.80-5.40) m/uL Hgb (11.4-16.0) gm/dL Hct (34.0-46.0) % MCV (80.0-100.0) fL ABG pCO2 (35-45) mmHg ABG pO2 (83-108) mmHg ABG HCO3 (21-25) mmol/L ABG Total CO2 (19-24) mmol/L Hemoglobin (11.4-16.0) gm/dL Sodium (137-145) mmol/L Chloride (98-107) mmol/L Carbon Dioxide (22-30) mmol/L BUN (7-17) mg/dL Creatinine (0.52-1.04) mg/dL Glucose (74-99) mg/dL POC Glucose (mg/dL) 174 H 200 H 171 H (70-110) mg/dL Calcium (8.4-10.2) mg/dL 03/07/24 03/07/24 03/07/24 Range/Units 06:57 06:57 11:41 RBC 2.81 L (3.80-5.40) m/uL Hgb 8.9 L (11.4-16.0) gm/dL Hct 28.3 L (34.0-46.0) % MCV 100.5 H (80.0-100.0) fL ABG pCO2 69 H (35-45) mmHg ABG pO2 74 L (83-108) mmHg ABG HCO3 40 H* (21-25) mmol/L ABG Total CO2 42 H (19-24) mmol/L Hemoglobin 9.4 L (11.4-16.0) gm/dL Sodium 135 L (137-145) mmol/L Chloride 95 L (98-107) mmol/L Carbon Dioxide 39 H (22-30) mmol/L BUN 33 H (7-17) mg/dL Creatinine 0.33 L (0.52-1.04) mg/dL Glucose 126 H (74-99) mg/dL POC Glucose (mg/dL) (70-110) mg/dL Calcium 8.3 L (8.4-10.2) mg/dL 03/07/24 Range/Units 11:50 RBC (3.80-5.40) m/uL Hgb (11.4-16.0) gm/dL Hct (34.0-46.0) % MCV (80.0-100.0) fL ABG pCO2 (35-45) mmHg ABG pO2 (83-108) mmHg ABG HCO3 (21-25) mmol/L ABG Total CO2 (19-24) mmol/L Hemoglobin (11.4-16.0) gm/dL Sodium (137-145) mmol/L Chloride (98-107) mmol/L Carbon Dioxide (22-30) mmol/L BUN (7-17) mg/dL Creatinine (0.52-1.04) mg/dL Glucose (74-99) mg/dL POC Glucose (mg/dL) 254 H (70-110) mg/dL Calcium (8.4-10.2) mg/dL
[2024-03-07 17:14] LABS: Glucose,Whole Blood 196 mg/dL (70-110)
[2024-03-07 19:49] LABS: Glucose,Whole Blood 187 mg/dL (70-110)
[2024-03-08 06:10] LABS: Glucose,Whole Blood 150 mg/dL (70-110)
[2024-03-08 07:29] VITALS: RESP 18
[2024-03-08 09:46] LABS: HCT 30.5 % (34.0-46.0); HGB 9.7 gm/dL (11.4-16.0); Hypochromasia Moderate; MCHC 31.8 g/dL (31.0-37.0); MCV 100.7 fL (80.0-100.0); Macrocytosis Slight; Mean Platelet Volume 6.8; Platelet Count 374 k/uL (150-450); RBC 3.03 m/uL (3.80-5.40); RDW 14.7 % (11.5-15.5); WBC 9.2 k/uL (3.8-10.6)
[2024-03-08 11:12] VITALS: BP 133/77; TEMP 98.2
[2024-03-08 11:15] LABS: Glucose,Whole Blood 254 mg/dL (70-110)
--- NOTE | 2024-03-08 12:47 | P.PN ---
Subjective Progress Note Date: 03/08/24 This is a 53-year-old female patient with known history of advanced COPD and previous history of HIV. The patient has been oxygen dependent and she utilizes Trelegy Ellipta on an outpatient basis as maintenance send maintained on prednisone 10 mg p.o. daily. She is on 2.5 L of oxygen on outpatient basis. Her most recent CD4 count is above 300 with an undetectable viral count. The patient came into the emergency department because of worsening shortness of breath. She also had some dry heaves and nausea. No abdominal pain. No reported fever chills or night sweats. No bright red blood per rectum. No evidence of any GI bleeding. At this point in time, the patient is calm and comfortable and she is on oxygen at 2 L/min nasal cannula. Her white cell count is 7.9 with a hemoglobin 9.1 and a platelet count of 347. Blood gases from yesterday Emergency Department showed a pH of 7.3 with a pCO2 of 93 and pO2 133 and this was done an FiO2 of 50%. I believe this was done while the patient being on a BiPAP. BUN is 12 with a creatinine of 0.27 and a sodium levels at 136. Potassium level is at 5.1. She is a chronic smoker. In the emergency, the patient was briefly placed on the BiPAP and currently she is off BiPAP, no signs of any CO2 narcosis. This patient has had multiple hospitalization and recurrent prescription exacerbation. She is a chronic smoker. Her last discharge from the hospital was on 02/22/2024 03/05/2024, the patient is awake and alert. Continues to receive treatment for an acuity of exacerbation the patient remains on a combination of DuoNeb nebulized treatments [id number], IV Solu-Medrol 60 mg every 6 hours. Oxygenation is unchanged. No signs of any CO2 narcosis. Remains on 2 L with a pulse ox of 99%. White cell count is at 5.4, hemoglobin is at 8.8 and a platelet count of 304. BUN is 15 with a creatinine of 0.37 and sodium is at 134. 03/06/2024, the patient is being seen for a follow-up. Doing well. No new complaints. No signs of any CO2 narcosis. Remains on DuoNeb the rest of his [id number]. Remains on IV Solu-Medrol. Feeling anxious. Xanax dose will be increased. WBC count is at 7.8, hemoglobin 9.4, BUN is 23 with a creatinine of 0.4. Serum bicarb is at 40. No chest pain. No angina. No palpitation. No altered mentation. 03/07/2024, the patient is being seen for a follow-up. She is doing well and she is very much compliant to her BiPAP is being provide this patient overnight. A follow-up blood gas was done while the patient on 2 L of oxygen by nasal cannula with an FiO2 of 28% and the patient's pCO2 was 69 with a pH of 7.37. pO2 was 74. Noted, the patient is benefiting from noninvasive ventilator due to her severe advanced COPD with chronic hypoxic and hypercapnic respiratory failure. She has severe obstructive airway limitation with an FEV1 of less than 50% of predicted. She has had multiple hospitalization for recurrence of the exacerbation and she would obviously benefit from a trilogy ventilator there can be arranged for this patient on outpatient basis. On 03/08/2024, I am still putting out an effort to get this patient a trilogy ventilator which I believe is going to be of significant help in keeping her out of the hospital. Noted during her hospital stay, the patient utilized a BiPAP device faithfully and she was compliant and she was compliance. Specifically, last night, the patient was on a IVAPSAE mode and that turned out to be successful treatment. Based on all this, I am still recommending a home ventilator for this patient utilizing the AVAPS mode over the routinely used BiPAP ST mode. In fact, her overall respiratory is improving and the patient is currently on IV Solu-Medrol which will be tapered off to prednisone burst taper. She remains on oxygen 2 L/min nasal cannula. No signs of any CO2 narcosis. Blood gas from yesterday was noted and the patient continues to have significant hypercapnia the pCO2 was 69 and a pH was at 7.37 consistent with chronically compensated hypercapnic respiratory failure. Objective - Vital Signs Vital signs: Vital Signs Temp 98.2 F 03/08/24 11:10 Pulse 86 03/08/24 11:10 Resp 18 03/08/24 11:10 BP 133/77 03/08/24 11:10 Pulse Ox 99 03/08/24 11:10 FiO2 40 03/08/24 03:47 Intake & Output 03/07/24 03/08/24 03/08/24 18:59 06:59 18:59 Intake Total 240 120 0 Output Total 1600 Balance 240 -1480 0 Weight 58.5 kg Intake: Oral 240 120 0 Output: Urine 1600 Other: Voiding Method Bedside Commode Bedside Commode Bedside Commode # Voids 0 # Bowel Movements 0 - Exam GENERAL EXAM: Arousable, 53-year-old female, on 2 L of oxygen by nasal cannula. The patient is off the BiPAP. Able to communicate without any major difficulties. No signs of any CO2 narcosis. HEAD: Normocephalic. EYES: Normal reaction of pupils, equal size. NOSE: Clear with pink turbinates. THROAT: No erythema or exudates. NECK: No masses, no JVD. CHEST: No chest wall deformity. LUNGS: Equal air entry with bilateral end expiratory wheeze. CVS: S1 and S2 normal with no audible murmur, regular rhythm. ABDOMEN: No hepatosplenomegaly, normal bowel sounds, no guarding or rigidity. SPINE: No scoliosis or deformity SKIN: No rashes CENTRAL NERVOUS SYSTEM: No focal deficits, tone is normal in all 4 extremities. EXTREMITIES: There is no peripheral edema. No clubbing, no cyanosis. Peripheral pulses are intact. - Labs CBC & Chem 7: 03/08/24 09:04 03/07/24 06:57 Labs: Abnormal Lab Results - Last 24 Hours (Table) 03/07/24 03/07/24 03/08/24 Range/Units 17:12 19:47 06:09 RBC (3.80-5.40) m/uL Hgb (11.4-16.0) gm/dL Hct (34.0-46.0) % MCV (80.0-100.0) fL POC Glucose (mg/dL) 196 H 187 H 150 H (70-110) mg/dL 03/08/24 03/08/24 Range/Units 09:04 11:13 RBC 3.03 L (3.80-5.40) m/uL Hgb 9.7 L (11.4-16.0) gm/dL Hct 30.5 L (34.0-46.0) % MCV 100.7 H (80.0-100.0) fL POC Glucose (mg/dL) 254 H (70-110) mg/dL Assessment and Plan Plan: Acute on chronic shortness of breath, secondary to COPD exacerbation and the patient's blood gas indicated a component of an acute on top of chronic hypercapnic respiratory failure, initially treated with a BiPAP and currently she is on 2 L of oxygen by nasal cannula., Comfortable, no signs of any CO2 narcosis. Chest x-ray shows no acute abnormalities. Acute hypoxemic and hypercapnic respiratory failure, secondary to COPD exacerbation. Ongoing tobacco use with nicotine addiction. Multiple hospital admissions, more than 10 admissions this year alone, since July 2023, discharged from the hospital on 02/22/2024 Previous history of ventilator dependent respiratory failure with previous tracheostomy and PEG tube placement, with subsequent Decannulization, and PEG tube removal. Severe/stage IV COPD, with an FEV1 that is 22% of predicted. Chronic hypoxemic respiratory failure, on home O2, 21/11. Acquired immunodeficiency syndrome. Adequate CD4 count and undetectable viral count History of upper lobe pulmonary nodule, being monitored. Chronic metabolic alkalosis secondary to hypercapnic respiratory failure Plan: This patient has advanced and severe COPD with an FEV1 of less than 50% of predicted and she has had frequent hospitalization. In addition, she has chronic hypercapnic respiratory failure and her pCO2 currently is at 69 with a pH of 7.37 and the patient has chronic compensated hypercapnic respiratory failure. She has had multiple hospitalizations for COPD exacerbation. As such, the noninvasive positive pressure ventilation should benefit this patient with her ongoing severe and life-threatening disease and this will obviously reduce her risk of readmission to the hospital. She will need this type of intervention on a chronic basis and the patient is willing to undertake the treatment as the patient utilized noninvasive ventilator here in the hospital with good results. Based on all this, recommending a trilogy ventilator for this patient. Her COPD treatment has been maximized and the patient is currently on Trelegy Ellipta maintenance prednisone. Will work with the [employer] to arrange that. Using the noninvasive positive pressure ventilator in the IVAPSAE mode, had the same form of device and mode of ventilation will be offered to this patient on outpatient basis based on the above-mentioned discussion. Hoping to finalize the approval today for this patient to get discharged home. This will significantly impact her outcome and lower her risk of readmission in the [facility]. 2 L oxygen by nasal cannula Continue steroids and start the patient on prednisone burst taper to be maintained on 10 mg of prednisone on outpatient basis IV fluid to KVO Continue Xanax dose to 1 mg every 8 hours on a as needed basis The patient will be placed back on DuoNeb nebulized treatments [id number]. Allow the patient to use Trelegy Ellipta, from her home supply. Will continue to follow Long-term prognosis poor based on above-mentioned comorbidities.
--- NOTE | 2024-03-08 14:20 | P.DS ---
Providers Date of admission: 03/03/24 15:19 Expected date of discharge: 03/08/24 Attending physician: Makenna Argueta Consults: 03/03/24 15:19 Consult Physician Urgent Consulting Provider: Davin Pro Consult Reason/Comments: COPD on bipap Do you want consulting provider notified?: Yes Primary care physician: Stated None Hospital Course: Discharge diagnosis: Acute on chronic hypoxemic and hypercapnic respiratory failure Acute COPD exacerbation Hyperglycemia Anemia Heartburn Mild Hyponatremia Hypotension,resolved Anxiety HIV/AIDS Tobacco dependence Pain management Hospital Course: Patient is a 53 year old female with PMH of COPD on 2L home oxygen who presented to the ED with dyspnea and chest tightness. Patient had multiple admission over the last year with the last discharge from the hospital being on 01/23/2024 and most of the time patient has left AGAINST MEDICAL ADVICE. She mentions the shortness of breath started yesterday which she attributes to inhaling some chemicals that were at her house for renovation purposes. Throughout the day she took 4 Duoneb breathing treatments but that did not relieve her symptoms. She also reports some dry heaves throughout the day along with heartburn. Additionally she reports having 1 episode of vomiting while in the hospital. She also mentions of numbness in the tips of her fingers since 3 weeks. Denies fever, chills, abdominal pain,chest pain, palpitations, cough, hematuria, hematochezia, melena. Because of this worsening shortness of breath, EMS was called and patient was brought to the ER. Vitals on admission T 97.5F, P 91 bpm, RR 16, BP 123/81, O2 sat 90% on RA. EKG Independently interpreted as sinus rhythm, rate 91 bpm, QTc 377ms CXR showed No acute pulmonary process. Labs showed Hb 11.0 -> 9.1, MCV 100.7->103.1, PT 9.7, INR 0.9, PTT 23.7, Na 133->136, K 5.2-> 5.1, bicarb 44-> 37. ABG showed pH 7.30, pCO2 93, pO2 133. At that point patient was put on BIPAP on 14/6/50% and was treated with IV Solumedrol 60 mg every 6 hours. Patient mentions being uncomfortable on BIPAP, and requires Xanax to use BIPAP. She was also put on supplemental oxygen of 3L via nasal cannula. She had round the clock breathing treatments with nebulized DuoNeb. Patient was also advised to use Trelegy Ellipta from her home supply. She was also receiving IV fluid 0.9 normal saline at 40 mL/h.-Home medications Biktarvy, mirtazapine, pantoprazole and nicotine patch for also started while in the hospital. She was prescribed simethicone for heartburn. The patient has a chronic compensated hypercapnic respiratory failure with multiple hospitalizations for COPD exacerbation. Her COPD treatment has been maximized and the patient is currently on Trelegy Ellipta maintenance prednisone. NIPPV would benefit this patient going severe and life-threatening disease reduces risk of readmission to the hospital. Based on this Trilogy ventilator was prescribed for the patient and will be delivered for her today. Patient will be discharged today and is and is advised to be compliant with her medications and the trilogy ventilator. Patient is advised to follow-up with her PCP in 1-2 days. Patient seen at bedside today and is feeling good and excited about discharge. Vital signs are reviewed and stable General: nontoxic, no distress, appears at stated age Derm: warm, dry, intact Head: atraumatic, normocephalic, symmetric Eyes: EOMI, anicteric sclera Mouth: no lip lesion, mucus membranes moist Cardiovascular: S1 S2 reg, no murmur Lungs: Diminished lung sounds Abdominal: soft, non-tender to palpataion Extremities: No cyanosis, clubbing, or pedal edema. Neuro: Alert, Oriented, Gross neurological examination did not reveal any focal deficits. Psych: well appearing, appropriate affect A total of 30 minutes of time were spent preparing this complex discharge summary. Patient was discharged on 03/08/24 at 1415. Patient Condition at Discharge: Stable Plan - Discharge Summary Discharge Rx Participant: No New Discharge Prescriptions: Continue Albuterol Sulfate [Albuterol Sulfate Hfa] 2 puff INHALATION RT-Q4H PRN PRN Reason: Shortness Of Breath Ipratropium-Albuterol Nebulize [Duoneb 0.5 mg-3 mg/3 ml Soln] 3 ml INHALATION RT-Q4H PRN PRN Reason: Shortness Of Breath Famotidine [Pepcid] 20 mg PO BID Ibuprofen [Motrin Ib] 200 - 400 mg PO Q6H PRN PRN Reason: Pain Or Fever > 100.5 Fluticasone Propionate [Flonase Allergy Relief] 1 spray EA NOSTRIL DAILY PRN PRN Reason: Congestion Fluticasone/Umeclidin/Vilanter [Trelegy Ellipta 200-62.5-25] 1 puff INHALATION RT-DAILY Nicotine 14Mg/24Hr Patch [Habitrol] 1 patch TRANSDERM DAILY Ipratropium-Albuterol Nebulize [Duoneb 0.5 mg-3 mg/3 ml Soln] 3 ml INHALATION RT-QID each atenoloL [Tenormin] 50 mg PO DAILY #30 tab ALPRAZolam [Xanax] 0.5 - 1 mg PO Q8H PRN PRN Reason: Anxiety hydroCHLOROthiazide 12.5 mg PO DIRECTED Bictegrav/Emtricit/Tenofov Ala [Biktarvy 50-200-25 mg Tablet] 1 tab PO DAILY Ondansetron [Zofran] 4 mg PO BID PRN PRN Reason: Nausea Simethicone [Gas-X] 125 - 250 mg PO ACHS PRN PRN Reason: gas Mirtazapine [Remeron] 15 mg PO HS Losartan [Cozaar] 50 mg PO BID Udneeojq-Koqladyhif-Cbem Oint [Triple Antibiotic Ointment] 1 applic TOPICAL BID PRN each PRN Reason: Skin Irritation Acetaminophen Tab [Tylenol] 650 mg PO Q4HR PRN tab PRN Reason: Mild Pain Or Fever > 100.5 predniSONE See Taper PO DIRECTED #30 tab HYDROcodone/APAP 5-325MG [[place] 5-325] 1 tab PO Q6HR PRN PRN Reason: Pain Discharge Medication List Albuterol Sulfate [Albuterol Sulfate Hfa] 2 puff INHALATION RT-Q4H PRN 03/14/22 [History] Bictegrav/Emtricit/Tenofov Ala [Biktarvy 50-200-25 mg Tablet] 1 tab PO DAILY 08/10/23 [History] Ipratropium-Albuterol Nebulize [Duoneb 0.5 mg-3 mg/3 ml Soln] 3 ml INHALATION RT-Q4H PRN 08/10/23 [History] Famotidine [Pepcid] 20 mg PO BID 09/30/23 [History] Ondansetron [Zofran] 4 mg PO BID PRN 11/05/23 [History] Fluticasone Propionate [Flonase Allergy Relief] 1 spray EA NOSTRIL DAILY PRN 11/27/23 [History] Ibuprofen [Motrin Ib] 200 - 400 mg PO Q6H PRN 11/27/23 [History] Simethicone [Gas-X] 125 - 250 mg PO ACHS PRN 11/27/23 [History] Fluticasone/Umeclidin/Vilanter [Trelegy Ellipta 200-62.5-25] 1 puff INHALATION RT-DAILY 01/04/24 [History] Mirtazapine [Remeron] 15 mg PO HS 01/04/24 [History] Ipratropium-Albuterol Nebulize [Duoneb 0.5 mg-3 mg/3 ml Soln] 3 ml INHALATION RT-QID each 01/21/24 [Rx] Losartan [Cozaar] 50 mg PO BID 01/21/24 [History] Nicotine 14Mg/24Hr Patch [Habitrol] 1 patch TRANSDERM DAILY 01/21/24 [History] Nzczldka-Nvnywzjbru-Irjq Oint [Triple Antibiotic Ointment] 1 applic TOPICAL BID PRN each 02/14/24 [Rx] atenoloL [Tenormin] 50 mg PO DAILY #30 tab 02/14/24 [Rx] Acetaminophen Tab [Tylenol] 650 mg PO Q4HR PRN tab 02/21/24 [Rx] predniSONE See Taper PO DIRECTED #30 tab 02/21/24 [Rx] ALPRAZolam [Xanax] 0.5 - 1 mg PO Q8H PRN 03/03/24 [History] HYDROcodone/APAP 5-325MG [[place] 5-325] 1 tab PO Q6HR PRN 03/03/24 [History] hydroCHLOROthiazide 12.5 mg PO DIRECTED 03/03/24 [History] Follow up Appointment(s)/Referral(s): [facility] [REFERRING] - 1-2 Days Patti Portillo MD [STAFF PHYSICIAN] - 1 Week Discharge/Stand Alone Forms: Area PCPs
[2024-03-08 15:14] VITALS: BMI 24.3
[2024-03-08 16:01] VITALS: PULSE 80
== END 2024-03-08 16:36 | disposition home or self-care (01) | DRG 189 ==
LOC: SUPCPDRO 13:36 → EC 13:36 → 3SCARD 15:19
PROVIDERS: ADMIT Internal Medicine; ATTEND Internal Medicine
PROC: 5A09357 Assistance with Respiratory Ventilation, Less than 24 Consecutive Hours, Continuous Positive Airway Pressure (ICD-10-PCS; principal; 2024-03-05)
DX: J96.21 Acute and chronic respiratory failure with hypoxia (principal); J44.1 Chronic obstructive pulmonary disease with (acute) exacerbation; E87.1 Hypo-osmolality and hyponatremia; B20 Human immunodeficiency virus [HIV] disease; D84.9 Immunodeficiency, unspecified; J96.22 Acute and chronic respiratory failure with hypercapnia; F17.210 Nicotine dependence, cigarettes, uncomplicated; I10 Essential (primary) hypertension; Z99.81 Dependence on supplemental oxygen; F41.9 Anxiety disorder, unspecified; D64.9 Anemia, unspecified; I95.9 Hypotension, unspecified; K21.9 Gastro-esophageal reflux disease without esophagitis; R73.9 Hyperglycemia, unspecified; Z79.52 Long term (current) use of systemic steroids; Z79.899 Other long term (current) drug therapy; Z86.73 Personal history of transient ischemic attack (TIA), and cerebral infarction without residual deficits; Z88.0 Allergy status to penicillin; Z71.6 Tobacco abuse counseling; Z91.011 Allergy to milk products
CPT/HCPCS: 36415; 36600; 71045; 80048; 80053; 82272; 82805; 83605; 83880; 84484; 85025; 85027; 85610; 85730; 93005; 94640; 94660; 94760; 96361; 96374; 99291

== ENCOUNTER 2024-03-10 18:41 | Inpatient (IN) | payer MEDICARE, OTHER ==
--- NOTE | 2024-03-10 19:29 | ED ---
General Adult HPI - General Chief complaint: Extremity Problem,Nontraumatic Stated complaint: Leg Swelling Time Seen by Provider: 03/10/24 18:51 Source: patient, EMS Mode of arrival: EMS Limitations: no limitations - History of Present Illness Initial comments: Patient is a 53-year-old female with a past medical history of asthma, HIV, COPD, presenting today for lower extremity swelling. States she was recently admitted to the hospital for COPD exacerbation and treated with daily steroids. Typically experiences lower extremity swelling with administration of steroids however never this bad. Discharged 2 days ago and states the swelling is contin ued to worsen. Today she went to elevate her legs and noticed the blanket over her legs was wet, started to notice lower extremities weeping clear fluid. States this is never happened before. Endorses diffuse lower extremity pain and difficulty ambulating secondary to pain and swelling in legs. Denies chest pain, endorses shortness of breath. Denies cough productive of sputum, hemoptysis, abdominal pain, nausea, vomiting, diarrhea, black or bloody stools, fevers. - Related Data Home Medications Medication Instructions Recorded Confirmed Albuterol Sulfate [Albuterol 2 puff INHALATION RT-Q4H PRN 03/14/22 03/03/24 Sulfate Hfa] Bictegrav/Emtricit/Tenofov Ala 1 tab PO DAILY 08/10/23 03/03/24 [Biktarvy 50-200-25 mg Tablet] Ipratropium-Albuterol Nebulize 3 ml INHALATION RT-Q4H PRN 08/10/23 03/03/24 [Duoneb 0.5 mg-3 mg/3 ml Soln] Famotidine [Pepcid] 20 mg PO BID 09/30/23 03/03/24 Ondansetron [Zofran] 4 mg PO BID PRN 11/05/23 03/03/24 Fluticasone Propionate [Flonase 1 spray EA NOSTRIL DAILY PRN 11/27/23 03/03/24 Allergy Relief] Ibuprofen [Motrin Ib] 200 - 400 mg PO Q6H PRN 11/27/23 03/03/24 Simethicone [Gas-X] 125 - 250 mg PO ACHS PRN 11/27/23 03/03/24 Fluticasone/Umeclidin/Vilanter 1 puff INHALATION RT-DAILY 01/04/24 03/03/24 [Trelegy Ellipta 200-62.5-25] Mirtazapine [Remeron] 15 mg PO HS 01/04/24 03/03/24 Losartan [Cozaar] 50 mg PO BID 01/21/24 03/03/24 Nicotine 14Mg/24Hr Patch [Habitrol] 1 patch TRANSDERM DAILY 01/21/24 03/03/24 ALPRAZolam [Xanax] 0.5 - 1 mg PO Q8H PRN 03/03/24 03/03/24 HYDROcodone/APAP 5-325MG [[place] 1 tab PO Q6HR PRN 03/03/24 03/03/24 5-325] hydroCHLOROthiazide 12.5 mg PO DIRECTED 03/03/24 03/03/24 Previous Rx's Medication Instructions Recorded Ipratropium-Albuterol Nebulize 3 ml INHALATION RT-QID each 01/21/24 [Duoneb 0.5 mg-3 mg/3 ml Soln] Rxjzfulw-Tclxityyeg-Vdoi Oint 1 applic TOPICAL BID PRN each 02/14/24 [Triple Antibiotic Ointment] atenoloL [Tenormin] 50 mg PO DAILY #30 tab 02/14/24 Acetaminophen Tab [Tylenol] 650 mg PO Q4HR PRN tab 02/21/24 predniSONE See Taper PO DIRECTED #30 tab 02/21/24 Allergies Allergy/AdvReac Type Severity Reaction Status Date / Time Penicillins Allergy Anaphylaxis Verified 03/10/24 18:51 Review of Systems ROS Statement: Those systems with pertinent positive or pertinent negative responses have been documented in the HPI. ROS Other: All systems not noted in ROS Statement are negative. Past Medical History Past Medical History: Asthma, Blood Disorder, COPD, CVA/TIA, Hypertension Additional Past Medical History / Comment(s): HIV, anxiety History of Any Multi-Drug Resistant Organisms: None Reported Past Surgical History: No Surgical Hx Reported Additional Past Surgical History / Comment(s): peg and tracheostomy reversal 2023 Past Anesthesia/Blood Transfusion Reactions: No Reported Reaction Past Psychological History: Anxiety, Depression, Panic Disorder Smoking Status: Former smoker Past Alcohol Use History: None Reported, Occasional Past Drug Use History: None Reported - Past Family History Mother History Unknown: Yes Family Medical History: CVA/TIA Father Family Medical History: Cancer General Exam - General Exam Comments Initial Comments: PE: CONSTITUTIONAL: No apparent distress, chronically ill-appearing, nontoxic, round facies SKIN: Cool, LE damp, weeping clear fluid, distal LE cool to the touch, <2s cap refill, scattered bruising across arms and abdomen, no jaundice, hives or petechiae EYES: Pupils are equally round, extraocular movements intact without nystagmus, clear conjunctiva, non-icteric sclera HENT: Normocephalic, atraumatic, moist mucus membranes, oropharynx clear without exudates NECK: , Full range of motion, normal appearance PULMONARY: Decreased breath sounds throughout, otherwise no wheezes, rhonchi, rales or crackles, no stridor, no accessory muscle use, mildly tachypneic CARDIOVASCULAR: Regular rate, rhythm, normal S1 and S2. No appreciated murmurs, rubs or gallops. Strong radial pulses with intact distal perfusion. 3+ lower extremity edema extending up to knees bilaterally GASTROINTESTINAL: Soft, active bowel sounds throughout, tender in areas of bruisingnon-distended, no palpable masses, no rebound or guarding. No hepatosplenomegaly MUSCULOSKELETAL: Extremities have no gross deformity NEUROLOGIC:_a/o x 3, GCS 15, normal mentation and speech. Moves all extremities x 4 without motor or sensory deficit PSYCHIATRIC:_normal mood and affect, thought process is clear and linear Limitations: no limitations Course Vital Signs 03/10/24 03/10/24 03/10/24 18:45 19:35 19:50 Temperature 97.4 F L Pulse Rate 85 74 88 Respiratory 20 Rate Blood Pressure 139/96 O2 Sat by Pulse 99 Oximetry Fraction of Inspired Oxygen (FIO2) 03/10/24 03/10/24 03/11/24 22:07 22:44 00:01 Temperature 97.6 F Pulse Rate 87 Respiratory 18 Rate Blood Pressure 102/71 O2 Sat by Pulse 98 Oximetry Fraction of 36 36 Inspired Oxygen (FIO2) EKG Findings - EKG Comments: EKG Findings:: Sinus rhythm, rate 75 bpm, MN interval 125 ms, QT/QTc 325/354 ms, normal axis, no ST elevations or depressions, no arrhythmia, Compared to EKG performed on 03/03/2024, T waves appear slightly more prominent in leads V4 through V6 when compared to prior, otherwise no significant changes from prior Medical Decision Making - Medical Decision Making Was pt. sent in by a medical professional or institution (, [facility], SENIOR UNIX ADMINISTRATOR, urgent care, hospital, or prison...) When possible be specific @ -No Did you speak to anyone other than the patient for history (EMS, parent, family, police, friend...)? What history was obtained from this source @ -No Did you review nursing and triage notes (agree or disagree)? Why? @ -I reviewed and agree with nursing and triage notes Were old charts reviewed (outside hosp., previous admission, EMS record, old EKG, old radiological studies, urgent care reports/EKG's, prison records)? Report findings @ -Medical records reviewed, Reviewed discharge summary from patient's recent admission on 03/03/2024 when she was admitted for shortness of breath and COPD exacerbation, during that admission she received 60 mg methylprednisolone every 6 hours. Differential diagnosis remains broad however top considerations include peripheral edema 2/2 steroid administration, DVT, CHF, myxedema coma, cellulitis, this is not all inclusive list EKG interpreted by me (3pts min.). @ -As above X-rays interpreted by me (1pt min.). @ -No consolidations or pleural effusions, no cardiomegaly CT interpreted by me (1pt min.). @ -None done U/S interpreted by me (1pt. min.). @ -No evidence of occlusive DVT What testing was considered but not performed or refused? (CT, X-rays, U/S, labs)? Why? @ -None What meds were considered but not given or refused? Why? @ -None Did you discuss the management of the patient with other professionals (professionals i.e. , [facility], SENIOR UNIX ADMINISTRATOR, lab, RT, psych nurse, child protective services social worker, hematology supervisor, teacher, ethics officer, housing case manager)? Give summary @ -No Was smoking cessation discussed for >3mins.? @ -No Was critical care preformed (if so, how long)? @ -No Were there social determinants of health that impacted care today? How? (Homelessness, low income, unemployed, alcoholism, drug addiction, transportation, low edu. Level, literacy, decrease access to med. care, penitentiary, rehab)? @ -No Was there de-escalation of care discussed even if they declined (Discuss DNR or withdrawal of care, Hospice)? @ -No What co-morbidities impacted this encounter? (DM, HTN, Smoking, COPD, CAD, Cancer, CVA, ARF, Chemo, Hep., AIDS, mental health diagnosis, sleep apnea, morbid obesity)? @ -COPD Was patient admitted / discharged? Hospital course, mention meds given and route, prescriptions, significant lab abnormalities, going to OR and other pertinent info. @Admission- Ultrasound negative for DVT, Reviewed patient's labs significant for mild leukocytosis with white blood cell count 11.6, this is slightly increased from prior on 03/08/2024 I suspect this is secondary to recent steroid administration mild anemia with hemoglobin 10.1 though this is consistent with patient's baseline elevated carbon dioxide level 41, I suspect this is secondary to patient's underlying COPD and the fact that she has not been able to use her home BiPAP like she is supposed to due to issues with not knowing how it works, TSH is decreased 0.302 pending free T4, kidney function within normal limits. . Plan for admission for edema causing patient to not be able to ambulate. K 4.7, so IV lasix ordered in an effort to help relief LE edema. Updated pt to plan and findings. Pt agreeable with plan for admission. Discussed with Dr. Palacio, kindly accepts patient for admission. Undiagnosed new problem with uncertain prognosis? @ -No Drug Therapy requiring intensive monitoring for toxicity (Heparin, Nitro, Insulin, Cardizem)? @ -No Were any procedures done? @ -No Diagnosis/symptom? @ Lower extremity edema Acute, or Chronic, or Acute on Chronic? @ acute Uncomplicated (without systemic symptoms) or Complicated (systemic symptoms)? @complicated Side effects of treatment? @ -No Exacerbation, Progression, or Severe Exacerbation? @ -No Poses a threat to life or bodily function? How? (Chest pain, [place], PR, pneumonia, PE, COPD, DKA, ARF, appy, cholecystitis, CVA, Diverticulitis, Homicidal, Suicidal, threat to staff... and all critical care pts) @ -No - Lab Data Result diagrams: 03/10/24 19:43 03/10/24 19:43 Lab Results 03/10/24 03/10/24 03/10/24 Range/Units 19:43 19:43 19:43 WBC 11.6 H (3.8-10.6) k/uL RBC 3.23 L (3.80-5.40) m/uL Hgb 10.1 L (11.4-16.0) gm/dL Hct 32.0 L (34.0-46.0) % MCV 98.9 (80.0-100.0) fL MCH 31.3 (25.0-35.0) pg MCHC 31.7 (31.0-37.0) g/dL RDW 15.0 (11.5-15.5) % Plt Count 344 (150-450) k/uL MPV 6.6 Neutrophils % 87 % Lymphocytes % 6 % Monocytes % 5 % Eosinophils % 0 % Basophils % 1 % Neutrophils # 10.1 H (1.3-7.7) k/uL Lymphocytes # 0.7 L (1.0-4.8) k/uL Monocytes # 0.5 (0-1.0) k/uL Eosinophils # 0.0 (0-0.7) k/uL Basophils # 0.1 (0-0.2) k/uL Hypochromasia Slight Macrocytosis Slight PT 9.9 L (10.0-12.5) sec INR 0.9 (<1.2) APTT 19.2 L (22.0-30.0) sec Sodium 133 L (137-145) mmol/L Potassium 4.7 (3.5-5.1) mmol/L Chloride 90 L (98-107) mmol/L Carbon Dioxide 41 H* (22-30) mmol/L Anion Gap 2 mmol/L BUN 20 H (7-17) mg/dL Creatinine 0.29 L (0.52-1.04) mg/dL Est GFR (CKD-EPI)AfAm >90 (>60 ml/min/1.73 sqM) Est GFR (CKD-EPI)NonAf >90 (>60 ml/min/1.73 sqM) Glucose 146 H (74-99) mg/dL Calcium 8.1 L (8.4-10.2) mg/dL Magnesium 2.3 (1.6-2.3) mg/dL Total Bilirubin 0.4 (0.2-1.3) mg/dL AST 35 (14-36) U/L ALT 56 H (4-34) U/L Alkaline Phosphatase 65 (38-126) U/L Troponin I (0.000-0.034) ng/mL NT-Pro-B Natriuret Pep 476 pg/mL Total Protein 5.5 L (6.3-8.2) g/dL Albumin 3.4 L (3.5-5.0) g/dL TSH 0.302 L (0.465-4.680) mIU/L Free T4 0.61 L (0.78-2.19) ng/dL 03/10/24 Range/Units 19:43 WBC (3.8-10.6) k/uL RBC (3.80-5.40) m/uL Hgb (11.4-16.0) gm/dL Hct (34.0-46.0) % MCV (80.0-100.0) fL MCH (25.0-35.0) pg MCHC (31.0-37.0) g/dL RDW (11.5-15.5) % Plt Count (150-450) k/uL MPV Neutrophils % % Lymphocytes % % Monocytes % % Eosinophils % % Basophils % % Neutrophils # (1.3-7.7) k/uL Lymphocytes # (1.0-4.8) k/uL Monocytes # (0-1.0) k/uL Eosinophils # (0-0.7) k/uL Basophils # (0-0.2) k/uL Hypochromasia Macrocytosis PT (10.0-12.5) sec INR (<1.2) APTT (22.0-30.0) sec Sodium (137-145) mmol/L Potassium (3.5-5.1) mmol/L Chloride (98-107) mmol/L Carbon Dioxide (22-30) mmol/L Anion Gap mmol/L BUN (7-17) mg/dL Creatinine (0.52-1.04) mg/dL Est GFR (CKD-EPI)AfAm (>60 ml/min/1.73 sqM) Est GFR (CKD-EPI)NonAf (>60 ml/min/1.73 sqM) Glucose (74-99) mg/dL Calcium (8.4-10.2) mg/dL Magnesium (1.6-2.3) mg/dL Total Bilirubin (0.2-1.3) mg/dL AST (14-36) U/L ALT (4-34) U/L Alkaline Phosphatase (38-126) U/L Troponin I <0.012 (0.000-0.034) ng/mL NT-Pro-B Natriuret Pep pg/mL Total Protein (6.3-8.2) g/dL Albumin (3.5-5.0) g/dL TSH (0.465-4.680) mIU/L Free T4 (0.78-2.19) ng/dL Disposition Clinical Impression: Bilateral lower extremity edema Disposition: ADMITTED IP TO THIS HOSP Condition: Stable
[2024-03-10] MEDS: IPRATROPIUM-ALBUTEROL 3 ML NEB INHALATION STA (19:33)
[2024-03-10] MEDS: HYDROcodone/APAP 5-325MG 1 EACH TAB PO STA (19:34)
[2024-03-10 20:05] LABS: ALT 56 U/L (4-34); AST 35 U/L (14-36); African American GFR (CKD) >90 (>60 ml/min/1.73 sqM); Albumin 3.4 g/dL (3.5-5.0); Alkaline Phosphatase 65 U/L (38-126); Blood Urea Nitrogen 20 mg/dL (7-17); Calcium 8.1 mg/dL (8.4-10.2); Chloride 90 mmol/L (98-107); Glucose 146 mg/dL (74-99); Magnesium 2.3 mg/dL (1.6-2.3); Non-African American GFR(CKD) >90 (>60 ml/min/1.73 sqM); Potassium 4.7 mmol/L (3.5-5.1); Sodium 133 mmol/L (137-145); Total Bilirubin 0.4 mg/dL (0.2-1.3); Total Protein 5.5 g/dL (6.3-8.2)
[2024-03-10 20:06] LABS: Basophils # (A) 0.1 k/uL (0-0.2); Basophils % (A) 1 %; Eosinophils % (A) 0 %; HGB 10.1 gm/dL (11.4-16.0); Hypochromasia Slight; Lymphocytes # (A) 0.7 k/uL (1.0-4.8); Lymphocytes % (A) 6 %; MCH 31.3 pg (25.0-35.0); MCHC 31.7 g/dL (31.0-37.0); MCV 98.9 fL (80.0-100.0); Macrocytosis Slight; Mean Platelet Volume 6.6; Monocytes # (A) 0.5 k/uL (0-1.0); Monocytes % (A) 5 %; Neutrophils # (A) 10.1 k/uL (1.3-7.7); Neutrophils % (A) 87 %; Platelet Count 344 k/uL (150-450); RBC 3.23 m/uL (3.80-5.40); WBC 11.6 k/uL (3.8-10.6)
[2024-03-10 20:09] LABS: INR 0.9 (<1.2); Prothrombin Time 9.9 sec (10.0-12.5)
[2024-03-10 20:11] LABS: Anion Gap 2 mmol/L
[2024-03-10 20:13] LABS: NT-Pro-B-Type Natriuretic Pept 476 pg/mL
[2024-03-10 20:19] LABS: Partial Thromboplastin Time 19.2 sec (22.0-30.0)
[2024-03-10 20:27] LABS: Carbon Dioxide 41 mmol/L (22-30)
--- NOTE | 2024-03-10 20:29 | US ---
EXAMINATION TYPE: US venous doppler duplex LE BI DATE OF EXAM: 03/10/2024 7:59 PM COMPARISON: NONE CLINICAL INDICATION: Female, 53 years old with history of bilat LE swelling; Leg swelling, Pain, Swel ling TECHNIQUE: The lower extremity deep venous system is examined utilizing real time linear array sonog darline with graded compression, color doppler sonography, and spectral doppler. SIDE PERFORMED: Bilateral FINDINGS: VESSELS IMAGED: Common Femoral Vein Deep Femoral Vein Greater Saphenous Vein * Femoral Vein Popliteal Vein Small Saphenous Vein * Proximal Calf Veins (* superficial vessels) Right Leg: Negative for DVT, Color Doppler imaging shows patency of the vessels. Spectral waveforms are within normal limits. Left Leg: Negative for DVT, Color Doppler imaging shows patency of the vessels. Spectral waveforms a re within normal limits. IMPRESSION: No ultrasound evidence for deep venous thrombosis. [facility], , 03/10/2024 8:26 PM
--- NOTE | 2024-03-10 20:31 | XR ---
EXAMINATION TYPE: XR chest 2V DATE OF EXAM: 03/10/2024 8:24 PM COMPARISON: Chest radiographs from03/03/2024 CLINICAL INDICATION: Female, 53 years old with history of difficulty breathing; [facility] TECHNIQUE: XR chest 2V Frontal and lateral views of the chest. FINDINGS: Lungs/Pleura: There is flattening of the diaphragm with increased lucency of the lungs. No evidence o f pneumothorax, pleural effusion or focal consolidation. Pulmonary vascularity: Unremarkable. Heart/mediastinum: Cardiomediastinal silhouette is unremarkable. Musculoskeletal: No acute osseous pathology. IMPRESSION: 1. No acute cardiopulmonary disease process. 2. COPD changes. [facility], , 03/10/2024 8:28 PM
[2024-03-10] MEDS: FUROSEMIDE 10 MG/ML 4 ML VIAL IV STA (20:49)
[2024-03-10 21:14] LABS: T4, Free (Free Thyroxine) 0.61 ng/dL (0.78-2.19)
[2024-03-10] MEDS ORDERED: NALOXONE 0.4 MG/ML 1 ML VIAL IV PRN (21:45)
[2024-03-10] MEDS ORDERED: ACETAMINOPHEN TAB 325 MG TAB PO PRN ×2 (21:45→21:48)
[2024-03-10] MEDS ORDERED: ONDANSETRON 4 MG TAB PO PRN (21:48)
[2024-03-10] MEDS ORDERED: ALBUTEROL NEBULIZED 2.5 MG/3 ML INHALATION PRN (21:48)
[2024-03-10] MEDS: MIRTAZAPINE 15 MG TAB PO SCH (22:42)
[2024-03-10] MEDS: NICOTINE 14MG/24HR PATCH TRANSDERM SCH (22:42)
[2024-03-11] MEDS: SYMBICORT 80-4.5 MCG INHALER INHALATION SCH (07:27)
[2024-03-11] MEDS: IPRATROPIUM-ALBUTEROL 3 ML NEB INHALATION PRN (07:28)
[2024-03-11] MEDS: ENOXAPARIN 40 MG/0.4 ML SYRINGE SQ SCH (08:53)
[2024-03-11] MEDS: LOSARTAN 50 MG TAB PO SCH (08:53)
[2024-03-11] MEDS: SPIRONOLACTONE 25 MG TAB PO SCH (08:54)
[2024-03-11] MEDS: atenoloL 50 MG TAB PO SCH (08:54)
[2024-03-11] MEDS: FUROSEMIDE 10 MG/ML 4 ML VIAL IV SCH (08:54)
[2024-03-11] MEDS: FAMOTIDINE 20 MG TAB PO SCH (08:54)
[2024-03-11] MEDS ORDERED: NON FORMULARY DRUG (Bictegrav/Emtricit/Tenofov Ala [Biktarvy 50-200-25 Mg Tablet] 1 EACH T PO SCH (09:00)
[2024-03-11] MEDS ORDERED: FLUTICASONE NASAL 50MCG/SPRAY 16GM BTL EA NOSTRIL PRN (09:00)
[2024-03-11] MEDS: hydroCHLOROthiazide 12.5 MG CAP PO SCH (09:30)
--- NOTE | 2024-03-11 12:49 | P.CNPUL ---
History of Present Illness Consult date: 03/11/24 Requesting physician: Zee Palacio Reason for consult: COPD Chief complaint: Lower extremity edema History of present illness: This is a 53-year-old female patient with known history of advanced COPD and previous history of HIV. The patient has been oxygen dependent and she utilizes Trelegy Ellipta on an outpatient basis as maintenance send maintained on prednisone 10 mg p.o. daily. She is on 2.5 L of oxygen as well as an AVAPS machine on outpatient basis. She was just discharged home March 08, 2024 for COPD exacerbation. She presented to the emergency room again yesterday 03/10/20 with increasing lower extremity edema with weeping of clear fluid. Dopplers of the lower extremities were negative for DVT. Chest x-ray reveals no acute cardiopulmonary process. Evidence of COPD. White count 11.6. Hemoglobin 10.1. Platelets 344. INR 0.9. Sodium 133. Potassium 4.7. Bicarb 41. BUN 20. Creatinine 0.29. Glucose 146. She is seen today in consultation on the regular medical floor. She is currently sitting up in bed having breakfast. Awake and alert in no acute distress. She denies any shortness of breath, cough or congestion. Her lower extremity edema is slightly improved today compared to yesterday. Initiated on Lasix 40 mg IV every 8 hours. Continued on Symbicort and DuoNeb inhalations. Lovenox for DVT prophylaxis. NicoDerm patch in place. Review of Systems REVIEW OF SYSTEMS: CONSTITUTIONAL: Denies any recent significant weight loss or weight gain. EYES: Denies change in vision. EARS, NOSE, MOUTH, THROAT: Denies headaches, denies sore throat. CARDIOVASCULAR: Denies chest pain, palpitations or syncopal episodes. RESPIRATORY: Denies shortness of breath, cough, congestion or hemoptysis. GASTROINTESTINAL: Denies change in appetite, denies abdominal pain GENITOURINARY: Denies hematuria, denies infections. MUSKULOSKELETAL: Positive for lower extremity weeping and swelling. INTEGUMENTARY: Denies rash, denies eczema. NEUROLOGICAL: Denies recent memory loss, no recent seizure activity. PSYCHIATRIC: Denies anxiety, denies depression. HEMATOLOGIC/LYMPHATIC: Denies anemia, denies enlarged lymph nodes. Past Medical History Past Medical History: Asthma, Blood Disorder, COPD, CVA/TIA, Hypertension Additional Past Medical History / Comment(s): HIV, anxiety History of Any Multi-Drug Resistant Organisms: None Reported Past Surgical History: No Surgical Hx Reported Additional Past Surgical History / Comment(s): peg and tracheostomy reversal 2023 Past Anesthesia/Blood Transfusion Reactions: No Reported Reaction Past Psychological History: Anxiety, Depression, Panic Disorder Smoking Status: Former smoker Past Alcohol Use History: None Reported, Occasional Past Drug Use History: None Reported - Past Family History Mother History Unknown: Yes Family Medical History: CVA/TIA Father Family Medical History: Cancer Medications and Allergies Home Medications Medication Instructions Recorded Confirmed Type Albuterol Sulfate [Albuterol 2 puff INHALATION RT-Q4H PRN 03/14/22 03/11/24 History Sulfate Hfa] Bictegrav/Emtricit/Tenofov Ala 1 tab PO DAILY 08/10/23 03/11/24 History [Biktarvy 50-200-25 mg Tablet] Ipratropium-Albuterol Nebulize 3 ml INHALATION RT-Q4H PRN 08/10/23 03/11/24 History [Duoneb 0.5 mg-3 mg/3 ml Soln] Famotidine [Pepcid] 20 mg PO BID 09/30/23 03/11/24 History Ondansetron [Zofran] 4 mg PO BID PRN 11/05/23 03/11/24 History Fluticasone Propionate [Flonase 1 spray EA NOSTRIL DAILY PRN 11/27/23 03/11/24 History Allergy Relief] Ibuprofen [Motrin Ib] 200 - 400 mg PO Q6H PRN 11/27/23 03/11/24 History Simethicone [Gas-X] 125 - 250 mg PO ACHS PRN 11/27/23 03/11/24 History Fluticasone/Umeclidin/Vilanter 1 puff INHALATION RT-DAILY 01/04/24 03/11/24 History [Trelegy Ellipta 200-62.5-25] Mirtazapine [Remeron] 15 mg PO HS 01/04/24 03/11/24 History Ipratropium-Albuterol Nebulize 3 ml INHALATION RT-QID each 01/21/24 03/11/24 Rx [Duoneb 0.5 mg-3 mg/3 ml Soln] Losartan [Cozaar] 50 mg PO BID 01/21/24 03/11/24 History Nicotine 14Mg/24Hr Patch [Habitrol] 1 patch TRANSDERM DAILY 01/21/24 03/11/24 History Qxafokpk-Viprydqmha-Lsqx Oint 1 applic TOPICAL BID PRN each 02/14/24 03/11/24 Rx [Triple Antibiotic Ointment] atenoloL [Tenormin] 50 mg PO DAILY #30 tab 02/14/24 03/11/24 Rx Acetaminophen Tab [Tylenol] 650 mg PO Q4HR PRN tab 02/21/24 03/11/24 Rx ALPRAZolam [Xanax] 0.5 - 1 mg PO Q8H PRN 03/03/24 03/11/24 History HYDROcodone/APAP 5-325MG [[place] 1 tab PO Q6HR PRN 03/03/24 03/11/24 History 5-325] hydroCHLOROthiazide 12.5 mg PO DAILY 03/03/24 03/11/24 History Allergies Allergy/AdvReac Type Severity Reaction Status Date / Time Penicillins Allergy Anaphylaxis Verified 03/11/24 07:51 Physical Exam Vitals: Vital Signs Temp Pulse Pulse Resp BP BP Pulse Ox 03/11/24 11:25 76 03/11/24 11:15 84 03/11/24 08:19 97.9 F 81 19 122/70 90 L 03/11/24 08:02 96 03/11/24 07:28 77 03/11/24 05:55 96.6 F L 78 14 92/62 98 03/11/24 04:23 03/11/24 03:00 81 16 99 03/11/24 00:01 03/10/24 22:44 97.6 F 87 18 102/71 98 03/10/24 22:07 03/10/24 19:50 88 03/10/24 19:35 74 03/10/24 18:45 97.4 F L 85 20 139/96 99 FiO2 03/11/24 11:25 03/11/24 11:15 03/11/24 08:19 03/11/24 08:02 03/11/24 07:28 03/11/24 05:55 03/11/24 04:23 36 03/11/24 03:00 03/11/24 00:01 36 03/10/24 22:44 03/10/24 22:07 36 03/10/24 19:50 03/10/24 19:35 03/10/24 18:45 Intake and Output 03/10/24 03/11/24 03/11/24 22:59 06:59 14:59 Output Total 1100 Balance -1100 Output: Urine 1100 Other: Voiding Method External Catheter Weight 49.895 kg 49.895 kg GENERAL EXAM: Alert, 53-year-old female, on 4 L nasal cannula, comfortable in no apparent distress. HEAD: Normocephalic. EYES: Normal reaction of pupils, equal size. NOSE: Clear with pink turbinates. THROAT: No erythema or exudates. NECK: No masses, no JVD. CHEST: No chest wall deformity. LUNGS: Equal air entry with no crackles, wheeze, rhonchi or dullness. CVS: S1 and S2 normal with no audible murmur, regular rhythm. ABDOMEN: No hepatosplenomegaly, normal bowel sounds, no guarding or rigidity. SPINE: No scoliosis or deformity SKIN: No rashes CENTRAL NERVOUS SYSTEM: No focal deficits, tone is normal in all 4 extremities. EXTREMITIES: There is 2+ peripheral edema, weeping. No clubbing, no cyanosis. Peripheral pulses are intact. Results - Laboratory Findings CBC and BMP: 03/10/24 19:43 03/10/24 19:43 PT/INR, D-dimer PT 9.9 sec (10.0-12.5) L 03/10/24 19:43 INR 0.9 (<1.2) 03/10/24 19:43 Abnormal lab findings: Abnormal Labs 03/10/24 03/10/24 03/10/24 19:43 19:43 19:43 WBC 11.6 H RBC 3.23 L Hgb 10.1 L Hct 32.0 L Neutrophils # 10.1 H Lymphocytes # 0.7 L PT 9.9 L APTT 19.2 L Sodium 133 L Chloride 90 L Carbon Dioxide 41 H* BUN 20 H Creatinine 0.29 L Glucose 146 H Calcium 8.1 L ALT 56 H Total Protein 5.5 L Albumin 3.4 L TSH 0.302 L Free T4 0.61 L - Diagnostic Findings Chest x-ray: image reviewed Assessment and Plan Assessment: Lower extremity edema and weeping of clear fluid. Initiated on IV diuretics. Echocardiogram pending Severe/stage IV COPD, with an FEV1 that is 22% of predicted Chronic hypoxemic respiratory failure, on home O2, 21/11. She also has an AVAPS machine now Chronic and ongoing tobacco use with nicotine addiction Multiple hospital admissions, more than 10 admissions this year alone, since July 2023, discharged again from the hospital on 03/08/2024 Previous history of ventilator dependent respiratory failure with previous tracheostomy and PEG tube placement, with subsequent Decannulization, and PEG tube removal Acquired immunodeficiency syndrome. Adequate CD4 count and undetectable viral count. Remains on Biktarvy History of upper lobe pulmonary nodule, being monitored Chronic metabolic alkalosis secondary to hypercapnic respiratory failure Plan: The patient was seen and evaluated Chest x-ray, Dopplers of the lower extremities, labs and medications reviewed No evidence of DVT Initiated on Lasix 40 mg IV every 8 hours Echocardiogram pending Stable from the COPD standpoint Continued on oxygen, bronchodilators Lovenox for DVT prophylaxis Educated again regarding smoking cessation NicoDerm patch in place We will continue to follow and make further recommendations based on her clinical status I have personally seen and examined the patient, performed the documentation and the assessment and plan as written. Number of minutes spent on the visit: 20 Dictation was produced using [employer] dictation software. Please excuse any grammatical, word or spelling errors.
--- NOTE | 2024-03-11 15:05 | P.HPIM ---
History of Present Illness H&P Date: 03/11/24 Chief Complaint: Lower extremity edema Patient is a is a 53-year-old female with past medical history of asthma, HIV, COPD with multiple exacerbations who was admitted a week ago, treated with steroids and discharged 3 days ago with Trilogy ventilator presented to the ED with lower extremity swelling and pain. She first noticed lower extremity edema yesterday and it has has continued to worsen since. When she was trying to elevate her legs she noticed that the blanket over her legs was wet. She reports clear discharge from her lower extremities. She also notes difficulty ambulating due to the pain and swelling in her legs. She states having experienced lower extremity swelling before for which she used to take OTC Dexiflush, but denies any prior history of any discharge from her LE. She complains of shortness of breath but mentions it has been better on the ventilator. Denies coughing, chest pain, palpitations, abdominal pain, nausea, vomiting, hemoptysis, dysuria, hematuria, hematochezia, melena, fever, chills. ED documentation reviewed. In the ED she was treated with furosemide 40 mg IV, [place], DuoNebs and placed on BiPAP overnight. Vitals on admission T 97.4 F, P 85 bpm, RR 20, BP 139/96, O2 sat 99% on 3 L nasal cannula EKG shows sinus rhythm, rate 75 bpm, QTc 354 ms Chest x-ray shows no acute cardiopulmonary disease process. COPD changes Venous Doppler lower extremity bilateral shows no evidence for DVT. Labs today show WBC 11.6, hemoglobin 10.1, PT 9.9, APTT 19.2, sodium 133, bicarb 41, BUN 20, creatinine 0.29, TSH 0.302, free T4.61, proBNP 6, troponin I <0.012 Review of systems: Pertinent positives and negatives as discussed in HPI, a complete review of systems was performed and all other systems are negative. PMH: Asthma, COPD, CVA, TIA, hypertension, HIV, anxiety FMH: CAD Social history: Tobacco: 30 pack years, has tried quitting since CVA in July 2023 Alcohol: Denies use Recreational drugs: Edible gummies occasionally Travel: No recent travel history Sick contacts: None Physical examination: General: nontoxic, no distress, appears at stated age Derm: warm, dry, intact Head: atraumatic, normocephalic, symmetric Eyes: EOMI, anicteric sclera Mouth: no lip lesion, mucus membranes moist Cardiovascular: S1 S2 reg, no murmur Lungs: Diminished lung sounds Abdominal: soft, non-tender to palpataion Extremities: B/L LE: 2+ pitting edema, clear discharge from LE ulcers, tender and cold to touch, no redness Neuro: Alert, Oriented, Gross neurological examination did not reveal any focal deficits. Psych: well appearing, appropriate affect Assessment/Plan: Patient is a 53 year old female with PMH of sthma, HIV, COPD with multiple exacerbations, chronic hypoxic respiratory failure presented to the ED couple days after discharge for lower extremity edema and clear discharge from her lower extremities. She has been admitted for further workup of the same #. Lower extremity edema, with clear discharge #. Suspected PAD Echocardiogram done on 08/29/2023 shows EF 65 to 70%, normal LV systolic function. Continue Lasix 40 mg IV Q8HR Started on Aspirin 81 mg PO daily and atorvastatin 40 mg daily Arterial ultrasound ordered Repeat echo ordered Fall precautions Neurochecks Q4HR Consult vascular surgery for suspected PAD #.Sick euthyroid TSH 0.302, free T4.61 Repeat TSH with free T4 outpatient in 4 weeks. #. Chronic hypoxic respiratory failure, #. Severe COPD Continue supplemental oxygen as required, Currently on 4L O2 via nasal cannula Continue albuterol nebulized every 4 hours as needed, Symbicort 2 puffs twice daily, Flonase 1 spray each nostril daily as needed, DuoNeb every 4 hours as needed Patient has her trilogy ventilator with her #. Hypertension Continue spironolactone 25 mg p.o. daily, losartan 50 mg p.o. twice daily, hydrochlorothiazide 12.5 mg p.o. daily, atenolol 50 mg p.o. daily #. Tobacco dependence Continue nicotine 14 mg/24-hour patch daily #. Anxiety Continue Xanax 0.5 to 1 mg p.o. every 8 hours as needed and mirtazapine 15 mg p.o. at bedtime #. Nausea and vomiting Continue Zofran 4 mg p.o. twice daily as needed #. Pain management Continue [place] 5325 1 each p.o. every 6 hours as needed F: None E: Replete as required N: Heart healthy diet A: Ambulatory DVT prophylaxis: Enoxaparin 40 mg SQ daily and SCD GI prophylaxis: Famotidine 20 mg p.o. twice daily The patient is admitted with an anticipated less than 2 midnight stay for evaluation of shortness of breath CODE STATUS: Full Code Discussed with: Patient and Anticipated discharge place: Home Attestation: I have personally seen and examined the patient with Resident, reviewed the documentation and participated and agree with the assessment and plan as written. Jacob Irizarry MD Past Medical History Past Medical History: Asthma, Blood Disorder, COPD, CVA/TIA, Hypertension Additional Past Medical History / Comment(s): HIV, anxiety History of Any Multi-Drug Resistant Organisms: None Reported Past Surgical History: No Surgical Hx Reported Additional Past Surgical History / Comment(s): peg and tracheostomy reversal 2023 Past Anesthesia/Blood Transfusion Reactions: No Reported Reaction Past Psychological History: Anxiety, Depression, Panic Disorder Smoking Status: Former smoker Past Alcohol Use History: None Reported, Occasional Past Drug Use History: None Reported - Past Family History Mother History Unknown: Yes Family Medical History: CVA/TIA Father Family Medical History: Cancer Medications and Allergies Home Medications Medication Instructions Recorded Confirmed Type Albuterol Sulfate [Albuterol 2 puff INHALATION RT-Q4H PRN 03/14/22 03/11/24 History Sulfate Hfa] Bictegrav/Emtricit/Tenofov Ala 1 tab PO DAILY 08/10/23 03/11/24 History [Biktarvy 50-200-25 mg Tablet] Ipratropium-Albuterol Nebulize 3 ml INHALATION RT-Q4H PRN 08/10/23 03/11/24 History [Duoneb 0.5 mg-3 mg/3 ml Soln] Famotidine [Pepcid] 20 mg PO BID 09/30/23 03/11/24 History Ondansetron [Zofran] 4 mg PO BID PRN 11/05/23 03/11/24 History Fluticasone Propionate [Flonase 1 spray EA NOSTRIL DAILY PRN 11/27/23 03/11/24 History Allergy Relief] Ibuprofen [Motrin Ib] 200 - 400 mg PO Q6H PRN 11/27/23 03/11/24 History Simethicone [Gas-X] 125 - 250 mg PO ACHS PRN 11/27/23 03/11/24 History Fluticasone/Umeclidin/Vilanter 1 puff INHALATION RT-DAILY 01/04/24 03/11/24 History [Trelegy Ellipta 200-62.5-25] Mirtazapine [Remeron] 15 mg PO HS 01/04/24 03/11/24 History Ipratropium-Albuterol Nebulize 3 ml INHALATION RT-QID each 01/21/24 03/11/24 Rx [Duoneb 0.5 mg-3 mg/3 ml Soln] Losartan [Cozaar] 50 mg PO BID 01/21/24 03/11/24 History Nicotine 14Mg/24Hr Patch [Habitrol] 1 patch TRANSDERM DAILY 01/21/24 03/11/24 History Qvxuzskz-Tbafmkcewk-Ucwf Oint 1 applic TOPICAL BID PRN each 02/14/24 03/11/24 Rx [Triple Antibiotic Ointment] atenoloL [Tenormin] 50 mg PO DAILY #30 tab 02/14/24 03/11/24 Rx Acetaminophen Tab [Tylenol] 650 mg PO Q4HR PRN tab 02/21/24 03/11/24 Rx ALPRAZolam [Xanax] 0.5 - 1 mg PO Q8H PRN 03/03/24 03/11/24 History HYDROcodone/APAP 5-325MG [[place] 1 tab PO Q6HR PRN 03/03/24 03/11/24 History 5-325] hydroCHLOROthiazide 12.5 mg PO DAILY 03/03/24 03/11/24 History Allergies Allergy/AdvReac Type Severity Reaction Status Date / Time Penicillins Allergy Anaphylaxis Verified 03/11/24 07:51 Physical Exam Vitals: Vital Signs Temp Pulse Pulse Resp BP BP Pulse Ox 03/11/24 08:19 97.9 F 81 19 122/70 90 L 03/11/24 08:02 96 03/11/24 07:28 77 03/11/24 05:55 96.6 F L 78 14 92/62 98 03/11/24 04:23 03/11/24 03:00 81 16 99 03/11/24 00:01 03/10/24 22:44 97.6 F 87 18 102/71 98 03/10/24 22:07 03/10/24 19:50 88 03/10/24 19:35 74 03/10/24 18:45 97.4 F L 85 20 139/96 99 FiO2 03/11/24 08:19 03/11/24 08:02 03/11/24 07:28 03/11/24 05:55 03/11/24 04:23 36 03/11/24 03:00 03/11/24 00:01 36 03/10/24 22:44 03/10/24 22:07 36 03/10/24 19:50 03/10/24 19:35 03/10/24 18:45 Intake and Output 03/10/24 03/11/24 03/11/24 22:59 06:59 14:59 Output Total 1100 Balance -1100 Output: Urine 1100 Other: Weight 49.895 kg Results CBC & Chem 7: 03/12/24 04:34 03/12/24 04:34 Labs: Abnormal Lab Results - Last 24 Hours (Table) 03/10/24 03/10/24 03/10/24 Range/Units 19:43 19:43 19:43 WBC 11.6 H (3.8-10.6) k/uL RBC 3.23 L (3.80-5.40) m/uL Hgb 10.1 L (11.4-16.0) gm/dL Hct 32.0 L (34.0-46.0) % Neutrophils # 10.1 H (1.3-7.7) k/uL Lymphocytes # 0.7 L (1.0-4.8) k/uL PT 9.9 L (10.0-12.5) sec APTT 19.2 L (22.0-30.0) sec Sodium 133 L (137-145) mmol/L Chloride 90 L (98-107) mmol/L Carbon Dioxide 41 H* (22-30) mmol/L BUN 20 H (7-17) mg/dL Creatinine 0.29 L (0.52-1.04) mg/dL Glucose 146 H (74-99) mg/dL Calcium 8.1 L (8.4-10.2) mg/dL ALT 56 H (4-34) U/L Total Protein 5.5 L (6.3-8.2) g/dL Albumin 3.4 L (3.5-5.0) g/dL TSH 0.302 L (0.465-4.680) mIU/L Free T4 0.61 L (0.78-2.19) ng/dL
[2024-03-11] MEDS: HYDROcodone/APAP 5-325MG 1 EACH TAB PO PRN (15:54)
[2024-03-11] MEDS: ASPIRIN 81 MG PO SCH (15:55)
[2024-03-11] MEDS: ATORVASTATIN 40 MG TAB PO SCH ×2 (17:20→22:15)
--- NOTE | 2024-03-11 19:43 | US ---
EXAMINATION TYPE: US arterial LE single level DATE OF EXAM: 03/11/2024 4:35 PM COMPARISONS: None. CLINICAL INDICATION: Female, 53 years old with history of lower extremity swelling and cold feet; Col d feet, swelling. TECHNIQUE: Systolic pressures were taken of the upper and lower extremity arteries with ankle-brachia l indices and toe brachial indices calculated bilaterally. History of: Smoker: Previous Hypertension: Yes Diabetic: No Hyperlipidemia: ?? TIA/CVA: Yes Previous Vascular Surgery: No CAD: No NV: No Vascular Ulcers: No Claudication: Bilateral Gangrene: No FINDINGS: Doppler Waveforms: Right: Multiphasic. Right dorsalis pedis and digital arteries however have a triphasic waveform Left: Multiphasic Brachial Artery systolic pressure: Right: 109 Left: Deferred due to IV Posterior Tibial artery systolic pressure: Right: 117 Left: 118 Dorsalis Pedis artery systolic pressure: Right: 90 Left: 110 Toe artery systolic pressure: Right: 63 Left: 74 Ankle-Brachial Indices: Right: 1.07 Left: 1.08 (Vessel hardening > 1.4; Normal 0.9 - 1.4, Moderate 0.7 - 0.9, Severe 0.5-0.7) Toe Brachial Indices: Right: 0.58 Left: 0.68 (Normal > 0.6; Mild 0.35 - 0.59, Moderate 0.12 - 0.34, Severe <0.12) IMPRESSION: 1. Minimal narrowing of the left digit artery based on ratios. Remaining structures appear normal [facility], , 03/11/2024 7:41 PM
[2024-03-11] MEDS: ALPRAZolam 1 MG TAB PO PRN (22:15)
--- NOTE | 2024-03-12 07:15 | CA ---
Transthoracic Echo Report Name: Neli Veloz Age: 53 Gender: F : 1970 Exam Date: 03/11/2024 14:04 Exam Location: [facility] Ht (in): 61 Wt (lb): 110 Ordering Physician: Cinthya Villegas MD Attending/Referring Phys: Crusher Cristina Calderon RDCS Procedure CPT: Indications: cor pulmonale,pulm htn Cardiac Hx: Technical Quality: Fair Contrast 1: Total Dose (mL): Contrast 2: Total Dose (mL): MEASUREMENTS (Male / Female) Normal Values 2D ECHO LV Diastolic Diameter PLAX 4.1 cm 4.2 - 5.9 / 3.9 - 5.3 cm LV Systolic Diameter PLAX 2.5 cm IVS Diastolic Thickness 1.1 cm 0.6 - 1.0 / 0.6 - 0.9 cm LVPW Diastolic Thickness 0.9 cm 0.6 - 1.0 / 0.6 - 0.9 cm LV Relative Wall Thickness 0.5 RV Internal Dim ED PLAX 2.5 cm LA Systolic Diameter LX 3.6 cm 3.0 - 4.0 / 2.7 - 3.8 cm LV Diastolic Volume MOD BP 40.5 cm??? 67 - 155 / 56 - 104 cm??? LV Systolic Volume MOD BP 11.3 cm??? 22 - 58 / 19 - 49 cm??? LV Ejection Fraction MOD BP 72.1 % >= 55 % LV Cardiac Index MOD BP 1413.2 cm???/min???m??? LV Diastolic Volume MOD 4C 42.6 cm??? LV Systolic Volume MOD 4C 10.3 cm??? LV Ejection Fraction MOD 4C 75.8 % LV Cardiac Index MOD 4C 1561.3 cm???/min???m??? LV Diastolic Length 4C 6.9 cm LV Systolic Length 4C 6.1 cm LV Diastolic Volume MOD 2C 37.7 cm??? LV Systolic Volume MOD 2C 11.5 cm??? LV Ejection Fraction MOD 2C 69.5 % LV Cardiac Index MOD 2C 1269.3 cm???/min???m??? LV Diastolic Length 2C 6.8 cm LV Systolic Length 2C 5.5 cm M-MODE Aortic Root Diameter MM 2.5 cm LA Systolic Diameter MM 2.9 cm LA Ao Ratio MM 1.2 DOPPLER Mitral E Point Velocity 77.8 cm/s Mitral A Point Velocity 88.5 cm/s Mitral E to A Ratio 0.9 MV Deceleration Time 249.5 ms MV E' Velocity 7.3 cm/s Mitral E to MV E' Ratio 10.7 TR Peak Velocity 272.9 cm/s TR Peak Gradient 39.5 mmHg Right Ventricular Systolic Press 44.5 mmHg FINDINGS Left Ventricle Left ventricular ejection fraction is estimated at 55-60 %. Mildly increased septal wall thickness. Normal left ventricular systolic function with no obvious regional wall motion abnormalities. Left ventricular cavity size normal. Right Ventricle Moderate right ventricular dilatation. Moderate pulmonary hypertension. Right Atrium Mild right atrial dilatation. Left Atrium Mild left atrial dilatation. Mitral Valve Structurally normal mitral valve. Mild to moderate mitral regurgitation. No mitral stenosis. Aortic Valve Trileaflet aortic valve. No aortic valve stenosis or regurgitation. Tricuspid Valve Structurally normal tricuspid valve. Mild tricuspid regurgitation. No tricuspid stenosis. Pulmonic Valve Structurally normal pulmonic valve. Trace pulmonic regurgitation. No pulmonic stenosis. Pericardium No pericardial or pleural effusion. Aorta Normal size aortic root and proximal ascending aorta. CONCLUSIONS Normal LV systolic function Mild to moderate mitral regurgitation Moderate pulmonary hypertension Moderately dilated right ventricle No pericardial effusion Previewed by: Dr. Cristobal Covington MD (Electronically Signed) Final Date: 12 March 2024 07:14
[2024-03-12 09:43] LABS: Anion Gap <10.00 mmol/L (4.00-12.00); BUN/Creat Ratio 33.67 Ratio (12.00-20.00); Blood Urea Nitrogen 10.1 mg/dL (9.0-27.0); Carbon Dioxide >45.0 mmol/L (21.6-31.8); Chloride 84 mmol/L (96-109); Glucose 89 mg/dL (70-110); Sodium 139 mmol/L (135-145)
[2024-03-12 09:44] LABS: Calcium 8.5 mg/dL (8.7-10.3)
--- NOTE | 2024-03-12 10:20 | P.GSCN ---
History of Present Illness Consult date: 03/12/24 Reason for Consult: Suspected peripheral arterial disease Requesting physician: Luis M Tadeo History of present illness: This a pleasant 53-year-old female with a past medical history of asthma, HIV, COPD with multiple exacerbations who was recently admitted about a week ago and treated with steroids and discharged home. Apparently after discharge she was noticing that she had increased swelling in her lower extremities which she states happens when she is on her steroids. She presented back with increased swelling to her lower extremities that were painful with weeping. It was also reported from nursing that apparently patient did not take her Lasix while she was at home either. Vascular surgery was consulted for lower extremity edema with suspected peripheral arterial disease. Patient denies any history of peripheral arterial disease. States that she does have varicose veins in her lower extremities and those can become painful with ambulating. She had a venous duplex that was negative for DVT of bilateral lower extremities. Primary medical team ordered arterial ultrasound with findings of multiphasic Doppler signals, and normal ABIs. She currently denies any shortness of breath or chest pain. States lower extremity swelling has improved significantly since admission. Review of Systems A 14 point review systems was completed all pertinent positives and negatives as stated in the HPI. Past Medical History Past Medical History: Asthma, Blood Disorder, COPD, CVA/TIA, Hypertension Additional Past Medical History / Comment(s): HIV, anxiety History of Any Multi-Drug Resistant Organisms: None Reported Past Surgical History: No Surgical Hx Reported Additional Past Surgical History / Comment(s): peg and tracheostomy reversal 2023 Past Anesthesia/Blood Transfusion Reactions: No Reported Reaction Past Psychological History: Anxiety, Depression, Panic Disorder Smoking Status: Former smoker Past Alcohol Use History: None Reported, Occasional Past Drug Use History: None Reported - Past Family History Mother History Unknown: Yes Family Medical History: CVA/TIA Father Family Medical History: Cancer Medications and Allergies Home Medications Medication Instructions Recorded Confirmed Type Albuterol Sulfate [Albuterol 2 puff INHALATION RT-Q4H PRN 03/14/22 03/11/24 History Sulfate Hfa] Bictegrav/Emtricit/Tenofov Ala 1 tab PO DAILY 08/10/23 03/11/24 History [Biktarvy 50-200-25 mg Tablet] Ipratropium-Albuterol Nebulize 3 ml INHALATION RT-Q4H PRN 08/10/23 03/11/24 History [Duoneb 0.5 mg-3 mg/3 ml Soln] Famotidine [Pepcid] 20 mg PO BID 09/30/23 03/11/24 History Ondansetron [Zofran] 4 mg PO BID PRN 11/05/23 03/11/24 History Fluticasone Propionate [Flonase 1 spray EA NOSTRIL DAILY PRN 11/27/23 03/11/24 History Allergy Relief] Ibuprofen [Motrin Ib] 200 - 400 mg PO Q6H PRN 11/27/23 03/11/24 History Simethicone [Gas-X] 125 - 250 mg PO ACHS PRN 11/27/23 03/11/24 History Fluticasone/Umeclidin/Vilanter 1 puff INHALATION RT-DAILY 01/04/24 03/11/24 History [Trelegy Ellipta 200-62.5-25] Mirtazapine [Remeron] 15 mg PO HS 01/04/24 03/11/24 History Ipratropium-Albuterol Nebulize 3 ml INHALATION RT-QID each 01/21/24 03/11/24 Rx [Duoneb 0.5 mg-3 mg/3 ml Soln] Losartan [Cozaar] 50 mg PO BID 01/21/24 03/11/24 History Nicotine 14Mg/24Hr Patch [Habitrol] 1 patch TRANSDERM DAILY 01/21/24 03/11/24 History Caofnxto-Miavrkefji-Umrj Oint 1 applic TOPICAL BID PRN each 02/14/24 03/11/24 Rx [Triple Antibiotic Ointment] atenoloL [Tenormin] 50 mg PO DAILY #30 tab 02/14/24 03/11/24 Rx Acetaminophen Tab [Tylenol] 650 mg PO Q4HR PRN tab 02/21/24 03/11/24 Rx ALPRAZolam [Xanax] 0.5 - 1 mg PO Q8H PRN 03/03/24 03/11/24 History HYDROcodone/APAP 5-325MG [[place] 1 tab PO Q6HR PRN 03/03/24 03/11/24 History 5-325] hydroCHLOROthiazide 12.5 mg PO DAILY 03/03/24 03/11/24 History Allergies Allergy/AdvReac Type Severity Reaction Status Date / Time Penicillins Allergy Anaphylaxis Verified 03/11/24 07:51 Surgical - Exam Vital Signs Temp Pulse Resp BP Pulse Ox 97.4 F L 85 20 139/96 99 03/10/24 18:45 03/10/24 18:45 03/10/24 18:45 03/10/24 18:45 03/10/24 18:45 General appearance: The patient is alert, oriented, appears in no acute distress. HET: Head is normocephalic and atraumatic. Pupils are equal and reactive. Neck: Supple. Heart: Regular. Lungs: Equal expansion, normal respiratory effort. Abdomen: Soft, nontender, nondistended. Extremities: Normal skin color and turgor. +1 pitting edema bilaterally. Palpable DP and PT pulses bilaterally. No notable varicose veins. Neurological: No focal deficits. Strength and sensation are grossly intact. Results - Labs 03/10/24 19:43 03/12/24 04:34 - Imaging Comments: Lower extremity venous duplex with negative DVT bilaterally. Lower extremity arterial ultrasound with bilateral multiphasic waveforms. ABIs right 1.07, left 1.08. Echocardiogram reports normal LV systolic function. Mild to moderate mitral reg urgitation. Moderate pulmonary hypertension. Moderate dilated right ventricle. No pericardial effusion. Assessment and Plan Assessment: 1. Bilateral lower extremity edema without any evidence of peripheral arterial disease 2. COPD Plan: Patient with palpable bilateral DP pulses. Lower extremities with good capillary refill, warm to the touch. With no evidence of peripheral arterial disease, ABIs within normal limits. There is no indication for any vascular surgical intervention. Recommend bilateral lower extremity compression stockings. Elevate lower extremities as needed. Thank you for this consultation, we will sign off at this time. The impression and plan of care has been dictated as directed. I performed a history and examination of this patient, discussed the same with the dictator. I agree with the dictator's note ,documented as a scribe. Any additional findings or plans will be noted.
--- NOTE | 2024-03-12 11:34 | P.PN ---
Subjective Progress Note Date: 03/12/24 This is a 53-year-old female patient with known history of advanced COPD and previous history of HIV. The patient has been oxygen dependent and she utilizes Trelegy Ellipta on an outpatient basis as maintenance send maintained on prednisone 10 mg p.o. daily. She is on 2.5 L of oxygen as well as an AVAPS machine on outpatient basis. She was just discharged home March 08, 2024 for COPD exacerbation. She presented to the emergency room again yesterday 03/10/2024 with increasing lower extremity edema with weeping of clear fluid. Dopplers of the lower extremities were negative for DVT. Chest x-ray reveals no acute cardiopulmonary process. Evidence of COPD. White count 11.6. Hemoglobin 10.1. Platelets 344. INR 0.9. Sodium 133. Potassium 4.7. Bicarb 41. BUN 20. Creatinine 0.29. Glucose 146. She is seen today in consultation on the regular medical floor. She is currently sitting up in bed having breakfast. Awake and alert in no acute distress. She denies any shortness of breath, cough or congestion. Her lower extremity edema is slightly improved today compared to yesterday. Initiated on Lasix 40 mg IV every 8 hours. Continued on Symbicort and DuoNeb inhalations. Lovenox for DVT prophylaxis. NicoDerm patch in place. The patient is seen today March 12, 2024 in follow-up on the regular medical floor. She is currently resting comfortably in bed. Awake and alert in no acute distress. She is maintaining O2 saturations up to 100% on 3 L/min per nasal cannula. She does wear her AVAPS machine at night. She denies any worsening shortness of breath, cough or congestion. Echocardiogram revealed preserved left ventricular systolic function with ejection fraction 55 to 60%. Moderate pulmonary hypertension. She remains on Lasix 40 mg IV every 8 hours. Currently in a -1.3 L balance. Potassium 4.0. Bicarb 45. BUN 10. Creatinine 0.3. Glucose 89. She remains on bronchodilators. NicoDerm patch in place. Objective - Vital Signs Vital signs: Vital Signs Temp 97.8 F 03/12/24 08:00 Pulse 83 03/12/24 10:50 Resp 18 03/12/24 10:50 BP 101/65 03/12/24 10:50 Pulse Ox 100 03/12/24 10:50 FiO2 36 03/11/24 23:30 Intake & Output 03/11/24 03/12/24 03/12/24 18:59 06:59 18:59 Intake Total 590 Output Total 1950 Balance -1949 590 Weight 49.895 kg Intake: Oral 590 Output: Urine 1950 Other: Voiding Method External Catheter Bedside Commode # Voids 2 # Bowel Movements 1 - Exam GENERAL EXAM: Alert, 53-year-old female, on 3 L nasal cannula, comfortable in no apparent distress. HEAD: Normocephalic. EYES: Normal reaction of pupils, equal size. NOSE: Clear with pink turbinates. THROAT: No erythema or exudates. NECK: No masses, no JVD. CHEST: No chest wall deformity. LUNGS: Equal air entry with no crackles, wheeze, rhonchi or dullness. CVS: S1 and S2 normal with no audible murmur, regular rhythm. ABDOMEN: No hepatosplenomegaly, normal bowel sounds, no guarding or rigidity. SPINE: No scoliosis or deformity SKIN: No rashes CENTRAL NERVOUS SYSTEM: No focal deficits, tone is normal in all 4 extremities. EXTREMITIES: There is 1-2+ peripheral edema, weeping. No clubbing, no cyanosis. Peripheral pulses are intact. - Labs CBC & Chem 7: 03/10/24 19:43 03/12/24 04:34 Labs: Abnormal Lab Results - Last 24 Hours (Table) 03/12/24 Range/Units 04:34 Chloride 84 L (96-109) mmol/L Carbon Dioxide >45.0 A* (21.6-31.8) mmol/L Creatinine 0.3 L (0.6-1.5) mg/dL BUN/Creatinine Ratio 33.67 H (12.00-20.00) Ratio Calcium 8.5 L (8.7-10.3) mg/dL Assessment and Plan Assessment: Lower extremity edema and weeping of clear fluid secondary to cor pulmonale. Echocardiogram revealed preserved left ventricular systolic function. There is moderate pulmonary hypertension. Severe/stage IV COPD, with an FEV1 that is 22% of predicted Chronic hypoxemic respiratory failure, on home O2, 21/11. She also has an AVAPS machine now Chronic and ongoing tobacco use with nicotine addiction Multiple hospital admissions, more than 10 admissions this year alone, since July 2023, discharged again from the hospital on 03/08/2024 Previous history of ventilator dependent respiratory failure with previous tracheostomy and PEG tube placement, with subsequent Decannulization, and PEG tube removal Acquired immunodeficiency syndrome. Adequate CD4 count and undetectable viral count. Remains on Biktarvy History of upper lobe pulmonary nodule, being monitored Chronic metabolic alkalosis secondary to hypercapnic respiratory failure Plan: The patient was seen and evaluated Labs and medications reviewed Echocardiogram reviewed Discontinue IV diuretics Initiate oral diuretics once daily Lovenox for DVT prophylaxis NicoDerm patch in place We will continue to follow I have personally seen and examined the patient, performed the documentation and the assessment and plan as written. Number of minutes spent on the visit: 10 Dictation was produced using [employer] dictation software. Please excuse any grammatical, word or spelling errors.
[2024-03-12 12:02] LABS: HCT 31.2 % (37.2-46.3); HGB 9.6 g/dL (12.0-15.0); MCH 31.5 pg (27.0-32.0); MCHC 30.8 g/dL (32.0-37.0); MCV 102.3 FL (80.0-97.0); Mean Platelet Volume 9.1 FL (9.5-12.2); NRBC Per 100 WBC 0.02 X 10*3/uL (0.00-0.01); Platelet Count 291 X 10*3/uL (140-440); RBC 3.05 X 10*6/uL (4.10-5.20); WBC 10.67 X 10*3/uL (4.50-10.00)
--- NOTE | 2024-03-12 13:42 | P.PN ---
Subjective Progress Note Date: 03/12/24 Principal diagnosis: Hospital course: Patient is a is a 53-year-old female with past medical history of asthma, HIV, COPD with multiple exacerbations who was admitted a week ago, treated with steroids and discharged 3 days ago with Trilogy ventilator presented to the ED with lower extremity swelling and pain. She first noticed lower extremity edema yesterday and it has has continued to worsen since. When she was trying to elevate her legs she noticed that the blanket over her legs was wet. She reports clear discharge from her lower extremities. She also notes difficulty ambulating due to the pain and swelling in her legs. She states having experienced lower extremity swelling before for which she used to take OTC Dexiflush, but denies any prior history of any discharge from her LE. She complains of shortness of breath but mentions it has been better on the ventilator. Denies coughing, chest pain, palpitations, abdominal pain, nausea, vomiting, hemoptysis, dysuria, hematuria, hematochezia, melena, fever, chills. ED documentation reviewed. In the ED she was treated with furosemide 40 mg IV, Locke, DuoNebs and placed on BiPAP overnight. Vitals on admission T 97.4 F, P 85 bpm, RR 20, BP 139/96, O2 sat 99% on 3 L nasal cannula EKG shows sinus rhythm, rate 75 bpm, QTc 354 ms Chest x-ray shows no acute cardiopulmonary disease process. COPD changes Venous Doppler lower extremity bilateral shows no evidence for DVT. Labs today show WBC 11.6, hemoglobin 10.1, PT 9.9, APTT 19.2, sodium 133, bicarb 41, BUN 20, creatinine 0.29, TSH 0.302, free T4.61, proBNP 6, troponin I <0.012 Review of systems: Pertinent positives and negatives as discussed in HPI, a complete review of systems was performed and all other systems are negative. PMH: Asthma, COPD, CVA, TIA, hypertension, HIV, anxiety FMH: CAD Social history: Tobacco: 30 pack years, has tried quitting since CVA in July 2023 Alcohol: Denies use Recreational drugs: Edible gummies occasionally Travel: No recent travel history Sick contacts: None 03/12/24: Patient seen and evaluated today at bedside. No acute events overnight. She notes an improvement in the swelling as well the discharge. Echocardiogram shows 55 to 60% EF, normal LV systolic function, mild to moderate MR, moderate pulmonary hypertension, moderately dilated right ventricle and no pericardial effusion. Lower extremity ultrasound shows minimal narrowing of the left digit artery based on ratios, remaining structures appear normal. Labs today show WBC 10.67, hemoglobin 9.6, MCV 102.3, bicarb 45. Review of systems: Pertinent positives and negatives as discussed in HPI, a complete review of systems was performed and all other systems are negative. Vitals: Signs Reviewed Physical examination: General: nontoxic, no distress, appears at stated age Derm: warm, dry, intact Head: atraumatic, normocephalic, symmetric Eyes: EOMI, anicteric sclera Mouth: no lip lesion, mucus membranes moist Cardiovascular: S1 S2 reg, no murmur Lungs: Diminished lung sounds Abdominal: soft, non-tender to palpataion Extremities: B/L LE: trace edema, no redness, TEDS hose Neuro: Alert, Oriented, Gross neurological examination did not reveal any focal deficits. Psych: well appearing, appropriate affect Assessment/Plan: Patient is a 53 year old female with PMH of sthma, HIV, COPD with multiple exacerbations, chronic hypoxic respiratory failure presented to the ED couple days after discharge for lower extremity edema and clear discharge from her lower extremities. She has been admitted for further workup of the same #. Lower extremity edema, with clear discharge Echocardiogram done on 08/29/2023 shows EF 65 to 70%, normal LV systolic function. Echocardiogram 03/11/24 shows 55 to 60% EF, normal LV systolic function, mild to moderate MR, moderate pulmonary hypertension, moderately dilated right ventricle and no pericardial effusion. Lower extremity ultrasound 03/11/24 shows minimal narrowing of the left digit artery based on ratios, remaining structures appear normal. Vascular surgery recommended compression stockings, no surgical intervention Lasix changed from IV to PO 40 mg daily Aspirin and statin discontinued Fall precautions Neurochecks Q4HR PT, OT and home health consulted #.Sick euthyroid TSH 0.302, free T4.61 Repeat TSH with free T4 outpatient in 4 weeks. #. Chronic hypoxic respiratory failure, #. Severe COPD Continue supplemental oxygen as required, Currently on 4L O2 via nasal cannula Continue albuterol nebulized every 4 hours as needed, Symbicort 2 puffs twice daily, Flonase 1 spray each nostril daily as needed, DuoNeb every 4 hours as needed Patient has her trilogy ventilator with her VBG tomorrow #. Hypotension Continue spironolactone 25 mg p.o. daily, atenolol 50 mg p.o. daily Hold losartan and hydrochlorthiazide #. Tobacco dependence Continue nicotine 14 mg/24-hour patch daily #. Anxiety Continue Xanax 0.5 to 1 mg p.o. every 8 hours as needed and mirtazapine 15 mg p.o. at bedtime #. Nausea and vomiting Continue Zofran 4 mg p.o. twice daily as needed #. Pain management Continue Locke 5325 1 each p.o. every 6 hours as needed F: None E: Replete as required N: Heart healthy diet A: Ambulatory DVT prophylaxis: Enoxaparin 40 mg SQ daily and SCD and TEDS hose GI prophylaxis: Famotidine 20 mg p.o. twice daily attestation: I have personally seen and examined the patient with Resident, reviewed the documentation and participated and agree with the assessment and plan as written. Jacob Irizarry MD Objective - Vital Signs Vital signs: Vital Signs Temp 97.8 F 03/12/24 08:00 Pulse 90 03/12/24 08:34 Resp 17 03/12/24 08:00 BP 87/56 03/12/24 08:00 Pulse Ox 100 03/12/24 08:34 FiO2 36 03/11/24 23:30 Intake & Output 03/11/24 03/12/24 03/12/24 18:59 06:59 18:59 Intake Total 590 Output Total 1950 Balance -1949 590 Weight 49.895 kg Intake: Oral 590 Output: Urine 1950 Other: Voiding Method External Catheter Bedside Commode # Voids 2 # Bowel Movements 1 - Labs CBC & Chem 7: 03/12/24 04:34 03/12/24 04:34
[2024-03-13 06:50] LABS: VBG PH 7.49 (7.31-7.41)
[2024-03-13 08:45] LABS: HCT 29.7 % (37.2-46.3); HGB 9.1 g/dL (12.0-15.0); MCH 31.3 pg (27.0-32.0); MCHC 30.6 g/dL (32.0-37.0); MCV 102.1 FL (80.0-97.0); Mean Platelet Volume 8.9 FL (9.5-12.2); NRBC Per 100 WBC 0 X 10*3/uL (0.00-0.01); Platelet Count 288 X 10*3/uL (140-440); RBC 2.91 X 10*6/uL (4.10-5.20); RDW 15.2 % (11.5-14.5); WBC 9.27 X 10*3/uL (4.50-10.00)
[2024-03-13 08:48] LABS: Blood Urea Nitrogen 6.6 mg/dL (9.0-27.0); Calcium 8.4 mg/dL (8.7-10.3); Carbon Dioxide 42.1 mmol/L (21.6-31.8); Chloride 90 mmol/L (96-109); Glucose 89 mg/dL (70-110); Potassium 4.5 mmol/L (3.5-5.5); Sodium 139 mmol/L (135-145)
[2024-03-13] MEDS ORDERED: FUROSEMIDE 40 MG TAB PO SCH (09:00)
[2024-03-13] MEDS: acetaZOLAMIDE 250 MG TAB PO SCH (11:07)
--- NOTE | 2024-03-13 11:38 | P.PN ---
Subjective Progress Note Date: 03/13/24 This is a 53-year-old female patient with known history of advanced COPD and previous history of HIV. The patient has been oxygen dependent and she utilizes Trelegy Ellipta on an outpatient basis as maintenance send maintained on prednisone 10 mg p.o. daily. She is on 2.5 L of oxygen as well as an AVAPS machine on outpatient basis. She was just discharged home March 08, 2024 for COPD exacerbation. She presented to the emergency room again yesterday 03/10/2024 with increasing lower extremity edema with weeping of clear fluid. Dopplers of the lower extremities were negative for DVT. Chest x-ray reveals no acute cardiopulmonary process. Evidence of COPD. White count 11.6. Hemoglobin 10.1. Platelets 344. INR 0.9. Sodium 133. Potassium 4.7. Bicarb 41. BUN 20. Creatinine 0.29. Glucose 146. She is seen today in consultation on the regular medical floor. She is currently sitting up in bed having breakfast. Awake and alert in no acute distress. She denies any shortness of breath, cough or congestion. Her lower extremity edema is slightly improved today compared to yesterday. Initiated on Lasix 40 mg IV every 8 hours. Continued on Symbicort and DuoNeb inhalations. Lovenox for DVT prophylaxis. NicoDerm patch in place. The patient is seen today March 12, 2024 in follow-up on the regular medical floor. She is currently resting comfortably in bed. Awake and alert in no acute distress. She is maintaining O2 saturations up to 100% on 3 L/min per nasal cannula. She does wear her AVAPS machine at night. She denies any worsening shortness of breath, cough or congestion. Echocardiogram revealed preserved left ventricular systolic function with ejection fraction 55 to 60%. Moderate pulmonary hypertension. She remains on Lasix 40 mg IV every 8 hours. Currently in a -1.3 L balance. Potassium 4.0. Bicarb 45. BUN 10. Creatinine 0.3. Glucose 89. She remains on bronchodilators. NicoDerm patch in place. The patient is seen today March 13, 2024 in follow-up on the regular medical floor. She is sitting up in bed. Awake and alert in no acute distress. She is currently on oxygen at 3 L/min per nasal cannula. Apparently she did not wear her AVAPS machine last night. Venous blood gas revealed a pH of 7.49, pCO2 of 64 and a bicarb of 49. White count 9.2. Hemoglobin 9.1. Platelets 288. Sodium 139. Potassium 4.5. Bicarb 42. BUN 7. Creatinine 0.3. Glucose 89. She remains on Symbicort, DuoNeb inhalations. Lovenox for DVT prophylaxis. NicoDerm patch in place. She has been initiated on Diamox. Objective - Vital Signs Vital signs: Vital Signs Temp 98.0 F 03/13/24 08:29 Pulse 78 03/13/24 11:16 Resp 17 03/13/24 08:29 BP 101/66 03/13/24 08:29 Pulse Ox 100 03/13/24 08:29 FiO2 36 03/11/24 23:30 Intake & Output 03/12/24 03/13/24 03/13/24 18:59 06:59 18:59 Intake Total 1102 Balance 1102 Intake: Oral 1102 Other: Voiding Method Bedside Commode Bedside Commode # Voids 1 2 # Bowel Movements 1 - Exam GENERAL EXAM: Alert, 53-year-old female, sitting up in bed, on 2 L nasal cannula, in no apparent distress. HEAD: Normocephalic. EYES: Normal reaction of pupils, equal size. NOSE: Clear with pink turbinates. THROAT: No erythema or exudates. NECK: No masses, no JVD. CHEST: No chest wall deformity. LUNGS: Equal air entry with no crackles, wheeze, rhonchi or dullness. CVS: S1 and S2 normal with no audible murmur, regular rhythm. ABDOMEN: No hepatosplenomegaly, normal bowel sounds, no guarding or rigidity. SPINE: No scoliosis or deformity SKIN: No rashes CENTRAL NERVOUS SYSTEM: No focal deficits, tone is normal in all 4 extremities. EXTREMITIES: There is 1-2+ peripheral edema, weeping. No clubbing, no cyanosis. Peripheral pulses are intact. - Labs CBC & Chem 7: 03/13/24 05:23 03/13/24 05:23 Labs: Abnormal Lab Results - Last 24 Hours (Table) 03/12/24 03/13/24 03/13/24 Range/Units 04:34 05:23 05:23 WBC 10.67 H (4.50-10.00) X 10*3/uL RBC 3.05 L 2.91 L (4.10-5.20) X 10*6/uL Hgb 9.6 L 9.1 L (12.0-15.0) g/dL Hct 31.2 L 29.7 L (37.2-46.3) % MCV 102.3 H 102.1 H (80.0-97.0) FL MCHC 30.8 L 30.6 L (32.0-37.0) g/dL RDW 15.0 H 15.2 H (11.5-14.5) % MPV 9.1 L 8.9 L (9.5-12.2) FL NRBC/100 WBC Diff 0.02 H (0.00-0.01) X 10*3/uL VBG pH 7.49 H (7.31-7.41) VBG pCO2 64 H (37-51) mmHg VBG HCO3 49 H (24-28) mmol/L Chloride (96-109) mmol/L Carbon Dioxide (21.6-31.8) mmol/L BUN (9.0-27.0) mg/dL Creatinine (0.6-1.5) mg/dL BUN/Creatinine Ratio (12.00-20.00) Ratio Calcium (8.7-10.3) mg/dL 03/13/24 Range/Units 05:23 WBC (4.50-10.00) X 10*3/uL RBC (4.10-5.20) X 10*6/uL Hgb (12.0-15.0) g/dL Hct (37.2-46.3) % MCV (80.0-97.0) FL MCHC (32.0-37.0) g/dL RDW (11.5-14.5) % MPV (9.5-12.2) FL NRBC/100 WBC Diff (0.00-0.01) X 10*3/uL VBG pH (7.31-7.41) VBG pCO2 (37-51) mmHg VBG HCO3 (24-28) mmol/L Chloride 90 L (96-109) mmol/L Carbon Dioxide 42.1 A* (21.6-31.8) mmol/L BUN 6.6 L (9.0-27.0) mg/dL Creatinine 0.3 L (0.6-1.5) mg/dL BUN/Creatinine Ratio 22.00 H (12.00-20.00) Ratio Calcium 8.4 L (8.7-10.3) mg/dL Assessment and Plan Assessment: Lower extremity edema and weeping of clear fluid secondary to cor pulmonale. Ec hocardiogram revealed preserved left ventricular systolic function. There is moderate pulmonary hypertension. Severe/stage IV COPD, with an FEV1 that is 22% of predicted Chronic hypoxemic respiratory failure, on home O2, 21/11. She also has an AVAPS machine now Chronic and ongoing tobacco use with nicotine addiction Multiple hospital admissions, more than 10 admissions this year alone, since July 2023, discharged again from the hospital on 03/08/2024 Previous history of ventilator dependent respiratory failure with previous tracheostomy and PEG tube placement, with subsequent Decannulization, and PEG tube removal Acquired immunodeficiency syndrome. Adequate CD4 count and undetectable viral count. Remains on Biktarvy History of upper lobe pulmonary nodule, being monitored Chronic metabolic alkalosis secondary to hypercapnic respiratory failure Plan: The patient was seen and evaluated Labs and medications reviewed Lasix discontinued Initiated on Diamox She is educated regarding the importance of wearing her AVAPS machine nightly Informed her the insurance company may take it back if she is noncompliant I have personally seen and examined the patient, performed the documentation and the assessment and plan as written. Number of minutes spent on the visit: 10 Dictation was produced using [employer] dictation software. Please excuse any grammatical, word or spelling errors.
--- NOTE | 2024-03-13 15:24 | P.PN ---
Subjective Progress Note Date: 03/13/24 Principal diagnosis: Hospital course: Patient is a is a 53-year-old female with past medical history of asthma, HIV, COPD with multiple exacerbations who was admitted a week ago, treated with steroids and discharged 3 days ago with Trilogy ventilator presented to the ED with lower extremity swelling and pain. She first noticed lower extremity edema yesterday and it has has continued to worsen since. When she was trying to elevate her legs she noticed that the blanket over her legs was wet. She reports clear discharge from her lower extremities. She also notes difficulty ambulating due to the pain and swelling in her legs. She states having experienced lower extremity swelling before for which she used to take OTC Dexiflush, but denies any prior history of any discharge from her LE. She complains of shortness of breath but mentions it has been better on the ventilator. Denies coughing, chest pain, palpitations, abdominal pain, nausea, vomiting, hemoptysis, dysuria, hematuria, hematochezia, melena, fever, chills. ED documentation reviewed. In the ED she was treated with furosemide 40 mg IV, Amoret, DuoNebs and placed on BiPAP overnight. Vitals on admission T 97.4 F, P 85 bpm, RR 20, BP 139/96, O2 sat 99% on 3 L nasal cannula EKG shows sinus rhythm, rate 75 bpm, QTc 354 ms Chest x-ray shows no acute cardiopulmonary disease process. COPD changes Venous Doppler lower extremity bilateral shows no evidence for DVT. Labs today show WBC 11.6, hemoglobin 10.1, PT 9.9, APTT 19.2, sodium 133, bicarb 41, BUN 20, creatinine 0.29, TSH 0.302, free T4.61, proBNP 6, troponin I <0.012 Review of systems: Pertinent positives and negatives as discussed in HPI, a complete review of systems was performed and all other systems are negative. PMH: Asthma, COPD, CVA, TIA, hypertension, HIV, anxiety FMH: CAD Social history: Tobacco: 30 pack years, has tried quitting since CVA in July 2023 Alcohol: Denies use Recreational drugs: Edible gummies occasionally Travel: No recent travel history Sick contacts: None 03/12/24: Patient seen and evaluated today at bedside. No acute events overnight. She notes an improvement in the swelling as well the discharge. Echocardiogram shows 55 to 60% EF, normal LV systolic function, mild to moderate MR, moderate pulmonary hypertension, moderately dilated right ventricle and no pericardial effusion. Lower extremity ultrasound shows minimal narrowing of the left digit artery based on ratios, remaining structures appear normal. Labs today show WBC 10.67, hemoglobin 9.6, MCV 102.3, bicarb 45. 03/13/24: Patient seen and examined today. Patient refused to use BiPAP last night. Hemodynamically stable. Patient notes a significant improvement in the swelling on her legs and has not seen any discharge from her legs. VBG done today shows pH 7.49, pCO2 64, bicarb 49. Labs today show Hb 9.1, MCV 102.1,Na 139, bicarb 42.1. Review of systems: Pertinent positives and negatives as discussed in HPI, a complete review of systems was performed and all other systems are negative. Vitals: Signs Reviewed Physical examination: General: nontoxic, no distress, appears at stated age Derm: warm, dry, intact Head: atraumatic, normocephalic, symmetric Eyes: EOMI, anicteric sclera Mouth: no lip lesion, mucus membranes moist Cardiovascular: S1 S2 reg, no murmur Lungs: Diminished lung sounds Abdominal: soft, non-tender to palpataion Extremities: B/L LE: trace edema, no redness, TEDS hose Neuro: Alert, Oriented, Gross neurological examination did not reveal any focal deficits. Psych: well appearing, appropriate affect Assessment/Plan: Patient is a 53 year old female with PMH of sthma, HIV, COPD with multiple exacerbations, chronic hypoxic respiratory failure presented to the ED couple days after discharge for lower extremity edema and clear discharge from her lower extremities. She has been admitted for further workup of the same #. Lower extremity edema, with clear discharge Echocardiogram done on 08/29/2023 shows EF 65 to 70%, normal LV systolic function. Echocardiogram 03/11/24 shows 55 to 60% EF, normal LV systolic function, mild to moderate MR, moderate pulmonary hypertension, moderately dilated right ventricle and no pericardial effusion. Lower extremity ultrasound 03/11/24 shows minimal narrowing of the left digit artery based on ratios, remaining structures appear normal. Vascular surgery recommended compression stockings, no surgical intervention Furosemide discontinued Fall precautions Neurochecks Q4HR PT, OT and home health consulted #. Metabolic alkalosis, secondary to diuretics VBG shows pH 7.49, pCO2 64, bicarb 49. BMP shows Bicarb 42.1 Diammox 250 mg PO daily Discontinue Lasix #.Sick euthyroid TSH 0.302, free T4.61 Repeat TSH with free T4 outpatient in 4 weeks. #. Chronic hypoxic respiratory failure, #. Severe COPD Continue supplemental oxygen as required, Currently on 4L O2 via nasal cannula Continue albuterol nebulized every 4 hours as needed, Symbicort 2 puffs twice daily, Flonase 1 spray each nostril daily as needed, DuoNeb every 4 hours as ne eded Patient has her trilogy ventilator with her #. Hypotension, resolved Continue spironolactone 25 mg p.o. daily, atenolol 50 mg p.o. daily Hold losartan and hydrochlorthiazide #. Tobacco dependence Continue nicotine 14 mg/24-hour patch daily #. Anxiety Continue Xanax 0.5 to 1 mg p.o. every 8 hours as needed and mirtazapine 15 mg p.o. at bedtime #. Nausea and vomiting Continue Zofran 4 mg p.o. twice daily as needed #. Pain management Continue Amoret 5325 1 each p.o. every 6 hours as needed F: None E: Replete as required N: Heart healthy diet A: Ambulatory DVT prophylaxis: Enoxaparin 40 mg SQ daily and SCD and TEDS hose GI prophylaxis: Famotidine 20 mg p.o. twice daily Attestation: I have personally seen and examined the patient with Resident, reviewed the documentation and participated and agree with the assessment and plan as written. Jacob Irizarry MD Objective - Vital Signs Vital signs: Vital Signs Temp 98.4 F 03/13/24 01:28 Pulse 74 03/13/24 07:42 Resp 18 03/13/24 01:28 BP 102/65 03/13/24 01:28 Pulse Ox 97 03/13/24 01:28 FiO2 36 03/11/24 23:30 Intake & Output 03/12/24 03/13/24 03/13/24 18:59 06:59 18:59 Intake Total 1102 Balance 1102 Intake: Oral 1102 Other: Voiding Method Bedside Commode Bedside Commode # Voids 1 2 # Bowel Movements 1 - Labs CBC & Chem 7: 03/14/24 05:43 03/14/24 05:43 Labs: Abnormal Lab Results - Last 24 Hours (Table) 03/12/24 03/12/24 03/13/24 Range/Units 04:34 04:34 05:23 WBC 10.67 H (4.50-10.00) X 10*3/uL RBC 3.05 L (4.10-5.20) X 10*6/uL Hgb 9.6 L (12.0-15.0) g/dL Hct 31.2 L (37.2-46.3) % MCV 102.3 H (80.0-97.0) FL MCHC 30.8 L (32.0-37.0) g/dL RDW 15.0 H (11.5-14.5) % MPV 9.1 L (9.5-12.2) FL NRBC/100 WBC Diff 0.02 H (0.00-0.01) X 10*3/uL VBG pH 7.49 H (7.31-7.41) VBG pCO2 64 H (37-51) mmHg VBG HCO3 49 H (24-28) mmol/L Chloride 84 L (96-109) mmol/L Carbon Dioxide >45.0 A* (21.6-31.8) mmol/L Creatinine 0.3 L (0.6-1.5) mg/dL BUN/Creatinine Ratio 33.67 H (12.00-20.00) Ratio Calcium 8.5 L (8.7-10.3) mg/dL
[2024-03-14 08:37] LABS: HCT 31.9 % (37.2-46.3); HGB 9.6 g/dL (12.0-15.0); MCH 31.6 pg (27.0-32.0); MCHC 30.1 g/dL (32.0-37.0); MCV 104.9 FL (80.0-97.0); Mean Platelet Volume 8.8 FL (9.5-12.2); NRBC Per 100 WBC 0 X 10*3/uL (0.00-0.01); Platelet Count 285 X 10*3/uL (140-440); RBC 3.04 X 10*6/uL (4.10-5.20); RDW 15.5 % (11.5-14.5); WBC 8.58 X 10*3/uL (4.50-10.00)
[2024-03-14 08:55] LABS: Blood Urea Nitrogen 5.7 mg/dL (9.0-27.0); Calcium 8.7 mg/dL (8.7-10.3); Carbon Dioxide 33.2 mmol/L (21.6-31.8); Chloride 95 mmol/L (96-109); Glucose 92 mg/dL (70-110); Potassium 4.8 mmol/L (3.5-5.5); Sodium 136 mmol/L (135-145)
--- NOTE | 2024-03-14 12:07 | P.PN ---
Subjective Progress Note Date: 03/14/24 This is a 53-year-old female patient with known history of advanced COPD and previous history of HIV. The patient has been oxygen dependent and she utilizes Trelegy Ellipta on an outpatient basis as maintenance send maintained on prednisone 10 mg p.o. daily. She is on 2.5 L of oxygen as well as an AVAPS machine on outpatient basis. She was just discharged home March 08, 2024 for COPD exacerbation. She presented to the emergency room again yesterday 03/10/2024 with increasing lower extremity edema with weeping of clear fluid. Dopplers of the lower extremities were negative for DVT. Chest x-ray reveals no acute cardiopulmonary process. Evidence of COPD. White count 11.6. Hemoglobin 10.1. Platelets 344. INR 0.9. Sodium 133. Potassium 4.7. Bicarb 41. BUN 20. Creatinine 0.29. Glucose 146. She is seen today in consultation on the regular medical floor. She is currently sitting up in bed having breakfast. Awake and alert in no acute distress. She denies any shortness of breath, cough or congestion. Her lower extremity edema is slightly improved today compared to yesterday. Initiated on Lasix 40 mg IV every 8 hours. Continued on Symbicort and DuoNeb inhalations. Lovenox for DVT prophylaxis. NicoDerm patch in place. The patient is seen today March 12, 2024 in follow-up on the regular medical floor. She is currently resting comfortably in bed. Awake and alert in no acute distress. She is maintaining O2 saturations up to 100% on 3 L/min per nasal cannula. She does wear her AVAPS machine at night. She denies any worsening shortness of breath, cough or congestion. Echocardiogram revealed preserved left ventricular systolic function with ejection fraction 55 to 60%. Moderate pulmonary hypertension. She remains on Lasix 40 mg IV every 8 hours. Currently in a -1.3 L balance. Potassium 4.0. Bicarb 45. BUN 10. Creatinine 0.3. Glucose 89. She remains on bronchodilators. NicoDerm patch in place. The patient is seen today March 13, 2024 in follow-up on the regular medical floor. She is sitting up in bed. Awake and alert in no acute distress. She is currently on oxygen at 3 L/min per nasal cannula. Apparently she did not wear her AVAPS machine last night. Venous blood gas revealed a pH of 7.49, pCO2 of 64 and a bicarb of 49. White count 9.2. Hemoglobin 9.1. Platelets 288. Sodium 139. Potassium 4.5. Bicarb 42. BUN 7. Creatinine 0.3. Glucose 89. She remains on Symbicort, DuoNeb inhalations. Lovenox for DVT prophylaxis. NicoDerm patch in place. She has been initiated on Diamox. The patient is seen today March 14, 2024 in follow-up on the regular medical floor. Awake and alert in no acute distress. Teen O2 saturations up to 100% on 3 L/min per nasal cannula. She is afebrile. Hemodynamically stable. White count 8.5. Hemoglobin 9.6. Platelets 285. Sodium 136. Potassium 4.8. Bicarb 33. BUN 6. Creatinine 0.3. Glucose 92. She remains on Symbicort, DuoNeb inhalations. Lovenox for DVT prophylaxis. NicoDerm patch in place. Remains on Diamox. Objective - Vital Signs Vital signs: Vital Signs Temp 98.5 F 03/14/24 07:27 Pulse 90 03/14/24 07:46 Resp 18 03/14/24 09:37 BP 102/63 03/14/24 07:27 Pulse Ox 99 03/14/24 07:35 FiO2 36 03/11/24 23:30 Intake & Output 03/13/24 03/14/24 03/14/24 18:59 06:59 18:59 Other: Voiding Method Toilet Bedside Commode # Voids 1 3 - Exam GENERAL EXAM: Alert, oriented 53-year-old female, on 3 L nasal cannula, in no apparent distress. HEAD: Normocephalic. EYES: Normal reaction of pupils, equal size. NOSE: Clear with pink turbinates. THROAT: No erythema or exudates. NECK: No masses, no JVD. CHEST: No chest wall deformity. LUNGS: Equal air entry with no crackles, wheeze, rhonchi or dullness. CVS: S1 and S2 normal with no audible murmur, regular rhythm. ABDOMEN: No hepatosplenomegaly, normal bowel sounds, no guarding or rigidity. SPINE: No scoliosis or deformity SKIN: No rashes CENTRAL NERVOUS SYSTEM: No focal deficits, tone is normal in all 4 extremities. EXTREMITIES: There is 1-2+ peripheral edema, weeping. No clubbing, no cyanosis. Peripheral pulses are intact. - Labs CBC & Chem 7: 03/14/24 05:43 03/14/24 05:43 Labs: Abnormal Lab Results - Last 24 Hours (Table) 03/14/24 03/14/24 Range/Units 05:43 05:43 RBC 3.04 L (4.10-5.20) X 10*6/uL Hgb 9.6 L (12.0-15.0) g/dL Hct 31.9 L (37.2-46.3) % MCV 104.9 H (80.0-97.0) FL MCHC 30.1 L (32.0-37.0) g/dL RDW 15.5 H (11.5-14.5) % MPV 8.8 L (9.5-12.2) FL Chloride 95 L (96-109) mmol/L Carbon Dioxide 33.2 H (21.6-31.8) mmol/L BUN 5.7 L (9.0-27.0) mg/dL Creatinine 0.3 L (0.6-1.5) mg/dL Assessment and Plan Assessment: Lower extremity edema and weeping of clear fluid secondary to cor pulmonale. Echocardiogram revealed preserved left ventricular systolic function. There is moderate pulmonary hypertension Severe/stage IV COPD, with an FEV1 that is 22% of predicted Chronic hypoxemic respiratory failure, on home O2, 21/11. She also has an AVAPS machine now Chronic and ongoing tobacco use with nicotine addiction Multiple hospital admissions, more than 10 admissions this year alone, since July 2023, discharged again from the hospital on 03/08/2024 Previous history of ventilator dependent respiratory failure with previous tracheostomy and PEG tube placement, with subsequent Decannulization, and PEG tube removal Acquired immunodeficiency syndrome. Adequate CD4 count and undetectable viral count. Remains on Biktarvy History of upper lobe pulmonary nodule, being monitored Chronic metabolic alkalosis secondary to hypercapnic respiratory failure Plan: The patient was seen and evaluated Labs and medications reviewed Cleared for discharge She is again educated regarding the importance of wearing her AVAPS machine nightly Informed her the insurance company may take it back if she is noncompliant Verbalizes understanding and is agreeable to the plan I have personally seen and examined the patient, performed the documentation and the assessment and plan as written. Number of minutes spent on the visit: 10 Dictation was produced using [employer] dictation software. Please excuse any grammatical, word or spelling errors.
[2024-03-14 12:24] VITALS: BP 109/74; PULSE 101; RESP 17; TEMP 98.6
--- NOTE | 2024-03-14 14:37 | P.DS ---
Providers Date of admission: 03/10/24 21:45 Expected date of discharge: 03/14/24 Attending physician: Zee Palacio MD Consults: 03/10/24 21:45 Consult Physician Routine Consulting Provider: Patti Portillo Consult Reason/Comments: COPD Do you want consulting provider notified?: Yes, Notify in am Primary care physician: Stated None Hospital Course: Discharge diagnosis: Lower extremity edema, with clear discharge, resolved Metabolic alkalosis, secondary to diuretics Sick euthyroid Chronic hypoxic respiratory failure, Severe COPD Hypotension, resolved Tobacco dependence Anxiety Nausea and vomiting Pain management Hospital Course: Patient is a is a 53-year-old female with past medical history of asthma, HIV, COPD with multiple exacerbations who was admitted a week ago, treated with steroids and discharged 3 days ago with Trilogy ventilator presented to the ED with lower extremity swelling and pain. She first noticed lower extremity edema yesterday and it has has continued to worsen since. When she was trying to elevate her legs she noticed that the blanket over her legs was wet. She reports clear discharge from her lower extremities. She also notes difficulty ambulating due to the pain and swelling in her legs. She states having experienced lower extremity swelling before for which she used to take OTC Dexiflush, but denies any prior history of any discharge from her LE. She complains of shortness of breath but mentions it has been better on the ventilator. Denies coughing, chest pain, palpitations, abdominal pain, nausea, vomiting, hemoptysis, dysuria, hematuria, hematochezia, melena, fever, chills. Vitals on admission T 97.4 F, P 85 bpm, RR 20, BP 139/96, O2 sat 99% on 3 L nasal cannula. EKG shows sinus rhythm, rate 75 bpm, QTc 354 ms. Chest x-ray shows no acute cardiopulmonary disease process. COPD changes. Venous Doppler lower extremity bilateral shows no evidence for DVT.. Labs today show WBC 11.6, hemoglobin 10.1, PT 9.9, APTT 19.2, sodium 133, bicarb 41, BUN 20, creatinine 0.29, TSH 0.302, free T4.61, proBNP 6, troponin I <0.012. In the ED she was treated with furosemide 40 mg IV, Fadi Forman and placed on BiPAP overnight. 03/12/24: Patient seen and evaluated today at bedside. No acute events overnight. She notes an improvement in the swelling as well the discharge. Echocardiogram shows 55 to 60% EF, normal LV systolic function, mild to moderate MR, moderate pulmonary hypertension, moderately dilated right ventricle and no pericardial effusion. Lower extremity ultrasound shows minimal narrowing of the left digit artery based on ratios, remaining structures appear normal. Labs today show WBC 10.67, hemoglobin 9.6, MCV 102.3, bicarb 45. 03/13/24: Patient seen and examined today. Patient refused to use BiPAP last night. Hemodynamically stable. Patient notes a significant improvement in the swelling on her legs and has not seen any discharge from her legs. VBG done today shows pH 7.49, pCO2 64, bicarb 49. Labs today show Hb 9.1, MCV 102.1,Na 139, bicarb 42.1. 03/14/24: Patient evaluated at bedside today. No acute events overnight. Currently on 3 L oxygen via nasal cannula and she used the BiPAP overnight. Patient feels better today. Patient will be discharged today and is given a script for Aldactone and Diamox as well as repeat TSH with T4 in 4 weeks and is advised to be compliant with medications and AVAPS. Patient is advised to follow-up with PCP in 1-2 days, pulmnologist in 1 week and vascular surgery as needed. Patient seen at bedside today and is feeling good and excited about discharge. Vital signs are reviewed and stable General: nontoxic, no distress, appears at stated age Derm: warm, dry, intact Head: atraumatic, normocephalic, symmetric Eyes: EOMI, anicteric sclera Mouth: no lip lesion, mucus membranes moist Cardiovascular: S1 S2 reg, no murmur Lungs: Diminished lung sounds Abdominal: soft, non-tender to palpataion Extremities: B/L LE: trace edema, no redness, TEDS hose Neuro: Alert, Oriented, Gross neurological examination did not reveal any focal deficits. Psych: well appearing, appropriate affect A total of 30 minutes of time were spent preparing this complex discharge summary. Patient was discharged on 03/14/24 at 1430. Attestation I have seen and examined this patient with my resident , discussed the same with the resident/ADEEL, and agree with the dictator's assessment and plan as written Dr. Yamil heath Patient Condition at Discharge: Stable Plan - Discharge Summary Discharge Rx Participant: No New Discharge Prescriptions: New acetaZOLAMIDE [Diamox] 250 mg PO DAILY 5 Days #5 tab Spironolactone [Aldactone] 25 mg PO DAILY 14 Days #14 tab ALPRAZolam [ALPRAZolam XR] 0.5 mg PO DAILY 3 Days #3 tab Continue Albuterol Sulfate [Albuterol Sulfate Hfa] 2 puff INHALATION RT-Q4H PRN PRN Reason: Shortness Of Breath Ipratropium-Albuterol Nebulize [Duoneb 0.5 mg-3 mg/3 ml Soln] 3 ml INHALATION RT-Q4H PRN PRN Reason: Shortness Of Breath Famotidine [Pepcid] 20 mg PO BID Ibuprofen [Motrin Ib] 200 - 400 mg PO Q6H PRN PRN Reason: Pain Or Fever > 100.5 Fluticasone Propionate [Flonase Allergy Relief] 1 spray EA NOSTRIL DAILY PRN PRN Reason: Congestion Fluticasone/Umeclidin/Vilanter [Trelegy Ellipta 200-62.5-25] 1 puff INHALATION RT-DAILY Nicotine 14Mg/24Hr Patch [Habitrol] 1 patch TRANSDERM DAILY Ipratropium-Albuterol Nebulize [Duoneb 0.5 mg-3 mg/3 ml Soln] 3 ml INHALATION RT-QID each atenoloL [Tenormin] 50 mg PO DAILY #30 tab Bictegrav/Emtricit/Tenofov Ala [Biktarvy 50-200-25 mg Tablet] 1 tab PO DAILY Ondansetron [Zofran] 4 mg PO BID PRN PRN Reason: Nausea Simethicone [Gas-X] 125 - 250 mg PO ACHS PRN PRN Reason: gas Mirtazapine [Remeron] 15 mg PO HS Khmawoog-Pguaspntwk-Ujiz Oint [Triple Antibiotic Ointment] 1 applic TOPICAL BID PRN each PRN Reason: Skin Irritation Acetaminophen Tab [Tylenol] 650 mg PO Q4HR PRN tab PRN Reason: Mild Pain Or Fever > 100.5 HYDROcodone/APAP 5-325MG [[place] 5-325] 1 tab PO Q6HR PRN PRN Reason: Pain Discontinued ALPRAZolam [Xanax] 0.5 - 1 mg PO Q8H PRN PRN Reason: Anxiety hydroCHLOROthiazide 12.5 mg PO DAILY Losartan [Cozaar] 50 mg PO BID Discharge Medication List Albuterol Sulfate [Albuterol Sulfate Hfa] 2 puff INHALATION RT-Q4H PRN 03/14/22 [History] Bictegrav/Emtricit/Tenofov Ala [Biktarvy 50-200-25 mg Tablet] 1 tab PO DAILY 08/10/23 [History] Ipratropium-Albuterol Nebulize [Duoneb 0.5 mg-3 mg/3 ml Soln] 3 ml INHALATION RT-Q4H PRN 08/10/23 [History] Famotidine [Pepcid] 20 mg PO BID 09/30/23 [History] Ondansetron [Zofran] 4 mg PO BID PRN 11/05/23 [History] Fluticasone Propionate [Flonase Allergy Relief] 1 spray EA NOSTRIL DAILY PRN 11/27/23 [History] Ibuprofen [Motrin Ib] 200 - 400 mg PO Q6H PRN 11/27/23 [History] Simethicone [Gas-X] 125 - 250 mg PO ACHS PRN 11/27/23 [History] Fluticasone/Umeclidin/Vilanter [Trelegy Ellipta 200-62.5-25] 1 puff INHALATION RT-DAILY 01/04/24 [History] Mirtazapine [Remeron] 15 mg PO HS 01/04/24 [History] Ipratropium-Albuterol Nebulize [Duoneb 0.5 mg-3 mg/3 ml Soln] 3 ml INHALATION RT-QID each 01/21/24 [Rx] Nicotine 14Mg/24Hr Patch [Habitrol] 1 patch TRANSDERM DAILY 01/21/24 [History] Ynbnbqui-Rwqmoetllj-Obrs Oint [Triple Antibiotic Ointment] 1 applic TOPICAL BID PRN each 02/14/24 [Rx] atenoloL [Tenormin] 50 mg PO DAILY #30 tab 02/14/24 [Rx] Acetaminophen Tab [Tylenol] 650 mg PO Q4HR PRN tab 02/21/24 [Rx] HYDROcodone/APAP 5-325MG [[place] 5-325] 1 tab PO Q6HR PRN 03/03/24 [History] ALPRAZolam [ALPRAZolam XR] 0.5 mg PO DAILY 3 Days #3 tab 03/14/24 [Rx] Spironolactone [Aldactone] 25 mg PO DAILY 14 Days #14 tab 03/14/24 [Rx] acetaZOLAMIDE [Diamox] 250 mg PO DAILY 5 Days #5 tab 03/14/24 [Rx] Follow up Appointment(s)/Referral(s): Noel Castillo DO [Doctor of Osteopathic Medicine] - As Needed (For varicose vein evaluation if needed) Davin Pro DO [Doctor of Osteopathic Medicine] - 03/25/24 2:00 pm None,Stated [Primary Care Provider] - 1-2 days Ambulatory/Diagnostic Orders: T4, Free (Free Thyroxine) [LAB.AMB] Time Frame: 4 Weeks, Location: None Selected TSH, 3rd Generation [LAB.AMB] Time Frame: 4 Weeks, Location: None Selected Patient Instructions/Handouts: Acetazolamide (By mouth), Spironolactone (By mouth), Alprazolam (By mouth) Activity/Diet/Wound Care/Special Instructions: [facility] care Discharge Disposition: HOME WITH HOME HEALTH SERVICES
== END 2024-03-14 17:14 | disposition home health service (06) | DRG 315 ==
LOC: EC 18:41 → 4SSUR 21:45 → OBSVTOIN 21:45 → 5NMEDONC 22:38
PROVIDERS: ADMIT Internal Medicine; ATTEND Internal Medicine
DX: I27.81 Cor pulmonale (chronic) (principal); B20 Human immunodeficiency virus [HIV] disease; J96.11 Chronic respiratory failure with hypoxia; E87.3 Alkalosis; J96.12 Chronic respiratory failure with hypercapnia; E07.81 Sick-euthyroid syndrome; I83.93 Asymptomatic varicose veins of bilateral lower extremities; F32.A Depression, unspecified; F41.0 Panic disorder [episodic paroxysmal anxiety]; I10 Essential (primary) hypertension; I27.20 Pulmonary hypertension, unspecified; F17.210 Nicotine dependence, cigarettes, uncomplicated; T50.2X5A Adverse effect of carbonic-anhydrase inhibitors, benzothiadiazides and other diuretics, initial encounter; J44.89 Other specified chronic obstructive pulmonary disease; Z79.52 Long term (current) use of systemic steroids; Z79.899 Other long term (current) drug therapy; Z86.73 Personal history of transient ischemic attack (TIA), and cerebral infarction without residual deficits; Z99.81 Dependence on supplemental oxygen
CPT/HCPCS: 36415; 71046; 80048; 80053; 82803; 83735; 83880; 84439; 84443; 84484; 85025; 85027; 85610; 85730; 93005; 93306; 93922; 93970; 94640; 94760; 96374; 99285

== ENCOUNTER 2024-03-18 17:09 | Emergency (ER) | payer MEDICARE, OTHER ==
[2024-03-18 17:19] VITALS: TEMP 98.1
--- NOTE | 2024-03-18 17:21 | ED ---
SOB HPI - General Chief Complaint: Shortness of Breath Stated Complaint: SOB Time Seen by Provider: 03/18/24 17:12 Source: patient, EMS Mode of arrival: EMS Limitations: no limitations - History of Present Illness Initial Comments: 53-year-old female with past medical history of COPD on 2 L home O2 who presents emergency department with shortness of breath. Patient states that she has been short of breath for the past day. She has anxiety and takes a Xanax. States that when she was discharged home she was only given a short prescription and is unable to get into her primary care until . She states that without her Xanax and makes her very anxious and it makes it difficult to breathe. She has been using her breathing treatments as they are instructed. She denies fevers chills or cough. No chest pain. Patient recently admitted with fluid retention and states this is markedly improved. Patient feels as if she gets a dose of her Xanax that she will feel better. She denies any additional symptoms to include back pain, headache, nausea, vomiting. No changes in her bowel or bladder habits. No other alleviating, precipitating modifying factors - Related Data Home Medications Medication Instructions Recorded Confirmed Albuterol Sulfate [Albuterol 2 puff INHALATION RT-Q4H PRN 03/14/22 03/11/24 Sulfate Hfa] Bictegrav/Emtricit/Tenofov Ala 1 tab PO DAILY 08/10/23 03/11/24 [Biktarvy 50-200-25 mg Tablet] Ipratropium-Albuterol Nebulize 3 ml INHALATION RT-Q4H PRN 08/10/23 03/11/24 [Duoneb 0.5 mg-3 mg/3 ml Soln] Famotidine [Pepcid] 20 mg PO BID 09/30/23 03/11/24 Ondansetron [Zofran] 4 mg PO BID PRN 11/05/23 03/11/24 Fluticasone Propionate [Flonase 1 spray EA NOSTRIL DAILY PRN 11/27/23 03/11/24 Allergy Relief] Ibuprofen [Motrin Ib] 200 - 400 mg PO Q6H PRN 11/27/23 03/11/24 Simethicone [Gas-X] 125 - 250 mg PO ACHS PRN 11/27/23 03/11/24 Fluticasone/Umeclidin/Vilanter 1 puff INHALATION RT-DAILY 01/04/24 03/11/24 [Trelegy Ellipta 200-62.5-25] Mirtazapine [Remeron] 15 mg PO HS 01/04/24 03/11/24 Nicotine 14Mg/24Hr Patch [Habitrol] 1 patch TRANSDERM DAILY 01/21/24 03/11/24 HYDROcodone/APAP 5-325MG [[place] 1 tab PO Q6HR PRN 03/03/24 03/11/24 5-325] Previous Rx's Medication Instructions Recorded Ipratropium-Albuterol Nebulize 3 ml INHALATION RT-QID each 01/21/24 [Duoneb 0.5 mg-3 mg/3 ml Soln] Jgpllcry-Wpjvywmzxc-Cfsd Oint 1 applic TOPICAL BID PRN each 02/14/24 [Triple Antibiotic Ointment] atenoloL [Tenormin] 50 mg PO DAILY #30 tab 02/14/24 Acetaminophen Tab [Tylenol] 650 mg PO Q4HR PRN tab 02/21/24 ALPRAZolam [ALPRAZolam XR] 0.5 mg PO DAILY 3 Days #3 tab 03/14/24 Spironolactone [Aldactone] 25 mg PO DAILY 14 Days #14 tab 03/14/24 acetaZOLAMIDE [Diamox] 250 mg PO DAILY 5 Days #5 tab 03/14/24 ALPRAZolam [Xanax] 0.5 mg PO BID PRN #6 tablet 03/18/24 Allergies Allergy/AdvReac Type Severity Reaction Status Date / Time Penicillins Allergy Anaphylaxis Verified 03/18/24 17:19 Review of Systems ROS Statement: Those systems with pertinent positive or pertinent negative responses have been documented in the HPI. ROS Other: All systems not noted in ROS Statement are negative. Past Medical History Past Medical History: Asthma, Blood Disorder, COPD, CVA/TIA, Hypertension Additional Past Medical History / Comment(s): HIV, anxiety History of Any Multi-Drug Resistant Organisms: None Reported Past Surgical History: No Surgical Hx Reported Additional Past Surgical History / Comment(s): peg and tracheostomy reversal 2023 Past Anesthesia/Blood Transfusion Reactions: No Reported Reaction Past Psychological History: Anxiety, Depression, Panic Disorder Smoking Status: Former smoker Past Alcohol Use History: None Reported, Occasional Past Drug Use History: None Reported - Past Family History Mother History Unknown: Yes Family Medical History: CVA/TIA Father Family Medical History: Cancer General Exam Limitations: no limitations General appearance: alert, in no apparent distress Head exam: Present: atraumatic, normocephalic, normal inspection Eye exam: Present: normal appearance, PERRL, EOMI. Absent: scleral icterus, conjunctival injection, periorbital swelling ENT exam: Present: normal exam, mucous membranes moist Neck exam: Present: normal inspection. Absent: tenderness, meningismus, lymphadenopathy Respiratory exam: Present: decreased breath sounds, other (Tachypnea). Absent: respiratory distress, wheezes, rales, rhonchi, stridor Cardiovascular Exam: Present: regular rate, normal rhythm, normal heart sounds. Absent: systolic murmur, diastolic murmur, rubs, gallop, clicks GI/Abdominal exam: Present: soft, normal bowel sounds. Absent: distended, tenderness, guarding, rebound, rigid Extremities exam: Present: normal inspection, full ROM, normal capillary refill. Absent: tenderness, pedal edema, joint swelling, calf tenderness Back exam: Present: normal inspection Neurological exam: Present: alert, oriented X3, CN II-XII intact Psychiatric exam: Present: normal affect, normal mood Skin exam: Present: warm, dry, intact, normal color. Absent: rash Course Vital Signs 03/18/24 03/18/24 03/18/24 17:14 18:42 19:35 Temperature 98.1 F Pulse Rate 84 86 95 Respiratory 24 18 16 Rate Blood Pressure 94/56 98/60 88/61 O2 Sat by Pulse 99 94 L 99 Oximetry 03/18/24 03/18/24 03/18/24 20:49 20:50 20:56 Temperature Pulse Rate 82 78 81 Respiratory 18 20 20 Rate Blood Pressure 99/68 O2 Sat by Pulse 96 Oximetry Medical Decision Making - Medical Decision Making Was pt. sent in by a medical professional or institution ([facility] [place], [employer] PRO[employer], urgent care, hospital, or residential...) When possible be specific @ -No Did you speak to anyone other than the patient for history (EMS, parent, family, police, friend...)? What history was obtained from this source @ -Spoke with EMS for history Did you review nursing and triage notes (agree or disagree)? Why? @ -I reviewed and agree with nursing and triage notes Were old charts reviewed (outside hosp., previous admission, EMS record, old EKG, old radiological studies, urgent care reports/EKG's, residential records)? Report findings @ -I reviewed recent discharge summary for lymphedema Differential Diagnosis (chest pain, altered mental status, abdominal pain women, abdominal pain men, vaginal bleeding, weakness, fever, dyspnea, syncope, headache, dizziness, GI bleed, back pain, seizure, CVA, palpatations, mental health, musculoskeletal)? @ -Differential Dyspnea: Coronary syndrome, arrhythmia, tamponade, asthma, COPD, pulmonary embolism, pneumonia, pneumothorax, pulmonary effusion, anaphylaxis, diabetic ketoacidosis, flailed chest, pulmonary contusion, diaphragmatic rupture, anemia, neuromuscular, this is not meant to be an all-inclusive list. EKG interpreted by me (3pts min.). @ -Yes and demonstrates sinus rhythm with a rate of 75. HI interval 142. QRS 77. QTc of 362. No acute ST segment elevations or depressions X-rays interpreted by me (1pt min.). @ -Yes and demonstrates no acute process CT interpreted by me (1pt min.). @ -None done U/S interpreted by me (1pt. min.). @ -None done What testing was considered but not performed or refused? (CT, X-rays, U/S, labs)? Why? @ -None What meds were considered but not given or refused? Why? @ -None Did you discuss the management of the patient with other professionals (professionals i.e. , PA, SOFTWARE PROJECT LEAD, lab, RT, psych nurse, manager social, repertoire manager, teacher, jail officer, bottle caser)? Give summary @ -No Was smoking cessation discussed for >3mins.? @ -No Was critical care preformed (if so, how long)? @ -No Were there social determinants of health that impacted care today? How? (Homelessness, low income, unemployed, alcoholism, drug addiction, transportation, low edu. Level, literacy, decrease access to med. care, usp, re hab)? @ -No Was there de-escalation of care discussed even if they declined (Discuss DNR or withdrawal of care, Hospice)? DNR status @ -No What co-morbidities impacted this encounter? (DM, HTN, Smoking, COPD, CAD, Cancer, CVA, ARF, Chemo, Hep., AIDS, mental health diagnosis, sleep apnea, morbid obesity)? @ -COPD Was patient admitted / discharged? Hospital course, mention meds given and route, prescriptions, significant lab abnormalities, going to OR and other pertinent info. @ -Upon arrival patient seen and evaluated in bed 11. Thorough history and physical exam was performed. Patient was given a dose of Ativan and reevaluated. I did conduct laboratory studies and chest x-ray. Patient feels much improved after the Ativan dosing. She will be discharged home at this time with a short prescription. States she does have a primary care appointment on . She is instructed to follow-up with his appointment for any further refills of her Xanax. Instructed to return for any new or worsening symptoms. Patient agreeable this plan was discharged to condition Undiagnosed new problem with uncertain prognosis? @ -No Drug Therapy requiring intensive monitoring for toxicity (Heparin, Nitro, Insulin, Cardizem)? @ -No Were any procedures done? @ -No Diagnosis/symptom? @ -Acute respiratory insufficiency, COPD exacerbation, acute anxiety Acute, or Chronic, or Acute on Chronic? @ -Acute on chronic Uncomplicated (without systemic symptoms) or Complicated (systemic symptoms)? @ -Complicated Side effects of treatment? @ -No Exacerbation, Progression, or Severe Exacerbation? @ -Yes Poses a threat to life or bodily function? How? (Chest pain, USA, NM, pneumonia, PE, COPD, DKA, ARF, appy, cholecystitis, CVA, Diverticulitis, Homicidal, Suicidal, threat to staff... and all critical care pts) @ -No - Lab Data Result diagrams: 03/18/24 18:25 03/18/24 18:25 Lab Results 03/18/24 03/18/24 03/18/24 Range/Units 18:25 18:25 18:25 WBC 8.7 (3.8-10.6) k/uL RBC 3.23 L (3.80-5.40) m/uL Hgb 10.4 L (11.4-16.0) gm/dL Hct 32.6 L (34.0-46.0) % MCV 100.9 H (80.0-100.0) fL MCH 32.2 (25.0-35.0) pg MCHC 31.9 (31.0-37.0) g/dL RDW 15.4 (11.5-15.5) % Plt Count 353 (150-450) k/uL MPV 6.5 Neutrophils % 63 % Lymphocytes % 23 % Monocytes % 10 % Eosinophils % 1 % Basophils % 0 % Neutrophils # 5.5 (1.3-7.7) k/uL Lymphocytes # 2.0 (1.0-4.8) k/uL Monocytes # 0.8 (0-1.0) k/uL Eosinophils # 0.1 (0-0.7) k/uL Basophils # 0.0 (0-0.2) k/uL Hypochromasia Moderate Macrocytosis Slight Sodium 133 L (137-145) mmol/L Potassium 4.9 (3.5-5.1) mmol/L Chloride 94 L (98-107) mmol/L Carbon Dioxide 38 H (22-30) mmol/L Anion Gap 1 mmol/L BUN 15 (7-17) mg/dL Creatinine 0.68 (0.52-1.04) mg/dL Est GFR (CKD-EPI)AfAm >90 (>60 ml/min/1.73 sqM) Est GFR (CKD-EPI)NonAf >90 (>60 ml/min/1.73 sqM) Glucose 90 (74-99) mg/dL Lactic Ac Sepsis Rflx Plasma Lactic Acid Jarad 2.4 H* (0.7-2.0) mmol/L Calcium 9.1 (8.4-10.2) mg/dL Total Bilirubin 0.2 (0.2-1.3) mg/dL AST 17 (14-36) U/L ALT 39 H (4-34) U/L Alkaline Phosphatase 85 (38-126) U/L Troponin I (0.000-0.034) ng/mL Total Protein 6.4 (6.3-8.2) g/dL Albumin 4.1 (3.5-5.0) g/dL 03/18/24 03/18/24 Range/Units 18:25 19:25 WBC (3.8-10.6) k/uL RBC (3.80-5.40) m/uL Hgb (11.4-16.0) gm/dL Hct (34.0-46.0) % MCV (80.0-100.0) fL MCH (25.0-35.0) pg MCHC (31.0-37.0) g/dL RDW (11.5-15.5) % Plt Count (150-450) k/uL MPV Neutrophils % % Lymphocytes % % Monocytes % % Eosinophils % % Basophils % % Neutrophils # (1.3-7.7) k/uL Lymphocytes # (1.0-4.8) k/uL Monocytes # (0-1.0) k/uL Eosinophils # (0-0.7) k/uL Basophils # (0-0.2) k/uL Hypochromasia Macrocytosis Sodium (137-145) mmol/L Potassium (3.5-5.1) mmol/L Chloride (98-107) mmol/L Carbon Dioxide (22-30) mmol/L Anion Gap mmol/L BUN (7-17) mg/dL Creatinine (0.52-1.04) mg/dL Est GFR (CKD-EPI)AfAm (>60 ml/min/1.73 sqM) Est GFR (CKD-EPI)NonAf (>60 ml/min/1.73 sqM) Glucose (74-99) mg/dL Lactic Ac Sepsis Rflx Y Plasma Lactic Acid Jarad (0.7-2.0) mmol/L Calcium (8.4-10.2) mg/dL Total Bilirubin (0.2-1.3) mg/dL AST (14-36) U/L ALT (4-34) U/L Alkaline Phosphatase (38-126) U/L Troponin I <0.012 (0.000-0.034) ng/mL Total Protein (6.3-8.2) g/dL Albumin (3.5-5.0) g/dL Disposition Clinical Impression: Acute respiratory insufficiency, COPD (chronic obstructive pulmonary disease) Disposition: HOME SELF-CARE Condition: Stable Instructions (If sedation given, give patient instructions): COPD (Chronic Obstructive Pulmonary Disease) (ED) Additional Instructions: Use the medications as prescribed. Follow-up with your primary care doctor for refills. Return for any new or worsening symptoms Prescriptions: ALPRAZolam [Xanax] 0.5 mg PO BID PRN #6 tablet PRN Reason: Anxiety Is patient prescribed a controlled substance at d/c from ED?: Yes When asked, does pt state using other controlled substances?: No If prescribed controlled substance>3 days was MAPS reviewed?: Prescribed <3 Days Referrals: Sy Steele MD [Primary Care Provider] - 1-2 days Time of Disposition: 20:33
--- NOTE | 2024-03-18 18:17 | XR ---
EXAMINATION TYPE: XR chest 2V DATE OF EXAM: 03/18/2024 6:07 PM COMPARISON: Previous chest radiograph 03/10/2024. CLINICAL INDICATION: Female, 53 years old with history of difficulty breathing; [facility] TECHNIQUE: XR chest 2V Frontal and lateral views of the chest. FINDINGS: Cardiac silhouette within normal limits for size. No acute focal consolidation. No pleural effusion. Impression pneumothorax. Lungs hyperinflated bilaterally with coarsening of the interstitial markings. No acute osseous abnorm ality. IMPRESSION: 1. No acute abnormality chest. 2. Findings suggestive of underlying COPD [facility], , 03/18/2024 6:14 PM
[2024-03-18] MEDS: LORazepam 2 MG/ML INJ IV STA (18:39)
[2024-03-18 18:40] LABS: Basophils % (A) 0 %; Eosinophils # (A) 0.1 k/uL (0-0.7); Eosinophils % (A) 1 %; HCT 32.6 % (34.0-46.0); HGB 10.4 gm/dL (11.4-16.0); Hypochromasia Moderate; Lymphocytes % (A) 23 %; MCH 32.2 pg (25.0-35.0); MCHC 31.9 g/dL (31.0-37.0); MCV 100.9 fL (80.0-100.0); Macrocytosis Slight; Mean Platelet Volume 6.5; Monocytes # (A) 0.8 k/uL (0-1.0); Monocytes % (A) 10 %; Neutrophils # (A) 5.5 k/uL (1.3-7.7); Neutrophils % (A) 63 %; Platelet Count 353 k/uL (150-450); RBC 3.23 m/uL (3.80-5.40); RDW 15.4 % (11.5-15.5); WBC 8.7 k/uL (3.8-10.6)
[2024-03-18 18:50] LABS: ALT 39 U/L (4-34); AST 17 U/L (14-36); African American GFR (CKD) >90 (>60 ml/min/1.73 sqM); Albumin 4.1 g/dL (3.5-5.0); Alkaline Phosphatase 85 U/L (38-126); Anion Gap 1 mmol/L; Blood Urea Nitrogen 15 mg/dL (7-17); Calcium 9.1 mg/dL (8.4-10.2); Carbon Dioxide 38 mmol/L (22-30); Chloride 94 mmol/L (98-107); Glucose 90 mg/dL (74-99); Non-African American GFR(CKD) >90 (>60 ml/min/1.73 sqM); Potassium 4.9 mmol/L (3.5-5.1); Sodium 133 mmol/L (137-145); Total Bilirubin 0.2 mg/dL (0.2-1.3); Total Protein 6.4 g/dL (6.3-8.2)
[2024-03-18] MEDS: IPRATROPIUM-ALBUTEROL 3 ML NEB INHALATION STA (20:49)
[2024-03-18 20:50] VITALS: BP 99/68
[2024-03-18 20:52] VITALS: RESP 20
[2024-03-18 20:56] VITALS: PULSE 81
== END 2024-03-18 21:03 | disposition home or self-care (01) ==
LOC: EC 17:09
DX: R06.89 Other abnormalities of breathing (principal); J44.1 Chronic obstructive pulmonary disease with (acute) exacerbation; Z87.891 Personal history of nicotine dependence; Z88.0 Allergy status to penicillin; Z99.81 Dependence on supplemental oxygen
CPT/HCPCS: 99285; 96374; 36415; 94640; 93005; 80053; 83605; 84484; 85025; 71046; J2060

== ENCOUNTER 2024-03-28 22:54 | Observation (INO) | payer MEDICARE, OTHER ==
--- NOTE | 2024-03-28 23:11 | ED ---
SOB HPI - General Chief Complaint: Shortness of Breath Stated Complaint: SOB Time Seen by Provider: 03/28/24 22:56 Source: patient Mode of arrival: EMS Limitations: no limitations - History of Present Illness Initial Comments: Patient is a 53-year-old woman with history of severe COPD and HIV infection who presents with complaint of worsening shortness of breath over the past 3 days. She states that things started with upper respiratory symptoms including nasal congestion, cough, and progressed to worsening shortness of breath. She phoned EMS tonight as she was continuing to get worse despite using her medicines. Patient has not noted fever or chills. Denies chest pain. Cough is for the most part nonproductive, there is occasional yellow sputum. She has not noted change in urination or bowel movements. No leg pain or swelling. MD Complaint: shortness of breath, cough Onset/Timin -: days(s) Severity scale (1-10): 0 Consistency: constant Improves With: nothing Worsens With: nothing Known History Of: COPD, HIV Associated Symptoms: cough Treatments Prior to Arrival: bronchodilator - Related Data Home Medications Medication Instructions Recorded Confirmed Albuterol Sulfate [Albuterol 2 puff INHALATION RT-Q4H PRN 03/14/22 03/11/24 Sulfate Hfa] Bictegrav/Emtricit/Tenofov Ala 1 tab PO DAILY 08/10/23 03/11/24 [Biktarvy 50-200-25 mg Tablet] Ipratropium-Albuterol Nebulize 3 ml INHALATION RT-Q4H PRN 08/10/23 03/11/24 [Duoneb 0.5 mg-3 mg/3 ml Soln] Famotidine [Pepcid] 20 mg PO BID 09/30/23 03/11/24 Ondansetron [Zofran] 4 mg PO BID PRN 11/05/23 03/11/24 Fluticasone Propionate [Flonase 1 spray EA NOSTRIL DAILY PRN 11/27/23 03/11/24 Allergy Relief] Ibuprofen [Motrin Ib] 200 - 400 mg PO Q6H PRN 11/27/23 03/11/24 Simethicone [Gas-X] 125 - 250 mg PO ACHS PRN 11/27/23 03/11/24 Fluticasone/Umeclidin/Vilanter 1 puff INHALATION RT-DAILY 01/04/24 03/11/24 [Trelegy Ellipta 200-62.5-25] Mirtazapine [Remeron] 15 mg PO HS 01/04/24 03/11/24 Nicotine 14Mg/24Hr Patch [Habitrol] 1 patch TRANSDERM DAILY 01/21/24 03/11/24 HYDROcodone/APAP 5-325MG [[place] 1 tab PO Q6HR PRN 03/03/24 03/11/24 5-325] Previous Rx's Medication Instructions Recorded Ipratropium-Albuterol Nebulize 3 ml INHALATION RT-QID each 01/21/24 [Duoneb 0.5 mg-3 mg/3 ml Soln] Ncuvctse-Wxmabhfecc-Xcsm Oint 1 applic TOPICAL BID PRN each 02/14/24 [Triple Antibiotic Ointment] atenoloL [Tenormin] 50 mg PO DAILY #30 tab 02/14/24 Acetaminophen Tab [Tylenol] 650 mg PO Q4HR PRN tab 02/21/24 ALPRAZolam [ALPRAZolam XR] 0.5 mg PO DAILY 3 Days #3 tab 03/14/24 Spironolactone [Aldactone] 25 mg PO DAILY 14 Days #14 tab 03/14/24 acetaZOLAMIDE [Diamox] 250 mg PO DAILY 5 Days #5 tab 03/14/24 ALPRAZolam [Xanax] 0.5 mg PO BID PRN #6 tablet 03/18/24 Allergies Allergy/AdvReac Type Severity Reaction Status Date / Time Penicillins Allergy Anaphylaxis Verified 03/28/24 23:01 Review of Systems ROS Statement: Those systems with pertinent positive or pertinent negative responses have been documented in the HPI. ROS Other: All systems not noted in ROS Statement are negative. Constitutional: Denies: fever, chills ENT: Reports: congestion Respiratory: Reports: cough, dyspnea, wheezes. Denies: hemoptysis Cardiovascular: Denies: chest pain, palpitations, edema Gastrointestinal: Denies: abdominal pain, nausea, vomiting, diarrhea Genitourinary: Denies: dysuria, hematuria Musculoskeletal: Denies: back pain Skin: Denies: rash Neurological: Denies: headache, weakness Past Medical History Past Medical History: Asthma, Blood Disorder, COPD, CVA/TIA, Hypertension Additional Past Medical History / Comment(s): HIV, anxiety History of Any Multi-Drug Resistant Organisms: None Reported Past Surgical History: No Surgical Hx Reported Additional Past Surgical History / Comment(s): peg and tracheostomy reversal 2023 Past Anesthesia/Blood Transfusion Reactions: No Reported Reaction Past Psychological History: Anxiety, Depression, Panic Disorder Smoking Status: Former smoker Past Alcohol Use History: None Reported Past Drug Use History: None Reported - Past Family History Mother History Unknown: Yes Family Medical History: CVA/TIA Father Family Medical History: Cancer General Exam Limitations: no limitations General appearance: alert, in distress Head exam: Present: atraumatic, normocephalic Eye exam: Present: normal appearance. Absent: scleral icterus, conjunctival injection Neck exam: Present: normal inspection Respiratory exam: Present: respiratory distress, wheezes, decreased breath sounds, prolonged expiratory. Absent: rales, rhonchi, stridor, chest wall tenderness, accessory muscle use Cardiovascular Exam: Present: normal rhythm, tachycardia, normal heart sounds. Absent: systolic murmur, diastolic murmur, rubs, gallop GI/Abdominal exam: Present: soft. Absent: distended, tenderness, guarding, rebound, rigid, mass Extremities exam: Present: normal inspection, normal capillary refill. Absent: pedal edema, calf tenderness Back exam: Present: normal inspection. Absent: CVA tenderness (R), CVA tenderness (L) Neurological exam: Present: alert Skin exam: Present: warm, dry, intact, normal color. Absent: rash Course Vital Signs 03/28/24 03/28/24 03/28/24 22:56 22:58 23:18 Temperature 97.6 F Pulse Rate 108 H 96 Respiratory 30 H Rate Blood Pressure 118/90 O2 Sat by Pulse 97 Oximetry Fraction of 40 Inspired Oxygen (FIO2) 03/28/24 03/29/24 23:27 00:39 Temperature Pulse Rate 96 94 Respiratory 22 Rate Blood Pressure 96/73 O2 Sat by Pulse 98 Oximetry Fraction of Inspired Oxygen (FIO2) Medical Decision Making - Lab Data Result diagrams: 03/28/24 23:20 03/28/24 23:20 Lab Results 03/28/24 03/28/24 03/28/24 Range/Units 23:20 23:20 23:20 WBC 5.4 (3.8-10.6) k/uL RBC 3.18 L (3.80-5.40) m/uL Hgb 9.9 L (11.4-16.0) gm/dL Hct 31.6 L (34.0-46.0) % MCV 99.5 (80.0-100.0) fL MCH 31.2 (25.0-35.0) pg MCHC 31.4 (31.0-37.0) g/dL RDW 14.7 (11.5-15.5) % Plt Count 366 (150-450) k/uL MPV 6.9 Neutrophils % (Manual) 38 % Lymphocytes % (Manual) 47 % Monocytes % (Manual) 12 % Eosinophils % (Manual) 3 % Neutrophils # (Manual) 2.05 (1.3-7.7) k/uL Lymphocytes # (Manual) 2.54 (1.0-4.8) k/uL Monocytes # (Manual) 0.65 (0-1.0) k/uL Eosinophils # (Manual) 0.16 (0-0.7) k/uL Nucleated RBCs 0 (0-0) /100 WBC Manual Slide Review Performed Hypochromasia Slight Anisocytosis (manual) Present Macrocytosis Slight PT 9.8 L (10.0-12.5) sec INR 0.9 (<1.2) APTT 21.9 L (22.0-30.0) sec VBG pH (7.31-7.41) VBG pCO2 (37-51) mmHg Sodium 135 L (137-145) mmol/L Potassium 4.9 (3.5-5.1) mmol/L Chloride 86 L (98-107) mmol/L Carbon Dioxide 47 H* (22-30) mmol/L Anion Gap 2 mmol/L BUN 16 (7-17) mg/dL Creatinine 0.63 (0.52-1.04) mg/dL Est GFR (CKD-EPI)AfAm >90 (>60 ml/min/1.73 sqM) Est GFR (CKD-EPI)NonAf >90 (>60 ml/min/1.73 sqM) Glucose 111 H (74-99) mg/dL Plasma Lactic Acid Jarad (0.7-2.0) mmol/L Calcium 9.2 (8.4-10.2) mg/dL Total Bilirubin 0.3 (0.2-1.3) mg/dL AST 21 (14-36) U/L ALT 18 (4-34) U/L Alkaline Phosphatase 85 (38-126) U/L Troponin I (0.000-0.034) ng/mL NT-Pro-B Natriuret Pep 119 pg/mL Total Protein 6.8 (6.3-8.2) g/dL Albumin 4.1 (3.5-5.0) g/dL Influenza Type A (PCR) (Not Detectd) Influenza Type B (PCR) (Not Detectd) RSV (PCR) (Not Detectd) SARS-CoV-2 (PCR) (Not Detectd) 03/28/24 03/28/24 03/28/24 Range/Units 23:20 23:20 23:33 WBC (3.8-10.6) k/uL RBC (3.80-5.40) m/uL Hgb (11.4-16.0) gm/dL Hct (34.0-46.0) % MCV (80.0-100.0) fL MCH (25.0-35.0) pg MCHC (31.0-37.0) g/dL RDW (11.5-15.5) % Plt Count (150-450) k/uL MPV Neutrophils % (Manual) % Lymphocytes % (Manual) % Monocytes % (Manual) % Eosinophils % (Manual) % Neutrophils # (Manual) (1.3-7.7) k/uL Lymphocytes # (Manual) (1.0-4.8) k/uL Monocytes # (Manual) (0-1.0) k/uL Eosinophils # (Manual) (0-0.7) k/uL Nucleated RBCs (0-0) /100 WBC Manual Slide Review Hypochromasia Anisocytosis (manual) Macrocytosis PT (10.0-12.5) sec INR (<1.2) APTT (22.0-30.0) sec VBG pH (7.31-7.41) VBG pCO2 (37-51) mmHg Sodium (137-145) mmol/L Potassium (3.5-5.1) mmol/L Chloride (98-107) mmol/L Carbon Dioxide (22-30) mmol/L Anion Gap mmol/L BUN (7-17) mg/dL Creatinine (0.52-1.04) mg/dL Est GFR (CKD-EPI)AfAm (>60 ml/min/1.73 sqM) Est GFR (CKD-EPI)NonAf (>60 ml/min/1.73 sqM) Glucose (74-99) mg/dL Plasma Lactic Acid Jarad 0.9 (0.7-2.0) mmol/L Calcium (8.4-10.2) mg/dL Total Bilirubin (0.2-1.3) mg/dL AST (14-36) U/L ALT (4-34) U/L Alkaline Phosphatase (38-126) U/L Troponin I <0.012 (0.000-0.034) ng/mL NT-Pro-B Natriuret Pep pg/mL Total Protein (6.3-8.2) g/dL Albumin (3.5-5.0) g/dL Influenza Type A (PCR) Not Detected (Not Detectd) Influenza Type B (PCR) Not Detected (Not Detectd) RSV (PCR) Not Detected (Not Detectd) SARS-CoV-2 (PCR) Not Detected (Not Detectd) 03/29/24 Range/Units 00:22 WBC (3.8-10.6) k/uL RBC (3.80-5.40) m/uL Hgb (11.4-16.0) gm/dL Hct (34.0-46.0) % MCV (80.0-100.0) fL MCH (25.0-35.0) pg MCHC (31.0-37.0) g/dL RDW (11.5-15.5) % Plt Count (150-450) k/uL MPV Neutrophils % (Manual) % Lymphocytes % (Manual) % Monocytes % (Manual) % Eosinophils % (Manual) % Neutrophils # (Manual) (1.3-7.7) k/uL Lymphocytes # (Manual) (1.0-4.8) k/uL Monocytes # (Manual) (0-1.0) k/uL Eosinophils # (Manual) (0-0.7) k/uL Nucleated RBCs (0-0) /100 WBC Manual Slide Review Hypochromasia Anisocytosis (manual) Macrocytosis PT (10.0-12.5) sec INR (<1.2) APTT (22.0-30.0) sec VBG pH 7.28 L (7.31-7.41) VBG pCO2 >98 H* (37-51) mmHg Sodium (137-145) mmol/L Potassium (3.5-5.1) mmol/L Chloride (98-107) mmol/L Carbon Dioxide (22-30) mmol/L Anion Gap mmol/L BUN (7-17) mg/dL Creatinine (0.52-1.04) mg/dL Est GFR (CKD-EPI)AfAm (>60 ml/min/1.73 sqM) Est GFR (CKD-EPI)NonAf (>60 ml/min/1.73 sqM) Glucose (74-99) mg/dL Plasma Lactic Acid Jarad (0.7-2.0) mmol/L Calcium (8.4-10.2) mg/dL Total Bilirubin (0.2-1.3) mg/dL AST (14-36) U/L ALT (4-34) U/L Alkaline Phosphatase (38-126) U/L Troponin I (0.000-0.034) ng/mL NT-Pro-B Natriuret Pep pg/mL Total Protein (6.3-8.2) g/dL Albumin (3.5-5.0) g/dL Influenza Type A (PCR) (Not Detectd) Influenza Type B (PCR) (Not Detectd) RSV (PCR) (Not Detectd) SARS-CoV-2 (PCR) (Not Detectd) - EKG Data -: EKG Interpreted by [place] EKG shows normal: sinus rhythm, axis (Normal), intervals (Normal), QRS complexes (Normal), ST-T waves (Normal) Rate: normal (Rate 97 bpm) Interpretation: normal EKG Disposition Referrals: Sy Steele MD [Primary Care Provider] - 1-2 days
[2024-03-28] MEDS: IPRATROPIUM-ALBUTEROL 3 ML NEB INHALATION STA (23:16)
[2024-03-28] MEDS: predniSONE 20 MG TAB PO STA (23:27)
[2024-03-28 23:53] LABS: ALT 18 U/L (4-34); AST 21 U/L (14-36); African American GFR (CKD) >90 (>60 ml/min/1.73 sqM); Albumin 4.1 g/dL (3.5-5.0); Alkaline Phosphatase 85 U/L (38-126); Blood Urea Nitrogen 16 mg/dL (7-17); Calcium 9.2 mg/dL (8.4-10.2); Chloride 86 mmol/L (98-107); Glucose 111 mg/dL (74-99); Non-African American GFR(CKD) >90 (>60 ml/min/1.73 sqM); Potassium 4.9 mmol/L (3.5-5.1); Sodium 135 mmol/L (137-145); Total Bilirubin 0.3 mg/dL (0.2-1.3); Total Protein 6.8 g/dL (6.3-8.2)
[2024-03-28 23:59] LABS: Anion Gap 2 mmol/L
[2024-03-29 00:01] LABS: HCT 31.6 % (34.0-46.0); HGB 9.9 gm/dL (11.4-16.0); Hypochromasia Slight; MCH 31.2 pg (25.0-35.0); MCHC 31.4 g/dL (31.0-37.0); MCV 99.5 fL (80.0-100.0); Macrocytosis Slight; Mean Platelet Volume 6.9; NT-Pro-B-Type Natriuretic Pept 119 pg/mL; Platelet Count 366 k/uL (150-450); RBC 3.18 m/uL (3.80-5.40); RDW 14.7 % (11.5-15.5); WBC 5.4 k/uL (3.8-10.6)
--- NOTE | 2024-03-29 00:08 | XR ---
EXAM: XR Chest, 1 View CLINICAL HISTORY: Dyspnea TECHNIQUE: Frontal view of the chest. COMPARISON: Chest 2 views dated 03/18/2024 FINDINGS: Lungs: Previous hyperexpansion of the lungs is not a readily apparent. No focal airspace consolidation. The pulmonary vasculature demonstrates no significant radiographic abnormality. Pleural space: Trace blunting of the costophrenic margins are noted bilaterally. No large pleural effusion. No pneumothorax. Heart: Unremarkable. No cardiomegaly. Mediastinum: No significant abnormality identified. The trachea is midline. Bones/joints: Unremarkable. No acute fracture. IMPRESSION: 1. Trace blunting of the costophrenic margins are noted bilaterally, more prominent from the previous examination, suggesting small pleural effusions. No large pleural effusion. No pneumothorax. 2. No focal airspace consolidation. No radiographic evidence for florid CHF.
[2024-03-29 00:09] LABS: INR 0.9 (<1.2); Partial Thromboplastin Time 21.9 sec (22.0-30.0); Prothrombin Time 9.8 sec (10.0-12.5)
[2024-03-29 00:16] LABS: Carbon Dioxide 47 mmol/L (22-30)
[2024-03-29 00:52] LABS: Anisocytosis (M) Present; Eosinophils # (M) 0.16 k/uL (0-0.7); Lymphocytes # (M) 2.54 k/uL (1.0-4.8); Monocytes # (M) 0.65 k/uL (0-1.0); Neutrophils # (M) 2.05 k/uL (1.3-7.7); Neutrophils % (M) 38 %; Nucleated Red Blood Cells 0 /100 WBC (0-0); Total Cells Counted 100
[2024-03-29 01:01] LABS: VBG PH 7.28 (7.31-7.41)
[2024-03-29 01:03] LABS: VBG PCO2 >98 mmHg (37-51)
[2024-03-29] MEDS ORDERED: NALOXONE 0.4 MG/ML 1 ML VIAL IVP PRN (02:15)
[2024-03-29] MEDS ORDERED: ACETAMINOPHEN TAB 325 MG TAB PO PRN ×2 (02:15→17:42)
[2024-03-29] MEDS ORDERED: IPRATROPIUM-ALBUTEROL 3 ML NEB INHALATION PRN ×2 (02:15→17:42)
[2024-03-29] MEDS ORDERED: ONDANSETRON 4 MG TAB PO PRN (02:17)
[2024-03-29] MEDS: ALBUTEROL NEBULIZED 2.5 MG/3 ML INHALATION STA (02:28)
[2024-03-29] MEDS: ALPRAZolam 0.5 MG TAB PO PRN (04:48)
[2024-03-29] MEDS: HYDROcodone/APAP 5-325MG 1 EACH TAB PO PRN (04:48)
[2024-03-29] MEDS: IPRATROPIUM-ALBUTEROL 3 ML NEB INHALATION SCH ×2 (07:34→19:30)
[2024-03-29] MEDS: SYMBICORT 160-4.5 MCG INHALER INHALATION SCH (07:34)
[2024-03-29] MEDS: DOXYCYCLINE 100 MG CAP PO SCH (08:45)
[2024-03-29] MEDS: atenoloL 50 MG TAB PO SCH (08:45)
[2024-03-29] MEDS: acetaZOLAMIDE 250 MG TAB PO SCH (08:45)
[2024-03-29] MEDS: predniSONE 20 MG TAB PO SCH (08:46)
[2024-03-29] MEDS: NON FORMULARY DRUG (Bictegrav/Emtricit/Tenofov Ala [Biktarvy 50-200-25 Mg Tablet] 1 EACH T PO SCH (08:46)
[2024-03-29] MEDS: SPIRONOLACTONE 25 MG TAB PO SCH (08:46)
[2024-03-29] MEDS ORDERED: ALPRAZolam 1 MG TAB PO PRN (10:34)
[2024-03-29] MEDS ORDERED: ALBUTEROL SULFATE INHALATION PRN (17:42)
[2024-03-29] MEDS ORDERED: IBUPROFEN 400 MG TAB PO PRN (17:42)
[2024-03-29 20:40] LABS: Appearance,Urine Cloudy (Clear); Bilirubin,Urine Negative (Negative); Blood,Urine Negative (Negative); Budding Yeast,Urine Moderate /hpf; Color,Urine Light Yellow; Glucose,Urine (UA) Negative (Negative); Ketones,Urine Negative (Negative); Leukocyte Esterase,Urine Negative (Negative); Nitrite,Urine Negative (Negative); PH, Urine 8.5 (5.0-8.0); Protein,Urine Trace (Negative); RBC,Urine 2 /hpf (0-5); Specific Gravity,Urine 1.011 (1.001-1.035); Squamous Epithelial Cell,Urine 1 /hpf (0-4); Urobilinogen,Urine <2.0 mg/dL (<2.0); WBC,Urine 1 /hpf (0-5)
[2024-03-29] MEDS: FAMOTIDINE 20 MG TAB PO SCH (20:58)
[2024-03-29] MEDS: ALPRAZolam 1 MG TAB PO SCH (20:59)
[2024-03-29] MEDS: MIRTAZAPINE 15 MG TAB PO SCH (20:59)
--- NOTE | 2024-03-29 22:02 | HP ---
HISTORY AND PHYSICAL CHIEF COMPLAINT: Difficulty breathing. HISTORY OF PRESENT ILLNESS: This is another admission for this 53-year-old female with severe COPD. She presented to the emergency room in acute respiratory distress. She denies any fever, chills, hemoptysis, etc. Past medical history, family history, personal and social histories are all otherwise unremarkable and noncontributory or unchanged. PHYSICAL EXAMINATION: HEAD, EARS, EYES, NOSE, MOUTH AND THROAT: Normal. CHEST: Demonstrated poor breath sounds with scattered rales. CARDIAC: Demonstrated sinus rhythm and no murmurs or extra sounds. ABDOMEN: Soft, nontender. EXTREMITIES: Normal. NEUROLOGICAL: She is intact. ASSESSMENT: She is admitted to the hospital with diagnoses of exacerbation of chronic obstructive pulmonary disease. PLAN: 1. Bedrest. 2. Antibiotics. 3. Updrafts. 4. IV inhaled steroids. 5. Consult her Diet Assistant. ANUJA / ISAI: [id number] /
[2024-03-30] MEDS: NICOTINE 14MG/24HR PATCH TRANSDERM SCH (08:55)
[2024-03-30] MEDS: NON FORMULARY DRUG (Bictegrav/Emtricit/Tenofov Ala [Biktarvy 50-200-25 Mg Tablet] 1 EACH T PO SCH (08:57)
[2024-03-30 11:21] VITALS: BMI 21.7
--- NOTE | 2024-03-30 15:33 | P.CNPUL ---
History of Present Illness Consult date: 03/30/24 Reason for consult: dyspnea, COPD History of present illness: This is a 53-year-old female patient brought into the hospital because of worsening shortness of breath and COPD exacerbation. She is well-known to us and she has had multiple hospitalization in the past for the same. She contacted EMS as the patient was having worsening shortness of breath. She was brought into the hospital. She has a nonproductive cough. No pleurisy. No ch est pain. Chest x-ray was done in the emergency showed trace blunting of the costophrenic angles. No significant pleural effusion. No pneumothorax. No airspace disease. She is maintained on home O2 and the patient was also given a noninvasive positive pressure ventilator during her last hospitalization and this was supposed to be utilized on outpatient basis for respiratory support. She is also maintained on Trelegy Ellipta 1 puff a day and DuoNeb nebulized treatments [id number]. I believe she is still smoking. She has chronic anxiety and previous history of HIV. Most recent CD4 count on this patient is 142. No oropharyngeal candidiasis. No altered mentation. Review of Systems Eyes: denies as per HPI, denies blurred vision, denies bulging eye, denies decreased vision, denies diplopia, denies discharge, denies dry eye, denies irritation, denies itching, denies pain, denies photophobia, denies loss of peripheral vision, denies loss of vision, denies tunnel vision/blind spots Ears: deny: decreased hearing, ear discharge, earache, tinnitus Ears, nose, mouth and throat: Reports as per HPI Breasts: absent: as per HPI, change in shape, gynecomastia, masses, nipple discharge, pain, skin changes, swelling Cardiovascular: Reports decreased exercise tolerance, Reports dyspnea on exertion Respiratory: Reports cough, Reports dyspnea, Reports wheezing Gastrointestinal: Reports as per HPI Genitourinary: Reports as per HPI Menstruation: Reports as per HPI Musculoskeletal: Reports as per HPI Musculoskeletal: absent: ankle pain, ankle stiffness, ankle swelling, as per HPI, elbow pain, elbow stiffness, elbow swelling, foot pain, foot stiffness, foot swelling, hand pain, hand stiffness, hand swelling, hip pain, hip stiffness, hip swelling, knee pain, knee stiffness, knee swelling, shoulder pain, shoulder stiffness, shoulder swelling, wrist pain, wrist stiffness, wrist swelling Neurological: Reports as per HPI Psychiatric: Reports as per HPI, increased anxiety Endocrine: Reports as per HPI Hematologic/Lymphatic: Reports as per HPI Allergic/Immunologic: Reports as per HPI Past Medical History Past Medical History: Asthma, Blood Disorder, COPD, CVA/TIA, Hypertension Additional Past Medical History / Comment(s): HIV, anxiety History of Any Multi-Drug Resistant Organisms: None Reported Past Surgical History: No Surgical Hx Reported Additional Past Surgical History / Comment(s): peg and tracheostomy reversal October 2023 Past Anesthesia/Blood Transfusion Reactions: No Reported Reaction Past Psychological History: Anxiety, Depression, Panic Disorder Smoking Status: Former smoker Past Alcohol Use History: None Reported Past Drug Use History: None Reported Additional Drug Use History / Comment(s): quit july 2023 - Past Family History Mother History Unknown: Yes Family Medical History: CVA/TIA Father Family Medical History: Cancer Medications and Allergies Home Medications Medication Instructions Recorded Confirmed Type Albuterol Sulfate [Albuterol 2 puff INHALATION RT-Q4H PRN 03/14/22 03/29/24 History Sulfate Hfa] Bictegrav/Emtricit/Tenofov Ala 1 tab PO DAILY 08/10/23 03/29/24 History [Biktarvy 50-200-25 mg Tablet] Ipratropium-Albuterol Nebulize 3 ml INHALATION RT-Q4H PRN 08/10/23 03/29/24 History [Duoneb 0.5 mg-3 mg/3 ml Soln] Famotidine [Pepcid] 20 mg PO BID 09/30/23 03/29/24 History Ondansetron [Zofran] 4 mg PO BID PRN 11/05/23 03/29/24 History Fluticasone Propionate [Flonase 1 spr EA NOSTRIL DAILY PRN 11/27/23 03/29/24 History Allergy Relief] Ibuprofen [Motrin Ib] 400 mg PO Q6H PRN 11/27/23 03/29/24 History Simethicone [Gas-X] 125 - 250 mg PO ACHS PRN 11/27/23 03/29/24 History Fluticasone/Umeclidin/Vilanter 1 puff INHALATION RT-DAILY 01/04/24 03/29/24 History [Trelegy Ellipta 200-62.5-25] Mirtazapine [Remeron] 15 mg PO HS 01/04/24 03/29/24 History Ipratropium-Albuterol Nebulize 3 ml INHALATION RT-QID each 01/21/24 03/29/24 Rx [Duoneb 0.5 mg-3 mg/3 ml Soln] Nicotine 14Mg/24Hr Patch [Habitrol] 1 patch TRANSDERM DAILY 01/21/24 03/29/24 History Tuzsizce-Pttpyyasoc-Kwjr Oint 1 applic TOPICAL BID PRN each 02/14/24 03/29/24 Rx [Triple Antibiotic Ointment] atenoloL [Tenormin] 50 mg PO DAILY #30 tab 02/14/24 03/29/24 Rx Acetaminophen Tab [Tylenol] 650 mg PO Q4HR PRN tab 02/21/24 03/29/24 Rx HYDROcodone/APAP 5-325MG [Antoine 1 tab PO Q6HR PRN 03/03/24 03/29/24 History 5-325] Spironolactone [Aldactone] 25 mg PO DAILY 14 Days #14 tab 03/14/24 03/29/24 Rx ALPRAZolam [Xanax] 1 mg PO BID 03/29/24 03/29/24 History Allergies Allergy/AdvReac Type Severity Reaction Status Date / Time Penicillins Allergy Anaphylaxis Verified 03/29/24 10:26 Physical Exam Vitals: Vital Signs Temp Pulse Pulse Resp BP BP Pulse Ox 03/30/24 09:39 90 03/30/24 09:33 95 03/30/24 09:30 88 03/30/24 08:50 16 03/30/24 07:31 98.1 F 82 16 111/74 96 03/30/24 04:30 03/30/24 04:00 98.0 F 87 18 119/72 94 L 03/30/24 00:23 98.5 F 95 18 111/75 95 03/29/24 23:25 84 18 110/78 95 03/29/24 22:00 84 18 118/94 95 03/29/24 21:00 92 18 145/97 95 03/29/24 20:00 91 18 124/76 97 03/29/24 19:41 89 03/29/24 19:31 86 03/29/24 18:41 98.8 F 87 18 93 L 03/29/24 17:02 89 18 111/79 93 L 03/29/24 15:31 82 03/29/24 15:19 80 03/29/24 14:57 78 18 105/71 99 03/29/24 13:51 81 18 103/70 95 03/29/24 12:07 88 FiO2 03/30/24 09:39 03/30/24 09:33 03/30/24 09:30 03/30/24 08:50 03/30/24 07:31 03/30/24 04:30 40 03/30/24 04:00 03/30/24 00:23 03/29/24 23:25 03/29/24 22:00 03/29/24 21:00 03/29/24 20:00 03/29/24 19:41 03/29/24 19:31 03/29/24 18:41 03/29/24 17:02 03/29/24 15:31 03/29/24 15:19 03/29/24 14:57 03/29/24 13:51 03/29/24 12:07 Intake and Output 03/29/24 03/30/24 03/30/24 22:59 06:59 14:59 Intake Total 240 Balance 240 Intake: Oral 240 Other: Voiding Method Bedside Commode # Voids 1 Weight 52 kg 52 kg GENERAL EXAM: Arousable, 53-year-old female, on 4 L of oxygen nasal cannula. She is able to communicate without any major difficulties. No signs of any CO2 narcosis. HEAD: Normocephalic. EYES: Normal reaction of pupils, equal size. NOSE: Clear with pink turbinates. THROAT: No erythema or exudates. NECK: No masses, no JVD. CHEST: No chest wall deformity. LUNGS: Equal air entry with bilateral end expiratory wheeze. CVS: S1 and S2 normal with no audible murmur, regular rhythm. ABDOMEN: No hepatosplenomegaly, normal bowel sounds, no guarding or rigidity. SPINE: No scoliosis or deformity SKIN: No rashes CENTRAL NERVOUS SYSTEM: No focal deficits, tone is normal in all 4 extremities. EXTREMITIES: There is no peripheral edema. No clubbing, no cyanosis. Peripheral pulses are intact. Results - Laboratory Findings CBC and BMP: 03/28/24 23:20 03/28/24 23:20 PT/INR, D-dimer PT 9.8 sec (10.0-12.5) L 03/28/24 23:20 INR 0.9 (<1.2) 03/28/24 23:20 Abnormal lab findings: Abnormal Labs 03/28/24 03/28/24 03/28/24 23:20 23:20 23:20 RBC 3.18 L Hgb 9.9 L Hct 31.6 L PT 9.8 L APTT 21.9 L VBG pH VBG pCO2 Sodium 135 L Chloride 86 L Carbon Dioxide 47 H* Glucose 111 H Urine Appearance Urine pH Urine Protein Urine Yeast (Budding) 03/29/24 03/29/24 00:22 19:36 RBC Hgb Hct PT APTT VBG pH 7.28 L VBG pCO2 >98 H* Sodium Chloride Carbon Dioxide Glucose Urine Appearance Cloudy H Urine pH 8.5 H Urine Protein Trace H Urine Yeast (Budding) Moderate H - Diagnostic Findings Chest x-ray: image reviewed Assessment and Plan Plan: Acute on chronic shortness of breath, secondary to COPD exacerbation, currently on 4 L of oxygen by nasal cannula comfortable, no signs of any CO2 narcosis. Chest x-ray shows no acute abnormalities. Acute hypoxemic and hypercapnic respiratory failure, secondary to COPD exacerbation Ongoing tobacco use with nicotine addiction. Multiple hospital admissions, more than 10 admissions this year alone, since July 2023, discharged from the hospital on 03/11/2024 Previous history of ventilator dependent respiratory failure with previous tracheostomy and PEG tube placement, with subsequent Decannulization, and PEG tube removal. Severe/stage IV COPD, with an FEV1 that is 22% of predicted. Patient has been maintained Trelegy Ellipta, DuoNeb updrafts and the patient was also offered an IVAPS-AE mode during her most recent hospitalization Chronic hypoxemic respiratory failure, on home O2, 21/11. Acquired immunodeficiency syndrome. Adequate CD4 count is at 142 History of upper lobe pulmonary nodule, being monitored. Chronic metabolic alkalosis secondary to hypercapnic respiratory failure Plan: Continue oxygen therapy at 4 L oxygen by nasal cannula Continue steroids and start the patient on prednisone burst taper to be maintained on 10 mg of prednisone on outpatient basis IV fluid to KVO DuoNeb nebulized treatments [id number] The patient will be placed back on DuoNeb nebulized treatments [id number]. Allow the patient to use Trelegy Ellipta, from her home supply. Asked the patient to bring in her noninvasive positive pressure ventilation response from home to evaluate her compliancy [place] for anxiety Continue Biktarvy Smoking cessation counseling Long-term prognosis poor based on above-mentioned comorbidities.
--- NOTE | 2024-03-31 14:40 | P.PN ---
Subjective Progress Note Date: 03/31/24 This is a 53-year-old female patient brought into the hospital because of worsening shortness of breath and COPD exacerbation. She is well-known to us and she has had multiple hospitalization in the past for the same. She contacted EMS as the patient was having worsening shortness of breath. She was brought into the hospital. She has a nonproductive cough. No pleurisy. No chest pain. Chest x-ray was done in the emergency showed trace blunting of the costophrenic angles. No significant pleural effusion. No pneumothorax. No airspace disease. She is maintained on home O2 and the patient was also given a noninvasive positive pressure ventilator during her last hospitalization and this was supposed to be utilized on outpatient basis for respiratory support. She is also maintained on Trelegy Ellipta 1 puff a day and DuoNeb nebulized treatments [id number]. I believe she is still smoking. She has chronic anxiety and previous history of HIV. Most recent CD4 count on this patient is 142. No oropharyngeal candidiasis. No altered mentation. 03/31/2024, the patient is slightly improved compared to yesterday. No new complaints. Remains bronchospastic and wheezy. She was able to bring her home trilogy ventilator which is in a AVAPS AE device and this is set at a target tid al volume of 400. Remains on bronchodilators. Remains on prednisone burst taper. Remains on Biktarvy. Objective - Vital Signs Vital signs: Vital Signs Temp 98.3 F 03/31/24 07:40 Pulse 84 03/31/24 09:39 Resp 16 03/31/24 07:40 BP 106/66 03/31/24 07:40 Pulse Ox 100 03/31/24 09:31 FiO2 40 03/30/24 04:30 Intake & Output 03/30/24 03/31/24 03/31/24 18:59 06:59 18:59 Output Total 340 Balance -340 Weight 52 kg Output: Urine 340 Other: Voiding Method Bedside Commode Toilet Toilet # Voids 3 3 - Exam GENERAL EXAM: Arousable, 53-year-old female, on 4 L of oxygen nasal cannula. She is able to communicate without any major difficulties. No signs of any CO2 narcosis. HEAD: Normocephalic. EYES: Normal reaction of pupils, equal size. NOSE: Clear with pink turbinates. THROAT: No erythema or exudates. NECK: No masses, no JVD. CHEST: No chest wall deformity. LUNGS: Equal air entry with bilateral end expiratory wheeze. CVS: S1 and S2 normal with no audible murmur, regular rhythm. ABDOMEN: No hepatosplenomegaly, normal bowel sounds, no guarding or rigidity. SPINE: No scoliosis or deformity SKIN: No rashes CENTRAL NERVOUS SYSTEM: No focal deficits, tone is normal in all 4 extremities. EXTREMITIES: There is no peripheral edema. No clubbing, no cyanosis. Peripheral pulses are intact. - Labs CBC & Chem 7: 03/28/24 23:20 03/28/24 23:20 Assessment and Plan Plan: Acute on chronic shortness of breath, secondary to COPD exacerbation, currently on 4 L of oxygen by nasal cannula comfortable, no signs of any CO2 narcosis. Chest x-ray shows no acute abnormalities. Acute hypoxemic and hypercapnic respiratory failure, secondary to COPD exacerbation Ongoing tobacco use with nicotine addiction. Multiple hospital admissions, more than 10 admissions this year alone, since July 2023, discharged from the hospital on 03/11/2024 Previous history of ventilator dependent respiratory failure with previous tracheostomy and PEG tube placement, with subsequent Decannulization, and PEG tube removal. Severe/stage IV COPD, with an FEV1 that is 22% of predicted. Patient has been maintained Trelegy Ellipta, DuoNeb updrafts and the patient was also offered an AVAPS-AE mode during her most recent hospitalization Chronic hypoxemic respiratory failure, on home O2, 21/11. Acquired immunodeficiency syndrome. Adequate CD4 count is at 142 History of upper lobe pulmonary nodule, being monitored. Chronic metabolic alkalosis secondary to hypercapnic respiratory failure Plan: Continue same treatment Continue oxygen therapy at 4 L oxygen by nasal cannula Continue steroids and start the patient on prednisone burst taper to be maint ained on 10 mg of prednisone on outpatient basis IV fluid to KVO DuoNeb nebulized treatments [id number] The patient will be placed back on DuoNeb nebulized treatments [id number]. Allow the patient to use Trelegy Ellipta, from her home supply. With asked the patient to utilize her own AVAPS machine from home Xanax for anxiety Continue Biktarvy Smoking cessation counseling Long-term prognosis poor based on above-mentioned comorbidities.
[2024-03-31] MEDS: FLUTICASONE NASAL 50MCG/SPRAY 16GM BTL EA NOSTRIL PRN (20:51)
--- NOTE | 2024-04-01 08:34 | PN ---
PROGRESS NOTE CHIEF COMPLAINT: Acute respiratory failure. HISTORY OF PRESENT ILLNESS: This lady is doing a bit better. She is a little bit less short of breath. PHYSICAL EXAMINATION: VITAL SIGNS: Normal. She is afebrile. CHEST: Demonstrates wheezes, rales, and rhonchi, but improved over yesterday. CARDIAC: Exam is normal. ABDOMEN: Soft, nontender. IMPRESSION: Exacerbation of chronic obstructive pulmonary disease. PLAN: 1. Continue on current program. 2. She will be instructed on how to use her CPAP before she is discharged. MMODL / IJN: [id number] /
--- NOTE | 2024-04-01 12:04 | PN ---
PROGRESS NOTE DATE OF SERVICE: 03/31/2024 CHIEF COMPLAINT: Exacerbation of COPD. HISTORY OF PRESENT ILLNESS: This lady is doing better. PHYSICAL EXAMINATION: LUNGS: Breath sounds are diminished, but they are improved. She has few rhonchi and few rales. CARDIAC: Normal. IMPRESSION: Exacerbation of chronic obstructive pulmonary disease. PLAN: Continue with inpatient management. She may be able to go home tomorrow. MMODL / IJN: [id number] /
[2024-04-01] MEDS ORDERED: IBUPROFEN 400 MG TAB PO PRN (12:12)
[2024-04-01] MEDS ORDERED: ACETAMINOPHEN TAB 325 MG TAB PO PRN (12:13)
--- NOTE | 2024-04-01 12:28 | PN ---
PROGRESS NOTE DATE OF SERVICE: 04/01/2024 CHIEF COMPLAINT: COPD. HISTORY OF PRESENT ILLNESS: This lady is doing slightly better. PHYSICAL EXAMINATION: LUNGS: Breath sounds are slightly better everyday, but they are diminished. CARDIAC: Normal. ABDOMEN: Soft, nontender. IMPRESSION: Exacerbation of chronic obstructive pulmonary disease. PLAN: Probably home in the next few days. MMODL / IJN: [id number] /
--- NOTE | 2024-04-01 15:17 | P.PN ---
Subjective Progress Note Date: 04/01/24 This is a 53-year-old female patient brought into the hospital because of worsening shortness of breath and COPD exacerbation. She is well-known to us and she has had multiple hospitalization in the past for the same. She contacted EMS as the patient was having worsening shortness of breath. She was brought into the hospital. She has a nonproductive cough. No pleurisy. No chest pain. Chest x-ray was done in the emergency showed trace blunting of the costophrenic angles. No significant pleural effusion. No pneumothorax. No airspace disease. She is maintained on home O2 and the patient was also given a noninvasive positive pressure ventilator during her last hospitalization and this was supposed to be utilized on outpatient basis for respiratory support. She is also maintained on Trelegy Ellipta 1 puff a day and DuoNeb nebulized treatments [id number]. I believe she is still smoking. She has chronic anxiety and previous history of HIV. Most recent CD4 count on this patient is 142. No oropharyngeal candidiasis. No altered mentation. 03/31/2024, the patient is slightly improved compared to yesterday. No new complaints. Remains bronchospastic and wheezy. She was able to bring her home trilogy ventilator which is in a AVAPS AE device and this is set at a target tidal volume of 400. Remains on bronchodilators. Remains on prednisone burst taper. Remains on Biktarvy. The patient is seen today April 01, 2024 in follow-up on the regular medical floor. She is currently resting comfortably in bed. Maintaining O2 saturations in the 90s on 3 L/min per nasal cannula. She is continued on DuoNeb and elations, Symbicort, prednisone taper. Antibiotics in the form of doxycycline. She remains on her home Biktarvy. NicoDerm patch in place. Objective - Vital Signs Vital signs: Vital Signs Temp 97.8 F 04/01/24 13:21 Pulse 85 04/01/24 13:21 Resp 19 04/01/24 13:21 BP 99/67 04/01/24 13:21 Pulse Ox 96 04/01/24 13:21 FiO2 40 04/01/24 08:54 Intake & Output 03/31/24 04/01/24 04/01/24 18:59 06:59 18:59 Other: Voiding Method Toilet Toilet Toilet # Voids 4 - Exam GENERAL EXAM: Alert, 53-year-old female, on 4 L nasal cannula, comfortable in no apparent distress. HEAD: Normocephalic. EYES: Normal reaction of pupils, equal size. NOSE: Clear with pink turbinates. THROAT: No erythema or exudates. NECK: No masses, no JVD. CHEST: No chest wall deformity. LUNGS: Equal air entry with no crackles, wheeze, rhonchi or dullness. CVS: S1 and S2 normal with no audible murmur, regular rhythm. ABDOMEN: No hepatosplenomegaly, normal bowel sounds, no guarding or rigidity. SPINE: No scoliosis or deformity SKIN: No rashes CENTRAL NERVOUS SYSTEM: No focal deficits, tone is normal in all 4 extremities. EXTREMITIES: There is no peripheral edema. No clubbing, no cyanosis. Peripheral pulses are intact. - Labs CBC & Chem 7: 03/28/24 23:20 03/28/24 23:20 Assessment and Plan Assessment: Acute on chronic shortness of breath, secondary to COPD exacerbation, currently on 3 L of oxygen by nasal cannula comfortable, no signs of any CO2 narcosis. Chest x-ray shows no acute abnormalities. Acute hypoxemic and hypercapnic respiratory failure, secondary to COPD exacerbation Ongoing tobacco use with nicotine addiction Multiple hospital admissions, more than 10 admissions this year alone, since July 2023, discharged from the hospital on 03/11/2024 Previous history of ventilator dependent respiratory failure with previous tracheostomy and PEG tube placement, with subsequent Decannulization, and PEG tube removal Severe/stage IV COPD, with an FEV1 that is 22% of predicted. Patient has been maintained [facility] and the patient was also offered an AVAPS-AE mode during her most recent hospitalization Chronic hypoxemic respiratory failure, on home O2, 21/11 Acquired immunodeficiency syndrome. Maintained on Biktarvy History of upper lobe pulmonary nodule, being monitored. Chronic metabolic alkalosis secondary to hypercapnic respiratory failure Plan: The patient was seen and evaluated Medications reviewed The need on bronchodilators, steroids Educated regarding smoking cessation NicoDerm patch in place Empiric antibiotics in the form of doxycycline Titrate down the FiO2 as tolerated We will continue to follow I have personally seen and examined the patient, performed the documentation and the assessment and plan as written. Number of minutes spent on the visit: 10 Dictation was produced using [employer] software. Please excuse any grammatical, word or spelling errors.
[2024-04-02] MEDS: Bictegrav/Emtricit/Tenofov Ala [Biktarvy 50-200-25 Mg Tablet] PO SCH (08:42)
[2024-04-02 09:04] VITALS: RESP 17
--- NOTE | 2024-04-02 13:09 | P.PN ---
Subjective Progress Note Date: 04/02/24 This is a 53-year-old female patient brought into the hospital because of worsening shortness of breath and COPD exacerbation. She is well-known to us and she has had multiple hospitalization in the past for the same. She contacted EMS as the patient was having worsening shortness of breath. She was brought into the hospital. She has a nonproductive cough. No pleurisy. No chest pain. Chest x-ray was done in the emergency showed trace blunting of the costophrenic angles. No significant pleural effusion. No pneumothorax. No airspace disease. She is maintained on home O2 and the patient was also given a noninvasive positive pressure ventilator during her last hospitalization and this was supposed to be utilized on outpatient basis for respiratory support. She is also maintained on Trelegy Ellipta 1 puff a day and DuoNeb nebulized treatments [id number]. I believe she is still smoking. She has chronic anxiety and previous history of HIV. Most recent CD4 count on this patient is 142. No oropharyngeal candidiasis. No altered mentation. 03/31/2024, the patient is slightly improved compared to yesterday. No new complaints. Remains bronchospastic and wheezy. She was able to bring her home trilogy ventilator which is in a AVAPS AE device and this is set at a target tidal volume of 400. Remains on bronchodilators. Remains on prednisone burst taper. Remains on Biktarvy. The patient is seen today April 01, 2024 in follow-up on the regular medical floor. She is currently resting comfortably in bed. Maintaining O2 saturations in the 90s on 3 L/min per nasal cannula. She is continued on DuoNeb and elations, Symbicort, prednisone taper. Antibiotics in the form of doxycycline. She remains on her home Biktarvy. NicoDerm patch in place. The patient is seen today April 02, 2024 in follow-up on the regular medical floor. She is awake and alert in no acute distress. Sitting up in bed. Denies any shortness of breath, cough or congestion. Maintaining good O2 saturations in the 90s on 3 L/min per nasal cannula. She does have her home AVAPS device at the bedside for evenings. No new labs today. She is continued on DuoNeb inhalations, Symbicort, prednisone taper. NicoDerm patch in place. Antibiotics in the form of doxycycline. She remains on her home Biktarvy. Objective - Vital Signs Vital signs: Vital Signs Temp 98.0 F 04/02/24 07:01 Pulse 76 04/02/24 12:06 Resp 17 04/02/24 09:07 BP 108/70 04/02/24 07:01 Pulse Ox 100 04/02/24 07:01 FiO2 40 04/02/24 02:41 Intake & Output 04/01/24 04/02/24 04/02/24 18:59 06:59 18:59 Intake Total 240 Balance 240 Intake: Oral 240 Other: Voiding Method Toilet Toilet Toilet # Voids 3 3 - Exam GENERAL EXAM: Alert, pleasant 53-year-old female, sitting up in bed, on 4 L nasal cannula, in no apparent distress. HEAD: Normocephalic. EYES: Normal reaction of pupils, equal size. NOSE: Clear with pink turbinates. THROAT: No erythema or exudates. NECK: No masses, no JVD. CHEST: No chest wall deformity. LUNGS: Equal air entry with no crackles, wheeze, rhonchi or dullness. CVS: S1 and S2 normal with no audible murmur, regular rhythm. ABDOMEN: No hepatosplenomegaly, normal bowel sounds, no guarding or rigidity. SPINE: No scoliosis or deformity SKIN: No rashes CENTRAL NERVOUS SYSTEM: No focal deficits, tone is normal in all 4 extremities. EXTREMITIES: There is no peripheral edema. No clubbing, no cyanosis. Peripheral pulses are intact. - Labs CBC & Chem 7: 03/28/24 23:20 03/28/24 23:20 Assessment and Plan Assessment: Acute on chronic shortness of breath, secondary to COPD exacerbation, currently on 3 L of oxygen by nasal cannula comfortable, no signs of any CO2 narcosis. Chest x-ray shows no acute abnormalities Acute hypoxemic and hypercapnic respiratory failure, secondary to COPD exacerbation Ongoing tobacco use with nicotine addiction Multiple hospital admissions, more than 10 admissions this year alone, since July 2023, discharged from the hospital on 03/11/2024 Previous history of ventilator dependent respiratory failure with previous tracheostomy and PEG tube placement, with subsequent Decannulization, and PEG tube removal Severe/stage IV COPD, with an FEV1 that is 22% of predicted. Maintained Trelegy Ellipta, DuoNeb updrafts and has an AVAPS-AE mode during her most recent hospitalization Chronic hypoxemic respiratory failure, on home O2, 21/11 Acquired immunodeficiency syndrome. Maintained on Biktarvy History of upper lobe pulmonary nodule, being monitored. Chronic metabolic alkalosis secondary to hypercapnic respiratory failure Plan: The patient was seen and evaluated Medications reviewed Educated regarding smoking cessation NicoDerm patch in place Educated regarding the importance of medical compliance Cleared for discharge Continue her home oxygen, pulmonary medications Complete a prednisone taper Follow-up in the office in 1 week This patient was seen independently by the pulmonary nurse practitioner addressing pulmonary issues I have personally seen and examined the patient, performed the documentation and the assessment and plan as written. Number of minutes spent on the visit: 23 Dictation was produced using [employer] dictation software. Please excuse any grammatical, word or spelling errors.
[2024-04-02 14:30] VITALS: BP 136/96; PULSE 82; TEMP 98.3
[2024-04-03] MEDS ORDERED: methylPREDNISolone 4 MG TAB TAPER PO SCH (09:00)
--- NOTE | 2024-04-04 07:26 | DS ---
DISCHARGE SUMMARY CHIEF COMPLAINT: Difficulty breathing. HISTORY OF PRESENT ILLNESS AND PHYSICAL EXAMINATION: Details of this lady's history and physical can be found in the initial workup. LABORATORY STUDIES: While she was in the hospital, she had laboratory studies, details of which can be found in the laboratory section of her chart. COURSE IN THE HOSPITAL: After admission, she was placed on bedrest, started on intravenous fluids, IV and inhaled steroids and updrafts. She was also seen by Pulmonology. She is slowly improved and was doing well. It was felt that she could be discharged on the , and she will go home on her usual activity, diet, and medication, and she will be on oral steroids. FINAL DIAGNOSIS: Exacerbation of chronic obstructive pulmonary disease. OPERATIONS: None. CONSULTATIONS: Pulmonology. She is improved. ANUJA / ISAI: [id number] /
== END 2024-04-02 15:22 | disposition home or self-care (01) ==
LOC: EC 22:54 → 3SCARD 03-29 02:17 → 4SSUR 03-29 12:48
PROVIDERS: ADMIT Family Medicine; ATTEND Family Medicine
DX: J44.1 Chronic obstructive pulmonary disease with (acute) exacerbation (principal); J96.21 Acute and chronic respiratory failure with hypoxia; J96.22 Acute and chronic respiratory failure with hypercapnia; B20 Human immunodeficiency virus [HIV] disease; I10 Essential (primary) hypertension; F32.A Depression, unspecified; F41.0 Panic disorder [episodic paroxysmal anxiety]; R91.1 Solitary pulmonary nodule; E87.3 Alkalosis; F17.200 Nicotine dependence, unspecified, uncomplicated; Z86.73 Personal history of transient ischemic attack (TIA), and cerebral infarction without residual deficits; Z99.11 Dependence on respirator [ventilator] status; Z99.81 Dependence on supplemental oxygen; Z79.51 Long term (current) use of inhaled steroids; Z79.899 Other long term (current) drug therapy; Z88.0 Allergy status to penicillin
CPT/HCPCS: 99285; 36415; 94660 ×4; 94640 ×10; 94760 ×3; 93005; 83880; 80053; 82803; 83605; 84484; 85025; 85610; 85730; 81001; 87636; 71045; G0378 ×6; S4990 ×4; J7512 ×5

== ENCOUNTER 2024-04-03 01:51 | Emergency (ER) | payer MEDICARE, OTHER ==
[2024-04-03 01:57] VITALS: TEMP 97.2
[2024-04-03] MEDS: IPRATROPIUM-ALBUTEROL 3 ML NEB INHALATION STA (02:09)
--- NOTE | 2024-04-03 02:12 | ED ---
SOB HPI - General Chief Complaint: Shortness of Breath Stated Complaint: TK Time Seen by Provider: 04/03/24 01:59 Source: patient, EMS, RN notes reviewed Mode of arrival: EMS Limitations: no limitations - History of Present Illness Initial Comments: This is a 53-year-old female who presents to the emergency department for shortness of breath and anxiety. Patient has a history of anxiety and severe COPD maintained on home oxygen therapy. She was just discharged from the hospital yesterday and states that she has been unable to get her Xanax. She w as told that she could not get it filled until around 9 AM today. Around 5 PM last evening she started to get very anxious again due to not having her Xanax. This in turn caused her breathing to worsen, prompting her to call EMS. Believes that if she can get her anxiety under control her breathing will start to improve as well. She has a follow-up appointment with Dr. Steele on 04/04. States that she will get a new longer-term prescription for her Xanax at that time as well. MD Complaint: shortness of breath - Related Data Home Medications Medication Instructions Recorded Confirmed Albuterol Sulfate [Albuterol 2 puff INHALATION RT-Q4H PRN 03/14/22 03/29/24 Sulfate Hfa] Bictegrav/Emtricit/Tenofov Ala 1 tab PO DAILY 08/10/23 03/29/24 [Biktarvy 50-200-25 mg Tablet] Ipratropium-Albuterol Nebulize 3 ml INHALATION RT-Q4H PRN 08/10/23 03/29/24 [Duoneb 0.5 mg-3 mg/3 ml Soln] Famotidine [Pepcid] 20 mg PO BID 09/30/23 03/29/24 Ondansetron [Zofran] 4 mg PO BID PRN 11/05/23 03/29/24 Fluticasone Propionate [Flonase 1 spr EA NOSTRIL DAILY PRN 11/27/23 03/29/24 Allergy Relief] Ibuprofen [Motrin Ib] 400 mg PO Q6H PRN 11/27/23 03/29/24 Simethicone [Gas-X] 125 - 250 mg PO ACHS PRN 11/27/23 03/29/24 Fluticasone/Umeclidin/Vilanter 1 puff INHALATION RT-DAILY 01/04/24 03/29/24 [Trelegy Ellipta 200-62.5-25] Mirtazapine [Remeron] 15 mg PO HS 01/04/24 03/29/24 Nicotine 14Mg/24Hr Patch [Habitrol] 1 patch TRANSDERM DAILY 01/21/24 03/29/24 HYDROcodone/APAP 5-325MG [[place] 1 tab PO Q6HR PRN 03/03/24 03/29/24 5-325] ALPRAZolam [Xanax] 1 mg PO BID 03/29/24 03/29/24 Previous Rx's Medication Instructions Recorded Ipratropium-Albuterol Nebulize 3 ml INHALATION RT-QID each 01/21/24 [Duoneb 0.5 mg-3 mg/3 ml Soln] Yrzqbyzu-Snilvnnhpq-Fhrt Oint 1 applic TOPICAL BID PRN each 02/14/24 [Triple Antibiotic Ointment] atenoloL [Tenormin] 50 mg PO DAILY #30 tab 02/14/24 Acetaminophen Tab [Tylenol] 650 mg PO Q4HR PRN tab 02/21/24 Spironolactone [Aldactone] 25 mg PO DAILY 14 Days #14 tab 03/14/24 Doxycycline [Vibramycin] 100 mg PO BID #20 cap 04/02/24 methylPREDNISolone Dose Pack 24 mg PO DAILY #1 tab 04/02/24 [Medrol Dose Pack] Allergies Allergy/AdvReac Type Severity Reaction Status Date / Time Penicillins Allergy Anaphylaxis Verified 04/03/24 01:57 Review of Systems ROS Statement: Those systems with pertinent positive or pertinent negative responses have been documented in the HPI. ROS Other: All systems not noted in ROS Statement are negative. Past Medical History Past Medical History: Asthma, Blood Disorder, COPD, CVA/TIA, Hypertension Additional Past Medical History / Comment(s): HIV, anxiety History of Any Multi-Drug Resistant Organisms: None Reported Past Surgical History: No Surgical Hx Reported Additional Past Surgical History / Comment(s): peg and tracheostomy reversal October 2023 Past Anesthesia/Blood Transfusion Reactions: No Reported Reaction Past Psychological History: Anxiety, Depression, Panic Disorder Smoking Status: Former smoker Past Alcohol Use History: None Reported Past Drug Use History: None Reported - Past Family History Mother History Unknown: Yes Family Medical History: CVA/TIA Father Family Medical History: Cancer General Exam Limitations: no limitations General appearance: alert, anxious Head exam: Present: atraumatic, normocephalic, normal inspection Respiratory exam: Present: wheezes, decreased breath sounds, prolonged expiratory Cardiovascular Exam: Present: regular rate, normal rhythm, normal heart sounds. Absent: systolic murmur, diastolic murmur, rubs, gallop, clicks Neurological exam: Present: alert, oriented X3, CN II-XII intact Psychiatric exam: Present: normal affect, normal mood Skin exam: Present: warm, dry, intact, normal color. Absent: rash Course Vital Signs 04/03/24 04/03/24 04/03/24 01:54 02:07 02:09 Temperature 97.2 F L Pulse Rate 77 74 Respiratory 25 H 25 H Rate Blood Pressure 146/63 O2 Sat by Pulse 99 Oximetry 04/03/24 04/03/24 02:17 02:36 Temperature Pulse Rate 80 73 Respiratory 24 Rate Blood Pressure 132/75 O2 Sat by Pulse 99 Oximetry Medical Decision Making - Medical Decision Making This is a 53 year old female who presents to the emergency department for shortness of breath and anxiety. Was pt. sent in by a medical professional or institution? @ -No Did you speak to anyone other than the patient for history? @ -No Did you review nursing and triage notes? @ -Yes, and I agree, it is accurate with regards to the patient's symptoms. Were old charts reviewed? @ -No Differential Diagnosis? @ -Differential Dyspnea: Coronary syndrome, arrhythmia, tamponade, asthma, COPD, pulmonary embolism, pneumonia, pneumothorax, pulmonary effusion, anaphylaxis, diabetic ketoacidosis, flailed chest, pulmonary contusion, diaphragmatic rupture, anemia, neurom uscular, this is not meant to be an all-inclusive list. EKG interpreted by me (3pts min.)? @ -EKG interpreted by me demonstrating the following: Sinus rhythm. Ventricular rate 78 bpm, AR interval 160 ms, QRS duration 87 ms, QTc 382 ms. X-rays interpreted by me (1pt min.)? @ -Chest x-ray obtained, my interpretation identifies no localized consol idations or infiltrates. CT interpreted by me (1pt min.)? @ -Not obtained not obtained U/S interpreted by me (1pt. min.)? @ -Not obtained What testing was considered but not performed? (CT, X-rays, U/S, labs)? Why? @ -None What meds were considered but not given? Why? @ -None Did you discuss the management of the patient with other professionals? @ -No Did you reconcile home meds? @ -No Was smoking cessation discussed for >3mins.? @ -No Was critical care preformed (if so, how long)? @ -No Were there social determinants of health that impacted care today? How? (Homelessness, low income, unemployed, alcoholism, drug addiction, transportation, low edu. Level, literacy, decrease access to med. care, skilled nursing, rehab)? @ -No Was there de-escalation of care discussed even if they declined? (Discuss DNR or withdrawal of care, Hospice)? @ -No What co-morbidities impacted this encounter? (DM, HTN, Smoking, COPD, CAD, Cancer, CVA, Hep., AIDS, mental health diagnosis, sleep apnea, morbid obesity)? @ -COPD, anxiety Was patient admitted / discharged? @ -Discharged. Lab work relatively unremarkable. Chest x-ray reveals no acute process. She was given a DuoNeb breathing treatment and her dose of Xanax on arrival. States that she felt much better after receiving the Xanax and was able to settle herself down. States that essentially all she needed was the Xanax and she now feels much better and is comfortable with being discharged home. She was sent home with another tablet of Xanax to get her through the morning if needed. She will refill her prescription this morning and follow-up with Dr. Steele as scheduled on 04/04. Patient discharged home in stable condition. Case discussed with ED attending Dr. Solitario. Return precautions reviewed in depth, the patient is instructed to return to the emergency department with any new, worsening, or concerning symptoms. Patient verbalized understanding. Undiagnosed new problem with uncertain prognosis? @ -None Drug Therapy requiring intensive monitoring for toxicity (Heparin, Nitro, Insuli n, Cardizem)? @ -None Were any procedures done? @ -None Diagnosis/symptom? @ -Anxiety, shortness of breath Acute, or Chronic, or Acute on Chronic? @ -Acute on chronic Uncomplicated (without systemic symptoms) or Complicated (systemic symptoms)? @ -Uncomplicated Side effects of treatment? @ -None Exacerbation, Progression, or Severe Exacerbation] @ -Exacerbation Poses a threat to life or bodily function? @ -Not at this time - Lab Data Result diagrams: 04/03/24 02:10 04/03/24 02:10 Lab Results 04/03/24 04/03/24 04/03/24 Range/Units 02:10 02:10 02:10 WBC 8.9 (3.8-10.6) k/uL RBC 3.22 L (3.80-5.40) m/uL Hgb 10.2 L (11.4-16.0) gm/dL Hct 31.6 L (34.0-46.0) % MCV 98.1 (80.0-100.0) fL MCH 31.5 (25.0-35.0) pg MCHC 32.2 (31.0-37.0) g/dL RDW 14.4 (11.5-15.5) % Plt Count 399 (150-450) k/uL MPV 6.8 Neutrophils % 54 % Lymphocytes % 35 % Monocytes % 7 % Eosinophils % 1 % Basophils % 1 % Neutrophils # 4.8 (1.3-7.7) k/uL Lymphocytes # 3.1 (1.0-4.8) k/uL Monocytes # 0.6 (0-1.0) k/uL Eosinophils # 0.1 (0-0.7) k/uL Basophils # 0.1 (0-0.2) k/uL Hypochromasia Slight PT 10.3 (10.0-12.5) sec INR 0.9 (<1.2) APTT 21.0 L (22.0-30.0) sec Sodium 131 L (137-145) mmol/L Potassium 3.8 (3.5-5.1) mmol/L Chloride 89 L (98-107) mmol/L Carbon Dioxide 36 H (22-30) mmol/L Anion Gap 6 mmol/L BUN 16 (7-17) mg/dL Creatinine 0.52 (0.52-1.04) mg/dL Est GFR (CKD-EPI)AfAm >90 (>60 ml/min/1.73 sqM) Est GFR (CKD-EPI)NonAf >90 (>60 ml/min/1.73 sqM) Glucose 101 H (74-99) mg/dL Plasma Lactic Acid Jarad (0.7-2.0) mmol/L Calcium 9.3 (8.4-10.2) mg/dL Magnesium 1.9 (1.6-2.3) mg/dL Total Bilirubin 0.2 (0.2-1.3) mg/dL AST 20 (14-36) U/L ALT 17 (4-34) U/L Alkaline Phosphatase 94 (38-126) U/L Troponin I (0.000-0.034) ng/mL NT-Pro-B Natriuret Pep 331 pg/mL Total Protein 6.6 (6.3-8.2) g/dL Albumin 4.2 (3.5-5.0) g/dL 04/03/24 04/03/24 Range/Units 02:10 02:10 WBC (3.8-10.6) k/uL RBC (3.80-5.40) m/uL Hgb (11.4-16.0) gm/dL Hct (34.0-46.0) % MCV (80.0-100.0) fL MCH (25.0-35.0) pg MCHC (31.0-37.0) g/dL RDW (11.5-15.5) % Plt Count (150-450) k/uL MPV Neutrophils % % Lymphocytes % % Monocytes % % Eosinophils % % Basophils % % Neutrophils # (1.3-7.7) k/uL Lymphocytes # (1.0-4.8) k/uL Monocytes # (0-1.0) k/uL Eosinophils # (0-0.7) k/uL Basophils # (0-0.2) k/uL Hypochromasia PT (10.0-12.5) sec INR (<1.2) APTT (22.0-30.0) sec Sodium (137-145) mmol/L Potassium (3.5-5.1) mmol/L Chloride (98-107) mmol/L Carbon Dioxide (22-30) mmol/L Anion Gap mmol/L BUN (7-17) mg/dL Creatinine (0.52-1.04) mg/dL Est GFR (CKD-EPI)AfAm (>60 ml/min/1.73 sqM) Est GFR (CKD-EPI)NonAf (>60 ml/min/1.73 sqM) Glucose (74-99) mg/dL Plasma Lactic Acid Jarad 1.3 (0.7-2.0) mmol/L Calcium (8.4-10.2) mg/dL Magnesium (1.6-2.3) mg/dL Total Bilirubin (0.2-1.3) mg/dL AST (14-36) U/L ALT (4-34) U/L Alkaline Phosphatase (38-126) U/L Troponin I <0.012 (0.000-0.034) ng/mL NT-Pro-B Natriuret Pep pg/mL Total Protein (6.3-8.2) g/dL Albumin (3.5-5.0) g/dL - Radiology Data Radiology results: report reviewed, image reviewed Disposition Clinical Impression: Shortness of breath, Anxiety Disposition: HOME SELF-CARE Instructions (If sedation given, give patient instructions): COPD (Chronic Obstructive Pulmonary Disease) (ED) Additional Instructions: Return to the emergency department with any new, worsening, or concerning symptoms. Follow up with your primary care provider in 1-2 days. Is patient prescribed a controlled substance at d/c from ED?: No Referrals: Sy Steele MD [Primary Care Provider] - 1-2 days Time of Disposition: 03:56
[2024-04-03] MEDS: ALPRAZolam 1 MG TAB PO STA ×2 (02:18→04:23)
[2024-04-03 02:20] LABS: Basophils # (A) 0.1 k/uL (0-0.2); Basophils % (A) 1 %; Eosinophils # (A) 0.1 k/uL (0-0.7); Eosinophils % (A) 1 %; HCT 31.6 % (34.0-46.0); HGB 10.2 gm/dL (11.4-16.0); Hypochromasia Slight; Lymphocytes # (A) 3.1 k/uL (1.0-4.8); Lymphocytes % (A) 35 %; MCH 31.5 pg (25.0-35.0); MCHC 32.2 g/dL (31.0-37.0); MCV 98.1 fL (80.0-100.0); Mean Platelet Volume 6.8; Monocytes # (A) 0.6 k/uL (0-1.0); Monocytes % (A) 7 %; Neutrophils # (A) 4.8 k/uL (1.3-7.7); Neutrophils % (A) 54 %; Platelet Count 399 k/uL (150-450); RBC 3.22 m/uL (3.80-5.40); RDW 14.4 % (11.5-15.5); WBC 8.9 k/uL (3.8-10.6)
[2024-04-03 02:32] LABS: ALT 17 U/L (4-34); AST 20 U/L (14-36); African American GFR (CKD) >90 (>60 ml/min/1.73 sqM); Albumin 4.2 g/dL (3.5-5.0); Alkaline Phosphatase 94 U/L (38-126); Blood Urea Nitrogen 16 mg/dL (7-17); Calcium 9.3 mg/dL (8.4-10.2); Chloride 89 mmol/L (98-107); Glucose 101 mg/dL (74-99); Magnesium 1.9 mg/dL (1.6-2.3); Non-African American GFR(CKD) >90 (>60 ml/min/1.73 sqM); Potassium 3.8 mmol/L (3.5-5.1); Sodium 131 mmol/L (137-145); Total Bilirubin 0.2 mg/dL (0.2-1.3); Total Protein 6.6 g/dL (6.3-8.2)
[2024-04-03 02:38] LABS: Anion Gap 6 mmol/L; Carbon Dioxide 36 mmol/L (22-30); INR 0.9 (<1.2); Prothrombin Time 10.3 sec (10.0-12.5)
[2024-04-03 02:40] LABS: NT-Pro-B-Type Natriuretic Pept 331 pg/mL
--- NOTE | 2024-04-03 04:00 | XR ---
EXAM: XR Chest, 2 Views CLINICAL HISTORY: Patient presents to EMS with c/o TK. Recently discharged for COPD exacerbation but could not get her home meds from pharmacy. Increased work of breathing noted. Use of accessory muscles noted. TECHNIQUE: Frontal and lateral views of the chest. COMPARISON: 03/18/24 FINDINGS: Lungs: Unremarkable. No consolidation. Pleural space: Unremarkable. Mediastinum: Unremarkable. Normal mediastinal contour. Bones/joints: No acute findings. IMPRESSION: No acute findings nor substantial change.
[2024-04-03 04:34] VITALS: BP 92/60; PULSE 83; RESP 20
== END 2024-04-03 04:34 | disposition home or self-care (01) ==
LOC: EC 01:51
DX: R06.02 Shortness of breath (principal); F41.9 Anxiety disorder, unspecified; J44.89 Other specified chronic obstructive pulmonary disease; Z88.0 Allergy status to penicillin; Z86.73 Personal history of transient ischemic attack (TIA), and cerebral infarction without residual deficits; Z87.891 Personal history of nicotine dependence; Z79.899 Other long term (current) drug therapy
CPT/HCPCS: 36415; 71046; 80053; 83605; 83735; 83880; 84484; 85025; 85610; 85730; 93005; 94640; 99285

== ENCOUNTER 2024-04-08 19:42 | Emergency (ER) | payer MEDICARE, OTHER ==
[2024-04-08 20:01] VITALS: TEMP 98.5
--- NOTE | 2024-04-08 20:16 | ED ---
Fall HPI - General Chief Complaint: Fall Stated Complaint: Fall- med refill Time Seen by Provider: 04/08/24 19:49 Source: patient, RN notes reviewed Mode of arrival: wheelchair Limitations: no limitations - History of Present Illness Initial Comments: 53-year-old female presents emergency department chief complaint of left-sided rib pain. Patient into a gate that stops her dog. States she has left-sided rib pain, bruising noted. No head injury loss conscious. Patient states that it is worse with movement better at rest she has chronic shortness of breath not worse than usual. Patient states she has also have an issue with her prescription for Xanax that she takes at nighttime for her BiPAP. Patient denies any neck pain no head injury no low back pain. - Related Data Home Medications Medication Instructions Recorded Confirmed Albuterol Sulfate [Albuterol 2 puff INHALATION RT-Q4H PRN 03/14/22 03/29/24 Sulfate Hfa] Bictegrav/Emtricit/Tenofov Ala 1 tab PO DAILY 08/10/23 03/29/24 [Biktarvy 50-200-25 mg Tablet] Ipratropium-Albuterol Nebulize 3 ml INHALATION RT-Q4H PRN 08/10/23 03/29/24 [Duoneb 0.5 mg-3 mg/3 ml Soln] Famotidine [Pepcid] 20 mg PO BID 09/30/23 03/29/24 Ondansetron [Zofran] 4 mg PO BID PRN 11/05/23 03/29/24 Fluticasone Propionate [Flonase 1 spr EA NOSTRIL DAILY PRN 11/27/23 03/29/24 Allergy Relief] Ibuprofen [Motrin Ib] 400 mg PO Q6H PRN 11/27/23 03/29/24 Simethicone [Gas-X] 125 - 250 mg PO ACHS PRN 11/27/23 03/29/24 Fluticasone/Umeclidin/Vilanter 1 puff INHALATION RT-DAILY 01/04/24 03/29/24 [Trelegy Ellipta 200-62.5-25] Mirtazapine [Remeron] 15 mg PO HS 01/04/24 03/29/24 Nicotine 14Mg/24Hr Patch [Habitrol] 1 patch TRANSDERM DAILY 01/21/24 03/29/24 HYDROcodone/APAP 5-325MG [[place] 1 tab PO Q6HR PRN 03/03/24 03/29/24 5-325] ALPRAZolam [Xanax] 1 mg PO BID 03/29/24 03/29/24 Previous Rx's Medication Instructions Recorded Ipratropium-Albuterol Nebulize 3 ml INHALATION RT-QID each 01/21/24 [Duoneb 0.5 mg-3 mg/3 ml Soln] Hzsjyinj-Hwhliikkxa-Osgq Oint 1 applic TOPICAL BID PRN each 02/14/24 [Triple Antibiotic Ointment] atenoloL [Tenormin] 50 mg PO DAILY #30 tab 02/14/24 Acetaminophen Tab [Tylenol] 650 mg PO Q4HR PRN tab 02/21/24 Spironolactone [Aldactone] 25 mg PO DAILY 14 Days #14 tab 03/14/24 Doxycycline [Vibramycin] 100 mg PO BID #20 cap 04/02/24 methylPREDNISolone Dose Pack 24 mg PO DAILY #1 tab 04/02/24 [Medrol Dose Pack] Allergies Allergy/AdvReac Type Severity Reaction Status Date / Time Penicillins Allergy Anaphylaxis Verified 04/08/24 19:59 Review of Systems ROS Statement: Those systems with pertinent positive or pertinent negative responses have been documented in the HPI. ROS Other: All systems not noted in ROS Statement are negative. Past Medical History Past Medical History: Asthma, Blood Disorder, COPD, CVA/TIA, Hypertension Additional Past Medical History / Comment(s): HIV, anxiety History of Any Multi-Drug Resistant Organisms: None Reported Past Surgical History: No Surgical Hx Reported Additional Past Surgical History / Comment(s): peg and tracheostomy reversal October 2023 Past Anesthesia/Blood Transfusion Reactions: No Reported Reaction Past Psychological History: Anxiety, Depression, Panic Disorder Smoking Status: Former smoker Past Alcohol Use History: None Reported Past Drug Use History: None Reported - Past Family History Mother History Unknown: Yes Family Medical History: CVA/TIA Father Family Medical History: Cancer General Exam Limitations: no limitations General appearance: alert, in no apparent distress Head exam: Present: atraumatic, normocephalic, normal inspection Eye exam: Present: normal appearance, PERRL, EOMI. Absent: scleral icterus, conjunctival injection, periorbital swelling ENT exam: Present: normal exam, mucous membranes moist Neck exam: Present: normal inspection, full ROM. Absent: tenderness, meningismus, lymphadenopathy Respiratory exam: Present: normal lung sounds bilaterally, chest wall tenderness. Absent: respiratory distress, wheezes, rales, rhonchi, stridor Cardiovascular Exam: Present: regular rate, normal rhythm, normal heart sounds. Absent: systolic murmur, diastolic murmur, rubs, gallop, clicks Course Vital Signs 04/08/24 04/08/24 04/08/24 19:56 20:37 21:10 Temperature 98.5 F Pulse Rate 68 88 88 Respiratory 22 22 20 Rate Blood Pressure 134/59 O2 Sat by Pulse 97 93 L 94 L Oximetry 04/08/24 21:35 Temperature Pulse Rate 80 Respiratory Rate Blood Pressure O2 Sat by Pulse 98 Oximetry Medical Decision Making - Medical Decision Making Was pt. sent in by a medical professional or institution (, PA, PRIVATE DUTY NURSE, urgent care, hospital, or [facility]...) When possible be specific @ -No Did you speak to anyone other than the patient for history (EMS, parent, family, police, friend...)? What history was obtained from this source @ -No Did you review nursing and triage notes (agree or disagree)? Why? @ -I reviewed and agree with nursing and triage notes Were old charts reviewed (outside hosp., previous admission, EMS record, old EKG, old radiological studies, urgent care reports/EKG's, [facility] records)? Report findings @ -No old charts were reviewed Differential Diagnosis (chest pain, altered mental status, abdominal pain women, abdominal pain men, vaginal bleeding, weakness, fever, dyspnea, syncope, headache, dizziness, GI bleed, back pain, seizure, CVA, palpatations, mental health, musculoskeletal)? @ -Fall, rib contusion, rib fracture, anxiety EKG interpreted by me (3pts min.). @ -[None X-rays interpreted by me (1pt min.). @ -X-ray rib series left with PA chest showing possible seventh rib fracture nondisplaced CT interpreted by me (1pt min.). @ -None done U/S interpreted by me (1pt. min.). @ -None done What testing was considered but not performed or refused? (CT, X-rays, U/S, labs)? Why? @ -None What meds were considered but not given or refused? Why? @ -None Did you discuss the management of the patient with other professionals (professionals i.e. , PA, PRIVATE DUTY NURSE, lab, RT, psych nurse, director social, vegetable cook, teacher, officer captain, welfare case worker)? Give summary @ -No Was smoking cessation discussed for >3mins.? @ -No Was critical care preformed (if so, how long)? @ -No Were there social determinants of health that impacted care today? How? (Homelessness, low income, unemployed, alcoholism, drug addiction, transportation, low edu. Level, literacy, decrease access to med. care, alf, rehab)? @ -No Was there de-escalation of care discussed even if they declined (Discuss DNR or withdrawal of care, Hospice)? DNR status @ -No What co-morbidities impacted this encounter? (DM, HTN, Smoking, COPD, CAD, Cancer, CVA, ARF, Chemo, Hep., AIDS, mental health diagnosis, sleep apnea, morbid obesity)? @ -Anxiety, COPD Was patient admitted / discharged? Hospital course, mention meds given and route, prescriptions, significant lab abnormalities, going to OR and other pertinent info. @ -[Discharge patient has possible nondisplaced rib fracture patient has no worsening dyspnea she will be discharged with senna spirometer patient has anxiety and patient's prescription is messed up she has an appointment tomorrow patient was given Xanax return parens discussed. Undiagnosed new problem with uncertain prognosis? @ -No Drug Therapy requiring intensive monitoring for toxicity (Heparin, Nitro, Insulin, Cardizem)? @ -No Were any procedures done? @ -No Diagnosis/symptom? @ -[Anxiety, rib fracture Acute, or Chronic, or Acute on Chronic? @ -Acute Uncomplicated (without systemic symptoms) or Complicated (systemic symptoms)? @ -Uncomplicated Side effects of treatment? @ -[No Exacerbation, Progression, or Severe Exacerbation? @ -No Poses a threat to life or bodily function? How? (Chest pain, USA, ID, pneumonia, PE, COPD, DKA, ARF, appy, cholecystitis, CVA, Diverticulitis, Homicidal, Suicidal, threat to staff... and all critical care pts) @ -Yes low likelihood rib fracture leading to pneumonia and respiratory failure Disposition Clinical Impression: Fall, Rib fracture, Anxiety Disposition: HOME SELF-CARE Condition: Stable Instructions (If sedation given, give patient instructions): Rib Fracture (ED) Additional Instructions: Continue Xanax twice daily as prescribed/directed. please return to the Emergency Department if symptoms worsen or any other concerns. Is patient prescribed a controlled substance at d/c from ED?: No Referrals: Sy Steele MD [Primary Care Provider] - 1-2 days Time of Disposition: 21:44
[2024-04-08] MEDS: ALPRAZolam 1 MG TAB PO STA ×2 (20:50→22:03)
[2024-04-08 21:11] VITALS: RESP 20
--- NOTE | 2024-04-08 21:36 | XR ---
EXAMINATION TYPE: XR ribs LT w pa chest xray DATE OF EXAM: 04/08/2024 8:29 PM COMPARISON: 04/03/2024 CLINICAL INDICATION: Female, 53 years old with history of fall; pain TECHNIQUE: XR ribs LT w pa chest xray; Frontal and oblique views of the ribs with frontal chest radio graph. FINDINGS: Cortical deformity to the left rib #7. Otherwise, No evidence of fracture. Overall, the liberty ngs are clear. The cardiac silhouette is normal in size. The remaining osseous structures are intac t. IMPRESSION: Deformity left rib #7 suspicious for nondisplaced fracture. [facility], , 04/08/2024 9:34 PM
[2024-04-08 22:12] VITALS: BP 136/84; PULSE 81
== END 2024-04-08 22:12 | disposition home or self-care (01) ==
LOC: EC 19:42
DX: S22.32XA Fracture of one rib, left side, initial encounter for closed fracture (principal); F41.9 Anxiety disorder, unspecified; Z86.73 Personal history of transient ischemic attack (TIA), and cerebral infarction without residual deficits; Z87.891 Personal history of nicotine dependence; Z88.0 Allergy status to penicillin; W18.30XA Fall on same level, unspecified, initial encounter
CPT/HCPCS: 99284

== ENCOUNTER 2024-04-13 16:49 | Inpatient (IN) | payer MEDICARE, OTHER ==
--- NOTE | 2024-04-13 17:01 | ED ---
General Adult HPI - General Stated complaint: TK Time Seen by Provider: 04/13/24 16:55 Source: patient, RN notes reviewed, old records reviewed - History of Present Illness Initial comments: This is a 53-year-old female who presents to the emergency department past medical history significant for COPD. Patient presents to the emergency department today stating her difficulty breathing is gotten worse the last couple of days and she also has quite a bit of pain from her recent rib fracture. Patient denies any fever chills or cough. Patient denies any chest pain except for the rib fractures. Patient denies abdominal pain patient has nausea vomiting diarrhea. Patient states she always has some swelling to her legs but she does not know if she has any congestive heart failure. Patient is on BiPAP at home. - Related Data Home Medications Medication Instructions Recorded Confirmed Albuterol Sulfate [Albuterol 2 puff INHALATION RT-Q4H PRN 03/14/22 04/13/24 Sulfate Hfa] Bictegrav/Emtricit/Tenofov Ala 1 tab PO DAILY 08/10/23 04/13/24 [Biktarvy 50-200-25 mg Tablet] Ipratropium-Albuterol Nebulize 3 ml INHALATION RT-Q4H PRN 08/10/23 04/13/24 [Duoneb 0.5 mg-3 mg/3 ml Soln] Famotidine [Pepcid] 20 mg PO BID 09/30/23 04/13/24 Ondansetron [Zofran] 4 mg PO BID PRN 11/05/23 04/13/24 Fluticasone Propionate [Flonase 1 spr EA NOSTRIL DAILY PRN 11/27/23 04/13/24 Allergy Relief] Ibuprofen [Motrin Ib] 400 mg PO Q6H PRN 11/27/23 04/13/24 Simethicone [Gas-X] 125 - 250 mg PO ACHS PRN 11/27/23 04/13/24 Fluticasone/Umeclidin/Vilanter 1 puff INHALATION RT-DAILY 01/04/24 04/13/24 [Trelegy Ellipta 200-62.5-25] Mirtazapine [Remeron] 15 mg PO HS 01/04/24 04/13/24 Nicotine 14Mg/24Hr Patch [Habitrol] 1 patch TRANSDERM DAILY 01/21/24 04/13/24 HYDROcodone/APAP 5-325MG [[place] 1 tab PO Q6HR PRN 03/03/24 04/13/24 5-325] ALPRAZolam [Xanax] 1 mg PO BID 03/29/24 04/13/24 Previous Rx's Medication Instructions Recorded Ipratropium-Albuterol Nebulize 3 ml INHALATION RT-QID each 01/21/24 [Duoneb 0.5 mg-3 mg/3 ml Soln] Qhpqhukn-Biqslsifoo-Ulnc Oint 1 applic TOPICAL BID PRN each 02/14/24 [Triple Antibiotic Ointment] atenoloL [Tenormin] 50 mg PO DAILY #30 tab 02/14/24 Acetaminophen Tab [Tylenol] 650 mg PO Q4HR PRN tab 02/21/24 Spironolactone [Aldactone] 25 mg PO DAILY 14 Days #14 tab 03/14/24 Doxycycline [Vibramycin] 100 mg PO BID #20 cap 04/02/24 Allergies Allergy/AdvReac Type Severity Reaction Status Date / Time Penicillins Allergy Anaphylaxis Verified 04/13/24 19:31 Review of Systems ROS Statement: Those systems with pertinent positive or pertinent negative responses have been documented in the HPI. ROS Other: All systems not noted in ROS Statement are negative. Past Medical History Past Medical History: Asthma, Blood Disorder, COPD, CVA/TIA, Hypertension Additional Past Medical History / Comment(s): HIV, anxiety History of Any Multi-Drug Resistant Organisms: None Reported Past Surgical History: No Surgical Hx Reported Additional Past Surgical History / Comment(s): peg and tracheostomy reversal October 2023 Past Anesthesia/Blood Transfusion Reactions: No Reported Reaction Past Psychological History: Anxiety, Depression, Panic Disorder Smoking Status: Former smoker Past Alcohol Use History: None Reported Past Drug Use History: None Reported - Past Family History Mother History Unknown: Yes Family Medical History: CVA/TIA Father Family Medical History: Cancer General Exam - General Exam Comments Initial Comments: GENERAL: Patient is well-developed and well-nourished. Patient is nontoxic and well- hydrated and is in moderate distress. ENT: Neck is soft and supple. No significant lymphadenopathy is noted. Oropharynx is clear. Moist mucous membranes. Neck has full range of motion without eliciting any pain. EYES: The sclera were anicteric and conjunctiva were pink and moist. Extraocular movements were intact and pupils were equal round and reactive to light. Eyelids were unremarkable. PULMONARY: Manage breath sounds diffusely CARDIOVASCULAR: There is a regular rate and rhythm without any murmurs gallops or rubs. ABDOMEN: Soft and nontender with normal bowel sounds. SKIN: Skin is clear with no lesions or rashes and otherwise unremarkable. NEUROLOGIC: Patient is alert and oriented x3. Cranial nerves II through XII are grossly intact. Motor and sensory are also intact. Normal speech, volume and content. Symmetrical smile. MUSCULOSKELETAL: Normal extremities with adequate strength and full range of motion. Plus edema LYMPHATICS: No significant lymphadenopathy is noted PSYCHIATRIC: Normal psychiatric evaluation. Course Vital Signs 04/13/24 04/13/24 04/13/24 16:51 17:04 17:24 Temperature 99.0 F Pulse Rate 92 Respiratory 22 Rate Blood Pressure 133/78 O2 Sat by Pulse 87 L Oximetry Fraction of 40 40 Inspired Oxygen (FIO2) 04/13/24 04/13/24 19:42 20:27 Temperature Pulse Rate 89 Respiratory 20 Rate Blood Pressure 92/66 O2 Sat by Pulse 100 Oximetry Fraction of 40 Inspired Oxygen (FIO2) Medical Decision Making - Medical Decision Making EKG is interpreted by myself. EKG shows a sinus rhythm at 96 bpm KS was 154 QRS is 82 QT interval 306 QTc is [address] segment elevation. Was pt. sent in by a medical professional or institution ([facility] [place], PANTOGRAPH SETTER, urgent care, hospital, or long term...) When possible be specific @ -No Did you speak to anyone other than the patient for history (EMS, parent, family, police, friend...)? What history was obtained from this source @ -No Did you review nursing and triage notes (agree or disagree)? Why? @ -I reviewed and agree with nursing and triage notes Were old charts reviewed (outside hosp., previous admission, EMS record, old EKG, old radiological studies, urgent care reports/EKG's, long term records)? Report findings @ -Prior hospital admissions on this patient had lab work on this patient. Differential Diagnosis? @ -Differential Dyspnea: Coronary syndrome, arrhythmia, tamponade, asthma, COPD, pulmonary embolism, pneumonia, pneumothorax, pulmonary effusion, anaphylaxis, diabetic ketoacidosis, flailed chest, pulmonary contusion, diaphragmatic rupture, anemia, neuromuscular, this is not meant to be an all-inclusive list. EKG interpreted by me (3pts min.). @ -As above X-rays interpreted by me (1pt min.). @ -Chest x-ray shows no acute abnormality CT interpreted by me (1pt min.). @ -None done U/S interpreted by me (1pt. min.). @ -None done What testing was considered but not performed or refused? (CT, X-rays, U/S, la bs)? Why? @ -None What meds were considered but not given or refused? Why? @ -None Did you discuss the management of the patient with other professionals (professionals i.e. , PA, PANTOGRAPH SETTER, lab, RT, psych nurse, social sciences chair, lead shipper, teacher, workplace rehabilitation officer, case coordinator)? Give summary @ -I spoke with Dr. Argueta he agreed to admit the patient admit the patient wrote admitting orders Was smoking cessation discussed for >3mins.? @ -No Was critical care preformed (if so, how long)? @ -35 minutes Were there social determinants of health that impacted care today? How? (Homelessness, low income, unemployed, alcoholism, drug addiction, transportation, low edu. Level, literacy, decrease access to med. care, alf, rehab)? @ -No Was there de-escalation of care discussed even if they declined (Discuss DNR or withdrawal of care, Hospice)? DNR status @ -No What co-morbidities impacted this encounter? (DM, HTN, Smoking, COPD, CAD, Cancer, CVA, ARF, Chemo, Hep., AIDS, mental health diagnosis, sleep apnea, morbid obesity)? @ -None Was patient admitted / discharged? Hospital course, mention meds given and route, prescriptions, significant lab abnormalities, going to OR and other pertinent info. @ -Patient was placed on BiPAP when she arrived. Patient was also given breathing treatments steroids and antibiotics. Undiagnosed new problem with uncertain prognosis? @ -No Drug Therapy requiring intensive monitoring for toxicity (Heparin, Nitro, Insulin, Cardizem)? @ -No Were any procedures done? @ -No Diagnosis/symptom? @ -COPD exacerbation Acute, or Chronic, or Acute on Chronic? @ -Acute Uncomplicated (without systemic symptoms) or Complicated (systemic symptoms)? @ -complicated Side effects of treatment? @ -No Exacerbation, Progression, or Severe Exacerbation? @ -No Poses a threat to life or bodily function? How? (Chest pain, USA, AL, pneumonia, PE, COPD, DKA, ARF, appy, cholecystitis, CVA, Diverticulitis, Homicidal, Suicidal, threat to staff... and all critical care pts) @ -Yes this can lead to hypoxia and endorgan dysfunction - Lab Data Result diagrams: 04/13/24 17:15 Lab Results 04/13/24 04/13/24 04/13/24 Range/Units 17:15 17:15 17:15 WBC 9.7 (3.8-10.6) k/uL RBC 3.58 L (3.80-5.40) m/uL Hgb 11.0 L (11.4-16.0) gm/dL Hct 36.2 (34.0-46.0) % MCV 101.1 H (80.0-100.0) fL MCH 30.8 (25.0-35.0) pg MCHC 30.5 L (31.0-37.0) g/dL RDW 14.3 (11.5-15.5) % Plt Count 378 (150-450) k/uL MPV 6.6 Neutrophils % 66 % Lymphocytes % 25 % Monocytes % 6 % Eosinophils % 1 % Basophils % 1 % Neutrophils # 6.4 (1.3-7.7) k/uL Lymphocytes # 2.4 (1.0-4.8) k/uL Monocytes # 0.6 (0-1.0) k/uL Eosinophils # 0.1 (0-0.7) k/uL Basophils # 0.1 (0-0.2) k/uL Hypochromasia Marked Macrocytosis Slight PT 10.2 (10.0-12.5) sec INR 0.9 (<1.2) APTT 23.0 (22.0-30.0) sec VBG pH (7.31-7.41) VBG pCO2 (37-51) mmHg VBG HCO3 (24-28) mmol/L Plasma Lactic Acid Jarad 1.8 (0.7-2.0) mmol/L Troponin I (0.000-0.034) ng/mL 04/13/24 04/13/24 Range/Units 17:15 17:30 WBC (3.8-10.6) k/uL RBC (3.80-5.40) m/uL Hgb (11.4-16.0) gm/dL Hct (34.0-46.0) % MCV (80.0-100.0) fL MCH (25.0-35.0) pg MCHC (31.0-37.0) g/dL RDW (11.5-15.5) % Plt Count (150-450) k/uL MPV Neutrophils % % Lymphocytes % % Monocytes % % Eosinophils % % Basophils % % Neutrophils # (1.3-7.7) k/uL Lymphocytes # (1.0-4.8) k/uL Monocytes # (0-1.0) k/uL Eosinophils # (0-0.7) k/uL Basophils # (0-0.2) k/uL Hypochromasia Macrocytosis PT (10.0-12.5) sec INR (<1.2) APTT (22.0-30.0) sec VBG pH 7.36 (7.31-7.41) VBG pCO2 78 H* (37-51) mmHg VBG HCO3 44 H (24-28) mmol/L Plasma Lactic Acid Jarad (0.7-2.0) mmol/L Troponin I <0.012 (0.000-0.034) ng/mL Disposition Clinical Impression: COPD exacerbation Disposition: ADMITTED IP TO THIS HOSP Referrals: Sy Steele MD [Primary Care Provider] - 1-2 days Time of Disposition: 20:39
[2024-04-13] MEDS: NITROGLYCERIN OINT 1 INCH/GM PACKET TOPICAL STA (17:16)
[2024-04-13 17:34] LABS: Basophils # (A) 0.1 k/uL (0-0.2); Basophils % (A) 1 %; Eosinophils # (A) 0.1 k/uL (0-0.7); Eosinophils % (A) 1 %; HCT 36.2 % (34.0-46.0); Hypochromasia Marked; Lymphocytes # (A) 2.4 k/uL (1.0-4.8); Lymphocytes % (A) 25 %; MCH 30.8 pg (25.0-35.0); MCHC 30.5 g/dL (31.0-37.0); MCV 101.1 fL (80.0-100.0); Macrocytosis Slight; Mean Platelet Volume 6.6; Monocytes # (A) 0.6 k/uL (0-1.0); Monocytes % (A) 6 %; Neutrophils # (A) 6.4 k/uL (1.3-7.7); Neutrophils % (A) 66 %; Platelet Count 378 k/uL (150-450); RBC 3.58 m/uL (3.80-5.40); RDW 14.3 % (11.5-15.5); WBC 9.7 k/uL (3.8-10.6)
[2024-04-13 17:40] LABS: VBG PH 7.36 (7.31-7.41)
[2024-04-13] MEDS: methylPREDNISolone SOD SUCCI 125 MG/2 ML VIAL IV STA (17:48)
[2024-04-13] MEDS: FUROSEMIDE 10 MG/ML 4 ML VIAL IV STA (17:48)
[2024-04-13 17:58] LABS: INR 0.9 (<1.2); Prothrombin Time 10.2 sec (10.0-12.5)
--- NOTE | 2024-04-13 18:26 | XR ---
EXAMINATION TYPE: XR chest 1V portable DATE OF EXAM: 04/13/2024 6:18 PM COMPARISON: Previous chest radiograph 04/08/2024. CLINICAL INDICATION: Female, 53 years old with history of difficulty breathing; [facility] TECHNIQUE: XR chest 1V portable Frontal view of the chest. FINDINGS: Lungs/Pleura: There is no evidence of pleural effusion, focal consolidation, or pneumothorax. Pulmonary vascularity: Unremarkable. Heart/mediastinum: Cardiomediastinal silhouette is unremarkable. Musculoskeletal: No acute osseous pathology. Other findings: None IMPRESSION: No acute cardiopulmonary disease/process. [facility], , 04/13/2024 6:24 PM
[2024-04-13] MEDS: ACETAMINOPHEN IV (For NPO) 1,000 MG in EMPTY BAG 1 BAG IVPB STA (20:40)
[2024-04-13] MEDS ORDERED: NALOXONE 0.4 MG/ML 1 ML VIAL IVP PRN (20:46)
[2024-04-13] MEDS ORDERED: IPRATROPIUM-ALBUTEROL 3 ML NEB INHALATION PRN (20:46)
[2024-04-13] MEDS: LORazepam 2 MG/ML INJ IV STA (20:47)
[2024-04-13 20:52] LABS: ALT 13 U/L (4-34); AST 18 U/L (14-36); African American GFR (CKD) >90 (>60 ml/min/1.73 sqM); Albumin 3.6 g/dL (3.5-5.0); Alkaline Phosphatase 87 U/L (38-126); Anion Gap 3 mmol/L; Blood Urea Nitrogen 12 mg/dL (7-17); Calcium 8.9 mg/dL (8.4-10.2); Chloride 88 mmol/L (98-107); Glucose 112 mg/dL (74-99); Magnesium 2.1 mg/dL (1.6-2.3); Non-African American GFR(CKD) >90 (>60 ml/min/1.73 sqM); Potassium 4.6 mmol/L (3.5-5.1); Sodium 131 mmol/L (137-145); Total Bilirubin 0.2 mg/dL (0.2-1.3); Total Protein 5.6 g/dL (6.3-8.2)
[2024-04-13 21:00] LABS: NT-Pro-B-Type Natriuretic Pept 91 pg/mL
[2024-04-13 21:14] LABS: Carbon Dioxide 43 mmol/L (22-30)
[2024-04-13] MEDS: AZITHROMYCIN 500 MG TAB PO SCH (22:13)
[2024-04-13] MEDS: methylPREDNISolone SOD SUCCI 125 MG/2 ML VIAL IV SCH (23:58)
[2024-04-14] MEDS: IPRATROPIUM-ALBUTEROL 3 ML NEB INHALATION SCH (08:08)
[2024-04-14] MEDS ORDERED: NEOMYCIN-BACITRACIN-POLY OINT 14 GM TUBE TOPICAL PRN (09:56)
[2024-04-14] MEDS ORDERED: IBUPROFEN 400 MG TAB PO PRN (09:56)
[2024-04-14] MEDS ORDERED: SIMETHICONE 80 MG CHEWABLE PO PRN (09:56)
[2024-04-14] MEDS ORDERED: ACETAMINOPHEN TAB 325 MG TAB PO PRN (09:56)
[2024-04-14] MEDS ORDERED: IPRATROPIUM-ALBUTEROL 3 ML NEB INHALATION PRN (10:00)
--- NOTE | 2024-04-14 10:12 | P.HPIM ---
History of Present Illness 53-year-old female came in with complaints of unable to take care of herself at home and the patient apparently had a recent rib fracture because of the severe pain she is unable to take care of herself and she was quite weak. Patient does have history of COPD patient is on 2 L of oxygen saturating 97% which is her baseline. Patient although was complaining of shortness of breath as well apparently patient does have limited air entry to bilateral lung moralez. Patient used to smoke until recently quit smoking recently. REVIEW OF SYSTEMS: All other systems are negative except those mentioned in the HPI PHYSICAL EXAMINATION: GENERAL: The patient is alert and oriented x3, not in any acute distress. Well developed, well nourished. HEENT: Pupils are round and equally reacting to light. EOMI. No scleral icterus. No conjunctival pallor. Normocephalic, atraumatic. No pharyngeal erythema. No thyromegaly. CARDIOVASCULAR: S1 and S2 present. No murmurs, rubs, or gallops. PULMONARY: Chest is clear to auscultation, no wheezing or crackles. ABDOMEN: Soft, nontender, nondistended, normoactive bowel sounds. No palpable or ganomegaly. MUSCULOSKELETAL: No joint swelling or deformity. EXTREMITIES: No cyanosis, clubbing, or pedal edema. NEUROLOGICAL: Gross neurological examination did not reveal any focal deficits. SKIN: No rashes. Assessment and plan -Generalized deconditioning: Physical therapy Occupational Therapy evaluation patient will be monitored overnight -COPD with mild acute exacerbation improved at this time I will discontinue systemic steroids inhaled steroids and inhalational treatments will be continued -Chronic hypercapnic respiratory failure secondary to COPD -Possible rib although these rib fractures are not evident on the present x-ray: Continue with Tylenol at home dose of Tuttle, Motrin for pain Spirometry -Hypertension Blood pressure is low normal we will cut down the dose of atenolol to 25 mg -HIV for which patient is on Biktarvy which will be continued DVT prophylaxis: Lovenox GI prophylaxis Pepcid: Past Medical History Past Medical History: Asthma, Blood Disorder, COPD, CVA/TIA, Hypertension Additional Past Medical History / Comment(s): HIV, anxiety History of Any Multi-Drug Resistant Organisms: None Reported Past Surgical History: No Surgical Hx Reported Additional Past Surgical History / Comment(s): peg and tracheostomy reversal September/October 2023 Past Anesthesia/Blood Transfusion Reactions: No Reported Reaction Past Psychological History: Anxiety, Depression, Panic Disorder Smoking Status: Former smoker Past Alcohol Use History: None Reported Past Drug Use History: None Reported - Past Family History Mother History Unknown: Yes Family Medical History: CVA/TIA Father Family Medical History: Cancer Medications and Allergies Home Medications Medication Instructions Recorded Confirmed Type Albuterol Sulfate [Albuterol 2 puff INHALATION RT-Q4H PRN 03/14/22 04/13/24 History Sulfate Hfa] Bictegrav/Emtricit/Tenofov Ala 1 tab PO DAILY 08/10/23 04/13/24 History [Biktarvy 50-200-25 mg Tablet] Ipratropium-Albuterol Nebulize 3 ml INHALATION RT-Q4H PRN 08/10/23 04/13/24 History [Duoneb 0.5 mg-3 mg/3 ml Soln] Famotidine [Pepcid] 20 mg PO BID 09/30/23 04/13/24 History Ondansetron [Zofran] 4 mg PO BID PRN 11/05/23 04/13/24 History Fluticasone Propionate [Flonase 1 spr EA NOSTRIL DAILY PRN 11/27/23 04/13/24 History Allergy Relief] Ibuprofen [Motrin Ib] 400 mg PO Q6H PRN 11/27/23 04/13/24 History Simethicone [Gas-X] 125 - 250 mg PO ACHS PRN 11/27/23 04/13/24 History Fluticasone/Umeclidin/Vilanter 1 puff INHALATION RT-DAILY 01/04/24 04/13/24 History [Trelegy Ellipta 200-62.5-25] Mirtazapine [Remeron] 15 mg PO HS 01/04/24 04/13/24 History Ipratropium-Albuterol Nebulize 3 ml INHALATION RT-QID each 01/21/24 04/13/24 Rx [Duoneb 0.5 mg-3 mg/3 ml Soln] Nicotine 14Mg/24Hr Patch [Habitrol] 1 patch TRANSDERM DAILY 01/21/24 04/13/24 History Dxohbzgb-Lustjtdfrg-Nvay Oint 1 applic TOPICAL BID PRN each 02/14/24 04/13/24 Rx [Triple Antibiotic Ointment] atenoloL [Tenormin] 50 mg PO DAILY #30 tab 02/14/24 04/13/24 Rx Acetaminophen Tab [Tylenol] 650 mg PO Q4HR PRN tab 02/21/24 04/13/24 Rx HYDROcodone/APAP 5-325MG [Tuttle 1 tab PO Q6HR PRN 03/03/24 04/13/24 History 5-325] Spironolactone [Aldactone] 25 mg PO DAILY 14 Days #14 tab 03/14/24 04/13/24 Rx ALPRAZolam [Xanax] 1 mg PO BID 03/29/24 04/13/24 History Doxycycline [Vibramycin] 100 mg PO BID #20 cap 04/02/24 04/13/24 Rx Allergies Allergy/AdvReac Type Severity Reaction Status Date / Time Penicillins Allergy Anaphylaxis Verified 04/13/24 19:31 Physical Exam Vitals: Vital Signs Temp Pulse Resp BP Pulse Ox FiO2 04/14/24 08:20 80 04/14/24 08:11 76 97 04/14/24 06:53 76 20 98/59 99 04/14/24 03:54 40 04/14/24 03:00 82 19 116/74 100 04/14/24 00:00 89 19 111/78 100 04/13/24 23:39 40 04/13/24 22:14 89 20 105/75 100 04/13/24 20:27 89 20 92/66 100 04/13/24 19:42 40 04/13/24 17:24 40 04/13/24 17:04 40 04/13/24 16:51 99.0 F 92 22 133/78 87 L Intake and Output 04/13/24 04/14/24 04/14/24 22:59 06:59 14:59 Other: Weight 52.163 kg Results CBC & Chem 7: 04/13/24 17:15 04/13/24 20:19 Labs: Abnormal Lab Results - Last 24 Hours (Table) 04/13/24 04/13/24 04/13/24 Range/Units 17:15 17:30 20:19 RBC 3.58 L (3.80-5.40) m/uL Hgb 11.0 L (11.4-16.0) gm/dL MCV 101.1 H (80.0-100.0) fL MCHC 30.5 L (31.0-37.0) g/dL VBG pCO2 78 H* (37-51) mmHg VBG HCO3 44 H (24-28) mmol/L Sodium 131 L (137-145) mmol/L Chloride 88 L (98-107) mmol/L Carbon Dioxide 43 H* (22-30) mmol/L Creatinine 0.47 L (0.52-1.04) mg/dL Glucose 112 H (74-99) mg/dL Total Protein 5.6 L (6.3-8.2) g/dL
[2024-04-14] MEDS: NICOTINE 7MG/24HR PATCH TRANSDERM SCH (10:40)
[2024-04-14] MEDS: ALPRAZolam 1 MG TAB PO PRN (14:24)
[2024-04-14] MEDS: HYDROcodone/APAP 5-325MG 1 EACH TAB PO PRN (14:24)
[2024-04-14] MEDS: MIRTAZAPINE 15 MG TAB PO SCH (22:31)
[2024-04-14] MEDS: FAMOTIDINE 20 MG TAB PO SCH (22:32)
[2024-04-15] MEDS: SYMBICORT 80-4.5 MCG INHALER INHALATION SCH (08:07)
[2024-04-15] MEDS: SPIRONOLACTONE 25 MG TAB PO SCH (09:02)
[2024-04-15] MEDS: atenoloL 25 MG TAB PO SCH (09:02)
[2024-04-15] MEDS: ENOXAPARIN 40 MG/0.4 ML SYRINGE SQ SCH (09:03)
[2024-04-16 15:48] VITALS: BMI 21.7
[2024-04-17 13:36] LABS: Basophils # (A) 0.1 k/uL (0-0.2); Basophils % (A) 1 %; Eosinophils # (A) 0.1 k/uL (0-0.7); Eosinophils % (A) 1 %; HCT 32.3 % (34.0-46.0); HGB 10.3 gm/dL (11.4-16.0); Hypochromasia Moderate; Lymphocytes # (A) 2.2 k/uL (1.0-4.8); Lymphocytes % (A) 29 %; MCH 31.8 pg (25.0-35.0); MCHC 31.7 g/dL (31.0-37.0); MCV 100.2 fL (80.0-100.0); Macrocytosis Slight; Mean Platelet Volume 6.8; Monocytes # (A) 0.5 k/uL (0-1.0); Monocytes % (A) 7 %; Neutrophils # (A) 4.6 k/uL (1.3-7.7); Neutrophils % (A) 61 %; Platelet Count 286 k/uL (150-450); RBC 3.23 m/uL (3.80-5.40); RDW 14.2 % (11.5-15.5); WBC 7.6 k/uL (3.8-10.6)
[2024-04-17 13:51] LABS: ALT 15 U/L (4-34); AST 21 U/L (14-36); African American GFR (CKD) >90 (>60 ml/min/1.73 sqM); Albumin 3.7 g/dL (3.5-5.0); Albumin/Globulin Ratio 1.9; Alkaline Phosphatase 75 U/L (38-126); Blood Urea Nitrogen 20 mg/dL (7-17); Calcium 8.9 mg/dL (8.4-10.2); Chloride 91 mmol/L (98-107); Glucose 103 mg/dL (74-99); Non-African American GFR(CKD) >90 (>60 ml/min/1.73 sqM); Potassium 4.1 mmol/L (3.5-5.1); Sodium 135 mmol/L (137-145); Total Bilirubin 0.3 mg/dL (0.2-1.3); Total Protein 5.7 g/dL (6.3-8.2)
[2024-04-17 13:57] LABS: Anion Gap 5 mmol/L
[2024-04-17 14:00] LABS: Carbon Dioxide 39 mmol/L (22-30)
--- NOTE | 2024-04-17 14:01 | XR ---
EXAMINATION TYPE: XR chest 2V DATE OF EXAM: 04/17/2024 1:27 PM COMPARISON: 04/13/2024 CLINICAL INDICATION: Female, 53 years old with history of pneum., copd, TECHNIQUE: Frontal and lateral views of the chest are obtained. FINDINGS: There is no focal air space opacity, pleural effusion, or pneumothorax seen. The cardiac silhouette size is within normal limits. The osseous structures are intact. IMPRESSION: No acute cardiopulmonary process. [facility], , 04/17/2024 1:59 PM
--- NOTE | 2024-04-18 07:58 | PN ---
PROGRESS NOTE DATE OF SERVICE: 04/16/2024 CHIEF COMPLAINT: Exacerbation of COPD and pneumonitis. HISTORY OF PRESENT ILLNESS: This lady is feeling a little bit better, but she still feels very weak and short of breath. PHYSICAL EXAMINATION: VITAL SIGNS: Normal. LUNGS: Breath sounds are fairly clear now. There are no significant rales or rhonchi. CARDIAC: Exam is normal. IMPRESSION: Chronic obstructive pulmonary disease exacerbation and bronchial pneumonia. PLAN: Continue with inpatient program and try to discharge the next day or 2. MMODL / IJN: [id number] /
--- NOTE | 2024-04-18 08:13 | PN ---
PROGRESS NOTE DATE OF SERVICE: 04/17/2024 CHIEF COMPLAINT: COPD and shortness of breath. HISTORY OF PRESENT ILLNESS: This lady feels just about the same. PHYSICAL EXAMINATION: VITAL SIGNS: Normal. CHEST: Seems quite clear. CARDIAC: Exam is normal. ABDOMEN: Soft and nontender. IMPRESSION: 1. Exacerbation of chronic obstructive pulmonary disease. 2. Bronchial pneumonia. PLAN: Repeat chest x-ray and laboratory studies and increase activity. MMODL / IJN: [id number] /
--- NOTE | 2024-04-18 08:40 | PN ---
PROGRESS NOTE CHIEF COMPLAINT: COPD. HISTORY OF PRESENT ILLNESS: This lady is still very short of breath. She is not febrile. PHYSICAL EXAMINATION: CHEST: Demonstrates very poor breath sounds. CARDIAC: Exam is normal. ABDOMEN: Soft, nontender. IMPRESSION: 1. Exacerbation of chronic obstructive pulmonary disease. 2. Chest wall pain. PLAN: 1. Continue with updrafts and IV fluids. 2. PT and OT. MMODL / IJN: [id number] /
[2024-04-18 14:37] VITALS: BP 113/72; PULSE 83; RESP 18; TEMP 98.5
== END 2024-04-18 16:06 | disposition home or self-care (01) | DRG 190 ==
LOC: EC 16:49 → 3SCARD 20:47 → 4SSUR 04-14 16:01
PROVIDERS: ADMIT Family Medicine; ATTEND Family Medicine
DX: J44.1 Chronic obstructive pulmonary disease with (acute) exacerbation (principal); J18.0 Bronchopneumonia, unspecified organism; J96.12 Chronic respiratory failure with hypercapnia; Z88.0 Allergy status to penicillin; I10 Essential (primary) hypertension; F41.0 Panic disorder [episodic paroxysmal anxiety]; F32.A Depression, unspecified; Z21 Asymptomatic human immunodeficiency virus [HIV] infection status; J44.0 Chronic obstructive pulmonary disease with (acute) lower respiratory infection; Z79.899 Other long term (current) drug therapy; Z87.891 Personal history of nicotine dependence; Z86.73 Personal history of transient ischemic attack (TIA), and cerebral infarction without residual deficits
CPT/HCPCS: 36415; 71045; 71046; 80053; 82803; 83605; 83735; 83880; 84484; 85025; 85610; 85730; 93005; 94640; 94660; 94760; 96374; 96375; 96376; 99291

== ENCOUNTER 2024-09-04 23:49 | Inpatient (IN) | payer MEDICARE, OTHER ==
--- NOTE | 2024-09-04 23:57 | ED ---
SOB HPI - General Stated Complaint: SOB Time Seen by Provider: 09/04/24 23:56 Source: RN notes reviewed, old records reviewed Mode of arrival: ambulatory Limitations: no limitations - History of Present Illness Initial Comments: This is a 53-year-old female to the ER for severe shortness of breath. Patient has severe shortness of breath calling EMS and presenting on BiPAP. Priority 1 secondary to hypoxia and need for BiPAP treatment. Patient is well-known to this emergency department for respiratory failure MD Complaint: shortness of breath, "asthma attack", anxiety -: hour(s) Severity: severe Severity scale (1-10): 10 Consistency: constant Improves With: nothing Known History Of: COPD, asthma Context: recent URI, anxiety Associated Symptoms: cough, sputum production Treatments Prior to Arrival: oxygen, bronchodilator, NIPPV - Related Data Home Medications Medication Instructions Recorded Confirmed Bictegrav/Emtricit/Tenofov Ala 1 tab PO DAILY 08/10/23 09/05/24 [Biktarvy 50-200-25 mg Tablet] Fluticasone Propionate [Flonase 1 spr EA NOSTRIL DAILY 11/27/23 09/05/24 Allergy Relief] Fluticasone/Umeclidin/Vilanter 1 puff INHALATION RT-DAILY 01/04/24 09/05/24 [Trelegy Ellipta 200-62.5-25] Mirtazapine [Remeron] 15 mg PO HS 01/04/24 09/05/24 ALPRAZolam [Xanax] 1 mg PO BID 03/29/24 09/05/24 Previous Rx's Medication Instructions Recorded atenoloL [Tenormin] 50 mg PO DAILY #30 tab 02/14/24 Spironolactone [Aldactone] 25 mg PO DAILY 14 Days #14 tab 03/14/24 Budesonide-Formot 160-4.5 Mcg 2 puff INHALATION RT-BID 30 Days 09/07/24 [Symbicort 160-4.5 Mcg Inhaler] #120 each Ipratropium-Albuterol Nebulize 3 ml INHALATION RT-QID 30 Days 09/07/24 [Duoneb 0.5 mg-3 mg/3 ml Soln] #120 each predniSONE 10 mg PO DAILY 12 Days #30 tab 09/07/24 Allergies Allergy/AdvReac Type Severity Reaction Status Date / Time Penicillins Allergy Anaphylaxis Verified 09/05/24 08:30 Review of Systems ROS Statement: Those systems with pertinent positive or pertinent negative responses have been documented in the HPI. ROS Other: All systems not noted in ROS Statement are negative. Past Medical History Past Medical History: Asthma, Blood Disorder, COPD, CVA/TIA, Hypertension Additional Past Medical History / Comment(s): HIV, anxiety History of Any Multi-Drug Resistant Organisms: None Reported Past Surgical History: No Surgical Hx Reported Additional Past Surgical History / Comment(s): peg and tracheostomy reversal October 2023 Past Anesthesia/Blood Transfusion Reactions: No Reported Reaction Past Psychological History: Anxiety, Depression, Panic Disorder Smoking Status: Former smoker Past Alcohol Use History: None Reported Past Drug Use History: None Reported - Past Family History Mother History Unknown: Yes Family Medical History: CVA/TIA Father Family Medical History: Cancer General Exam General appearance: alert, in no apparent distress, anxious, in distress Head exam: Present: atraumatic, normocephalic, normal inspection Eye exam: Present: normal appearance, PERRL, EOMI. Absent: scleral icterus, conjunctival injection, periorbital swelling ENT exam: Present: normal exam, mucous membranes moist Neck exam: Present: normal inspection. Absent: tenderness, meningismus, lymphadenopathy Respiratory exam: Present: respiratory distress, wheezes, accessory muscle use, decreased breath sounds, prolonged expiratory. Absent: rales, rhonchi, stridor Cardiovascular Exam: Present: normal rhythm, tachycardia, normal heart sounds. Absent: systolic murmur, diastolic murmur, rubs, gallop, clicks GI/Abdominal exam: Present: soft, normal bowel sounds. Absent: distended, tenderness, guarding, rebound, rigid Extremities exam: Present: normal inspection, full ROM, normal capillary refill. Absent: tenderness, pedal edema, joint swelling, calf tenderness Back exam: Present: normal inspection Neurological exam: Present: alert, oriented X3, CN II-XII intact Psychiatric exam: Present: normal affect, normal mood Skin exam: Present: warm, dry, intact, normal color. Absent: rash Course Vital Signs 09/04/24 09/05/24 09/05/24 23:56 00:12 00:19 Temperature 98.1 F Pulse Rate 75 73 74 Respiratory 24 Rate Blood Pressure 185/109 O2 Sat by Pulse 100 Oximetry Fraction of 40 Inspired Oxygen (FIO2) 09/05/24 09/05/24 09/05/24 00:30 01:00 01:36 Temperature Pulse Rate 76 74 Respiratory 18 18 Rate Blood Pressure 156/100 123/108 O2 Sat by Pulse 100 100 100 Oximetry Fraction of Inspired Oxygen (FIO2) 09/05/24 09/05/24 09/05/24 02:00 03:10 03:12 Temperature Pulse Rate 85 72 Respiratory 18 Rate Blood Pressure 124/92 O2 Sat by Pulse 99 98 Oximetry Fraction of Inspired Oxygen (FIO2) 09/05/24 09/05/24 09/05/24 03:26 04:00 06:00 Temperature Pulse Rate 77 76 74 Respiratory 18 18 Rate Blood Pressure 131/88 130/79 O2 Sat by Pulse 99 100 Oximetry Fraction of Inspired Oxygen (FIO2) 09/05/24 09/05/24 09/05/24 07:21 08:14 08:29 Temperature Pulse Rate 69 80 68 Respiratory 18 16 Rate Blood Pressure 113/74 125/76 O2 Sat by Pulse 99 99 97 Oximetry Fraction of Inspired Oxygen (FIO2) 09/05/24 09/05/24 09/05/24 08:38 11:40 12:12 Temperature Pulse Rate 72 74 75 Respiratory 18 16 Rate Blood Pressure 145/107 137/95 O2 Sat by Pulse 98 100 Oximetry Fraction of Inspired Oxygen (FIO2) 09/05/24 09/05/24 09/05/24 16:38 16:44 16:53 Temperature 98.7 F Pulse Rate 95 80 84 Respiratory 20 Rate Blood Pressure 125/85 O2 Sat by Pulse 99 Oximetry Fraction of Inspired Oxygen (FIO2) - Reevaluation(s) Reevaluation #1: 09/05/24 00:41 Medical records reviewed Reevaluation #2: 09/05/24 01:21 Patient is slowly improving on BiPAP. In the ER Reevaluation #3: 09/05/24 01:21 Patient informed of results questions answered Reevaluation #4: Was pt. sent in by a medical professional or institution (, PA, HAY STACKER OPERATOR, urgent care, hospital, or group home...) When possible be specific @ -no Did you speak to anyone other than the patient for history (EMS, parent, family, police, friend...)? What history was obtained from this source @ -no Did you review nursing and triage notes (agree or disagree)? Why? @ -agree Are old charts reviewed (outside hosp., previous admission, EMS record, old EKG, old radiological studies, urgent care reports/EKG's, group home records)? Report findings @ -yes Differential Diagnosis (chest pain, altered mental status, abdominal pain women, abdominal pain men, vaginal bleeding, weakness, fever, dyspnea, syncope, headache, dizziness, GI bleed, back pain, seizure, CVA, palpatations, mental health, musculoskeletal)? @ -prior EKG interpreted by me (3pts min.). @ -yes X-rays interpreted by me (1pt min.). @ -yes positive for pneumonia CT interpreted by me (1pt min.). @ -no U/S interpreted by me (1pt. min.). @ -no What testing was considered but not performed or refused? (CT, X-rays, U/S, labs)? Why? @ -none What meds were considered but not given or refused? Why? @ -none Did you discuss the management of the patient with other professionals (professionals i.e. , PA, HAY STACKER OPERATOR, lab, RT, psych nurse, 7th grade social studies teacher, cassandra architect, teacher, administrative services officer, supervisor case loading)? Give summary @ -no Was smoking cessation discussed for >3mins.? @ -no Was critical care preformed (if so, how long)? @ -yes31 Were there social determinants of health that impacted care today? How? (Homelessness, low income, unemployed, alcoholism, drug addiction, transportation, low edu. Level, literacy, decrease access to med. care, retirement, rehab)? @ -none Was there de-escalation of care discussed even if they declined (Discuss DNR or withdrawal of care, Hospice)? DNR status @ -no What co-morbidities impacted this encounter? (DM, HTN, Smoking, COPD, CAD, Cancer, CVA, ARF, Chemo, Hep., AIDS, mental health diagnosis, sleep apnea, morbid obesity)? @ -none Was patient admitted / discharged? Hospital course, mention meds given and route, prescriptions, significant lab abnormalities, going to OR and other pertinent info. @ - 53 female with acute respiratory failure COPD respiratory failure complicated with pneumonia. Will admit for IV antibiotics and persistent BiPAP Admitted COPD, Undiagnosed new problem with uncertain prognosis? @ -no Drug Therapy requiring intensive monitoring for toxicity (Heparin, Nitro, Insulin, Cardizem)? @ -no Were any procedures done? @ -no Diagnosis/symptom? @ -pneumonia with respiratory failure Acute, or Chronic, or Acute on Chronic? @ -Acute Uncomplicated (without systemic symptoms) or Complicated (systemic symptoms)? @ -Complicated Side effects of treatment? @ -no Exacerbation, Progression, or Severe Exacerbation? @ -exacerbation Poses a threat to life or bodily function? How? (Chest pain, USA, ID, pneumonia, PE, COPD, DKA, ARF, appy, cholecystitis, CVA, Diverticulitis, Homicidal, Suicidal, threat to staff... and all critical care pts) @ -yes with respiratory failure Reevaluation #5: Differential Dyspnea: Coronary syndrome, arrhythmia, tamponade, asthma, COPD, pulmonary embolism, pneumonia, pneumothorax, pulmonary effusion, anaphylaxis, diabetic ketoacidosis, flailed chest, pulmonary contusion, diaphragmatic rupture, anemia, neuromuscular, this is not meant to be an all-inclusive list. - Consultations Consultation #1: Spoke with Dr. Teixeira who agrees to admit this patient Medical Decision Making - Medical Decision Making 53 female with acute respiratory failure COPD respiratory failure complicated with pneumonia. Will admit for IV antibiotics and persistent BiPAP - Lab Data Result diagrams: 09/07/24 04:43 09/07/24 04:43 Lab Results 09/04/24 09/04/24 09/04/24 Range/Units 23:50 23:50 23:50 WBC 5.89 (4.50-10.00) 10*3/uL RBC 3.41 L (4.10-5.20) 10*6/uL Hgb 10.4 L (12.0-15.0) g/dL Hct 32.7 L (37.2-46.3) % MCV 95.9 (80.0-97.0) fL MCH 30.5 (27.0-32.0) pg MCHC 31.8 L (32.0-37.0) g/dL Plt Count 282 (140-440) 10*3/uL MPV 8.7 L (9.5-12.2) fL Immature Gran % (Auto) 0.3 % Neutrophils % 40.0 % Lymphocytes % 43.8 % Monocytes % 10.5 % Eosinophils % 4.6 % Basophils % 0.8 % Immature Gran # 0.02 (0.00-0.04) 10*3/uL Neutrophils # 2.35 (1.80-7.70) 10*3/uL Lymphocytes # 2.58 (0.90-5.00) 10*3/uL Monocytes # 0.62 (0.20-1.00) 10*3/uL Eosinophils # 0.27 (0.04-0.35) 10*3/uL Basophils # 0.05 (0.00-0.10) 10*3/uL PT 10.0 (10.0-12.5) sec INR 0.9 (<1.2) APTT 23.9 (22.0-30.0) sec Sodium 136 L (137-145) mmol/L Potassium 4.6 (3.5-5.1) mmol/L Chloride 93 L (98-107) mmol/L Carbon Dioxide 38 H (22-30) mmol/L Anion Gap 5 mmol/L BUN 11 (7-17) mg/dL Creatinine 0.54 (0.52-1.04) mg/dL Est GFR (CKD-EPI)AfAm >90 (>60 ml/min/1.73 sqM) Est GFR (CKD-EPI)NonAf >90 (>60 ml/min/1.73 sqM) Glucose 91 (74-99) mg/dL Plasma Lactic Acid Jarad (0.7-2.0) mmol/L Calcium 9.6 (8.4-10.2) mg/dL Magnesium 2.1 (1.6-2.3) mg/dL Total Bilirubin 0.4 (0.2-1.3) mg/dL AST 29 (14-36) U/L ALT 16 (4-34) U/L Alkaline Phosphatase 67 (38-126) U/L Troponin I (0.000-0.034) ng/mL NT-Pro-B Natriuret Pep 91 pg/mL Total Protein 6.5 (6.3-8.2) g/dL Albumin 4.0 (3.5-5.0) g/dL 09/04/24 09/04/24 Range/Units 23:50 23:50 WBC (4.50-10.00) 10*3/uL RBC (4.10-5.20) 10*6/uL Hgb (12.0-15.0) g/dL Hct (37.2-46.3) % MCV (80.0-97.0) fL MCH (27.0-32.0) pg MCHC (32.0-37.0) g/dL Plt Count (140-440) 10*3/uL MPV (9.5-12.2) fL Immature Gran % (Auto) % Neutrophils % % Lymphocytes % % Monocytes % % Eosinophils % % Basophils % % Immature Gran # (0.00-0.04) 10*3/uL Neutrophils # (1.80-7.70) 10*3/uL Lymphocytes # (0.90-5.00) 10*3/uL Monocytes # (0.20-1.00) 10*3/uL Eosinophils # (0.04-0.35) 10*3/uL Basophils # (0.00-0.10) 10*3/uL PT (10.0-12.5) sec INR (<1.2) APTT (22.0-30.0) sec Sodium (137-145) mmol/L Potassium (3.5-5.1) mmol/L Chloride (98-107) mmol/L Carbon Dioxide (22-30) mmol/L Anion Gap mmol/L BUN (7-17) mg/dL Creatinine (0.52-1.04) mg/dL Est GFR (CKD-EPI)AfAm (>60 ml/min/1.73 sqM) Est GFR (CKD-EPI)NonAf (>60 ml/min/1.73 sqM) Glucose (74-99) mg/dL Plasma Lactic Acid Jarad 0.7 (0.7-2.0) mmol/L Calcium (8.4-10.2) mg/dL Magnesium (1.6-2.3) mg/dL Total Bilirubin (0.2-1.3) mg/dL AST (14-36) U/L ALT (4-34) U/L Alkaline Phosphatase (38-126) U/L Troponin I <0.012 (0.000-0.034) ng/mL NT-Pro-B Natriuret Pep pg/mL Total Protein (6.3-8.2) g/dL Albumin (3.5-5.0) g/dL - EKG Data -: EKG Interpreted by Me (EKG sinus 80 VT 156 QRS 81 QTc 391) - Radiology Data Radiology results: report reviewed (Chest x-ray is positive for pneumonia), image reviewed Critical Care Time Critical Care Time: Yes Total Critical Care Time: 31 Disposition Clinical Impression: COPD (chronic obstructive pulmonary disease), Hypoxia, BiPAP (biphasic positive airway pressure) dependence, Acute respiratory distress Disposition: [facility]MITT[facility] Condition: Serious Is patient prescribed a controlled substance at d/c from ED?: No Time of Disposition: 01:00
[2024-09-05] MEDS: MORPHINE SULFATE 4 MG/ML SYRINGE IVP STA (00:04)
[2024-09-05] MEDS: SODIUM CHLORIDE 0.9% 1,000 ML IV ONE (00:07)
[2024-09-05] MEDS: IPRATROPIUM 0.5 MG/2.5 ML NEBU INHALATION STA (00:09)
[2024-09-05] MEDS: ALBUTEROL NEBULIZED 2.5 MG/3 ML INHALATION STA (00:09)
[2024-09-05] MEDS: LORazepam 1 MG/0.5 ML VIAL IV STA (00:11)
[2024-09-05 00:17] LABS: Basophils # (A) 0.05 10*3/uL (0.00-0.10); Basophils % (A) 0.8 %; Eosinophils # (A) 0.27 10*3/uL (0.04-0.35); Eosinophils % (A) 4.6 %; HCT 32.7 % (37.2-46.3); HGB 10.4 g/dL (12.0-15.0); Lymphocytes # (A) 2.58 10*3/uL (0.90-5.00); Lymphocytes % (A) 43.8 %; MCH 30.5 pg (27.0-32.0); MCHC 31.8 g/dL (32.0-37.0); MCV 95.9 fL (80.0-97.0); Mean Platelet Volume 8.7 fL (9.5-12.2); Monocytes # (A) 0.62 10*3/uL (0.20-1.00); Monocytes % (A) 10.5 %; Neutrophils # (A) 2.35 10*3/uL (1.80-7.70); Platelet Count 282 10*3/uL (140-440); RBC 3.41 10*6/uL (4.10-5.20); RDW 13.4 % (11.5-14.5); WBC 5.89 10*3/uL (4.50-10.00)
[2024-09-05 00:31] LABS: INR 0.9 (<1.2); Partial Thromboplastin Time 23.9 sec (22.0-30.0)
[2024-09-05 00:35] LABS: ALT 16 U/L (4-34); AST 29 U/L (14-36); African American GFR (CKD) >90 (>60 ml/min/1.73 sqM); Alkaline Phosphatase 67 U/L (38-126); Anion Gap 5 mmol/L; Blood Urea Nitrogen 11 mg/dL (7-17); Calcium 9.6 mg/dL (8.4-10.2); Carbon Dioxide 38 mmol/L (22-30); Chloride 93 mmol/L (98-107); Glucose 91 mg/dL (74-99); Magnesium 2.1 mg/dL (1.6-2.3); Non-African American GFR(CKD) >90 (>60 ml/min/1.73 sqM); Potassium 4.6 mmol/L (3.5-5.1); Sodium 136 mmol/L (137-145); Total Bilirubin 0.4 mg/dL (0.2-1.3); Total Protein 6.5 g/dL (6.3-8.2)
[2024-09-05 00:43] LABS: NT-Pro-B-Type Natriuretic Pept 91 pg/mL
--- NOTE | 2024-09-05 01:15 | XR ---
EXAM: XR Chest, 1 View CLINICAL HISTORY: XR Reason: sob TECHNIQUE: Frontal view of the chest. COMPARISON: March 28, 2024 FINDINGS: Lungs: Possible faint infiltrate in the right lower lobe. This is exaggerated by overlying soft tissue. Mildly hyperexpanded lungs suggesting emphysema. Pleural space: Slight blunting the costophrenic angles may be due to the hyperinflation versus trace bilateral pleural effusions. No pneumothorax. Heart: Unremarkable. No cardiomegaly. Mediastinum: Unremarkable. Normal mediastinal contour. Bones/joints: Unremarkable. No acute fracture. IMPRESSION: 1. Possible faint infiltrate in the right lower lobe. This is exaggerated by overlying soft tissue. 2. Mildly hyperexpanded lungs suggesting emphysema. 3. Slight blunting the costophrenic angles may be due to the hyperinflation versus trace bilateral pleural effusions.
[2024-09-05] MEDS ORDERED: PNEUMONIA PROTOCOL UTILIZED 1 EACH MISC PO PRN (01:19)
[2024-09-05] MEDS ORDERED: cefTRIAXone 2 GM in DEXTROSE 5% IN WATER 50 ML IVPB STA (01:23)
[2024-09-05] MEDS: SODIUM CHLORIDE 0.9% 1,000 ML IV SCH (02:21)
[2024-09-05] MEDS: IPRATROPIUM-ALBUTEROL 3 ML NEB INHALATION STA (03:08)
[2024-09-05] MEDS: AZITHROMYCIN 500 MG in SODIUM CHLORIDE 0.9% 250 ML IVPB STA (03:33)
--- NOTE | 2024-09-05 05:50 | P.CNPUL ---
History of Present Illness Consult date: 09/05/24 Requesting physician: Kyle Madsen Reason for consult: COPD Chief complaint: Shortness of breath History of present illness: Patient is a 53-year-old female with past medical history significant for COPD, ventilator dependent respiratory failure with previous tracheostomy and PEG tube with subsequent reversal, HIV on Biktarvy, CVA, hypertension. Patient has stage IV COPD with an FEV1 22% of predicted. She has seen Dr. Guardado in the pulmonary office for management of her very severe COPD. She is chronically oxygen pendant on 2 L/min nasal cannula while at home. Maintained on Trelegy maintenance inhaler and as needed DuoNebs. Also, has a CPAP/BiPAP that she uses at night. Brought in to [facility] by EMS last night in a state of respiratory distress. She was initially placed on BiPAP. Chest x-ray done on admission showing hyperinflation consistent with her very severe COPD/emphysema. Possible subtle right lower lobe infiltrate. She was empirically started on antibiotics in the ED. Labs including a CBC with a WBC count of 5.9, hemoglobin 10.4, platelets 282. CMP: Sodium 136, potassium 4.6, chloride 93, serum bicarb 38, BUN 11, creatinine 0.54, glucose 91. Troponin less than 0.012. NT proBNP low. Patient currently being evaluated in the emergency department, room 5. She has been transitioned to 3 L/min nasal cannula. SpO2 is reading 99% on b edside monitor. She does not appear to be any distress. BiPAP is on standby with settings 10/5 and FiO2 40%. States that her difficulty in breathing started a few days ago. Of note, she was unable to get her Trelegy inhaler from the pharmacy for the last week. She has been more short of breath over the last several days with associated chest tightness and increased dry cough. Denies sick contacts, she lives at home alone. Denies any fevers or chills. Denies any sputum production, hemoptysis, chest pain. No longer smokes cigarettes. Current vital signs: Temperature 98.1 F, heart rate 76 bpm, blood pressure 131/88 mmHg, nontachypneic, SpO2 recorded at 99% on 3 L/min nasal cannula. Review of Systems Constitutional: Denies chills, Denies fever, Denies poor appetite, Denies weight gain, Denies weight loss Ears, nose, mouth and throat: Denies headache, Denies nasal congestion, Denies nasal discharge, Denies post-nasal drip, Denies sinus pain, Denies sinus pressure, Admits sore throat Cardiovascular: Reports leg edema, Denies chest pain, Denies orthopnea, Denies palpitations, Denies paroxysmal nocturnal dyspnea Respiratory: See HPI Gastrointestinal: Denies abdominal pain, Denies constipation, Denies diarrhea, Denies loss of appetite, Denies nausea, Denies vomiting Genitourinary: Denies dysuria Musculoskeletal: Denies limitation of motion Integumentary: Denies rash Neurological: Denies balance difficulties, Denies confusion, Denies head injury, Denies headaches, Denies seizures, Denies syncope, Denies visual changes Psychiatric: Denies anxiety, Denies depression Past Medical History Past Medical History: Asthma, Blood Disorder, COPD, CVA/TIA, Hypertension Additional Past Medical History / Comment(s): HIV, anxiety History of Any Multi-Drug Resistant Organisms: None Reported Past Surgical History: No Surgical Hx Reported Additional Past Surgical History / Comment(s): peg and tracheostomy reversal October 2023 Past Anesthesia/Blood Transfusion Reactions: No Reported Reaction Past Psychological History: Anxiety, Depression, Panic Disorder Smoking Status: Former smoker Past Alcohol Use History: None Reported Past Drug Use History: None Reported - Past Family History Mother History Unknown: Yes Family Medical History: CVA/TIA Father Family Medical History: Cancer Medications and Allergies Home Medications Medication Instructions Recorded Confirmed Type Albuterol Sulfate [Albuterol 2 puff INHALATION RT-Q4H PRN 03/14/22 06/10/24 History Sulfate Hfa] Bictegrav/Emtricit/Tenofov Ala 1 tab PO DAILY 08/10/23 06/10/24 History [Biktarvy 50-200-25 mg Tablet] Ipratropium-Albuterol Nebulize 3 ml INHALATION RT-Q4H PRN 08/10/23 06/10/24 History [Duoneb 0.5 mg-3 mg/3 ml Soln] Fluticasone Propionate [Flonase 1 spr EA NOSTRIL DAILY PRN 11/27/23 06/10/24 History Allergy Relief] Fluticasone/Umeclidin/Vilanter 1 puff INHALATION RT-DAILY 01/04/24 06/10/24 History [Trelegy Ellipta 200-62.5-25] Mirtazapine [Remeron] 15 mg PO HS 01/04/24 06/10/24 History Ipratropium-Albuterol Nebulize 3 ml INHALATION RT-QID each 01/21/24 06/10/24 Rx [Duoneb 0.5 mg-3 mg/3 ml Soln] atenoloL [Tenormin] 50 mg PO DAILY #30 tab 02/14/24 06/10/24 Rx HYDROcodone/APAP 5-325MG [[place] 1 tab PO Q6HR PRN 03/03/24 06/10/24 History 5-325] Spironolactone [Aldactone] 25 mg PO DAILY 14 Days #14 tab 03/14/24 06/10/24 Rx ALPRAZolam [Xanax] 1 mg PO BID 03/29/24 06/10/24 History predniSONE [Deltasone] 10 mg PO DAILY 12 Days #30 tab 06/12/24 Rx Allergies Allergy/AdvReac Type Severity Reaction Status Date / Time Penicillins Allergy Anaphylaxis Verified 09/04/24 23:59 Physical Exam Vitals: Vital Signs Temp Pulse Resp BP Pulse Ox FiO2 09/05/24 03:26 77 09/05/24 03:12 98 09/05/24 03:10 72 09/05/24 01:36 100 09/05/24 01:00 74 18 123/108 100 09/05/24 00:30 76 18 156/100 100 09/05/24 00:19 74 09/05/24 00:12 73 09/04/24 23:56 98.1 F 75 24 185/109 100 40 Intake and Output 09/04/24 09/04/24 09/05/24 14:59 22:59 06:59 Other: Weight 64.546 kg GENERAL EXAM: Alert, 53-year-old female, without signs of CO2 narcosis, on 3 L/min nasal cannula, comfortable in no apparent distress. BiPAP is on standby. HEAD: Normocephalic and atraumatic EYES: Normal reaction of pupils, equal size. NOSE: Clear with pink turbinates. THROAT: No erythema or exudates. NECK: No masses, no JVD. CHEST: No chest wall deformity. LUNGS: Equal air entry with diminished lung sounds bilaterally throughout. No conversational dyspnea or accessory muscle use.. CVS: S1 and S2 normal with no audible murmur, regular rhythm. No extra heart sounds ABDOMEN: No hepatosplenomegaly, active bowel sounds, no guarding or rigidity. SPINE: No scoliosis or deformity SKIN: No rashes CENTRAL NERVOUS SYSTEM: No focal deficits, tone is normal in all 4 extremities. EXTREMITIES: There is no peripheral edema, clubbing, or cyanosis. Peripheral pulses are intact. Results - Laboratory Findings CBC and BMP: 09/04/24 23:50 09/04/24 23:50 PT/INR, D-dimer PT 10.0 sec (10.0-12.5) 09/04/24 23:50 INR 0.9 (<1.2) 09/04/24 23:50 Abnormal lab findings: Abnormal Labs 09/04/24 09/04/24 23:50 23:50 RBC 3.41 L Hgb 10.4 L Hct 32.7 L MCHC 31.8 L MPV 8.7 L Sodium 136 L Chloride 93 L Carbon Dioxide 38 H - Diagnostic Findings Chest x-ray: image reviewed Assessment and Plan Assessment: Acute exacerbation of COPD, chest x-ray showing marked hyperinflation consistent with COPD. Possible subtle right lower lobe infiltrate. Acute on chronic hypoxemic respiratory failure, secondary to above, has previously been transitioned off BiPAP and is currently on 3 L/min nasal cannula. History of ventilator dependent respiratory failure with previous tracheostomy and PEG tube insertion status post decannulation Very severe underlying COPD with an FEV1 22% of predicted Chronic hypoxemic respiratory failure, normally maintained on 2 L/min nasal cannula 21/11 Former tobacco dependence HIV/acquired immunodeficiency syndrome, maintained on Biktarvy, most recent CD4 count 47 Hypertension History of CVA/TIA Plan: Patient has been transitioned off BiPAP and is currently on 3 L/min nasal cannula. No evidence of CO2 narcosis Continue to use BiPAP at bedtime Chest x-ray showing marked hyperinflation and possible subtle right lower lobe infiltrate. Previously started empiric antibiotics in the ED. Check procalcitonin level Exacerbation likely secondary to noncompliance with her Trelegy Inhaler Continue combination of bronchodilators [id number], Symbicort inhaler, and IV Solu-Medrol We will continue to follow, additional recommendations forthcoming. I have personally seen and examined the patient, performed the documentation and the assessment and plan as written. Number of minutes spent on the visit:20 This dictation was produced using [employer] dictation software please excuse grammatical errors Time with Patient: Greater than 30
[2024-09-05] MEDS: methylPREDNISolone SOD SUCCI 125 MG/2 ML VIAL IV SCH (06:49)
[2024-09-05] MEDS: SPIRONOLACTONE 25 MG TAB PO SCH (08:16)
[2024-09-05] MEDS: atenoloL 50 MG TAB PO SCH (08:16)
[2024-09-05] MEDS: SYMBICORT 160-4.5 MCG INHALER INHALATION SCH (08:28)
[2024-09-05] MEDS: ALBUTEROL NEBULIZED 2.5 MG/3 ML INHALATION SCH (08:28)
[2024-09-05] MEDS ORDERED: IPRATROPIUM-ALBUTEROL 3 ML NEB INHALATION PRN (08:40)
[2024-09-05] MEDS: NON FORMULARY DRUG (Bictegrav/Emtricit/Tenofov Ala [Biktarvy 50-200-25 Mg Tablet] 1 EACH T PO SCH (09:22)
[2024-09-05] MEDS: ALPRAZolam 1 MG TAB PO SCH (09:36)
--- NOTE | 2024-09-05 09:52 | P.HPIM ---
History of Present Illness H&P Date: 09/05/24 Neli Veloz is a 53-year-old female patient of Dr. Nicholson who presented with complaints of severe shortness of breath. Patient has a past medical history of COPD maintained on home O2, previous respiratory failure with tracheostomy and PEG tube with decannulation and PEG tube removal. Additional medical history includes HIV, CVA and essential hypertension. Testing in emergency room revealed chest x-ray showing possible possible faint infiltrate in the right lower lobe, mildly hyperexpanded lungs suggesting emphysema slight blunting the costophrenic angles may be due to the hyperinflation. EKG completed showing sinus rhythm.. Lab work completed showing white blood cell 5.89, hemoglobin 10.4, creatinine 0.54, bun 11, CO2 38. Troponin negative. BNP 91. At this time patient will be admitted. Pulmonary services have been consulted. Patient started on IV antibiotics. Two-view chest x-ray and procalcitonin levels have been ordered. Patient also started on IV steroids. Blood and sputum cultures ordered. Patient denies chest pain. Patient denies nausea vomiting or diarrhea. Patient denies any urinary burning or frequency. Current vital signs temp 98.1, heart rate 80, respiratory rate 16, blood pressure 125/76 with pulse ox 99% on 3 L. Review of Systems Please refer to HPI otherwise unremarkable Past Medical History Past Medical History: Asthma, Blood Disorder, COPD, CVA/TIA, Hypertension Additional Past Medical History / Comment(s): HIV, anxiety History of Any Multi-Drug Resistant Organisms: None Reported Past Surgical History: No Surgical Hx Reported Additional Past Surgical History / Comment(s): peg and tracheostomy reversal September/October 2023 Past Anesthesia/Blood Transfusion Reactions: No Reported Reaction Past Psychological History: Anxiety, Depression, Panic Disorder Smoking Status: Former smoker Past Alcohol Use History: None Reported Past Drug Use History: None Reported - Past Family History Mother History Unknown: Yes Family Medical History: CVA/TIA Father Family Medical History: Cancer Medications and Allergies Home Medications Medication Instructions Recorded Confirmed Type Bictegrav/Emtricit/Tenofov Ala 1 tab PO DAILY 08/10/23 09/05/24 History [Biktarvy 50-200-25 mg Tablet] Fluticasone Propionate [Flonase 1 spr EA NOSTRIL DAILY 11/27/23 09/05/24 History Allergy Relief] Fluticasone/Umeclidin/Vilanter 1 puff INHALATION RT-DAILY 01/04/24 09/05/24 History [Trelegy Ellipta 200-62.5-25] Mirtazapine [Remeron] 15 mg PO HS 01/04/24 09/05/24 History atenoloL [Tenormin] 50 mg PO DAILY #30 tab 02/14/24 09/05/24 Rx Spironolactone [Aldactone] 25 mg PO DAILY 14 Days #14 tab 03/14/24 09/05/24 Rx ALPRAZolam [Xanax] 1 mg PO BID 03/29/24 09/05/24 History Albuterol Nebulized [Ventolin 2.5 mg INHALATION RT-QID 09/05/24 09/05/24 History Nebulized] Allergies Allergy/AdvReac Type Severity Reaction Status Date / Time Penicillins Allergy Anaphylaxis Verified 09/05/24 08:30 Physical Exam Vitals: Vital Signs Temp Pulse Resp BP Pulse Ox FiO2 09/05/24 08:38 72 09/05/24 08:29 68 97 09/05/24 08:14 80 16 125/76 99 09/05/24 07:21 69 18 113/74 99 09/05/24 06:00 74 18 130/79 100 09/05/24 04:00 76 18 131/88 99 09/05/24 03:26 77 09/05/24 03:12 98 09/05/24 03:10 72 09/05/24 02:00 85 18 124/92 99 09/05/24 01:36 100 09/05/24 01:00 74 18 123/108 100 09/05/24 00:30 76 18 156/100 100 09/05/24 00:19 74 09/05/24 00:12 73 09/04/24 23:56 98.1 F 75 24 185/109 100 40 Intake and Output 09/04/24 09/05/24 09/05/24 22:59 06:59 14:59 Output Total 800 Balance -800 Output: Urine 800 Other: Weight 64.546 kg Head normocephalic Neck supple Lungs diminished bilaterally with with expiratory wheezing Heart regular rate and rhythm S1-S2, no rub or gallop Abdomen is soft nontender nondistended positive bowel sounds no hepatosplenomegaly Extremities no edema Neuro alert and orientated to 3 Results CBC & Chem 7: 09/04/24 23:50 09/04/24 23:50 Labs: Abnormal Lab Results - Last 24 Hours (Table) 09/04/24 09/04/24 Range/Units 23:50 23:50 RBC 3.41 L (4.10-5.20) 10*6/uL Hgb 10.4 L (12.0-15.0) g/dL Hct 32.7 L (37.2-46.3) % MCHC 31.8 L (32.0-37.0) g/dL MPV 8.7 L (9.5-12.2) fL Sodium 136 L (137-145) mmol/L Chloride 93 L (98-107) mmol/L Carbon Dioxide 38 H (22-30) mmol/L Assessment and Plan Assessment: Shortness of breath secondary to acute exacerbation of COPD Acute on chronic hypoxic respiratory failure maintained on home 3 L HIV acquired immunodeficiency syndrome Previous history of ventilator dependent respiratory failure requiring tracheostomy and PEG tube since reversed History of COPD History of CVA History of essential hypertension DVT prophylaxis Lovenox. GI prophylaxis Pepcid Pulmonary services consulted 2 view chest x-ray procalcitonin level ordered Sputum and blood cultures ordered Repeat labs ordered Patient to continue on DuoNeb breathing treatments, IV steroids and antibiotics Time with Patient: Greater than 30 (Greater than 60% of the total time spent in counseling and coordination of care)
[2024-09-05] MEDS: cefTRIAXone 2 GM in DEXTROSE 5% IN WATER 50 ML IVPB SCH (10:37)
[2024-09-05] MEDS: IPRATROPIUM-ALBUTEROL 3 ML NEB INHALATION SCH (12:35)
[2024-09-05] MEDS ORDERED: ALPRAZolam 1 MG TAB PO SCH (21:00)
[2024-09-05] MEDS: EMTRICITABINE PO SCH (22:02)
[2024-09-05] MEDS: [UNRECOGNIZED DRUG - OTHER] PO SCH (22:02)
[2024-09-05] MEDS: BICTEGRAVIR PO SCH (22:02)
[2024-09-05] MEDS: MIRTAZAPINE 15 MG TAB PO SCH (22:02)
--- NOTE | 2024-09-06 08:19 | XR ---
EXAMINATION TYPE: XR chest 1V portable DATE OF EXAM: 09/06/2024 6:37 AM COMPARISON: Multiple radiographs, with the most recent on 06/09/2024 TECHNIQUE: XR chest 1V portable Portable AP radiograph of the chest. CLINICAL INDICATION:Female, 53 years old with history of pneumonia; FINDINGS: Lungs/Pleura: There is no evidence of pleural effusion, focal consolidation, or pneumothorax. Hyperi nflation. Pulmonary vascularity: Unremarkable. Heart/mediastinum: Cardiomediastinal silhouette is unremarkable. Musculoskeletal: No acute osseous pathology. IMPRESSION: 1. No acute cardiopulmonary disease/process. 2. Possible COPD. [facility], , 09/06/2024 8:17 AM
[2024-09-06] MEDS: AZITHROMYCIN 500 MG in SODIUM CHLORIDE 0.9% 250 ML IVPB SCH (09:10)
[2024-09-06] MEDS: ENOXAPARIN 40 MG/0.4 ML SYRINGE SQ SCH (09:14)
[2024-09-06] MEDS: FAMOTIDINE 20 MG TAB PO SCH (09:14)
--- NOTE | 2024-09-06 09:27 | P.PN ---
Subjective Progress Note Date: 09/06/24 Neli Veloz is a 53-year-old female patient of Dr. Nicholson who presented with complaints of severe shortness of breath. Patient has a past medical history of COPD maintained on home O2, previous respiratory failure with tracheostomy and PEG tube with decannulation and PEG tube removal. Additional medical history includes HIV, CVA and essential hypertension. Testing in emergency room revealed chest x-ray showing possible possible faint infiltrate in the right lower lobe, mildly hyperexpanded lungs suggesting emphysema slight blunting the costophrenic angles may be due to the hyperinflation. EKG completed showing sinus rhythm.. Lab work completed showing white blood cell 5.89, hemoglobin 10. 4, creatinine 0.54, bun 11, CO2 38. Troponin negative. BNP 91. At this time patient will be admitted. Pulmonary services have been consulted. Patient started on IV antibiotics. Two-view chest x-ray and procalcitonin levels have been ordered. Patient also started on IV steroids. Blood and sputum cultures ordered. Patient denies chest pain. Patient denies nausea vomiting or diarrhea. Patient denies any urinary burning or frequency. Current vital signs temp 98.1, heart rate 80, respiratory rate 16, blood pressure 125/76 with pulse ox 99% on 3 L. On 09/06/2024 patient is alert and oriented x 3. Patient reports improvement with shortness of breath. Patient did wear BiPAP throughout the night. Patient remains on IV steroids. Pulmonary services following. Current vital signs temp 98.3, heart 69, respiratory rate 17, blood pressure 114/66 with pulse ox of 98% on room air Objective - Vital Signs Vital signs: Vital Signs Temp 98.3 F 09/06/24 07:39 Pulse 69 09/06/24 07:39 Resp 17 09/06/24 07:39 BP 114/66 09/06/24 07:39 Pulse Ox 98 09/06/24 07:39 FiO2 40 09/05/24 23:43 Intake & Output 09/05/24 09/06/24 09/06/24 18:59 06:59 18:59 Output Total 800 400 Balance -800 -400 Weight 69 kg Output: Urine 800 400 Other: Voiding Method Toilet External Catheter # Voids 1 - Exam Head normocephalic Neck supple Lungs diminished bilaterally with with expiratory wheezing Heart regular rate and rhythm S1-S2, no rub or gallop Abdomen is soft nontender nondistended positive bowel sounds no hepatosplenomegaly Extremities no edema Neuro alert and orientated to 3 - Labs CBC & Chem 7: 09/04/24 23:50 09/04/24 23:50 Assessment and Plan Assessment: Shortness of breath secondary to acute exacerbation of COPD Acute on chronic hypoxic respiratory failure maintained on home 3 L HIV acquired immunodeficiency syndrome Previous history of ventilator dependent respiratory failure requiring tracheostomy and PEG tube since reversed History of COPD History of CVA History of essential hypertension DVT prophylaxis Lovenox. GI prophylaxis Pepcid Pulmonary services consulted 2 view chest x-ray procalcitonin level ordered Sputum and blood cultures ordered Repeat labs ordered Patient to continue on DuoNeb breathing treatments, IV steroids and antibiotics
[2024-09-06] MEDS: FLUTICASONE NASAL 50MCG/SPRAY 16GM BTL EA NOSTRIL SCH (12:35)
--- NOTE | 2024-09-06 12:51 | P.PN ---
Subjective Progress Note Date: 09/06/24 Principal diagnosis: COPD exacerbation. Patient is a 53-year-old female with past medical history significant for COPD, ventilator dependent respiratory failure with previous tracheostomy and PEG tube with subsequent reversal, HIV on Biktarvy, CVA, hypertension. Patient has stage IV COPD with an FEV1 22% of predicted. She has seen Dr. Guardado in the pulmonary office for management of her very severe COPD. She is chronically oxygen pendant on 2 L/min nasal cannula while at home. Maintained on Trelegy maintenance inhaler and as needed DuoNebs. Also, has a CPAP/BiPAP that she uses at night. Brought in to [facility] by EMS last night in a state of respiratory distress. She was initially placed on BiPAP. Chest x-ray done on admission showing hyperinflation consistent with her very severe COPD/emphysema. Possible subtle right lower lobe infiltrate. She was empirically started on antibiotics in the ED. Labs including a CBC with a WBC count of 5.9, hemoglobin 10.4, platelets 282. CMP: Sodium 136, potassium 4.6, chloride 93, serum bicarb 38, BUN 11, creatinine 0.54, glucose 91. Troponin less than 0.012. NT proBNP low. Patient currently being evaluated in the emergency department, room 5. She has been transitioned to 3 L/min nasal cannula. SpO2 is reading 99% on bedside monitor. She does not appear to be any distress. BiPAP is on standby with settings 10/5 and FiO2 40%. States that her difficulty in breathing started a few days ago. Of note, she was unable to get her Trelegy inhaler from the pharmacy for the last week. She has been more short of breath over the last several days with associated chest tightness and increased dry cough. Denies sick contacts, she lives at home alone. Denies any fevers or chills. Denies any sputum production, hemoptysis, chest pain. No longer smokes cigarettes. Current vital signs: Temperature 98.1 F, heart rate 76 bpm, blood pressure 131/88 mmHg, nontachypneic, SpO2 recorded at 99% on 3 L/min nasal cannula. Progress note dated September 06, 2024. 53-year-old female well-known to our service. The patient has a history of severe COPD/stage IV, with an FEV1 that is 22% of predicted. The patient was admitted with a COPD exacerbation. She is seen today in room 463. She did use BiPAP last night, with settings of 10/5, and 40%. The patient's procalcitonin level was normal at less than 0.02. He is getting saline at 100 cc an hour. Antibiotics can be discontinued. She apparently ran out of her Trelegy at home, which caused her COPD to act up. She is currently on 3 L nasal cannula. She is in no distress. She is feeling better. No new labs today. Chest x-ray today, shows nothing acute, only COPD. Objective - Vital Signs Vital signs: Vital Signs Temp 98.3 F 09/06/24 07:39 Pulse 78 09/06/24 09:36 Resp 17 09/06/24 07:39 BP 114/66 09/06/24 07:39 Pulse Ox 98 09/06/24 07:39 FiO2 40 09/05/24 23:43 Intake & Output 09/05/24 09/06/24 09/06/24 18:59 06:59 18:59 Output Total 800 400 Balance -800 -400 Weight 69 kg Output: Urine 800 400 Other: Voiding Method Toilet External Catheter # Voids 1 - Exam No acute distress, oriented 3. Currently on 3 L. No respiratory distress. No conversational dyspnea. No use of accessory muscles. HEENT examination is grossly unremarkable. Mucous membranes are moist. No oral lesions. Neck supple. Full range of motion. No adenopathy thyromegaly or neck vein distention. Cardiovascular examination reveals regular rhythm rate. S1-S2 normal. No S3 or S4. No discernible murmur noted. Lungs reveal mild bilateral expiratory wheezes. Scattered expiratory rhonchi. No crackles. Breath sounds are equal bilaterally. Abdomen soft bowel sounds are heard. No masses or tenderness. Extremities are intact. No cyanosis clubbing or edema. Skin is without rash or lesion. Neurologic examination is brief but nonfocal. - Labs CBC & Chem 7: 09/04/24 23:50 09/04/24 23:50 Assessment and Plan Assessment: Acute exacerbation of COPD. Acute on chronic hypoxemic respiratory failure, secondary to above. History of ventilator dependent respiratory failure with previous tracheostomy and PEG tube insertion. Very severe underlying COPD with an FEV1 22% of predicted. Chronic hypoxemic respiratory failure, normally maintained on 2 L/min nasal cannula 24/7. Former tobacco dependence. HIV/acquired immunodeficiency syndrome. Hypertension. History of CVA/TIA. Plan: Plan dated September 06, 2024. The patient is on appropriate medications. Antibiotics can be discontinued. Her procalcitonin level was 0.02. She is getting saline at 100 cc an hour. She did use BiPAP last night, with settings of 10/5, and 40%. All labs, x-rays, and medications are reviewed. The patient is close to her baseline. She might be considered for possible discharge, today or tomorrow. No additional recommendations are made. Prognosis is guarded. Dictation was produced using [employer] software. Please excuse any grammatical, word or spelling errors. Time with Patient: Less than 30
[2024-09-07 08:13] VITALS: BP 111/67; TEMP 98.2
[2024-09-07 08:14] VITALS: RESP 16
[2024-09-07 08:20] VITALS: PULSE 80
[2024-09-07] MEDS: predniSONE 20 MG TAB PO SCH (09:06)
--- NOTE | 2024-09-07 10:41 | P.PN ---
Subjective Progress Note Date: 09/07/24 Patient is a 53-year-old female with past medical history significant for COPD, ventilator dependent respiratory failure with previous tracheostomy and PEG tube with subsequent reversal, HIV on Biktarvy, CVA, hypertension. Patient has stage IV COPD with an FEV1 22% of predicted. She has seen Dr. Guardado in the pulmonary office for management of her very severe COPD. She is chronically oxygen pendant on 2 L/min nasal cannula while at home. Maintained on Trelegy maintenance inhaler and as needed DuoNebs. Also, has a CPAP/BiPAP that she uses at night. Brought in to [facility] by EMS last night in a state of respiratory distress. She was initially placed on BiPAP. Chest x-ray done on admission showing hyperinflation consistent with her very severe COPD/emphysema. Possible subtle right lower lobe infiltrate. She was empirically started on antibiotics in the ED. Labs including a CBC with a WBC count of 5.9, hemoglobin 10.4, platelets 282. CMP: Sodium 136, potassium 4.6, chloride 93, serum bicarb 38, BUN 11, creatinine 0.54, glucose 91. Troponin less than 0.012. NT proBNP low. Patient currently being evaluated in the emergency department, room 5. She has been transitioned to 3 L/min nasal cannula. SpO2 is reading 99% on bedside monitor. She does not appear to be any distress. BiPAP is on standby with settings 10/5 and FiO2 40%. States that her difficulty in breathing started a few days ago. Of note, she was unable to get her Trelegy inhaler from the pharmacy for the last week. She has been more short of breath over the last several days with associated chest tightness and increased dry cough. Denies sick contacts, she lives at home alone. Denies any fevers or chills. Denies any sputum production, hemoptysis, chest pain. No longer smokes cigarettes. Current vital signs: Temperature 98.1 F, heart rate 76 bpm, blood pressure 131/88 mmHg, nontachypneic, SpO2 recorded at 99% on 3 L/min nasal cannula. Progress note dated September 06, 2024. 53-year-old female well-known to our service. The patient has a history of severe COPD/stage IV, with an FEV1 that is 22% of predicted. The patient was admitted with a COPD exacerbation. She is seen today in room 463. She did use BiPAP last night, with settings of 10/5, and 40%. The patient's procalcitonin level was normal at less than 0.02. He is getting saline at 100 cc an hour. Antibiotics can be discontinued. She apparently ran out of her Trelegy at home, which caused her COPD to act up. She is currently on 3 L nasal cannula. She is in no distress. She is feeling better. No new labs today. Chest x-ray today, shows nothing acute, only COPD. The patient is seen today September 07, 2024 in follow-up on the regular medical floor. She is currently sitting up at the bedside. Awake and alert in no acute distress. Maintaining good O2 saturations in the 90s on 2 L/min per nasal cannula. She did not utilize BiPAP last evening. No IV fluids. She is continued on DuoNeb inhalations, Symbicort, prednisone taper. Blood culture revealed no growth. Procalcitonin was negative at less than 0.20. Objective - Vital Signs Vital signs: Vital Signs Temp 98.2 F 09/07/24 07:28 Pulse 80 09/07/24 08:27 Resp 16 09/07/24 07:28 BP 111/67 09/07/24 07:28 Pulse Ox 96 09/07/24 07:28 FiO2 40 09/05/24 23:43 Intake & Output 09/06/24 09/07/24 09/07/24 18:59 06:59 18:59 Intake Total 360 Balance 360 Weight 70 kg Intake: Oral 360 Other: Voiding Method Toilet Toilet External Catheter # Voids 3 2 # Bowel Movements 1 - Exam GENERAL EXAM: Alert, active, 53-year-old female, on 2 L nasal cannula, comfortable in no apparent distress. HEAD: Normocephalic. EYES: Normal reaction of pupils, equal size. NOSE: Clear with pink turbinates. THROAT: No erythema or exudates. NECK: No masses, no JVD. CHEST: No chest wall deformity. LUNGS: Equal air entry with no crackles, wheeze, rhonchi or dullness. CVS: S1 and S2 normal with no audible murmur, regular rhythm. ABDOMEN: No hepatosplenomegaly, normal bowel sounds, no guarding or rigidity. SPINE: No scoliosis or deformity SKIN: No rashes CENTRAL NERVOUS SYSTEM: No focal deficits, tone is normal in all 4 extremities. EXTREMITIES: There is no peripheral edema. No clubbing, no cyanosis. Peripheral pulses are intact. - Labs CBC & Chem 7: 09/04/24 23:50 09/04/24 23:50 Labs: Microbiology - Last 24 Hours (Table) 09/05/24 02:15 Blood Culture - Preliminary Blood Assessment and Plan Assessment: Acute exacerbation of COPD. Acute on chronic hypoxemic respiratory failure, secondary to above. History of ventilator dependent respiratory failure with previous tracheostomy and PEG tube insertion. Very severe underlying COPD with an FEV1 22% of predicted. Chronic hypoxemic respiratory failure, normally maintained on 2 L/min nasal cannula 21/11. Former tobacco dependence. HIV/acquired immunodeficiency syndrome. Hypertension. History of CVA/TIA. Plan: The patient was seen and evaluated Medications reviewed Stable on 2 L nasal cannula Cleared for discharge Continue her home pulmonary medications/oxygen Complete a prednisone taper Follow up in our office in 1 week I have personally seen and examined the patient, performed the documentation and the assessment and plan as written. Number of minutes spent on the visit: 10 Dictation was produced using [employer] dictation software. Please excuse any grammatical, word or spelling errors.
[2024-09-07 11:02] LABS: ALT 34 U/L (8-44); AST 39 U/L (13-35); Albumin 3.7 g/dL (3.8-4.9); Albumin/Globulin Ratio 2.06 Ratio (1.60-3.17); Alkaline Phosphatase 61 U/L (41-126); Calcium 8.6 mg/dL (8.7-10.3); Carbon Dioxide 26.3 mmol/L (21.6-31.8); Chloride 102 mmol/L (96-109); Globulin 1.8 g/dL (1.6-3.3); Glucose 200 mg/dL (70-110); Potassium 4.1 mmol/L (3.5-5.5); Sodium 140 mmol/L (135-145); Total Bilirubin <0.2 mg/dL (0.3-1.2); Total Protein 5.5 g/dL (6.2-8.2)
--- NOTE | 2024-09-07 12:09 | P.DS ---
Providers Date of admission: 09/05/24 01:20 Expected date of discharge: 09/07/24 Attending physician: Yvonne Teixeira Consults: 09/05/24 01:19 Consult Physician Routine Consulting Provider: Davin Pro Consult Reason/Comments: copd Do you want consulting provider notified?: Yes Primary care physician: Zeina Aguilar Hospital Course: Diagnosis on discharge: Shortness of breath secondary to acute exacerbation of COPD Acute on chronic hypoxic respiratory failure maintained on home 3 L HIV acquired immunodeficiency syndrome Previous history of ventilator dependent respiratory failure requiring tracheostomy and PEG tube since reversed History of COPD History of CVA History of essential hypertension Hospital course: Neli Veloz is a 53-year-old female patient of Dr. Nicholson who presented with complaints of severe shortness of breath. Patient has a past medical history of COPD maintained on home O2, previous respiratory failure with tracheostomy and PEG tube with decannulation and PEG tube removal. Additional medical history includes HIV, CVA and essential hypertension. Testing in emergency room revea led chest x-ray showing possible possible faint infiltrate in the right lower lobe, mildly hyperexpanded lungs suggesting emphysema slight blunting the costophrenic angles may be due to the hyperinflation. EKG completed showing sinus rhythm.. Lab work completed showing white blood cell 5.89, hemoglobin 10.4, creatinine 0.54, bun 11, CO2 38. Troponin negative. BNP 91. At this time patient will be admitted. Pulmonary services have been consulted. Patient started on IV antibiotics. Two-view chest x-ray and procalcitonin levels have been ordered. Patient also started on IV steroids. Blood and sputum cultures ordered. Patient denies chest pain. Patient denies nausea vomiting or diarrhea. Patient denies any urinary burning or frequency. Current vital signs temp 98.1, heart rate 80, respiratory rate 16, blood pressure 125/76 with pulse ox 99% on 3 L. On 09/06/2024 patient is alert and oriented x 3. Patient reports improvement with shortness of breath. Patient did wear BiPAP throughout the night. Patient remains on IV steroids. Pulmonary services following. Current vital signs temp 98.3, heart 69, respiratory rate 17, blood pressure 114/66 with pulse ox of 98% on room air On 09/07/2024 patient was seen and examined on the medical floor she is alert and oriented x 3 in no apparent distress she reports significant improvement in her shortness of breath, she has occasional cough otherwise she denies any complaint, there is no fever or chills no headache or dizziness no chest pain no palpitation no nausea or vomiting no abdominal pain no diarrhea no urinary symptoms. Patient was evaluated by pulmonary today and was cleared for discharge, she was given a prescription for a prednisone taper, she will be discharged to home today, she will follow-up with her primary care physician within 1 week. Patient Condition at Discharge: Serious Plan - Discharge Summary New Discharge Prescriptions: New Ipratropium-Albuterol Nebulize [Duoneb 0.5 mg-3 mg/3 ml Soln] 3 ml INHALATION RT-QID 30 Days #120 each predniSONE 10 mg PO DAILY 12 Days #30 tab Budesonide-Formot 160-4.5 Mcg [Symbicort 160-4.5 Mcg Inhaler] 2 puff INHALATION RT-BID 30 Days #120 each Continue Fluticasone Propionate [Flonase Allergy Relief] 1 spr EA NOSTRIL DAILY Fluticasone/Umeclidin/Vilanter [Trelegy Ellipta 200-62.5-25] 1 puff INHALATION RT-DAILY atenoloL [Tenormin] 50 mg PO DAILY #30 tab ALPRAZolam [Xanax] 1 mg PO BID Bictegrav/Emtricit/Tenofov Ala [Biktarvy 50-200-25 mg Tablet] 1 tab PO DAILY Mirtazapine [Remeron] 15 mg PO HS Spironolactone [Aldactone] 25 mg PO DAILY 14 Days #14 tab Discontinued Albuterol Nebulized [Ventolin Nebulized] 2.5 mg INHALATION RT-QID Discharge Medication List Bictegrav/Emtricit/Tenofov Ala [Biktarvy 50-200-25 mg Tablet] 1 tab PO DAILY 08/10/23 [History] Fluticasone Propionate [Flonase Allergy Relief] 1 spr EA NOSTRIL DAILY 11/27/23 [History] Fluticasone/Umeclidin/Vilanter [Trelegy Ellipta 200-62.5-25] 1 puff INHALATION RT-DAILY 01/04/24 [History] Mirtazapine [Remeron] 15 mg PO HS 01/04/24 [History] atenoloL [Tenormin] 50 mg PO DAILY #30 tab 02/14/24 [Rx] Spironolactone [Aldactone] 25 mg PO DAILY 14 Days #14 tab 03/14/24 [Rx] ALPRAZolam [Xanax] 1 mg PO BID 03/29/24 [History] Budesonide-Formot 160-4.5 Mcg [Symbicort 160-4.5 Mcg Inhaler] 2 puff INHALATION RT-BID 30 Days #120 each 09/07/24 [Rx] Ipratropium-Albuterol Nebulize [Duoneb 0.5 mg-3 mg/3 ml Soln] 3 ml INHALATION RT-QID 30 Days #120 each 09/07/24 [Rx] predniSONE 10 mg PO DAILY 12 Days #30 tab 09/07/24 [Rx] Follow up Appointment(s)/Referral(s): Zeina Aguilar MD [Primary Care Provider] - 1-2 days
[2024-09-07 13:21] LABS: Basophils # (A) 0.01 X 10*3/uL (0.00-0.10); Basophils % (A) 0.2 %; Eosinophils # (A) 0 X 10*3/uL (0.04-0.35); Eosinophils % (A) 0 %; HCT 26.8 % (37.2-46.3); HGB 8.1 g/dL (12.0-15.0); Lymphocytes # (A) 1.01 X 10*3/uL (0.90-5.00); MCH 29.9 pg (27.0-32.0); MCHC 30.2 g/dL (32.0-37.0); MCV 98.9 FL (80.0-97.0); Mean Platelet Volume 10.2 FL (9.5-12.2); Monocytes # (A) 0.53 X 10*3/uL (0.20-1.00); Monocytes % (A) 8.4 %; NRBC Per 100 WBC 0 X 10*3/uL (0.00-0.01); Neutrophils # (A) 4.73 X 10*3/uL (1.80-7.70); Neutrophils % (A) 74.6 %; Platelet Count 233 X 10*3/uL (140-440); RBC 2.71 X 10*6/uL (4.10-5.20); RBC Morphology Normal (Normal); RDW 14.4 % (11.5-14.5); WBC 6.33 X 10*3/uL (4.50-10.00)
== END 2024-09-07 14:22 | disposition home or self-care (01) | DRG 189 ==
LOC: EC 23:49 → 3SCARD 09-05 01:20 → 4SSUR 09-05 12:59
PROVIDERS: ADMIT Internal Medicine; ATTEND Internal Medicine
PROC: 5A09457 Assistance with Respiratory Ventilation, 24-96 Consecutive Hours, Continuous Positive Airway Pressure (ICD-10-PCS; principal; 2024-09-04)
DX: J96.21 Acute and chronic respiratory failure with hypoxia (principal); B20 Human immunodeficiency virus [HIV] disease; J44.1 Chronic obstructive pulmonary disease with (acute) exacerbation; Z93.0 Tracheostomy status; I10 Essential (primary) hypertension; J43.9 Emphysema, unspecified; Z99.81 Dependence on supplemental oxygen; Z86.73 Personal history of transient ischemic attack (TIA), and cerebral infarction without residual deficits; Z88.0 Allergy status to penicillin; Z87.891 Personal history of nicotine dependence; Z91.199 Patient's noncompliance with other medical treatment and regimen due to unspecified reason; Z79.899 Other long term (current) drug therapy
CPT/HCPCS: 36415; 71045; 80053; 83605; 83735; 83880; 84145; 84484; 85025; 85610; 85730; 87040; 87070; 87205; 87449; 93005; 94640; 94660; 94760; 96361; 96365; 96366; 96367; 96375; 96376; 99291